=== PATIENT | female | born 1965 | race Caucasian/White ===

== ENCOUNTER 2019-07-27 08:03 | Emergency (ER) | payer OTHER ==
[~2019-07-27] VITALS: Ht 157.5 cm; Wt 99.8 kg
--- OUTSIDE RECORDS SUMMARY | ~2019-07-27 | XMS | Encounter Summary ---
Demographics + + + | Address | [address] | | | [place] [address] | + + + | Home Phone | | + + + | Preferred Language | Unknown | + + + | Marital Status | Unknown | + + + | Mandaen Affiliation | Unknown | + + + | Race | Unknown | + + + | Ethnic Group | Unknown | + + + Author + + + | Author | [facility] | | | and [place] | + + + | Organization | [facility] | | | and [place] | + + + | Address | Unknown | + + + | Phone | Unavailable | + + + Care Team Providers + +------+ + | Care Ergonomist Name | Role | Phone | + +------+ + PCP | Unavailable | + +------+ + Encounter Details +--------+ + + + + | Date | Type | Department | Care Team | Description | +--------+ + + + + | 07/17/ | Hospital | [facility] | [place] | | | 1999 | Encounter | MED CTR GENERIC OP | MD [address] [facility] | | | | | CONV DEPT [address] | [place], [place] | | | | | [place], | [address] | | | | | [place] [address] | | | | | | [phone] | | | +--------+ + + + + Social History + +-------+ +--------+------+ | Tobacco Use | Types | Packs/Day | Years | Date | | | | | Used | | + +-------+ +--------+------+ | Never Assessed | | | | | + +-------+ +--------+------+ + + + | Sex Assigned at | Date Recorded | | | | + + + | Not on file | | + + + + + + + | Job Start Date | Occupation | Industry | + + + + | Not on file | Not on file | Not on file | + + + + + + + + | Travel History | Travel Start | Travel End | + + + + + + | No recent travel history available. | + + documented as of this encounter Plan of Treatment Not on filedocumented as of this encounter Visit Diagnoses Not on filedocumented in this encounter"
--- OUTSIDE RECORDS SUMMARY | ~2019-07-27 | XMS | Encounter Summary ---
Demographics + + + | Address | [address] | | | [place] [address] | + + + | Home Phone | | + + + | Preferred Language | Unknown | + + + | Marital Status | Unknown | + + + | Latter-Day Affiliation | Unknown | + + + | Race | Unknown | + + + | Ethnic Group | Unknown | + + + Author + + + | Author | [facility] | | | and [place] | + + + | Organization | [facility] | | | and [place] | + + + | Address | Unknown | + + + | Phone | Unavailable | + + + Care Team Providers + +------+ + | Care Crawler Tractor Operator Name | Role | Phone | + +------+ + PCP | Unavailable | + +------+ + Encounter Details +--------+ + + + + | Date | Type | Department | Care Team | Description | +--------+ + + + + | 03/20/ | Hospital | [facility] | | | | 2008 - | Encounter | MED CTR CANCER | | | | | | CENTER [facility] [address] [place] | | | | 04/06/ | | [place] | | | | 2008 | | [address] | | | | | | [phone] | | | +--------+ + + + [...]
--- OUTSIDE RECORDS SUMMARY | ~2019-07-27 | XMS | Encounter Summary ---
Demographics + + + | Address | [address] | | | [place] [address] | + + + | Home Phone | | + + + | Preferred Language | Unknown | + + + | Marital Status | Unknown | + + + | Hindu Affiliation | Unknown | + + + | Race | Unknown | + + + | Ethnic Group | Unknown | + + + Author + + + | Author | [facility] | | | and [place] | + + + | Organization | [facility] | | | and [place] | + + + | Address | Unknown | + + + | Phone | Unavailable | + + + Care Team Providers + +------+ + | Care Refinery Operator Reforming Unit Name | Role | Phone | + +------+ + PCP | Unavailable | + +------+ + Encounter Details +--------+ + + + + | Date | Type | Department | Care Team | Description | +--------+ + + + + | 05/18/ | Hospital | [facility] | | | | 2001 - | Encounter | MED CTR CANCER | | | | | | CENTER [facility] [place] | | | | 08/16/ | | [place] | | | | 2001 | | [address] | | | | | | [phone] | | | +--------+ + + + [...]
--- OUTSIDE RECORDS SUMMARY | ~2019-07-27 | XMS | Encounter Summary ---
Demographics + + + | Address | [address] | | | [place] [address] | + + + | Home Phone | | + + + | Preferred Language | Unknown | + + + | Marital Status | Unknown | + + + | Nondenominational Affiliation | Unknown | + + + | Race | Unknown | + + + | Ethnic Group | Unknown | + + + Author + + + | Author | [facility] | | | and [place] | + + + | Organization | [facility] | | | and [place] | + + + | Address | Unknown | + + + | Phone | Unavailable | + + + Care Team Providers + +------+ + | Care Fisher Trawl Net Name | Role | Phone | + +------+ + PCP | Unavailable | + +------+ + Encounter Details +--------+ + + + + | Date | Type | Department | Care Team | Description | +--------+ + + + + | 06/04/ | Hospital | [facility] | | | | 2005 - | Encounter | MED CTR CANCER | | | | | | CENTER [address] | | | | 09/02/ | | [place] | | | | 2005 | | [address] | | | | | | [phone] | | | +--------+ + + + [...]
--- OUTSIDE RECORDS SUMMARY | ~2019-07-27 | XMS | Encounter Summary ---
Demographics + + + | Address | [address] | | | [place] [address] | + + + | Home Phone | | + + + | Preferred Language | Unknown | + + + | Marital Status | Unknown | + + + | Mandaen Affiliation | Unknown | + + + | Race | Unknown | + + + | Ethnic Group | Unknown | + + + Author + + + | Author | [facility] | | | and [place] | + + + | Organization | [facility] | | | and [place] | + + + | Address | Unknown | + + + | Phone | Unavailable | + + + Care Team Providers + +------+ + | Care Wet Wash Assembler Name | Role | Phone | + +------+ + PCP | Unavailable | + +------+ + Encounter Details +--------+ + + + + | Date | Type | Department | Care Team | Description | +--------+ + + + + | 03/20/ | Hospital | [facility] | | | | 2008 - | Encounter | MED CTR CANCER | | | | | | CENTER [facility] [place] | | | | 04/06/ | | [place] | | | | 2008 | | [address] | | | | | | [phone] | | | +--------+ + + + [...]
--- OUTSIDE RECORDS SUMMARY | ~2019-07-27 | XMS | Encounter Summary ---
Demographics + + + | Address | [address] | | | [place] [address] | + + + | Home Phone | | + + + | Preferred Language | Unknown | + + + | Marital Status | Unknown | + + + | Cheondoism Affiliation | Unknown | + + + | Race | Unknown | + + + | Ethnic Group | Unknown | + + + Author + + + | Author | [facility] | | | and [place] | + + + | Organization | [facility] | | | and [place] | + + + | Address | Unknown | + + + | Phone | Unavailable | + + + Care Team Providers + +------+ + | Care Redrying Machine Operator Name | Role | Phone | + +------+ + PCP | Unavailable | + +------+ + Encounter Details +--------+ + + + + | Date | Type | Department | Care Team | Description | +--------+ + + + + | 05/07/ | Hospital | [facility] | | | | 2006 | Encounter | MED CTR CANCER | | | | | | CENTER [address] | | | | | | [place] | | | | | | [address] | | | | | | [phone] | | | +--------+ + + + [...]
--- OUTSIDE RECORDS SUMMARY | ~2019-07-27 | XMS | Encounter Summary ---
Demographics + + + | Address | [address] | | | [place] [address] | + + + | Home Phone | | + + + | Preferred Language | Unknown | + + + | Marital Status | Unknown | + + + | Protestant Affiliation | Unknown | + + + | Race | Unknown | + + + | Ethnic Group | Unknown | + + + Author + + + | Author | [facility] | | | and [place] | + + + | Organization | [facility] | | | and [place] | + + + | Address | Unknown | + + + | Phone | Unavailable | + + + Care Team Providers + +------+ + | Care Tumblers Supervisor Name | Role | Phone | + +------+ + PCP | Unavailable | + +------+ + Encounter Details +--------+ + + + + | Date | Type | Department | Care Team | Description | +--------+ + + + + | 11/06/ | Hospital | [facility] | | | | 2005 - | Encounter | MED CTR GENERIC OP | | | | | | CONV DEPT [address] | | | | 12/05/ | | [place], | | | | 2005 | | [place] [address] | | | | | | [phone] | | | +--------+ + + + [...]
--- OUTSIDE RECORDS SUMMARY | ~2019-07-27 | XMS | Clinical Summary ---
Demographics + + + | Address | [address] | | | [place] [address] | + + + | Home Phone | | + + + | Preferred Language | Unknown | + + + | Marital Status | Unknown | + + + | Yazdanism Affiliation | Unknown | + + + | Race | Unknown | + + + | Ethnic Group | Unknown | + + + Author + + + | Author | [facility] | | | and [place] | + + + | Organization | [facility] | | | and [place] | + + + | Address | Unknown | + + + | Phone | Unavailable | + + + Care Team Providers + +------+ + | Care Buffer Inflated Pad Name | Role | Phone | + +------+ + PCP | Unavailable | + +------+ + Allergies Not on File Medications Not on file Active Problems Not on file Social History + +-------+ +--------+------+ | Tobacco [...] recent travel history available. | + + Last Filed Vital Signs Not on file Plan of Treatment + + + + + | Health Maintenance | Due Date | Last Done | Comments | + + + + + | Vaccine: | | | | | Dtap/Tdap/Td (1 - | 2 | | | | Tdap) | | | | + + + + + | Cervical Cancer | | | | | Screening (Pap) | 3 | | | + + + + + | Vaccine: Zoster (1 | | | | | of 2) | 3 | | | + + + + + | Breast Cancer | | | | | Screening | 8 | | | + + + + + | Vaccine: Influenza | | | | | (#1) | 9 | | | + + + + + Results Not on filefrom Last 3 Months"
--- OUTSIDE RECORDS SUMMARY | ~2019-07-27 | XMS | Encounter Summary ---
Demographics + + + | Address | [address] | | | [place] [address] | + + + | Home Phone | | + + + | Preferred Language | Unknown | + + + | Marital Status | Unknown | + + + | Restorationism Affiliation | Unknown | + + + | Race | Unknown | + + + | Ethnic Group | Unknown | + + + Author + + + | Author | [facility] | | | and [place] | + + + | Organization | [facility] | | | and [place] | + + + | Address | Unknown | + + + | Phone | Unavailable | + + + Care Team Providers + +------+ + | Care Stock Digger Name | Role | Phone | + +------+ + PCP | Unavailable | + +------+ + Encounter Details +--------+ + + + + | Date | Type | Department | Care Team | Description | +--------+ + + + + | 07/17/ | Hospital | [facility] | [place] | | | 1999 | Encounter | MED CTR GENERIC OP | MD [address] [facility] | | | | | CONV DEPT [address] | [place], [place] | | | | | [place], | [address] | | | | | [place] [address] | | | | | | [phone] | | | +--------+ + + + [...]
--- OUTSIDE RECORDS SUMMARY | ~2019-07-27 | XMS | Encounter Summary ---
Demographics + + + | Address | [address] | | | [place] [address] | + + + | Home Phone | | + + + | Preferred Language | Unknown | + + + | Marital Status | Unknown | + + + | Faith Affiliation | Unknown | + + + | Race | Unknown | + + + | Ethnic Group | Unknown | + + + Author + + + | Author | [facility] | | | and [place] | + + + | Organization | [facility] | | | and [place] | + + + | Address | Unknown | + + + | Phone | Unavailable | + + + Care Team Providers + +------+ + | Care Shuttle Fitting Supervisor Name | Role | Phone | + +------+ + PCP | Unavailable | + +------+ + Encounter Details +--------+ + + + + | Date | Type | Department | Care Team | Description | +--------+ + + + + | 06/02/ | Hospital | [facility] | | | | 2002 - | Encounter | MED CTR CANCER | | | | | | CENTER [facility] | | | | 09/02/ | | [place] | | | | 2002 | | [address] | | | | | | [phone] | | | +--------+ + + + [...]
--- OUTSIDE RECORDS SUMMARY | ~2019-07-27 | XMS | Encounter Summary ---
Demographics + + + | Address | [address] | | | [place] [address] | + + + | Home Phone | | + + + | Preferred Language | Unknown | + + + | Marital Status | Unknown | + + + | Scientologist Affiliation | Unknown | + + + | Race | Unknown | + + + | Ethnic Group | Unknown | + + + Author + + + | Author | [facility] | | | and [place] | + + + | Organization | [facility] | | | and [place] | + + + | Address | Unknown | + + + | Phone | Unavailable | + + + Care Team Providers + +------+ + | Care Manager Chemistry Name | Role | Phone | + +------+ + PCP | Unavailable | + +------+ + Encounter Details +--------+ + + + + | Date | Type | Department | Care Team | Description | +--------+ + + + + | 10/26/ | Hospital | [facility] | | | | 2003 - | Encounter | MED CTR CANCER | | | | | | CENTER [facility] | | | | 02/18/ | | [place] | | | | 2003 | | [address] | | | | | | [phone] | | | +--------+ + + + [...]
--- OUTSIDE RECORDS SUMMARY | ~2019-07-27 | XMS | Encounter Summary ---
Demographics + + + | Address | [address] | | | [place] [address] | + + + | Home Phone | | + + + | Preferred Language | Unknown | + + + | Marital Status | Unknown | + + + | Zoroastrianism Affiliation | Unknown | + + + | Race | Unknown | + + + | Ethnic Group | Unknown | + + + Author + + + | Author | [facility] | | | and [place] | + + + | Organization | [facility] | | | and [place] | + + + | Address | Unknown | + + + | Phone | Unavailable | + + + Care Team Providers + +------+ + | Care Horseradish Maker Name | Role | Phone | + +------+ + PCP | Unavailable | + +------+ + Encounter Details +--------+ + + + + | Date | Type | Department | Care Team | Description | +--------+ + + + + | 10/26/ | Hospital | [facility] | | | | 2003 - | Encounter | MED CTR CANCER | | | | | | CENTER [facility] | | | | 02/18/ | | [place] | | | | 2003 | | [address] | | | | | | [phone] | | | +--------+ + + + [...]
--- OUTSIDE RECORDS SUMMARY | ~2019-07-27 | XMS | Encounter Summary ---
Demographics + + + | Address | [address] | | | [place] [address] | + + + | Home Phone | | + + + | Preferred Language | Unknown | + + + | Marital Status | Unknown | + + + | Scientology Affiliation | Unknown | + + + | Race | Unknown | + + + | Ethnic Group | Unknown | + + + Author + + + | Author | [facility] | | | and [place] | + + + | Organization | [facility] | | | and [place] | + + + | Address | Unknown | + + + | Phone | Unavailable | + + + Care Team Providers + +------+ + | Care Weir Fisher Name | Role | Phone | + +------+ + PCP | Unavailable | + +------+ + Encounter Details +--------+ + + + + | Date | Type | Department | Care Team | Description | +--------+ + + + + | 04/08/ | Hospital | [facility] | | | | 2003 - | Encounter | MED CTR CANCER | | | | | | CENTER [address] | | | | 07/12/ | | [place] | | | | 2003 | | [address] | | | | | | [phone] | | | +--------+ + + + [...]
--- OUTSIDE RECORDS SUMMARY | ~2019-07-27 | XMS | Encounter Summary ---
Demographics + + + | Address | [address] | | | [place] [address] | + + + | Home Phone | | + + + | Preferred Language | Unknown | + + + | Marital Status | Unknown | + + + | Sikhism Affiliation | Unknown | + + + | Race | Unknown | + + + | Ethnic Group | Unknown | + + + Author + + + | Author | [facility] | | | and [place] | + + + | Organization | [facility] | | | and [place] | + + + | Address | Unknown | + + + | Phone | Unavailable | + + + Care Team Providers + +------+ + | Care Spring Encaser Name | Role | Phone | + +------+ + PCP | Unavailable | + +------+ + Encounter Details +--------+ + + + + | Date | Type | Department | Care Team | Description | +--------+ + + + + | 05/07/ | Hospital | [facility] | | | | 2006 | Encounter | MED CTR CANCER | | | | | | CENTER [address] | | | | | | [place] | | | | | | [address] | | | | | | [phone] | | | +--------+ + + + [...]
--- OUTSIDE RECORDS SUMMARY | ~2019-07-27 | XMS | Encounter Summary ---
Demographics + + + | Address | [address] | | | [place] [address] | + + + | Home Phone | | + + + | Preferred Language | Unknown | + + + | Marital Status | Unknown | + + + | Zoroastrianism Affiliation | Unknown | + + + | Race | Unknown | + + + | Ethnic Group | Unknown | + + + Author + + + | Author | [facility] | | | and [place] | + + + | Organization | [facility] | | | and [place] | + + + | Address | Unknown | + + + | Phone | Unavailable | + + + Care Team Providers + +------+ + | Care Horse Trekking Guide Name | Role | Phone | + +------+ + PCP | Unavailable | + +------+ + Encounter Details +--------+ + + + + | Date | Type | Department | Care Team | Description | +--------+ + + + + | 10/23/ | Hospital | [facility] | | | | 2006 - | Encounter | MED CTR CANCER | | | | | | CENTER [facility] | | | | 11/04/ | | [place] | | | | 2006 | | [address] | | | | | | [phone] | | | +--------+ + + + [...]
--- OUTSIDE RECORDS SUMMARY | ~2019-07-27 | XMS | Encounter Summary ---
Demographics + + + | Address | [address] | | | [place] [address] | + + + | Home Phone | | + + + | Preferred Language | Unknown | + + + | Marital Status | Unknown | + + + | Episcopalian Affiliation | Unknown | + + + | Race | Unknown | + + + | Ethnic Group | Unknown | + + + Author + + + | Author | [facility] | | | and [place] | + + + | Organization | [facility] | | | and [place] | + + + | Address | Unknown | + + + | Phone | Unavailable | + + + Care Team Providers + +------+ + | Care Clothing Pattern Preparer Name | Role | Phone | + +------+ + PCP | Unavailable | + +------+ + Encounter Details +--------+ + + + + | Date | Type | Department | Care Team | Description | +--------+ + + + + | 11/11/ | Hospital | [facility] | | | | 2007 - | Encounter | MED CTR CANCER | | | | | | CENTER [address] | | | | 12/05/ | | [place] | | | | 2007 | | [address] | | | | | | [phone] | | | +--------+ + + + [...]
--- OUTSIDE RECORDS SUMMARY | ~2019-07-27 | XMS | Encounter Summary ---
Demographics + + + | Address | [address] | | | [place] [address] | + + + | Home Phone | | + + + | Preferred Language | Unknown | + + + | Marital Status | Unknown | + + + | Nondenominational Affiliation | Unknown | + + + | Race | Unknown | + + + | Ethnic Group | Unknown | + + + Author + + + | Author | [facility] | | | and [place] | + + + | Organization | [facility] | | | and [place] | + + + | Address | Unknown | + + + | Phone | Unavailable | + + + Care Team Providers + +------+ + | Care Master Of Ceremonies Name | Role | Phone | + +------+ + PCP | Unavailable | + +------+ + Encounter Details +--------+ + + + + | Date | Type | Department | Care Team | Description | +--------+ + + + + | 10/31/ | Hospital | [facility] | | | | 2004 - | Encounter | MED CTR GENERIC OP | | | | | | CONV DEPT [address] | | | | 01/29/ | | [place], | | | | 2004 | | [place] [address] | | | | | | [phone] | | | +--------+ + + + [...]
--- OUTSIDE RECORDS SUMMARY | ~2019-07-27 | XMS | Encounter Summary ---
Demographics + + + | Address | [address] | | | [place] [address] | + + + | Home Phone | | + + + | Preferred Language | Unknown | + + + | Marital Status | Unknown | + + + | Anglican Affiliation | Unknown | + + + | Race | Unknown | + + + | Ethnic Group | Unknown | + + + Author + + + | Author | [facility] | | | and [place] | + + + | Organization | [facility] | | | and [place] | + + + | Address | Unknown | + + + | Phone | Unavailable | + + + Care Team Providers + +------+ + | Care Flatwork Finisher Name | Role | Phone | + +------+ + PCP | Unavailable | + +------+ + Encounter Details +--------+ + + + + | Date | Type | Department | Care Team | Description | +--------+ + + + + | 06/04/ | Hospital | [facility] | | | | 2005 - | Encounter | MED CTR CANCER | | | | | | CENTER [address] | | | | 09/02/ | | [place] | | | | 2005 | | [address] | | | | | | [phone] | | | +--------+ + + + [...]
--- OUTSIDE RECORDS SUMMARY | ~2019-07-27 | XMS | Encounter Summary ---
Demographics + + + | Address | [address] | | | [place] [address] | + + + | Home Phone | | + + + | Preferred Language | Unknown | + + + | Marital Status | Unknown | + + + | Mandaeism Affiliation | Unknown | + + + | Race | Unknown | + + + | Ethnic Group | Unknown | + + + Author + + + | Author | [facility] | | | and [place] | + + + | Organization | [facility] | | | and [place] | + + + | Address | Unknown | + + + | Phone | Unavailable | + + + Care Team Providers + +------+ + | Care Fraud Investigator Name | Role | Phone | + +------+ + PCP | Unavailable | + +------+ + Encounter Details +--------+ + + + + | Date | Type | Department | Care Team | Description | +--------+ + + + + | 11/11/ | Hospital | [facility] | | | | 2007 - | Encounter | MED CTR CANCER | | | | | | CENTER [address] | | | | 12/05/ | | [place] | | | | 2007 | | [address] | | | | | | [phone] | | | +--------+ + + + [...]
--- OUTSIDE RECORDS SUMMARY | ~2019-07-27 | XMS | Encounter Summary ---
Demographics + + + | Address | [address] | | | [place] [address] | + + + | Home Phone | | + + + | Preferred Language | Unknown | + + + | Marital Status | Unknown | + + + | Rastafarian Affiliation | Unknown | + + + | Race | Unknown | + + + | Ethnic Group | Unknown | + + + Author + + + | Author | [facility] | | | and [place] | + + + | Organization | [facility] | | | and [place] | + + + | Address | Unknown | + + + | Phone | Unavailable | + + + Care Team Providers + +------+ + | Care Media Center Director School Name | Role | Phone | + +------+ + PCP | Unavailable | + +------+ + Encounter Details +--------+ + + + + | Date | Type | Department | Care Team | Description | +--------+ + + + + | 11/06/ | Hospital | [facility] | | | | 2005 - | Encounter | MED CTR GENERIC OP | | | | | | CONV DEPT [address] | | | | 12/05/ | | [place], | | | | 2005 | | [place] [address] | | | | | | [phone] | | | +--------+ + + + [...]
--- OUTSIDE RECORDS SUMMARY | ~2019-07-27 | XMS | Encounter Summary ---
Demographics + + + | Address | [address] | | | [place] [address] | + + + | Home Phone | | + + + | Preferred Language | Unknown | + + + | Marital Status | Unknown | + + + | Presybeterian Affiliation | Unknown | + + + | Race | Unknown | + + + | Ethnic Group | Unknown | + + + Author + + + | Author | [facility] | | | and [place] | + + + | Organization | [facility] | | | and [place] | + + + | Address | Unknown | + + + | Phone | Unavailable | + + + Care Team Providers + +------+ + | Care Tire Recapper Name | Role | Phone | + +------+ + PCP | Unavailable | + +------+ + Encounter Details +--------+ + + + + | Date | Type | Department | Care Team | Description | +--------+ + + + + | 10/31/ | Hospital | [facility] | | | | 2004 - | Encounter | MED CTR GENERIC OP | | | | | | CONV DEPT [address] | | | | 01/29/ | | [place], | | | | 2004 | | [place] [address] | | | | | | [phone] | | | +--------+ + + + [...]
--- OUTSIDE RECORDS SUMMARY | ~2019-07-27 | XMS | Encounter Summary ---
Demographics + + + | Address | [address] | | | [place] [address] | + + + | Home Phone | | + + + | Preferred Language | Unknown | + + + | Marital Status | Unknown | + + + | Latter-Day Affiliation | Unknown | + + + | Race | Unknown | + + + | Ethnic Group | Unknown | + + + Author + + + | Author | [facility] | | | and [place] | + + + | Organization | [facility] | | | and [place] | + + + | Address | Unknown | + + + | Phone | Unavailable | + + + Care Team Providers + +------+ + | Care Ledger Poster Name | Role | Phone | + +------+ + PCP | Unavailable | + +------+ + Encounter Details +--------+ + + + + | Date | Type | Department | Care Team | Description | +--------+ + + + + | 08/29/ | Hospital | [facility] | | | | 2001 - | Encounter | MED CTR CANCER | | | | | | CENTER [address] | | | | 12/26/ | | [place] | | | | 2002 | | [address] | | | | | | [phone] | | | +--------+ + + + [...]
--- OUTSIDE RECORDS SUMMARY | ~2019-07-27 | XMS | Encounter Summary ---
Demographics + + + | Address | [address] | | | [place] [address] | + + + | Home Phone | | + + + | Preferred Language | Unknown | + + + | Marital Status | Unknown | + + + | Mu-Ism Affiliation | Unknown | + + + | Race | Unknown | + + + | Ethnic Group | Unknown | + + + Author + + + | Author | [facility] | | | and [place] | + + + | Organization | [facility] | | | and [place] | + + + | Address | Unknown | + + + | Phone | Unavailable | + + + Care Team Providers + +------+ + | Care Seismic Survey Assistant Name | Role | Phone | + +------+ + PCP | Unavailable | + +------+ + Encounter Details +--------+ + + + + | Date | Type | Department | Care Team | Description | +--------+ + + + + | 10/31/ | Hospital | [facility] | | | | 2004 - | Encounter | MED CTR GENERIC OP | | | | | | CONV DEPT [address] | | | | 01/29/ | | [place], | | | | 2004 | | [place] [address] | | | | | | [phone] | | | +--------+ + + + [...]
--- OUTSIDE RECORDS SUMMARY | ~2019-07-27 | XMS | Clinical Summary ---
Demographics + + + | Address | [address] | | | [place] [address] | + + + | Home Phone | | + + + | Preferred Language | Unknown | + + + | Marital Status | Unknown | + + + | Nondenominational Affiliation | Unknown | + + + | Race | Unknown | + + + | Ethnic Group | Unknown | + + + Author + + + | Author | [facility] | | | and [place] | + + + | Organization | [facility] | | | and [place] | + + + | Address | Unknown | + + + | Phone | Unavailable | + + + Care Team Providers + +------+ + | Care Law Writer Name | Role | Phone | + [...]
--- OUTSIDE RECORDS SUMMARY | ~2019-07-27 | XMS | Encounter Summary ---
Demographics + + + | Address | [address] | | | [place] [address] | + + + | Home Phone | | + + + | Preferred Language | Unknown | + + + | Marital Status | Unknown | + + + | Uatsdin Affiliation | Unknown | + + + | Race | Unknown | + + + | Ethnic Group | Unknown | + + + Author + + + | Author | [facility] | | | and [place] | + + + | Organization | [facility] | | | and [place] | + + + | Address | Unknown | + + + | Phone | Unavailable | + + + Care Team Providers + +------+ + | Care Warehouse Trainer Name | Role | Phone | + +------+ + PCP | Unavailable | + +------+ + Encounter Details +--------+ + + + + | Date | Type | Department | Care Team | Description | +--------+ + + + + | 04/08/ | Hospital | [facility] | | | | 2003 - | Encounter | MED CTR CANCER | | | | | | CENTER [address] | | | | 07/12/ | | [place] | | | | 2003 | | [address] | | | | | | [phone] | | | +--------+ + + + [...]
--- OUTSIDE RECORDS SUMMARY | ~2019-07-27 | XMS | Encounter Summary ---
Demographics + + + | Address | [address] | | | [place] [address] | + + + | Home Phone | | + + + | Preferred Language | Unknown | + + + | Marital Status | Unknown | + + + | Mu-Ism Affiliation | Unknown | + + + | Race | Unknown | + + + | Ethnic Group | Unknown | + + + Author + + + | Author | [facility] | | | and [place] | + + + | Organization | [facility] | | | and [place] | + + + | Address | Unknown | + + + | Phone | Unavailable | + + + Care Team Providers + +------+ + | Care Crate Opener Name | Role | Phone | + +------+ + PCP | Unavailable | + +------+ + Encounter Details +--------+ + + + + | Date | Type | Department | Care Team | Description | +--------+ + + + + | 09/12/ | Hospital | [facility] | | | | 2008 - | Encounter | MED CTR CANCER | | | | | | CENTER [address] | | | | 10/07/ | | [place] | | | | 2008 | | [address] | | | | | | [phone] | | | +--------+ + + + [...]
--- OUTSIDE RECORDS SUMMARY | ~2019-07-27 | XMS | Encounter Summary ---
Demographics + + + | Address | [address] | | | [place] [address] | + + + | Home Phone | | + + + | Preferred Language | Unknown | + + + | Marital Status | Unknown | + + + | Christianity Affiliation | Unknown | + + + | Race | Unknown | + + + | Ethnic Group | Unknown | + + + Author + + + | Author | [facility] | | | and [place] | + + + | Organization | [facility] | | | and [place] | + + + | Address | Unknown | + + + | Phone | Unavailable | + + + Care Team Providers + +------+ + | Care Kelp Gatherer Name | Role | Phone | + +------+ + PCP | Unavailable | + +------+ + Encounter Details +--------+ + + + + | Date | Type | Department | Care Team | Description | +--------+ + + + + | 05/18/ | Hospital | [facility] | | | | 2001 - | Encounter | MED CTR CANCER | | | | | | CENTER [facility] [address] [place] | | | | 08/16/ | | [place] | | | | 2001 | | [address] | | | | | | [phone] | | | +--------+ + + + [...]
--- OUTSIDE RECORDS SUMMARY | ~2019-07-27 | XMS | Encounter Summary ---
Demographics + + + | Address | [address] | | | [place] [address] | + + + | Home Phone | | + + + | Preferred Language | Unknown | + + + | Marital Status | Unknown | + + + | Roman Catholic Affiliation | Unknown | + + + | Race | Unknown | + + + | Ethnic Group | Unknown | + + + Author + + + | Author | [facility] | | | and [place] | + + + | Organization | [facility] | | | and [place] | + + + | Address | Unknown | + + + | Phone | Unavailable | + + + Care Team Providers + +------+ + | Care Weather Clerk Name | Role | Phone | + +------+ + PCP | Unavailable | + +------+ + Encounter Details +--------+ + + + + | Date | Type | Department | Care Team | Description | +--------+ + + + + | 08/29/ | Hospital | [facility] | | | | 2001 - | Encounter | MED CTR CANCER | | | | | | CENTER [address] | | | | 12/26/ | | [place] | | | | 2002 | | [address] | | | | | | [phone] | | | +--------+ + + + [...]
--- OUTSIDE RECORDS SUMMARY | ~2019-07-27 | XMS | Encounter Summary ---
Demographics + + + | Address | [address] | | | [place] [address] | + + + | Home Phone | | + + + | Preferred Language | Unknown | + + + | Marital Status | Unknown | + + + | Mu-Ism Affiliation | Unknown | + + + | Race | Unknown | + + + | Ethnic Group | Unknown | + + + Author + + + | Author | [facility] | | | and [place] | + + + | Organization | [facility] | | | and [place] | + + + | Address | Unknown | + + + | Phone | Unavailable | + + + Care Team Providers + +------+ + | Care Gardener Name | Role | Phone | + +------+ + PCP | Unavailable | + +------+ + Encounter Details +--------+ + + + + | Date | Type | Department | Care Team | Description | +--------+ + + + + | 12/27/ | Hospital | [facility] | | | | 2002 - | Encounter | MED CTR CANCER | | | | | | CENTER [facility] [address] | | | | 05/04/ | | [place] | | | | 2002 | | [address] | | | | | | [phone] | | | +--------+ + + + [...]
--- OUTSIDE RECORDS SUMMARY | ~2019-07-27 | XMS | Encounter Summary ---
Demographics + + + | Address | [address] | | | [place] [address] | + + + | Home Phone | | + + + | Preferred Language | Unknown | + + + | Marital Status | Unknown | + + + | Oriental Orthodox Affiliation | Unknown | + + + | Race | Unknown | + + + | Ethnic Group | Unknown | + + + Author + + + | Author | [facility] | | | and [place] | + + + | Organization | [facility] | | | and [place] | + + + | Address | Unknown | + + + | Phone | Unavailable | + + + Care Team Providers + +------+ + | Care Button Bradder Name | Role | Phone | + +------+ + PCP | Unavailable | + +------+ + Encounter Details +--------+ + + + + | Date | Type | Department | Care Team | Description | +--------+ + + + + | 12/27/ | Hospital | [facility] | | | | 2002 - | Encounter | MED CTR CANCER | | | | | | CENTER [facility] [address] | | | | 05/04/ | | [place] | | | | 2002 | | [address] | | | | | | [phone] | | | +--------+ + + + [...]
--- OUTSIDE RECORDS SUMMARY | ~2019-07-27 | XMS | Encounter Summary ---
Demographics + + + | Address | [address] | | | [place] [address] | + + + | Home Phone | | + + + | Preferred Language | Unknown | + + + | Marital Status | Unknown | + + + | Yazidism Affiliation | Unknown | + + + | Race | Unknown | + + + | Ethnic Group | Unknown | + + + Author + + + | Author | [facility] | | | and [place] | + + + | Organization | [facility] | | | and [place] | + + + | Address | Unknown | + + + | Phone | Unavailable | + + + Care Team Providers + +------+ + | Care Internet Technology Manager Name | Role | Phone | + +------+ + PCP | Unavailable | + +------+ + Encounter Details +--------+ + + + + | Date | Type | Department | Care Team | Description | +--------+ + + + + | 05/01/ | Hospital | [facility] | | | | 2004 - | Encounter | MED CTR GENERIC OP | | | | | | CONV DEPT [address] | | | | 07/30/ | | [place], | | | | 2004 | | [place] [address] | | | | | [phone] | | | +--------+ + + + [...]
--- OUTSIDE RECORDS SUMMARY | ~2019-07-27 | XMS | Encounter Summary ---
Demographics + + + | Address | [address] | | | [place] [address] | + + + | Home Phone | | + + + | Preferred Language | Unknown | + + + | Marital Status | Unknown | + + + | Sikh Affiliation | Unknown | + + + | Race | Unknown | + + + | Ethnic Group | Unknown | + + + Author + + + | Author | [facility] | | | and [place] | + + + | Organization | [facility] | | | and [place] | + + + | Address | Unknown | + + + | Phone | Unavailable | + + + Care Team Providers + +------+ + | Care Mechanical Engineering Draftsperson Name | Role | Phone | + +------+ + PCP | Unavailable | + +------+ + Encounter Details +--------+ + + + + | Date | Type | Department | Care Team | Description | +--------+ + + + + | 06/02/ | Hospital | [facility] | | | | 2002 - | Encounter | MED CTR CANCER | | | | | | CENTER [facility] | | | | 09/02/ | | [place] | | | | 2002 | | [address] | | | | | | [phone] | | | +--------+ + + + [...]
--- OUTSIDE RECORDS SUMMARY | ~2019-07-27 | XMS | Encounter Summary ---
Demographics + + + | Address | [address] | | | [place] [address] | + + + | Home Phone | | + + + | Preferred Language | Unknown | + + + | Marital Status | Unknown | + + + | Congregation Affiliation | Unknown | + + + | Race | Unknown | + + + | Ethnic Group | Unknown | + + + Author + + + | Author | [facility] | | | and [place] | + + + | Organization | [facility] | | | and [place] | + + + | Address | Unknown | + + + | Phone | Unavailable | + + + Care Team Providers + +------+ + | Care Primer Powder Blender Wet Name | Role | Phone | + +------+ + PCP | Unavailable | + +------+ + Encounter Details +--------+ + + + + | Date | Type | Department | Care Team | Description | +--------+ + + + + | 10/23/ | Hospital | [facility] | | | | 2006 - | Encounter | MED CTR CANCER | | | | | | CENTER [facility] | | | | 11/04/ | | [place] | | | | 2006 | | [address] | | | | | | [phone] | | | +--------+ + + + [...]
--- OUTSIDE RECORDS SUMMARY | ~2019-07-27 | XMS | Encounter Summary ---
Demographics + + + | Address | [address] | | | [place] [address] | + + + | Home Phone [...] + + + | Author | [facility] | | | and [place] | + + + | Organization | [facility] | | | and [place] | + + + | Address | Unknown | + + + | Phone | Unavailable | + + + Care Team Providers + +------+ + | Care Basting Machine Operator Name | Role | Phone | + +------+ + PCP | Unavailable | + +------+ + Encounter Details +--------+ + + + + | Date | Type | Department | Care Team | Description | +--------+ + + + + | 05/01/ | Hospital | [facility] | | | | 2004 - | Encounter | MED CTR GENERIC OP | | | | | | CONV DEPT [address] | | | | 07/30/ | | [place], | | | | 2004 | | [place] [address] | | | | | | [phone] | | | +--------+ + + + [...]
--- OUTSIDE RECORDS SUMMARY | ~2019-07-27 | XMS | Encounter Summary ---
Demographics + + + | Address | [address] | | | [place] [address] | + + + | Home Phone | | + + + | Preferred Language | Unknown | + + + | Marital Status | Unknown | + + + | Mosque Affiliation | Unknown | + + + | Race | Unknown | + + + | Ethnic Group | Unknown | + + + Author + + + | Author | [facility] | | | and [place] | + + + | Organization | [facility] | | | and [place] | + + + | Address | Unknown | + + + | Phone | Unavailable | + + + Care Team Providers + +------+ + | Care Garden Tractor Mechanic Name | Role | Phone | + +------+ + PCP | Unavailable | + +------+ + Encounter Details +--------+ + + + + | Date | Type | Department | Care Team | Description | +--------+ + + + + | 09/12/ | Hospital | [facility] | | | | 2008 - | Encounter | MED CTR CANCER | | | | | | CENTER [address] | | | | 10/07/ | | [place] | | | | 2008 | | [address] | | | | | | [phone] | | | +--------+ + + + [...]
--- OUTSIDE RECORDS SUMMARY | ~2019-07-27 | XMS | Encounter Summary ---
Demographics + + + | Address | [address] | | | [place] [address] | + + + | Home Phone | | + + + | Preferred Language | Unknown | + + + | Marital Status | Unknown | + + + | Voodoo Affiliation | Unknown | + + + | Race | Unknown | + + + | Ethnic Group | Unknown | + + + Author + + + | Author | [facility] | | | and [place] | + + + | Organization | [facility] | | | and [place] | + + + | Address | Unknown | + + + | Phone | Unavailable | + + + Care Team Providers + +------+ + | Care J2Ee Java Developer Name | Role | Phone | + +------+ + PCP | Unavailable | + +------+ + Encounter Details +--------+ + + + + | Date | Type | Department | Care Team | Description | +--------+ + + + + | 10/31/ | Hospital | [facility] | | | | 2004 - | Encounter | MED CTR GENERIC OP | | | | | | CONV DEPT [address] | | | | 01/29/ | | [place], | | | | 2004 | | [place] [address] | | | | | [phone] | | | +--------+ + + + [...]
[~2019-07-27 08:03] MED LIST: ATENOLOL25 MG PO; LEVOTHYROXINE125 MCG PO; LISINOPRIL10 MG PO
[2019-07-27] MEDS ORDERED: NORCO 5-325 TA1 EACH PO (13:25)
== END 2019-07-27 13:58 | disposition home or self-care (01) ==
LOC: ED 08:03
DX: N28.89 Other specified disorders of kidney and ureter (principal); R31.9 Hematuria, unspecified; Z79.899 Other long term (current) drug therapy
CPT/HCPCS: 74178; 80053; 81001; 85025; 99284-25; J1885; Q9967

== ENCOUNTER 2019-11-04 19:37 | Emergency (ER) | payer OTHER ==
[~2019-11-04] VITALS: Ht 157.5 cm; Wt 83.0 kg
[~2019-11-04 19:37] MED LIST changes: +NORCO 5-325 TA1 EACH PO
--- OUTSIDE RECORDS SUMMARY | 2019-11-04 19:40 | XMS ---
PreManage Notification: HANK HER Security Finish Mill Operator Events No recent Security Events currently on file CRITERIA MET - KALLIEP CARE PROVIDERS Lissette Milner Current PAC PHONE: Unknown oromero Case or Yard Jacker Current PHONE: Unknown [facility] Other Current [facility] PHONE: Unknown Navdeep has no Care Guidelines for this patient. E.D. VISIT COUNT (12 MO.) 1 [facility] 2 GUSTAVO HillmanJayson TOTAL 3 NOTE: Visits indicate total known visits. ED/UCC VISIT TRACKING (12 MO.) 11/04/2019 19:37 [facility] [place] TYPE: Emergency COMPLAINT: - POTASSIUM PROBLEM 08/24/2019 18:16 [facility] TYPE: Emergency DIAGNOSES: 54703. abnormal labs . Malignant neoplasm of left kidney, except renal pelvis . Wedge compression fracture of second lumbar vertebra, init . Hyperkalemia . Hypercalcemia 07/27/2019 08:[address] [facility] [address] [facility] [place] TYPE: Emergency COMPLAINT: - BACK PAIN, NON INJ DIAGNOSES: - Other half-way (current) drug therapy - Other specified disorders of kidney and ureter - Low back pain - Hematuria, unspecified INPATIENT VISIT TRACKING (12 MO.) 08/24/2019 18:16 [facility] TYPE: Inpatient DIAGNOSES: 91200. Hyperkalemia 35838. Wedge compression fracture of second lumbar vertebra, init 10857. Hypercalcemia 32463. Malignant neoplasm of left kidney, except renal pelvis [email or web address]
[2019-11-04] MEDS ORDERED: OXYCODONE HCL5 MG (19:57)
[2019-11-04] MEDS ORDERED: LOVASTATIN20 MG (19:58)
[2019-11-04] MEDS ORDERED: FUROSEMIDE20 MG (19:58)
--- NOTE | 2019-11-05 16:37 | EKG ---
[facility] [address] [facility] [place] [address] Signed Sinus tachycardia with premature ventricular complexes or fusion complexes Left axis deviation Inferior-posterior infarct , age undetermined Anterolateral infarct , age undetermined Abnormal ECG No previous ECGs available Confirmed by KATHARINA GUNN MD ([id number]) on 11/05/2019 4:36:56 PM Electronically Signed By: KATHARINA GUNN MD 11/05/19 1637 PATIENT NAME: HANK HER ANTWAN Electrocardiogram DATE OF : 61 PHYSICIAN: KATHARINA GUNN MD REPORT #: [id number] REPORT IS CONFIDENTIAL AND NOT TO BE RELEASED WITHOUT AUTHORIZATION
--- NOTE | 2019-11-05 16:37 | EKG ---
[facility] [address] [place] [address] Signed Sinus tachycardia Left axis deviation Inferior infarct (cited on or before 04-NOV-2019) Possible Anterolateral infarct (cited on or before 04-NOV-2019) Abnormal ECG When compared with ECG of 04-NOV-2019 19:47, (Unconfirmed) fusion complexes are no longer present premature ventricular complexes are no longer present Questionable change in initial forces of Anterolateral leads Confirmed by KATHARINA GUNN MD ([id number]) on 11/05/2019 4:37:08 PM Electronically Signed By: KATHARINA GUNN MD 11/05/19 1637 PATIENT NAME: HANK HER ANTWAN Electrocardiogram DATE OF : 61 PHYSICIAN: KATHARINA GUNN MD REPORT #: [id number] REPORT IS CONFIDENTIAL AND NOT TO BE RELEASED WITHOUT AUTHORIZATION
== END 2019-11-04 23:27 | disposition home or self-care (01) ==
LOC: ED 19:37
DX: E87.5 Hyperkalemia (principal); E03.9 Hypothyroidism, unspecified; Z79.891 Long term (current) use of opiate analgesic; Z79.899 Other long term (current) drug therapy
CPT/HCPCS: 80053; 85025; 93005; 93010; 96360; 99285-25; J7030

== ENCOUNTER 2020-02-22 22:47 | Emergency (ER) | payer OTHER ==
[~2020-02-22] VITALS: Ht 157.5 cm; Wt 90.7 kg
[~2020-02-22 22:47] MED LIST changes: +FUROSEMIDE20 MG; +LOVASTATIN20 MG; +OXYCODONE HCL5 MG
--- OUTSIDE RECORDS SUMMARY | 2020-02-22 22:50 | XMS ---
PreManage Notification: HANK HER Security Head Rose Grower Events No recent Security Events currently on file CRITERIA MET - PDMP CARE PROVIDERS CAMRYN MA Physician Coiled Tubing Supervisor 11/07/2019-Current PHONE: [phone] Navdeep has no Care Guidelines for this patient. E.DJayson VISIT COUNT (12 MO.) 2 [facility] and [place] [address] GUSTAVO Dunne TOTAL 5 NOTE: Visits indicate total known visits. ED/UCC VISIT TRACKING (12 MO.) 02/22/2020 22:48 [facility] [place] TYPE: Emergency COMPLAINT: - STROKE SYPMTOMS 11/21/2019 12:12 [facility] TYPE: Emergency DIAGNOSES: [address]. [facility] 33 [address]. Hypotension, unspecified 01403. Acute kidney failure, unspecified 11/04/2019 19:37 [facility] [place] TYPE: Emergency COMPLAINT: - POTASSIUM PROBLEM DIAGNOSES: - longterm (current) use of opiate analgesic - Hypothyroidism, unspecified - Hyperkalemia - Other alf (current) drug therapy 08/24/2019 18:16 [facility] TYPE: Emergency DIAGNOSES: 52512. abnormal labs 70947. Malignant neoplasm of left kidney, except renal pelvis 88120. Wedge compression fracture of second lumbar vertebra, initial 93230. Hyperkalemia 60750. Hypercalcemia 07/27/2019 08:03 [facility] [place] TYPE: Emergency COMPLAINT: - BACK PAIN, NON INJ DIAGNOSES: - Other buttermaker (current) drug therapy - Other specified disorders of kidney and ureter - Low back pain - Hematuria, unspecified INPATIENT VISIT TRACKING (12 MO.) 11/21/2019 12:12 [facility] TYPE: General Medicine DIAGNOSES: 80119. Wedge compression fracture of second lumbar vertebra, initial 09765. Hyperuricemia without signs of inflammatory arthritis and top 43941. Malignant neoplasm of left kidney, except renal pelvis 50449. Anemia, unspecified 53813. Hypothyroidism, unspecified 74952. Hypercalcemia 25871. Hyperkalemia 37092. Acute kidney failure, unspecified 98173. Hypotension, unspecified 44057. Thyrotoxicosis, unspecified without thyrotoxic crisis or stor . Wedge compression fracture of first lumbar vertebra, initial . Malignant neoplasm of unspecified kidney, except renal pelvis 08/24/2019 18:16 [facility] TYPE: Inpatient DIAGNOSES: . Hyperkalemia . Wedge compression fracture of second lumbar vertebra, initial . Hypercalcemia . Malignant neoplasm of left kidney, except renal pelvis [email or web address]
[2020-02-22] MEDS ORDERED: OMEPRAZOLE20 MG PO (23:33)
[2020-02-22] MEDS ORDERED: IRON18 MG PO (23:34)
[2020-02-22] MEDS ORDERED: VITAMIN D21250 MCG PO (23:34)
[2020-02-22] MEDS ORDERED: ENOXAPARIN80 MG/0.8 SUB-Q (23:34)
[2020-02-23] MEDS ORDERED: DECADRON4 MG PO (00:13)
--- NOTE | 2020-02-23 18:07 | EKG ---
[facility] [address] [facility] [place] [address] Signed Sinus tachycardia Left axis deviation Low voltage QRS Inferior infarct (cited on or before 04-NOV-2019) Cannot rule out Anterior infarct (cited on or before 04-NOV-2019) Abnormal ECG When compared with ECG of 04-NOV-2019 21:27, Questionable change in initial forces of Anterolateral leads T wave inversion more evident in Inferior leads T wave inversion now evident in Anterior leads Confirmed by RANJANA SHAH DO ([id number]) on 02/23/2020 6:07:37 PM Electronically Signed By: RANJANA SHAH DO 02/23/20 1807 PATIENT NAME: HANK HER ANTWAN Electrocardiogram DATE OF : 61 PHYSICIAN: RANJANA SHAH DO REPORT #: [id number] REPORT IS CONFIDENTIAL AND NOT TO BE RELEASED WITHOUT AUTHORIZATION
== END 2020-02-23 00:29 | disposition home or self-care (01) ==
LOC: ED 22:47
DX: R29.810 Facial weakness (principal); C64.9 Malignant neoplasm of unspecified kidney, except renal pelvis; C79.31 Secondary malignant neoplasm of brain; E03.9 Hypothyroidism, unspecified; Z79.899 Other long term (current) drug therapy
CPT/HCPCS: 70450; 70496; 70498; 80053; 85025; 85610; 85730; 93005; 93010; 99285-25; J1100; Q9967

== ENCOUNTER 2020-05-06 11:57 | Observation (INO) | payer OTHER ==
[~2020-05-06] VITALS: Ht 157.5 cm; Wt 71.2 kg
--- OUTSIDE RECORDS SUMMARY | ~2020-05-06 | XMS | Encounter Summary ---
Demographics + + + | Address | [address] | | | [place] [address] | + + + | Home Phone | | + + + | Preferred Language | Unknown | + + + | Marital Status | Single | + + + | Alevism Affiliation | CHR | + + + | Race | White | + + + | Ethnic Group | Not or | + + + Author + + + | Author | [facility] | + + + | Organization | [facility] | + + + | Address | Unknown | + + + | Phone | Unavailable | + + + Support + + +---------+ + | Name | Relationship | Address | Phone | + + +---------+ + | William Talavera | ECON | Unknown | | + + +---------+ + Care Team Providers + +------+ + | Care Top Coater Name | Role | Phone | + +------+ + | Lsisette Martinez PA-C | PCP | | + +------+ + Encounter Details +--------+ + + + + | Date | Type | Department | Care Team | Description | +--------+ + + + + | 12/13/ | Pharmacy | Outpatient Retail | | | | 2020 | Visit | [facility] | | | | | | [address] | | | | | | [address] [place], [place] | | | | | | [address] | | | | | | [phone] | | | +--------+ + + + [...] in contact | No / Unsure | 12/12/2019 8:48 AM | | with someone who was [...] as of this encounter Plan of Treatment +--------+---------+ + + + | Date | Type | Specialty | Care Team | Description | +--------+---------+ + + + | 06/26/ | Office | Hematology & | Lissette Jones, | | | 2019 | Visit | Oncology | [address] | | | | | | [address] | | | | | | [place] | | | | | | [address] | | | | | | [phone] | | | | | | | | +--------+---------+ + + + documented as of this encounter Visit Diagnoses Not on filedocumented in this encounter"
--- OUTSIDE RECORDS SUMMARY | ~2020-05-06 | XMS | Encounter Summary ---
Demographics + + + | Address | [address] | | | [place] [address] | + + + | Home Phone | | + + + | Preferred Language | Unknown | + + + | Marital Status | Single | + + + | Sikhism Affiliation | CHR | + + + | Race | White | + + + | Ethnic Group | Not or | + + + Author + + + | Author | [facility] | + + + | Organization | [facility] | + + + | Address | Unknown | + + + | Phone | Unavailable | + + + Support + + +---------+ + | Name | Relationship | Address | Phone | + + +---------+ + | William Talavera | ECON | Unknown | | + + +---------+ + Care Team Providers + +------+ + | Care Fixture Repairer Fabricator Name | Role | Phone | + +------+ + | Lissette Martinez PA-C | PCP | | + +------+ + Reason for Visit + + + | Reason | Comments | + + + | Infusion | | + + + Chemotherapy (Routine) +--------+---------+ + + + + | Status | Reason | Specialty | Diagnoses / | Referred By | Referred To | | | | | Procedures | Contact | Contact | +--------+---------+ + + + + | Closed | Other | Hematology & | Diagnoses | Vuky, | Hem | | | | Oncology | Renal cell | Lissette, | Treatment | | | | | carcinoma of | [place] [address] [address] | [facility] [address] | | | | | left kidney | [place] | [address] | | | | | (HCC) | Ct | [facility] | | | | 09/19/19-05/08 | [place], | [facility] and | | | | | 12/2019 | [place] | Healing, | | | | | cycles 1-4 q | [phone] | [address] | | | | | 21 days | Phone: | [place], [place] | | | | | Nivolumab - | [phone] | [address] | | | | | Ipilimumab | Fax: | Phone: | | | | | - cycles | [phone] | [phone] | | | | | 5-14 q14 | | Fax: | | | | | days | | [phone] | | | | | Procedures | | | | | | | CO INJ | | | | | | | NIVOLUMAB 1 | | | | | | | MG CO INJ | | | | | | | IPILIMUMAB, | | | | | | | 1 MG CO | | | | | | | CHM,IV | | | | | | | INFSN,1 HR | | | | | | | CO CHM,IV | | | | | | | INFSN,ADDL | | | | | | | HR CO CHM | | | | | | | IV INFS EA | | | | | | | ADDL SQ | | | | | | | nivolumab | | | | | | | (OPDIVO) 260 | | | | | | | mg in | | | | | | | sodium | | | | | | | chloride | | | | | | | (NS) 0.9 % | | | | | | | IV | | | | | | | ipilimumab | | | | | | | (YERVOY) 85 | | | | | | | mg in sodium | | | | | | | chloride | | | | | | | (NS) 0.9 % | | | | | | | IV | | | +--------+---------+ + + + + Encounter Details +--------+ + + + + | Date | Type | Department | Care Team | Description | +--------+ + + + + | 10/10/ | Hospital | [facility] | Onc, Gen [address] | | | 2020 | Encounter | [facility] | [facility] | | [facility] [address] | [place] [address] | | | | | [facility] | | | | | [facility], | | | | | | [address] | | | | | | [place], [place] | | | | | | [address] | | | | | | [phone] | | | +--------+ + + + [...] + + documented as of this encounter Last Filed Vital Signs + + + + + | Vital Sign | Reading | Time Taken | Comments | + + + + + | Blood Pressure | 96/46 | 10/10/2019 2:10 PM | | | | | PST | | + + + + + | Pulse | 114 | 10/10/2019 2:10 PM | | | | | PST | | + + + + + | Temperature | 36.6 C (97.8 F) | 10/10/2019 12:29 PM | | | | | PST | | + + + + + | Respiratory Rate | 18 | 10/10/2019 2:10 PM | | | | | PST | | + + + + + | Oxygen Saturation | 100% | 10/10/2019 2:10 PM | | | | | PST | | + + + + + | Inhaled Oxygen | - | - | | | Concentration | | | | + + + + + | Weight | 86.6 kg (191 lb) | 10/10/2019 11:16 AM | | | | | PST | | + + + + + | Height | 160 cm (5' 3") | 10/10/2019 11:16 AM | | | | | PST | | + + + + + | Body Mass Index | 33.83 | 10/10/2019 11:16 AM | | | | | PST | | + + + + + documented in this encounter Functional Status + + + + | Functional Status | Response | Date of Assessment | + + + + | Because of a physical, mental, or emotional | No | 08/28/2019 | | condition, do you have serious difficulty | | | | doing errands alone such as visiting the | | | | doctor? | | | + + + + + + + + | Cognitive Status | Response | Date of Assessment | + + + + | Because of a physical, mental, or emotional | No | 08/28/2019 | | condition, do you have serious [...] + + documented as of this encounter Progress Notes Mary Trinidad RN - 10/10/2019 10:20 AM PSTChemotherapy Nurse Note Name: Tila Altman Date: 10/10/2019 Physician: Karen Allergies: Tila has No Known Allergies. Diagnosis: Clear cell carcinoma of kidney Significant Other: brother in law, elizabeth. Sister, William Nursing Assessment: Fever: no; Diarrhea:No Constipation: No SOB / Cough: no; Rash: no Edema: no; Mucositis: no; Urinary: no; Neuropathy: no; S/S Bleeding: no; Severity (1=Not at all, 2=A little, 3=Quite a bit, 4=Very much) Nausea and/or Vomitin nausea without emesis Fatigue: 2 tires easily Pain: 0 Narrative: Patient here for D1C2 Ipi/Nivo. 1232 Patient complains of tightness in her chest. Nivolumab nfusion stopped, flowers salesperson provid er, paged, fluids started, and infusion reactions meds given per protocol. 1242 vital signs stable. Provider, Nan Guan, recommended restarting nivolumab at lois f the rate while finishing bolus of NS. Patient tolerated remainder of Nivolumab infusion. PIV L AC. Labss drawn in starter appointment via PIV, sent to lab, results reviewed, and arthur gerber were met for treatment today. Positive blood return on IV line prior and after infu janice. Medication infused with 1000ml NS sidearm bag. Pt tolerated without incident. PIV d /c'd and intact. Pt Alert & Oriented x3, No acute distress and Mood & affect appropriate a nd discharged with family/security patrol driver and ambulatory. Refer to MAR and Onc Lines and Transfusions doc flowsheet for treatment details. 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) - Primary | + + documented in this encounter Administered Medications + +--------+ +-------+------+------+ | Medication Order | MAR | Action | Dose | Rate | Site | | | Action | Date | | | | + +--------+ +-------+------+------+ | diphenhydrAMINE (BENADRYL) | Given | 10/10/19 | 25 mg | | | | injection 25-50 mg 25-50 mg, | | 20 12:37 | | | | | intravenous, NEEDED, 1 dose, | | PM PST | | | | | Starting 10/10/19 at 1113, | | | | | | | Until Thu10/10/19 at 1237, | | | | | | | hypersensitivity or infusion | | | | | | | reaction | | | | | | + +--------+ +-------+------+------+ +---+---+ | | | +---+---+ + +-------+ +-------+---+---+ | famotidine (PEPCID) injection | Given | 10/10/19 | 20 mg | | | | 20 mg 20 mg, intravenous, | | 20 12:33 | | | | | NEEDED, 1 dose, Starting Mon | | PM PST | | | | | 10/10/19 at 1113, Until 10/10/19 | | | | | | | at 1233, hypersensitivity or | | | | | | | infusion reaction | | | | | | + +-------+ +-------+---+---+ +---+---+ | | | +---+---+ + +---------+ +-------+-------+---+ | ipilimumab (YERVOY) 85 mg in | New Bag | 10/10/19 | 85 mg | 134 | | | sodium chloride (NS) 0.9 % IV 85 | | 20 1:41 | | mL/hr | | | mg (rounded from 86.6 mg = 1 | | PM PST | | | | | mg/kg | | | | | | | 86.6 kg Treatment plan recorded | | | | | | | weight), intravenous, Administer | | | | | | | over 30 Minutes, ONCE, 1 dose, | | | | | | | 10/10/19 at 1145, Administer | | | | | | | after nivolumab. Use a low | | | | | | | protein-binding in-line filter. | | | | | | | Flush with NS or D5W at the end | | | | | | | of the infusion., | | | | | | + +---------+ +-------+-------+---+ +---+---+ | | | +---+---+ + +---------+ +--------+-------+---+ | nivolumab (OPDIVO) 260 mg in | New Bag | 10/10/19 | 260 mg | 252 | | | sodium chloride (NS) 0.9 % IV | | 20 12:09 | | mL/hr | | | 260 mg (rounded from 259.8 mg = 3 | | PM PST | | | | | mg/kg | | | | | | | 86.6 kg Treatment plan recorded | | | | | | | weight), intravenous, Administer | | | | | | | over 30 Minutes, ONCE, 1 dose, | | | | | | | 10/10/19 at 1115, Administer | | | | | | | through a low protein binding | | | | | | | 0.22 micron in-line filter., | | | | | | + +---------+ +--------+-------+---+ +---+---+ | | | +---+---+ + +---------+ + +---+---+ | sodium chloride (NS) 0.9 % | New Bag | 10/10/19 | 1,000 mL | | | | bolus 1,000 mL 1,000 mL, | | 20 12:32 | | | | | intravenous, ONCE, 1 dose, Mon | | PM PST | | | | | 10/10/19 at 1400 | | | | | | + +---------+ + +---+---+ +---+---+ | | | +---+---+ documented in this encounter
--- OUTSIDE RECORDS SUMMARY | ~2020-05-06 | XMS | Encounter Summary ---
Demographics + + + | Address | [address] | | | [place] [address] | + + + | Home Phone | | + + + | Preferred Language | Unknown | + + + | Marital Status | Single | + + + | Yazdanism Affiliation | CHR | + + + | Race | White | + + + | Ethnic Group | Not or | + + + Author + + + | Organization | Unknown | + + + | Address | Unknown | + + + | Phone | Unavailable | + + + Support + + +---------+ + | Name | Relationship | Address | Phone | + + +---------+ + | William Talavera | ECON | Unknown | | + + +---------+ + Care Team Providers + +------+ + | Care Valve Lapper Name | Role | Phone | + +------+ + | Lissette Martinez PA-C PCP | | + +------+ + Encounter Details +--------+--------+ + + + | Date | Type | Department | Care Team | Description | +--------+--------+ + + + | 12/11/ | Travel | | | | | 2020 | | | | | +--------+--------+ + + + [...] | 2019 | Visit | Oncology | [address] | | | | | | [address] | | | | | | [place] | | | | | | [address] | | | | | | [phone] | | | | | | | | +--------+---------+ + + + documented as of this encounter Visit Diagnoses Not on filedocumented in this encounter"
--- OUTSIDE RECORDS SUMMARY | ~2020-05-06 | XMS | Encounter Summary ---
Demographics + + + | Address | [address] | | | [place] [address] | + + + | Home Phone [...] Author + + + | Author | [facility] | + + + | Organization | [facility] | + + + | Address | Unknown | + + + | Phone | Unavailable | + + + Support + + +---------+ + | Name | Relationship | Address | Phone | + + +---------+ + | William Talavera | ECON | Unknown | | + + +---------+ + Care Team Providers + +------+ + | Care Supervisor Curing Room Name | Role | Phone | + +------+ + | Lissette Martinez PA-C | PCP | | + +------+ + Reason for Visit + + + | Reason | Comments | + + + | Lab Draw | | + + + Encounter Details +--------+ + + + + | Date | Type | Department | Care Team | Description | +--------+ + + + + | 12/11/ | Clinical | Laboratory at [facility] | | Lab Draw | | 2020 | Support | [address] | | | | | Staff | [facility] | | | | | | and Healing, | | | | | | Building [address] | | | | | | [place], [place] | | | | | | [address] | | | | | | [phone] | | | +--------+ + + + [...] | 2019 | Visit | Oncology | [address] | | | | | | [address] | | | | | | [facility] [place] | | | | | | [address] | | | | | | [phone] | | | | | | | | +--------+---------+ + + + documented as of this encounter Procedures + +--------+ + + + | Procedure Name | Priori | Date/Time | Associated Diagnosis | Comments | | | ty | | | | + +--------+ + + + | FREE T4 - OLP | Routin | 12/12/2019 | Renal cell | Results for this | | | e | 9:08 AM | carcinoma of left | procedure are in the | | | | PDT | kidney (HCC) | results section. | + +--------+ + + + | TSH - OLP | Routin | 12/12/2019 | Renal cell | Results for this | | | e | 9:08 AM | carcinoma of left | procedure are in the | | | | PDT | kidney (HCC) | results section. | + +--------+ + + + | CORTISOL, SERUM - | Routin | 12/12/2019 | Renal cell | Results for this | | [facility] | e | 9:08 AM | carcinoma of left | procedure are in the | | | | PDT | kidney (HCC) | results section. | + +--------+ + + + | CBC AND AUTO DIFF - | Routin | 12/12/2019 | Renal cell | Results for this | | [facility] | e | 9:08 AM | carcinoma of left | procedure are in the | | | | PDT | kidney (HCC) | results section. | + +--------+ + + + | COMPLETE METABOLIC | Routin | 12/12/2019 | Renal cell | Results for this | | PANEL - OLP | e | 9:08 AM | carcinoma of left | procedure are in the | | | | PDT | kidney (HCC) | results section. | + +--------+ + + + | CBC WITH AUTO DIFF - | Routin | 12/12/2019 | Renal cell | Results for this | | [facility] | e | 9:08 AM | carcinoma of left | procedure are in the | | | | PDT | kidney (HCC) | results section. | + +--------+ + + + | [facility] - COMPLETE | Routin | 12/12/2019 | Renal cell | Results for this | | METABOLIC SET | e | 9:08 AM | carcinoma of left | procedure are in the | | | | PDT | kidney (HCC) | results section. | + +--------+ + + + | FREE T4 | Routin | 12/12/2019 | Renal cell | Results for this | | | e | 9:08 AM | carcinoma of left | procedure are in the | | | | PDT | kidney ([facility]) | results section. | + +--------+ + + + | TSH | Routin | 12/12/2019 | Renal cell | Results for this | | | e | 9:08 AM | carcinoma of left | procedure are in the | | | | PDT | kidney (HCC) | results section. | + +--------+ + + + | CORTISOL, SERUM | Routin | 12/12/2019 | Renal cell | Results for this | | | e | 9:08 AM | carcinoma of left | procedure are in the | | | | PDT | kidney (HCC) | results section. | + +--------+ + + + documented in this encounter Results CORTISOL, SERUM (12/12/2019 9:08 AM PDT) + +-------+ + + + | Component | Value | Ref Range | Performed | Pathologist | | | | | At | Signature | + +-------+ + + + | CORTISOL, | 21.4 | ug/dL | [facility] | | | TOTAL SERUM | | | LABORATORY | | | | | | SERVICES, | | | | | | CORE | | + +-------+ + + + + + | Specimen | + + | Blood - Blood | | (substance) | + + + + + | Narrative | Performed At | + + + | Reference Ranges: A.M. collect(7-9am) = 5.3-22.5 ug/dL P.M. | [facility] | | collect(3-5 pm) = 3.4-16.8 ug/dL | LABORATORY | | | [address] | + + + + + + + + | Performing | Address | City/State/Zipcode | Phone Number | | Organization | | | | + + + + + | [facility] | [address] | [place] [address] | | | [address] [place] | [address] | | | + + + + + FREE T4 (12/12/2019 9:08 AM PDT) + +-------+ + + + | Component | Value | Ref Range | Performed | Pathologist | | | | | At | Signature | + +-------+ + + + | FREE T4 | 1.0 | 0.6 - 1.2 ng/dL | [facility] | | | | | | LABORATORY | | | | | | SERVICES, | | | | | | CORE | | + +-------+ + + + + + | Specimen | + + | Blood - Blood | | (substance) | + + + + + + + | Performing | Address | City/State/Zipcode | Phone Number | | Organization | | | | + + + + + | [facility] | [address] | [place] [address] | | | SERVICES, CORE | [address] | | | + + + + + TSH (12/12/2019 9:08 AM PDT) + + + + + + | Component | Value | Ref Range | Performed | Pathologist | | | | | At | Signature | + + + + + + | TSH | 74.30 (H) | 0.50 - 5.07 | [facility] | | | | | mIU/L | LABORATORY | | | | | | SERVICES, | | | | | | CORE | | + + + + + + + + | Specimen | + + | Blood - Blood | | (substance) | + + + + + | Narrative | Performed At | + + + | TSH reference ranges are influenced by a variety of environmental | [facility] | | influences, age, gender and ethnicity. The supplied reference limits | LABORATORY | | are based on published values utilizing a similar TSH assay, and | SERVICES, CORE | | should be interpreted with caution. | | + + + + + + + + | Performing | Address | City/State/Zipcode | Phone Number | | Organization | | | | + + + + + | [facility] | [address] | [place] [address] | | | SERVICES, CORE | [address] | | | + + + + + [facility] - COMPLETE METABOLIC SET (12/12/2019 9:08 AM PDT) + +---------+ + + + | Component | Value | Ref Range | Performed | Pathologist | | | | | At | Signature | + +---------+ + + + | GLUCOSE, | 82 | 70 - 99 mg/dL | [facility] | | | PLASMA | | | LABORATORY | | | (LAB) | | | SERVICES, | | | | | | [facility] + | | | | | | HEALING | | + +---------+ + + + | BUN, PLASMA | 17 | 6 - 20 mg/dL | [facility] | | | (LAB) | | | LABORATORY | | | | | | SERVICES, | | | | | | [facility] + | | | | | | HEALING | | + +---------+ + + + | CREATININE | 1.09 | 0.60 - 1.10 | [facility] | | | PLASMA | | mg/dL | LABORATORY | | | (LAB) | | | SERVICES, | | | | | | [facility] | [facility] + | | | | | | HEALING | | + +---------+ + + + | EGFR | >60 | >60 mL/min | [facility] | | | - | | | LABORATORY | | | [place] | | | SERVICES, | | | | | | [facility] | [facility] + | | | | | | HEALING | | + +---------+ + + + | EGFR NON | 52 (L) | >60 mL/min | [facility] | | | -LISA | | | LABORATORY | | | [place] | | | SERVICES, | | | | | | [facility] | [facility] + | | | | | | HEALING | | + +---------+ + + + | SODIUM, | 142 | 136 - 145 | [facility] | | | PLASMA | | mmol/L | LABORATORY | | | (LAB) | | | SERVICES, | | | | | | [facility] | [facility] + | | | | | | HEALING | | + +---------+ + + + | POTASSIUM, | 3.6 | 3.4 - 5.0 | [facility] | | | PLASMA | | mmol/L | LABORATORY | | | (LAB) | | | SERVICES, | | | | | | [facility] | [facility] + | | | | | | HEALING | | + +---------+ + + + | CHLORIDE, | 110 (H) | 97 - 108 mmol/L | [facility] | | | PLASMA | | | LABORATORY | | | (LAB) | | | SERVICES, | | | | | | [facility] | [facility] + | | | | | | HEALING | | + +---------+ + + + | TOTAL CO2, | 22 | 21 - 32 mmol/L | [facility] | | | PLASMA | | | LABORATORY | | | (LAB) | | | SERVICES, | | | | | | [facility] | [facility] + | | | | | | HEALING | | + +---------+ + + + | CALCIUM, | 8.1 (L) | 8.6 - 10.2 | [facility] | | | PLASMA | | mg/dL | LABORATORY | | | (LAB) | | | SERVICES, | | | | | | [facility] | [facility] | [facility] + | | | | | | HEALING | | + +---------+ + + + | CALCIUM(ALB | 9.6 | 8.6 - 10.2 | [facility] | | | CORRECTED) | | mg/dL | LABORATORY | | | | | | SERVICES, | | | | | | [facility] + | | | | | | HEALING | | + +---------+ + + + | BILIRUBIN | 1.0 | 0.3 - 1.2 mg/dL | [facility] | | | TOTAL | | | LABORATORY | | | | | | SERVICES, | | | | | | [facility] | [facility] + | | | | | | HEALING | | + +---------+ + + + | TOTAL | 5.7 (L) | 6.4 - 8.2 g/dL | [facility] | | | PROTEIN, | | | LABORATORY | | | PLASMA | | | SERVICES, | | | (LAB) | | | [facility] | [facility] | | [facility] + | | | | | | HEALING | | + +---------+ + + + | ALBUMIN, | 2.1 (L) | 3.5 - 4.7 g/dL | [facility] | | | PLASMA | | | LABORATORY | | | (LAB) | | | SERVICES, | | | | | | [facility] | | [facility] + | | | | | | HEALING | | + +---------+ + + + | ALK PHOS | 89 | 42 - 98 U/L | [facility] | | | | | | LABORATORY | | | | | | SERVICES, | | | | | | [facility] | [facility] + | | | | | | HEALING | | + +---------+ + + + | AST(SGOT) | 36 | <=41 U/L | [facility] | | | | | | LABORATORY | | | | | | SERVICES, | | | | | | [facility] | | [facility] + | | | | | | HEALING | | + +---------+ + + + | ALT (SGPT) | 13 | <=60 U/L | [facility] | | | | | | LABORATORY | | | | | | SERVICES, | | | | | | [facility] | | [facility] + | | | | | | HEALING | | + +---------+ + + + | ANION GAP | 10 | 4 - 11 mmol/L | [facility] | | | | | | LABORATORY | | | | | | SERVICES, | | | | | | [facility] | [facility] + | | | | | | HEALING | | + +---------+ + + + | ANION | 14 (H) | 4 - 11 mmol/L | [facility] | | | GAP(ALB | | | LABORATORY | | | CORRECTED) | | | SERVICES, | | | | | | [facility] | | [facility] + | | | | | | HEALING | | + +---------+ + + + | POTASSIUM | No Hemo | | [facility] | | | CMNT | | | LABORATORY | | | | | | SERVICES, | | | | | | [facility] | | [facility] + | | | | | | HEALING | | + +---------+ + + + | BILI T CMNT | No Hemo | | [facility] | | | | | | LABORATORY | | | | | | SERVICES, | | | | | | [facility] | | [facility] + | | | | | | HEALING | | + +---------+ + + + | AST CMNT | No Hemo | | [facility] | | | | | | LABORATORY | | | | | | SERVICES, | | | | | | [facility] | | | [facility] + | | | | | | HEALING | | + +---------+ + + + | BUN/CREATIN | 16 | 8 - 25 | [facility] | | | INE RATIO | | | LABORATORY | | | | | | SERVICES, | | | | | | [facility] | | [facility] + | | | | | | HEALING | | + +---------+ + + + | GLOBULIN | 3.6 (H) | 2.3 - 3.5 gm/dL | [facility] | | | LVL | | | LABORATORY | | | | | | SERVICES, | | | | | | [facility] | | [facility] + | | | | | | HEALING | | + +---------+ + + + | ALBUMIN/NICOLETTE | 0.6 (L) | 0.7 - 2.8 | [facility] | | | BULIN RATIO | | | LABORATORY | | | | | | SERVICES, | | | | | | [facility] | | | | | [facility] + | | | | | | HEALING | | + +---------+ + + + + + | Specimen | + + | Blood - Blood | | (substance) | + + + + + | Narrative | Performed At | + + + | GFR is estimated using the MDRD equation recommended by the National | [facility] | | Kidney Disease Education Program. Estimated GFR Interpretive | LABORATORY | | Information: <60 mL/min/1.73 sq m Chronic Kidney | SERVICES, | | Disease <15 mL/min/1.73 sq m Kidney Failure | [facility] | | Estimated GFR greater than 60 mL/min/1.73 sq m is of limited clinical | HEALTH + | | value. The MDRD equation is not valid in the following situations: | HEALING | | - Patients under 18 years of age - Severe malnutrition or obesity | | | - Vegetarian diet - Rapidly changing kidney function - Amputees, | | | paraplegics, or other muscle-wasting diseases | | + + + + + + + + | Performing | Address | City/State/Zipcode | Phone Number | | Organization | | | | + + + + + | [facility] | [address] | [place] [address] | | | SERVICES, [facility] | | | | | [facility] + HEALING | | | | + + + + + CBC AND AUTO DIFF - [facility] (12/12/2019 9:08 AM PDT) + + + + + + | Component | Value | Ref Range | Performed | Pathologist | | | | | At | Signature | + + + + + + | WHITE CELL | 2.70 (L) | 3.50 - 10.80 | [facility] | | | COUNT | | K/cu mm | LABORATORY | | | | | | SERVICES, | | | | | | [facility] | [facility] + | | | | | | HEALING | | + + + + + + | RED CELL | 2.83 (L) | 4.00 - 5.20 | [facility] | | | COUNT | | M/cu mm | LABORATORY | | | | | | SERVICES, | | | | | | [facility] | | | [facility] + | | | | | | HEALING | | + + + + + + | HEMOGLOBIN | 8.2 (L) | 12.0 - 16.0 | [facility] | | | | | g/dL | LABORATORY | | | | | | SERVICES, | | | | | | [facility] | [facility] + | | | | | | HEALING | | + + + + + + | HEMATOCRIT | 27.7 (L) | 36.0 - 46.0 % | [facility] | | | | | | LABORATORY | | | | | | SERVICES, | | | | | | [facility] | [facility] + | | | | | | HEALING | | + + + + + + | MCV | 97.9 | 80.0 - 100.0 fL | [facility] | | | | | | LABORATORY | | | | | | SERVICES, | | | | | | [facility] | [facility] + | | | | | | HEALING | | + + + + + + | MCHC | 29.6 (L) | 32.0 - 36.0 | [facility] | | | | | g/dL | LABORATORY | | | | | | SERVICES, | | | | | | [facility] | [facility] + | | | | | | HEALING | | + + + + + + | RDW SD | 71.4 (H) | 35.1 - 46.3 fL | [facility] | | | | | | LABORATORY | | | | | | SERVICES, | | | | | | [facility] | [facility] + | | | | | | HEALING | | + + + + + + | PLATELET | 224 | 150 - 400 K/cu | [facility] | | | COUNT | | mm | LABORATORY | | | | | | SERVICES, | | | | | | [facility] | [facility] + | | | | | | HEALING | | + + + + + + | MPV | 8.7 (L) | 9.7 - 12.3 fL | [facility] | | | | | | LABORATORY | | | | | | SERVICES, | | | | | | [facility] | | [facility] + | | | | | | HEALING | | + + + + + + | NRBC% | 0.0 | 0.0 - 0.3 % | [facility] | | | | | | LABORATORY | | | | | | SERVICES, | | | | | | [facility] | [facility] + | | | | | | HEALING | | + + + + + + | NRBC# | 0.00 | 0.00 - 0.02 | [facility] | | | | | K/cu mm | LABORATORY | | | | | | SERVICES, | | | | | | [facility] | [facility] + | | | | | | HEALING | | + + + + + + | NEUTROPHIL | 67.8 | 50.0 - 70.0 % | [facility] | | | % | | | LABORATORY | | | | | | SERVICES, | | | | | | [facility] | [facility] + | | | | | | HEALING | | + + + + + + | LYMPHOCYTE | 12.6 (L) | 18.0 - 42.0 % | [facility] | | | % | | | LABORATORY | | | | | | SERVICES, | | | | | | [facility] | | [facility] + | | | | | | HEALING | | + + + + + + | MONOCYTE % | 10.0 (H) | 3.5 - 9.0 % | [facility] | | | | | | LABORATORY | | | | | | SERVICES, | | | | | | [facility] | [facility] + | | | | | | HEALING | | + + + + + + | EOS % | 8.1 (H) | 1.0 - 3.0 % | [facility] | | | | | | LABORATORY | | | | | | SERVICES, | | | | | | [facility] | [facility] + | | | | | | HEALING | | + + + + + + | BASO % | 1.1 | 0.0 - 2.0 % | [facility] | | | | | | LABORATORY | | | | | | SERVICES, | | | | | | [facility] | [facility] + | | | | | | HEALING | | + + + + + + | IG% | 0.4 | 0.0 - 1.0 % | [facility] | | | | | | LABORATORY | | | | | | SERVICES, | | | | | | [facility] | | [facility] + | | | | | | HEALING | | + + + + + + | NEUTROPHIL | 1.83 | 1.80 - 7.70 | [facility] | | | # | | K/cu mm | LABORATORY | | | | | | SERVICES, | | | | | | [facility] | [facility] + | | | | | | HEALING | | + + + + + + | NEUTROPHIL | 1.83Comment: Preliminary | 1.80 - 7.70 | [facility] | | | # Prelim | automated neutrophil | K/cu mm | LABORATORY | | | | result. Refer to | | SERVICES, | | | | Neutrophil # for final | | [facility] | | | | neutrophil result, which | | HEALTH + | | | | may differ from this | | HEALING | | | | preliminary value. | | | | + + + + + + | LYMPHOCYTE | 0.34 (L) | 1.00 - 4.80 | [facility] | | | # | | K/cu mm | LABORATORY | | | | | | SERVICES, | | | | | | [facility] | | [facility] + | | | | | | HEALING | | + + + + + + | MONOCYTE # | 0.27 | 0.10 - 0.90 | [facility] | | | | | K/cu mm | LABORATORY | | | | | | SERVICES, | | | | | | [facility] | | [facility] + | | | | | | HEALING | | + + + + + + | EOS # | 0.22 | 0.00 - 0.50 | [facility] | | | | | K/cu mm | LABORATORY | | | | | | SERVICES, | | | | | | [facility] | | [facility] + | | | | | | HEALING | | + + + + + + | BASO # | 0.03 | 0.00 - 0.10 | [facility] | | | | | K/cu mm | LABORATORY | | | | | | SERVICES, | | | | | | [facility] | | | | | [facility] + | | | | | | HEALING | | + + + + + + | IG# | 0.01 | 0.00 - 0.10 | [facility] | | | | | K/cu mm | LABORATORY | | | | | | SERVICES, | | | | | | [facility] | | | | [facility] + | | | | | | HEALING | | + + + + + + + + | Specimen | + + | Blood - Blood | | (substance) | + + + + + | Narrative | Performed At | + + + | Increased immature granulocytes (IG) define a left shift. Immature | [facility] | | granulocytes (IG) are an automated count of metamyelocytes, myelocytes | LABORATORY | | and promyelocytes. Bands are not included in the IG count. Bands are | SERVICES, | | included in the neutrophil count. 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
--- OUTSIDE RECORDS SUMMARY | ~2020-05-06 | XMS | Encounter Summary ---
Demographics + + + | Address | [address] | | | [place] [address] | + + + | Home Phone | | + + + | Preferred Language | Unknown | + + + | Marital Status | Single | + + + | Amish Affiliation | CHR | + + + | Race | White | + + + | Ethnic Group | Not or | + + + Author + + + | Author | [facility] | + + + | Organization | [facility] | + + + | Address | Unknown | + + + | Phone | Unavailable | + + + Support + + +---------+ + | Name | Relationship | Address | Phone | + + +---------+ + | William Talavera | ECON | Unknown | | + + +---------+ + Care Team Providers + +------+ + | Care Waiter Waitress Name | Role | Phone | + +------+ + | Lissette Martinez PA-C | PCP | | + +------+ + Encounter Details +--------+ + + + + | Date | Type | Department | Care Team | Description | +--------+ + + + + | 11/21/ | MyChart | [facility] ADMITTING | | Insurance | | 2020 | Encounter | [address] | | Requirements for | | | | [address] | | Authorization | | | | [place], [place] | | | | | | [address] | | | +--------+ + + + [...] in contact | No / Unsure | 11/21/2019 8:48 AM | | with someone who [...] | Office | Hematology & | Lissette Joens, | | | 2019 | Visit | Oncology | [address] | | | | | | [address] | | | | | | [place] | | | | | | [address] | | | | | | [phone] | | | | | | | | +--------+---------+ + + + documented as of this encounter Visit Diagnoses Not on filedocumented in this encounter"
--- OUTSIDE RECORDS SUMMARY | ~2020-05-06 | XMS | Encounter Summary ---
Demographics + + + | Address | [address] | | | [place] [address] | + + + | Home Phone | | + + + | Preferred Language | Unknown | + + + | Marital Status | Single | + + + | Tenriism Affiliation | CHR | + + + | Race | White | + + + | Ethnic Group | Not or | + + + Author + + + | Author | [facility] | + + + | Organization | [facility] | + + + | Address | Unknown | + + + | Phone | Unavailable | + + + Support + + +---------+ + | Name | Relationship | Address | Phone | + + +---------+ + | William Talavera | ECON | Unknown | | + + +---------+ + Care Team Providers + +------+ + | Care Systems Analyst Developer Name | Role | Phone | + +------+ + | Lissette Martinez PA-C | PCP | | + +------+ + Encounter Details +--------+--------+ + + + | Date | Type | Department | Care Team | Description | +--------+--------+ + + + | 02/21/ | Intake | Transfer Center | | | | 2020 | | [address] | | | | | | [place], | | | | | | [place] [address] | | | +--------+--------+ + + + [...] month, have you been in contact | Unable to assess | 02/24/2020 8:32 AM | | with someone who was [...] | 2019 | Visit | Oncology | [address] | | | | | [address] | | | | | | [place] | | | | | | [address] | | | | | | [phone] | | | | | | | | +--------+---------+ + + + documented as of this encounter Visit Diagnoses Not on filedocumented in this encounter"
--- OUTSIDE RECORDS SUMMARY | ~2020-05-06 | XMS | Encounter Summary ---
Demographics + + + | Address | [address] | | | [place] [address] | + + + | Home Phone | | + + + | Preferred Language | Unknown | + + + | Marital Status | | + + + | Sikh Affiliation | 1013 | + + + | Race | or Other | + + + | Ethnic Group | Not or | + + + Author + + + | Author | [facility] | | | and [place] | + + + | Organization | [facility] | | | and [...] Team Providers + +------+ + | Care Tar Distillation Supervisor Name | Role | Phone | + +------+ + PCP | Unavailable | + +------+ + Encounter Details +--------+ + + + + | Date | Type | Department | Care Team | Description | +--------+ + + + + | 06/04/ | Hospital | [facility] | | | | 2005 - | Encounter | [facility] | | | | | | CENTER [address] | | | | 09/02/ | | [place] | | | | 2005 | | [address] | | | | | | [phone] | | | +--------+ + + + [...]
--- OUTSIDE RECORDS SUMMARY | ~2020-05-06 | XMS | Encounter Summary ---
Demographics + + + | Address | [address] | | | [place] [address] | + + + | Home Phone | | + + + | Preferred Language | Unknown | + + + | Marital Status | Single | + + + | Scientologist Affiliation | CHR | + + + | Race | White | + + + | Ethnic Group | Not or | + + + Author + + + | Author | [facility] | + + + | Organization | [facility] | + + + | Address | Unknown | + + + | Phone | Unavailable | + + + Support + + +---------+ + | Name | Relationship | Address | Phone | + + +---------+ + | William Talavera | ECON | Unknown | | + + +---------+ + Care Team Providers + +------+ + | Care Chief Safety Officer Name | Role | Phone | + [...] Closed | | Radiation | Diagnoses | [place], | Chirag, | | | | Oncology | 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, | [address] | [address] | | | | | unspecified | [address] | [facility] | | | | | laterality | [address] | [address] [place], | | | | | ([facility]) | [place] | [place] | | | | | Procedures | [address] | [address] | | | | | SIMULATION | Phone: | Phone: | | | | | IMAGING | [phone] | [phone] | | | | | SBRT | Fax: | Fax: | | | | | | [phone] | [phone] | +--------+--------+ + + + + Reason for Visit PROC - Dept/Practice Procedure (Routine) +--------+--------+ + + + + | Status | Reason | Specialty | Diagnoses / | Referred By | Referred To | | | | | Procedures | Contact | Contact | +--------+--------+ + + + + | Closed | | Radiation | Diagnoses | Santoli, | [place], | | | | Oncology | 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, | [address] | [address] [facility] | | | | | unspecified | [address] | [facility] | | | | | laterality | [address] | [address] [place], | | | | | ([facility]) | [place] | [place] | | | | | Procedures | [address] | [address] | | | | | SIMULATION | Phone: | Phone: | | | | | IMAGING | [phone] | [phone] | | | | | SBRT | Fax: | Fax: | | | | | | [phone] | [phone] | +--------+--------+ + + + + Encounter Details +--------+ + + + + | Date | Type | Department | Care Team | Description | +--------+ + + + + | 02/26/ | Hospital | Radiation Oncology | | | | 2020 | Encounter | at [facility] [address] | | | | | | [address] [place] | | | | | | [address] | | | | | | [place], [place] | | | | | | [address] | | | | | | [phone] | | | +--------+ + + + [...] + + + | Blood Pressure | - | - | | + + + + + | Pulse | - | - | | + + + + + | Temperature | 36.7 C (98.1 F) | 02/27/2020 8:51 AM | | | | | PDT | | + + + + + | Respiratory Rate | - | - | | + + + + + | Oxygen Saturation | - | - | | + + + + + | Inhaled Oxygen | - | - | | | Concentration | | | | + + + + + | Weight | - | - | | + + + + + | Height | - | - | | + + + + + | Body Mass Index | - | - | | + [...] | 2019 | Visit | Oncology | [address] | | | | | [address] | | | | | | [place] | | | | | | [address] | | | | | | [phone] | | | | | | | | +--------+---------+ + + + documented as of this encounter Procedures + +--------+ + + + | Procedure Name | Priori | Date/Time | Associated Diagnosis | Comments | | | ty | | | | + +--------+ + + + | SIMULATION IMAGING | Routin | 02/27/2020 | 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 | | | | | laterality (HCC) | | + +--------+ + + + documented in this encounter Results SIMULATION IMAGING (02/27/2020 8:40 AM PDT) + + | Specimen | [...]
--- OUTSIDE RECORDS SUMMARY | ~2020-05-06 | XMS | Encounter Summary ---
Demographics + + + | Address | [address] | | | [place] [address] | + + + | Home Phone | | + + + | Preferred Language | Unknown | + + + | Marital Status | Single | + + + | Christianity Affiliation | CHR | + + + | Race | White | + + + | Ethnic Group | Not or | + + + Author + + + | Author | [facility] | + + + | Organization | [facility] | + + + | Address | Unknown | + + + | Phone | Unavailable | + + + Support + + +---------+ + | Name | Relationship | Address | Phone | + + +---------+ + | William Talavera | ECON | Unknown | | + + +---------+ + Care Team Providers + +------+ + | Care Smelting Engineer Name | Role | Phone | + +------+ + | Lissette Martinez PA-C | PCP | | + +------+ + Encounter Details +--------+ + + + + | Date | Type | Department | Care Team | Description | +--------+ + + + + | 03/26/ | MyChart | Radiation Oncology | Antwon Beard, | Tessa Altman -Positive | | 2019 | Encounter | at [facility] [address] | [address] | Medical Diagnosis | | | | [address] [place] | [facility] | | | | | [place], 4th floor | [place], [place] | | | | | [place], [place] | [address] | | | | | [address] | [phone] | | | | | [phone] | | | +--------+ + + + [...] Telephone Encounter - Hemanth Cardenas RN - 03/27/2020 4:16 PM PDTPer Promise ZAMUDIO: I called the patient and told her where she can view her after visit summary/ consultation notes in her mychart, which would show her DX. She pulled it up while she was on the phone w demi rangel and said it would be sufficient information for her submission to [facility]. I told her if they should need anything else to please call us and we would be happy to pro vide more documentation for her. documented in this encounter Plan of Treatment +--------+---------+ + + + | Date | Type | Specialty | Care Team | Description | +--------+---------+ + + + | 06/26/ | Office | Hematology & | Lissette Jonse, | | 2019 | Visit | Oncology | [address] | | [address] | | | | | | [place] | | | | | | [address] | | | | | | [phone] | | | | | | | | +--------+---------+ + + + documented as of this encounter Visit Diagnoses Not on filedocumented in this encounter"
--- OUTSIDE RECORDS SUMMARY | ~2020-05-06 | XMS | Encounter Summary ---
Demographics + + + | Address | [address] | | | [place] [address] | + + + | Home Phone [...] Author + + + | Author | [facility] | + + + | Organization | [facility] | + + + | Address | Unknown | + + + | Phone | Unavailable | + + + Support + + +---------+ + | Name | Relationship | Address | Phone | + + +---------+ + | William Talavera | ECON | Unknown | | + + +---------+ + Care Team Providers + +------+ + | Care Middle School Sports Coach Name | Role | Phone | + +------+ + | Lissette Martinez PA-C | PCP | | + +------+ + Encounter Details +--------+ + + + + | Date | Type | Department | Care Team | Description | +--------+ + + + + | 11/01/ | Filter Tender Jelly | [facility] | Lissette Jones, | Kidney cancer, | | 2020 | | Clinics at S | [place] [address] | primary, with | | | | [facility] [address] | metastasis from | | | | [facility] | [facility] [place] | kidney to other | | | | Health and Healing, | [address] | site, left (HCC) | | | | Building [address] | [phone] | (Primary Dx) | | | | [place], [place] | | | | | | [address] | | | | | | [phone] | | | +--------+ + + + [...] & | Lissette Jones, | | | 2020 | Visit | Oncology | [address] | | | | | | [address] | | | | | | [place], [place] | | | | | | [address] | | | | | | [phone] | | | | | | | | +--------+---------+ + + + documented as of this encounter Results [facility] - BASIC METABOLIC SET (11/01/2019 10:13 AM PST) + + + + + + | Component | Value | Ref Range | Performed | Pathologist | | | | | At | Signature | + + + + + + | GLUCOSE, | 96 | 70 - 99 mg/dL | [facility] | | | PLASMA | | | LABORATORY | | | (LAB) | | | SERVICES, | | | | | | [facility] | | | | | HE[facility] + | | | | | | HEALING | | + + + + + + | BUN, PLASMA | 47 (H) | 6 - 20 mg/dL | [facility] | | | (LAB) | | | LABORATORY | | | | | | SERVICES, | | | | | | [facility] | | | | | | HE[facility] + | | | | | | HEALING | | + + + + + + | CREATININE | 1.47 (H) | 0.60 - 1.10 | [facility] | | | PLASMA | | mg/dL | LABORATORY | | | (LAB) | | | SERVICES, | | | | | | [facility] | [facility] + | | | | | | [facility]AL[facility] | | + + + + + + | EGFR | 44 (L) | >60 mL/min | [facility] | | | - | | | LABORATORY | | | [facility] | | | SERVICES, | | | | | | [facility] | | | | [facility] + | | | | | | [facility]ALING | | + + + + + + | EGFR NON | 37 (L) | >60 mL/min | [facility] | | | -LISA | | | LABORATORY | | | [facility] | | | SERVICES, | | | | | | [facility] | | | | | [facility] + | | | | | | HEALING | | + + + + + + | SODIUM, | 130 (L) | 136 - 145 | [facility] | | | PLASMA | | mmol/L | LABORATORY | | | (LAB) | | | SERVICES, | | | | | | [facility] | | | | | [facility] + | | | | | | HEALING | | + + + + + + | POTASSIUM, | 6.1 (HH) | 3.4 - 5.0 | [facility] | | | PLASMA | | mmol/L | LABORATORY | | | (LAB) | | | SERVICES, | | | | | | [facility] | | | | | | [facility] + | | | | | | HEALING | | + + + + + + | CHLORIDE, | 105 | 97 - 108 mmol/L | [facility] [...] + + + + | CALCIUM, | 7.7 (L) | 8.6 - 10.2 | [facility] [...] + + + + | BUN/CREATIN | 32 (H) | 8 - 25 | [facility] [...] MDRD equation recommended by the National | [facility] | | Kidney Disease Education Program. 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
--- OUTSIDE RECORDS SUMMARY | ~2020-05-06 | XMS | Encounter Summary ---
Demographics + + + | Address | [address] | | | [place] [address] | + + + | Home Phone | | + + + | Preferred Language | Unknown | + + + | Marital Status | Single | + + + | Yarsanism Affiliation | CHR | + + + | Race | White | + + + | Ethnic Group | Not or | + + + Author + + + | Author | [facility] | + + + | Organization | [facility] | + + + | Address | Unknown | + + + | Phone | Unavailable | + + + Support + + +---------+ + | Name | Relationship | Address | Phone | + + +---------+ + | William Talavera | ECON | Unknown | | + + +---------+ + Care Team Providers + +------+ + | Care Licensed Sales Assistant Name | Role | Phone | + [...] | | Clinics at S | [place] [address] | | | | | [facility] [address] | | | | | [facility] | [place], [place] | | | | | Health and Healing, | [address] | | | | | Building [address] | [phone] | | | | | [place], [place] | | | | | | [address] | | | | | | [phone] | | | +--------+ + + + [...] 1:42 PM PSTAsked to meet with patient a nd family in clinic to review ipi/nivo information. Reviewed medication information, when to call office and addressed scheduling questions. See pt education tab. New Treatment Planning Patient to start the following treatment (No abbreviations): ipilimumab and nivolumab Treatment is given every 21 for 4 cycles Additional appointments needed: N/A Additional Scheduling Instructions Offer Chemo Class Provider visit frequency: 21 day(s) Ok to see SALES OPERATIONS/PA: Yes The following treatments/appointments may be scheduled at a [facility] Site: n/a Treatment Room Assessment LINE ACCESS INFO: Rola ARRIETA. Vein assessment done on by 09/12. Specialized equipment needed: n/a Isolation needed: no Mobility issues: Independent with ADLs Toileting issues: Independent Psych/Social issues: none SNF/Living Facility: N/A Automatic Mounter needed for future appointments: No Patient is participating in a Clinical Trial: No documented in this encoun ter Plan of Treatment +--------+---------+ + + + | Date | Type | Specialty | Care Team | Description | +--------+---------+ + + + | 06/26/ | Office | Hematology & | Lissette Jones, | | 2019 | Visit | Oncology | [address] | | | [address] | | | | | | [place] | | | | | | [address] | | | | | | [phone] | | | | | | | | +--------+---------+ + + + documented as of this encounter Visit Diagnoses Not on filedocumented in this encounter"
--- OUTSIDE RECORDS SUMMARY | ~2020-05-06 | XMS | Encounter Summary ---
Demographics + + + | Address | [address] | | | [place] [address] | + + + | Home Phone | | + + + | Preferred Language | Unknown | + + + | Marital Status | Single | + + + | Mosque Affiliation | CHR | + + + | Race | White | + + + | Ethnic Group | Not or | + + + Author + + + | Author | [facility] | + + + | Organization | [facility] | + + + | Address | Unknown | + + + | Phone | Unavailable | + + + Support + + +---------+ + | Name | Relationship | Address | Phone | + + +---------+ + | William Talavera | ECON | Unknown | | + + +---------+ + Care Team Providers + +------+ + | Care Cloth Mercerizing Supervisor Name | Role | Phone | + +------+ + | Lissette Martinez PA-C | PCP | | + +------+ + Reason for Visit + +--------+ + | Reason | Onset | Comments | | | Date | | + +--------+ + | Medication | 03/14/ | dexamethasone taper | | Adjustment | 2020 | | + +--------+ + Encounter Details +--------+ + + + + | Date | Type | Department | Care Team | Description | +--------+ + + + + | 03/14/ | Telephone | Radiation Oncology | Antwon Beard, | Medication | | 2020 | | at [facility] [address] | [address] | Adjustment | | | | [address] [place] | [facility] [address] | (dexamethasone | | | | Pavilion, 4th floor | [place], [place] | taper) | | | | [place], [place] | [address] | | | | | [address] | [phone] | | | | | [phone] | | | +--------+ + + + [...] Telephone Encounter - Hemanth Cardenas RN - 03/15/2020 4:11 PM PDTSpoke with Tila via DraftDay. Gave her the verbal instructions for dexamethasone taper. Tila requested that I send her these instructions via [employer] which I did. Also eRx'd 2mg dexamethasone tabs to [facility] pharmacy. No further questions. TTelephone Encounter - Hemanth Cardenas RN - 03/14/2020 11:09 AM PDTCalled patient, antonino cottrell r, left voicemail to return call. Need to give patient the following taper instructions for her dexamethasone: Decrease down to 2mg BID x 5days Then decrease to 2mg daily x [address] Jones needs patient off dexamethasone to start immunotherapy per Dr. Beard. documented in this en counter Plan of Treatment +--------+---------+ + + + | Date | Type | Specialty | Care Team | Description | +--------+---------+ + + + | 06/26/ | Office | Hematology & | Lissette Jones, | | | 2019 | Visit | Oncology | [address] | | | | | [address] | | | | | | [place] | | | | | | [address] | | | | | | [phone] | | | | | | | | +--------+---------+ + + + documented as of this encounter Visit Diagnoses Not on filedocumented in this encounter"
--- OUTSIDE RECORDS SUMMARY | ~2020-05-06 | XMS | Encounter Summary ---
Demographics + + + | Address | [address] | | | [place] [address] | + + + | Home Phone [...] + + + | Author | [facility] | + + + | Organization | [facility] | + + + | Address | Unknown | + + + | Phone | Unavailable | + + + Support + + +---------+ + | Name | Relationship | Address | Phone | + + +---------+ + | William Talavera | ECON | Unknown | | + + +---------+ + Care Team Providers + +------+ + | Care Youth Director Name | Role | Phone | + +------+ + | Lissette Martinez PA-C | PCP | | + +------+ + Encounter Details +--------+--------+ + + + | Date | Type | Department | Care Team | Description | +--------+--------+ + + + | 08/24/ | Intake | Transfer Center | | | | 2019 | | [address] | | | | | | [place], | | | | | | [place] [address] | | | +--------+--------+ + + + [...] | 2019 | Visit | Oncology | [address] [address] | | | | [address] | | | | | | [place] | | | | | | [address] | | | | | | [phone] | | | | | | | | +--------+---------+ + + + documented as of this encounter Visit Diagnoses Not on filedocumented in this encounter"
--- OUTSIDE RECORDS SUMMARY | ~2020-05-06 | XMS | Encounter Summary ---
Demographics + + + | Address | [address] | | | [place] [address] | + + + | Home Phone | | + + + | Preferred Language | Unknown | + + + | Marital Status | | + + + | Synagogue Affiliation | 1013 | + + + | Race | or Other | + + + | Ethnic Group | Not or | + + + Author + + + | Author | [facility] | | | and [place] | + + + | Organization | [facility] | | | and [place]ana [...] Team Providers + +------+ + | Care Coding Analyst Name | Role | Phone | + +------+ + | Lissette Martinez | PCP | | | RADHA | | | + +------+ + Encounter Details +--------+ + + + + | Date | Type | Department | Care Team | Description | +--------+ + + + + | 12/07/ | Imaging | [facility] | Provider, | | | 2020 | Exam | [facility] | [facility] [address] | | | | | IMAGING [address] | | | | | [address] [place] | [place] [address] | | | | | [place] [address] | | | | | | [phone] | | | +--------+ + + + [...] + +--------+ + + + | CT ANGIOGRAM | Routin | 11/23/2019 | | Results for this | | PULMONARY | e | 12:00 AM | | procedure are in the | | | | PDT | | results section. | + +--------+ + + + documented in this encounter Results CT Angiogram Pulmonary w Contrast (11/23/2019 12:00 AM PDT) + + | Specimen | + + | | + + + + + | Narrative | Performed At | + + + | External films for comparison only | [facility] | | | | | No results will be in the chart. | | + + + + +---------+ + + | Performing | Address | City/State/Zipcode | Phone Number | | Organization | | | | + +---------+ + + | [facility] | | | | + +---------+ + + documented in this encounter Visit Diagnoses Not on filedocumented in this encounter"
--- OUTSIDE RECORDS SUMMARY | ~2020-05-06 | XMS | Encounter Summary ---
Demographics + + + | Address | [address] | | | [place] [address] | + + + | Home Phone [...] Team Providers + +------+ + | Care Issue Clerk Name | Role | Phone | [...] | | 2018 | | Services at [facility] | | Preparation | | | | [address] | | | | | | [place] | | | | | | [facility], [address] [place] [address] | | | | | | [place], [place] | | | | | | [address] | | | | | | [phone] | | | +--------+ + + + [...] advised to communicate to provider to call [phone] with questions. Pt was given pre-procedure instructions: [...] accompany them on public tra nsportation. Call [phone] with any questions. documented in this enc ounter Plan of Treatment +--------+---------+ + + + | Date | Type | Specialty | Care Team | Description | +--------+---------+ + + + | 06/26/ | Office | Hematology & | Lissette Jones, | | | 2019 | Visit | Oncology | [address] | | | | | [address] | | | | | | [place] | | | | | | [address] | | | | | | [phone] | | | | | | | | +--------+---------+ + + + documented as of this encounter Visit Diagnoses Not on filedocumented in this encounter"
--- OUTSIDE RECORDS SUMMARY | ~2020-05-06 | XMS | Encounter Summary ---
Demographics + + + | Address | [address] | | | [place] [address] | + + + | Home Phone | | + + + | Preferred Language | Unknown | + + + | Marital Status | | + + + | Islam Affiliation | 1013 | + + + | Race | or Other | + + + | Ethnic Group | Not or | + + + Author + + + | Author | [facility] | | | and [place] | + + + | Organization | [facility] | | | and [...] Team Providers + +------+ + | Care Dry Molder Name | Role | Phone | + +------+ + | Lissette Martinez | PCP | | | RADHA | | | + +------+ + Encounter Details +--------+ + + + + | Date | Type | Department | Care Team | Description | +--------+ + + + + | 11/16/ | Imaging | [facility] | Provider, | | | 2020 | Exam | MED CTR EXTERNAL | [facility] [address] | | | | | IMAGING [address] | | | | | [address] | [place] [address] | | | | | [place] [address] | | | | | | [phone] | | | +--------+ + + + [...] + +--------+ + + + | CT CHEST ABDOMEN | Routin | 08/23/2019 | | Results for this | | PELVIS WO CONTRAST | e | 12:10 AM | | procedure are in the | | | | PST | | results section. | + +--------+ + + + documented in this encounter Results CT Chest Abdomen Pelvis wo Contrast (08/23/2019 12:10 AM PST) + + | Specimen | + [...]
--- OUTSIDE RECORDS SUMMARY | ~2020-05-06 | XMS | Encounter Summary ---
Demographics + + + | Address | [address] | | | [place] [address] | + + + | Home Phone [...] Team Providers + +------+ + | Care Machine Tracer Name | Role | Phone | + +------+ + | Lissette Martinez PA-C | PCP | | + +------+ + Reason for Visit + +--------+ + | Reason | Onset | Comments | | | Date | | + +--------+ + | Patient education | 02/26/ | | | | 2020 | | + +--------+ + | Medication Refill | 02/26/ | refilled dexamethasone | | | 2019 | | + +--------+ + | Letter Encounter | 02/26/ | work leave letter | | | 2020 | | + +--------+ + Encounter Details +--------+ + + + + | Date | Type | Department | Care Team | Description | +--------+ + + + + | 02/26/ | Telephone | Radiation Oncology | Antwon Beard, | Patient education; | | 2020 | | at [facility] [address] | [address] [facility] | Medication Refill | | | | [address] | [facility] | (refilled | | | | Pavilion, 4th floor | [place], [place] | dexamethasone); | | | | [place], [place] | [address] | Letter Encounter | | | | [address] | [phone] | (work leave letter) | | | | [phone] | | | +--------+ + + + [...] this encounter Miscellaneous Notes Telephone Encounter - Fausto Pace RN - 03/02/2020 11:[address] [facility] and spoke with Sammy the pharmacist. Confirmed that he just filled the prescript ion for Dexamethasone 4mg. Called William and let her know, she said the pharmacy had just call ed her to let her know. She was grateful for phone call and denied and further needs at this time. elephone Enco mark - Promise Rodrigues - 03/02/2020 10:16 AM PDTPatient sister, William, called in about Tila' s request for prescription refill. William states that Tila will be out of her dexAMETHasone 4 mg oral tablet tomorrow and is h oping to get a refill sent to her preferred pharmacy, [facility][id number] - [place], [place] - [address] [phone] . William would like a call back today to discuss this further. Please review and advise. elephone Ness - Hemanth Cardenas RN - 02/27/2020 1:50 PM PDTNursing Note: Spoke with Tila Altman today to give site specific radiation treatment education. Julianne alvares is alert and oriented with some slow/slurred speech noted which is her current baseline. The patient lives in [place], [place] and plans on staying at her Aunt's house in [facility] during her RT course and plans to have her sister drive her to daily radiation treatments. The patient is here to begin radiation treatment to the brain and has verified this is the correct location of the treatment. Patient oriented to clinic, treatment routine, projected length of treatment (3 fractions), and the schedule for weekly physician visits. A site specific radiation therapy information al handout will be given by radiation therapists on first day of radiation. Possible side ef fects were reviewed. Patient verbalized understanding of information discussed. Sent mychart message with [facility] daytime and afterhours phone numbers. Reviewed whe n to call for side effects. Patient said she will NOT require anxiolytics for her RT. Refilled current prescription for dexamethasone [facility] BID to [facility]. Patient will discuss tapering instructions with Dr. Beard at [facility], routed to Dr. Beard for reminder to d jodi taper at [facility]. Patient requesting work leave letter. Will type up and have Dr. Jaboin theodore. Waiting on fax# for patient's work. 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 Will fax signed letter once receive work fax# from patient. 20 minutes was spent in telephone discussion and teaching with the patient during this enco unter. Refer to Patient Education Report for additional documentation. documented in this en counter Plan of Treatment +--------+---------+ + + + | Date | Type | Specialty | Care Team | Description | +--------+---------+ + + + | 06/26/ | Office | Hematology & | Lissette Jones, | | 2019 | Visit | Oncology | [address] | | | | | [address] | | | | | | [place], [place] | | | | | | [address] | | | | | | [phone] | | | | | | | | +--------+---------+ + + + documented as of this encounter Visit Diagnoses Not on filedocumented in this encounter"
--- OUTSIDE RECORDS SUMMARY | ~2020-05-06 | XMS | Encounter Summary ---
Demographics + + + | Address | [address] | | | [place] [address] | + + + | Home Phone [...] Author + + + | Author | [facility] | + + + | Organization | [facility] | + + + | Address | Unknown | + + + | Phone | Unavailable | + + + Support + + +---------+ + | Name | Relationship | Address | Phone | + + +---------+ + | William Talavera | ECON | Unknown | | + + +---------+ + Care Team Providers + +------+ + | Care Group Home Worker Name | Role | Phone | + +------+ + | Lissette Martinez PA-C | PCP | | + +------+ + Reason for Visit + +--------+ + | Reason | Onset | Comments | | | Date | | + +--------+ + | Oral Chemo | 03/16/ | Cabozantinib | | | 2020 | | + +--------+ + Encounter Details +--------+ + + + + | Date | Type | Department | Care Team | Description | +--------+ + + + + | 07/10/ | Telephone | Pharmacy @ [facility] | Remy Bess, | Oral Chemo | | 2020 | | [address] | [address] [facility] | (Cabdianaantinib) | | | | Colin Frank Mailcode: | [address] | | | | | [facility] | [place], [place] | | | | | and [place], | [address] | | | | | [address] | | | | | | [place], [place] | | | | | | [address] | | | +--------+ + + + [...] this encounter Miscellaneous Notes Telephone Encounter - Anai Jimenez - 04/17/2020 1:40 PM PDTTeam Coordinator Documentatio n: Subject: Note TC: Called [facility] and obtained labs completed on 04/12/2020, forwarded to Mike PEREZ and Nivia posey for review -->Note to RNC: HOMA elephone Encounter - Anai Toribio - 04/02/2020 3:50 PM PDTTeam Coordinator Documentation: Subject: Note TC: Faxed lab orders to [facility] in [place] -->Note to RNC: FYI ddendum Note - Zunilda Padilla RN - 04/02/2020 3:26 PM PDT Addended by: ZUNILDA PADILLA RN on: 04/02/2020 03:26 PM Modules accepted: Orders elephone Encount er - Zunilda Padilla RN - 04/02/2020 3:24 PM PDT -->[facility] TC: Please fax cbc and cmp lab orders to [facility] in [facility]. elephone Encounter - Zunilda Padilla RN - 04/02/2020 3:04 PM PDTCalled Tila-she has follow up set up for 04/23. Asked her to have labs drawn prior to her follow up appt. Patient requesting to hav e labs drawn locally in [facility] at [facility] lab. Lab orders in place.Electronically sign ed by Zuinlda Padilla RN at 04/02/2020 3:24 PM PDTAddendum Note - Zunilda Padilla RN - 04/02/2020 3:03 PM PDT Addended by: ZUNILDA PADILLA RN on: 04/02/2020 03:03 PM Modules accepted: Orders ddendum Note - B Pina fish, PharmD - 03/30/2020 8:46 AM PDT Addended by: PINA LANDRY on : 03/30/2020 08:46 AM Modules accepted: Orders elephone Encounter - Pina Landry PharmD - 03/29/2020 2:49 PM PDTPharmacy Documentation Oral Chemotherapy - Education:: 25 Minutes Spent The patient was called for education regarding cabozantinib chemotherapy. The following in formation was discussed with the patient: Prescription: The prescription will be filled at [facility]. The patient will have the prescr iption delivered to their home on 03/30/2020. The copay is $0.00. Dose and Administration: Cabozantinib 40 mg once daily on an empty stomach (patient instructed not to eat for at kar[address] 2 hours before and at least 1 hour after taking the drug) Storage: Store medication at room temperature. Adverse Effects: Patient was provided an education handout on the medications prescribed. The most frequent side effects were reviewed, including fatigue, diarrhea, nausea/vomiting, mucositis, decreas ed appetite, taste changes, increased blood pressure, hand-foot skin reaction, changes in re nal function, kidney function, and electrolytes. Drug Interactions: Medication list reviewed and updated. No significant drug interactions identified using [employer] resource. Monitoring/Supportive Care: The following labs and/or tests are recommended for monitoring: CBC, CMP Appropriate supportive care medications also prescribed, including: Loperamide, Udderly Smo oth Urea Cream Follow-Up Information: Patient to see Dr. Jones on TBD. The patient expressed understanding and all questions were answered. She understands to clark l the clinic for any questions. Pina Landry PharmD, OP Clinical Oncology Pharmacist elePina Elizabeth PharmD - 03/28/2020 9:32 AM PDTPharmacy Documentation O ral Chemotherapy - Care Planning:: 25 Minutes Spent Called [facility] and confirmed that they received the prescription. They have processed it through the insurance and plan to ship to the patient to arrive on Thursday, 03/30. elephone E Pina Dela Cruz PharmD - 03/26/2020 2:34 PM PDTPharmacy Documentation O ral Chemotherapy - Prescription Transferred:: 10 Minutes Spent Prescription for cabozantinib transferred to [facility]. The patient needs to b e notified of the change in pharmacies and provided contact information for the pharmacy. Faxed insurance, demographic, and diagnosis code information to pharmacy. PharmD will follow up on transfer within 72 hours to ensure prescription was received and v erify copay. elephone E Melissa Cespedes - 03/26/2020 2:24 PM PDTPrior authorization has been approved for Cabometyx through 03/21/21. The medication must be filled at [facility] specialty pharmacy [phone]. PharmD please reroute the Rx elephone Encounter - Kushal Vegas PharmD - 03/16/2020 4:25 PM PDTPharmacy Documentation Oral Chemotherapy - New Star t Chemotherapy:: 10 Minutes Spent After review of provider's note: New treatment initiation for cabozanitib indicated for metastatic RCC. Dose appropriate bas ed on indication and organ function (starting at lower dose). The expected start date of the ordered medication is as soon as affordable and is OK to dis pense. Provider has discussed medication with the patient. Will recommend the following supportive care medications be prescribed: urea cream, loperam sadie PharmD to complete another drug interaction review after medication reconciliation complete d. Interaction with dexamethasone per [facility] but looking like rad onc is titrating patient off of dex. Pharmacist will need to educate patient. elephone Encounter - Luh Esparza RN - 03/16/2020 4:07 PM PDTOrange onc patient routing to [facility]. Electr onically signed by Luh Le RN at 03/16/2020 4:07 PM PDTTelephone Encounter - Sarah Carlton - 03/16/2020 4:03 PM PDTPrior Authorization was submitted fr CABOMETYX 40MG T LEONEL through [employer] [facility] via [employer] gonsales: ANCLYRLH documented in this encounter Plan of Treatment +--------+---------+ + + + | Date | Type | Specialty | Care Team | Description | +--------+---------+ + + + | 06/26/ | Office | Hematology & | Lissette Jones, | | 2019 | Visit | Oncology | [address] | | | [address] | | | | | | [place] | | | | | | [address] | | | | | | [phone] | | | | | | | | +--------+---------+ + + + + +------+--------+ + + | Name | Type | Priori | Associated Diagnoses | Order Schedule | | | | ty | | | + +------+--------+ + + | CBC, WITH | Lab | Routin | Renal cell | Expected: 04/16/2020 | | DIFFERENTIAL | | e | carcinoma of left | (Approximate), | | | | | kidney (HCC) | Expires: 05/03/2021 | + +------+--------+ + + | COMPLETE METABOLIC | Lab | Routin | Renal cell | Expected: 04/02/2020 | | SET | | e | carcinoma of left | (Approximate), | | (NA,K,CL,CO2,BUN,CRE | | | kidney (HCC) | Expires: 05/03/2021 | | AT,GLUC,CA,AST,ALT,B | | | | | | MARTIN TOTAL,ALK | | | | | | PHOS,ALB,PROT TOTAL) | | | | | + +------+--------+ + + | CBC, WITH | Lab | Routin | Renal cell | Expected: 04/16/2020 | | DIFFERENTIAL | | e | carcinoma of left | (Approximate), | | | | | kidney (HCC) | Expires: 05/03/2021 | + +------+--------+ + + documented as of this encounter Visit Diagnoses + + | Diagnosis | + + | 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
--- OUTSIDE RECORDS SUMMARY | ~2020-05-06 | XMS | Encounter Summary ---
Demographics + + + | Address | [address] | | | [place] [address] | + + + | Home Phone [...] + + + | Author | [facility] | + + + | Organization | [facility] | + + + | Address | Unknown | + + + | Phone | Unavailable | + + + Support + + +---------+ + | Name | Relationship | Address | Phone | + + +---------+ + | William Talavera | ECON | Unknown | | + + +---------+ + Care Team Providers + +------+ + | Care Service Person Name | Role | Phone | + +------+ + | Lissette Martinez PA-C | PCP | | + +------+ + Reason for Visit + + + | Reason | Comments | + + + | New Patient Visit | | + + + Encounter Details +--------+ + + + + | Date | Type | Department | Care Team | Description | +--------+ + + + + | 03/06/ | Clinical | Radiation Oncology | Siva Carrillo [address] | New Patient Visit | | 2020 | Support | at [facility] [address] | [address] | | | | Staff | [address] | [address] [place], [place] | | | | | [facility] floor | [address] | | | | | [place], [place] | | | | | | [address] | | | | | | [phone] | | | +--------+ + + + [...] documented as of this encounter Progress Notes Sharmila De Leon RN - 03/06/2020 10:30 AM PDTRT unable to begin treatment today due to kayden nges in tumor size evident upon visualization of patient imaging just before treatment. Gave patient and daughter meal cards and asked to return at 11:30. They are consulting with Dr. Beard about treatment options. 1 2:28 PM PDTdocumented in this encounter Plan of Treatment +--------+---------+ + + + | Date | Type | Specialty | Care Team | Description | +--------+---------+ + + + | 06/26/ | Office | Hematology & | Lissette Jones, | | 2019 | Visit | Oncology | [address] | | | | | | [place] | | | | | | [address] | | | | | | [phone] | | | | | | | | +--------+---------+ + + + documented as of this encounter Visit Diagnoses + + | Diagnosis | + + | Encounter for radiotherapy - Primary Radiotherapy | + + documented in this encounter"
--- OUTSIDE RECORDS SUMMARY | ~2020-05-06 | XMS | Encounter Summary ---
Demographics + + + | Address | [address] | | | [place] [address] | + + + | Home Phone | | + + + | Preferred Language | Unknown | + + + | Marital Status | | + + + | Orthodoxy Affiliation | 1013 | + + + | Race | or Other | + + + | Ethnic Group | Not or | + + + Author + + + | Author | [facility] | | | and Shahram | + + + | Organization | [facility] | | | and [place]ana [...] Team Providers + +------+ + | Care Installer Metal Flooring Name | Role | Phone | + +------+ + PCP | Unavailable | + +------+ + Encounter Details +--------+ + + + + | Date | Type | Department | Care Team | Description | +--------+ + + + + | 10/26/ | Hospital | [facility] | | | | 2003 - | Encounter | [facility] | | | | | | CENTER [address] | | | | 02/18/ | | [place] | | | | 2003 | | [address] | | | | | | [phone] | | | +--------+ + + + [...]
--- OUTSIDE RECORDS SUMMARY | ~2020-05-06 | XMS | Clinical Summary ---
Demographics + + + | Address | [address] | | | [place] [address] | + + + | Home Phone [...] Author + + + | Author | [facility] | + + + | Organization | [facility] | + + + | Address | Unknown | + + + | Phone | Unavailable | + + + Support + + +---------+ + | Name | Relationship | Address | Phone | + + +---------+ + | William Talavera | ECON | Unknown | | + + +---------+ + Care Team Providers + +------+ + | Care Supervisor Landscape Name | Role | Phone | + +------+ + | Lissette Martinez PA-C | PCP | | + +------+ + Source Comments [facility] is fully live on both [facility] Ambulatory and [facility] InPatient.[facility] Allergies No Known Allergies Medications + + + +---------+------+------+-------+ | Medication | Sig | Dispensed | Refills | Star | End | Statu | | | | | | t | Date | s | | | | | | Date | | | + + + +---------+------+------+-------+ | lovastatin 20 mg | Take 20 mg by mouth | | 0 | | | Activ | | oral tablet | once daily in the | | | | | e | | | evening. Administer | | | | | | | | with evening meal. | | | | | | + + + +---------+------+------+-------+ | omeprazole 20 mg | Take 1 capsule by | 30 | 0 | 12/2 | | Activ | | oral capsule,delayed | mouth two times | capsule | | 4/20 | | e | | release(DR/EC) | daily. Administer 30 | | | 19 | | | | | to 60 minutes | | | | | | | | before meals | | | | | | + + + +---------+------+------+-------+ | levothyroxine 100 | Take 1 tablet by | 30 | 0 | 03/2 | | Activ | | mcg oral tablet | mouth before | tablet | | 4/20 | | e | | | breakfast. | | | 20 | | | + + + +---------+------+------+-------+ | cholecalciferol | Take 1 capsule by | 21 | 0 | 04/0 | | Activ | | 50,000 unit oral | mouth every seven | capsule | | 8/20 | | e | | capsuleIndications: | days. Indications: | | | 20 | | | | vitamin D deficiency | vitamin D deficiency | | | | | | | (high dose therapy) | (high dose therapy) | | | | | | + + + +---------+------+------+-------+ | furosemide (LASIX) | Take 1 tablet by | 30 | 0 | 05/0 | | Activ | | 20 mg oral tablet | mouth once daily. | tablet | | 4/20 | | e | | | | | | 20 | | | + + + +---------+------+------+-------+ | Iron, Carbonyl 45 | Take by mouth. | | 0 | | | Activ | | mg elemental oral | | | | | | e | | tablet | | | | | | | + + + +---------+------+------+-------+ | apixaban 5 mg oral | Take 1 tablet by | 60 | 3 | 07/1 | | Activ | | tablet | mouth two times | tablet | | 0/20 | | e | | | daily. | | | 20 | | | + + + +---------+------+------+-------+ | cabozantinib 40 mg | Take 1 tablet by | 30 | 3 | 07/2 | | Activ | | oral | mouth once daily. | tablet | | 0/20 | | e | | tabletIndications: | Indications: renal | | | 20 | | | | renal cell carcinoma | cell carcinoma | | | | | | + + + +---------+------+------+-------+ | oxyCODONE | Take 1 tablet by | 120 | 0 | 08/1 | | Activ | | (immediate release) | mouth every four | tablet | | 7/20 | | e | | 5 mg oral tablet | hours as needed for | | | 20 | | | | | severe pain. | | | | | | + + + +---------+------+------+-------+ Active Problems + + + | Problem | Noted Date | + + + | Adverse drug reaction | 11/24/2019 | + + + + + | Overview: Checkpoint inhibitors | + + + + + | Hyperthyroidism | 11/22/2019 | + + + | Hypotension, unspecified hypotension type | 11/21/2019 | + + + | Closed compression fracture of body of L1 vertebra | 11/21/2019 | + + + | Hypothyroidism, unspecified type | 11/21/2019 | + + + | Renal cell carcinoma, unspecified laterality | 11/21/2019 | + + + | Hypotension | 08/31/2019 | + + + | Proteinuria | 08/30/2019 | + + + | Hematuria | 08/30/2019 | + + + | JONO (acute kidney injury) | 08/30/2019 | + + + | Elevated blood uric acid level | 08/30/2019 | + + + | Normocytic anemia | 08/30/2019 | + + + | Leukopenia | 08/30/2019 | + + + | Closed compression fracture of L2 lumbar vertebra, initial | 08/25/2019 | | encounter | | + + + | Renal cell carcinoma of left kidney | 08/25/2019 | + + + | Hyperkalemia | 08/24/2019 | + + + | Hypothyroidism | 08/24/2019 | + + + | Compression fracture of L2 vertebra | 08/24/2019 | + + + | Renal cell adenocarcinoma | 08/23/2019 | + + + | Hypercalcemia of malignancy | 08/23/2019 | + + + Encounters +--------+ + + + + | Date | Type | Specialty | Care Team | Description | +--------+ + + + + | 05/06/ | Telephone | Hematology & | Flavia Bailon MD | | | 2020 | | Oncology | | | +--------+ + + + + | 05/06/ | Intake | | | | | 2019 | | | | | +--------+ + + + + | 05/01/ | Telephone | Radiation Oncology | Antwon Beard, | Nikky, NOS | | 2019 | | | MD | | +--------+ + + + + | 05/01/ | MyChart | Radiation Oncology | Antwon Beard, | DEEDEE: Tessa Altman | 2019 | Encounter | | MD | | +--------+ + + + + | 04/25/ | Telephone | Hematology & | Lissette Jones, | Care Coordination | | 2019 | | Oncology | MD | | +--------+ + + + + | 04/23/ | Video/TeleH | Hematology & | Lissette Jones, | No Show | | 2019 | ealth-Sched | Oncology | MD | | | | uled | | | | +--------+ + + + + | 04/20/ | Telephone-S | Radiation Oncology | Antwon Beard, | Follow-up visit | | 2019 | cheduled | | MD | | +--------+ + + + + | 04/17/ | MyChart | Hematology & | Lissette Jnoes, | Rx refill | | 2019 | Encounter | Oncology | MD | | +--------+ + + + + | 04/02/ | Telephone | Radiation Oncology | Antwon Beard, | Care Coordination | | 2019 | | | MD | | +--------+ + + + + | 03/31/ | Telephone | Hematology & | Lissette Jones | Appointment (virtual | 2019 | | Oncology | MD | 6 week follow up) | +--------+ + + + + | 03/29/ | MyChart | Hematology & | Senthil Landry | Cabozantinib Handout | 2019 | Encounter | Oncology | Juanita Maurice | | +--------+ + + + + | 03/26/ | MyChart | Radiation Oncology | Antwon Beard | A. Huth -Positive | 2019 | Encounter | | MD | Medical Diagnosis | +--------+ + + + + | 03/26/ | Pharmacy | Pharmacy Services | | | 2019 | Visit | | | | +--------+ + + + + | 03/26/ | Pharmacy | | | | | 2020 | Visit | | | | +--------+ + + + + | 03/25/ | MyChart | Hematology & | Lissette Jones, | RE: Rx Apixaban 5mg | | 2019 | Encounter | Oncology | MD | Tab | +--------+ + + + + | 03/21/ | Pharmacy | Pharmacy Services | | | | 2020 | Visit | | | | +--------+ + + + + | 03/20/ | Pharmacy | Pharmacy Services | | | | 2020 | Visit | | | | +--------+ + + + + | 03/19/ | Pharmacy | Pharmacy Services | | | | 2020 | Visit | | | | +--------+ + + + + | 03/16/ | Refill | Hematology & | Lissette Jones, | Refill Request | | 2019 | | Oncology | MD | | +--------+ + + + + | 03/16/ | Telephone | Pharmacy Services | Remy Bess, | Oral Chemo | | 2020 | | | Sarah | (Cabozantinib) | +--------+ + + + + | 03/16/ | Pharmacy | Pharmacy Services | | | | 2020 | Visit | | | | +--------+ + + + + | 03/14/ | Telephone | Radiation Oncology | Antwon Beard, | Medication | | 2019 | | | MD | Adjustment | | | | | | (dexamethasone | | | | | | taper) | +--------+ + + + + | 03/12/ | Hospital | Radiology | Lissette Jones, | | 2019 | Encounter | | MD | | +--------+ + + + + | 03/12/ | Office | Hematology & | Lissette Jones, | Renal cell carcinoma | | 2019 | Visit | Oncology | MD | of left kidney | | | | | | (HCC) (Primary Dx) | +--------+ + + + + | 03/12/ | Clinical | Phlebotomy | | Lab Draw | | 2019 | Support | | | | | | Staff | | | | +--------+ + + + + | 03/12/ | Hospital | Hematology & | Onc, Gen | | | 2020 | Encounter | Oncology | | | +--------+ + + + + | 03/12/ | Travel | | | | | 2019 | | | | | +--------+ + + + + | 03/08/ | Telephone | Community Oncology | Lissette Jones, | [id number] Screening | | 2020 | | | MD | | +--------+ + + + + | 03/07/ | Office | Radiation Oncology | Antwon Beard, | Brain metastases | | 2019 | Visit | | MD | (HCC) (Primary Dx); | | | | | | Encounter for | | | | | | radiotherapy | +--------+ + + + + | 03/07/ | Hospital | Radiation Oncology | | | | 2019 | Encounter | | | | +--------+ + + + + | 03/07/ | Documentati | Radiation Oncology | Antwon Beard, | RT Treatment Summary | | 2019 | on | | MD | | +--------+ + + + + | 03/06/ | Hospital | Radiation Oncology | | | | 2019 | Encounter | | | | +--------+ + + + + | 03/06/ | Clinical | Radiation Oncology | Siva Carrillo | New Patient Visit | | 2019 | Support | | | | | | Staff | | | | +--------+ + + + + | 03/06/ | Hospital | Radiation Oncology | | | | 2019 | Encounter | | | | +--------+ + + + + | 03/06/ | Transcribe | Radiation Oncology | Antwon Beard, | | | 2019 | Orders | | MD | | +--------+ + + + + | 03/06/ | Travel | | | | | 2019 | | | | | +--------+ + + + + | 02/28/ | Documentati | Radiation Oncology | Antwon Beard, | Disability Paperwork | | 2019 | on | | MD | (work leave letter) | +--------+ + + + + | 02/27/ | Refill | Hematology & | Lissette Jones, | Refill Request | | 2019 | | Oncology | | | +--------+ + + + + | 02/26/ | Telephone-S | Neurological Surgery | Stephanie Bustos MD | | | 2019 | meenakshi | | | | +--------+ + + + + | 02/26/ | Hospital | Radiation Oncology | | | | 2019 | Encounter | | | | +--------+ + + + + | 02/26/ | Hospital | Radiology | Kwabena Sanchez, | | | 2019 | Encounter | | | | +--------+ + + + + | 02/26/ | Telephone | Radiation Oncology | Antwon Beard, | Patient education; | | 2019 | | | MD | Medication Refill | | | | | | (refilled | | | | | | dexamethasone); | | | | | | Letter Encounter | | | | | | (work leave letter) | +--------+ + + + + | 02/26/ | Travel | | | | | 2019 | | | | | +--------+ + + + + | 02/23/ | Video/TeleH | Radiation Oncology | Antwon Beard, | | | 2019 | ealth-Sched | | MD | | | | uled | | | | +--------+ + + + + | 02/23/ | Transcribe | Radiation Oncology | Antwon Beard, | | 2019 | Orders | | MD | | +--------+ + + + + | 02/23/ | Travel | | | | | 2020 | | | | | +--------+ + + + + | 02/23/ | MyChart | Radiology | | MRI Screening Form | | 2019 | Encounter | | | | +--------+ + + + + | 02/22/ | Procedure | Radiology | | | | 2020 | Pass | | | | +--------+ + + + + | 02/22/ | Abstract | Neurological Surgery | Clinic, | | | 2020 | | | Neurosurgery | | +--------+ + + + + | 02/22/ | Telephone | Hematology & | Vuky, Lissette, | Emergency room | | 2019 | | Oncology | MD | admission, followed | | | | | | by release (scan | | | | | | showed tumor) | +--------+ + + + + | 02/22/ | Pressure Tester | Community Oncology | Kwabena Sanchez, | Renal cell | | 2019 | | | MD | carcinoma, | | | | | | unspecified | | | | | | laterality (HCC) | | | | | | (Primary Dx) | +--------+ + + + + | 02/21/ | Intake | | | | | 2019 | | | | | +--------+ + + + + | 02/12/ | Office | Hematology & | Lissette Jones, | Renal cell carcinoma | | 2019 | Visit | Oncology | MD | of left kidney | | | | | | (HCC) (Primary Dx) | +--------+ + + + + | 02/12/ | Clinical | Phlebotomy | | Lab Draw (PIV) | | 2019 | Support | | | | | | Staff | | | | +--------+ + + + + | 02/12/ | Hospital | Hematology & | Onc, Gen | | | 2019 | Encounter | Oncology | | | +--------+ + + + + | 02/12/ | Telephone | Hematology | Lissette Jones, | Radiology Order | | 2019 | | Malignancy | MD | | +--------+ + + + + | 02/12/ | Travel | | | | | 2020 | | | | | +--------+ + + + + | 02/09/ | Telephone | Community Oncology | Lissette Jones, | [id number] Screening | | 2020 | | | MD | | +--------+ + + + + | 01/08/ | Procedure | Radiology | | | | 2019 | Pass | | | | +--------+ + + + + from Last 3 Months Family History + + +------+ + | Medical History | Relation | Name | Comments | + + +------+ + | Diabetes | Father | | | + + +------+ + | Diabetes | Mother | | | + + +------+ + | Diabetes | Sister | | | + + +------+ + | Hypertension | Sister | | | + + +------+ + + +------+ + + | Relation | Name | Status | Comments | + +------+ + + | Father | | | | + +------+ + + | Mother | | Alive | | + +------+ + + | Sister | | | | + +------+ + + Social History + +-------+ +--------+------+ [...] on file | | + + + Last Filed Vital Signs + + + [...] + | Respiratory Rate | 16 | 03/07/2020 4:47 PM | | | | | PDT [...] Height | 157.5 cm (5' 2") | 02/13/2020 9:50 AM | | | | | PDT | | + + + + + | Body Mass Index | 33.95 | 02/13/2020 9:50 AM | | | | | PDT | | + + + + + Plan of Treatment +--------+---------+ + + + | Date | Type | Specialty | Care Team | Description | +--------+---------+ + + + | 06/26/ | Office | Hematology & | Lissette Jones, | | | 2020 | Visit | Oncology | [place] [address] | | | | | | [address] | | | | | | [place] | | | | | | [address] | | | | | | [phone] | | | | | | | | +--------+---------+ + + + + + + + + | Health Maintenance | Due Date | Last | Comments | | | | Done | | + + + + + | Influenza (Flu) | | 06/16/20 | | | vaccination (#1) | 0 | 19, | | | | | 06/12/20 | | | | | 18, | | | | | 07/21/20 | | | | | 17, | | | | | Addition | | | | | al | | | | | history | | | | | exists | | + + + + + | Pneumococcal | | 11/06/19 | | | vaccination (3 of 3 | 0 | 17, | | | - PPSV23) | | 08/15/20 | | | | | 15 | | + + + + + Procedures + +--------+ + + + | Procedure Name | Priori | Date/Time | Associated Diagnosis | Comments | | | ty | | | | + +--------+ + + + | OUTSIDE RADIOLOGY - | | 04/19/2020 | | Results for this | | MRI | | | | procedure are in the [...] FREE T4 - OLP | Routin | 03/12/2020 | Renal cell | Results for this | | | e | 9:13 AM | carcinoma of left | procedure are in the | | | | PDT | kidney (HCC) | results section. | + +--------+ + + + | TSH - OLP | Routin | 03/12/2020 | Renal cell | Results for this | | | e | 9:13 AM | carcinoma of left | procedure are in the | | | | PDT | kidney (HCC) | results section. | + +--------+ + + + | COMPLETE METABOLIC | Routin | 03/12/2020 | Renal cell | Results for this | | PANEL - OLP | e | 9:13 AM | carcinoma of left | procedure are in the | | | | PDT | kidney (HCC) | results section. | + +--------+ + + + | CBC WITH AUTO DIFF - | Routin | 03/12/2020 | Renal cell | Results for this | | OLP | e | 9:13 AM | carcinoma of left | procedure are in the | | | | PDT | kidney ([facility]) | results section. | + +--------+ + + + | FREE T4 | Routin | 03/12/2020 | Renal cell | Results for this | | | e | 9:13 AM | carcinoma of left | procedure are in the | | | | PDT | kidney ([facility]) | results section. | + +--------+ + + + | TSH | Routin | 03/12/2020 | Renal cell | Results for this | | | e | 9:13 AM | carcinoma of left | procedure are in the | | | | PDT | kidney ([facility]) | results section. | + +--------+ + + + | [facility] - COMPLETE | Routin | 03/12/2020 | Renal cell | Results for this | | METABOLIC SET | e | 9:13 AM | carcinoma of left | procedure are in the | | | | PDT | kidney ([facility]) | results section. | + +--------+ + + + | CBC AND AUTO DIFF - | Routin | 03/12/2020 | Renal cell | Results for this | | [facility] | e | 9:13 AM | carcinoma of left | procedure [...] + + | ADMINISTER | Routin | 02/13/2020 | | | | CHEMOTHERAPY PER | e | 10:22 AM | | | | TREATMENT PARAMETERS | | PDT | | | + +--------+ + + + | COMPLETE METABOLIC | Routin | 02/13/2020 | Renal cell | Results for this | | PANEL - OLP | e | 9:24 AM | carcinoma of left | procedure are in the | | | | PDT | kidney (HCC) | results section. | + +--------+ + + + | CBC WITH AUTO DIFF - | Routin | 02/13/2020 | Renal cell | Results for this | | OLP | e | 9:24 AM | carcinoma of left | procedure are in the | | | | PDT | kidney (HCC) | results section. | + +--------+ + + + | [facility] - COMPLETE | Routin | 02/13/2020 | Renal cell | Results for this | | METABOLIC SET | e | 9:24 AM | carcinoma of left | procedure are in the | | | | PDT | kidney (HCC) | results section. | + +--------+ + + + | CBC AND AUTO DIFF - | Routin | 02/13/2020 | Renal cell | Results for this | | [facility] | e | 9:24 AM | carcinoma of left | procedure are in the | | | | PDT | kidney (HCC) | results section. | + +--------+ + + + from Last 3 Months Results OUTSIDE RADIOLOGY - MRI (04/19/2020) + + + | Narrative | Performed At | + + + | | | + + + CBC, WITH DIFFERENTIAL (04/12/2020) + +-------+ + [...] | | + +---------+ + + CT CHEST, ABDOMEN AND PELVIS W IV [...] report as now presented. Final signature: Shashank Leal | | Gregor Calderon MD 03/12/2020 1:11 [...] Preliminary: Shashank Calderon MD Dictation initiated: Shashank Calderon MD | | 03/12/2020 12:51 PM | [...] | | + +---------+ + + CBC AND AUTO DIFF - [facility] (03/12/2020 9:13 AM PDT)Only the most recent of 2 results within t he time period is included. + + + + + + | Component | Value | Ref Range | Performed | Pathologist | | | | | At | Signature | + + + + + + | WHITE CELL | 4.26 | 3.50 - 10.80 | [facility] | | | COUNT | | K/cu mm | LABORATORY | | | | | | SERVICES, | | | | | | [facility] | [facility] | | + + + + + + | RED CELL | 3.55 (L) | 4.00 - 5.20 | [facility] | | | COUNT | | M/cu mm | LABORATORY | | | | | | SERVICES, | | | | | | [facility] | | | | | | [facility] | | + + + + + + | HEMOGLOBIN | 10.4 (L) | 12.0 - 16.0 | [facility] | | | | | g/dL | LABORATORY | | | | | | SERVICES, | | | | | | [facility] | | | | | | [facility] | | + + + + + + | HEMATOCRIT | 33.9 (L) | 36.0 - 46.0 % | [facility] | | | | | | LABORATORY | | | | | | SERVICES, | | | | | | [facility] | | | | | | [facility] | | + + + + + + | MCV | 95.5 | 80.0 - 100.0 fL | [facility] | | | | | | LABORATORY | | | | | | SERVICES, | | | | | | [facility] + | | | | | | [facility] | | + + + + + + | MCHC | 30.7 (L) | 32.0 - 36.0 | [facility] | | | | | g/dL | LABORATORY | | | | | | SERVICES, | | | | | | [facility] + | | | | | | [facility] | | + + + + + + | RDW SD | 55.6 (H) | 35.1 - 46.3 fL | [facility] | | | | | | LABORATORY | | | | | | SERVICES, | | | | | | [facility] + | | | | | | [facility] | | + + + + + + | PLATELET | 89 (L) | 150 - 400 K/cu | [...] + + + + | NEUTROPHIL | 93.7 (H) | 50.0 - 70.0 % | [facility] | | | % | | | LABORATORY | | | | | | SERVICES, | | | | | | [facility] + | | | | | | [facility] | | + + + + + + | LYMPHOCYTE | 2.1 (L) | 18.0 - 42.0 % | [facility] | | | % | | | LABORATORY | | | | | | SERVICES, | | | | | | [facility] + | | | | | | [facility] | | + + + + + + | MONOCYTE % | 4.0 | 3.5 - 9.0 % | [facility] [...] + + + | BASO % | 0.0 | 0.0 - 2.0 % | [facility] [...] + + + + | NEUTROPHIL | 3.99 | 1.80 - 7.70 | [facility] | | | # | | K/cu mm | LABORATORY | | | | | | SERVICES, | | | | | | [facility] + | | | | | | [facility] | | + + + + + + | NEUTROPHIL | 3.99Comment: Preliminary | 1.80 - 7.70 | [facility] [...] + + + + | LYMPHOCYTE | 0.09 (L) | 1.00 - 4.80 | [facility] | | | # | | K/cu mm | LABORATORY | | | | | | SERVICES, | | | | | | [facility] + | | | | | | [facility] | | + + + + + + | MONOCYTE # | 0.17 | 0.10 - 0.90 | [facility] | [...] + + + | BASO # | 0.00 | 0.00 - 0.10 | [facility] | [...] + | [facility] | [address] | [place] [address] | | | SERVICES, [facility] | | | | [facility] + [facility] | | | | + + + + + [facility] - COMPLETE METABOLIC SET (03/12/2020 9:13 AM PDT)Only the most recent of 2 results wit hin the time period is included. + +---------+ + + + | Component | Value | Ref Range | Performed | Pathologist | | | | | At | Signature | + +---------+ + + + | GLUCOSE, | 115 (H) | 70 - 99 mg/dL | [facility] | | | PLASMA | | | LABORATORY | | | (LAB) | | | SERVICES, | | | | | | [facility] + | | | | | | [facility] | | + +---------+ + + + | BUN, PLASMA | 45 (H) | 6 - 20 mg/dL | [facility] | | | (LAB) | | | LABORATORY | | | | | | SERVICES, | | | | | | [facility] + | | | | | | [facility] | | + +---------+ + + + | CREATININE | 1.00 | 0.60 - 1.10 | [facility] | [...] | | | LABORATORY | | | [place] | | | SERVICES, | | | | | | [facility] + | | | | | | [facility] | | + +---------+ + + + | EGFR NON | 57 (L) | >60 mL/min | [facility] | | | -LISA | | | LABORATORY | | | [facility] | | | SERVICES, | | | | | | [facility] + | | | | | | [facility] | | + +---------+ + + + | SODIUM, | 140 | 136 - 145 | [facility] | | | PLASMA | | mmol/L | LABORATORY | | | (LAB) | | | SERVICES, | | | | | | [facility] + | | | | | | [facility] | | + +---------+ + + + | POTASSIUM, | 3.9 | 3.4 - 5.0 | [facility] | | | PLASMA | | mmol/L | LABORATORY | | | (LAB) | | | SERVICES, | | | | | | [facility] + | | | | | | [facility] | | + +---------+ + + + | CHLORIDE, | 105 [...] + + + | TOTAL CO2, | 23 | 21 - 32 mmol/L | [facility] | | | PLASMA | | | LABORATORY | | | (LAB) | | | SERVICES, | | | | | | [facility] + | | | | | | [facility] | | + +---------+ + + + | CALCIUM, | 8.9 | 8.6 - 10.2 | [facility] | | | PLASMA | | mg/dL | LABORATORY | | | (LAB) | | | SERVICES, | | | | | | [facility] | [facility] + | | | | | | [facility] | | + +---------+ + + + | CALCIUM(ALB | 9.0 | 8.6 - 10.2 | [facility] | | | CORRECTED) | | mg/dL | LABORATORY | | | | | | SERVICES, | | | | | | [facility] + | | | | | | [facility] | | + +---------+ + + + | BILIRUBIN | 1.6 (H) | 0.3 - 1.2 mg/dL | [facility] | | | TOTAL | | | LABORATORY | | | | | | SERVICES, | | | | | | [facility] + | | | | | | [facility] | | + +---------+ + + + | TOTAL | 7.3 | 6.4 - 8.2 g/dL | [facility] | | | PROTEIN, | | | LABORATORY | | | PLASMA | | | SERVICES, | | | (LAB) | | | [facility] | [facility] + | | | | | | [facility] | | + +---------+ + + + | ALBUMIN, | 3.9 | 3.5 - 4.7 g/dL | [facility] | | | PLASMA | | | LABORATORY | | | (LAB) | | | SERVICES, | | | | | | [facility] + | | | | | | [facility] | | + +---------+ + + + | ALK PHOS | 188 (H) | 42 - 98 U/L | [facility] | | | | | | LABORATORY | | | | | | SERVICES, | | | | | | [facility] + | | | | | | [facility] | | + +---------+ + + + | AST(SGOT) | 101 (H) | <=41 U/L | [facility] | | | | | | LABORATORY | | | | | | SERVICES, | | | | | | [facility] + | | | | | | [facility] | | + +---------+ + + + | ALT (SGPT) | 98 (H) | <=60 U/L | [facility] | | [...] +---------+ + + + | ANION | 12 [...] +---------+ + + + | BUN/CREATIN | 45 (H) | 8 - 25 | [facility] | | | INE RATIO | | | LABORATORY | | | | | | SERVICES, | | | | | | [facility] + | | | | | | [facility] | | + +---------+ + + + | GLOBULIN | 3.4 | 2.3 - 3.5 gm/dL | [facility] | | | LVL | | | LABORATORY | | | | | | SERVICES, | | | | | | [facility] + | | | | | | [facility] | | + +---------+ + + + | ALBUMIN/NICOLETTE | 1.1 | 0.7 - 2.8 | [facility] | [...] MDRD equation recommended by the National | [facility] | | Kidney Disease Education Program. Estimated [...] | + + + + + | [facility] | [address] | [place] [address] | | | SERVICES, [facility] | | | | [facility] + HEALING | | | | + + + + + FREE T4 (03/12/2020 9:13 AM PDT) + +---------+ + + + | Component | Value | Ref Range | Performed | Pathologist | | | | | At | Signature | + +---------+ + + + | FREE T4 | 1.4 (H) | 0.6 - 1.2 ng/dL | [...] [facility] | [address] | [place] [address] | | | SERVICES, CORE | [address] | | | + + + + + TSH (03/12/2020 9:13 AM PDT) + +-------+ + + + | Component | Value | Ref Range | Performed | Pathologist | | | | | At | Signature | + +-------+ + + + | TSH | 0.96 | 0.50 - 5.07 | [facility] | [...] | + + + + + | [facility] | [address] | [place] [address] | | | [address] | [address] | | | + + + + + SIMULATION IMAGING (03/06/2020 12:07 PM PDT)Only the most recent of 2 results within the [facility] period is included. + + | Specimen | + + [...] | | | + +---------+ + + MRI BRAIN WWO CONTRAST (02/27/2020 7:40 AM [...] Beyer MD 02/27/2020 9:25 AM Preliminary: Tonja Ferrell MD | | Dictation initiated: Tonja Ferrell [...] | | | + +---------+ + + from Last 3 Months Insurance +-------+--------+ +--------+ + +--------+ | Payer | Benefi | Subscriber | Effect | Phone | Address | Type | | | t Plan | ID | annalee | | | | | | / | | Dates | | | | | | Group | | | | | | +-------+--------+ +--------+ + +--------+ | GEHA | GEHA | [id number] | [birth year] | [phone] | [address] | Indemn | | | | | 18-Pre | [address] | [id number] | ity | | | | | sent | | [place], [place] | | | | | | | | [phone] | | +-------+--------+ +--------+ + +--------+ + +--------+ +--------+ + + | Guarantor Name | Accoun | Relation to | Date | Phone | Billing Address | | | t Type | Patient | of | | | | | | | | | | + +--------+ +--------+ + + | Tila Altman | Person | Self | [birth year] | [address] | | | al/Fam | | 1965 | [phone] | [place] [address] | | | corby | | | 4 (Home) | | + +--------+ +--------+ + + Advance Directives + + + + + | Code Status | Date | Date | Comments | | | Activated | Inactivated | | + + + + + | Full Code | 11/21/2019 | 11/29/2019 | | | | 5:12 PM | 5:20 PM | | + + + + + + + + +---+ | | | | | + + + +---+ | Full Code | 08/25/2019 | 09/01/2019 | | | | 3:22 AM | 9:03 PM | | + + + +---+
--- OUTSIDE RECORDS SUMMARY | ~2020-05-06 | XMS | Encounter Summary ---
Demographics + + + | Address | [address] | | | [place] [address] | + + + | Home Phone [...] Team Providers + +------+ + | Care Brim Ironer Hand Name | Role | Phone | + [...] | 2019 | Visit | Oncology | [address] | | | | | | [address] | | | | | | [place] | | | | | | [address] | | | | | | [phone] | | | | | | | | +--------+---------+ + + + documented as of this encounter Visit Diagnoses Not on filedocumented in this encounter"
--- OUTSIDE RECORDS SUMMARY | ~2020-05-06 | XMS | Encounter Summary ---
Demographics + + + | Address | [address] | | | [place] [address] | + + + | Home Phone | | + + + | Preferred Language | Unknown | + + + | Marital Status | Single | + + + | Jewish Affiliation | CHR | + + + [...] Team Providers + +------+ + | Care Sales Engineer Account Manager Name | Role | Phone | [...] Radiology | Diagnoses | Vuky, | Rad M[facility] | | | | | Kidney | Lissette, | [address] | | | | | cancer, | [place] [address] [address] | [facility] | | | | | primary, | [place] | [address] | | | | | with | Ct | Research | | | | | metastasis | [place] | | | | | from kidney | [place] | [place], [place] | | | | | to other | [address] | [address] | | | | | site, left | Phone: | Phone: | | | | | (HCC) | [phone] | [phone] | | | | | Procedures | Fax: | Fax: | | | | | MRI BRAIN | [phone] | [phone] | | | | | TUMOR | | | | | | | EVALUATION | | | | | | | WWO CONTRAST | | | | | | | [place] MRI | | | | | | | BRAIN COMBO | | | +--------+--------+ + + + + Diagnostic Testing (Routine) +--------+--------+ + + + + | Status | Reason | Specialty | Diagnoses / | Referred By | Referred To | | | | | Procedures | Contact | Contact | +--------+--------+ + + + + | Closed | | Radiology | Diagnoses | Vuky, | Rad Nuc Med | | | | | Kidney | Lissette, | [address] | | | | | cancer, | [place] [address] [address] | [facility] | | | | | primary, | [place] | [address] | | | | | with | Ct | Frederick Navas, | | | | | metastasis | [place], | [place] | | | | | from kidney | [place] | [place], [place] | | | | | to other | [address] | [address] | | | | | site, left | Phone: | Phone: | | | | | (HCC) | [phone] | [phone] | | | | | Procedures | Fax: | Fax: | | | | | NM BONE &/OR | [phone] | [phone] | | | | | JOINT | | | | | | | IMAGING | | | | | | | WHOLE BODY | | | | | | | [place] BONE | | | | | | | IMAGING, | | | | | | | WHOLE BODY | | | +--------+--------+ + + + + Reason for Visit Intake Referral (Urgent) + +---------+ + + + + | Status | Reason | Specialty | Diagnoses / | Referred By | Referred To | | | | | Procedures | Contact | Contact | + +---------+ + + + + | Authorized | Other | Hematology & | Diagnoses | Brown, | Vuky, | | | | Oncology | Malignant | Lissette | Lissette, | | | | | neoplasm of | E, PA-C | [address] | | | | | unspecified | [place] | [address] | | | | | kidney, | Family | [place], | | | | | except renal | Medicine | [place] [address] | | | | | pelvis | [address] | Phone: | | | | | Procedures | Pepe Frank | [phone] | | | | | [place] NEW | Tim, | Fax: | | | | | PATIENT | [place] [address] | [phone] | | | | | LEVEL [place] | Phone: | | | | | | EST PATIENT | [phone] | | | | | | LEVEL V | Fax: | | | | | | | [phone] | | + +---------+ + + + + Encounter Details +--------+---------+ + + + | Date | Type | Department | Care Team | Description | +--------+---------+ + + + | 08/22/ | Office | [facility] | Lissette Jones, | Kidney cancer, | | 2019 | Visit | Clinics at S | [place] [address] [address] | primary, with | | | | [facility] [address] | [address] | metastasis from | | | | [address] [place] for | [place], [place] | kidney to other | | | | [facility], | [address] | site, left (HCC) | | | | [address] | [phone] | (Primary Dx) | | | | [place], [place] | | | | | | [address] | | | | | | [phone] | | | +--------+---------+ + + + [...] + + + | Blood Pressure | 82/54 | 08/22/2019 10:57 AM | | | | | PST | | + + + + + | Pulse | 78 | 08/22/2019 10:57 AM | | | | | PST | | + + + + + | Temperature | 36.5 C (97.7 F) | 08/22/2019 10:57 AM | | | | | PST | | + + + + + | Respiratory Rate | 16 | 08/22/2019 10:57 AM | | | | | PST | | + + + + + | Oxygen Saturation | 100% | 08/22/2019 10:57 AM | | | | | PST [...] + + + documented in this encounter Progress Notes Lissette Jones MD - 08/22/2019 10:35 AM PSTFormatting of this note might be different fr om the original. INITIAL CONSULT NOTE Patient: Tila Altman Date: August 22, 2019 : 1965 AGE: 54 y.o. 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 woman who presents today to [facility] treatment options for metastatic kidney cancer. She complained of L sided back pain- went to chiropractor 06/28/19- manipulated, felt better but pain didn't go away. She came back a nd chiropractor said that back wasn't out of alignment. She was seen in urgent care- they ga ve her muscle relaxant- flexeril which didn't help. She presented to ER Jul 27, [address] a/p was performed with large renal mass, retroperitoneal LN and also liver lesions. SHe has a remote history of Hodgkins lymphoma s/p chemotherapy with CHOPP in 2001 (with RT of chest villanueva) She does have hypothyroidism and is on replacement therapy as a result. S/p liver bi opsy with clear cell carcinoma of kidney. She's had one episode of gross hematuria 07/2019 b ut none since. She's lost 30 pounds x 18 months not intentional- she was exercising but weig ht came off dramatically. Her biggest issue is pain control- currently on gydrocodone for pa in since 07/27/19- 1 every 4-5 hours but not effective. She did experience mild constipation initially but has resolved. Her back pain is towards the left side and is causing difficult y walking- she uses a walker at home Past Medical History: Past Medical History Diagnosis Date Hodgkin's disease (HCC) 2001 CHOPP and radiation therapy Hypothyroidism Past Surgical History: Past Surgical History Procedure Laterality Date C section Knee surgery Left 1980 Allergies No Known Allergies Current Outpatient Medications Medication Sig atenolol 50 mg oral tablet Take 25 mg by mouth once daily. HYDROcodone-acetaminophen 5-325 mg oral tablet Take 1 tablet by mouth every five hour a s needed for moderate pain. levothyroxine 125 mcg oral tablet Take 125 mcg by mouth before breakfast. lisinopril 5 mg oral tablet Take 5 mg by mouth once daily. lovastatin 20 mg oral tablet Take 20 mg by mouth once daily in the evening. Administer with evening meal. oxyCODONE (immediate release) 5 mg oral tablet Take 1-2 tablets by mouth every four edgar rs as needed for breakthrough pain. No current facility-administered medications for this visit. 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: [employer] Social Needs Financial resource strain: Not on [...] file Gets together: Not on file Attends faith service: Not on file Active member of club or organization: Not on file Attends meetings of clubs or organizations: Not on file Relationship status: Not on file Other Topics Concern Not on file Social History Narrative Lives in [place] Daughter in college Family History: Family History Problem Relation Diabetes Father Review of Systems: Eyes - Negative Ears/Nose/Mouth/Throat - Negative Cardiovascular - Negative Respiratory - Negative Gastrointestinal - Negative Neurologic/Psychiatric - Negative Allergic/Immunologic - Negative Hematologic/Lymphatic - Negative Endocrine - Negative All other ROS negative. Visit Vitals Item Reading BP 82/54 Pulse 78 Temp (Src) 36.5 C (97.7 F) (Oral) RR 16 Wt 0 kg () SpO2 100% Pain score: 9 ECOG Status: 1 - No physically strenuous activity, but ambulatory and able to carry out lig ht or sedentary work e.g. office work, light house work). Physical Examination: Constitutional in no apparent distress. HEENT Normocephalic, atraumatic. PERRL/EOMI Neck normal. Hematologic/Lymphatic No palpable cervical, supraclavicular, axillary, or inguinal lymphade nopathy. Respiratory chest clear, no wheezing, rales, normal symmetric air entry, chest is clear wit hout rales or wheezing Cardiovascular S1, S2 normal, no murmur, click, rub or gallop, regular rate and rhythm, no pedal edema, no JVD. Abdomen Abdomen is soft with tenderness to palpation LUQ Extremities No edema or clubbing. Integumentary Warm and dry. No rash or unusual ecchymoses. Neurologic normal without focal findings, mental status, speech normal, alert and oriented x iii, BRITANY, reflexes normal and symmetric. Psychiatric Coherent speech. Appropriate mood/affect. Laboratory: No visits with results within 1 Day(s) from this visit. Latest known visit with results is: Admission on 08/16/2019, Discharged on 08/16/2019 Component Date Value Clinical History 08/16/2019 Value:This result contains rich text formatting which cannot be displayed here. Final Pathologic Diagnos* 08/16/2019 Value:This result contains rich text formatting which cannot be displayed here. Gross Description 08/16/2019 Value:This result contains rich text formatting which cannot be displayed here. Ancillary Information 08/16/2019 Value:This result contains rich text formatting which cannot be displayed here. Impression: Tila Altman is a 54 y.o. woman with stage IV clear cell carcinoma of kidney metastatic to LN and liver. She is high risk due to liver metastatic disease and I would re commend ipilipumab/nivolulmab as initial therapy. She is also eligible for PEDIGREE trial wh ich is a trial for newly metastatic patients- all patients receive 4 cycles of ipi/nivo, if CR then continue nivo; if [place] or [place] then randomize to nivo +/- cabo and if POD then cabozanti nib. I have discussed case with Dr. Clemens our urological oncologist who would not operate at t his time due to liver metastasis and no evidence of bleeding. She is interested in clinical trial and research consent given to her and family to conside r. I did discuss side effects of ipi/nivo and also cabozantinib Tila and her sisters were given the opportunity to ask questions about this diagnosis and plan and indicated that all of her questions were answered. Plan: CT c/a/p Bone scan MRI brain Cbc, cmp, TSH/T4 RTC to discuss clinical trial if she's interested D/c hydrocodone/acetominophen, start oxycodone 5-10mg q 4hours prn Lissette Jones MD documented in this e ncounter Plan of Treatment +--------+---------+ + + + | Date | Type | Specialty | Care Team | Description | +--------+---------+ + + + | 06/26/ | Office | Hematology & | Lissette Jones, | | | 2020 | Visit | Oncology | [address] | | | | | | [address] | | | | | | [place] | | | | | | [address] | | | | | | [phone] | | | | | | | | +--------+---------+ + + + + +---------+--------+ + + | Name | Type | Priori | Associated Diagnoses | Order Schedule | | | | ty | | | + +---------+--------+ + + | MRI BRAIN TUMOR | Imaging | Routin | Kidney cancer, | Expected: | | EVALUATION WWO | | e | primary, with | 08/22/2019, Expires: | | CONTRAST | | | metastasis from | 09/22/2020 | | | | | kidney to other | | | | | | site, left (HCC) | | + +---------+--------+ + + documented as of this encounter Results NM BONE &/OR JOINT IMAGING WHOLE BODY [...]
--- OUTSIDE RECORDS SUMMARY | ~2020-05-06 | XMS | Encounter Summary ---
Demographics + + + | Address | [address] | | | [place] [address] | + + + | Home Phone [...] Author + + + | Author | [facility] | + + + | Organization | [facility] | + + + | Address | Unknown | + + + | Phone | Unavailable | + + + Support + + +---------+ + | Name | Relationship | Address | Phone | + + +---------+ + | William Talavera | ECON | Unknown | | + + +---------+ + Care Team Providers + +------+ + | Care Field Cashier Name | Role | Phone | + +------+ + | Lissette Martinez PA-C | PCP | | + +------+ + Encounter Details +--------+ + + + + | Date | Type | Department | Care Team | Description | +--------+ + + + + | 12/21/ | Documentati | [facility] | Yeni, | | | 2019 | on | at [facility] | DO [address]ette [address] | | | | | [address] | [address] [facility] | | | | | Loop Physician's | [place], [place] | | | | | [place], [address] [place] [address] | [address] | | | | | [place], [place] | [phone] | | | | | [address] | | | | | | [phone] | | | +--------+ + + + [...] this encounter Miscellaneous Notes Telephone Encounter - Jose Luis Mcnamara MA - 12/22/2019 11:27 AM PDTSnipped lab results for easy review and scanned to DNage tab. Electronically signed by Jose Luis Mcnamara MA at 12/21 11:30 AM PDTTelephone Encounter - Jose Luis Mcnamara MA - 12/22/2019 11:24 AM PDTElectr onically signed by Jose Luis Mcnamara MA at 12/22/2019 11:30 AM PDTdocumented in this encounte r Plan of Treatment +--------+---------+ + + + | Date | Type | Specialty | Care Team | Description | +--------+---------+ + + + | 06/26/ | Office | Hematology & | Lissette Jones, | | 2019 | Visit | Oncology | [address] [address] | | | [address] | | | | | | [facility] [place] | | | | | | [address] | | | | | | [phone] | | | | | | | | +--------+---------+ + + + documented as of this encounter Visit Diagnoses Not on filedocumented in this encounter"
--- OUTSIDE RECORDS SUMMARY | ~2020-05-06 | XMS | Encounter Summary ---
Demographics + + + | Address | [address] | | | [place] [address] | + + + | Home Phone [...] Team Providers + +------+ + | Care Linen Keeper Name | Role | Phone | + +------+ + | Lissette Martinez PA-C | PCP | | + +------+ + Encounter Details +--------+ + + + + | Date | Type | Department | Care Team | Description | +--------+ + + + + | 11/22/ | Procedure | Diagnostic Imaging | | | | 2019 | Pass | Services at [facility] | | | | | | [address] | | | | | | [place] | | | | | | [address] | | | | | | [place], [place] | | | | | | [address] | | | | | | [phone] | | | +--------+ + + + [...] | 2020 | Visit | Oncology | [address] | | | | | | [address] | | | | | | [place] | | | | | | [address] | | | | | | [phone] | | | | | | | | +--------+---------+ + + + documented as of this encounter Visit Diagnoses Not on filedocumented in this encounter"
--- OUTSIDE RECORDS SUMMARY | ~2020-05-06 | XMS | Encounter Summary ---
Demographics + + + | Address | [address] | | | [place] [address] | + + + | Home Phone [...] Team Providers + +------+ + | Care Road Consultant Name | Role | Phone | + +------+ + | Lissette Martinez PA-C | PCP | | + +------+ + Encounter Details +--------+ + + + + | Date | Type | Department | Care Team | Description | +--------+ + + + + | 03/21/ | Pharmacy | Pharmacy @ [facility] | | | | 2019 | Visit | [address] | | | | | | [address] Mailcode: | | | | | | [facility] | | | | | | and Healing, | | | | | | [address] | | | | | | [place], [place] | | | | | | [address] | | | +--------+ + + + [...] | 2019 | Visit | Oncology | [address] | | | | | | [address] | | | | | | [place] | | | | | | [address] | | | | | | [phone] | | | | | | | | +--------+---------+ + + + documented as of this encounter Visit Diagnoses Not on filedocumented in this encounter"
--- OUTSIDE RECORDS SUMMARY | ~2020-05-06 | XMS | Encounter Summary ---
Demographics + + + | Address | [address] | | | [place] [address] | + + + | Home Phone | | + + + | Preferred Language | Unknown | + + + | Marital Status | Single | + + + | Holiness Affiliation | CHR | + + + [...] Team Providers + +------+ + | Care Residential Team Leader Name | Role | Phone | + [...] [phone] | | | | | [address] [place] | | | | | | [address] | | | | | | [place], [place] | | | | | | [address] | | | | | | [phone] | | | +--------+ + + + [...] | 2019 | Visit | Oncology | [address] | | | | | | [address] | | | | | | [place] | | | | | | [address] | | | | | | [phone] | | | | | | | | +--------+---------+ + + + documented as of this encounter Visit Diagnoses Not on filedocumented in this encounter"
--- OUTSIDE RECORDS SUMMARY | ~2020-05-06 | XMS | Encounter Summary ---
Demographics + + + | Address | [address] | | | [place] [address] | + + + | Home Phone | | + + + | Preferred Language | Unknown | + + + | Marital Status | Single | + + + | Jehovah'S Witness Affiliation | CHR | + + + [...] Team Providers + +------+ + | Care Cereal Popper Name | Role | Phone | + [...] | | | | CONSULT TO | [place], [place] | Pavilion | | | | | ENDOCRINOLOG | [address] | Physician's | | | | | [place] | Phone: | Pavilion | | | | | PATIENT | [phone] | [place], [place] | | | | | L[place] | Fax: | [phone] | | | | | EST PATIENT | [phone] | Phone: | | | | | LEVEL V | | [phone] | | | | | | | Fax: | | | | | | | [phone] | + +--------+ + + + + [...] + + | 11/20/ | Hospital | [facility] [address] | Eul[place] Antonio, | | | 2019 - | Encounter | [address] | SHREYAS ROACH [address] | | | | | [place], [place] | [address] | | | 11/28/ | | [address] | [place], [place] | | | 2019 | | [phone] | [address] | | | | | | [phone] | | | | | | | | | | | | Lisa Steele, | | | | | | REDD-Casey [address] | | | | | | [address] | | | | | | [place], [place] | | | | | | [address] | | | | | | [phone] | | | | | | | | | | | | Jose Luis Segura | | | | | | MD Jasen [address] | | | | | | [address] | | | | | | [place], [place] | | | | | | [address] | | | | | | [phone] | | | | | | | | | | | | Tg Uriostegui MD | | | | | | [address] | | | | | | [facility], | | | | | | [place] [address] | | | | | | [phone] | | | | | | | | | | | | Lisa Sullivan MD | | | | | | [address] [facility] | | | | | | [facility], | | | | | | [place] [address] | | | | | | [phone] | | | | | | | | | | | | Nikki Márquez MD | | | | | | [address] [facility] | | | | | | [facility], | | | | | | [place] [address] | | | | | | [phone] | | | | | | | | | | | | Medina Thapa MD [address] | | | | | | [facility] | | | | | | [facility], [place] | | | | | | [address] | | | | | | [phone] | | | | | | | [...] Martinez DO - 11/29/2019 11:20 AM PDT [facility] Discharge Summary Discharging Provider: Lissette Jaime DO [...] was transferred to the MICU 11/22 after COMMUNITY DEVELOPMENT AIDE for a syncopal event 2/2 tacchyarhythmia and [...] heart strain # BL LE edema - [place] to be 2/2 to L renal vein [...] 8:20 AM LAB ONC RN Laboratory at [facility] [phone] PHLEBOTOMY 12/12/2019 8:55 AM Lissette Ortiz Hematology/Medical Oncology at [facility] g Arrive at: 10th Floor Hematology/Medical Oncology [phone] HemOnc 12/12/2019 10:20 AM Gen Onc Hematology/Medical Oncology at [facility] [phone] HemOnc 01/02/2020 9:00 AM LAB ONC RN Laboratory at [facility] [phone] PHLEBOTOMY 01/02/2020 9:45 AM Lissette Ortiz Hematology/Medical Oncology at [facility] ng Arrive at: 10th Floor Hematology/Medical Oncology [phone] HemOnc 01/02/2020 10:10 AM Gen Onc Hematology/Medical Oncology at [facility] [phone] HemOnc 01/06/2020 11:00 AM [facility] at [facility] [phone] [facility] Schedule the following appointment(s) when you get home Lissette Milner PA-C . Specialty: Physician Bi Consultant Contact information [address] [place] [phone] Discharge Physical Exam: Last 24 hour min/max [...] Lissette Jaime, DO Internal Medicine, PGY2 Pager [phone] Associated attestation - Nikki Márquez MD - 11/29/2019 4:18 PM PDTA resident assisted [facility] documenting this service. I saw the patient and reviewed and verified all information doc umented by the resident, and made modifications to such information, when appropriate. Nikki Márquez MD Shoulder Puncher Clinical and Teaching Hospitalist Services [facility] Pager [phone] I spent 37 minutes htzx-tj-aqaz with the patient of which 58% was spent counseling the mare ent or in coordination of care surrounding discharge planning. documented in this encounter Discharge Instructions Discharge Instr - AVS First Page Lissette Jaime DO - 11/29/2019 7:02 AM PDTWho to Clark l: HOW TO REACH YOUR MEDICAL TEAM WITH QUESTIONS, CONCERNS, OR NEW SYMPTOMS: Thank you for e ntrusting your care to [facility] Internal Medicine. If you have any problems or concerns before y ou are able to follow up with your Primary Care Provider, please call and ask the casting machine service operator to page the attending physician who was caring for you at discharge. If that p hysician is not available, ask the casting machine service operator to page the physician on-call for [...] hear from them please call them at [phone] to set up an appointment. You primitivo [...] labs to georgi Jaime DO ([facility] at [facility]) and Peggy Yoon MD (Endocrinology at [facility]) to e nsure these get appropriate follow-up. [...] sent through Care Everywhere.enoxaparin (Eng vincenzo)Enoxaparin (Lovenox) (Syriac)documented in this encounter Medications at Time of [...] Márquez MD - 11/29/2019 11:20 AM PDT [facility] Progress Note PATIENT: HANK ALTMAN : 1965 ADMIT DATE: 11/21/2019 12:12 PM DISCH DATE: 11/29/2019 11:20 AM RESPONDING PROVIDER #: [phone] Dear Provider, The dietitian notes patient meets [...] relation to disease process. Thank you, Odette [email or web address] Query created by: Odette Sotelo on 01/09/2020 [...] Date 11/28/19 0700 - 11/29/19 0659 Shift 8418-2048 [phone] 24 Hour Total INTAKE P.O. 100 100 [...] lymphoma s/p definitive CHOP + XRT c/b chronic manager josh hypothyroidism along with a more recently [...] - 11/28/2019 2:46 PM PDTA resident assisted [facility] documenting this service. I saw the patient [...] for discharge tomorrow am. Nikki Márquez MD Shoulder Puncher Clinical and Teaching Hospitalist Services [facility] Pager [phone] I spent 26 minutes in the care [...] Awaiting transfer to floor. LISA SULLIVAN MD [facility] [address] [facility] [address] [place] [address] pJuan ramires MD - 11/26/2019 10:20 AM PDT [facility] MEDICAL ICU - PROGRESS NOTE Hospital Day: [...] Primary Surrogate Decision Maker Amada Manzanares sister [phone] Secondary Surrogate Decision Maker William jay This [...] of renal cell carcinoma with hyperkalemia --> [facility] ed Hyperkalemia --> Medically manage [...] Code status/Family: Full code TG URIOSTEGUI MD [facility] [address] [place] [address] I spent 25 min in [...] kg (178 lb 6.4 oz) Mechanical Ventilation Emblem body weight: 50.1 kg (110 lb 7.2 oz) Adjusted ideal body weight: 64.1 kg (141 lb 3.6 oz) , -- SpO2: 98 % (11/25/191999) Last PaO2/FiO2 ratio: Plateau: Driving Pressure: PAO2/FIO2 RATIO Date/Time Value Ref Range Status 08/26/2019 10:20 AM 419 >300 mmHg Final Lab Results Component Value Date PH 7.33 (L) 08/26/2019 PCO2 34 08/26/2019 PO2 88 08/26/2019 HCO3 18 (L) 08/26/2019 E7APOHDC 97.2 08/26/2019 FIO2 0.21 08/26/2019 [id number] 419 08/26/2019 Lab Results Component Value Date VBGEXCESS -5.9 (L) 08/26/2019 VBGPH 7.29 (L) 08/26/2019 VBGPCO2 42 08/26/2019 VBGPO2 35 08/26/2019 VBGHCO3 20 (L) 08/26/2019 Up to Last 5 ABGs in 72 hours: No results for input(s): PH, PCO2, PO2, HCO3, BFSQO8ETQ, I4IJLQSG, Q9BGCGQAG, FIO2 in the l ast 72 hours. Lab Results Component Value Date PH 7.33 (L) 08/26/2019 PCO2 34 08/26/2019 PO2 88 08/26/2019 HCO3 18 (L) 08/26/2019 I1RSATFV 97.2 08/26/2019 FIO2 0.21 08/26/2019 [id number] 419 08/26/2019 Recent Labs 11/21/19 1909 11/22/19 [...] Lab Results Lab Test Name Value Date [id number] 5.6 08/26/2019 Lab Results Lab Test Name Value Date URICACID 3.5 09/01/2019 Lab Results Lab Test Name Value Date FREET4 2.2 11/25/2019 TSH 3.44 11/23/2019 TPOAB 0.3 11/21/2019 [id number] 86 11/21/2019 Lab Results Component Value Date [...] 45 min with pt. LISA SULLIVAN MD [facility] [address] [facility] [address] [place] [address] Megha Wiggins MD - 11/24 6:46 AM PDT [facility] MEDICAL ICU - PROGRESS NOTE Hospital Day: [...] Gross for the last 4 days Intake 47490.87 ml Output 4490 ml Net since Admission [...] trial diuresis as above. No indications for internal recruiter. - Q12 BMP - ensure at least [...] Primary Surrogate Decision Maker Amada Manzanares sister [phone] Secondary Surrogate Decision Maker William jay This [...] status/Family: Currently full code TG URIOSTEGUI MD [facility] [address] [place] [address] I spent 25 min in [...] kg (178 lb 6.4 oz) Mechanical Ventilation Emblem body weight: 50.1 kg (110 lb 7.2 oz) Adjusted ideal body weight: 64.1 kg (141 lb 3.6 oz) , -- SpO2: 99 % (11/24/191999) Last PaO2/FiO2 ratio: Plateau: Driving Pressure: PAO2/FIO2 RATIO Date/Time Value Ref Range Status 08/26/2019 10:20 AM 419 >300 mmHg Final Lab Results Component Value Date PH 7.33 (L) 08/26/2019 PCO2 34 08/26/2019 PO2 88 08/26/2019 HCO3 18 (L) 08/26/2019 S0PETOEL 97.2 08/26/2019 FIO2 0.21 08/26/2019 [id number] 419 08/26/2019 Lab Results Component Value Date VBGEXCESS -5.9 (L) 08/26/2019 VBGPH 7.29 (L) 08/26/2019 VBGPCO2 42 08/26/2019 VBGPO2 35 08/26/2019 VBGHCO3 20 (L) 08/26/2019 Up to Last 5 ABGs in 72 hours: No results for input(s): PH, PCO2, PO2, HCO3, GIFAZ7XYI, A1RGLEMS, D4KKSBUJL, FIO2 in the l ast 72 hours. Lab Results Component Value Date PH 7.33 (L) 08/26/2019 PCO2 34 08/26/2019 PO2 88 08/26/2019 HCO3 18 (L) 08/26/2019 S7MWQIXN 97.2 08/26/2019 FIO2 0.21 08/26/2019 [id number] 419 08/26/2019 Recent Labs 11/21/19 1909 11/22/19 [...] Lab Results Lab Test Name Value Date [id number] 5.6 08/26/2019 Lab Results Lab Test Name Value Date URICACID 3.5 09/01/2019 Lab Results Lab Test Name Value Date FREET4 2.4 11/24/2019 TSH 3.44 11/23/2019 TPOAB 0.3 11/21/2019 [id number] 86 11/21/2019 Lab Results Component Value Date [...] goals. Kassidy Chinchilla MD Hematology Oncology Fellow [phone] Associated attestation - Jacky Brand MD - 11/25/2019 8:29 AM PDTI reviewed history and physical examination of the patient and discussed her management with the fellow. I rev iewed the fellow's note and agree with the documented findings and plan of care. Jacky Brand MD [facility] [address] [place] [address] Cris Dinh MD - 11/24/2019 10:23 AM [...] is exclusive of procedures. Cris Dinh MD [facility] [address] [place] [address] oemi Cowan - 8:29 AM PDTTransthoracic echocardiogram completed. Final report to follow.John ically signed by Noemi Cowan at 11/24/2019 8:29 AM Megha Wiggins MD - 11/24/2019 8:09 AM PDT [facility] MEDICAL ICU - PROGRESS NOTE Hospital Day: [...] Primary Surrogate Decision Maker Amada Manzanares sister [phone] Secondary Surrogate Decision Maker William jay This [...] (FLORINDA) Assoc. Prof. Pulm Crit Care | [facility] [address] | Mailcode: UHN-67 | [facility] [address] | Time spent in critical care 20 [...] and fluid resuscitation. Echocar diography performed by ammonia operator showed reduced RV function and normal LV [...] radiology has been paged. TG URIOSTEGUI MD [facility] [address] [place] [address] I spent 95 min in critical care. Including time spent at [facility], in discussion with int erventional radiology [...] kg (178 lb 6.4 oz) Mechanical Ventilation Emblem body weight: 50.1 kg (110 lb 7.2 oz) Adjusted ideal body weight: 64.1 kg (141 lb 3.6 oz) , -- SpO2: 100 % (11/23/192099) Last PaO2/FiO2 ratio: Plateau: Driving Pressure: PAO2/FIO2 RATIO Date/Time Value Ref Range Status 08/26/2019 10:20 AM 419 >300 mmHg Final Lab Results Component Value Date PH 7.33 (L) 08/26/2019 PCO2 34 08/26/2019 PO2 88 08/26/2019 HCO3 18 (L) 08/26/2019 V4WWRUIL 97.2 08/26/2019 FIO2 0.21 08/26/2019 [id number] 419 08/26/2019 Lab Results Component Value Date VBGEXCESS -5.9 (L) 08/26/2019 VBGPH 7.29 (L) 08/26/2019 VBGPCO2 42 08/26/2019 VBGPO2 35 08/26/2019 VBGHCO3 20 (L) 08/26/2019 Up to Last 5 ABGs in 72 hours: No results for input(s): PH, PCO2, PO2, HCO3, XKEQH8APA, E6HYOEDW, K7RPGZIGP, FIO2 in the l ast 72 hours. Lab Results Component Value Date PH 7.33 (L) 08/26/2019 PCO2 34 08/26/2019 PO2 88 08/26/2019 HCO3 18 (L) 08/26/2019 T1BYBBOV 97.2 08/26/2019 FIO2 0.21 08/26/2019 [id number] 419 08/26/2019 Recent Labs 11/21/19 1909 11/22/19 [...] (H) 08/25/2019 Lab Results Component Value Date [id number] 5.6 08/26/2019 Lab Results Component Value Date URICACID 3.5 09/01/2019 Lab Results Component Value Date FREET4 2.7 11/23/2019 TSH 3.44 11/23/2019 TPOAB 0.3 11/21/2019 [id number] 86 11/21/2019 Lab Results Component Value Date [...] who agrees with the findings. Darlene Espitia Correspondence Representative Associated attestation - Sina Barrientos MD - [...] the patient regarding treatment options and recommendations. [facility] Database Repository: IRB [id number] No Known Allergies Current Facility-Administered Medications Medication [...] PO2 88 08/26/2019 HCO3 18 (L) 08/26/2019 I3AYMMUM 97.2 08/26/2019 FIO2 0.21 08/26/2019 [id number] 419 08/26/2019 Imaging: EKG findings: LBBB present: [...] our service with any questions. REDD ANGEL-Casey [facility] [address] [phone] eigh Ann Hussein DO - 11/23/2019 2:33 [...] Date 11/23/19 0700 - 11/24/19 0659 Shift [phone] 0313-9407 24 Hour Total INTAKE I.V. 10 10 [...] prophylaxis: Heparin BID -- Lines/catheters: PIVX1 -- PT/OT/LEAN ENGINEER: N/A Disposition: Pending clinical course; if able to maintain blood pressures through evening a nd tomorrow afternoon, with improving thyroid serologies, can discharge to home as early as tomorrow afternoon. CODE: Full code SDM(s): Amada Manzanares (Sister) -- [phone] Leigh Ann Hussein, DO PGY-2 | Internal Medicine [id number] Associated attestation - Jose Luis Segura MD [...] with our plans. Jose Luis Segura MD Shoulder Puncher Division of Hospital Medicine Teaching Attending I [...] Primary Surrogate Decision Maker Amada Manzanares sister [phone] Secondary Surrogate Decision Maker William jay Disposition: Home when medically stable Pt seen and discussed with Dr. Segura and team. Odette Palacios MD Internal Medicine, PGY-1 Pager [phone] Noemi Horn - 11/22/2019 10:07 AM PDTTransthoracic echocardiogram completed. Final report to follow.Elect ronically signed by Noemi Cowan at 11/22/2019 10:07 AM PDTNomei Cowan - 11/22/2019 8 :54 AM PDTTTE [...] in AM. Cristopher Cooper MD Resident physician [facility] Dept [place] [phone] Internal Medicine History and Physical Attending Physician: [...] metastatic renal cell carcinoma (clear cell type). 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 Dixon Amaya MD PGY2 [id number] signed by Nikki Márquez MD at 11/27/2019 [...] well, discharge mid week. Nikki Márquez MD Shoulder Puncher Clinical and Teaching Hospitalist Services [facility] Pager [phone] I spent 38 minutes in the care of this patient. Greater than 50% of the time was spent cou nseling and coordination of care, including treatment of PE, discharge planning. Juan Grossman MD - 11/23/2019 10:53 PM PDTFormatting of this note might be different f rom the original. 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 CQYQ=684, Class V. -IR consulted, appreciate recs: -feel [...] Primary Surrogate Decision Maker Amada Manzanares sister [phone] Secondary Surrogate Decision Maker William Talavera sister [...] was sent to the emergency department. 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 Ortiz. Was to receive cycle 3/4 ipi/nivo 11/20, [...] Amada Condon MD Internal Medicine PGY-1 Pager [phone] Associated attestation - Jose Luis Segura MD [...] with our plans. Jose Luis Segura MD Shoulder Puncher Division of Hospital Medicine Teaching Attending I [...] IV LR 1L (1L was administered in COMMUNITY DEVELOPMENT AIDE) - Repeat BMP with improvement in serum [...] Primary Surrogate Decision Maker Amada Manzanares sister [phone] Secondary Surrogate Decision Maker William jay This patient will be staffed with attending physician, Dr. Flores within 24 hours. Plea se refer to excellent general internal medicine physician H&P for full problem based plan. Pavan Ramos MD Internal Medicine, PGY-2 Pager: [phone] awrLisa jha PA-C - 11/21/2019 2:37 PM [...] infusion clinic where she remained h ypotensive. COMMUNITY DEVELOPMENT AIDE was called and she was brought to [...] swollen today. 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 History [...] see CXR report for confirma tion Vein timber sizer technique: Ultrasound Guidance Techique: The standard Seldinger [...] critical care time . TG URIOSTEGUI MD [facility] [address] [place] [address] Juan Grossman MD - 11/23/2019 7:48 PM [...] critical care time . TG URIOSTEGUI MD [facility] [address] [facility] [address] [place] [address] documented in this encounter Consult Notes Abbie [...] If it i s done outside of [facility] please have results routed to her inbox. Anticipate levothyroxine shawn l need to be restarted at a decreased dose. Abbie Mack MD Endocrinology Fellow Pager [phone] Patient discussed with attending supervisor enrobing Dr. Regan Funk. alla, Nash Osorio [facility] - 11/27/2019 8:09 PM PDTForm atting of [...] and make recommendations. Please page clinical pharmacist (#[phone]) or call central inpatient pharmacy ([phone]) with questions Thank you for the consult, Nash Dodge, PharmD Pager#: [phone] Subjective/Objective: Allergies: Patient has no known allergies. [...] Added to top of note ranci Soler [facility] - 11/26/2019 12:24 PM PDTFormatting of this note might be differe nt from the original. Pharmacy Services: Enoxaparin Anticoagulation Note Assessment/Plan: - Hank Altmna is a 54 year old female anticoagulated [...] and make recommendations. Please page clinical pharmacist (#[phone]) or call central inpatient pharmacy ([phone]) with questions Allergies: Patient has no known [...] BP 90-100 still on norepi but off EXHAUST TENDER 11/25: T4 1.8 off norepi BP 90/40 received IVF boluses which improved BP, transferring to nm oor - if continues to be hemodynamically [...] peripherally . Peggy Yoon Endocrine Fellow Pager [phone] I have staffed the patient with consult [...] BP 90-100 still on norepi but off EXHAUST TENDER - can dc cholestyramine since having issues [...] to follow. Peggy Yoon Endocrine Fellow Pager [phone] I have staffed the patient with consult [...] - labs 1 week post discharge at [facility] (labs ordered by Peggy Yoon) - outpatient endocrine consult already placed Thank you for this consult. The endocrine consult team will continue to follow. 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, lungs, invasion of left pulm onary artery, L2 metastatic spread Patient Active Problem List Diagnosis Date Noted Hyperthyroidism 11/22/2019 Hypotension, unspecified hypotension type 11/21/2019 Closed compression fracture of body of L1 vertebra ([facility]) 11/21/2019 Hypothyroidism, unspecified type 11/21/2019 Renal cell carcinoma, unspecified laterality ([facility]) 11/21/2019 Hypotension 08/31/2019 Proteinuria 08/30/2019 Hematuria 08/30/2019 JONO (acute kidney injury) ([facility]) 08/30/2019 Elevated blood uric acid level 08/30/2019 Normocytic anemia 08/30/2019 Leukopenia 08/30/2019 Closed compression fracture of L2 lumbar vertebra, initial encounter ([facility]) 08/25/2019 Renal cell carcinoma of left kidney ([facility]) 08/25/2019 Hyperkalemia 08/24/2019 Hypothyroidism 08/24/2019 Compression fracture of L2 vertebra ([facility]) 08/24/2019 Renal cell adenocarcinoma ([facility]) 08/23/2019 Hypercalcemia of malignancy 08/23/2019 Surgical History: [...] 0659 11/23/19 07 - 11/24/19 0659 Shift 8999-8455 24 Hour Total 4003-3732 8219-1347 2489-6944 24 Hour Total INTAKE P.O. 620 580 580 I.V. 10 10 1000 1010 IV Piggyback 1000 Shift Total 1630 10 1580 1590 OUTPUT Urine(mL/kg/hr) 300(0.4) 1625(0.8) 850(1.3) 325 1175 Shift Total(mL/kg) 300(3.5) 1625(19.1) 850(10) 325(3.8) 1175(13.8) Weight (kg) 85 85 85 85 85 85 Date 11/23/19 07 - 11/24/19 0659 Shift 1988-7352 7865-7509 5977-0313 24 Hour Total INTAKE P.O. 580 580 [...] edited the note accordingly. Shaggy Michaels MD Shoulder Puncher of Vascular and Interventional Radiology [facility] Department of Interventional Radiology [facility] Radha Beach MD - 11/23/2019 8:57 AM [...] Radha Beach MD PGY3 Internal Medicine pager [phone] I have staffed the patient with consult [...] hyperthyroidism and stabilization Peggy Yoon MD (pager [phone]) - RN please page primary team first Endocrinology Fellow Reason for Consult: hyperthyroidism Consult Attending: Isabel Requesting Attending: Jose Luis Segura MD Brief HPI: Patient Hodgkins Lymphoma [id number]. Patient had radiation to chest under chin to under tran ast bone. Radiation caused low thyroid. Patient has been on thyroid medication since 2002. 3 weeks ago dosage increased to 175 mcg from 150/135 mcg. No labs to check thyroid since [facility] that change. Patient has lost 30 [...] non contrast imaging. Only imaging is at [facility]. No extra doses of thyroid medication that [...] Hall MD Endocrinology, Diabetes and Clinical Nutrition [address] [place] [id number] Tres Sharp MD - 11/22/2019 8:51 [...] kidney #Metastatic disease to bone, liver, lung, [place] [address] #Hematuria #Chronic L renal vein thrombosis [...] and plan of care. Jacky Brand MD [facility] 4A [address] [place] [address] Karrie ROACH, Peggy - 11/21/2019 6:08 PM [...] blood pressure. Renal cell carcinoma on chemotherapy COMMUNITY DEVELOPMENT AIDE due to hypotension Asymptoamtic hypotension Tachycardic Pedal [...] 24-72 hours Peggy Yoon Endocrine Fellow Pager [phone] signed by Farrukh Hall MD at 11/22/2019 [...] for input(s): FIO2, PH, PCO2, PO2, HCO3, [id number], C5UYUOOY, A5JLLWQKY in the l ast 720 hours. CSF [...] with staff Dennis Roa MD Neurosurgery PGY3 [id number] Risk and Morbidity Patient Risk Modifiers - Including but not limited to. Age: 54 y.o. female DNR: Full Code Transfer status/urgency : From Outside Hospital : From [facility] ER: Patient Acuity: 2 (11/21/19 122) Destination: [...] Eye Response: 4-->(E4) spontaneous (11/21/19 1220) Score ([place] Coma Scale): 15 (11/21/19 1220) Comatose State: If GCS<9 Then patient by definition is in a comatose state Score ([place] Coma Scale) Min: 15 Max: 15 Loss [...] 08/30/2019 Hematuria 08/30/2019 JONO (acute kidney injury) ([facility]) 08/30/2019 Elevated blood uric acid level 08/30/2019 Normocytic anemia 08/30/2019 Leukopenia 08/30/2019 Closed compression fracture of L2 lumbar vertebra, initial encounter ([facility]) 08/25/2019 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) 08/25/2019 Hyperkalemia 08/24/2019 Hypothyroidism 08/24/2019 Compression fracture of L2 vertebra ([facility]) 08/24/2019 Renal cell adenocarcinoma (HCC) 08/23/2019 Hypercalcemia [...] of care as documented. Horacio Coleman MD Shoulder Puncher Department of Neurological Surgery [facility] Tres Dennis MD - 11/21/2019 5:20 PM [...] c/ns, localizing infectious symptoms per ED provider. COMMUNITY DEVELOPMENT AIDE was called, and transferred to the emergency [...] voice recognition software. Occasional wr jacob-word or "rjxcr-b-qycb" substitutions may have occurred due to the [...] and plan of care. Jacky Brand MD [facility] 4A [address] [place] [address] Aroldo Whyte - 11/21/2019 4:52 PM PDTFormatting of this note might be different from the sterling marley. Pharmacy Services: Retail Sales Merchandiser Development Admission Medication Reconciliation I have reviewed the [...] Product Dose Route Frequency N/A Additional Information: Xroxpjbonnjsokz27,000 units cap, taking 1 cap once a week, last dose taken yesterday 11/19. Other medications last dose taken was this morning 11/20. Lovastatin 20mg tablet, last dose taken lasts night 11/19. No other OTCs, vitamins, eye/ear drops were reported. Confirmed with patient, MORIS. Allergies: No Known Allergies Pharmacy Preferences: [facility] #[id number] [place] [id number] Hours: 9am-7pm Mon-fri / 9am-6pm Sat / 10am-5pm Sun E-Prescribing: Yes E-Prescribing Control Substances: Yes [facility] Building [address] [facility] Room [address] [place] [address] Hours: 8am-6pm Mon-thu E-Prescribing: Yes E-Prescribing Control Substances: Yes [facility] [address] [facility] [address] [place] [address] Hours: 8am-9pm Mon-fri; 9-5:30pm Sat-sun E-Prescribing: Yes [...] PDTAgree with plan as outlined by pharmacy technology instructor/general internal medicine physician/technician assistant. Samy Joseph, Pharm.D., [facility] Clinical Pharmacist, [place] [phone] documented in this encounter ED Notes Ginny [...] arrived on 5B.El ectronically signed by Lore Case RN at 11/21/2019 2:57 PM PDTLore Case, R N - 11/21/2019 2:51 PM PDTBed: 5B3 Expected date: Expected time: Means of arrival: Comments: AC16 Report given. ED CUSTOMER SERVICE REPRESENTATIVE TELLER to bring pt.Electronically signed by Holly Brandon RN at 0 11/21/2019 2:51 PM Holly Siddiqui RN - 11/21/2019 2:46 PM PDTRN Admission/Transfe r Note Reason for admission: JONO, Elevated Potassium, volume resuscitation. Pertinent physical findings (Focused assessment, Pain/discomfort, Neuro, Cards/tele and Res p assessment): Patient non-symptomatic with BP 92/59 currently. NSR, sinus tach on ekg monitor tech with HR currently 105. Pertinent PMHx (See [...] infusion clinic where she remaine d hypotensive. COMMUNITY DEVELOPMENT AIDE was called and she was brought to [...] -> no current need for shift - radiation monitor ED Course Following Sign Out: Care signed out to the oncoming RADHA/POWER BRAKE OPERATOR/MD at the end of my shift. Mary [...] by Dr. Antonio and DENG COPE MD: [facility] Hank Altman is a 54 y.o. female [...] the pt IV fluids and called an COMMUNITY DEVELOPMENT AIDE with transported ot the ED. PCP: Lissette [...] fracture of L2 lumbar vertebra, initial encounter ([facility]) 08/25/2019 Renal cell carcinoma of left kidney [...] compression fracture of lumbar vertebra, initial encounter ([facility]) Hypertension Past Surgical History Procedure Date C [...] (H) 0.60 - 1.10 mg/dL EGFR - NIGERIEN 20 (L) >60 mL/min EGFR NON -NIGERIEN 17 (L) >60 mL/min SODIUM, PLASMA (LAB) [...] (H) 0.60 - 1.10 mg/dL EGFR - NIGERIEN 19 (L) >60 mL/min EGFR NON -NIGERIEN 15 (L) >60 mL/min SODIUM, PLASMA (LAB) [...] (H) 0.60 - 1.10 mg/dL EGFR - NIGERIEN 20 (L) >60 mL/min EGFR NON -NIGERIEN 17 (L) >60 mL/min SODIUM, PLASMA (LAB) [...] (H) 0.60 - 1.10 mg/dL EGFR - NIGERIEN 20 (L) >60 mL/min EGFR NON -NIGERIEN 17 (L) >60 mL/min SODIUM, PLASMA (LAB) [...] y.o. female presenting from infusion clinic after COMMUNITY DEVELOPMENT AIDE was called lelo mireles to asymptomatic hypotension. [...] compression fracture of body of L1 vertebra ([facility]) E87.5 Hyperkalemia E03.9 Hypothyroidism, unspecified type C64.9 Renal cell carcinoma, unspecified laterality ([facility]) E05.90 Hyperthyroidism E83.52 Hypercalcemia of malignancy S32.020A Closed compression fracture of L2 lumbar vertebra, initial encounter ([facility]) C64.2 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) E79.0 Elevated blood uric acid level D64.9 Normocytic anemia PLAN, DISPOSITION AND FOLLOW-UP: Admitted to ED obs, stable Current Discharge Medication List Luh Pearce RN - 11/21/2019 12:21 PM PDTBIBA from [facility] for hypotension. Pt was there for a [...] - 11/21/2019 11:49 AM PDTPT coming from [facility] for hypotension, BP 60/30---->70/30 cbg 108mg/dL documente [...] WC to sister's car to home in [place], [place]. andoff - Ellie Holguin RN - 11/28/2019 5:42 PM PDTNursing Handoff Patient Daily Goal: discharge tomorrow (11/28/19 0842) Patient Specific Preferences: Raise and lower HOB slowly 2/2 motion sickness. (1999) [facility] IP NURSE HANDOFF: [facility] course events: [...] jennaa l. Occupational Therapy Evaluation and Treatment [id number] HANK CHANCEH Date of : 1965 Start of care: 11/21/2019 Date of onset: 11/21/2019 Referring/Attending Practitioner: Nikki Márquez MD Primary/Referral Diagnosis/ICD-9: I95.9 Hypotension, unspecified hypotension type N17.9 JONO (acute kidney injury) ([facility]) S32.010A Closed compression fracture of body of L1 vertebra ([facility]) E87.5 Hyperkalemia E03.9 Hypothyroidism, unspecified type C64.9 Renal cell carcinoma, unspecified laterality ([facility]) E05.90 Hyperthyroidism E83.52 Hypercalcemia of malignancy S32.020A Closed compression fracture of L2 lumbar vertebra, initial encounter ([facility]) C64.2 Renal cell carcinoma of left kidney ([facility]) E79.0 Elevated blood uric acid level D64.9 Normocytic anemia Insurance: Payor: [employer] / Plan: [employer] / Product Type: Indemnity / Service period: [...] feet access Toileting: modified independent Bathing: NT [facility] daily activity assessment [facility] DAILY ACTIVITY - How much help from another person does the patient currently need f or: Lower body dressing 2 - Alot Bathing 3 - Little Toileting 4 - None Upper body dressing 4 - None Personal grooming 4 - None Eating meals 4 - None [facility] Daily Activity Total Score 21 1 - [...] assistance. Discharge recommendations below. ? Interpretation of [facility] Short Form Daily Activity: Score (in points) [...] lower HOB slowly 2/2 motion sickness. (1999) [facility] IP NURSE HANDOFF: [facility] course events: [...] Evaluation 11/27/2019 3:21 PM Hospital Day: 6 [id number] HANK ALTMAN Date of : 1965 Start of care: 11/21/2019 Referring/Attending Practitioner: Nikki Márquez MD Primary/Referral Diagnosis/ICD-9: I95.9 Hypotension, unspecified hypotension type N17.9 JONO (acute kidney injury) ([facility]) S32.010A Closed compression fracture of body of L1 vertebra ([facility]) E87.5 Hyperkalemia E03.9 Hypothyroidism, unspecified type C64.9 Renal cell carcinoma, unspecified laterality ([facility]) E05.90 Hyperthyroidism E83.52 Hypercalcemia of malignancy S32.020A Closed compression fracture of L2 lumbar vertebra, initial encounter ([facility]) C64.2 Renal cell carcinoma of left kidney ([facility]) E79.0 Elevated blood uric acid level D64.9 Normocytic anemia Insurance: Payor: [facility] / Plan: [facility] / Product Type: Indemnity / Service period [...] Patient / Family Goal: return home Language: martiniquais Individuals present for session other than therapist [...] rehabilitation: assessment and treatme nt (5th ed.). Pope: [facility]. p.254 Mobility & Transfers: Supine to [...] 75-100% of activity Depend ent Outcome Measure(s): [facility] BASIC MOBILITY Difficulty turning over in bed [...] w/railing 2 - Alot - Maximum/Moderate Assistance [facility] Basic Mobility Total Score 17 Interpretation of [facility] Short Form - Basic Mobility: CMS Modifier [...] wheeled walker Neville Simmons PT, DPT Pager [phone] Should this patient discharge from the hospital prior to the next physical therapy treatmen t, this note shall serve as the discharge summary. andoff - Anita Dowling RN - 11/27/2019 1:39 AM PDTNursing Handoff Patient Daily Goal: Improve mobility (11/26/19 8969) Patient Specific Preferences: Raise and lower HOB slowly 2/2 motion sickness. (1999) [facility] IP NURSE HANDOFF: [facility] course events: [...] Handoff Patient Daily Goal: Improve mobility (11/26/19 6102) Patient Specific Preferences: Raise and lower HOB slowly 2/2 motion sickness. (1999) [facility] IP NURSE HANDOFF: [facility] course events: [...] lower HOB slowly 2/2 motion sickness. (1999) [facility] IP NURSE HANDOFF: [facility] hospital course events: As per Dr. Uriostegui's note 11/23 evening roun ds: Hank is a 54 y.o. female with prior history of Hodgkin's lymphoma in 2002 who has stage I V advanced renal cell carcinoma with multiple metastases including lung, liver as well as jana mbar spine. Patient had a recent kyphoplasty and was admitted with hypotension and OJNO in t he setting of thyrotoxicosis. Patient [...] admitted to MICU on 11/[address] COMMUNITY DEVELOPMENT AIDE with syncopal event and tacchyarhythmia and worse [...] lower HOB slowly 2/2 motion sickness. (1999) [facility] IP NURSE HANDOFF: [facility] events: [...] following, Leah Paiz, MS, RD, LD Pager #[phone] Admitting Dx: Hank Altman is a 54 [...] hx: 95.7 kg (08/16/19) Estimated Nutrition Needs: 1106-6148 kcals (25-30 kcal/kg Adj BW), 69-87 gm [...] Monitorin g;NIBP Monitoring;SpO2 Monitoring (11/23/191821) Situation: Situation: COMMUNITY DEVELOPMENT AIDE called for code blue activation. Patient awake and communicative by the time COMMUNITY DEVELOPMENT AIDE arrives. Primary team at bedside and believes the patient may have vaso-vagaled. After wards, her HR was elevated, her BP was trending down, she required more oxygen and looked di aphoretic, complaining of chest pain. Labs were drawn, EKG and chest x-ray was taken, 1L LR started. Patient transferred to with COMMUNITY DEVELOPMENT AIDE, MICU fellow and CPRN. Cards to consult. [...] team) (11/23/191821) Caller: Infusion Clinic (11/21/19 1210) COMMUNITY DEVELOPMENT AIDE RN: NatalyElectronmary kay signed by Nataly Kaminski RN at 11/23/2019 6:49 PM PDTTran sfer Note - Leigh Ann Hussein DO - 11/23/2019 6:34 PM PDTBRIEF COMMUNITY DEVELOPMENT AIDE/TRANSFER NOTE Moose estrada called around 18:00 for [...] Full code SDM(s): Amada Glenna (Sister) -- [phone] Leigh Ann Hussein DO PGY-2 | Internal Medicine [id number] signed by Leigh Ann Hussein DO at 11/23/2019 6:50 PM PDTPlan of Care - Nadiya Monreal MSW - 11/23/2019 6:34 PM PDTSW responded to code. SW provided emotional support to patient's sister. ILAN Lloyd, [facility] Evening/Weekend Social Work Pager: [phone] ignificant Event - Josh Ratliff, MISAEL - [...] pain to be managed at 10/17 (11/21/192124) [facility] IP NURSE HANDOFF: [facility] course events: [...] pain to be managed at 2/10 (11/21/192124) [facility] IP NURSE HANDOFF: [facility] hospital course events: [...] pain to be managed at 2/10 (11/21/192124) [facility] IP NURSE HANDOFF: [facility] course events: [...] pain to be managed at 2/10 (11/21/192124) [facility] IP NURSE HANDOFF: [facility] hospital course events: [...] labs at noon. Barriers to discharge: TBD. [facility] Devon Bañuelos - 11/21/2019 12:01 PM PDT12:00 PM 11/21/2019 M333, 7 min eta. 54 yof, coming from [facility], was there for infusion. Had low bp [...] CT Initial BP 74/57 with HR 106 COMMUNITY DEVELOPMENT AIDE called Just IV in Vitals same Dizzy but otherwise asymptomatic Baseline Cr ~1.5 Today Cr 3.8 Coming by ambulance after COMMUNITY DEVELOPMENT AIDE [facility] Miranda Mcconnell - 11/21/2019 11:48 AM PDTConnected ref with ED Charge RNElectronically s igned by Miranda Workman at 11/21/2019 11:48 AM PDTdocumented in this encounter Plan of Treatment +--------+---------+ + + + | Date | Type | Specialty | Care Team | Description | +--------+---------+ + + + | 06/26/ | Office | Hematology & | Lissette Ortiz, | | | 2019 | Visit | Oncology | [address] | | | | [address] | | | | | | [facility] [place] | | | | | | [address] | | | | | | [phone] | | | | | | | [...] CL, TCO2, | | e | injury) ([facility]) | | | BUN, CR, GLU, CA) | | | Hyperthyroidism | | + +------+--------+ + + | FREE T4 | Lab | Routin | JONO (acute kidney | Ordered: 11/29/2019 | | | | e | injury) ([facility]) | | | | | | Hyperthyroidism [...] 99 | 70 - 99 mg/dL | [facility] | | | GLUCOSE, | | | [facility] | | | POC | | | [...] [facility] | [address] | [place], [place] | | | JOCELYNE POINT OF CARE | [address] | [address] | | | TESTS | | | [...] (L) | 70 - 99 mg/dL | [facility] [...] [facility] | [address] | [place], [place] | | | JOCELYNE POINT OF CARE | [address] | [address] | | | TESTS | | | [...] [facility] | [address] | [place] [address] | | | SERVICES, CORE | PARK [...] [facility] | [address] | [place] [address] | | | SERVICES, CORE | PARK [...] [facility] | [address] | [place] [address] | | | SERVICES, CORE | PARK [...] utilizing a similar TSH assay, and | DWIGHT MARTINEZ | | should be interpreted with caution. | | + + + + + + + + | Performing | Address | City/State/Zipcode | Phone Number | | Organization | | | | + + + + + | [facility] | [address] | [place] [address] | | | DWIGHT MARTINEZ | MELBA [...] + + | [facility] | [address] | [place] [address] | | | SERVICES, CORE | PARK [...] | | | LABORATORY | | | NIGERIEN | | | SERVICES, | | | [...] MDRD equation recommended by the National | [facility] | | Kidney Disease Education Program. Estimated [...] | + + + + + | [facility] | [address] | [place] [address] | | | SERVICES, CORE | PARK [...] | + + + + + | [facility] | [address] | [place] [address] | | | SERVICES, CORE | MELBA [...] - | | | | | | [place] | | + +-------+ + + + [...] + | [facility] | [address] | [place] [address] | | | [place] | | | | + + + [...] | + + + + + | [facility] | [address] | [place] [address] | | | SERVICES, CORE | MELBA [...] 84 | 70 - 99 mg/dL | [facility] - | | | GLUCOSE, | | [...] + + + | [facility] | [address] | [place], [place] | | | JOCELYNE POINT OF CARE | [address] | [address] | | | TESTS | | | [...] [facility] | [address] | [place], [place] | | | JOCELYNE POINT OF CARE | [address] | [address] | | | TESTS | | | [...] + | [facility] | [address] | [place], [place] | | | JOCELYNE POINT OF CARE | [address] | [address] | | | TESTS | | | [...] [facility] | [address] | [place], [place] | | | K[facility]EN [facility] OF [facility] | [address] | [address] | | | TESTS | | | [...] | | | LABORATORY | | | NIGERIEN | | | SERVICES, | | | [...] | + + + + + | [facility] | [address] | [place] [address] | | | SERVICES, DWIGHT | MELBA [...] + + | [facility] | [address] | [place] [address] | | | SERVICES, DWIGHT | [address] | | | + [...] LABORATORY | | | | | | MICHELLE, | | | | | | CORE [...] | + + + + + | [facility] | [address] | [place] [address] | | | SERVICES, CORE | MELBA [...] 95 | 70 - 99 mg/dL | [facility] - | | | GLUCOSE, | | [...] [facility] | [address] | [place], [place] | | | JOCELYNE POINT OF CARE | [address] | [address] | | | TESTS | | | [...] [facility] | [address] | [place], [place] | | | KAREN CASNA[facility] OF CARE | [address] | [address] | | | TESTS | | | [...] | + + + + + | [facility] | [address] | [place], [place] | | | JOCELYNE POINT OF CARE | [address] | [address] | | | TESTS | | | [...] | | | LABORATORY | | | NIGERIEN | | | SERVICES, | | | [...] MDRD equation recommended by the National | [facility] | | Kidney Disease Education Program. Estimated [...] | + + + + + | [facility] | [address] | [place] [address] | | | SERVICES, CORE | PARK [...] LABORATORY | | | | | | MICHELLE, | | | | | | CORE | | + +---------+ + + + + + | Specimen | + + | Blood - Blood | | (substance) | + + + + + + + | Performing | Address | City/State/Zipcode | Phone Number | | Organization | | | | + + + + + | [facility] | [address] | [place] [address] | | | SERVICES, CORE | MELBA [...] [facility] | [address] | [place], [place] | | | JOCELYNE POINT OF CARE | [address] | [address] | | | TESTS | | | [...] [facility] | [address] | [place] [address] | | | SERVICES, CORE | PARK [...] | + + + + + | [facility] | [address] | [place] [address] | | | DWIGHT MARTINEZ | MELBA [...] 87 | 70 - 99 mg/dL | [facility] - | | | GLUCOSE, | | [...] [facility] | [address] | [place], [place] | | | K[facility]EN [facility] | [address] | [address] | | | TESTS | | | [...] [facility] | [address] | [place] [address] | | | SERVICES, CORE | PARK [...] | | | LABORATORY | | | NIGERIEN | | | SERVICES, | | | [...] MDRD equation recommended by the National | [facility] | | Kidney Disease Education Program. Estimated [...] | + + + + + | [facility] | [address] | [place] [address] | | | SERVICES, CORE | PARK [...] | + + + + + | [facility] | [address] | [place] [address] | | | SERVICES, CORE | MELBA [...] [facility] | [address] | [place] [address] | | | SERVICES, CORE | PARK [...] | | | LABORATORY | | | NIGERIEN | | | SERVICES, | | | [...] MDRD equation recommended by the National | [facility] | | Kidney Disease Education Program. Estimated [...] [facility] | [address] | [place] [address] | | | SERVICES, DWIGHT | MELBA [...] LABORATORY | | | | | | MICHELLE, | | | | | | CORE [...] | + + + + + | [facility] | [address] | [place] [address] | | | SERVICES, CORE | MELBA [...] | | | LABORATORY | | | NIGERIEN | | | SERVICES, | | | [...] MDRD equation recommended by the National | [facility] | | Kidney Disease Education Program. Estimated [...] | + + + + + | [facility] | [address] | [place] [address] | | | SERVICES, CORE | MELBA [...] | + + + + + | [facility] | [address] | [place] [address] | | | DWIGHT MARTINEZ | MELBA REBOLLEDO | | | + [...] | + + + + + | [facility] | [address] | [place] [address] | | | SERVICES, CORE | MELBA [...] [facility] | [address] | [place] [address] | | | SERVICES, CORE | PARK [...] [facility] | [address] | [place] [address] | | | SERVICES, CORE | PARK [...] | | | LABORATORY | | | NIGERIEN | | | SERVICES, | | | [...] MDRD equation recommended by the National | [facility] | | Kidney Disease Education Program. Estimated [...] [facility] | [address] | [place] [address] | | | SERVICES, CORE | PARK [...] | + + + + + | [facility] | [address] [facility] | [place] [address] | | | SERVICES, CORE | PARK [...] | + + + + + | [facility] | [address] [facility] | [place] [address] | | | SERVICES, CORE | MELBA [...] | | | LABORATORY | | | NIGERIEN | | | SERVICES, | | | [...] | + + + + + | [facility] | [address] | [place] [address] | | | SERVICES, CORE | MELBA [...] [facility] | [address] | [place] [address] | | | SERVICES, CORE | MELBA [...] | | | LABORATORY | | | NIGERIEN | | | SERVICES, | | | [...] MDRD equation recommended by the National | [facility] | | Kidney Disease Education Program. Estimated [...] | + + + + + | [facility] | [address] | [place] [address] | | | DWIGHT MARTINEZ | MELBA [...] (H) | 70 - 99 mg/dL | [facility] - | | | GLUCOSE, | | [...] [facility] | [address] | [place], [place] | | | KAREN CASANOVA OF CARE | [address] | [address] | | | TESTS | | | [...] | + + + + + | [facility] | [address] | [place] [address] | | | SERVICES, CORE | MELBA [...] Note | + + | Service Account, [facility] In Interface - 11/24/2019 4:02 PM [...] [facility] | | | | | VAS US | | | | + +---------+ [...] Range: (75 - 120) sec Heparin | DWIGHT MARTINEZ | | levels of 0.35 - 0.7 U/mL | | + + + + + + + + | Performing | Address | City/State/Zipcode | Phone Number | | Organization | | | | + + + + + | [facility] | [address] [facility] | [place] [address] | | | DWIGHT MARTINEZ | MELBA [...] | + + + + + | [facility] | [address] [facility] | [place] [address] | | | DWIGHT MARTINEZ | MELBA [...] | + + + + + | [facility] | [address] | [place] [address] | | | SERVICES, CORE | MELBA [...] | | | LABORATORY | | | NIGERIEN | | | SERVICES, | | | [...] MDRD equation recommended by the National | [facility] | | Kidney Disease Education Program. Estimated [...] | + + + + + | [facility] | [address] | [place] [address] | | | SERVICES, CORE | PARK [...] [facility] | [address] | [place] [address] | | | SERVICES, CORE | PARK [...] | + + + + + | [facility] | [address] | [place] [address] | | | SERVICES, CORE | PARK [...] report for | | | confirmation Vein timber sizer technique: Ultrasound Guidance | | | Techique: [...] + + + + + + | NORI-CHRISTINE | 438 | ms | [facility] [...] DEPT OF | [address] | [place], [place] | | | CARDIOLOGY | [address] | [address] | | + + + + + [...] | + + + + + | [facility] | [address] | [place] [address] | | | SERVICES, CORE | MELBA [...] | | | LABORATORY | | | NIGERIEN | | | SERVICES, | | | [...] | + + + + + | [facility] | [address] [facility] | [place] [address] | | | SERVICES, DWIGHT | MELBA [...] [facility] | [address] | [place], [place] | | | AKREN [facility]ANOVA OF [facility] | [facility] | [address] | | | TESTS | | | [...] | + + + + + | [facility] | [address] [facility] | [place] [address] | | | [facility] | [address] | | | + + + + + CT ABDOMEN W IV CONTRAST (11/23/2019 9:51 PM PDT) + + | Specimen | + + | | + + + + + | Narrative | Performed At | + + + | EXAM: CT of the abdomen WITH contrast HISTORY: Evaluate renal | [facility] | | veins for tumor thrombus. COMPARISON: [...] Note | + + | Service Account, [employer] Res In Interface - 11/24/2019 8:02 AM [...] CT abdomen. Critical results were discussed with Dr. | | Alejandra Sage and the ICU [...] At | + + + | EXAM: WV CHEST 1 VIEW HISTORY: L IJ line [...] Account, Radiant Res In Interface - 11/24/2019 9:02 AM PDT EXAM: WV CHEST 1 | | VIEW HISTORY: L [...] formed At | + +---- + | [facility] | [facility] | | [facility] Adult [facility]chocardiography [facility] [address] | CAR DIOLOGY | | [place] [address] Ph: | | | Pt Name: HANK ALTMAN | | | Study Date/Time 11/23/2019 / 6:54:37 PMMRN: [id number] | | | Most recent prior: 11/22/2019Acc #: [id number] | | | No. previous echos: 2DOB: 1965 54 years | | | Heart Rate: 75 bpmHeight: 62.0 in | | | Blood Pressure: 100/73 mm/HgWeight: 187.0 lb | | | Gender: FBSA: 1.86 m | | | Order ID: [id number] Study | | | Location: 7ASonographer: Darlene [...] Report electronically signed by: | | | [id number] Annette Martinez MD, PhD (11/24/2019, 8:55:30 AM) [...] | | | |Report electronically signed by: [id number] Annette Martinez MD, PhD (11/24/2019, | | |8:55:30 AM) | | | | | | | | | | | | Final | | + +---- + + + | Procedure Note | + + | Interface, Cardiology Results - 11/24/2019 8:55 AM [facility] | | [facility] | | [place], [place] [address] Pt Name: HANK ALTMAN | | Study Date/Time 11/23/2019 / 6:54:37 PMMRN: [id number] Most | | recent prior: 11/22/2019Acc #: [id number] No. previous echos: 2DOB: | | 1965 54 years Heart Rate: 75 bpmHeight: 62.0 in Blood | | Pressure: 100/73 mm/HgWeight: 187.0 lb Gender: FBSA: | | 1.86 m | | Order ID: [id number] Study Location: 7ASonographer: Darlene | | SunnyriSonographer [...] effusion is seen. Report electronically signed by: [id number] Annette Martinez MD, PhD | | (11/24/2019, [...] | | | |Report electronically signed by: [id number] Annette Martinez MD, PhD (11/24/2019, | |8:55:30 AM) | | | | | | | | Final | + + + + + + + | Performing | Address | City/State/Zipcode | Phone Number | | Organization | | | | + + + + + | [facility] | [address] [facility] | [place], [place] | | | CARDIOLOGY | [address] | [address] | | + + + + + X-RAY PORTABLE CHEST 1 VIEW (11/23/2019 6:29 PM PDT) + + | Specimen | + + | | + + + + + | Narrative | Performed At | + + + | EXAM: WV CHEST 1 VIEW HISTORY: Shortness of breath [...] Interface - 11/24/2019 10:00 AM PDT EXAM: WV CHEST 1 | | VIEW HISTORY: Shortness [...] | + + + + + | [facility] | [address] | [place] [address] | | | SERVICES, CORE | MELBA [...] | + + + + + | [facility] | [address] [facility] | [place] [address] | | | DWIGHT MARTINEZ | MELBA [...] 25.2 (L) | 26.0 - 36.0 | [facility] | [...] + + | [facility] | [address] | [place] [address] | | | DWIGHT MARTINEZ | MELBA [...] mech. valves (2.5 - 3.5) INR | MICHELLE, CORE | + + + + + + + + | Performing | Address | City/State/Zipcode | Phone Number | | Organization | | | | + + + + + | [facility] | [address] [facility] | [place] [address] | | | SERVICES, DWIGHT | MELBA [...] + + | [facility] | [address] | [place] [address] | | | SERVICES, CORE | MELBA [...] | | | LABORATORY | | | NIGERIEN | | | SERVICES, | | | [...] | + + + + + | [facility] | [address] | [place] [address] | | | DWIGHT MARTINEZ | MELBA [...] [facility] | [address] | [place] [address] | | | SERVICES, CORE | MELBA [...] + + + + + + | QTC-BANESHATT | 457 | ms | [facility] DEPT [...] + | [facility] | [address] | [place], [place] | | | CARDIOLOGY | [address] | [address] | | + + + + + [...] | | | LABORATORY | | | NIGERIEN | | | SERVICES, | | | [...] | + + + + + | [facility] | [address] | [place] [address] | | | SERVICES, CORE | MELBA [...] | | | | | | Supine: [place] (1-7 | | | | | | [...] D: | | | | | | [email or web address] | | | | | | med by [facility] | | | | | | Laboratories,[address] | | | | | | [address], [place] [address] | | | | | | [phone]. | | | | | | Denis [...] [facility] | [address] | [place], [place] | | | UNIV PTH - INTFC | | [address] | | + + + + + [...] | | | this test in the [facility] | | | | | | Laboratory Test | | | | | | Directory | | | | | | ([facility]).Performed | | | | | | by [facility],[address] | | | | | | [address], [place] | | | | | | [address] | | | | | | [phone].[email or web address] [facility]. | | | | | | [facility], Denis Pitts MD, | | | | [...] + + | [facility] | [address] | [place], [place] | | | UNIV PTH - INTFC | | [address] | | + + + + + [...] [facility] | [address] | [place] [address] | | | SERVICES, CORE | PARK [...] | | | LABORATORY | | | NIGERIEN | | | SERVICES, | | | [...] MDRD equation recommended by the National | [facility] | | Kidney Disease Education Program. Estimated [...] [facility] | [address] | [place] [address] | | | SERVICES, CORE | PARK [...] | + + + + + | [facility] | [address] | [place] [address] | | | SERVICES, CORE | PARK [...] (H) | 0.6 - 1.2 ng/dL | [facility] | | | | | | LABORATORY | | | | | | MICHELLE, | | | | | | CORE | | + +---------+ + + + + + | Specimen | + + | Blood - Blood | | (substance) | + + + + + + + | Performing | Address | City/State/Zipcode | Phone Number | | Organization | | | | + + + + + | [facility] | [address] | [place] [address] | | | SERVICES, CORE | MELBA [...] | | | LABORATORY | | | NIGERIEN | | | SERVICES, | | | [...] | 25 | 8 - 25 | [facility] | | | INE RATIO | | [...] MDRD equation recommended by the National | [facility] | | Kidney Disease Education Program. Estimated [...] | + + + + + | [facility] | [address] | [place] [address] | | | SERVICES, CORE | MELBA [...] + + + + + | [facility] | [address] | [place] [address] | | | SERVICES, DWIGHT | [address] | | | + [...] | + + + + + | [facility] | [address] | [place] [address] | | | SERVICES, CORE | MELBA [...] [facility] | [address] | [place], [place] | | | KAREN CASANOVA OF CARE | [address] | [address] | | | TESTS | | | [...] + + | [facility] | [address] | [place], [place] | | | KAREN CASANOVA OF CARE | [address] | [address] | | | TESTS | | | | + + + + + 12 LEAD ECG (11/22/2019 3:54 PM PDT) + + + + + + | Component | Value | Ref Range | Performed | Pathologist | | | | | At | Signature | + + + + + + | VENTRICULAR | 104 | bpm | [facility] | | [...] + + + + | QTC-BAMAURA | 431 | ms | [facility] DE[facility] [...] + | [facility] | [address] | [place], [place] | | | CARDIOLOGY | [address] | [address] | | + + + + + [...] | | | LABORATORY | | | NIGERIEN | | | SERVICES, | | | [...] MDRD equation recommended by the National | [facility] | | Kidney Disease Education Program. Estimated [...] + + | [facility] | [address] | [place] [address] | | | SERVICES, CORE | PARK [...] (H) | 70 - 99 mg/dL | [facility] | | | PLASMA | | | [...] | | | LABORATORY | | | NIGERIEN | | | SERVICES, | | | [...] | + + + + + | [facility] | [address] | [place] [address] | | | SERVICES, CORE | MELBA [...] Performed At | + ----+ + | [facility] | [facility] | | [facility] Adult Ech[facility] [address] | CARDIOLOGY | | [place], [place] [address] Ph: | | | Pt Name: HANK ALTMAN | | | Study Date/Time 11/22/2019 / 9:28:58 AMMRN: [id number] | | | Most recent prior: 08/26/2019Acc #: [id number] | | | No. previous echos: 1DOB: 1965 54 years | | | Heart Rate: 109 bpmHeight: 63.0 in | | | Blood Pressure: 96/56 mm/HgWeight: 178.0 lb | | | Gender: FBSA: 1.84 m | | | Order ID: [id number] Study | | | Location: 4ASonographer: Noemi Cowan [facility]erring Provider: LISA Harmon | | | LAWRENCEModalities [...] | | | been obtained from the [facility] Transthoracic Echocardiographic Report | | | + [...] Report | | | electronically signed by: [id number] Silva Herrera MD (11/22/2019, | | | [...] | | | |Report electronically signed by: [id number] Silva Herrera MD (11/22/2019, 11:04:06 AM) | | | | | | | | | | | | Final | | + ----+ + + + | Procedure Note | + + | Interface, Cardiology Results - 11/22/2019 11:04 AM PDT [facility] | | [facility] [address] [place] [address] | | [place], [place] [address] Pt Name: HANK MONCADA | | [facility] Study Date/Time 11/22/2019 / 9:28:58 AMMRN: [id number] Most | | recent prior: 08/26/2019Acc #: [id number] No. previous echos: 1DOB: | | 1965 54 years Heart Rate: 109 bpmHeight: 63.0 in Blood | | Pressure: 96/56 mm/HgWeight: 178.0 lb Gender: FBSA: | | 1.84 m | | Order ID: [id number] Study Location: 4ASonographer: Noemi | | [facility]Referring Provider: LISA STEELEModalities Performed: 2D, Color flow, | | Spectral [...] and indexed values Report electronically signed by: [id number] [facility] | | Javier ROACH (11/22/2019, 11:04:06 AM) [...] | | | |Report electronically signed by: [id number] Silva Herrera MD (11/22/2019, 11:04:06 AM) | | | | | | | | Final | + + + + + + + | Performing | Address | City/State/Zipcode | Phone Number | | Organization | | | | + + + + + | [facility] | [address] | [place], [place] | | | CARDIOLOGY | [address] | [address] | | + + + + + [...] [facility] | [address] | [place], [place] | | | KAREN CASANOVA OF KATHERINE | [facility] | [address] | | | TESTS | | | | + + + + + CAPILLARY BLOOD GLUCOSE (NO CHG), POC (11/22/2019 7:19 AM PDT) + +-------+ + + + | Component | Value | Ref Range | Performed | Pathologist | | | | | At | Signature | + +-------+ + + + | BLOOD | 91 | 70 - 99 mg/dL | [facility] [...] | [facility] | [address] | [place], [place] | | | JOCELYNE POINT OF CARE | [facility] | [address] | | | TESTS | | | [...] [facility] | [address] | [place] [address] | | | SERVICES, CORE | PARK [...] [facility] | [address] | [place] [address] | | | SERVICES, CORE | PARK [...] | + + + + + | [facility] | [address] | [place] [address] | | | SERVICES, CORE | PARK [...] | + + + + + | [facility] | [address] | [place] [address] | | | SERVICES, CORE | PARK [...] | + + + + + | [facility] | [address] | [place] [address] | | | SERVICES, CORE | MELBA [...] | | | LABORATORY | | | NIGERIEN | | | SERVICES, | | | [...] | + + + + + | [facility] | [address] | [place] [address] | | | SERVICES, DWIGHT | MELBA [...] by | | | | | | [facility],[address] | | | | | | [address], [place] | | | | | | [address] | | | | | | [phone].Aerie Pharmaceuticalslab. | | | | | | Denis [...] + + | [facility] | [address] | [place], [place] | | | UNIV PTH - INTFC | | [address] | | + + + + + [...] | [facility] | | | PEROXIDASE | [facility],[address] | | REG UNIV | | | AB | [address], [place], [place] | | PTH - INTFC | | | | [address] | | | | | | [phone].[email or web address]. | | | | | | Denis [...] [facility] | [address] | [place], [place] | | | UNIV PTH - INTFC | | [address] | | + + + + + NT-PRO BNP (11/21/2019 7:09 PM PDT) + + + + + + | Component | Value | Ref Range | Performed | Pathologist | | | | | At | Signature | + + + + + + | NT-PRO BNP | 3,981 (H) | <125 pg/mL | [facility] | | | | | | LABORATORY [...] | + + + + + | [facility] | [address] | [place] [address] | | | SERVICES, CORE | PARK [...] | | | LABORATORY | | | NIGERIEN | | | SERVICES, | | | [...] | + + + + + | [facility] | [address] | [place] [address] | | | SERVICES, DWIGHT | [address]ELBA [...] [facility] | [address] | [place] [address] | | | SERVICES, CORE | [address] [...] - | | | | | | [place] | | + +--------+ + + + [...] + | [facility] - | [address] | [place] [address] | | | [place] | | | | + + + [...] + + + + + + | QTC-BANESHATT | 425 | ms | [facility] [...] DEPT OF | [address] | [place], [place] | | | CARDIOLOGY | [address] | [address] | | + + + + + [...] | + + + + + | [facility] | [address] | [place] [address] | | | SERVICES, CORE | [address] | | | + + + + + ADRIANA SANTIAGO (11/21/2019 2:07 PM PDT) + + + [...] | [facility] | | | GRAVITY | [place] performed by | | LABORATORY | | [...] | + + + + + | [facility] | [address] | [place] [address] | | | SERVICES, CORE | MELBA [...] [facility] | [address] | [place] [address] | | | SERVICES, CORE | [address] | | | + + + + + 12 LEAD ECG (11/21/2019 1:06 PM PDT) + + + + + + | Component | Value | Ref Range | Performed | Pathologist | | | | | At | Signature | + + + + + + | VENTRICULAR | 102 | bpm | [facility] | | [...] + + + + | QTC-CHRISTINE | 447 | ms | [facility] [...] + + + + + | [facility] | [address] [facility] | [place], [place] | | | CARDIOLOGY | [address] | [address] | | + + + + + X-RAY PORTABLE CHEST 1 VIEW (11/21/2019 12:46 PM PDT) + + | Specimen | + + | | + + + + + | Narrative | Performed At | + + + | EXAM: WV CHEST 1 VIEW HISTORY: low BP. History [...] Interface - 11/21/2019 1:13 PM PDT EXAM: WV CHEST 1 | | VIEW HISTORY: low [...] |Preliminary: Omayra Azar MD | |Dictation initiated: Oamyra Azar MD 11/21/2019 1:03 PM | + [...] COLLECTIVE?NOTIFICATION?11/21/2019 12:10?HANK ALTMAN?MRN: | COLLECTIVE | | [id number] Criteria Met PDMP Security and Safety No | MEDICAL | | recent Security Events currently on file ED Care Guidelines There | TECHNOLOGIES | | are currently no ED Care Guidelines for this patient. Please check | | | your facility's medical records system. Prescription Drug | | | Report (12 Mo.) Rx Details Fill Date Drug Description Qty. | | | Prescriber CS MED 2019-11-10 OXYCODONE HCL 5 MG TABLET [...] 5-325 MG | | | 112 CLEVE MILNER MS 2 20 2019-07-27 HYDROCODONE-ACETAMIN 5-325 MG | | | 30 GUERO SKAGGS MD 2 50 Rx Summary Metric Count CS II-V Rx | | | 8 CS-II Rx 8 Quantity Dispensed 766 Unique Prescribers 5 | | | Unique Pharmacies 3 Benzos 0 Opioids 8 Long Acting Opioids 0 | | | E.D. Visit Count (12 mo.) Facility Visits [facility] | | | [facility] 2 [facility] 2 Total 4 Note: | | | Visits indicate total known visits. Recent Emergency Department | | | Visit Summary Date Facility City State Type Diagnoses or Chief | | | Complaint Nov 21, 2019 [facility] [place] | | [place] Emergency 10,800. AMR 33 Nov 04, 2019 [facility] | | | [place] Emergency group home (current) use of opiate | | | analgesic Hypothyroidism, unspecified Hyperkalemia | | | Other skilled nursing (current) drug therapy Aug 24, 2019 [facility] | | | and [facility] [place] Emergency 10,800. abnormal | | | labs 18,400. Malignant neoplasm of left kidney, except renal | | | pelvis 18,400. Wedge compression fracture of second lumbar | | | vertebra, init 18,400. Hyperkalemia 18,400. Hypercalcemia | | | Jul 27, [address] [facility] [place] Emergency Other | | | exterminator (current) drug therapy Other specified disorders of | | | kidney and ureter Low back pain Hematuria, unspecified | | | Recent Inpatient Visit Summary Date Facility City State Type | | | Diagnoses or Chief Complaint Aug 24, 2019 [facility] | | | [place] Inpatient 18,400. Hyperkalemia | | | 18,400. Wedge compression fracture of second lumbar vertebra, init | | | 18,400. Hypercalcemia 18,400. Malignant neoplasm of left | | | kidney, except renal pelvis Care Team Provider Specialty | | | Phone Fax Service Dates LISSETTE MA PA Physician Bi Consultant | | | Nov 07, 2019 - Current | | | [employer] Portal This patient has registered at the [facility] | | | [facility] Emergency Department For more information | | | visit: | | | [email or web address] | | | [email or web address] PLEASE NOTE: 1. Any care recommendations [...] or completeness of information provided. ? 2020 [employer] | | | [employer]. - www.GO Outdoors.[employer] | | + + + + + | Procedure Note | + + | Service Account, Rtf Results Inbound - 11/21/2019 12:12 PM PDT Formatting of this | | note might be different from the original.COLLECTIVE?NOTIFICATION?11/21/2019 12:10?[place], | | HANK Nettles? Met PDMPSecurity and SafetyNo recent Security Events | | currently on fileED Care GuidelinesThere are currently no ED Care Guidelines for this | | patient. Please check your facility's medical records system.Prescription Drug Report | | (12 Mo.)Rx DetailsFill Date Drug Description Qty. Prescriber CS MED 2019-11-10 OXYCODONE | | HCL 5 MG TABLET 90 LISSETTE ORTIZ MD 2 96.429 2019-10-25 OXYCODONE HCL 5 MG TABLET 90 | | LISSETTE ORTIZ MD 2 96.429 2019-10-10 OXYCODONE HCL 10 MG TABLET 60 LISSETTE ORTIZ, | | 2 60 2019-09-09 OXYCODONE HCL [...] Visit Count (12 | | mo.)Facility Visits [facility] 2 [facility] 2 | | Total 4 Note: Visits indicate total known visits. Recent Emergency Department Visit | | SummaryDate Facility City State Type Diagnoses or Chief Complaint Nov 21, 2019 [place] | | [facility] [place] Emergency 10,800. AMR 33 Nov 04, 2019 [facility] | | 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 Emergency 10,800. | | abnormal labs 18,400. Malignant neoplasm of left kidney, except renal pelvis | | 18,400. Wedge compression fracture of second lumbar vertebra, init 18,400. | | Hyperkalemia 18,400. Hypercalcemia Jul 27, 2019 [facility] [place] | | Emergency Other skilled nursing (current) drug therapy Other specified disorders of | | kidney and ureter Low back pain Hematuria, unspecified Recent Inpatient Visit | | SummaryDate Facility [facility] Type Diagnoses or Chief Complaint Aug 24, 2019 [place] | | [facility] [place] Inpatient 18,400. Hyperkalemia 18,400. | | Wedge compression fracture of second lumbar vertebra, init 18,400. Hypercalcemia | | 18,400. Malignant neoplasm of left kidney, except renal pelvis Care TeamProvider | | Specialty Phone Fax Service Dates LISSETTE MA PA Physician Bi Consultant ([phone]) | | [phone] Nov 07, 2019 - Current Oculus VRThis patient has | | registered at the [facility] Emergency Department For more | | information visit: | | [email or web address] PLEASE | | NOTE: 1. Any care [...] completeness of information | | provided.? 2020 Prevent[employer].fr. - [email or web address] | |[facility] 2 | |Total 4 | |Note: Visits indicate total known visits. | | | |Recent Emergency Department Visit Summary | |Date Facility City State Type Diagnoses or Chief Complaint | |Nov 21, 2019 [facility] [place] Emergency | | 10,800. AMR 33 | | | |Nov 04, 2019 [facility] [place] Emergency | | vermin exterminator (current) use of opiate analgesic | | Hypothyroidism, unspecified | | Hyperkalemia | | Other skilled nursing (current) drug therapy | | | |Aug 24, 2019 [facility] [place] Emergency | | 10,800. abnormal labs | | 18,400. Malignant neoplasm of left kidney, except renal pelvis | | 18,400. Wedge compression fracture of second lumbar vertebra, init | | 18,400. Hyperkalemia | | 18,400. Hypercalcemia | | | |Jul 27, 2019 [facility] [place] Emergency | | Other exterminator (current) drug therapy | | Other specified disorders of kidney and ureter | | Low back pain | | Hematuria, unspecified | | | | | | | |Recent Inpatient Visit Summary | |Date Facility City State Type Diagnoses or Chief Complaint | |Aug 24, 2019 [facility] [place] Inpatient | | 18,400. Hyperkalemia | | 18,400. Wedge compression fracture of second lumbar vertebra, init | | 18,400. Hypercalcemia | | 18,400. Malignant neoplasm of left kidney, except renal pelvis | | | | | | | |Care Team | |Provider Specialty Phone Fax Service Dates | |LISSETTE MA PA Physician Bi Consultant Nov 07, 2019 - Curr ent | | | |Collective Portal | |This patient has registered at the [facility] Emergency Departmen t | |For more information visit: [email or web address] | |PLEASE NOTE: | | 1. Any [...] information provided. | | | |? 2020 Prevent[employer].fr. - [email or web address] | + + + + + + + | Performing | Address | City/State/Zipcode | Phone Number | | Organization | | | | + + + + + | [facility] | [address] | [place], [place] | [phone] | | TECHNOLOGIES | [address] | [address] | | + + + + + [...] | + + + + + | [facility] | [address] | [place] [address] | | | SERVICES, CORE | [address] [...] | | | | | modification) on [facility] 11/24/19 at | | | | | [...] | | | | ONCE, 1 dose, Merissa 11/22/19 at 0630 | | AM PDT | | | | + +---------+ +-----+---+---+ +---+---+ | | | +---+---+ + +-------+ +-----+---+---+ | cholestyramine (with sugar) | Given | 11/24/19 | 4 g | | | | (QUESTRAN) packet 4 g 4 g, oral, | | 20 6:40 | | | | | DAILY, First dose on Yazmin 11/24/19 | | PM PDT | | | [...] | | | | | dose on 11/21/19 at 2200, | | | | | [...] mL, intravenous, ONCE, 1 | | 20 4:33 | | | | | dose, 11/22/19 at 1700 | | PM PDT | | | | + +-------+ +-------+---+---+ +---+---+ | | | +---+---+ + +-------+ +-------+---+---+ | dextrose 50 % in water IV 50 mL | Given | 11/23/19 | 50 mL | | | | 50 mL, intravenous, ONCE, 1 | | 20 8:36 | | | | | dose, 11/23/19 at 2030 | | PM PDT [...] | | | | | modification) on 11/28/19 at | | | | | | [...] 3:12 | | | | | dose, Ania 11/25/19 at 1230 | | PM PDT | [...] | | mg 40 mg, intravenous, ONCE, | | 20 8:36 | | | | | dose, 11/25/19 at 1830 | | PM PDT [...] | | | | | | Starting 11/23/19 at 1845, | | | | | | | Until Thu20 at 2234 | | | | | [...] | | 12 HOURS, First dose on Thu | | AM [...] | | 2 doses, First dose on Mon | | AM PDT | | [...] (PF) (SOLU-CORTEF) injection 100 | | 20 11:21 | | | | | mg 100 mg, intravenous, EVERY 8 | | AM PDT | | | | | HOURS, First dose on Thu11/21/19 | | | | | | | [...] | | | (after last modification) on Tue | | | | | | [...] | | | | ONCE, 1 dose, Thu11/22/19 at 1800 | | PM PDT | [...] | | mL 500 mL, intravenous, ONCE, | | 20 7:35 | | | | | dose, 11/23/19 at 1945 | | PM PDT | | | | + +---------+ +--------+---+---+ +---+---+ | | | +---+---+ + +---------+ +--------+-------+---+ | lactated ringers (LR) bolus 500 | New Bag | 11/25/19 | 500 mL | 999 | | | mL 500 mL, intravenous, ONCE, | | 20 9:31 | | mL/hr | | | dose, Thu11/25/19 at 2200 | | PM PDT | | | | + +---------+ +--------+-------+---+ +---+---+ | | | +---+---+ + +---------+ +--------+---+---+ | lactated ringers (LR) bolus 500 | New Bag | 11/25/19 | 500 mL | | | | mL 500 mL, intravenous, ONCE, 1 | | 20 10:30 | | | | | dose, Thu11/25/19 at 2245 | | PM PDT | | | | + +---------+ +--------+---+---+ +---+---+ | | | +---+---+ + + + +---------+---+ + | lidocaine (LIDODERM) 5 % patch | Applied | 11/28/19 | 1 patch | | Midline | | 1 patch 1 patch, transdermal, | Patch | 20 10:52 | | | Back | | EVERY 24 HOURS, First dose on Thu | | PM PDT | | | [...] | | | | Starting 11/21/19 at 2003, | | PM PDT | | | [...] | | | | Until Thu11/23/19 at 2251, | | | | | [...] | | | | | NEEDED, Starting Thu11/24/19 at | | | | | | | 1032, Until Thu11/29/19 at 1720, | | | | | [...] +---+---+ + +-------+ +------+---+---+ | sodium zirconium ([facility]) 10 g | Given | 11/24/19 | [...] PDT | | | | | dose, 11/22/19 at 1045 | | | | [...] infusion 1 | | | dose, Starting 11/23/19 at | | | 7, Until Thu11/23/19 at 2052 | | + +---+ | | | + +---+ documented in this encounter
--- OUTSIDE RECORDS SUMMARY | ~2020-05-06 | XMS | Encounter Summary ---
Demographics + + + | Address | [address] | | | [place] [address] | + + + | Home Phone | | + + + | Preferred Language | Unknown | + + + | Marital Status | Single | + + + | Faith Affiliation | CHR | + + + [...] Team Providers + +------+ + | Care Oil Lease Broker Name | Role | Phone | + +------+ + | Lissette Martinez PA-C | PCP | | + +------+ + Encounter Details +--------+ + + + + | Date | Type | Department | Care Team | Description | +--------+ + + + + | 11/22/ | Procedure | Diagnostic Imaging | | | | 2019 | Pass | Services at [facility] | | | | | | [address] | | | | | | [place]ign[place] | | | | | | [address] | | | | | | [place], [place] | | | | | | [address] | | | | | | [phone] | | | +--------+ + + + [...] | 2020 | Visit | Oncology | [address] | | | | | | [address] | | | | | | [place] | | | | | | [address] | | | | | | [phone] | | | | | | | | +--------+---------+ + + + documented as of this encounter Visit Diagnoses Not on filedocumented in this encounter"
--- OUTSIDE RECORDS SUMMARY | ~2020-05-06 | XMS | Encounter Summary ---
Demographics + + + | Address | [address] | | | [place] [address] | + + + | Home Phone | | + + + | Preferred Language | Unknown | + + + | Marital Status | Single | + + + | Sikh Affiliation | CHR | + + + [...] Team Providers + +------+ + | Care Intake Nurse Name | Role | Phone | [...] | | | | | [place], | | | | | | [place] [address] | | | +--------+--------+ + + + [...] | 2019 | Visit | Oncology | [address] | | | | | | [address] | | | | | | [place] | | | | | | [address] | | | | | | [phone] | | | | | | | | +--------+---------+ + + + documented as of this encounter Visit Diagnoses Not on filedocumented in this encounter"
--- OUTSIDE RECORDS SUMMARY | ~2020-05-06 | XMS | Encounter Summary ---
Demographics + + + | Address | [address] | | | [place] [address] | + + + | Home Phone | | + + + | Preferred Language | Unknown | + + + | Marital Status | Single | + + + | Mandaeism Affiliation | CHR | + + + [...] Team Providers + +------+ + | Care Territory Outside Sales Manager Name | Role | Phone | + +------+ + | Lissette Martinez PA-C PCP | | + +------+ + Encounter Details +--------+--------+ + + + | Date | Type | Department | Care Team | Description | +--------+--------+ + + + | 08/22/ | Travel | | | | | 2019 | | | | | +--------+--------+ + [...] | 2020 | Visit | Oncology | [address] | | | | | [address] | | | | | | [place] | | | | | | [address] | | | | | | [phone] | | | | | | | | +--------+---------+ + + + documented as of this encounter Visit Diagnoses Not on filedocumented in this encounter"
--- OUTSIDE RECORDS SUMMARY | ~2020-05-06 | XMS | Encounter Summary ---
Demographics + + + | Address | [address] | | | [place] [address] | + + + | Home Phone [...] Team Providers + +------+ + | Care Body Painter Name | Role | Phone | + [...] | 2019 | Visit | Oncology | [address] | | | | | | [address] | | | | | | [place] | | | | | | [address] | | | | | | [phone] | | | | | | | | +--------+---------+ + + + documented as of this encounter Visit Diagnoses Not on filedocumented in this encounter"
--- OUTSIDE RECORDS SUMMARY | ~2020-05-06 | XMS | Encounter Summary ---
Demographics + + + | Address | [address] | | | [place] [address] | + + + | Home Phone | | + + + | Preferred Language | Unknown | + + + | Marital Status | Single | + + + | Anglican Affiliation | CHR | + + + [...] Providers + +------+ + | Care Sales Marketing Manager Name | Role | Phone | + +------+ + | Lissette Martienz PA-C | PCP | | + +------+ [...] | neoplasm of | RADHA Curran | [address] | | | | | unspecified | [place] | [address] | | | | | kidney, | Family | [place], | | | | | except renal | Medicine | [place] [address] | | | | | pelvis | [address] | Phone: | | | | | Procedures | [address] | [phone] | | | | | MD NEW | [place], | Fax: | | | | | PATIENT | [place] [address] | [phone] | | | | | LEVEL V MD | Phone: | | | | | | EST PATIENT | [phone] | | | | | | LEVEL V | Fax: | | | | | | | [phone] | | + +---------+ + + + + Encounter Details +--------+---------+ + + + | Date | Type | Department | Care Team | Description | +--------+---------+ + + + | 03/12/ | Office | [facility] | Lissette Jones, | Renal cell carcinoma | | 2020 | Visit | Clinics at S | [place] [address] | of left kidney | | | | [facility] [address] | (HCC) (Primary Dx) | | | | [facility] | [place], [place] | | | | | Health and Healing, | [address] | | | | | [address] | [phone] | | | | | [place], [place] | | | | | | [address] | | | | | | [phone] | | | +--------+---------+ + + + [...] encounter Progress Notes Lissette Jones MD - 03/12/2020 9:45 AM PDTFormatting of [...] speech. Appropriate mood/affect. Laboratory: LAB RESULTS: Clinical Composite Bond Worker on 03/12/2020 Component Date Value WHITE CELL [...] | 2019 | Visit | Oncology | [address] | | | | | [address] | | | | | | [place], [place] | | | | | | [address] | | | | | | [phone] | | | | | | | | +--------+---------+ + + + documented as of this encounter Visit Diagnoses + + | Diagnosis | + + | 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
--- OUTSIDE RECORDS SUMMARY | ~2020-05-06 | XMS | Encounter Summary ---
Demographics + + + | Address | [address] | | | [place] [address] | + + + | Home Phone | | + + + | Preferred Language | Unknown | + + + | Marital Status | | + + + | Adventist Affiliation | 1013 | + + + | Race | or Other | + + + | Ethnic Group | Not or | + + + Author + + + | Author | [facility] | | | and Shahram | + + + | Organization | [facility] | | | and Marcana [...] Team Providers + +------+ + | Care Rubber Tubing Backer Name | Role | Phone | + +------+ + | Lissette Martinez | PCP | | | RADHA | | | + +------+ + Encounter Details +--------+ + + + + | Date | Type | Department | Care Team | Description | +--------+ + + + + | 12/26/ | Documentati | [facility] | Miranda Wallis | | | 2020 | on | MED CNT ONCOLOGY | A, OT | | | | | THERAPY [address] | | | | | | [place], | | | | | | [place] [address] | | | | | | [phone] | | | +--------+ + + + [...] documented as of this encounter Progress Notes Miranda Wallis OT - 12/27/2019 11:33 AM [facility] [address] [place] [address] Oncology Rehab Screening Date: 12/27/2019 Patient Information Patient Name: Tila Altman Date of : 1965 Age: 54 y.o. Patient was seen for oncology rehab screening due to new patient consult. Patient currently being treated for metastatic kidney cancer and treatment regimen includes radiation. Intro duced self to patient and advised her of role and availability of oncology rehab navigator. Patient completed Physical Impairment and Functional Assessment Screen and indicates impair ments/deficits in the areas of LE edema, LE weakness, and decreased mobility. Patient ciera bernardo presents with pitting edema in BLEs. Patient reports at times the swelling will extend past her knees into her thighs, though it is improving some since being started on Lasix. Discussed with patient that optimal POC for LE edema would be compression wrapping, however patient at risk for system overload and is currently struggling with obtaining balanced lab values. Therefore, therapist instructed patient in less aggressive approach of diaphragmati c breathing, and lymph node stim and fluid movement with targeted MLM. Once patient complet es radiation and achieves more balanced systems, she could then be candidate for compression wrapping. Patient currently in w/c at time of visit. She reports she usually uses walker at home. Also reports difficulty with getting in/out of bed due to LE weakness. Discussed w ith patient referral to OP PT to work on strength, functional mobility and safety. Also the n could receive tx for LE edema when appropriate. Patient lives in [place]; could receive tx at [facility]. Patient is agreeable to this plan. Onc rehab navigator will request referral f rom radiation oncologist. Patient with no further questions at this time. She will complet e radiation this week. Patient would benefit from complete evaluation for OP physical therapy due to LE weakness, decreased functional mobility independence and safety, LE edema. Doctor will be contacted to obtain order. Electronically signed by: Miranda Wallis OT, 12/27/2019 11:35 AM Patient Name: Tila Altman/: 1965/ documented in this encounter Plan of Treatment Not on filedocumented as of this encounter Visit Diagnoses Not on filedocumented in this encounter"
--- OUTSIDE RECORDS SUMMARY | ~2020-05-06 | XMS | Encounter Summary ---
Demographics + + + | Address | [address] | | | [place] [address] | + + + | Home Phone [...] Team Providers + +------+ + | Care Retail Account Executive Name | Role | Phone [...] | | Clinics at S | [place] [address] | | | | | [facility] [address] | | | | | [facility] | [place], [place] | | | | | Health and Healing, | [address] | | | | | [place] [address] | [phone] | | | | | [place], [place] | | | | | | [address] | | | | | | [phone] | | | +--------+--------+ + + + [...] and Time Department Ordering/Authorizing 12/14/2019 12:54 PM [facility] at [facility] Lissette Jones MD Outpatient Medication Detail Disp Refills oxyCODONE (immediate release) 5 mg oral tablet 60 tablet 0 Sig: Take 1 tablet by mouth every four hours as needed for breakthrough pain. Sent to pharmacy as: oxyCODONE 5 mg tablet (ROXICODONE) Class: eRx Earliest Fill Date: 12/14/2019 Route: oral Order: [id number] E-Prescribing Status: Receipt confirmed by pharmacy (12/14/2019 [...] | 2019 | Visit | Oncology | [address] | | | | | | [address] | | | | | | [place] | | | | | | [address] | | | | | | [phone] | | | | | | | | +--------+---------+ + + + documented as of this encounter Visit Diagnoses Not on filedocumented in this encounter"
--- OUTSIDE RECORDS SUMMARY | ~2020-05-06 | XMS | Encounter Summary ---
Demographics + + + | Address | [address] | | | [place] [address] | + + + | Home Phone | | + + + | Preferred Language | Unknown | + + + | Marital Status | Single | + + + | Islam Affiliation | CHR | + + + [...] Providers + +------+ + | Care Oil Well Pumper Name | Role | Phone | + +------+ + | Lissette Martinez PA-C | PCP | | + +------+ + Encounter Details +--------+ + + + + | Date | Type | Department | Care Team | Description | +--------+ + + + + | 01/08/ | Procedure | Radiology/Imaging | | | | 2019 | Pass | Lab at [facility] [address] | | | | | | [facility] for | | | | | | Health and Healing, | | | | | | [address] | | | | | | [place], [place] | | | | | | [address] | | | | | | [phone] | | | +--------+ + + + [...] | 2020 | Visit | Oncology | [address] | | | | | | [address] | | | | | | [place] | | | | | | [address] | | | | | | [phone] | | | | | | | | +--------+---------+ + + + documented as of this encounter Visit Diagnoses Not on filedocumented in this encounter"
--- OUTSIDE RECORDS SUMMARY | ~2020-05-06 | XMS | Encounter Summary ---
Demographics + + + | Address | [address] | | | [place] [address] | + + + | Home Phone [...] Providers + +------+ + | Care Supervisor Carbon Paper Coating Name | Role | Phone | + [...] | 2020 | | Nate Correia | [address] | | | | | [address] | | | | | [place], [place] | [place], [place] | | | | | [address] | [address] | | | | | [phone] | [phone] | | | | | | | [...] in this enco unter Plan of Treatment +--------+---------+ + + + | Date | Type | Specialty | Care Team | Description | +--------+---------+ + + + | 06/26/ | Office | Hematology & | Lissette Jones, | | | 2020 | Visit | Oncology | [address] | | | | | [address] | | | | | | [place] | | | | | | [address] | | | | | | [phone] | | | | | | | | +--------+---------+ + + + documented as of this encounter Visit Diagnoses Not on filedocumented in this encounter"
--- OUTSIDE RECORDS SUMMARY | ~2020-05-06 | XMS | Encounter Summary ---
Demographics + + + | Address | [address] | | | [place] [address] | + + + | Home Phone [...] Team Providers + +------+ + | Care Bowling Ball Molder Name | Role | Phone | + +------+ + | Lissette Martinez PA-C | PCP | | + +------+ + Reason for Visit + +--------+ + | Reason | Onset | Comments | | | Date | | + +--------+ + | Lab Results | 12/12/ | | | | 2020 | | + +--------+ + Encounter Details +--------+ + + + + | Date | Type | Department | Care Team | Description | +--------+ + + + + | 12/12/ | Documentati | [facility] | Farrukh Hall MD | Lab Results | | 2020 | on | [facility] | [address] | | | | | [facility] | [place], | | | | | [address] | [place] [address] | | | | | [address] | [phone] | | | | | [facility] | | | | | | Physician's | | | | | | [facility] [place], | | | | | | [place] [address] | | | | | | [phone] | | | +--------+ + + + [...] | 2019 | Visit | Oncology | [address] | | | | | | [address] | | | | | | [place] | | | | | | [address] | | | | | | [phone] | | | | | | | | +--------+---------+ + + + documented as of this encounter Visit Diagnoses Not on filedocumented in this encounter"
--- OUTSIDE RECORDS SUMMARY | ~2020-05-06 | XMS | Encounter Summary ---
Demographics + + + | Address | [address] | | | [place] [address] | + + + | Home Phone | | + + + | Preferred Language | Unknown | + + + | Marital Status | Single | + + + | Yarsani Affiliation | CHR | + + + | Race | White | + + + | Ethnic Group | Not or | + + + Author + + + | Author | [facility] | + + + | Organization | [facility] | + + + | Address | Unknown | + + + | Phone | Unavailable | + + + Support + + +---------+ + | Name | Relationship | Address | Phone | + + +---------+ + | William Talavera | ECON | Unknown | | + + +---------+ + Care Team Providers + +------+ + | Care Internal Affairs Commander Name | Role | Phone | + +------+ + | Lissette Martinez PA-C | PCP | | + +------+ + Reason for Visit + +--------+ + | Reason | Onset | Comments | | | Date | | + +--------+ + | Refill Request | 01/30/ | | | | 2020 | | + +--------+ + | Refill Request | 02/02/ | | | | 2020 | | + +--------+ + Encounter Details +--------+--------+ + + + | Date | Type | Department | Care Team | Description | +--------+--------+ + + + | 01/30/ | Refill | [facility] | Lissette Jones, | Refill Request; | | 2019 | | Clinics at S | [place] [address] [address] | Refill Request | | | | [facility] [address] | | | | | [facility] for | [place], [place] | | | | | Health and Healing, | [address] | | | | | [address] | [phone] | | | | | [place], [place] | | | | | | [address] | | | | | | [phone] | | | +--------+--------+ + + + [...] this encounter Miscellaneous Notes Addendum Note - Ashlee Dow RN - 02/03/2020 2:15 PM PDT Addended by: ASHLEE DOW RN on: 02:15 PM Modules accepted: Orders elephone Encounter - Ashlee Murdock RN - 02/03/2020 2:07 PM PDTEncounter routed to Dr. Jones to resign eRx. [place] [facility] will follow up as needed. elephone Encounter - Sara Delgadillo - 02/03/2020 9:35 AM PDTPatient calling in, states that she will be running o ut of Oxycodone 5 Mg by tomorrow morning, but she just spoke with her pharmacy, [facility], and they do not have script yet. PAS sees "Print Prescription" for medication on 01/31, so reassured patient that medication in final stages and will get urgent message to team that patient needs to pickle water pump operator prescripti on today; patient very appreciative. Routing to [facility] elephone Encounter - Ariana Garcia MA - 02/01/2020 4:17 PM PDT Last appointment with Marilyn ROACH was on 01/09/20. Next appointment with Hipolito Jones MD is scheduled on 02/13/20. Last LIP progress note reviewed. Is there documentation to indicate that medication being r equested has been changed or discontinued? No Allergy list reviewed--Is the medication being requested on the patient's current allergy l ist? No Previous Prescription Details copied below: Date and Time Department Ordering/Authorizing 01/19/2020 9:52 AM [facility] Lissette Jones MD Outpatient Medication Detail Disp Refills oxyCODONE (immediate release) 5 mg oral tablet 60 tablet 0 Sig: Take 1 tablet by mouth every four hours as needed for breakthrough pain. Sent to pharmacy as: oxyCODONE 5 mg tablet (ROXICODONE) Class: eRx Earliest Fill Date: 01/19/2020 Route: oral Order: [id number] E-Prescribing Status: Receipt confirmed by pharmacy (01/19/2020 9:52 AM PDT) Per [facility] policy, routing encounter to [facility] for review and approval. elephone Encounter - Carlo Navas - 01/31/2020 2:58 PM PDTPatient left voice message at 10:23 am, asks to s peak to someone about CT orders and prescription renewal. PAS calls back to follow up. See 01/[address] scan questions. Medication Refill Request Ambulatory Oncology What is the name of the provider for this prescription refill request?: Medication prescrib ed by any other LIP Have you already contacted your pharmacy to refill?: Yes, but this pharm acy will not send a request for this category of medication [facility] Name of medication: Oxycodone Dose: 5 mg Frequency - How often are you taking it?: 4 tablets per day How much of the prescription do you have left - When will you run out?: 3 days' worth left Pharmacy the patient wants the prescription refilled at: [id number] - [place] - [address] [phone] Is it ok to leave a confidential voicemail?: Patient approves confidential and detailed mes sages left on answering machine and voicemail. Patient reminded of Clinic Refill Policy: 48-72 business hours to process refill requests. documented in this encoun ter Plan of Treatment +--------+---------+ + + + | Date | Type | Specialty | Care Team | Description | +--------+---------+ + + + | 06/26/ | Office | Hematology & | Lissette Jones, | | | 2019 | Visit | Oncology | [address] | | | | | [address] | | | | | | [place] | | | | | | [address] | | | | | | [phone] | | | | | | | | +--------+---------+ + + + documented as of this encounter Visit Diagnoses Not on filedocumented in this encounter
--- OUTSIDE RECORDS SUMMARY | ~2020-05-06 | XMS | Encounter Summary ---
Demographics + + + | Address | [address] | | | [place] [address] | + + + | Home Phone [...] Team Providers + +------+ + | Care Cma Or Lpn Name | Role | Phone | + +------+ + | Lissette Martinez PA-C | PCP | | + +------+ + Encounter Details +--------+------+ + + + | Date | Type | Department | Care Team | Description | +--------+------+ + + + | 09/12/ | Lab | Laboratory at [facility] | | Renal cell carcinoma | | 2020 | | [address] | | of left kidney | | | | [facility] | | ([facility]) | | | | and Healing, | | | | | | [address] | | | | | | [place], [place] | | | | | | [address] | | | | | | [phone] | | | +--------+------+ + + + [...] | 2020 | Visit | Oncology | [address] | | | | | [address] | | | | | | [place] | | | | | | [address] | | | | | | [phone] | | | | | | | [...] | | | | PST | kidney ([facility]) | results section. | + +--------+ + + + | CBC, WITH | Routin | 09/12/2019 | Renal cell | Results for this | | DIFFERENTIAL | e | 11:34 AM | carcinoma of left | procedure are in the | | | | PST | kidney ([facility]) | results section. | + +--------+ + + + | COMPLETE METABOLIC | Routin | 09/12/2019 | Renal cell | Results for this | | SET | e | 11:34 AM | carcinoma of left | procedure are in the | | (NA,K,CL,CO2,BUN,CRE | | PST | kidney ([facility]) | results section. | | AT,GLUC,CA,AST,ALT,B | | | | | | MARTIN TOTAL,ALK | | | | | | PHOS,ALB,PROT TOTAL) | | | | | + +--------+ + + + documented in this encounter Results ADRIANA SANTIAGO ONLY (09/12/2019 11:41 AM PST) + + [...] clinically indicated. | SERVICES, | | | [facility] | | | HEALTH + | | | HEALING | + + + + + + + + | Performing | Address | City/State/Zipcode | Phone Number | | Organization | | | | + + + + + | [facility] | [address] | [place] [address] | | | SERVICES, [facility] | | | | | HEALTH [...] | + + + + + | [employer] [facility] | [address] | [place] [address] | | | SERVICES, [facility] | | | | | HEALTH [...] | included in the neutrophil count. | [facility] | | | HEALTH + | | | HEALING | + + + + + + + + | Performing | Address | City/State/Zipcode | Phone Number | | Organization | | | | + + + + + | [facility] | [address] | [place] [address] | | | [facility] | | | | | [...] MDRD equation recommended by the National | [employer] | | Kidney Disease Education Program. Estimated [...] + | [facility] | [address] | [place] [address] | | | SERVICES, [facility] | | | | | HEALTH + HEALING | | | | + + + + + documented in this encounter Visit Diagnoses + + | Diagnosis | + + | 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) | + + documented in this encounter"
--- OUTSIDE RECORDS SUMMARY | ~2020-05-06 | XMS | Encounter Summary ---
Demographics + + + | Address | [address] | | | [place] [address] | + + + | Home Phone [...] Team Providers + +------+ + | Care Certified Hand Therapist Name | Role | Phone | + +------+ + PCP | Unavailable | + +------+ + Encounter Details +--------+ + + + + | Date | Type | Department | Care Team | Description | +--------+ + + + + | 05/05/ | Results | | Other, Faculty | | | 2001 | Only | | [phone] | | +--------+ + + + + [...] | 2019 | Visit | Oncology | [address] | | | | | | [address] | | | | | | [place] | | | | | | [address] | | | | | | [phone] | | | | | | | [...] | | | | | lymph node ([id number]):- | | | | | | 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
--- OUTSIDE RECORDS SUMMARY | ~2020-05-06 | XMS | Encounter Summary ---
Demographics + + + | Address | [address] | | | [place] [address] | + + + | Home Phone [...] Providers + +------+ + | Care Business Development Representative Name | Role | Phone | [...] at [address] | [place] [address] [facility] | | | | | [address] [place] | [facility] | | | | | [place], [facility] floor | [place], [place] | | | | | [place], [place] | [address] | | | | | | [phone] | | | | | [phone] | | | +--------+ + + + [...] last brain MRI was on 04/19/2020 at [facility] radiology and then had a phone [...] PM PDTAttempted to reach patient regarding incoming [employer] message sent to Dr. Beard today. Would like to discuss "seizure activity" further. Called patient, No answer, mailbox was full, not able to accept messages. Will reply back to [employer] message for patient to call [facility] and also route [employer] message to Dr. Solano signed by Hemanth Cardenas RN at 05/01/2020 2:58 PM PDT documented in this encounter Plan of Treatment +--------+---------+ + + + | Date | Type | Specialty | Care Team | Description | +--------+---------+ + + + | 06/26/ | Office | Hematology & | Lissette Jones, | | 2019 | Visit | Oncology | [address] | [address] | | | | | | [place] | | | | | | [address] | | | | | | [phone] | | | | | | | | +--------+---------+ + + + documented as of this encounter Visit Diagnoses Not on filedocumented in this encounter
--- OUTSIDE RECORDS SUMMARY | ~2020-05-06 | XMS | Encounter Summary ---
Demographics + + + | Address | [address] | | | [place] [address] | + + + | Home Phone | | + + + | Preferred Language | Unknown | + + + | Marital Status | | + + + | Restorationist Affiliation | 1013 | + + + | Race | or Other | + + + | Ethnic Group | Not or | + + + Author + + + | Author | [facility] | | | and Shahram | + + + | Organization | [facility] | | [...] Team Providers + +------+ + | Care Product Tester Name | Role | Phone | + [...] + | 11/20/ | Telephone | [facility] | Erlinda Baptiste RN | Other | | 2019 | | [facility] | | | | | | ONCOLOGY CLINIC [address] | | | | | | [address] | | | | | | [place] [address] | | | | | | [phone] | | | +--------+ + + + [...]
--- OUTSIDE RECORDS SUMMARY | ~2020-05-06 | XMS | Encounter Summary ---
Demographics + + + | Address | [address] | | | [place] [address] | + + + | Home Phone [...] Team Providers + +------+ + | Care Histology Technologist Name | Role | Phone | + +------+ + | Lissette Martinez PA-C | PCP | | + +------+ + Reason for Visit + + + | Reason | Comments | + + + | Immunotherapy | | + + + Chemotherapy (Routine) + +---------+ + + + + | Status | Reason | Specialty | Diagnoses / | Referred By | Referred To | | | | | Procedures | Contact | Contact | + +---------+ + + + + | Authorized | Other | Hematology & | Diagnoses | Karen, | Hem | | | | Oncology | Renal cell | Lissette, | Treatment | | | | | carcinoma of | [place] [address] | [address] | | | | | left kidney | [place] [address] | | | | | (HCC) | Ct | [facility] for | | | | | Procedures | [facility] and | | | | | [place] INJ | [place] | Healing, | | | | | N[address] | [address] | [address] | | | | | [place] | Phone: | [place], [place] | | | | | CHM,IV | [phone] | [address] | | | | | INFSN,1 HR | Fax: | Phone: | | | | | [place] CHM,IV | [phone] | [phone] | | | | | INFSN,ADDL | | Fax: | | | | | HR | | [phone] | | | | | nivolumab | [...] + + | 02/12/ | Hospital | [facility] | Onc, Gen [address] | | | 2020 | Encounter | Clinics at S | [address] [place], | | | | | [address] | [place] [address] | | | | | [facility] | | | | | | Health and Healing, | | | | | | [address] | | | | | | [place], [place] | | | | | | [address] | | | | | | [phone] | | | +--------+ + + + [...] + + + | Blood Pressure | 110/54 | 02/13/2020 10:00 AM | | | | | PDT | | + + + + + | Pulse | 95 | 02/13/2020 10:00 AM | | | | | PDT | | + + + + + | Temperature | 36.7 C (98.1 F) | 02/13/2020 10:00 AM | | | | | PDT | | + + + + + | Respiratory Rate | 14 | 02/13/2020 10:00 AM | | | | | PDT | | + + + + + | Oxygen Saturation | 100% | 02/13/2020 10:00 AM | | | | | PDT [...] documented as of this encounter Progress Notes Gabriela Melendez RN - 02/13/2020 10:30 AM PDTChemotherapy Nurse Note Allergies: Tila has No Known Allergies. Pre-Chemotherapy Pain Score: Patient reports a pain level of 3 today. Reason for Visit: Patient of Dr. Jones with a h/o Renal cell adenocarcinoma (HCC). Patient in infusion today f or Nivo Nursing Assessment: . Patient denies any further complaints or concerns at this time. Vascular Access: PIV placed by CULTURIST - IVT 22 gauge - positive blood return Per Orders: For Treatment Done in Clinic Today: see MAR Labs results reviewed and met protocol parameters. Order from Dr Jones in chart to proceed w [facility] treatment today. Pre-medications of Pepcid , Benadryl given as ordered. Chemotherapy order reviewed, drug calculated and setup [...] before and after completion of in fusion. Discharge: Line care provided, see Flowsheet for details. Patient d/c d ambulatory with Walker. Gabriela Melendez RN documented in this enc ounter Plan of Treatment +--------+---------+ + + + | Date | Type | Specialty | Care Team | Description | +--------+---------+ + + + | 06/26/ | Office | Hematology & | Lissette Jones, | | | 2019 | Visit | Oncology | [address] [address] | | | | [address] | | | | | [facility] | | | | | | [address] | | | | | | [phone] | | | | | | | [...] +-------+------+------+ | diphenhydrAMINE (BENADRYL) | Given | 02/13/20 | 25 mg | | | | injection 25 mg 25 mg, | | 20 11:15 | | | | | intravenous, ONCE, 1 dose, Mon | | AM PDT | | | | | 02/13/20 at 1030 | | | | | | + +--------+ +-------+------+------+ +---+---+ | | | +---+---+ + +---------+ +-------+-------+---+ | famotidine in NS (PEPCID) IV 20 | New Bag | 02/13/20 | 20 mg | 200 | | | mg 20 mg, intravenous, ONCE, 1 | | 20 11:19 | | mL/hr | | | dose, 02/13/20 at 1030 | | AM PDT | | | | + +---------+ +-------+-------+---+ +---+---+ | | | +---+---+ + +---------+ +--------+-------+---+ | nivolumab (OPDIVO) 480 mg in | New Bag | 02/13/20 | 480 mg | 128 | | | sodium chloride (NS) 0.9 % IV | | 20 12:10 | | mL/hr | | | 480 mg, intravenous, Administer | | PM PDT | | | | | over 60 Minutes, ONCE, 1 dose, | | | | | | | Thu02/13/20 at 1030, Administer | | | | | | | through a low protein binding | | | | | | | 0.22 micron in-line filter., | | | | | | + +---------+ +--------+-------+---+ +---+---+ | | | +---+---+ documented in this encounter"
--- OUTSIDE RECORDS SUMMARY | ~2020-05-06 | XMS | Encounter Summary ---
Demographics + + + | Address | [address] | | | [place] [address] | + + + | Home Phone | | + + + | Preferred Language | Unknown | + + + | Marital Status | Single | + + + | Advent Affiliation | CHR | + + + [...] Team Providers + +------+ + | Care Observer Gravity Prospecting Name | Role | Phone | + +------+ + | Lissette Martinez PA-C | PCP | | + +------+ + Encounter Details +--------+------+ + + + | Date | Type | Department | Care Team | Description | +--------+------+ + + + | 08/23/ | Lab | Laboratory at [facility] | | Kidney cancer, | | 2019 | | [address] | | primary, with | | | | [place] [facility] | | metastasis from | | | | and Healing, | | kidney to other | | | | [address] | | site, left (HCC) | | | | [facility] [place] | | | | | | [address] | | | | | | [phone] | | | +--------+------+ + + + [...] | 2019 | Visit | Oncology | [address] | | | | | [address] | | | | | | [place] | | | | | | [address] | | | | | | [phone] | | | | | | | | +--------+---------+ + + + documented as of this encounter Procedures + +--------+ + + + | Procedure Name | Priori | Date/Time | Associated Diagnosis | Comments | | | ty | | | | + +--------+ + + + | CBC AND AUTO DIFF | Routin | 08/23/2019 | Kidney cancer, | Results for this | | | e | 12:02 PM | primary, with | procedure are in the | | | | PST | metastasis from | results section. | | | | | kidney to other | | | | | | site, left (HCC) | | + +--------+ + + + | CBC, WITH | Routin | 08/23/2019 | Kidney cancer, | Results for this | | DIFFERENTIAL | e | 12:02 PM | primary, with | procedure are in the | | | | PST | metastasis from | results section. | | | | | kidney to other | | | | | | site, left (HCC) | | + +--------+ + + + | COMPLETE METABOLIC | Routin | 08/23/2019 | Kidney cancer, | Results for this | | SET | e | 12:02 PM | primary, with | procedure are in the | | (NA,K,CL,CO2,BUN,CRE | | PST | metastasis from | results section. | | AT,GLUC,CA,AST,ALT,B | | | kidney to other | | | MARTIN TOTAL,ALK | | | site, left ([facility]) | | | PHOS,ALB,PROT TOTAL) | | | | | + +--------+ + + + | UA, DIPSTICK ONLY | Routin | 08/23/2019 | Kidney cancer, | Results for this | | | e | 12:02 PM | primary, with | procedure are in the | | | | PST | metastasis from | results section. | | | | | kidney to other | | | | | | site, left ([facility]) | | + +--------+ + + + | FREE T4 | Routin | 08/23/2019 | Kidney cancer, | Results for this | | | e | 12:02 PM | primary, with | procedure are in the | | | | PST | metastasis from | results section. | | | | | kidney to other | | | | | | site, left (HCC) | | + +--------+ + + + | TSH | Routin | 08/23/2019 | Kidney cancer, | Results for this | | | e | 12:02 PM | primary, with | procedure are in the | | | | PST | metastasis from | results section. | | | | | kidney to other | | | | | | site, left (HCC) | | + +--------+ + + + documented in this encounter Results CBC AND AUTO DIFF (08/23/2019 12:02 PM PST) + + + + + + | Component | Value | Ref Range | Performed | Pathologist | | | | | At | Signature | + + + + + + | WHITE CELL | 4.01 | 3.50 - 10.80 | [facility] | | | COUNT | | K/cu mm | LABORATORY | | | | | | SERVICES, | | | | | | [facility] | | | | | | [facility] | | + + + + + + | RED CELL | 4.22 | 4.00 - 5.20 | [facility] | | | COUNT | | M/cu mm | LABORATORY | | | | | | SERVICES, | | | | | | [facility] + | | | | | | [facility] | | + + + + + + | HEMOGLOBIN | 11.9 (L) | 12.0 - 16.0 | [facility] | | | | | g/dL | LABORATORY | | | | | | SERVICES, | | | | | | [facility] + | | | | | | [facility]ALING | | + + + + + + | HEMATOCRIT | 37.9 | 36.0 - 46.0 % | [facility] [...] + + + + | MCHC | 31.4 (L) | 32.0 - 36.0 | [facility] | | | | | g/dL | LABORATORY | | | | | | SERVICES, | | | | | | [facility] + | | | | | | [facility]ALING | | + + + + + + | RDW SD | 51.2 (H) | 35.1 - 46.3 fL | [facility] | | | | | | LABORATORY | | | | | | SERVICES, | | | | | | [facility] + | | | | | | [facility]ALING | | + + + + + + | PLATELET | 157 | 150 - 400 K/cu | [facility] [...] + + + + | NEUTROPHIL | 77.6 (H) | 50.0 - 70.0 % | [facility] | | | % | | | LABORATORY | | | | | | SERVICES, | | | | | | [facility] + | | | | | | [facility]ALING | | + + + + + + | LYMPHOCYTE | 10.5 (L) | 18.0 - 42.0 % | [facility] | | | % | | | LABORATORY | | | | | | SERVICES, | | | | | | [facility] + | | | | | | [facility]ALING | | + + + + + + | MONOCYTE % | 8.0 | 3.5 - 9.0 % | [facility] | | | | | | LABORATORY | | | | | | SERVICES, | | | | | | [facility] | [facility] + | | | | | | [facility]ALING | | + + + + + + | EOS % | 2.7 | 1.0 - 3.0 % | [facility] | | | | | | LABORATORY | | | | | | SERVICES, | | | | | | [facility] | [facility] + | | | | | | HEALING | | + + + + + + | BASO % | 0.7 | 0.0 - 2.0 % | [facility] [...] + + + + | NEUTROPHIL | 3.11 | 1.80 - 7.70 | [facility] | | | # | | K/cu mm | LABORATORY | | | | | | SERVICES, | | | | | | [facility] | [facility] + | | | | | | [facility]ALING | | + + + + + + | NEUTROPHIL | 3.11Comment: Preliminary | 1.80 - 7.70 | [facility] [...] + + + + | LYMPHOCYTE | 0.42 (L) | 1.00 - 4.80 | [facility] | | | # | | K/cu mm | LABORATORY | | | | | | SERVICES, | | | | | | [facility] + | | | | | | [facility]ALING | | + + + + + + | MONOCYTE # | 0.32 | 0.10 - 0.90 | [facility] | | | | | K/cu mm | LABORATORY | | | | | | SERVICES, | | | | | | [facility] | [facility] + | | | | | | HEALING | | + + + + + + | EOS # | 0.11 | 0.00 - 0.50 | [facility] | [...] LABORATORY | [address] | [place] [address] | | | SERVICES, [facility] | | | | | [facility] + [facility] | | | | + + + + + UA, DIPSTICK ONLY (08/23/2019 12:02 PM PST) + + [...] LABORATORY | [address] | [place] [address] | | | [facility] | | | | | HEALTH [...] LABORATORY | | | | | | [facility], | | | | | | CORE | | + +-------+ + + + + + | Specimen | + + | Blood - Blood | | (substance) | + + + + + + + | Performing | Address | City/State/Zipcode | Phone Number | | Organization | | | | + + + + + | [facility] | [address] | [place] [address] | | | SERVICES, CORE | MELBA [...] | + + + + + | [facility] | [address] [facility] [address] [facility] | [place] [address] | | | SERVICES, CORE | MELBA [...] | | | LABORATORY | | | MAURITANIAN | | | SERVICES, | | | [...] | + + + + + | [facility] | [address] | [place] [address] | | | SERVICES, [facility] | | | | | [facility] + HEALING | | | | + + + + + documented in this encounter Visit Diagnoses + + | Diagnosis | + + | Kidney cancer, primary, 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
--- OUTSIDE RECORDS SUMMARY | ~2020-05-06 | XMS | Encounter Summary ---
Demographics + + + | Address | [address] | | | [place] [address] | + + + | Home Phone [...] Team Providers + +------+ + | Care Underwriting Specialist Name | Role | Phone | + +------+ + | Lissette Maritnez PA-C PCP | | + +------+ + [...] | 2019 | Visit | Oncology | [address] | | | | | | [address] | | | | | | [place] | | | | | | [address] | | | | | | [phone] | | | | | | | | +--------+---------+ + + + documented as of this encounter Visit Diagnoses Not on filedocumented in this encounter"
--- OUTSIDE RECORDS SUMMARY | ~2020-05-06 | XMS | Encounter Summary ---
Demographics + + + | Address | [address] | | | [place] [address] | + + + | Home Phone [...] Team Providers + +------+ + | Care Echocardiography Technologist Name | Role | Phone | + +------+ + | Lissette Martinez PA-C | PCP | | + +------+ + Reason for Visit + +--------+ + | Reason | Onset | Comments | | | Date | | + +--------+ + | Medication | 10/11/ | | | Adjustment | 2020 | | + +--------+ + Encounter Details +--------+ + + + + | Date | Type | Department | Care Team | Description | +--------+ + + + + | 10/11/ | Telephone | [facility] | Vuky, Lissette, | Medication | | 2020 | | Clinics at S | [place] [address] | Adjustment | | | | [address] | | | | | [facility] | [place], [place] | | | | | Health and Healing, | [address] | | | | | [address] | [phone] | | | | | [place], [place] | | | | | | [address] | | | | | | [phone] | | | +--------+ + + + [...] this encounter Miscellaneous Notes Addendum Note - Giovanna Tomas RN - 10/11/2019 2:17 PM PST Addended by: GIOVANNA TOMAS RN on: 02:17 PM Modules accepted: Orders elephone Encounter - Giovanna Oglesby RN - 10/11/2019 2:14 PM PSTRx sent to local pharmacy. Pt notified via [place]. elephone Encounter - Giovanna Tomas RN - 10/11/2019 1:10 PM PSTTSH 18.4 on 10/10/19. Called pt who confirms she is marshal mcintyre levothyroxine 137 mcg daily. Advised pt Dr. Jones would likely want to increase her dose an d we can notify her when new script sent via [place]. Pt would like script to be sent to [facility] [place]. Routed to Dr. Jones for review. documented in this encounter Plan of Treatment +--------+---------+ + + + | Date | Type | Specialty | Care Team | Description | +--------+---------+ + + + | 06/26/ | Office | Hematology & | Lissette Jones, | | 2019 | Visit | Oncology | [address] | | | | | [address] | | | | | | [place] | | | | | | [address] | | | | | | [phone] | | | | | | | | +--------+---------+ + + + documented as of this encounter Visit Diagnoses Not on filedocumented in this encounter"
--- OUTSIDE RECORDS SUMMARY | ~2020-05-06 | XMS | Encounter Summary ---
Demographics + + + | Address | [address] | | | [place] [address] | + + + | Home Phone [...] Team Providers + +------+ + | Care Straw Hat Machine Operator Name | Role | Phone | + +------+ + | Lissette Martinez PA-C | PCP | | + +------+ + Encounter Details +--------+ + + + + | Date | Type | Department | Care Team | Description | +--------+ + + + + | 03/26/ | Pharmacy | [facility] | | | | 2020 | Visit | [facility] | | | | | | [address] | | | | | | Mailcode: [place] | | | | | | and | | | | | | Healing, [address] | | | | | | [place], [place] | | | | | | [address] | | | | | | [phone] | | | +--------+ + + + [...] | 2020 | Visit | Oncology | [address] | | | | | | [address] | | | | | | [place] | | | | | | [address] | | | | | | [phone] | | | | | | | | +--------+---------+ + + + documented as of this encounter Visit Diagnoses Not on filedocumented in this encounter"
--- OUTSIDE RECORDS SUMMARY | ~2020-05-06 | XMS | Encounter Summary ---
Demographics + + + | Address | [address] | | | [place] [address] | + + + | Home Phone [...] Team Providers + +------+ + | Care Core Java Engineer Name | Role | Phone | + +------+ + | Lissette Martinez PA-C PCP | | + +------+ + Encounter Details +--------+--------+ + + + | Date | Type | Department | Care Team | Description | +--------+--------+ + + + | 08/24/ | Travel | | | | | [...] | 2020 | Visit | Oncology | [address] | | | | | [address] | | | | | | [place] | | | | | | [address] | | | | | | [phone] | | | | | | | | +--------+---------+ + + + documented as of this encounter Visit Diagnoses Not on filedocumented in this encounter"
--- OUTSIDE RECORDS SUMMARY | ~2020-05-06 | XMS | Encounter Summary ---
Demographics + + + | Address | [address] | | | [place] [address] | + + + | Home Phone | | + + + | Preferred Language | Unknown | + + + | Marital Status | | + + + | Church Affiliation | 1013 | + + + | Race | or Other | + + + | Ethnic Group | Not or | + + + Author + + + | Author | [facility] | | | and Shahram | + + + | Organization | [facility] | | | and [...] Team Providers + +------+ + | Care Tie Maker Name | Role | Phone | + +------+ + | Lissette Martinez | PCP | | | RADHA | | | + +------+ + Encounter Details +--------+ + + + + | Date | Type | Department | Care Team | Description | +--------+ + + + + | 12/12/ | Documentati | [facility] | Florin Roach, | | | 2020 | on | [facility] | [facility] | | | | | ONCOLOGY CLINIC [address] | | | | | | [address] | | | | | | [place] [address] | | | | | | [phone] | | | +--------+ + + + [...] documented as of this encounter Progress Notes Florin Roach MSW - 12/13/2019 1:56 PM Vanna Altman completed the PHQ-9 and WILSON-[address] simulation for radiation treatment. Her scores on the above named scales are mil d for depression and mild or anxiety severity. documented in this encounter Plan of Treatment Not on filedocumented as of this encounter Visit Diagnoses Not on filedocumented in this encounter"
--- OUTSIDE RECORDS SUMMARY | ~2020-05-06 | XMS | Encounter Summary ---
Demographics + + + | Address | [address] | | | [place] [address] | + + + | Home Phone | | + + + | Preferred Language | Unknown | + + + | Marital Status | Single | + + + | Gnosticist Affiliation | CHR | + + + [...] Providers + +------+ + | Care Director Hr Communications Name | Role | Phone | + [...] + + | 11/20/ | Hospital | [facility] | Onc, Gen [address] | | | 2020 | Encounter | Clinics at S | [facility], | | | | | [facility] [address] | [place] [address] | | | | | [facility] for | | | | | | Health and Healing, | | | | | | [address] | | | | | | [place], [place] | | | | | | [address] | | | | | | [phone] | | | +--------+ + + + [...] + + + | Blood Pressure | 72/50 | 11/21/2019 11:45 AM | | | | | PDT | | + + + + + | Pulse | 100 | 11/21/2019 11:23 AM | | | | | PDT | | + + + + + | Temperature | 36.5 C (97.7 F) | 11/21/2019 11:04 AM | | | | | PDT | | + + + + + | Respiratory Rate | - | - | | + + + + + | Oxygen Saturation | 100% | 11/21/2019 11:04 AM | | | | | PDT [...] as of this encounter Progress Notes Bebe Islas, MISAEL - 11/21/2019 9:48 AM PDTPt arrived hypotensive. Previous vitals at 0915 a t the clinic was 64/30 HR38. Patinet was sent to infusion floor with no communication about pervious BP.On arrival on infusion floor VS 77/47 HR 103.Pt stated she had some weakness but denies dizziness, and SOB. PIV that was placed in CT had been removed prior to arriving in the floor. DUMPER BULK SYSTEM called to place IV and assess pt. DUMPER BULK SYSTEM stated to activate AMS. AMERICAN INDIAN STUDIES PROFESSOR Straughter a t chair side. AMS arrived, and it was decided pt would be taken to the [facility] ED. MD Karen alvares paged at 1115 and did not call back until 1205 and MD stated she was aware of pt BP and c ondition prior to sending her to the infusion floor. traSudha espositoYINA - 11/21/2019 9:48 AM PDTPatient very h ypotensive, but essentially asymptomatic, received from CT, Chest/abdomen/pelvis with blood pressure of 64/30, HR documented at 38. In infusion she is 77/47, HR 103, temp 36.5, saturat ion of 100%, she does not have an IV access, and the rapid response team has been called and is at the chairside. Left A.C. IV achieved, normal saline bolus going now, EMS at bedside. In reviewing her CMP from today: Her creatinine is 3.7, BUN is 87, K+ 5.7, calcium 11.1, EG FR is 15. 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 Results of today's CT C/A/P pending. Patient has weakness, but denies dizziness, faintness, visual changes, headache, chest pain , SOB, palpitations, memory changes or changes in her edema. She is still urinating, has had one loose stool today, and denies changes in her oral intake/fluids/food. Report is given to KRISTIE Boggs, in emergency department. documented in this encounter Plan of Treatment +--------+---------+ + + + | Date | Type | Specialty | Care Team | Description | +--------+---------+ + + + | 06/26/ | Office | Hematology & | Lissette Jones, | | | 2019 | Visit | Oncology | [address] | | | | [address] | | | | | | [place] | | | | | | [address] | | | | | | [phone] | | | | | | | | +--------+---------+ + + + documented as of this encounter Procedures + +--------+ + + + | Procedure Name | Priori | Date/Time | Associated Diagnosis | Comments | | | ty | | | | + +--------+ + + + | BASIC METABOLIC SET | Routin | 11/21/2019 | Renal cell | Results for this | | (NA, K, CL, TCO2, | e | 11:17 AM | carcinoma of left | procedure are in the | | BUN, CR, GLU, CA) | | PDT | kidney (HCC) | results section. | + +--------+ + + + documented in this encounter Results BASIC METABOLIC SET (NA, K, CL, TCO2, BUN, CR, GLU, CA) (11/21/2019 11:17 AM PDT) + + + + + [...] + + + | BUN, PLASMA | 85 (H) | 6 - 20 mg/dL | [...] | | | LABORATORY | | | CAMBODIAN | | | SERVICES, | | | [...] + + + + | CALCIUM, | 8.9 [...] using the MDRD equation recommended by the [place] | [facility] | | Kidney Disease Education [...] | + + + + + | [facility] | [address] | [place] [address] | | | SERVICES, [place] [facility] | | | | | HEALTH + HEALING | | | | + + + + + documented in this encounter Visit Diagnoses + + | Diagnosis | + + | 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
--- OUTSIDE RECORDS SUMMARY | ~2020-05-06 | XMS | Encounter Summary ---
Demographics + + + | Address | [address] | | | [place] [address] | + + + | Home Phone [...] Providers + +------+ + | Care Supervisor Type Disk Quality Control Name | Role | Phone | + +------+ + | Lissette Martinez PA-C | PCP | | + +------+ + Encounter Details +--------+ + + + + | Date | Type | Department | Care Team | Description | +--------+ + + + + | 03/19/ | Pharmacy | Pharmacy @ [facility] | | | | 2020 | Visit | [address] | | | | | | Colin Frank Mailcode: | | | | | | [facility] | | | | | | and Healing, | | | | | | Building [address] | | | | | | [place], [place] | | | | | | [address] | | | +--------+ + + + [...] | 2019 | Visit | Oncology | [address] | | | | | | [address] | | | | | | [place] | | | | | | [address] | | | | | | [phone] | | | | | | | | +--------+---------+ + + + documented as of this encounter Visit Diagnoses Not on filedocumented in this encounter"
--- OUTSIDE RECORDS SUMMARY | ~2020-05-06 | XMS | Encounter Summary ---
Demographics + + + | Address | [address] | | | [place] [address] | + + + | Home Phone [...] Team Providers + +------+ + | Care Hotel Sales Manager Name | Role | Phone [...] [address] | | | | | [address] | [facility] | | | | | [place], [facility] floor | [place], [place] | | | | | [facility] [place] | [address] | | | | | [address] | [phone] | | | | | [phone] | | | +--------+ + + + [...] | 2019 | Visit | Oncology | [address] | | | | | | [address] | | | | | | [place] | | | | | | [address] | | | | | | [phone] | | | | | | | | +--------+---------+ + + + documented as of this encounter Visit Diagnoses Not on filedocumented in this encounter"
--- OUTSIDE RECORDS SUMMARY | ~2020-05-06 | XMS | Encounter Summary ---
Demographics + + + | Address | [address] | | | [place] [address] | + + + | Home Phone | | + + + | Preferred Language | Unknown | + + + | Marital Status | Single | + + + | Presybeterian Affiliation | CHR | + + + [...] Team Providers + +------+ + | Care Cotton Jammer Name | Role | Phone | + [...] | 2019 | Visit | Oncology | [address] | | | | | | [address] | | | | | | [place] | | | | | | [address] | | | | | | [phone] | | | | | | | | +--------+---------+ + + + documented as of this encounter Visit Diagnoses Not on filedocumented in this encounter"
--- OUTSIDE RECORDS SUMMARY | ~2020-05-06 | XMS | Encounter Summary ---
Demographics + + + | Address | [address] | | | [place] [address] | + + + | Home Phone | | + + + | Preferred Language | Unknown | + + + | Marital Status | | + + + | Mandaeism Affiliation | 1013 | + + + | Race | or Other | + + + | Ethnic Group | Not or | + + + Author + + + | Author | [facility] | | | and Shahram | + + + | Organization | [facility] | | | and Marcana [...] Team Providers + +------+ + | Care Geothermal Plant Manager Name | Role | Phone | [...] | | | [address] | [place] [address] | | | | | [place] [address] | | | | | | [phone] | | | +--------+ + + + [...] | CT CHEST ABDOMEN | Routin | 11/21/2019 | | Results for this | | PELVIS WO CONTRAST | e | 12:00 AM | | procedure are in the | | | | PDT | | results section. | + +--------+ + + + documented in this encounter Results CT Chest Abdomen Pelvis wo Contrast (11/21/2019 12:00 AM PDT) + + | Specimen [...]
--- OUTSIDE RECORDS SUMMARY | ~2020-05-06 | XMS | Encounter Summary ---
Demographics + + + | Address | [address] | | | [place] [address] | + + + | Home Phone [...] Team Providers + +------+ + | Care Climate Change Analyst Name | Role | Phone | [...] | | Kidney | Lissette, | [address] | | | | | cancer, | [place] [address] | | | | | primary, | [facility] | Center for | | | | | with | Ct | Health and | | | | | metastasis | [place], | Healing, | | | | | from kidney | [place] | Building 1, | | | | | to other | [address] | 3rd Floor | | | | | site, left | Phone: | [place], [place] | | | | | ([facility]) | [phone] | [address] | | | | | Procedures | Fax: | Phone: | | | | | CT CHEST, | [phone] | [phone] | | | | | ABDOMEN AND | | Fax: | | | | | PELVIS WO IV | | [phone] | | | | | CONTRAST | | | | | | | CT CHEST, | | | | | | | ABDOMEN AND | | | | | | | PELVIS W IV | | | | | | | CONTRAST FL | | | | | | | CAT SCAN OF | | | | | | | CHEST | | | | | | | CONTRAST FL | | | | | | | CT | | | | | | | ABDOMEN&PELV | | | | | | | IS | | | | | | | W/CONTRAST | | | | | | | FL CT | | | | | | | SCAN,THORAX, | | | | | | | W/O CONTRAST | | | | | | | FL CT ABD | | | | | | | & PELVIS W/O | | | | | | | CONTRAST | | | +--------+--------+ + + + + Encounter Details +--------+ + + + + | Date | Type | Department | Care Team | Description | +--------+ + + + + | 11/20/ | Ancillary | [facility] | Lissette Jones, | | | 2020 | Orders | Clinics at S | [place] [address] [address] | | | | | [address] | | | | | [facility] for | [place], [place] | | | | | Health and Healing, | [address] | | | | | [place] [address] | [phone] | | | | | [place], [place] | | | | | | [address] | | | | | | [phone] | | | +--------+ + + + [...] | 2019 | Visit | Oncology | [address] | | | | | | [address] | | | | | | [place] | | | | | | [address] | | | | | | [phone] | | | | | | | | +--------+---------+ + + + documented as of this encounter Results CT CHEST, [...]
--- OUTSIDE RECORDS SUMMARY | ~2020-05-06 | XMS | Encounter Summary ---
Demographics + + + | Address | [address] | | | [place] [address] | + + + | Home Phone [...] Providers + +------+ + | Care Stock Saw Operator Name | Role | Phone | [...] | | | carcinoma of | [place] [address] [address] | | | | | | left kidney | [facility] | | | | | | (HCC) | Ct | | | | | | Procedures | [place], | | | | | | CT CHEST, | [place] | | | | | | ABDOMEN AND | [address] | | | | | | PELVIS W IV | Phone: | | | | | | CONTRAST CT | [phone] | | | | | | CAT SCAN OF | Fax: | | | | | | CHEST | [phone] | | | | | | CONTRAST CT | | | | | | [...] | | Clinics at S | [place] [address] | | | | | [place] | | | | | [facility] for | [place], [place] | | | | | Health and Healing, | [address] | | | | | [facility] 2 | [phone] | | | | | [place], [place] | | | | | | [address] | | | | | | [phone] | | | +--------+ + + + [...] Notes Telephone Encounter - Anai Jimenez - 05/01/2020 2:01 PM PDTTeam Coordinator Documentatio n: Subject: Note TC: [facility] responded "The website is still not showing the finalized auth number. I called [employer] and was able to confirm full approval with complete authorization number. I have updated the shell, Pt is all set to proceed. Thank you." Post-poning encounter to fax CT order mid-May for patients f/u in June -->Note to RNC: HOMA elephone Encounter - Anai Toribio - 04/26/2020 3:31 PM PDTTeam Coordinator Documentation: Subject: Note TC: Sent message to [facility] to obtain authorization, will update when [facility] responds -->Note to RNC: HOMA elephone Encounter - W[place] on, Tess Moran MA - 04/25/2020 2:47 PM PDTFormatting of this note might be different from t he original. From [place] 04/23: MD [facility] Isaiah Ohara; P Hem Rewey Schedule Please schedule CT in 06/2020 [facility] [place], [place] Phone/virtual visit with me after that Lab ordered and faxed to [facility] in [place], [place] . CT ordered, ISAIAH barclay auth and fax (due 06/2020). [employer] message sent to pt. documented in this encounter Plan of Treatment +--------+---------+ + + + | Date | Type | Specialty | Care Team | Description | +--------+---------+ + + + | 06/26/ | Office | Hematology & | Lissette Jones, | | | 2020 | Visit | Oncology | [address] | | | | | [address] | | | | | | [place] | | | | | | [address] | | | | | | [phone] | | | | | | | [...]
--- OUTSIDE RECORDS SUMMARY | ~2020-05-06 | XMS | Encounter Summary ---
Demographics + + + | Address | [address] | | | [place] [address] | + + + | Home Phone [...] Team Providers + +------+ + | Care Photography Assistant Name | Role | Phone | [...] | | | | | [place], | | | | | | [place] [address] | | | +--------+--------+ + + + [...] | 2019 | Visit | Oncology | [address] | | | | | | [address] | | | | | | [place] | | | | | | [address] | | | | | | [phone] | | | | | | | | +--------+---------+ + + + documented as of this encounter Visit Diagnoses Not on filedocumented in this encounter"
--- OUTSIDE RECORDS SUMMARY | ~2020-05-06 | XMS | Encounter Summary ---
Demographics + + + | Address | [address] | | | [place] [address] | + + + | Home Phone [...] Providers + +------+ + | Care Sales Representative Printing Name | Role | Phone | + +------+ + | Lissette Martinez PA-C | PCP | | + +------+ + Reason for Visit + +--------+ + | Reason | Onset | Comments | | | Date | | + +--------+ + | Prescription | 11/01/ | | | | 2020 | | + +--------+ + Encounter Details +--------+ + + + + | Date | Type | Department | Care Team | Description | +--------+ + + + + | 11/01/ | Telephone | [facility] | Lissette Jones, | Prescription | | 2020 | | Clinics at S | [place] [address] | | | | | [place] | | | | | [facility] for | [place], [place] | | | | | Health and Healing, | [address] | | | | | [address] | [phone] | | | | | [place], [place] | | | | | | [address] | | | | | | [phone] | | | +--------+ + + + [...] Telephone Encounter - Giovanna Tomas RN - 11/01/2019 2:33 PM PSTCall to [facility] in [place]. Confirmed rx is for levothyroxine 175 mcg tab daily. elephone Encounter - Belem Ovalles RN - 11/01/2019 10: 07 AM PSTRouted to [facility] - renal cell CA patient. elephone Encounter - Santos Irene - 11/01/2019 9:40 AM PSTGen eral Message: What is your request today?: Herbert ([facility]) called with a question on the prescri ptions Dr. Jones sent yesterday. Sent over 2 Rx's for Thyroid medication (levothyroxine 175 m cg oral tablet) . One Rx states 1 tab 1x/day before breakfast, another states 3/4 of a pill before breakfast. Is it ok to leave a confidential voicemail?: Herbertapproves confidential and detailed messag es left on answering machine and voicemail. documented in this encounte r Plan of Treatment +--------+---------+ + + + | Date | Type | Specialty | Care Team | Description | +--------+---------+ + + + | 06/26/ | Office | Hematology & | Lissette Jones, | | 2019 | Visit | Oncology | [address] [address] | | | | [address] | | | | | | [place] | | | | | | [address] | | | | | | [phone] | | | | | | | | +--------+---------+ + + + documented as of this encounter Visit Diagnoses Not on filedocumented in this encounter"
--- OUTSIDE RECORDS SUMMARY | ~2020-05-06 | XMS | Encounter Summary ---
Demographics + + + | Address | [address] | | | [place] [address] | + + + | Home Phone [...] Team Providers + +------+ + | Care Transmission Worker Name | Role | Phone | + +------+ + | Lissette Martinez PA-C | PCP | | + +------+ + Encounter Details +--------+ + + + + | Date | Type | Department | Care Team | Description | +--------+ + + + + | 11/22/ | Chemist Internship | [facility] | Peggy Yoon, | Hypothyroidism, | | 2020 | | Diabetes [facility] | [address] | unspecified type | | | | [facility] | [address] | (Primary Dx); | | | | [address] | [place], [place] | Adrenal | | | | [address] | [address] | insufficiency ([facility]) | | | | [facility] | [phone] | | | | | Physician's | | | | | | Pavilion [place], | | | | | | [place] [address] | | | | | | [phone] | | | +--------+ + + + [...] this encounter Miscellaneous Notes Telephone Encounter - Peggy Yoon MD - 11/23/2019 2:06 PM PDT Thyroid lab orders for 1 week from now. Plan to restart levothyroxine at 100 mcg once T4 drops low. Labs also with AM cortisol and ACTH and patient should get labs before taking AM hydrocorti sone. Orders Placed This Encounter TSH FREE T4 CORTISOL, SERUM ACTH, PLASMA BASIC METABOLIC SET (NA, K, CL, TCO2, BUN, CR, GLU, CA) documented in this en counter Plan of Treatment +--------+---------+ + + + | Date | Type | Specialty | Care Team | Description | +--------+---------+ + + + | 06/26/ | Office | Hematology & | Lissette Jones, | | 2019 | Visit | Oncology | [address] | | | | [address] | | | | | | [place] | | | | | | [address] | | | | | | [phone] | | | | | | | | +--------+---------+ + + + + +------+--------+ + + | Name | Type | Priori | Associated Diagnoses | Order Schedule | | | | ty | | | + +------+--------+ + + | TSH | Lab | Routin | Hypothyroidism, | Expected: 11/30/2019 | | | | e | unspecified type | (Approximate), | | | | | | Expires: 12/23/2020 | + +------+--------+ + + | FREE T4 | Lab | Routin | Hypothyroidism, | Expected: 11/30/2019 | | | | e | unspecified type | (Approximate), | | | | | | Expires: 12/23/2020 | + +------+--------+ + + | CORTISOL, SERUM | Lab | Routin | Adrenal | Expected: 11/30/2019 | | | | e | insufficiency (HCC) | (Approximate), | | | | | | Expires: 12/23/2020 | + +------+--------+ + + | ACTH, PLASMA | Lab | Routin | Adrenal | Expected: 11/30/2019 | | | | e | insufficiency (HCC) | (Approximate), | | | | | | Expires: 12/23/2020 | + +------+--------+ + + | BASIC METABOLIC SET | Lab | Routin | Adrenal | Expected: 11/30/2019 | | (NA, K, CL, TCO2, | | e | insufficiency (HCC) | (Approximate), | | BUN, CR, GLU, CA) | | | | Expires: 12/23/2020 | + +------+--------+ + + documented as of this encounter Visit Diagnoses + + | Diagnosis | + + | Hypothyroidism, unspecified type - Primary | + + | Adrenal insufficiency (HCC) Glucocorticoid deficiency | + + documented in this encounter"
--- OUTSIDE RECORDS SUMMARY | ~2020-05-06 | XMS | Encounter Summary ---
Demographics + + + | Address | [address] | | | [place] [address] | + + + | Home Phone [...] Providers + +------+ + | Care Electrical Repairer Name | Role | Phone | + [...] | | | | | cancer, | [address] | [address] | | | | | primary, | [facility] | [facility] | | | | | with | Ct | Hospital, | | | | | metastasis | [facility], | 10th Floor | | | | | from kidney | [place] | [place], [place] | | | | | to other | [address] | [address] | | | | | site, left | Phone: | Phone: | | | | | (HCC) | [phone] | [phone] | | | | | Procedures | Fax: | Fax: | | | | | CT CHEST, | [phone] | [phone] | | | | | ABDOMEN AND | | | | | | | PELVIS WO IV | | | | | | | CONTRAST | | | | | | | CT CHEST, | | | | | | | ABDOMEN AND | | | | | | | PELVIS W IV | | | | | | | CONTRAST DC | | | | | | | CAT SCAN OF | | | | | | | CHEST | | | | | | | CONTRAST DC | | | | | | | CT | | | | | | | ABDOMEN&PELV | | | | | | | IS | | | | | | | W/CONTRAST | | | | | | | DC CT | | | | | | | SCAN,THORAX, | | | | | | | W/O CONTRAST | | | | | | | DC CT ABD | | | | | | | & PELVIS W/O | | | | | | | CONTRAST | | | +--------+--------+ + + + + Encounter Details +--------+ + + + + | Date | Type | Department | Care Team | Description | +--------+ + + + + | 08/23/ | Ancillary | [facility] | Lissette Jones, | | | 2019 | Orders | Clinics at S | [place] [address] | | | | | [address] | | | | | [facility] for | [place], [place] | | | | | Health and Healing, | [address] | | | | | [facility] 2 | [phone] | | | | | [place], [place] | | | | | | [address] | | | | | | [phone] | | | +--------+ + + + [...] | 2019 | Visit | Oncology | [address] | | | | | | [address] | | | | | | [place], [place] | | | | | | [address] | | | | | | [phone] | | | | | | | [...]
--- OUTSIDE RECORDS SUMMARY | ~2020-05-06 | XMS | Encounter Summary ---
Demographics + + + | Address | [address] | | | [place] [address] | + + + | Home Phone [...] Team Providers + +------+ + | Care Telephone Exchange Operator Name | Role | Phone | [...] cell | Kwabena Nettles MD | [address] | | | | | carcinoma, | [address] | | | | | unspecified | [address] | Center for | | | | | laterality | [address] | Health and | | | | | (HCC) | [place], [place] | Healing, | | | | | staging | [address] | [address], | | | | | kidney | Phone: | 3rd Floor | | | | | cancer | [phone] | [facility] [place] | | | | | Procedures | Fax: | [address] | | | | | MRI BRAIN | [phone] | Phone: | | | | | WWO CONTRAST | | [phone] | | | | | [place] MRI | | Fax: | | | | | BRAIN COMBO | | [phone] | +--------+--------+ + + + + Reason [...] cell | Kwabena Nettles MD | [address] | | | | | carcinoma, | [address] | | | | | unspecified | [address] | Center for | | | | | laterality | [address] | Health and | | | | | (HCC) | [place], [place] | Healing, | | | | | staging | [address] | [address], | | | | | kidney | Phone: | 3rd Floor | | | | | cancer | [phone] | [place], [place] | | | | | Procedures | Fax: | [address] | | | | | MRI BRAIN | [phone] | Phone: | | | | | WWO CONTRAST | | [phone] | | | | | [place] MRI | | Fax: | | | | | BRAIN COMBO | | [phone] | +--------+--------+ + + + + Encounter Details +--------+ + + + + | Date | Type | Department | Care Team | Description | +--------+ + + + + | 02/26/ | Hospital | Diagnostic Imaging | Kwabena Sanchez, | | | 2019 | Encounter | Services at [facility] | [address] | | | | | [address] | [facility] [address] | | | | | [address] | [place], [place] | | | | | [facility] | [address] | | | | | [place], [place] | [phone] | | | | | [address] | | | | | | [phone] | | | +--------+ + + + [...] | 2019 | Visit | Oncology | [address] | | | | | | [address] | | | | | | [facility] [place] | | | | | | [address] | | | | | | [phone] | | | | | | | [...]
--- OUTSIDE RECORDS SUMMARY | ~2020-05-06 | XMS | Encounter Summary ---
Demographics + + + | Address | [address] | | | [place] [address] | + + + | Home Phone [...] + + | Author | [facility] | + + + | Organization | [facility] | + + + | Address | Unknown | + + + | Phone | Unavailable | + + + Support + + +---------+ + | Name | Relationship | Address | Phone | + + +---------+ + | William Talavera | ECON | Unknown | | + + +---------+ + Care Team Providers + +------+ + | Care Kit Planner Name | Role | Phone | + [...] | | | | | carcinoma, | [address] | [address] | | | | | unspecified | Angelito Rosa | [facility] | | | | | laterality | [address] | [address] [place], | | | | | ([facility]) | [place] | [place] | | | | | Procedures | [address] | [address] | | | | | SIMULATION | Phone: | Phone: | | | | | IMAGING | [phone] | [phone] | | | | | SBRT | Fax: | Fax: | | | | | | [phone] | [phone] | +--------+--------+ + + + + Encounter Details +--------+ + + + + | Date | Type | Department | Care Team | Description | +--------+ + + + + | 02/23/ | Transcribe | Radiation Oncology | Antwon Beard, | | | 2020 | Orders | at [address] | [address] [facility] | | | | | Lisa [place] | [facility] | | | | | Ish[place], [address] [place] [address] | [place], [place] | | | | | [place], [place] | [address] | | | | | [address] | [phone] | | | | | [phone] | | | +--------+ + + + [...] | 2019 | Visit | Oncology | [address] | | | | | [address] | | | | | | [facility] [place] | | | | | | [address] | | | | | | [phone] | | | | | | | | +--------+---------+ + + + documented as of this encounter Results SIMULATION IMAGING [...]
--- OUTSIDE RECORDS SUMMARY | ~2020-05-06 | XMS | Encounter Summary ---
Demographics + + + | Address | [address] | | | [place] [address] | + + + | Home Phone [...] Team Providers + +------+ + | Care Government Relations Analyst Name | Role | Phone | + +------+ + | Lissette Martinez PA-C | PCP | | + +------+ + Encounter Details +--------+ + + + + | Date | Type | Department | Care Team | Description | +--------+ + + + + | 12/26/ | Pharmacy | Pharmacy @ | | | | 2019 | Visit | [facility] | | | | | | [place] [address] | | | | | | Main [facility] [address] | | | | | | [place] [address] | | | +--------+ + + + [...] | 2019 | Visit | Oncology | [address] | | | | | | [address] | | | | | | [place] | | | | | | [address] | | | | | | [phone] | | | | | | | | +--------+---------+ + + + documented as of this encounter Visit Diagnoses Not on filedocumented in this encounter"
--- OUTSIDE RECORDS SUMMARY | ~2020-05-06 | XMS | Encounter Summary ---
Demographics + + + | Address | [address] | | | [place] [address] | + + + | Home Phone [...] Team Providers + +------+ + | Care Ordnance Truck Installation Supervisor Name | Role | Phone | [...] | | | | | metastases | [address] | [address] | | | | | ([facility]) | Angelito Rosa | [address]yer | | | | | Procedures | [address] | [address] [place], | | | | | SIMULATION | [place] | [place] | | | | | IMAGING | [address] | [address] | | | | | | Phone: | Phone: | | | | | | [phone] | [phone] | | | | | | Fax: | Fax: | | | | | | [phone] | [phone] | +--------+--------+ + + + + Encounter Details +--------+ + + + + | Date | Type | Department | Care Team | Description | +--------+ + + + + | 03/06/ | Transcribe | Radiation Oncology | Antwon Beard, | | | 2020 | Orders | at [address] | [address] [facility] | | | | | [address] [place] | [facility] | | | | | [place], [facility] floor | [place], [place] | | | | | [place], [place] | [address] | | | | | [address] | [phone] | | | | | [phone] | | | +--------+ + + + [...] | 2019 | Visit | Oncology | [address] | | | | | | [address] | | | | | | [place] | | | | | | [address] | | | | | | [phone] | | | | | | | | +--------+---------+ + + + documented as of this encounter Results SIMULATION IMAGING (03/06/2020 12:07 [...]
--- OUTSIDE RECORDS SUMMARY | ~2020-05-06 | XMS | Encounter Summary ---
Demographics + + + | Address | [address] | | | [place] [address] | + + + | Home Phone [...] Team Providers + +------+ + | Care Pole Tester Name | Role | Phone | + +------+ + | Lissette Martinez PA-C | PCP | | + +------+ + Encounter Details +--------+ + + + + | Date | Type | Department | Care Team | Description | +--------+ + + + + | 10/07/ | Pediatrics Teacher | [facility] | Lissette Jones, | | | 2019 | | Clinics at S | [place] [address] | | | | | [address] | | | | | [facility] | [place], [place] | | | | | Health and Healing, | [address] | | | | | [address] | [phone] | | | | | [place], [place] | | | | | | [address] | | | | | | [phone] | | | +--------+ + + + [...] | 2019 | Visit | Oncology | [address] | | | | | [address] | | | | | | [facility] [place] | | | | | | [address] | | | | | | [phone] | | | | | | | | +--------+---------+ + + + documented as of this encounter Visit Diagnoses Not on filedocumented in this encounter"
--- OUTSIDE RECORDS SUMMARY | ~2020-05-06 | XMS | Encounter Summary ---
Demographics + + + | Address | [address] | | | [place] [address] | + + + | Home Phone [...] Team Providers + +------+ + | Care Therapeutic Activities Services Worker Name | Role | Phone | [...] | | | Kidney | Lissette, | [facility] [address] | | | | | cancer, | [place] [address] [address] | Pavilion | | | | | primary, | [address] | [address] | | | | | with | Ct | Frederick Navas, | | | | | metastasis | [place], | Basement | | | | | from kidney | [place] | [place], [place] | | | | | to other | [address] | [address] | | | | | site, left | Phone: | Phone: | | | | | (HCC) | [phone] | [phone] | | | | | Procedures | Fax: | Fax: | | | | | NM BONE &/OR | [phone] | [phone] | | | | | JOINT | | | | | | | IMAGING | | | | | | | WHOLE BODY | | | | | | | PA BONE | | | | | | [...] | | Kidney | Lissette, | [address] | | | | | cancer, | [place] [address] | Pavilion | | | | | primary, | [address] | [address] | | | | | with | Ct | [place], | | | | | metastasis | [place], | Basement | | | | | from kidney | [place] | [place], [place] | | | | | to other | [address] | [address] | | | | | site, left | Phone: | Phone: | | | | | (HCC) | [phone] | [phone] | | | | | Procedures | Fax: | Fax: | | | | | NM BONE &/OR | [phone] | [phone] | | | | | JOINT | | | | | | | IMAGING | | | | | | | WHOLE BODY | | | | | | | PA BONE | | | | | | [...] | 2019 | Encounter | at [facility] [address] | [place] [address] | | | | | [address] | [address] | | | | | [place] Navas, | [place] | | | | | Basement [place], | [address] | | | | | [place] [address] | [phone] | | | | | [phone] | | | +--------+ + + + [...] | 2019 | Visit | Oncology | [address] | | | | | | [address] | | | | | | [facility] [place] | | | | | | [address] | | | | | | [phone] | | | | | | | [...] | | | | | site, left ([facility]) | | + +--------+ + + + [...]
--- OUTSIDE RECORDS SUMMARY | ~2020-05-06 | XMS | Encounter Summary ---
Demographics + + + | Address | [address] | | | [place] [address] | + + + | Home Phone [...] Team Providers + +------+ + | Care Christmas Tree Farm Manager Name | Role | Phone | [...] | neoplasm of | RADHA Curran | [address] | | | | | unspecified | [place] | [address] | | | | | kidney, | Family | [place], | | | | | except renal | Medicine | [place] [address] | | | | | pelvis | [address] | Phone: | | | | | Procedures | [address] | [phone] | | | | | [place] NEW | [place], | Fax: | | | | | PATIENT | [place] [address] | [phone] | | | | | LEVEL [place] | Phone: | | | | | | EST PATIENT | [phone] | | | | | | LEVEL V | Fax: | | | | | | | [phone] | | + +---------+ + + + + Encounter Details +--------+---------+ + + + | Date | Type | Department | Care Team | Description | +--------+---------+ + + + | 08/23/ | Office | [facility] | Lissette Jones, | Renal cell carcinoma | | 2019 | Visit | Clinics at S | [place] [address] | of left kidney | | | | [place] [address] | (HCC) (Primary Dx) | | | | [facility] for | [place], [place] | | | | | Health and Healing, | [address] | | | | | Building [address] | [phone] | | | | | [place], [place] | | | | | | [address] | | | | | | [phone] | | | +--------+---------+ + + + [...] | 2019 | Visit | Oncology | [address] | | | | | | [address] | | | | | | [place] | | | | | | [address] | | | | | | [phone] | | | | | | | | +--------+---------+ + + + documented as of this encounter Visit Diagnoses + + | Diagnosis | + + | 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
--- OUTSIDE RECORDS SUMMARY | ~2020-05-06 | XMS | Encounter Summary ---
Demographics + + + | Address | [address] | | | [place] [address] | + + + | Home Phone [...] Author | [facility] | | | and Shahram | + + + | Organization | [facility] | [...] Team Providers + +------+ + | Care Mat Machine Tender Name | Role | Phone | + +------+ + PCP | Unavailable | + +------+ + Encounter Details +--------+ + + + + | Date | Type | Department | Care Team | Description | +--------+ + + + + | 06/02/ | Hospital | [facility] | | | | 2002 - | Encounter | MED CTR CANCER | | | | | | CENTER [address] | | | | 09/02/ | | [place] | | | | 2002 | | [address] | | | | | | [phone] | | | +--------+ + + + [...]
--- OUTSIDE RECORDS SUMMARY | ~2020-05-06 | XMS | Encounter Summary ---
Demographics + + + | Address | [address] | | | [place] [address] | + + + | Home Phone [...] Team Providers + +------+ + | Care Boiler House Operator Name | Role | Phone | [...] Pharmacy | | | | | | [address] | | | | | | [place], [place] | | | | | | [address] | | | | | | [phone] | | | +--------+ + + + [...] | 2019 | Visit | Oncology | [address] | | | | | | [address] | | | | | | [place] | | | | | | [address] | | | | | | [phone] | | | | | | | | +--------+---------+ + + + documented as of this encounter Visit Diagnoses Not on filedocumented in this encounter"
--- OUTSIDE RECORDS SUMMARY | ~2020-05-06 | XMS | Encounter Summary ---
Demographics + + + | Address | [address] | | | [place] [address] | + + + | Home Phone | | + + + | Preferred Language | Unknown | + + + | Marital Status | Single | + + + | Church Affiliation | CHR | + + + [...] + +------+ + | Care Director Of Physical Security Name | Role | Phone | + [...] | | | | [place]ce[place] | [place] [address] | [address] | | | | | a of | [address] | | | | | malignancy | Ct | Center for | | | | | Renal cell | [facility], | [facility] and | | | | | adenocarcino | [place] | Healing, | | | | | ma (HCC) | [address] | [address] | | | | | Procedures | Phone: | [place], [place] | | | | | [place] | [phone] | [address] | | | | | PAMIDRONATE | Fax: | Phone: | | | | | DISODIUM, | [phone] | [phone] | | | | | PER 30 MG | | Fax: | | | | | [place] | | [phone] | | | | | THR/PRPH/DX | [...] + + | 10/31/ | Hospital | [facility] | Onc, Gen [address] | | | 2020 | Encounter | Clinics at S | [address] [place], | | | | | [facility] [address] | [place] [address] | | | | | [facility] | | | | | | Health and Healing, | | | | | | Building 2 | | | | | | [place], [place] | | | | | | [address] | | | | | | [phone] | | | +--------+ + + + [...] Jones. Plan for troponin and repe at [facility]. As per Md do not need to have pt wait for results. Will stay with family in [facility] and 9:30 am clinic appointment tomorrow. Will also increase her synthroid (md to se nd to pharm). Reviewed plan with Ms. Barragan and her family who verbalized understanding. PIV d/c'd and intact. 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 Refer to MAR and [...] 2019 | Visit | Oncology | [place] [address] | | | | | | [address] | | | | | | [place] | | | | | | [address] | | | | | | [phone] | | | | | | | [...] [facility] | [address] | [place] [address] | | | SERVICES, CORE | MELBA [...] | | | LABORATORY | | | KAZAKH | | | SERVICES, | | | [...] | + + + + + | [facility] | [address] | [place] [address] | | | DWIGHT MARTINEZ | MELBA [...] (NS) 0.9 % IV | | 20 4:05 | | mL/hr [...]
--- OUTSIDE RECORDS SUMMARY | ~2020-05-06 | XMS | Encounter Summary ---
Demographics + + + | Address | [address] | | | [place] [address] | + + + | Home Phone [...] Team Providers + +------+ + | Care Crematorium Operator Name | Role | Phone | + +------+ + | Lissette Martinez PA-C | PCP | | + +------+ + Reason for Visit + +--------+ + | Reason | Onset | Comments | | | Date | | + +--------+ + | Scheduling | 08/30/ | | | | 2019 | | + +--------+ + Encounter Details +--------+ + + + + | Date | Type | Department | Care Team | Description | +--------+ + + + + | 08/30/ | Telephone | [facility] | Lissette Jones, | Scheduling | | 2019 | | Clinics at S | [place] [address] [address] | | | | | [address] | [address] | | | | | [facility] | [place], [place] | | | | | Health and Healing, | [address] | | | | | Building [address] | [phone] | | | | | [place], [place] | | | | | | [address] | | | | | | [phone] | | | +--------+ + + + [...] this encounter Miscellaneous Notes Telephone Encounter - Carlo Navas - 08/30/2019 1:48 PM PSTAaron in [facility] calls, schedules the patient to see Dr. Jones for a followup after hospital visit on 09/13/2019 at 9:1 5 am. Routing to RNC and MD docum ented in this encounter Plan of Treatment +--------+---------+ + + + | Date | Type | Specialty | Care Team | Description | +--------+---------+ + + + | 06/26/ | Office | Hematology & | Lissette Jones, | | | 2019 | Visit | Oncology | [address] | | | | | | [address] | | | | | | [place] | | | | | | [address] | | | | | | [phone] | | | | | | | | +--------+---------+ + + + documented as of this encounter Visit Diagnoses Not on filedocumented in this encounter"
--- OUTSIDE RECORDS SUMMARY | ~2020-05-06 | XMS | Encounter Summary ---
Demographics + + + | Address | [address] | | | [place] [address] | + + + | Home Phone [...] Team Providers + +------+ + | Care Sale Professional Digital Marketing Name | Role | Phone | + [...] | neoplasm of | RADHA Curran | [address] | | | | | unspecified | [place] | [address] | | | | | kidney, | Family | [place], | | | | | except renal | Medicine | [place] [address] | | | | | pelvis | [address] | Phone: | | | | | Procedures | [address] | [phone] | | | | | [place] NEW | [place], | Fax: | | | | | PATIENT | [place] [address] | [phone] | | | | | LEVEL V [place] | Phone: | | | | | | EST PATIENT | [phone] | | | | | | LEVEL V | Fax: | | | | | | | [phone] | | + +---------+ + + + + Encounter Details +--------+---------+ + + + | Date | Type | Department | Care Team | Description | +--------+---------+ + + + | 10/10/ | Office | [facility] | Lissette Jones, | 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 Appropriate mood/affect. Laboratory: LAB RESULTS: Clinical Speech And Language Specialist on 10/10/2019 Component Date Value WHITE CELL [...] CREATININE PLASMA (LAB) 10/10/2019 1.37* EGFR - SLOVENIAN 10/10/2019 48* EGFR NON -SLOVENIAN 10/10/2019 40* SODIUM, PLASMA (LAB) 10/10/2019 132* [...] | 2019 | Visit | Oncology | [address] | | | | | | [address] | | | | | | [place] | | | | | | [address] | | | | | | [phone] | | | | | | | [...]
--- OUTSIDE RECORDS SUMMARY | ~2020-05-06 | XMS | Encounter Summary ---
Demographics + + + | Address | [address] | | | [place] [address] | + + + | Home Phone | | + + + | Preferred Language | Unknown | + + + | Marital Status | | + + + | Worship Affiliation | 1013 | + + + | Race | or Other | + + + | Ethnic Group | Not or | + + + Author + + + | Author | [facility] | | | and Shahram | + + + | Organization | [facility] | [...] Team Providers + +------+ + | Care Elephant Tamer Name | Role | Phone | + +------+ + PCP | Unavailable | + +------+ + Encounter Details +--------+ + + + + | Date | Type | Department | Care Team | Description | +--------+ + + + + | 10/31/ | Hospital | [facility] | | | | 2004 - | Encounter | MED CTR GENERIC OP | | | | | | CONV DEPT [address] | | | | 01/29/ | | [place] [place], | | | | 2004 | | [place] [address] | | | | | | [phone] | | | +--------+ + + + [...]
--- OUTSIDE RECORDS SUMMARY | ~2020-05-06 | XMS | Encounter Summary ---
Demographics + + + | Address | [address] | | | [place] [address] | + + + | Home Phone | | + + + | Preferred Language | Unknown | + + + | Marital Status | Single | + + + | Yazidism Affiliation | CHR | + + + [...] Team Providers + +------+ + | Care Peoplesoft Hcm Consultant Name | Role | Phone | [...] | | [address] | [facility] | | | | | [facility] | Rd [place], [place] | | | | | Health and Healing, | [address] | | | | | [address] | | | | | | [facility] [place] | | | | | | [address] | | | | | | [phone] | | | +--------+ + + + [...] | 2019 | Visit | Oncology | [address] | | | | | | [address] | | | | | | [place] | | | | | | [address] | | | | | | [phone] | | | | | | | | +--------+---------+ + + + documented as of this encounter Visit Diagnoses Not on filedocumented in this encounter"
--- OUTSIDE RECORDS SUMMARY | ~2020-05-06 | XMS | Encounter Summary ---
Demographics + + + | Address | [address] | | | [place] [address] | + + + | Home Phone [...] Team Providers + +------+ + | Care Air Hole Driller Name | Role | Phone | + +------+ + | Lissette Martinez PA-C | PCP | | + +------+ + Encounter Details +--------+ + + + + | Date | Type | Department | Care Team | Description | +--------+ + + + + | 08/22/ | Pharmacy | Pharmacy @ [facility] | | | | 2019 | Visit | [address] | | | | | | [address] Mailcode: | | | | | | [facility] | | | | | | and Healing, | | | | | | [address] | | | | | | [place], [place] | | | | | | [address] | | | +--------+ + + + [...] | 2019 | Visit | Oncology | [address] | | | | | | [address] | | | | | | [place] | | | | | | [address] | | | | | | [phone] | | | | | | | | +--------+---------+ + + + documented as of this encounter Visit Diagnoses Not on filedocumented in this encounter"
--- OUTSIDE RECORDS SUMMARY | ~2020-05-06 | XMS | Encounter Summary ---
Demographics + + + | Address | [address] | | | [place] [address] | + + + | Home Phone [...] Team Providers + +------+ + | Care Die Cast Supervisor Name | Role | Phone | [...] Pharmacy | | | | | | [address] | | | | | | Loop [place], [place] | | | | | | [address] | | | | | | [phone] | | | +--------+ + + + [...] | Office | Hematology & | Lissette Jnoes, | | | 2019 | Visit | Oncology | [address] | | | | | | [address] | | | | | | [place] | | | | | | [address] | | | | | | [phone] | | | | | | | | +--------+---------+ + + + documented as of this encounter Visit Diagnoses Not on filedocumented in this encounter"
--- OUTSIDE RECORDS SUMMARY | ~2020-05-06 | XMS | Encounter Summary ---
Demographics + + + | Address | [address] | | | [place] [address] | + + + | Home Phone [...] Team Providers + +------+ + | Care Kinesiology Professor Name | Role | Phone | + +------+ + | Lissette Martinez PA-C PCP | | + +------+ + Encounter Details +--------+--------+ + + + | Date | Type | Department | Care Team | Description | +--------+--------+ + + + | 02/23/ | Travel [...] | 2019 | Visit | Oncology | [address] | | | | | [address] | | | | | | [place] | | | | | | [address] | | | | | | [phone] | | | | | | | | +--------+---------+ + + + documented as of this encounter Visit Diagnoses Not on filedocumented in this encounter"
--- OUTSIDE RECORDS SUMMARY | ~2020-05-06 | XMS | Encounter Summary ---
Demographics + + + | Address | [address] | | | [place] [address] | + + + | Home Phone [...] Team Providers + +------+ + | Care Willow Analyst Name | Role | Phone | [...] Pharmacy | | | | | | [address] | | | | | | Loop [place], [place] | | | | | | [address] | | | | | | [phone] | | | +--------+ + + + [...] | 2019 | Visit | Oncology | [address] | | | | | | [address] | | | | | | [place] | | | | | | [address] | | | | | | [phone] | | | | | | | | +--------+---------+ + + + documented as of this encounter Visit Diagnoses Not on filedocumented in this encounter"
--- OUTSIDE RECORDS SUMMARY | ~2020-05-06 | XMS | Encounter Summary ---
Demographics + + + | Address | [address] | | | [place] [address] | + + + | Home Phone | | + + + | Preferred Language | Unknown | + + + | Marital Status | | + + + | Zoroastrian Affiliation | 1013 | + + + | Race | or Other | + + + | Ethnic Group | Not or | + + + Author + + + | Author | [facility] | | | and Shahram | + + + | Organization | [facility] | | | and Marcana [...] Team Providers + +------+ + | Care Tacking Machine Operator Name | Role | Phone | + +------+ + PCP | Unavailable | + +------+ + Encounter Details +--------+ + + + + | Date | Type | Department | Care Team | Description | +--------+ + + + + | 05/07/ | Hospital | [facility] | | | | 2006 | Encounter | MED CTR CANCER | | | | | | CENTER [address] | | | | | | [place] | | | | | | [address] | | | | | | [phone] | | | +--------+ + + + [...]
--- OUTSIDE RECORDS SUMMARY | ~2020-05-06 | XMS | Encounter Summary ---
[...] Team Providers + +------+ + | Care Correction Officer Head Name | Role | Phone | + [...] | 2019 | Visit | Oncology | [address] | | | | | | [address] | | | | | | [place] | | | | | | [address] | | | | | | [phone] | | | | | | | | +--------+---------+ + + + documented as of this encounter Visit Diagnoses Not on filedocumented in this encounter"
--- OUTSIDE RECORDS SUMMARY | ~2020-05-06 | XMS | Encounter Summary ---
Demographics + + + | Address | [address] | | | [place] [address] | + + + | Home Phone [...] | Author | [facility] | | | and Shahram | + + + | Organization | [facility] | | | and Marcana | [...] Team Providers + +------+ + | Care Securities Research Analyst Name | Role | Phone | [...] | | | [address] | [place] [address] | | | | | [place] [address] | | | | | | [phone] | | | +--------+ + + + [...] + + + | CT ABDOMEN W | Routin | 11/23/2019 | | Results for this | | CONTRAST | e | 12:05 AM | | procedure are in the | | | | PDT | | results section. | + +--------+ + + + documented in this encounter Results CT Abdomen w Contrast (11/23/2019 12:05 AM PDT) + + | Specimen | [...]
--- OUTSIDE RECORDS SUMMARY | ~2020-05-06 | XMS | Encounter Summary ---
Demographics + + + | Address | [address] | | | [place] [address] | + + + | Home Phone [...] Team Providers + +------+ + | Care Hauling Contractor Name | Role | Phone | + [...] | | Clinics at S | [place] [address] [address] | | | | | [address] | | | | | [facility] for | [place], [place] | | | | | Health and Healing, | [address] | | | | | [address] | [phone] | | | | | [place], [place] | | | | | | [address] | | | | | | [phone] | | | +--------+--------+ + + + [...] and Time Department Ordering/Authorizing 02/13/2020 10:[address] [facility] Lissette Jones MD Outpatient Medication Detail Disp Refills oxyCODONE (immediate release) 5 mg oral tablet 120 tablet 0 Sig: Take 1 tablet by mouth every four hours as needed. Sent to pharmacy as: oxyCODONE 5 mg tablet (ROXICODONE) Class: eRx Earliest Fill Date: 02/13/2020 Route: oral Order: [id number] E-Prescribing Status: Receipt confirmed by pharmacy (02/13/2020 10:43 AM PDT) Start Date Earliest Fill Date Feb 13, 2020 Feb 13, 2020 Date and Time Department Ordering/Authorizing 11/28/2019 4:50 PM [facility] Lissette Jaime, DO Outpatient Medication Detail Disp Refills enoxaparin 80 mg/0.8 mL subcutaneous syringe (Discontinued) 48 mL 0 Sig: Inject 0.8 mL under the skin (SUBC) every twelve hours. Indications: anticoagulation t reatment Sent to pharmacy as: enoxaparin 80 mg/0.8 mL subcutaneous syringe (LOVENOX) Class: eRx Route: subcutaneous Reason for Discontinue: Reorder Order: [id number] Start Date End Date Nov 28, 2019 Dec 26, 2019 Controlled Substance Requested: Routing to RN Coordinator for review prior to sending to [facility] Rebol[facility] signed by Doreen Chinchilla MA at 03/19/2020 3:58 PM PDTTelephone Encounter - Carlo Navas - 03/19/2020 3:40 PM PDTPatient calls, states that [facility] have sent a request from Oxycodone on [...] the patient wants the prescription refilled at: [facility][id number] - [place], [place] - [address] [phone] Is it ok to leave a confidential [...] category of medication and redirected patient to [facility] directly. Name of medication: Oxycodone Dose: 5 mg Frequency - How often are you taking it?: 1 every 4 hours as needed How much of the prescription do you have left - When will you run out?: 2 days' worth left Pharmacy the patient wants the prescription refilled at: [facility] #[id number] - [place], [place] - [address] [phone] Is it ok to leave a confidential voicemail?: Patient approves confidential and detailed mes sages left on answering machine and voicemail. Patient reminded of Clinic Refill Policy: 48-72 business hours to process refill requests. elephone Encounter - Anai Toribio - 03/16/2020 4:36 PM PDTRx Refill: Routing encounter to SAMSON law for processing.. Pharmacy Name: [facility] Phone #: [phone] -->SAMSON : Please review prescription refill request. Thank you. documented in this encount er Plan of Treatment +--------+---------+ + + + | Date | Type | Specialty | Care Team | Description | +--------+---------+ + + + | 06/26/ | Office | Hematology & | Lissette Jones, | | | 2019 | Visit | Oncology | [address] | | | | | | [address] | | | | | | [place] | | | | | | [address] | | | | | | [phone] | | | | | | | | +--------+---------+ + + + documented as of this encounter Visit Diagnoses Not on filedocumented in this encounter"
--- OUTSIDE RECORDS SUMMARY | ~2020-05-06 | XMS | Encounter Summary ---
Demographics + + + | Address | [address] | | | [place] [address] | + + + | Home Phone | | + + + | Preferred Language | Unknown | + + + | Marital Status | Single | + + + | Rastafarian Affiliation | CHR | + + + [...] Team Providers + +------+ + | Care Cash On Delivery Clerk Name | Role | Phone | [...] + + + + | 10/31/ | Clinical | Laboratory at [facility] | | Lab Draw | | 2020 | Support | [address] | | | | | Staff | [facility] | | | | | | and Healing, | | | | | | [address] | | | | | | [place], [place] | | | | | | [address] | | | | | | [phone] | | | +--------+ + + + [...] encounter Progress Notes Hui Saxena RN - 10/31/2019 9:00 AM PSTPIV LAC started per protocol for labs and fallon tment. CBC, CMP, TSH, free T4 and cortisol drawn via PIV and sent to lab. Pt tolerated witho ut incident. Pt discharged to provider visit. documented in this en counter Plan of Treatment +--------+---------+ + + + | Date | Type | Specialty | Care Team | Description | +--------+---------+ + + + | 10/20/ | Office | Hematology & | Lissette Jones, | | | 2019 | Visit | Oncology | [address] | | | | | [address] | | | | | | [place] | | | | | | [address] | | | | | | [phone] | | | | | | | | +--------+---------+ + + + documented as of this encounter Procedures + +--------+ + + + | Procedure Name | Priori | Date/Time | Associated Diagnosis | Comments | | | ty | | | | + +--------+ + + + | FREE T4 - OLP | Routin | 10/31/2019 | Renal cell | Results for this | | | e | 9:10 AM | carcinoma of left | procedure are in the | | | | PST | kidney (HCC) | results section. | + +--------+ + + + | TSH - OLP | Routin | 10/31/2019 | Renal cell | Results for this | | | e | 9:10 AM | carcinoma of left | procedure are in the | | | | PST | kidney (HCC) | results section. | + +--------+ + + + | CORTISOL, SERUM - | Routin | 10/31/2019 | Renal cell | Results for this | | OLP | e | 9:10 AM | carcinoma of left | procedure are in the | | | | PST | kidney (HCC) | results section. | + +--------+ + + + | CBC AND AUTO DIFF - | Routin | 10/31/2019 | Renal cell | Results for this | | [facility] | e | 9:10 AM | carcinoma of left | procedure are in the | | | | PST | kidney (HCC) | results section. | + +--------+ + + + | COMPLETE METABOLIC | Routin | 10/31/2019 | Renal cell | Results for this | | PANEL - OLP | e | 9:10 AM | carcinoma of left | procedure are in the | | | | PST | kidney (HCC) | results section. | + +--------+ + + + | CBC WITH AUTO DIFF - | Routin | 10/31/2019 | Renal cell | Results for this | | OLP | e | 9:10 AM | carcinoma of left | procedure are in the | | | | PST | kidney ([facility]) | results section. | + +--------+ + + + | [facility] - COMPLETE | Routin | 10/31/2019 | Renal cell | Results for this | | METABOLIC SET | e | 9:10 AM | carcinoma of left | procedure are in the | | | | PST | kidney (HCC) | results section. | + +--------+ + + + | FREE T4 | Routin | 10/31/2019 | Renal cell | Results for this | | | e | 9:10 AM | carcinoma of left | procedure are in the | | | | PST | kidney (HCC) | results section. | + +--------+ + + + | TSH | Routin | 10/31/2019 | Renal cell | Results for this | | | e | 9:10 AM | carcinoma of left | procedure are in the | | | | PST | kidney (HCC) | results section. | + +--------+ + + + | CORTISOL, SERUM | Routin | 10/31/2019 | Renal cell | Results for this | | | e | 9:10 AM | carcinoma of left | procedure are in the | | | | PST | kidney ([facility]) | results section. | + +--------+ + + + documented in this encounter Results CORTISOL, SERUM (10/31/2019 9:10 AM PST) + +-------+ + + + | Component | Value | Ref Range | Performed | Pathologist | | | | | At | Signature | + +-------+ + + + | CORTISOL, | 24.1 | ug/dL | [facility] | | | [...] | + + + + + | [facility] | [address] | [place] [address] | | | SERVICES, CORE | [address] | | | + + + + + FREE T4 (10/31/2019 9:10 AM PST) + +-------+ + + + | Component | Value | Ref Range | Performed | Pathologist | | | | | At | Signature | + +-------+ + + + | FREE T4 | 1.2 | 0.6 - 1.2 ng/dL | [facility] | | | | | | LABORATORY [...] + + | [facility] | [address] | [place] [address] | | | SERVICES, CORE | [address] | | | + + + + + TSH (10/31/2019 9:10 AM PST) + + + + + + | Component | Value | Ref Range | Performed | Pathologist | | | | | At | Signature | + + + + + + | TSH | 13.70 (H) | 0.50 - 5.07 | [facility] [...] + + | [facility] | [address] | [place] [address] | | | [address] | [address] | | | + + + + + [facility] - COMPLETE METABOLIC SET (10/31/2019 9:10 AM PST) + + + + + + | Component | Value | Ref Range | Performed | Pathologist | | | | | At | Signature | + + + + + + | GLUCOSE, | 81 | 70 - 99 mg/dL | [facility] | | | PLASMA | | | LABORATORY | | | (LAB) | | | SERVICES, | | | | | | [facility] FOR | | | | | | HEALTH + | | | | | | HEALING | | + + + + + + | BUN, PLASMA | 54 (H) | 6 - 20 mg/dL | [...] | | | LABORATORY | | | ITALIAN | | | SERVICES, | | | [...] + + + + | SODIUM, | 129 (L) | 136 - 145 | [facility] [...] + + + + | CHLORIDE, | 101 | 97 - 108 mmol/L | [facility] | | | PLASMA | | | LABORATORY | | | (LAB) | | | SERVICES, | | | | | | [facility] | | | | | | HEALTH + | | | | | | HEALING | | + + + + + + | TOTAL CO2, | 19 (L) | 21 - 32 mmol/L | [...] + + + + | CALCIUM(ALB | 9.6 [...] + + + + | ALBUMIN, | 2.1 [...] + + + | ALK PHOS | 109 (H) | 42 - 98 U/L | [facility] | | | | | | LABORATORY | | | | | | SERVICES, | | | | | | [facility] | | | | | | HEALTH + | | | | | | HEALING | | + + + + + + | AST(SGOT) | 51 (H) | <=41 U/L | [facility] | | | | | | LABORATORY | | | | | | SERVICES, | | | | | | [facility] | | | | | | HE[facility] + | | | | | | HEALING | | + + + + + + | ALT (SGPT) | 24 | <=60 U/L | [facility] | | [...] + + + + | BUN/CREATIN | 34 (H) | 8 - 25 | [facility] [...] + | ALBUMIN/NICOLETTE | 0.5 (L) | 0.9 - 2.0 | [facility] [...] MDRD equation recommended by the National | [facility] | | Kidney Disease Education Program. Estimated [...] | [facility] | [address] | [place] [address] | | | SERVICES, [place] [facility] | | | | | HEALTH + HEALING | | | | + + + + + CBC AND AUTO DIFF - [facility] (10/31/2019 9:10 AM PST) + + + + + [...] + + + | RED CELL | 4.37 | 4.00 - 5.20 | [facility] | | | COUNT | | M/cu mm | LABORATORY | | | | | | SERVICES, | | | | | | [facility] | | | | | | HE[facility] + | | | | | | HEALING | | + + + + + + | HEMOGLOBIN | 12.2 | 12.0 - 16.0 | [facility] | | | | | g/dL | LABORATORY | | | | | | SERVICES, | | | | | | [facility] | | | | | | HEALTH + | | | | | | HEALING | | + + + + + + | HEMATOCRIT | 38.6 | 36.0 - 46.0 % | [facility] [...] + + + | RDW SD | 56.3 (H) | 35.1 - 46.3 fL | [facility] | | | | | | LABORATORY | | | | | | SERVICES, | | | | | | [facility] | | | | | | HE[facility] + | | | | | | HEALING | | + + + + + + | PLATELET | 249 | 150 - 400 K/cu | [facility] [...] + + + + | NEUTROPHIL | 69.7 | 50.0 - 70.0 % | [facility] [...] + + + | MONOCYTE % | 9.5 (H) | 3.5 - 9.0 % | [facility] | | | | | | LABORATORY | | | | | | SERVICES, | | | | | | [facility] | | | | | | HEALTH + | | | | | | HEALING | | + + + + + + | EOS % | 5.3 (H) | 1.0 - 3.0 % | [facility] | | | | | | LABORATORY | | | | | | SERVICES, | | | | | | [facility] | | | | | | HEALTH + | | | | | | HEALING | | + + + + + + | BASO % | 2.1 (H) | 0.0 - 2.0 % | [facility] | | | | | | LABORATORY | | | | | | SERVICES, | | | | | | [facility] | | | | | | HEALTH + | | | | | | HEALING | | + + + + + + | IG% | 0.8 | 0.0 - 1.0 % | [facility] | | | | | | LABORATORY | | | | | | SERVICES, | | | | | | [facility] | | | | | | HEALTH + | | | | | | HEALING | | + + + + + + | NEUTROPHIL | 3.39 | 1.80 - 7.70 | [facility] | | | # | | K/cu mm | LABORATORY | | | | | | SERVICES, | | | | | | [facility] FOR | | | | | | HEALTH + | | | | | | HEALING | | + + + + + + | NEUTROPHIL | 3.39Comment: Preliminary | 1.80 - 7.70 | [facility] [...] + + + + | LYMPHOCYTE | 0.61 (L) | 1.00 - 4.80 | [facility] [...] + + + | BASO # | 0.10 | 0.00 - 0.10 | [facility] | | | | | K/cu mm | LABORATORY | | | | | | SERVICES, | | | | | | [facility] FOR | | | | | | HEALTH + | | | | | | HEALING | | + + + + + + | IG# | 0.04 | 0.00 - 0.10 | [...] + + + | [facility] | [address] | [place] [address] | | | [facility] | | | | | HEALTH + HEALING | | | | + + + + + documented in this encounter Visit Diagnoses + + | Diagnosis | + + | 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
--- OUTSIDE RECORDS SUMMARY | ~2020-05-06 | XMS | Encounter Summary ---
Demographics + + + | Address | [address] | | | [place] [address] | + + + | Home Phone [...] Author + + + | Author | [facility] | + + + | Organization | [facility] | + + + | Address | Unknown | + + + | Phone | Unavailable | + + + Support + + +---------+ + | Name | Relationship | Address | Phone | + + +---------+ + | William Talavera | ECON | Unknown | | + + +---------+ + Care Team Providers + +------+ + | Care Balance Wheel Facer Name | Role | Phone | + [...] | at [facility] [address] | [address] [facility] | | | | | [address] | [facility] | | | | | [address]ju, 4th floor | [place], [place] | | | | | [place], [place] | [address] | | | | | [address] | [phone] | | | | | [phone] | | | +--------+ + + + [...] her MRI is on 04/19 @10:30am at [facility]. We scheduled her for a phone FUP on 04/20 @10am with Dr. Beard. Closing encounter. elephon e Encounter - Promise Rodrigues - 04/02/2020 3:38 PM PDTAliciandrew will be due for a new MRI and ph one FUP with Dr. Beard around 04/21/20. I called her today and let her know I have faxed the MRI order to [facility] and re quested she calls me once the MRI is scheduled so we can set her up for a phone FUP with Dr. Beard. I provided the contact information for [facility] and Tila confirmed she will clark [...] | 2019 | Visit | Oncology | [address] | | | | | | [address] | | | | | | [place] | | | | | | [address] | | | | | | [phone] | | | | | | | | +--------+---------+ + + + documented as of this encounter Visit Diagnoses Not on filedocumented in this encounter"
--- OUTSIDE RECORDS SUMMARY | ~2020-05-06 | XMS | Encounter Summary ---
Demographics + + + | Address | [address] | | | [place] [address] | + + + | Home Phone [...] Providers + +------+ + | Care Asphalt Raker Name | Role | Phone | + [...] | | Clinics at S | [place] [address] [address] | | | | | [address] | | | | | [facility] for | [place], [place] | | | | | Health and [facility], | [address] | | | | | [place] [address] | [phone] | | | | | [place], [place] | | | | | | [address] | | | | | | [phone] | | | +--------+ + + + [...] and that she needs to call the [facility] to schedule her CT scan. Will call [...] have ot make the drive up to [place] unless insurance does not give authorization. Can we get auth for local scans and notify surgical scheduler once approval has come through?Electro nically signed by Lito Keyes at 02/14/2020 1:29 PM PDTTelephone Encounter - Khushboo Jimenez - 02/14/2020 12:19 PM PDTTeam Coordinator Documentation: Subject: Note TC: [facility] messaged back "location updated" for patients CT scan order. Routing to Dr. Jones/ Philip PRATT/ Mike surgical scheduler to have patient scheduled for CT scan -->Note to RNC: HOMA elephone Ness Balderrama Theodora tierneyAnai darling - 02/13/2020 10:57 AM PDTTeam Coordinator Documentation: Subject: Note TC: Sent [email or web address] message to retrieve auth for [facility], will update when [email or web address] messages back -->Note to RNC: Homa documented in this encount er Plan of Treatment +--------+---------+ + + + | Date | Type | Specialty | Care Team | Description | +--------+---------+ + + + | 06/26/ | Office | Hematology & | Lissette Jones, | | 2019 | Visit | Oncology | [address] | | | | | [address] | | | | | | [place] | | | | | | [address] | | | | | | [phone] | | | | | | | | +--------+---------+ + + + documented as of this encounter Visit Diagnoses Not on filedocumented in this encounter
--- OUTSIDE RECORDS SUMMARY | ~2020-05-06 | XMS | Encounter Summary ---
Demographics + + + | Address | [address] | | | [place] [address] | + + + | Home Phone [...] Team Providers + +------+ + | Care Open Winder Name | Role | Phone | + [...] | 03/12/ | Clinical | Laboratory at [facility] | | Lab Draw | | 2020 | Support | [address] | | | | | Staff | [facility] | | | | | | and Healing, | | | | | | [address] | | | | | | [place], [place] | | | | | | [address] | | | | | | [phone] | | | +--------+ + + + [...] | 2019 | Visit | Oncology | [address] | | | | [address] | | | | | | [place] | | | | | | [address] | | | | | | [phone] | | | | | | | [...] [facility] | [address] | [place] [address] | | | SERVICES, CORE | [address] [...] [facility] | [address] | [place] [address] | | | [address] | [address] [...] | | | LABORATORY | | | [place] | | | SERVICES, | | | [...] MDRD equation recommended by the National | [facility] | | Kidney Disease [...] | + + + + + | [facility] [employer] | [address] | [place] [address] | | | SERVICES, [place] [facility] | | | | | HEALTH [...] | included in the neutrophil count. | [facility] | | | HEALTH + | | | HEALING | + + + + + + + + | Performing | Address | City/State/Zipcode | Phone Number | | Organization | | | | + + + + + | [facility] | [address] | [place] [address] | | | [facility] | | | | | HEALTH + HEALING | | | | + + + + + documented in this encounter Visit Diagnoses + + | Diagnosis | + + | 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
--- OUTSIDE RECORDS SUMMARY | ~2020-05-06 | XMS | Encounter Summary ---
Demographics + + + | Address | [address] | | | [place] [address] | + + + | Home Phone | | + + + | Preferred Language | Unknown | + + + | Marital Status | Single | + + + | Methodist Affiliation | CHR | + + + [...] Team Providers + +------+ + | Care Php Website Developer Name | Role | Phone | [...] | | | | Renal cell | [place], | [facility] [address] | | | | | carcinoma of | [place] [address] | | | | | left kidney | [place] | Center for | | | | | ([facility]) | Ct | Health and | | | | | Procedures | [place], | Healing, | | | | | CT CHEST, | [place] | [address], | | | | | ABDOMEN AND | [address] | 3rd Floor | | | | | PELVIS W IV | Phone: | [place], [place] | | | | | [place] | [phone] | [address] | | | | | CAT SCAN OF | Fax: | Phone: | | | | | CHEST | [phone] | [phone] | | | | | [place] | | Fax: | | | | | CT | | [phone] | | | | | ABDOMEN&PELV | | | | | | | IS | | | | | | | W/CONTRAST | | | +--------+--------+ + + + + Reason for Visit + +--------+ + | Reason | Onset | Comments | | | Date | | + +--------+ + | Scheduling | 01/17/ | | | | 2020 | | + +--------+ + Encounter Details +--------+ + + + + | Date | Type | Department | Care Team | Description | +--------+ + + + + | 01/17/ | Telephone | [facility] | Lissette Jones, | Scheduling | | 2020 | | Clinics at S | [place] [address] | | | | | [address] | | | | | [facility] for | [place], [place] | | | | | Health and Healing, | [address] | | | | | [address] | [phone] | | | | | [place], [place] | | | | | | [address] | | | | | | [phone] | | | +--------+ + + + [...] Notes Telephone Encounter - Anai Jimenez - 02/14/2020 12:16 PM PDTTeam Coordinator Documentatio n: Subject: Note TC: Patient did not complete CT scan ordered last week. Dr. Jones stated that patient is shawn ling to get it done at [facility]. Obtained authorization for scan to be done here. -->Note to RNC: NANI elephone Encounter - Guanako Strickland - 02/10/2020 4:41 PM PDTTeam Coordinator Documentation: Subject: Note TC: Images and reports requested. Will update this encounter once received. -->Note to RNC: CHEYENNEI elephone Encounter - Anai Leos - 01/31/2020 3:37 PM PDTTeam Coordinator Documentation: Subject: Note TC: Obtained authorization, faxed CT order to [facility] -->Note to RNC: NANI elephone Encounter - Carlo Navas - 01/31/2020 3:08 PM PDTPatient calls, asks about CT orders. States [facility] not received the orders yet. Confirms they should go to fax number [phone]. LIZZ relays that we are still working on getting the prior auth, and [facility] should be receiving it soon. NANI elephone Anai Martel - 01/19/2020 11:40 AM PDTTeam Coordinator Documentation: Subject: Note TC: Working on getting auth for scans, will fax out order when auth is obtained -->Note to RNC: Nani elephone Encounter - Lito Dumont - 01/18/2020 6:07 PM PDTTelephone call to patient, agreed to scheduled labs/MD /OTU on 02/12. FYI. ZAMUDIO will work on future cycles. 6:0 8 PM PDTTelephone Encounter - Ariana Montes RN - 01/18/2020 5:28 PM PDTOrders Placed f or CT scan locally --> [facility] TC: Please fax CT orders to [facility] in [facility] --> [facility] Plug Assembler: Please schedule follow up for the week of 02/12. elephone Encounter - Luisa Montes RN - 01/18/2020 5:09 PM PDTFormatting of this note might be different from the origi nal. Returned phone call to Tila-informed her Dr. Jones's instructions that she would like to h ave her CT done with IV contrast as it is better for tumor assessment. I will reorder the C T scan, so that it can be done locally, and follow up with her the week of 02/12. She has no further questions at this time and is in agreement with this treatment plan. MD Ariana Roberts RN Cc: [facility] Sched ule Caller: Unspecified (Today, 10:49 AM) Ok to schedule phone visit or virtual for following week If her cr is ok I would like with contrast It s not helpful to have ct wo contrast for tumor assessment elephone Encounter - Ariana Montes RN - 01/18/2020 11:48 AM PDTReturned phone call to Tila- she is wond ering if she can schedule follow up with Dr. Jones on 02/05? And also would like to get her CT done locally, and was also wanting to make sure it was done without contrast as she thought the CT scans were being done without contrast to preserve her one good kidney. Informed Tila she will get a call from scheduling once we find out from Dr. Jones if she s eeing patients that day, Monday 02/05, patient is agreeable to come a different day that week. Informed her we will clarify CT orders and fax to [facility] in [facility] as requested. Informed her she should receive a call from [facility] to lai mireles. She is in agreement with this plan and has no further questions at this time. Routed to Dr. Jones for advisement. 20 12:04 PM PDTTelephone Encounter - Carlo Navas - 01/18/2020 10:46 AM PDTPatient calls, asks to schedule next Lab/MD/Infusion appointment. She is due on 02/05, and Dr. Jones is not a vailable that day. Please advise program scheduler. Patient is also due for a CT. Asks if the CT can be done locally, at [facility] in [facility]. Routing to Schedule Routing to RNC documented i n this encounter Plan of Treatment +--------+---------+ + + + | Date | Type | Specialty | Care Team | Description | +--------+---------+ + + + | 06/26/ | Office | Hematology & | Lissette Jones, | | | 2019 | Visit | Oncology | [address] | | | | | | [address] | | | | | | [facility] [place] | | | | | | [address] | | | | | | [phone] | | | | | | | | +--------+---------+ + + + documented as of this encounter Visit Diagnoses + + | Diagnosis | + + | 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
--- OUTSIDE RECORDS SUMMARY | ~2020-05-06 | XMS | Encounter Summary ---
Demographics + + + | Address | [address] | | | [place] [address] | + + + | Home Phone [...] | Author | [facility] | | | and Shahram | + + + | Organization | [facility] | [...] Team Providers + +------+ + | Care Screening Unit Registered Nurse Name | Role | Phone | + +------+ + PCP | Unavailable | + +------+ + Encounter Details +--------+ + + + + | Date | Type | Department | Care Team | Description | +--------+ + + + + | 10/31/ | Hospital | [facility] | | | | 2004 - | Encounter | MED CTR GENERIC OP | | | | | | CONV DEPT [address] | | | | 01/29/ | | [place], | | | | 2004 | | [place] [address] | | | | | | [phone] | | | +--------+ + + + [...]
--- OUTSIDE RECORDS SUMMARY | ~2020-05-06 | XMS | Encounter Summary ---
Demographics + + + | Address | [address] | | | [place] [address] | + + + | Home Phone [...] Team Providers + +------+ + | Care Stained Glass Painter Name | Role | Phone | [...] Description | +--------+---------+ + + + | 08/24/ | Office | [facility] | Jay JayvillaL[place], | Renal cell carcinoma | | 2019 | Visit | Clinics at S | [place] [address] | of left kidney | | | | [facility] [address] | (HCC) (Primary Dx) | | | | [facility] | [place], [place] | | | | | Health and [facility], | [address] | | | | | [place] [address] | [phone] | | | | | [place], [place] | | | | | | [address] | | | | | | [phone] | | | +--------+---------+ + + + [...] encounter Progress Notes Lissette Jones MD - 08/24/2019 3:15 PM PSTFormatting of this note might be different fr om the original. FOLLOW-UP NOTE Patient: Tila Storyh Date: 08/24/2019 : 1965 AGE: 54 y.o. Attending Physician: Lissette Jones MD Diagnosis Oncology History Diagnosis Stage IV clear cell carcinoma of [...] L2 compression fracture with 50% height loss Hodgkins disease 2002 s/p CHOPP and also chest RT Current Treatment Work up Interval History Tila Altman presents today for pamidronate and IVF. Pain is has decreased since startin g oxycodone. The pain is causing her to use a wheel chair (but only due to pain), she's othe rwise active. She denies dizziness but has ongoing nausea. Impression/Plan Tila Altman is a 54 y.o. woman with Tila Altman is a 54 y.o. 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 She has a remote h/o Hodgkins s/p CHOPP and RT with resultant hypothyroidism Hypercalcemia- pamidronate today Hyperkalemia with renal insufficiency- IVF, repeat K/Cr post IVF Hypothyroidism- increase synthroid dose to 137mcg po qday Pain - continue oxycodone She will be admitted for further hydration (BP <90/60), monitor K and calcium, IR consult f or vertebroplasty/kyphoplasty of L2 vertebral fracture and RT consult. I discussed this with family. Medications: Current Outpatient Medications Medication Sig atenolol 50 mg oral tablet Take 25 mg by mouth once daily. HYDROcodone-acetaminophen 5-325 mg oral tablet Take 1 tablet by mouth every five hour a s needed for moderate pain. levothyroxine 137 mcg oral tablet Take 1 tablet by mouth before breakfast. lisinopril 5 mg oral tablet Take 5 mg by mouth once daily. lovastatin 20 mg oral tablet Take 20 mg by mouth once daily in the evening. Administer with evening meal. oxyCODONE (immediate release) 5 mg oral tablet Take 1-2 tablets by mouth every four edgar rs as needed for breakthrough pain. No current facility-administered medications for this visit. Facility-Administered Medications Ordered in Other Visits Medication Dose Route Frequency Provider Last Rate Last Dose pamidronate (AREDIA) 90 mg in sodium chloride (NS) 0.9 % IV 90 mg intravenous ONCE Anthony Jones MD 265 mL/hr at 08/24/19 1516 90 mg at 08/24/19 1516 sodium chloride (NS) 0.9 % bolus 1,000 mL 1,000 mL intravenous ONCE Khushboo Roberts 1,000 mL at 08/24/19 1539 Review of Systems: A 13 point review [...] Coherent speech. Appropriate mood/affect. Laboratory: LAB RESULTS: No visits with results within 1 Day(s) from this visit. Latest known visit with results is: Lab on 08/23/2019 Component Date Value GLUCOSE, PLASMA (LAB) 08/23/2019 99 BUN, PLASMA (LAB) 08/23/2019 51* CREATININE PLASMA (LAB) 08/23/2019 2.12* EGFR - [place] 08/23/2019 29* EGFR NON -[place] 08/23/2019 24* SODIUM, PLASMA (LAB) 08/23/2019 137 POTASSIUM, PLASMA (LAB) 08/23/2019 6.0* CHLORIDE, PLASMA (LAB) 08/23/2019 105 TOTAL CO2, PLASMA (LAB) 08/23/2019 24 CALCIUM, PLASMA (LAB) 08/23/2019 12.9* CALCIUM(ALB CORRECTED) 08/23/2019 13.6* BILIRUBIN TOTAL 08/23/2019 0.7 TOTAL PROTEIN, PLASMA (L* 08/23/2019 6.9 ALBUMIN, PLASMA (LAB) 08/23/2019 3.1* ALK PHOS 08/23/2019 89 AST(SGOT) 08/23/2019 42* ALT (SGPT) 08/23/2019 21 ANION GAP 08/23/2019 8 ANION GAP(ALB CORRECTED) 08/23/2019 10 TSH 08/23/2019 21.90* FREE T4 08/23/2019 1.1 COLOR(UR) 08/23/2019 Catrina* APPEARANCE 08/23/2019 Sl.Cloudy* GLUCOSE(UR) 08/23/2019 100.0 PROTEIN(LAB) 08/23/2019 =>300.0 * BILIRUBIN 08/23/2019 Small* UROBILINOGEN 08/23/2019 0.2 PH(UR) 08/23/2019 7.0 BLOOD 08/23/2019 Large* KETONES 08/23/2019 Negative NITRITES 08/23/2019 Negative LEUKOCYTE ESTERASE 08/23/2019 Negative SPECIFIC GRAVITY 08/23/2019 1.020 WHITE CELL COUNT 08/23/2019 4.01 RED CELL COUNT 08/23/2019 4.22 HEMOGLOBIN 08/23/2019 11.9* HEMATOCRIT 08/23/2019 37.9 MCV 08/23/2019 89.8 MCHC 08/23/2019 31.4* RDW SD 08/23/2019 51.2* PLATELET COUNT 08/23/2019 157 MPV 08/23/2019 8.7* NRBC% 08/23/2019 0.0 NRBC# 08/23/2019 0.00 NEUTROPHIL % 08/23/2019 77.6* LYMPHOCYTE % 08/23/2019 10.5* MONOCYTE % 08/23/2019 8.0 EOS % 08/23/2019 2.7 BASO % 08/23/2019 0.7 IG% 08/23/2019 0.5 NEUTROPHIL # 08/23/2019 3.11 NEUTROPHIL # Prelim 08/23/2019 3.11 LYMPHOCYTE # 08/23/2019 0.42* MONOCYTE # 08/23/2019 0.32 EOS # 08/23/2019 0.11 BASO # 08/23/2019 0.03 IG# 08/23/2019 0.02 Lissette Jones MD documented in this e ncounter Plan of Treatment +--------+---------+ + + + | Date | Type | Specialty | Care Team | Description | +--------+---------+ + + + | 06/26/ | Office | Hematology & | Lissette Jones, | | | 2019 | Visit | Oncology | [address] | | | | | | [address] | | | | | | [place] | | | | | | [address] | | | | | | [phone] | | | | | | | | +--------+---------+ + + + documented as of this encounter Visit Diagnoses + + | Diagnosis | + + | 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
--- OUTSIDE RECORDS SUMMARY | ~2020-05-06 | XMS | Encounter Summary ---
Demographics + + + | Address | [address] | | | [place] [address] | + + + | Home Phone [...] Team Providers + +------+ + | Care Triage Register Nurse Name | Role | Phone | [...] | 2019 | | Nate Correia | [address] | | | | | [address] | | | | | [place], [place] | [place], [place] | | | | | [address] | [address] | | | | | [phone] | [phone] | | | | | | | [...] care. She asked for call back at [phone] but we do not h ave [facility] for Amada. Research notes that William [...] | 2019 | Visit | Oncology | [address] [address] | | | | | [address] | | | | | | [facility] [place] | | | | | | [address] | | | | | | [phone] | | | | | | | | +--------+---------+ + + + documented as of this encounter Visit Diagnoses Not on filedocumented in this encounter"
--- OUTSIDE RECORDS SUMMARY | ~2020-05-06 | XMS | Encounter Summary ---
Demographics + + + | Address | [address] | | | [place] [address] | + + + | Home Phone | | + + + | Preferred Language | Unknown | + + + | Marital Status | | + + + | Confucianism Affiliation | 1013 | + + + | Race | or Other | + + + | Ethnic Group | Not or | + + + Author + + + | Author | [facility] | | | and Shahram | + + + | Organization | [facility] | | | and [...] Team Providers + +------+ + | Care Speech And Language Specialist Name | Role | Phone | [...] | | | | | [place] [address] | | | | | | [phone] | | | +--------+ + + + [...] Dickson RN - 12/14/2019 11:37 AM PDT [facility] Interdisciplinary Team Navigational Checklist ? Top Priority Discipline EPIC Order Entered Consult Scheduled Consult Complete Comments: *Medical Oncology x *Radiation Oncology Dr. Janiya Velazco 12/13/19 x *Patient Navigation x *Nurse Navigator *Social Service Survivorship Nurse Breast Health Genetics Surgical Input *Nursing assessment *Pharmacy assessment Nutrition Rehab: PT OT Speech & Language Palliative Care Clinical Trials Involvement Data Processing Manager Visit Financial Assistance Interdisciplinary Consults Completed Date: documented in this en counter Plan of Treatment Not on filedocumented as of this encounter Visit Diagnoses Not on filedocumented in this encounter"
--- OUTSIDE RECORDS SUMMARY | ~2020-05-06 | XMS | Encounter Summary ---
Demographics + + + | Address | [address] | | | [place] [address] | + + + | Home Phone [...] Team Providers + +------+ + | Care Hobbies And Crafts Sales Representative Name | Role | Phone | [...] | neoplasm of | RADHA Curran | [address] | | | | | unspecified | [place] | [address] | | | | | kidney, | Family | [place], | | | | | except renal | Medicine | [place] [address] | | | | | pelvis | [address] | Phone: | | | | | Procedures | [address] | [phone] | | | | | [place] NEW | [place], | Fax: | | | | | PATIENT | [place] [address] | [phone] | | | | | [place] | Phone: | | | | | | EST PATIENT | [phone] | | | | | | LEVEL V | Fax: | | | | | | | [phone] | | + +---------+ + + + + Encounter Details +--------+ + + + + | Date | Type | Department | Care Team | Description | +--------+ + + + + | 04/23/ | Video/TeleH | [facility] | Lissette Jones, | No Show | | 2020 | ealth-Sched | Clinics at S | [place] [address] | | | | uled | [facility] [address] | | | | | [facility] for | [place], [place] | | | | | Health and Healing, | [address] | | | | | [address] | [phone] | | | | | [place], [place] | | | | | | [address] | | | | | | [phone] | | | +--------+ + + + [...] encounter Progress Notes Lissette Jones MD - 04/23/2020 10:10 AM PDTFormatting of this note might be different fr om the original. The visit took place via telephone with the provider located at the distant site of [facility]. T he patient stated they were located at the originating site of home and were in the state of [place] at the time of the telephone visit. The names of all additional persons participating in the telephone visit and their roles are: patient. Time spent on the call: 19 min. The patients encounter was accomplished via a telephone call today due to COVID-19 precauti onary measures to limit the patient's unnecessary exposure. FOLLOW-UP NOTE Patient: Tila Altman Date: 04/23/2020 : 1965 AGE: 54 y.o. Attending Physician: [...] L frontal brain metastases completed 03/07/2020 Cabozantinib- 03/23/2020 Interval History Tila returns today for follow up visit. She started cabozntinib and reports ongoing fatig ue, anorexia, weight loss. Back pain is about the same. She had an MRI of brain with stable 2.7 cm lesion (see below), repeat MRI planned in 06/2020 with likely further therapy per pat ient. Impression/Plan Tila Altman is a 54 y.o. [...] lesio ns, repeat MRI in 2 months Continue cabozantinib- CT scan in 06/2020 RTC 6 weeks to check in for toxicity with cbc and cmp in interpath lab in [place] Medications: Current Outpatient Medications Medication Sig apixaban [...] Keep extra tabs on hand and call [facility] clinic with any symptoms as discussed. Indications: [...] 9.1 RDW 04/12/2020 17.9 Lissette Jones MD documented in this e ncounter Plan of Treatment +--------+---------+ + + + | Date | Type | Specialty | Care Team | Description | +--------+---------+ + + + | 06/26/ | Office | Hematology & | Lissette Jones, | | 2019 | Visit | Oncology | [address] | | | [address] | | | | | | [place] | | | | | | [address] | | | | | | [phone] | | | | | | | | +--------+---------+ + + + documented as of this encounter Visit Diagnoses + + | Diagnosis | + + | 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
--- OUTSIDE RECORDS SUMMARY | ~2020-05-06 | XMS | Encounter Summary ---
Demographics + + + | Address | [address] | | | [place] [address] | + + + | Home Phone [...] Team Providers + +------+ + | Care Rate Setter Name | Role | Phone | [...] | | | | [place] | [place] [address] | [address] | | | | | a of | [address] | | | | | malignancy | Ct | Center for | | | | | Renal cell | [facility], | [facility] and | | | | | adenocarcino | [place] | Healing, | | | | | ma (HCC) | [address] | [address] | | | | | Procedures | Phone: | [place], [place] | | | | | [place] | [phone] | [address] | | | | | PAMIDRONATE | Fax: | Phone: | | | | | DISODIUM, | [phone] | [phone] | | | | | PER 30 MG | | Fax: | | | | | [place] | | [phone] | | | | | THR/PRPH/DX | [...] + | 12/11/ | Hospital | [facility] | Onc, Gen [address] | | | 2020 | Encounter | Clinics at S | [facility] [place], | | | | | [facility] [address] | [place] [address] | | | | | [facility] | | | | | | Health and Healing, | | | | | | [address] | | | | | | [place], [place] | | | | | | [address] | | | | | | [phone] | | | +--------+ + + + [...] tablet by | 30 | 0 | // | | | mcg oral tablet | [...] in this encou nter Plan of Treatment +--------+---------+ + + + | Date | Type | Specialty | Care Team | Description | +--------+---------+ + + + | 06/26/ | Office | Hematology & | Lissette Jones, | | | 2019 | Visit | Oncology | [address] | | | | | | [address] | | | | | | [place] | | | | | | [address] | | | | | | [phone] | | | | | | | [...] | | | | | 1 dose, [facility] 12/12/19 at 1030 | | AM PDT [...] | | | | | | | [facility] 12/12/19 at 1030, Administer | | | | | | | through a low protein binding | | | | | | | 0.22 micron in-line filter., | | | | | | + +---------+ +--------+-------+---+ +---+---+ | | | +---+---+ documented in this encounter"
--- OUTSIDE RECORDS SUMMARY | ~2020-05-06 | XMS | Encounter Summary ---
Demographics + + + | Address | [address] | | | [place] [address] | + + + | Home Phone [...] Team Providers + +------+ + | Care Credit Risk Specialist Name | Role | Phone | [...] | Clinics at S | [address] | | | | | [place] [address] | [place], | | | | | [facility] | [place] [address] | | | | | Health and Healing, | [phone] | | | | | [address] | | | | | | [place], [place] | | | | | | [address] | | | | | | [phone] | | | +--------+ + + + [...] | 2019 | Visit | Oncology | [address] | | | | | | [address] | | | | | | [place] | | | | | | [address] | | | | | | [phone] | | | | | | | | +--------+---------+ + + + documented as of this encounter Visit Diagnoses Not on filedocumented in this encounter"
--- OUTSIDE RECORDS SUMMARY | ~2020-05-06 | XMS | Encounter Summary ---
Demographics + + + | Address | [address] | | | [place] [address] | + + + | Home Phone | | + + + | Preferred Language | Unknown | + + + | Marital Status | | + + + | Anabaptist Affiliation | 1013 | + + + | Race | or Other | + + + | Ethnic Group | Not or | + + + Author + + + | Author | [facility] | | | and Shahram | + + + | Organization | [facility] | | | and Marcana [...] Team Providers + +------+ + | Care Fire Range Technician Name | Role | Phone | + +------+ + PCP | Unavailable | + +------+ + Encounter Details +--------+ + + + + | Date | Type | Department | Care Team | Description | +--------+ + + + + | 04/08/ | Hospital | [facility] | | | | 2003 - | Encounter | MED CTR CANCER | | | | | | CENTER [address] | | | | 07/12/ | | [place] | | | | 2003 | | [address] | | | | | | [phone] | | | +--------+ + + + [...]
--- OUTSIDE RECORDS SUMMARY | ~2020-05-06 | XMS | Encounter Summary ---
Demographics + + + | Address | [address] | | | [place] [address] | + + + | Home Phone [...] Author + + + | Author | [facility] | | | and Shahram | + + + | Organization | [facility] | | | and Marcana [...] Team Providers + +------+ + | Care Congregational Care Pastor Name | Role | Phone | + +------+ + PCP | Unavailable | + +------+ + Encounter Details +--------+ + + + + | Date | Type | Department | Care Team | Description | +--------+ + + + + | 11/11/ | Hospital | [facility] | | | | 2007 - | Encounter | MED CTR CANCER | | | | | | CENTER [address] | | | | 12/05/ | | [place] | | | | 2007 | | [address] | | | | | | [phone] | | | +--------+ + + + [...]
--- OUTSIDE RECORDS SUMMARY | ~2020-05-06 | XMS | Encounter Summary ---
Demographics + + + | Address | [address] | | | [place] [address] | + + + | Home Phone [...] Team Providers + +------+ + | Care Metallurgy Teacher Name | Role | Phone | + +------+ + | Lissette Martinez PA-C | PCP | | + +------+ + Encounter Details +--------+ + + + + | Date | Type | Department | Care Team | Description | +--------+ + + + + | 04/17/ | MyChart | [facility] | Lissette Jones, | Rx refill | | 2019 | Encounter | Clinics at S | [place] [address] | | | | | [place] [address] | | | | | [facility] for | [place], [place] | | | | | Health and Healing, | [address] | | | | | [address] | [phone] | | | | | [facility] [place] | | | | | | [address] | | | | | | [phone] | | | +--------+ + + + [...] in vm). Requests call back to . [phone] Routing to RNC / MD (Urgent due [...] and Time Department Ordering/Authorizing 03/19/2020 5:25 PM [facility] Lissette Jones MD Outpatient Medication Detail Disp Refills oxyCODONE (immediate release) 5 mg oral tablet 120 tablet 0 Sig: Take 1 tablet by mouth every four hours as needed. Sent to pharmacy as: oxyCODONE 5 mg tablet (ROXICODONE) Class: eRx Earliest Fill Date: 03/19/2020 Route: oral Order: [id number] E-Prescribing Status: Receipt confirmed by pharmacy (03/19/2020 5:25 PM PDT) Start Date Earliest Fill Date Mar 19, 2020 Mar 19, 2020 Per [facility] policy, routing encounter to [facility] for review and approval elephone Encounter - Ariana Montes RN - 0 04/17/2020 3:49 PM PDTRouted to [facility] documented in this encounter Plan of Treatment +--------+---------+ + + + | Date | Type | Specialty | Care Team | Description | +--------+---------+ + + + | 06/26/ | Office | Hematology & | Lissette Jones, | | 2019 | Visit | Oncology | [address] [address] | | | | | [address] | | | | | | [place] | | | | | | [address] | | | | | | [phone] | | | | | | | | +--------+---------+ + + + documented as of this encounter Visit Diagnoses Not on filedocumented in this encounter"
--- OUTSIDE RECORDS SUMMARY | ~2020-05-06 | XMS | Encounter Summary ---
Demographics + + + | Address | [address] | | | [place] [address] | + + + | Home Phone [...] Providers + +------+ + | Care Open End Spinning Operator Name | Role | Phone | + +------+ + | Lissette Martinez PA-C | PCP | | + +------+ + Encounter Details +--------+ + + + + | Date | Type | Department | Care Team | Description | +--------+ + + + + | 02/22/ | Abstract | Neurosurgery at | [facility], | | | 2019 | | [facility] [address] | Neurosurgery | | | | | [facility] | | | | | | Health and Healing, | | | | | | [facility] | | | | | | [place], [place] | | | | | | [address] | | | | | | [phone] | | | +--------+ + + + [...] | 2019 | Visit | Oncology | [address] | | | | | | [address] | | | | | | [place] | | | | | | [address] | | | | | | [phone] | | | | | | | | +--------+---------+ + + + documented as of this encounter Visit Diagnoses Not on filedocumented in this encounter"
--- OUTSIDE RECORDS SUMMARY | ~2020-05-06 | XMS | Encounter Summary ---
Demographics + + + | Address | [address] | | | [place] [address] | + + + | Home Phone [...] Team Providers + +------+ + | Care Bull Chain Operator Name | Role | Phone | [...] | 2019 | | Nate Correia | [address] | | | | | [address] | | | | | [place], [place] | [place], [place] | | | | | [address] | [address] | | | | | [phone] | | | | | | | [...] | 2020 | Visit | Oncology | [address] | | | | | | [address] | | | | | | [place] | | | | | | [address] | | | | | | [phone] | | | | | | | | +--------+---------+ + + + documented as of this encounter Visit Diagnoses Not on filedocumented in this encounter"
--- OUTSIDE RECORDS SUMMARY | ~2020-05-06 | XMS | Encounter Summary ---
Demographics + + + | Address | [address] | | | [place] [address] | + + + | Home Phone [...] + + + | Author | [facility] | | | and Shahram | + + + | Organization | [facility] | | | and [...] Team Providers + +------+ + | Care Geodetic Technician Name | Role | Phone | [...] | | | [address] | [place] [address] | | | | | [place] [address] | | | | | | [phone] | | | +--------+ + + + [...] | + +--------+ + + + | XR CHEST AP PORTABLE | Routin | 08/26/2019 | | Results for this | | | e | 12:00 AM | | procedure are in the | | | | PST | | results section. | + +--------+ + + + documented in this encounter Results XR Chest AP Portable (08/26/2019 12:00 AM PST) + + | Specimen [...]
--- OUTSIDE RECORDS SUMMARY | ~2020-05-06 | XMS | Encounter Summary ---
Demographics + + + | Address | [address] | | | [place] [address] | + + + | Home Phone [...] Team Providers + +------+ + | Care Sewer Maintenance Supervisor Name | Role | Phone | [...] | | | carcinoma [place] | [place] [address] | | | | | left kidney | [place] | Center for | | | | | ([facility]) | Ct | Health and | | | | | Procedures | [place], | Healing, | | | | | CT CHEST, | [place] | Building [address], | | | | | ABDOMEN AND | [address] | 3rd Floor | | | | | PELVIS W IV | Phone: | [place], [place] | | | | | [place] | [phone] | [address] | | | | | CAT SCAN OF | Fax: | Phone: | | | | | CHEST | [phone] | [phone] | | | | | [place] | | Fax: | | | | | CT | | [phone] | | | | | ABDOMEN&PELV | [...] | Radiology | Diagnoses | Vuky, | [place] | | | | | Renal cell | [place], | [facility] & | | | | | carcinoma of | [place] [address] | [employer] | | | | | left kidney | [place] | [address] | | | | | (HCC) | Ct | [facility] | | | | | Procedures | [place], | [facility] | | | | | CT CHEST, | [place] | [place], [place] | | | | | ABDOMEN AND | [address] | [address] | | | | | PELVIS W IV | Phone: | Phone: | | | | | CONTRAST | [phone] | [phone] | | | | | | Fax: | | | | | | | [phone] | | + +--------+ + + + [...] | | | carcinoma of | [place] [address] | [address] | | | | | left kidney | [place] | Center for | | | | | ([facility]) | Ct | Health and | | | | | Procedures | [place], | Healing, | | | | | CT CHEST, | [place] | Building 1, | | | | | ABDOMEN AND | [address] | 3rd Floor | | | | | PELVIS W IV | Phone: | [place], [place] | | | | | [place] | [phone] | [address] | | | | | CAT SCAN OF | Fax: | Phone: | | | | | CHEST | [phone] | [phone] | | | | | [place] | | Fax: | | | | | CT | | [phone] | | | | | ABDOMEN&PELV | [...] | 2020 | Encounter | Lab at [facility] [address] | [address] | | | | | [facility] | [address] | | | | | Health and [facility], | [place], [place] | | | | | [place] [address], [facility] | [address] | | | | | Floor [place], [place] | [phone] | | | | | [address] | | | | | | [phone] | | | +--------+ + + + [...] | 2019 | Visit | Oncology | [address] | | | | | [address] | | | | | | [place] | | | | | | [address] | | | | | | [phone] | | | | | | | [...]
--- OUTSIDE RECORDS SUMMARY | ~2020-05-06 | XMS | Encounter Summary ---
Demographics + + + | Address | [address] | | | [place] [address] | + + + | Home Phone [...] Team Providers + +------+ + | Care Hydraulic Operator Name | Role | Phone | [...] Encounter | Clinics at S | [place] [address] [address] | Tab | | | | [facility] [address] | | | | | [facility] for | [place], [place] | | | | | Health and Healing, | [address] | | | | | [facility] 2 | [phone] | | | | | [place], [place] | | | | | | [address] | | | | | | [phone] | | | +--------+ + + + [...] her that prescription has been transferred to [facility]. Explained that once the medication [...] for it to be sent to [facility] in [place] Routing to [facility] and Rx docum ented in this encounter Plan of Treatment +--------+---------+ + + + | Date | Type | Specialty | Care Team | Description | +--------+---------+ + + + | 06/26/ | Office | Hematology & | Lissette Jones, | | | 2020 | Visit | Oncology | [address] | | | | | | [address] | | | | | | [place] | | | | | | [address] | | | | | | [phone] | | | | | | | | +--------+---------+ + + + documented as of this encounter Visit Diagnoses Not on filedocumented in this encounter"
--- OUTSIDE RECORDS SUMMARY | ~2020-05-06 | XMS | Encounter Summary ---
Demographics + + + | Address | [address] | | | [place] [address] | + + + | Home Phone [...] Team Providers + +------+ + | Care Therapist Respiratory Name | Role | Phone | + +------+ + | Lissette Martinez PA-C | PCP | | + +------+ + Encounter Details +--------+ + + + + | Date | Type | Department | Care Team | Description | +--------+ + + + + | 02/23/ | MyChart | Diagnostic Imaging | | MRI Screening Form | | 2020 | Encounter | Services [address] | | | | | | [address] | | | | | | [place], [place] | | | | | | [address] | | | +--------+ + + + [...] | 2019 | Visit | Oncology | [address] | | | | | | [address] | | | | | | [place] | | | | | | [address] | | | | | | [phone] | | | | | | | | +--------+---------+ + + + documented as of this encounter Visit Diagnoses Not on filedocumented in this encounter"
--- OUTSIDE RECORDS SUMMARY | ~2020-05-06 | XMS | Encounter Summary ---
Demographics + + + | Address | [address] | | | [place] [address] | + + + | Home Phone [...] Team Providers + +------+ + | Care Treasury Specialist Name | Role | Phone | + +------+ + | Lissette Martinez PA-C | PCP | | + +------+ + Reason for Visit + +--------+ + | Reason | Onset | Comments | | | Date | | + +--------+ + | Care Coordination | 12/12/ | | | | 2020 | | + +--------+ + | Refill Request | 12/19/ | | | | 2020 | | + +--------+ + Encounter Details +--------+--------+ + + + | Date | Type | Department | Care Team | Description | +--------+--------+ + + + | 12/12/ | Refill | [facility] | Holly Jonesline, | Care Coordination; | | 2019 | | Clinics at S | [place] [address] [address] | Refill Request | | | | [place] [address] | [address] | | | | | [facility] | [place], [place] | | | | | Health and Healing, | [address] | | | | | [facility] 2 | [phone] | | | | | [place], [place] | | | | | | [address] | | | | | | [phone] | | | +--------+--------+ + + + [...] Telephone Encounter - Giovanna Tomas RN - 12/20/2019 1:00 PM PDTPharmacy and Karen's last off ice visit note confirm pt will receive Nivolumab every 28 days. Pt is currently scheduled fo r next treatment on 01/01, which is a week too early. Will change appt to reflect [facility] plan changes. ddendum Note - Ellie Johns MA - 12/14/2019 12:16 PM PDT Addended by: ELLIE JOHNS MA on: 12/14/2019 12:16 PM Modules accepted: Orders elephone Encounter - Ellie Johns MA - 12/14/2019 12:11 PM PDTCalled [facility] confirmed they did not r eceived the Rx for oxyCODONE (immediate release) 5 mg oral tablet. cholecalciferol 50,000 unit oral capsule was received by the [facility]. I will Pend both Rx to be sent to [facility] pharmacy. elephone Encounter - Jessica Paiz - 12/14/2019 9:25 AM PDTP atient calling in w/ questions re her recent Rx and where they were sent. Patient req if sen t to [employer] to transfer to [facility][id number] - [place], [place] - [address] [phone] Patient very agreeable to call back PAS confirmed call back ph# [phone] Routing to [facility] elephone Enc Giovanna Huertas RN - 12/13/2019 3:[address] Jones -- pt switching to Nivolumab single agent every 4 weeks. [facility] to f/u with scheduling once Nivolumab has been authorized by managed care. documented in this encounter Plan of Treatment +--------+---------+ + + + | Date | Type | Specialty | Care Team | Description | +--------+---------+ + + + | 06/26/ | Office | Hematology & | Lissette Jones, | | 2019 | Visit | Oncology | [address] | | | | | | [address] | | | | | | [place] | | | | | | [address] | | | | | | [phone] | | | | | | | | +--------+---------+ + + + documented as of this encounter Visit Diagnoses Not on filedocumented in this encounter"
--- OUTSIDE RECORDS SUMMARY | ~2020-05-06 | XMS | Encounter Summary ---
Demographics + + + | Address | [address] | | | [place] [address] | + + + | Home Phone [...] Team Providers + +------+ + | Care Metal Painter Name | Role | Phone | [...] | 2019 | Visit | Oncology | [address] | | | | | | [address] | | | | | | [place] | | | | | | [address] | | | | | | [phone] | | | | | | | | +--------+---------+ + + + documented as of this encounter Visit Diagnoses Not on filedocumented in this encounter"
--- OUTSIDE RECORDS SUMMARY | ~2020-05-06 | XMS | Encounter Summary ---
Demographics + + + | Address | [address] | | | [place] [address] | + + + | Home Phone [...] Providers + +------+ + | Care Paper Slitter Name | Role | Phone | + +------+ + | Lissette Martinez PA-C | PCP | | + +------+ + Encounter Details +--------+ + + + + | Date | Type | Department | Care Team | Description | +--------+ + + + + | 03/16/ | Pharmacy | Pharmacy @ [facility] | | | | 2020 | Visit | [address] | | | | | | [address] Frank Mailcode: | | | | | | [facility] | | | | | | and Healing, | | | | | | [address] | | | | | | [place], [place] | | | | | | [address] | | | +--------+ + + + [...] | 2019 | Visit | Oncology | [address] | | | | | | [address] | | | | | | [place] | | | | | | [address] | | | | | | [phone] | | | | | | | | +--------+---------+ + + + documented as of this encounter Visit Diagnoses Not on filedocumented in this encounter"
--- OUTSIDE RECORDS SUMMARY | ~2020-05-06 | XMS | Encounter Summary ---
Demographics + + + | Address | [address] | | | [place] [address] | + + + | Home Phone [...] Team Providers + +------+ + | Care Aircraft Dispatcher Name | Role | Phone | + +------+ + | Lissette Martinez PA-C | PCP | | + +------+ + Encounter Details +--------+ + + + + | Date | Type | Department | Care Team | Description | +--------+ + + + + | 10/29/ | Purchasing Contracting Clerk | [facility] | Lissette Jones, | | | 2019 | | Clinics at S | [place] [address] | | | | | [place] [address] | | | | | [facility] for | [place], [place] | | | | | Health and Healing, | [address] | | | | | [address] | [phone] | | | | | [place], [place] | | | | | | [address] | | | | | | [phone] | | | +--------+ + + + [...] | 2019 | Visit | Oncology | [address] | | | | | [address] | | | | | | [facility] [place] | | | | | | [address] | | | | | | [phone] | | | | | | | | +--------+---------+ + + + documented as of this encounter Visit Diagnoses Not on filedocumented in this encounter"
--- OUTSIDE RECORDS SUMMARY | ~2020-05-06 | XMS | Encounter Summary ---
Demographics + + + | Address | [address] | | | [place] [address] | + + + | Home Phone [...] Team Providers + +------+ + | Care Electronics Warfare Technician Name | Role | Phone | [...] + + | 08/24/ | Hospital | [facility] | Onc, Gen [address] | | | 2019 | Encounter | Clinics at S | [facility], | | | | | [facility] [address] | [place] [address] | | | | | [facility] for | | | | | | Health and Healing, | | | | | | Building [address] | | | | | | [place], [place] | | | | | | [address] | | | | | | [phone] | | | +--------+ + + + [...] and left in place. Pt Alert & Dundas ed x3, No acute distress and Mood [...] PSTdocumented in this encounter Plan of Treatment +--------+---------+ + + + | Date | Type | Specialty | Care Team | Description | +--------+---------+ + + + | 06/26/ | Office | Hematology & | Lissette Jones, | | | 2019 | Visit | Oncology | [address] [address] | | | | [address] | | | | | | [facility] [place] | | | | | | [address] | | | | | | [phone] | | | | | | | [...] chloride (NS) 0.9 % IV | | 19 3:16 | | mL/hr [...]
--- OUTSIDE RECORDS SUMMARY | ~2020-05-06 | XMS | Encounter Summary ---
Demographics + + + | Address | [address] | | | [place] [address] | + + + | Home Phone [...] Providers + +------+ + | Care Dairy Husbandry Worker Name | Role | Phone | [...] | | Clinics at S | [place] [address] [address] | | | | | [place] [address] | [address] | | | | | [facility] | [place], [place] | | | | | Health and Healing, | [address] | | | | | [address] | [phone] | | | | | [place], [place] | | | | | | [address] | | | | | | [phone] | | | +--------+ + + + [...] - Ammy White - 09/16/2019 11:21 AM PSTc alled Tila to confirm her appointment on Thursday09/19/19 and she stated when she checked o ut she asked about rx mentioned at her appointment but no one has contacted her. Tila stat ed Dr Jones mentioned she was going to prescribe a one time medication to reduce her potassiu m level prior to this Thursday appointment and it would be called into [facility] She asked at check out to be contacted regarding this but has not been contacted regarding this and no rx as of yet Please confirm this information and contact Tila [phone] with whether or not this is true documented in this encounter Plan of Treatment +--------+---------+ + + + | Date | Type | Specialty | Care Team | Description | +--------+---------+ + + + | 06/26/ | Office | Hematology & | iLssette Jones, | | 2019 | Visit | Oncology | [address] | | | | | [address] | | | | | | [facility] [place] | | | | | | [address] | | | | | | [phone] | | | | | | | | +--------+---------+ + + + documented as of this encounter Visit Diagnoses Not on filedocumented in this encounter"
--- OUTSIDE RECORDS SUMMARY | ~2020-05-06 | XMS | Encounter Summary ---
Demographics + + + | Address | [address] | | | [place] [address] | + + + | Home Phone [...] Author + + + | Author | [facility] | | | and Shahram | + + + | Organization | [facility] | | | and Marcana [...] Team Providers + +------+ + | Care Plastic And Reconstructive Surgeon Name | Role | Phone | + [...] | | | [address] | [place] [address] | | | | | [place] [address] | | | | | | [phone] | | | +--------+ + + + [...]
--- OUTSIDE RECORDS SUMMARY | ~2020-05-06 | XMS | Encounter Summary ---
Demographics + + + | Address | [address] | | | [place] [address] | + + + | Home Phone [...] Providers + +------+ + | Care Engineer Station Mainline Name | Role | Phone | + [...] 2019 | on | Nate Correia | [address] | | | | | [address] | | | | | [place], [place] | [facility] [place] | | | | | [address] | [address] | | | | | [phone] | [phone] | | | | | | | [...] | 2020 | Visit | Oncology | [address] | | | | | | [address] | | | | | | [place] | | | | | | [address] | | | | | | [phone] | | | | | | | [...]
--- OUTSIDE RECORDS SUMMARY | ~2020-05-06 | XMS | Encounter Summary ---
Demographics + + + | Address | [address] | | | [place] [address] | + + + | Home Phone [...] + + + | Author | [facility] | | | and Shahram | + + + | Organization | [facility] | | | and [...] Team Providers + +------+ + | Care Yarn Handler Name | Role | Phone | + [...] | | | [address] | [place] [address] | | | | | [place] [address] | | | | | | [phone] | | | +--------+ + + + [...]
--- OUTSIDE RECORDS SUMMARY | ~2020-05-06 | XMS | Clinical Summary ---
Demographics + + + | Address | [address] | | | [place] [address] | + + + | Home Phone [...] + + + | Author | [facility] | | | and Shahram | + + + | Organization | [facility] [...] Team Providers + +------+ + | Care Website Designer Name | Role | Phone | [...] +--------+ +---------+------+ | GEHA | GEHA | [id number] | | [phone] | | PPO | [...] | | al/Fam | | 1965 | [phone] | [place] [address] | | | corby | | | 4 (Home) | | + +--------+ +--------+ + + | Tila Altman | Person | Self | [birth year] | [address] | | | al/Fam | | 1965 | [phone] | [place] [address] | | | corby | | | 4 (Home) | | + +--------+ +--------+ + + Advance Directives + + + + + | Type | Date Recorded | Patient | Explanation | | | | Advertising Dispatch Clerk | | + + + + + | Power of | | | | | Job Developer | | | | + + + + + | Advance | 12/13/2019 1:01 | | | | Directive | PM | | | + + + + +
--- OUTSIDE RECORDS SUMMARY | ~2020-05-06 | XMS | Encounter Summary ---
Demographics + + + | Address | [address] | | | [place] [address] | + + + | Home Phone [...] Team Providers + +------+ + | Care Storage Architect Name | Role | Phone | [...] + + | 12/28/ | Telephone | [facility] Primary Care | Yeni, | faxed communication | | 2020 | | at [facility] | [address] | ([facility]) | | | | [address] | [address] [facility] | | | | | Loop Physician's | [address] [facility] [place] | | | | | [place], 3rd floor | [address] | | | | | [place], [place] | [phone] | | | | | [address] | | | | | | [phone] | | | +--------+ + + + [...] AM PDTUploaded Prescriber Respons e form into [employer] tab as a PDF to be filled then faxed. documented in this encounter Plan of Treatment +--------+---------+ + + + | Date | Type | Specialty | Care Team | Description | +--------+---------+ + + + | 06/26/ | Office | Hematology & | Vuky, Lissette, | | | 2020 | Visit | Oncology | [address] | | | | | | [address] | | | | | | [place] | | | | | | [address] | | | | | | [phone] | | | | | | | | +--------+---------+ + + + documented as of this encounter Visit Diagnoses Not on filedocumented in this encounter"
--- OUTSIDE RECORDS SUMMARY | ~2020-05-06 | XMS | Encounter Summary ---
Demographics + + + | Address | [address] | | | [place] [address] | + + + | Home Phone [...] Team Providers + +------+ + | Care Advertising Campaign Manager Name | Role | Phone | [...] | 2019 | Visit | Oncology | [address] | | | | | | [address] | | | | | | [place] | | | | | | [address] | | | | | | [phone] | | | | | | | | +--------+---------+ + + + documented as of this encounter Visit Diagnoses Not on filedocumented in this encounter"
--- OUTSIDE RECORDS SUMMARY | ~2020-05-06 | XMS | Encounter Summary ---
Demographics + + + | Address | [address] | | | [place] [address] | + + + | Home Phone [...] Author + + + | Author | [facility] | + + + | Organization | [facility] | + + + | Address | Unknown | + + + | Phone | Unavailable | + + + Support + + +---------+ + | Name | Relationship | Address | Phone | + + +---------+ + | William Talavera | ECON | Unknown | | + + +---------+ + Care Team Providers + +------+ + | Care Milk Powder Grinder Name | Role | Phone | + [...] | neoplasm of | RADHA Curran | [address] | | | | | unspecified | [place] | [address] | | | | | kidney, | Family | [place], | | | | | except renal | Medicine | [place] [address] | | | | | pelvis | [address] | Phone: | | | | | Procedures | [address] | [phone] | | | | | [place] NEW | [place], | Fax: | | | | | PATIENT | [place] [address] | [phone] | | | | | LEVEL V [place] | Phone: | | | | | | EST PATIENT | [phone] | | | | | | LEVEL V | Fax: | | | | | | | [phone] | | + +---------+ + + + + Encounter Details +--------+---------+ + + + | Date | Type | Department | Care Team | Description | +--------+---------+ + + + | 09/12/ | Office | [facility] | Lissette Jones, | Renal cell carcinoma | | 2020 | Visit | Clinics at S | [place] [address] [address] | of left kidney | | | | [place] [address] | (HCC) (Primary Dx) | | | | [facility] for | [place], [place] | | | | | Health and Healing, | [address] | | | | | [address] | [phone] | | | | | [place], [place] | | | | | | [address] | | | | | | [phone] | | | +--------+---------+ + + + [...] CREATININE PLASMA (LAB) 09/12/2019 1.31* EGFR - PUERTO RICAN 09/12/2019 51* EGFR NON -PUERTO RICAN 09/12/2019 42* SODIUM, PLASMA (LAB) 09/12/2019 138 [...] | 2019 | Visit | Oncology | [address] [address] | | | | [address] | | | | | | [place] | | | | | | [address] | | | | | | [phone] | | | | | | | | +--------+---------+ + + + documented as of this encounter Results ADRIANA SANTIAGO ONLY (09/12/2019 [...] clinically indicated. | SERVICES, | | | [facility] | | | HEALTH + | | | HEALING | + + + + + + + + | Performing | Address | City/State/Zipcode | Phone Number | | Organization | | | | + + + + + | [facility] | [address] | [place] [address] | | | SERVICES, [facility] | | | | [...] | + + + + + | [facility] | [address] | [place] [address] | | | [facility] | | | | | HEALTH [...] | | | LABORATORY | | | PUERTO RICAN | | | SERVICES, | | [...] MDRD equation recommended by the National | [facility] | | Kidney Disease Education Program. Estimated [...] | + + + + + | Boundary | [address] | [place] [address] | | | [facility] | | | | | HEALTH + HEALING | | | | + + + + + documented in this encounter Visit Diagnoses + + | Diagnosis | + + | 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) - Primary | + + documented in this encounter
--- OUTSIDE RECORDS SUMMARY | ~2020-05-06 | XMS | Encounter Summary ---
Demographics + + + | Address | [address] | | | [place] [address] | + + + | Home Phone [...] + | Author | [facility] | | | and Shahram | + + + | Organization | [facility] | [...] Providers + +------+ + | Care Machine Applicator Cementer Name | Role | Phone | + +------+ + PCP | Unavailable | + +------+ + Encounter Details +--------+ + + + + | Date | Type | Department | Care Team | Description | +--------+ + + + + | 11/06/ | Hospital | [facility] | | | | 2005 - | Encounter | MED CTR GENERIC OP | | | | | | CONV DEPT [address] | | | | 12/05/ | | [place], | | | | 2005 | | [place] [address] | | | | | | [phone] | | | +--------+ + + + [...]
--- OUTSIDE RECORDS SUMMARY | ~2020-05-06 | XMS | Encounter Summary ---
Demographics + + + | Address | [address] | | | [place] [address] | + + + | Home Phone [...] | Author | [facility] | | | and Shahram | + + + | Organization | [facility] | | [...] Team Providers + +------+ + | Care Orchestrator Name | Role | Phone | + [...] | | | [address] | [place] [address] | | | | | [place] [address] | | | | | | [phone] | | | +--------+ + + + [...]
--- OUTSIDE RECORDS SUMMARY | ~2020-05-06 | XMS | Encounter Summary ---
Demographics + + + | Address | [address] | | | [place] [address] | + + + | Home Phone [...] Providers + +------+ + | Care Practice Architect Name | Role | Phone | [...] | 2019 | Encounter | Lab at [facility] [address] | [place] [address] [address] | | | | | [facility] for | [address] | | | | | Health and [facility], | [place], [place] | | | | | [address] | [address] | | | | | Floor [place], [place] | [phone] | | | | | [address] | | | | | | [phone] | | | +--------+ + + + [...] | 2020 | Visit | Oncology | [address] | | | | | | [address] | | | | | | [place] | | | | | | [address] | | | | | | [phone] | | | | | | | [...] the report as now presented. Final signature: Mel Butt | 11/21/2019 1:12 PM Preliminary: Melissa Jasso MD Dictation initiated: Melissa Jasso MD 11/21/2019 11:17 AM | |1. 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
--- OUTSIDE RECORDS SUMMARY | ~2020-05-06 | XMS | Encounter Summary ---
Demographics + + + | Address | [address] | | | [place] [address] | + + + | Home Phone [...] | + + +---------+ + | William Tlaavera | ECON | Unknown | | + + +---------+ + Care Team Providers + +------+ + | Care Radio Talk Show Host Name | Role | Phone | + [...] | | Clinics at S | [place] [address] [address] | | | | | [place] [address] | | | | | [facility] for | [place], [place] | | | | | Health and [facility], | [address] | | | | | [facility] 2 | [phone] | | | | | [place], [place] | | | | | | [address] | | | | | | [phone] | | | +--------+ + + + [...] PST Addended by: GIOVANNA TOMAS RN on: 1 10/24/2018 05:20 PM Modules accepted: Orders elephone Encounter - Giovanna Oglesby RN - 08/23/2019 5:09 PM PSTDr. Jones noted elevated serum calcium. She would lik e pt to have another liter of NS and pamidronate tomorrow. Hydration orders placed in infusi on plan and Dr. Jones will enter pamidronate and request urgent authorization this evening. Routed to schedulers to add pt on to infusion tomorrow. elephone Encounter - Giovanna Tomas RN - 08/23/2019 12:59 PM P Shanna Jones, call from lab with critical CMP results. requests pt be added on for 1 L hydration and CMP recheck post hydration. Pt scheduled [...] | 2019 | Visit | Oncology | [address] [address] | | | | | [address] | | | | | | [place] | | | | | | [address] | | | | | | [phone] | | | | | | | | +--------+---------+ + + + documented as of this encounter Visit Diagnoses Not on filedocumented in this encounter"
--- OUTSIDE RECORDS SUMMARY | ~2020-05-06 | XMS | Encounter Summary ---
Demographics + + + | Address | [address] | | | [place] [address] | + + + | Home Phone [...] + | Author | [facility] | | | and Shahram | + + + | Organization | [facility] | | | and [...] Team Providers + +------+ + | Care Wireworker Name | Role | Phone | + +------+ + PCP | Unavailable | + +------+ + Encounter Details +--------+ + + + + | Date | Type | Department | Care Team | Description | +--------+ + + + + | 10/23/ | Hospital | [facility] | | | | 2006 - | Encounter | [facility] CAN[facility] | | | | | | CENTER [address] | | | | 11/04/ | | [place] | | | | 2006 | | [address] | | | | | | [phone] | | | +--------+ + + + [...]
--- OUTSIDE RECORDS SUMMARY | ~2020-05-06 | XMS | Encounter Summary ---
Demographics + + + | Address | [address] | | | [place] [address] | + + + | Home Phone [...] Providers + +------+ + | Care Machine Adjuster Leader Case Trim Name | Role | Phone | + [...] [address] | | | | | [address] [place] | [facility] | | | | | [place], 4th floor | [place], [place] | | | | | [place], [place] | [address] | | | | | [address] | [phone] | | | | | [phone] | | | +--------+ + + + [...] | 2019 | Visit | Oncology | [address] | | | | | | [address] | | | | | | [place] | | | | | | [address] | | | | | | [phone] | | | | | | | | +--------+---------+ + + + documented as of this encounter Visit Diagnoses Not on filedocumented in this encounter"
--- OUTSIDE RECORDS SUMMARY | ~2020-05-06 | XMS | Encounter Summary ---
Demographics + + + | Address | [address] | | | [place] [address] | + + + | Home Phone | | + + + | Preferred Language | Unknown | + + + | Marital Status | | + + + | Tenriism Affiliation | 1013 | + + + | Race | or Other | + + + | Ethnic Group | Not or | + + + Author + + + | Author | [facility] | | | and Shahram | + + + | Organization | [facility] | | | and [...] Team Providers + +------+ + | Care Family Resource Coordinator Name | Role | Phone | [...] + + + + | 12/21/ | Hospital | [facility] | Aileen Denson | Secondary cancer of | | 2020 | Encounter | MED CTR RADIATION | [place] [address] | bone (HCC) (Primary | | | | ONCOLOGY CLINIC [address] | [facility] [place] | Dx) | | | | [address] | [address] | | | | | [place] [address] | | | | | | [phone] | | | +--------+ + + + [...] + + + | Blood Pressure | 112/61 | 12/22/2019 11:24 AM | | | | | PDT | | + + + + + | Pulse | 98 | 12/22/2019 11:24 AM | | | | | PDT | | + + + + + | Temperature | 36.2 C (97.2 F) | 12/22/2019 11:24 AM | | | | | PDT | | + + + + + | Respiratory Rate | 16 | 12/22/2019 11:24 AM | | | | | PDT | | + + + + + | Oxygen Saturation | 100% | 12/22/2019 11:24 AM | | | | | PDT | | + + + + + | Inhaled Oxygen | - | - | | | Concentration | | | | + + + + + | Weight | 93.2 kg (205 lb 7.5 | 12/22/2019 11:24 AM | | | | oz) | PDT | | + + + + + | Height | - | - | | + + + + + | Body Mass Index | 37.58 | 12/07/2019 12:51 PM | | | [...] encounter Progress Notes Aileen Denson MD - 12/22/2019 10:45 AM PDT Radiation Oncology Weekly On Treatment Note Diagnosis: ICD-10-CM ICD-9-CM 1. 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 scopolamine (TRANSDERM-SCOP) 1 mg/3 days patch No current facility-administered medications on file prior to encounter. Wt Readings from Last 3 Encounters: 12/22/19 93.2 kg (205 lb 7.5 oz) 12/07/19 93.1 kg (205 lb 4 oz) Vitals: 12/22/19 1124 BP: 112/61 Pulse: 98 Resp: 16 Temp: 36.2 C (97.2 F) SpO2: 100% Weight: 93.2 kg (205 lb 7.5 oz) Physical Exam Constitutional: She appears well-developed and well-nourished. Neurological: She is alert. Skin: No rash noted. No erythema. Psychiatric: She has a normal mood and affect. Nurse Assessment and Toxicity Grading: Toxicity Flowsheet 12/22/2019 Diarrhea 0 - Grade 0 Nausea 0 - Grade 0 Vomiting 0 - Grade 0 Fatigue 2 - Grade 2 Anorexia 1 - Grade 1 Karnofsky Performance Score 70% Physician Assessment: 12/22/2019: Tila started radiation this week. Already notes some pain improvement. Moder ate fatigue, mild nausea and low appetite. She declined antiemetic, we discussed eating sma ll meals frequently to settle her stomach. Disposition: Continue radiation treatment as planned. Aileen Denson MD Radiation Oncologist REEWellTalya hernandez R N - 12/22/2019 10:45 AM PDTMet with patient today for nurse education. Verbal and written ed ucation given to patient regarding general radiation therapy side effects as well as site sp ecific side effects. Reviewed process of OT day for their doctor, all questions at this ti me were answered. documented in this en counter Plan of Treatment Not on filedocumented as of this encounter Visit Diagnoses + + | Diagnosis | + + | Secondary cancer of bone (HCC) - Primary Secondary malignant neoplasm of bone and | | bone marrow | + + documented in this encounter"
--- OUTSIDE RECORDS SUMMARY | ~2020-05-06 | XMS | Encounter Summary ---
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 | [place] | [address] | | | | | (HCC) | Ct | [place] [place]ILL[place] | | | | | Procedures | [facility], | ROAD | | | | | CT CHEST, | [place] | [place], [place] | | | | | ABDOMEN AND | [address] | [address] | | | | | PELVIS W IV | Phone: | Phone: | | | | | CONTRAST | [phone] | [phone] | | | | | | Fax: | | | | | | | [phone] | | + +--------+ + + + [...] neoplasm of | E, PA-C | [place] [address] [address] | | | | | unspecified | [place] | [address] | | | | | kidney, | Family | [place], | | | | | except renal | Medicine | [place] [address] | | | | | pelvis | [address] | Phone: | | | | | Procedures | Pepe Frank | [phone] | | | | | ID NEW | Tim, | Fax: | | | | | PATIENT | [place] [address] | [phone] | | | | | LEVEL V ID | Phone: | | | | | | EST PATIENT | [phone] | | | | | | LEVEL V | Fax: | | | | | | | [phone] | | + +---------+ + + + + Encounter Details +--------+ + + + + | Date | Type | Department | Care Team | Description | +--------+ + + + + | 01/08/ | Telephone-S | [facility] | Lissette Jones, | | | 2019 | gregorduled | Clinics at S | [place] [address] [address] | | | | | [place] [address] | | | | | [facility] for | [place], [place] | | | | | Health and Healing, | [address] | | | | | [facility] 2 | [phone] | | | | | [place], [place] | | | | | | [address] | | | | | | [phone] | | | +--------+ + + + [...] | 2019 | Visit | Oncology | [address] | | | | | | [address] | | | | | | [place] | | | | | | [address] | | | | | | [phone] | | | | | | | [...] necessary, edited the report. I agree with [facility] report as now presented. | | | [...]
--- OUTSIDE RECORDS SUMMARY | ~2020-05-06 | XMS | Encounter Summary ---
Demographics + + + | Address | [address] | | | [place] [address] | + + + | Home Phone [...] Team Providers + +------+ + | Care Lobsterman Name | Role | Phone | + +------+ + | Lissette Martinez PA-C | PCP | | + +------+ + Encounter Details +--------+ + + + + | Date | Type | Department | Care Team | Description | +--------+ + + + + | 08/09/ | Mattress Filler | [facility] | Ash Cavazos MD | Renal mass (Primary | | 2019 | | Clinics at S | [address] | Dx) | | | | [place] [address] | [place], | | | | | [facility] | [place] [address] | | | | | Health and Healing, | [phone] | | | | | Building [address] | | | | | | [place], [place] | | | | | | [address] | | | | | | [phone] | | | +--------+ + + + [...] | 2019 | Visit | Oncology | [address] | | | | | | [address] | | | | | | [place] | | | | | | [address] | | | | | | [phone] | | | | | | | | +--------+---------+ + + + documented as of this encounter Visit Diagnoses + + | Diagnosis | + + | Renal mass - Primary Unspecified disorder of kidney and ureter | + + documented in this encounter"
--- OUTSIDE RECORDS SUMMARY | ~2020-05-06 | XMS | Encounter Summary ---
Demographics + + + | Address | [address] | | | [place] [address] | + + + | Home Phone [...] + +------+ + | Care Director Of Land Acquisition Name | Role | Phone | + +------+ + | Lissette Martinez PA-C | PCP | | + +------+ + Encounter Details +--------+ + + + + | Date | Type | Department | Care Team | Description | +--------+ + + + + | 08/30/ | Procedure | Diagnostic Imaging | | | | 2018 | Pass | Services at [facility] | | | | | | [address] | | | | | | [place] | | | | | | [facility] | | | | | | [place], [place] | | | | | | [address] | | | | | | [phone] | | | +--------+ + + + [...] | 2020 | Visit | Oncology | [address] | | | | | [address] | | | | | | [place] | | | | | | [address] | | | | | | [phone] | | | | | | | | +--------+---------+ + + + documented as of this encounter Visit Diagnoses Not [facility]"
--- OUTSIDE RECORDS SUMMARY | ~2020-05-06 | XMS | Encounter Summary ---
Demographics + + + | Address | [address] | | | [place] [address] | + + + | Home Phone [...] Team Providers + +------+ + | Care Coffee Weigher Name | Role | Phone | + [...] (work leave letter) | | | | [address] [place] | [facility] | | | | | [place], 4th floor | [place], [place] | | | | | [place], [place] | [address] | | | | | [address] | [phone] | | | | | [phone] | | | +--------+ + + + [...] - 02/29/2020 1:25 PM PDTRevised work leave victoriae r from 02/29/2020 has been signed and faxed to at [facility] dwain Berry. . Received confirmation that fax went through. Will leave copy at RN desk and java front end web developer in an envelope for patient to cook pickled meat on first day of radiation treatment, 03/06/2020. [...] | 2019 | Visit | Oncology | [address] | | | | | [address] | | | | | | [place] | | | | | | [address] | | | | | | [phone] | | | | | | | | +--------+---------+ + + + documented as of this encounter Visit Diagnoses Not on filedocumented in this encounter"
--- OUTSIDE RECORDS SUMMARY | ~2020-05-06 | XMS | Encounter Summary ---
Demographics + + + | Address | [address] | | | [place] [address] | + + + | Home Phone [...] Author + + + | Author | [facility] | + + + | Organization | [facility] | + + + | Address | Unknown | + + + | Phone | Unavailable | + + + Support + + +---------+ + | Name | Relationship | Address | Phone | + + +---------+ + | William Talavera | ECON | Unknown | | + + +---------+ + Care Team Providers + +------+ + | Care Supervisory Training Specialist Name | Role | Phone | [...] + + + | Closed | | | Diagnoses | Mel Prescott | | | | | Closed | REDD Marques | KIRAN BOWENS | | | | | compression | [address] | [address] | | | | | fracture of | Roshan Frederick | [place] | | | | | L2 lumbar | [address]igna Rebolledo | Antonio Coreas | | | | | vertebra, | [place], [place] | [place], [place] | | | | | initial | [address] | [address] Phone: | | | | | encounter | Phone: | [phone] | | | | | ([facility]) Renal | [phone] | | | | | | cell | Fax: | | | | | | carcinoma of | [phone] | | | | | | left kidney | | | | | | | (HCC) | | | | | | | Procedures | | | | | | | CONSULT TO | | | | | | | RADIATION | | | | | | | ONCOLOGY | | | +--------+--------+ + + + + Reason for Visit + + + | Reason | Comments | + + + | Hyperkalemia | | + + + AUTH/CERT +--------+--------+ [...] + + | 08/24/ | Hospital | [address] | Aleksey Sanchez, | | | 2019 - | Encounter | [facility] | [address] | | | | | [address] [place] [address] | [facility] | | | 09/01/ | | [place], [place] | [place], [place] | | | 2018 | | [address] | [address] | | | | | [phone] | [phone] | | | | | | | | | | | | Charlie Graham, | | | | | | [address] | | | | | | [facility] | | | | | | [place], [place] | | | | | | [address] | | | | | | [phone] | | | | | | | | | | | | Yunier Velez MD | | | | | | [address] | | | | | | Digna Rebolledo [place], | | | | | | [place] [address] | | | | | | [phone] | | | | | | | | | | | | Madhav Ghotra MD | | | | | | [address] | | | | | | Digna Rebolledo [place], | | | | | | [place] [address] | | | | | | [phone] | | | | | | | | | | | | Celeste Cerda MD | | | | | | [address] [facility] | | | | | | [facility] | | | | | | [place], [place] | | | | | | [address] | | | | | | [phone] | | | | | | | | | | | | Najma Bryant MD | | | | | | [address] [facility] | | | | | | [facility], | | | | | | [place] [address] | | | | | | [phone] | | | | | | | [...] + + + | Blood Pressure | 119/59 | 09/01/2019 12:42 PM | | | | | PST | | + + + + + | Pulse | 95 | 09/01/2019 12:42 PM | | | | | PST | | + + + + + | Temperature | 36.4 C (97.5 F) | 09/01/2019 12:42 PM | | | | | PST | | + + + + + | Respiratory Rate | 18 | 09/01/2019 12:42 PM | | | | | PST | | + + + + + | Oxygen Saturation | 100% | 09/01/2019 12:42 PM | | | | | PST | | + + + + + | Inhaled Oxygen | - | - | | | Concentration | | | | + + + + + | Weight | 98.7 kg (217 lb 8 | 08/28/2019 12:14 AM | | | | oz) | PST | | + + + + + | Height | 157.5 cm (5' 2") | 08/28/2019 12:14 AM | | | | | PST | | + + + + + | Body Mass Index | 39.78 | 08/28/2019 12:14 AM | | | [...] + documented as of this encounter Discharge Summaries Kylie Sexton PA - 08/31/2019 2:42 PM PST CLINICAL HOSPITALIST DISCHARGE SUMMARY Discharging Provider: Kylie Sexton PA-C Attending Physician: Blake Bryant MD PCP: Lissette Milner PA-C Admission Date: 08/24/2019 Discharge Date: 09/01/2019 Discharge Destination: Home Hospital Stay: 7 day(s) Principal Final Diagnosis: 1) *Hypercalcemia of malignancy [place] Diagnoses: 2) Hypotension 3) Renal cell adenocarcinoma (HCC) 4) Hyperkalemia 5) Hypothyroidism 6) Compression fracture of L2 vertebra (HCC) 7) Closed compression fracture of L2 lumbar vertebra, initial encounter (HCC) 8) 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) 9) Proteinuria 10) Hematuria 11) JONO (acute kidney injury) (HCC) 12) Elevated blood uric acid level 13) Normocytic anemia 14) Leukopenia Procedures: 08/29 L2 Kyphoplasty Consultants (service/attending name): Oncology / Leah Brito MD / Richard Puga MD Endocrinology / Farrukh Hall MD / Tg Lacy MD Neurointerventional Radiology / America Clemens MD Reason for Admission: Hank Altman is a 54 y/o F h/o Hodgkin's lymphoma s/p CHOP and XRT, hypothyroidism, rece ntly diagnosed metastatic RCC, initially admitted for hypotension, hypercalcemia and hyperka lemia, transferred to MICU on 08/26 for hypotension requiring pressor support and stress dos e steroids. Eventually stabilized on midodrine and transferred back to the floor where she w as treated for electrolyte derangements, suspected TLS and received a L2 kyphoplasty for steph n 2/2 malignant compression fracture. Hospital Course by Problem (with follow-up plan/instructions): Hypotension Present on admission, transferred to MICU on 08/26 for continued hypotension refractory to IVF. TTE in MICU with normal LV, mildly enlarged RV cavity, RVSP 75.9mmHg, mild AR, mild-mod TR. BP improved with pressor support and stress dose steroids in MICU,bothweaned off th ough continues midodrine. Etiology of hypotension remains unknown. Leading thought was 2/2 h ome ACEi and BB with poor clearance in s/o JONO though would have expected to see improvement over time. She remained dependent on midodrine upon discharge. Considered PE in s/o elevate d RSVP though RA hypertrophy suggests a more chronic picture. BLE venous dopplers normal. Ad mission EKG with S1Q3T3 pattern. Possible she has chronic submassive PE but this can't fully explain her persistent hypotension. No associated hypoxia, tachycardia, or chest pain. Unab le to obtain CTA due to JONO. Queried if she had spinal mets causing cervical cord compressio n and autonomic dysfunction (had minimal sympathetic response with orthostatics), though no neuro deficits or complaints of neck pain. Combination of hyperK and hypotension prompted w/ up for adrenal insufficiency, though cosyntropin test with robust response. Adrenals unremar kable on CT, pituitary hormones were wnl, and no obvious pituitary pathology on MRI brain. B P slowly improved with midodrine and stabilized in the 100-110s / 50-70s with average MAP 70 -80s. She was instructed to buy a BP cuff and check her readings daily. F/up with PCP in 1 [place] to [place] BP trends. - continue to hold home Lisinopril and Atenolol - continue Midodrine 10mg Q8H - BP cuff on discharge for daily recordings - f/up with PCP on 09/09/19 Hypercalcemia of Malignancy - resolved Hypovitaminosis D Hypocalcemia Patient with calcium to 13.6 (after correction of albumin) on 08/24 laboratory studies high ly concerning for hypercalcemia of malignancy, with known pathologic lumbar fracture. Patien t without significant symptom burden other than fatigue. Had received 3L IVF and pamidrona te prior to admission to hospital medicine service.PTH appropriately low, PTHrP pending. V it D low at 5.6. Calcium improved with continuous fluids but started to trend below normal r edgardo which is likely from pamidronate use in s/o vit D deficiency. Was started on high dose Vit D replacement and calcium carbonate 400mg BID. Will need close monitoring in the outpat ient setting, recommend routine BMP q72h. -PTHrP pending - calcium 40mg elemental BID - trend BMP, iCa q72h with PCP (12/27, 09/05, 09/08) - if Ca range 8.5 - 9.5 continue current dose, if < 8.5 increase calcium carbonate, if >10 discontinue calcium carbonate - continue vit D3 50,000iu daily - f/up Vit D levels in 1 month, adjust D3 dose pending results Acute Renal Injury ? Baseline CKD Hyperkalemia Multifactorial acute renal injury in setting of documented hypotension, decreased oral inta ke from malignancy, ongoing use of MEHNAZ inhibitor, progressive metastatic renal cell cancer a nd hypercalcemia.Received multiple liters of IVF w/o significant improvement. Elevated ur ic acid and LDH raise question of TLS which could cause uric acid nephropathy vs nephrocalci nosis. Also possible that she has some underlying CKD (Cr 1.51 on 07/27 which may be closer to her baseline). Cr eventually returned to baseline of 1.4 - 1.5 after treatment for TLS. T his can continue to be followed as an outpatient. - trend BMP q72h as outpatient per above Hyperuricemia Elevated LDH Hypophosphatemia Uric acid 11.2, LDH 387, and low phos suggestive of tumor lysis syndrome, though Ca was hig h on admission. Has h/o Hodgkins 2001 but no known recurrence. CT noted large calcified medi astinal and right hilar lymph nodes favored to be sequelae of treated lymphoma. Radiology co nfirmed no evidence of recurrence and flow cytometry negative. Large tumor burden could mildred retically lead to spontaneous TLS, though not typically associated with RCC. Received rasbur icase 3mg on 08/30 with improvement. Uric acid normalized. Phos replaced. 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 Per last outpatient Onc visit, planning to start ipilipumab/nivolulmab an d enroll in PEDIGREE trial. MRI brain completed here to finish pre-trial work up. Oncology f ollowed throughout her admission and she can continue to f/up as an outpatient for considera tion of immunotherapy. Her mobility limited by pain 2/2 her L2 compression fracture. Underwe nt kyphoplasty with Neurointerventional radiology on 08/29 with improvement in pain and mobi lity. Would also benefit from XRT moving forward for further symptom control. -continue 4WW - continue oxycodone5-10mg po q4h prn - referral placed to Rad Oncology in [place], [place] - f/up with Oncology on 09/13/19 Pancytopenia Hb 11.9 / HCT 37.9 on admission, trended down in s/o aggressive fluid replacement. Now stab ilized in 9 range. No cnocern for active bleeding. Iron studies consistent with ACD. RPI sug gestive of hypoproliferation. Has also had leukopenia and thrombocytopenia. No recent chemot herapy agents to explain pancytopenia. Expect 2/2 advanced RCC. -CTM Non-anion gap, hyperchloremic metabolic acidosis Suspect dilutional acidosis in s/o large volume fluid resuscitation with NS. HCO3 improved after discontinuation of fluids. Hypothyroidism Patient with hx of Hodgkin's Lymphoma s/p mantle irradiation c/b iatrogenic hypothyroidism for which she takes home levothyroxine. With normal 03/2019 TSH. Repeat TSH 11.1 and FT4 at 1 .1. Pt was instructed to increase home dose from 125 -> 137mcg at last Onc appt. -[id number] daily Pulmonary HTN TTE110/27 w/ RVSP of 75, mildly thickened and dilated RV. No prior ECHO available for leila clark. RVSP raised concern for PE, though given RA hypertrophy this is more likely chronic. Remained stable on RA. Discharge Physical Exam: BP 117/72 (BP Location: Right upper arm, Patient Position: Sitting) | Pulse 100 | Temp 36 .7 C (98.1 F) (Oral) | Resp 18 | Ht 1.575 m (5' 2") | Wt 98.7 kg (217 lb 8 oz) | SpO 2 97% | BMI 39.78 kg/m | BSA 2.08 m General: adult woman. Awake, NAD HEENT: AT/NC. Pupils equal. Sclera anicteric. MMM. Orophaynx without lesions. Neck: No LAD. JVP at clavicle at 30 degrees. Cardiovascular: RRR, nl S1/S2, no m/r/g Respiratory: Breathing regular, unlabored. CTAB Abdomen: +BS, soft, non-tender, non-distended Ext: wwp, 2+ pulses present bilaterally. No peripheral edema. Skin: No rashes or lesions. Neuro: Grossly intact. No evidence of focal abnormality Psych: Affect appropriate Pertinent Findings: Labs: FSH - 53 LH - 34 Prolactin - 18 Cortisol stim test - baseline 6.1, 30.4 (30m), 38.4 (60m) ACTH - 2 Vit D - 5.6 (L) Cultures: 08/24 Urine micro - 439 RBCs, otherwise normal Hemopath: 08/29 Peripheral blood, flow cytometric analysis: - No evidence of lymphoma or acute leukemia. Imaging: CTH 08/27/[address] c/a/p 08/23/19 1. Redemonstrated left renal cell carcinoma with extensive venous collateralization, reflec ting previously seen left renal vein invasion not evaluated on today's noncontrast study. 2. Redemonstrated large confluent hepatic metastases. 3. Several right middle and lower lobe pulmonary nodules, concerning for metastases. 4. Progressive now 50% height loss of pathological L2 compression fracture. 5. Sequelae of remote mediastinal radiation/treated lymphoma seen in the lungs and mediasti nal nodes, as described TTE 08/26/19 1. The left ventricular size is normal. 2. The LV function is normal. 3. RV cavity size is mildly enlarged. RV wall thickness is mildly increased. RV global systolic function is normal. The estimated right ventricular systolic pressure is severely elevated (RVSP = 75.9 mmHg). 4. Mild aortic regurgitation. 5. Mild-moderate tricuspid regurgitation. 6. The tricuspid valve is thickened. No mobile echodensities are seen. 7. There are no prior exams available for comparison. BLE venous duplex 08/28/19 Conclusions: A normal venous examination of the bilateral lower extremities. No venous thro mbosis was detected. MRI Brain w/wo 08/30/19 No acute intracranial process or enhancing intracranial abnormality. Outstanding or Pending Labs/Studies: PTHrP - pending Discharge Medications: Medication List START taking these medications acetaminophen 500 mg Tab Commonly known as: TYLENOL Take 2 tablets by mouth three times daily as needed for mild pain. calcium carbonate chewable 200 mg elemental (500 mg total salt) Chew Commonly known as: TUMS Chew and swallow 2 tablets two times daily with meals. cholecalciferol 50,000 unit Cap Commonly known as: VITAMIN D3 Take 1 capsule by mouth once daily. Indications: vitamin D deficiency (high dose therapy) midodrine 10 mg Tab Commonly known as: PROAMITINE Take 1 tablet by mouth every eight hours. Avoid dosing after the evening meal or within 4 h ours of bedtime. omeprazole 20 mg Cpdr Commonly known as: PRILOSEC Take 1 capsule by mouth two times daily. Administer 30 to 60 minutes before meals polyethylene glycol 17 gram Pwpk Commonly known as: MIRALAX Mix 1 packet and take orally once daily as needed. senna-docusate 8.6-50 mg Tab Commonly known as: SENOKOT S Take 2 tablets by mouth two times daily. CHANGE how you take these medications levothyroxine 137 mcg Tab Take 1 tablet by mouth before breakfast. What changed: how much to take oxyCODONE (immediate release) 10 mg Tab Commonly known as: ROXICODONE Take 0.5-1 tablets by mouth every six hours as needed for severe pain. What changed: medication strength when to take this reasons to take this CONTINUE taking these medications lovastatin 20 mg Tab Commonly known as: MEVACOR Take 20 mg by mouth once daily in the evening. Administer with evening meal. STOP taking these medications atenolol 50 mg Tab Commonly known as: TENORMIN lisinopril 5 mg Tab Commonly known as: PRINIVIL Rationale for Medication Changes: - Discontinued lisinopril due to hypotension, hyperkalemia - Discontinued atenolol due to hypotension - Started tylenol for pain - Started calcium for hypocalcemia - Started VitD for deficiency and hypocalcemia - Started midodrine for hypotension - Started omeprazole for GERD - Started oxycodone for pain - Started miralax, senna for bowel regimen while on opioids - Adjusted levothyroxine dose due to TSH/T4 per above Condition on discharge: Good Code Status: Full POLST completed: no Follow-up Appointments: Schedule the following appointment(s) when you get home Lissette Milner PA-C. Go on 09/09/2019. Specialty: Physician Senior Director Of Strategy Why: For hospital follow-up and repeat lab work. Your appt is scheduled at 3pm Contact information [facility] [address] [place] [address] Lissette Ortiz MD. Go on 09/13/2019. Why: You have an appointment at 9:15 AM. Contact information [facility] - Hematology/Medical Oncology [facility], [address] [place], [place] [address] Future Appointments Provider Department Dept Phone Center 09/06/2019 6:00 PM RAD OP MRI3 Diagnostic Imaging Services at [facility] [phone] RADIOLOGY 09/13/2019 9:15 AM Lissette Ortiz H[facility]ology[facility] Arrive at: 10th Floor Hematology/Medical Oncology [phone] HemOn Referrals: CONSULT TO RADIATION ONCOLOGY Referral to [place] Radiation Oncology department 54yo F with h/o Hodgkin's 2002, recent dx of metastatic RCCReferral for radiation therapy to L2 compression fracture secondary to metastatic RCC Notes for PCP - Please trend Ca and kidney function on q72h BMP - Please trend CBC to monitor for worsening pancytopenia - Follow-up on BP trend (pt instructed to log daily). May need dose adjustment of midodrine Please CC to: Primary Care Provider Lissette Milner PA-C [facility] [address] [facility] [place] [address] Call: Lissette Milner PA-C If you have any of the following: Difficulty breathing or unusual shortness of breath Excessive bleeding, drainage at the operative site Fevers, chills, increased pain that is not relieved by pain medications Persistent nausea or vomiting Discharging Provider: yKlie Sexton PA-C I spent more than 39 minutes floor / unit time of which greater than 50% was spent counseli ng the patient regarding discharge instructions, medications and follow up plans. Kylie Sexton PA-C Instructor of Medicine Clinical Hospitalist Service [facility] [place] Pager [phone] [facility] [address] [place] [address] documented in this enc ounter Discharge Instructions Discharge Instr - AVS First Page Shelli Prescott PA - 08/31/2019 4:01 PM PSTWho to Call : HOW TO REACH YOUR MEDICAL TEAM WITH QUESTIONS, CONCERNS, OR NEW SYMPTOMS: Thank you for en trusting your care to [facility] Internal Medicine. If you have any problems or concerns before yo u are able to follow up with your Primary Care Provider, please call and ask the foundation drill operator helper to page the attending physician who was caring for you at discharge. If that ph ysician is not available, ask the foundation drill operator helper to page the physician on-call for the Clinical spitalist Service. Discharge Instr - Activity Shelli Prescott PA - 08/31/2019 4:00 PM PSTActivity Instruct ions: No activity restrictions. Recommend continuing to use your walker for support and aime nce. Discharge Instr - Diet Kylie Sexton PA - 08/31/2019 4:00 PM PSTRegular diet Electronica lly signed by REDD Timmons at 09/01/2019 9:30 AM PST Discharge Instr - Diagnoses Shelli Prescott PA - 08/31/2019 3:48 PM PST1) *Hypercalcem ia (high calcium) of malignancy 2) Hypotension 3) Renal cell adenocarcinoma 4) Hyperkalemia (high potassium) 5) Hypothyroidism 6) Compression fracture of L2 vertebra 9) Proteinuria (protein in urine) 10) Hematuria (blood in urine) 11) JONO (acute kidney injury) 13) Anemia 14) Leukopenia (low white blood cell count) Discharge Instr - Procedures Shelli Prescott PA - 08/31/2019 3:48 PM PSTL2 KyphoplastyE lectronically signed by REDD Valencia at 08/31/2019 3:48 PM PST Discharge Instr - Hospital Course Kylie Sexton PA - 08/31/2019 3:54 PM PSTYou were admi tted to the hospital from your Oncologist's office for high levels of calcium and potassium in your blood. The high calcium was likely caused by the bony involvement of your cancer and your high potassium was caused by an acute kidney injury which we think developed due to yo ur low blood pressure (which reduced blood flow to the kidney). You required a brief stay in the ICU for BP support. You were started on a medication to help support your blood pressur e called midodrine which is taken 3x /day. You should keep a log of your blood pressures [place] can call your PCP if you have consistent readings <80/50 or >150/90. Your dose may need t o be adjusted. You should stop taking your lisinopril and atenolol as these can make your bl ood pressure lower. Your calcium improved with IV fluids and a medication called a bisphosphonate, which helps to decrease bony turnover of calcium, though your calcium levels started to decrease below t he normal range. You were started on daily Vit D replacement and calcium. You should have yo ur labs checked every 72 hours at [facility] (have labs drawn 09/02, 09/05, and 09/08). You r PCP will follow your labs and let you know if your electrolytes are abnormal. If you devel op numbness or tingling around your mouth, fingers, toes, or muscle spasms or cramping, plea se seek medical care as this can be a sign that your calcium is becoming dangerously low. You had a kyphoplasty of your L2 vertebrae which had suffered a compression fracture. The k yphoplasty should give the vertebrae more support and reduce pain. A referral was also sent to the [place] [facility] department for consideration of radiation therapy to yo ur spine. This can further reduce your pain and help mobility. Discharge Instr - Electronic Signature Kylie Sexton PA - 08/31/2019 4:01 PM PSTAfter Vi sit Summary Signature Electronically signed by: REDD Valencia, 08/31/2019 at 4:01 PM; Jo Ann Bryant MD 1 11/02/2018 at 12:13 PM documented in this encounter Medications at Time [...] documented as of this encounter Progress Notes Shelli Prescott PA - 08/30/2019 12:48 PM PSTFormatting of this note might be different f rom the original. CLINICAL HOSPITALIST SERVICE PROGRESS NOTE Author: REDD Valencia Attending Physician: Najma rByant MD Patient Name: [facility] Day: 6 Interval Events: - NAEO, VS: BP min 93/70, max 151/50, HR 80-90s - Uric acid 10.4, LDH 393 - given 3mg rubusicase, started LR @100cc/hr for hyperuricemia - Uric acid 5.5, LDH 408 - Cr 1.81 -> 1.42, BUN 32 -> 26 - K 4.9 -> 4.5, Ca 8.7 -> 8.5, iCa 1.22 -> 1.19, Phos 2.2 -> 2.2 - s/p L2 kyphoplasty Subjective: Pain greatly improved after kyphoplasty. Immediately noticed it was easier to transition on /off the bed. Has been ambulating around room, still a little unsteady on her feet. Encourag ed to hear that her kidney function is improving. Denies F/C, CP, SOB, abdominal pain, N/V/D /C. Vitals: Last Vitals: BP 111/59 | Pulse 93 | Temp 36.6 C (97.9 F) | Resp 20 | Ht 1.575 m (5' 2") | Wt 98.7 kg (217 lb 8 oz) | SpO2 98% | BMI 39.78 kg/m | BSA 2.08 m 24 Hour Vital Min/Max: Systolic (24hrs), Av , Min:93 , Max:151 Diastolic (24hrs), Av, Min:44, Max:70 Pulse Min: 82 Max: 95 Temp Min: 36.4 C (97.5 F) Max: 36.6 C (97.9 F) Resp Min: 14 Max: 26 SpO2 Min: 96 % Max: 100 % Intake/Output Summary (Last 24 hours) at 08/30/2019 0950 Last data filed at 08/30/2019 0800 Gross per 24 hour Intake 993.33 ml Output 2550 ml Net -1556.67 ml Physical Exam: General: Non-toxic woman, sitting comfortably in chair. Awake, NAD HEENT: AT/NC. Pupils equal. Sclera anicteric. MMM. Cardiovascular: RRR, nl S1/S2, grade I/VII systolic murmur in LLSB Respiratory: Breathing regular, unlabored on RA. CTAB Abdomen: obese, +BS, soft, non-tender, mild distention, no R/G Ext: wwp, no peripheral edema. Skin: No rashes or lesions. Neuro: A&O x4. Grossly non-focal, moving all extremities Psych: Affect appropriate Laboratory: CBC with diff last 72 hours (or 3 results) Recent Labs 08/29/19 0348 08/29/19 1226 08/30/19 0349 WBC 3.78 3.47* 3.05* HB 9.8* 9.9* 9.5* HCT 31.4* 31.7* 30.5* PLT 158 168 151 NEUTROPERC 63.2 67.9 68.3 LYMPHPERC 20.1 15.9* 15.7* MONOPERC 9.0 8.9 9.5* BASOPERC 0.8 0.9 1.0 EOSPERC 6.6* 6.1* 5.2* Chemistries last 72 Hours (or 3 results): Recent Labs 08/29/19 0348 08/29/19 1625 08/30/19 0349 NA 140 140 143 K 4.9 4.4 4.5 CL 114* 114* 116* BICARB 21 21 22 BUN 32* 30* 26* CR 1.81* 1.57* 1.42* CA 8.7 8.5* 8.5* PO4 -- 2.2* 2.2* Lab Results Component Value Date URICACID 5.5 08/30/2019 Lab Results Component Value Date LDTOTAL 408 08/30/2019 Lab Results Component Value Date PO4 2.2 08/30/2019 FSH - 53 LH - 34 Prolactin - 18 Cortisol stim test - baseline 6.1, 30.4 (30m), 38.4 (60m) ACTH - 2 Vit D - 5.6 (L) PTHrP - pending Microbiology: 08/24 Urine micro - 439 RBCs, otherwise normal Imaging: CTH 08/27/[address] c/a/p 08/23/19 1. Redemonstrated left renal cell carcinoma with extensive venous collateralization, reflec ting previously seen left renal vein invasion not evaluated on today's noncontrast study. 2. Redemonstrated large confluent hepatic metastases. 3. Several right middle and lower lobe pulmonary nodules, concerning for metastases. 4. Progressive now 50% height loss of pathological L2 compression fracture. 5. Sequelae of remote mediastinal radiation/treated lymphoma seen in the lungs and mediasti nal nodes, as described TTE 08/26/19 1. The left ventricular size is normal. 2. The LV function is normal. 3. RV cavity size is mildly enlarged. RV wall thickness is mildly increased. RV global systolic function is normal. The estimated right ventricular systolic pressure is severely elevated (RVSP = 75.9 mmHg). 4. Mild aortic regurgitation. 5. Mild-moderate tricuspid regurgitation. 6. The tricuspid valve is thickened. No mobile echodensities are seen. 7. There are no prior exams available for comparison. BLE venous duplex 08/28/19 Conclusions: A normal venous examination of the bilateral lower extremities. No venous thro mbosis was detected. Assessment and Plan: Hank Altman is a 54 y/o F h/o Hodgkin's lymphoma s/p CHOP and XRT, hypothyroidism, rece ntly diagnosed metastatic RCC, initially admitted for hypotension, hypercalcemia and hyperka lemia, transferred to MICU on 08/26 for hypotension requiring pressor support, now stabilize d and transferring back to [facility] service. Problem List: Hypotension Present on admission, transferred to MICU on 08/26 for continued hypotension refractory to IVF. TTE in MICU with normal LV, mildly enlarged RV cavity, RVSP 75.9mmHg, mild AR, mild-mod TR. CVP ~13 per MICU sign-out. BP improved with pressor support and stress dose steroids in MICU, both weaned off though continues midodrine. Etiology unknown. Leading thought was 2/2 home ACEi and BB with poor clearance in s/o JONO though would expect to see improvement by n ow. Considered PE in s/o elevated RSVP though RA hypertrophy suggests a more chronic picture . BLE venous dopplers normal. 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 Admission EKG with S1Q 3T3 pattern. Unable to obtain CTA due to JONO. Query if she has spinal mets causing cervical cord compression and autonomic dysfunction, though no neuro deficits. Minimal sympathetic re sponse on orthostatics. Combination of hyperK and hypotension prompted w/up for adrenal insu ffiencey, though cosyntropin test with robust response. Adrenals unremarkable on CT. If adre nal sufficiency is contributing then it is likely central from pituitary insult. Will obtain MRI Brain w/wo contrast. - continue to hold home Lisinopril and Atenolol - continue Midodrine 10mg Q8H - MRI Brain w/wo today Hypercalcemia of Malignancy - resolved Hypovitaminosis D Patient with calcium to 13.6 (after correction of albumin) on 08/24 laboratory studies high ly concerning for hypercalcemia of malignancy, with known pathologic lumbar fracture. Mare ent without significant symptom burden other than fatigue. Had received 3L IVF and pamidro kira prior to admission to hospital medicine service.PTH appropriately low, PTHrP pending. Calcium improved with continuous fluids. Oncology following. -daily CMP + iCa - follow-up PTHrp - continue vit D3 50,000iu q7d Acute Renal Injury ? Baseline CKD Hyperkalemia Multifactorial acute renal injury in setting of documented hypotension, decreased oral inta ke from malignancy, ongoing use of MEHNAZ inhibitor, progressive metastatic renal cell cancer a nd hypercalcemia. Received multiple liters of IVF w/o significant improvement. Elevated uri c acid and LDH raise question of TLS which could cause uric acid nephropathy vs nephrocalcin osis. Also possible that she has some underlying CKD (Cr 1.51 on 07/27 which may be closer t o her baseline). Has demonstrated further improvement of her kidney fx with treatment of hyp eruricemia. - daily CMP - K restricted diet - continue to hold ACEi as above - avoid nephrotoxins - treat hyperuricemia as dictated below Hyperuricemia Elevated LDH Hypophosphatemia Uric acid 11.2, LDH 387, and low phos suggestive of tumor lysis syndrome, though Ca was hig h on admission. Has h/o Hodgkins 2001 but no known recurrence. CT noted large calcified medi astinal and right hilar lymph nodes favored to be sequelae of treated lymphoma. Radiology co nfirmed no evidence of recurrence. Large tumor burden could theoretically lead to spontaneou s TLS, though not typically associated with RCC. Oncology following. Received rasburicase 3m g on 08/30 with improvement. 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 Per last outpatient Onc visit, planning to start ipilipumab/nivolulmab an d enroll in PEDIGREE trial, though needs to complete MRI Brain and bone scan prior. Onc cons ulted here. Mobility limited by pain, currently using walker. Underwent kyphoplasty with Aaron rointerventional radiology on 08/29 with improvement in pain and mobility. Would also benefi t from XRT moving forward. - appreciate Oncology, Interventional Neuroradiology assistance - place referral to Rad Onc in [place] on discharge - continue oxycodone5-10mg po q4h prn -IV HM 0.2mg q3h prn - aggressive bowelregimen -anti-nausea regimen - PT eval Non-anion gap, hyperchloremic metabolic acidosis Suspect dilutional acidosis in s/o large volume fluid resuscitation with NS. HCO3 improving . - trend HCO3, Cl Normocytic anemia Hb 11.9 / HCT 37.9 on admission, trending down. Likely dilutional, no evidence of active bl eed. Likely also component of ACD. -CTM Hypothyroidism Patient with hx of Hodgkin's Lymphoma s/p mantle irradiation c/b iatrogenic hypothyroidism for which she takes home levothyroxine. With normal 03/2019 TSH. Repeat TSH 11.1 and FT4 at 1 .1. Pt was instructed to increase home dose from 125 -> 137mcg at last Onc appt. -[id number] daily Pulmonary HTN TTE 08/26 w/ RVSP of 75, mildly thickened and dilated RV. No prior ECHO available for perez rison. RVSP raised concern for PE, though given RA hypertrophy this is more likely chronic. -stable on RA; CTM. FEN: Regular diet, low K and low Ca Prophy: SC heparin Code status: Full DISPO: Potentially may be ready for DC tomorrow if labs and BP stable. I spent 40 minutes [id number] with the patient of which greater than 50% was spent counse ling the patient about hypotension, pain management, kyphoplasty,TLS, JONO in reviewing dayday dao chart notes/data, as well as coordination of care with Interventional Neuroradiology, O ncology, nursing, and case management. Shelli Prescott PA-C Instructor of Medicine Clinical Hospitalist Service [facility] Pager [phone] Associated attestation - Najma Bryant MD - 08/30/2019 2:44 PM PSTI personally evaluated t he patient, performed the gonsales elements of the physical examination, and personally formulate d the assessment and plan with REDD Pittman. I have reviewed the written documentatio n and I agree with the findings, assessment, advice, orders and plan as they are documented. Patients Hospital Problem List: Active Hospital Problems 1) *Hypercalcemia of malignancy 2) Renal cell adenocarcinoma (HCC) 3) Hyperkalemia 4) Hypothyroidism 5) Compression fracture of L2 vertebra (HCC) 6) Closed compression fracture of L2 lumbar vertebra, initial encounter (HCC) 7) 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) 8) Proteinuria 9) Hematuria 10) JONO (acute kidney injury) (HCC) 11) Elevated blood uric acid level 54 yo W with history of Hodgkin's s/p CHOP and XRT c/b iatrogenic hypothyroidism, recent di agnosis of metastatic renal cell carcinoma (mets to L renal vein, liver, lungs, and L2 spine ) c/b L2 compression fracture and significant pain, who was admitted on 08/24 for hypercalce dom, hyperkalemia and asymptomatic hypotension, later requiring ICU transfer for shock of un clear etiology. Pain significantly improved after kyphoplasty. Elevated uric acid level and LDH, concerning for possible tumor lysis syndrome and started on rasburicase with good respo nse. Reviewed CT c/a/p with radiology today, no evidence of new LAD; calficied mediastinal L N consistent with XRT tx. Cause of persistent hypotension remains elusive, but her BP seems to slowly be improving. Renal function improving after treating for TLS. Only case reports d escribing RCC associated TLS, but this could explain her elevated LDH, uric acid, and JONO. R CC associated with several paraneoplastic syndromes, but based on my review nothing that wou ld explain her hypotension (typically would see hypertension from paraneoplastic Horacio's). Jo Ann Bryant MD Clinical Hospitalist [facility] Pager [phone] Yrn Clemens MD - 08/30/2019 12:34 PM PSTInterventional Neuroradiology Hank reports that the kyphoplasty has significantly decreased her low back pain. She is able to lay in bed and walk to and from the bathroom without significant back pain. She min s report some muscle pain, but reports that it is much better in comparison to the pain that she was having prior to the procedure. Yrn Clemens MD Compliance Specialist - Skull base and Cerebrovascular Neurosurgery Department of Neurological Railroad BrakemanCompliance Specialist - Interventional Neuroradiology Felipe Key Department of Interventional Radiology [facility] 1 2:36 PM Shelli Arriaga PA - 08/29/2019 4:59 PM PSTFormatting of this note might be d ifferent from the original. CLINICAL HOSPITALIST SERVICE PROGRESS NOTE Author: REDD Valencia Attending Physician: Najma Bryant MD Patient Name: [facility] Day: 5 Interval Events: - NAEO, VS: BP min 86/43, max 111/62, HR 70-80s - MRI postponed due to reduced GFR - Consult to Neuro IR -> plan for kyphoplasty/vertebroplasty today - Cr 1.76 -> 1.81, BUN 38 -> 32 - K 4.6 -> 4.9, Ca 8.9 -> 8.7, iCa 1.25 -> 1.21 - BLE venous duplex negative - orthostatics: Supine 90/53, HR 83 Sitting 107/48, HR 81 Standing 111/62, HR 87 Subjective: Pain rated at a 6/10 with oxycodone, up to 8/10 when her pain med wear off. She is looking forward to getting her procedure, hopeful it will improve her pain and mobility. Happy with her current oxycodone dose. Denies focal numbness or weakness of upper or lower extremities. Has had good UOP, no B/B incontinence or retention. Wondering if she still qualifies for th e clinical trial. Has not had CP, SOB, palpitations, hypoxia, lightheadedness or confusion. Vitals: Last Vitals: BP 102/54 (BP Location: Left upper arm, Patient Position: Lying on back) | Pu lse 77 | Temp 36.3 C (97.3 F) | Resp 18 | Ht 1.575 m (5' 2") | Wt 98.7 kg (217 lb 8 oz) | SpO2 98% | BMI 39.78 kg/m | BSA 2.08 m 24 Hour Vital Min/Max: Systolic (24hrs), Av , Min:86 , Max:111 Diastolic (24hrs), Av, Min:43, Max:62 Pulse Min: 76 Max: 87 Temp Min: 36.3 C (97.3 F) Max: 36.4 C (97.5 F) Resp Min: 18 Max: 18 SpO2 Min: 95 % Max: 100 % Intake/Output Summary (Last 24 hours) at 08/29/2019 0737 Last data filed at 08/29/2019 0330 Gross per 24 hour Intake 660 ml Output 1500 ml Net -840 ml Physical Exam: General: Non-toxic woman, sitting comfortably in chair. Awake, NAD HEENT: AT/NC. Pupils equal. Sclera anicteric. MMM. Cardiovascular: RRR, nl S1/S2, grade I/VII systolic murmur in LLSB Respiratory: Breathing regular, unlabored on RA. CTAB Abdomen: obese, +BS, soft, non-tender, mild distention, no R/G Ext: wwp, 2+ pulses present bilaterally. Non-pitting peripheral edema. Skin: No rashes or lesions. Neuro: A&O x4. CN II-XII intact. BLE strength limited by pain, 3+/5 equal bilaterally. 5/5 BUE strength. Sensation intact to light touch throughout. Psych: Affect appropriate Laboratory: CBC with diff last 72 hours (or 3 results) Recent Labs 08/27/19 0437 08/28/19 0448 08/29/19 0348 WBC 2.99* 3.83 3.78 HB 9.6* 9.5* 9.8* HCT 32.8* 30.5* 31.4* PLT 134* 142* 158 NEUTROPERC 69.5 70.3* 63.2 LYMPHPERC 19.1 17.2* 20.1 MONOPERC 9.7* 9.4* 9.0 BASOPERC 0.3 0.5 0.8 EOSPERC 0.7* 2.1 6.6* Chemistries last 72 Hours (or 3 results): Recent Labs 08/26/19 1032 08/27/19 0436 08/27/19 2244 08/28/19 1146 08/29/19 0348 NA 138 < > 139 < > 137 141 140 K 5.2* < > 5.2* < > 5.0 4.6 4.9 CL 115* < > 114* < > 112* 114* 114* BICARB 17* < > 19* < > 19* 22 21 BUN 29* < > 31* < > 38* 38* 32* CR 1.79* < > 2.01* < > 1.95* 1.76* 1.81* CA 9.7 < > 9.2 < > 8.8 8.9 8.7 PO4 2.1* -- 3.2 -- -- -- -- < > = values in this interval not displayed. Lab Results Component Value Date URICACID 10.5 08/28/2019 Lab Results Component Value Date LDTOTAL 326 08/28/2019 Lab Results Component Value Date PO4 3.2 08/27/2019 FSH - 53 LH - 34 Prolactin - 18 Cortisol stim test - baseline 6.1, 30.4 (30m), 38.4 (60m) Vit D - 5.6 (L) PTHrP - pending Microbiology: 08/24 Urine micro - 439 RBCs, otherwise normal Imaging: CTH 08/27/[address] c/a/p 08/23/19 1. Redemonstrated left renal cell carcinoma with extensive venous collateralization, reflec ting previously seen left renal vein invasion not evaluated on today's noncontrast study. 2. Redemonstrated large confluent hepatic metastases. 3. Several right middle and lower lobe pulmonary nodules, concerning for metastases. 4. Progressive now 50% height loss of pathological L2 compression fracture. 5. Sequelae of remote mediastinal radiation/treated lymphoma seen in the lungs and mediasti nal nodes, as described TTE 08/26/19 1. The left ventricular size is normal. 2. The LV function is normal. 3. RV cavity size is mildly enlarged. RV wall thickness is mildly increased. RV global systolic function is normal. The estimated right ventricular systolic pressure is severely elevated (RVSP = 75.9 mmHg). 4. Mild aortic regurgitation. 5. Mild-moderate tricuspid regurgitation. 6. The tricuspid valve is thickened. No mobile echodensities are seen. 7. There are no prior exams available for comparison. BLE venous duplex 08/28/19 Conclusions: A normal venous examination of the bilateral lower extremities. No venous thro mbosis was detected. Assessment and Plan: Hank Altman is a 54 y/o F h/o Hodgkin's lymphoma s/p CHOP and XRT, hypothyroidism, rece ntly diagnosed metastatic RCC, initially admitted for hypotension, hypercalcemia and hyperka lemia, transferred to MICU on 08/26 for hypotension requiring pressor support, now stabilize d and transferring back to [facility] service. Problem List: Hypotension Present on admission, transferred to MICU on 08/26 for continued hypotension refractory to IVF. TTE in MICU with normal LV, mildly enlarged RV cavity, RVSP 75.9mmHg, mild AR, mild-mod TR. CVP ~13 per MICU sign-out. BP improved with pressor support and stress dose steroids in MICU, both weaned off though continues midodrine for BP support.Etiology unknown. Leading t hought was 2/2 ACEi and BB at home with poor clearance in s/o JONO though would expect to see improvement by now. Considered PE in s/o elevated RSVP though RA hypertrophy suggests a mor e chronic picture. BLE venous dopplers normal. 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 Admis janice EKG with S1Q3T3 pattern. Unable to obtain CTA due to JONO. Query if she has spinal mets causing cervical cord compression and autonomic dysfunction, though no neuro deficits. Minim al sympathetic response on orthostatics. Combination of hyperK and hypotension prompted w/up for adrenal insuffiencey, though cosyntropin test with robust response. Adrenals unremarkab le on CT. If adrenal sufficiency is contributing then it is likely central from pituitary in sult. Will obtain MRI Brain w/wo contrast if GFR permits. - continue to hold home Lisinopril and Atenolol - continue Midodrine 10mg Q8H - MRI Brain w/wo + pituitary cuts if GFR >30 Hypercalcemia of Malignancy - resolved Hypovitaminosis D Patient with calcium to 13.6 (after correction of albumin) on 08/24 laboratory studies high ly concerning for hypercalcemia of malignancy, with known pathologic lumbar fracture. Mare ent without significant symptom burden other than fatigue. Had received 3L IVF and pamidro kira prior to admission to hospital medicine service.PTH appropriately low, PTHrP pending. Calcium improved with continuous fluids, now stable off IVF. Oncology following. -daily CMP + iCa - follow-up PTHrp - continue vit D3 50,000iu q7d Acute Renal Injury ? Baseline CKD Hyperkalemia Multifactorial acute renal injury in setting of documented hypotension, decreased oral inta ke from malignancy, ongoing use of MEHNAZ inhibitor, progressive metastatic renal cell cancer a nd hypercalcemia. Received multiple liters of IVF w/o significant improvement. Elevated uri c acid and LDH raise question of TLS which could cause uric acid nephropathy vs nephrocalcin osis. Cr ranging from 1.7 - 1.9. Possible that she has some underlying CKD. Had Cr 1.51 on 09/26 which may be closer to her baseline. - daily CMP - K restricted diet - continue to hold ACEi as above - avoid nephrotoxins - treat hyperuricemia as dictated below Hyperuricemia Elevated LDH Uric acid 11.2, LDH 387 on admission. Suggestive of tumor lysis syndrome, though phos clarisa l and Ca was high on admission. Has h/o Hodgkins but no known recurrence. CT noted large clark cified mediastinal and right hilar lymph nodes favored to be sequelae of treated lymphoma. O ncology following. Possible that hyperuricemia is contributing to JONO. 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 Per last outpatient Onc visit, planning to start ipilipumab/nivolulmab an d enroll in PEDIGREE trial, though needs to complete MRI Brain and bone scan prior. Onc cons ulted here. Mobility limited by pain, currently using walker. Underwent kyphoplasty with Aaron rointerventional radiology on 08/29. Would also benefit from XRT moving forward. - appreciate Oncology, Interventional Neuroradiology assistance - place referral to Rad Onc in [place] on discharge - continue oxycodone5-10mg po q4h prn -IV HM 0.2mg q3h prn - aggressive bowelregimen -anti-nausea regimen - PT consult for safety eval prior to dischargeas mobility greatly limited by pain Non-anion gap, hyperchloremic metabolic acidosis Suspect dilutional acidosis in s/o large volume fluid resuscitation with NS. HCO3 improving . - trend HCO3, Cl Normocytic anemia Hb 11.9 / HCT 37.9 on admission, trending down. Likely dilutional, no evidence of active bl eed. Likely also component of ACD. -CTM Hypothyroidism Patient with hx of Hodgkin's Lymphoma s/p mantle irradiation c/b iatrogenic hypothyroidism for which she takes home levothyroxine. With normal 03/2019 TSH. Repeat TSH 11.1 and FT4 at 1 .1. Pt was instructed to increase home dose from 125 -> 137mcg at last Onc appt. -[id number] daily Pulmonary HTN TTE 08/26 w/ RVSP of 75, mildly thickened and dilated RV. No prior ECHO available for perez og. RVSP raised concern for PE, though given RA hypertrophy this is more likely chronic. -stable on RA; CTM. FEN: Regular diet, low K and low Ca Prophy: SC heparin Code status: Full DISPO: Pending clinical course. I spent 45 minutes [id number] with the patient of which greater than 50% was spent counse ling the patient about hypotension, DVT/PE, pain management, kyphoplasty, in [facility]/data, as well as coordination of care with Interventional Neuroradiology, O ncology, nursing, and case management. SOLEDAD ValenciaC Instructor of Medicine Clinical Hospitalist Service [facility] Pager [phone] Associated attestation - Najma Bryant MD - 08/30/2019 11:02 AM PSTI personally evaluated t he patient, performed the gonsales elements of the physical examination, and personally formulate d the assessment and plan with REDD Valencia. I have reviewed the written documentati on and I agree with the findings, assessment, advice, orders and plan as they are documented . Patients Hospital Problem List: Active Hospital Problems 1) *Hypercalcemia of malignancy 2) Renal cell adenocarcinoma (HCC) 3) Hyperkalemia 4) Hypothyroidism 5) Compression fracture of L2 vertebra (HCC) 6) Closed compression fracture of L2 lumbar vertebra, initial encounter (HCC) 7) 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) Jo Ann Bryant MD Clinical Hospitalist [facility] Pager [phone] Neda Gaines MD - 08/29/2019 12:24 PM PSTFormatting of this note might be different from t he original. INPATIENT ONCOLOGY FOLLOW-UP CONSULT NOTE Length of stay: 5 Reason for Consult: clear cell renal carcinoma Requesting Provider: Dr. Graham Outpatient Core Extruder/Oncologist: Dr. Ortiz Interval events: --asymptomatic from hypotension --still reports lower back pain, without other neurologic symptoms --planning for kyphoplasty. Also discussed with Rad Onc, pt will benefit from radiation for pathologic frx Current Inpatient Medications acetaminophen (TYLENOL) tablet 1,000 mg, 1,000 mg, oral, TID bisacodyl (DULCOLAX) suppository 10 mg, 10 mg, rectal, DAILY PRN cholecalciferol (VITAMIN D3) capsule 50,000 Units, 50,000 Units, oral, Q7D HYDROmorphone (DILAUDID) injection 0.2 mg, 0.2 mg, intravenous, Q3H PRN lactated ringers (LR) infusion, 100 mL/hr, intravenous, CONTINUOUS levothyroxine tablet 137 mcg, 137 mcg, oral, BEFORE BREAKFAST melatonin tablet 3 mg, 3 mg, oral, HS PRN midodrine (PROAMITINE) tablet 10 mg, 10 mg, oral, Q8H nystatin (MYCOSTATIN) ointment, , topical, BID nystatin (MYCOSTATIN) powder, , topical, BID omeprazole (PRILOSEC) capsule 20 mg, 20 mg, oral, BID ondansetron ODT (ZOFRAN ODT) tablet 4 mg, 4 mg, oral, Q8H PRN oxyCODONE (immediate release) (ROXICODONE) tablet 10 mg, 10 mg, oral, ONCE NEEDED oxyCODONE (immediate release) (ROXICODONE) tablet 5-10 mg, 5-10 mg, oral, Q4H PRN polyethylene glycol (MIRALAX) packet 17 g, 17 g, oral, TID PRN polyethylene glycol (MIRALAX) packet 17 g, 17 g, oral, DAILY senna-docusate (SENOKOT S) 8.6-50 mg 2 tablet, 2 tablet, oral, BID No Known Allergies Physical Exam: Last Vitals: BP 109/68 (BP Location: Left upper arm, Patient Position: Lying on back) | Pu lse 77 | Temp 36.2 C (97.2 F) (Oral) | Resp 16 | Ht 1.575 m (5' 2") | Wt 98.7 kg (21 7 lb 8 oz) | SpO2 98% | BMI 39.78 kg/m | BSA 2.08 m 24 hour Vitals min/max : Systolic (24hrs), Av , Min:86 , Max:111 Diastolic (24hrs), Av, Min:43, Max:68 Pulse Min: 76 Max: 87 Temp Min: 36.2 C (97.2 F) Max: 36.4 C (97.5 F) Resp Min: 16 Max: 18 SpO2 Min: 95 % Max: 100 % General: Alert, oriented HEENT: PERRL with no scleral icterus or conjunctival injection. Cardiac: Regular rate and rhythm Pulm: Clear to ausculation bilaterally GI: Soft, nondistended abdomen with normoactive bowel sounds and no tenderness to palpation . No rebound, guarding or rigidity Extremities: Warm and well perfused, no pitting edema in the lower extremities bilaterally. Neuro: Cranial nerves grossly intact bilaterally. Psych: Pleasant and appropriate affect Data: Recent Labs 08/27/19 0437 08/28/19 0448 08/29/19 0348 WBC 2.99* 3.83 3.78 HB 9.6* 9.5* 9.8* HCT 32.8* 30.5* 31.4* PLT 134* 142* 158 NEUTROPERC 69.5 70.3* 63.2 LYMPHPERC 19.1 17.2* 20.1 MONOPERC 9.7* 9.4* 9.0 BASOPERC 0.3 0.5 0.8 EOSPERC 0.7* 2.1 6.6* Recent Labs 08/24/19 2023 08/25/19 0536 08/26/19 1032 08/27/19 0436 08/27/19 2244 08/28/19 1146 08/29/19 0348 NA 138 < > 142 < > 138 < > 139 < > 137 141 140 K 5.5* < > 5.2* < > 5.2* < > 5.2* < > 5.0 4.6 4.9 CL 111* < > 116* < > 115* < > 114* < > 112* 114* 114* BICARB 23 -- 22 < > 17* < > 19* < > 19* 22 21 BUN 43* < > 36* < > 29* < > 31* < > 38* 38* 32* CR 2.06* < > 1.78* < > 1.79* < > 2.01* < > 1.95* 1.76* 1.81* GLU 105* < > 88 < > 92 < > 102* < > 97 85 73 CA 11.9* -- 10.8* < > 9.7 < > 9.2 < > 8.8 8.9 8.7 MG -- -- 1.7 -- -- -- -- -- -- -- -- PO4 3.3 -- -- -- 2.1* -- 3.2 -- -- -- -- < > = values in this interval not displayed. Recent Labs 08/25/19 1512 08/25/19 2049 08/26/19 0420 AST 51* 41 40 ALT 19 16 17 TBILI 0.8 0.7 0.7 AP 87 82 83 ALB 2.4* 2.5* 2.4* TP 6.0* 5.7* 5.7* No results found for: FERRITIN No components found for: INR Lab Results Lab Test Name Results Date/Time APTT 23.3 08/25/19 FIBRINOGEN 488 08/25/[address] C/A/P on 08/23 IMPRESSION: 1. Redemonstrated left renal cell carcinoma with extensive venous collateralization, reflec ting previously seen left renal vein invasion not evaluated on today's noncontrast study. 2. Redemonstrated large confluent hepatic metastases. 3. Several right middle and lower lobe pulmonary nodules, concerning for metastases. 4. Progressive now 50% height loss of pathological L2 compression fracture. 5. Sequelae of remote mediastinal radiation/treated lymphoma seen in the lungs and mediasti nal nodes, as described. I have personally reviewed the images and, if necessary, edited the report. I agree with e report as now presented. Final signature: Tom Mercer MD 08/24/2019 12:00 PM Preliminary: Sara Stratton MD 08/24/2019 10:40 AM Dictation initiated: Sara Stratton MD 08/24/2019 7:[address] on 08/27 IMPRESSION: No acute intracranial abnormality. I have personally reviewed the images and, if necessary, edited the report. I agree with th e report as now presented. Final signature: Franky Howard MD 08/27/2019 9:57 AM Preliminary: Darby Larson DO Dictation initiated: Darby Larson DO 08/27/2019 7:06 AM Assessment: Hank Altman is a 54 y.o. femalewith pmh sig for Hodgkin's Lymphoma s/p CHOP + radiati on c/b iatrogenic hypothyroidism (on levothyroxine), who was recently diagnosed with left si ded clear cell renal carcinoma on 08/16 with metastasis to left renal vein (path done on ), liver, lungs, L2 lumbar spine with pathologic fracture who is admitted with hyperkalemi a, hypercalcemia, and renal insufficiency. Electrolyte derangements have resolved. However, she was transferred to ICU for hypotension w/o clear etiology, for which she is currently on midodrine 10mg TID (PE has not been ruled out yet). Recommendations: - Elevated UA could be due to JONO + malignancy. Low threshold to start rasburicase (when UA >10) --can check TLS panel BID for now, if they are stable, can check daily --please consult Rad Onc for L2 pathologic frx --Pt will see Dr Ortiz as outpt for possible clinical trial (Nivo+Ipi+ carbo) or standard tx (Nivo+ipi) We will continue to follow. The patient was staffed with my attending physician, Dr. Puga , who agrees with my assessme nt and recommendations as above or otherwise as noted in their addendum. Neda (Hitesh Gaines MD-PhD Hem/Onc Fellow, PGY4 Pager: [phone] signed by Richard Puga MD at 08/29/2019 6:40 PM PST Associated attestation - Richard Puga MD - 08/29/2019 6:40 PM PSTI interviewed and e xamined the patient with the resident and agree with the contents of the separate note. Plea se see resident's note for details. I personally formulated the plan for this patient. Hank Altman is a 54 y.o. female with metastatic renal cell carcinoma Main complaint is lower back pain. Denies neurologic symptoms States that she is asymptomatic from hypotension. Denies lightheadedness. Review of systems: MSK: low back pain GI: no nausea Psych: spirits good Exam: General: no apparent distress Respiratory: normal effort Psych: alert and oriented A/P Hank Altman is a 54 y.o. female with metastatic renal cell carcinoma Recommend Radiation Oncology consult to address back pain from pathologic compression fract ure . Local control of disease will be necessary in addition to kyphoplasty Patient has been seen by Dr. Ortiz and is being planned for +/- cabozantinib Najma Bryant MD - 08/28/2019 3:46 PM PSTI personally evaluated the patient, performed the gonsales elements of the physical examination, and personally formulated the assessment and plan with REDD Valencia. I have reviewed the written documentation and I agree with the f indings, assessment, advice, orders and plan as they are documented. Patients Hospital Problem List: Active Hospital Problems 1) *Hypercalcemia of malignancy 2) Renal cell adenocarcinoma (HCC) 3) Hyperkalemia 4) Hypothyroidism 5) Compression fracture of L2 vertebra (HCC) 6) Closed compression fracture of L2 lumbar vertebra, initial encounter (HCC) 7) 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) 54 yo W with history of Hodgkin's s/p CHOP and XRT c/b iatrogenic hypothyroidism, recent di agnosis of metastatic renal cell carcinoma (mets to L renal vein, liver, lungs, and L2 spine ) c/b L2 compression fracture and significant pain, who was admitted on 08/24 for hypercalce dom, hyperkalemia and asymptomatic hypotension, later requiring ICU transfer for shock of un clear etiology. Electrolyte derangements correcting nicely. Cause of her hypotension/shock i s still unclear. Current though is that this was due to MEHNAZ-I toxicity, however, she remains (asymptomatically) hypotensive with SBP 80-90s after transfer from ICU. Elevated RVSP on TT E, elevated D dimer (difficult to interpret in known malignancy), ?S1 with Q3T3 findings on EKG suggest PE as possible cause. LE dopplers are negative; would expect her to have some de gree of tachycardia with obstructive shock and it is interesting to point out her heart rate has not been above 105 this admission. In fact, heart fate has not wavered much despite aug mentation of her BP with pressors/fluids which makes me wonder about neurogenic causes. Othe r things to consider would be IVC infiltration from her mets causing obstructive picture- al though this was not demonstrated on her CT. Thus far, no indication of adrenal insufficiency or pituitary issues, although still have not been able to obtain MRI with contrast. As her renal function improves, will need to weight risk/benefits of CT-angio to confirm that she t andrea does not have PE. In meantime, moving forward with vertebroplasty to help with pain con trol tomorrow. Jo Ann Bryant MD Clinical Hospitalist [facility] Pager [phone] Shelli Arriaga PA - 08/28/2019 3:21 PM PST CLINICAL HOSPITALIST SERVICE PROGRESS NOTE Author: REDD Valencia Attending Physician: Najma Bryant MD Patient Name: [facility] Day: 4 Interval Events: - transferred from MICU to floor - weaned off pressors yesterday - continues midodrine 10mg TID - BP 80s/40s to 100s/70s, HR 70s - Endocrine consulted for ? Adrenal insufficiency - initial AM cortisol 10, started on 2mg dexamethasone daily - f/up cortisol stim test normal - pending pituitary MRI, prolactin, FSH, LH, IGF-1 - elevated RSVP 75.9 on ECHO, ? PE, on heparin ppx - K 5.0 -> 4.6, Ca 8.8 -> 8.9, iCa 1.25 - Cr 1.95 -> 1.76, BUN 38 -> 38 Subjective: Only complaint is lower back pain which is limiting mobility. Pain rated at 5-6/10, does no t radiate. No associated numbness, weakness, or saddle anesthesia. Interested in kyphoplasty /vertebroplasty for pain control. Hopeful to get it done while she is here. [facility] [address] is [address] and difficult due to pain. Feels her extremities are mildly edematous. No CP, palpitations, SOB. Good UOP. No h/o kidney disease that she know of. Had labs in March 2019 with her PCP which were reportedly normal. Vitals: Last Vitals: BP 104/53 | Pulse 72 | Temp 36.4 C (97.5 F) | Resp 16 | Ht 1.575 m (5' 2") | Wt 98.7 kg (217 lb 8 oz) | SpO2 99% | BMI 39.78 kg/m | BSA 2.08 m 24 Hour Vital Min/Max: Systolic (24hrs), Av , Min:85 , Max:107 Diastolic (24hrs), Av, Min:46, Max:77 Pulse Min: 72 Max: 90 Temp Min: 36.3 C (97.4 F) Max: 37 C (98.6 F) Resp Min: 16 Max: 26 SpO2 Min: 98 % Max: 100 % Intake/Output Summary (Last 24 hours) at 08/28/2019 0722 Last data filed at 08/28/2019 0025 Gross per 24 hour Intake 1410 ml Output 550 ml Net 860 ml Physical Exam: General: Non-toxic woman, sitting comfortably. Awake, NAD HEENT: AT/NC. Pupils equal. Sclera anicteric. MMM. Cardiovascular: RRR, nl S1/S2, grade I/VII systolic murmur in LLSB Respiratory: Breathing regular, unlabored on RA. CTAB Abdomen: obese, +BS, soft, non-tender, mild distention, no R/G Ext: wwp, 2+ pulses present bilaterally. Non-pitting peripheral edema. Skin: No rashes or lesions. Neuro: Grossly intact. No evidence of focal abnormality. BLE strength limited by pain. Sens ation intact. Psych: Affect appropriate Laboratory: CBC with diff last 72 hours (or 3 results) Recent Labs 08/26/19 0421 08/27/19 0437 08/28/19 0448 WBC 2.82* 2.99* 3.83 HB 9.6* 9.6* 9.5* HCT 32.2* 32.8* 30.5* PLT 129* 134* 142* NEUTROPERC 79.8* 69.5 70.3* LYMPHPERC 11.0* 19.1 17.2* MONOPERC 4.6 9.7* 9.4* BASOPERC 0.7 0.3 0.5 EOSPERC 3.5* 0.7* 2.1 Chemistries last 72 Hours (or 3 results): Recent Labs 08/25/19 1512 08/25/19 2049 08/26/19 0420 08/26/19 1032 08/27/19 0436 08/27/19 1026 08/27/19 2244 NA 137 < > 139 < > 139 138 < > 139 138 137 K 6.5* < > 5.6* < > 5.4* 5.2* < > 5.2* 5.1* 5.0 CL 116* < > 115* < > 115* 115* < > 114* 113* 112* BICARB 16* -- 19* < > 17* 17* < > 19* 19* 19* BUN 34* < > 32* < > 32* 29* < > 31* 35* 38* CR 1.93* < > 1.83* < > 1.85* 1.79* < > 2.01* 1.88* 1.95* CA 10.2 -- 10.1 < > 10.1 9.7 < > 9.2 8.9 8.8 PO4 -- -- -- -- -- 2.1* -- 3.2 -- -- AST 51* -- 41 -- 40 -- -- -- -- -- ALT 19 -- 16 -- 17 -- -- -- -- -- AP 87 -- 82 -- 83 -- -- -- -- -- TBILI 0.8 -- 0.7 -- 0.7 -- -- -- -- -- TP 6.0* -- 5.7* -- 5.7* -- -- -- -- -- ALB 2.4* -- 2.5* -- 2.4* -- -- -- -- -- < > = values in this interval not displayed. FSH - 53 LH - 34 Prolactin - 18 Cortisol stim test - baseline 6.1, 30.4 (30m), 38.4 (60m) Vit D - 5.6 (L) PTHrP - pending Microbiology: 08/24 Urine micro - 439 RBCs, otherwise normal Imaging: CT 08/27/[address] c/a/p 08/23/19 1. Redemonstrated left renal cell carcinoma with extensive venous collateralization, reflec ting previously seen left renal vein invasion not evaluated on today's noncontrast study. 2. Redemonstrated large confluent hepatic metastases. 3. Several right middle and lower lobe pulmonary nodules, concerning for metastases. 4. Progressive now 50% height loss of pathological L2 compression fracture. 5. Sequelae of remote mediastinal radiation/treated lymphoma seen in the lungs and mediasti nal nodes, as described TTE 08/26/19 1. The left ventricular size is normal. 2. The LV function is normal. 3. RV cavity size is mildly enlarged. RV wall thickness is mildly increased. RV global systolic function is normal. The estimated right ventricular systolic pressure is severely elevated (RVSP = 75.9 mmHg). 4. Mild aortic regurgitation. 5. Mild-moderate tricuspid regurgitation. 6. The tricuspid valve is thickened. No mobile echodensities are seen. 7. There are no prior exams available for comparison. BLE venous duplex 08/28/19 Conclusions: A normal venous examination of the bilateral lower extremities. No venous thro mbosis was detected. Assessment and Plan: Hank Altman is a 54 y/o F h/o Hodgkin's lymphoma s/p CHOP and XRT, hypothyroidism, rece ntly diagnosed metastatic RCC, initially admitted for hypotension, hypercalcemia and hyperka lemia, transferred to MICU on 08/26 for hypotension requiring pressor support, now stabilize d and transferring back to [facility] service. Problem List: Hypotension Present on admission, transferred to MICU on 08/26 for continued hypotension refractory to IVF. TTE in MICU with normal LV, mildly enlarged RV cavity, RVSP 75.9mmHg, mild AR, mild-mod TR. CVP ~13 per MICU sign-out. BP improved with pressor support and stress dose steroids in MICU, both weaned off though continues midodrine for BP support.Etiology unknown. Leading maya arguelles was 2/2 ACEi and BB at home with poor clearance in s/o JONO though would expect to see improvement by now. Considered PE in s/o elevated RSVP though RA hypertrophy suggests a mor e chronic picture. BLE venous dopplers normal. 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 Admis janice EKG with S1Q3T3 pattern. Unable to obtain CTA due to JONO. Interestingly she has a clarisa l HR despite soft pressures which could be caused by a BB but this should have cleared by no w even with JONO. Query if she has spinal mets causing cervical cord compression, though no n euro deficits. Will check orthostatics to evaluation sympathetic response. Combination of hy perK and hypotension prompted w/up for adrenal insuffiencey, though cosyntropin test with ro bust response. Adrenals unremarkable on CT. If adrenal sufficiency is contributing then it i s likely central from pituitary insult. Will obtain MRI Brain w/wo contrast with pituitary c uts if GFR permits. - continue to hold home Lisinopril and Atenolol - continue Midodrine 10mg Q8H - MRI Brain w/wo + pituitary cuts if able - check orthostatics Hypercalcemia of Malignancy - resolved Hypovitaminosis D Patient with calcium to 13.6 (after correction of albumin) on 08/24 laboratory studies high ly concerning for hypercalcemia of malignancy, with known pathologic lumbar fracture. Mare ent without significant symptom burden other than fatigue. Had received 3L IVF and pamidro kira prior to admission to hospital medicine service.PTH appropriately low, PTHrP pending. Calcium improved with continuous fluids, now stable off IVF. Oncology following. -daily CMP + iCa - follow-up PTHrp - continue vit D3 50,000iu q7d Acute Renal Injury ? Baseline CKD Hyperkalemia Multifactorial acute renal injury in setting of documented hypotension, decreased oral inta ke from malignancy, ongoing use of MEHNAZ inhibitor, progressive metastatic renal cell cancer a nd hypercalcemia. S/p IVF. Possible that she has some underlying CKD. Had Cr 1.51 on 07/27 w hich may be closer to her baseline. Had BMP in March which would be helpful to determine nursing education consultant nicity, awaiting records. - daily CMP - K restricted diet - requested labs from 03/2019 to determine baseline Cr (P:[phone] if no records by Massiel angelo) - continue to hold ACEi as above - avoid nephrotoxins Metastatic Clear Cell Carcinoma of Left Kidney c/b metastases to lumbar spine, liver, lungs , left renal vein Recently dx in 07/2019. L2 Lumbar Compression Fracture c/b severe low back pain Recent dx in 07/2019 of progressive metastatic clear cell carcinoma of left kidney and path ologic L2 compression fracture w/o evidence of radiographic cord compression or red flag sym ptoms on history. Per last outpatient Onc visit, planning to start ipilipumab/nivolulmab an d enroll in PEDIGREE trial, though needs to complete MRI Brain and bone scan prior. Onc cons ulted here. Mobility limited by pain, currently using walker. Have consulted neuroradiology for consideration of kyphoplasty/vertebroplasty, tentatively planned for tomorrow. - appreciate Oncology, Interventional Neuroradiology assistance - plan for L2 kyphoplasty/vertebroplasty tomorrow - NPO at midnight, hold ppx SC heparin - continue oxycodone5-10mg po q4h prn -IV HM 0.2mg q3h prn - aggressive bowelregimen -anti-nausea regimen - PT consult for safety eval prior to dischargeas mobility greatly limited by pain Non-anion gap, hyperchloremic metabolic acidosis Suspect dilutional acidosis in s/o large volume fluid resuscitation with NS. HCO3 improving . - trend HCO3, Cl Normocytic anemia Hb 11.9 / HCT 37.9 on admission, trending down. Likely dilutional, no evidence of active bl eed. Likely also component of ACD. -CTM Hyperuricemia Elevated LDH Suggestive of tumor lysis syndrome and recent CT noted large calcified mediastinal and righ t hilar lymph nodes favored to be sequelae of treated lymphoma. Currently asymptomatic. Will discuss with Onc tomorrow. - trend uric acid, LDH - consider allopurinol Hypothyroidism Patient with hx of Hodgkin's Lymphoma s/p mantle irradiation c/b iatrogenic hypothyroidism for which she takes home levothyroxine. With normal 03/2019 TSH. Repeat TSH 11.1 and FT4 at 1 .1. Pt was instructed to increase home dose from 125 -> 137mcg at last Onc appt. -[id number] daily. Pulmonary HTN TTE 08/26 w/ RVSP of 75, mildly thickened and dilated RV. No prior ECHO available for perez rison. RVSP raised concern for PE, though given RA hypertrophy this is more likely chronic. -stable on RA; CTM. FEN: Regular diet, low K and low Ca Prophy: Hold for upcoming procedure Code status: Full DISPO: Pending clinical course. I spent 45 minutes [id number] with the patient of which greater than 50% was spent counse ling the patient about hypotension, DVT/PE, adrenal insufficiency, in reviewing pertinent art notes/data, as well as coordination of care with Interventional Neuroradiology, nursing, and case management. Shelli Prescott PA-C Instructor of Medicine Clinical Hospitalist Service [facility] Pager [phone] hen, Celeste King MD - 1 10/28/2018 10:55 PM PST CLINICAL HOSPITALIST SERVICE PROGRESS NOTE PATIENT'S NAME/MRN: Hank Moncada [facility]/[id number] HOSPITAL DAY: #3 MICU Transfer Note INTERVAL EVENTS: Patient is 54 y/o female with history of Hodgkin's lymphoma s/p CHOP and XRT c/b post-radia tion hypothyroidism, recently diagnosed stage IV RCC c/b liver, lung, and osseous metastatic disease, initially admitted to [facility] service on 08/24 for hypotension, JONO, hypercalcemia, an d hyperkalemia (see H&P 08/24 for detailed HPI). Patient initially received IVF for hydr ation, but due to persistent hypotension was transferred to MICU on 08/26. In the MICU, patient was started on Levophed for pressor support, as well as stress dose st eroids Hydrocortisone 100mg and Dexamethasone given initial concern for adrenal insufficienc y given relatively low AM cortisol (10), hypotension, and hyperkalemia. Patient BP improved thereafter, patient was additionally started on Midodrine and was weaned off pressor. TTE sh owed normal LV, mildly enlarged RV cavity, RVSP 75.9mmHg, mild AR, mild-mod TR. Cosyntropin stim test was performed, 6.1->30.4->38.4. Endocrinology service was consulted, thought AI less likely given robust response, however considering potential acute pituitary dysfunctio n. Last vital signs T 36.4 HR 93 BP 107/57 and 99% RA. SUBJECTIVE: Still having back pain limiting mobility, otherwise denied CP, dyspnea, abd steph n. Encouraged that electrolyte abnormalities are improving, but most pressing concern for he r is still L2 fracture. Inpatient Medication list has been reviewed by me today. Current Facility-Administered Medications: acetaminophen (TYLENOL) tablet 1,000 mg, 1,000 m g, oral, TID, Yunier Velez MD, 1,000 mg at 08/27/192106 bisacodyl (DULCOLAX) suppository 10 mg, 10 mg, rectal, DAILY PRN, Yunier Velez MD, 10 mg at 08/26/19 0540 cholecalciferol (VITAMIN D3) capsule 50,000 Units, 50,000 Units, oral, Q7D, Sabine Gauthier DO, 50,000 Units at 08/27/19 0851 heparin injection 5,000 Units, 5,000 Units, subcutaneous, Q8H, Fadumo Caicedo MD, 5,000 Units at 08/27/19 2108 HYDROmorphone (DILAUDID) injection 0.2 mg, 0.2 mg, intravenous, Q3H PRN, Yunier Velez MD levothyroxine tablet 137 mcg, 137 mcg, oral, BEFORE BREAKFAST, REDD Valencia, 137 mc g at 08/27/19 0642 midodrine (PROAMITINE) tablet 10 mg, 10 mg, oral, Q8H, Madhav Ghotra MD, 10 mg at 08/27/192106 nystatin (MYCOSTATIN) ointment, , topical, BID, Edd Vasquez MD nystatin (MYCOSTATIN) powder, , topical, BID, Sabine Gauthier DO omeprazole (PRILOSEC) capsule 20 mg, 20 mg, oral, BID, Yunier Velez MD, 20 mg at 2107 ondansetron ODT (ZOFRAN ODT) tablet 4 mg, 4 mg, oral, Q8H PRN, Yunier Velez MD, 4 mg at 08/25/19 184 oxyCODONE (immediate release) (ROXICODONE) tablet 5-10 mg, 5-10 mg, oral, Q4H PRN, Yunier Velez MD, 10 mg at 08/27/192055 polyethylene glycol (MIRALAX) packet 17 g, 17 g, oral, TID PRN, Yunier Velez MD polyethylene glycol (MIRALAX) packet 17 g, 17 g, oral, DAILY, Charlie Graham MD, 17 g a t 08/27/19 0846 senna-docusate (SENOKOT S) 8.6-50 mg 2 tablet, 2 tablet, oral, BID, Sabine Gauthier, , 2 t ablet at 08/27/192107 OBJECTIVE: Last Vitals: BP 107/57 (BP Location: Right upper arm, Patient Position: Sitting) | Pulse 8 3 | Temp 36.4 C (97.5 F) (Oral) | Resp 16 | Ht 1.575 m (5' 2") | Wt 102.3 kg (225 lb 8.5 oz) | SpO2 99% | BMI 41.25 kg/m | BSA 2.12 m 24 Hour Vital Min/Max: Systolic (24hrs), Av , Min:82 , Max:117 Diastolic (24hrs), Av, Min:47, Max:65 Pulse Min: 77 Max: 90 Temp Min: 36.4 C (97.5 F) Max: 37 C (98.6 F) Resp Min: 16 Max: 31 SpO2 Min: 94 % Max: 99 % Intake/Output Summary (Last 24 hours) at 08/27/20192254 Last data filed at 08/27/2019 2100 Gross per 24 hour Intake 1618.4 ml Output 900 ml Net 718.4 ml PHYSICAL EXAMINATION: Gen: NAD HEENT: NC/AT CV: RRR Pulm: CTAB Abd: Soft, NT/ND Ext: WWP, no JENNIE Neuro: AxOx3, YESSENIA Skin: No rash LABS/IMAGING/EKG: I have reviewed new data available in the electronic medical record. Not able findings Include: Chemistries: Last 72 Hours (or 3 results) - Refreshable Recent Labs 08/25/19 0536 08/26/19 1032 08/27/19 0005 08/27/19 0436 08/27/19 1026 NA 142 < > 138 < > 140 139 138 K 5.2* < > 5.2* < > 5.5* 5.2* 5.1* CL 116* < > 115* < > 114* 114* 113* BICARB 22 < > 17* < > 18* 19* 19* BUN 36* < > 29* < > 34* 31* 35* EGFRAFRICAN 36* < > 35* < > 30* 31* 33* CR 1.78* < > 1.79* < > 2.06* 2.01* 1.88* GLU 88 < > 92 < > 106* 102* 116* CA 10.8* < > 9.7 < > 9.3 9.2 8.9 MG 1.7 -- -- -- -- -- -- PO4 -- -- 2.1* -- -- 3.2 -- < > = values in this interval not displayed. Liver Tests: Last 72 hours (or 3 results) Recent Labs 08/25/19 1512 08/25/19204808/26/19 0420 AST 51* 41 40 ALT 19 16 17 TBILI 0.8 0.7 0.7 AP 87 82 83 ALB 2.4* 2.5* 2.4* TP 6.0* 5.7* 5.7* CBC with diff last 72 hours (or 3 results) - Refreshable Recent Labs 08/25/19204908/26/19 0421 08/27/19 0437 WBC 2.69* 2.82* 2.99* HB 11.0* 9.6* 9.6* HCT 36.7 32.2* 32.8* PLT 108* 129* 134* NEUTROPERC 87.0* 79.8* 69.5 LYMPHPERC 6.3* 11.0* 19.1 MONOPERC 3.0* 4.6 9.7* BASOPERC 0.7 0.7 0.3 EOSPERC 2.6 3.5* 0.7* Lab Results Component Value Date INRPT 1.11 08/25/2019 ASSESSMENT/PLAN: 54 y/o F h/o Hodgkin's lymphoma s/p CHOP and XRT, hypothyroidism, recently diagnosed metast at RCC, initially admitted for hypotension, hypercalcemia and hyperkalemia, transferred to MICU on 08/26 for hypotension, stabilized now transferring back to [facility] service. Hypotension Present on admission, transferred to MICU on 08/26 for continued hypotension refractory to IVF. TTE in MICU with normal LV, mildly enlarged RV cavity, RVSP 75.9mmHg, mild AR, mild-mod TR. CVP ~13 per MICU sign-out. Cosyntropin stim test with robust cortisol response. Current ly suspect hypotension 2/2 multiple antihypertensives at home with poor clearance in s/o JONO ; unlikely cardiogenic/obstructive/hypovolemic. BP improved with pressor support and stress dose steroids in MICU, both weaned off. -continue to hold home Lisinopril and Atenolol. -continue Midodrine 10mg Q8H. -Endocrinology consulted in MICU, currently following pituitary labs, recommended adding pi tuitary protocol MRI when renal function improves (already ordered in MICU). Hypercalcemia of Malignancy Patient with calcium to 13.6 (after correction of albumin) on 08/24 laboratory studies high ly concerning for hypercalcemia of malignancy, with known pathologic lumbar fracture. Mare ent without significant symptom burden other than fatigue. Had received 3L IVF and pamidro kira prior to admission to hospital medicine service. PTH appropriately low. On Calcium tren ding down with continuous fluids. Oncology following. - appreciate Oncology consult - Ca downtrended to 10.1 (iCa 1.52) on 08/26 - telemetry - daily CMP + iCa - follow-up PTHrp and VD level. Acute Renal Injury Hyperkalemia Multifactorial acute renal injury in setting of documented hypotension, decreased oral inta ke from malignancy, ongoing use of MEHNAZ inhibitor, progressive metastatic renal cell cancer a nd hypercalcemia. S/p IVF. -K downtrended to 5.1 and Cr improved to 1.88. -continue to hold ACEi as above. Non-anion gap, hyperchloremic metabolic acidosis Suspect dilutional acidosis in s/o large volume fluid resuscitation with NS. -HCO3 improving to 19; no longer on IVF; recheck with AM labs. Normocytic anemia Hb 11.9 / HCT 37.9 on admission, trending down. Likely dilutional, no evidence of active bl eed. -CTM Metastatic Clear Cell Carcinoma of Left Kidney c/b metastases to lumbar spine, liver, lungs , left renal vein L2 Lumbar Compression Fracture c/b severe low back pain Patient with progressive metastatic clear cell carcinoma of left kidney and pathologic L2 c ompression fracture w/o evidence of radiographic cord compression or red flag symptoms on hi story. Ambulates with use of walker. Pain well controlled for 4-5 hours after administra tion of oxycodone 10mg oral which will be continued on admission. Referral sent for pallia tive XRT as outpatient, though she has been very painful here. - Oncology following; touch base in AM regarding plan for immunotherapy or other treatments (patient lives [place] away, would like to have infusions done closer to home, such as [facility]). - consider Rad Onc or MSK-IR consultation for L2 fx - continue oxycodone 5-10mg po q4h prn - IV HM 0.2mg q3h prn - aggressive bowel regimen - anti-nausea regimen - PT consult for safety eval prior to discharge as mobility greatly limited by pain Hypothyroidism Patient with hx of Hodgkin's Lymphoma s/p mantle irradiation c/b iatrogenic hypothyroidism for which she takes home levothyroxine. With normal 03/2019 TSH. Repeat TSH 11.1 and FT4 at 1 .1. Pt was instructed to increase home dose from 125 -> 137mcg at last Onc appt. -continue levothyroxine 137mcg daily. #Pulmonary HTN TTE 08/26 w/ RVSP of 75, mildly thickened and dilated RV. No prior ECHO available for perez og. -stable on RA; CTM. CODE status: Full Thromboembolic prophylaxis: [facility] Dispo plans: pending medical stability I spent 65 minutes in the care of this patient while on the medical unit today of which gre ater than 50% was spent counseling and coordinating care for the patient. Aliyah Cerda Division of Hospital Medicine Pager [phone] Madhav Downey MD - 08/27/2019 4:52 PM PST MICU Attending Note I have personally reviewed the history and physical with the MICU housestaff , confirmed the salient elements of the history and independently confirmed findings. I agree with the housestaff's assessment and have participated in the creation of the plan of care. No signficant overnight events. Started on midodrine overnight. Dx: 1)Assymptomaitc hypotension which has poorly fluid responsive. 2)Elevated RSVP by ECHO-hard to imagine this is acute and may be subject to estimation erro r 3)Cortisol which is difficult to interpret in this range in ICU patients-Mild hypoproteinem ia, modest eos%, etc but suspect free levels are quite adequate. That being said patient has had a signficant drop in NE requirements which bears some temporal relationship to empiric treatment 4)Metastatic Renal Cell Carinoma 5)Obesity Plan:Appears stable for floor. Continuing steroids in near term until Endocrine has weighed in. Continuing midodrine. Uncertain benefit to investigating suspected PHTPN. It appears th at this has been developing over sometime if numbers are as reported. And with her relativel y assymaptomatic status and more pressing issues would delay investigation unitl later date unless it appears to be interfering with other aspects of care I spent 35 minutes in the care and management of this patient who is ill Madhav Ghotra MD Division Pulmonary-Critical Care Medicine Mailcode [facility]-67 Pager [phone]/ [facility] DEPARTMENT: [facility], [facility]- [phone] Place of Service: - Date of Service: 08/27/2019 CSN: [id number] Modifiers: Resident Involved: yes abine Gauthier, DO - 1 10/28/2018 6:32 AM PST [facility] MEDICAL ICU - PROGRESS NOTE Hospital Day: 3 | ICU Day: 2 ID/CC: Hank Altman is a 54 y.o. woman w/ metastatic RCC admitted to the MICU for fluid refr actory hypotension. Patient's hospital course has been complicated by ongoing hyperkalemia, metabolic acidosis, hypotension with MAPs<65. Consultants: Oncology 24 Hour Events: - K trending down - Cr improving -Gave 100mg hydrocortisone x 1 with improvement in pressor requirement - UOP improved throughout the day -Started on 2mg dexamethasone for suspected adrenal insufficiency; plan to do stim test - CTH performed this AM to r/o pituitary lesion - Weaned off NE ~6 AM after starting Midodrine Q8H - ECHO yesterday EF 65-70%, RVSP 76, mild aortic regurg and mild-moderate tricuspid regurg. Subjective: Hank continues to be asymptomatic other than her usual low back pain. She denies dizzines s, lightheadedness, nausea, or abdominal pain. She has not had another bowel movement since yesterday morning, and has noticed a rash under her pannus for at least two weeks. It does n ot itch, but nicholson when it is wiped. Vital Signs: Cuff BP 96/52 (08/27/19 0500) | BP Min: 82/47 Max: 122/56 Cuff MAP 63 mmHg (08/27/19 0500) | BP Mean Min: 58 mmHg Max: 75 mmHg Art Line BP 84/59 (08/26/19 1800) | ART Line BP Min: 79/57 Max: 143/77 Art Line MAP 69 mmHg (08/26/19 1800) | ART Line BP Mean Min: 56 mmHg Max: 98 mmHg HR 87 (08/27/19499) | Pulse Min: 84 Max: 101 | Cardiac Rhythm: Normal Sinus Rhythm (399) Temp 36.4 C (97.6 F) (08/27/19399) | Temp Min: 36.4 C (97.6 F) Max: 37.2 C (9 9 F) RR 23 (08/27/19499) | Resp Min: 16 Max: 33 SpO2 96 % (08/27/19499) | SpO2 Min: 92 % Max: 98 % O2 Device None (room air) (08/27/19399) | Cam/RASS Most Recent Value Overall CAM-ICU Negative RASS Scale 0 CPOT Intake/Output Summary (Last 24 hours) at 08/26/19 0700 Last data filed at 08/26/19 0600 Gross per 24 hour Intake 566.33 ml Output 405 ml Net 161.33 ml Intake/Output Summary (since admission) at 08/24/191815 Last data filed at 08/26/19 0600 Gross for the last 2 days Intake 2566.33 ml Output 805 ml Net since Admission 1761.33 ml BMI: 41.3 Weights 102.3 kg (225 lb 8.5 oz) (08/25/192199) 94.6 kg (208 lb 8.9 oz) (08/24/191821) Admit Wt: 94.6 kg (208 lb 8.9 oz) Physical Exam: General: Pleasant woman, laying in bed in NAD HEENT: PERRLA, MMM, neck supple Card: RRR, no MRG Pulm: CTAB, no increased WOB Abd: BS+, NTND Ext: WWP, no LE edema Skin: Beefy red rash on suprapubic area without satellite lesions orblistering, does not ex tend beyond skin folds Neuro: CNII-XII grossly intact, moves all four extremities equally and spontaneously Psych: AOx3, calm and cooperative Laboratories: Recent Labs 08/25/19204808/25/19205508/26/19 1020 PH -- -- 7.33* PCO2 -- -- 34 PO2 -- -- 88 HCO3 -- -- 18* [id number] -- -- 419 VBGPH 7.28* 7.24* 7.29* VBGPCO2 45 47 42 VBGHCO3 20* 20* 20* Recent Labs 08/25/19 0532 08/25/19204908/26/19 0421 08/27/19 0437 WBC 3.94 -- 2.69* 2.82* 2.99* HB 10.3* < > 11.0* 9.6* 9.6* HCT 33.1* < > 36.7 32.2* 32.8* MCV 91.2 -- 92.2 91.5 90.4 PLT 113* -- 108* 129* 134* NEUTROPHILCO 3.48 -- 2.34 2.25 -- LYMPHSABS 0.21* -- 0.17* 0.31* -- MONOCYTECO 0.13 -- 0.08* 0.13 -- EOSCO 0.08 -- 0.07 0.10 -- BASOPHILCO 0.02 -- 0.02 0.02 -- IMGRANABS 0.02 -- 0.01 0.01 -- < > = values in this interval not displayed. Recent Labs 08/24/195 08/25/19 1835 INRPT 1.07 1.11 APTT -- 23.3* FIBRINOGEN -- 488* Recent Labs 08/24/19202208/25/19 0536 08/26/19 1032 08/26/19 1723 08/27/19 0005 08/27/19 0436 NA 138 < > 142 < > 138 138 140 139 K 5.5* < > 5.2* < > 5.2* 5.8* 5.5* 5.2* CL 111* < > 116* < > 115* 115* 114* 114* BICARB 23 -- 22 < > 17* 17* 18* 19* BUN 43* < > 36* < > 29* 32* 34* 31* CR 2.06* < > 1.78* < > 1.79* 1.82* 2.06* 2.01* CA 11.9* -- 10.8* < > 9.7 9.6 9.3 9.2 MG -- -- 1.7 -- -- -- -- -- PO4 3.3 -- -- -- 2.1* -- -- -- ANIONGAP 4 -- 4 < > 6 6 8 6 < > = values in this interval not displayed. Recent Labs 08/26/19 1016 08/26/19 1032 08/26/19 1723 08/27/19 0005 08/27/19 0436 GLU 81 92 117* 106* 102* Recent Labs 08/25/19 1512 08/25/19 2049 08/26/19 0420 AST 51* 41 40 ALT 19 16 17 TBILI 0.8 0.7 0.7 AP 87 82 83 ALB 2.4* 2.5* 2.4* TP 6.0* 5.7* 5.7* Recent Labs 08/25/19 1835 08/25/19 2049 08/25/19 2054 08/25/19 2056 08/26/19 0420 LACTICACID 0.9 1.2 -- 0.9 -- TROPONIN -- -- <0.02 -- <0.02 Lab Orders - In Process (From admission to next 24h) Start Ordered 08/26/19 0500 PTH RELATED PEPTIDE, PLASMA TOMORROW AM 08/25/19 1650 08/26/19 0500 VITAMIN D, 25-HYDROXY, SERUM TOMORROW AM 08/25/19 1650 08/26/19 0500 CORTISOL, SERUM TOMORROW AM 08/25/19 1843 08/24/19 1819 RAINBOW HOLD, CORE PANEL (RAINBOW AND BLOOD BANK HOLD (Inpatient)) ONCE 08/24/19 1820 Microbiology: None Imaging: CT H 08/27/[address] c/a/p 08/23/19 IMPRESSION: 1. Redemonstrated left renal cell carcinoma with extensive venous collateralization, reflec ting previously seen left renal vein invasion not evaluated on today's noncontrast study. 2. Redemonstrated large confluent hepatic metastases. 3. Several right middle and lower lobe pulmonary nodules, concerning for metastases. 4. Progressive now 50% height loss of pathological L2 compression fracture. 5. Sequelae of remote mediastinal radiation/treated lymphoma seen in the lungs and mediasti nal nodes, as described. EKG/Echocardiogram: ECHO 08/26 1. The left ventricular size is normal. 2. The LV function is normal. 3. RV cavity size is mildly enlarged. RV wall thickness is mildly increased. RV global systolic function is normal. The estimated right ventricular systolic pressure is severely elevated (RVSP = 75.9 mmHg). 4. Mild aortic regurgitation. 5. Mild-moderate tricuspid regurgitation. 6. The tricuspid valve is thickened. No mobile echodensities are seen. 7. There are no prior exams available for comparison. Sinus rhythm, R 93, QTc 420 Current Facility-Administered Medications Medication Dose Route Frequency Last Rate norepinephrine (LEVOPHED) 8mg/250 mL (0.032 mg/mL) IV infusion (RTU) 0.02-0.2 mcg/kg/m in (Dosing Weight) intravenous CONTINUOUS 0.01 mcg/kg/min (08/27/19 0400) Current Facility-Administered Medications Medication Dose Route Frequency Last Rate acetaminophen (TYLENOL) tablet 1,000 mg 1,000 mg oral TID dexamethasone (DECADRON) injection 2 mg 2 mg intravenous DAILY heparin injection 5,000 Units 5,000 Units subcutaneous Q8H levothyroxine tablet 137 mcg 137 mcg oral BEFORE BREAKFAST midodrine (PROAMITINE) tablet 10 mg 10 mg oral Q8H omeprazole (PRILOSEC) capsule 20 mg 20 mg oral BID polyethylene glycol (MIRALAX) packet 17 g 17 g oral DAILY senna-docusate (SENOKOT S) 8.6-50 mg 2 tablet 2 tablet oral BID Current Facility-Administered Medications Medication Dose Route Frequency Last Rate bisacodyl (DULCOLAX) suppository 10 mg 10 mg rectal DAILY PRN HYDROmorphone (DILAUDID) injection 0.2 mg 0.2 mg intravenous Q3H PRN ondansetron ODT (ZOFRAN ODT) tablet 4 mg 4 mg oral Q8H PRN oxyCODONE (immediate release) (ROXICODONE) tablet 5-10 mg 5-10 mg oral Q4H PRN polyethylene glycol (MIRALAX) packet 17 g 17 g oral TID PRN Hank Agapito is a 54 y.o. woman w/ h/o Hodgkin's lymphoma s/p CHOP/radiation and recent diag nosis of RCC w/ metastasis who is admitted to the MICU for hypotension despite IVF resuscita tion. Cardiovascular #Hypotension Patient is warm and well perfused w/ intact distal pulses, initially with poor UOP, now imp roved. She has not been responsive to IVF and now has iatrogenic metabolic acidosis from NS. CVP now ~13, not likely volume down. Highest on differential is poor ACEi clearance in the setting of JONO (likely secondary to poor po intake recently) vs possible adrenal insufficien cy vs RTA. PE seems less likely d/t lack of significant tachycardia and other symptoms, thou gh did have epigastric/substernal chest pain during hypotension. Due to possible RV dilation on bedside ECHO and high risk for PE w/ active malignancy, TTE ordered and showed elevated R sided pressures, however given RA hypertrophy is more likely chronic. Troponin negative. L actate negative, will CTM for now. Has not needed pressors since 6AM 08/27 and has remained asymptomatic. Endocrinology consult placed, see below. -Midodrine 10mg Q8H -Await endo recs #Pulmonary HTN ECHO done 08/26 w/ RVSP of 75, mildly thickened and dilated RV, likely subacute to chronic. No prior ECHO available for comparison. Possibly due to prior radiation for Hodgkin's lymph adamaris, however as patient is fairly asymptomatic (on room air, no difficulty ambulating) will defer further workup and prioritize oncologic management. / Renal #JONO Unknown baseline creatinine. Cr has improved from 2.12->1.85 since admission, but w/ the am ount of IVF she has received, would expect to have more improvement if pre-renal. UOP has im proved significantly. -Trend BMP #Hypercalcimia of malignancy Received bisphosphonate (pamidronate) in heme/onc clinic prior to admission, thus should co ntinue to see improvement in Ca. PTH 12/19 low at 7, Vit D low at 5.6. Will need to follow up for monthly pamidronate. -Trend iCal -Consider calcitonin if worsening Ca >14 -F/u PTHrp -Vit D 50,000U monthly #Hyperkalemia #Mixed hyperchloremic non-anion gap metabolic acidosis C/f hypoaldosteronism/Type 4 RTA 2/2 ACEi vs adrenal insufficiency. K >6 on admission w/o EKG changes. Down to 5.6 after IVF. Urine studies were significant for a positive gap and pH>6. Although may be d/t circulatin g ACEi and has been improving with improving UOP. She has not had recent heparin or steroid exposure, and adrenal glands are intact on recent CT. She showed significant improvement in pressor requirements after 100mg hydrocortisone; switched to dexamethasone for possible stim test. - Endocrinology consulted, appreciate expertise - 2mg dexamethasone daily -Shift for K >5.5 -Trend BMP -Aggressive bowel regimen Neurological #Severe low back pain in s/o pathologic fracture Heme/onc clinic note suggested admission for IR consult for vertebroplasty/kyphoplasty of L 2 vertebral fracture and RT consult. -Oxycodone 10mg q4h PRN, dilaudid 0.2mg q2h PRN -Consider IR, RT when HD stable Hematology / Oncology #Metastatic renal clear cell carcinoma From follow-up OV with hem/onc 08/22, discussed enrollment in PEDIGREE trial which would in volve tx with ipilipumab/nivolumab, but per patient, deferred d/t abnormal lab work. Oncolo gy following, appreciate recs. #Normocytic anemia Likely ACD in s/o malignancy. No s/s bleeding. -Trend CBC GI / Nutrition #Transaminitis Mild LFT elevation on admission w/ LD 387, normal T bili, now improved. Initially some conc merlin for underlying portal vein thrombosis vs hepatic capsule stretch given epigastric reprod ucible pain on exam; now normalized. #Constipation Last BM was Thursday. S/p senna and one dose of miralax. May be difficult to achieve BM in s/ o hypercalcemia and opioids. -Aggressive bowel regimen Endocrine #Hypothyroidism Iatrogenic after radiation for Hodgkin's lymphoma. Last TSH 11.9 during this admission on 10/26 (previously wnl 03/2019), thus levothyroxine was up-titated from 125 to 137mcg. -Continue levothyroxine 137mcg Respiratory No acute concerns. Consider pulmonary edema in s/o IVF if she becomes hypoxic. Infectious Disease #Candidal infection Under pannus, no s/s of cellulitis -Miconazole prn Present on admission Acute non-oliguric kidney injury Acute hyperkalemia Feeding: PO diet (renal diet) Analgesia: Acetaminophen, Oxycodone and Hydromorphone Sedation: None (RASS Goal 0 (alert and calm)) Thromboprophylaxis: LMWH SC Head of Bed: Ad radha Ulcer Prophylaxis: PPI Glycemic control: BS controlled < 180, insulin not indicated Mobility Goal: Ambulate Lines/Tubes/Drains/Airways: PIVs Code Status Code Status Full Code Surrogate Decision Maker Documentation: Surrogate Decision Maker Primary Surrogate Decision Maker William Talavera sister [phone] Secondary Surrogate Decision Maker Amada Manzanares sister This patient was staffed with Dr. Ghotra, attending physician. Sabine Gauthier DO 08/26/2019, 6:51 AM Template created by [employer] 2017 Madhav Downey MD - 1 10/27/2018 6:20 PM PST MICU Attending Note I have personally reviewed the history and physical with the MICU housestaff , confirmed the salient elements of the history and independently confirmed findings. I agree with the housestaff's assessment and have participated in the creation of the plan of care. On 0.1 of NE this am. Looks and feels well. Labs notable for random cortisol of 10.5 wit h albumin in the mid 2s. Modes eos% and hypercalcemia thought all due to tumor. Adrenals no rmal on recent CT. No recent exogenous steroids that I can find. K+ slowly coming down on AC EI as OP and Creatinine elevated. Also, started on heparin yesterday ECHO: the estimated right ventricular systolic pressure is severely elevated at 75.9 mmHg. Right Ventricle: Right ventricular cavity size is mildly enlarged. RV wall thickness is mildly increased. The RV global systolic function is normal. Prominent RV moderator band . TAPSE measures 1.9cm. Dx: 1)Assymptomaitc hypotension which has poorly fluid responsive. 2)Elevated RSVP by ECHO-hard to imagine this is acute and may be subject to estimation erro r 3)Cortisol which is difficult to interpret in this range in ICU patients-Mild hypoproteinem ia, modest eos%, etc but suspect free levels are quite adequate. That being said patient has had a signficant drop in NE requirements which bears some temporal relationship to empiric treatment 4)Metastatic Renal Cell Carinoma 5)Obseity Plan:Decadron in anticipation of later testing. Wean NE as tolerated. Estimates of RVSP con fusing in this circumstance. Acute increases to this level are generally not well tolerated, not asymptomatic, and don't improve without therapy directed at lowering PAP, etc. Would fa vor a more physiologic fluid for ongoing IV expansion due to the HCMA. I spent 35minutes in the care and management of this patient who is critically ill Madhav Ghotra MD Division Pulmonary-Critical Care Medicine Mailcode [facility]-67 Pager [phone]/ [facility] DEPARTMENT: [facility], [facility]- [phone] Place of Service: [facility] Date of Service: 08/26/2019 CSN: [id number] Modifiers: Resident Involved: yes erri Sosa - 08/08 9:05 AM PSTTransthoracic echocardiogram completed. Final report to follow. abine Gauthier DO - 6:51 AM PST [facility] MEDICAL ICU - PROGRESS NOTE Hospital Day: 2 | ICU Day: 1 ID/CC: Hank Altman is a 54 y.o. woman w/ metastatic RCC admitted to the MICU for fluid refr actory hypotension. Patient's hospital course has been complicated by ongoing hyperkalemia, metabolic acidosis, hypotension with MAPs<65, unclear urine output, despite aggressive IVF r esuscitation with clinical signs of volume overload at time of assessment. Consultants: Oncology 24 Hour Events: - Admitted for pressor support after prolonged episode of chest pain iso MAP <60 - A-line and central line placed - Noted to have poor UOP despite aggressive fluid resuscitation and pressor support Subjective: Hank continues to be asymptomatic other than her usual low back pain. She denies dizzines s, lightheadedness, nausea, or abdominal pain. She had a small bowel movement and urinated i n the commode this morning. Vital Signs: Cuff BP 92/47 (08/26/19 0015) | BP Min: 79/49 Max: 118/52 Cuff MAP 60 mmHg (08/26/19 0015) | BP Mean Min: 54 mmHg Max: 78 mmHg Art Line BP 92/47 (08/26/1945) | ART Line BP Min: 69/44 Max: 124/53 Art Line MAP 63 mmHg (08/26/19644) | ART Line BP Mean Min: 50 mmHg Max: 75 mmHg HR 94 (08/26/19644) | Pulse Min: 89 Max: 103 | Temp 37 C (98.6 F) (08/26/19 0000) | Temp Min: 36.9 C (98.4 F) Max: 37.1 C (98. 8 F) RR 24 (08/26/19644) | Resp Min: 15 Max: 31 SpO2 94 % (08/26/19644) | SpO2 Min: 92 % Max: 100 % O2 Device None (room air) (08/25/19 1800) | Cam/RASS Most Recent Value Overall CAM-ICU Negative RASS Scale 0 CPOT Intake/Output Summary (Last 24 hours) at 08/26/19 0700 Last data filed at 08/26/19 0600 Gross per 24 hour Intake 566.33 ml Output 405 ml Net 161.33 ml Intake/Output Summary (since admission) at 08/24/19 181 Last data filed at 08/26/19 0600 Gross for the last 2 days Intake 2566.33 ml Output 805 ml Net since Admission 1761.33 ml BMI: 41.3 Weights 102.3 kg (225 lb 8.5 oz) (08/25/192199) 94.6 kg (208 lb 8.9 oz) (08/24/191821) Admit Wt: 94.6 kg (208 lb 8.9 oz) Physical Exam: General: Pleasant woman, laying in bed in NAD HEENT: PERRLA, MMM, neck supple Card: RRR, no MRG Pulm: CTAB, no increased WOB Abd: BS+, NTND Ext: WWP, no LE edema Skin: No visible rashes or lesions Neuro: CNII-XII grossly intact, moves all four extremities equally and spontaneously Psych: AOx3, calm and cooperative Laboratories: Recent Labs 08/25/19183408/25/19204819/19 2056 VBGPH 7.30* 7.28* 7.24* VBGPCO2 40 45 47 VBGHCO3 19* 20* 20* Recent Labs 08/25/19 0532 08/25/19170708/25/19204908/26/19 0421 WBC 3.94 -- 2.69* 2.82* HB 10.3* 8.8* 11.0* 9.6* HCT 33.1* 26* 36.7 32.2* MCV 91.2 -- 92.2 91.5 PLT 113* -- 108* 129* NEUTROPHILCO 3.48 -- 2.34 2.25 LYMPHSABS 0.21* -- 0.17* 0.31* MONOCYTECO 0.13 -- 0.08* 0.13 EOSCO 0.08 -- 0.07 0.10 BASOPHILCO 0.02 -- 0.02 0.02 IMGRANABS 0.02 -- 0.01 0.01 Recent Labs 08/24/19223408/25/19 1835 INRPT 1.07 1.11 APTT -- 23.3* FIBRINOGEN -- 488* Recent Labs 08/24/19202208/25/19 0536 08/25/19204808/26/19 0023 08/26/19 0420 NA 138 < > 142 < > 139 140 139 K 5.5* < > 5.2* < > 5.6* 5.7* 5.4* CL 111* < > 116* < > 115* 117* 115* BICARB 23 -- 22 < > 19* 19* 17* BUN 43* < > 36* < > 32* 33* 32* CR 2.06* < > 1.78* < > 1.83* 1.85* 1.85* CA 11.9* -- 10.8* < > 10.1 9.9 10.1 MG -- -- 1.7 -- -- -- -- PO4 3.3 -- -- -- -- -- -- ANIONGAP 4 -- 4 < > 5 4 7 < > = values in this interval not displayed. Recent Labs 08/25/19 1512 08/25/19170708/25/19204808/26/19 0023 08/26/19 0419 08/26/19 0420 08/26/19 0516 GLU 78 89 84 89 82 90 84 Recent Labs 08/25/19 0536 08/25/19 1512 08/25/192048 AST 36 51* 41 ALT 16 16 TBILI 0.6 0.8 0.7 AP 81 87 82 ALB 2.4* 2.4* 2.5* TP 5.7* 6.0* 5.7* Recent Labs 08/25/19 1835 08/25/19204808/25/19205308/25/19205508/26/19 0420 LACTICACID 0.9 1.2 -- 0.9 -- TROPONIN -- -- <0.02 -- <0.02 Lab Orders - In Process (From admission to next 24h) Start Ordered 08/26/19 0500 PTH RELATED PEPTIDE, PLASMA TOMORROW AM 08/25/19 1650 08/26/19 0500 VITAMIN D, 25-HYDROXY, SERUM TOMORROW AM 08/25/19 1650 08/26/19 0500 CORTISOL, SERUM TOMORROW AM 08/25/19 1843 08/24/19 1819 RAINBOW HOLD, CORE PANEL (RAINBOW AND BLOOD BANK HOLD (Inpatient)) ONCE 08/24/19 1820 Microbiology: None Imaging: CT c/a/p 08/23 IMPRESSION: 1. Redemonstrated left renal cell carcinoma with extensive venous collateralization, reflec ting previously seen left renal vein invasion not evaluated on today's noncontrast study. 2. Redemonstrated large confluent hepatic metastases. 3. Several right middle and lower lobe pulmonary nodules, concerning for metastases. 4. Progressive now 50% height loss of pathological L2 compression fracture. 5. Sequelae of remote mediastinal radiation/treated lymphoma seen in the lungs and mediasti nal nodes, as described. EKG/Echocardiogram: Sinus rhythm, R 93, QTc 420 Current Facility-Administered Medications Medication Dose Route Frequency Last Rate norepinephrine (LEVOPHED) 8mg/250 mL (0.032 mg/mL) IV infusion (RTU) 0.02-0.2 mcg/kg/m in (Dosing Weight) intravenous CONTINUOUS 0.1 mcg/kg/min (08/26/19 3155) Current Facility-Administered Medications Medication Dose Route Frequency Last Rate acetaminophen (TYLENOL) tablet 1,000 mg 1,000 mg oral TID enoxaparin (LOVENOX) injection 40 mg 40 mg subcutaneous QPM levothyroxine tablet 137 mcg 137 mcg oral BEFORE BREAKFAST lidocaine PF (XYLOCAINE MPF) 20 mg/mL (2 %) injection omeprazole (PRILOSEC) capsule 20 mg 20 mg oral BID polyethylene glycol (MIRALAX) packet 17 g 17 g oral DAILY senna-docusate (SENOKOT S) 8.6-50 mg 1 tablet 1 tablet oral BID Current Facility-Administered Medications Medication Dose Route Frequency Last Rate bisacodyl (DULCOLAX) suppository 10 mg 10 mg rectal DAILY PRN HYDROmorphone (DILAUDID) injection 0.2 mg 0.2 mg intravenous Q3H PRN ondansetron ODT (ZOFRAN ODT) tablet 4 mg 4 mg oral Q8H PRN oxyCODONE (immediate release) (ROXICODONE) tablet 5-10 mg 5-10 mg oral Q4H PRN polyethylene glycol (MIRALAX) packet 17 g 17 g oral TID PRN Hank Altman is a 54 y.o. woman w/ h/o Hodgkin's lymphoma s/p CHOP/radiation and recent diag nosis of RCC w/ metastasis who is admitted to the MICU for hypotension despite IVF resuscita tion. Cardiovascular #Hypotension #C/f PE Asymptomatic. Patient is warm and well perfused w/ intact distal pulses, however UOP has be en poor (though creatinine overall improved from admission). She has not been responsive to IVF and now has iatrogenic metabolic acidosis from NS. Highest on differential is poor ACEi clearance in the setting of JONO (likely secondary to poor po intake recently) vs possible ad renal insufficiency vs RTA. PE seems less likely d/t lack of significant tachycardia and oth er symptoms, though did have epigastric/substernal chest pain during hypotension, possible R V dilation on bedside ECHO and is high risk for PE w/ active malignancy, TTE ordered. D-dime r of 1.60 is not unsurprising in s/o malignancy, but would have been very helpful in avoidin g contrast studies if negative. Troponin negative. Lactate negative, will CTM for now. -A-line, CVC placed -NE for MAP >60 -TTE -F/u cortisol -100mg IV hydrocortisone empirically - CVP to r/o hypovolemia / Renal #JONO Unknown baseline creatinine. Cr has improved from 2.12->1.85 since admission, but w/ the am ount of IVF she has received, would expect to have more improvement if pre-renal. -Trend BMP #Hypercalcimia of malignancy Received bisphosphonate (pamidronate) in heme/onc clinic prior to admission, thus should co ntinue to see improvement in Ca. PTH 08/25 low at 7. Will need to follow up for monthly pamidronate. -Trend iCal -Consider calcitonin if worsening Ca >14 -F/u PTHrp #Hyperkalemia >6 on admission w/o EKG changes. Down to 5.6 after IVF. May be d/t RTA (as patient is hyperchloremic w/ mild NAGMA): Urine studies were significant for a positive gap and pH>6. Although may be d/t circulating ACEi. May improve with BM as w ell. -Shift for K >5.5 -Trend BMP -Aggressive bowel regimen #Mixed hyperchloremic non-anion gap metabolic acidosis Iatrogenic in s/o NS. -Hold further NS Neurological #Severe low back pain in s/o pathologic fracture Heme/onc clinic note suggested admission for IR consult for vertebroplasty/kyphoplasty of L 2 vertebral fracture and RT consult. -Oxycodone 10mg q4h PRN, dilaudid 0.2mg q2h PRN -Consider IR, RT when HD stable Hematology / Oncology #Metastatic renal clear cell carcinoma From follow-up OV with hem/onc 08/22, discussed enrollment in PEDIGREE trial which would in volve tx with ipilipumab/nivolumab, but per patient, deferred d/t abnormal lab work. Oncolo gy following, appreciate recs. #Normocytic anemia Likely ACD in s/o malignancy. No s/s bleeding. -Trend CBC GI / Nutrition #Transaminitis Mild LFT elevation on admission w/ LD 387, normal T bili, now improved. Initially some conc merlin for underlying portal vein thrombosis vs hepatic capsule stretch given epigastric reprod ucible pain on exam; now normalized. #Constipation Last BM was Thursday. S/p senna and one dose of miralax. May be difficult to achieve BM in s/ o hypercalcemia and opioids. -Aggressive bowel regimen Endocrine #Hypothyroidism Iatrogenic after radiation for Hodgkin's lymphoma. Last TSH 11.9 during this admission on 10/26 (previously wnl 03/2019), thus levothyroxine was up-titated from 125 to 137mcg. -Continue levothyroxine 137mcg Respiratory No acute concerns. Consider pulmonary edema in s/o IVF if she becomes hypoxic. Infectious Disease No acute concerns. Present on admission Acute non-oliguric kidney injury Acute hyperkalemia Feeding: PO diet (renal diet) Analgesia: Acetaminophen, Oxycodone and Hydromorphone Sedation: None (RASS Goal 0 (alert and calm)) Thromboprophylaxis: LMWH SC Head of Bed: Ad radha Ulcer Prophylaxis: PPI Glycemic control: BS controlled < 180, insulin not indicated Mobility Goal: Ambulate Lines/Tubes/Drains/Airways: PIVs Code Status Code Status Full Code Surrogate Decision Maker Documentation: Surrogate Decision Maker Primary Surrogate Decision Maker William Talavera sister [phone] Secondary Surrogate Decision Maker Amada Manzanares sister This patient was staffed with Dr. Ghotra, attending physician. Sabine Gauthier DO 08/26/2019, 6:51 AM Template created by [employer] 2017 harlie Portillo MD - 08/25/2019 11:27 PM PSTAttending Attestation: I have seen and examined the patient personally, and have reviewed and revised (when necess sukhwinder) the note by the housefellow. Hank Chang is a 54 y.o. woman with a history of RCC, hodgkins L s/p CHOP + Rads w ith recent RCC diagnosis 07/27/19 who presented with asymptomatic hypotension at infusion ce nter. Overnight events: - Failed to respond to fluids - remains fairly asympatomic Diagnoses: - Favor HyperCa -> JONO -> Mehnaz-I toxicity -> hyper K -> hypotension - POCUS reveals ?elevated R heart size - > D-dimer + echo - Plan: Neuro/Psych: - Pain, treated with PRN Oxy + hydomoprhone Cardiovascular: - Hypotension: ?mehnaz-I toxicity, ?PE - Place a-line, consider pressors if persistently abnormal. - formal echo pending Respiratory: - No issues GI/Nutrition: - Constipated; will treat with aggressive OBR Renal/Metabolic/Endocrine: - JONO (unclear chronicity) - May be caused by hyperCa, treat underlying cause, trending Cr , has already been hydrated, - hyperK - monitoring, may improve with BM - hyper Ca - s/p pamidronate - NAGMA Infectious Diseases: - No active issues Heme/Onc/Rheum: - D-dimer - PTHrP pending Daily Goals: - renal diet I spent 20 minutes providing critical care services to this complex patient, which includes reviewing medical records, imaging, and laboratory results, speaking with primary and/or ot her product safety consultant teams. Charlie Portillo MD Compliance Specialistdisaster recovery manager [facility] Division of Pulmonary & Critical Care Medicine Pager: [phone] troup, Yunier Peña MD - 08/25/2019 8:13 PM PST Addendum: Have spoken with MICU who will accept patient in setting of progressive hypotension. Below includes transfer summary to MICU with problem list of active medical issues. Yunier Velez MD Compliance Specialist, Department of Hospital Medicine Perioperative Medicine Clinic, Clinical Hospitalist & Medical Teaching Services [facility] [place] Pager [phone] 08/25/2019 9:00 PM [facility] Early Breastfeeding Care Specialist Progress Note: Events prior to note: -was called to bedside by RN for chest pain lasting greater than 40 minutes in setting of p ersistent hypotension and MAPS < 60. -Patient's blood pressure had been incorrectly monitored with size 11 cuff during day with recent transition to size 12 an hour prior to my assessment -low urine output (not strictly tabulated in ED, with UOP x2) despite continuous NS @ 200ml /h -patient had not been receiving oxycodone due to concerns of nursing staff with hypotension Subjective: Patient continues with severe low back pain, increasing moderate substernal / epigastric di scomfort associated with diaphoresis and mild increased work of breathing. Last Vitals: BP (!) 97/40 | Pulse 95 | Temp 36.9 C (98.4 F) (Oral) | Resp (!) 21 | Ht 1.575 m (5' 2.01") | Wt 94.6 kg (208 lb 8.9 oz) | SpO2 100% | BMI 38.14 kg/m | BSA 2.03 m 24 Hour Vital Min/Max: Systolic (24hrs), Av , Min:79 , Max:118 Diastolic (24hrs), Av, Min:40, Max:67 Pulse Min: 90 Max: 100 Temp Min: 36.3 C (97.3 F) Max: 36.9 C (98.4 F) Resp Min: 15 Max: 35 SpO2 Min: 93 % Max: 100 % Intake/Output Summary (Last 24 hours) at 08/25/20192014 Last data filed at 08/25/2019 1758 Gross per 24 hour Intake 2500 ml Output 775 ml Net 1725 ml Speaking in sentences, cooperative with examination, diaphoretic JVP to jaw line at time of evaluation Nl s1 and s2 without r/c/g, 1+ radial pulse, cool extremities CTAB no w/r/r Epigastric tenderness to palpation, decreased bowel sounds, TTP in lumbar spine Bilateral lower extremity nonpitting edema Full strength / sensation, no expressive or receptive lanuage deficits Chemistries: Last 72 Hours (or 3 results) - Refreshable VB.30 / 40 / 57 / 19 / lactate 0.9 Recent Labs 08/24/19202208/25/19 0536 08/25/19 1512 08/25/19 1702 08/25/19 1708 NA 138 < > 142 137 -- 137 K 5.5* < > 5.2* 6.5* 5.7* 5.6* CL 111* < > 116* 116* -- 113.0* BICARB 23 -- 22 16* -- -- BUN 43* < > 36* 34* -- 30* EGFRAFRICAN 30* -- 36* 32* -- -- CR 2.06* < > 1.78* 1.93* -- 2.0* GLU 105* < > 88 78 -- 89 CA 11.9* -- 10.8* 10.2 -- -- MG -- -- 1.7 -- -- -- PO4 3.3 -- -- -- -- -- < > = values in this interval not displayed. Liver Tests: Last 72 hours (or 3 results) Recent Labs 08/24/19202208/25/19 0536 08/25/19 1512 AST 44* 36 51* ALT 23 16 19 TBILI 0.6 0.6 0.8 AP 108* 81 87 ALB 2.9* 2.4* 2.4* TP 6.8 5.7* 6.0* CBC with diff last 72 hours (or 3 results) - Refreshable Recent Labs 08/23/19 1202 08/24/19 1938 08/24/19 2212 08/25/19 0532 08/25/19 1708 WBC 4.01 3.23* -- 3.94 -- HB 11.9* 11.6* 10.2* 10.3* 8.8* HCT 37.9 37.5 30* 33.1* 26* PLT 157 141* -- 113* -- NEUTROPERC 77.6* 71.5* -- 88.4* -- LYMPHPERC 10.5* 15.8* -- 5.3* -- MONOPERC 8.0 8.7 -- 3.3* -- BASOPERC 0.7 0.9 -- 0.5 -- EOSPERC 2.7 2.8 -- 2.0 -- 08/24 TSH 11.9, Free T4: 1.1 08/24 PTH < 7 08/24 INR 1.07, aptt 23.3, fibrinogen 488 08/24 LDH 387, uric acid 11.2 08/24 Urine microscopic 439 rbcs Cardiology Studies: 08/25/19:53 EKG: normal sinus rhythm rate 96, normal intervals, left axis deviation, with t wave inversions AVF, V1, no overt ischemia or changes from admission EKG Imaging Studies: 08/23/2019 CT of chest abdomen and pelvis wo iv contrast: 1. Redemonstrated left renal cell carcinoma with extensive venous collateralization, reflec ting previously seen left renal vein invasion not evaluated on today's noncontrast study. 2. Redemonstrated large confluent hepatic metastases. 3. Several right middle and lower lobe pulmonary nodules, concerning for metastases. 4. Progressive now 50% height loss of pathological L2 compression fracture. 5. Sequelae of remote mediastinal radiation/treated lymphoma seen in the lungs and mediasti nal nodes, as described Assessment: Hank Altman is a 54 y.o. female with pmh sig for Hodgkin's Lymphoma s/p CHO P + radiation c/b iatrogenic hypothyroidism on levothyroxine, left sided clear cell renal ca rcinoma with metastasis to left renal vein, liver, lungs, L2 lumbar spine who presented to o utpatient appointment with hypotension, acute renal injury, hyperkalemia, hypercalcemia of m alignancy prior to admission to hospital medicine. Patient's hospital course has been compl icated by ongoing hyperkalemia, metabolic acidosis, hypotension with MAPs<65, unclear urine output, despite aggressive IVF resuscitation with clinical signs of volume overload at time of assessment. Refractory Hypotension Clinical Volume Overload Patient with persistent hypotension after presentation to hospital and use of IV fluids. A t time of admission patient was euvolemic, now trending towards hypervolemia after use of IV F for treatment of hypercalcemia (has resolved) and improving JONO. Will discontinue IVF and have consulted MICU for bedside echocardiogram to assess for unknown systolic deficit (mare ent has no prior echocardiogram, EKG w/ t waves suggestive of prior infarct). Patient has i ncreased risk factors for PE (malignancy, obesity, immobility) and renal function prevents u se of contrasted CT of chest at current. -check tropoinin I now and then in 8 hours -discontinue NS @ 200ml/h -consulted MICU for bedside echocardiogram, evaluation for need of vasoactive agents -lower concern for underlying sepsis in patient without leukocytosis on UA, lactate of 0.9 -have encouraged need for strict intake and output with nursing staff Epigastric Pain Of unclear etiology, is reproducible on examination. Concern for underlying cardiovascular etiology (see above) vs pain from hepatic capsule stretch in setting of metastatic burden v s portal vein thrombosis. -check US with doppler of right upper quadrant -continue use of oxycodone 5-10mg po q4h prn (1st line), hydromorphone 0.2mg iv q3h prn (2n d line) as ordered with holding orders for hypotension, sedation -check KUB to assess for obstipation Acute Renal Injury Metabolic Acidosis Hyperkalemia Patient with continued acute renal injury, metabolic acidosis and hyperkalemia in setting o f progressive hypotension raising concern for pre-renal azotemia from cardiogenic process in setting of ongoing IVF resuscitation and hypervolemia. Patient's adequate volume status al so would raise concern for underlying intra-renal process if no evidence of systolic dysfunc tion. Patient with decreased UOP. -assess CMP above -check urine creatinine, sodium to calculate FENa Hypothyroidism Elevated TSH to 11 in setting of acute illness concerning for sick euthyroid vs iatrogenic hypothyroidism -day team increased levothyroxine to 137 mcg daily, will need repeat TFTs in 6 weeks Transamminitis Elevated LDH, Uric Acid Patient with known hepatic metastases, concern for underlying portal vein thrombosis. Lowe r concern for ongoing hemolysis in setting of hyperkalemia, as fibrinogen elevated. Patient 's elevated uric acid and LDH levels raise concern for tumor destruction which is odd in abs ence of anti-neoplastic therapy. -see above regarding US of RUQ -uric acid, LDH daily Anemia High concern for dilutional effect in setting of aggressive IVF. -hold IVF -check cbc -transfuse for h/h < 7 Yunier Velez MD Compliance Specialist, Department of Hospital Medicine Perioperative Medicine Clinic, Clinical Hospitalist & Medical Teaching Services [facility] Pager [phone] 08/25/2019 8:54 PM [facility] DEPARTMENT: Hosp ([facility]) - [phone] Place of Service: IP - [id number] [facility] [id number] Modifiers:GC Resident Involved: No Service: PRIMARY HOSPITALIST Suggested CPT: 87761 Prolonged Service Laqr-us-Hhgj 1st Hour (30-74 min beyond initial/sub) I spent 60 minutes in the care of this patient. Greater than 50% of the time was spent cou nseling and coordination of care, including discussing patient's case with critical care pro vider, management of hypotension Shelli Arriaga PA - 08/25/2019 7:22 PM PST CLINICAL HOSPITALIST SERVICE PROGRESS NOTE Author: REDD Valencia Attending Physician: Charlie Graham MD Patient Name: [facility] Day: 1 Interval Events: - presented to ED from opt Oncology appt for HoTN, hyperCa and hyperK in s/o clear cell curt al carcinoma - labs at [facility]: K 6, Cr 2.12, Ca corrected 13.6 - was given 1L IVF and pamidronate - VS: 90s/50s, HR 90s, afebrile - received add'l 2L IVF in ED, now running 200cc/hr NS - EKG w/o acute changes - K 6.0 -> 5.5 -> 5.2 - Cr 2.12 -> 2.06 -> 1.78 - corrected Ca 13.6 -> 12.8 -> 12.1 - uric acid 11.2 Subjective: Fatigue and nausea improved since admission but still present. Has pain in her lower back w hich waxes and wanes. Does not radiate. No associated B/B incontinence, saddle anesthesias, numbness or weakness. Denies CP, palpitations, SOB, vomiting, lightheadedness, syncope. L-si de of abdomen is tender but at baseline. Last BM on Thursday. Typically goes once every 3-5 da ys. Takes fiber and colace at home. Vitals: Last Vitals: BP (!) 95/49 | Pulse 95 | Temp 36.9 C (98.4 F) (Oral) | Resp (!) 25 | Ht 1.575 m (5' 2.01") | Wt 94.6 kg (208 lb 8.9 oz) | SpO2 94% | BMI 38.14 kg/m | BSA 2 .03 m 24 Hour Vital Min/Max: Systolic (24hrs), Av , Min:81 , Max:118 Diastolic (24hrs), Av, Min:45, Max:67 Pulse Min: 88 Max: 100 Temp Min: 36.3 C (97.3 F) Max: 36.9 C (98.4 F) Resp Min: 15 Max: 35 SpO2 Min: 81 % Max: 100 % Intake/Output Summary (Last 24 hours) at 08/25/2019 1758 Last data filed at 08/25/2019 1207 Gross per 24 hour Intake 2500 ml Output 400 ml Net 2100 ml Physical Exam: General: Non-toxic, adult woman, sitting comfortably. Awake, NAD HEENT: AT/NC. Pupils equal. EOMI. Sclera anicteric. MMM. Neck: JVP not elevated Cardiovascular: Regular tachycardia, nl S1/S2, no m/r/g Respiratory: Breathing regular, unlabored on RA. CTAB Abdomen: +BS, mild distention but soft. TTP in LUQ and LLQ. No rebound or guarding. Ext: wwp, 2+ pulses present bilaterally. No peripheral edema. Skin: No rashes or lesions. Neuro: Grossly intact. No evidence of focal abnormality. Psych: Affect appropriate Laboratory: CBC with diff last 72 hours (or 3 results) Recent Labs 08/23/19 1202 08/24/19 1938 08/24/19 2212 08/25/19 0532 08/25/19 1708 WBC 4.01 3.23* -- 3.94 -- HB 11.9* 11.6* 10.2* 10.3* 8.8* HCT 37.9 37.5 30* 33.1* 26* PLT 157 141* -- 113* -- NEUTROPERC 77.6* 71.5* -- 88.4* -- LYMPHPERC 10.5* 15.8* -- 5.3* -- MONOPERC 8.0 8.7 -- 3.3* -- BASOPERC 0.7 0.9 -- 0.5 -- EOSPERC 2.7 2.8 -- 2.0 -- Chemistries last 72 Hours (or 3 results): Recent Labs 08/24/19 2023 08/25/19 0536 08/25/19 1512 08/25/19 1702 08/25/19 1708 NA 138 < > 142 137 -- 137 K 5.5* < > 5.2* 6.5* 5.7* 5.6* CL 111* < > 116* 116* -- 113.0* BICARB 23 -- 22 16* -- -- BUN 43* < > 36* 34* -- 30* CR 2.06* < > 1.78* 1.93* -- 2.0* CA 11.9* -- 10.8* 10.2 -- -- MG -- -- 1.7 -- -- -- PO4 3.3 -- -- -- -- -- AST 44* -- 36 51* -- -- ALT 23 -- 16 19 -- -- AP 108* -- 81 87 -- -- TBILI 0.6 -- 0.6 0.8 -- -- TP 6.8 -- 5.7* 6.0* -- -- ALB 2.9* -- 2.4* 2.4* -- -- < > = values in this interval not displayed. Lab Results Component Value Date TSH 11.90 (H) 08/25/2019 Lab Results Component Value Date FREET4 1.1 08/25/2019 Lab Results Component Value Date URICACID 11.2 08/24/2019 Microbiology: 08/24 Urine screen - negative Imagin08/23/2019 CT of chest abdomen and pelvis with IV contrast: 1. Redemonstrated left renal cell carcinoma with extensive venous collateralization, reflec ting previously seen left renal vein invasion not evaluated on today's noncontrast study. 2. Redemonstrated large confluent hepatic metastases. 3. Several right middle and lower lobe pulmonary nodules, concerning for metastases. 4. Progressive now 50% height loss of pathological L2 compression fracture. 5. Sequelae of remote mediastinal radiation/treated lymphoma seen in the lungs and mediasti nal nodes, as described. Assessment and Plan: Hank Altman is a 54 y.o. female with pmh sig for Hodgkin's Lymphoma s/p CHOP + radiatio n c/b iatrogenic hypothyroidism (on levothyroxine), who was recently diagnosed with left taniya ed clear cell renal carcinoma with metastasis to left renal vein, liver, lungs, L2 lumbar sp ine with pathologic fracture who presented to outpatient infusion appointment with new hypot ension, acute renal injury in setting of new diagnosis of hypercalcemia of malignancy prompt ing presentation to ED for admission to hospital medicine service for use of IVF and frequen t laboratory monitoring. Problem List: Hypercalcemia of Malignancy Patient with calcium to 13.6 (after correction of albumin) on 08/24 laboratory studies high ly concerning for hypercalcemia of malignancy, with known pathologic lumbar fracture. Patie nt without significant symptom burden other than fatigue. Had received 3L IVF and pamidrona te prior to admission to hospital medicine service. PTH appropriately low. On Calcium trendi ng down with continuous fluids. Oncology following. - appreciate Oncology consult - reduce NS to 150ml/h to avoid volume overload - monitor for iatrogenic metabolic acidosis and transition to LR prn if K level permits - close monitoring of volume and resp status with aggressive fluids - telemetry - repeat CMP this evening - daily CMP + iCa - check PTHrP + vit D Acute Renal Injury Hyperkalemia Multifactorial acute renal injury in setting of documented hypotension, decreased oral inta ke from malignancy, ongoing use of MEHNAZ inhibitor, progressive metastatic renal cell cancer a nd hypercalcemia. Patient with hyperkalemia to 6. Treated with aggressive fluid resuscitati on with initial improvement, but noted to have increasing K and Cr in the afternoon. Repeat EKG w/o peaked T waves and normal IL interval, continues on telemetry w/o events. Un sure what her true baseline Cr is, was documented at 1.07 in 03/2019. JONO could be worsening by persistent hypotension and low MAPs (see below), which has been minimally responsive to f luids. - continue telemetry - repeat BMP at midnight, shift K with insulin + glucose if rising - EKG PRN for chest discomfort - strict I/O's - hold home MEHNAZ inhibitor / beta jhon as below - renally dose medications and avoid nephrotoxic agents Non-anion gap, hyperchloremic metabolic acidosis Suspect dilutional acidosis in s/o large volume fluid resuscitation with NS. Would transiti on to LR but K currently rising. VBG with pH 7.30, CO2 40, HCO3 19. Lactate normal. - check repeat labs this evening, consider adjusting fluids Hypotension Hx of Hypertension Patient with history of hypertension requiring use of mehanz inhibitor, atenolol, with hypoten janice on admission in setting of decreased PO intake and progressive renal cell carcinoma. Redd landeros's home antihypertensives held on admission while resuscitating with IVF as above. Per recent OPT chart notes, has prior BP readings in 80s/50s (though on anti-HTNs at the time). She remains asymptomatic. No fever or leukocytosis to suggest sepsis. High risk for thromboe mbolic process in s/o malignancy. No hypoxia, tachypnea (chart RR inaccurate), SOB to sugges t PE. Query if she has developed obstructive thrombus in the IVC. Unable to get contrast kat dies in s/o JONO. Currently well perfused on exam, lactate normal. No recent steroid use to p rompt adrenal insufficiency. Adrenal glands were unremarkable on 08/23 CT. Will check AM cor tisol. Decreasing H/H could represent occult bleed, though no s/sx of this and possible that it just dilutional. Will recheck evening CBC. - hold lisinopril, atenolol - continue IVF per above - check AM cortisol - repeat CBC, CMP in evening - check coags - if BP continues to decline -> consult ICU, consider TTE Normocytic anemia Hb 11.9 / HCT 37.9 on admission, trending down. Likely dilutional, no evidence of active bl eed. - repeat CBC this evening Metastatic Clear Cell Carcinoma of Left Kidney c/b metastases to lumbar spine, liver, lungs , left renal vein L2 Lumbar Compression Fracture c/b severe low back pain Patient with progressive metastatic clear cell carcinoma of left kidney and pathologic L2 c ompression fracture w/o evidence of radiographic cord compression or red flag symptoms on hi story. Ambulates with use of walker. Pain well controlled for 4-5 hours after administrati on of oxycodone 10mg oral which will be continued on admission. Referral sent for palliativ e XRT as outpatient, though she has been very painful here. Will involve Rad Onc tomorrow - Oncology following - continue oxycodone 5-10mg po q4h prn - IV HM 0.2mg q4h prn - aggressive bowel regimen - anti-nausea regimen - Rad Onc consult tomorrow - PT consult for safety eval prior to discharge as mobility greatly limited by pain Hypothyroidism Patient with hx of Hodgkin's Lymphoma s/p mantle irradiation c/b iatrogenic hypothyroidism for which she takes home levothyroxine. With normal 03/2019 TSH. Repeat TSH 11.1 and FT4 at 1 .1. Pt was instructed to increase home dose from 125 -> 137mcg at last Onc appt. -continue levothyroxine 137mcg daily (per last Onc note) FEN: Regular diet, K restricted Prophy: Lovenox Code status: Full DISPO: Pending clinical course. I spent 45 minutes [id number] with the patient of which greater than 50% was spent counse ling the patient about RCC, pathological fracture, pain mgmt, JONO, hyper K/Ca, in reviewing pertinent chart notes/data, as well as coordination of care with Oncology, nursing, and case management. REDD Valencia-C Instructor of Medicine Clinical Hospitalist Service [facility] [place] Pager [phone] Associated attestation - Charlie Graham MD - 08/25/2019 10:32 PM PSTA PA assisted with documenting this service. I saw the patient and reviewed and verified all information docum ented by the PA, and made modifications to such information, when appropriate. Patients Hospital Problem List: Active Hospital Problems 1) Renal cell adenocarcinoma (HCC) 2) Hypercalcemia of malignancy 3) Hyperkalemia 4) Hypothyroidism 5) Compression fracture of L2 vertebra (HCC) Notable additions or exceptions Include: 54 year old woman with PMH notable for Hodgkins, hypothyroidism here with hypercalcemia (?o f malignancy), JONO, hyperkalemia in setting of recent dx of mets left kidney clear cell ca. Overall, with IV bisphosphonate and IVF fluids has shown some improvement in calcium. Howeve r, patient's BP remains tenuous throughout the day (although patient largely asymptomatic). Etiology of hypotension and lack of response to copious IV fluids unclear. No fever, leukocy tosis or clear sxs to suggest sepsis/developing septic shock. No known cardiac hx, no EKG ch anges or sxs to suggest cardiogenic shock. No signs of overt bleeding (Blood counts have ana rosa pped most consistent with dilution from fluid) so do not suspect we are dealing with hemorrh age. With known malignancy thrombosis certainly possibly however no evidence of hypoxia, SOB to suggest PE--although does have S1, Q3, T3. Could she have sufficient venous thrombosis w ithout embolization to cause sufficient obstruction to limit venous return? (consider renal/ hepatic dopplers?) On imaging adrenals are reported as unremarkable, but with known large le ft renal mass could she have sufficient disruption of adrenal function and demonstrate hyper kalemia, hypotension as a result? With persistent soft pressures will request ICU eval. Tessa Graham MD Clinical Hospitalist Service [facility] [place] Pager [phone] I spent 38 minutes taking care of this patient while on the medical unit coordinating care and counseling regarding the above medical problems. documented in this encounter H&P Notes Tiesha Lopez, - 08/25/2019 9:11 PM PSTFormatting of this note might be different from t he original. [facility] MEDICAL ICU - HISTORY & PHYSICAL Author: Pavan Ramos MD Attending: Charlie Graham MD ID/CC: Hank Altman is a 54 y.o. woman w/ h/o Hodgkin's lymphoma s/p CHOP/radiation and rece nt diagnosis of RCC w/ metastasis who is admitted to the MICU for hypotension despite IVF re suscitation. HPI: Hank Altman is a 54 y/o woman w/ with stage IV renal clear cell carcioma (w/ mets to [place], liver, lung, lymph nodes), h/o Hodgkin's lymphoma 2002 s/p CHOP and RT complicated by po st-radiation hypothyroidism who is transferring to the MICU from Medicine for persistent hyp otension despite volume resuscitation. Hank was initially referred to the ED from hem/onc clinic appointment 08/24/2019 for pers istent asymptomatic hypotension despite 1L IVF at the heme/onc infusion center. At her first appt with heme/onc on 08/22, she was found to have renal insufficiency, hypercalcemia, and hyperkalemia (thus she was sent to the infusion center for pamidronate). Tentative oncologic plan is to start ipilipumab/nivolulmab and enrolling in PEDIGREE trial, however patient sta mj that this had been postponed d/t electrolyte abnormalities. No surgical intervention michael nned d/t liver metastasis. Her RCC was diagnosed 07/27/[address] for back pain demonstrated L renal vein invasion an d hepatic metastasis. She had one episode of hematuria in 07/2019, but none since. Back pain has become so debilitating that she is using a walker at home. Tonight, Hank continues to be asymptomatic of her hypotension. She reports ongoing low ba ck pain (currently adequately controlled), poor appetite recently, and constipation (no BM s vikram 08/21). She reports one episode of chest discomfort (similar to her reflux symptoms) in the ED that resolved with omeprazole. This episode was not associated with nausea or diapho resis. Denies chest pain, dyspnea, LE edema. Pre-MICU Course: - In the ED, received 3L IVF - Admitted to Medicine 08/24/2019 with hypotension, hypercalcemia (~13 on admission) and hy perkalemia (> 6 on admission) - Started on NS at 200ml/hr, ACEi/atenolol held ROS: A full 10 system ROS was performed and is negative unless stated otherwise in the HPI. Past Medical History: Diagnosis Date Hodgkin's disease [...] Hypothyroidism Compression fracture of L2 vertebra (HCC) No Known Allergies Prior to Admission Medications Prescriptions atenolol 50 mg oral tablet Sig: Take 25 mg by mouth once daily. levothyroxine 137 mcg oral tablet Sig: Take 125 mcg by mouth before breakfast. lisinopril 5 mg oral tablet Sig: Take 5 mg by mouth once daily. lovastatin 20 mg oral tablet Sig: Take 20 mg by mouth once daily in the evening. Administer with evening meal. oxyCODONE (immediate release) 5 mg oral tablet Sig: Take 1-2 tablets by mouth every four hours as needed for breakthrough pain. 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, likes water aerobics Vital Signs: Cuff BP (!) 87/53 (08/25/192099) | BP Min: 79/49 Max: 118/52 Cuff MAP (!) 64 mmHg (08/25/192099) | BP Mean Min: 54 mmHg Max: 78 mmHg Art Line BP | No data recorded Art Line MAP | No data recorded HR 100 (08/25/192058) | Pulse Min: 90 Max: 100 | Temp 36.9 C (98.4 F) (08/25/19 1230) | Temp Min: 36.3 C (97.3 F) Max: 36.9 C (9 8.4 F) RR (!) 21 (08/25/192058) | Resp Min: 15 Max: 35 SpO2 97 % (08/25/192058) | SpO2 Min: 93 % Max: 100 % O2 Device None (room air) (08/25/19 1800) | Cam/RASS Most Recent Value RASS Scale 0 CPOT Intake/Output Summary (Last 24 hours) at 08/25/19 0700 Last data filed at 08/25/19 0554 Gross per 24 hour Intake 2000 ml Output 400 ml Net 1600 ml Intake/Output Summary (since admission) at 08/24/19 1816 Last data filed at 08/25/19 2017 Gross for the last 1 days Intake 2510 ml Output 775 ml Net since Admission 1735 ml BMI: Weights 94.6 kg (208 lb 8.9 oz) (08/24/19 1822) 94.6 kg (208 lb 8.9 oz) (08/24/19 1341) Admit Wt: 94.6 kg (208 lb 8.9 oz) Physical Exam: GEN: Well appearing woman in NAD. Appears younger than stated age. Pleasant and cooperative CV: RRR. No m/r/g RESP: Bibasilar fine crackles. Breathing comfortably on RA. GI: Soft, nontender, nondistended Ext: No pretibial pitting edema. Symmetric calves. Skin: No rashes/lesions. Warm and well perfused Neuro: A&Ox4. Sensation intact. Laboratories: Recent Labs 08/25/19 18308/25/19204808/25/192055 VBGPH 7.30* 7.28* 7.24* VBGPCO2 40 45 47 VBGHCO3 19* 20* 20* Recent Labs 08/24/19 1938 08/25/19 0532 08/25/19 1708 08/25/192049 WBC 3.23* -- 3.94 -- 2.69* HB 11.6* < > 10.3* 8.8* 11.0* HCT 37.5 < > 33.1* 26* 36.7 MCV 90.6 -- 91.2 -- 92.2 PLT 141* -- 113* -- 108* NEUTROPHILCO 2.31 -- 3.48 -- 2.34 LYMPHSABS 0.51* -- 0.21* -- 0.17* MONOCYTECO 0.28 -- 0.13 -- 0.08* EOSCO 0.09 -- 0.08 -- 0.07 BASOPHILCO 0.03 -- 0.02 -- 0.02 IMGRANABS 0.01 -- 0.02 -- 0.01 < > = values in this interval not displayed. Recent Labs 08/24/19 2235 08/25/19 183 INRPT 1.07 1.11 APTT -- 23.3* FIBRINOGEN -- 488* Recent Labs 08/24/193 08/25/19 0536 08/25/19 1512 08/25/19 1702 08/25/19 1708 NA 138 < > 142 137 -- 137 K 5.5* < > 5.2* 6.5* 5.7* 5.6* CL 111* < > 116* 116* -- 113.0* BICARB 23 -- 22 16* -- -- BUN 43* < > 36* 34* -- 30* CR 2.06* < > 1.78* 1.93* -- 2.0* CA 11.9* -- 10.8* 10.2 -- -- MG -- -- 1.7 -- -- -- PO4 3.3 -- -- -- -- -- ANIONGAP 4 -- 4 5 -- -- < > = values in this interval not displayed. Recent Labs 08/24/19221108/25/19 0536 08/25/19 1512 08/25/19 1708 GLU 94 88 78 89 Recent Labs 08/24/19202208/25/19 0536 08/25/19 1512 AST 44* 36 51* ALT 23 16 19 TBILI 0.6 0.6 0.8 AP 108* 81 87 ALB 2.9* 2.4* 2.4* TP 6.8 5.7* 6.0* Recent Labs 08/25/19 1835 08/25/19 2049 08/25/19 2054 08/25/19 205 LACTICACID 0.9 1.2 -- 0.9 TROPONIN -- -- <0.02 -- Lab Orders - In Process (From admission to next 24h) Start Ordered 08/24/191818 RAINBOW HOLD, CORE PANEL (RAINBOW AND BLOOD BANK HOLD (Inpatient)) ONCE 08/24/19 1820 Microbiology: None Imaging: CT Chest, abdomen, pelvis 08/23 IMPRESSION: 1. Redemonstrated left renal cell carcinoma with extensive venous collateralization, reflec ting previously seen left renal vein invasion not evaluated on today's noncontrast study. 2. Redemonstrated large confluent hepatic metastases. 3. Several right middle and lower lobe pulmonary nodules, concerning for metastases. 4. Progressive now 50% height loss of pathological L2 compression fracture. 5. Sequelae of remote mediastinal radiation/treated lymphoma seen in the lungs and mediasti nal nodes, as described. NM Bone Scan 08/23 IMPRESSION: Lytic metastatic cold bone scan lesion within the left/anterior aspect of the L2 vertebral body, with adjacent hot lesion on the right side of L2 vertebral body, that may represent a non-lytic part of the adjacent metastasis or pathologic fracture of L2. US Liver Biopsy 08/16 FINDINGS: The liver demonstrates diffusely heterogeneous echogenicity with multiple hypoechoic lesion s within the right hepatic lobe. The main portal vein measures up to 8 mm in diameter. The g allbladder contains layering sludge. Procedure image demonstrates the needle tip within a hypoechoic lesion within the right hep atic. Post procedure imaging shows no hematoma. EKG/Echocardiogram: EKG 08/25: NSR, HR 93 Current Facility-Administered Medications Medication Dose Route Frequency Last Rate Current Facility-Administered Medications Medication Dose Route Frequency Last Rate acetaminophen (TYLENOL) tablet 1,000 mg 1,000 mg oral TID enoxaparin (LOVENOX) injection 40 mg 40 mg subcutaneous QPM [START ON 08/26/2019] levothyroxine tablet 137 mcg 137 mcg oral BEFORE BREAKFAST omeprazole (PRILOSEC) capsule 20 mg 20 mg oral BID polyethylene glycol (MIRALAX) packet 17 g 17 g oral DAILY senna-docusate (SENOKOT S) 8.6-50 mg 1 tablet 1 tablet oral BID Current Facility-Administered Medications Medication Dose Route Frequency Last Rate bisacodyl (DULCOLAX) suppository 10 mg 10 mg rectal DAILY PRN HYDROmorphone (DILAUDID) injection 0.2 mg 0.2 mg intravenous Q3H PRN ondansetron ODT (ZOFRAN ODT) tablet 4 mg 4 mg oral Q8H PRN oxyCODONE (immediate release) (ROXICODONE) tablet 5-10 mg 5-10 mg oral Q4H PRN polyethylene glycol (MIRALAX) packet 17 g 17 g oral TID PRN Assessment & Plan: Hank Altman is a 54 y.o. woman w/ h/o Hodgkin's lymphoma s/p CHOP/radiation and recent diag nosis of RCC w/ metastasis who is admitted to the MICU for hypotension despite IVF resuscita tion. Neurological #Severe low back pain in s/o pathologic fracture Heme/onc clinic note suggested admission for IR consult for vertebroplasty/kyphoplasty of L 2 vertebral fracture and RT consult. -Oxycodone 10mg q4h PRN, dilaudid 0.2mg q2h PRN -Consider IR, RT when HD stable Cardiovascular #Hypotension #C/f PE Asymptomatic. Patient is warm and well perfused w/ intact distal pulses, however UOP has be en poor (though creatinine overall improved from admission). She has not been responsive to IVF and now has iatrogenic metabolic acidosis from NS. Highest on differential is poor ACEi clearance in the setting of JONO (likely secondary to poor po intake recently). PE seems less likely d/t lack of significant tachycardia and other symptoms, though she is high risk for PE w/ active malignancy and did seem to have possible RV dilation on bedside ECHO; she proba rod at least has subsegmental emboli, but this seems less likely to be contributing to hypot ension. D-dimer of 1.60 is not unsurprising in s/o malignancy, but would have been very help ful in avoiding contrast studies if negative. Troponin negative. Lactate negative. Will avoid further IVF for now. Currently MAP 54-64. -A-line -Start NE for MAP >60 -Consider CVC if requiring NE >0.04 -TTE -Consider CT PE (avoiding for now d/t JONO) vs empiric anticoagulation -F/u cortisol Respiratory No acute concerns. Consider pulmonary edema in s/o IVF if she becomes hypoxic. GI / Nutrition #Constipation Last BM was Thursday. S/p senna and one dose of miralax. May be difficult to achieve BM in s/ o hypercalcemia and opioids. -Aggressive bowel regimen / Renal #JONO Unknown baseline creatinine. Cr has improved from 2.12->1.85 since admission, but w/ the am ount of IVF she has received, would expect to have more improvement if pre-renal. -Trend BMP #Hypercalcimia of malignancy Received bisphosphonate (pamidronate) in heme/onc clinic prior to admission, thus should co ntinue to see improvement in Ca. PTH 12/19 low at 7. Will need to follow up for monthly pamidronate. -Trend iCal -Consider calcitonin if worsening Ca >14 -F/u PTHrp #Hyperkalemia >6 on admission w/o EKG changes. Down to 5.6 after IVF. May be d/t RTA (as patient is hyperchloremic w/ mild NAGMA): Urine studies were significant for a positive gap and pH>6. Although may be d/t circulating ACEi. Shifted tonight d/t K of 5.7 May improve with BM as well. -Shift for K >5.5 -Trend BMP #Mixed hyperchloremic non-anion gap metabolic acidosis Iatrogenic in s/o NS. -Hold further NS Infectious Disease No acute concerns. Hematology / Oncology #Metastatic renal clear cell carcinoma From follow-up OV with hem/onc 08/22, discussed enrollment in PEDIGREE trial which would in volve tx with ipilipumab/nivolumab, but per patient, deferred for d/t abnormal lab work. #Normocytic anemia Likely ACD in s/o malignancy. No s/s bleeding. -Trend CBC Endocrine #Hypothyroidism Iatrogenic after radiation for Hodgkin's lymphoma. Last TSH 11.9 during this admission on 10/26 (previously wnl 03/2019), thus levothyroxine was up-titated from 125 to 137mcg. -Continue levothyroxine 137mcg Present on admission Acute non-oliguric kidney injury Acute hyperkalemia Feeding: PO diet (renal diet) Analgesia: Acetaminophen, Oxycodone and Hydromorphone Sedation: None (RASS Goal 0 (alert and calm)) Thromboprophylaxis: LMWH SC Head of Bed: Ad radha Ulcer Prophylaxis: PPI Glycemic control: BS controlled < 180, insulin not indicated Mobility Goal: Ambulate Lines/Tubes/Drains/Airways: PIVs Code Status Code Status Full Code Surrogate Decision Maker Documentation: Surrogate Decision Maker Primary Surrogate Decision Maker William Talavera sister [phone] Secondary Surrogate Decision Maker Amada Manzanares sister This patient was staffed with Dr. Portillo, attending physician. Tiesha Lopez DO And Pavan Ramos MD 08/25/2019, 9:12 PM troup, Yunier Peña MD - 08/24/2019 11:05 PM PST Internal Medicine History and Physical Attending Physician: Yunier Velez MD Chief Complaint: hypotension HPI: Hank Altman is a 54 y.o. female with pmh sig for Hodgkin's Lymphoma s/p CHOP + rad iation c/b iatrogenic hypothyroidism (on levothyroxine), who was recently diagnosed with lef t sided clear cell renal carcinoma with metastasis to left renal vein, liver, lungs, L2 lumb ar spine with pathologic fracture who had been referred to [facility] oncology group group on 08/07 8 where she had initial appointment with laboratory studies showing evidence of hyperkalemi a (K of 6), renal insufficiency (Cr 2.12), hypercalcemia (albumin corrected calcium to 13.6) raising concern for hypercalcemia of malignancy. [facility] of 1L IVF and use of pamidronate for management of h ypercalcemia which patient received after being found to be asymptomatically hypotensive to 81/42. Patient was referred to ED for further evaluation in light of new hypotension. In ED patient shares that she has had worsening months of severe lower back pain for which she had recent CT scan showing pathologic lumbar compression fracture, which somewhat improv es with use of oxycodone 10mg and no history of lower extremity radiculopathy, red flag symp toms (LE numbness, weakness, bowel or bladder incontinence, saddle anesthesia). She had rece nt 08/23/2019 CT of lumbar spine showing L2 compression fracture without radiographic eviden ce of cord compression. Patient's ambulation has been complicated by severe pain requiring u se of walker for prolonged ambulation at home. She denies difficulty with independent trans fers. In ED patient was treated with 2L IVF, received EKG without evidence of peaked T waves or P R prolongation and was started on telemetry prior to assessment by hospital medicine provide r. She remains asymptomatic other than chronic low back pain which has worsened in absence of home oxycodone and was refractory to use of IV morphine. She had mild nausea which was n ot significantly improved after use of ondansetron. She notes 40 lb weight loss in last clark endar year without evidence of fatigue, night sweats, has not had skin or hair changes, or d ose changes in home levothyroxine, she denies history of heart failure, chest pain, palpitat ions, or emesis. Past Oncologic History: Oncologist Dr. Lissette Ortiz MD ([facility] Oncology) 07/27/2019 - Diagnosed with left sided renal cell carcinoma after CT of abdomen and pelvis shows evidence of left renal vein invasion, hepatic metastasis 08/16/2019 - liver biopsy of metastasis shows evidence of clear cell carcinoma 08/23/2019 - CT scan with large left sided renal mass, large hepatic metastases, RML/RLL pu lmonary nodules and L2 compression fracture with 50% loss of lumbar vertebral height Past Medical History: I have updated the Problem List with the patient's relevant diagnoses. Past Medical History Renal cell adenocarcinoma (HCC) Hypercalcemia of malignancy Hyperkalemia Hypothyroidism Compression fracture of L2 vertebra (HCC) Hodgkin Disease s/p 2001 CHOP + radiation -no evidence of recurrence Past Surgical History: Past Surgical History Procedure Laterality Date C section 2000 Knee surgery Left 1980 Mediport insertion placed in left chest site in 2001 w/ removal in 2002 Review of Systems: All other systems negative. Review of Systems Constitutional: Negative for chills and fever. HENT: Negative for sore throat. Eyes: Negative for blurred vision. Respiratory: Negative for cough, sputum production, shortness of breath and wheezing. Cardiovascular: Negative for chest pain, palpitations, orthopnea and leg swelling. Gastrointestinal: Positive for constipation and nausea. Negative for abdominal pain, blood in stool, diarrhea, melena and vomiting. Genitourinary: Negative for flank pain, frequency and urgency. Musculoskeletal: Positive for back pain. Negative for falls, joint pain and neck pain. Skin: Negative for rash. Neurological: Negative for dizziness, tingling, tremors, sensory change, speech change, foc al weakness, loss of consciousness, weakness and headaches. Endo/Heme/Allergies: Does not bruise/bleed easily. Psychiatric/Behavioral: Negative for depression and substance abuse. The patient is not ner vous/anxious. ROS otherwise normal. Home Medications: I have obtained and documented the prior to admission medication list and it is accurate. Prior to Admission Medications Prescriptions atenolol 50 mg oral tablet Sig: Take 25 mg by mouth once daily. levothyroxine 125 mcg oral tablet Sig: Take 125 mcg by mouth before breakfast. lisinopril 5 mg oral tablet Sig: Take 5 mg by mouth once daily. lovastatin 20 mg oral tablet Sig: Take 20 mg by mouth once daily in the evening. Administer with evening meal. oxyCODONE (immediate release) 5 mg oral tablet Sig: Take 1-2 tablets by mouth every four hours as needed for breakthrough pain. Facility-Administered Medications: None Allergies I have reviewed and updated the allergy list. Allergies No Known Allergies Social History I have updated the Social Hx as appropriate. 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 Family History Problem Relation Diabetes Mother Diabetes Father Hypertension Sister Diabetes Sister Physical Exam: Last Vitals: BP (!) 90/51 | Pulse 94 | Temp 36.3 C (97.3 F) (Oral) | Resp (!) 21 | Wt 94.6 kg (208 lb 8.9 oz) | SpO2 98% | BMI 38.15 kg/m | BSA 2.03 m 24 Hour Vital Min/Max: Systolic (24hrs), Av , Min:86 , Max:100 Diastolic (24hrs), Av, Min:48, Max:65 Pulse Min: 88 Max: 96 Temp Min: 36.3 C (97.3 F) Max: 36.3 C (97.3 F) Resp Min: 16 Max: 30 SpO2 Min: 81 % Max: 100 % Intake/Output Summary (Last 24 hours) at 08/25/2019 0023 Last data filed at 08/24/2019 2353 Gross per 24 hour Intake 2000 ml Output Net 2000 ml General Appearance: NAD resting comfortably in bed, cooperative with examination, speaking in full sentences HEENT: Op without exudate or erythema, NCAT, periocular conjunctival pallor, pupils 3-->2 b ilaterally Neck: JVP 4 cm above sternal notch, neck supple full ROM Respiratory: CTAB no w/r/r Cardiovascular: nl s1 and s2 with mid systolic murmur Gastrointestinal: mild TTP in LUQ, S NT ND NABS no HSM or masses Musculoskeletal: non-pitting edema of lower extremities, no rashes or lesions Spine: TTP of thoracic spine / lumbar spine, no sacral anesthesia Neurologic: full strength / sensation (did not observe patient ambulate due to severity of disease), no expressive or receptive language deficits, alert and oriented x3 Psychiatric: linear and goal directed thought process, non-anxious affect Laboratory Interpretation: Chemistries: Last 72 Hours (or 3 results) - Refreshable Recent Labs 08/23/19 1202 08/24/19202208/24/192211 NA 137 138 137 K 6.0* 5.5* 5.5* CL 105 111* 110.0* BICARB 24 23 -- BUN 51* 43* 41* EGFRAFRICAN 29* 30* -- CR 2.12* 2.06* 2.2* GLU 99 105* 94 CA 12.9* 11.9* -- baseline cr 1.07 03/16/2019 cmp (in media tab) - Na 141, k 4.8, cl 109, co2 23, bun 20, cr 1.07, ca 10.8, glu cose 93 tot prot 6.1, albumin 3.7, ast 16, alt 13, alk phos 55 Liver Tests: Last 72 hours (or 3 results) Recent Labs 08/23/19 1202 08/24/192022 AST 42* 44* ALT 21 23 TBILI 0.7 0.6 AP 89 108* ALB 3.1* 2.9* TP 6.9 6.8 CBC with diff last 72 hours (or 3 results) - Refreshable Recent Labs 08/23/19 1202 08/24/19193708/24/192211 WBC 4.01 3.23* -- HB 11.9* 11.6* 10.2* HCT 37.9 37.5 30* PLT 157 141* -- NEUTROPERC 77.6* 71.5* -- LYMPHPERC 10.5* 15.8* -- MONOPERC 8.0 8.7 -- BASOPERC 0.7 0.9 -- EOSPERC 2.7 2.8 -- 03/16/2019 (in media tab) wbc 3.9, hgb 13.6, protein 231, mcv 86.6 03/16/2019 TSH (in media tab): 2.34 Imaging Interpretation: 08/23/2019 CT of chest abdomen and pelvis with IV contrast: 1. Redemonstrated left renal cell carcinoma with extensive venous collateralization, reflec ting previously seen left renal vein invasion not evaluated on today's noncontrast study. 2. Redemonstrated large confluent hepatic metastases. 3. Several right middle and lower lobe pulmonary nodules, concerning for metastases. 4. Progressive now 50% height loss of pathological L2 compression fracture. 5. Sequelae of remote mediastinal radiation/treated lymphoma seen in the lungs and mediasti nal nodes, as described. Assessment: Hank Altman is a 54 y.o. female with pmh sig for Hodgkin's Lymphoma s/p CHO P + radiation c/b iatrogenic hypothyroidism (on levothyroxine), who was recently diagnosed w ith left sided clear cell renal carcinoma with metastasis to left renal vein, liver, lungs, L2 lumbar spine with pathologic fracture who presented to outpatient infusion appointment wi th new hypotension, acute renal injury in setting of new diagnosis of hypercalcemia of malig tasha prompting presentation to ED for admission to hospital medicine service for use of IVF and frequent laboratory monitoring. Hypercalcemia of Malignancy Patient with calcium to 13.6 (after correction of albumin) on 08/24 laboratory studies high ly concerning for hypercalcemia of malignancy, with known pathologic lumbar fracture. Patie nt without significant symptom burden other than fatigue. Had received 3L IVF and pamidrona te prior to admission to hospital medicine service. -start 200ml/h of NS (evaluate for transition to LR in am after patient receives 4L of NS IV to avoid iatrogeni c metabolic acidosis) -monitor for progression to respiratory insufficiency in patient with known hypoalbuminemi a -daily cmp with ionized calcium this am -check PTH in am in setting of progressive renal dysfunction -no indication for calcitonin in patient without hypercalcemia > 14 -consult oncology on discharge as patient likely to require weekly to monthly pamidronate ( will not redose pamidronate in under one week) -appreciate oncology management of underlying malignancy Acute Renal Injury Hyperkalemia Multifactorial acute renal injury in setting of documented hypotension, decreased oral inta ke from malignancy, ongoing use of MEHNAZ inhibitor, progressive metastatic renal cell cancer a nd hypercalcemia. Patient with hyperkalemia on admission, and improving creatinine / calciu m after use of aggressive IVF (had received 3L IVF prior to my arrival). EKG without eviden ce of peaked T waves or IL prolongation, continues on telemetry. 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 Ambulates with use of walker. Pain well controlled for 4-5 hours after administrati on of oxycodone 10mg oral which will be continued on admission. -continue oxycodone 10mg po q4h prn -start hydromorphone 0.2mcg iv q2h prn as second line for pain unrelieved after use of oral oxycodone -start aggressive as needed bowel / anti-nausea regimen -patient will follow up with her oncologist at normal interval after discharge -PT consult for safety eval prior to discharge Hypothyoridism Patient with hx of Hodgkin's Lymphoma s/p mantle irradiation c/b iatrogenic hypothyroidism for which she takes home levothyroxine. With normal 03/2019 TSH and without recent dose calderon es. -continue home levothyroxine 125mcg daily -check TSH in am Hypotension Hx of Hypertension Patient with history of hypertension requiring use of mehnaz inhibitor, atenolol, with hypoten janice on admission in setting of decreased PO intake, progressive renal cell carcinoma concer jimbo for contribution from use of MEHNAZ inhibitor in setting of JONO. Patient's home antihyper tensives held on admission while resuscitating with IVF as above. -hold lisinopril -hold atenolol -monitor for need to restart home medications prior to discharge. -renally dose medications and avoid nephrotoxic agents F: po intake E: daily N: regular diet, potassium restricted 2g PPX: enoxaparin 40mg sq qd Code status: full, confirmed on admission by Yunier Velez MD Isolation: none Medication Reconciliation: completed by Yunier Velez MD on admission Disposition: likely 1-3 days in hospital pending improvement with use of IVF, supportive ca re, passing physical therapy Yunier Velez MD Clinical Hospitalist Services [facility] Pager [phone] [facility] DEPARTMENT: Hosp ([facility]) Modifiers:GC Resident Involved: No Service: PRIMARY HOSPITALIST Suggested CPT: 86659 Initial Visit Comp/High Complexity 70 min I spent 90 minutes in the care of this patient. Greater than 50% of the time was spent cou nseling and coordination of care, including management of hyperkalemia, hypercalcemia, low b ack pain with patient at bedside. documented in this en counter Procedure Notes Yrn Clemens MD - 08/29/2019 2:35 PM PSTAssociated Order(s): PROCEDURE NOTE INTERVENTIONAL NEURORADIOLOGY Brief Procedure Note Attending Physician: Yrn Clemens MD Assistants: Procedure Performed: L2 Kyphoplasty Complications: None apparent Findings: 1. Right L2 pedicular access. Kyphoplasty performed. Closure: NA Plan: - Neuro checks - Further care per Hospitalist service Yrn Clemens MD Compliance Specialist - Skull base and Cerebrovascular Neurosurgery Department of Neurological Railroad BrakemanCompliance Specialist - Interventional Neuroradiology Felipe Key Department of Interventional Radiology [facility] 4 :27 PM Pavan Robles MD - 08/26/2019 4:08 AM PSTAssociated Order(s): CENTRAL LINE CENTRAL LINE Performed by: Pavan Ramos MD Authorized by: Charlie Portillo MD Written consent obtained?: Yes Consent given [...] cover) used Indications: Indications: Administration of medicationn and Assessment of intravascular volume Diagnosis indicating procedure: Refractory hypotension Responsible Provider: Operators: Fellow and Resident Attending physically present: No Fellow name: Kleber Fleming Resident name: Pavan Ramos Anesthesia: Anesthesia: Opioid Local anesthetic: Lidocaine 1% w/o epinephrine Anesthetic total (ml): 3 Sedation/Analgesia: Patient sedated?: No Procedure details: Monitoring: EKG, SaO2, NIBP and Arterial line Insertion side: Right Insertion site: Internal Jugular vein Insertion site statement: With catheter tip targeted in SVC, see CXR report for confirma tion Vein garbage stoker technique: Ultrasound Guidance Techique: The modified Seldinger technique (a bpduaelo-[id number]-[id number]-hlbp-through -the-catheter) was used for vessel cannulation Confirmed by: Fluid manometry was used to confirm venous cannulation and The wire was vi sualized with ultrasound in the correct target vessel Ultrasound options: No images saved Catheter type: Triple lumen Catheter size: 7 Fr Catheter length: 15 cm Insertion depth: 15 cm Ports: All ports aspirated for blood Ports flushed with: Saline Number of attempts: 2 Fixation and Dressing: Line secured: Suture and Dressing Applied The guide wire was removed without difficulties and intact Dressing: Dressing applied prior of removal of full barrier drape Complications: Complications: None Pavan Ramos MD Associated attestCharlie Bello MD - 08/26/2019 6:36 PM PSTAttending Attes tation: I was available, but not immediately present for this procedure. Charlie Portillo MD Compliance Specialistdisaster recovery manager [facility] [place] Division of Pulmonary & Critical Care Medicine Pager: [phone] Pavan Ramos MD - 08/26/2019 2:18 AM PSTAssociated Order(s): ARTERIAL LINE ARTERIAL LINE Performed by: Pavan Ramos MD Authorized by: Charlie Portillo MD Written consent obtained?: Yes Consent given by: Patient Patient identity confirmed per policy: Yes Procedural pause: Immediately prior to the procedure a pause per universal protocol was clark led . Indications: Beat to beat blood pressure monitoring Diagnosis indicating procedure: Refractory hypotension Location performed: 7A Operators: Fellow and Resident Attending physically present: No Fellow name: Kleber Fleming Resident name: Pavan Ramos Skin Preparation: Chloraprep Protective barrier: Cap, Mask, Hand scrub, Gloves and Partially draped Sterile Ultrasound Used: Sterile Ultrasound Used Local anesthetic: Lidocaine 1% Insertion side: Right Insertion site: Radial Catheter size: 20g Number of attempts: 4 or more Line secured: StatLock Complications: None Pavan Ramos MD Associated attCharlie Escobar MD - 08/26/2019 6:35 PM PSTAttending Attes tation: I was available, but not immediately present for this procedure. Charlie Portillo MD Compliance Specialistdisaster recovery manager [facility] Division of Pulmonary & Critical Care Medicine Pager: [phone] documented in this encounter Consult Notes Benito Ovalles MD - 08/30/2019 2:24 PM PSTEndocrinology Brief Follow Up Note: Endocrinology testing has been completed. Cosyntropin stimulation test was normal, no evidence of adrenal insufficiency. ACTH collect ed in afternoon, therefore likely appropriate IGF-1 low-end of normal. FSH, LH elevated - appropriately given likely post-menopausal Prolactin normal No need for endocrinology follow up Benito Ovalles MD Endocrinology Fellow Pager: [phone] 08/30/2019 2:26 PM Luh Hobson MD - 7:58 AM PST [facility] [place] INTERVENT[facility]AL NEURORADIOLOGY at [facility] INTERVENTIONAL [place] HISTORY AND PHYSICAL NAME: Hank Altman : 1965 Hank Altman is a 54 y.o. female with medical problems including metastatic renal cell c arcinoma. SUBJECTIVE: Back pain since July when she presented to ED where CT revealed mass. Review of systems Neurologic: No unusual headaches, inability to speak, poor balance, numb ness, tingling, tremors, memory loss, disturbances in coordination or sensation of room spin jimbo. NPO STATUS maintained: Yes ( NPO x> 6 hours from solids and/or > 3 hours from clear liquid s). PAIN: yes: location lower back, intensity 7/10 Patient is able to lie flat YES, able to lie flat on abdomen YES, willing to try PRE-PROCEDURE EVALUATION: History of adverse experiences with sedation/analgesia/anesthesia: NO Prior difficult intubation or ventilation: UNKNOWN Stridor: no Snoring: NO Documented sleep apnea: NO Morbid Obesity BMI>39: Body mass index is 39.78 kg/m. Mallampati Score: 1 PREVIOUS ALLERGIC REACTION TO IV CONTRAST? NO TAKING metformin, insulin, oral DM medications? NO TAKING anticoagulation / antiplatelet? NO possible? NO ALLERGIES No Known Allergies PAST MEDICAL HISTORY Past Medical History: Diagnosis Date Hodgkin's disease (HCC) 2001 CHOPP and radiation therapy Hypercalcemia of malignancy Hypertension Hypothyroidism Hypothyroidism Pathologic compression fracture of lumbar vertebra, initial encounter (HCC) Renal cell carcinoma (HCC) clear cell carcinoma of left kidney, 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, lungs, invasion of left pulm onary artery, L2 metastatic spread PAST SOCIAL HISTORY Past Surgical History Procedure Laterality Date C section 2000 Knee surgery Left 1981 Mediport insertion placed in left chest site in 2001 w/ removal in 2002 CURRENT MEDICATIONS Current Medication List Name Sig ATENOLOL 50 MG TABLET Take 25 mg by mouth once daily. LEVOTHYROXINE 137 MCG TABLET Take 125 mcg by mouth before breakfast. LISINOPRIL 5 MG TABLET Take 5 mg by mouth once daily. LOVASTATIN 20 MG TABLET Take 20 mg by mouth once daily in the evening. Administer with even ing meal. OXYCODONE 5 MG TABLET Take 1-2 tablets by mouth every four hours as needed for breakthrough pain. LABS: Lab Results Component Value Date WBC 3.78 08/29/2019 HCT 31.4 (L) 08/29/2019 PLT 158 08/29/2019 Lab Results Component Value Date NA 140 08/29/2019 K 4.9 08/29/2019 CL 114 (H) 08/29/2019 BICARB 21 08/29/2019 BUN 32 (H) 08/29/2019 CR 1.81 (H) 08/29/2019 GLU 73 08/29/2019 Lab Results Component Value Date INRPT 1.11 08/25/2019 OBJECTIVE: BP 102/54 (BP Location: Left upper arm, Patient Position: Lying on back) | Pulse 77 | Tem p 36.3 C (97.3 F) | Resp 18 | Ht 1.575 m (5' 2") | Wt 98.7 kg (217 lb 8 oz) | SpO2 9 8% | BMI 39.78 kg/m | BSA 2.08 m GENERAL: healthy, alert NEURO: MS: alert, interactive, no aphasia, no neglect CN: PERRL, gaze primary, VF intact, face symmetric, no dysarthria MOTOR: antigravity in all 4 extremities SENSORY: intact and symmetric in all 4 extremities COORDINATION: no ataxia SPINE: mild to mod tenderness to palpation of L2-L3 midline ENT: *FOCUSED AIRWAY EXAMINATION: normal airway Heart: regular Lungs: breathing comfortably on room air Extremities: RIGHT and LEFT DP and PT pulses palpable. Skin is pink and warm. IMPRESSION : Hank Altman is a 54 y.o. female with hypothyroidism and renal cell carcin adamaris and L2 pathologic fracture presenting for kyphoplasty. ACTIVE MEDICAL PROBLEMS: Patient Active Problem List Diagnosis Date Noted Closed compression fracture of L2 lumbar vertebra, initial encounter (HCC) 08/25/2019 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) 08/25/2019 Hyperkalemia 08/24/2019 Hypothyroidism 08/24/2019 Compression fracture of L2 vertebra (HCC) 08/24/2019 Renal cell adenocarcinoma (HCC) 08/23/2019 Hypercalcemia of malignancy 08/23/2019 Procedural Plan: Proceed with planned procedure ASA SCORE is: ASA III ( Severe Systemic disease with functional limitations that is not in capacitating). Proceed with planned level of sedation: Moderate Sedation The risk of angiography was explained to the patient or patient's surrogate in detail, incl uding risks, benefits, alternatives, and indications. All questions were answered in detail. The patient or the patient's surrogate directs us to proceed. PARQ Reviewed, consent obtain ed. Luh Guevara MD Neurosurgery PGY1 [facility] Interventional Neuroradiology Tg Dennis MD - 2:24 PM PST Endocrinology Progress Note Assessment: Hank Altman is a 54 y.o. female with metastatic RCC who is referred for hypotension, im proved after corticosteroid administration. She had no specific symptoms of adrenal insufficiency, but had significant dehydration. Bot h conditions will require fluid repletion to optimize pressors, so we were very reasonably c alled to weigh in on potential adrenal insufficiency. Her cosyntropin stim test was very normal, with a rise from 6.7 to 30.4 then 38.4. She shou ld not need any supplemental corticosteroids. Baseline cortisol level on low side as expecte d given she received dexamethasone on morning of the test. Pituitary hormones were tested, as RCC can occasionally metastasize to the pituitary and th ere was increased suspicion in her case. These are not all back yet, but the ones that have returned are normal. If a brain MRI is needed by oncology it would still be reasonable to do additional pituitar y slices. Otherwise, a dedicated pituitary MRI is not needed at this time. Endocrinology will watch for the remainder of her labs to return and will follow peripheral ly. Please do not hesitate to call if we can be of other assistance. Abbie Mack MD Endocrinology Fellow Pager [phone] This patient's assessment and plan was discussed with attending medicine tech Dr. Tg mcgowan who agrees with above assessment and recommendations. Interval events: - cosyntropin stim test done yesterday afternoon, and steroids stopped - transferred out of the ICU last night Inpatient Medications acetaminophen (TYLENOL) tablet 1,000 mg, 1,000 mg, oral, TID bisacodyl (DULCOLAX) suppository 10 mg, 10 mg, rectal, DAILY PRN cholecalciferol (VITAMIN D3) capsule 50,000 Units, 50,000 Units, oral, Q7D heparin injection 5,000 Units, 5,000 Units, subcutaneous, Q8H HYDROmorphone (DILAUDID) injection 0.2 mg, 0.2 mg, intravenous, Q3H PRN levothyroxine tablet 137 mcg, 137 mcg, oral, BEFORE BREAKFAST melatonin tablet 3 mg, 3 mg, oral, HS PRN midodrine (PROAMITINE) tablet 10 mg, 10 mg, oral, Q8H nystatin (MYCOSTATIN) ointment, , topical, BID nystatin (MYCOSTATIN) powder, , topical, BID omeprazole (PRILOSEC) capsule 20 mg, 20 mg, oral, BID ondansetron ODT (ZOFRAN ODT) tablet 4 mg, 4 mg, oral, Q8H PRN oxyCODONE (immediate release) (ROXICODONE) tablet 5-10 mg, 5-10 mg, oral, Q4H PRN polyethylene glycol (MIRALAX) packet 17 g, 17 g, oral, TID PRN polyethylene glycol (MIRALAX) packet 17 g, 17 g, oral, DAILY senna-docusate (SENOKOT S) 8.6-50 mg 2 tablet, 2 tablet, oral, BID Objective: Last Vitals: BP 93/47 (BP Location: Right upper arm, Patient Position: Lying on back) | Pu lse 78 | Temp 36.4 C (97.5 F) (Oral) | Resp 18 | Ht 1.575 m (5' 2") | Wt 98.7 kg (21 7 lb 8 oz) | SpO2 98% | BMI 39.78 kg/m | BSA 2.08 m O2 Delivery Device: None (room a ir) (08/28/19 1159) Last Vitals: BP 93/47 (BP Location: Right upper arm, Patient Position: Lying on back) | Pu lse 78 | Temp 36.4 C (97.5 F) (Oral) | Resp 18 | Ht 1.575 m (5' 2") | Wt 98.7 kg (21 7 lb 8 oz) | SpO2 98% | BMI 39.78 kg/m | BSA 2.08 m 24 Hour Vital Min/Max: Systolic (24hrs), Av , Min:85 , Max:107 Diastolic (24hrs), Av, Min:46, Max:77 Pulse Min: 72 Max: 83 Temp Min: 36.3 C (97.4 F) Max: 36.6 C (97.9 F) Resp Min: 16 Max: 18 SpO2 Min: 98 % Max: 100 % Intake/Output Summary (Last 24 hours) at 08/28/2019 1435 Last data filed at 08/28/2019 0700 Gross per 24 hour Intake 1020 ml Output 800 ml Net 220 ml Physical Exam: General: Sitting up in bed, conversant, pleasant HEENT: EOMI, MMM, no exophthalmos, no chemosis, sclera anicteric Resp: Breathing comfortably on room air Skin: slightly tanned complexion, baseline per patient. Neurologic: no facial droop, no gross neuro deficits Psychiatric: affect, mood and behavior normal Labs: CBC with diff last 72 hours (or 3 results) Recent Labs 08/26/19 0421 08/27/19 0437 08/28/19 0448 WBC 2.82* 2.99* 3.83 HB 9.6* 9.6* 9.5* HCT 32.2* 32.8* 30.5* PLT 129* 134* 142* NEUTROPERC 79.8* 69.5 70.3* LYMPHPERC 11.0* 19.1 17.2* MONOPERC 4.6 9.7* 9.4* BASOPERC 0.7 0.3 0.5 EOSPERC 3.5* 0.7* 2.1 Chemistries: Last 72 Hours (or 3 results): Recent Labs 08/26/19 1032 08/27/19 0436 08/27/19 1026 08/27/19 2244 08/28/19 1146 NA 138 < > 139 138 137 141 K 5.2* < > 5.2* 5.1* 5.0 4.6 CL 115* < > 114* 113* 112* 114* BICARB 17* < > 19* 19* 19* 22 BUN 29* < > 31* 35* 38* 38* CR 1.79* < > 2.01* 1.88* 1.95* 1.76* GLU 92 < > 102* 116* 97 85 CA 9.7 < > 9.2 8.9 8.8 8.9 PO4 2.1* -- 3.2 -- -- -- < > = values in this interval not displayed. Liver Tests: Last 72 hours (or 3 results) Recent Labs 08/25/19 1512 08/25/19 2049 08/26/19 0420 AST 51* 41 40 ALT 19 16 17 TBILI 0.8 0.7 0.7 AP 87 82 83 ALB 2.4* 2.5* 2.4* TP 6.0* 5.7* 5.7* Abbie Urena MD - 08/27/2019 2:31 PM PSTAssociated Order(s): IP CONSULT TO ENDOCRINOLOGY, DIABETES & METABOL ISM Endocrinology Initial Consult Note Reason for Consult: Hypotension Consult Attending: Tg Lacy MD Requesting Attending: Madhav Ghotra MD Assessment: Hank Altman is a 54 y.o. female with metastatic RCC who is referred for hypotension, wh ich appears to have improved with corticosteroid administration. She has no symptoms prior to admission that are very specific for adrenal insufficiency, bu t it could certainly be masqueraded in her severe fatigue and malaise. She has a number of r isk factors. RCC can be metastatic to the pituitary, causing central adrenal insufficiency. She could additionally have primary adrenal insufficiency, which her potassium level may poi nt to. She has not started her oncology treatment course yet, so this is not the cause, thou gh the immune modulating medications can affect pituitary function and cause other hormone a bnormalities. We recommend holding tomorrow's dexamethasone and getting an am cortisol stim test with ACT H level. The remainder of the pituitary hormones can be checked as well, and a pituitary pro tocol MRI can be helpful in ruling out metastases or other structural defects. Recommendations: - pituitary MRI - discontinue dexamethasone - tomorrow am do a 250 mcg cosyntropin stim test If no response, start hydrocortisone - IGF-1, LH, FSH, prolactin levels Thank you for this consult. The endocrine consult team will continue to follow. Abbie Mack MD Endocrinology Fellow Pager [phone] This patient's assessment and plan was discussed with attending medicine tech Dr. Tg mcgowan who agrees with above assessment and recommendations. Brief HPI: Hank Altman is a 54 y.o. female with a remote history of hodgkins lymphoma s /p CHOP and radiation with hypothyroidism and obesity. She was recently diagnosed with metas tatic renal cell carcinoma. She was being treated by oncology for hypercalcemia and cancer t reatment options were being discussed, but had not yet started. She was in the oncology clin ic receiving pamidronate when she was noted to be hyperkalemic and hypotensive and was refer red to the emergency room. There she was given 3L fluids without substantial improvements in her BP, so she was transferred to the ICU. Once in the ICU her cortisol was tested, then she was given 100 mg IV hydrocortisone, then transitioned to daily dexamethasone, as her blood pressure appeared to show a positive respo nse to the dexamethasone. She did not notice severe symptoms from the hypotension, though she states now she feels mu ch better than she did previously. She had been feeling very run down for some time. She had severe back pain, occasional nausea, and fatigue. She did not have dizziness, notable ortho stasis, or lightheadedness. No changes in skin pigmentation, new bruises, or new stretch mar ks. No fat redistribution. Did lose about 30 lb in the last 1.5 years, which she was happy a bout since she was exercising and watching her diet. ROS: See HPI Past Medical History Renal cell adenocarcinoma (HCC) * (Principal) Hypercalcemia of malignancy Hyperkalemia Hypothyroidism Compression fracture of L2 vertebra (HCC) Closed compression fracture of L2 lumbar vertebra, initial encounter (HCC) 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) Outpatient Medications Prior to Admission Medications Prescriptions atenolol 50 mg oral tablet Sig: Take 25 mg by mouth once daily. levothyroxine 137 mcg oral tablet Sig: Take 125 mcg by mouth before breakfast. lisinopril 5 mg oral tablet Sig: Take 5 mg by mouth once daily. lovastatin 20 mg oral tablet Sig: Take 20 mg by mouth once daily in the evening. Administer with evening meal. oxyCODONE (immediate release) 5 mg oral tablet Sig: Take 1-2 tablets by mouth every four hours as needed for breakthrough pain. Facility-Administered Medications: None Inpatient Medications acetaminophen (TYLENOL) tablet 1,000 mg, 1,000 mg, oral, TID bisacodyl (DULCOLAX) suppository 10 mg, 10 mg, rectal, DAILY PRN cholecalciferol (VITAMIN D3) capsule 50,000 Units, 50,000 Units, oral, Q7D heparin injection 5,000 Units, 5,000 Units, subcutaneous, Q8H HYDROmorphone (DILAUDID) injection 0.2 mg, 0.2 mg, intravenous, Q3H PRN levothyroxine tablet 137 mcg, 137 mcg, oral, BEFORE BREAKFAST midodrine (PROAMITINE) tablet 10 mg, 10 mg, oral, Q8H nystatin (MYCOSTATIN) ointment, , topical, BID nystatin (MYCOSTATIN) powder, , topical, BID omeprazole (PRILOSEC) capsule 20 mg, 20 mg, oral, BID ondansetron ODT (ZOFRAN ODT) tablet 4 mg, 4 mg, oral, Q8H PRN oxyCODONE (immediate release) (ROXICODONE) tablet 5-10 mg, 5-10 mg, oral, Q4H PRN polyethylene glycol (MIRALAX) packet 17 g, 17 g, oral, TID PRN polyethylene glycol (MIRALAX) packet 17 g, 17 g, oral, DAILY senna-docusate (SENOKOT S) 8.6-50 mg 2 tablet, 2 tablet, oral, BID No Known Allergies Family History Problem Relation Diabetes Mother Diabetes Father Hypertension Sister Diabetes Sister 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: [employer] Social Needs Financial resource strain: Not on [...] file Gets together: Not on file Attends rastafari service: Not on file Active member of club or organization: Not on file Attends meetings of clubs or organizations: Not on file Relationship status: Not on file Other Topics Concern Not on file Social History Narrative Lives in [place], 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 [employer], daughter in college, likes water aerobics Physical Exam Last Vitals: BP 97/61 | Pulse 77 | Temp 36.5 C (97.7 F) (Oral) | Resp 20 | Ht 1.575 m (5' 2") | Wt 102.3 kg (225 lb 8.5 oz) | SpO2 97% | BMI 41.25 kg/m | BSA 2.12 m 24 Hour Vital Min/Max: Systolic (24hrs), Av , Min:82 , Max:117 Diastolic (24hrs), Av, Min:43, Max:65 Pulse Min: 77 Max: 101 Temp Min: 36.4 C (97.6 F) Max: 37 C (98.6 F) Resp Min: 17 Max: 31 SpO2 Min: 93 % Max: 98 % Intake/Output Summary (Last 24 hours) at 08/27/2019 1431 Last data filed at 08/27/2019 1045 Gross per 24 hour Intake 1277.26 ml Output 2100 ml Net -822.74 ml Physical Exam: General: NAD, pleasant, conversant HEENT: EOMI, MMM, no exophthalmos, no chemosis, sclera anicteric Neck: No supraclavicular or cervical fat pads Cardiovascular: RRR, no murmur Respiratory: scattered crackles, no wheeze Abdominal: soft, NT/ND, no striae Extremities: no distal edema Skin: slightly tanned complexion, baseline per patient. no jaundice, no rashes on exposed s kin Neurologic: no facial droop, no gross neuro deficits Psychiatric: affect, mood and behavior normal Labs No results found for: A1C No results for input(s): CHOL, LDL, HDL, TRI in the last 8640 hours. Recent Labs 08/25/19 1512 08/25/199 08/26/19 0420 AST 51* 41 40 ALT 19 16 17 TBILI 0.8 0.7 0.7 AP 87 82 83 ALB 2.4* 2.5* 2.4* TP 6.0* 5.7* 5.7* Recent Labs 08/25/19 1512 08/25/19 2049 08/26/19 0420 08/27/19 0005 08/27/19 0436 08/27/19 1026 GLU 78 < > 84 < > 90 < > 106* 102* 116* BUN 34* < > 32* < > 32* < > 34* 31* 35* CR 1.93* < > 1.83* < > 1.85* < > 2.06* 2.01* 1.88* ALB 2.4* -- 2.5* -- 2.4* -- -- -- -- CA 10.2 -- 10.1 < > 10.1 < > 9.3 9.2 8.9 NA 137 < > 139 < > 139 < > 140 139 138 K 6.5* < > 5.6* < > 5.4* < > 5.5* 5.2* 5.1* CL 116* < > 115* < > 115* < > 114* 114* 113* BICARB 16* -- 19* < > 17* < > 18* 19* 19* < > = values in this interval not displayed. Lab Results Component Value Date TSH 11.90 08/25/2019 TSH 21.90 08/23/2019 Recent Labs 08/25/190 08/26/19 0421 08/27/19 043 WBC 2.69* 2.82* 2.99* HB 11.0* 9.6* 9.6* HCT 36.7 32.2* 32.8* PLT 108* 129* 134* NEUTROPERC 87.0* 79.8* 69.5 LYMPHPERC 6.3* 11.0* 19.1 MONOPERC 3.0* 4.6 9.7* BASOPERC 0.7 0.7 0.3 EOSPERC 2.6 3.5* 0.7* Recent Labs 08/24/19202208/25/19 0536 08/26/19 1032 08/27/19 0005 08/27/19 0436 08/27/19 1026 NA 138 < > 142 < > 138 < > 140 139 138 K 5.5* < > 5.2* < > 5.2* < > 5.5* 5.2* 5.1* CL 111* < > 116* < > 115* < > 114* 114* 113* BICARB 23 -- 22 < > 17* < > 18* 19* 19* BUN 43* < > 36* < > 29* < > 34* 31* 35* CR 2.06* < > 1.78* < > 1.79* < > 2.06* 2.01* 1.88* CA 11.9* -- 10.8* < > 9.7 < > 9.3 9.2 8.9 MG -- -- 1.7 -- -- -- -- -- -- PO4 3.3 -- -- -- 2.1* -- -- 3.2 -- < > = values in this interval not displayed. Liver Tests: Last 72 hours (or 3 results) Recent Labs 08/25/19 1512 08/25/199 08/26/19 0420 AST 51* 41 40 ALT 19 16 17 TBILI 0.8 0.7 0.7 AP 87 82 83 ALB 2.4* 2.5* 2.4* TP 6.0* 5.7* 5.7* Lab Results Component Value Date TSH 11.90 (H) 08/25/2019 Lab Results Component Value Date FREET4 1.1 08/25/2019 Associated attestation - Tg Lacy MD - 08/27/2019 8:51 PM PSTI personally interview ed the patient, performed the gonsales elements of the physical examination, have developed an up dated assessment and plan together with Dr. Parks, Geriatrics Fellow. I agree with the plans as documented except as documented below. In brief this is a 54 y.o. F with metastatic RCC presenting with hyperkalemia, hypotension, weight loss, fatigue. Random cortisol of 10 is low for someone in stressed ICU setting. She has improvements in BP/pressor requirements with steroid administration. Adrenals normal on CT and head CT normal as well. Stim test today with quite robust response. Baseline value cortisol low expected with dexam ethasone administered earlier today. Will follow up the rest of the labs as they come back, but given robust response on stim, adrenal insufficiency seems less likely. The only potenti al mechanism consistent with these labs would be an acute pituitary insult with in recent d ays/week where adrenal glands did not have time to atrophy. Consider adding pituitary cuts to MRI brain tumor protocol ordered by oncology to rule out above issue, would not do pituitary MRI alone. If remainder of pituitary labs unremarkable, then adrenal insufficiency very unlikely and c an discontinue steroids. Tg Lacy MD Compliance Specialist Division of Endocrinology Pager [phone] Carla Mercer, PharmD - 08/25/2019 5:50 PM PST Pharmacy Services: Admission Medication Reconciliation Prior to Admission Medications: Prior to Admission Medications Prescriptions atenolol 50 mg oral tablet Sig: Take 25 mg by mouth once daily. levothyroxine 137 mcg oral tablet Sig: Take 125 mcg by mouth before breakfast. lisinopril 5 mg oral tablet Sig: Take 5 mg by mouth once daily. lovastatin 20 mg oral tablet Sig: Take 20 mg by mouth once daily in the evening. Administer with evening meal. oxyCODONE (immediate release) 5 mg oral tablet Sig: Take 1-2 tablets by mouth every four hours as needed for breakthrough pain. Facility-Administered Medications: None The above list reflects the patient's prior to admission medication use and is complete and accurate to the best of my knowledge. Source of Medication Information: chart review, dispense history Reliability: Moderate All questions concerning medications, including OTC and herbal products, were addressed. For questions regarding this information please contact pharmacy, pager [phone] Thank you, Carla Mercer PharmD, BCPS Anisa Hernandez MD - 08/25/2019 9:43 AM PST INPATIENT ONCOLOGY INITIAL CONSULT NOTE Consultation Date: 08/25/2019 Reason for Consult: clear cell renal carcinoma Requesting Provider: Dr. Graham Outpatient Core Extruder/Oncologist: Dr. Ortiz HPI: Hank Altman is a 54 y.o. 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 Her symptoms started with left sided back pain in ~ June. Eventually she had such pain s he went to ED and CT a/p was done with showed large renal mass, retroperitoneal LN and also liver lesions. Subsequent biopsy of liver lesion showed clear cell carcinoma of kidney. She was subsequently referred to medical oncology at [facility], Dr. Ortiz, and had her first appt on 10/23. Labs obtained at that appointment demonstrated Cr 2.12, K of 6, Ca 13.6, and thus is a dmitted for management of these derangements. At the oncology visit, they discussed PEDIGREE trial for newly metastatic patients with plan to return for another appt to decide. Plan at that time was also to proceed with CT, bone scan, and brain MRI. She has received aggressive IV fluid hydration and pamidronate for hypercalcemia with impro vement in this as well as in serum Cr. She rates her pain at a 6/10 and finds some relief wi th oxycodone though finds it wears off. She has not had a bowel movement in 4-5 days and has decreased appetite. Past Oncologic History: Oncologist Dr. Lissette Ortiz MD ([facility] Oncology) 07/27/2019 - Diagnosed with left sided renal cell carcinoma after CT of abdomen and pelvis shows evidence of left renal vein invasion, hepatic metastasis 08/16/2019 - liver biopsy of metastasis shows evidence of clear cell carcinoma 08/23/2019 - CT scan with large left sided renal mass, large hepatic metastases, RML/RLL pu lmonary nodules and L2 compression fracture with 50% loss of lumbar vertebral height Past Medical History: Diagnosis Date Hodgkin's disease (HCC) 2001 CHOPP and radiation therapy Hypercalcemia of malignancy Hypertension Hypothyroidism Hypothyroidism Pathologic compression fracture of lumbar vertebra, initial encounter (HCC) Renal cell carcinoma (HCC) clear cell carcinoma of left kidney, 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, lungs, invasion of left pulm onary artery, L2 metastatic spread Review of Systems: As noted above or in the HPI, but otherwise a 12 system review was negative. Home Medications Prior to Admission Medications Prescriptions atenolol 50 mg oral tablet Sig: Take 25 mg by mouth once daily. levothyroxine 125 mcg oral tablet Sig: Take 125 mcg by mouth before breakfast. lisinopril 5 mg oral tablet Sig: Take 5 mg by mouth once daily. lovastatin 20 mg oral tablet Sig: Take 20 mg by mouth once daily in the evening. Administer with evening meal. oxyCODONE (immediate release) 5 mg oral tablet Sig: Take 1-2 tablets by mouth every four hours as needed for breakthrough pain. Facility-Administered Medications: None Current Inpatient Medications acetaminophen (TYLENOL) tablet 1,000 mg, 1,000 mg, oral, TID bisacodyl (DULCOLAX) suppository 10 mg, 10 mg, rectal, DAILY PRN enoxaparin (LOVENOX) injection 40 mg, 40 mg, subcutaneous, QPM HYDROmorphone (DILAUDID) injection 0.2 mg, 0.2 mg, intravenous, Q3H PRN [START ON 08/26/2019] levothyroxine tablet 137 mcg, 137 mcg, oral, BEFORE BREAKFAST omeprazole (PRILOSEC) capsule 20 mg, 20 mg, oral, DAILY PRN ondansetron ODT (ZOFRAN ODT) tablet 4 mg, 4 mg, oral, Q8H PRN oxyCODONE (immediate release) (ROXICODONE) tablet 5-10 mg, 5-10 mg, oral, Q4H PRN polyethylene glycol (MIRALAX) packet 17 g, 17 g, oral, TID PRN senna-docusate (SENOKOT S) 8.6-50 mg 1 tablet, 1 tablet, oral, BID sodium chloride (NS) 0.9 % infusion, 200 mL/hr, intravenous, CONTINUOUS atenolol 50 mg oral tablet, Take 25 mg by mouth once daily. levothyroxine 125 mcg oral tablet, Take 125 mcg by mouth before breakfast. lisinopril 5 mg oral tablet, Take 5 mg by mouth once daily. lovastatin 20 mg oral tablet, Take 20 mg by mouth once daily in the evening. Administer wit h evening meal. oxyCODONE (immediate release) 5 mg oral tablet, Take 1-2 tablets by mouth every four hours as needed for breakthrough pain. 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: [employer] Social Needs Financial resource strain: Not on [...] file Gets together: Not on file Attends rastafari service: Not on file Active member of club or organization: Not on file Attends meetings of clubs or organizations: Not on file Relationship status: Not on file Other Topics Concern Not on file Social History Narrative Lives in [place], 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 [employer], daughter in college, likes water aerobics Family History Problem Relation Diabetes Mother Diabetes Father Hypertension Sister Diabetes Sister Physical Exam: Last Vitals: BP (!) 118/52 | Pulse 100 | Temp 36.3 C (97.3 F) (Oral) | Resp 16 | Ht 1.575 m (5' 2.01") | Wt 94.6 kg (208 lb 8.9 oz) | SpO2 99% | BMI 38.14 kg/m | BSA 2.0 3 m 24 hour Vitals min/max : Systolic (24hrs), Av , Min:83 , Max:118 Diastolic (24hrs), Av, Min:46, Max:65 Pulse Min: 88 Max: 100 Temp Min: 36.3 C (97.3 F) Max: 36.3 C (97.3 F) Resp Min: 16 Max: 35 SpO2 Min: 81 % Max: 100 % General: Alert, oriented, and does not appear to be in any acute distress. HEENT: PERRL with no scleral icterus or conjunctival injection. Cardiac: Regular rate and rhythm, no murmurs, rubs, or gallops. Pulm: Clear to ausculation bilaterally, no wheezes, rales, or rhonchi. GI: Soft, nondistended abdomen with normoactive bowel sounds and no tenderness to palpation . No rebound, guarding or rigidity Extremities: Warm and well perfused, no pitting edema in the lower extremities bilaterally. MSK: tenderness to palpation over left flank Neuro: Cranial nerves grossly intact bilaterally. Psych: Pleasant and appropriate affect Data: Recent Labs 08/23/19 1202 08/24/19 1938 08/24/19 2212 08/25/19 0532 WBC 4.01 3.23* -- 3.94 HB 11.9* 11.6* 10.2* 10.3* HCT 37.9 37.5 30* 33.1* PLT 157 141* -- 113* NEUTROPERC 77.6* 71.5* -- 88.4* LYMPHPERC 10.5* 15.8* -- 5.3* MONOPERC 8.0 8.7 -- 3.3* BASOPERC 0.7 0.9 -- 0.5 EOSPERC 2.7 2.8 -- 2.0 Recent Labs 08/23/19 1202 08/24/19202208/24/19 2212 08/25/19 0536 NA 137 138 137 142 K 6.0* 5.5* 5.5* 5.2* CL 105 111* 110.0* 116* BICARB 24 23 -- 22 BUN 51* 43* 41* 36* CR 2.12* 2.06* 2.2* 1.78* GLU 99 105* 94 88 CA 12.9* 11.9* -- 10.8* MG -- -- -- 1.7 PO4 -- 3.3 -- -- Recent Labs 08/23/19 1202 08/24/19202208/25/19 0536 AST 42* 44* 36 ALT 21 23 16 TBILI 0.7 0.6 0.6 AP 89 108* 81 ALB 3.1* 2.9* 2.4* TP 6.9 6.8 5.7* Imaging CT c/a/p 08/23/2019 FINDINGS: Lack of intravenous contrast limits evaluation of the solid organs and vasculatur e. CHEST: The heart and great vessels are unremarkable. Large calcified mediastinal and right hilar lymph nodes favored to be sequelae of treated lymphoma. Predominantly perihilar and me dial lung bronchiectasis and reticulations are consistent with fibrotic radiation changes. 5 mm subpleural right middle lobe nodule (series 4 image 74). Two right lower lobe nodules me asure 6 mm (series 4 image 90) and 3 mm (series 4 image 95). No focal consolidation or pleur al effusion. LIVER: Multiple large confluent hepatic hypoattenuating metastatic lesions are again seen, better evaluated on multiphasic CT 07/27/2019. BILIARY: Layering sludge within the gallbladder. No intra or extra hepatic biliary dilatati on. PANCREAS: Unremarkable. SPLEEN: Unremarkable. ADRENALS: Unremarkable. KIDNEYS/URETERS: The right kidney is unremarkable. As before, the left kidney is markedly enlarged and heterogeneous with peripheral fat stran ding, consistent with renal cell carcinoma. Perirenal soft tissue mass at the superior-poste rior aspect of the left kidney measures approximately 3.5 x 1.8 cm, not significantly change d (series 1 image 103). Extensive collateral vessels are seen about this lesion secondary to previously seen renal vein invasion, which is not evaluated on today's noncontrast images. PELVIC ORGANS/BLADDER: Unremarkable. GI TRACT: Unremarkable. Normal appendix. PERITONEUM: Small hematoma in the right anterior peritoneum is likely sequelae of liver bio psy (series 1 image 145). No free air or fluid. LYMPH NODES: Metastatic para-aortic node measures 3.6 x 2.4 cm, unchanged (series 1 image 1 33). VESSELS: Extensive left gonadal and splenic venous collaterals. Enlargement of the left curt al vein reflects known metastatic invasion. BONES AND SOFT TISSUES: Redemonstrated lytic lesion in the L2 vertebral body with associate d pathological compression fracture with 50% height loss, previously 40% height loss (series 2 image 109). Healed right seventh rib fracture. The soft tissues are unremarkable. IMPRESSION: 1. Redemonstrated left renal cell carcinoma with extensive venous collateralization, reflec ting previously seen left renal vein invasion not evaluated on today's noncontrast study. 2. Redemonstrated large confluent hepatic metastases. 3. Several right middle and lower lobe pulmonary nodules, concerning for metastases. 4. Progressive now 50% height loss of pathological L2 compression fracture. 5. Sequelae of remote mediastinal radiation/treated lymphoma seen in the lungs and mediasti nal nodes, as described. 08/23/2019 NM whole body bone scan Lytic metastatic cold bone scan lesion within the left/anterior aspect of the L2 vertebral body, with adjacent hot lesion on the right side of L2 vertebral body, that may represent a non-lytic part of the adjacent metastasis or pathologic fracture of L2. Pathology 08/16/2019 liver biopsy Final Pathologic Diagnosis Liver mass, needle biopsy: Metastatic renal cell carcinoma, clear cell type [see comment] Comment: The malignant cell population is positive for PAX8 and CA-9 while negative for CK 7, HepPar-1, Arginase, Glypican 3, p63 and MARY-3 consistent with renal cell carcinoma. A r eticulin stain was performed and reviewed. Assessment: Hank Altman is a 54 y.o. female with pmh sig for Hodgkin's Lymphoma s/p CHOP + radiatio n c/b iatrogenic hypothyroidism (on levothyroxine), who was recently diagnosed with left taniya ed clear cell renal carcinoma on 08/16 with metastasis to left renal vein (path done on 08/07 0), liver, lungs, L2 lumbar spine with pathologic fracture who is admitted with hyperkalemia , hypercalcemia, and renal insufficiency. Electrolyte derangements improving. Recommendations: - consider palliative medicine consult, inpatient or outpatient, for new diagnosis of metas tatic renal cell carcinoma, pain management, and for other potential symptom management if/w hen starting clinical trial - please obtain PTHrp and 25 hydroxy vitamin D levels Thank you for this consult. We will continue to follow. I have reviewed the patient's case, findings, assessment and plan with my attending physici an, Dr. Brito, who agrees with the assessment and plan. Anisa Quinones MD Internal Medicine, PGY3 Associated attestation - Leah Brito MD - 08/30/2019 5:29 PM PSTMedical Oncology Atten ding Note Pursuant to Federal Medicare billing regulations, I certify that I have reviewed and agree with the previously summarized HPI, PMH, FH, SH, and ROS as documented in the detailed note of Dr. Quinones. I also performed a history and physical examination of the patient myself and and agree wit h the documented findings and plan of care. Plan: Hank Altman is a 54 y.o. yo female with clear cell renal carcinoma admitted for h ypercalcemia. Multiple labs pending. Rest per Stacie note. documented in this encounter ED Notes Barbara Beckham RN - 08/25/2019 8:56 PM PSTPatient at this time with PIV started by IV therapy. Labs sent at this time. MICU completed at bedside. Awaiting further orders.Electro nically signed by Barbara Beckham RN at 08/25/2019 8:57 PM Barbara Davenport RN - 1 10/26/2018 8:39 PM PSTPatient medicated per Barbara Davenport RN - 08/25/2019 8:39 PM PSTMICU at bedsideEl ectronically signed by Barbara Beckham RN at 08/25/2019 8:39 PM Barbara Davenport, Philip N - 08/25/2019 8:19 PM PSTAdmitting MD at bedside at this time to assess patient and consul t MICU. Patient remains hypotensive. Fluid stopped per MD. Attempted to collect lab work, un able to at this time due to difficult IV access. Aletha Quinn RN - 08/25/2019 7:50 PM PSTThidavid RN spoke wit h Inpt MD Rosie regarding CP and continued hypotension. Verbal order for troponin and VBG a long with the EKG. MICU to be consulted to evaluate the pt. Aletha Quinn RN - 08/25/2019 7:46 PM PSTPt states she is having CP x 45 min. Midsternal, nonradiating. Some SOB and nausea but states she has been having these symptoms related to pain. Pt requesting pain meds, continues to be hypoten sive. In pt team paged. EKG being completed. Masha Russell RN - 08/25/2019 4:12 PM PSTI have relinquished care of this patient. SBAR report to Samy DOUGLAS. Electronically signed by Masha Siddiqui RN at 4:13 PM Masha Russell RN - 08/25/2019 12:21 PM PSTBolus complete. BP slowly improving. Pt remains asymptomatic. Lunch ordered from kitchen. Denies needs. Call light in reach. Masha Russell RN - 08/25/2019 11:31 AM PSTBolus hung and infusing. Masha Russell RN - 08/25/2019 11:21 AM PST1st call paged (REDD Beatty): FYI ED RM6 Ms. Agapito - Hypotensive after oxycodone admin approx. 2 hours a go, slowly trending downwards. Pt asymptomatic. Thanks - Elyena Masha Russell RN - 08/25/2019 9:38 AM PSTPt up to BS with two assist, slow but steady on feet. Returned to bed. Pt c/o 8/10 back pain. Gi leeanne medications (see MAR). Inpatient MD at bedside. Call light in reach. Electronically sign ed by Masha Siddiqui RN at 08/25/2019 9:39 AM Masha Russell RN - 08/25/2019 7:36 AM PSTBreakfast ordered from kitchen. Electronically signed by Masha Siddiqui RN at 9 7:36 AM Masha Russell RN - 08/25/2019 7:31 AM PSTI have assumed care of this patie nt. SBAR report received from Aletha Hernandez RN. Pt awake, resting quietly. Given menu. Denies further needs. Call light in reach. Electronically signed by Masha Siddiqui RN at 9 7:32 AM Aletha Quinn RN - 08/25/2019 6:47 AM PSTRN Admission/Transfer Note Reason for admission: Renal Cell adenocarcinoma with mets to multiple areas; hyperkalemia, hypercalcemia, hypotension, pathological L2 compression fx Pertinent physical findings (Focused assessment, Pain/discomfort, Neuro, Cards/tele and Resp assessment): Recent renal cell carcinoma with mets and pathological L2 compression fx; went in for labs and found to be hyperkalemic and hypercalcemic, hypotensive in clinic Neuro: A&O x 4, neuro intact, denies numbness or weakness, difficulty ambulating due to chelle k pain Resp: Breathing even and unlabored, O2 sat 100% on RA, denies SOB Cards: Hypotensive, NSR, denies CP, SOB, or dizziness; hyperkalemic, hypercalcemic GI: distended abdomen without pain, some nausea related to being hungry, denies dirrahe Skin: WNL Patient-specific pain target: 4 Pertinent PMHx (See also Code Status, MAR, Results, Allergies, Medication reconciliation & Medical History): please see EMR Restrictions: None Psych/social assessment & interventions: No pertinent issues noted. No interventions needed . Safety risks (Identify patient triggers/safety concerns & effective interventions): fall ri sk Isolation status: None Legal status: Voluntary Medical/psychosocial stability: Moderately Unstable Transport/transitions concerns as related to stability: None Belongings check: Not Completed; Unsecured MD report called? yes Aletha Quinn RN - 08/25/2019 5:39 AM PSTPt up to bedside commode using two person assistance. PO pain meds g iven. Warm blankets provided, call rodriguez within reach. Aletha Quinn RN - 08/25/2019 3:36 AM PSTPt laying in be d in NAD, breathing even and unlabored. Pt states she has heartburn after eating applesauce. States it feels like normal heartburn, denies SOB or dizziness. Inpt team paged. Electronic ally signed by Aletha Humphreys RN at 08/25/2019 3:37 AM Deng Phelan MD - 9 2:20 AM PST IPAS(S) Handoff Note I received sign-out and accepted care of this patient from the departing resident and atten ding at 2:20 AM. Please see the primary providers note for complete elements of the histo ry, physical exam, and ED course. Illness Severity: Watcher Patient Summary: Most recent vital signs: BP (!) 91/47 | Pulse 97 | Temp 36.3 C (Oral) | Resp (!) 30 | Wt 94.6 kg (208 lb 8.9 oz) | SpO2 95% | BMI 38.15 kg/m | BSA 2.03 m Hank Altman is a 54 y.o. female with a PMHx of recently dx renal cell CA, remote hx of non hodgkins presented to the ED lab abn. Lab and imaging results: Lab Results Results for orders placed or performed during the hospital encounter of 08/24/19 BLOOD BANK HOLD TUBE - DON T PROCESS Result Value Ref Range SPECIMEN COLLECTED, HELD Sample received with adeq label/volume to process COMPLETE METABOLIC SET (NA,K,CL,CO2,BUN,CREAT,GLUC,CA,AST,ALT,BILI TOTAL,ALK PHOS,ALB,PROT TOTAL) Result Value Ref Range GLUCOSE, PLASMA (LAB) 105 (H) 70 - 99 mg/dL BUN, PLASMA (LAB) 43 (H) 6 - 20 mg/dL CREATININE PLASMA (LAB) 2.06 (H) 0.60 - 1.10 mg/dL EGFR - ANGOLAN 30 (L) >60 mL/min EGFR NON -ANGOLAN 25 (L) >60 mL/min SODIUM, PLASMA (LAB) 138 136 - 145 mmol/L POTASSIUM, PLASMA (LAB) 5.5 (H) 3.4 - 5.0 mmol/L CHLORIDE, PLASMA (LAB) 111 (H) 97 - 108 mmol/L TOTAL CO2, PLASMA (LAB) 23 21 - 32 mmol/L CALCIUM, PLASMA (LAB) 11.9 (H) 8.6 - 10.2 mg/dL CALCIUM(ALB CORRECTED) 12.8 (H) 8.6 - 10.2 mg/dL BILIRUBIN TOTAL 0.6 0.3 - 1.2 mg/dL TOTAL PROTEIN, PLASMA (LAB) 6.8 6.4 - 8.2 g/dL ALBUMIN, PLASMA (LAB) 2.9 (L) 3.5 - 4.7 g/dL ALK PHOS 108 (H) 42 - 98 U/L AST(SGOT) 44 (H) <=41 U/L ALT (SGPT) 23 <=60 U/L ANION GAP 4 4 - 11 mmol/L ANION GAP(ALB CORRECTED) 6 4 - 11 mmol/L POTASSIUM CMNT No Hemo BILI T CMNT No Hemo AST CMNT No Hemo BUN/CREATININE RATIO 21 8 - 25 GLOBULIN LVL 3.9 (H) 2.3 - 3.5 gm/dL ALBUMIN/GLOBULIN RATIO 0.7 (L) 0.9 - 2.0 URINE, MICROSCOPIC EXAM Result Value Ref Range RED CELLS 439 (H) 0 - 3 /hpf WHITE CELLS <1 0 - 5 /hpf BACTERIA None None [...] /hpf AMORPHOUS CRYSTALS None None, Few /hpf URINE SCREEN FOR CULTURE Result Value Ref Range URINE SCREEN FOR CULTURE Negative Negative INR Result Value Ref Range INR 1.07 0.90 - 1.20 INR URIC ACID, PLASMA Result Value Ref Range URIC ACID, PLASMA (LAB) 11.2 (H) 2.5 - 6.2 mg/dL LDH TOTAL, PLASMA Result Value Ref Range LD TOTAL, PLASMA 387 (H) <=250 U/L LD CMNT No Hemo PHOSPHORUS, PLASMA Result Value Ref Range PHOSPHORUS, PLASMA (LAB) 3.3 2.4 - 4.7 mg/dL 12 LEAD ECG Result Value Ref Range VENTRICULAR RATE 90 bpm ATRIAL RATE 90 ms P-R INTERVAL 211 ms P AXIS 38 deg QRS DURATION 104 ms QT 356 ms QTC-BAZETT 436 ms R AXIS -89 deg T AXIS 9 deg ECG IMPRESSION Sinus rhythm ECG IMPRESSION Prolonged IL interval ECG IMPRESSION Left axis deviation- ABNORMAL ECG - ECG IMPRESSION Electronically signed by: PRELIMINARY - Unconfirmed CHEM 8 W/H&H,POC Result Value Ref Range SODIUM, POC 137 134 - 143 mmol/L POTASSIUM, POC 5.5 (H) 3.4 - 5.0 mmol/L CHLORIDE, POC 110.0 (H) 97 - 108 mmol/L IONIZED CALCIUM, POC 1.74 (H) 1.14 - 1.32 mmol/L TCO2, POC 24 22 - 28 mmol/L GLUCOSE, POC 94 70 - 99 mg/dL BUN, POC 41 (H) 6 - 20 mg/dL CREATININE, POC 2.2 (H) 0.6 - 1.1 mg/dL HEMOGLOBIN, POC 10.2 (L) 12.0 - 16.0 g/dL HEMATOCRIT, POC 30 (L) 36.0 - 46.0 %PCV CBC AND AUTO DIFF Result Value Ref Range WHITE CELL COUNT 3.23 (L) 3.50 - 10.80 K/cu mm RED CELL COUNT 4.14 4.00 - 5.20 M/cu mm HEMOGLOBIN 11.6 (L) 12.0 - 16.0 g/dL HEMATOCRIT 37.5 36.0 - 46.0 % MCV 90.6 80.0 - 100.0 fL MCHC 30.9 (L) 32.0 - 36.0 g/dL RDW SD 50.3 (H) 35.1 - 46.3 fL PLATELET COUNT 141 (L) 150 - 400 K/cu mm MPV 9.0 (L) 9.7 - 12.3 fL NRBC% 0.6 (H) 0.0 - 0.3 % NRBC# 0.02 0.00 - 0.02 K/cu mm NEUTROPHIL % 71.5 (H) 50.0 - 70.0 % LYMPHOCYTE % 15.8 (L) 18.0 - 42.0 % MONOCYTE % 8.7 3.5 - 9.0 % EOS % 2.8 1.0 - 3.0 % BASO % 0.9 0.0 - 2.0 % IG% 0.3 0.0 - 1.0 % NEUTROPHIL # 2.31 1.80 - 7.70 K/cu mm LYMPHOCYTE # 0.51 (L) 1.00 - 4.80 K/cu mm MONOCYTE # 0.28 0.10 - 0.90 K/cu mm EOS # 0.09 0.00 - 0.50 K/cu mm BASO # 0.03 0.00 - 0.10 K/cu mm IG# 0.01 0.00 - 0.10 K/cu mm Medications morphine injection 2-4 mg (2 mg intravenous Given 08/24/192134) sodium chloride (NS) 0.9 % infusion (200 mL/hr intravenous New Bag 08/25/19 0010) sodium chloride (NS) 0.9 % bolus 1,000 mL (0 mL intravenous Stopped 08/24/192352) ondansetron (ZOFRAN) injection 4 mg (4 mg intravenous Given 08/24/192135) sodium chloride (NS) 0.9 % bolus 1,000 mL (0 mL intravenous Stopped 08/24/192352) oxyCODONE (immediate release) (ROXICODONE) tablet 10 mg (10 mg oral Given 08/24/198) oxyCODONE (immediate release) (ROXICODONE) tablet 5 mg (5 mg oral Given 08/25/19 0206) Imaging Results (last 24 hours) No results found. Action plan (To Do): -admitted to medicine -continue to monitor BPs -Continue fluids ED Course Following Sign Out: No issues while under our care in the ED DENG COPE MD Aletha Romero RN - 08/25/2019 2:08 AM PSTI have assumed care of this patient from MISAEL Puri . The patient is laying in bed in NAD, breathing even and unlabored. Pt continues to be hypo tensive after fluid resuscitation. Pt mentating well, skin is pwd. Pt denies CP, SOB, or diz ziness. In pt team states to notify them if MAP's are below 60 and pt becomes symptomatic. P t assisted to the bedside commode with 2 staff assist d/t back pain. Pt given PO oxy and jel lo for slight nausea related to being hungry. Pt updated on the plan: AM labs, re- eval of K +. Pt denies any further needs. Call rodriguez given. Najma Vela RN - 08/24/2019 10:55 PM PAULINE Logan at bedside c onsulting with pt Tho Hairston MD - 08/24/2019 10:43 PM PSTFormatting of this note might be different from the [facility]. ED Shared Provider Note, co-authored by Aleksey Sanchez MD and Chelita Logan MD: HPI Mrs. Altman is a 54 yo female with a history of IV renal cell carcinoma, hypercalcemia of malignancy, remote history of Hodgkin disease s/p CHOPP and radiation with resultant hypoth yroidism who presents from clinic for hypotension, hypercalcemia and hyperkalemia, recent CT showing L2 compression fracture. States back pain has been slowly progressing since 06/25. Low back pain, all across the ba ck, severe, but occasionally only on one side. No radiation down the legs. Oxycodone is impr oving the pain. Worse with movements. No clear traumatic event. No numbness, tingling, weakn ess, no bowel or bladder incontinence, saddle anesthesia, fevers. No IVDU. No history of chelle k surgeries. No anticoagulants. Reports one month of reduced PO intake. Thinks she may have lost weight. Denies weakness, fatigue, fevers, chills, chest pain, shortness of breath, syncope, confusi on, urinary symptoms, diarrhea, sick contacts. She did receive pamidronate today at clinic. PCP: Lissette Milner PA-C Patient Active Problem List Diagnosis Date Noted Hyperkalemia 08/24/2019 Hypothyroidism 08/24/2019 Compression fracture of [...] fracture of lumbar vertebra, initial encounter (HCC) Hypertension Past Surgical History Procedure Date C section 2000 Knee surgery 1980 Mediport insertion placed in left chest site in 2001 w/ removal in 2002 Medications Prior to Admission Medications Prescriptions Last Dose Informant Patient Reported? Taking? atenolol 50 mg oral tablet 08/24/2019 at Unknown time Yes Yes Sig: Take 25 mg by mouth once daily. levothyroxine 125 mcg oral tablet 08/24/2019 at Unknown time Yes Yes Sig: Take 125 mcg by mouth before breakfast. lisinopril 5 mg oral tablet 08/24/2019 at Unknown time Yes Yes Sig: Take 5 mg by mouth once daily. lovastatin 20 mg oral tablet 08/23/2019 at Unknown time Yes Yes Sig: Take 20 mg by mouth once daily in the evening. Administer with evening meal. oxyCODONE (immediate release) 5 mg oral tablet 08/24/2019 at Unknown time No Yes Sig: Take 1-2 tablets by mouth every four hours as needed for breakthrough pain. Facility-Administered Medications: None Allergies No Known Allergies reports that she has never smoked. She has never used smokeless tobacco. She reports previ ous alcohol use. She reports that she does not use drugs. 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: [employer] Social Needs Financial resource strain: Not on [...] file Gets together: Not on file Attends rastafari service: Not on file Active member of club or organization: Not on file Attends meetings of clubs or organizations: Not on file Relationship status: Not on file Other Topics Concern Not on file Social History Narrative Lives in [place], 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 HENT: Negative. Respiratory: Negative for chest tightness and shortness of breath. Cardiovascular: Negative for chest pain. Gastrointestinal: Negative. Endocrine: Negative. Genitourinary: Negative. Musculoskeletal: Positive for back pain. Neurological: Negative for syncope and weakness. Hematological: Negative. Psychiatric/Behavioral: Negative. Complete ROS performed and negative except as noted in HPI. ED Triage Vitals BP Temp Heart Rate Pulse - Plethysmograph Resp SpO2 08/24/19 1822 08/24/19 1822 08/24/19 1822 08/24/19 1825 08/24/19 1822 08/24/19 1825 (!) 92/58 36.3 C 88 91 pulses/min 16 97 % Physical Exam GEN: obese female, appears mildly uncomfortable. HEENT: NCAT NECK: FROM SKIN: WWP, dry CV:RRR, no mgr RESP: CTAB, no w/r/r ABD: soft, nd, nt MSK: back with midline ttp in lumbar region. NEURO: alert and oriented to person, place, and time, no focal deficits noted. ED COURSE AND MEDICAL DECISION MAKING: Hank Altman is a 54 y.o. female presenting with lab abnormalities. A review of some of the patient s prior medical records was performed using chart review and Care Everywhere. Given the patient's history and exam, initial differential diagnosis includes but is not li mited to tumor lysis syndrome, pathologic fracture, trauma, malignancy progression, dehydrat ion. ED Course as of Aug 25 124ThuAug 24, 2019 182 Evaluated the patient, ABCs intact and she is mentating appropriately. [LB] 1959 Vital signs are notable for hypotension, no tachycardia, no tachypnea, no hypoxemia, a febrile. [LB] 1999 CBC with leukopenia, normocytic anemia stable compared to prior, mild thrombocytopenia . [LB] 2054 UA with significant WBCs. [LB] 2233 Chem 8 with hyperkalemia, hyperchloremia, hypercalcemia, elevated Cr. [LB] 2250 CMP with elevated Cr (stable compared to prior earlier today), hyperkalemia, hypercalc emia. [LB] 2326 Admitted to clinical hospitalist. [LB] 2332 INR WNL [LB] Yazmin Aug 25, 2019 0113 EKG: NSR, rate of 90, IL prolonged, LAD, QRS nml, no QT prolongation, no NOAH or STD to suggest acute ischemia. No evidence of peaked T wave. [AM] 0115 LDH elevated [AM] 0115 Uric Acid elevated [AM] 0115 UA pending, Udip pending [AM] 0115 Labs concerning for possible tumor lysis syndrome, but no immediate indication for aysha buricase. [AM] ED Course User Index [AM] Aleksey Sanchez MD [LB] Chelita Logan MD Discussed with hematology, who recommended admission for IV hydration and pain control. Manolo l follow along with admission to medicine. Given this, patient required admission for further care. We spoke to the [facility], who accepted patient to their service. ED Medication Administration from 08/24/2019 1815 to 08/25/2019 0124 Date/Time Order Dose Route Action 08/24/20192134 morphine injection 2-4 mg 2 mg intravenous Given 08/24/20192135 ondansetron (ZOFRAN) injection 4 mg 4 mg intravenous Given 08/24/2019 2308 oxyCODONE (immediate release) (ROXICODONE) tablet 10 mg 10 mg oral Given 08/24/2019 183 sodium chloride (NS) 0.9 % bolus 1,000 mL 1,000 mL intravenous New Bag 08/24/2019 2212 sodium chloride (NS) 0.9 % bolus 1,000 mL 1,000 mL intravenous New Bag 08/25/2019 0010 sodium chloride (NS) 0.9 % infusion 200 mL/hr intravenous New Bag Admit Requested: Aug 24, 2019 11:32 PM IMPRESSION: E83.52 Hypercalcemia of malignancy E87.5 Hyperkalemia S32.020A Closed compression fracture of L2 lumbar vertebra, initial encounter (HCC) C64.2 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) PLAN, DISPOSITION AND FOLLOW-UP: New Prescriptions No medications on file Lore Dang RN - 08/24/2019 10:39 PM PSTPer lab CMP is being ran now. Stanley Kitchen RN - 08/24/2019 6:58 PM PSTPatient being fallon juice for renal cell adenocarcinoma [facility] 2 infusion room brought in for fluids and biphos Brought in for hypercalcemia Hypotensive 81/42 K+ 6 Corrected calcium 13.6 Cr 2.12 BUN 51 Compression fx L2 found on CT, possible cord compression CT results: IMPRESSION: 1. Redemonstrated left renal cell carcinoma with extensive venous collateralization, reflec ting previously seen left renal vein invasion not evaluated on today's noncontrast study. 2. Redemonstrated large confluent hepatic metastases. 3. Several right middle and lower lobe pulmonary nodules, concerning for metastases. 4. Progressive now 50% height loss of pathological L2 compression fracture. 5. Sequelae of remote mediastinal radiation/treated lymphoma seen in the lungs and mediasti nal nodes, as described. Hx Hodgkin's disease rtega Perrin RN - 08/24/2019 3:33 PM PSTAshlee DOUGLAS - Oncology - [id number] Patient being treated for renal cell adenocarcinoma [facility] 2 infusion room brought in for fluids and biphos Brought in for hypercalcemia Hypotensive 81/42 K+ 6 Corrected calcium 13.6 Cr 2.12 BUN 51 Compression fx L2 found on CT, possible cord compression CT results: IMPRESSION: 1. Redemonstrated left renal cell carcinoma with extensive venous collateralization, reflec ting previously seen left renal vein invasion not evaluated on today's noncontrast study. 2. Redemonstrated large confluent hepatic metastases. 3. Several right middle and lower lobe pulmonary nodules, concerning for metastases. 4. Progressive now 50% height loss of pathological L2 compression fracture. 5. Sequelae of remote mediastinal radiation/treated lymphoma seen in the lungs and mediasti nal nodes, as described. Hx Hodgkin's disease documented in this encounter Miscellaneous Notes Plan of Care - Janae Iyer RN - 09/01/2019 2:38 PM PSTDischarged patient. Pt endorses feeling safe and ready to leave the hospital. Reviewed AVS, medications, follow up appts and s/sx requiring immediate follow up. Pt did not have questions at this time. Belongings revi ewed and items sent to safe retrieved. Removed PIV. VS taken. Pt left unit at 1500. lan of Care - Suraj Washburn, PT - 09/01/2019 9:59 AM PSTFormatting of this note might be different from the o riginal. Physical Therapy Evaluation and Discharge 09/01/2019 10:00 AM Hospital Day: [id number] HANK ALTMAN Date of : 1965 Start of care: 08/24/2019 Referring/Attending Practitioner: Najma Bryant MD Primary/Referral Diagnosis/ICD-9: E83.52 Hypercalcemia of malignancy E87.5 Hyperkalemia S32.020A Closed compression fracture of L2 lumbar vertebra, initial encounter (HCC) C64.2 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) Insurance: Payor: [employer] / Plan: [employer] / Product Type: Indemnity / Service period from: 09/01/2019 to 11/30/2019 Patient Class: Inpatient Time in: 0938 Time out: 0959 Patient was seen for a total of 21 minutes of direct one on one skilled physical therapy wh ich included initial evaluation. Patient seen on 5C Present throughout session in addition to patient and therapist: no one Brief Hospital Course: "Hank Altman is a 54 y/o F h/o Hodgkin's lymphoma s/p CHOP and XRT, hypothyroidism, recently diagnosed metastatic RCC, initially admitted for hypotension, hypercalcemia and hyperkalemia, transferred to MICU on 08/26 for hypotension requiring press or support, now stabilized..." (per redd prescott note 08/31/19) Relevant Precautions: Lumbar spinal precautions Indication for PT Evaluation: Instruction for safety with mobility following surgery or inj ury Past Medical History: Diagnosis Date Hodgkin's disease (HCC) 2001 Hypercalcemia of malignancy Hypertension Hypothyroidism Hypothyroidism Pathologic compression fracture of lumbar vertebra, initial encounter (HCC) Renal cell carcinoma (HCC) Past Surgical History: Procedure Laterality Date C SECTION KNEE SURGERY Left 1980 mediport insertion Living Environment: reports will be staying with sister in single level home with 1 step to enter, no rail. Has flat bed, walk in shower, can get bench if needed. Equipment at home: has front wheeled walker and single point cane at home. 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 Patient / Family Goal: to go home Communication: appropriate Barriers: none Pain: "pretty good," otherwise does not state Vital signs: stable per observation Cognitive Screen Level of alertness: alert and awake Orientation: x4 Quality of responses: good, appropriate Command following: good, able to follow 2-step commands Judgment / safety awareness: Good, appears safe Physical Assessment ROM: within functional limits Strength: within functional limits, otherwise not formally tested, patient ambulating ad-l ib Edema: bilateral LE's Skin Integrity: appears intact Posture: increased shoulder height with gait, otherwise good Neurological Function Sensation: intact Muscle Tone: normal Proprioception: NT Gross Motor: intact Fine Motor: intac Balance: Sitting static: independent Sitting dynamic: independent Standing static: Mod (I) with front wheeled walker Standing dynamic: supervision with front wheeled walker Mobility & Transfers: Supine to sit: NT, patient in chair upon arrival of PT. Sit to supine: NT, patient left sitting in chair. Sit to stand: Mod (I) with front wheeled walker Stand to sit: Mod (I) with front wheeled walker Scoot: independent Stand pivot transfer: NT Gait: supervision x 150 feet with front wheeled walker, slow but steady, no major gait gage ations, good front wheeled walker management, no loss of balance. Stairs: NT Therapeutic Exercises: seated LE exercise handout provided including ankle pumps, seated ma rches (reclined < 90 degrees), long arc quadriceps. Outcome Measure: [facility] BASIC MOBILITY Difficulty turning over in bed 4 - None - Modified Independent/Independent Difficulty sitting/standing from chair w/ arms 4 - None - Modified Independent/ Independent Difficulty moving from supine to sitting on edge of bed 4 - None - Modified Independent/Ind ependent Help needed moving from /to chair/wheelchair 4 - None - Modified Independent/Independent Help needed walking in hospital room 4 - None - Modified independent/Independent Help needed climbing 3-5 steps w/railing 3 - A Little - Minimal/Contact Guard Assist/Superv ision [facility] Basic Mobility Total Score 23 Interpretation of [facility] Short Form - Basic Mobility: CMS Modifier [...] underestimate Treatment and education provided this date: reason for PT consult, importance of mobilizing several times per day, use of front wheeled walker at home for increased ambulation distanc es, discussed sitting therex (handout provide). Ended session: Pt left sitting in chair at end of treatment with needs met, call light hand y, nursing informed. ASSESSMENT: Hank Altman is a 54 year old admitted on 08/24/2019 with prior level of functionally in dependent. Patient presents here with h/o Hodgkin's lymphoma s/p CHOP and XRT, hypothyroidis m, recently diagnosed metastatic RCC, initially admitted for hypotension, hypercalcemia and hyperkalemia. Additionally with closed compression fracture of L2 lumbar vertebra with L2 Ky phoplasty performed on 08/29/19. Hank demonstrates good functional mobility, strength, and has good tolerance and activity and endurance. Recommend DC home with assist from sister elliott d home health PT for safe return to her functional baseline. Personal factors/Comorbidities: Behavior: None Learning Factors: None. Social Issues: None Medical Conditions Impacting Care: Multiple co-morbidities, Oncological and Orthopedic Moderate - 1-2 personal factors. Body Systems Elements: Body structures & functions: Pain Activity limitations: Impaired gait, Difficulty with stairs and Difficulty with activities of daily living Participation restrictions: Work related impairments, Driving, Community activities and spi nal precautions. Moderate - 3 or more elements Clinical Presentation: Moderate - Evolving: Pain response Clinical decision making: Moderate Complexity: Clinical coordination of care Complexity: moderate Hank's knowledge of disease process: Excellent The patient requires services that can be safely and effectively performed only by a quali fied therapist to address the aforementioned and highlighted problems and goals. ACTIVITY PLAN: *Nursing to re-assess per shift as needed.* - Lights on and curtains open during day hours. - Up to chair for meals or 3x/day with front wheeled walker and 1person assist. - Routine ambulation in hallway 3x/day with front wheeled walker and 1 person assist. ~THANK YOU~ DISCHARGE RECOMMENDATIONS: Home with assist PRN;Continued PT at next level of care (HHPT ) Equipment recommendations: none PLAN: DC inpatient PT at this time. Suraj Washburn PT, DPT Should this patient discharge from the hospital prior to the next physical therapy treatmen t, this note shall serve as the discharge summary. [place] - Luke Chowdary RN - 09/01/2019 5:02 AM PSTNursing Handoff Patient Daily Goal: "Sleep tonight." (08/29/19 1040) Patient Specific Preferences: pain mangement (08/28/19 1159) [facility] IP NURSE HANDOFF: [facility] hospital course events: 54 y.o. woman w/ metastatic renal cell c arcinoma admitted to the MICU for fluid refractory hypotension. Patient's hospital course poe s been complicated by ongoing hyperkalemia, metabolic acidosis, hypotension with MAPs<65, un clear urine output, despite aggressive IVF resuscitation with clinical signs of volume overl oad. 08/27 off norepinephrine, on midodrine with MAP 60-70. Endocrinology consulted and MRI Pitu itary scheduled. COMFORT/ANXIETY/BEHAVIOR Patient/Family Target: Hank will report pain <6/10 this shift Progress to Target: Improving As evidenced by: -Vertebroplasty completed 2 days ago. Reports overall less pain than prior to procedure. Has declined oxycodone this shift, continues with scheduled APAP NURSING ASSESSMENT & RECOMMENDATIONS FORWARD Nursing Assessment of Patient Stability Risk: Moderately stable Recommendations Forward: -SBA w/FWW -calling appropriately -Strict I&O -Watch BPs closely-admitted with refractory hypotension; BPs have been steadily improving; pt has denied all s/sx of hypotension -Continue to monitor back pain -Encourage hydration and participation in ADLs Barriers to discharge: Plan to d/c 09/01 pending labs and care coordination with outpatient labs andoff - Odette Montoya RN - 08/31/2019 7:41 PM PSTNursing Handoff Patient Daily Goal: "Sleep tonight." (08/29/19 8717) Patient Specific Preferences: pain mangement (08/28/19 7940) [facility] IP NURSE HANDOFF: [facility] hospital course events: 54 y.o. woman w/ metastatic renal cell c arcinoma admitted to the MICU for fluid refractory hypotension. Patient's hospital course poe s been complicated by ongoing hyperkalemia, metabolic acidosis, hypotension with MAPs<65, un clear urine output, despite aggressive IVF resuscitation with clinical signs of volume overl oad. 08/27 off norepinephrine, on midodrine with MAP 60-70. Endocrinology consulted and MRI Pitu itary scheduled. COMFORT/ANXIETY/BEHAVIOR Patient/Family Target: Hank will report pain <6/10 this shift Progress to Target: Improving As evidenced by: -Vertebroplasty completed 2 days ago. Reports overall less pain than prior to procedure. Has declined oxycodone this shift, continues with scheduled APAP -Hank was able to tolerate shower. -Ambulated in rosales without increase in pain. NURSING ASSESSMENT & RECOMMENDATIONS FORWARD Nursing Assessment of Patient Stability Risk: Moderately stable Recommendations Forward: -SBA w/FWW -calling appropriately -Strict I&O -Watch BPs closely-admitted with refractory hypotension; BPs have been steadily improving; pt has denied all s/sx of hypotension -Continue to monitor back pain -Encourage hydration and participation in ADLs Barriers to discharge: Plan to d/c tomorrow pending labs and care coordination with outpati ent labs andoff - Ricardo Chowdary RN - 08/31/2019 6:43 AM PSTNursing Handoff Patient Daily Goal: "Sleep tonight." (08/29/192111) Patient Specific Preferences: pain mangement (08/28/19 5642) [facility] IP NURSE HANDOFF: [facility] hospital course events: 54 y.o. woman w/ metastatic renal cell c arcinoma admitted to the MICU for fluid refractory hypotension. Patient's hospital course poe s been complicated by ongoing hyperkalemia, metabolic acidosis, hypotension with MAPs<65, un clear urine output, despite aggressive IVF resuscitation with clinical signs of volume overl oad. 08/27 off norepinephrine, on midodrine with MAP 60-70. Endocrinology consulted and MRI Pitu itary scheduled. SAFETY Patient/Family Target: Hank will be hemodynamically stable Progress to Target: No Change As evidenced by: Hank had bps that were stable all shift, the lowest was 106/50 in the AM, denied dizzi ness or lightheadedness COMFORT/ANXIETY/BEHAVIOR Patient/Family Target: Hank will report pain <6/10 this shift Progress to Target: Improving As evidenced by: Denied pain that required prn medications all shift NURSING ASSESSMENT & RECOMMENDATIONS FORWARD Nursing Assessment of Patient Stability Risk: Moderately unstable Recommendations Forward: -SBA w/FWW to bathroom -Strict I&O/Daily weights -Watch BPs closely -Continue to monitor back pain -Continue aggressive bowel medications -Consult palliative care -Encourage hydration and participation in ADLs -Daughter and son staying with family in [place]; may need to consult CM/SW for help with arrangements Barriers to discharge: -DC today depending on labs and BP andoff - Odette Montoya RN - 08/30/2019 5:35 PM PSTNursing Handoff Patient Daily Goal: "Sleep tonight." (08/29/192111) Patient Specific Preferences: pain mangement (08/28/19 4642) [facility] IP NURSE HANDOFF: [facility] hospital course events: 54 y.o. woman w/ metastatic renal cell c arcinoma admitted to the MICU for fluid refractory hypotension. Patient's hospital course poe s been complicated by ongoing hyperkalemia, metabolic acidosis, hypotension with MAPs<65, un clear urine output, despite aggressive IVF resuscitation with clinical signs of volume overl oad. 08/27 off norepinephrine, on midodrine with MAP 60-70. Endocrinology consulted and MRI Pitu itary scheduled. COMFORT/ANXIETY/BEHAVIOR Patient/Family Target: Hank will report pain <6/10 this shift Progress to Target: Improving As evidenced by: -Vertebroplasty completed yesterday. Reports overall less pain than prior to procedure. Has received 10 mg oxycodone 2x this shift. -Hank was able to tolerate hour-long MRI. -Ambulated in rosales without increase in pain. NURSING ASSESSMENT & RECOMMENDATIONS FORWARD Nursing Assessment of Patient Stability Risk: Moderately stable Recommendations Forward: -SBA w/FWW -calling appropriately -Strict I&O/Daily weights -Watch BPs closely-admitted with refractory hypotension; BPs have been steadily improving; pt has denied all s/sx of hypotension -Continue to monitor back pain -Encourage hydration and participation in ADLs Barriers to discharge: Plan to d/c tomorrow pending labs lan of Care - Cee Abarca, KESHA - 08/30/2019 9:44 AM PSTFormatting of this note might be different from the origi nal. Problem: Nutrition Interventions Intervention: Food and nutrient distribution type or amount Consult received. Patient seen by MICU RD on 08/26. Followed up with her today. She reports generally her appetite is ok, but she was feeling a little nauseas during our visit. She re ports decreased appetite for the past few months. She thinks she has lost some weight, but n ot able to easily quantify. I spoke w/ her about eating regular meals, moving to more small, frequent meals if appetite is poor. She said often times eating a large meal is difficult. Encouraged her to pair prot ein foods with carb food. Reviewed some examples. Her renal function has improved, but I did discuss not eating excess protein which is not recommend for JONO. I do not expect her to co ntinue to need a potassium restriction, but will continue to monitor that. Mentioned her her that meal replacement drinks like Boost/Ensure would be ok if she really does not feel like taking a meal. Nutrition diagnosis: Predicted inadequate intake related to decreased appetite as evidenced by patient reports decreased appetite *Patient does not meet criteria for malnutrition at this time Nutrition Recommendations: - Continue current diet, if renal function continues to improve, remove K+ restriction - Encourage po intake as tolerated - Can offer Boost Plus supplements if PO is poor, Nepro if renal function declines though - Monitor lytes, replete prn - Bowel regimen prn Goal of nutrition care: To promote adequate po intake Following, Cee Abarca, MS, RD, LD, CNSC Pager #: [phone] Nutrition Assessment: Admitting Dx: Hank Altman is a 54 y.o. 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, liver, lungs , L2 lumbar spine with pathologic fracture who presented to outpatient infusion appointment with new hypotension, acute renal injury in setting of new diagnosis of hypercalcemia of mal ignancy prompting presentation to ED for admission to hospital medicine service for use of I VF and frequent laboratory monitoring Food allergies/intolerances: none noted Diet order: regular, 2 gm K+ restriction; PO: 100% of 1 meal documented yesterday Pertinent Labs: Phos 2.2, K+ 4.5, Cr 1.42, BUN 26 Pertinent Meds: 41132 units cholecalciferol weekly, levothyroxine Last BM: 08/29 Skin: back incision Admit Ht: 62" | Admit Wt: 94.6 kg | Admit BMI: 38.1 kg/m2 | IBW: 50 kg | Admit %IBW: 189% | Admit AdjBW: 61.2 kg Wt Readings from Last 10 Encounters: 08/28/19 98.7 kg (217 lb 8 oz) 08/24/19 94.6 kg (208 lb 8.9 oz) 08/16/19 95.7 kg (211 lb) Estimated needs: 5606-0447 kcal/day (MSJx1.1-1.3); 75-100 g protein/day (1.5-2 g/kg IBW) Nutrition Focused Physical Exam: completed 08/30/19 Subcutaneous Fat Orbital/Buccal Region: Mild Triceps Area: WDL Midaxillary Line: WDL Muscle (Upper Body) Temporalis: Mild Clavicle Region (pectoralis major, deltoid, trapezius): WDL Clavicle and Acromion Region (deltoid): WDL Scapular Region (trapezius, latissimus dorsi): WDL Dorsal Hand (interosseous): WDL Muscle (Lower Body) - appears wnl, but has edema Patellar Region (quadriceps): WDL Anterior Thigh Region (quadriceps): WDL Posterior Calf Region (gastrocnemius): WDL Summary of findings: no significant fat depletion; no significant muscle depletion andoff - Monica Montoya RN - 08/29/2019 6:34 PM PSTNursing Handoff Patient Daily Goal: Pain management (08/28/192028) Patient Specific Preferences: pain mangement (08/28/19 0742) [facility] IP NURSE HANDOFF: [facility] hospital course events: 54 y.o. woman w/ metastatic renal cell c arcinoma admitted to the MICU for fluid refractory hypotension. Patient's hospital course poe s been complicated by ongoing hyperkalemia, metabolic acidosis, hypotension with MAPs<65, un clear urine output, despite aggressive IVF resuscitation with clinical signs of volume overl oad. 08/27 off norepinephrine, on midodrine with MAP 60-70. Endocrinology consulted and MRI Pitu itary scheduled. SAFETY Patient/Family Target: Hank will be hemodynamically stable Progress to Target: No Change As evidenced by: -Hank had pressures 100s/70s upon arrival to unit, which she stated is her baseline. Th ey have remained 100s/50-70s; MAP >/= 65. Pt denies any dizziness; able to ambulate without incident. Fluids running at 100 ml/hr. -H/H remains stable. COMFORT/ANXIETY/BEHAVIOR Patient/Family Target: Hank will report pain <6/10 this shift Progress to Target: Improving As evidenced by: -Vertebroplasty completed today. Prior to procedure pain range 2-7.5 out of 10; continue d on 10 mg oxycodone Q 4hrs. However since procedure pt has denied any pain. -Verify with pt if she wants to be awakened for analgesics like she did last night. NURSING ASSESSMENT & RECOMMENDATIONS FORWARD Nursing Assessment of Patient Stability Risk: Moderately stable Recommendations Forward: -SBA w/FWW to bathroom-calling appropriately -Strict I&O/Daily weights -Watch BPs closely -Continue to monitor back pain -Continue aggressive bowel medications- BM today. -Consult palliative care? -Encourage hydration and participation in ADLs -Daughter and son staying with family in [place]; may need to consult CM/SW for help with arrangements Barriers to discharge: Brain Tumor MRI pending EGFR >30 - currently at 27 CT to r/o PE pending kidney labs? nidy - Vicenta Vallejo RN - 08/29/2019 2:38 PM PSTInterventional Radiology Procedure Nursing Handoff Note Procedure: L2 Kyphoplasty Interventional Neuro Radiology Attending: Dr. Yrn Clemens performed procedure. Interventional Neuro Radiology MD (Resident)/pager: Dr. Luh Guevara did the workup. Procedure Meds: Pre-Procedure meds given in PCU /Floor: N/A Fentanyl IV 100mcg Midazolam IV 1.5mg Cefazolin 2g IVPB Access site(s): L2. Events: Pt tolerated well. Patient location prior to IR: 5C Patient disposition post IR and /or recovery: 5C indy - Valeria Dennis RN - 08/28/2019 5:09 PM PSTNursing Handoff Patient Daily Goal: Find out when back surgery might be (08/28/19 0020) Patient Specific Preferences: pain mangement (08/28/19 0742) [facility] IP NURSE HANDOFF: [facility] hospital course events: 54 y.o. woman w/ metastatic renal cell c arcinoma admitted to the MICU for fluid refractory hypotension. Patient's hospital course poe s been complicated by ongoing hyperkalemia, metabolic acidosis, hypotension with MAPs<65, un clear urine output, despite aggressive IVF resuscitation with clinical signs of volume overl oad. 08/27 off norepinephrine, on midodrine with MAP 60-70. Endocrinology consulted and MRI Pitu itary scheduled. SAFETY Patient/Family Target: Hank will be hemodynamically stable Progress to Target: No Change As evidenced by: Hank had pressures 100s/70s upon arrival to unit, which she stated is her baseline. Thr ough out majority of the day her BP 90/50s with minimal effect of mid. MD notified. Ortho's were completed and BP increased with movement. COMFORT/ANXIETY/BEHAVIOR Patient/Family Target: Hank will report pain <6/10 this shift Progress to Target: Improving As evidenced by: Hank reported 5-7/10 pain in her low back this shift. She is able to express her need 1 0mg oxy. She is encouraged to stay ahead of her pain to maintain comfort, given the medicati on takes about 45 minutes to provide relief. Recommendations Forward: SBA w/FWW to bathroom -Strict I&O/Daily weights -Watch BPs closely -Continue to monitor back pain -Continue aggressive bowel medications -Consult palliative care -Encourage hydration and participation in ADLs -Daughter and son staying with family in [place]; may need to consult CM/SW for help with arrangements Barriers to discharge: Brain Tumor MRI pending EGFR >30 - currently at 27 NPO at midnight for IR vertebroplasty CT to r/o PE pending kidney labs andoff - Louisa Feliz RN - 08/28/2019 4:34 AM PSTNursing Handoff Patient Daily Goal: Find out when back surgery might be (08/28/19 0020) Patient Specific Preferences: Pain management. Move slowly with ambulation (08/26/191999) [facility] IP NURSE HANDOFF: [facility] hospital course events: 54 y.o. woman w/ metastatic renal cell c arcinoma admitted to the MICU for fluid refractory hypotension. Patient's hospital course poe s been complicated by ongoing hyperkalemia, metabolic acidosis, hypotension with MAPs<65, un clear urine output, despite aggressive IVF resuscitation with clinical signs of volume overl oad. 08/27 off norepinephrine, on midodrine with MAP 60-70. Endocrinology consulted and MRI Pitu itary scheduled. SAFETY Patient/Family Target: Hank will be hemodynamically stable Progress to Target: No Change As evidenced by: Hank had pressures 100s/70s upon arrival to unit, which she stated is her baseline. Robb und 0500, BPs were retaken on each arm and they had dropped to 80s/40s-50s. MD notified. Jaguar eduled midodrine was given. BP was 99/55 at 1 hour recheck. Pt continues to be asymptomatic even with BP in 80s. COMFORT/ANXIETY/BEHAVIOR Patient/Family Target: Hank will report pain <6/10 this shift Progress to Target: No Change As evidenced by: Hank reported 5-7/10 pain in her low back this shift. She is able to express her need f or 5 or 10mg oxy. She is encouraged to stay ahead of her pain to maintain comfort, given the medication takes about 45 minutes to provide relief. NURSING ASSESSMENT & RECOMMENDATIONS FORWARD Nursing Assessment of Patient Stability Risk: Moderately unstable Recommendations Forward: -SBA w/FWW to bathroom -Strict I&O/Daily weights -Watch BPs closely -Continue to monitor back pain -Continue aggressive bowel medications -Consult palliative care -Encourage hydration and participation in ADLs -Daughter and son staying with family in [place]; may need to consult CM/SW for help with arrangements Barriers to discharge: -Oncology and endocrine work up -Kidney values -Pituitary MRI andoff - Yvette Pizarro ma RN - 08/27/2019 11:30 PM PSTNursing Handoff Patient Daily Goal: Sleep! pain management (08/27/191999) Patient Specific Preferences: Pain management. Move slowly with ambulation (08/26/191999) [facility] IP NURSE HANDOFF: [facility] hospital course events: 54 y.o. woman w/ metastatic renal cell c arcinoma admitted to the MICU for fluid refractory hypotension. Patient's hospital course poe s been complicated by ongoing hyperkalemia, metabolic acidosis, hypotension with MAPs<65, un clear urine output, despite aggressive IVF resuscitation with clinical signs of volume overl oad. 08/27 off norepinephrine, on midodrine with MAP 60-70. Endocrinology consulted and MRI Pitu itary scheduled. SAFETY Patient/Family Target: Hank will not have a fall injury. Progress to Target: Improving As evidenced by: Hank calls appropriately. She stands with minimal assist without dizziness. She does have increased pain d/t L2 fx. Pt able to use the commode without assistance. COMFORT/ANXIETY/BEHAVIOR Patient/Family Target: Hank will have pain controlled with a rating 6 or less which she states is tolerable fo r her. Progress to Target: No Change As evidenced by: Hank is able to express her need for 5 or 10mg oxy. She is encouraged to stay ahead of her pain to maintain comfort, given the medication takes about 45 minutes to provide relief. RESTORATIVE MEASURES/SELF-MANAGEMENT Patient/Family Target: aHnk will be hemodynamically stable. Progress to Target: Improving As evidenced by: Stable on midodrine. Pt has been mentating well even with BP in mid to low 90s. Has decli sharifa dizziness. NURSING ASSESSMENT & RECOMMENDATIONS FORWARD Nursing Assessment of Patient Stability Risk: Moderately stable Recommendations Forward: Continue to monitor back pain Continue aggressive bowel medications Consult palliative care Encourage hydration and participation in ADLs Barriers to discharge: Oncology and endocrine work up Pituitary MRI andoff - Leyla Mendiola RN - 08/27/2019 12:51 PM PSTNursing Handoff Patient Daily Goal: Sit up and eat, keep pain under control. (08/27/19 0800) Patient Specific Preferences: Pain management. Move slowly with ambulation (08/26/191999) [facility] IP NURSE HANDOFF: [facility] hospital course events: 54 y.o. woman w/ metastatic renal cell c arcinoma admitted to the MICU for fluid refractory hypotension. Patient's hospital course poe s been complicated by ongoing hyperkalemia, metabolic acidosis, hypotension with MAPs<65, un clear urine output, despite aggressive IVF resuscitation with clinical signs of volume overl oad. 08/27 off norepinephrine, on midodrine with MAP 60-70. Endocrinology consulted and MRI Pitu itary scheduled. SAFETY Patient/Family Target: Hank will not have a fall injury. Progress to Target: Improving As evidenced by: Slowly able to stand with minimal assist while hanging on to chair or walker do to back p ain, pivots to chairs and tolerates well once she is up. Using call light appropriately and does not attempt to rise without assistance. COMFORT/ANXIETY/BEHAVIOR Patient/Family Target: Hnak will have pain controlled with a rating 6 or less which she states is tolerable fo r her. Progress to Target: Improving As evidenced by: Able to adequately control pain with ambulation, heating pad, acetaminophen and oxycodone use. Pain level to 8 once today, but plans to adjust medication schedule to prevent this e xacerbation of pain. RESTORATIVE MEASURES/SELF-MANAGEMENT Patient/Family Target: Hank will be hemodynamically stable. Progress to Target: Improving As evidenced by: Stable on midodrine. NURSING ASSESSMENT & RECOMMENDATIONS FORWARD Nursing Assessment of Patient Stability Risk: Moderately stable Recommendations Forward: Continue to monitor back pain Continue aggressive bowel medications Barriers to discharge: Oncology and endocrine work up. ransfer Note - Pavan Ramos MD - 08/27/2019 11:37 AM PSTTransfer Summary Hank Altman is a 54 y/o woman w/ with stage IV renal clear cell carcioma (w/ mets to [place], liver, lung, lymph nodes), h/o Hodgkin's lymphoma 2002 s/p CHOP and RT complicated by po st-radiation hypothyroidism who was transferred to the MICU from Medicine 08/25 for persiste nt hypotension despite volume resuscitation. Her RCC was diagnosed 07/27/[address] for back pain demonstrated L renal vein invasion an d hepatic metastasis, L2 pathologic fracture. Hank was initially referred to the ED from h em/onc clinic appointment 08/24/2019 for persistent asymptomatic hypotension despite 1L IVF. At her first appt with heme/onc on 08/22, she was found to have renal insufficiency, hyperc alcemia, and hyperkalemia, and was sent to the infusion center for pamidronate. Tentative on cologic plan is to start ipilipumab/nivolulmab and enrolling in PEDIGREE trial, however mare ent states that this had been postponed d/t electrolyte abnormalities. No surgical intervent ion planned d/t liver metastasis. She was admitted to the ED where she received 3L NS. Admitted to Medicine 08/24/2019 with h ypotension, hypercalcemia (~13 on admission) and hyperkalemia (> 6 on admission), started on NS at 200ml/hr, ACEi/atenolol held. K >6 on admission w/o EKG changes. Down to 5.6 after IV F.Urine studies were significant for a positive gap and pH>6. Overnight, she complained of chest pain lasting greater than 40 minutes in setting of persistent hypotension and MAPS < 60, so was transferred to the MICU. She initially required 0.1mg of NE but was weaned to 0.0 2 after 100mg of methylpred. Most likely etiology ACEi toxicity vs possible adrenal insuffic iency. Due to possible RV dilation on bedside ECHO and high risk for PE w/ active malignancy , TTE ordered and showed elevated R sided pressures, however given RA hypertrophy is more li quirino chronic. Thought to have possible AI given low AM cortisol prior to methylpred and hype rkalemia; endocrine consulted. Started on 2mg dexamethasone daily. Follow up: - Endocrinology recs: - Pituitary MRI ordered, however EGFR <30, hold off until function improves - Labs pending (prolactin, FSH, LH, IGF-1) - Stim test - Trend BMP - Oncology recs re PEDIGREE trial - IR consult for vertebroplasty/kyphoplasty of L2 vertebral fracture when appopriate andoff - Bebe Fulton RN - 08/27/2019 4:59 AM PSTNursing Handoff Patient Daily Goal: Out of bed to chair for dinner and catch up on sleep tonight (1999) Patient Specific Preferences: Pain management. Move slowly with ambulation (08/26/191999) [facility] IP NURSE HANDOFF: [facility] hospital course events: 54 y.o. woman w/ metastatic RCC admitted to the MICU for fluid refractory hypotension. Patient's hospital course has been complicate d by ongoing hyperkalemia, metabolic acidosis, hypotension with MAPs<65, unclear urine outpu t, despite aggressive IVF resuscitation with clinical signs of volume overload SAFETY Patient/Family Target: Hank will be able to safely mobilize to the BSC Progress to Target: Improving As evidenced by: Hank got up to the beside commode x3 this shift. She is a one person assist with walker . She only tolerates standing and pivoting. Though she denies light headedness or dizziness she does require stability support. COMFORT/ANXIETY/BEHAVIOR Patient/Family Target: Hank will have pain controlled with a rating <6 which she states is tolerable for her. Progress to Target: Improving As evidenced by: Hank states she feels her pain has been controlled with the PRN Oxy this shift. No dila udid necessary today. She does not wish to have pain <6 at this point and is stating that cu rrent Oxycodone plan is sufficient. Continued education of pain and Hank agrees to adapt p ain medication treatment plan if she feels she needs it. RESTORATIVE MEASURES/SELF-MANAGEMENT Patient/Family Target: Hank will be hemodynamically stable. Progress to Target: Improving As evidenced by: Hank is still requiring vasopressor support but has been weaned off NE overnight. Star juice Midodrine at 0400 and was able to fully wean of NE for a MAP goal of 60. NURSING ASSESSMENT & RECOMMENDATIONS FORWARD Nursing Assessment of Patient Stability Risk: Moderately stable Recommendations Forward: Continue to monitor back pain Continue aggressive bowel medications Barriers to discharge: andoff - Marybeth Robles RN - 08/26/2019 5:48 PM PSTNursing Handoff [place] IP NURSE HANDOFF: [facility] hospital course events: 54 y.o. woman w/ metastatic RCC admitted to the MICU for fluid refractory hypotension. Patient's hospital course has been complicate d by ongoing hyperkalemia, metabolic acidosis, hypotension with MAPs<65, unclear urine outpu t, despite aggressive IVF resuscitation with clinical signs of volume overload SAFETY Patient/Family Target: Hank will be able to safely mobilize to the BSC Progress to Target: Improving As evidenced by: Hank got up to the beside commode x2 this shift. She is a heavy one or two person shekhar t. Though she denies light headedness or dizziness she does require stability support. COMFORT/ANXIETY/BEHAVIOR Patient/Family Target: Hank will have pain controlled with a rating <6 which she states is tolerable for her. Progress to Target: Improving As evidenced by: Hank states she feels her pain has been controlled with the PRN Oxy this shift. No dila udid necessary today. RESTORATIVE MEASURES/SELF-MANAGEMENT Patient/Family Target: Hank will be hemodynamically stable. Progress to Target: Improving As evidenced by: Hank is still requiring vasopressor support but has been weaned down from .1 NE to .02 this shift. Despite the low dose she was not able to stay above MAP goal of 60 with NE off. Recommendations Forward: Continue to monitor back pain Continue aggressive bowel medications Barriers to discharge: Vasopressor lan of Care - D Odette coughlin, RD - 08/26/2019 3:06 PM PST Problem: Nutrition Interventions Intervention: Food and nutrient distribution type or amount Note: RD met with pt this afternoon. She was resting in bed but woke easily to her name. She repo rted good appetite, no nausea, she asked about K+ restriction. RD listed some common foods h igh in K+. Pt disappointed to hear that she may not be able to order mashed potatoes. Noted that K+ and Cr trending down. Phos rechecked and now low. Pt said that she ate breakfast th is AM and had a BM, after period of constipation, so feeling better. Will cont to follow and offer renal diet education if needed by discharge. -Consider liberalizing renal diet to regular or 2gm Na (unless there is a role for limiting phos in hypercalcemia treatment?) -Encourage PO intake -Bowel regimen to ensure daily BM -If not contra-indicated with hypercalcemia, rec vitamin D supplement (with very low level usual rec is for 50,000 units cholecalciferol q 7 days x 8 weeks but can be more conservativ e and give 2000 units per day if preferred) Bwtk-maq-pjsmzwiwj-related knowledge deficit r/t lack of prior exposure to nutrition-relate d information evidenced by change in condition with possible need for renal diet education. Odette Dhaliwal, KESHA Pgr #[phone] Hank Altman is a 54 y.o. female admitted with hypotension, JONO, constipation H/o: Hodgkins lymphoma s/p CHOP/radiation, recent dx of RCC with mets to liver, lungs, and pathologic spinal fx Diet: 3gm K+ -> renal on 08/26 with 50% of breakfast today BM today described as steatorrhea, hard, mucoid K+ 5.2, BUN 29, Cr 1.79, phos 2.1, corrected Ca 11.3, vit D 5.6 Dulc supp, levothyroxine, miralax, senna 62", Wt (08/16) 95.7kg, (08/25) 102.3kg - Pt reported UBW ~220# (100kg), IBW 50kg, AdjBW 62 .5kg, BMI 40 Est needs ICU, BMI >30, using IBW: 3950-5243 kcal (22-25/kg), 100 g pro (2g/kg) lan [facility] Lissette Salcido - 08/26/2019 10:45 AM PSTPTNote: Consult from ED, admitted to MICU with ongoing m edical stabilization and work-up. Not appropriate for physical therapy, signing off. Nursing able to mobilize as appropriate per safe patient mobility check, please re-consult when med ically stable. Christine Salcido, [id number] signed by Lissette Salcido at 08/26/2019 10:47 AM P STPlan of Hank Leach, PT - 08/25/2019 11:22 AM PSTContact Note for Physical Th erapy Urgent orders received, chart reviewed. Checked in with nurse who reports pt is hypotensive , trending downwards. PT will hold for now and check back tomorrow. Hank Vizcarra, PT DPT Pager [phone] D Teaching Notes - Aleksey Sanchez MD - 08/25/2019 1:10 AM Annika Sanchez MD, Faculty Note: I saw and evaluated the patient and discussed the diagnosis, management, and interpretation of results with the resident. I performed and confirmed the gonsales portions of the service. I have reviewed and agree with the documentation in the provider note. Aleksey Sanchez MD [facility] Miranda Carver - 08/24/2019 6:01 PM [id number] - c1 54 yof back pain & prev lower lumbar FX; hi gh calcium values; hr 87 sat 100 bp 111/53 & IV est; eta 6 [facility] [place] - Adriane Dillon - 08/24/2019 3:32 PM PSTConne cted ref to MISEAL Vivas (ed RN) C/o hypotension documented in this encounter Plan of Treatment +--------+---------+ + + + | Date | Type | Specialty | Care Team | Description | +--------+---------+ + + + | 06/26/ | Office | Hematology & | Lissette Ortiz, | | | 2019 | Visit | Oncology | [id number] | | | | | | [address] | | | | | | [facility] [place] | | | | | | [id number] | | | | | | [phone] | | | | | | | | +--------+---------+ + + + + + +--------+ + + | Name | Type | Priori | Associated Diagnoses | Order Schedule | | | | ty | | | + + +--------+ + + | RBC MORPHOLOGY | Lab - | Routin | | 08/27/2019 until | | | [facility] | e | | discontinued, 1 | | | Performable | | | completed | | | s | | | | + + +--------+ + + documented as of this encounter Procedures + +--------+ + + + | Procedure Name | Priori | Date/Time | Associated Diagnosis | Comments | | | ty | | | | + +--------+ + + + | CBC AND AUTO DIFF | Urgent | 09/01/2019 | | Results for this | | | | 5:28 AM | | procedure are in the | | | | PST | | results section. | + +--------+ + + + | CBC, WITH | Urgent | 09/01/2019 | | Results for this | | DIFFERENTIAL | | 5:28 AM | | procedure are in the | | | | PST | | results section. | + +--------+ + + + | BASIC METABOLIC SET | Routin | 09/01/2019 | | Results for this | | (NA, K, CL, TCO2, | e | 5:28 AM | | procedure are in the | | BUN, CR, GLU, CA) | | PST | | results section. | + +--------+ + + + | PHOSPHORUS, PLASMA | Routin | 09/01/2019 | | Results for this | | | e | 5:28 AM | | procedure are in the | | | | PST | | results section. | + +--------+ + + + | CALCIUM, IONIZED, | Urgent | 09/01/2019 | | Results for this | | WHOLE BLOOD | | 5:28 AM | | procedure are in the | | | | PST | | results section. | + +--------+ + + + | URIC ACID, PLASMA | Routin | 09/01/2019 | | Results for this | | | e | 5:28 AM | | procedure are in the | | | | PST | | results section. | + +--------+ + + + | LDH TOTAL, PLASMA | Routin | 09/01/2019 | | Results for this | | | e | 5:28 AM | | procedure are in the | | | | PST | | results section. | + +--------+ + + + | BASIC METABOLIC SET | Routin | 08/31/2019 | | Results for this | | (NA, K, CL, TCO2, | e | 2:42 PM | | procedure are in the | | BUN, CR, GLU, CA) | | PST | | results section. | + +--------+ + + + | PLATELET COUNT, | Routin | 08/31/2019 | | Results for this | | WHOLE BLOOD | e | 9:11 AM | | procedure are in the | | | | PST | | results section. | + +--------+ + + + | CBC AND AUTO DIFF | Urgent | 08/31/2019 | | Results for this | | | | 6:27 AM | | procedure are in the | | | | PST | | results section. | + +--------+ + + + | IMMATURE PLATELET | Routin | 08/31/2019 | | Results for this | | FRACTION | e | 6:27 AM | | procedure are in the | | | | PST | | results section. | + +--------+ + + + | CBC, WITH | Urgent | 08/31/2019 | | Results for this | | DIFFERENTIAL | | 6:27 AM | | procedure are in the | | | | PST | | results section. | + +--------+ + + + | BASIC METABOLIC SET | Routin | 08/31/2019 | | Results for this | | (NA, K, CL, TCO2, | e | 6:27 AM | | procedure are in the | | BUN, CR, GLU, CA) | | PST | | results section. | + +--------+ + + + | RETICULOCYTE COUNT, | Routin | 08/31/2019 | | Results for this | | BLOOD | e | 6:27 AM | | procedure are in the | | | | PST | | results section. | + +--------+ + + + | PHOSPHORUS, PLASMA | Routin | 08/31/2019 | | Results for this | | | e | 6:27 AM | | procedure are in the | | | | PST | | results section. | + +--------+ + + + | CALCIUM, IONIZED, | Urgent | 08/31/2019 | | Results for this | | WHOLE BLOOD | | 6:27 AM | | procedure are in the | | | | PST | | results section. | + +--------+ + + + | URIC ACID, PLASMA | Routin | 08/31/2019 | | Results for this | | | e | 6:27 AM | | procedure are in the | | | | PST | | results section. | + +--------+ + + + | LDH TOTAL, PLASMA | Routin | 08/31/2019 | | Results for this | | | e | 6:27 AM | | procedure are in the | | | | PST | | results section. | + +--------+ + + + | MRI BRAIN TUMOR | Routin | 08/30/2019 | | Results for this | | EVALUATION WWO | e | 12:28 PM | | procedure are in the | | CONTRAST | | PST | | results section. | + +--------+ + + + | CAPILLARY BLOOD | Routin | 08/30/2019 | Hypercalcemia of | Results for this | | GLUCOSE (NO CHG), | e | 5:54 AM | malignancy | procedure are in the | | POC | | PST | | results section. | + +--------+ + + + | CAPILLARY BLOOD | Routin | 08/30/2019 | Hypercalcemia of | Results for this | | GLUCOSE (NO CHG), | e | 5:34 AM | malignancy | procedure are in the | | POC | | PST | | results section. | + +--------+ + + + | CBC AND AUTO DIFF | Urgent | 08/30/2019 | | Results for this | | | | 3:49 AM | | procedure are in the | | | | PST | | results section. | + +--------+ + + + | CBC, WITH | Urgent | 08/30/2019 | | Results for this | | DIFFERENTIAL | | 3:49 AM | | procedure are in the | | | | PST | | results section. | + +--------+ + + + | BASIC METABOLIC SET | Routin | 08/30/2019 | | Results for this | | (NA, K, CL, TCO2, | e | 3:49 AM | | procedure are in the | | BUN, CR, GLU, CA) | | PST | | results section. | + +--------+ + + + | PHOSPHORUS, PLASMA | Routin | 08/30/2019 | | Results for this | | | e | 3:49 AM | | procedure are in the | | | | PST | | results section. | + +--------+ + + + | FERRITIN | Routin | 08/30/2019 | | Results for this | | | e | 3:49 AM | | procedure are in the | | | | PST | | results section. | + +--------+ + + + | CALCIUM, IONIZED, | Urgent | 08/30/2019 | | Results for this | | WHOLE BLOOD | | 3:49 AM | | procedure are in the | | | | PST | | results section. | + +--------+ + + + | URIC ACID, PLASMA | Routin | 08/30/2019 | | Results for this | | | e | 3:49 AM | | procedure are in the | | | | PST | | results section. | + +--------+ + + + | LDH TOTAL, PLASMA | Routin | 08/30/2019 | | Results for this | | | e | 3:49 AM | | procedure are in the | | | | PST | | results section. | + +--------+ + + + | IRON AND TIBC, SERUM | Routin | 08/30/2019 | | Results for this | | | e | 3:49 AM | | procedure are in the | | | | PST | | results section. | + +--------+ + + + | BASIC METABOLIC SET | Routin | 08/29/2019 | | Results for this | | (NA, K, CL, TCO2, | e | 4:25 PM | | procedure are in the | | BUN, CR, GLU, CA) | | PST | | results section. | + +--------+ + + + | PHOSPHORUS, PLASMA | Routin | 08/29/2019 | | Results for this | | | e | 4:25 PM | | procedure are in the | | | | PST | | results section. | + +--------+ + + + | URIC ACID, PLASMA | Routin | 08/29/2019 | | Results for this | | | e | 4:25 PM | | procedure are in the | | | | PST | | results section. | + +--------+ + + + | LDH TOTAL, PLASMA | Routin | 08/29/2019 | | Results for this | | | e | 4:25 PM | | procedure are in the | | | | PST | | results section. | + +--------+ + + + | IR NEURO KYPHOPLASTY | Routin | 08/29/2019 | | Results for this | | /VERTEBROPLASTY | e | 3:00 PM | | procedure are in the | | | | PST | | results section. | + +--------+ + + + | PROCEDURE NOTE | Routin | 08/29/2019 | | Results for this | | | e | 2:35 PM | | procedure are in the | | | | PST | | results section. | + +--------+ + + + | CBC AND AUTO DIFF | Routin | 08/29/2019 | | Results for this | | | e | 12:26 PM | | procedure are in the | | | | PST | | results section. | + +--------+ + + + | LEUKEMIA/LYMPHOMA | Urgent | 08/29/2019 | | Results for this | | MARKER - BLOOD | | 12:26 PM | | procedure are in the | | | | PST | | results section. | + +--------+ + + + | CBC, WITH | Routin | 08/29/2019 | | Results for this | | DIFFERENTIAL | e | 12:26 PM | | procedure are in the | | | | PST | | results section. | + +--------+ + + + | CONFIRMATORY ABO/RH | Routin | 08/29/2019 | | Results for this | | | e | 9:37 AM | | procedure are in the | | | | PST | | results section. | + +--------+ + + + | INR | Routin | 08/29/2019 | | Results for this | | | e | 9:37 AM | | procedure are in the | | | | PST | | results section. | + +--------+ + + + | ANTIBODY SCREEN | Routin | 08/29/2019 | | Results for this | | | e | 9:37 AM | | procedure are in the | | | | PST | | results section. | + +--------+ + + + | TYPE AND SCREEN | Routin | 08/29/2019 | | Results for this | | | e | 9:37 AM | | procedure are in the | | | | PST | | results section. | + +--------+ + + + | ABO & RH TYPE | Routin | 08/29/2019 | | Results for this | | | e | 9:37 AM | | procedure are in the | | | | PST | | results section. | + +--------+ + + + | CBC AND AUTO DIFF | Urgent | 08/29/2019 | | Results for this | | | | 3:48 AM | | procedure are in the | | | | PST | | results section. | + +--------+ + + + | CBC, WITH | Urgent | 08/29/2019 | | Results for this | | DIFFERENTIAL | | 3:48 AM | | procedure are in the | | | | PST | | results section. | + +--------+ + + + | BASIC METABOLIC SET | Urgent | 08/29/2019 | | Results for this | | (NA, K, CL, TCO2, | | 3:48 AM | | procedure are in the | | BUN, CR, GLU, CA) | | PST | | results section. | + +--------+ + + + | CALCIUM, IONIZED, | Urgent | 08/29/2019 | | Results for this | | WHOLE BLOOD | | 3:48 AM | | procedure are in the | | | | PST | | results section. | + +--------+ + + + | VASC LAB VENOUS | Routin | 08/28/2019 | | Results for this | | DUPLEX LOWER | e | 3:32 PM | | procedure are in the | | EXTREMITY BILAT COMP | | PST | | results section. | + +--------+ + + + | BASIC METABOLIC SET | Routin | 08/28/2019 | | Results for this | | (NA, K, CL, TCO2, | e | 11:46 AM | | procedure are in the | | BUN, CR, GLU, CA) | | PST | | results section. | + +--------+ + + + | URIC ACID, PLASMA | Routin | 08/28/2019 | | Results for this | | | e | 11:46 AM | | procedure are in the | | | | PST | | results section. | + +--------+ + + + | LDH TOTAL, PLASMA | Routin | 08/28/2019 | | Results for this | | | e | 11:46 AM | | procedure are in the | | | | PST | | results section. | + +--------+ + + + | CBC AND AUTO DIFF | Urgent | 08/28/2019 | | Results for this | | | | 4:48 AM | | procedure are in the | | | | PST | | results section. | + +--------+ + + + | CBC, WITH | Urgent | 08/28/2019 | | Results for this | | DIFFERENTIAL | | 4:48 AM | | procedure are in the | | | | PST | | results section. | + +--------+ + + + | CALCIUM, IONIZED, | Urgent | 08/28/2019 | | Results for this | | WHOLE BLOOD | | 4:48 AM | | procedure are in the | | | | PST | | results section. | + +--------+ + + + | BASIC METABOLIC SET | Urgent | 08/27/2019 | | Results for this | | (NA, K, CL, TCO2, | | 10:44 PM | | procedure are in the | | BUN, CR, GLU, CA) | | PST | | results section. | + +--------+ + + + | BENTON ACTH STM 60 | Urgent | 08/27/2019 | | Results for this | | | | 4:11 PM | | procedure are in the | | | | PST | | results section. | + +--------+ + + + | BENTON ACTH STM 30 | Urgent | 08/27/2019 | | Results for this | | | | 4:11 PM | | procedure are in the | | | | PST | | results section. | + +--------+ + + + | BENTON ACTH STM 0 | Urgent | 08/27/2019 | | Results for this | | | | 2:07 PM | | procedure are in the | | | | PST | | results section. | + +--------+ + + + | ACTH STIMULATION | Urgent | 08/27/2019 | | Results for this | | TEST (0,30,60), | | 2:07 PM | | procedure are in the | | SERUM | | PST | | results section. | + +--------+ + + + | LUTEINIZING HORMONE, | Urgent | 08/27/2019 | | Results for this | | SERUM | | 2:06 PM | | procedure are in the | | | | PST | | results section. | + +--------+ + + + | FSH, SERUM | Urgent | 08/27/2019 | | Results for this | | | | 2:06 PM | | procedure are in the | | | | PST | | results section. | + +--------+ + + + | ACTH, PLASMA | Urgent | 08/27/2019 | | Results for this | | | | 2:04 PM | | procedure are in the | | | | PST | | results section. | + +--------+ + + + | INSULIN GROWTH | Urgent | 08/27/2019 | | Results for this | | FACTOR-1, SERUM | | 2:04 PM | | procedure are in the | | | | PST | | results section. | + +--------+ + + + | PROLACTIN | Urgent | 08/27/2019 | | Results for this | | | | 2:04 PM | | procedure are in the | | | | PST | | results section. | + +--------+ + + + | BASIC METABOLIC SET | Urgent | 08/27/2019 | | Results for this | | (NA, K, CL, TCO2, | | 10:26 AM | | procedure are in the | | BUN, CR, GLU, CA) | | PST | | results section. | + +--------+ + + + | CT HEAD WO CONTRAST | Urgent | 08/27/2019 | | Results for this | | | | 6:17 AM | | procedure are in the | | | | PST | | results section. | + +--------+ + + + | RBC MORPHOLOGY | Routin | 08/27/2019 | | | | | e | 4:37 AM | | | | | | PST | | | + +--------+ + + + | CBC AND AUTO DIFF | Urgent | 08/27/2019 | | Results for this | | | | 4:37 AM | | procedure are in the | | | | PST | | results section. | + +--------+ + + + | CBC, WITH | Urgent | 08/27/2019 | | Results for this | | DIFFERENTIAL | | 4:37 AM | | procedure are in the | | | | PST | | results section. | + +--------+ + + + | BASIC METABOLIC SET | Urgent | 08/27/2019 | | Results for this | | (NA, K, CL, TCO2, | | 4:36 AM | | procedure are in the | | BUN, CR, GLU, CA) | | PST | | results section. | + +--------+ + + + | PHOSPHORUS, PLASMA | Urgent | 08/27/2019 | | Results for this | | | | 4:36 AM | | procedure are in the | | | | PST | | results section. | + +--------+ + + + | CALCIUM, IONIZED, | Urgent | 08/27/2019 | | Results for this | | WHOLE BLOOD | | 4:36 AM | | procedure are in the | | | | PST | | results section. | + +--------+ + + + | BASIC METABOLIC SET | Urgent | 08/27/2019 | | Results for this | | (NA, K, CL, TCO2, | | 12:05 AM | | procedure are in the | | BUN, CR, GLU, CA) | | PST | | results section. | + +--------+ + + + | BASIC METABOLIC SET | Urgent | 08/26/2019 | | Results for this | | (NA, K, CL, TCO2, | | 5:23 PM | | procedure are in the | | BUN, CR, GLU, CA) | | PST | | results section. | + +--------+ + + + | BASIC METABOLIC SET | Urgent | 08/26/2019 | | Results for this | | (NA, K, CL, TCO2, | | 10:32 AM | | procedure are in the | | BUN, CR, GLU, CA) | | PST | | results section. | + +--------+ + + + | PHOSPHORUS, PLASMA | Urgent | 08/26/2019 | | Results for this | | | | 10:32 AM | | procedure are in the | | | | PST | | results section. | + +--------+ + + + | BLOOD GASES, | Routin | 08/26/2019 | | Results for this | | ARTERIAL - LAB | e | 10:20 AM | | procedure are in the | | | | PST | | results section. | + +--------+ + + + | BLOOD GASES, VENOUS | Urgent | 08/26/2019 | | Results for this | | - LAB | | 10:20 AM | | procedure are in the | | | | PST | | results section. | + +--------+ + + + | CAPILLARY BLOOD | Routin | 08/26/2019 | Hypercalcemia of | Results for this | | GLUCOSE (NO CHG), | e | 10:16 AM | malignancy | procedure are in the | | POC | | PST | | results section. | + +--------+ + + + | TRANSTHORACIC | Routin | 08/26/2019 | | Results for this | | ECHOCARDIOGRAM, | e | 7:53 AM | | procedure are in the | | ADULT | | PST | | results section. | + +--------+ + + + | X-RAY PORTABLE CHEST | Routin | 08/26/2019 | | Results for this | | 1 VIEW | e | 5:25 AM | | procedure are in the | | | | PST | | results section. | + +--------+ + + + | PTH RELATED PEPTIDE, | Urgent | 08/26/2019 | | Results for this | | PLASMA | | 5:18 AM | | procedure are in the | | | | PST | | results section. | + +--------+ + + + | CAPILLARY BLOOD | Routin | 08/26/2019 | Hypercalcemia of | Results for this | | GLUCOSE (NO CHG), | e | 5:16 AM | malignancy | procedure are in the | | POC | | PST | | results section. | + +--------+ + + + | CBC AND AUTO DIFF | Urgent | 08/26/2019 | | Results for this | | | | 4:21 AM | | procedure are in the | | | | PST | | results section. | + +--------+ + + + | CBC, WITH | Urgent | 08/26/2019 | | Results for this | | DIFFERENTIAL | | 4:21 AM | | procedure are in the | | | | PST | | results section. | + +--------+ + + + | CALCIUM, IONIZED, | Urgent | 08/26/2019 | | Results for this | | WHOLE BLOOD | | 4:21 AM | | procedure are in the | | | | PST | | results section. | + +--------+ + + + | VITAMIN D, | Urgent | 08/26/2019 | | Results for this | | 25-HYDROXY, SERUM | | 4:20 AM | | procedure are in the | | | | PST | | results section. | + +--------+ + + + | LIVER SET | Urgent | 08/26/2019 | | Results for this | | (AST,ALT,BILI | | 4:20 AM | | procedure are in the | | TOTAL,BILI | | PST | | results section. | | DIRECT,ALK | | | | | | PHOS,ALB,PROT TOTAL) | | | | | + +--------+ + + + | TROPONIN I, PLASMA | Urgent | 08/26/2019 | | Results for this | | | | 4:20 AM | | procedure are in the | | | | PST | | results section. | + +--------+ + + + | BASIC METABOLIC SET | Urgent | 08/26/2019 | | Results for this | | (NA, K, CL, TCO2, | | 4:20 AM | | procedure are in the | | BUN, CR, GLU, CA) | | PST | | results section. | + +--------+ + + + | CORTISOL, SERUM | Urgent | 08/26/2019 | | Results for this | | | | 4:20 AM | | procedure are in the | | | | PST | | results section. | + +--------+ + + + | CAPILLARY BLOOD | Routin | 08/26/2019 | Hypercalcemia of | Results for this | | GLUCOSE (NO CHG), | e | 4:19 AM | malignancy | procedure are in the | | POC | | PST | | results section. | + +--------+ + + + | CVL | Routin | 08/26/2019 | | Results for this | | | e | 4:08 AM | | procedure are in the | | | | PST | | results section. | + +--------+ + + + | ART LINE | Routin | 08/26/2019 | | Results for this | | | e | 2:18 AM | | procedure are in the | | | | PST | | results section. | + +--------+ + + + | BASIC METABOLIC SET | Urgent | 08/26/2019 | | Results for this | | (NA, K, CL, TCO2, | | 12:23 AM | | procedure are in the | | BUN, CR, GLU, CA) | | PST | | results section. | + +--------+ + + + | UA, DIPSTICK ONLY | Urgent | 08/26/2019 | | Results for this | | | | 12:23 AM | | procedure are in the | | | | PST | | results section. | + +--------+ + + + | D-DIMER, (PE OR DIC) | Urgent | 08/26/2019 | | Results for this | | | | 12:23 AM | | procedure are in the | | | | PST | | results section. | + +--------+ + + + | POTASSIUM TOTAL, | Urgent | 08/26/2019 | | Results for this | | URINE | | 12:22 AM | | procedure are in the | | | | PST | | results section. | + +--------+ + + + | SODIUM TOTAL, URINE | Routin | 08/26/2019 | | Results for this | | | e | 12:22 AM | | procedure are in the | | | | PST | | results section. | + +--------+ + + + | CHLORIDE, URINE | Urgent | 08/26/2019 | | Results for this | | | | 12:22 AM | | procedure are in the | | | | PST | | results section. | + +--------+ + + + | BG-LAC,POC ISTAT | Urgent | 08/25/2019 | Hypercalcemia of | Results for this | | | | 8:56 PM | malignancy | procedure are in the | | | | PST | | results section. | + +--------+ + + + | TROPONIN, POC | Urgent | 08/25/2019 | Hypercalcemia of | Results for this | | | | 8:54 PM | malignancy | procedure are in the | | | | PST | | results section. | + +--------+ + + + | CBC AND AUTO DIFF | Urgent | 08/25/2019 | | Results for this | | | | 8:50 PM | | procedure are in the | | | | PST | | results section. | + +--------+ + + + | CBC, WITH | Urgent | 08/25/2019 | | Results for this | | DIFFERENTIAL | | 8:50 PM | | procedure are in the | | | | PST | | results section. | + +--------+ + + + | COMPLETE METABOLIC | Routin | 08/25/2019 | | Results for this | | SET | e | 8:49 PM | | procedure are in the | | (NA,K,CL,CO2,BUN,CRE | | PST | | results section. | | AT,GLUC,CA,AST,ALT,B | | | | | | MARTIN TOTAL,ALK | | | | | | PHOS,ALB,PROT TOTAL) | | | | | + +--------+ + + + | LACTATE | Urgent | 08/25/2019 | | Results for this | | | | 8:49 PM | | procedure are in the | | | | PST | | results section. | + +--------+ + + + | HAPTOGLOBIN | Urgent | 08/25/2019 | | Results for this | | | | 8:49 PM | | procedure are in the | | | | PST | | results section. | + +--------+ + + + | BLOOD GASES, VENOUS | Urgent | 08/25/2019 | | Results for this | | - LAB | | 8:49 PM | | procedure are in the | | | | PST | | results section. | + +--------+ + + + | 12 LEAD ECG | Routin | 08/25/2019 | | Results for this | | | e | 7:53 PM | | procedure are in the | | | | PST | | results section. | + +--------+ + + + | COAGULOPATHY PANEL | Routin | 08/25/2019 | | Results for this | | (INR,APTT,FIBRINOGEN | e | 6:35 PM | | procedure are in the | | ) | | PST | | results section. | + +--------+ + + + | LACTATE | Urgent | 08/25/2019 | | Results for this | | | | 6:35 PM | | procedure are in the | | | | PST | | results section. | + +--------+ + + + | BLOOD GASES, VENOUS | Urgent | 08/25/2019 | | Results for this | | - LAB | | 6:35 PM | | procedure are in the | | | | PST | | results section. | + +--------+ + + + | 12 LEAD ECG | Routin | 08/25/2019 | | Results for this | | | e | 5:13 PM | | procedure are in the | | | | PST | | results section. | + +--------+ + + + | CHEM 8 W/H&H,POC | Urgent | 08/25/2019 | Hypercalcemia of | Results for this | | | | 5:08 PM | malignancy | procedure are in the | | | | PST | | results section. | + +--------+ + + + | POTASSIUM, PLASMA | Urgent | 08/25/2019 | | Results for this | | | | 5:02 PM | | procedure are in the | | | | PST | | results section. | + +--------+ + + + | COMPLETE METABOLIC | Urgent | 08/25/2019 | | Results for this | | SET | | 3:12 PM | | procedure are in the | | (NA,K,CL,CO2,BUN,CRE | | PST | | results section. | | AT,GLUC,CA,AST,ALT,B | | | | | | MARTIN TOTAL,ALK | | | | | | PHOS,ALB,PROT TOTAL) | | | | | + +--------+ + + + | TSH W/REFLEX TO FREE | Urgent | 08/25/2019 | | Results for this | | T4(IF ABNORMAL) | | 5:36 AM | | procedure are in the | | | | PST | | results section. | + +--------+ + + + | COMPLETE METABOLIC | Urgent | 08/25/2019 | | Results for this | | SET | | 5:36 AM | | procedure are in the | | (NA,K,CL,CO2,BUN,CRE | | PST | | results section. | | AT,GLUC,CA,AST,ALT,B | | | | | | MARTIN TOTAL,ALK | | | | | | PHOS,ALB,PROT TOTAL) | | | | | + +--------+ + + + | FREE T4 | Urgent | 08/25/2019 | | Results for this | | | | 5:36 AM | | procedure are in the | | | | PST | | results section. | + +--------+ + + + | MAGNESIUM, PLASMA | Urgent | 08/25/2019 | | Results for this | | | | 5:36 AM | | procedure are in the | | | | PST | | results section. | + +--------+ + + + | CBC AND AUTO DIFF | Urgent | 08/25/2019 | | Results for this | | | | 5:32 AM | | procedure are in the | | | | PST | | results section. | + +--------+ + + + | CBC, WITH | Urgent | 08/25/2019 | | Results for this | | DIFFERENTIAL | | 5:32 AM | | procedure are in the | | | | PST | | results section. | + +--------+ + + + | PTH, SERUM | Urgent | 08/25/2019 | | Results for this | | | | 5:32 AM | | procedure are in the | | | | PST | | results section. | + +--------+ + + + | BLOOD BANK HOLD TUBE | Urgent | 08/24/2019 | | Results for this | | - DON | | 10:36 PM | | procedure are in the | | | | PST | | results section. | | T PROCESS | | | | | + +--------+ + + + | INR | Urgent | 08/24/2019 | | Results for this | | | | 10:35 PM | | procedure are in the | | | | PST | | results section. | + +--------+ + + + | CHEM 8 W/H&H,POC | Urgent | 08/24/2019 | | Results for this | | | | 10:12 PM | | procedure are in the | | | | PST | | results section. | + +--------+ + + + | RAINBOW HOLD TUBE - | Urgent | 08/24/2019 | | | | GREEN TOP | | 8:23 PM | | | | | | PST | | | + +--------+ + + + | RAINBOW HOLD, CORE | Urgent | 08/24/2019 | | Results for this | | PANEL | | 8:23 PM | | procedure are in the | | | | PST | | results section. | + +--------+ + + + | COMPLETE METABOLIC | Urgent | 08/24/2019 | | Results for this | | SET | | 8:23 PM | | procedure are in the | | (NA,K,CL,CO2,BUN,CRE | | PST | | results section. | | AT,GLUC,CA,AST,ALT,B | | | | | | MARTIN TOTAL,ALK | | | | | | PHOS,ALB,PROT TOTAL) | | | | | + +--------+ + + + | PHOSPHORUS, PLASMA | Urgent | 08/24/2019 | | Results for this | | | | 8:23 PM | | procedure are in the | | | | PST | | results section. | + +--------+ + + + | URIC ACID, PLASMA | Urgent | 08/24/2019 | | Results for this | | | | 8:23 PM | | procedure are in the | | | | PST | | results section. | + +--------+ + + + | LDH TOTAL, PLASMA | Urgent | 08/24/2019 | | Results for this | | | | 8:23 PM | | procedure are in the | | | | PST | | results section. | + +--------+ + + + | URINE, MICROSCOPIC | Urgent | 08/24/2019 | | Results for this | | EXAM | | 8:05 PM | | procedure are in the | | | | PST | | results section. | + +--------+ + + + | URINE SCREEN FOR | Urgent | 08/24/2019 | | Results for this | | CULTURE | | 8:05 PM | | procedure are in the | | | | PST | | results section. | + +--------+ + + + | CBC AND AUTO DIFF | Urgent | 08/24/2019 | | Results for this | | | | 7:38 PM | | procedure are in the | | | | PST | | results section. | + +--------+ + + + | CBC, WITH | Urgent | 08/24/2019 | | Results for this | | DIFFERENTIAL | | 7:38 PM | | procedure are in the | | | | PST | | results section. | + +--------+ + + + | 12 LEAD ECG | Routin | 08/24/2019 | | Results for this | | | e | 6:26 PM | | procedure are in the | | | | PST | | results section. | + +--------+ + + + | ED INFORMATION | Routin | 08/24/2019 | | Results for this | | EXCHANGE | e | 6:17 PM | | procedure are in the | | | | PST | | results section. | + +--------+ + + + documented in this encounter Results CBC AND AUTO DIFF (09/01/2019 5:28 AM PST) + + + + + + | Component | Value | Ref Range | Performed | Pathologist | | | | | At | Signature | + + + + + + | WHITE CELL | 3.54 | 3.50 - 10.80 | [facility] | | | COUNT | | K/cu mm | LABORATORY | | | | | | SERVICES, | | | | | | CORE | | + + + + + + | RED CELL | 3.40 (L) | 4.00 - 5.20 | [facility] [...] + + + + | HEMATOCRIT | 30.3 (L) | 36.0 - 46.0 % | [facility] | | | | | | LABORATORY | | | | | | SERVICES, | | | | | | CORE | | + + + + + + | MCV | 89.1 | 80.0 - 100.0 fL | [facility] [...] + + + | RDW SD | 52.8 (H) | 35.1 - 46.3 fL | [facility] | | | | | | LABORATORY | | | | | | SERVICES, | | | | | | CORE | | + + + + + + | PLATELET | 172 | 150 - 400 K/cu | [facility] [...] + + + + | NEUTROPHIL | 71.9 (H) | 50.0 - 70.0 % | [facility] | | | % | | | LABORATORY | | | | | | SERVICES, | | | | | | CORE | | + + + + + + | LYMPHOCYTE | 13.8 (L) | 18.0 - 42.0 % | [facility] | | | % | | | LABORATORY | | | | | | SERVICES, | | | | | | CORE | | + + + + + + | MONOCYTE % | 9.0 | 3.5 - 9.0 % | [facility] | | | | | | LABORATORY | | | | | | SERVICES, | | | | | | CORE | | + + + + + + | EOS % | 3.4 (H) | 1.0 - 3.0 % | [...] + + + + | NEUTROPHIL | 2.54 | 1.80 - 7.70 | [facility] | | | # | | K/cu mm | LABORATORY | | | | | | SERVICES, | | | | | | CORE | | + + + + + + | LYMPHOCYTE | 0.49 (L) | 1.00 - 4.80 | [facility] [...] + + + | EOS # | 0.12 | 0.00 - 0.50 | [facility] | [...] | + + + + + | [facility] | [address] | [place] [address] | | | SERVICES, CORE | [address] | | | + + + + + URIC ACID, PLASMA (09/01/2019 5:28 AM PST) + +-------+ + + + | Component | Value | Ref Range | Performed | Pathologist | | | | | At | Signature | + +-------+ + + + | URIC ACID, | 3.5 | 2.5 - 6.2 mg/dL | [facility] | | | PLASMA [...] [facility] | [address] | [place] [address] | | | SERVICES, CORE | [address] | | | + + + + + PHOSPHORUS, PLASMA (09/01/2019 5:28 AM PST) + +-------+ + + + | Component | Value | Ref Range | Performed | Pathologist | | | | | At | Signature | + +-------+ + + + | PHOSPHORUS, | 2.5 | 2.4 - 4.7 mg/dL | [facility] | | | PLASMA [...] | + + + + + | [facility] | [address] | [place] [address] | | | SERVICES, CORE | [address] | | | + + + + + LDH TOTAL, PLASMA (09/01/2019 5:28 AM PST) + +---------+ + + + | Component | Value | Ref Range | Performed | Pathologist | | | | | At | Signature | + +---------+ + + + | LD TOTAL, | 319 (H) | <=250 U/L | [facility] | | | PLASMA | | | LABORATORY | | | | | | SERVICES, | | | | | | CORE | | + +---------+ + + + | LD CMNT | No Hemo | | [facility] [...] [facility] | [address] | [place] [address] | | | SERVICES, CORE | [address] | | | + + + + + BASIC METABOLIC SET (NA, K, CL, TCO2, BUN, CR, GLU, CA) (09/01/2019 5:28 AM PST) + + + + + + | Component | Value | Ref Range | Performed | Pathologist | | | | | At | Signature | + + + + + + | GLUCOSE, | 83 | 70 - 99 mg/dL | [facility] | | | PLASMA | | | LABORATORY | | | (LAB) | | | SERVICES, | | | | | | CORE | | + + + + + + | BUN, PLASMA | 20 | 6 - 20 mg/dL | [facility] | | | (LAB) | | | LABORATORY | | | | | | SERVICES, | | | | | | CORE | | + + + + + + | CREATININE | 1.42 (H) | 0.60 - 1.10 | [facility] | | | PLASMA | | mg/dL | LABORATORY | | | (LAB) | | | SERVICES, | | | | | | CORE | | + + + + + + | EGFR | 46 (L) | >60 mL/min | [facility] | | | - | | | LABORATORY | | | [facility] | | | SERVICES, | | | | | | CORE | | + + + + + + | EGFR NON | 38 (L) | >60 mL/min | [facility] | [...] + + + + | POTASSIUM, | 4.3 | 3.4 - 5.0 | [facility] | [...] + + + + | BUN/CREATIN | 14 | 8 - 25 | [facility] | [...] MDRD equation recommended by the National | [facility] | | Kidney Disease Education [...] [facility] | [address] | [place] [address] | | | SERVICES, CORE | [address] | | | + + + + + CALCIUM, IONIZED, WHOLE BLOOD (09/01/2019 5:28 AM PST) + + + + + + | Component | Value | Ref Range | Performed | Pathologist | | | | | At | Signature | + + + + + + | YASMANI ICA, | 1.13 (L) | 1.14 - 1.32 | [facility] | | | WHOLE BLD | | mmol/L | LABORATORY | | | | | | SERVICES, | | | | | | CORE | | + + + + + + | PH, WHOLE | 7.36 | | [facility] | | | BLOOD | | | LABORATORY | | | | | | SERVICES, | | | | | | CORE | | + + + + + + | ICA, | 1.10 (L) | 1.14 - 1.28 | [facility] | | | CORRECTED | | mmol/L | LABORATORY | | | TO PH 7.4 | | | SERVICES, | | | [...] [facility] | [address] | [place] [address] | | | SERVICES, CORE | [address] | | | + + + + + BASIC METABOLIC SET (NA, K, CL, TCO2, BUN, CR, GLU, CA) (08/31/2019 2:42 PM PST) + + + + + + | Component | Value | Ref Range | Performed | Pathologist | | | | | At | Signature | + + + + + + | GLUCOSE, | 119 (H) | 70 - 99 mg/dL | [facility] | | | PLASMA | | | LABORATORY | | | (LAB) | | | SERVICES, | | | | | | CORE | | + + + + + + | BUN, PLASMA | 21 (H) | 6 - 20 mg/dL | [...] | | | LABORATORY | | | ANGOLAN | | | SERVICES, | | | [...] + + + + | POTASSIUM, | 4.6 | 3.4 - 5.0 | [facility] | [...] + + + + | CALCIUM, | 9.0 | 8.6 - 10.2 | [...] + + + + | BUN/CREATIN | 13 | 8 - 25 | [facility] | [...] MDRD equation recommended by the National | [facility] | | Kidney Disease Education [...] [facility] | [address] | [place] [address] | | | SERVICES, CORE | [address] | | | + + + + + PLATELET COUNT, WHOLE BLOOD (08/31/2019 9:11 AM PST) + +-------+ + + + | Component | Value | Ref Range | Performed | Pathologist | | | | | At | Signature | + +-------+ + + + | PLATELET | 179 | 150 - 400 K/cu | [facility] [...] [facility] | [address] | [place] [address] | | | SERVICES, CORE | [address] | | | + + + + + RETICULOCYTE COUNT, BLOOD (08/31/2019 6:27 AM PST) + +---------+ + + + | Component | Value | Ref Range | Performed | Pathologist | | | | | At | Signature | + +---------+ + + + | RETICULOCYT | 2.1 (H) | 0.5 - 1.5 % | [facility] | | | E COUNT | | | LABORATORY | | | | | | SERVICES, | | | | | | CORE | | + +---------+ + + + | RETIC | 73.0 | 10.0 - 90.0 | [facility] | | | ABSOLUTE # | | K/cu mm | LABORATORY [...] [facility] | [address] | [place] [address] | | | SERVICES, CORE | [address] | | | + + + + + IMMATURE PLATELET FRACTION (08/31/2019 6:27 AM PST) + +-------+ + + + | Component | Value | Ref Range | Performed | Pathologist | | | | | At | Signature | + +-------+ + + + | IMMATURE | 1.3 | 1.0 - 7.5 % | [facility] | | | PLATELET | | | LABORATORY | | | FRACTION | | | SERVICES, | | | (IPF) | | | CORE | | + +-------+ + + + + + | Specimen | + + | Blood - Blood | | (substance) | + + + + + | Narrative | Performed At | + + + | The Immature Platelet Fraction (IPF) is an index of thrombopoiesis | [facility] | | and can help to determine the mechanism of thrombocytopenia. An | LABORATORY | | increased IPF in the presence of thrombocytopenia is indicative of a | SERVICES, CORE | | platelet destruction or consumption condition. Values at or below this | | | range in combination with thrombocytopenia are indicative of | | | decreased marrow production. | | + + + + + + + + | Performing | Address | City/State/Zipcode | Phone Number | | Organization | | | | + + + + + | [facility] | [address] | [place] [address] | | | SERVICES, CORE | [address] | | | + + + + + CBC AND AUTO DIFF (08/31/2019 6:27 AM PST) + + + + + + | Component | Value | Ref Range | Performed | Pathologist | | | | | At | Signature | + + + + + + | WHITE CELL | 2.66 (L) | 3.50 - 10.80 | [facility] | | | COUNT | | K/cu mm | LABORATORY | | | | | | SERVICES, | | | | | | CORE | | + + + + + + | RED CELL | 3.46 (L) | 4.00 - 5.20 | [facility] | | | COUNT | | M/cu mm | LABORATORY | | | | | | SERVICES, | | | | | | CORE | | + + + + + + | HEMOGLOBIN | 9.6 (L) | 12.0 - 16.0 | [facility] [...] + + + + | MCV | 90.2 | 80.0 - 100.0 fL | [facility] | | | | | | LABORATORY | | | | | | SERVICES, | | | | | | CORE | | + + + + + + | MCHC | 30.8 (L) | 32.0 - 36.0 | [facility] [...] + + + + | PLATELET | 138 (L) | 150 - 400 K/cu | [facility] | | | COUNT | | mm | LABORATORY | | | | | | SERVICES, | | | | | | CORE | | + + + + + + | MPV | 8.9 (L) | 9.7 - 12.3 fL | [...] + + + + | NEUTROPHIL | 62.4 | 50.0 - 70.0 % | [facility] | | | % | | | LABORATORY | | | | | | SERVICES, | | | | | | CORE | | + + + + + + | LYMPHOCYTE | 19.2 | 18.0 - 42.0 % | [facility] | | | % | | | LABORATORY | | | | | | SERVICES, | | | | | | CORE | | + + + + + + | MONOCYTE % | 11.3 (H) | 3.5 - 9.0 % | [facility] | | | | | | LABORATORY | | | | | | SERVICES, | | | | | | CORE | | + + + + + + | EOS % | 4.9 (H) | 1.0 - 3.0 % | [...] + + + + | IG% | 1.1 (H) | 0.0 - 1.0 % | [facility] | | | | | | LABORATORY | | | | | | SERVICES, | | | | | | CORE | | + + + + + + | NEUTROPHIL | 1.66 (L) | 1.80 - 7.70 | [facility] | | | # | | K/cu mm | LABORATORY | | | | | | SERVICES, | | | | | | CORE | | + + + + + + | LYMPHOCYTE | 0.51 (L) | 1.00 - 4.80 | [facility] | | | # | | K/cu mm | LABORATORY | | | | | | SERVICES, | | | | | | CORE | | + + + + + + | MONOCYTE # | 0.30 | 0.10 - 0.90 | [facility] | [...] [facility] | [address] | [place] [address] | | | SERVICES, CORE | [address] | | | + + + + + URIC ACID, PLASMA (08/31/2019 6:27 AM PST) + +-------+ + + + | Component | Value | Ref Range | Performed | Pathologist | | | | | At | Signature | + +-------+ + + + | URIC ACID, | 3.0 | 2.5 - 6.2 mg/dL | [facility] | | | PLASMA | | | LABORATORY | | | (LAB) | | | MICHELLE, | | | | | | CORE | | + +-------+ + + + + + | Specimen | + + | Blood - Blood | | (substance) | + + + + + + + | Performing | Address | City/State/Zipcode | Phone Number | | Organization | | | | + + + + + | [employer] [id number] | [address] | [place] [address] | | | SERVICES, CORE | [address] | | | + + + + + PHOSPHORUS, PLASMA (08/31/2019 6:27 AM PST) + +-------+ + + + | Component | Value | Ref Range | Performed | Pathologist | | | | | At | Signature | + +-------+ + + + | PHOSPHORUS, | 2.8 | 2.4 - 4.7 mg/dL | [facility] | | | PLASMA [...] [facility] | [address] | [place] [address] | | | SERVICES, CORE | [address] | | | + + + + + LDH TOTAL, PLASMA (08/31/2019 6:27 AM PST) + +---------+ + + + | Component | Value | Ref Range | Performed | Pathologist | | | | | At | Signature | + +---------+ + + + | LD TOTAL, | 314 (H) | <=250 U/L | [facility] | | | PLASMA | | | LABORATORY | | | | | | SERVICES, | | | | | | CORE | | + +---------+ + + + | LD CMNT | No Hemo | | [facility] [...] | + + + + + | [facility] | [address] | [place] [address] | | | SERVICES, CORE | [address] | | | + + + + + BASIC METABOLIC SET (NA, K, CL, TCO2, BUN, CR, GLU, CA) (08/31/2019 6:27 AM PST) + + + + + + | Component | Value | Ref Range | Performed | Pathologist | | | | | At | Signature | + + + + + + | GLUCOSE, | 78 | 70 - 99 mg/dL | [facility] | | | PLASMA | | | LABORATORY | | | (LAB) | | | SERVICES, | | | | | | CORE | | + + + + + + | BUN, PLASMA | 22 (H) | 6 - 20 mg/dL | [facility] | | | (LAB) | | | LABORATORY | | | | | | SERVICES, | | | | | | CORE | | + + + + + + | CREATININE | 1.49 (H) | 0.60 - 1.10 | [facility] | | | PLASMA | | mg/dL | LABORATORY | | | (LAB) | | | SERVICES, | | | | | | CORE | | + + + + + + | EGFR | 44 (L) | >60 mL/min | [facility] | | | - | | | LABORATORY | | | [facility]AN | | | SERVICES, | | | | | | CORE | | + + + + + + | EGFR NON | 36 (L) | >60 mL/min | [facility] | [...] + + + + | BUN/CREATIN | 15 | 8 - 25 | [facility] | [...] MDRD equation recommended by the National | [facility] | | Kidney Disease Education [...] | + + + + + | [facility] | [address] | [place] [address] | | | SERVICES, CORE | [address] | | | + + + + + CALCIUM, IONIZED, WHOLE BLOOD (08/31/2019 6:27 AM PST) + + + + + + | Component | Value | Ref Range | Performed | Pathologist | | | | | At | Signature | + + + + + + | YASMANI ICA, | 1.12 (L) | 1.14 - 1.32 | [facility] | | | WHOLE BLD | | mmol/L | LABORATORY | | | | | | SERVICES, | | | | | | CORE | | + + + + + + | PH, WHOLE | 7.34 | | [facility] | | | BLOOD | | | LABORATORY | | | | | | SERVICES, | | | | | | CORE | | + + + + + + | ICA, | 1.09 (L) | 1.14 - 1.28 | [facility] | | | CORRECTED | | mmol/L | LABORATORY | | | TO PH 7.4 | | | SERVICES, | | | | | | CORE | | + + + + + + + + | Specimen | + + | Blood - Blood | | (substance) | + + + + + + + | Performing | Address | City/State/Zipcode | Phone Number | | Organization | | | | + + + + + | [facility] | [address] | [place] [address] | | | SERVICES, CORE | [address] | | | + + + + + MRI BRAIN TUMOR EVALUATION WWO CONTRAST (08/30/2019 12:28 PM PST) + + | Specimen | + + | | + + + + + | Narrative | Performed At | + + + | EXAM: MR BRAIN TUMOR FOLLOW UP WWO HISTORY: 54yo F with h/o | JEANETTE | | Hodgkins, new dx of RCC, here for hyperK, hyperCa, and hypotension. | RADIOLOGY VOICE | | Please eval for mets and pituitary pathology as etiology of | RECOGNITION 2 | | hypotension. COMPARISON: None. TECHNIQUE: Multiplanar | | | multi-sequence MRI of the brain without and with gadolinium based | | | intravenous contrast: FINDINGS: BRAIN: No acute intracranial | | | abnormality. No evidence of hemorrhage, mass, or acute infarction. The | | | ventricles are normal in size and morphology. Pituitary gland appears | | | normal in size and enhancement allowing for low resolution brain | | | imaging technique. SOFT TISSUES AND MARROW: Unremarkable. FACE | | | AND ORBITS: Visualized portions are unremarkable. IMPRESSION: | | | No acute intracranial process or enhancing intracranial abnormality. | | | I have personally reviewed the images and, if necessary, edited the | | | report. I agree with the report as now presented. Final | | | signature: Isatu Ramos MD 08/30/2019 1:06 PM Preliminary: | | | Isatu Ramos MD Dictation initiated: Isatu Curran | | | MD Richard 08/30/2019 1:03 PM | | + + + + + | Procedure Note | + + | Service Account, Radiant Res In Interface - 08/30/2019 1:07 PM PST EXAM: MR BRAIN | | TUMOR FOLLOW UP WWO HISTORY: 54yo F with h/o Hodgkins, new dx of RCC, here for hyperK, | | hyperCa, and hypotension. Please eval for mets and pituitary pathology as etiology of | | hypotension. COMPARISON: None. TECHNIQUE: Multiplanar multi-sequence MRI of the brain | | without and with gadolinium based intravenous contrast: FINDINGS: BRAIN: No acute | | intracranial abnormality. No evidence of hemorrhage, mass, or acute infarction. The | | ventricles are normal in size and morphology. Pituitary gland appears normal in size and | | enhancement allowing for low resolution brain imaging technique. SOFT TISSUES AND | | MARROW: Unremarkable.FACE AND ORBITS: Visualized portions are unremarkable. IMPRESSION: | | No acute intracranial process or enhancing intracranial abnormality. I have personally | | reviewed the images and, if necessary, edited the report. I agree with the report as now | | presented. Final signature: Isatu Ramos MD 08/30/2019 1:06 PM Preliminary: | | Isatu Ramos MD Dictation initiated: Isatu Ramos MD 08/30/2019 1:03 | | PM | |FACE AND ORBITS: Visualized portions are unremarkable. | | | |IMPRESSION: | | | |No acute intracranial process or enhancing intracranial abnormality. | | | |I have personally reviewed the images and, if necessary, edited the report. I agree with th bina report as now presented. | | | |Final signature: Isatu Ramos MD 08/30/2019 1:06 PM | |Preliminary: Isatu Ramos MD | |Dictation initiated: Isatu Ramos MD 08/30/2019 1:03 PM | + + + +---------+ + + | Performing | Address | City/State/Zipcode | Phone Number | | Organization | | | | + +---------+ + + | [facility] | | | | | VOICE RECOGNITION 2 | | | | + +---------+ + + CAPILLARY BLOOD GLUCOSE (NO CHG), POC (08/30/2019 5:54 AM PST) + +-------+ + + + | Component | Value | Ref Range | Performed | Pathologist | | | | | At | Signature | + +-------+ + + + | BLOOD | 74 | 70 - 99 mg/dL [...] [facility] | [address] | [place], [place] | | | [facility] | [address] | [address] | | | TESTS | | | | + + + + + CAPILLARY BLOOD GLUCOSE (NO CHG), POC (08/30/2019 5:34 AM PST) + +--------+ + + + | Component | Value | Ref Range | Performed | Pathologist | | | | | At | Signature | + +--------+ + + + | BLOOD | 68 (L) | 70 - 99 mg/dL | [...] + | [facility] | [address] | [place], [place] | | | [facility]OCELY[facility] | [address] | [address] | | | TESTS | | | | + + + + + IRON AND TIBC (08/30/2019 3:49 AM PST) + +-------+ + + + | Component | Value | Ref Range | Performed | Pathologist | | | | | At | Signature | + +-------+ + + + | IRON | 66 | 30 - 160 ug/dL | [facility] | | | | | | LABORATORY | | | | | | SERVICES, | | | | | | CORE | | + +-------+ + + + | IRON BIND | 242 | 240 - 450 ug/dL | [facility] | | | CAP | | | LABORATORY | | | | | | SERVICES, | | | | | | CORE | | + +-------+ + + + | % | 27 | 20 - 50 % | [facility] | | | SATURATION | | | LABORATORY | | | TRANSFERRIN | | | SERVICES, | | | , | | | CORE | | + +-------+ + + + + + | Specimen | + + | Blood - Blood | | (substance) | + + + + + + + | Performing | Address | City/State/Zipcode | Phone Number | | Organization | | | | + + + + + | [facility] | [address] | [place] [address] | | | SERVICES, CORE | [address] | | | + + + + + FERRITIN (08/30/2019 3:49 AM PST) + + + + + + | Component | Value | Ref Range | Performed | Pathologist | | | | | At | Signature | + + + + + + | FERRITIN | 567 (H)Comment: Male and | 50 - 200 ng/mL | [facility] | | | | Female >18 years: | | LABORATORY | | | | <20 ng/mL: | | SERVICES, | | | | Consistant with iron | | CORE | | | | deficiency 21-50 | | | | | | ng/mL: Possible | | | | | | iron deficiency 51-99 | | | | | | ng/mL: Iron | | | | | | deficiency unlikely | | | | | | unless inflammation | | | | | | present or | | | | | | patient | | | | | | >65 years of age | | | | | | 100-200 ng/mL: | | | | | | Normal, not consistent | | | | | | with iron deficiency | | | | | | >200 ng/mL: If | | | | | | transferrin saturation | | | | | | >45%, consider | | | | | | hemochromatosis | | | | + + + + + + + + | Specimen | + + | Blood - Blood | | (substance) | + + + + + + + | Performing | Address | City/State/Zipcode | Phone Number | | Organization | | | | + + + + + | [facility] | [address] | [place] [address] | | | SERVICES, CORE | [address] | | | + + + + + CBC AND AUTO DIFF (08/30/2019 3:49 AM PST) + + + + + + | Component | Value | Ref Range | Performed | Pathologist | | | | | At | Signature | + + + + + + | WHITE CELL | 3.05 (L) | 3.50 - 10.80 | [facility] [...] + + + + | HEMATOCRIT | 30.5 (L) | 36.0 - 46.0 % | [facility] | | | | | | LABORATORY | | | | | | SERVICES, | | | | | | CORE | | + + + + + + | MCV | 89.2 | 80.0 - 100.0 fL | [facility] | | | | | | LABORATORY | | | | | | SERVICES, | | | | | | CORE | | + + + + + + | MCHC | 31.1 (L) | 32.0 - 36.0 | [facility] | | | | | g/dL | LABORATORY | | | | | | SERVICES, | | | | | | CORE | | + + + + + + | RDW SD | 52.7 (H) | 35.1 - 46.3 fL | [facility] | | | | | | LABORATORY | | | | | | SERVICES, | | | | | | CORE | | + + + + + + | PLATELET | 151 | 150 - 400 K/cu | [facility] [...] + + + + | NEUTROPHIL | 68.3 | 50.0 - 70.0 % | [facility] | | | % | | | LABORATORY | | | | | | SERVICES, | | | | | | CORE | | + + + + + + | LYMPHOCYTE | 15.7 (L) | 18.0 - 42.0 % | [...] + + + | EOS % | 5.2 (H) | 1.0 - 3.0 % | [...] + + + + | IG% | 0.3 | 0.0 - 1.0 % | [facility] | | | | | | LABORATORY | | | | | | SERVICES, | | | | | | CORE | | + + + + + + | NEUTROPHIL | 2.08 | 1.80 - 7.70 | [facility] | | | # | | K/cu mm | LABORATORY | | | | | | SERVICES, | | | | | | CORE | | + + + + + + | LYMPHOCYTE | 0.48 (L) | 1.00 - 4.80 | [facility] | | | # | | K/cu mm | LABORATORY | | | | | | SERVICES, | | | | | | CORE | | + + + + + + | MONOCYTE # | 0.29 | 0.10 - 0.90 | [facility] | | | | | K/cu mm | LABORATORY | | | | | | SERVICES, | | | | | | CORE | | + + + + + + | EOS # | 0.16 | 0.00 - 0.50 | [facility] | [...] | + + + + + | [facility] | [address] | [place] [address] | | | SERVICES, CORE | [address] | | | + + + + + BASIC METABOLIC SET (NA, K, CL, TCO2, BUN, CR, GLU, CA) (08/30/2019 3:49 AM PST) + + + + + + | Component | Value | Ref Range | Performed | Pathologist | | | | | At | Signature | + + + + + + | GLUCOSE, | 70 | 70 - 99 mg/dL | [facility] | | | PLASMA | | | LABORATORY | | | (LAB) | | | SERVICES, | | | | | | CORE | | + + + + + + | BUN, PLASMA | 26 (H) | 6 - 20 mg/dL | [facility] | | | (LAB) | | | LABORATORY | | | | | | SERVICES, | | | | | | CORE | | + + + + + + | CREATININE | 1.42 (H) | 0.60 - 1.10 | [facility] | | | PLASMA | | mg/dL | LABORATORY | | | (LAB) | | | SERVICES, | | | | | | CORE | | + + + + + + | EGFR | 46 (L) | >60 mL/min | [facility] | | | - | | | LABORATORY | | | [facility]OLAN | | | SERVICES, | | | | | | CORE | | + + + + + + | EGFR NON | 38 (L) | >60 mL/min | [facility] | | | -LISA | | | LABORATORY | | | RICAN | | | SERVICES, | | | | | | CORE | | + + + + + + | SODIUM, | 143 | 136 - 145 | [facility] | [...] + + + + | CHLORIDE, | 116 (H) | 97 - 108 mmol/L | [...] + + + | ANION GAP | 5 | 4 - 11 mmol/L | [facility] [...] [facility] | [address] | [place] [address] | | | SERVICES, CORE | [address] | | | + + + + + URIC ACID, PLASMA (08/30/2019 3:49 AM PST) + +-------+ + + + | Component | Value | Ref Range | Performed | Pathologist | | | | | At | Signature | + +-------+ + + + | URIC ACID, | 5.5 | 2.5 - 6.2 mg/dL | [facility] | | | PLASMA [...] [facility] | [address] | [place] [address] | | | SERVICES, CORE | [address] | | | + + + + + PHOSPHORUS, PLASMA (08/30/2019 3:49 AM PST) + +---------+ + + + | Component | Value | Ref Range | Performed | Pathologist | | | | | At | Signature | + +---------+ + + + | PHOSPHORUS, | 2.2 (L) | 2.4 - 4.7 mg/dL | [facility] | | | PLASMA [...] + + + + + | [facility] | [address] | [place] [address] | | | SERVICES, DW[place] | [address] | | | + + + + + LDH TOTAL, PLASMA (08/30/2019 3:49 AM PST) + +---------+ + + + | Component | Value | Ref Range | Performed | Pathologist | | | | | At | Signature | + +---------+ + + + | LD TOTAL, | 408 (H) | <=250 U/L | [facility] | | | PLASMA | | | LABORATORY | | | | | | SERVICES, | | | | | | CORE | | + +---------+ + + + | LD CMNT | Sl Hemo | | [facility] [...] + + | Sample hemolyzed. Results for LD may be inaccurate. Refer to | [facility] | | comment under test. | LABORATORY | | | [facility] | + + + + + + + + | Performing | Address | City/State/Zipcode | Phone Number | | Organization | | | | + + + + + | [facility] | [address] | [place] [address] | | | [place] | [address] | | | + + + + + CALCIUM, IONIZED, WHOLE BLOOD (08/30/2019 3:49 AM PST) + +-------+ + + + | Component | Value | Ref Range | Performed | Pathologist | | | | | At | Signature | + +-------+ + + + | YASMANI ICA, | 1.19 | 1.14 - 1.32 | [facility] | | | WHOLE BLD | | mmol/L | LABORATORY | | | | | | SERVICES, | | | | | | CORE | | + +-------+ + + + | PH, WHOLE | 7.36 | | [facility] | | | BLOOD | | | LABORATORY | | | | | | SERVICES, | | | | | | CORE | | + +-------+ + + + | ICA, | 1.16 | 1.14 - 1.28 | [facility] | | | CORRECTED | | mmol/L | LABORATORY | | | TO PH 7.4 | | | SERVICES, | | | | | | CORE | | + +-------+ + + + + + | Specimen | + + | Blood - Blood | | (substance) | + + + + + + + | Performing | Address | City/State/Zipcode | Phone Number | | Organization | | | | + + + + + | [facility] | [address] | [place] [address] | | | SERVICES, CORE | [address] | | | + + + + + BASIC METABOLIC SET (NA, K, CL, TCO2, BUN, CR, GLU, CA) (08/29/2019 4:25 PM PST) + + + + + + | Component | Value | Ref Range | Performed | Pathologist | | | | | At | Signature | + + + + + + | GLUCOSE, | 65 (L) | 70 - 99 mg/dL | [facility] | | | PLASMA | | | LABORATORY | | | (LAB) | | | SERVICES, | | | | | | CORE | | + + + + + + | BUN, PLASMA | 30 (H) | 6 - 20 mg/dL | [facility] | | | (LAB) | | | LABORATORY | | | | | | SERVICES, | | | | | | CORE | | + + + + + + | CREATININE | 1.57 (H) | 0.60 - 1.10 | [facility] | | | PLASMA | | mg/dL | LABORATORY | | | (LAB) | | | SERVICES, | | | | | | CORE | | + + + + + + | EGFR | 41 (L) | >60 mL/min | [facility] | | | - | | | LABORATORY | | | ANGOLAN | | | SERVICES, | | | | | | CORE | | + + + + + + | EGFR NON | 34 (L) | >60 mL/min | [facility] | | | -LISA | | | LABORATORY | | | RICAN | | | SERVICES, | | | | | | CORE | | + + + + + + | SODIUM, | 140 | 136 - 145 | [facility] | | | PLASMA | | mmol/L | LABORATORY | | | (LAB) | | | SERVICES, | | | | | | CORE | | + + + + + + | POTASSIUM, | 4.4 | 3.4 - 5.0 | [facility] | [...] + + + | ANION GAP | 5 | 4 - 11 mmol/L | [facility] [...] + + + + | BUN/CREATIN | 19 | 8 - 25 | [facility] | [...] MDRD equation recommended by the National | [facility] | | Kidney Disease Education [...] | + + + + + | [facility] | [address] | [place] [address] | | | SERVICES, CORE | [address] | | | + + + + + URIC ACID, PLASMA (08/29/2019 4:25 PM PST) + +---------+ + + + | Component | Value | Ref Range | Performed | Pathologist | | | | | At | Signature | + +---------+ + + + | URIC ACID, | 9.7 (H) | 2.5 - 6.2 mg/dL | [facility] | | | PLASMA [...] [facility] | [address] | [place] [address] | | | SERVICES, CORE | [address] | | | + + + + + PHOSPHORUS, PLASMA (08/29/2019 4:25 PM PST) + +---------+ + + + | Component | Value | Ref Range | Performed | Pathologist | | | | | At | Signature | + +---------+ + + + | PHOSPHORUS, | 2.2 (L) | 2.4 - 4.7 mg/dL | [facility] | | | PLASMA [...] [facility] | [address] | [place] [address] | | | SERVICES, CORE | [address] | | | + + + + + LDH TOTAL, PLASMA (08/29/2019 4:25 PM PST) + +---------+ + + + | Component | Value | Ref Range | Performed | Pathologist | | | | | At | Signature | + +---------+ + + + | LD TOTAL, | 393 (H) | <=250 U/L | [facility] | | | PLASMA | | | LABORATORY | | | | | | SERVICES, | | | | | | CORE | | + +---------+ + + + | LD CMNT | No Hemo | | [facility] [...] [facility] | [address] | [place] [address] | | | SERVICES, DWIGHT | [address] | | | + + + + + IR NEURO KYPHOPLASTY /VERTEBROPLASTY (08/29/2019 3:00 PM PST) + + | Specimen | + + | | + + + + + | Narrative | Performed At | + + + | KYPHOPLASTY REPORT DATE OF PROCEDURE: August 29, 2019 | [facility] | | PROCEDURE PERFORMED: L2 kyphoplasty DIAGNOSIS: Metastatic renal | RADIOLOGY VOICE | | cell carcinoma CLINICAL HISTORY: This is a 54-year-old female with | RECOGNITION 2 | | newly diagnosed metastatic renal cell carcinoma. She has an L2 | | | metastasis and back pain associated with it. She has been referred for | | | kyphoplasty. OPERATIVE REPORT PRIMARY SURGEON: Yrn Clemens | | | Lily BULK SEALER OPERATOR SURGEONS: ANESTHESIA: Moderate sedation was | | | directly supervised by the attending physician and administered by | | | Lena Vallejo RN. Intra-service time: 20 minutes. Versed 1.5 mg | | | Fentanyl 100 mcg FLUOROSCOPY TIME: 252 seconds fluoroscopy time | | | COMPLICATIONS: None Apparent CONSENT: The procedure was | | | explained fully to the patient or the patient's surrogate, including | | | the risks of stroke, vascular injury at access site in leg, renal | | | failure from contrast, serious allergic reactions from medications or | | | contrast, incomplete study, benefits, and alternatives fully to the | | | patient. All questions were answered in detail and the patient | | | directed me to proceed. PROCEDURE IN DETAIL: The patient was | | | taken to the interventional neuroradiology suite and placed prone on | | | the table. The patient was given 2 g of Ancef intravenously. The | | | skin over the back was prepared and draped in the usual very sterile | | | fashion. AP and lateral fluoroscopy was used to introduce | | | Bupivacaine and lidocaine through the spinal needle into the pedicle. | | | A 10 gauge 12 cm [place] needle was then introduced to the right | | | pedicle using an AP projection and lateral fluoroscopy. The needle | | | was gently tapped with a mallet into the central portion of the body. | | | A curved curet was then used to create a channel across midline of | | | the vertebral body. The Jose G kyphoplasty balloon was then inserted | | | and inflated. The [place] bone cement delivery system was used. | | | The Jose G radiopacifier and bone cement was mixed. The mixture | | | was then stirred and shaken per the manufacturers instruction. The | | | mixture was then injected through the needle using AP and lateral | | | fluoroscopy. After completion of the cement injection, the stylet | | | was replaced and the needle was removed. Dr. Clemens was present and | | | performed the procedure as listed above and reviewed all the images. | | | FINDINGS: A compression deformity of the L2 vertebral body is | | | noted. Images demonstrate placement of the kyphoplasty needle in L2 | | | vertebral body by a right transpedicular approach. Images | | | demonstrate good filling of the L2 vertebral body with bone cement | | | without cement migration IMPRESSION: Uncomplicated L2 | | | kyphoplasty I have personally reviewed the images and, if | | | necessary, edited the report. I agree with the report as now | | | presented. Final signature: Yrn Clemens MD 08/29/2019 4:37 PM | | | Preliminary: Yrn Clemens MD Dictation initiated: Yrn Leal | Mel Clemens MD 08/29/2019 4:28 PM | | + + + + + | Procedure Note | + + | Service Account, Radiant Res In Interface - 08/29/2019 4:38 PM PST KYPHOPLASTY | | REPORT DATE OF PROCEDURE: August 29, 2019 PROCEDURE PERFORMED: L2 kyphoplasty | | DIAGNOSIS: Metastatic renal cell carcinoma CLINICAL HISTORY: This is a 54-year-old | | female with newly diagnosed metastatic renal cell carcinoma. She has an L2 metastasis | | and back pain associated with it. She has been referred for kyphoplasty. OPERATIVE | | REPORT PRIMARY SURGEON: Yrn Clemens M.D. BULK SEALER OPERATOR SURGEONS: ANESTHESIA:Moderate | | sedation was directly supervised by the attending physician and administered by Lena | | MISAEL Vallejo.Intra-service time: 20 minutes.Versed 1.5 mgFentanyl 100 mcg FLUOROSCOPY | | TIME: 252 seconds fluoroscopy time COMPLICATIONS: None Apparent CONSENT: The procedure | | was explained fully to the patient or the patient's surrogate, including the risks of | | stroke, vascular injury at access site in leg, renal failure from contrast, serious | | allergic reactions from medications or contrast, incomplete study, benefits, and | | alternatives fully to the patient. All questions were answered in detail and the | | patient directed me to proceed. PROCEDURE IN DETAIL:The patient was taken to the | | interventional neuroradiology suite and placed prone on the table. The patient was | | given 2 g of Ancef intravenously. The skin over the back was prepared and draped in the | | usual very sterile fashion. AP and lateral fluoroscopy was used to introduce | | Bupivacaine and lidocaine through the spinal needle into the pedicle. A 10 gauge 12 cm | | [place] needle was then introduced to the right pedicle using an AP projection and | | lateral fluoroscopy. The needle was gently tapped with a mallet into the central | | portion of the body. A curved curet was then used to create a channel across midline of | | the vertebral body. The [place] kyphoplasty balloon was then inserted and inflated. | | The Jose G bone cement delivery system was used. The Jose G radiopacifier and bone | | cement was mixed. The mixture was then stirred and shaken per the manufacturers | | instruction. The mixture was then injected through the needle using AP and lateral | | fluoroscopy. After completion of the cement injection, the stylet was replaced and the | | needle was removed. Dr. Clemens was present and performed the procedure as listed above and | | reviewed all the images. FINDINGS:A compression deformity of the L2 vertebral body is | | noted. Images demonstrate placement of the kyphoplasty needle in L2 vertebral body by a | | right transpedicular approach. Images demonstrate good filling of the L2 vertebral | | body with bone cement without cement migration IMPRESSION: Uncomplicated L2 kyphoplasty | | I have personally reviewed the images and, if necessary, edited the report. I agree with | | the report as now presented. Final signature: Yrn Clemens MD 08/29/2019 4:37 PM | | Preliminary: Yrn Clemens MD Dictation initiated: Yrn Clemens MD 08/29/2019 4:28 | | PM | |vertebral body. The [place] kyphoplasty balloon was then inserted and inflated. The St[place]ke r bone cement delivery system was used. The [place] radiopacifier and bone cement was mixed . The mixture was then stirred and | |shaken per the manufacturers instruction. The mixture was then injected through the needle using AP and lateral fluoroscopy. After completion of the | |cement injection, the stylet was replaced and the needle was removed. Dr. Clemens was present and performed the procedure as listed above and reviewed all the images. | | | | | |FINDINGS: | |A compression deformity of the L2 vertebral body is noted. Images demonstrate placement of the kyphoplasty needle in L2 vertebral body by a right transpedicular approach. Images dem onstrate good filling of the L2 | |vertebral body with bone cement without cement migration | | | |IMPRESSION: | |Uncomplicated L2 kyphoplasty | | | |I have personally reviewed the images and, if necessary, edited the report. I agree with th e report as now presented. | | | |Final signature: Yrn Clemens MD 08/29/2019 4:37 PM | |Preliminary: Yrn Clemens MD | |Dictation initiated: Yrn Clemens MD 08/29/2019 4:28 PM | + + + +---------+ + + | Performing | Address | City/State/Zipcode | Phone Number | | Organization | | | | + +---------+ + + | [facility] | | | | | VOICE RECOGNITION 2 | | | | + +---------+ + + PROCEDURE NOTE (08/29/2019 2:35 PM PST) + + + | Narrative | Performed At | + + + | Yrn Clemens MD 08/29/2019 4:27 PM INTERVENTIONAL | | | NEURORADIOLOGY Brief Procedure Note Attending Physician: | | | Yrn Clemens MD Assistants: Procedure Performed: L2 | | | Kyphoplasty Complications: None apparent Findings: 1. | | | Right L2 pedicular access. Kyphoplasty performed. Closure: | | | NA Plan: - Neuro checks - Further care per Hospitalist | | | service Yrn Clemens MD Compliance Specialist - | | | Skull base and Cerebrovascular Neurosurgery Department of | | | Neurological Railroad BrakemanCompliance Specialist - Interventional | | | Neuroradiology Felipe Key Department of Interventional | | | Radiology [facility] | | + + + CBC AND AUTO DIFF (08/29/2019 12:26 PM PST) + + + + + [...] + + + | RED CELL | 3.50 (L) | 4.00 - 5.20 | [facility] | | | COUNT | | M/cu mm | LABORATORY | | | | | | SERVICES, | | | | | | CORE | | + + + + + + | HEMOGLOBIN | 9.9 (L) | 12.0 - 16.0 | [facility] | | | | | g/dL | LABORATORY | | | | | | SERVICES, | | | | | | CORE | | + + + + + + | HEMATOCRIT | 31.7 (L) | 36.0 - 46.0 % | [facility] | | | | | | LABORATORY | | | | | | SERVICES, | | | | | | CORE | | + + + + + + | MCV | 90.6 | 80.0 - 100.0 fL | [facility] [...] + + + | RDW SD | 53.2 (H) | 35.1 - 46.3 fL | [facility] | | | | | | LABORATORY | | | | | | SERVICES, | | | | | | CORE | | + + + + + + | PLATELET | 168 | 150 - 400 K/cu | [facility] | | | COUNT | | mm | LABORATORY | | | | | | SERVICES, | | | | | | CORE | | + + + + + + | MPV | 8.9 (L) | 9.7 - 12.3 fL | [facility] | | | | | | LABORATORY | | | | | | SERVICES, | | | | | | CORE | | + + + + + + | NRBC% | 0.6 (H) | 0.0 - 0.3 % | [facility] | | | | | | LABORATORY | | | | | | SERVICES, | | | | | | CORE | | + + + + + + | NRBC# | 0.02 | 0.00 - 0.02 | [facility] | | | | | K/cu mm | LABORATORY | | | | | | SERVICES, | | | | | | CORE | | + + + + + + | NEUTROPHIL | 67.9 | 50.0 - 70.0 % | [facility] | | | % | | | LABORATORY | | | | | | SERVICES, | | | | | | CORE | | + + + + + + | LYMPHOCYTE | 15.9 (L) | 18.0 - 42.0 % | [facility] | | | % | | | LABORATORY | | | | | | SERVICES, | | | | | | CORE | | + + + + + + | MONOCYTE % | 8.9 | 3.5 - 9.0 % | [facility] | | | | | | LABORATORY | | | | | | SERVICES, | | | | | | CORE | | + + + + + + | EOS % | 6.1 (H) | 1.0 - 3.0 % | [facility] | | | | | | LABORATORY | | | | | | SERVICES, | | | | | | CORE | | + + + + + + | BASO % | 0.9 | 0.0 - 2.0 % | [facility] | | | | | | LABORATORY | | | | | | SERVICES, | | | | | | CORE | | + + + + + + | IG% | 0.3 | 0.0 - 1.0 % | [facility] | | | | | | LABORATORY | | | | | | SERVICES, | | | | | | CORE | | + + + + + + | NEUTROPHIL | 2.36 | 1.80 - 7.70 | [facility] | | | # | | K/cu mm | LABORATORY | | | | | | SERVICES, | | | | | | CORE | | + + + + + + | LYMPHOCYTE | 0.55 (L) | 1.00 - 4.80 | [facility] [...] + + + | EOS # | 0.21 | 0.00 - 0.50 | [facility] | [...] | + + + + + | [facility] | [address] | [place] [address] | | | SERVICES, CORE | [address] | | | + + + + + LEUKEMIA/LYMPHOMA MARKER - BLOOD (08/29/2019 12:26 PM PST) + + + + + + | Component | Value | Ref Range | Performed | Pathologist | | | | | At | Signature | + + + + + + | Final | Peripheral blood, flow | | [facility] | Electronically | | Pathologic | cytometric analysis: - | | DEPARTMENT | signed by Madison | | Diagnosis | No evidence of lymphoma | | OF | MD Gato,PhD on | | | or acute leukemia.Case | | PATHOLOGY | 08/31/2019 at | | | seen by:Madison Hoskins M.D., | | | 11:20 AM | | | Ph.D. - | | | | | | HematopathologistPatholo | | | | | | , [facility] | | | | | 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0 % 15.7Low | | | | | | MONOCYTE % 3.5 - 9.0 % | | | | | | 9.5High EOS % 1.0 - | | | | | | 3.0 % 5.2High BASO % | | | | | | 0.0 - 2.0 % 1.0 | | | | | | NEUTROPHIL # 1.80 - 7.70 | | | | | | K/cu mm 2.08 | | | | | | LYMPHOCYTE # 1.00 - 4.80 | | | | | | K/cu mm 0.48Low | | | | | | MONOCYTE # 0.10 - 0.90 | | | | | | K/cu mm 0.29 EOS # 0.00 | | | | | | - 0.50 K/cu mm 0.16 | | | | | | BASO # 0.00 - 0.10 K/cu | | | | | | mm 0.03 PERIPHERAL | | | | | | BLOOD MORPHOLOGY:WBC: | | | | | | Neutrophils show normal | | | | | | nuclear segmentation and | | | | | | cytoplasmic | | | | | | granularity. Lymphocytes | | | | | | are heterogeneous and | | | | | | mature. Monocytes have | | | | | | variable morphology. No | | | | | | circulating blast. RBC: | | | | | | Unremarkable. Platelets: | | | | | | Adequate. Normal | | | | | | granularity. No giant | | | | | | forms. No platelet | | | | | | clumps. FLOW CYTOMETRIC | | | | | | ANALYSIS: % of | | | | | | total WBC (CD45+)Myeloid | | | | | | Blasts <1 Monocytes 7.6 | | | | | | Lymphocytes 16.4 | | | | | | % of | | | | | | LymphocytesB-cells 20.6 | | | | | | T-Cells 54.8 NK-cells | | | | | | 11.2 | | | | | | RatioKappa/Lambda 1.62 | | | | | | CD4/CD8 4.6 Summary: No | | | | | | increased in blasts. | | | | | | B-cells are polyclonal | | | | | | with kappa/lambda ratio | | | | | | of 1.6:1. T-cells with | | | | | | no antigen expression | | | | | | aberrancy with CD4/CD8 | | | | | | ratio of 4.6:.Antibodies | | | | | | Tested CD2 CD3 CD4 CD5 | | | | | | CD7 CD8 CD10 CD19 CD20 | | | | | | CD23 CD25 CD34 CD45 CD56 | | | | | | CD103 Anita Aguilarda | | | | | | | | | | + + + + + + | Gross | A Sánchez-stained | | [facility] | | | Description | peripheral blood smear | | DEPARTMENT | | | | and/or a cytospin was | | OF | | | | reviewed. | | PATHOLOGY | | + + + + + [...] | | | | | determined by [facility] | | | | | | laboratories. [...] + + + | [facility] | [address] | [place] [address] | | | PATHOLOGY | [address] | | | + + + + + CONFIRMATORY ABO/RH (08/29/2019 9:37 AM PST) + + + + + + | Component | Value | Ref Range | Performed | Pathologist | | | | | At | Signature | + + + + + + | ABO Group | O | | [facility] | | | | | | LABORATORY | | | | | | SERVICES, | | | | | | TRANSFUSION | | | | | | MEDICINE | | + + + + + + | Rh Type | Positive | | [facility] | | | | | | LABORATORY | | | | | | SERVICES, | | | | | | TRANSFUSION | | | | | | MEDICINE | | + + + + + + + + | Specimen | + + | Blood - Blood | | (substance) | + + + + + + + | Performing | Address | City/State/Zipcode | Phone Number | | Organization | | | | + + + + + | [facility] | [address] | [place] [address] | | | SERVICES, | [address] | | | | TRANSFUSION MEDICINE | | | | + + + + + ANTIBODY SCREEN (08/29/2019 9:37 AM PST) + + + + + + | Component | Value | Ref Range | Performed | Pathologist | | | | | At | Signature | + + + + + + | Antibody | Negative | | [facility] | | | Screen | | | LABORATORY | | | | | | SERVICES, | | | | | | TRANSFUSION | | | | | | MEDICINE | | + + + + + + + + | Specimen | + + | Blood - Blood | | (substance) | + + + + + + + | Performing | Address | City/State/Zipcode | Phone Number | | Organization | | | | + + + + + | [facility] | [address] | [place] [address] | | | SERVICES, | [address] | | | | TRANSFUSION MEDICINE | | | | + + + + + ABO & RH TYPE (08/29/2019 9:37 AM PST) + + + + + + | Component | Value | Ref Range | Performed | Pathologist | | | | | At | Signature | + + + + + + | ABO Group | O | | [facility] | | | | | | LABORATORY | | | | | | SERVICES, | | | | | | TRANSFUSION | | | | | | MEDICINE | | + + + + + + | Rh Type | Positive | | [facility] | | | | | | LABORATORY | | | | | | SERVICES, | | | | | | TRANSFUSION | | | | | | MEDICINE | | + + + + + + + + | Specimen | + + | Blood - Blood | | (substance) | + + + + + + + | Performing | Address | City/State/Zipcode | Phone Number | | Organization | | | | + + + + + | [facility] | [address] | [place] [address] | | | SERVICES, | [address] | | | | TRANSFUSION MEDICINE | | | | + + + + + INR (08/29/2019 9:37 AM PST) + +-------+ + + + | Component | Value | Ref Range | Performed | Pathologist | | | | | At | Signature | + +-------+ + + + | INR | 1.06 | 0.90 - 1.20 INR | [facility] [...] mech. valves (2.5 - 3.5) INR | [address] | + + + + + + + + | Performing | Address | City/State/Zipcode | Phone Number | | Organization | | | | + + + + + | [facility] | [address] | [place] [address] | | | SERVICES, CORE | [address] | | | + + + + + CBC AND AUTO DIFF (08/29/2019 3:48 AM PST) + + + + + + | Component | Value | Ref Range | Performed | Pathologist | | | | | At | Signature | + + + + + + | WHITE CELL | 3.78 | 3.50 - 10.80 | [facility] | | | COUNT | | K/cu mm | LABORATORY | | | | | | SERVICES, | | | | | | CORE | | + + + + + + | RED CELL | 3.50 (L) | 4.00 - 5.20 | [facility] | | | COUNT | | M/cu mm | LABORATORY | | | | | | SERVICES, | | | | | | CORE | | + + + + + + | HEMOGLOBIN | 9.8 (L) | 12.0 - 16.0 | [facility] | | | | | g/dL | LABORATORY | | | | | | SERVICES, | | | | | | CORE | | + + + + + + | HEMATOCRIT | 31.4 (L) | 36.0 - 46.0 % | [facility] | | | | | | LABORATORY | | | | | | SERVICES, | | | | | | CORE | | + + + + + + | MCV | 89.7 | 80.0 - 100.0 fL | [facility] [...] + + + | RDW SD | 52.5 (H) | 35.1 - 46.3 fL | [facility] | | | | | | LABORATORY | | | | | | SERVICES, | | | | | | CORE | | + + + + + + | PLATELET | 158 | 150 - 400 K/cu | [facility] [...] + + + + | NEUTROPHIL | 63.2 | 50.0 - 70.0 % | [facility] | | | % | | | LABORATORY | | | | | | SERVICES, | | | | | | CORE | | + + + + + + | LYMPHOCYTE | 20.1 | 18.0 - 42.0 % | [facility] | | | % | | | LABORATORY | | | | | | SERVICES, | | | | | | CORE | | + + + + + + | MONOCYTE % | 9.0 | 3.5 - 9.0 % | [facility] | | | | | | LABORATORY | | | | | | SERVICES, | | | | | | CORE | | + + + + + + | EOS % | 6.6 (H) | 1.0 - 3.0 % | [facility] | | | | | | LABORATORY | | | | | | SERVICES, | | | | | | CORE | | + + + + + + | BASO % | 0.8 | 0.0 - 2.0 % | [facility] | | | | | | LABORATORY | | | | | | SERVICES, | | | | | | CORE | | + + + + + + | IG% | 0.3 | 0.0 - 1.0 % | [facility] | | | | | | LABORATORY | | | | | | SERVICES, | | | | | | CORE | | + + + + + + | NEUTROPHIL | 2.39 | 1.80 - 7.70 | [facility] | [...] + + + | MONOCYTE # | 0.34 | 0.10 - 0.90 | [facility] | | | | | K/cu mm | LABORATORY | | | | | | SERVICES, | | | | | | CORE | | + + + + + + | EOS # | 0.25 | 0.00 - 0.50 | [facility] | [...] [facility] | [address] | [place] [address] | | | SERVICES, CORE | [address] | | | + + + + + BASIC METABOLIC SET (NA, K, CL, TCO2, BUN, CR, GLU, CA) (08/29/2019 3:48 AM PST) + + + + + + | Component | Value | Ref Range | Performed | Pathologist | | | | | At | Signature | + + + + + + | GLUCOSE, | 73 | 70 - 99 mg/dL | [facility] | | | PLASMA | | | LABORATORY | | | (LAB) | | | SERVICES, | | | | | | CORE | | + + + + + + | BUN, PLASMA | 32 (H) | 6 - 20 mg/dL | [facility] | | | (LAB) | | | LABORATORY | | | | | | SERVICES, | | | | | | CORE | | + + + + + + | CREATININE | 1.81 (H) | 0.60 - 1.10 | [facility] | | | PLASMA | | mg/dL | LABORATORY | | | (LAB) | | | SERVICES, | | | | | | CORE | | + + + + + + | EGFR | 35 (L) | >60 mL/min | [facility] | | | - | | | LABORATORY | | | ANGOLAN | | | SERVICES, | | | | | | CORE | | + + + + + + | EGFR NON | 29 (L) | >60 mL/min | [facility] | | | -LISA | | | LABORATORY | | | RICAN | | | SERVICES, | | | | | | CORE | | + + + + + + | SODIUM, | 140 | 136 - 145 | [facility] | | | PLASMA | | mmol/L | LABORATORY | | | (LAB) | | | SERVICES, | | | | | | CORE | | + + + + + + | POTASSIUM, | 4.9 | 3.4 - 5.0 | [facility] | [...] + + + | ANION GAP | 5 | 4 - 11 mmol/L | [facility] [...] MDRD equation recommended by the National | [facility] | | Kidney Disease Education [...] [facility] | [address] | [place] [address] | | | SERVICES, CORE | [address] | | | + + + + + CALCIUM, IONIZED, WHOLE BLOOD (08/29/2019 3:48 AM PST) + +-------+ + + + | Component | Value | Ref Range | Performed | Pathologist | | | | | At | Signature | + +-------+ + + + | YASMANI ICA, | 1.22 | 1.14 - 1.32 | [facility] | | | WHOLE BLD | | mmol/L | LABORATORY | | | | | | MICHELLE, | | | | | | CORE | | + +-------+ + + + | PH, WHOLE | 7.32 | | [facility] | | | BLOOD | | | LABORATORY | | | | | | SERVICES, | | | | | | CORE | | + +-------+ + + + | ICA, | 1.17 | 1.14 - 1.28 | [facility] | | | CORRECTED | | mmol/L | LABORATORY | | | TO PH 7.4 | | | SERVICES, | | | | | | CORE | | + +-------+ + + + + + | Specimen | + + | Blood - Blood | | (substance) | + + + + + + + | Performing | Address | City/State/Zipcode | Phone Number | | Organization | | | | + + + + + | [facility] | [address] | [place] [address] | | | SERVICES, DW[place] | [address] | | | + + + + + VASC LAB VENOUS DUPLEX LOWER EXTREMITY BILAT COMP (08/28/2019 3:32 PM PST) + + | Specimen | + + | | + + + + + | Narrative | Performed At | + + + | Bilateral: The duplex scanner was used to examine the deep and | [facility] | | superficial veins of the right and left lower extremities. The veins | RADIOLOGY VASC | | are patent bilaterally with normal flow and responses to augmentation | US | | and compression maneuvers and no thrombus is [...] Note | + + | Service Account, 2CRisk Res In Interface - 08/28/2019 3:30 PM PST Bilateral: The | | duplex scanner was [...] | | | + +---------+ + + URIC ACID, PLASMA (08/28/2019 11:46 AM PST) + + + + + + | Component | Value | Ref Range | Performed | Pathologist | | | | | At | Signature | + + + + + + | URIC ACID, | 10.5 (H) | 2.5 - 6.2 mg/dL | [facility] | | | PLASMA [...] [facility] | [address] | [place] [address] | | | MICHELLE, DWIGHT | [address] | | | + + + + + LDH TOTAL, PLASMA (08/28/2019 11:46 AM PST) + +---------+ + + + | Component | Value | Ref Range | Performed | Pathologist | | | | | At | Signature | + +---------+ + + + | LD TOTAL, | 326 (H) | <=250 U/L | [facility] | | | PLASMA | | | LABORATORY | | | | | | SERVICES, | | | | | | CORE | | + +---------+ + + + | LD CMNT | No Hemo | | [facility] [...] [facility] | [address] | [place] [address] | | | SERVICES, CORE | [address] | | | + + + + + BASIC METABOLIC SET (NA, K, CL, TCO2, BUN, CR, GLU, CA) (08/28/2019 11:46 AM PST) + + + + + + | Component | Value | Ref Range | Performed | Pathologist | | | | | At | Signature | + + + + + + | GLUCOSE, | 85 | 70 - 99 mg/dL | [facility] | | | PLASMA | | | LABORATORY | | | (LAB) | | | SERVICES, | | | | | | CORE | | + + + + + + | BUN, PLASMA | 38 (H) | 6 - 20 mg/dL | [facility] | | | (LAB) | | | LABORATORY | | | | | | SERVICES, | | | | | | CORE | | + + + + + + | CREATININE | 1.76 (H) | 0.60 - 1.10 | [facility] | | | PLASMA | | mg/dL | LABORATORY | | | (LAB) | | | SERVICES, | | | | | | CORE | | + + + + + + | EGFR | 36 (L) | >60 mL/min | [facility] | | | - | | | LABORATORY | | | [facility] | | | SERVICES, | | | | | | CORE | | + + + + + + | EGFR NON | 30 (L) | >60 mL/min | [facility] | [...] + + + + | POTASSIUM, | 4.6 | 3.4 - 5.0 | [facility] | [...] + + + | ANION GAP | 5 | 4 - 11 mmol/L | [facility] [...] + + + + | BUN/CREATIN | 22 | 8 - 25 | [facility] | [...] MDRD equation recommended by the National | [facility] | | Kidney Disease Education [...] + | [facility] | [address] | [place] [address] | | | SERVICES, CORE | [address] | | | + + + + + CBC AND AUTO DIFF (08/28/2019 4:48 AM PST) + + + + + + | Component | Value | Ref Range | Performed | Pathologist | | | | | At | Signature | + + + + + + | WHITE CELL | 3.83 | 3.50 - 10.80 | [facility] | | | COUNT | | K/cu mm | LABORATORY | | | | | | SERVICES, | | | | | | CORE | | + + + + + + | RED CELL | 3.40 (L) | 4.00 - 5.20 | [facility] [...] + + + + | HEMATOCRIT | 30.5 (L) | 36.0 - 46.0 % | [facility] | | | | | | LABORATORY | | | | | | SERVICES, | | | | | | CORE | | + + + + + + | MCV | 89.7 | 80.0 - 100.0 fL | [facility] | | | | | | LABORATORY | | | | | | SERVICES, | | | | | | CORE | | + + + + + + | MCHC | 31.1 (L) | 32.0 - 36.0 | [facility] | | | | | g/dL | LABORATORY | | | | | | SERVICES, | | | | | | CORE | | + + + + + + | RDW SD | 51.0 (H) | 35.1 - 46.3 fL | [facility] | | | | | | LABORATORY | | | | | | SERVICES, | | | | | | CORE | | + + + + + + | PLATELET | 142 (L) | 150 - 400 K/cu | [facility] | | | COUNT | | mm | LABORATORY | | | | | | SERVICES, | | | | | | CORE | | + + + + + + | MPV | 9.2 (L) | 9.7 - 12.3 fL | [...] + + + + | NEUTROPHIL | 70.3 (H) | 50.0 - 70.0 % | [facility] | | | % | | | LABORATORY | | | | | | SERVICES, | | | | | | CORE | | + + + + + + | LYMPHOCYTE | 17.2 (L) | 18.0 - 42.0 % | [facility] | | | % | | | LABORATORY | | | | | | SERVICES, | | | | | | CORE | | + + + + + + | MONOCYTE % | 9.4 (H) | 3.5 - 9.0 % | [facility] | | | | | | LABORATORY | | | | | | SERVICES, | | | | | | CORE | | + + + + + + | EOS % | 2.1 | 1.0 - 3.0 % | [facility] | | | | | | LABORATORY | | | | | | SERVICES, | | | | | | CORE | | + + + + + + | BASO % | 0.5 | 0.0 - 2.0 % | [facility] [...] + + + + | NEUTROPHIL | 2.69 | 1.80 - 7.70 | [facility] | | | # | | K/cu mm | LABORATORY | | | | | | SERVICES, | | | | | | CORE | | + + + + + + | LYMPHOCYTE | 0.66 (L) | 1.00 - 4.80 | [facility] | | | # | | K/cu mm | LABORATORY | | | | | | SERVICES, | | | | | | CORE | | + + + + + + | MONOCYTE # | 0.36 | 0.10 - 0.90 | [facility] | | | | | K/cu mm | LABORATORY | | | | | | SERVICES, | | | | | | CORE | | + + + + + + | EOS # | 0.08 | 0.00 - 0.50 | [facility] | | | | | K/cu mm | LABORATORY | | | | | | SERVICES, | | | | | | CORE | | + + + + + + | BASO # | 0.02 | 0.00 - 0.10 | [...] | + + + + + | [facility] | [address] | [place] [address] | | | SERVICES, CORE | [address] | | | + + + + + CALCIUM, IONIZED, WHOLE BLOOD (08/28/2019 4:48 AM PST) + +-------+ + + + | Component | Value | Ref Range | Performed | Pathologist | | | | | At | Signature | + +-------+ + + + | YASMANI ICA, | 1.25 | 1.14 - 1.32 | [facility] | | | WHOLE BLD | | mmol/L | LABORATORY | | | | | | SERVICES, | | | | | | CORE | | + +-------+ + + + | PH, WHOLE | 7.35 | | [facility] | | | BLOOD | | | LABORATORY | | | | | | SERVICES, | | | | | | CORE | | + +-------+ + + + | ICA, | 1.21 | 1.14 - 1.28 | [facility] | | | CORRECTED | | mmol/L | LABORATORY | | | TO PH 7.4 | | | SERVICES, | | | | | | CORE | | + +-------+ + + + + + | Specimen | + + | Blood - Blood | | (substance) | + + + + + + + | Performing | Address | City/State/Zipcode | Phone Number | | Organization | | | | + + + + + | [facility] | [address] | [place] [address] | | | SERVICES, CORE | [address] | | | + + + + + BASIC METABOLIC SET (NA, K, CL, TCO2, BUN, CR, GLU, CA) (08/27/2019 10:44 PM PST) + + + + + + | Component | Value | Ref Range | Performed | Pathologist | | | | | At | Signature | + + + + + + | GLUCOSE, | 97 | 70 - 99 mg/dL | [facility] | | | PLASMA | | | LABORATORY | | | (LAB) | | | SERVICES, | | | | | | CORE | | + + + + + + | BUN, PLASMA | 38 (H) | 6 - 20 mg/dL | [facility] | | | (LAB) | | | LABORATORY | | | | | | SERVICES, | | | | | | CORE | | + + + + + + | CREATININE | 1.95 (H) | 0.60 - 1.10 | [facility] | | | PLASMA | | mg/dL | LABORATORY | | | (LAB) | | | SERVICES, | | | | | | CORE | | + + + + + + | EGFR | 32 (L) | >60 mL/min | [facility] | | | - | | | LABORATORY | | | [facility] | | | SERVICES, | | | | | | CORE | | + + + + + + | EGFR NON | 27 (L) | >60 mL/min | [...] + + + + | CALCIUM, | 8.8 | 8.6 - 10.2 | [facility] | [...] + + + + | BUN/CREATIN | 19 | 8 - 25 | [facility] | [...] | + + + + + | [facility] | [address] | [place] [address] | | | SERVICES, CORE | [address] | | | + + + + + BENTON ACTH STM 60 (08/27/2019 4:11 PM PST) + +-------+ + + + | Component | Value | Ref Range | Performed | Pathologist | | | | | At | Signature | + +-------+ + + + | CORTISOL, | 38.4 | ug/dL | [facility] | | | [...] | [facility] | | than 20 ug/dL. | LABORATORY | | | SERVICES, CORE | + + + + + + + + | Performing | Address | City/State/Zipcode | Phone Number | | Organization | | | | + + + + + | [facility] | [address] | [place] [address] | | | SERVICES, CORE | [address] | | | + + + + + BENTON ACTH STM 30 (08/27/2019 4:11 PM PST) + +-------+ + + + | Component | Value | Ref Range | Performed | Pathologist | | | | | At | Signature | + +-------+ + + + | CORTISOL, | 30.4 | ug/dL | [facility] | | | [...] | [facility] | | than 20 ug/dL. | LABORATORY | | | SERVICES, CORE | + + + + + + + + | Performing | Address | City/State/Zipcode | Phone Number | | Organization | | | | + + + + + | [facility] | [address] | [place] [address] | | | SERVICES, CORE | [address] | | | + + + + + BENTON ACTH STM 0 (08/27/2019 2:07 PM PST) + +-------+ + + + | Component | Value | Ref Range | Performed | Pathologist | | | | | At | Signature | + +-------+ + + + | CORTISOL, | 6.1 | ug/dL | [facility] | | | [...] | + + + + + | [facility] | [address] | [place] [address] | | | SERVICES, DW[place] | [address] | | | + + + + + LUTEINIZING HORMONE, SERUM (08/27/2019 2:06 PM PST) + + + + + + | Component | Value | Ref Range | Performed | Pathologist | | | | | At | Signature | + + + + + + | LUTEINIZING | 34Comment: LH FEMALE | mIU/mL | [facility] - | | | | REFERENCE RANGE: | | [facility] - | | | HORMONE,SER | Follicular: less than 11 | | [place] | | | UM | mIU/mL Midcycle: | | | | | | 19-103 mIU/mL Luteal: | | | | | | less than 13 miU/mL Post | | | | | | Menopausal: 11 - 59 | | | | | | mIU/mL | | | | | | Post Menopausal: 11 - 59 mIU/mL | | | | + + + + + + + + | Specimen | + + | Blood - Blood | | (substance) | + + + + + | Narrative | Performed At | + + + | | [facility] - | | | [facility] - | | | [place] | + + + + + + + + | Performing | Address | City/State/Zipcode | Phone Number | | Organization | | | | + + + + + | [facility] - | [address] | [place] [address] | | | [place] | | | | + + + + + FSH, SERUM (08/27/2019 2:06 PM PST) + + + + + + | Component | Value | Ref Range | Performed | Pathologist | | | | | At | Signature | + + + + + + | FSH,SERUM | 53Comment: FSH FEMALE | mIU/mL | [facility] - | | | | REFERENCE RANGES | | [facility] - | | | | Follicular: 4-9 mIU/mL | | [place] | | | | Midcycle: 5-23 mIU/mL | | | | | | Luteal: 2-5 mIU/mL | | | | | | Post Menopausal: | | | | | | 17-114 mIU/mL | | | | | | Luteal: 2-5 mIU/mL | | | | | | Post Menopausal: 17-114 mIU/mL | | | | + + + + + + + + | Specimen | + + | Blood - Blood | | (substance) | + + + + + | Narrative | Performed At | + + + | | [facility] - | | | [facility] - | | | [place] | + + + + + + + + | Performing | Address | City/State/Zipcode | Phone Number | | Organization | | | | + + + + + | [facility] | [address] | [place] [address] | | | [place] | | | | + + + + + PROLACTIN (08/27/2019 2:04 PM PST) + +-------+ + + + | Component | Value | Ref Range | Performed | Pathologist | | | | | At | Signature | + +-------+ + + + | PROLACTIN | 18.0 | 2.8 - 26.0 | [facility] | | | | | ng/ml | LABORATORY | | | | | | SERVICES, | | | | | | CORE | | + +-------+ + + + + + | Specimen | + + | Blood - Blood | | (substance) | + + + + + | Narrative | Performed At | + + + | Test performed in [facility] lab. New reference range in effect | [facility] | | 2-6-18. | LABORATORY | | | [address] | + + + + + + + + | Performing | Address | City/State/Zipcode | Phone Number | | Organization | | | | + + + + + | [facility] | [address] | [place] [address] | | | SERVICES, [place] | [address] | | | + + + + + INSULIN GROWTH FACTOR-1, SERUM (08/27/2019 2:04 PM PST) + + + + + + | Component | Value | Ref Range | Performed | Pathologist | | | | | At | Signature | + + + + + + | IGF-1 | 61 | 48 - 235 ng/mL | [facility] | | | | | | REG UNIV | | | | | | PTH - [facility] | | + + + + + + | IGF-1 | -1.6Comment: | | [facility] | | | Z-SCORE | INTERPRETIVE | | REG UNIV | | | | INFORMATION: IGF 1 | | PTH - [facility] | | | | Z-SCORE CALCULATION A Z | | | | | | score is the number of | | | | | | standard deviations a | | | | | | given result is above | | | | | | (positive score) or | | | | | | below (negative score) | | | | | | the age- and | | | | | | sex-adjusted population | | | | | | mean. Results that are | | | | | | within the IGF-1 | | | | | | reference interval will | | | | | | have a Z score between | | | | | | -2.0 and +2.0.Performed | | | | | | by [employer],[address] | | | | | [address], [facility],[place] | | | | | | [id number] | | | | | | [phone].[email or web address]. | | | | | | Denis [...] | + + + + + | [facility] | [address] | [place], [place] | | | UNIV PTH - [facility] | | [id number] | | + + + + + ACTH, PLASMA (08/27/2019 2:04 PM PST) + +-------+ + + + | Component | Value | Ref Range | Performed | Pathologist | | | | | At | Signature | + +-------+ + + + | ACTH,PLASMA | 2 | <=45 pg/mL | [facility] | | | | | | [facility] - | | | | | | [place] | | + +-------+ + + + + + | Specimen | + + | Blood - Blood | | (substance) | + + + + + | Narrative | Performed At | + + + | | [facility] - | | | [facility] - | | | [place] | + + + + + + + + | Performing | Address | City/State/Zipcode | Phone Number | | Organization | | | | + + + + + | [facility] | [address] | [place] [address] | | | [place] | | | | + + + + + BASIC METABOLIC SET (NA, K, CL, TCO2, BUN, CR, GLU, CA) (08/27/2019 10:26 AM PST) + + + + + + | Component | Value | Ref Range | Performed | Pathologist | | | | | At | Signature | + + + + + + | GLUCOSE, | 116 (H) | 70 - 99 mg/dL | [facility] | | | PLASMA | | | LABORATORY | | | (LAB) | | | SERVICES, | | | | | | CORE | | + + + + + + | BUN, PLASMA | 35 (H) | 6 - 20 mg/dL | [facility] | | | (LAB) | | | LABORATORY | | | | | | SERVICES, | | | | | | CORE | | + + + + + + | CREATININE | 1.88 (H) | 0.60 - 1.10 | [facility] | | | PLASMA | | mg/dL | LABORATORY | | | (LAB) | | | SERVICES, | | | | | | CORE | | + + + + + + | EGFR | 33 (L) | >60 mL/min | [facility] | | | - | | | LABORATORY | | | [facility] | | | SERVICES, | | | | | | CORE | | + + + + + + | EGFR NON | 28 (L) | >60 mL/min | [facility] | [...] + + + + | POTASSIUM, | 5.1 (H) | 3.4 - 5.0 | [facility] [...] + + + + | BUN/CREATIN | 19 | 8 - 25 | [facility] | [...] | + + + + + | [facility] | [address] | [place] [address] | | | SERVICES, CORE | [address] | | | + + + + + CT HEAD WO CONTRAST (08/27/2019 6:17 AM PST) + + | Specimen | + + | | + + + + + | Narrative | Performed At | + + + | EXAM: CT HEAD WITHOUT CONTRAST HISTORY: renal cell carcinoma, | [facility] | | concern for mets, COMPARISON: None. TECHNIQUE: CT of the | RADIOLOGY VOICE | | head without intravenous contrast. FINDINGS: BRAIN: No acute | RECOGNITION 2 | | intracranial abnormality. No evidence of hemorrhage, mass, or acute | | | territorial infarction. The ventricles are normal in size and | | | morphology. SOFT TISSUES: Unremarkable. SKULL AND SKULL BASE: No | | | fractures or destructive lesions. Mastoids and middle ears are | | | unremarkable. FACE/ORBITS: Visualized portions are unremarkable. | | | PARANASAL SINUSES: Visualized portions are unremarkable. | | | IMPRESSION: No acute intracranial abnormality. I have | | | personally reviewed the images and, if necessary, edited the report. I | | | agree with the report as now presented. Final signature: Franky | | | MD Lee 08/27/2019 9:57 AM Preliminary: Darby Larson DO | | | Dictation initiated: Darby Larson DO 08/27/2019 7:06 AM | | + + + + + | Procedure Note | + + | Service Account, Radiant Res In Interface - 08/27/2019 9:58 AM PST EXAM: CT HEAD | | WITHOUT CONTRAST HISTORY: renal cell carcinoma, concern for mets, COMPARISON: None. | | TECHNIQUE: CT of the head without intravenous contrast. FINDINGS: BRAIN: No acute | | intracranial abnormality. No evidence of hemorrhage, mass, or acute territorial | | infarction. The ventricles are normal in size and morphology. SOFT TISSUES: | | Unremarkable.SKULL AND SKULL BASE: No fractures or destructive lesions. Mastoids and | | middle ears are unremarkable.FACE/ORBITS: Visualized portions are unremarkable.PARANASAL | | SINUSES: Visualized portions are unremarkable. IMPRESSION: No acute intracranial | | abnormality. I have personally reviewed the images and, if necessary, edited the report. | | I agree with the report as now presented. Final signature: Franky Howard MD | | 08/27/2019 9:57 AM Preliminary: Darby Larson DO Dictation initiated: Darby Larson DO 08/27/2019 7:06 AM | |SOFT TISSUES: Unremarkable. | |SKULL AND SKULL BASE: No fractures or destructive lesions. Mastoids and middle ears are unr emarkable. | |FACE/ORBITS: Visualized portions are unremarkable. | |PARANASAL SINUSES: Visualized portions are unremarkable. | | | |IMPRESSION: | | | |No acute intracranial abnormality. | | | |I have personally reviewed the images and, if necessary, edited the report. I agree with th e report as now presented. | | | |Final signature: Franky Howard MD 08/27/2019 9:57 AM | |Preliminary: Darby Larson DO | |Dictation initiated: Darby Larson DO 08/27/2019 7:06 AM | + + + +---------+ + + | Performing | Address | City/State/Zipcode | Phone Number | | Organization | | | | + +---------+ + + | [facility] | | | | | VOICE RECOGNITION 2 | | | | + +---------+ + + RBC MORPHOLOGY (08/27/2019 4:37 AM PST) + + | Specimen | + + | Blood - Blood | | (substance) | + + + + + + + | Performing | Address | City/State/Zipcode | Phone Number | | Organization | | | | + + + + + | [facility] | [address] | [place] [address] | | | SERVICES, CORE | [address] | | | + + + + + CBC AND AUTO DIFF (08/27/2019 4:37 AM PST) + + + + + + | Component | Value | Ref Range | Performed | Pathologist | | | | | At | Signature | + + + + + + | WHITE CELL | 2.99 (L) | 3.50 - 10.80 | [facility] | | | COUNT | | K/cu mm | LABORATORY | | | | | | SERVICES, | | | | | | CORE | | + + + + + + | RED CELL | 3.63 (L) | 4.00 - 5.20 | [facility] | | | COUNT | | M/cu mm | LABORATORY | | | | | | SERVICES, | | | | | | CORE | | + + + + + + | HEMOGLOBIN | 9.6 (L) | 12.0 - 16.0 | [facility] | | | | | g/dL | LABORATORY | | | | | | SERVICES, | | | | | | CORE | | + + + + + + | HEMATOCRIT | 32.8 (L) | 36.0 - 46.0 % | [facility] | | | | | | LABORATORY | | | | | | SERVICES, | | | | | | CORE | | + + + + + + | MCV | 90.4 | 80.0 - 100.0 fL | [facility] | | | | | | LABORATORY | | | | | | SERVICES, | | | | | | CORE | | + + + + + + | MCHC | 29.3 (L) | 32.0 - 36.0 | [facility] | | | | | g/dL | LABORATORY | | | | | | SERVICES, | | | | | | CORE | | + + + + + + | RDW SD | 50.8 (H) | 35.1 - 46.3 fL | [facility] | | | | | | LABORATORY | | | | | | SERVICES, | | | | | | CORE | | + + + + + + | PLATELET | 134 (L)Comment: Few | 150 - 400 K/cu | [facility] | | | COUNT | platelet clumps present. | mm | LABORATORY | | | | | | SERVICES, | | | | | | CORE | | + + + + + + | MPV | 8.9 (L) | 9.7 - 12.3 fL | [...] + + + + | LYMPHOCYTE | 19.1 | 18.0 - 42.0 % | [facility] | | | % | | | LABORATORY | | | | | | SERVICES, | | | | | | CORE | | + + + + + + | MONOCYTE % | 9.7 (H) | 3.5 - 9.0 % | [facility] | | | | | | LABORATORY | | | | | | SERVICES, | | | | | | CORE | | + + + + + + | EOS % | 0.7 (L) | 1.0 - 3.0 % | [...] + + + + | IG% | 0.7 | 0.0 - 1.0 % | [facility] | | | | | | LABORATORY | | | | | | SERVICES, | | | | | | CORE | | + + + + + + | NEUTROPHIL | 2.08 | 1.80 - 7.70 | [facility] | | | # | | K/cu mm | LABORATORY | | | | | | SERVICES, | | | | | | CORE | | + + + + + + | LYMPHOCYTE | 0.57 (L) | 1.00 - 4.80 | [facility] | | | # | | K/cu mm | LABORATORY | | | | | | SERVICES, | | | | | | CORE | | + + + + + + | MONOCYTE # | 0.29 | 0.10 - 0.90 | [facility] | [...] | + + + + + | [facility] | [address] | [place] [address] | | | SERVICES, CORE | [address] | | | + + + + + PHOSPHORUS, PLASMA (08/27/2019 4:36 AM PST) + +-------+ + + + | Component | Value | Ref Range | Performed | Pathologist | | | | | At | Signature | + +-------+ + + + | PHOSPHORUS, | 3.2 | 2.4 - 4.7 mg/dL | [facility] | | | PLASMA [...] | + + + + + | [facility] | [address] | [place] [address] | | | SERVICES, CORE | [address] | | | + + + + + BASIC METABOLIC SET (NA, K, CL, TCO2, BUN, CR, GLU, CA) (08/27/2019 4:36 AM PST) + + + + + + | Component | Value | Ref Range | Performed | Pathologist | | | | | At | Signature | + + + + + + | GLUCOSE, | 102 (H) | 70 - 99 mg/dL | [facility] | | | PLASMA | | | LABORATORY | | | (LAB) | | | SERVICES, | | | | | | CORE | | + + + + + + | BUN, PLASMA | 31 (H) | 6 - 20 mg/dL | [facility] | | | (LAB) | | | LABORATORY | | | | | | SERVICES, | | | | | | CORE | | + + + + + + | CREATININE | 2.01 (H) | 0.60 - 1.10 | [facility] | | | PLASMA | | mg/dL | LABORATORY | | | (LAB) | | | SERVICES, | | | | | | CORE | | + + + + + + | EGFR | 31 (L) | >60 mL/min | [facility] | | | - | | | LABORATORY | | | [facility] | | | SERVICES, | | | | | | CORE | | + + + + + + | EGFR NON | 26 (L) | >60 mL/min | [facility] | | | -LISA | | | LABORATORY | | | RICAN | | | SERVICES, | | | | | | CORE | | + + + + + + | SODIUM, | 139 | 136 - 145 | [facility] | [...] + + + + | CALCIUM, | 9.2 | 8.6 - 10.2 | [facility] | [...] + + + + | BUN/CREATIN | 15 | 8 - 25 | [facility] | [...] | + + + + + | [id number] | [address] | [place] [address] | | | [address] | [address] | | | + + + + + CALCIUM, IONIZED, WHOLE BLOOD (08/27/2019 4:36 AM PST) + + + + + + | Component | Value | Ref Range | Performed | Pathologist | | | | | At | Signature | + + + + + + | YASMANI ICA, | 1.35 (H) | 1.14 - 1.32 | [facility] | | | WHOLE BLD | | mmol/L | LABORATORY | | | | | | SERVICES, | | | | | | CORE | | + + + + + + | PH, WHOLE | 7.31 | | [facility] | | | BLOOD | | | LABORATORY | | | | | | SERVICES, | | | | | | CORE | | + + + + + + | ICA, | 1.28 | 1.14 - 1.28 | [facility] | | | CORRECTED | | mmol/L | LABORATORY | | | TO PH 7.4 | | | SERVICES, | | | | | | CORE | | + + + + + + + + | Specimen | + + | Blood - Blood | | (substance) | + + + + + + + | Performing | Address | City/State/Zipcode | Phone Number | | Organization | | | | + + + + + | [facility] | [address] | [place] [address] | | | SERVICES, CORE | [address] | | | + + + + + BASIC METABOLIC SET (NA, K, CL, TCO2, BUN, CR, GLU, CA) (08/27/2019 12:05 AM PST) + + + + + + | Component | Value | Ref Range | Performed | Pathologist | | | | | At | Signature | + + + + + + | GLUCOSE, | 106 (H) | 70 - 99 mg/dL | [facility] | | | PLASMA | | | LABORATORY | | | (LAB) | | | SERVICES, | | | | | | CORE | | + + + + + + | BUN, PLASMA | 34 (H) | 6 - 20 mg/dL | [facility] | | | (LAB) | | | LABORATORY | | | | | | SERVICES, | | | | | | CORE | | + + + + + + | CREATININE | 2.06 (H) | 0.60 - 1.10 | [facility] | | | PLASMA | | mg/dL | LABORATORY | | | (LAB) | | | SERVICES, | | | | | | CORE | | + + + + + + | EGFR | 30 (L) | >60 mL/min | [facility] | | | - | | | LABORATORY | | | [facility] | | | SERVICES, | | | [...] + + + + | SODIUM, | 140 [...] + + + + | CALCIUM, | 9.3 | 8.6 - 10.2 | [facility] | [...] | + + + + + | [facility] | [address] | [place] [address] | | | SERVICES, [place] | [address] | | | + + + + + BASIC METABOLIC SET (NA, K, CL, TCO2, BUN, CR, GLU, CA) (08/26/2019 5:23 PM PST) + + + + + + | Component | Value | Ref Range | Performed | Pathologist | | | | | At | Signature | + + + + + + | GLUCOSE, | 117 (H) | 70 - 99 mg/dL | [facility] | | | PLASMA | | | LABORATORY | | | (LAB) | | | SERVICES, | | | | | | CORE | | + + + + + + | BUN, PLASMA | 32 (H) | 6 - 20 mg/dL | [facility] | | | (LAB) | | | LABORATORY | | | | | | SERVICES, | | | | | | CORE | | + + + + + + | CREATININE | 1.82 (H) | 0.60 - 1.10 | [facility] | | | PLASMA | | mg/dL | LABORATORY | | | (LAB) | | | SERVICES, | | | | | | CORE | | + + + + + + | EGFR | 35 (L) | >60 mL/min | [facility] | | | - | | | LABORATORY | | | [facility] | | | SERVICES, | | | | | | CORE | | + + + + + + | EGFR NON | 29 (L) | >60 mL/min | [...] + + + + | CALCIUM, | 9.6 | 8.6 - 10.2 | [...] | + + + + + | [facility] | [address] | [place] [address] | | | [place] | [address] | | | + + + + + PHOSPHORUS, PLASMA (08/26/2019 10:32 AM PST) + +---------+ + + + | Component | Value | Ref Range | Performed | Pathologist | | | | | At | Signature | + +---------+ + + + | PHOSPHORUS, | 2.1 (L) | 2.4 - 4.7 mg/dL | [facility] | | | PLASMA [...] [facility] | [address] | [place] [address] | | | SERVICES, CORE | [address] | | | + + + + + BASIC METABOLIC SET (NA, K, CL, TCO2, BUN, CR, GLU, CA) (08/26/2019 10:32 AM PST) + + + + + [...] + + + | BUN, PLASMA | 29 (H) | 6 - 20 mg/dL | [facility] | | | (LAB) | | | LABORATORY | | | | | | SERVICES, | | | | | | CORE | | + + + + + + | CREATININE | 1.79 (H) | 0.60 - 1.10 | [facility] | | | PLASMA | | mg/dL | LABORATORY | | | (LAB) | | | SERVICES, | | | | | | CORE | | + + + + + + | EGFR | 35 (L) | >60 mL/min | [facility] | | | - | | | LABORATORY | | | [facility] | | | SERVICES, | | | | | | CORE | | + + + + + + | EGFR NON | 29 (L) | >60 mL/min | [...] + + + + | CALCIUM, | 9.7 | 8.6 - 10.2 | [...] + + + + | BUN/CREATIN | 16 [...] | + + + + + | [facility] | [address] | [place] [address] | | | SERVICES, CORE | [address] | | | + + + + + BLOOD GASES, VENOUS - LAB (08/26/2019 10:20 AM PST) + + + + + + | Component | Value | Ref Range | Performed | Pathologist | | | | | At | Signature | + + + + + + | PH VENOUS | 7.29 (L) | 7.35 - 7.45 | [facility] | | | | | | LABORATORY | | | | | | MICHELLE, | | | | | | CORE | | + + + + + + | PCO2 VENOUS | 42 | 35 - 50 mmHg | [facility] | | | | | | LABORATORY | | | | | | SERVICES, | | | | | | CORE | | + + + + + + | PO2 VENOUS | 35 | 30 - 55 mmHg | [facility] | | | | | | LABORATORY | | | | | | SERVICES, | | | | | | CORE | | + + + + + + | HCO3 VENOUS | 20 (L) | 22 - 28 mmol/L | [facility] | | | | | | LABORATORY | | | | | | SERVICES, | | | | | | CORE | | + + + + + + | BASE EXCESS | -5.9 (L) | -3.0 - 3.0 | [facility] | | | VENOUS | | mmol/L | LABORATORY | | | | | | SERVICES, | | | | | | CORE | | + + + + + + | O2 SAT, | 65.1 | No range has | [facility] | | | VENOUS | | been | LABORATORY | | | | | established % | SERVICES, | | | | | | CORE | | + + + + + + | TOTAL CO2 | 21 (L) | 23 - 29 mmol/L | [facility] | | | VENOUS | | | LABORATORY | | | [...] [facility] | [address] | [place] [address] | | | SERVICES, CORE | [address] | | | + + + + + BLOOD GASES, ARTERIAL - LAB (08/26/2019 10:20 AM PST) + + + + + + | Component | Value | Ref Range | Performed | Pathologist | | | | | At | Signature | + + + + + + | FIO2 | 0.21 | | [facility] | | | ARTERIAL | | | LABORATORY | | | | | | SERVICES, | | | | | | CORE | | + + + + + + | PH ARTERIAL | 7.33 (L) | 7.37 - 7.44 | [facility] | | | | | | LABORATORY | | | | | | SERVICES, | | | | | | CORE | | + + + + + + | PCO2 | 34 | 32 - 43 mmHg | [facility] | | | ARTERIAL | | | LABORATORY | | | | | | SERVICES, | | | | | | CORE | | + + + + + + | PO2 | 88 | 72 - 104 mmHg | [facility] | | | ARTERIAL | | | LABORATORY | | | | | | SERVICES, | | | | | | CORE | | + + + + + + | HCO3 | 18 (L) | 21 - 28 mmol/L | [facility] | | | ARTERIAL | | | LABORATORY | | | | | | SERVICES, | | | | | | CORE | | + + + + + + | TOTAL CO2 | 19 (L) | 22 - 28 mmol/L | [facility] | | | ARTERIAL | | | LABORATORY | | | | | | SERVICES, | | | | | | CORE | | + + + + + + | BASE EXCESS | -7.0 (L) | -2.0 - 2.0 | [facility] | | | ARTERIAL | | mmol/L | LABORATORY | | | | | | SERVICES, | | | | | | CORE | | + + + + + + | O2 SAT, | 97.2 | 92.0 - 98.0 % | [facility] | | | ARTERIAL | | | LABORATORY | | | | | | SERVICES, | | | | | | CORE | | + + + + + + | PAO2/FIO2 | 419 | >300 mmHg | [facility] | | | RATIO | | | LABORATORY | | | | | | SERVICES, | | | | | | CORE | | + + + + + + | PAT TEMP | 37.2 | Degree C | [facility] | | | ARTERIAL | | | LABORATORY | | | [...] | + + + + + | [facility] | [address] | [place] [address] | | | SERVICES, CORE | [address] | | | + + + + + CAPILLARY BLOOD GLUCOSE (NO CHG), POC (08/26/2019 10:16 AM PST) + +-------+ + + + | Component | Value | Ref Range | Performed | Pathologist | | | | | At | Signature | + +-------+ + + + | BLOOD | 81 | 70 - 99 mg/dL | [facility] - | | | GLUCOSE, [...] + + + | JEANETTE FRENCH | [address] | [place], [place] | | | [facility] | [address] | [address] | | | TESTS | | | | + + + + + TRANSTHORACIC ECHOCARDIOGRAM, ADULT (08/26/2019 7:53 AM PST) + + + + + [...] + + + + | LA | 3.8 | | [facility] | | | DIMENSION | | | OF | | | | | | CARDIOLOGY | | + + + + + + | LVIDD | 5.0 | | [facility] | | | | | | OF | | | | | | CARDIOLOGY | | + + + + + + | MV A VMAX | 0.9 | | [facility] | | | | | | OF | | | | | | CARDIOLOGY | | + + + + + + | MV E? | 0.1 | | [facility] | | | | | | OF | | | | | | CARDIOLOGY | | + + + + + + | MV E VMAX | 0.8 | | [facility] | | | | | | OF | | | | | | CARDIOLOGY | | + + + + + + | MV E/E' | 5.9 | | [facility] | | | (MITRAL | | | OF | | | VALVE) | | | CARDIOLOGY | | + + + + + + | MITRAL | 7.7 | | [facility] | | | ANNULUS | | | OF | | | MEDIAL E/E" | | | CARDIOLOGY | | | (TISSUE | | | | | | DOPPLER) | | | | | + + + + + + | RVSP | 76 | | [facility] | | | | | | OF | | | | | | CARDIOLOGY | | + + + + + + | RV TAPSE | 1.9 | | [facility] | | | | | | OF | | | | | | CARDIOLOGY | | + + + + + + | RV TDI S? | 14.0 | | [facility] | | | | | | OF | | | | | | CARDIOLOGY | | + + + + + + | TR VMAX | 4.1 | | [facility] | | | [...] | + ----+ + | [facility] | [facility]PT OF | | [facility] Adult Echocardiography Laboratory [address] | CARDIOLOGY | | [place] [address] Ph: | | | Pt Name: HANK ALTMAN | | | Study Date/Time 08/26/2019 / 7:53:21 AMMRN: [id number] | | | Most recent prior: -Acc #: [id number] | | | No. previous echos: 0DOB: 1965 54 years Heart | | | Rate: 99 bpmHeight: 62.0 in Blood | | | Pressure: 105/67 mm/HgWeight: 225.5 lb | | | Gender: FBSA: 2.01 m | | | Order ID: [id number] Study | | | Location: Sonographer: Dwaine Keys RDCS, AE | | | Provider: YUNIER Leonard Performed: 2D, Color flow, Spectral | | | Doppler.Study Quality: Good.Exam Indication: Hypotension/Volume | | | statusHistory: 54 y.o. woman w/ h/o Hodgkin's lymphoma s/p | | | CHOP/radiation and recent diagnosis of RCC w/ metastasis who is | | | admitted to the MICU for hypotension despite IVF resuscitation. | | | Patient history has been obtained from the EHR Transthoracic | | | Echocardiographic Report | | | + | | | ---------+ Final Impressions: | | | | | | | | | | | | | | | 1. The left ventricular size is normal. | | | 2. The LV function is | | | normal. | | | 3. RV cavity size is mildly enlarged. RV wall thickness | | | is mildly increased. RV global systolic function is normal. The | | | estimated right ventricular systolic pressure is severely | | | elevated (RVSP = 75.9 mmHg). 4. Mild | | | aortic regurgitation. | | | 5. Mild-moderate tricuspid regurgitation. | | | 6. The | | | tricuspid valve is thickened. No mobile echodensities are seen. | | | 7. There are no prior exams available for comparison. | | | | | | | | | | | | + | | | + Description of Findings: Cardiac Rhythm: Normal sinus | | | rhythm.Left Ventricle: The left ventricular size is normal. Visually | | | estimated left ventricular ejection fraction is 65 - 70%. There is no | | | left ventricular hypertrophy. The interventricular septum is flattened | | | in systole and diastole consistent with right ventricular pressure | | | and volume overload. The ejection fraction is 67.1 % as measured by | | | Acosta's biplane method. The LV function is normal.Left Ventricular | | | Wall Motion: Left ventricular systolic thickening is normal in all | | | segments.Atria: Left atrial size is normal. Normal right atrium.Right | | | Ventricle: Right ventricular cavity size is mildly enlarged. RV wall | | | thickness is mildly increased. The RV global systolic function is | | | normal. Prominent RV moderator band. TAPSE measures 1.9cm. The RV TDI | | | s' velocity is 14cm/sec.Aortic Valve: The aortic valve is trileaflet | | | and mildly sclerotic. Mild aortic valve regurgitation.Mitral Valve: No | | | evidence of mitral valve stenosis. Trace mitral valve regurgitation. | | | The mitral valve is mildly thickened/calcified.Tricuspid Valve: The | | | tricuspid valve is thickened. No mobile echodensities are seen. | | | Mild-moderate tricuspid regurgitation. The tricuspid regurgitant | | | velocity is 4.12 m/s, and with an assumed right atrial pressure of 8 | | | mmHg, the estimated right ventricular systolic pressure is severely | | | elevated at 75.9 mmHg.Pulmonic Valve: The pulmonic valve is | | | structurally normal. Trace pulmonary valve regurgitation.Aorta: | | | Visualized portions of the ascending aorta and aortic root appear | | | normal.Venous: The inferior vena cava was normal sized, with | | | respiratory size variation less than 50%.Pericardium: No pericardial | | | effusion is seen. Additional Findings: There are no prior exams.2D | | | Measurements Doppler Measurements | | | 2D NL Values Aortic MitralLVID(d) 4.96 | | | (3.5-5.7cm) Max Rakesh 2.15 Peak E 0.77 cm | | | m/s | | | m/sLVID(s) 3.11 Mean grad 10.0 Peak A | | | 0.91 cm | | | mmHg m/sIVS(d) 0.89 (0.6-1.1cm) LVOT Rakesh | | | 1.24 E/A Ratio 0.84 cm | | | m/sLVPW(d) 0.93 (0.6-1.1cm) LVOT VTI 0.219 | | | TDI (E/e') 5.9 cm | | | mLA A/Ps 2D 3.80 (2.7-3.9cm) LVOT Diam 2.30 MV mn gd | | | cm cmLA vol A/L 30.6 | | | (16-34) LVOT SV 45.2 MR EROindex ml/m | | | indexed ml/m | | | LA vol MOD 58.6 (40-73ml) AI P1/2 330 MR VolumeBP | | | ml time msecLA vol MOD 29.1 | | | (16-34) Tricuspid Pulmonicindex ml/m | | | TR Vmax 4.12 PV Vmax 1.2LVEDV | | | 39.35 m/s | | | m/sindex ml/m | | | RA Press 8 RVOT VTIBiplane EF 67.1 % | | | mmHg | | | RVSP 76 PV mn gd | | | mmHg | | | Aorta: Index: | | | Ao Sinus 3.50 (2.1-3.5cm) 17.4 | | | cm | | | mm/m | | | Asc Ao 3.60 | | | 17.9 (prox) | | | cm mm/m | | | Evaluation of chamber size and geometry is accomplished through the | | | incorporation of linear, volumetric, and indexed values Report | | | electronically signed by: [id number] Eliana An MD (08/26/2019, | | | 11:24:45 AM) Final | | | cm mm/m | | | Asc Ao 3.60 17.9 | | | (prox) cm mm/m | | |Evaluation of chamber size and geometry is accomplished through the incorporation of | | |linear, volumetric, and indexed values | | | | | |Report electronically signed by: [id number] Eliana An MD (08/26/2019, 11:24:45 AM) | | | | | | | | | | | | Final | | + ----+ + + + | Procedure Note | + + | Interface, Cardiology Results - 08/26/2019 11:24 AM [facility] | | [facility] Echocardiography Laboratory [facility] | | [place], [place] [address] Pt Name: HANK MONCADA | | [facility] Study Date/Time 08/26/2019 / 7:53:21 AMMRN: [id number] Most | | recent prior: -Acc #: [id number] No. previous echos: 0DOB: 1965 | | 54 years Heart Rate: 99 bpmHeight: 62.0 in Blood Pressure: | | 105/67 mm/HgWeight: 225.5 lb Gender: FBSA: 2.01 m | | Order ID: [id number] Study Location: Sonographer: Terri | | [facility] [place] Provider: YUNIER Leonard Performed: 2D, Color | | flow, Spectral Doppler.Study Quality: Good.Exam Indication: Hypotension/Volume | | statusHistory: 54 y.o. woman w/ h/o Hodgkin's lymphoma s/p CHOP/radiation and recent | | diagnosis of RCC w/ metastasis who is admitted to the MICU for hypotension despite IVF | | resuscitation. Patient history has been obtained from the EHR Transthoracic | | Echocardiographic | | Report+ + | | Final Impressions: | | | | 1. The left ventricular | | size is normal. 2. The LV function is normal. | | 3. RV cavity size is mildly enlarged. RV | | wall thickness is mildly increased. RV global systolic function is normal. The | | estimated right ventricular systolic pressure is severely elevated (RVSP = 75.9 | | mmHg). 4. Mild aortic regurgitation. | | 5. Mild-moderate tricuspid regurgitation. | | 6. The tricuspid valve is thickened. No mobile echodensities are seen. | | 7. There are no prior exams available for comparison. | | | | + + | | Description of Findings: Cardiac Rhythm: Normal sinus rhythm.Left Ventricle: The left | | ventricular size is normal. Visually estimated left ventricular ejection fraction is 65 | | - 70%. There is no left ventricular hypertrophy. The interventricular septum is | | flattened in systole and diastole consistent with right ventricular pressure and volume | | overload. The ejection fraction is 67.1 % as measured by Acosta's biplane method. The | | LV function is normal.Left Ventricular Wall Motion: Left ventricular systolic thickening | | is normal in all segments.Atria: Left atrial size is normal. Normal right atrium.Right | | Ventricle: Right ventricular cavity size is mildly enlarged. RV wall thickness is mildly | | increased. The RV global systolic function is normal. Prominent RV moderator band. | | TAPSE measures 1.9cm. The RV TDI s' velocity is 14cm/sec.Aortic Valve: The aortic valve | | is trileaflet and mildly sclerotic. Mild aortic valve regurgitation.Mitral Valve: No | | evidence of mitral valve stenosis. Trace mitral valve regurgitation. The mitral valve is | | mildly thickened/calcified.Tricuspid Valve: The tricuspid valve is thickened. No mobile | | echodensities are seen. Mild-moderate tricuspid regurgitation. The tricuspid | | regurgitant velocity is 4.12 m/s, and with an assumed right atrial pressure of 8 mmHg, | | the estimated right ventricular systolic pressure is severely elevated at 75.9 | | mmHg.Pulmonic Valve: The pulmonic valve is structurally normal. Trace pulmonary valve | | regurgitation.Aorta: Visualized portions of the ascending aorta and aortic root appear | | normal.Venous: The inferior vena cava was normal sized, with respiratory size variation | | less than 50%.Pericardium: No pericardial effusion is seen. Additional Findings: There | | are no prior exams.2D Measurements Doppler Measurements 2D | | NL Values Aortic MitralLVID(d) 4.96 (3.5-5.7cm) Max Rakesh 2.15 Peak E | | 0.77 cm m/s m/sLVID(s) 3.11 | | Mean grad 10.0 Peak A 0.91 cm mmHg | | m/sIVS(d) 0.89 (0.6-1.1cm) LVOT Rakesh 1.24 E/A Ratio 0.84 | | cm m/sLVPW(d) 0.93 (0.6-1.1cm) LVOT VTI 0.219 TDI | | (E/e') 5.9 cm mLA A/Ps 2D 3.80 (2.7-3.9cm) LVOT | | Diam 2.30 MV mn gd cm cmLA vol A/L 30.6 (16-34) | | LVOT SV 45.2 MR EROindex ml/m | | indexed ml/m | | LA vol MOD 58.6 (40-73ml) AI P1/2 330 MR VolumeBP ml | | time msecLA vol MOD 29.1 (16-34) Tricuspid Pulmonicindex ml/m | | TR Vmax 4.12 PV Vmax 1.2LVEDV 39.35 | | m/s m/sindex ml/m | | RA Press 8 RVOT VTIBiplane EF 67.1 % mmHg | | RVSP 76 PV mn gd | | mmHg Aorta: Index: | | Ao Sinus 3.50 (2.1-3.5cm) 17.4 cm | | mm/m | | Asc Ao 3.60 17.9 | | (prox) cm mm/m | | Evaluation of chamber size and geometry is accomplished through the incorporation of | | linear, volumetric, and indexed values Report electronically signed by: [id number] | | Eliana An MD (08/26/2019, 11:24:45 AM) Final | |Pericardium: No pericardial effusion is seen. | | | |Additional Findings: There are no prior exams. | |2D Measurements Doppler Measurements | | | | 2D NL Values Aortic Mitral | |LVID(d) 4.96 (3.5-5.7cm) Max Rakesh 2.15 Peak E 0.77 | | cm m/s m/s | |LVID(s) 3.11 Mean grad 10.0 Peak A 0.91 | | cm mmHg m/s | |IVS(d) 0.89 (0.6-1.1cm) LVOT Rakesh 1.24 E/A Ratio 0.84 | | cm m/s | |LVPW(d) 0.93 (0.6-1.1cm) LVOT VTI 0.219 TDI (E/e') 5.9 | | cm m | |LA A/Ps 2D 3.80 (2.7-3.9cm) LVOT Diam 2.30 MV mn gd | | cm cm | |LA vol A/L 30.6 (16-34) LVOT SV 45.2 MR ERO | |index ml/m indexed ml/m | |LA vol MOD 58.6 (40-73ml) AI P1/2 330 MR Volume | |BP ml time msec | |LA vol MOD 29.1 (16-34) Tricuspid Pulmonic | |index ml/m TR Vmax 4.12 PV Vmax 1.2 | |LVEDV 39.35 m/s m/s | |index ml/m RA Press 8 RVOT VTI | |Biplane EF 67.1 % mmHg | | RVSP 76 PV mn gd | | mmHg | | | | Aorta: Index: | | Ao Sinus 3.50 (2.1-3.5cm) 17.4 | | cm mm/m | | Asc Ao 3.60 17.9 | | (prox) cm mm/m | |Evaluation of chamber size and geometry is accomplished through the incorporation of | |linear, volumetric, and indexed values | | | |Report electronically signed by: [id number] Eliana An MD (08/26/2019, 11:24:45 AM) | | | | | | | | Final | + + + + + + + | Performing | Address | City/State/Zipcode | Phone Number | | Organization | | | | + + + + + | [facility] | [address] | [place], [place] | | | CARDIOLOGY | [address] | [address] | | + + + + + X-RAY PORTABLE CHEST 1 VIEW (08/26/2019 5:25 AM PST) + + | Specimen | + + | | + + + + + | Narrative | Performed At | + + + | EXAM: [place] CHEST 1 VIEW HISTORY: confirm central line placement | [facility] | | COMPARISON: Correlation with CT from 08/23/2019 FINDINGS: | RADIOLOGY VOICE | | Right internal jugular central venous catheter in the region of the | RECOGNITION 2 | | superior cavoatrial junction. No pneumothorax demonstrated. Lung | | | volumes are small with mild bibasilar atelectasis. No pleural effusion | | | or pulmonary edema. No new focal area of consolidation. Extensive | | | calcified lymph nodes seen in the mediastinum likely related to remote | | | to treatment for Hodgkin's lymphoma. The cardiomediastinal silhouette | | | is stable in appearance. No new acute osseous abnormality. | | | IMPRESSION: Right internal jugular central venous catheter with | | | tip in the region of the superior cavoatrial junction. No | | | pneumothorax. Small lung volumes with bibasilar atelectasis. I | | | have personally reviewed the images and, if necessary, edited the | | | report. I agree with the report as now presented. Final | | | signature: Charlene Dinh MD 08/26/2019 8:10 AM Preliminary: Charlene Leal | | MD Fabrizio Dictation initiated: Charlene Dinh MD 08/26/2019 | | | 8:08 AM | | + + + + + | Procedure Note | + + | Service [place], Radiant Res In Interface - 08/26/2019 8:11 AM PST EXAM: IL CHEST 1 | | VIEW HISTORY: confirm central line placement COMPARISON: Correlation with CT from | | 08/23/2019 FINDINGS: Right internal jugular central venous catheter in the region of the | | superior cavoatrial junction. No pneumothorax demonstrated. Lung volumes are small with | | mild bibasilar atelectasis. No pleural effusion or pulmonary edema. No new focal area | | of consolidation. Extensive calcified lymph nodes seen in the mediastinum likely related | | to remote to treatment for Hodgkin's lymphoma. The cardiomediastinal silhouette is | | stable in appearance. No new acute osseous abnormality. IMPRESSION: Right internal | | jugular central venous catheter with tip in the region of the superior cavoatrial | | junction. No pneumothorax. Small lung volumes with bibasilar atelectasis. I have | | personally reviewed the images and, if necessary, edited the report. I agree with the | | report as now presented. Final signature: Charlene Dinh MD 08/26/2019 8:10 AM | | Preliminary: Charlene Dinh MD Dictation initiated: Charlene Dinh MD 08/26/2019 8:08 | | AM | | | |IMPRESSION: | | | |Right internal jugular central venous catheter with tip in the region of the superior cavoa trial junction. No pneumothorax. | | | |Small lung volumes with bibasilar atelectasis. | | | |I have personally reviewed the images and, if necessary, edited the report. I agree with th e report as now presented. | | | |Final signature: Charlene Dinh MD 08/26/2019 8:10 AM | |Preliminary: Charlene Dinh MD | |Dictation initiated: Charlene Dinh MD 08/26/2019 8:08 AM | + + + +---------+ + + | Performing | Address | City/State/Zipcode | Phone Number | | Organization | | | | + +---------+ + + | [facility] | | | | | VOICE RECOGNITION 2 | | | | + +---------+ + + PTH RELATED PEPTIDE, PLASMA (08/26/2019 5:18 AM PST) + + + + + + | Component | Value | Ref Range | Performed | Pathologist | | | | | At | Signature | + + + + + + | PTH-REL | 40.7 (H)Comment: | 0.0 - 3.4 | [facility] | | | PEPTIDE | INTERPRETIVE | pmol/L | REG UNIV | | | (PTHRP) | INFORMATION: Parathyroid | | PTH - INTFC | | | | Hormone-Related Peptide | | | | | | Test developed and | | | | | | characteristics | | | | | | determined by [facility] | | | | | | Laboratories. See | | | | | | Compliance Statement B: | | | | | | [employer]/CSPerformed | | | | | | by [employer],[address] | | | | | | [address] [facility],[place] | | | | | | [address] | | | | | | [phone].[employer]. | | | | | | com, Denis Pitts MD, | | | | [...] [facility] | [address] | [place], [place] | | | UNIV PTH - INTFC | | [address] | | + + + + + CAPILLARY BLOOD GLUCOSE (NO CHG), POC (08/26/2019 5:16 AM PST) + +-------+ + + + [...] [facility] | [address] | [place], [place] | | | [facility] | [address] | [address] | | | TESTS | | | | + + + + + CBC AND AUTO DIFF (08/26/2019 4:21 AM PST) + + + + + + | Component | Value | Ref Range | Performed | Pathologist | | | | | At | Signature | + + + + + + | WHITE CELL | 2.82 (L) | 3.50 - 10.80 | [facility] | | | COUNT | | K/cu mm | LABORATORY | | | | | | SERVICES, | | | | | | CORE | | + + + + + + | RED CELL | 3.52 (L) | 4.00 - 5.20 | [facility] | | | COUNT | | M/cu mm | LABORATORY | | | | | | SERVICES, | | | | | | CORE | | + + + + + + | HEMOGLOBIN | 9.6 (L) | 12.0 - 16.0 | [facility] | | | | | g/dL | LABORATORY | | | | | | SERVICES, | | | | | | CORE | | + + + + + + | HEMATOCRIT | 32.2 (L) | 36.0 - 46.0 % | [facility] | | | | | | LABORATORY | | | | | | SERVICES, | | | | | | CORE | | + + + + + + | MCV | 91.5 | 80.0 - 100.0 fL | [facility] | | | | | | LABORATORY | | | | | | SERVICES, | | | | | | CORE | | + + + + + + | MCHC | 29.8 (L) | 32.0 - 36.0 | [facility] | | | | | g/dL | LABORATORY | | | | | | SERVICES, | | | | | | CORE | | + + + + + + | RDW SD | 52.4 (H) | 35.1 - 46.3 fL | [facility] | | | | | | LABORATORY | | | | | | SERVICES, | | | | | | CORE | | + + + + + + | PLATELET | 129 (L) | 150 - 400 K/cu | [facility] | | | COUNT | | mm | LABORATORY | | | | | | SERVICES, | | | | | | CORE | | + + + + + + | MPV | 9.0 (L) | 9.7 - 12.3 fL | [...] + + + + | NEUTROPHIL | 79.8 (H) | 50.0 - 70.0 % | [facility] | | | % | | | LABORATORY | | | | | | SERVICES, | | | | | | CORE | | + + + + + + | LYMPHOCYTE | 11.0 (L) | 18.0 - 42.0 % | [facility] | | | % | | | LABORATORY | | | | | | SERVICES, | | | | | | CORE | | + + + + + + | MONOCYTE % | 4.6 | 3.5 - 9.0 % | [facility] | | | | | | LABORATORY | | | | | | SERVICES, | | | | | | CORE | | + + + + + + | EOS % | 3.5 (H) | 1.0 - 3.0 % | [...] + + + + | NEUTROPHIL | 2.25 | 1.80 - 7.70 | [facility] | | | # | | K/cu mm | LABORATORY | | | | | | SERVICES, | | | | | | CORE | | + + + + + + | LYMPHOCYTE | 0.31 (L) | 1.00 - 4.80 | [facility] | | | # | | K/cu mm | LABORATORY | | | | | | SERVICES, | | | | | | CORE | | + + + + + + | MONOCYTE # | 0.13 | 0.10 - 0.90 | [facility] | | | | | K/cu mm | LABORATORY | | | | | | SERVICES, | | | | | | CORE | | + + + + + + | EOS # | 0.10 | 0.00 - 0.50 | [facility] | | | | | K/cu mm | LABORATORY | | | | | | SERVICES, | | | | | | CORE | | + + + + + + | BASO # | 0.02 | 0.00 - 0.10 | [...] | + + + + + | [facility] | [address] | [place] [address] | | | SERVICES, CORE | [address] | | | + + + + + CALCIUM, IONIZED, WHOLE BLOOD (08/26/2019 4:21 AM PST) + + + + + + | Component | Value | Ref Range | Performed | Pathologist | | | | | At | Signature | + + + + + + | YASMANI ICA, | 1.53 (H) | 1.14 - 1.32 | [facility] | | | WHOLE BLD | | mmol/L | LABORATORY | | | | | | SERVICES, | | | | | | CORE | | + + + + + + | PH, WHOLE | 7.27 | | [facility] | | | BLOOD | | | LABORATORY | | | | | | SERVICES, | | | | | | CORE | | + + + + + + | ICA, | 1.42 (H) | 1.14 - 1.28 | [facility] | | | CORRECTED | | mmol/L | LABORATORY | | | TO PH 7.4 | | | SERVICES, | | | | | | CORE | | + + + + + + + + | Specimen | + + | Blood - Blood | | (substance) | + + + + + + + | Performing | Address | City/State/Zipcode | Phone Number | | Organization | | | | + + + + + | [facility] | [address] | [place] [address] | | | SERVICES, CORE | [address] | | | + + + + + LIVER SET (AST,ALT,BILI TOTAL,BILI DIRECT,ALK PHOS,ALB,PROT TOTAL) (08/26/2019 4:20 AM PST ) + +---------+ + + + | Component | Value | Ref Range | Performed | Pathologist | | | | | At | Signature | + +---------+ + + + | ALBUMIN, | 2.4 (L) | 3.5 - 4.7 g/dL | [facility] | | | PLASMA | | | LABORATORY | | | (LAB) | | | SERVICES, | | | | | | CORE | | + +---------+ + + + | BILIRUBIN | 0.7 [...] + + + | ALK PHOS | 83 | 42 - 98 U/L | [facility] | | | | | | LABORATORY | | | | | | SERVICES, | | | | | | CORE | | + +---------+ + + + | AST(SGOT) | 40 | <=41 U/L | [facility] | | | | | | LABORATORY | | | | | | SERVICES, | | | | | | CORE | | + +---------+ + + + | ALT (SGPT) | 17 | <=60 U/L | [facility] | | [...] +---------+ + + + | ALBUMIN/NICOLETTE | 0.7 [...] [facility] | [address] | [place] [address] | | | SERVICES, CORE | [address] | | | + + + + + BASIC METABOLIC SET (NA, K, CL, TCO2, BUN, CR, GLU, CA) (08/26/2019 4:20 AM PST) + + + + + + | Component | Value | Ref Range | Performed | Pathologist | | | | | At | Signature | + + + + + + | GLUCOSE, | 90 | 70 - 99 mg/dL | [facility] | | | PLASMA | | | LABORATORY | | | (LAB) | | | SERVICES, | | | | | | CORE | | + + + + + + | BUN, PLASMA | 32 (H) | 6 - 20 mg/dL | [facility] | | | (LAB) | | | LABORATORY | | | | | | SERVICES, | | | | | | CORE | | + + + + + + | CREATININE | 1.85 (H) | 0.60 - 1.10 | [facility] | | | PLASMA | | mg/dL | LABORATORY | | | (LAB) | | | SERVICES, | | | | | | CORE | | + + + + + + | EGFR | 34 (L) | >60 mL/min | [facility] | | | - | | | LABORATORY | | | ANGOLAN | | | SERVICES, | | | | | | CORE | | + + + + + + | EGFR NON | 28 (L) | >60 mL/min | [facility] | | | -LISA | | | LABORATORY | | | RICAN | | | SERVICES, | | | | | | CORE | | + + + + + + | SODIUM, | 139 | 136 - 145 | [facility] | [...] + + + + | CALCIUM, | 10.1 | 8.6 - 10.2 | [...] + + | [facility] | [address] [facility] | [place] [address] | | | SERVICES, CORE | [address] | | | + + + + + TROPONIN I, PLASMA (08/26/2019 4:20 AM PST) + +-------+ + + + [...] [facility] | [address] | [place] [address] | | | SERVICES, CORE | [address] | | | + + + + + CORTISOL, SERUM (08/26/2019 4:20 AM PST) + +-------+ + + + | Component | Value | Ref Range | Performed | Pathologist | | | | | At | Signature | + +-------+ + + + | CORTISOL, | 10.5 | ug/dL | [facility] | | | [...] | + + + + + | [facility] | [address] | [place] [address] | | | SERVICESDWIGHT | [address] | | | + + + + + VITAMIN D, 25-HYDROXY, SERUM (08/26/2019 4:20 AM PST) + +---------+ + + + | Component | Value | Ref Range | Performed | Pathologist | | | | | At | Signature | + +---------+ + + + | VITAMIN D | 5.6 (L) | 30 - 80 ng/mL | [facility] | | | 25 HYDROXY | | | LABORATORY | | | | | | SERVICES, | | | | | | CORE | | + +---------+ + + + + + | Specimen | + + | Blood - Blood | | (substance) | + + + + + | Narrative | Performed At | + + + | Reference Interval: 0-18years: Deficiency: <20 ng/mL | [facility] | | [facility] level: >or=20 ng/mL | LABORATORY | | >18years: Deficiency: <20 | SERVICES, CORE | | ng/mL Insufficiency: 20-29 ng/mL | | | Optimum Level: 30-80 ng/mL High: | | | 81-150 ng/ml Toxic: >150 ng/mL | | + + + + + + + + | Performing | Address | City/State/Zipcode | Phone Number | | Organization | | | | + + + + + | [facility] | [address] | [place] [address] | | | SERVICES, CORE | [address] | | | + + + + + CAPILLARY BLOOD GLUCOSE (NO CHG), POC (08/26/2019 4:19 AM PST) + +-------+ + + + | Component | Value | Ref Range | Performed | Pathologist | | | | | At | Signature | + +-------+ + + + | BLOOD | 82 | 70 - 99 mg/dL [...] [facility] | [address] | [place], [place] | | | JOC[facility]NE [facility] OF [facility] | [address] | [address] | | | TESTS | | | | + + + + + CENTRAL LINE (08/26/2019 4:08 AM PST) + + + | Narrative | Performed At | + + + | Pavan Ramos MD 08/26/2019 4:10 AM CENTRAL LINE Performed | | | by: Pavan Ramos MD Authorized by: Charlie Portillo MD | | | Written consent obtained?: [...] | | Indications: Indications: Administration of medicationn and | | | Assessment of intravascular volume Diagnosis indicating | | | procedure: Refractory hypotension Responsible Provider: | | | Operators: Fellow and Resident Attending physically present: | | | No Fellow name: Kleber Fleming Resident name: Pavan Ramos | | | Anesthesia: Anesthesia: Opioid Local anesthetic: | | | Lidocaine 1% w/o epinephrine Anesthetic total (ml): 3 | | | Sedation/Analgesia: Patient sedated?: No Procedure details: | | | Monitoring: EKG, SaO2, NIBP and Arterial line Insertion side: | | | Right Insertion site: Internal Jugular vein Insertion | | | site statement: With catheter tip targeted in SVC, see CXR report | | | for confirmation Vein garbage stoker technique: Ultrasound Guidance | | | Techique: The modified Seldinger technique (a | | | [id number]-[id number]-ydul-ndwt-[id number]-ggo-[id number]) was used for | | | vessel cannulation Confirmed by: Fluid manometry was used to | | | confirm venous cannulation and The wire was visualized with | | | ultrasound in the correct target vessel Ultrasound options: No | | | images saved Catheter type: Triple lumen Catheter size: 7 | | | Fr Catheter length: 15 cm Insertion depth: 15 cm | | | Ports: All ports aspirated for blood Ports flushed with: | | | Saline Number of attempts: 2 Fixation and Dressing: Line | | | secured: Suture and Dressing Applied The guide wire was removed | | | without difficulties and intact Dressing: Dressing applied | | | prior of removal of full barrier drape Complications: | | | Complications: None | | + + + ARTERIAL LINE (08/26/2019 2:18 AM PST) + + + | Narrative | Performed At | + + + | Pavan Ramos MD 08/26/2019 2:20 AM ARTERIAL LINE Performed | | | by: Pavan Ramos MD Authorized by: Charlie Portillo MD | | | Written consent obtained?: Yes Consent given by: Patient | | | Patient identity confirmed per policy: Yes Procedural pause: | | | Immediately prior to the procedure a pause per universal protocol | | | was called . Indications: Beat to beat blood pressure monitoring | | | Diagnosis indicating procedure: Refractory hypotension Location | | | performed: 7A Operators: Fellow and Resident Attending | | | physically present: No Fellow name: Kleber Fleming Resident | | | name: Pavan Ramos Skin Preparation: Chloraprep Protective | | | barrier: Cap, Mask, Hand scrub, Gloves and Partially draped Sterile | | | Ultrasound Used: Sterile Ultrasound Used Local anesthetic: | | | Lidocaine 1% Insertion side: Right Insertion site: Radial | | | Catheter size: 20g Number of attempts: 4 or more Line secured: | | | StatLock Complications: None | | + + + BASIC METABOLIC SET (NA, K, CL, TCO2, BUN, CR, GLU, CA) (08/26/2019 12:23 AM PST) + + + + + + | Component | Value | Ref Range | Performed | Pathologist | | | | | At | Signature | + + + + + + | GLUCOSE, | 89 | 70 - 99 mg/dL | [facility] | | | PLASMA | | | LABORATORY | | | (LAB) | | | SERVICES, | | | | | | CORE | | + + + + + + | BUN, PLASMA | 33 (H) | 6 - 20 mg/dL | [facility] | | | (LAB) | | | LABORATORY | | | | | | SERVICES, | | | | | | CORE | | + + + + + + | CREATININE | 1.85 (H) | 0.60 - 1.10 | [facility] | | | PLASMA | | mg/dL | LABORATORY | | | (LAB) | | | SERVICES, | | | | | | CORE | | + + + + + + | EGFR | 34 (L) | >60 mL/min | [facility] | | | - | | | LABORATORY | | | ANGOLAN | | | SERVICES, | | | | | | CORE | | + + + + + + | EGFR NON | 28 (L) | >60 mL/min | [facility] | | | -LISA | | | LABORATORY | | | RICAN | | | SERVICES, | | | | | | CORE | | + + + + + + | SODIUM, | 140 [...] + + + + | CHLORIDE, | 117 (H) | 97 - 108 mmol/L | [...] + + + + | CALCIUM, | 9.9 | 8.6 - 10.2 | [facility] | | | PLASMA | | mg/dL | LABORATORY | | | (LAB) | | | SERVICES, | | | | | | CORE | | + + + + + + | ANION GAP | 4 | 4 - 11 mmol/L | [facility] [...] | + + + + + | [id number] | [address] | [place] [address] | | | SERVICES, DWIGHT | [address] | | | + + + + + D-DIMER, (PE OR DIC) (08/26/2019 12:23 AM PST) + + + + + + | Component | Value | Ref Range | Performed | Pathologist | | | | | At | Signature | + + + + + + | D-DIMER (PE | 1.60 (H) | <0.50 ug/mLFEU | [facility] | | | OR DIC) | | | LABORATORY | | | | | | SERVICES, | | | | | | CORE | | + + + + + + + + | Specimen | + + | Blood - Blood | | (substance) | + + + + + | Narrative | Performed At | + + + | D-Dimer Interpretation: <0.5 PE very unlikely 0.50-4.0 | [facility] | | Seen in ill patients but not diagnostic of thrombosis. >4.0 | LABORATORY | | Compatible with DIC but not diagnostic. If clinically | SERVICES, CORE | | indicated request titration of d-dimer. Values >8.0 | | | are strongly suggestive of DIC. | | + + + + + + + + | Performing | Address | City/State/Zipcode | Phone Number | | Organization | | | | + + + + + | [facility] | [address] | [place] [address] | | | SERVICES, DWIGHT | [address] | | | + + + + + UA, DIPSTICK ONLY (08/26/2019 12:23 AM PST) + + + + + [...] + + + + | GLUCOSE(UR) | Negative | Negative, 50.0 | [facility] | | [...] + + + + | PH(UR) | 6.0 | 5.0 - 8.0 | [facility] | [...] + + + + | SPECIFIC | 1.015Comment: Specific | 1.005 - 1.030 | [facility] | | | GRAVITY | Acme performed by | | LABORATORY | | [...] [facility] | [address] | [place] [id number] | | | SERVICES, CORE | [address] | | | + + + + + CHLORIDE, URINE (08/26/2019 12:22 AM PST) + +--------+ + + + | Component | Value | Ref Range | Performed | Pathologist | | | | | At | Signature | + +--------+ + + + | CHLORIDE | 111 | mmol/L | [facility] | | | CONC URINE | | | LABORATORY | | [...] [facility] | [address] | [place] [address] | | | SERVICES, CORE | [address] | | | + + + + + POTASSIUM TOTAL, URINE (08/26/2019 12:22 AM PST) + +--------+ + + + | Component | Value | Ref Range | Performed | Pathologist | | | | | At | Signature | + +--------+ + + + | POTASSIUM | 37 | mmol/L | [facility] | | | CONC UR [...] [facility] | [address] | [place] [address] | | | SERVICES, CORE | [address] | | | + + + + + SODIUM TOTAL, URINE (08/26/2019 12:22 AM PST) + +--------+ + + + | Component | Value | Ref Range | Performed | Pathologist | | | | | At | Signature | + +--------+ + + + | SODIUM CONC | 86 | mmol/L | [facility] | | | [...] | + + + + + | [facility] | [address] | [place] [address] | | | SERVICES, CORE | [address] | | | + + + + + BG-LAC,POC ISTAT (08/25/2019 8:56 PM PST) + + + + + + | Component | Value | Ref Range | Performed | Pathologist | | | | | At | Signature | + + + + + + | TOTAL CO2 | 22 (L) | 23 - 29 mmol/L | [facility] - | | | LEEANNE, POC | | | [facility] | | | | | | K[facility]EN [facility] | | | | | | OF CARE | | | | | | TESTS | | + + + + + + | PH VENOUS, | 7.24 (L) | 7.35 - 7.45 | [facility] - | | | POC | | | [facility] | | | | | | [facility] | | | | | | OF CARE | | | | | | TESTS | | + + + + + + | PCO2 | 47 | 35 - 50 mmHg | [facility] - | | | VENOUS, POC | | | [facility] | | | | | | [facility] | | | | | | OF CARE | | | | | | TESTS | | + + + + + + | HCO3 | 20 (L) | 22 - 28 mmol/L | [facility] - | | | VENOUS, POC | | | [facility] | | | | | | [facility] | | | | | | OF CARE | | | | | | TESTS | | + + + + + + | PO2 VENOUS, | <41 (L) | 30 - 55 mmHg | [facility] - | | | POC | | | [facility] | | | | | | [facility] | | | | | | OF CARE | | | | | | TESTS | | + + + + + + | O2 SAT | 16 | 95 - 98 % | [facility] - | | | VENOUS, POC | | | [facility] | | | | | | [facility] | | | | | | OF CARE | | | | | | TESTS | | + + + + + + | LACTATE | 0.9 | 0.5 - 2.2 | [facility] - | | | VENOUS, POC | | mmol/L | [facility] | | | | | | [facility]EN [facility] | | | | | | OF CARE | | | | | | TESTS | | + + + + + + | PAT TEMP | 37.0 | | [facility] - | | | VENOUS,POC | | | [facility] | | | | | | [facility] | | | | | | OF CARE | | | | | | TESTS | | + + + + + + | BASE EXCESS | -7.0 | -2 - 3 mmol/L | [facility] - | | | LEEANNE, POC | | | [facility] | | | | | | [facility] | | | | | | OF CARE | | | | | | TESTS | | + + + + + + + + | Specimen | + + | | + + + + + + + | Performing | Address | City/State/Zipcode | Phone Number | | Organization | | | | + + + + + | [facility] | [address] | [place], [place] | | | [facility] CARE | [address] | [address] | | | TESTS | | | | + + + + + TROPONIN, POC (08/25/2019 8:54 PM PST) + +-------+ + + + | Component | Value | Ref Range | Performed | Pathologist | | | | | At | Signature | + +-------+ + + + | TROPONIN, | <0.02 | 0.0 - 0.49 | [facility] - | | | POC | | ng/mL | [facility] | | | | | | K[facility]EN [facility] | | [...] [facility] | [address] | [place], [place] | | | [facility] | [address] | [address] | | | TESTS | | | | + + + + + CBC AND AUTO DIFF (08/25/2019 8:50 PM PST) + + + + + + | Component | Value | Ref Range | Performed | Pathologist | | | | | At | Signature | + + + + + + | WHITE CELL | 2.69 (L) | 3.50 - 10.80 | [facility] | | | COUNT | | K/cu mm | LABORATORY | | | | | | SERVICES, | | | | | | CORE | | + + + + + + | RED CELL | 3.98 (L) | 4.00 - 5.20 | [facility] | | | COUNT | | M/cu mm | LABORATORY | | | | | | SERVICES, | | | | | | CORE | | + + + + + + | HEMOGLOBIN | 11.0 (L) | 12.0 - 16.0 | [facility] | | | | | g/dL | LABORATORY | | | | | | SERVICES, | | | | | | CORE | | + + + + + + | HEMATOCRIT | 36.7 | 36.0 - 46.0 % | [facility] | | | | | | LABORATORY | | | | | | SERVICES, | | | | | | CORE | | + + + + + + | MCV | 92.2 | 80.0 - 100.0 fL | [facility] | | | | | | LABORATORY | | | | | | SERVICES, | | | | | | CORE | | + + + + + + | MCHC | 30.0 (L) | 32.0 - 36.0 | [facility] | | | | | g/dL | LABORATORY | | | | | | SERVICES, | | | | | | CORE | | + + + + + + | RDW SD | 52.1 (H) | 35.1 - 46.3 fL | [facility] | | | | | | LABORATORY | | | | | | SERVICES, | | | | | | CORE | | + + + + + + | PLATELET | 108 (L) | 150 - 400 K/cu | [facility] | | | COUNT | | mm | LABORATORY | | | | | | SERVICES, | | | | | | CORE | | + + + + + + | MPV | 9.3 (L) | 9.7 - 12.3 fL | [...] + + + + | NEUTROPHIL | 87.0 (H) | 50.0 - 70.0 % | [facility] | | | % | | | LABORATORY | | | | | | SERVICES, | | | | | | CORE | | + + + + + + | LYMPHOCYTE | 6.3 (L) | 18.0 - 42.0 % | [facility] | | | % | | | LABORATORY | | | | | | SERVICES, | | | | | | CORE | | + + + + + + | MONOCYTE % | 3.0 (L) | 3.5 - 9.0 % | [facility] | | | | | | LABORATORY | | | | | | SERVICES, | | | | | | CORE | | + + + + + + | EOS % | 2.6 | 1.0 - 3.0 % | [facility] [...] + + + + | NEUTROPHIL | 2.34 | 1.80 - 7.70 | [facility] | | | # | | K/cu mm | LABORATORY | | | | | | SERVICES, | | | | | | CORE | | + + + + + + | LYMPHOCYTE | 0.17 (L) | 1.00 - 4.80 | [facility] | | | # | | K/cu mm | LABORATORY | | | | | | SERVICES, | | | | | | CORE | | + + + + + + | MONOCYTE # | 0.08 (L) | 0.10 - 0.90 | [facility] | | | | | K/cu mm | LABORATORY | | | | | | SERVICES, | | | | | | CORE | | + + + + + + | EOS # | 0.07 | 0.00 - 0.50 | [facility] | | | | | K/cu mm | LABORATORY | | | | | | SERVICES, | | | | | | CORE | | + + + + + + | BASO # | 0.02 | 0.00 - 0.10 | [...] [facility] | [address] | [place] [address] | | | SERVICES, CORE | [address] | | | + + + + + COMPLETE METABOLIC SET (NA,K,CL,CO2,BUN,CREAT,GLUC,CA,AST,ALT,BILI TOTAL,ALK PHOS,ALB,PROT TOTAL) (08/25/2019 8:49 PM PST) + + + + + + | Component | Value | Ref Range | Performed | Pathologist | | | | | At | Signature | + + + + + + | GLUCOSE, | 84 | 70 - 99 mg/dL | [facility] | | | PLASMA | | | LABORATORY | | | (LAB) | | | SERVICES, | | | | | | CORE | | + + + + + + | BUN, PLASMA | 32 (H) | 6 - 20 mg/dL | [facility] | | | (LAB) | | | LABORATORY | | | | | | SERVICES, | | | | | | CORE | | + + + + + + | CREATININE | 1.83 (H) | 0.60 - 1.10 | [facility] | | | PLASMA | | mg/dL | LABORATORY | | | (LAB) | | | SERVICES, | | | | | | CORE | | + + + + + + | EGFR | 35 (L) | >60 mL/min | [facility] | | | - | | | LABORATORY | | | [facility]OLAN | | | SERVICES, | | | | | | CORE | | + + + + + + | EGFR NON | 29 (L) | >60 mL/min | [facility] | | | -LISA | | | LABORATORY | | | RICAN | | | SERVICES, | | | | | | CORE | | + + + + + + | SODIUM, | 139 | 136 - 145 | [facility] | [...] + + + + | CALCIUM, | 10.1 | 8.6 - 10.2 | [facility] | | | PLASMA | | mg/dL | LABORATORY | | | (LAB) | | | SERVICES, | | | | | | CORE | | + + + + + + | CALCIUM(ALB | 11.3 (H) | 8.6 - 10.2 | [facility] [...] + + + | ALK PHOS | 82 | 42 - 98 U/L | [facility] | | | | | | LABORATORY | | | | | | SERVICES, | | | | | | CORE | | + + + + + + | AST(SGOT) | 41 | <=41 U/L | [facility] | | | | | | LABORATORY | | | | | | SERVICES, | | | | | | CORE | | + + + + + + | ALT (SGPT) | 16 | <=60 U/L | [facility] | | | | | | LABORATORY | | | | | | SERVICES, | | | | | | CORE | | + + + + + + | ANION GAP | 5 | 4 - 11 mmol/L | [facility] | | | | | | LABORATORY | | | | | | SERVICES, | | | | | | CORE | | + + + + + + | ANION | 8 | 4 - 11 mmol/L [...] + + + + | GLOBULIN | 3.2 | 2.3 - 3.5 gm/dL | [facility] | | | LVL | | | LABORATORY | | | | | | SERVICES, | | | | | | CORE | | + + + + + + | ALBUMIN/NICOLETTE | 0.8 (L) | 0.9 - 2.0 | [facility] [...] MDRD equation recommended by the National | [facility] | | Kidney Disease Education [...] [facility] | [address] | [place] [address] | | | SERVICES, CORE | [address] | | | + + + + + LACTATE (08/25/2019 8:49 PM PST) + +-------+ + + + | Component | Value | Ref Range | Performed | Pathologist | | | | | At | Signature | + +-------+ + + + | LACTATE | 1.2 | mmol/L | [facility] | | | | | | LABORATORY | | | | | | SERVICES, | | | | | | CORE | | + +-------+ + + + + + | Specimen | + + | Blood - Blood | | (substance) | + + + + + | Narrative | Performed At | + + + | Reference Range: Venous blood: 0.5 - 2.2 mmol/L Critical >= | [facility] | | 4.0 mmol/L Arterial blood: 0.5 - 1.6 mmol/L Critical >= 4.0 | LABORATORY | | mmol/L | SERVICES, CORE | + + + + + + + + | Performing | Address | City/State/Zipcode | Phone Number | | Organization | | | | + + + + + | [facility] | [address] | [place] [address] | | | SERVICES, CORE | [address] | | | + + + + + BLOOD GASES, VENOUS - LAB (08/25/2019 8:49 PM PST) + + + + + + | Component | Value | Ref Range | Performed | Pathologist | | | | | At | Signature | + + + + + + | PH VENOUS | 7.28 (L) | 7.35 - 7.45 | [facility] | | | | | | LABORATORY | | | | | | SERVICES, | | | | | | CORE | | + + + + + + | PCO2 VENOUS | 45 | 35 - 50 mmHg | [facility] | | | | | | LABORATORY | | | | | | SERVICES, | | | | | | CORE | | + + + + + + | PO2 VENOUS | 29 (L) | 30 - 55 mmHg | [facility] | | | | | | LABORATORY | | | | | | SERVICES, | | | | | | CORE | | + + + + + + | HCO3 VENOUS | 20 (L) | 22 - 28 mmol/L | [facility] | | | | | | LABORATORY | | | | | | SERVICES, | | | | | | CORE | | + + + + + + | BASE EXCESS | -5.8 (L) | -3.0 - 3.0 | [facility] | | | VENOUS | | mmol/L | LABORATORY | | | | | | SERVICES, | | | | | | CORE | | + + + + + + | O2 SAT, | 50.6 | No range has | [facility] | | | VENOUS | | been | LABORATORY | | | | | established % | SERVICES, | | | | | | CORE | | + + + + + + | TOTAL CO2 | 22 (L) | 23 - 29 mmol/L | [facility] | | | VENOUS | | | LABORATORY | | | [...] [facility] | [address] | [place] [address] | | | SERVICES, CORE | [address] | | | + + + + + HAPTOGLOBIN (08/25/2019 8:49 PM PST) + +---------+ + + + | Component | Value | Ref Range | Performed | Pathologist | | | | | At | Signature | + +---------+ + + + | HAPTOGLOBIN | 203 (H) | 30 - 200 mg/dL | [facility] | | | | [...] [facility] | [address] | [place] [address] | | | SERVICES, CORE | [address] | | | + + + + + 12 LEAD ECG (08/25/2019 7:53 PM PST) + + + + + + | Component | Value | Ref Range | Performed | Pathologist | | | | | At | Signature | + + + + + + | VENTRICULAR | 96 | bpm | [facility] | | | RATE | | | OF | | | | | | CARDIOLOGY | | + + + + + + | ATRIAL RATE | 96 | ms | [facility] | | | | | | OF | | | | | | CARDIOLOGY | | + + + + + + | P-R | 170 | ms | [facility] | | | INTERVAL | | | OF | | | | | | CARDIOLOGY | | + + + + + + | P AXIS | 47 | deg | [facility] | | | | | | OF | | | | | | CARDIOLOGY | | + + + + + + | QRS | 104 | ms | [facility] | | | DURATION | | | OF | | | | | | CARDIOLOGY | | + + + + + + | QT | 339 | ms | [facility] | | | | | | OF | | | | | | CARDIOLOGY | | + + + + + + | QTC-BAZETT | 429 | ms | [facility] | | | | | | OF | | | | | | CARDIOLOGY | | + + + + + + | R AXIS | Invalid | deg | [facility] | | | | | | OF | | | | | | CARDIOLOGY | | + + + + + + | T AXIS | 4 | deg | [facility] | | | | | | OF | | | | | | CARDIOLOGY | | + + + + + + | ECG | Sinus rhythm | | [facility] | | | IMPRESSION | | | OF | | | | | | CARDIOLOGY | | + + + + + + | ECG | Abnormal R-wave | | [facility] | | | IMPRESSION | progression, early | | OF | | | | transition | | CARDIOLOGY | | + + + + + + | 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, old- | | [facility] | | | IMPRESSION | ABNORMAL ECG - | | OF | | | | | | CARDIOLOGY | | + + + + + + | ECG | Electronically signed | | [facility] | | | IMPRESSION | by: PINA HUMPHREYS | | OF | | | | 08-26-2019 21:14:46 | | CARDIOLOGY | | + + [...] DEPT OF | [address] | [place], [place] | | | CARDIOLOGY | [address] | [address] | | + + + + + COAGULOPATHY PANEL (INR,APTT,FIBRINOGEN) (08/25/2019 6:35 PM PST) + + + + + + | Component | Value | Ref Range | Performed | Pathologist | | | | | At | Signature | + + + + + + | INR | 1.11 | 0.90 - 1.20 INR | [facility] | | | | | | LABORATORY | | | | | | SERVICES, | | | | | | CORE | | + + + + + + | APTT | 23.3 (L) | 26.0 - 36.0 | [facility] | | | | | seconds | LABORATORY | | | | | | SERVICES, | | | | | | CORE | | + + + + + + | FIBRINOGEN | 488 (H) | 150 - 450 mg/dL | [facility] | | | LEVEL | | | LABORATORY | | | [...] Therapeutic ranges for full anticoagulation: INR for | [facility] | | Venous Thromboembolism (2.0 - 3.0) INR INR for | LABORATORY | | most patients with mech. valves (2.5 - 3.5) INR APTT values for | SERVICES, CORE | | monitoring heparin therapy may be affected by specimens processed >1 | | | hour after collection. APTT Therapeutic Range: | | | (75 - 120) sec Heparin levels of 0.35 - 0.7 U/mL | | | | | + + + + + + + + | Performing | Address | City/State/Zipcode | Phone Number | | Organization | | | | + + + + + | [facility] | [address] | [place] [address] | | | SERVICES, CORE | [address] | | | + + + + + LACTATE (08/25/2019 6:35 PM PST) + +-------+ + + + | Component | Value | Ref Range | Performed | Pathologist | | | | | At | Signature | + +-------+ + + + | LACTATE | 0.9 | mmol/L | [facility] | | | | | | LABORATORY | | | | | | SERVICES, | | | | | | CORE | | + +-------+ + + + + + | Specimen | + + | Blood - Blood | | (substance) | + + + + + | Narrative | Performed At | + + + | Reference Range: Venous blood: 0.5 - 2.2 mmol/L Critical >= | [facility] | | 4.0 mmol/L Arterial blood: 0.5 - 1.6 mmol/L Critical >= 4.0 | LABORATORY | | mmol/L | SERVICES, CORE | + + + + + + + + | Performing | Address | City/State/Zipcode | Phone Number | | Organization | | | | + + + + + | [facility] | [address] | [place] [address] | | | SERVICES, CORE | [address] | | | + + + + + BLOOD GASES, VENOUS - LAB (08/25/2019 6:35 PM PST) + + + + + + | Component | Value | Ref Range | Performed | Pathologist | | | | | At | Signature | + + + + + + | PH VENOUS | 7.30 (L) | 7.35 - 7.45 | [facility] | | | | | | LABORATORY | | | | | | SERVICES, | | | | | | CORE | | + + + + + + | PCO2 VENOUS | 40 | 35 - 50 mmHg | [facility] | | | | | | LABORATORY | | | | | | SERVICES, | | | | | | CORE | | + + + + + + | PO2 VENOUS | 57 (H) | 30 - 55 mmHg | [facility] | | | | | | LABORATORY | | | | | | SERVICES, | | | | | | CORE | | + + + + + + | HCO3 VENOUS | 19 (L) | 22 - 28 mmol/L | [facility] | | | | | | LABORATORY | | | | | | SERVICES, | | | | | | CORE | | + + + + + + | BASE EXCESS | -6.3 (L) | -3.0 - 3.0 | [facility] | | | VENOUS | | mmol/L | LABORATORY | | | | | | SERVICES, | | | | | | CORE | | + + + + + + | O2 SAT, | 88.2 | No range has | [facility] | | | VENOUS | | been | LABORATORY | | | | | established % | SERVICES, | | | | | | CORE | | + + + + + + | TOTAL CO2 | 20 (L) | 23 - 29 mmol/L | [facility] | | | VENOUS | | | LABORATORY | | | | | | SERVICES, | | | | | | CORE | | + + + + + + + + | Specimen | + + | Blood - Blood | | (substance) | + + + + + | Narrative | Performed At | + + + | Air Bubble in Specimen; Results May Be Erroneous. | [facility] | | | LABORATORY | | | SERVICES, CORE | + + + + + + + + | Performing | Address | City/State/Zipcode | Phone Number | | Organization | | | | + + + + + | [facility] | [address] | [place] [address] | | | SERVICES, CORE | [address] | | | + + + + + 12 LEAD ECG (08/25/2019 5:13 PM PST) + + + + + + | Component | Value | Ref Range | Performed | Pathologist | | | | | At | Signature | + + + + + + | VENTRICULAR | 93 | bpm | [facility] | | | RATE | | | OF | | | | | | CARDIOLOGY | | + + + + + + | ATRIAL RATE | 94 | ms | [facility] | | | | | | OF | | | | | | CARDIOLOGY | | + + + + + + | P-R | 176 | ms | [facility] | | | INTERVAL | | | OF | | | | | | CARDIOLOGY | | + + + + + + | P AXIS | 48 | deg | [facility] | | | | | | OF | | | | | | CARDIOLOGY | | + + + + + + | QRS | 104 | ms | [facility] | | | DURATION | | | OF | | | | | | CARDIOLOGY | | + + + + + + | QT | 336 | ms | [facility] | | | | | | OF | | | | | | CARDIOLOGY | | + + + + + + | QTC-BAZETT | 420 | ms | [facility] | | | | | | OF | | | | | | CARDIOLOGY | | + + + + + + | R AXIS | 17 | deg | [facility] | | | | | | OF | | | | | | CARDIOLOGY | | + + + + + + | T AXIS | 1 | deg | [facility] | | | | | | OF | | | | | | CARDIOLOGY | | + + + + + + | ECG | Sinus rhythm | | [facility] | | | [...] DEPT | | | IMPRESSION | by: PINA HUMPHREYS | | OF | | | | 08-25-2019 21:23:35 | | CARDIOLOGY | | + + [...] [facility] | [address] | [place], [place] | | | CARDIOLOGY | [address] | [address] | | + + + + + CHEM 8 W/H&HPOC (08/25/2019 5:08 PM PST) + + + + + + | Component | Value | Ref Range | Performed | Pathologist | | | | | At | Signature | + + + + + + | SODIUM, POC | 137 | 134 - 143 | [facility] - | | | | | mmol/L | [facility] | | | | | | [facility] | | | | | | OF CARE | | | | | | TESTS | | + + + + + + | POTASSIUM, | 5.6 (H) | 3.4 - 5.0 | [facility] - | | | POC | | mmol/L | [facility] | | | | | | [facility] | | | | | | OF CARE | | | | | | TESTS | | + + + + + + | CHLORIDE, | 113.0 (H) | 97 - 108 mmol/L | [facility] - | | | POC | | | [facility] | | | | | | [facility] | | | | | | OF CARE | | | | | | TESTS | | + + + + + + | IONIZED | 1.57 (H) | 1.14 - 1.32 | [facility] - | | | CALCIUM, | | mmol/L | [facility] | | | POC | | | [facility] | | | | | | OF CARE | | | | | | TESTS | | + + + + + + | TCO2, POC | 19 (L) | 22 - 28 mmol/L | [facility] - | | | | | | [facility] | | | | | | [facility] | | | | | | OF CARE | | | | | | TESTS | | + + + + + + | GLUCOSE, | 89 | 70 - 99 mg/dL | [facility] - | | | POC | | | [facility] | | | | | | [facility] | | | | | | OF CARE | | | | | | TESTS | | + + + + + + | BUN, POC | 30 (H) | 6 - 20 mg/dL | [facility] - | | | | | | [facility] | | | | | | [facility] | | | | | | OF CARE | | | | | | TESTS | | + + + + + + | CREATININE, | 2.0 (H) | 0.6 - 1.1 mg/dL | [facility] - | | | POC | | | [facility] | | | | | | [facility], POINT | | | | | | OF CARE | | | | | | TESTS | | + + + + + + | HEMOGLOBIN, | 8.8 (L) | 12.0 - 16.0 | [facility] - | | | POC | | g/dL | [facility] | | | | | | [facility] | | | | | | OF CARE | | | | | | TESTS | | + + + + + + | HEMATOCRIT, | 26 (L) | 36.0 - 46.0 | [facility] - | | | POC | | %PCV | [facility] | | | | | | [facility] | | | | | | OF CARE | | | | | | TESTS | | + + + + + + + + | Specimen | + + | | + + + + + + + | Performing | Address | City/State/Zipcode | Phone Number | | Organization | | | | + + + + + | [facility] | [address] | [place], [place] | | | [facility] | [address] | [address] | | | TESTS | | | | + + + + + POTASSIUM, PLASMA (08/25/2019 5:02 PM PST) + +---------+ + + + | [...] [facility] | [address] | [place] [address] | | | SERVICES, CORE | [address] | | | + + + + + COMPLETE METABOLIC SET (NA,K,CL,CO2,BUN,CREAT,GLUC,CA,AST,ALT,BILI TOTAL,ALK PHOS,ALB,PROT TOTAL) (08/25/2019 3:12 PM PST) + + + + + + | Component | Value | Ref Range | Performed | Pathologist | | | | | At | Signature | + + + + + + | GLUCOSE, | 78 | 70 - 99 mg/dL | [facility] | | | PLASMA | | | LABORATORY | | | (LAB) | | | SERVICES, | | | | | | CORE | | + + + + + + | BUN, PLASMA | 34 (H) | 6 - 20 mg/dL | [facility] | | | (LAB) | | | LABORATORY | | | | | | SERVICES, | | | | | | CORE | | + + + + + + | CREATININE | 1.93 (H) | 0.60 - 1.10 | [facility] | | | PLASMA | | mg/dL | LABORATORY | | | (LAB) | | | SERVICES, | | | | | | CORE | | + + + + + + | EGFR | 32 (L) | >60 mL/min | [facility] | | | - | | | LABORATORY | | | [facility] | | | SERVICES, | | | | | | CORE | | + + + + + + | EGFR NON | 27 (L) | >60 mL/min | [...] + + + + | POTASSIUM, | 6.5 (HH) | 3.4 - 5.0 | [facility] | | | PLASMA | | mmol/L | LABORATORY | | | (LAB) | | | SERVICES, | | | | | | CORE | | + + + + + + | CHLORIDE, | 116 (H) | 97 - 108 mmol/L | [...] + + + + | CALCIUM, | 10.2 | 8.6 - 10.2 | [facility] | | | PLASMA | | mg/dL | LABORATORY | | | (LAB) | | | SERVICES, | | | | | | CORE | | + + + + + + | CALCIUM(ALB | 11.5 (H) | 8.6 - 10.2 | [facility] | | | CORRECTED) | | mg/dL | LABORATORY | | | | | | SERVICES, | | | | | | CORE | | + + + + + + | BILIRUBIN | 0.8 | 0.3 - 1.2 mg/dL | [facility] [...] + + + + | ALBUMIN, | 2.4 (L) | 3.5 - 4.7 g/dL | [facility] | | | PLASMA | | | LABORATORY | | | (LAB) | | | SERVICES, | | | | | | CORE | | + + + + + + | ALK PHOS | 87 | 42 - 98 U/L | [facility] [...] + + + | ANION GAP | 5 | 4 - 11 mmol/L | [facility] | | | | | | LABORATORY | | | | | | SERVICES, | | | | | | CORE | | + + + + + + | ANION | 9 | 4 - 11 mmol/L [...] MDRD equation recommended by the National | [facility] | | Kidney Disease Education [...] [facility] | [address] | [place] [address] | | | SERVICES, CORE | [address] | | | + + + + + FREE T4 (08/25/2019 5:36 AM PST) + +-------+ + + + [...] | + + + + + | [facility] | [address] | [place] [address] | | | SERVICES, CORE | [address] | | | + + + + + TSH W/REFLEX TO FREE T4(IF ABNORMAL) (08/25/2019 5:36 AM PST) + + + + + + | Component | Value | Ref Range | Performed | Pathologist | | | | | At | Signature | + + + + + + | TSH | 11.90 (H) | 0.50 - 5.07 | [facility] [...] | + + + + + | [facility] | [address] | [place] [address] | | | SERVICES, CORE | [address] | | | + + + + + MAGNESIUM, PLASMA (08/25/2019 5:36 AM PST) + +-------+ + + + | Component | Value | Ref Range | Performed | Pathologist | | | | | At | Signature | + +-------+ + + + | MAGNESIUM,P | 1.7 | 1.6 - 2.6 mg/dL | [facility] | | | LASMA | | | LABORATORY | | | [...] | + + + + + | [facility] | [address] | [place] [address] | | | SERVICES, CORE | [address] | | | + + + + + COMPLETE METABOLIC SET (NA,K,CL,CO2,BUN,CREAT,GLUC,CA,AST,ALT,BILI TOTAL,ALK PHOS,ALB,PROT TOTAL) (08/25/2019 5:36 AM PST) + + + + + [...] + + + + | CREATININE | 1.78 (H) | 0.60 - 1.10 | [facility] | | | PLASMA | | mg/dL | LABORATORY | | | (LAB) | | | SERVICES, | | | | | | CORE | | + + + + + + | EGFR | 36 (L) | >60 mL/min | [facility] | | | - | | | LABORATORY | | | [facility] | | | SERVICES, | | | | | | CORE | | + + + + + + | EGFR NON | 29 (L) | >60 mL/min | [...] + + + + | CHLORIDE, | 116 (H) | 97 - 108 mmol/L | [...] + + + + | CALCIUM, | 10.8 (H) | 8.6 - 10.2 | [facility] | | | PLASMA | | mg/dL | LABORATORY | | | (LAB) | | | SERVICES, | | | | | | CORE | | + + + + + + | CALCIUM(ALB | 12.1 (H) | 8.6 - 10.2 | [facility] [...] + + + + | ALBUMIN, | 2.4 (L) | 3.5 - 4.7 g/dL | [facility] | | | PLASMA | | | LABORATORY | | | (LAB) | | | SERVICES, | | | | | | CORE | | + + + + + + | ALK PHOS | 81 | 42 - 98 U/L | [facility] | | | | | | LABORATORY | | | | | | SERVICES, | | | | | | CORE | | + + + + + + | AST(SGOT) | 36 | <=41 U/L | [facility] | | | | | | LABORATORY | | | | | | SERVICES, | | | | | | CORE | | + + + + + + | ALT (SGPT) | 16 | <=60 U/L | [facility] | | | | | | LABORATORY | | | | | | SERVICES, | | | | | | CORE | | + + + + + + | ANION GAP | 4 | 4 - 11 mmol/L | [facility] | | | | | | LABORATORY | | | | | | SERVICES, | | | | | | CORE | | + + + + + + | ANION | 8 | 4 - 11 mmol/L [...] + + + + | BUN/CREATIN | 20 | 8 - 25 | [facility] | | | INE RATIO | | | LABORATORY | | | | | | SERVICES, | | | | | | CORE | | + + + + + + | GLOBULIN | 3.3 [...] | + + + + + | [facility] | [address] | [place] [address] | | | SERVICES, CORE | [address] | | | + + + + + CBC AND AUTO DIFF (08/25/2019 5:32 AM PST) + + + + + + | Component | Value | Ref Range | Performed | Pathologist | | | | | At | Signature | + + + + + + | WHITE CELL | 3.94 | 3.50 - 10.80 | [facility] | | | COUNT | | K/cu mm | LABORATORY | | | | | | SERVICES, | | | | | | CORE | | + + + + + + | RED CELL | 3.63 (L) | 4.00 - 5.20 | [facility] | | | COUNT | | M/cu mm | LABORATORY | | | | | | SERVICES, | | | | | | CORE | | + + + + + + | HEMOGLOBIN | 10.3 (L) | 12.0 - 16.0 | [facility] | | | | | g/dL | LABORATORY | | | | | | SERVICES, | | | | | | CORE | | + + + + + + | HEMATOCRIT | 33.1 (L) | 36.0 - 46.0 % | [facility] | | | | | | LABORATORY | | | | | | SERVICES, | | | | | | CORE | | + + + + + + | MCV | 91.2 | 80.0 - 100.0 fL | [facility] | | | | | | LABORATORY | | | | | | SERVICES, | | | | | | CORE | | + + + + + + | MCHC | 31.1 (L) | 32.0 - 36.0 | [facility] | | | | | g/dL | LABORATORY | | | | | | SERVICES, | | | | | | CORE | | + + + + + + | RDW SD | 50.7 (H) | 35.1 - 46.3 fL | [facility] | | | | | | LABORATORY | | | | | | SERVICES, | | | | | | CORE | | + + + + + + | PLATELET | 113 (L) | 150 - 400 K/cu | [facility] | | | COUNT | | mm | LABORATORY | | | | | | SERVICES, | | | | | | CORE | | + + + + + + | MPV | 8.9 (L) | 9.7 - 12.3 fL | [...] + + + + | NEUTROPHIL | 88.4 (H) | 50.0 - 70.0 % | [facility] | | | % | | | LABORATORY | | | | | | SERVICES, | | | | | | CORE | | + + + + + + | LYMPHOCYTE | 5.3 (L) | 18.0 - 42.0 % | [facility] | | | % | | | LABORATORY | | | | | | SERVICES, | | | | | | CORE | | + + + + + + | MONOCYTE % | 3.3 (L) | 3.5 - 9.0 % | [facility] | | | | | | LABORATORY | | | | | | SERVICES, | | | | | | CORE | | + + + + + + | EOS % | 2.0 | 1.0 - 3.0 % | [facility] | | | | | | LABORATORY | | | | | | SERVICES, | | | | | | CORE | | + + + + + + | BASO % | 0.5 | 0.0 - 2.0 % | [facility] [...] + + + + | NEUTROPHIL | 3.48 | 1.80 - 7.70 | [facility] | | | # | | K/cu mm | LABORATORY | | | | | | SERVICES, | | | | | | CORE | | + + + + + + | LYMPHOCYTE | 0.21 (L) | 1.00 - 4.80 | [facility] | | | # | | K/cu mm | LABORATORY | | | | | | SERVICES, | | | | | | CORE | | + + + + + + | MONOCYTE # | 0.13 | 0.10 - 0.90 | [facility] | | | | | K/cu mm | LABORATORY | | | | | | SERVICES, | | | | | | CORE | | + + + + + + | EOS # | 0.08 | 0.00 - 0.50 | [facility] | | | | | K/cu mm | LABORATORY | | | | | | SERVICES, | | | | | | CORE | | + + + + + + | BASO # | 0.02 | 0.00 - 0.10 | [...] in the IG count. Bands are | SERVICES CORE | | included in the neutrophil count. | | + + + + + + + + | Performing | Address | City/State/Zipcode | Phone Number | | Organization | | | | + + + + + | [facility] | [address] | [place] [address] | | | SERVICES, CORE | [address] | | | + + + + + PTH, SERUM (08/25/2019 5:32 AM PST) + +--------+ + + + | Component | Value | Ref Range | Performed | Pathologist | | | | | At | Signature | + +--------+ + + + | PTH, SERUM | <7 (L) | 18 - 88 pg/mL | [facility] | | | | [...] [facility] | [address] | [place] [address] | | | SERVICES, CORE | [address] | | | + + + + + BLOOD BANK HOLD TUBE - DON T PROCESS (08/24/2019 10:36 PM PST) + + + + + + | Component | Value | Ref Range | Performed | Pathologist | | | | | At | Signature | + + + + + + | SPECIMEN | Sample received with | | [facility] | | | COLLECTED, | adeq label/volume to | | LABORATORY | | | HELD | process | | SERVICES, | | | | | | TRANSFUSION | | | | | | MEDICINE | | + + + + + + + + | Specimen | + + | Blood - Blood | | (substance) | + + + + + + + | Performing | Address | City/State/Zipcode | Phone Number | | Organization | | | | + + + + + | [facility] | [address] | [place] [address] | | | SERVICES, | [address] | | | | TRANSFUSION MEDICINE | | | | + + + + + INR (08/24/2019 10:35 PM PST) + +-------+ + + + | Component | Value | Ref Range | Performed | Pathologist | | | | | At | Signature | + +-------+ + + + | INR | 1.07 | 0.90 - 1.20 INR | [facility] [...] mech. valves (2.5 - 3.5) INR | DWIGHT MARTINEZ | + + + + + + + + | Performing | Address | City/State/Zipcode | Phone Number | | Organization | | | | + + + + + | [facility] | [address] | [place] [address] | | | MICHELLE, DWIGHT | [address] | | | + + + + + CHEM 8 W/H&HPOC (08/24/2019 10:12 PM PST) + + + + + + | Component | Value | Ref Range | Performed | Pathologist | | | | | At | Signature | + + + + + + | SODIUM, POC | 137 | 134 - 143 | [facility] | | | | | mmol/L | [place] | | | | | | [facility] | | | | | | OF CARE | | | | | | TESTS | | + + + + + + | POTASSIUM, | 5.5 (H) | 3.4 - 5.0 | [facility] | | | POC | | mmol/L | [facility] | | | | | | [facility] | | | | | | OF CARE | | | | | | TESTS | | + + + + + + | CHLORIDE, | 110.0 (H) | 97 - 108 mmol/L | [facility] | | | POC | | | [facility] | | | | | | [facility] | | | | | | OF CARE | | | | | | TESTS | | + + + + + + | IONIZED | 1.74 (H) | 1.14 - 1.32 | [facility] | | | CALCIUM, | | mmol/L | [facility] | | | POC | | | [facility], POINT | | | | | | OF CARE | | | | | | TESTS | | + + + + + + | TCO2, POC | 24 | 22 - 28 mmol/L | [facility] | | | | | | [facility] | | | | | | [facility] | | | | | | OF CARE | | | | | | TESTS | | + + + + + + | GLUCOSE, | 94 | 70 - 99 mg/dL | [facility] | | | POC | | | [facility] | | | | | | [facility], POINT | | | | | | OF CARE | | | | | | TESTS | | + + + + + + | BUN, POC | 41 (H) | 6 - 20 mg/dL | [facility] | | | | | | [facility] | | | | | | [facility] | | | | | | OF CARE | | | | | | TESTS | | + + + + + + | CREATININE, | 2.2 (H) | 0.6 - 1.1 mg/dL | [facility] | | | POC | | | [place] | | | | | | K[facility]EN [facility] | | | | | | OF CARE | | | | | | TESTS | | + + + + + + | HEMOGLOBIN, | 10.2 (L) | 12.0 - 16.0 | [facility] | | | POC | | g/dL | [facility] | | | | | | [facility] | | | | | | OF CARE | | | | | | TESTS | | + + + + + + | HEMATOCRIT, | 30 (L) | 36.0 - 46.0 | [facility] | | | POC | | %PCV | [place] | | | | | | K[facility]EN [facility] | | | | | | OF CARE | | | | | | TESTS | | + + + + + + + + | Specimen | + + | | + + + + + + + | Performing | Address | City/State/Zipcode | Phone Number | | Organization | | | | + + + + + | [facility] | [address] | [place], [place] | | | [facility] | [address] | [address] | | | TESTS | | | | + + + + + PHOSPHORUS, PLASMA (08/24/2019 8:23 PM PST) + +-------+ + + + | Component | Value | Ref Range | Performed | Pathologist | | | | | At | Signature | + +-------+ + + + | PHOSPHORUS, | 3.3 | 2.4 - 4.7 mg/dL | [facility] | | | PLASMA [...] + + | [facility] | [address] | [place] [address] | | | SERVICES, CORE | [address] | | | + + + + + LDH TOTAL, PLASMA (08/24/2019 8:23 PM PST) + +---------+ + + + | Component | Value | Ref Range | Performed | Pathologist | | | | | At | Signature | + +---------+ + + + | LD TOTAL, | 387 (H) | <=250 U/L | [facility] | | | PLASMA | | | LABORATORY | | | | | | SERVICES, | | | | | | CORE | | + +---------+ + + + | LD CMNT | No Hemo | | [facility] [...] [facility] | [address] | [place] [address] | | | SERVICES, CORE | [address] | | | + + + + + URIC ACID, PLASMA (08/24/2019 8:23 PM PST) + + + + + + | Component | Value | Ref Range | Performed | Pathologist | | | | | At | Signature | + + + + + + | URIC ACID, | 11.2 (H) | 2.5 - 6.2 mg/dL | [facility] | | | PLASMA [...] | + + + + + | [facility] | [address] [facility] | [place] [address] | | | SERVICES, CORE | [address] | | | + + + + + COMPLETE METABOLIC SET (NA,K,CL,CO2,BUN,CREAT,GLUC,CA,AST,ALT,BILI TOTAL,ALK PHOS,ALB,PROT TOTAL) (08/24/2019 8:23 PM PST) + + + + + [...] + + + | BUN, PLASMA | 43 (H) | 6 - 20 mg/dL | [facility] | | | (LAB) | | | LABORATORY | | | | | | SERVICES, | | | | | | CORE | | + + + + + + | CREATININE | 2.06 (H) | 0.60 - 1.10 | [facility] | | | PLASMA | | mg/dL | LABORATORY | | | (LAB) | | | SERVICES, | | | | | | CORE | | + + + + + + | EGFR | 30 (L) | >60 mL/min | [facility] | | | - | | | LABORATORY | | | [facility] | | | SERVICES, | | | [...] + + + + | CALCIUM, | 11.9 (H) | 8.6 - 10.2 | [facility] | | | PLASMA | | mg/dL | LABORATORY | | | (LAB) | | | SERVICES, | | | | | | CORE | | + + + + + + | CALCIUM(ALB | 12.8 (H) | 8.6 - 10.2 | [facility] [...] + + + + | TOTAL | 6.8 | 6.4 - 8.2 g/dL | [facility] | | | PROTEIN, | | | LABORATORY | | | PLASMA | | | SERVICES, | | | (LAB) | | | CORE | | + + + + + + | ALBUMIN, | 2.9 (L) | 3.5 - 4.7 g/dL | [facility] | | | PLASMA | | | LABORATORY | | | (LAB) | | | SERVICES, | | | | | | CORE | | + + + + + + | ALK PHOS | 108 (H) | 42 - 98 U/L | [...] + + + | ANION GAP | 4 | 4 - 11 mmol/L | [facility] | | | | | | LABORATORY | | | | | | SERVICES, | | | | | | CORE | | + + + + + + | ANION | 6 | 4 - 11 mmol/L [...] + + + + | BUN/CREATIN | 21 | 8 - 25 | [facility] | [...] | + + + + + | [facility] | [address] | [place] [address] | | | SERVICES, CORE | [address] | | | + + + + + RAINBOW HOLD TUBE - GREEN TOP (08/24/2019 8:23 PM PST) + + | Specimen | + + | Blood - Blood | | (substance) | + + + + + + + | Performing | Address | City/State/Zipcode | Phone Number | | Organization | | | | + + + + + | [facility] | [address] | [place] [address] | | | SERVICES, CORE | [address] | | | + + + + + URINE SCREEN FOR CULTURE (08/24/2019 8:05 PM PST) + + + + + + | Component | Value | Ref Range | Performed | Pathologist | | | | | At | Signature | + + + + + + | URINE | Negative | Negative | [facility] | | | SCREEN FOR | | | LABORATORY | | | CULTURE | | | SERVICES, | | | | | | CORE | | + + + + + + + + | Specimen | + + | Urine - Urine | | (substance) | + + + + + | Narrative | Performed At | + + + | Culture Screen Negative. Culture not indicated. | [facility] | | | LABORATORY | | | SERVICES, CORE | + + + + + + + + | Performing | Address | City/State/Zipcode | Phone Number | | Organization | | | | + + + + + | [facility] | [address] | [place] [address] | | | SERVICES, CORE | [address] | | | + + + + + URINE, MICROSCOPIC EXAM (08/24/2019 8:05 PM PST) + +---------+ + + + | Component | Value | Ref Range | Performed | Pathologist | | | | | At | Signature | + +---------+ + + + | RED CELLS | 439 (H) | 0 - 3 /hpf | [facility] | | | | | | LABORATORY | | | | | | SERVICES, | | | | | | CORE | | + +---------+ + + + | WHITE CELLS | <1 | 0 - 5 /hpf | [facility] | | | | | | LABORATORY | | | | | | SERVICES, | | | | | | CORE | | + +---------+ + + + | BACTERIA | None [...] +---------+ + + + | SQUAMOUS | None [...] [facility] | [address] | [place] [address] | | | SERVICES, CORE | [address] | | | + + + + + CBC AND AUTO DIFF (08/24/2019 7:38 PM PST) + + + + + + | Component | Value | Ref Range | Performed | Pathologist | | | | | At | Signature | + + + + + + | WHITE CELL | 3.23 (L) | 3.50 - 10.80 | [facility] | | | COUNT | | K/cu mm | LABORATORY | | | | | | SERVICES, | | | | | | CORE | | + + + + + + | RED CELL | 4.14 | 4.00 - 5.20 | [facility] | | | COUNT | | M/cu mm | LABORATORY | | | | | | SERVICES, | | | | | | CORE | | + + + + + + | HEMOGLOBIN | 11.6 (L) | 12.0 - 16.0 | [facility] | | | | | g/dL | LABORATORY | | | | | | SERVICES, | | | | | | CORE | | + + + + + + | HEMATOCRIT | 37.5 | 36.0 - 46.0 % | [facility] | | | | | | LABORATORY | | | | | | SERVICES, | | | | | | CORE | | + + + + + + | MCV | 90.6 | 80.0 - 100.0 fL | [facility] [...] + + + | RDW SD | 50.3 (H) | 35.1 - 46.3 fL | [facility] | | | | | | LABORATORY | | | | | | SERVICES, | | | | | | CORE | | + + + + + + | PLATELET | 141 (L) | 150 - 400 K/cu | [facility] | | | COUNT | | mm | LABORATORY | | | | | | SERVICES, | | | | | | CORE | | + + + + + + | MPV | 9.0 (L) | 9.7 - 12.3 fL | [facility] | | | | | | LABORATORY | | | | | | SERVICES, | | | | | | CORE | | + + + + + + | NRBC% | 0.6 (H) | 0.0 - 0.3 % | [facility] | | | | | | LABORATORY | | | | | | SERVICES, | | | | | | CORE | | + + + + + + | NRBC# | 0.02 | 0.00 - 0.02 | [facility] | | | | | K/cu mm | LABORATORY | | | | | | SERVICES, | | | | | | CORE | | + + + + + + | NEUTROPHIL | 71.5 (H) | 50.0 - 70.0 % | [facility] | | | % | | | LABORATORY | | | | | | SERVICES, | | | | | | CORE | | + + + + + + | LYMPHOCYTE | 15.8 (L) | 18.0 - 42.0 % | [facility] | | | % | | | LABORATORY | | | | | | SERVICES, | | | | | | CORE | | + + + + + + | MONOCYTE % | 8.7 | 3.5 - 9.0 % | [facility] | | | | | | LABORATORY | | | | | | SERVICES, | | | | | | CORE | | + + + + + + | EOS % | 2.8 | 1.0 - 3.0 % | [facility] | | | | | | LABORATORY | | | | | | SERVICES, | | | | | | CORE | | + + + + + + | BASO % | 0.9 | 0.0 - 2.0 % | [facility] | | | | | | LABORATORY | | | | | | SERVICES, | | | | | | CORE | | + + + + + + | IG% | 0.3 | 0.0 - 1.0 % | [facility] | | | | | | LABORATORY | | | | | | SERVICES, | | | | | | CORE | | + + + + + + | NEUTROPHIL | 2.31 | 1.80 - 7.70 | [facility] | | | # | | K/cu mm | LABORATORY | | | | | | SERVICES, | | | | | | CORE | | + + + + + + | LYMPHOCYTE | 0.51 (L) | 1.00 - 4.80 | [facility] | | | # | | K/cu mm | LABORATORY | | | | | | SERVICES, | | | | | | CORE | | + + + + + + | MONOCYTE # | 0.28 | 0.10 - 0.90 | [facility] | | | | | K/cu mm | LABORATORY | | | | | | SERVICES, | | | | | | CORE | | + + + + + + | EOS # | 0.09 | 0.00 - 0.50 | [facility] | [...] | + + + + + | [facility] | [address] | [place] [address] | | | SERVICES, CORE | [address] | | | + + + + + 12 LEAD ECG (08/24/2019 6:26 PM PST) + + + + + + | Component | Value | Ref Range | Performed | Pathologist | | | | | At | Signature | + + + + + + | VENTRICULAR | 90 | bpm | [facility] | | | RATE | | | OF | | | | | | CARDIOLOGY | | + + + + + + | ATRIAL RATE | 90 | ms | [facility] | | | | | | OF | | | | | | CARDIOLOGY | | + + + + + + | P-R | 211 | ms | [facility] | | | INTERVAL | | | OF | | | | | | CARDIOLOGY | | + + + + + + | P AXIS | 38 | deg | [facility] | | | | | | OF | | | | | | CARDIOLOGY | | + + + + + + | QRS | 104 | ms | [facility] | | | DURATION | | | OF | | | | | | CARDIOLOGY | | + + + + + + | QT | 356 | ms | [facility] | | | | | | OF | | | | | | CARDIOLOGY | | + + + + + + | NORI-CHRISTINE | 436 | ms | [facility] | | | | | | OF | | | | | | CARDIOLOGY | | + + + + + + | R AXIS | -89 | deg | [facility] | | | | | | OF | | | | | | CARDIOLOGY | | + + + + + + | T AXIS | 9 | deg | [facility] | | | | | | OF | | | | | | CARDIOLOGY | | + + + + + + | ECG | Sinus rhythm | | [facility] | | | IMPRESSION | | | OF | | | | | | CARDIOLOGY | | + + + + + + | ECG | Prolonged IL interval | | [facility] | | | IMPRESSION | | | OF | | | | | | CARDIOLOGY | | + + + + + + | ECG | Left axis deviation- | | [facility] | | | IMPRESSION | ABNORMAL ECG - | | OF | | | | | | CARDIOLOGY | | + + + + + + | ECG | Electronically signed | | [facility] | | | IMPRESSION | by: PINA HUMPHREYS | | OF | | | | 08-25-2019 21:23:39 | | CARDIOLOGY | | + + [...] DEPT OF | [address] | [place], [place] | | | CARDIOLOGY | [address] | [address] | | + + + + + ED INFORMATION EXCHANGE (08/24/2019 6:17 PM PST) + + | Specimen | + + | | + + + + + | Narrative | Performed At | + + + | COLLECTIVE?NOTIFICATION?08/24/2019 18:16?HANK ALTMAN?MRN: | COLLECTIVE | | [id number] Criteria Met [facility] Security and Safety No | MEDICAL | | recent Security Events currently on file ED Care Guidelines There | TECHNOLOGIES | | are currently no ED Care Guidelines for this patient. Please check | | | your facility's medical records system. Prescription Drug | | | Report (12 Mo.) Rx Details Fill Date Drug Description Qty. | | | Prescriber MED 2019-08-22 OXYCODONE HCL 5 MG TABLET 84 LISSETTE | | | MD ANGEL 2 90 2019-08-09 HYDROCODONE-ACETAMIN 5-325 MG 112 CLEVE | | | MS ALF 2 20 2019-07-27 HYDROCODONE-ACETAMIN 5-325 MG 30 GUERO | | | MD SHARIFA 2 50 Rx Summary Metric Count CS II-V Rx 3 CS-II | | | Rx 3 Quantity Dispensed 226 Unique Prescribers 3 Unique | | | Pharmacies 2 Benzos 0 Opioids 3 Long Acting Opioids 0 | | | E.D. Visit Count (12 mo.) Facility Visits [facility] | | | [facility] 1 [facility] 1 Total 2 Note: | | | Visits indicate total known visits. Recent Emergency Department | | | Visit Summary Date Facility City State Type Diagnoses or Chief | | | Complaint Aug 24, 2019 [facility] [place] | | | [place] Emergency 10,800. abnormal labs Jul 27, 2019 [facility] | | | [facility] [place] Emergency Other halfway (current) drug | | | therapy Other specified disorders of kidney and ureter Low | | | back pain Hematuria, unspecified Recent Inpatient | | | Visit Summary No recorded inpatient visits. Care Team There is | | | not a care team on record at this time. Nefsis This | | | patient has registered at the [facility] | | | Emergency Department For more information visit: | | | [email or web address] | | | [email or web address] PLEASE NOTE: 1. Any care recommendations and [...] | or completeness of information provided. ? 2019 [employer] | | | [email or web address] - [email or web address] | | + + + + + | Procedure Note | + + | Service Account, Rtf Results Inbound - 08/24/2019 6:18 PM PST Formatting of this | | note might be different from the original.COLLECTIVE?NOTIFICATION?08/24/2019 18:16?AGAPITO, | | HANK Nettles? Met PDMPSecurity and SafetyNo recent Security Events | | currently on fileED Care GuidelinesThere are currently no ED Care Guidelines for this | | patient. Please check your facility's medical records system.Prescription Drug Report | | (12 Mo.)Rx DetailsFill Date Drug Description Qty. Prescriber CS MED 2019-08-22 OXYCODONE | | HCL 5 MG TABLET 84 LISSETTE ORTIZ MD 2 90 2019-08-09 HYDROCODONE-ACETAMIN 5-325 MG | | 112 CLEVE [place], [place] 2 20 2019-07-27 HYDROCODONE-ACETAMIN 5-325 MG 30 GUERO SKAGGS | | 2 50 Rx SummaryMetric Count CS II-V Rx 3 CS-II Rx 3 Quantity Dispensed 226 Unique | | Prescribers 3 Unique Pharmacies 2 Benzos 0 Opioids 3 Long Acting Opioids 0 E.D. Visit | | Count (12 mo.)Facility Visits [facility] 1 [facility] | | Hospital 1 Total 2 Note: Visits indicate total known visits. Recent Emergency | | Department Visit SummaryDate Facility City State Type Diagnoses or Chief Complaint Aug | | 2018 [facility] [place] Emergency 10,800. abnormal | | labs Jul 27, 2019 [facility] [place] Emergency Other meterman (current) | | drug therapy Other specified disorders of kidney and ureter Low back pain | | Hematuria, unspecified Recent Inpatient Visit SummaryNo recorded inpatient visits. Care | | TeamOlimpiabina is not a care team on record at this time. Secpanel EdmestonThis patient has | | registered at the [facility] Emergency Department For more | | information visit: | | [email or web address] PLEASE | | NOTE: 1. Any care [...] or completeness of information | | provided.? 2019 [employer] [facility] | |Benzos 0 | |Opioids 3 | |Long Acting Opioids 0 | | | | | | | |E.D. Visit Count (12 mo.) | |Facility Visits | |[facility] 1 | |[facility] 1 | |Total 2 | |Note: Visits indicate total known visits. | | | |Recent Emergency Department Visit Summary | |Date Facility City State Type Diagnoses or Chief Complaint | |Aug 24, 2019 [facility] [place] Emergency | | 10,800. abnormal labs | | | |Jul 27, 2019 [facility] [place] Emergency | | Other halfway (current) drug therapy | | Other specified disorders of kidney and ureter | | Low back pain | | Hematuria, unspecified | | | | | | | |Recent Inpatient Visit Summary | |No recorded inpatient visits. | | | |Care Team | |There is not a care team on record at this time. | |[facility] Portal | |This patient has registered at the [facility] | |For more information visit: [email or web address] | |PLEASE NOTE: | | 1. Any [...] of information provided. | | | |? 2019 [employer] | + + + + + + + | Performing | Address | City/State/Zipcode | Phone Number | | Organization | | | | + + + + + | [facility] | [address] | [place], [place] | [phone] | | [facility] | [address] | [address] | | + + + + + documented in this encounter Visit Diagnoses + + | Diagnosis | + + | Hypercalcemia of malignancy - Primary Hypercalcemia | + + | Hyperkalemia Hyperpotassemia | + + | Closed compression fracture of L2 lumbar vertebra, initial encounter (HCC) | + + | 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) | + + | Hypothyroidism Unspecified hypothyroidism | + + | Compression fracture of L2 vertebra (HCC) | + + | Renal cell adenocarcinoma (HCC) Malignant neoplasm of kidney, except pelvis | + + | Proteinuria | + + | Hematuria | + + | JONO (acute kidney injury) (HCC) Acute kidney failure, unspecified | + + | Elevated blood uric acid level Other abnormal blood chemistry | + + | Normocytic anemia Anemia, unspecified | + + | Leukopenia Leukocytopenia, unspecified | + + | Hypotension | + + documented in this encounter Administered Medications + +--------+ + +------+------+ | Medication Order | MAR | Action | Dose | Rate | Site | | | Action | Date | | | | + +--------+ + +------+------+ | acetaminophen (TYLENOL) tablet | Given | 09/01/20 | 1,000 mg | | | | 1,000 mg 1,000 mg, oral, THREE | | 19 8:21 | | | | | TIMES DAILY, First dose on Thu | | AM PST | | | | | 08/25/19 at 0900, Until | | | | | | | Discontinued | | | | | | + +--------+ + +------+------+ +-------+ + +---+---+ | Given | 08/31/20 | 1,000 mg | | | | | 19 9:55 | | | | | | PM PST | | | | +-------+ + +---+---+ | Given | 08/31/20 | 1,000 mg | | | | | 19 4:17 | | | | | | PM PST | | | | +-------+ + +---+---+ +---+---+ | | | +---+---+ + +-------+ +-------+---+---+ | bisacodyl (DULCOLAX) | Given | 08/26/20 | 10 mg | | | | suppository 10 mg 10 mg, rectal, | | 19 5:40 | | | | | DAILY NEEDED, Starting [facility] | | AM PST | | | | | 08/25/19 at 0322, Until [facility] | | | | | | | 09/01/19 at 2103, 2nd line for no | | | | | | | BM in past 2 days or if no | | | | | | | response to MIRALAX or if patient | | | | | | | unable to tolerate oral | | | | | | + +-------+ +-------+---+---+ +---+---+ | | | +---+---+ + +-------+ + +---+---+ | calcium carbonate chewable | Given | 09/01/20 | 400 mg | | | | (TUMS) tablet 400 mg elemental | | 19 10:45 | elementa | | | | 400 mg elemental (1,000 mg total | | AM PST | l | | | | salt), oral, TWICE DAILY WITH | | | | | | | MEALS, First dose on [facility] 09/01/19 | | | | | | | at 1045, Until Discontinued | | | | | | + +-------+ + +---+---+ +---+---+ | | | +---+---+ + +---------+ +-----+---+---+ | calcium gluconate 2 g in | New Bag | 08/31/20 | 2 g | | | | dextrose (D5) 5 % IV 2 g, | | 19 10:11 | | | | | intravenous, ONCE, 1 dose, Wed | | AM PST | | | | | 08/31/19 at 0815 | | | | | | + +---------+ +-----+---+---+ +---+---+ | | | +---+---+ + +---------+ +-----+---+---+ | ceFAZolin IV 2 gram in dextrose | New Bag | 08/29/20 | 2 g | | | | (RTU) 2 g, intravenous, | | 19 2:49 | | | | | PREPROCEDURE ONCE, 1 dose, | | PM PST | | | | | Starting 08/29/19 at 1340, | | | | | | | Until 08/29/19 at 1512 | | | | | | + +---------+ +-----+---+---+ +---+---+ | | | +---+---+ + +-------+ +---------+---+---+ | cholecalciferol (VITAMIN D3) | Given | 08/27/20 | 50,000 | | | | capsule 50,000 Units 50,000 | | 19 8:51 | Units | | | | Units, oral, EVERY 7 DAYS, 4 | | AM PST | | | | | doses, First dose on 08/27/19 | | | | | | | at 0845, Last dose on Sat | | | | | | | 09/17/19 at 0845 | | | | | | + +-------+ +---------+---+---+ +---+---+ | | | +---+---+ + +-------+ +---------+---+---+ | cholecalciferol (VITAMIN D3) | Given | 09/01/20 | 50,000 | | | | capsule 50,000 Units 50,000 | | 19 8:21 | Units | | | | Units, oral, DAILY, First dose | | AM PST | | | | | (after last modification) on Thu | | | | | | | 08/31/19 at 1345, Until | | | | | | | Discontinued | | | | | | + +-------+ +---------+---+---+ +-------+ +---------+---+---+ | Given | 08/31/20 | 50,000 | | | | | 19 3:32 | Units | | | | | PM PST | | | | +-------+ +---------+---+---+ +---+---+ | | | +---+---+ + +-------+ +---------+---+---+ | cosyntropin (CORTROSYN) | Given | 08/27/20 | 0.25 mg | | | | injection 0.25 mg 0.25 mg, | | 19 2:15 | | | | | intravenous, ONCE, 1 dose, Sat | | PM PST | | | | | 08/27/19 at 1400 | | | | | | + +-------+ +---------+---+---+ +---+---+ | | | +---+---+ + +-------+ +------+---+---+ | dexamethasone (DECADRON) | Given | 08/27/20 | 2 mg | | | | injection 2 mg 2 mg, | | 19 8:51 | | | | | intravenous, DAILY, First dose | | AM PST | | | | | (after last modification) on Thu | | | | | | | 08/26/19 at 1745, Until | | | | | | | Discontinued | | | | | | + +-------+ +------+---+---+ +-------+ +------+---+---+ | Given | 08/26/20 | 2 mg | | | | | 19 5:18 | | | | | | PM PST | | | | +-------+ +------+---+---+ +---+---+ | | | +---+---+ + +-------+ +-------+---+---+ | dextrose 50 % in water IV 50 mL | Given | 08/26/20 | 50 mL | | | | 50 mL, intravenous, ONCE, 1 | | 19 4:28 | | | | | dose, Thu08/26/19 at 0245 | | AM PST | | | | + +-------+ +-------+---+---+ +---+---+ | | | +---+---+ + +-------+ +-------+---+---------+ | enoxaparin (LOVENOX) injection | Given | 08/25/20 | 40 mg | | Abdomen | | 40 mg 40 mg, subcutaneous, EVERY | | 19 9:25 | | | | | EVENING, First dose (after last | | PM PST | | | | | modification) on [facility] 08/25/19 at | | | | | | | 2100, Until Discontinued | | | | | | + +-------+ +-------+---+---------+ +---+---+ | | | +---+---+ + +-------+ +--------+---+---+ | fentaNYL (SUBLIMAZE) injection | Given | 08/29/20 | 25 mcg | | | | 25-100 mcg 25-100 mcg, | | 19 2:50 | | | | | intravenous, INTRAPROCEDURE PRN, | | PM PST | | | | | 20 doses, Starting 08/29/19 | | | | | | | at 1340, Until 08/29/19 at | | | | | | | 1514, periprocedural pain | | | | | | | management | | | | | | + +-------+ +--------+---+---+ +-------+ +--------+---+---+ | Given | 08/29/20 | 25 mcg | | | | | 19 2:33 | | | | | | PM PST | | | | +-------+ +--------+---+---+ | Given | 08/29/20 | 25 mcg | | | | | 19 2:29 | | | | | | PM PST | | | | +-------+ +--------+---+---+ +---+---+ | | | +---+---+ + +---------+ +-------+---+---+ | gadoterate meglumine (DOTAREM) | IV Push | 08/30/20 | 20 mL | | | | 0.5 mmol/mL (376.9 mg/mL) | | 19 12:30 | | | | | injection 20 mL 20 mL (rounded | | PM PST | | | | | from 20.46 mL = 0.2 mL/kg | | | | | | | 102.3 kg Dosing weight), | | | | | | | intravenous, ONCE, 1 dose, Tue | | | | | | | 08/30/19 at 1230 | | | | | | + +---------+ +-------+---+---+ +---+---+ | | | +---+---+ + +-------+ +--------+---+---------+ | heparin injection 5,000 Units | Given | 08/28/20 | 5,000 | | Abdomen | | 5,000 Units, subcutaneous, EVERY | | 19 3:02 | Units | | | | 8 HOURS, First dose on Fri | | PM PST | | | | | 08/26/19 at 1400, Until | | | | | | | Discontinued | | | | | | + +-------+ +--------+---+---------+ +-------+ +--------+---+---------+ | Given | 08/28/20 | 5,000 | | Abdomen | | | 19 5:33 | Units | | | | | AM PST | | | | +-------+ +--------+---+---------+ | Given | 08/27/20 | 5,000 | | Abdomen | | | 19 9:08 | Units | | | | | PM PST | | | | +-------+ +--------+---+---------+ +---+---+ | | | +---+---+ + +-------+ +--------+---+---------+ | heparin injection 5,000 Units | Given | 09/01/20 | 5,000 | | Abdomen | | 5,000 Units, subcutaneous, EVERY | | 19 6:23 | Units | | | | 8 HOURS, First dose on Mon | | AM PST | | | | | 08/29/19 at 2200, Until | | | | | | | Discontinued | | | | | | + +-------+ +--------+---+---------+ +-------+ +--------+---+ + | Given | 08/31/20 | 5,000 | | Abdomen | | | 19 9:56 | Units | | | | | PM PST | | | | +-------+ +--------+---+ + | Given | 08/31/20 | 5,000 | | Left Arm | | | 19 3:32 | Units | | | | | PM PST | | | | +-------+ +--------+---+ + +---+---+ | | | +---+---+ + +-------+ +--------+---+---+ | hydrocortisone sodium succinate | Given | 08/26/20 | 100 mg | | | | (PF) (SOLU-CORTEF) injection 100 | | 19 10:25 | | | | | mg 100 mg, intravenous, ONCE, 1 | | AM PST | | | | | dose, 08/26/19 at 0945 | | | | | | + +-------+ +--------+---+---+ +---+---+ | | | +---+---+ + +-------+ +------+---+---+ | HYDROmorphone (DILAUDID) | Given | 08/26/20 | 1 mg | | | | injection 1 mg 1 mg, | | 19 3:00 | | | | | intravenous, ONCE, 1 dose, Fri | | AM PST | | | | | 08/26/19 at 0445 | | | | | | + +-------+ +------+---+---+ +---+---+ | | | +---+---+ + +-------+ + +---+---+ | insulin regular (HUMULIN R) | Given | 08/26/20 | 10 Units | | | | injection 10 Units 10 Units, | | 19 4:28 | | | | | intravenous, ONCE, 1 dose, Fri | | AM PST | | | | | 08/26/19 at 0245 | | | | | | + +-------+ + +---+---+ +---+---+ | | | +---+---+ + + + +-------+-------+---+ | lactated ringers (LR) infusion | Rate/Dos | 08/30/20 | 100 | 100 | | | 100 mL/hr, intravenous, | e Verify | 19 5:15 | mL/hr | mL/hr | | | CONTINUOUS, Starting 08/29/19 | | AM PST | | | | | at 1245, Until 08/30/19 at | | | | | | | 1653 | | | | | | + + + +-------+-------+---+ + + +-------+-------+---+ | New Bag | 08/30/20 | 100 | 100 | | | | 19 1:02 | mL/hr | mL/hr | | | | AM PST | | | | + + +-------+-------+---+ | Rate/Dose Verify | 08/29/20 | 100 | 100 | | | | 19 9:10 | mL/hr | mL/hr | | | | PM PST | | | | + + +-------+-------+---+ +---+---+ | | | +---+---+ + +-------+ +---------+---+---+ | levothyroxine tablet 137 mcg | Given | 09/01/20 | 137 mcg | | | | 137 mcg, oral, BEFORE BREAKFAST, | | 19 6:23 | | | | | First dose (after last | | AM PST | | | | | modification) on Thu08/26/19 at | | | | | | | 0630, Until Discontinued | | | | | | + +-------+ +---------+---+---+ +-------+ +---------+---+---+ | Given | 08/31/20 | 137 mcg | | | | | 19 6:37 | | | | | | AM PST | | | | +-------+ +---------+---+---+ | Given | 08/30/20 | 137 mcg | | | | | 19 5:29 | | | | | | AM PST | | | | +-------+ +---------+---+---+ +---+---+ | | | +---+---+ + +-------+ +-------+---+---+ | lidocaine (XYLOCAINE) 10 mg/mL | Given | 08/26/20 | 10 mL | | | | (1 %) injection 10 mL 10 mL, | | 19 1:30 | | | | | infiltration, ONCE, 1 dose, Fri | | AM PST | | | | | 08/26/19 at 0130 | | | | | | + +-------+ +-------+---+---+ +---+---+ | | | +---+---+ + +-------+ +------+---+---+ | melatonin tablet 3 mg 3 mg, | Given | 08/31/20 | 3 mg | | | | oral, AT BEDTIME NEEDED, | | 19 9:55 | | | | | Starting 08/28/19 at 0044, | | PM PST | | | | | Until [facility] 09/01/19 at 2103, | | | | | | | insomnia | | | | | | + +-------+ +------+---+---+ +-------+ +------+---+---+ | Given | 08/30/20 | 3 mg | | | | | 19 10:04 | | | | | | PM PST | | | | +-------+ +------+---+---+ | Given | 08/28/20 | 3 mg | | | | | 19 1:15 | | | | | | AM PST | | | | +-------+ +------+---+---+ +---+---+ | | | +---+---+ + +-------+ +--------+---+---+ | midazolam (PF) (VERSED) | Given | 08/29/20 | 0.5 mg | | | | injection 1-5 mg 1-5 mg, | | 19 2:33 | | | | | intravenous, INTRAPROCEDURE PRN, | | PM PST | | | | | 20 doses, Starting 08/29/19 | | | | | | | at 1340, Until 08/29/19 at | | | | | | | 1514, periprocedural sedation | | | | | | + +-------+ +--------+---+---+ +-------+ +--------+---+---+ | Given | 08/29/20 | 0.5 mg | | | | | 19 2:29 | | | | | | PM PST | | | | +-------+ +--------+---+---+ | Given | 08/29/20 | 0.5 mg | | | | | 19 2:22 | | | | | | PM PST | | | | +-------+ +--------+---+---+ +---+---+ | | | +---+---+ + +-------+ +-------+---+---+ | midodrine (PROAMITINE) tablet | Given | 09/01/20 | 10 mg | | | | 10 mg 10 mg, oral, EVERY 8 | | 19 6:24 | | | | | HOURS, First dose (after last | | AM PST | | | | | modification) on 08/27/19 at | | | | | | | 0215, Until Discontinued | | | | | | + +-------+ +-------+---+---+ +-------+ +-------+---+---+ | Given | 08/31/20 | 10 mg | | | | | 19 9:55 | | | | | | PM PST | | | | +-------+ +-------+---+---+ | Given | 08/31/20 | 10 mg | | | | | 19 3:32 | | | | | | PM PST | | | | +-------+ +-------+---+---+ +---+---+ | | | +---+---+ + +-------+ +------+---+---+ | morphine injection 2-4 mg 2-4 | Given | 08/24/20 | 2 mg | | | | mg, intravenous, EVERY 10 MINUTES | | 19 9:35 | | | | | NEEDED, 5 doses, Starting Wed | | PM PST | | | | | 08/24/19 at 2117, Until [facility] | | | | | | | 08/25/19 at 0322, moderate pain | | | | | | + +-------+ +------+---+---+ +---+---+ | | | +---+---+ + +---------+ + +-------+---+ | norepinephrine (LEVOPHED) | New Bag | 08/26/20 | 0.02 | 3.84 | | | 8mg/250 mL (0.032 mg/mL) IV | | 19 1:57 | mcg/kg/m | mL/hr | | | infusion (RTU) 0.02-0.2 | | AM PST | in | | | | mcg/kg/min | | | | | | | 102.3 kg Dosing weight | | | | | | | (3.8363-38.3625 mL/hr, rounded to | | | | | | | 3.84-38.36 mL/hr), intravenous, | | | | | | | CONTINUOUS, Starting Thu08/26/19 | | | | | | | at 0230, Until Thu08/26/19 at | | | | | | | 0202 | | | | | | + +---------+ + +-------+---+ +---+---+ | | | +---+---+ + + + + +-------+---+ | norepinephrine (LEVOPHED) | Rate/Dos | 08/27/20 | 0.01 | 1.92 | | | 8mg/250 mL (0.032 mg/mL) IV | e Verify | 19 4:00 | mcg/kg/m | mL/hr | | | infusion (RTU) 0.02-0.2 | | AM PST | in | | | | mcg/kg/min | | | | | | | 102.3 kg Dosing weight | | | | | | | (3.8363-38.3625 mL/hr, rounded to | | | | | | | 3.84-38.36 mL/hr), intravenous, | | | | | | | CONTINUOUS, Starting 08/26/19 | | | | | | | at 0230, Until 08/27/19 at | | | | | | | 1130 | | | | | | + + + + +-------+---+ + + + +-------+---+ | Rate/Dose Verify | 08/27/20 | 0.01 | 1.92 | | | | 19 1:00 | mcg/kg/m | mL/hr | | | | AM PST | in | | | + + + +-------+---+ | Restarted | 08/27/20 | 0.01 | 1.92 | | | | 19 12:30 | mcg/kg/m | mL/hr | | | | AM PST | in | | | + + + +-------+---+ + +---+ | | | + +---+ | norepinephrine (LEVOPHED) IV | | | infusion 1 dose, Starting Fri | | | 08/26/19 at 0142, Until Fri | | | 08/26/19 at 0157 | | + +---+ | | | + +---+ + +-------+ +---+---+---+ | nystatin (MYCOSTATIN) ointment | Given | 08/30/20 | | | | | topical, TWICE DAILY, First dose | | 19 10:05 | | | | | on 08/27/19 at 1315, Until | | PM PST | | | | | Discontinued | | | | | | + +-------+ +---+---+---+ +-------+ +---+---+---+ | Given | 08/30/20 | | | | | | 19 9:32 | | | | | | AM PST | | | | +-------+ +---+---+---+ | Given | 08/29/20 | | | | | | 19 9:13 | | | | | | PM PST | | | | +-------+ +---+---+---+ +---+---+ | | | +---+---+ + +-------+ +---+---+---+ | nystatin (MYCOSTATIN) powder | Given | 08/30/20 | | | | | topical, TWICE DAILY, First dose | | 19 10:05 | | | | | on 08/27/19 at 0900, Until | | PM PST | | | | | Discontinued | | | | | | + +-------+ +---+---+---+ +-------+ +---+---+---+ | Given | 08/30/20 | | | | | | 19 9:32 | | | | | | AM PST | | | | +-------+ +---+---+---+ | Given | 08/29/20 | | | | | | 19 9:13 | | | | | | PM PST | | | | +-------+ +---+---+---+ +---+---+ | | | +---+---+ + +-------+ +-------+---+---+ | omeprazole (PRILOSEC) capsule | Given | 08/25/20 | 20 mg | | | | 20 mg 20 mg, oral, DAILY | | 19 3:53 | | | | | NEEDED, Starting [facility] 08/25/19 at | | AM PST | | | | | 0341, Until [facility] 08/25/19 at 2022, | | | | | | | gerd | | | | | | + +-------+ +-------+---+---+ +---+---+ | | | +---+---+ + +-------+ +-------+---+---+ | omeprazole (PRILOSEC) capsule | Given | 09/01/20 | 20 mg | | | | 20 mg 20 mg, oral, TWICE DAILY, | | 19 8:21 | | | | | First dose (after last | | AM PST | | | | | modification) on [facility] 08/25/19 at | | | | | | | 2100, Until Discontinued | | | | | | + +-------+ +-------+---+---+ +-------+ +-------+---+---+ | Given | 08/31/20 | 20 mg | | | | | 19 9:55 | | | | | | PM PST | | | | +-------+ +-------+---+---+ | Given | 08/31/20 | 20 mg | | | | | 19 10:11 | | | | | | AM PST | | | | +-------+ +-------+---+---+ +---+---+ | | | +---+---+ + +-------+ +------+---+---+ | ondansetron (ZOFRAN) injection | Given | 08/24/20 | 4 mg | | | | 4 mg 4 mg, intravenous, ONCE, 1 | | 19 9:36 | | | | | dose, 08/24/19 at 2200 | | PM PST | | | | + +-------+ +------+---+---+ +---+---+ | | | +---+---+ + +-------+ +------+---+---+ | ondansetron ODT (ZOFRAN ODT) | Given | 08/31/20 | 4 mg | | | | tablet 4 mg 4 mg, oral, EVERY 8 | | 19 10:11 | | | | | HOURS NEEDED, Starting [facility] | | AM PST | | | | | 08/25/19 at 0322, Until [facility] | | | | | | | 09/01/19 at 2103, | | | | | | | nausea/vomiting, first line | | | | | | + +-------+ +------+---+---+ +-------+ +------+---+---+ | Given | 08/30/20 | 4 mg | | | | | 19 4:41 | | | | | | PM PST | | | | +-------+ +------+---+---+ | Given | 08/25/20 | 4 mg | | | | | 19 6:40 | | | | | | PM PST | | | | +-------+ +------+---+---+ +---+---+ | | | +---+---+ + +-------+ +-------+---+---+ | oxyCODONE (immediate release) | Given | 08/24/20 | 10 mg | | | | (ROXICODONE) tablet 10 mg 10 mg, | | 19 11:08 | | | | | oral, ONCE, 1 dose, 08/24/19 | | PM PST | | | | | at 2315 | | | | | | + +-------+ +-------+---+---+ +---+---+ | | | +---+---+ + +-------+ +-------+---+---+ | oxyCODONE (immediate release) | Given | 08/29/20 | 10 mg | | | | (ROXICODONE) tablet 10 mg 10 mg, | | 19 1:43 | | | | | oral, ONCE NEEDED, 1 dose, | | PM PST | | | | | Starting 08/29/19 at 1102, | | | | | | | Until Thu08/29/19 at 1343, Give | | | | | | | 30-40m prior to IR procedure for | | | | | | | pain control | | | | | | + +-------+ +-------+---+---+ +---+---+ | | | +---+---+ + +-------+ +------+---+---+ | oxyCODONE (immediate release) | Given | 08/25/20 | 5 mg | | | | (ROXICODONE) tablet 5 mg 5 mg, | | 19 2:06 | | | | | oral, ONCE, 1 dose, [facility] 08/25/19 | | AM PST | | | | | at 0245 | | | | | | + +-------+ +------+---+---+ +---+---+ | | | +---+---+ + +-------+ +-------+---+---+ | oxyCODONE (immediate release) | Given | 08/30/20 | 10 mg | | | | (ROXICODONE) tablet 5-10 mg 5-10 | | 19 6:52 | | | | | mg, oral, EVERY 4 HOURS | | PM PST | | | | | NEEDED, Starting [facility] 08/25/19 at | | | | | | | 0322, Until [facility] 09/01/19 at 2103, | | | | | | | moderate pain | | | | | | + +-------+ +-------+---+---+ +-------+ +-------+---+---+ | Given | 08/30/20 | 10 mg | | | | | 19 2:25 | | | | | | PM PST | | | | +-------+ +-------+---+---+ | Given | 08/30/20 | 10 mg | | | | | 19 9:27 | | | | | | AM PST | | | | +-------+ +-------+---+---+ +---+---+ | | | +---+---+ + +-------+ +------+---+---+ | polyethylene glycol (MIRALAX) | Given | 08/28/20 | 17 g | | | | packet 17 g 17 g, oral, DAILY, | | 19 8:15 | | | | | First dose on [facility] 08/25/19 at | | AM PST | | | | | 1245, Until Discontinued | | | | | | + +-------+ +------+---+---+ +-------+ +------+---+---+ | Given | 08/27/20 | 17 g | | | | | 19 8:46 | | | | | | AM PST | | | | +-------+ +------+---+---+ | Given | 08/26/20 | 17 g | | | | | 19 10:21 | | | | | | AM PST | | | | +-------+ +------+---+---+ +---+---+ | | | +---+---+ + +---------+ +------+---+---+ | rasburicase (ELITEK) IV 3 mg 3 | New Bag | 08/29/20 | 3 mg | | | | mg, intravenous, ONCE, 1 dose, | | 19 3:51 | | | | | 08/29/19 at 1315 | | PM PST | | | | + +---------+ +------+---+---+ +---+---+ | | | +---+---+ + +-------+ + +---+---+ | senna-docusate (SENOKOT S) | Given | 08/25/20 | 1 tablet | | | | 8.6-50 mg 1 tablet 1 tablet, | | 19 9:26 | | | | | oral, TWICE DAILY, First dose on | | PM PST | | | | | [facility] 08/25/19 at 0900, Until | | | | | | | Discontinued | | | | | | + +-------+ + +---+---+ +-------+ + +---+---+ | Given | 08/25/20 | 1 tablet | | | | | 19 9:32 | | | | | | AM PST | | | | +-------+ + +---+---+ +---+---+ | | | +---+---+ + +-------+ +---------+---+---+ | senna-docusate (SENOKOT S) | Given | 08/30/20 | 2 | | | | 8.6-50 mg 2 tablet 2 tablet, | | 19 9:30 | tablets | | | | oral, TWICE DAILY, First dose | | AM PST | | | | | (after last modification) on Fri | | | | | | | 08/26/19 at 0900, Until | | | | | | | Discontinued | | | | | | + +-------+ +---------+---+---+ +-------+ +---------+---+---+ | Given | 08/29/20 | 2 | | | | | 19 8:44 | tablets | | | | | AM PST | | | | +-------+ +---------+---+---+ | Given | 08/28/20 | 2 | | | | | 19 9:12 | tablets | | | | | PM PST | | | | +-------+ +---------+---+---+ +---+---+ | | | +---+---+ + +---------+ + +---+---+ | sodium chloride (NS) 0.9 % | New Bag | 08/24/20 | 1,000 mL | | | | bolus 1,000 mL 1,000 mL, | | 19 6:32 | | | | | intravenous, ONCE, 1 dose, Wed | | PM PST | | | | | 08/24/19 at 1900 | | | | | | + +---------+ + +---+---+ +---+---+ | | | +---+---+ + +---------+ + +---+---+ | sodium chloride (NS) 0.9 % | New Bag | 08/24/20 | 1,000 mL | | | | bolus 1,000 mL 1,000 mL, | | 19 10:12 | | | | | intravenous, ONCE, 1 dose, Wed | | PM PST | | | | | 08/24/19 at 2245 | | | | | | + +---------+ + +---+---+ +---+---+ | | | +---+---+ + +---------+ +--------+---+---+ | sodium chloride (NS) 0.9 % | New Bag | 08/25/20 | 500 mL | | | | bolus 500 mL 500 mL, | | 19 11:29 | | | | | intravenous, ONCE, 1 dose, Yazmin | | AM PST | | | | | 08/25/19 at 1200 | | | | | | + +---------+ +--------+---+---+ +---+---+ | | | +---+---+ + + + +-------+-------+---+ | sodium chloride (NS) 0.9 % | Rate/Dos | 08/25/20 | 150 | 150 | | | infusion 150 mL/hr, intravenous, | e Change | 19 7:00 | mL/hr | mL/hr | | | CONTINUOUS, Starting Yazmin | | PM PST | | | | | 08/25/19 at 0015, Until Yazmin | | | | | | | 08/25/19 at 2022 | | | | | | + + + +-------+-------+---+ +---------+ +-------+-------+---+ | New Bag | 08/25/20 | 200 | 200 | | | | 19 12:59 | mL/hr | mL/hr | | | | PM PST | | | | +---------+ +-------+-------+---+ | New Bag | 08/25/20 | 200 | 200 | | | | 19 7:30 | mL/hr | mL/hr | | | | AM PST | | | | +---------+ +-------+-------+---+ +---+---+ | | | +---+---+ + +---------+ +---------+---+---+ | sodium phosphate IV 15 mmol 15 | New Bag | 08/26/20 | 15 mmol | | | | mmol, intravenous, ONCE, 1 dose, | | 19 5:08 | | | | | 08/26/19 at 1600 | | PM PST | | | | + +---------+ +---------+---+---+ +---+---+ | | | +---+---+ + +---------+ +---------+-------+---+ | sodium phosphate IV 15 mmol 15 | New Bag | 08/30/20 | 15 mmol | 7.5 | | | mmol, intravenous, ONCE, 1 dose, | | 19 9:40 | | mL/hr | | | 08/30/19 at 0845 | | AM PST | | | | + +---------+ +---------+-------+---+ +---+---+ | | | +---+---+ documented in this encounter
--- OUTSIDE RECORDS SUMMARY | ~2020-05-06 | XMS | Encounter Summary ---
Demographics + + + | Address | [address] | | | [place] [address] | + + + | Home Phone | | + + + | Preferred Language | Unknown | + + + | Marital Status | | + + + | Mormon Affiliation | 1013 | + + + | Race | or Other | + + + | Ethnic Group | Not or | + + + Author + + + | Author | [facility] | | | and [place] | + + + | Organization | [facility] | | | and [...] Team Providers + +------+ + | Care Neighborhood Planner Name | Role | Phone | + +------+ + PCP | Unavailable | + +------+ + Encounter Details +--------+ + + + + | Date | Type | Department | Care Team | Description | +--------+ + + + + | 05/18/ | Hospital | [facility] | | | | 2001 - | Encounter | [facility] | | | | | | [facility]ENTER [address] | | | | 08/16/ | | [place] | | | | 2001 | | [id number] | | | | | | [phone] | | | +--------+ + + + [...]
--- OUTSIDE RECORDS SUMMARY | ~2020-05-06 | XMS | Encounter Summary ---
Demographics + + + | Address | [address] | | | [place] [address] | + + + | Home Phone [...] Team Providers + +------+ + | Care Dresser Tender Name | Role | Phone | + +------+ + | Lissette Martinez PA-C | PCP | | + +------+ + Encounter Details +--------+ + + + + | Date | Type | Department | Care Team | Description | +--------+ + + + + | 02/22/ | Procedure | Diagnostic Imaging | | | | 2019 | Pass | Services at [facility] | | | | | | [address] | | | | | | Digna Calvin | | | | | | [facility] | | | | | | [place], [place] | | | | | | [address] | | | | | | [phone] | | | +--------+ + + + [...] | 2019 | Visit | Oncology | [address] | | | | | | [address] | | | | | | [place] | | | | | | [address] | | | | | | [phone] | | | | | | | | +--------+---------+ + + + documented as of this encounter Visit Diagnoses Not on filedocumented in this encounter"
--- OUTSIDE RECORDS SUMMARY | ~2020-05-06 | XMS | Encounter Summary ---
Demographics + + + | Address | [address] | | | [place] [address] | + + + | Home Phone [...] Providers + +------+ + | Care Core Baker Name | Role | Phone | [...] + + | 11/20/ | Office | [facility] Ismael Cancer | KarenLissette, | Renal cell | | 2020 | Visit | Clinics at S | [place] [address] | carcinoma, | | | | [place] [address] | unspecified | | | | [facility] for | [place], [place] | laterality (HCC) | | | | Health and Healing, | [address] | (Primary Dx) | | | | [place] [address] | [phone] | | | | | [place], [place] | | | | | | [address] | | | | | | [phone] | | | +--------+---------+ + + + [...] speech. Appropriate mood/affect. Laboratory: LAB RESULTS: Clinical Drive Man on 11/21/2019 Component Date Value WHITE CELL [...] | 2019 | Visit | Oncology | [address] | | | | | [address] | | | | | | [place] | | | | | | [address] | | | | | | [phone] | | | | | | | | +--------+---------+ + + + documented as of this encounter Visit Diagnoses + + | Diagnosis | + + | Renal cell carcinoma, unspecified laterality (HCC) - Primary | + + documented in this encounter
--- OUTSIDE RECORDS SUMMARY | ~2020-05-06 | XMS | Encounter Summary ---
Demographics + + + | Address | [address] | | | [place] [address] | + + + | Home Phone [...] + + + | Author | [facility] | | | and Shahram | + + + | Organization | [facility] | | | and [...] Team Providers + +------+ + | Care Continuous Improvement Director Name | Role | Phone | + +------+ + PCP | Unavailable | + +------+ + Encounter Details +--------+ + + + + | Date | Type | Department | Care Team | Description | +--------+ + + + + | 09/12/ | Hospital | [facility] | | | | 2008 - | Encounter | [facility] CANCER | | | | | | CENTER [address] | | | | 10/07/ | | [place] | | | | 2008 | | [address] | | | | | | [phone] | | | +--------+ + + + [...]
--- OUTSIDE RECORDS SUMMARY | ~2020-05-06 | XMS | Encounter Summary ---
Demographics + + + | Address | [address] | | | [place] [address] | + + + | Home Phone [...] Team Providers + +------+ + | Care Accounts Receivable Supervisor Name | Role | Phone | [...] | | Clinics at S | [place] [address] | | | | | [place] [address] | | | | | [facility] for | [place], [place] | | | | | Health and Healing, | [address] | | | | | [address] | [phone] | | | | | [place], [place] | | | | | | [address] | | | | | | [phone] | | | +--------+--------+ + + + [...] Jones MD is scheduled on 02/13/20. Last [facility] progress note reviewed. Is there documentation to indicate that medication being r equested has been changed or discontinued? No Allergy list reviewed--Is the medication being requested on the patient's current allergy l ist? No Previous Prescription Details copied below: Date and Time Department Ordering/Authorizing 01/02/2020 9:34 AM [facility] Lissette Jones MD Outpatient Medication Detail Disp Refills OXYCODONE (IMMEDIATE RELEASE) 5 mg oral tablet 60 tablet 0 Sig: Take 1 tablet by mouth every four hours as needed for breakthrough pain. Sent to pharmacy as: oxyCODONE 5 mg tablet (ROXICODONE) Class: eRx Earliest Fill Date: 01/02/2020 Route: oral Order: [id number] E-Prescribing Status: Receipt confirmed by pharmacy (01/02/2020 9:34 AM PDT) Per [facility] policy, routing encounter to [facility] for review and approval. elephone Encounter - Carlo Navas - 01/18/2020 10:42 AM PDTPatient is out [...] the patient wants the prescription refilled at: [facility] in [place] Is it ok to leave a confidential [...] | 2019 | Visit | Oncology | [address] | | | | | | [address] | | | | | | [place] | | | | | | [address] | | | | | | [phone] | | | | | | | | +--------+---------+ + + + documented as of this encounter Visit Diagnoses Not on filedocumented in this encounter"
--- OUTSIDE RECORDS SUMMARY | ~2020-05-06 | XMS | Encounter Summary ---
Demographics + + + | Address | [address] | | | [place] [address] | + + + | Home Phone [...] Providers + +------+ + | Care Wire Fence Builder Name | Role | Phone | [...] | | | | | cancer, | [address] | [address] | | | | | primary, | [address] | [address]igna REID | | | | | with | Ct | Hospital, | | | | | metastasis | [facility], | 10th Floor | | | | | from kidney | [place] | [place], [place] | | | | | to other | [address] | [address] | | | | | site, left | Phone: | Phone: | | | | | (HCC) | [phone] | [phone] | | | | | Procedures | Fax: | Fax: | | | | | CT CHEST, | [phone] | [phone] | | | | | ABDOMEN AND [...] | 2019 | Encounter | Services at [facility] | [address] | Condition Change) | | | | [address] | [address] | | | | | Digna Sanches [facility] | [place], [place] | | | | | [facility], [address] [place] [address] | [address] | | | | | [place], [place] | [phone] | | | | | [address] | | | | | | [phone] | | | +--------+ + + + [...] | 2019 | Visit | Oncology | [address] | | | | [address] | | | | | | [facility] [place] | | | | | | [address] | | | | | | [phone] | | | | | | | | +--------+---------+ + + + documented as of this encounter Visit Diagnoses + + | Diagnosis | + + | Kidney cancer, primary, 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
--- OUTSIDE RECORDS SUMMARY | ~2020-05-06 | XMS | Encounter Summary ---
Demographics + + + | Address | [address] | | | [place] [address] | + + + | Home Phone [...] Team Providers + +------+ + | Care Melt Room Operator Name | Role | Phone | [...] | | | | cancer, | [place] [address] [address] | [address] | | | | | primary, | [address] | [address] | | | | | with | Ct | [place], [place] | | | | | metastasis | [place], | [address] | | | | | from kidney | [place] | Phone: | | | | | to other | [address] | [phone] | | | | | site, left | Phone: | Fax: | | | | | (HCC) | [phone] | [phone] | | | | | Procedures | Fax: | | | | | | CONSULT TO | [phone] | | | | | | ADULT [...] | | [address] | [place], [place] | | | | | [facility] | [address] | | | | | and Healing, | [phone] | | | | | [address] | | | | | | [place], [place] | | | | | | [address] | | | | | | [phone] | | | +--------+ + + + [...] mouth rinse FOOD INTAKE: less than usual [place] milk is ok. Lactose free milk (fairlife [...] cancer nu trition guidelines. ESTIMATED NUTRITION NEEDS: 0992-2331 (25-30 kcal/kg); 60-90 gm protein (1-1.5 gm/kg); 1788 mL fluid (30 mL/kg) NUTRITION INTERVENTION and RECOMMENDATIONS EDUCATION PROVIDED: Nutrition suggestions 1) Reviewed patient specific nutrition goals Provided some nutrition intake suggestions; continue frequent eating. - included protein intake goal and hydration - provided information regarding taste changes. Sent via [employer]. PLAN: PATIENT GOALS: 1. Weight stability 2. Adequate kcal, protein, and hydration RD contact information provided. Will continue to follow. Margo Reid RD MANAGER MED SURG LD Outpatient Adult Oncology Dietitian P documented in this enc ounter Plan of Treatment +--------+---------+ + + + | Date | Type | Specialty | Care Team | Description | +--------+---------+ + + + | 06/26/ | Office | Hematology & | Lissette Jones, | | 2019 | Visit | Oncology | [address] | | | | | | [address] | | | | | | [place] | | | | | | [address] | | | | | | [phone] | | | | | | | | +--------+---------+ + + + documented as of this encounter Visit Diagnoses + + | Diagnosis | + + | Renal cell carcinoma, unspecified laterality (HCC) - Primary | + + documented in this encounter
--- OUTSIDE RECORDS SUMMARY | ~2020-05-06 | XMS | Encounter Summary ---
Demographics + + + | Address | [address] | | | [place] [address] | + + + | Home Phone [...] Team Providers + +------+ + | Care Hospitality Ambassador Name | Role | Phone | + [...] Other | Hematology & | Diagnoses | Jaun | Karen, | | | | Oncology | Malignant | Lissette | Lissette, | | | | | neoplasm of | RADHA Curran | [address] | | | | | unspecified | [place] | [address] | | | | | kidney, | Family | [place], | | | | | except renal | Medicine | [place] [address] | | | | | pelvis | [address] | Phone: | | | | | Procedures | [address] | [phone] | | | | | NE NEW | [place], | Fax: | | | | | PATIENT | [place] [address] | [phone] | | | | | LEVEL V [place] | Phone: | | | | | | EST PATIENT | [phone] | | | | | | LEVEL V | Fax: | | | | | | | [phone] | | + +---------+ + + + + Encounter Details +--------+ + + + + | Date | Type | Department | Care Team | Description | +--------+ + + + + | 08/23/ | Hospital | [facility] | Onc, Gen [address] | | | 2019 | Encounter | Clinics at S | [place], | | | | | [address] | [place] [address] | | | | | [facility] [place] for | | | | | | Health and Healing, | | | | | | [address] | | | | | | [place], [place] | | | | | | [address] | | | | | | [phone] | | | +--------+ + + + [...] | 2019 | Visit | Oncology | [address] | | | | | | [address] | | | | | | [place] | | | | | | [address] | | | | | | [phone] | | | | | | | | +--------+---------+ + + + documented as of this encounter Visit Diagnoses Not on filedocumented in this encounter"
--- OUTSIDE RECORDS SUMMARY | ~2020-05-06 | XMS | Encounter Summary ---
Demographics + + + | Address | [address] | | | [place] [address] | + + + | Home Phone [...] Team Providers + +------+ + | Care Boston Cutter Name | Role | Phone | + +------+ + | Lissette Martinez PA-C | PCP | | + +------+ + Encounter Details +--------+ + + + + | Date | Type | Department | Care Team | Description | +--------+ + + + + | 08/24/ | Telephone | [facility] | Lissette Jones, | | | 2018 | | [facility] at [facility] | [address] | | | | | [address] | | | | | [place], [place] | [place], [place] | | | | | [address] | [address] | | | | | [phone] | [phone] | | | | | | | [...] Telephone Encounter - Ashlee Holley RN - 09/01/2019 12:[address] Gaines, Pt to be disch arged soon. Encounter routed to apparel stock checker to move Pt 09/[address] Jones to 09/05.Electro nically signed by Ashlee Holley RN at 09/01/2019 12:08 PM PSTTelephone Encounter - Ashlee Holley RN - 08/25/2019 7:52 AM PSTPt to be admitted through ED. elephone Encounter - Ashlee Holley RN - 08/24/2019 3:[address] Jones, Pt with hypotension, hyperkalemia, hypercalcemia, and compression fracture per CT scan. Pt currently in infusion and to be medically transported to ED. Pt here to get pamidronate but infusion delayed for ED. Pamidronate NOT GIVEN. Pt seen by Dr. Jones in infusion. Dr. Jones to advise Pt of need for ED. non profit financial controller, maya Puri call for medical transport after Dr. Jones sees Pt. Called report to ED. [facility] to foll ow up after discharge. ele phone Encounter - Ellie Johns MA - 08/24/2019 12:50 PM PSTCalled pt and advised them Dr. Jones sent an Rx for levothroxine to [facility] pharmacy and to vegetable picker after infusion today. Pt st ated understanding. ele phone Encounter - Ashlee Holley RN - 08/24/2019 11:42 AM PSTEncounter sent to apparel stock checker for s yohanant appts. New Treatment Planning Patient to start the following treatment (No abbreviations): pamidronate Treatment is given every 4 weeks for TBD cycles Additional appointments needed: N/A Additional Scheduling Instructions Offer Chemo Class Provider visit frequency: 4 week(s) Ok to see COVER INSPECTOR/PA: Yes The following treatments/appointments may be scheduled at a [facility] Site: per Pt preference elephone Encounter - Ashlee Joyce RN - 08/24/2019 11:[address] Jones. Per her, ok to override for d ental clearance and for high potassium. Entered RN communication orders for today's infusion . Dr. Jones to follow up on post treatment lab results. Per Dr. Jones, new prescription sent to pharmacy for increased Synthroid. Nelson to advise P t of need to vegetable picker new script during infusion.Electronically signed by Ashlee Holley RN at 1 10/25/2018 11:41 AM PSTTelephone Encounter - Ashlee Holley RN - 08/24/2019 10:01 AM PSTReceive d below email from Dr. Jones and, after clarifying Pt identifiers, called infusion for appt. From: Lissette Jones Sent: Saturday, August 24, 2019 10:17 AM To: Mike Marcano <[email or web address]> Subject: RE: RE: Tila Altman_08/24/19 Yes correct. We were going to give her fluids and then recheck BMP Also she should also get pamidronate From: Mike Marcano Sent: Saturday, August 24, 2019 9:59 AM To: Mike Marcano <[email or web address]>; Lissette Jones <[email or web address]> Subject: RE: RE: Tila Altman_08/24/19 Hi, I think I ve found her 63. Correct? Looks like her K+ is high too at 6. Sure she shouldn t go to ED? Otherwise, I ll see wh at I can do. Do you have orders in? ThanksAshlee From: Mike Onc Sent: Saturday, August 24, 2019 9:57 AM To: Lissette Jones <[email or web address]>; Mike Onc <[email or web address]> Subject: RE: RE: Tila Altman_08/24/19 Hi JV, Can you give me a MRN or ? Thanks, Ashlee From: Lissette Jones Sent: Saturday, August 24, 2019 9:44 AM To: Mike Onc <[email or web address]> Subject: RE: Tila Altman_08/24/19 Hi- checking to see if we can give pamidronate today for this patient, she has symptomatic hypercalcemia Plan in place [place] plan for pamidronate in place. Per investigator fraud, Pt already scheduled for 1 pm today fo r fluids per conversation with research coordinator, Jose Luis Larsen. Confirmed with Dr. Mitesh christensen that Pt is to receive 1L NS and pamidronate followed by CMP. Called [facility] [place] and obtained urgent auth. Called Pt and advised her that I would send educationa l information via [employer]. Requested Pt review information and call with questions. Pt denies any dental pain or known need for dental work but states that she has not had a d ental evaluation done in 2 years. Explained potential for related jaw necrosis. Message sent to Dr. Jones for ok to override need for dental evaluation and instruction rela juice to potassium level 6.0 on 08/23. Nelson Onc will follow up pending provider response.Esme ctronically signed by Ashlee Holley RN at 08/24/2019 11:07 AM PSTdocumented in this encounter Plan of Treatment +--------+---------+ + + + | Date | Type | Specialty | Care Team | Description | +--------+---------+ + + + | 06/26/ | Office | Hematology & | Lissette Jones, | | | 2019 | Visit | Oncology | [address] | | | | | | [address] | | | | | | [place] | | | | | | [address] | | | | | | [phone] | | | | | | | | +--------+---------+ + + + documented as of this encounter Visit Diagnoses Not on filedocumented in this encounter"
--- OUTSIDE RECORDS SUMMARY | ~2020-05-06 | XMS | Encounter Summary ---
Demographics + + + | Address | [address] | | | [place] [address] | + + + | Home Phone [...] Team Providers + +------+ + | Care Environmental Services Worker Name | Role | Phone [...] Pharmacy | | | | | | [address] | | | | | | [place], [place] | | | | | | [address] | | | | | | [phone] | | | +--------+ + + + [...] | 2019 | Visit | Oncology | [address] | | | | | | [address] | | | | | | [place] | | | | | | [address] | | | | | | [phone] | | | | | | | | +--------+---------+ + + + documented as of this encounter Visit Diagnoses Not on filedocumented in this encounter"
--- OUTSIDE RECORDS SUMMARY | ~2020-05-06 | XMS | Encounter Summary ---
Demographics + + + | Address | [address] | | | [place] [address] | + + + | Home Phone [...] Team Providers + +------+ + | Care Cable Tool Operator Name | Role | Phone | [...] | | | | cancer, | [place] [address] [address] | | | | | | primary, | [address] | | | | | | with | Ct | | | | | | metastasis | [place], | | | | | | from kidney | [place] | | | | | | to other | [address] | | | | | | site, left | Phone: | | | | | | (HCC) | [phone] | | | | | | Procedures | Fax: | | | | | | [place] BONE &/[place] | [phone] | | | | | | JOINT [...] | | | Kidney | [place], | [facility] [address] | | | | | cancer, | [place] [address] [address] | [address] | | | | | primary, | [address] | [address] | | | | | with | Ct | [place]as, | | | | | metastasis | [place], | Basement | | | | | from kidney | [place] | [place], [place] | | | | | to other | [address] | [address] | | | | | site, left | Phone: | Phone: | | | | | (HCC) | [phone] | [phone] | | | | | Procedures | Fax: | Fax: | | | | | [place] BONE &/[place] | [phone] | [phone] | | | | | JOINT | | | | | | | IMAGING | | | | | | | WHOLE BODY | | | | | | | LA BONE | | | | | | [...] | | 2019 | Encounter | at [facility] [address] | [address] | | | | | [address] | [address] | | | | | [place], | [facility] [place] | | | | | [place], | [address] | | | | | [place] [address] | [phone] | | | | | [phone] | | | +--------+ + + + [...] | 2019 | Visit | Oncology | [address] | | | | | | [address] | | | | | | [place] | | | | | | [address] | | | | | | [phone] | | | | | | | [...]
--- OUTSIDE RECORDS SUMMARY | ~2020-05-06 | XMS | Encounter Summary ---
Demographics + + + | Address | [address] | | | [place] [address] | + + + | Home Phone [...] Team Providers + +------+ + | Care Broach Grinder Name | Role | Phone | [...] | neoplasm of | RADHA Curran | [address] | | | | | unspecified | [place] | [address] | | | | | kidney, | Family | [place], | | | | | except renal | Medicine | [place] [address] | | | | | pelvis | [address] | Phone: | | | | | Procedures | [address] | [phone] | | | | | [place] NEW | [place], | Fax: | | | | | PATIENT | [place] [address] | [phone] | | | | | LEVEL V [place] | Phone: | | | | | | EST PATIENT | [phone] | | | | | | LEVEL V | Fax: | | | | | | | [phone] | | + +---------+ + + + + Encounter Details +--------+---------+ + + + | Date | Type | Department | Care Team | Description | +--------+---------+ + + + | 02/12/ | Office | [facility] | Lissette Jones, | Renal cell carcinoma | | 2020 | Visit | Clinics at S | [place] [address] [address] | of left kidney | | | | [place] [address] | (HCC) (Primary Dx) | | | | [facility] for | [place], [place] | | | | | Health and Healing, | [address] | | | | | [address] | [phone] | | | | | [place], [place] | | | | | | [address] | | | | | | [phone] | | | +--------+---------+ + + + [...] She reports continued improvement in strength alt rodney this has remarkably declined since her diagnosis- [...] speech. Appropriate mood/affect. Laboratory: LAB RESULTS: Clinical Fuels Engineer on 02/13/2020 Component Date Value WHITE CELL [...] | 2019 | Visit | Oncology | [address] | | | | | | [address] | | | | | | [place] | | | | | | [address] | | | | | | [phone] | | | | | | | [...]
--- OUTSIDE RECORDS SUMMARY | ~2020-05-06 | XMS | Encounter Summary ---
Demographics + + + | Address | [address] | | | [place] [address] | + + + | Home Phone [...] Team Providers + +------+ + | Care Carry Out Clerk And Shelf Stocker Name | Role | Phone | + [...] | | | | | cancer, | [address] | [address] [facility] | | | | | primary, | [address] | [facility] | | | | | with | Ct | Rd | | | | | metastasis | [place], | [place], [place] | | | | | from kidney | [place] | [address] | | | | | to other | [address] | Phone: | | | | | site, left | Phone: | [phone] | | | | | ([facility]) | [phone] | Fax: | | | | | Procedures | Fax: | [phone] | | | | | CONSULT TO | [phone] | | | | | | NEUROSURGERY | | | | | | | ID NEW | | | | | | | PATIENT | | | | | | | LEVEL V ID | | | | | | | [...] | [facility] [address] | [address] [facility] | | | | | [facility] for | [facility] | | | | | Health and Healing, | [place], [place] | | | | | Building | [address] | | | | | floor [place], [place] | [phone] | | | | | [address] | | | | | | [phone] | | | +--------+ + + + [...] new seizure. A stroke evalu ation at [facility] ED discovered a hemorrhagic mass in the [...] tumor control woul d likely be equivalent curator of photography and prints with or without surgical resection given the [...] provider located at the distant site of [facility]. T he patient stated they were located at the originating site of home and were in the state [facility] at the time of the telephone visit. The names of all persons participating in the cesar jurado visit and their roles are: myself and the patient Ms. Tila Altman. The patients encounter was accomplished via a telephone call today due to COVID-19 precauti onary measures to limit the patient's unnecessary exposure. Stephanie Bustos MD Skin Care Technician Department of Neurological Surgery Surgical Co-director, Neuro-Oncology Clinical Research [facility] documented in this encounter Plan of Treatment +--------+---------+ + + + | Date | Type | Specialty | Care Team | Description | +--------+---------+ + + + | 06/26/ | Office | Hematology & | Lissette Jones, | | 2019 | Visit | Oncology | [address] | | | | | [address] | | | | | | [place] | | | | | | [address] | | | | | | [phone] | | | | | | | | +--------+---------+ + + + documented as of this encounter Visit Diagnoses + + | Diagnosis | + + | Brain tumor (HCC) - Primary Neoplasm of unspecified nature of brain | + + documented in this encounter"
--- OUTSIDE RECORDS SUMMARY | ~2020-05-06 | XMS | Encounter Summary ---
Demographics + + + | Address | [address] | | | [place] [address] | + + + | Home Phone [...] Team Providers + +------+ + | Care Ballet Dancer Name | Role | Phone | + [...] | | | | | Kidney | Lisestte, | KESHA Aragon | | | | | [place], | [place] [address] [address] | [address] | | | | | primary, | [address] | | | | | with | Ct | [place], [place] | | | | | metastasis | [place], | [address] | | | | | from kidney | [place] | Phone: | | | | | to other | [address] | [phone] | | | | | site, left | Phone: | Fax: | | | | | ([facility]) | [phone] | [phone] | | | | | Procedures | Fax: | | | | | | CONSULT TO | [phone] | | | | | | ADULT [...] neoplasm of | E, [place] | [place] [address] | | | | | unspecified | [place] | [address] | | | | | kidney, | Family | [place], | | | | | except renal | Medicine | [place] [address] | | | | | pelvis | [address] | Phone: | | | | | Procedures | Pepe Frank | [phone] | | | | | [place] NEW | Tim, | Fax: | | | | | PATIENT | [place] [address] | [phone] | | | | | LEVEL V [place] | Phone: | | | | | | EST PATIENT | [phone] | | | | | | LEVEL V | Fax: | | | | | | | [phone] | | + +---------+ + + + + Encounter Details +--------+---------+ + + + | Date | Type | Department | Care Team | Description | +--------+---------+ + + + | 10/31/ | Office | [facility] | Lissette Ortiz, | Kidney cancer, | | 2020 | Visit | Clinics at S | [place] [address] [address] | primary, with | | | | [facility] [address] | metastasis from | | | | [facility] for | [place], [place] | kidney to other | | | | Health and Healing, | [address] | site, left (HCC) | | | | Building [address] | [phone] | (Primary Dx) | | | | [place], [place] | | | | | | [address] | | | | | | [phone] | | | +--------+---------+ + + + [...] speech. Appropriate mood/affect. Laboratory: LAB RESULTS: Clinical Soot Blower on 10/31/2019 Component Date Value WHITE CELL [...] CREATININE PLASMA (LAB) 10/31/2019 1.60* EGFR - CYMRO 10/31/2019 40* EGFR NON -CYMRO 10/31/2019 33* SODIUM, PLASMA (LAB) 10/31/2019 129* [...] Hematology & | Lissette Ortiz, | | 2019 | Visit | Oncology | [address] | | | | | | [address] | | | | | | [facility] [place] | | | | | | [address] | | | | | | [phone] | | | | | | | [...]
--- OUTSIDE RECORDS SUMMARY | ~2020-05-06 | XMS | Encounter Summary ---
Demographics + + + | Address | [address] | | | [place] [address] | + + + | Home Phone [...] Providers + +------+ + | Care Certified Medical Records Coder Name | Role | Phone | [...] | | | | MRI BRAIN | [place], [place] | | | | | | TUMOR | [address] | | | | | | EVALUATION | Phone: | | | | | | WWO CONTRAST | [phone] | | | | | | | Fax: | | | | | | | [phone] | | + +--------+ + + + [...] (HCC) (Primary Dx); | | | | [address] | [facility] [address] | Encounter for | | | | Pavilion, 4th floor | [facility], [place] | radiotherapy | | | | [place], [place] | [address] | | | | | [address] | [phone] | | | | | [phone] | | | +--------+---------+ + + + [...] Antwon Beard MD at 8:31 AM on 03/07/20. I prepared the chart for today s visit. I have reviewed and verified the above scribed note of my visit with this patient as report ed by Rosibel William. Antwon Beard MD RADIATION ONCOLOGY AT [address], [address] [place] [id number] documented in this en counter Plan of Treatment +--------+---------+ + + + | Date | Type | Specialty | Care Team | Description | +--------+---------+ + + + | 06/26/ | Office | Hematology & | Lissette Jones, | | 2019 | Visit | Oncology | [address] [address] | | | | | [address] | | | | | | [place] | | | | | | [address] | | | | | | [phone] | | | | | | | [...]
--- OUTSIDE RECORDS SUMMARY | ~2020-05-06 | XMS | Encounter Summary ---
Demographics + + + | Address | [address] | | | [place] [address] | + + + | Home Phone [...] + + + | Author | [facility] | | | and Shahram | + + + | Organization | [facility] | | [...] Team Providers + +------+ + | Care Mortician Helper Name | Role | Phone | [...] | | | [address] | [place] [address] | | | | | [place] [address] | | | | | | [phone] | | | +--------+ + + + [...]
--- OUTSIDE RECORDS SUMMARY | ~2020-05-06 | XMS | Encounter Summary ---
Demographics + + + | Address | [address] | | | [place] [address] | + + + | Home Phone [...] Team Providers + +------+ + | Care Quality Assurance Supervisor Chassis Name | Role | Phone | + [...] Pharmacy | | | | | | [address] | | | | | | Loop [place], [place] | | | | | | [address] | | | | | | [phone] | | | +--------+ + + + [...] | 2019 | Visit | Oncology | [address] | | | | | | [address] | | | | | | [place] | | | | | | [address] | | | | | | [phone] | | | | | | | | +--------+---------+ + + + documented as of this encounter Visit Diagnoses Not on filedocumented in this encounter"
--- OUTSIDE RECORDS SUMMARY | ~2020-05-06 | XMS | Encounter Summary ---
Demographics + + + | Address | [address] | | | [place] [address] | + + + | Home Phone [...] Team Providers + +------+ + | Care Formula Room Worker Name | Role | Phone | + +------+ + | Lissette Martinez PA-C | PCP | | + +------+ + Encounter Details +--------+ + + + + | Date | Type | Department | Care Team | Description | +--------+ + + + + | 03/26/ | Pharmacy | Pharmacy @ [facility] | | | | 2019 | Visit | [address] | | | | | | [address] Mailcode: | | | | | | [facility] | | | | | | and Healing, | | | | | | Building [address] | | | | | | [place], [place] | | | | | | [address] | | | +--------+ + + + [...] | 2019 | Visit | Oncology | [address] | | | | | | [address] | | | | | | [place] | | | | | | [address] | | | | | | [phone] | | | | | | | | +--------+---------+ + + + documented as of this encounter Visit Diagnoses Not on filedocumented in this encounter"
--- OUTSIDE RECORDS SUMMARY | ~2020-05-06 | XMS | Encounter Summary ---
Demographics + + + | Address | [address] | | | [place] [address] | + + + | Home Phone [...] Team Providers + +------+ + | Care Sausage Canner Name | Role | Phone | + [...] | | [address] | [facility] [place] | | | | | [place] for [facility] | [address] | | | | | and Healing, | [phone] | | | | | [address] | | | | | | [place], [place] | | | | | | [address] | | | | | | [phone] | | | +--------+ + + + [...] | 2019 | Visit | Oncology | [address] | | | | | | [address] | | | | | | [place] | | | | | | [address] | | | | | | [phone] | | | | | | | | +--------+---------+ + + + documented as of this encounter Visit Diagnoses Not on filedocumented in this encounter"
--- OUTSIDE RECORDS SUMMARY | ~2020-05-06 | XMS | Encounter Summary ---
Demographics + + + | Address | [address] | | | [place] [address] | + + + | Home Phone [...] Providers + +------+ + | Care Passenger Vessel Chef Name | Role | Phone | + [...] Pharmacy | | | | | | [address] | | | | | | Loop [place], [place] | | | | | | [address] | | | | | | [phone] | | | +--------+ + + + [...] | 2019 | Visit | Oncology | [address] | | | | | | [address] | | | | | | [place] | | | | | | [address] | | | | | | [phone] | | | | | | | | +--------+---------+ + + + documented as of this encounter Visit Diagnoses Not on filedocumented in this encounter"
--- OUTSIDE RECORDS SUMMARY | ~2020-05-06 | XMS | Encounter Summary ---
Demographics + + + | Address | [address] | | | [place] [address] | + + + | Home Phone [...] Team Providers + +------+ + | Care Chip Machine Operator Name | Role | Phone | + +------+ + | Lissette Martinez PA-C | PCP | | + +------+ + Encounter Details +--------+ + + + + | Date | Type | Department | Care Team | Description | +--------+ + + + + | 01/08/ | Clinical | Laboratory at [facility] | | | | 2020 | Support | [address] | | | | | Staff | [facility] | | | | | | and Healing, | | | | | | [address] | | | | | | [place], [place] | | | | | | [address] | | | | | | [phone] | | | +--------+ + + + [...] this encounter Progress Odalys Mandujano RN - 01/09/2020 8:40 AM PDT22 gauge PIV placed in patient s right antecubit al space, using an IV start kit. PIV with excellent blood return. Labs drawn and sent. PIV flushed with 10 mL NS without any problems. Sterile transparent dressing applied. Patient t olerated procedure well. documented in this encoun ter Plan of Treatment +--------+---------+ + + + | Date | Type | Specialty | Care Team | Description | +--------+---------+ + + + | 06/26/ | Office | Hematology & | Lissette Jones, | | 2019 | Visit | Oncology | [address] [address] | | | | [address] | | | | | | [place] | | | | | | [address] | | | | | | [phone] | | | | | | | | +--------+---------+ + + + documented as of this encounter Procedures + +--------+ + + + | Procedure Name | Priori | Date/Time | Associated Diagnosis | Comments | | | ty | | | | + +--------+ + + + | CBC AND AUTO DIFF - | Routin | 01/09/2020 | Renal cell | Results for this | | [facility] | e | 8:49 AM | carcinoma of left | procedure are in the | | | | PDT | kidney (HCC) | results section. | + +--------+ + + + | COMPLETE METABOLIC | Routin | 01/09/2020 | Renal cell | Results for this | | PANEL - OLP | e | 8:49 AM | carcinoma of left | procedure are in the | | | | PDT | kidney (HCC) | results section. | + +--------+ + + + | CBC WITH AUTO DIFF - | Routin | 01/09/2020 | Renal cell | Results for this | | OLP | e | 8:49 AM | carcinoma of left | procedure are in the | | | | PDT | kidney (HCC) | results section. | + +--------+ + + + | [facility] - COMPLETE | Routin | 01/09/2020 | Renal cell | Results for this | | METABOLIC SET | e | 8:49 AM | carcinoma of left | procedure are in the | | | | PDT | kidney (HCC) | results section. | + +--------+ + + + documented in this encounter Results [facility] - COMPLETE METABOLIC SET (01/09/2020 8:49 AM PDT) + +---------+ + + + | Component | Value | Ref Range | Performed | Pathologist | | | | | At | Signature | + +---------+ + + + | GLUCOSE, | 94 [...] + + + | BUN, PLASMA | 14 | 6 - 20 mg/dL | [facility] | | | (LAB) | | | LABORATORY | | | | | | SERVICES, | | | | | | [facility] + | | | | | | [facility]ALING | | + +---------+ + + + | CREATININE | 0.85 | 0.60 - 1.10 | [facility] | [...] | | | LABORATORY | | | [place] | | | SERVICES, | | | | | | [facility] | | [facility] | [facility] + | | | | | | HEALING | | + +---------+ + + + | EGFR NON | >60 | >60 mL/min | [facility] [...] +---------+ + + + | POTASSIUM, | 3.8 | 3.4 - 5.0 | [facility] | | | PLASMA | | mmol/L | LABORATORY | | | (LAB) | | | SERVICES, | | | | | | [facility] | [facility] | | [facility] + | | | | | | HEALING | | + +---------+ + + + | CHLORIDE, | 107 | 97 - 108 mmol/L | [facility] [...] +---------+ + + + | CALCIUM, | 8.2 (L) | 8.6 - 10.2 | [facility] | | | PLASMA | | mg/dL | LABORATORY | | | (LAB) | | | SERVICES, | | | | | | [facility] | | | | | [facility] + | | | | | | HEALING | | + +---------+ + + + | CALCIUM(ALB | 9.5 | 8.6 - 10.2 | [facility] | | | CORRECTED) | | mg/dL | LABORATORY | | | | | | SERVICES, | | | | | | [facility] | | [facility] + | | | | | | HEALING | | + +---------+ + + + | BILIRUBIN | 0.8 | 0.3 - 1.2 mg/dL | [facility] | | | TOTAL | | | LABORATORY | | | | | | SERVICES, | | | | | | [facility] | | | [facility] + | | | | | | HEALING | | + +---------+ + + + | TOTAL | 6.1 (L) | 6.4 - 8.2 g/dL | [...] +---------+ + + + | AST(SGOT) | 38 | <=41 U/L | [facility] | | [...] +---------+ + + + | ANION | 15 (H) | 4 - 11 mmol/L | [...] +---------+ + + + | GLOBULIN | 3.7 (H) | 2.3 - 3.5 gm/dL | [...] | | | | | [facility] | | | | | | [...] | + + + + + | [facility] [employer] | [address] | [place] [address] | | | SERVICES, [place] [facility] | | | | | HEALTH + HEALING | | | | + + + + + CBC AND AUTO DIFF - [facility] (01/09/2020 8:49 AM PDT) + + + + + + | Component | Value | Ref Range | Performed | Pathologist | | | | | At | Signature | + + + + + + | WHITE CELL | 2.22 (L) | 3.50 - 10.80 | [facility] | | | COUNT | | K/cu mm | LABORATORY | | | | | | SERVICES, | | | | | | [facility] | [facility] | | [facility] + | | | | | | HEALING | | + + + + + + | RED CELL | 2.58 (L) | 4.00 - 5.20 | [facility] | | | COUNT | | M/cu mm | LABORATORY | | | | | | SERVICES, | | | | | | [facility] | | [facility] + | | | | | | HEALING | | + + + + + + | HEMOGLOBIN | 7.9 (L) | 12.0 - 16.0 | [facility] | | | | | g/dL | LABORATORY | | | | | | SERVICES, | | | | | | [facility] | | | | | [facility] + | | | | | | HEALING | | + + + + + + | HEMATOCRIT | 26.5 (L) | 36.0 - 46.0 % | [facility] | | | | | | LABORATORY | | | | | | SERVICES, | | | | | | [facility] | | | [facility] + | | | | | | HEALING | | + + + + + + | MCV | 102.7 (H) | 80.0 - 100.0 fL | [facility] [...] + + + | RDW SD | 68.9 (H) | 35.1 - 46.3 fL | [facility] | | | | | | LABORATORY | | | | | | SERVICES, | | | | | | [facility] | [facility] | [facility] + | | | | | | HEALING | | + + + + + + | PLATELET | 127 (L) | 150 - 400 K/cu | [...] + + + + | NEUTROPHIL | 69.3 | 50.0 - 70.0 % | [facility] | | | % | | | LABORATORY | | | | | | SERVICES, | | | | | | [facility] | | | | | [facility] + | | | | | | HEALING | | + + + + + + | LYMPHOCYTE | 7.7 (L) | 18.0 - 42.0 % | [facility] | | | % | | | LABORATORY | | | | | | SERVICES, | | | | | | [facility] | [facility] | | | [facility] + | | | | | | HEALING | | + + + + + + | MONOCYTE % | 12.6 (H) | 3.5 - 9.0 % | [facility] | | | | | | LABORATORY | | | | | | SERVICES, | | | | | | [facility] | | | | | [facility] + | | | | | | HEALING | | + + + + + + | EOS % | 9.0 (H) | 1.0 - 3.0 % | [...] + + + + | NEUTROPHIL | 1.54 (L) | 1.80 - 7.70 | [facility] | | | # | | K/cu mm | LABORATORY | | | | | | SERVICES, | | | | | | [facility] | | | | | [facility] + | | | | | | HEALING | | + + + + + + | NEUTROPHIL | 1.54 (L)Comment: | 1.80 - 7.70 | [facility] [...] + + + | EOS # | 0.20 | 0.00 - 0.50 | [facility] | [...] | + + + + + | [facility] | [address] | [place] [address] | | | 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
--- OUTSIDE RECORDS SUMMARY | ~2020-05-06 | XMS | Encounter Summary ---
Demographics + + + | Address | [address] | | | [place] [address] | + + + | Home Phone | | + + + | Preferred Language | Unknown | + + + | Marital Status | | + + + | Muslim Affiliation | 1013 | + + + | Race | or Other | + + + | Ethnic Group | Not or | + + + Author + + + | Author | [facility] | | | and Shahram | + + + | Organization | [facility] | | | and [...] Team Providers + +------+ + | Care Market Asset Protection Manager Name | Role | Phone | + +------+ + PCP | Unavailable | + +------+ + Encounter Details +--------+ + + + + | Date | Type | Department | Care Team | Description | +--------+ + + + + | 05/01/ | Hospital | [facility] | | | | 2004 - | Encounter | MED CTR GENERIC OP | | | | | | CONV DEPT [address] | | | | 07/30/ | | [place], | | | | 2004 | | [place] [address] | | | | | | [phone] | | | +--------+ + + + [...]
--- OUTSIDE RECORDS SUMMARY | ~2020-05-06 | XMS | Encounter Summary ---
Demographics + + + | Address | [address] | | | [place] [address] | + + + | Home Phone [...] | Author | [facility] | | | and Shahram | + + + | Organization | [facility] | [...] Providers + +------+ + | Care Security Software Engineer Name | Role | Phone | + +------+ + | Lissette Martinez | PCP | | | RADHA | | | + +------+ + Encounter Details +--------+ + + + + | Date | Type | Department | Care Team | Description | +--------+ + + + + | 12/11/ | Hospital | [facility] | Aileen Denson | | | 2020 | Encounter | MED CTR RADIATION | MD Khushboo [address] | | | | | ONCOLOGY [address] | [facility], [place] | | | | | [facility], | [address] | | | | | [place] [address] | | | | | | [phone] | | | +--------+ + + + [...]
--- OUTSIDE RECORDS SUMMARY | ~2020-05-06 | XMS | Encounter Summary ---
Demographics + + + | Address | [address] | | | [place] [address] | + + + | Home Phone [...] Team Providers + +------+ + | Care Precision Machinist Name | Role | Phone | + [...] Request | | 2019 | | at [facility] | DO [address] | | | | | [address] | [address] | | | | | [address] Phys[address] | [address] [place], [place] | | | | | [place], [address] [place] [address] | [address] | | | | | [place], [place] | [phone] | | | | | [address] | | | | | | [phone] | | | +--------+--------+ + + + [...] | 2019 | Visit | Oncology | [address] | | | | | | [address] | | | | | | [place] | | | | | | [address] | | | | | | [phone] | | | | | | | | +--------+---------+ + + + documented as of this encounter Visit Diagnoses Not on filedocumented in this encounter"
--- OUTSIDE RECORDS SUMMARY | ~2020-05-06 | XMS | Encounter Summary ---
Demographics + + + | Address | [address] | | | [place] [address] | + + + | Home Phone | | + + + | Preferred Language | Unknown | + + + | Marital Status | | + + + | Samaritan Affiliation | 1013 | + + + | Race | or Other | + + + | Ethnic Group | Not or | + + + Author + + + | Author | [facility] | | | and Shahram | + + + | Organization | [facility] | [...] Team Providers + +------+ + | Care Special Education Resource Room Teacher Name | Role | Phone | [...] | | | ONCOLOGY CLINIC [address] | [place], [place] | | | | | [address] [facility] | [address] | | | | | [place] [address] | | | | | | [phone] | | | +--------+ + + + [...]
--- OUTSIDE RECORDS SUMMARY | ~2020-05-06 | XMS | Encounter Summary ---
Demographics + + + | Address | [address] | | | [place] [address] | + + + | Home Phone [...] Providers + +------+ + | Care Dry Wall Nailer Name | Role | Phone | + [...] | | Clinics at S | [place] [address] [address] | | | | | [facility] [address] | | | | | [facility] for | [place], [place] | | | | | Health and Healing, | [address] | | | | | [address] | [phone] | | | | | [place], [place] | | | | | | [address] | | | | | | [phone] | | | +--------+--------+ + + + [...] and Time Department Ordering/Authorizing 12/26/2019 2:16 PM [facility] Primary Care at [facility] Laurel Morales MD Outpatient Medication Detail Disp Refills enoxaparin 80 mg/0.8 mL subcutaneous syringe 48 mL 0 Sig: Inject 0.8 mL under the skin (SUBC) every twelve hours. Indications: anticoagulation t reatment Sent to pharmacy as: enoxaparin 80 mg/0.8 mL subcutaneous syringe (LOVENOX) Class: eRx Route: subcutaneous Order: [id number] Per [facility] policy, routing encounter to [facility] for review and approval. elephone Encounter - Anai Jimenez - 01/23/2020 10:44 AM PDTRx Refill: Routing encounter to [facility] law for proce ssing.. Pharmacy Name: [facility] Phone #: [phone] -->[facility] : Please review prescription refill request. Thank you. documented in this encount er Plan of Treatment +--------+---------+ + + + | Date | Type | Specialty | Care Team | Description | +--------+---------+ + + + | 06/26/ | Office | Hematology & | Lissette Jones, | | 2019 | Visit | Oncology | [address] [address] | | | | [address] | | | | | | [facility] [place] | | | | | | [address] | | | | | | [phone] | | | | | | | | +--------+---------+ + + + documented as of this encounter Visit Diagnoses Not on filedocumented in this encounter"
--- OUTSIDE RECORDS SUMMARY | ~2020-05-06 | XMS | Encounter Summary ---
Demographics + + + | Address | [address] | | | [place] [address] | + + + | Home Phone [...] Team Providers + +------+ + | Care Apparel Trimmings Sales Representative Name | Role | Phone [...] | | Clinics at S | [place] [address] [address] | 6 week follow up) | | | | [facility] [address] | | | | | [facility] for | [place], [place] | | | | | Health and Healing, | [address] | | | | | [address] | [phone] | | | | | [place], [place] | | | | | | [address] | | | | | | [phone] | | | +--------+ + + + [...] in thi s encounter Plan of Treatment +--------+---------+ + + + | Date | Type | Specialty | Care Team | Description | +--------+---------+ + + + | 06/26/ | Office | Hematology & | Lissette Jones, | | | 2019 | Visit | Oncology | [address] | | | | | | [address] | | | | | | [facility] [place] | | | | | | [address] | | | | | | [phone] | | | | | | | [...]
--- OUTSIDE RECORDS SUMMARY | ~2020-05-06 | XMS | Encounter Summary ---
Demographics + + + | Address | [address] | | | [place] [address] | + + + | Home Phone [...] Team Providers + +------+ + | Care Weighmaster Name | Role | Phone | + [...] | | | | | cancer, | [address] | [address] [facility] | | | | | primary, | [address] | [facility] | | | | | with | Ct | Rd | | | | | metastasis | [place], | [place], [place] | | | | | from kidney | [place] | [address] | | | | | to other | [address] | Phone: | | | | | site, left | Phone: | [phone] | | | | | (HCC) | [phone] | Fax: | | | | | Procedures | Fax: | [phone] | | | | | CONSULT TO | [phone] | | | | | | NEUROSURGERY | | | | | | | MO NEW | | | | | | | PATIENT | | | | | | | LEVEL V [place] | | | | | | | [...] | | | | | cancer, | [address] | [address] [facility] | | | | | primary, | [address] | Frederick Reilly | | | | | with | Ct | Rd | | | | | metastasis | [facility], | [facility], [place] | | | | | from kidney | [place] | [address] | | | | | to other | [address] | Phone: | | | | | site, left | Phone: | [phone] | | | | | ([facility]) | [phone] | Fax: | | | | | Procedures | Fax: | [phone] | | | | | CONSULT TO | [phone] | | | | | | NEUROSURGERY [...] | Radiology | Diagnoses | V[place]y, | [place] | | | | | Kidney | iLssette, | Health & | | | | | cancer, | [address] | [employer] | | | | | primary, | [address]rendan | [address] [facility] | | | | | with | Ct | FREDERICK REILLY | | | | | metastasis | [facility], | ROAD | | | | | from kidney | [place] | [place], [place] | | | | | to other | [address] | [address] | | | | | site, left | Phone: | Phone: | | | | | (HCC) | [phone] | [phone] | | | | | Procedures | Fax: | | | | | | MRI BRAIN | [phone] | | | | | | TUMOR [...] | | Clinics at S | [place] [address] | admission, followed | | | | [address] | by release (scan | | | | [facility] for | [place], [place] | showed tumor) | | | | [employer], | [address] | | | | | [address] | [phone] | | | | | [place], [place] | | | | | | [address] | | | | | | [phone] | | | +--------+ + + + [...] placed for Neurosurgery consult. From: Lissette Jones <[email or web address]> Sent: February 4:27 PM To: Mateo Jean <[email or web address]>; Mike Perez <[email or web address]>; Ashlee Holley <[email or web address]> Cc: Stephanie Bustos <[email or web address]>; Paris Palomo <[email or web address]> Subject: RE: new urgent referral Thanks Mateo! RNC Can you get referral to Dr. Bustos with MRI brain? JV From: Mateo Jean <[email or web address]> Sent: February 4:14 PM To: Lissette Jones <[email or web address]> Cc: Stephanie Bustos <[email or web address]>; Paris Palomo <[email or web address]> Subject: RE: new urgent referral Thanks for the referral. I am unfortunately out of town for the next couple of weeks. My partner Dr. Bustos told me can see the patient next week and would be happy to take care of he shelley Galindo elephone Encounter - Lito Diaz - 02/23/2020 3:51 PM PDTPAS received approval from dept pulp mill supervisor the next a vail won't be until March. Call to patient, agreeable to MRI on Monday 02/26 @ 6 a m.LIZZ went over check-in process to wait outside of building for call from Radiology. LIZZ al so went over visitor rules, one healthy visitor allowed during scan appt.. Patient wanted to know from Dr. Jnoes if she would need to stay in [...] would like follow up by neuro at [facility], and will reach out to them via email. Encounter routed to pig sticker for urgent MRI scheduling. elephone Encounter - Tanya Márquez - 02/23/2020 11:22 AM PDTP t calling to report ER visit at [facility] for possible stroke last night. 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 Pt states that treating ER doctor did reach out and talked to [facility] presentation team member provider. Pt agreeable to call back to discuss this. documented in this encounter Plan of Treatment +--------+---------+ + + + | Date | Type | Specialty | Care Team | Description | +--------+---------+ + + + | 06/26/ | Office | Hematology & | Lissette Jones, | | 2019 | Visit | Oncology | [address] | | | | | [address] | | | | | | [facility] [place] | | | | | | [address] | | | | | | [phone] | | | | | | | [...]
--- OUTSIDE RECORDS SUMMARY | ~2020-05-06 | XMS | Encounter Summary ---
Demographics + + + | Address | [address] | | | [place] [address] | + + + | Home Phone [...] Team Providers + +------+ + | Care Preparation Operator Name | Role | Phone | [...] STARR Mack | | | | | [facility] | Digna Sanches [place], | | | | | [address] | [place] [address] | | | | | [address] | [phone] | | | | | [facility] | | | | | | Physician's | | | | | | [facility] [place], | | | | | | [place] [address] | | | | | | [phone] | | | +--------+ + + + [...] 11/29/2019 3:56 PM PDT----- Message from Dima Otoniel mcdaniels sent at 11/29/2019 3:55 PM PDT ----- Regarding: RE: Schedule Follow Up Have pt scheduled for 12/15 at 9:[address] Hall. LVM informing pt of appt and ask that s he call back to confirm ----- Message ----- From: Maggy Newell Sent: 11/28/2019 1:07 PM PDT To: Peggy Yoon MD, Farrukh Hall MD, # Subject: RE: Schedule Follow Up Or Clinic PAS, Please see Dr. Yoon' and [...] | 2019 | Visit | Oncology | [address] | | | | | | [address] | | | | | | [place] | | | | | | [address] | | | | | | [phone] | | | | | | | | +--------+---------+ + + + documented as of this encounter Visit Diagnoses Not on filedocumented in this encounter"
--- OUTSIDE RECORDS SUMMARY | ~2020-05-06 | XMS | Encounter Summary ---
Demographics + + + | Address | [address] | | | [place] [address] | + + + | Home Phone [...] Team Providers + +------+ + | Care Contact Lens Curve Grinder Name | Role | Phone | [...] STARR Islas | | | | | [facility] for | [facility] | | | | | Health and Healing, | [place], [place] | | | | | [facility] [address] | [address] | | | | | [place], [place] | [phone] | | | | | [address] | | | | | | [phone] | | | +--------+ + + + [...] provider located at the distant site of [facility]. T he patient stated they were located at the originating site of home and were in the state of [place] at the time of the telephone visit. [...] ED from oncology clinic for hypotension. Today, Tlia reports she is doing okay overall. She [...] the clinic. [facility] [address] Mailcode: [place] [address] documented in this encounter Plan of Treatment +--------+---------+ + + + | Date | Type | Specialty | Care Team | Description | +--------+---------+ + + + | 06/26/ | Office | Hematology & | Lissette Jones, | | 2019 | Visit | Oncology | [address] [address] | | | | | [address] | | | | | | [place] | | | | | | [address] | | | | | | [phone] | | | | | | | | +--------+---------+ + + + documented as of this encounter Visit Diagnoses + + | Diagnosis | + + | Closed fracture of first lumbar vertebra, unspecified fracture morphology, initial | | encounter (HCC) - Primary | + + documented in this encounter"
--- OUTSIDE RECORDS SUMMARY | ~2020-05-06 | XMS | Encounter Summary ---
Demographics + + + | Address | [address] | | | [place] [address] | + + + | Home Phone [...] Team Providers + +------+ + | Care Application Specialist Name | Role | Phone | [...] | Renal mass | MD Ash | [facility] [address] | | | | | Procedures | [address] | [address] | | | | | US BIOPSY | [facility] | Digna Sanches [place] | | | | | LIVER WITH | Rd | [facility], | | | | | GUIDANCE | [facility] [place] | 10th Floor | | | | | ABDOMEN | [address] | [facility] [place] | | | | | BIOPSY | Phone: | [phone] | | | | | REQUEST [place] | [phone] | Phone: | | | | | BIOPSY OF | Fax: | [phone] | | | | | LIVER, | [phone] | Fax: | | | | | NEEDLE, | | [phone] | | | | | PERCUTANEOUS | | | | | | | [place] RAFAEL | | | | | | | GUIDE FOR | | | | | | | NEEDLE | | | | | | | PLACEMENT | | | +--------+--------+ + + + + Encounter Details +--------+ + + + + | Date | Type | Department | Care Team | Description | +--------+ + + + + | 08/08/ | Invasive Cardiologist | [facility] | Ash Cavazos MD | Renal mass (Primary | | 2019 | | Clinics at S | [address] | Dx) | | | | [address] | Digna Sanches [place], | | | | | [facility] for | [place] [address] | | | | | Health and Healing, | [phone] | | | | | Building [address] | | | | | | [place], [place] | | | | | | [address] | | | | | | [phone] | | | +--------+ + + + [...] pending pathology results Ash Cavazos MD. PhD Rubber Goods Inspector Hematology and Medical Oncology documented in this encou nter Plan of Treatment +--------+---------+ + + + | Date | Type | Specialty | Care Team | Description | +--------+---------+ + + + | 06/26/ | Office | Hematology & | Lissette Jones, | | | 2019 | Visit | Oncology | [address] | | | | | [address] | | | | | | [place] | | | | | | [address] | | | | | | [phone] | | | | | | | | +--------+---------+ + + + documented as of this encounter Results US BIOPSY [...] the procedure without complication and returned to [facility] | | | for post-procedure [...]
--- OUTSIDE RECORDS SUMMARY | ~2020-05-06 | XMS | Encounter Summary ---
Demographics + + + | Address | [address] | | | [place] [address] | + + + | Home Phone [...] Team Providers + +------+ + | Care Mix Chemist Name | Role | Phone | + +------+ + | Lissette Martinez PA-C | PCP | | + +------+ + Encounter Details +--------+ + + + + | Date | Type | Department | Care Team | Description | +--------+ + + + + | 08/24/ | Pharmacy | Pharmacy @ [facility] | | | | 2019 | Visit | [address] | | | | | [address] Mailcode: | | | | | | [facility] | | | | | | and Healing, | | | | | | [address] | | | | | | [place], [place] | | | | | | [address] | | | +--------+ + + + [...] | 2019 | Visit | Oncology | [address] | | | | | | [address] | | | | | | [place] | | | | | | [address] | | | | | | [phone] | | | | | | | | +--------+---------+ + + + documented as of this encounter Visit Diagnoses Not on filedocumented in this encounter"
--- OUTSIDE RECORDS SUMMARY | ~2020-05-06 | XMS | Encounter Summary ---
Demographics + + + | Address | [address] | | | [place] [address] | + + + | Home Phone [...] Team Providers + +------+ + | Care Wiper Blender Name | Role | Phone | + [...] | | | | cancer, | [place] [address] | | | | | | primary, | [address] | | | | | | with | Ct | | | | | | metastasis | [place], | | | | | | from kidney | [place] | | | | | | to other | [address] | | | | | | site, left | Phone: | | | | | | (HCC) | [phone] | | | | | | Procedures | Fax: | | | | | | NM BONE &/[place] | [phone] | | | | | | JOINT [...] + + | 08/23/ | Ancillary | [facility] | Lissette Jones, | | | 2019 | Orders | Clinics at S | [place] [address] [address] | | | | | [address] | [address] | | | | | [facility] for | [place], [place] | | | | | Health and Healing, | [address] | | | | | [address] | [phone] | | | | | [place], [place] | | | | | | [address] | | | | | | [phone] | | | +--------+ + + + [...] | 2019 | Visit | Oncology | [address] | | | | | [address] | | | | | | [place] | | | | | | [address] | | | | | | [phone] | | | | | | | [...] now presented. | | | |Final signature: aCpo Hebert MD 08/23/2019 5:25 PM | |Preliminary: [...]
--- OUTSIDE RECORDS SUMMARY | ~2020-05-06 | XMS | Encounter Summary ---
Demographics + + + | Address | [address] | | | [place] [address] | + + + | Home Phone [...] Team Providers + +------+ + | Care Healthcare Account Manager Name | Role | Phone [...] Hematology & | Diagnoses | Juan | Karne, | | | | Oncology | Malignant | Lissette | Lissette, | | | | | neoplasm of | RADHA Curran | [address] | | | | | unspecified | [place] | [address] | | | | | kidney, | Family | [place], | | | | | except renal | Medicine | [place] [address] | | | | | pelvis | [address] | Phone: | | | | | Procedures | [address] | [phone] | | | | | [place] NEW | [place], | Fax: | | | | | PATIENT | [place] [address] | [phone] | | | | | LEVEL V [place] | Phone: | | | | | | EST PATIENT | [phone] | | | | | | LEVEL V | Fax: | | | | | | | [phone] | | + +---------+ + + + + Encounter Details +--------+---------+ + + + | Date | Type | Department | Care Team | Description | +--------+---------+ + + + | 11/01/ | Office | [facility] | Lissette Jones, | Kidney cancer, | | 2020 | Visit | Clinics at S | [place] [address] | primary, with | | | | [address] | [address] | metastasis from | | | | [facility] for | [facility] [place] | kidney to other | | | | Health and Healing, | [address] | site, left (HCC) | | | | [address] | [phone] | (Primary Dx) | | | | [place], [place] | | | | | | [address] | | | | | | [phone] | | | +--------+---------+ + + + [...] CREATININE PLASMA (LAB) 10/31/2019 1.60* EGFR - IVORIAN 10/31/2019 40* EGFR NON -IVORIAN 10/31/2019 33* SODIUM, PLASMA (LAB) 10/31/2019 133* [...] | 2019 | Visit | Oncology | [address] | | | | [address] | | | | | | [facility] [place] | | | | | | [address] | | | | | | [phone] | | | | | | | [...]
--- OUTSIDE RECORDS SUMMARY | ~2020-05-06 | XMS | Encounter Summary ---
Demographics + + + | Address | [address] | | | [place] [address] | + + + | Home Phone [...] Team Providers + +------+ + | Care Micro Paleontologist Name | Role | Phone | + [...] | | Clinics at S | [place] [address] [address] | | | | | [address] | [address] | | | | | [facility] for | [place], [place] | | | | | Health and Healing, | [address] | | | | | [address] | [phone] | | | | | [place], [place] | | | | | | [address] | | | | | | [phone] | | | +--------+ + + + [...] | 2019 | Visit | Oncology | [address] | | | | | | [address] | | | | | | [place] | | | | | | [address] | | | | | | [phone] | | | | | | | | +--------+---------+ + + + documented as of this encounter Visit Diagnoses Not on filedocumented in this encounter"
--- OUTSIDE RECORDS SUMMARY | ~2020-05-06 | XMS | Encounter Summary ---
Demographics + + + | Address | [address] | | | [place] [address] | + + + | Home Phone [...] Author + + + | Author | [facility] | | | and Shahram | + + + | Organization | [facility] | | | and [...] Team Providers + +------+ + | Care Workers Compensation Administrator Name | Role | Phone | [...] | | renal pelvis | Ave | [place] [address] | | | | | (HCC) | [place], | Phone: | | | | | [address] | [place] | [phone] | | | | | Procedures | [address] | Fax: | | | | | AL OFFICE | Phone: | [phone] | | | | | OUTPATIENT | [phone] | | | | | | VISIT 25 | Fax: | | | | | | MINUTES | [phone] | | +--------+--------+ + + + + Encounter Details +--------+ + + + + | Date | Type | Department | Care Team | Description | +--------+ + + + + | 12/06/ | [facility] | [facility] | Aileen Denson | | | 2020 | Encounter | MED CTR RADIATION | MD Khushboo [address] | | | | | ONCOLOGY CLINIC [address] | [place], [place] | | | | | [facility] | [address] | | | | | [place] [address] | | | | | | [phone] | | | +--------+ + + + [...] 50,000 Units by | | 0 | 12/25/20 | | | (D3-50) 1.25 mg | [...] | scopolamine | | | 0 | 03/31/20 | | | (TRANSDERM-SCOP) 1 | | | | 20 | | | mg/3 days patch | | | | | | + + + +---------+ + + documented as of this encounter Plan of Treatment Not on filedocumented as of this encounter Visit Diagnoses Not on filedocumented in this encounter
--- OUTSIDE RECORDS SUMMARY | ~2020-05-06 | XMS | Encounter Summary ---
Demographics + + + | Address | [address] | | | [place] [address] | + + + | Home Phone [...] Team Providers + +------+ + | Care Hearing Aid Dispenser Name | Role | Phone | + [...] | 2019 | Visit | Oncology | [address] | | | | | | [address] | | | | | | [place] | | | | | | [address] | | | | | | [phone] | | | | | | | | +--------+---------+ + + + documented as of this encounter Visit Diagnoses Not on filedocumented in this encounter"
--- OUTSIDE RECORDS SUMMARY | ~2020-05-06 | XMS | Encounter Summary ---
Demographics + + + | Address | [address] | | | [place] [address] | + + + | Home Phone [...] Author + + + | Author | [facility] | | | and Shahram | + + + | Organization | [facility] | | | and Marcana [...] Providers + +------+ + | Care Ophthalmic Dispenser Name | Role | Phone | [...] | Secondary | Aileen M, | [address] | | | | | cancer of | [place] [address] | [place], | | | | | bone (HCC) | [address] | [place] [address] | | | | | Metastatic | [place], | Phone: | | | | | renal cell | [place] [address] | [phone] | | | | | carcinoma, | Phone: | Fax: | | | | | unspecified | [phone] | [phone] | | | | | laterality | Fax: | | | | | | (HCC) | [phone] | | | | | | Procedures [...] | Secondary | Aileen Cuello, | [address] | | | | | cancer of | [place] [address] | [place], | | | | | bone (HCC) | [address] | [place] [address] | | | | | Metastatic | [place], | Phone: | | | | | renal cell | [place] [address] | [phone] | | | | | carcinoma, | Phone: | Fax: | | | | | unspecified | [phone] | [phone] | | | | | laterality | Fax: | | | | | | (HCC) | [phone] | | | | | | Procedures [...] + + | 12/12/ | Hospital | [facility] | Aileen Denson | 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
--- OUTSIDE RECORDS SUMMARY | ~2020-05-06 | XMS | Encounter Summary ---
Demographics + + + | Address | [address] | | | [place] [address] | + + + | Home Phone [...] Team Providers + +------+ + | Care Cephalometric Analyst Name | Role | Phone | [...] | | Clinics at S | [place] [address] [address] | | | | | [address] | [address] | | | | | [facility] | [place], [place] | | | | | Health and Healing, | [address] | | | | | [facility] 2 | [phone] | | | | | [place], [place] | | | | | | [address] | | | | | | [phone] | | | +--------+ + + + [...] 11:22 AM PSTCall to Heather to inquire a bout authorization process. Heather states no authorization required from [facility], pt is okay t o schedule. They will reach out to Tila today to get consult set up. elephone Encounter - Opal, Guanako - 020 10:45 AM PSTTeam Coordinator Documentation: Subject: Note TC: Called and spoke with Heather. She reported that she received the referral, but they ar e needing auth phillip. Informed Heather that this office would not be responsible for getting auth. Heather stated that their office does not do auth for incoming referrals and requested this office to complete it. Called [facility] and spoke with Omkar to clarify this process. Per Tiago bryan, [facility] would not be responsible for requesting auth in this case. She noted that [facility] is responsible to obtaining auth for inbound [...] voicemail. Routed to TC elephone Encounter - Maggy Guanako hayden - 11/04/2019 1:35 PM PSTTeam Coordinator Documentation: [...] send the Radiation Referral to [facility] in [place]. Pt called [facility] today and they still have not received the referral. Please fax referr al and insurance authoriation to: [phone]. [facility] phone number: [phone]. Please call pt to let her know [...] | 2019 | Visit | Oncology | [address] | | | | [address] | | | | | | [facility] [place] | | | | | | [address] | | | | | | [phone] | | | | | | | | +--------+---------+ + + + documented as of this encounter Visit Diagnoses Not on filedocumented in this encounter"
--- OUTSIDE RECORDS SUMMARY | ~2020-05-06 | XMS | Encounter Summary ---
Demographics + + + | Address | [address] | | | [place] [address] | + + + | Home Phone [...] Team Providers + +------+ + | Care Shift Supervisor Name | Role | Phone | [...] | | | | | [address] [facility] | | | | | | Rd [place], [place] | | | | | | [address] | | | | | | [phone] | | | | | | | [...] | 2019 | Visit | Oncology | [address] | | | | | | [address] | | | | | | [place] | | | | | | [address] | | | | | | [phone] | | | | | | | | +--------+---------+ + + + documented as of this encounter Visit Diagnoses Not on filedocumented in this encounter"
--- OUTSIDE RECORDS SUMMARY | ~2020-05-06 | XMS | Encounter Summary ---
Demographics + + + | Address | [address] | | | [place] [address] | + + + | Home Phone [...] Team Providers + +------+ + | Care Size Stamper Name | Role | Phone | + [...] | neoplasm of | RADHA Curran | [address] | | | | | unspecified | [place] | [address] | | | | | kidney, | Family | [place], | | | | | except renal | Medicine | [place] [address] | | | | | pelvis | [address] | Phone: | | | | | Procedures | [address] | [phone] | | | | | [place] NEW | [place], | Fax: | | | | | PATIENT | [place] [address] | [phone] | | | | | LEVEL V [place] | Phone: | | | | | | EST PATIENT | [phone] | | | | | | LEVEL V | Fax: | | | | | | | [phone] | | + +---------+ + + + + Encounter Details +--------+ + + + + | Date | Type | Department | Care Team | Description | +--------+ + + + + | 12/11/ | Telephone-S | [facility] | Lissette Ortiz, | | | 2019 | cheduled | Clinics at S | [place] [address] | | | | | [address] | [address] | | | | | [facility] for | [place], [place] | | | | | Health and Healing, | [address] | | | | | [address] | [phone] | | | | | [place], [place] | | | | | | [address] | | | | | | [phone] | | | +--------+ + + + [...] | 2019 | Visit | Oncology | [address] | | | | | | [address] | | | | | | [place], [place] | | | | | | [address] | | | | | | [phone] | | | | | | | [...]
--- OUTSIDE RECORDS SUMMARY | ~2020-05-06 | XMS | Encounter Summary ---
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 Follow-up with medical oncology at [facility] as directed. Follow-up in my office will [...]
--- OUTSIDE RECORDS SUMMARY | ~2020-05-06 | XMS | Encounter Summary ---
Demographics + + + | Address | [address] | | | [place] [address] | + + + | Home Phone [...] Providers + +------+ + | Care Cook Pressure Name | Role | Phone | + [...] | | Clinics at S | [place] [address] | voicemail requesting | | | | [facility] [address] | call back about a | | | | [facility] for | [place], [place] | prescription ) | | | | Health and Healing, | [address] | | | | | [place] [address] | [phone] | | | | | [place], [place] | | | | | | [address] | | | | | | [phone] | | | +--------+--------+ + + + [...] PM PSTCalled to advise pt we sent over new script for 5 mg oxyCODONE. Left voicemail and asked she call with further questions . elephone Encounter - Giovanna Saldivar RN - 10/17/2019 12:44 PM [facility]Call [facility] [place]. Pharmacists st ates Dr. Jones can send over new script for oxyCODONE 5 mg and should be covered by insurance . Routed to Dr Jones for review. P M PSTTelephone Encounter - Ellie Johns MA - 10/14/2019 [...] for call back to team. Routing to [facility] documented in this encounter Plan of Treatment +--------+---------+ + + + | Date | Type | Specialty | Care Team | Description | +--------+---------+ + + + | 06/26/ | Office | Hematology & | Lissette Jones, | | 2019 | Visit | Oncology | [address] | | | | [address] | | | | | | [place] | | | | | | [address] | | | | | | [phone] | | | | | | | | +--------+---------+ + + + documented as of this encounter Visit Diagnoses Not on filedocumented in this encounter"
--- OUTSIDE RECORDS SUMMARY | ~2020-05-06 | XMS | Encounter Summary ---
Demographics + + + | Address | [address] | | | [place] [address] | + + + | Home Phone [...] Team Providers + +------+ + | Care Pneumatic Deicer Inspector Name | Role | Phone | [...] Pharmacy | | | | | | [address] | | | | | | Loop [place], [place] | | | | | | [address] | | | | | | [phone] | | | +--------+ + + + [...] | 2019 | Visit | Oncology | [address] | | | | | | [address] | | | | | | [place] | | | | | | [address] | | | | | | [phone] | | | | | | | | +--------+---------+ + + + documented as of this encounter Visit Diagnoses Not on filedocumented in this encounter"
--- OUTSIDE RECORDS SUMMARY | ~2020-05-06 | XMS | Encounter Summary ---
Demographics + + + | Address | [address] | | | [place] [address] | + + + | Home Phone [...] Team Providers + +------+ + | Care Retread Supervisor Name | Role | Phone | + +------+ + | Lissette Martinez PA-C | PCP | | + +------+ + Encounter Details +--------+ + + + + | Date | Type | Department | Care Team | Description | +--------+ + + + + | 08/24/ | Professor/Nurse Anesthetist | Hematology | Lissette Jones, | | | 2019 | | Oncology Study [address] | [address] | | | | | [address] | [address] | | | | | Mailcode: CH7M | [place], [place] | | | | | [facility] | [address] | | | | | and [place], | [phone] | | | | | [facility] | | | | | | Floor [place], [place] | | | | | | [address] | | | | | | [phone] | | | +--------+ + + + [...] | 2019 | Visit | Oncology | [address] | | | | | | [address] | | | | | | [facility] | | | | | | [address] | | | | | | [phone] | | | | | | | | +--------+---------+ + + + documented as of this encounter Visit Diagnoses Not on filedocumented in this encounter"
--- OUTSIDE RECORDS SUMMARY | ~2020-05-06 | XMS | Encounter Summary ---
Demographics + + + | Address | [address] | | | [place] [address] | + + + | Home Phone [...] Team Providers + +------+ + | Care Chaplain Resident Name | Role | Phone | [...] [address] | | | | | | [address] | | | | | | [address] | | | | | | [place], [place] | | | | | | [address] | | | | | | [phone] | | | +--------+ + + + [...] | 2019 | Visit | Oncology | [address] | | | | | | [address] | | | | | | [place] | | | | | | [address] | | | | | | [phone] | | | | | | | | +--------+---------+ + + + documented as of this encounter Visit Diagnoses Not on filedocumented in this encounter"
--- OUTSIDE RECORDS SUMMARY | ~2020-05-06 | XMS | Encounter Summary ---
Demographics + + + | Address | [address] | | | [place] [address] | + + + | Home Phone [...] Team Providers + +------+ + | Care Flight Communications Specialist Name | Role | Phone | [...] 2020 | sent or is patient to miner pick? | +--------+--------+ + Encounter Details +--------+ + + + + | Date | Type | Department | Care Team | Description | +--------+ + + + + | 10/03/ | Telephone | [facility] | Lissette Jones, | Other (10/10 Appt time | | 2019 | | Clinics at S | [address] | moved to 10:10, has | | | | [facility] [address] | Aflec paperwork | | | | [facility] for | [place], [place] | been sent or is | | | | Health and Healing, | [address] | patient to miner pick?) | | | | [place] [address] | [phone] | | | | | [place], [place] | | | | | | [address] | | | | | | [phone] | | | +--------+ + + + [...] Received completed disability and faxed it to [employer]. A copy has been uploaded into thi [...] She would like her ppw faxed to [phone] and a copy to be mailed to [...] patient's 9:45 appointment to 10:10 on 10/10, aware of time change. PAS called patient [...] | 2019 | Visit | Oncology | [address] | | | | [address] | | | | | | [place] | | | | | | [address] | | | | | | [phone] | | | | | | | | +--------+---------+ + + + documented as of this encounter Visit Diagnoses Not on filedocumented in this encounter"
--- OUTSIDE RECORDS SUMMARY | ~2020-05-06 | XMS | Encounter Summary ---
Demographics + + + | Address | [address] | | | [place] [address] | + + + | Home Phone [...] Team Providers + +------+ + | Care Information Clerk Brokerage Name | Role | Phone | + [...] | | | carcinoma [place] | [place] [address] [address] | [address] [address] | | | | | left kidney | [address] | [address] | | | | | (HCC) | Ct | Center for | | | | | Procedures | [facility] | [facility] and | | | | | [place] INJ | [place] | Healing, | | | | | NIVOLUMAB 1 | [address] | Building 2 | | | | | [place] | Phone: | [place], [place] | | | | | CHM,IV | [phone] | [address] | | | | | INFSN,1 HR | Fax: | Phone: | | | | | [place] CHM,IV | [phone] | [phone] | | | | | INFSN,ADDL | | Fax: | | | | | HR | | [phone] | | | | | nivolumab | [...] + + | 03/12/ | Hospital | [facility] | Onc, Gen [address] | | | 2020 | Encounter | Clinics at S | [address] [place], | | | | | [facility] [address] | [place] [address] | | | | | [facility] for | | | | | | Health and Healing, | | | | | | Building [address] | | | | | | [place], [place] | | | | | | [address] | | | | | | [phone] | | | +--------+ + + + [...] | 2019 | Visit | Oncology | [address] | | | | | | [address] | | | | | | [place] | | | | | | [address] | | | | | | [phone] | | | | | | | | +--------+---------+ + + + documented as of this encounter Visit Diagnoses Not on filedocumented in this encounter"
--- OUTSIDE RECORDS SUMMARY | ~2020-05-06 | XMS | Encounter Summary ---
Demographics + + + | Address | [address] | | | [place] [address] | + + + | Home Phone [...] Team Providers + +------+ + | Care Dough Raiser Name | Role | Phone | + [...] | | | carcinoma of | [place] [address] | [address] | | | | | left kidney | [address] [address] | | | | | (HCC) | Ct | Center for | | | | | 09/19/19-05/08 | [place], | Health and | | | | | 12/2019 | [place] | Healing, | | | | | cycles 1-4 q | [address] | [address] | | | | | 21 days | Phone: | [place], [place] | | | | | Nivolumab - | [phone] | [address] | | | | | Ipilimumab | Fax: | Phone: | | | | | - cycles | [phone] | [phone] | | | | | 5-14 q14 | | Fax: | | | | | days | | [phone] | | | | | Procedures | | | | | | | [place] INJ | | | | | | | NIVOLUMAB 1 | | | | | | | MG [place] INJ | | | | | | | IPILIMUMAB, | | | | | | | 1 MG [place] | | | | | | | CHM,IV | | | | | | | INFSN,1 HR | | | | | | | [place] CHM,IV | | | | | | | INFSN,ADDL | | | | | | | HR [place] CHM | | | | | | [...] + | 09/19/ | Hospital | [facility] | Onc, Gen [address] | | | 2020 | Encounter | Clinics at S | [facility], | | | | | [facility] [address] | [place] [address] | | | | | [facility] for | | | | | | Health and Healing, | | | | | | Building 2 | | | | | | [place], [place] | | | | | | [address] | | | | | | [phone] | | | +--------+ + + + [...] Ipy/Nivo. Patient oriented to unit and treatment fabián perez. New chemotherapy medication patient information and packet given and educated for 15 mins. Positive blood return on IV line prior and after infusion. Medication infused with 250ml N S sidearm bag. Pt tolerated without incident. PIV d/c'd and intact. Pt Alert & Oriented x3, No acute distress, Mood & affect appropriate and Recent & remote memory intact and disch arged with family/driver starting gate. Refer to MAR and Onc Lines and Transfusions doc flowsheet for treatment documented in this encounter Plan of Treatment +--------+---------+ + + + | Date | Type | Specialty | Care Team | Description | +--------+---------+ + + + | 06/26/ | Office | Hematology & | Lissette Jones, | | 2019 | Visit | Oncology | [address] | | | | | | [address] | | | | | | [facility] [place] | | | | | | [address] | | | | | | [phone] | | | | | | | [...] | | | PST | kidney ([facility]) | results section. | + +--------+ + + + | COMPLETE METABOLIC | Routin | 09/19/2019 | Renal cell | Results for this | | PANEL - OLP | e | 9:08 AM | carcinoma of left | procedure are in the | | | | PST | kidney ([facility]) | results section. | + +--------+ + + + | CBC WITH AUTO DIFF - | Routin | 09/19/2019 | Renal cell | Results for this | | OLP | e | 9:08 AM | carcinoma of left | procedure are in the | | | | PST | kidney ([facility]) | results section. | + +--------+ + [...] | | | PST | kidney ([facility]) | results section. | + +--------+ + + + | TSH | Routin | 09/19/2019 | Renal cell | Results for this | | | e | 9:08 AM | carcinoma of left | procedure are in the | | | | PST | kidney ([facility]) | results section. | + +--------+ + + + | CORTISOL, SERUM | Routin | 09/19/2019 | Renal cell | Results for this | | | e | 9:08 AM | carcinoma of left | procedure are in the | | | | PST | kidney ([facility]) | results section. | + +--------+ + [...] A.M. collect(7-9am) = 5.3-22.5 ug/dL P.M. | [facility] | | collect(3-5 pm) = 3.4-16.8 ug/dL | LABORATORY | | | DWIGHT [place]ARTINE[facility] | + + + + + + + + | Performing | Address | City/State/Zipcode | Phone Number | | Organization | | | | + + + + + | JEANETTE [place] | [address] | [place] [address] | | | DWIGHT MARTINEZ | [address] [...] [facility] | [address] | [place] [address] | | | SERVICES, CORE | PARK [...] [facility] | [address] | [place] [address] | | | SERVICES, CORE | [address] | | | + + + + + [facility] - COMPLETE METABOLIC SET (09/19/2019 9:08 AM [...] | | | LABORATORY | | | [place] | | | SERVICES, | | | [...] + + + + + | [facility] [employer] | [address] | [place] [address] | | | SERVICES, [facility] | | | | | HEALTH [...] [facility] | [address] | [place] [address] | | | [facility] | | | | | [...] (NS) 0.9 % IV 90 | | 20 11:32 | | mL/hr | | | [...]
--- OUTSIDE RECORDS SUMMARY | ~2020-05-06 | XMS | Encounter Summary ---
Demographics + + + | Address | [address] | | | [place] [address] | + + + | Home Phone [...] Team Providers + +------+ + | Care Jamb Cutter Name | Role | Phone | [...] | | | | | cancer, | [address] | [address] | | | | | primary, | [facility] | [address] | | | | | with | Ct | Hospital, | | | | | metastasis | [facility], | 10th Floor | | | | | from kidney | [place] | [place], [place] | | | | | to other | [address] | [address] | | | | | site, left | Phone: | Phone: | | | | | (HCC) | [phone] | [phone] | | | | | Procedures | Fax: | Fax: | | | | | CT CHEST, | [phone] | [phone] | | | | | ABDOMEN AND | | | | | | | PELVIS WO IV | | | | | | | CONTRAST | | | | | | | CT CHEST, | | | | | | | ABDOMEN AND | | | | | | | PELVIS W IV | | | | | | | CONTRAST AZ | | | | | | | CAT SCAN OF | | | | | | | CHEST | | | | | | | CONTRAST AZ | | | | | | | CT | | | | | | | ABDOMEN&PELV | | | | | | | IS | | | | | | | W/CONTRAST | | | | | | | [place] CT | | | | | | | SCAN,THORAX, | | | | | | | W/O CONTRAST | | | | | | | [place] CT ABD | | | | | [...] | 2019 | Encounter | Services at [facility] | [address] | | | | | [address] | [address] | | | | | Digna Sanches [facility] | [place], [place] | | | | | [address] | [address] | | | | | [place], [place] | [phone] | | | | | [address] | | | | | | [phone] | | | +--------+ + + + [...] | 2019 | Visit | Oncology | [address] | | | | | | [address] | | | | | | [facility] [place] | | | | | | [address] | | | | | | [phone] | | | | | | | [...]
--- OUTSIDE RECORDS SUMMARY | ~2020-05-06 | XMS | Encounter Summary ---
Demographics + + + | Address | [address] | | | [place] [address] | + + + | Home Phone [...] Team Providers + +------+ + | Care Vegetable Harvest Machine Operator Name | Role | Phone [...] | | | neoplasm [place] | [place] [address] [address] | [address] | | | | | left kidney, | [facility] | Center for | | | | | except | Ct | Health and | | | | | renal pelvis | [place], | Healing, | | | | | Procedures | [place] | Building [address] | | | | | Study IRB: | [id number] | [place], [place] | | | | | | Phone: | [address] | | | | | Study Title: | [phone] | Phone: | | | | | | Fax: | [phone] | | | | | PD-INHIBITOR | [phone] | Fax: | | | | | (NIVOLUMAB) | | [phone] | | | | | AND | [...] | 11/01/ | Lab | Laboratory at [facility] | | Kidney cancer, | | 2019 | | [address] | | primary, with | | | | Center for [facility] | | metastasis from | | | | and Healing, | | kidney to other | | | | [address] | | site, left ([facility]) | | | | [place], [place] | | | | | | [address] | | | | | | [phone] | | | +--------+------+ + + + [...] | 2020 | Visit | Oncology | [address] | | | | | | [address] | | | | | | [place], [place] | | | | | | [address] | | | | | | [phone] | | | | | | | [...] + + documented in this encounter Results [facility] - BASIC METABOLIC SET (11/01/2019 10:13 [...] | | | LABORATORY | | | [facility] | | | SERVICES, | | | [...] MDRD equation recommended by the National | [facility] | | Kidney Disease Education Program. [...] | + + + + + | [facility] | [address] | [place] [address] | | | 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
--- OUTSIDE RECORDS SUMMARY | ~2020-05-06 | XMS | Encounter Summary ---
Demographics + + + | Address | [address] | | | [place] [address] | + + + | Home Phone [...] Author + + + | Author | [facility] | | | and Shahram | + + + | Organization | [facility] | | | and [...] Team Providers + +------+ + | Care Switchboard Clerk Name | Role | Phone | [...] | Secondary | Aileen M, | [address] | | | | | cancer of | [place] [address] | [place], | | | | | bone (HCC) | [address] | [place] [address] | | | | | Metastatic | [place], | Phone: | | | | | renal cell | [place] [address] | [phone] | | | | | carcinoma, | Phone: | Fax: | | | | | unspecified | [phone] | [phone] | | | | | laterality | Fax: | | | | | | (HCC) | [phone] | | | | | | Procedures [...] [facility] | MD Khushboo [address] | cell carcinoma, | | | | [facility] [address] | [place], [place] | unspecified | | | | W [facility] | [address] | laterality (HCC) | | | | [place] [address] | | (Primary Dx); | | | | [phone] | | Secondary cancer of | | [...]
--- OUTSIDE RECORDS SUMMARY | ~2020-05-06 | XMS | Encounter Summary ---
Demographics + + + | Address | [address] | | | [place] [address] | + + + | Home Phone [...] Providers + +------+ + | Care Manager Inventory Management Name | Role | Phone | + +------+ + | Lissette aMrtinez PA-C | PCP | | + +------+ + Reason for Visit + + + | Reason | Comments | + + + | Lab Draw | PIV | + + + Encounter Details +--------+ + + + + | Date | Type | Department | Care Team | Description | +--------+ + + + + | 02/12/ | Clinical | Laboratory at [facility] | | Lab Draw (PIV) | | 2020 | Support | [address] | | | | | Staff | [facility] | | | | | | and Healing, | | | | | | [address] | | | | | | [place], [place] | | | | | | [address] | | | | | | [phone] | | | +--------+ + + + [...] documented as of this encounter Progress Notes Odalys Franco RN - 02/13/2020 9:00 AM PDT22 gauge PIV placed in patient s right antecubit al space by VAT, using an IV start kit. PIV with excellent blood return. Labs drawn and sen t. PIV flushed with 10 mL NS without any problems. Sterile transparent dressing applied. Jaxson landeros tolerated procedure well. documented in this encoun ter Plan of Treatment +--------+---------+ + + + | Date | Type | Specialty | Care Team | Description | +--------+---------+ + + + | 06/26/ | Office | Hematology & | Lissette Jones, | | 2019 | Visit | Oncology | [address] [address] | | | | | [address] | | | | | | [place] | | | | | | [address] | | | | | | [phone] | | | | | | | [...] + + documented in this encounter Results [facility] - COMPLETE METABOLIC SET (02/13/2020 9:24 [...] | | | LABORATORY | | | TUNISIAN | | | SERVICES, | | | [...] equation recommended by the National | [facility] | | Kidney Disease Education Program. Estimated [...] | + + + + + | [facility] | [address] | [place] [address] | | | [facility] | | | | | HEALTH [...] 2.12 (L) | 3.50 - 10.80 | [facility] | | | COUNT | | K/cu mm | LABORATORY | | | | | | 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
--- OUTSIDE RECORDS SUMMARY | ~2020-05-06 | XMS | Encounter Summary ---
Demographics + + + | Address | [address] | | | [place] [address] | + + + | Home Phone [...] Providers + +------+ + | Care Aircraft Machinist Name | Role | Phone | [...] + + | 12/13/ | Telephone | [facility] Primary Care | Yeni, | Post-discharge | | 2020 | | at [facility] | DO [address] | follow-up | | | | [address] | [address] [facility] | | | | | Loop Physician's | [place], [place] | | | | | [place], 3rd floor | [address] | | | | | [place], [place] | [phone] | | | | | [address] | | | | | | [phone] | | | +--------+ + + + [...] perryuld be obtained with possible follow-up at [facility] pending results. Lissette also asked about [...] thyroid labs get followed up. Routing to [facility] to see if they are able to fax my 11/29/2019 discharge summary to Holly Martinez's office in [place], [place]. For reference, Lissette Martinez's number is [phone]. Lissette Jaime DO Internal Medicine, PGY2 Pager [phone] documented in this encounter Plan of Treatment +--------+---------+ + + + | Date | Type | Specialty | Care Team | Description | +--------+---------+ + + + | 06/26/ | Office | Hematology & | Lissette Jones, | | 2019 | Visit | Oncology | [address] [address] | | | | | [address] | | | | | | [place] | | | | | | [address] | | | | | | [phone] | | | | | | | | +--------+---------+ + + + documented as of this encounter Visit Diagnoses Not on filedocumented in this encounter"
--- OUTSIDE RECORDS SUMMARY | ~2020-05-06 | XMS | Encounter Summary ---
Demographics + + + | Address | [address] | | | [place] [address] | + + + | Home Phone [...] Team Providers + +------+ + | Care Repair Electric Motor Assembler Name | Role | Phone | [...] | 2019 | Visit | Oncology | [address] | | | | | | [address] | | | | | | [place] | | | | | | [address] | | | | | | [phone] | | | | | | | | +--------+---------+ + + + documented as of this encounter Visit Diagnoses Not on filedocumented in this encounter"
--- OUTSIDE RECORDS SUMMARY | ~2020-05-06 | XMS | Encounter Summary ---
Demographics + + + | Address | [address] | | | [place] [address] | + + + | Home Phone [...] Team Providers + +------+ + | Care Burr Bench Hand Name | Role | Phone | [...] | | | | MRI BRAIN | [place], [place] | | | | | | TUMOR | [address] | | | | | | EVALUATION | Phone: | | | | | | WWO CONTRAST | [phone] | | | | | | | Fax: | | | | | | | [phone] | | + +--------+ + + + [...] | | | | | carcinoma, | [address] | [address] [facility] | | | | | unspecified | Angelito Rosa | [facility] | | | | | laterality | [address] | [address] [place], | | | | | (HCC) | [place], [place] | [place] | | | | | Procedures | [address] | [address] | | | | | [place] PHONE E/M | Phone: | Phone: | | | | | BY LIP | [phone] | [phone] | | | | | 11-20 MIN | Fax: | Fax: | | | | | [place] 6wk | [phone] | [phone] | | | | | TelehealthOV | [...] [address] | | | | | [address] | [facility] | | | | | Juju, [facility] floor | [place], [place] | | | | | [place], [place] | [address] | | | | | [address] | [phone] | | | | | [phone] | | | +--------+ + + + [...] 03/30/2020: Received cabozantinib MRI BRAIN WWO 04/19/2020 ([facility]) COMPARISON: 02/17/2020, 08/30/2019 IMPRESSION: 1. Again, [...] Keep extra tabs on hand and call 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 They understand they may be resp onsible for the balance after insurance processes the claim. The visit took place via telephone with the provider located at the distant site of [facility]. T he patient stated they were located [...] Antwon Beard MD RADIATION ONCOLOGY AT [address], [address] [place] [phone] documented in this en counter Plan of Treatment +--------+---------+ + + + | Date | Type | Specialty | Care Team | Description | +--------+---------+ + + + | 06/26/ | Office | Hematology & | Lissette Jones, | | | 2019 | Visit | Oncology | [place] [address] | | | | | | [address] | | | | | | [place], [place] | | | | | | [address] | | | | | | [phone] | | | | | | | [...]
--- OUTSIDE RECORDS SUMMARY | ~2020-05-06 | XMS | Encounter Summary ---
Demographics + + + | Address | [address] | | | [place] [address] | + + + | Home Phone [...] Team Providers + +------+ + | Care Cad Programmer Name | Role | Phone | + [...] | | Clinics at S | [place] [address] | | | | | [place] [address] | | | | | [facility] for | [place], [place] | | | | | Health and Healing, | [address] | | | | | Building [address] | [phone] | | | | | [place], [place] | | | | | | [address] | | | | | | [phone] | | | +--------+--------+ + + + [...] garza MD is scheduled on 03/12/20. Last [facility] progress note reviewed. Is there documentation to indicate that medication being r equested has been changed or discontinued? No Allergy list reviewed--Is the medication being requested on the patient's current allergy l ist? No Previous Prescription Details copied below: Date and Time Department Ordering Authorizing 02/28/2020 4:16 PM [facility] Ariana Garcia MA Unknown Outpatient Medication Detail Disp Refills scopolamine 1 mg over 3 days transdermal patch 3 day Class: Historical Med Order: [id number] Per [facility] policy, routing encounter to [facility] for review and approval. elephone Encounter - Anai Jimenez - 02/28/2020 11:48 AM PDTRx Refill: Routing encounter to [place] thanh for proce ssing.. Pharmacy Name: [facility] Phone #: [phone] -->MA : Please review prescription refill request. Thank you. documented in this encount er Plan of Treatment +--------+---------+ + + + | Date | Type | Specialty | Care Team | Description | +--------+---------+ + + + | 06/26/ | Office | Hematology & | Lissette Garza, | | | 2019 | Visit | Oncology | [address] | | | | | | [address] | | | | | | [place] | | | | | | [address] | | | | | | [phone] | | | | | | | | +--------+---------+ + + + documented as of this encounter Visit Diagnoses Not on filedocumented in this encounter"
--- OUTSIDE RECORDS SUMMARY | ~2020-05-06 | XMS | Encounter Summary ---
Demographics + + + | Address | [address] | | | [place] [address] | + + + | Home Phone [...] Providers + +------+ + | Care Finish Production Manager Name | Role | Phone | [...] | 11/20/ | Clinical | Laboratory at [facility] | | | | 2019 | Support | [address] | | | | | Staff | [facility] | | | | | | and Healing, | | | | | | Building [address] | | | | | | [place], [place] | | | | | | [address] | | | | | | [phone] | | | +--------+ + + + [...] 06/26/ | Office | Hematology & | Lisestte Jones, | | | 2019 | Visit | Oncology | [place] [address] | | | | | | [address] | | | | | | [place] | | | | | | [address] | | | | | | [phone] | | | | | | | [...] | | | PDT | kidney ([facility]) | results section. | + +--------+ + + + | [facility] - COMPLETE | Routin | 11/21/2019 | Renal cell | Results for this | | METABOLIC SET | e | 8:50 AM | carcinoma of left | procedure are in the | | | | PDT | kidney ([facility]) | results section. | + +--------+ + + + | FREE T4 | Routin | 11/21/2019 | Renal cell | Results for this | | | e | 8:50 AM | carcinoma of left | procedure are in the | | | | PDT | kidney ([facility]) | results section. | [...] [facility] | [address] | [place] [address] | | | SERVICES, CORE | [address] [...] | + + + + + | [facility] | [address] | [place] [address] | | | SERVICES, CORE | [address] [...] | + + + + + | [facility] | [address] | [place] [address] | | | [address] | [address] | | | + + + + + [facility] - COMPLETE METABOLIC SET (11/21/2019 8:50 AM [...] | | | LABORATORY | | | [place] | | | SERVICES, | | | [...] | + + + + + | [facility] | [address] | [place] [address] | | | SERVICES, BLAIR FOR | | | | | HEALTH [...] | included in the neutrophil count. | [facility] | | | HEALTH + | | | HEALING | + + + + + + + + | Performing | Address | City/State/Zipcode | Phone Number | | Organization | | | | + + + + + | [facility] | [address] | [place] [address] | | | [facility] | | | | | HEALTH + HEALING | | | | + + + + + documented in this encounter Visit Diagnoses + + | Diagnosis | + + | 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
--- OUTSIDE RECORDS SUMMARY | ~2020-05-06 | XMS | Encounter Summary ---
Demographics + + + | Address | [address] | | | [place] [address] | + + + | Home Phone [...] Providers + +------+ + | Care Biological Chemist Name | Role | Phone | + +------+ + | Lissette Martinez PA-C | PCP | | + +------+ + Encounter Details +--------+ + + + + | Date | Type | Department | Care Team | Description | +--------+ + + + + | 11/07/ | MyChart | [facility] | Lissette Jones, | RE: Rx refill | | 2020 | Encounter | Clinics at S | [place] [address] | | | | | [place] [address] | | | | | [facility] for | [place], [place] | | | | | Health and Healing, | [address] | | | | | [address] | [phone] | | | | | [place], [place] | | | | | | [address] | | | | | | [phone] | | | +--------+ + + + [...] Ordering/Authorizing 10/17/2019 2:04 PM Hematology/Medical Oncology at [facility] Lissette mcgraw MD Outpatient Medication [...] Earliest Fill Date: 10/17/2019 Route: oral Order: [id number] E-Prescribing Status: Receipt confirmed by pharmacy (10/17/2019 2:05 PM PST) Controlled Substance Requested: Routing to RN Coordinator for review prior to sending to SOLEDAD Vásquez elephone Encounter - Irene Graham - 11/09/2019 11:25 AM PSTMedication Refill Request Ambulatory Oncology What is the name of the provider for this prescription refill request?: Vuky Medication prescribed by [facility]iative [facility] LIP Name of medication: oxyCODONE (immediate release) *pt states per the [employer] message, she called her pharmacy. Her pharmacy said since she poe s no refills she needs to call us directly. Dose: 5 mg oral tablet Frequency - How often are you taking it?: 4 tablets/day How much of the prescription do you have left - When will you run out?: 6-8 tablets left Pharmacy the patient wants the prescription refilled at: [id number] [place] [facility] [address] [facility] [phone] Is it ok to leave a confidential voicemail?: Patient approves confidential and detailed mes sages left on answering machine and voicemail. Patient reminded of Clinic Refill Policy: 48-72 business hours to process refill requests. Routed to [facility] documented in this encounte r Plan of Treatment +--------+---------+ + + + | Date | Type | Specialty | Care Team | Description | +--------+---------+ + + + | 06/26/ | Office | Hematology & | Lissette Jones, | | | 2019 | Visit | Oncology | [address] | | | | | | [address] | | | | | | [place] | | | | | | [address] | | | | | | [phone] | | | | | | | | +--------+---------+ + + + documented as of this encounter Visit Diagnoses Not on filedocumented in this encounter"
--- OUTSIDE RECORDS SUMMARY | ~2020-05-06 | XMS | Encounter Summary ---
Demographics + + + | Address | [address] | | | [place] [address] | + + + | Home Phone [...] Providers + +------+ + | Care Assistant Golf Coach Name | Role | Phone | [...] Pharmacy | | | | | | [address] | | | | | | [place], [place] | | | | | | [address] | | | | | | [phone] | | | +--------+ + + + [...] | 2019 | Visit | Oncology | [address] | | | | | | [address] | | | | | | [place] | | | | | | [address] | | | | | | [phone] | | | | | | | | +--------+---------+ + + + documented as of this encounter Visit Diagnoses Not on filedocumented in this encounter"
--- OUTSIDE RECORDS SUMMARY | ~2020-05-06 | XMS | Encounter Summary ---
Demographics + + + | Address | [address] | | | [place] [address] | + + + | Home Phone [...] Author + + + | Author | [facility] | | | and Shahram | + + + | Organization | [facility] | | | and [...] Team Providers + +------+ + | Care Briar Shop Supervisor Name | Role | Phone | + +------+ + PCP | Unavailable | + +------+ + Encounter Details +--------+ + + + + | Date | Type | Department | Care Team | Description | +--------+ + + + + | 12/27/ | Hospital | [facility] | | | | 2002 - | Encounter | MED CTR CANCER | | | | | | CENTER [address] | | | | 05/04/ | | [place] | | | | 2002 | | [address] | | | | | | [phone] | | | +--------+ + + + [...]
--- OUTSIDE RECORDS SUMMARY | ~2020-05-06 | XMS | Encounter Summary ---
Demographics + + + | Address | [address] | | | [place] [address] | + + + | Home Phone [...] Team Providers + +------+ + | Care And Rescue Fire Fighter Crash Fire Name | Role | Phone | + [...] 2019 | Visit | Oncology | [address] | | | | | | [address] | | | | | | [place] | | | | | | [address] | | | | | | [phone] | | | | | | | | +--------+---------+ + + + documented as of this encounter Visit Diagnoses Not on filedocumented in this encounter"
--- OUTSIDE RECORDS SUMMARY | ~2020-05-06 | XMS | Encounter Summary ---
Demographics + + + | Address | [address] | | | [place] [address] | + + + | Home Phone [...] Team Providers + +------+ + | Care Carver And Checkerer Specials Name | Role | Phone | + [...] | | | | US BIOPSY | [facility] | [address] RE[address] | | | | | LIVER WITH | Rd | [facility], | | | | | GUIDANCE | [place], [place] | 10th Floor | | | | | ABDOMEN | [address] | [place], [place] | | | | | BIOPSY | Phone: | [address] | | | | | REQUEST MS | [phone] | Phone: | | | | | BIOPSY OF | Fax: | [phone] | | | | | LIVER, | [phone] | Fax: | | | | | NEEDLE, | | [phone] | | | | | PERCUTANEOUS | | | | | | | MS SONO | | | | | | [...] + + | 08/16/ | Hospital | [facility] [address] | Monica Wylie MD | | | 2019 | Encounter | [address] | [address] | | | | | [address] [facility] | Digna Sanches [place], | | | | | [place], [place] | [place] [address] | | | | | [address] | [phone] | | | | | [phone] | | | +--------+ + + + [...] Discharge Instructions Instructions Sheri Tomas RN - 08/15/2019Gilman Care Instructions: Liver Biopsy Diet and Medications: Resume your normal diet and take your usual medications unless the [facility] care provider who ordered your biopsy instructed otherwise. Do not start taking blood thinners or antiplatelet medications without clear instructions f rom the health care provider who ordered your biopsy. If you need medication for pain after your procedure, take prescription or [id number] pain medications as instructed by the health [...] Call and ask to speak with a [facility][1] radiology nurse. After 4:30 pm: Call the [facility] power shear operator at and ask to have the [facility] resident economic history teacher paged. If you feel you require immediate [...] | 2019 | Visit | Oncology | [address] | | | | | | [address] | | | | | | [facility] [place] | | | | | | [address] | | | | | | [phone] | | | | | | | [...] | [facility] | | Hodgkin's lymphoma in 2001 now with large left renal tumor and [...] plan as documented in | | | [facility]. COMPARISON: Outside CT 07/27/2019 TECHNIQUE: After | [...] the procedure without complication and [facility] | | | for post-procedure monitoring. Moderate [...] BIOPSY. HISTORY: History of Hodgkin's lymphoma in 2001 now with large | | left renal [...] Sedation/Analgesia plan | | as documented in [facility]. COMPARISON: Outside CT 07/27/2019 TECHNIQUE: After a [...] renal cell carcinoma, | | OF | [facility] | | | clear cell type [see [...] PathologistPathology, | | | | | | [facility] | | | | | [...] | | | | | | gy, [facility] & | | | | | | [facility] | | | | | | electronic [...] | | | | | [id number] Anita Pimentel | | | | | | | | | | + + + + + + | Gross | Received is one specimen | | [facility] | | | Description | in 2 containers labeled | | DEPARTMENT | | | | with the patient's name | | OF | | | | (initials AAH) and | | PATHOLOGY | | | | medical record number | | | | | | [id number].A. Liver, : | | | | | [...] flow | | | | | | cytometry.ARK | | | | + + + [...] + + + | [facility] | [address] | [place] [address] | | | PATHOLOGY | [address] [...] | | | Thu08/16/19 at 1557, Until Thu | | | 08/17/19 at 0011, mild [...] 3:21 | | | | | Starting 08/16/19 at 1521, | | PM PST | | | | | Until 08/16/19 at 1521 | | | | [...] | | | NEEDED, 1 dose, Starting Tue | | | 08/16/19 at 1557, Until Wed | | | 08/17/19 at 0011, | | | nausea/vomiting, first line | | + +---+ | | | + +---+ documented in this encounter
--- OUTSIDE RECORDS SUMMARY | ~2020-05-06 | XMS | Encounter Summary ---
Demographics + + + | Address | [address] | | | [place] [address] | + + + | Home Phone [...] Team Providers + +------+ + | Care Piano Builder Name | Role | Phone | [...] + + + | Authorized | | Radiation | Diagnoses | Santoli, | Chirag, | | | | Oncology | 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, | [address] | [address] | | | | | unspecified | [address] | [facility] | | | | | laterality | [address] | [address] [place], | | | | | ([facility]) | [place], [place] | [place] | | | | | Procedures | [address] | [address] | | | | | CONSULT TO | Phone: | Phone: | | | | | RADIATION | [phone] | [phone] | | | | | ONCOLOGY | Fax: | Fax: | | | | | Consult and | [phone] | [phone] | | | | | OVs | | | + +--------+ + + [...] | | | | | carcinoma, | [address] | [address] | | | | | unspecified | [address] | Avenue | | | | | laterality | [address] | [place], [place] | | | | | ([facility]) | [place] | [address] | | | | | Procedures | [address] | Phone: | | | | | CONSULT TO | Phone: | [phone] | | | | | NEUROSURGERY | [phone] | Fax: | | | | | | Fax: | [phone] | | | | | | [phone] | | + +--------+ + + + [...] cell | Kwabena Nettles MD | [address] [address] | | | | | carcinoma, | [address] | | | | | unspecified | [address] | [place] for | | | | | laterality | [address] | [facility] and | | | | | (HCC) | [place] | Healing, | | | | | staging | [address] | Building [address], | | | | | kidney | Phone: | 3rd Floor | | | | | cancer | [phone] | [place], [place] | | | | | Procedures | Fax: | [address] | | | | | MRI BRAIN | [phone] | Phone: | | | | | WWO CONTRAST | | [phone] | | | | | IA MRI | | Fax: | | | | | BRAIN COMBO | | [phone] | +--------+--------+ + + + + Encounter Details +--------+ + + + + | Date | Type | Department | Care Team | Description | +--------+ + + + + | 02/22/ | Travel Counselor | [facility] | Kwabena Sanchez, | Renal cell | | 2020 | | [facility] | [address] | carcinoma, | | | | [address], | [address] | unspecified | | | | [place], [place] | [place], [place] | laterality (HCC) | | | | [address] | [address] | (Primary Dx) | | | | [phone] | [phone] | | | | | | | [...] Sanchez MD - 02/23/2020 7:48 AM PDT [email or web address] [place] [facility] Oncology [address] [place] [address], [address] [place] [address] tel [phone] fax [phone] TELEPHONE NOTE Patient: Tila Altman Date: 02/23/2020 : 1965 AGE: 54 y.o. Attending Physician: Kwabena Sanchez MD Chief Complaint: Brain metastasis Interval History: Called overnight by [facility] ED with patient on imaging having new brain metastasis. Impression: Brain metastasis Plan: Decadron started and patient discharged home from ED. MRI brain ordered. Will consult lamont rosurgery and radiation therapy. Kwabena Sanchez MD Department of Oncology/Hematology [facility] CANCER [place] at [place] [address] [facility] [address] [place] [address] documented in this e ncounter Plan of Treatment +--------+---------+ + + + | Date | Type | Specialty | Care Team | Description | +--------+---------+ + + + | 06/26/ | Office | Hematology & | Lissette Jones, | | 2019 | Visit | Oncology | [address] | | | | | | [address] | | | | | | [place], [place] | | | | | | [address] | | | | | | [phone] | | | | | | | | +--------+---------+ + + + documented as of this encounter Results MRI BRAIN [...] new since prior MRI from | | 2018. DSC perfusion analysis is precluded due to [...]
--- OUTSIDE RECORDS SUMMARY | ~2020-05-06 | XMS | Encounter Summary ---
Demographics + + + | Address | [address] | | | [place] [address] | + + + | Home Phone [...] | Author | [facility] | | | and Shahram | + + + | Organization | [facility] | | | and Marcana [...] Team Providers + +------+ + | Care Phys Asst Name | Role | Phone | + +------+ + | Lissette Martinez | PCP | | | RADHA | | | + +------+ + Reason for Referral Evaluate & Treat (Routine) + + + + + + + | Status | Reason | Specialty | Diagnoses / | Referred By | Referred To | | | | | Procedures | Contact | Contact | + + + + + + + | Authorized | Specialty | Physical | Diagnoses | [...] | | | | carcinoma, | [place] [address] | [place], [place] | | | | | unspecified | Phone: | [address] | | | | | laterality | [phone] | Phone: | | | | | (HCC) | Fax: | [phone] | | | | | Secondary | [phone] | Fax: | | | | | cancer of | | [phone] | | | | | bone (HCC) | | | | | | | Procedures | | | | | | | PT SAH | | | + + + + + + + Encounter Details +--------+ + + + + | Date | Type | Department | Care Team | Description | +--------+ + + + + | 12/26/ | Orders Only | [facility] | Aileen Denson | Impaired mobility | | 2020 | | MED CTR RADIATION | MD Khushboo [address] | (Primary Dx); | | | | ONCOLOGY CLINIC [address] | [place], [place] | Metastatic renal | | | | [address] [facility] | [address] | cell carcinoma, | | | | [place] [address] | | unspecified | | | | [phone] | | laterality (HCC); | | | [...] | + + +--------+ + + | [facility] | Outpatient | Routin | Impaired mobility [...]
--- OUTSIDE RECORDS SUMMARY | ~2020-05-06 | XMS | Encounter Summary ---
Demographics + + + | Address | [address] | | | [place] [address] | + + + | Home Phone [...] | Author | [facility] | | | and Shahram | + + + | Organization | [facility] | [...] Providers + +------+ + | Care Registered Nurse Maternal Child Name | Role | Phone | + +------+ + | Lissette Martinez | PCP | | | RADHA | | | + +------+ + Encounter Details +--------+ + + + + | Date | Type | Department | Care Team | Description | +--------+ + + + + | 12/06/ | Hospital | [facility] | Aileen Denson | | | 2020 | Encounter | MED CTR RADIATION | MD [address]ush[address] | | | | | ONCOLOGY [address] | [facility], [place] | | | | | [facility], | [address] | | | | | [place] [address] | | | | | | [phone] | | | +--------+ + + + [...]
--- OUTSIDE RECORDS SUMMARY | ~2020-05-06 | XMS | Encounter Summary ---
Demographics + + + | Address | [address] | | | [place] [address] | + + + | Home Phone | | + + + | Preferred Language | Unknown | + + + | Marital Status | | + + + | Latter-Day Affiliation | 1013 | + + + | Race | or Other | + + + | Ethnic Group | Not or | + + + Author + + + | Author | [facility] | | | and Shahram | + + + | Organization | [facility] | [...] Team Providers + +------+ + | Care Nuclear Spectroscopist Name | Role | Phone | + [...] MED CTR GENERIC OP | MD Jodie [address] | | | | | CONV DEPT [address] | [place], [place] | | | | | [place], | [address] | | | | | [place] [address] | [phone] | | | | | [phone] | | | +--------+ + + + [...]
--- OUTSIDE RECORDS SUMMARY | ~2020-05-06 | XMS | Encounter Summary ---
Demographics + + + | Address | [address] | | | [place] [address] | + + + | Home Phone [...] + +------+ + | Care Registered Nurse Behavioral Health Name | Role | Phone | + [...] | | | | | metastases | [address] | [address] | | | | | ([facility]) | [address] | [address] | | | | | Procedures | [address] | [address] [place], | | | | | SIMULATION | [place] | [place] | | | | | IMAGING | [address] | [address] | | | | | | Phone: | Phone: | | | | | | [phone] | [phone] | | | | | | Fax: | Fax: | | | | | | [phone] | [phone] | +--------+--------+ + + + + Reason [...] | | | | | metastases | [address] | [address] [facility] | | | | | ([facility]) | [address] | [address] | | | | | Procedures | [address] | [address] [place], | | | | | SIMULATION | [place] | [place] | | | | | IMAGING | [address] | [address] | | | | | | Phone: | Phone: | | | | | | [phone] | [phone] | | | | | | Fax: | Fax: | | | | | | [phone] | [phone] | +--------+--------+ + + + + Encounter Details +--------+ + + + + | Date | Type | Department | Care Team | Description | +--------+ + + + + | 03/06/ | Hospital | Radiation Oncology | | | | 2020 | Encounter | at [facility] [address] | | | | | | [address] | | | | | | [address] | | | | | | [place], [place] | | | | | | [address] | | | | | | [phone] | | | +--------+ + + + [...] | 2019 | Visit | Oncology | [address] | | | | | | [address] | | | | | | [place] | | | | | | [address] | | | | | | [phone] | | | | | | | [...]
--- OUTSIDE RECORDS SUMMARY | ~2020-05-06 | XMS | Encounter Summary ---
Demographics + + + | Address | [address] | | | [place] [address] | + + + | Home Phone [...] | Author | [facility] | | | and Shahram | + + + | Organization | [facility] | | | and Marcana [...] Providers + +------+ + | Care Retail Office Associate Name | Role | Phone | + +------+ + PCP | Unavailable | + +------+ + Encounter Details +--------+ + + + + | Date | Type | Department | Care Team | Description | +--------+ + + + + | 08/29/ | Hospital | [facility] | | | | 2001 - | Encounter | MED CTR CANCER | | | | | | CENTER [address] | | | | 12/26/ | | [place] | | | | 2002 | | [address] | | | | | | [phone] | | | +--------+ + + + [...]
--- OUTSIDE RECORDS SUMMARY | ~2020-05-06 | XMS | Encounter Summary ---
Demographics + + + | Address | [address] | | | [place] [address] | + + + | Home Phone [...] Providers + +------+ + | Care Dough Scaler And Mixer Name | Role | Phone | [...] | 2019 | Visit | Oncology | [address] | | | | | | [address] | | | | | | [place] | | | | | | [address] | | | | | | [phone] | | | | | | | | +--------+---------+ + + + documented as of this encounter Visit Diagnoses Not on filedocumented in this encounter"
--- OUTSIDE RECORDS SUMMARY | ~2020-05-06 | XMS | Encounter Summary ---
Demographics + + + | Address | [address] | | | [place] [address] | + + + | Home Phone [...] Team Providers + +------+ + | Care Anesthesia Associate Name | Role | Phone | [...] | | | | | carcinoma, | [address] | [address] | | | | | unspecified | Angelito Rosa | [facility] | | | | | laterality | [address] | Rd [place], | | | | | ([facility]) | [place], [place] | [place] | | | | | Procedures | [address] | [address] | | | | | CONSULT TO | Phone: | Phone: | | | | | RADIATION | [phone] | [phone] | | | | | ONCOLOGY | Fax: | Fax: | | | | | Consult and | [phone] | [phone] | | | | | OVs | | | + +--------+ + + + + Encounter Details +--------+ + + + + | Date | Type | Department | Care Team | Description | +--------+ + + + + | 02/23/ | Video/TeleH | Radiation Oncology | Antwon Beard, | | | 2020 | ealth-Sched | at [facility] [address] | [address] [facility] | | | | danielle | [address] | [facility] | | | | | Ishan, 4th floor | [place], [place] | | | | | [place], [place] | [address] | | | | | [address] | [phone] | | | | | [phone] | | | +--------+ + + + [...] 150 mcg po qD) She presented to [facility] ED on 02/22/2020 with findings of left facial weakness and se izure. She was found on contrasted CT to have the following new LEFT frontal brain metastasi s. Today Speech is still slurred. Steroids: Dex 4mg po BID Sister: James (on video visit today) MRI: scheduled for 02/26 Prior RT on back: Grayson's (Dianna: treatments) -- Improved back symptoms, still feels soreness - but no pain Referred for evaluation for possible radiotherapy to her LEFT frontal metastasis. -- Evaluation planned later today in concert with Dr. Bustos. Pertinent Positives in ROS: right facial and leg weakness, slurred speech, back pain Prior radiation: chest RT (2001), Palliative RT (Grayson to L2 vertebral body) Pacemaker: N/A The patient is being seen today in consultation for consideration of radiotherapy options. Past Medical History: Patient Active Problem List Diagnosis Date Noted Adverse drug reaction 11/24/2019 Overview Note: Checkpoint inhibitors Hyperthyroidism 11/22/2019 Hypotension, unspecified hypotension type 11/21/2019 Closed compression fracture of body of L1 vertebra (HCC) 11/21/2019 Hypothyroidism, unspecified type 11/21/2019 Renal cell carcinoma, unspecified laterality ([facility]) 11/21/2019 Hypotension 08/31/2019 Proteinuria 08/30/2019 Hematuria 08/30/2019 JONO (acute kidney injury) (HCC) 08/30/2019 Elevated blood uric acid level 08/30/2019 Normocytic anemia 08/30/2019 Leukopenia 08/30/2019 Closed compression fracture of L2 lumbar vertebra, initial encounter ([facility]) 08/25/2019 Renal cell carcinoma of left kidney [...] on file Occupational History 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 She poe s family nearby ([place]) and will remain on steroids while we [...] pelayo located at the distant site of [facility]. The patient stated they were located at the [facility] site of outlook and were in the [facility] at the time of the virtual visit. T he names of all additional persons participating in the virtual visit and their roles are: N /A. I have spent a total of 35 minutes on this patient's care today. This time includes the vi rtual visit [id number] time with the patient as well as time spent reviewing patient recor ds, coordinating/communicating with care teams and documenting the patient visit. Antwon Beard MD, PhD Integrity Manager Radiation Medicine CC: A copy of this [...] | 2019 | Visit | Oncology | [address] | | | | | | [address] | | | | | | [facility] [place] | | | | | | [address] | | | | | | [phone] | | | | | | | | +--------+---------+ + + + documented as of this encounter Visit Diagnoses + + | Diagnosis | + + | Brain metastases (HCC) - Primary Secondary malignant neoplasm of brain and spinal | | cord | + + documented in this encounter"
--- OUTSIDE RECORDS SUMMARY | ~2020-05-06 | XMS | Encounter Summary ---
Demographics + + + | Address | [address] | | | [place] [address] | + + + | Home Phone [...] Team Providers + +------+ + | Care Res Counselor Name | Role | Phone | + [...] | | | | cancer, | [place] [address] [address] | | | | | | primary, | [place] | | | | | | with | Ct | | | | | | metastasis | [place] | | | | | | from kidney | [place] | | | | | | to other | [address] | | | | | | site, left | Phone: | | | | | | ([facility]) | [phone] | | | | | | Procedures | Fax: | | | | | | CONSULT TO | [phone] | | | | | | RADIATION [...] | | Clinics at S | [place] [address] [address] | | | | | [address] | | | | | [facility] for | [place], [place] | | | | | Health and Healing, | [address] | | | | | [address] | [phone] | | | | | [place], [place] | | | | | | [address] | | | | | | [phone] | | | +--------+ + + + [...] this encounter Miscellaneous Notes Telephone Encounter - Jeremy Tomas RN - 11/07/2019 4:31 PM PSTReviewed lab results with Dr Jayson Jones -- she will check K+ again when pt is here on 11/20. Call to pt to advise of plan, she was agreeable. elephone Encounter - Guanako Joseph - 11/07/2019 4:20 PM PSTTeam Coordinator Documentation: Subject: Note TC: Lab results received and forwarded to the RNC via outlook. -->Note to RNC: HOMA elephone Encounter - Guanako James - 11/07/2019 10:28 AM PSTTeam Coordinator Documentation: Subject: Note TC: Lab orders faxed off off to [facility] in [facility] [place]. Will fu later this evening on results. -->Note to RNC: HOMA ddendum Note - Paul Tomas RN - 11/07/2019 9:55 AM PST Addended by: JEREMY TOMAS RN on: 11/07/2019 09:55 AM Modules accepted: Orders elephone Encounter - Jeremy Oglesby RN - 11/07/2019 9:33 AM PSTCalled pt who reports she went to ED over weekend wh ere they administered IVF and 2 doses kayexolate. She vomited after last kayexolate dose and reports nausea for 1.5 days following ED visit. Confirms she is taking lasix as prescribed. Fatigue is ongoing and not improved after ED visit. Denies cardiac symptoms including SOB, chest pain or irregular heartbeat. Discussed with Dr. Jones who would like pt to have labs drawn today or tomorrow and IVF loca lly, if indicated. Spoke to pt -- she will have labs drawn this afternoon. CMP orders routed to TC. Electronic ally signed by Jeremy Tomas RN at 11/07/2019 9:54 AM PSTTelephone Encounter - Ashlee Dow R N - 11/04/2019 6:58 PM PSTDr. Jones returned page. Per her, re-order kayexolate 60 mL x 4 da ys if Pt not symptomatic, and then recheck [...] has no further questions at this time. [place] [facility] to follow up after discharge. 20 [...] Crawley MA - 11/04/2019 4:30 PM PSTCalled [facility] to [facility] an [facility] [...] Johns MA - 11/04/2019 1:08 PM PSTCalled [facility] [place] (P. [phone]; F. [phone]). Pt has not come in today yet to get labs drawn. Called and spoke with pt to get clarification on when they would be going in to get labs. P t stated she will be going in at 3:00pm today 11/04 to get her labs drawn. Also put in a new order for Radiation Oncology at [facility] Fx: [phone]. Routing to Obey Peña for faxing. elephone [...] she would like lab orders sent to [facility] in [place], [place] (P. [phone]; F. [phone]). -->Note to RNC: HOMA ddendum Note - [...] -->Note to RNC: HOMA elephone Encounter - Jeremy Saldivar RN - 11/01/2019 12:02 PM PSTReceived critical lab value from central lab. K= 6.[address] Jones verbally notified. Pt will have labs redrawn on 11/04. RNC to f/u wi th results. documented in this encounter Plan of Treatment +--------+---------+ + + + | Date | Type | Specialty | Care Team | Description | +--------+---------+ + + + | 06/26/ | Office | Hematology & | Lissette Jones, | | 2019 | Visit | Oncology | [address] [address] | | | [address] | | | | | | [place] | | | | | | [address] | | | | | | [phone] | | | | | | | [...]
--- OUTSIDE RECORDS SUMMARY | ~2020-05-06 | XMS | Encounter Summary ---
Demographics + + + | Address | [address] | | | [place] [address] | + + + | Home Phone [...] Team Providers + +------+ + | Care Hydrologic Modeler Name | Role | Phone | + [...] + + | 09/20/ | Telephone | [facility] | Lissette Jones, | Lab Results (K and | | 2019 | | Clinics at S | [place] [address] | TSH) | | | | [address] | | | | | [facility] for | [place], [place] | | | | | Health and Healing, | [address] | | | | | [facility] 2 | [phone] | | | | | [place], [place] | | | | | | [address] | | | | | | [phone] | | | +--------+ + + + [...] released the results for her review in [employer], but we will also fax the labs to Ms. Martinez for follow up. We discussed that immune therapy can affect thyroid function, but this result is not d/t tr eatment. We will continue to monitor the levels. Routing to TC. documented in this enc ounter Plan of Treatment +--------+---------+ + + + | Date | Type | Specialty | Care Team | Description | +--------+---------+ + + + | 06/26/ | Office | Hematology & | Lissette Jones, | | 2019 | Visit | Oncology | [address] [address] | | | | [address] | | | | | | [place] | | | | | | [address] | | | | | | [phone] | | | | | | | | +--------+---------+ + + + documented as of this encounter Visit Diagnoses Not on filedocumented in this encounter"
--- OUTSIDE RECORDS SUMMARY | ~2020-05-06 | XMS | Encounter Summary ---
Demographics + + + | Address | [address] | | | [place] [address] | + + + | Home Phone [...] Providers + +------+ + | Care Director Rehabilitation Program Name | Role | Phone | + [...] | | | carcinoma [place] | [place] [address] [address] | [address] | | | | | left kidney | [address] [address] | | | | | (HCC) | Ct | Center for | | | | | Procedures | [place], | [facility] and | | | | | [place] | [place] | Healing, | | | | | NIVOLUMAB 1 | [address] | [address] | | | | | [place] | Phone: | [place], [place] | | | | | CHM,IV | [phone] | [address] | | | | | INFSN,1 HR | Fax: | Phone: | | | | | [place] CHM,IV | [phone] | [phone] | | | | | INFSN,ADDL | | Fax: | | | | | [place] | | [phone] | | | | | nivolumab | [...] Encounter | Clinics at S | [address] [place], | | | | | [facility] [address] | [place] [address] | | | | | [facility] for | | | | | | Health and Healing, | | | | | | [address] | | | | | | [place], [place] | | | | | | [address] | | | | | | [phone] | | | +--------+ + + + [...] might be different from t silva original. Assessment Patient has hx of met. [...] | 2019 | Visit | Oncology | [address] | | | | | | [address] | | | | | | [place] | | | | | | [address] | | | | | | [phone] | | | | | | | [...]
--- OUTSIDE RECORDS SUMMARY | ~2020-05-06 | XMS | Encounter Summary ---
Demographics + + + | Address | [address] | | | [place] [address] | + + + | Home Phone [...] Team Providers + +------+ + | Care Real Estate Valuer Name | Role | Phone | + [...] | 10/10/ | Clinical | Laboratory at [facility] | | Lab Draw | | 2020 | Support | [address] | | | | | Staff | [facility] | | | | | | and Healing, | | | | | | [address] | | | | | | [place], [place] | | | | | | [address] | | | | | | [phone] | | | +--------+ + + + [...] | 2019 | Visit | Oncology | [address] | | | | | | [address] | | | | | | [place] | | | | | | [address] | | | | | | [phone] | | | | | | | [...] | | | PST | kidney ([facility]) | results section. | + +--------+ [...] | | | PST | kidney ([facility]) | results section. | + +--------+ + + + | COMPLETE METABOLIC | Routin | 10/10/2019 | Renal cell | Results for this | | PANEL - OLP | e | 9:08 AM | carcinoma of left | procedure are in the | | | | PST | kidney ([facility]) | results section. | + +--------+ + + + | CBC WITH AUTO DIFF - | Routin | 10/10/2019 | Renal cell | Results for this | | OLP | e | 9:08 AM | carcinoma of left | procedure are in the | | | | PST | kidney ([facility]) | results section. | + +--------+ + + + | [facility] - COMPLETE | Routin | 10/10/2019 | Renal cell | Results for this | | METABOLIC SET | e | 9:08 AM | carcinoma of left | procedure are in the | | | | PST | kidney ([facility]) | results section. | + +--------+ + + + | FREE T4 | Routin | 10/10/2019 | Renal cell | Results for this | | | e | 9:08 AM | carcinoma of left | procedure are in the | | | | PST | kidney ([facility]) | results section. | + +--------+ + + + | TSH | Routin | 10/10/2019 | Renal cell | Results for this | | | e | 9:08 AM | carcinoma of left | procedure are in the | | | | PST | kidney ([facility]) | results section. | + +--------+ [...] | + + + + + | [facility] | [address] | [place] [address] | | | SERVICES, CORE | [address] [...] + + + + | [facility] | [address] | [place] [address] | | | SERVICES, CORE | PARK [...] + + + + | [facility] | [address] | [place] [address] | | | SERVICES, DWIGHT | [address] | | | + + + + + [facility] - COMPLETE METABOLIC SET (10/10/2019 9:08 AM [...] | | | LABORATORY | | | [place] | | | SERVICES, | | | [...] + + + + | 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
--- OUTSIDE RECORDS SUMMARY | ~2020-05-06 | XMS | Encounter Summary ---
Demographics + + + | Address | [address] | | | [place] [address] | + + + | Home Phone [...] Team Providers + +------+ + | Care Estate Agent Name | Role | Phone | + +------+ + | Lissette Martinez PA-C | PCP | | + +------+ + Encounter Details +--------+ + + + + | Date | Type | Department | Care Team | Description | +--------+ + + + + | 11/01/ | Pharmacy | Pharmacy @ [facility] | | | | 2019 | Visit | [address] | | | | | | [address] Mailcode: | | | | | | [facility] | | | | | | and Healing, | | | | | | [address] | | | | | | [place], [place] | | | | | | [address] | | | +--------+ + + + [...] | 2020 | Visit | Oncology | [address] | | | | [address] | | | | | | [place] | | | | | | [address] | | | | | | [phone] | | | | | | | | +--------+---------+ + + + documented as of this encounter Visit Diagnoses Not on filedocumented in this encounter"
--- OUTSIDE RECORDS SUMMARY | ~2020-05-06 | XMS | Encounter Summary ---
Demographics + + + | Address | [address] | | | [place] [address] | + + + | Home Phone [...] | Author | [facility] | | | and Shahram | + + + | Organization | [facility] | | [...] Team Providers + +------+ + | Care Otolaryngologist Name | Role | Phone | + +------+ + PCP | Unavailable | + +------+ + Encounter Details +--------+ + + + + | Date | Type | Department | Care Team | Description | +--------+ + + + + | 03/20/ | Hospital | [facility] | | | | 2008 - | Encounter | [facility] | | | | | | CENTER [address] | | | | 04/06/ | | [place] | | | | 2008 | | [address] | | | | | | [phone] | | | +--------+ + + + [...]
--- OUTSIDE RECORDS SUMMARY | ~2020-05-06 | XMS | Encounter Summary ---
Demographics + + + | Address | [address] | | | [place] [address] | + + + | Home Phone [...] Providers + +------+ + | Care Peoplesoft Crm Developer Name | Role | Phone | + +------+ + | Lissette Martinez PA-C | PCP | | + +------+ + Encounter Details +--------+ + + + + | Date | Type | Department | Care Team | Description | +--------+ + + + + | 08/22/ | Cook Chill Technician | [facility] | Lissette Jones, | Kidney cancer, | | 2019 | | Clinics at S | [place] [address] [address] | primary, with | | | | [address] | metastasis from | | | | [facility] for | [facility] [place] | kidney to other | | | | Health and Healing, | [address] | site, left (HCC) | | | | [address] | [phone] | (Primary Dx) | | | | [place], [place] | | | | | | [address] | | | | | | [phone] | | | +--------+ + + + [...] 3:46 PM PSTCbc wth documented in this encselect specialty hospitaler Plan of Treatment +--------+---------+ + + + | Date | Type | Specialty | Care Team | Description | +--------+---------+ + + + | 06/26/ | Office | Hematology & | Lissette Jones, | | | 2019 | Visit | Oncology | [address] | | | | | | [address] | | | | | | [place] | | | | | | [address] | | | | | | [phone] | | | | | | | [...] + + | [facility] | [address] | [place] [address] | | | SERVICES, [place] FOR | | | | | HEALTH [...] [facility] | [address] | [place] [address] | | | SERVICES, CORE | [address] [...] + + | [facility] | [address] | [place] [address] | | | [address] | [address] [...] MDRD equation recommended by the National | [facility] | | Kidney Disease Education Program. Estimated [...] | + + + + + | [facility] | [address] | [place] [address] | | | 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
--- OUTSIDE RECORDS SUMMARY | ~2020-05-06 | XMS | Encounter Summary ---
Demographics + + + | Address | [address] | | | [place] [address] | + + + | Home Phone [...] Team Providers + +------+ + | Care Radar Technician Name | Role | Phone | + +------+ + | Lissette Martinez PA-C | PCP | | + +------+ + Encounter Details +--------+ + + + + | Date | Type | Department | Care Team | Description | +--------+ + + + + | 11/15/ | Assembler Dielectric Heater | [facility] | Lissette Jones, | | | 2019 | | Clinics at S | [place] [address] | | | | | [address] | | | | | [facility] for | [place], [place] | | | | | Health and Healing, | [address] | | | | | [address] | [phone] | | | | | [place], [place] | | | | | | [address] | | | | | | [phone] | | | +--------+ + + + [...] | 2019 | Visit | Oncology | [address] | | | | [address] | | | | | | [facility] [place] | | | | | | [address] | | | | | | [phone] | | | | | | | | +--------+---------+ + + + documented as of this encounter Visit Diagnoses Not on filedocumented in this encounter"
--- OUTSIDE RECORDS SUMMARY | ~2020-05-06 | XMS | Encounter Summary ---
Demographics + + + | Address | [address] | | | [place] [address] | + + + | Home Phone [...] Team Providers + +------+ + | Care Organic Lab Worker Name | Role | Phone | [...] | | Clinics at S | [place] [address] [address] | | | | | [address] | [address] | | | | | [facility] for | [place], [place] | | | | | Health and Healing, | [address] | | | | | [address] | [phone] | | | | | [place], [place] | | | | | | [address] | | | | | | [phone] | | | +--------+--------+ + + + [...] PM PDTRouting to Dr Jones to sign. elephone Encounter - Carlo Navas - 11/15/2019 2:00 PM PDTPatient calls regarding her upcoming infusion on Monday 11/20. States that last time, the MD prescribed her a small circular clear patch that sticks behin d the ear to help with nausea (patient has a 3-hour drive from [place], gets motion sickne ss normally and it's exacerbated by the chemo). Asks for another one for this appointment, please - would like to pick it up at the [facility] in [place] before they leave for [place] on Saturday 11/18. Routing to RNC and MD docum ented in this encounter Plan of Treatment +--------+---------+ + + + | Date | Type | Specialty | Care Team | Description | +--------+---------+ + + + | 06/26/ | Office | Hematology & | Lissette Jones, | | 2019 | Visit | Oncology | [address] | | | | [address] | | | | | | [place] | | | | | | [address] | | | | | | [phone] | | | | | | | | +--------+---------+ + + + documented as of this encounter Visit Diagnoses Not on filedocumented in this encounter"
--- OUTSIDE RECORDS SUMMARY | ~2020-05-06 | XMS | Encounter Summary ---
Demographics + + + | Address | [address] | | | [place] [address] | + + + | Home Phone | | + + + | Preferred Language | Unknown | + + + | Marital Status | | + + + | Jewish Affiliation | 1013 | + + + | Race | or Other | + + + | Ethnic Group | Not or | + + + Author + + + | Author | [facility] | | | and Shahram | + + + | Organization | [facility] | | | and Marcana [...] Team Providers + +------+ + | Care Industrial Sociologist Name | Role | Phone | + [...] | | | [address] | [place] [address] | | | | | [place] [address] | | | | | | [phone] | | | +--------+ + + + [...]
--- OUTSIDE RECORDS SUMMARY | ~2020-05-06 | XMS | Encounter Summary ---
Demographics + + + | Address | [address] | | | [place] [address] | + + + | Home Phone [...] Author + + + | Author | [facility] | | | and Shahram | + + + | Organization | [facility] | | | and Marcana [...] Team Providers + +------+ + | Care Chipper Feeder Name | Role | Phone | + [...] | | | [address] | [place] [address] | | | | | [place] [address] | | | | | | [phone] | | | +--------+ + + + [...]
--- OUTSIDE RECORDS SUMMARY | ~2020-05-06 | XMS | Encounter Summary ---
Demographics + + + | Address | [address] | | | [place] [address] | + + + | Home Phone [...] | Author | [facility] | | | and Shahram | + + + | Organization | [facility] | [...] Team Providers + +------+ + | Care Software Writer Name | Role | Phone | [...] | | | [address] | [place] [address] | | | | | [place] [address] | | | | | | [phone] | | | +--------+ + + + [...]
--- OUTSIDE RECORDS SUMMARY | ~2020-05-06 | XMS | Encounter Summary ---
Demographics + + + | Address | [address] | | | [place] [address] | + + + | Home Phone [...] Providers + +------+ + | Care Security Systems Specialist Name | Role | Phone | + +------+ + | Lissette Martinez PA-C | PCP | | + +------+ + Encounter Details +--------+ + + + + | Date | Type | Department | Care Team | Description | +--------+ + + + + | 03/20/ | Pharmacy | Pharmacy @ [facility] | | | | 2020 | Visit | [address] | | | | | | [address] Mailcode: | | | | | | [facility] | | | | | | and Healing, | | | | | | [address] | | | | | | [place], [place] | | | | | | [address] | | | +--------+ + + + [...] | 2019 | Visit | Oncology | [address] | | | | | | [address] | | | | | | [place] | | | | | | [address] | | | | | | [phone] | | | | | | | | +--------+---------+ + + + documented as of this encounter Visit Diagnoses Not on filedocumented in this encounter"
[~2020-05-06 11:57] MED LIST changes: +DECADRON4 MG PO; +ENOXAPARIN80 MG/0.8 SUB-Q; -FUROSEMIDE20 MG; +FUROSEMIDE20 MG PO; +IRON18 MG PO; -LOVASTATIN20 MG; +LOVASTATIN20 MG PO; +OMEPRAZOLE20 MG PO; -OXYCODONE HCL5 MG; +OXYCODONE HCL5 MG PO; +VITAMIN D21250 MCG PO
--- OUTSIDE RECORDS SUMMARY | 2020-05-06 12:00 | XMS ---
PreManage Notification: HANK HER Security Motor Scooter Repairer Events No recent Security Events currently on file CRITERIA MET - PDMP CARE PROVIDERS [place] Physician Vice President Mission Integration 11/07/2019-Current PHONE: [phone] Navdeep has no Care Guidelines for this patient. E.DJayson VISIT COUNT (12 MO.) 2 [facility] [place] [address] GUSTAVO Dunne TOTAL 6 NOTE: Visits indicate total known visits. ED/UCC VISIT TRACKING (12 MO.) 05/06/2020 11:58 [facility] [place] TYPE: Emergency COMPLAINT: - WEAKNESS 02/22/2020 22:48 [facility] [place] TYPE: Emergency COMPLAINT: - STROKE SYPMTOMS DIAGNOSES: - Hypothyroidism, unspecified - Malignant neoplasm of unspecified kidney, except renal pelvis - Other local intermodal truck driver (current) drug therapy - Secondary malignant neoplasm of brain - Facial weakness 11/21/2019 12:12 [facility] TYPE: Emergency DIAGNOSES: 08729. [facility] 33 [phone]. Hypotension, unspecified . 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 abnormal labs 04327. Malignant neoplasm of left kidney, except renal pelvis 15304. Wedge compression fracture of second lumbar vertebra, initial 02645. Hyperkalemia 21302. Hypercalcemia 07/27/2019 08:03 [facility] [place] TYPE: Emergency COMPLAINT: - BACK PAIN, NON INJ DIAGNOSES: - Other local intermodal truck driver (current) drug therapy - Other specified disorders of kidney and ureter - Low back pain - Hematuria, unspecified INPATIENT VISIT TRACKING (12 MO.) 11/21/2019 12:12 [facility] TYPE: General Medicine DIAGNOSES: 47051. Wedge compression fracture of second lumbar vertebra, initial 31372. Hyperuricemia without signs of inflammatory arthritis and top 23657. Malignant neoplasm of left kidney, except renal pelvis 80910. Anemia, unspecified 81238. Hypothyroidism, unspecified 02857. Hypercalcemia 04077. Hyperkalemia 80708. Acute kidney failure, unspecified 83936. Hypotension, unspecified 89479. Thyrotoxicosis, unspecified without thyrotoxic crisis or stor 94484. Wedge compression fracture of first lumbar vertebra, initial 89552. Malignant neoplasm of unspecified kidney, except renal pelvis 08/24/2019 18:16 [facility] TYPE: Inpatient DIAGNOSES: 20311. Hyperkalemia 02584. Wedge compression fracture of second lumbar vertebra, initial 34039. Hypercalcemia 20235. Malignant neoplasm of left kidney, except renal pelvis [email or web address]
[2020-05-06] MEDS ORDERED: ELIQUIS5 MG PO (12:09)
[2020-05-06] MEDS ORDERED: LEVOTHYROXINE100 MCG PO (12:09)
[2020-05-06] MEDS ORDERED: CABOMETYX40 MG PO (12:10)
--- NOTE | 2020-05-06 20:56 | NUR ---
ADMIT TO CCU PER STRETCHER. STOOD AND THEN USED BSC BEFORE GETTING TO BED. HR TO 140 WITH ACTIVITY. NO DZZYNESS. STATES OVERALL FEELING BETTER. NO NAUSEA. GIVEN 5MG OXYCODONE FOR CHRONIC BACK PAIN WHICH SHE USUALLY TAKES AT HS. DR SHAH IN DEPT AND GIVEN UPDATE. HR NOW 119 AT REST.
--- NOTE | 2020-05-06 22:00 | NUR ---
RESTING, HR CONT TO SLOWLY DECREASE.
--- NOTE | 2020-05-07 00:10 | NUR ---
STATES SLEEPING OFF AND ON. STATES BACK PAIN IS OK. DENIES NEED TO VOID.
--- NOTE | 2020-05-07 02:06 | NUR ---
HR 115-120. NO CHANGE.
--- NOTE | 2020-05-07 04:20 | NUR ---
AWAKENED FOR VS. DENIES NEED TO VOID. WILL BLADDER SCAN IF PT DOES NOT VOID BY [phone].
--- NOTE | 2020-05-07 05:58 | NUR ---
AWAKE AFTER LAB DRAW. UP TO BSD, VOIDED 200ML ORANGE URINE. HR UP TO 127 WITH GETTING BACK TO BED. BACK TO 112 WITH IN 5 MIN OF REST.
--- NOTE | 2020-05-07 09:00 | NUR ---
PHYSICAL THERAPY HERE TO WORK WITH PATIENT. PATIET TOOK ONLY FEW BITES OF BREAKFAST.
--- NOTE | 2020-05-07 09:20 | NUR ---
SITTING AT BEDSIDE, WORKING WITH PHYS THERAPY. PATIENT DENIES NEED TO VOID. DENIES PAIN.
--- NOTE | 2020-05-07 09:30 | NUR ---
ZOFRAN GIVEN FOR NAUSEA.
--- NOTE | 2020-05-07 10:10 | NUR ---
DENIES NAUSEA AT THIS TIME. MAG RIDER INFUSING.
--- NOTE | 2020-05-07 11:00 | NUR ---
SLEEPING, NO DISTRESS NOTED. IVF CONTINUE TO INFUSE.
--- NOTE | 2020-05-07 12:15 | NUR ---
SLEEPING, NO DISTRESS NOTED. ASSESSMENT HELD AT THIS TIME.
--- NOTE | 2020-05-07 13:26 | NUR ---
PATIENT SLEEPING SOUNDLY. SENIOR CASE MANAGER ASKS SHE NOT BE AWAKENED. WILL CHECK IN LATER.
--- NOTE | 2020-05-07 14:16 | NUR ---
CONTINUE TO SLEEP RR 25-29.
--- NOTE | 2020-05-07 14:21 | NUR ---
MISAEL SOLER REQUESTED I NOT DISTURB PT AT THIS TIME. WILL RETURN AT LATER TIME
--- NOTE | 2020-05-07 15:00 | NUR ---
patient is awake. DR. SHAH HERE TO SEE PATIENT. ORDERS RECIEED TO TRANSFER TO MEDICAL FLOOR. PATIENT UP TO COMMODE TO VOID 150 ML OF CONCENTRATED URINE. DENIES DIZZINESS WITH MOVEMENT. BACK TO BED W/O INCIDENT. SALAD AND APPLESAUSE ORDERED.
--- NOTE | 2020-05-07 16:30 | NUR ---
REPORT TO MED-SURG.
--- NOTE | 2020-05-07 16:50 | NUR ---
TO MED-SURG VIA BED.
--- NOTE | 2020-05-07 17:01 | NUR ---
Medications reconciled using pharmacy records and patient med list and interview.
--- NOTE | 2020-05-07 17:10 | NUR ---
PATIENT ARRIVED TO UNIT VIA BED. CCU RN STATED DR SHAH AWARE OF CONCENTRATED, LOW URINE OUTPUT. PT HAS HAD MINIMAL ENERGY. VITALS TAKEN; HYPOTENSIVE, TACHYCARDIC, STABLE ON RA. PT DENIES SÁNCHEZ OR PAIN, DOES HAVE CONTINUED NAUSEA. PT DOZING OFF IN BED, WATCHING TV. SON, EMANUEL, AT BEDSIDE. ICE WATER GIVEN. CALL LIGHT AND PHONE IN REACH. PT UNSTABLE ON FEET. DENIES FURTHER NEEDS AT THIS TIME.
--- NOTE | 2020-05-07 18:50 | NUR ---
PT EATING SF JELLO, HAS SOUP & CLEAR ENSURE ON TRAY. SON AT BEDSIDE. DECLINES ASSISTANCE AT THIS TIME.
--- NOTE | 2020-05-07 19:23 | NUR ---
REPORT RECEIVED FROM MISAEL JONES, AND MISAEL CUNNINGHAM. pt RESTING IN BED, TRAY TABLE CLEARED. NO REQUETS AT THIS TIME. CALL LIGHT IN REACH.
--- NOTE | 2020-05-07 21:35 | NUR ---
pt RESTING IN BED AWAKE, 2PA TO RESTROOM, GAIT UNSTEADY. WALKER PROVIDED TO pt, STATES SHE USES A FOUR WHEEL WALKER AT HOME. ASSESSMENT COMPLETE. PRN PAIN MEDICATION ADMINISTERED FOR 5/10 PAIN IN BACK. ICE WATER PROVIDED. IV SITES FLUSHED WNL, NEW BAG IVF INFUSING ORDERED. CALL LIGHT IN REACH. LIGHTS OFF IN ROOM.
--- NOTE | 2020-05-07 23:50 | NUR ---
CHECKED ON pt, RESTING ON RIGHT SIDE, BREATHING UNLABORED. LIGHTS OFF IN ROOM.
--- NOTE | 2020-05-08 02:00 | NUR ---
CHECKED ON pt. RESTING ON RIGHT SIDE. BREATHING UNLABORED. LIGHTS OFF IN ROOM.
--- NOTE | 2020-05-08 06:22 | NUR ---
pt AWAKE RESTING IN BED. SBA WITH FWW TO RESTROOM FOR VOID AND LOOSE BM. RATES PAIN 4/10 IN BACK. PRN PAIN MEDICATION ADMINISTERED. NEW BAG IVF INFUSING WNL ORDERED. ICE WATER PROVIDED. BREAKFAST MENU AND PHONE HANDED TO pt. NO ADDITIONAL REQUESTS. CALL LIGHT IN REACH.
--- NOTE | 2020-05-08 07:40 | NUR ---
PT APPEARS TO BE SLEEPING SOUNDLY AT TIME OF REPORT, LEFT UNDISTURBED.
--- NOTE | 2020-05-08 09:40 | NUR ---
PT UP TO THE CHAIR FOR MORNING MEAL, TOLERATES SMALL PORTION. DENIES NAUSEA OR OTHER CHOICES. FIELD START SL DC'D, WELL TOLERATED. IV INFUSING ORDERED. CALL LIGHT IN HAND.
[2020-05-08] MEDS ORDERED: ZOFRAN4 MG PO (09:57)
[2020-05-08] MEDS ORDERED: DICYCLOMINE HCL10 MG PO (09:58)
[2020-05-08] MEDS ORDERED: LOPERAMIDE2 M1 PO (09:59)
--- NOTE | 2020-05-08 10:31 | NUR ---
PATIENT IN BED, RN IN ROOM. LOW OUTPUT, RN NOTIFIED. CALL LIGHT IN REACH. NO FURTHER NEEDS AT THIS TIME.
--- NOTE | 2020-05-08 10:39 | PATH ---
[facility] [address] [place], [place] [address] Signed ORDERING PHYSICIAN: Cris Gillis MD PATIENT NAME: HANK HER GENDER: F : 1965 SPECIMEN(S): No Source Given MOLECULAR PATHOLOGY RESULTS: SARS-CoV-2 Not Detected ADDITIONAL NOTES.: The Franklin Fusion SARS-CoV-2 Assay is a multiplex real-time PCR (RT-PCR) in vitro diagnostic test intended for the qualitative detection of RNA from SARS-CoV-2 from individuals who meet COVID-19 clinical and/or epidemiological criteria. In general, SARS-CoV-2 RNA can be detected during the acute phase of infection. Positive results indicate the presence of SARS-CoV-2 RNA. Clinical correlation with patient history and other diagnostic information is necessary to determine patient infection status. Positive results do not rule out bacterial infection or co-infection with other viruses. Negative results do not preclude SARS-CoV-2 infection and should not be used as the sole basis for patient management decisions. Negative results must be combined with other clinical observations, patient history, and epidemiological information. The Franklin Fusion SARS-CoV-2 Assay is not yet approved or cleared by the [place] FDA. When there are no FDA-approved or cleared tests available, and other criteria are met, FDA can make tests available under an emergency access mechanism called an Emergency Use Authorization (EUA). The EUA for this test is supported by the Client Representative of Health and Human Service's (HHS's) declaration that circumstances exist to justify the emergency use of in vitro diagnostics for the detection and/or diagnosis of the virus that causes COVID-19. This EUA will remain in effect for the duration of the COVID-19 declaration justifying emergency of IVDs, unless it is terminated or revoked by FDA, after which the test may no longer be used. The Franklin Fusion SARS-CoV-2 Assay is for use only under EUA in US laboratories certified under the Clinical Laboratory Improvement Amendments of 1988 (CLIA) to perform high complexity tests. [facility] is certified under CLIA to perform high complexity PATIENT NAME: HANK HER ANTWAN PATHOLOGY DATE OF : 61 REPORT #: [id number] PHYSICIAN: JAMARCUS TARANGO PCP: CAMRYN MA PA-C REPORT IS CONFIDENTIAL AND NOT TO BE RELEASED WITHOUT AUTHORIZATION [address] [address] Signed clinical laboratory testing. PERFORMING LABORATORY.: Molecular testing was performed by [facility] [address] [place] [address] [address] (Service Administrator: Heriberto Calvo D.O.; CLIA#: [id number]) Diagnostician: System Interface Pathologist Electronically Signed 05/08/2020 Copies: ~ PATIENT NAME: SAI HERCIA ANTWAN PATHOLOGY DATE OF : 61 REPORT #: [id number] PHYSICIAN: JAMARCUS TARANGO PCP: CAMRYN MA PA-C REPORT IS CONFIDENTIAL AND NOT TO BE RELEASED WITHOUT AUTHORIZATION
--- NOTE | 2020-05-08 12:09 | NUR ---
DR SHAH IN TO SEE PT SHE C/O LOOSE STOOL X2 WELL CRAMPING IN HER LOWER ABDOMEN. ORDERS GIVEN MEDS ADMINISTERED. PT DC'D. SHE STATES SHE JUST WANTS TO NAP A LITTLE WHILE AND LET MEDICATIONS TAKE EFFECT, WILL DC AFTER THAT.
--- NOTE | 2020-05-08 14:08 | NUR ---
PT AWAKENS FROM [facility], STATES SHE FEELS "A LOT BETTER" REQUESTS VEG PLATE AND STATES SHE WILL GET READY TO GO AFTER THAT.
== END 2020-05-08 14:50 | disposition home or self-care (01) ==
LOC: ED 11:57 → CCU 11:59 → MS 05-07 17:05
PROVIDERS: ADMIT Student in an Organized Health Care Education/Training Program; ATTEND Student in an Organized Health Care Education/Training Program
DX: N17.9 Acute kidney failure, unspecified (principal); E86.0 Dehydration; C64.9 Malignant neoplasm of unspecified kidney, except renal pelvis; R00.0 Tachycardia, unspecified; E03.9 Hypothyroidism, unspecified; K21.9 Gastro-esophageal reflux disease without esophagitis; Z86.711 Personal history of pulmonary embolism; Z79.899 Other long term (current) drug therapy; Z79.01 Long term (current) use of anticoagulants
CPT/HCPCS: 36415; 51701; 71045; 74177; 80048; 80053; 81001; 83605; 83735; 84443; 85025; 96365; 96376; 97163; 99285-25; C9803; G0378; J2405; J3010; J3475; J7030; J7121; Q9967

== ENCOUNTER 2020-06-05 11:06 | Emergency (ER) | payer OTHER ==
[~2020-06-05] VITALS: Ht 157.5 cm; Wt 71.2 kg
[~2020-06-05 11:06] MED LIST changes: +CABOMETYX40 MG PO; +DICYCLOMINE HCL10 MG PO; +ELIQUIS5 MG PO; +LEVOTHYROXINE100 MCG PO; +LOPERAMIDE2 M1 PO; +ZOFRAN4 MG PO
--- OUTSIDE RECORDS SUMMARY | 2020-06-05 11:08 | XMS ---
PreManage Notification: HANK HER Security Bdc Manager Events No recent Security Events currently on file CRITERIA MET - [facility] - [facility] - 2 Visits in 30 Days CARE PROVIDERS CAMRYN MA Physician Street Light Lamp Cleaner 11/07/2019-Current PHONE: [phone] Navdeep has no Care Guidelines for this patient. E.Dung. VISIT COUNT (12 MO.) 2 [facility] and [address] TOTAL 7 NOTE: Visits indicate total known visits. ED/UCC VISIT TRACKING (12 MO.) 06/05/2020 11:06 [facility] [place] TYPE: Emergency COMPLAINT: - SEIZURE 05/06/2020 11:58 [facility] [place] TYPE: Emergency COMPLAINT: - WEAKNESS 02/22/2020 22:48 [facility] [place] TYPE: Emergency COMPLAINT: - STROKE SYPMTOMS DIAGNOSES: - Hypothyroidism, unspecified - Malignant neoplasm of unspecified kidney, except renal pelvis - Other longterm (current) drug therapy - Secondary malignant neoplasm of brain - Facial weakness 11/21/2019 12:12 [facility] TYPE: Emergency DIAGNOSES: 90529. AMR 33 46787. Hypotension, unspecified 10567. Acute kidney failure, unspecified 11/04/2019 19:37 [facility] [place] TYPE: Emergency COMPLAINT: - POTASSIUM PROBLEM DIAGNOSES: - senior living (current) use of opiate analgesic - Hypothyroidism, unspecified - Hyperkalemia - Other longterm (current) drug therapy 08/24/2019 18:16 [facility] TYPE: Emergency DIAGNOSES: 14692. abnormal labs 39558. Malignant neoplasm of left kidney, except renal pelvis 48309. Wedge compression fracture of second lumbar vertebra, initial 20137. Hyperkalemia 39156. Hypercalcemia 07/27/2019 08:03 [facility] [place] TYPE: Emergency COMPLAINT: - BACK PAIN, NON INJ DIAGNOSES: - Other long term care social worker (current) drug therapy - Other specified disorders of kidney and ureter - Low back pain - Hematuria, unspecified INPATIENT VISIT TRACKING (12 MO.) 05/06/2020 11:59 [facility] [place] TYPE: Observation COMPLAINT: - DEHYDRATION DIAGNOSES: - senior living (current) use of anticoagulants - Gastro-esophageal reflux disease without esophagitis - Personal history of pulmonary embolism - Tachycardia, unspecified - Hypothyroidism, unspecified - Other longterm (current) drug therapy - Malignant neoplasm of unspecified kidney, except renal pelvis - Acute kidney failure, unspecified - Contact with and (suspected) exposure to other viral communic - Dehydration 11/21/2019 12:12 [facility] TYPE: General Medicine DIAGNOSES: 26712. Wedge compression fracture of second lumbar vertebra, initial 24491. Hyperuricemia without signs of inflammatory arthritis and top 94110. Malignant neoplasm of left kidney, except renal pelvis 36851. Anemia, unspecified 74034. Hypothyroidism, unspecified 02253. Hypercalcemia 22806. Hyperkalemia 76522. Acute kidney failure, unspecified 00548. Hypotension, unspecified 88745. Thyrotoxicosis, unspecified without thyrotoxic crisis or stor 86267. Wedge compression fracture of first lumbar vertebra, initial . Malignant neoplasm of unspecified kidney, except renal pelvis 08/24/2019 18:16 [facility] TYPE: Inpatient DIAGNOSES: 43369. Hyperkalemia . Wedge compression fracture of second lumbar vertebra, initial . Hypercalcemia . Malignant neoplasm of left kidney, except renal pelvis [email or web address]
[2020-06-05] MEDS ORDERED: CABOMETYX20 MG PO (11:19)
[2020-06-05] MEDS ORDERED: FUROSEMIDE20 MG PO (11:19)
[2020-06-05] MEDS ORDERED: DECADRON4 MG PO (15:26)
[2020-06-05] MEDS ORDERED: KEPPRA500 MG PO (15:26)
== END 2020-06-05 16:03 | disposition home or self-care (01) ==
LOC: ED 11:06
DX: R56.9 Unspecified convulsions (principal); C64.9 Malignant neoplasm of unspecified kidney, except renal pelvis; C79.31 Secondary malignant neoplasm of brain; E03.9 Hypothyroidism, unspecified; E78.00 Pure hypercholesterolemia, unspecified; Z79.899 Other long term (current) drug therapy; Z79.891 Long term (current) use of opiate analgesic
CPT/HCPCS: 70450; 80053; 85025; 96374; 99285-25; J1953; J8540

== ENCOUNTER 2020-06-29 16:02 | Inpatient (IN) | payer OTHER ==
[~2020-06-29] VITALS: Ht 157.5 cm; Wt 77.1 kg
--- OUTSIDE RECORDS SUMMARY | ~2020-06-29 | XMS | Encounter Summary ---
Demographics + + + | Address | [address] | | | [place] [address] | + + + | Home Phone | | + + + | Preferred Language | Unknown | + + + | Marital Status | Single | + + + | Mormonism Affiliation | CHR | + + + | Race | White | + + + | Ethnic Group | Not or | + + + Author + + + | Author | [facility] | + + + | Organization | [facility] | + + + | Address | Unknown | + + + | Phone | Unavailable | + + + Support + + +---------+ + | Name | Relationship | Address | Phone | + + +---------+ + | William Talavera | ECON | Unknown | | + + +---------+ + Care Team Providers + +------+ + | Care Police Officer Booking Name | Role | Phone | + +------+ + | Lissette Martinez PA-C | PCP | | + +------+ + Reason for Referral Diagnostic Testing (Urgent) +--------+--------+ + + + + | Status | Reason | Specialty | Diagnoses / | Referred By | Referred To | | | | | Procedures | Contact | Contact | +--------+--------+ + + + + | Closed | | Radiology | Diagnoses | Santoli, | Rad Mri | | | | | Renal cell | Kwabena Nettles MD | [address] | | | | | carcinoma, | [address] | | | | | unspecified | [address] | [facility] | [facility] | [address] | Health and | | | | | (HCC) | [place], [place] | Healing, | | | | | staging | [address] | [address], | | | | | kidney | Phone: | 3rd Floor | | | | | cancer | [phone] | [facility] [place] | | | | | Procedures | Fax: | [phone] | | | | | MRI BRAIN | [phone] | Phone: | | | | | WWO CONTRAST | | [phone] | | | | | [place] MRI | | Fax: | | | | | BRAIN COMBO | | [phone] | +--------+--------+ + + + + Reason for Visit Diagnostic Testing (Urgent) +--------+--------+ + + + + | Status | Reason | Specialty | Diagnoses / | Referred By | Referred To | | | | | Procedures | Contact | Contact | +--------+--------+ + + + + | Closed | | Radiology | Diagnoses | Santoli, | Rad Mri | | | | | Renal cell | Kwabena Nettles MD | [address] | | | | | carcinoma, | [address] | | | | | unspecified | [address] | [facility] | | | | | laterality | [address] | Health and | | | | | (HCC) | [place], [place] | Healing, | | | | | staging | [address] | [address], | | | | | kidney | Phone: | 3rd Floor | | | | | cancer | [phone] | [place], [place] | | | | | Procedures | Fax: | [phone] | | | | | MRI BRAIN | [phone] | Phone: | | | | | WWO CONTRAST | | [phone] | | | | | [place] MRI | | Fax: | | | | | BRAIN COMBO | | [phone] | +--------+--------+ + + + + Encounter Details +--------+ + + + + | Date | Type | Department | Care Team | Description | +--------+ + + + + | 02/26/ | Hospital | Diagnostic Imaging | Kwabena Sanchez, | | | 2019 | Encounter | Services at [facility] | [address] | | | | | [address] | [facility] [address] | | | | | [address] | [place], [place] | | | | | [facility] | [address] | | | | | [place], [place] | [phone] | | | | | [address] | | | | | | [phone] | | | +--------+ + + + + Social History + +-------+ +--------+------+ | Tobacco Use | Types | Packs/Day | Years | Date | | | | | Used | | + +-------+ +--------+------+ | Never Smoker | | | | | + +-------+ +--------+------+ + +---+---+---+ | Smokeless Tobacco: | | | | | Never Used | | | | + +---+---+---+ + + +---------+ + | Alcohol Use | Drinks/Week | oz/Week | Comments | + + +---------+ + | Not Currently | | | | + + +---------+ + + + + | Sex Assigned at | Date Recorded | | | | + + + | Not on file | | + + + + + + + | COVID-19 Exposure | Response | Date Recorded | + + + + | In the last month, have you been in contact | No / Unsure | 02/27/2020 6:35 AM | | with someone who was confirmed or | | PDT | | suspected to have Coronavirus / COVID-19? | | | + + + + documented as of this encounter Functional Status + + + + | Functional Status | Response | Date of Assessment | + + + + | Because of a physical, mental, or emotional | No | 11/22/2019 | | condition, do you have serious difficulty | | | | doing errands alone such as visiting the | | | | doctor? | | | + + + + + + + + | Cognitive Status | Response | Date of Assessment | + + + + | Because of a physical, mental, or emotional | No | 11/22/2019 | | condition, do you have serious difficulty | | | | concentrating, remembering, or making | | | | decisions? (5 years old or older) | | | + + + + documented as of this encounter Medications at Time of Discharge + + + +---------+ + + | Medication | Sig | Dispensed | Refills | Start | End Date | | | | | | Date | | + + + +---------+ + + | cholecalciferol | Take 1 capsule by | 21 | 0 | 12/14/19 | | | 50,000 unit oral | mouth every seven | capsule | | 20 | | | capsuleIndications: | days. Indications: | | | | | | vitamin D deficiency | vitamin D deficiency | | | | | | (high dose therapy) | (high dose therapy) | | | | | + + + +---------+ + + | furosemide (LASIX) | Take 1 tablet by | 30 | 0 | 01/09/20 | | | 20 mg oral tablet | mouth once daily. | tablet | | 20 | | + + + +---------+ + + | Iron, Carbonyl 45 | Take by mouth. | | 0 | | | | mg elemental oral | | | | | | | tablet | | | | | | + + + +---------+ + + | levothyroxine 100 | Take 1 tablet by | 30 | 0 | 11/29/19 | | | mcg oral tablet | mouth before | tablet | | 20 | | | | breakfast. | | | | | + + + +---------+ + + | lovastatin 20 mg | Take 20 mg by mouth | | 0 | | | | oral tablet | once daily in the | | | | | | | evening. Administer | | | | | | | with evening meal. | | | | | + + + +---------+ + + | omeprazole 20 mg | Take 1 capsule by | 30 | 0 | 08/30/20 | | | oral capsule,delayed | mouth two times | capsule | | 19 | | | release(DR/EC) | daily. Administer 30 | | | | | | | to 60 minutes | | | | | | | before meals | | | | | + + + +---------+ + + documented as of this encounter Plan of Treatment Not on filedocumented as of this encounter Procedures + +--------+ + + + | Procedure Name | Priori | Date/Time | Associated Diagnosis | Comments | | | ty | | | | + +--------+ + + + | MRI BRAIN WWO | Urgent | 02/27/2020 | Renal cell | Results for this | | CONTRAST | | 7:40 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 | | | | | laterality (HCC) | | + +--------+ + + + documented in this encounter Results MRI BRAIN WWO CONTRAST (02/27/2020 7:40 AM PDT) + + | Specimen | + + | | + + + + + | Narrative | Performed At | + + + | EXAM: MRI BRAIN W/WO CONTRAST HISTORY: staging kidney cancer. | [facility] | | Left renal lesion extends invading the renal vein with retroperitoneal | RADIOLOGY VOICE | | lymphadenopathy and liver lesions, stage IV clear cell carcinoma | RECOGNITION 2 | | COMPARISON: 08/30/2019 MRI, CT 11/23/2019. TECHNIQUE: Multiplanar | | | multi-sequence MRI of the brain without and with gadolinium based | | | intravenous contrast: FINDINGS: BRAIN: Within the inferior | | | portion of the left precentral gyrus, there is a multiloculated cystic | | | lesion that is heterogeneously T1 hyperintense and T2 hypointense | | | with no definite associated contrast enhancement. This lesion is | | | associated with prominent susceptibility artifact with blooming. | | | Patient is new since prior MRI from 2019. DSC perfusion analysis is | | | precluded due to extensive underlying susceptibility. T2/FLAIR | | | hyperintensity seen surrounding the lesion in the left posterior | | | frontal lobe. No evidence of acute infarction. The ventricles are | | | normal in size and morphology, similar to prior imaging. SOFT | | | TISSUES AND MARROW: Unremarkable. FACE AND ORBITS: Visualized | | | portions are unremarkable. IMPRESSION: No definite contrast | | | enhancement is noted in association with the left precentral gyrus | | | hemorrhagic lesion. However, the presence of extensive intrinsic T1 | | | hyperintense subacute blood products within the lesion mildly | | | decreases sensitivity for enhancement. No enhancing brain lesions, | | | otherwise. Metastatic disease is not entirely excluded. Cavernous | | | malformation could be considered, alternatively, however this is | | | unlikely given the absence of underlying lesion in this location on | | | the 08/30/2019 exam I have personally reviewed the images and, if | | | necessary, edited the report. I agree with the report as now | | | presented. Final signature: Zeeshan Beyer MD 02/27/2020 | | | 9:25 AM Preliminary: Tonja Ferrell MD Dictation | | | initiated: Tonja Ferrell MD 02/27/2020 8:39 AM | | + + + + + | Procedure Note | + + | Service Account, Radiant Res In Interface - 02/27/2020 9:26 AM PDT EXAM: MRI BRAIN | | W/WO CONTRAST HISTORY: staging kidney cancer. Left renal lesion extends invading the | | renal vein with retroperitoneal lymphadenopathy and liver lesions, stage IV clear cell | | carcinoma COMPARISON: 08/30/2019 MRI, CT 11/23/2019. TECHNIQUE: Multiplanar | | multi-sequence MRI of the brain without and with gadolinium based intravenous contrast: | | FINDINGS: BRAIN: Within the inferior portion of the left precentral gyrus, there is a | | multiloculated cystic lesion that is heterogeneously T1 hyperintense and T2 hypointense | | with no definite associated contrast enhancement. This lesion is associated with | | prominent susceptibility artifact with blooming. Patient is new since prior MRI from | | 2019. DSC perfusion analysis is precluded due to extensive underlying susceptibility. | | T2/FLAIR hyperintensity seen surrounding the lesion in the left posterior frontal lobe. | | No evidence of acute infarction. The ventricles are normal in size and morphology, | | similar to prior imaging. SOFT TISSUES AND MARROW: Unremarkable.FACE AND ORBITS: | | Visualized portions are unremarkable. IMPRESSION: No definite contrast enhancement is | | noted in association with the left precentral gyrus hemorrhagic lesion. However, the | | presence of extensive intrinsic T1 hyperintense subacute blood products within the | | lesion mildly decreases sensitivity for enhancement. No enhancing brain lesions, | | otherwise. Metastatic disease is not entirely excluded. Cavernous malformation could be | | considered, alternatively, however this is unlikely given the absence of underlying | | lesion in this location on the 08/30/2019 exam I have personally reviewed the images | | and, if necessary, edited the report. I agree with the report as now presented. Final | | signature: Zeeshan Beyer MD 02/27/2020 9:25 AM Preliminary: Tonja eFrrell MD | | Dictation initiated: Tonja Ferrell MD 02/27/2020 8:39 AM | |I have personally reviewed the images and, if necessary, edited the report. I agree with e report as now presented. | | | |Final signature: Zeeshan Beyer MD 02/27/2020 9:25 AM | |Preliminary: Tonja Ferrell MD | |Dictation initiated: Tonja Ferrell MD 02/27/2020 8:39 AM | + + + +---------+ + + | Performing | Address | City/State/Zipcode | Phone Number | | Organization | | | | + +---------+ + + | [facility] | | | | | VOICE RECOGNITION 2 | | | | + +---------+ + + documented in this encounter Visit Diagnoses + + | Diagnosis | + + | Renal cell carcinoma, unspecified laterality (HCC) | + + documented in this encounter Administered Medications + +---------+ +-------+------+------+ | Medication Order | MAR | Action | Dose | Rate | Site | | | Action | Date | | | | + +---------+ +-------+------+------+ | gadoterate meglumine (DOTAREM) | IV Push | 02/27/20 | 18 mL | | | | 0.5 mmol/mL (376.9 mg/mL) | | 20 7:17 | | | | | injection 18 mL 18 mL, | | AM PDT | | | | | intravenous, ONCE, 1 dose, Mon | | | | | | | 02/27/20 at 0800 | | | | | | + +---------+ +-------+------+------+ +---+---+ | | | +---+---+ documented in this encounter"
--- OUTSIDE RECORDS SUMMARY | ~2020-06-29 | XMS | Encounter Summary ---
Demographics + + + | Address | [address] | | | [place] [address] | + + + | Home Phone | | + + + | Preferred Language | Unknown | + + + | Marital Status | Single | + + + | Anabaptist Affiliation | CHR | + + + | Race | White | + + + | Ethnic Group | Not or | + + + Author + + + | Author | [facility] | + + + | Organization | [facility] | + + + | Address | Unknown | + + + | Phone | Unavailable | + + + Support + + +---------+ + | Name | Relationship | Address | Phone | + + +---------+ + | William Talavera | ECON | Unknown | | + + +---------+ + Care Team Providers + +------+ + | Care Branding Specialist Name | Role | Phone | + +------+ + | Lissette Martinez PA-C | PCP | | + +------+ + Reason for Referral Diagnostic Testing (Routine) +--------+--------+ + + + + | Status | Reason | Specialty | Diagnoses / | Referred By | Referred To | | | | | Procedures | Contact | Contact | +--------+--------+ + + + + | Closed | | Radiology | Diagnoses | Vuky, | Rad Nuc Med | | | | | Kidney | Lissette, | [facility] [address] | | | | | cancer, | [place] [address] [address] | [address] | | | | | primary, | [address] | [address] | | | | | with | [address] | [place] [address], | | | | | metastasis | [place], | Basement | | | | | from kidney | [place] | [place], [place] | | | | | to other | [address] | [address] | | | | | site, left | Phone: | Phone: | | | | | (HCC) | [phone] | [phone] | | | | | Procedures | Fax: | Fax: | | | | | NM BONE &/OR | [phone] | [phone] | | | | | JOINT | | | | | | | IMAGING | | | | | | | WHOLE BODY | | | | | | | [place] BONE | | | | | | | IMAGING, | | | | | | | WHOLE BODY | | | +--------+--------+ + + + + Reason for Visit Diagnostic Testing (Routine) +--------+--------+ + + + + | Status | Reason | Specialty | Diagnoses / | Referred By | Referred To | | | | | Procedures | Contact | Contact | +--------+--------+ + + + + | Closed | | Radiology | Diagnoses | Vuky, | Rad Nuc Med | | | | | Kidney | Lissette, | [facility] [address] | | | | | cancer, | [place] [address] [address] | [address] | | | | | primary, | [address] | [address] | | | | | with | Ct | [place], | | | | | metastasis | [place], | Basement | | | | | from kidney | [place] | [place], [place] | | | | | to other | [address] | [address] | | | | | site, left | Phone: | Phone: | | | | | (HCC) | [phone] | [phone] | | | | | Procedures | Fax: | Fax: | | | | | NM BONE &/OR | [phone] | [phone] | | | | | JOINT | | | | | | | IMAGING | | | | | | | WHOLE BODY | | | | | | | [place] BONE | | | | | | | IMAGING, | | | | | | | WHOLE BODY | | | +--------+--------+ + + + + Encounter Details +--------+ + + + + | Date | Type | Department | Care Team | Description | +--------+ + + + + | 08/23/ | Hospital | Nuclear Medicine | Lissette Jones, | | | 2019 | Encounter | at [facility] [address] | [place] [address] [address] | | | | | [address] | [address] | | | | | [place], | [place] | | | | | Basement [place], | [address] | | | | | [place] [address] | [phone] | | | | | [phone] | | | +--------+ + + + [...] on file | | + + + documented as of this encounter Medications at Time of Discharge + + + +---------+--------+ + | Medication | Sig | Dispensed | Refills | Start | End Date | | | | | | Date | | + + + +---------+--------+ + | lovastatin 20 mg | Take 20 mg by mouth | | 0 | | | | oral tablet | once daily in the | | | | | | | evening. Administer | | | | | | | with evening meal. | | | | | + + + +---------+--------+ + documented as of this encounter Plan of Treatment Not on filedocumented as of this encounter Procedures + +--------+ + + + | Procedure Name | Priori | Date/Time | Associated Diagnosis | Comments | | | ty | | | | + +--------+ + + + | NM BONE &/OR JOINT | Routin | 08/23/2019 | Kidney cancer, | Results for this | | IMAGING TOMOGRAPHIC | e | 5:09 PM | primary, with | procedure are in the | | (SPECT) | | PST | metastasis from | results section. | | | | | kidney to other | | | | | | site, left (HCC) | | + +--------+ + + + | NM BONE &/OR JOINT | Routin | 08/23/2019 | Kidney cancer, | Results for this | | IMAGING WHOLE BODY | e | 5:09 PM | primary, with | procedure are in the | | | | PST | metastasis from | results section. | | | | | kidney to other | | | | | | site, left (HCC) | | + +--------+ + + + documented in this encounter Results NM BONE &/OR JOINT IMAGING TOMOGRAPHIC (SPECT) (08/23/2019 5:09 PM PST) + + | Specimen | + + | | + + + + + | Narrative | Performed At | + + + | WHOLE-BODY BONE SCAN: 08/23/2019 5:09 PM HISTORY: 54 years of | [facility] | | age, Female, with history of metastatic left renal cancer, referred | RADIOLOGY VOICE | | for evaluation of osseous metastasis. COMPARISON: Outside CT | RECOGNITION 2 | | abdomen pelvis 07/27/2019. TECHNIQUE: Radiopharmaceutical: | | | Tc-99m MDP 23.169 mCi intravenously. The intravenous | | | administration of the radiopharmaceutical was uneventful. | | | Approximately two and a half hours later, the patient returned for | | | planar images of the whole body in anterior and posterior projections. | | | Additional spot views of the spine, arms and skull were obtained. | | | Additional SPECT/CT of the L-spine was performed. FINDINGS: | | | Foci of uptake suggestive of degenerative changes involving the right | | | sternoclavicular joint, bilateral shoulders, bilateral knees. | | | There is a cold lytic lesion within the left and anterior aspect of L2 | | | vertebral body. The right side of the L2 vertebral body shows | | | increased uptake, without CT correlate. No further suspicious | | | osseous uptake is present. There is absence of left renal uptake, | | | secondary to known left renal cancer. Soft tissue distribution of the | | | radiopharmaceutical is otherwise normal. The right kidney and urinary | | | bladder are visualized per normal clearance of the | | | radiopharmaceutical. Large left renal infiltrative mass is again | | | noted a low-dose CT. IMPRESSION: Lytic metastatic cold bone | | | scan lesion within the left/anterior aspect of the L2 vertebral body, | | | with adjacent hot lesion on the right side of L2 vertebral body, that | | | may represent a non-lytic part of the adjacent metastasis or | | | pathologic fracture of L2. I have personally reviewed the images | | | and, if necessary, edited the report. I agree with the report as now | | | presented. Final signature: Capo Hebert MD 08/23/2019 | | | 5:25 PM Preliminary: Jose Cruz Ambrocio MD 08/23/2019 5:20 PM | | | Dictation initiated: Jose Cruz Ambrocio MD 08/23/2019 4:49 PM | | + + + + + | Procedure Note | + + | Service Account, Radiant Res In Interface - 08/25/2019 1:45 PM PST WHOLE-BODY BONE | | SCAN: 08/23/2019 5:09 PM HISTORY: 54 years of age, Female, with history of metastatic | | left renal cancer, referred for evaluation of osseous metastasis. COMPARISON: Outside CT | | abdomen pelvis 07/27/2019. TECHNIQUE: Radiopharmaceutical: Tc-99m MDP 23.169 mCi | | intravenously. The intravenous administration of the radiopharmaceutical was | | uneventful. Approximately two and a half hours later, the patient returned for planar | | images of the whole body in anterior and posterior projections. Additional spot views of | | the spine, arms and skull were obtained. Additional SPECT/CT of the L-spine was | | performed. FINDINGS: Foci of uptake suggestive of degenerative changes involving the | | right sternoclavicular joint, bilateral shoulders, bilateral knees. There is a cold | | lytic lesion within the left and anterior aspect of L2 vertebral body. The right side of | | the L2 vertebral body shows increased uptake, without CT correlate. No further | | suspicious osseous uptake is present. There is absence of left renal uptake, secondary | | to known left renal cancer. Soft tissue distribution of the radiopharmaceutical is | | otherwise normal. The right kidney and urinary bladder are visualized per normal | | clearance of the radiopharmaceutical. Large left renal infiltrative mass is again noted | | a low-dose CT. IMPRESSION: Lytic metastatic cold bone scan lesion within the | | left/anterior aspect of the L2 vertebral body, with adjacent hot lesion on the right | | side of L2 vertebral body, that may represent a non-lytic part of the adjacent | | metastasis or pathologic fracture of L2. I have personally reviewed the images and, if | | necessary, edited the report. I agree with the report as now presented. Final | | signature: Capo Hebert MD 08/23/2019 5:25 PM Preliminary: Jose Cruz Ambrocio MD | | 08/23/2019 5:20 PM Dictation initiated: Jose Cruz Ambrocio MD 08/23/2019 4:49 PM | |IMPRESSION: | | | |Lytic metastatic cold bone scan lesion within the left/anterior aspect of the L2 vertebral body, with adjacent hot lesion on the right side of L2 vertebral body, that may represent a non-lytic part of the adjacent | |metastasis or pathologic fracture of L2. | | | |I have personally reviewed the images and, if necessary, edited the report. I agree with th e report as now presented. | | | |Final signature: Capo Hebert MD 08/23/2019 5:25 PM | |Preliminary: Jose Cruz Ambrocio MD 08/23/2019 5:20 PM | |Dictation initiated: Jose Cruz Ambrocio MD 08/23/2019 4:49 PM | + + + +---------+ + + | Performing | Address | City/State/Zipcode | Phone Number | | Organization | | | | + +---------+ + + | [facility] | | | | | VOICE RECOGNITION 2 | | | | + +---------+ + + NM BONE &/OR JOINT IMAGING WHOLE BODY (08/23/2019 5:09 PM PST) + + | Specimen | + + | | + + + + + | Narrative | Performed At | + + + | WHOLE-BODY BONE SCAN: 08/23/2019 5:09 PM HISTORY: 54 years of | [facility] | | age, Female, with history of metastatic left renal cancer, referred | RADIOLOGY VOICE | | for evaluation of osseous metastasis. COMPARISON: Outside CT | RECOGNITION 2 | | abdomen pelvis 07/27/2019. TECHNIQUE: Radiopharmaceutical: | | | Tc-99m MDP 23.169 mCi intravenously. The intravenous | | | administration of the radiopharmaceutical was uneventful. | | | Approximately two and a half hours later, the patient returned for | | | planar images of the whole body in anterior and posterior projections. | | | Additional spot views of the spine, arms and skull were obtained. | | | Additional SPECT/CT of the L-spine was performed. FINDINGS: | | | Foci of uptake suggestive of degenerative changes involving the right | | | sternoclavicular joint, bilateral shoulders, bilateral knees. | | | There is a cold lytic lesion within the left and anterior aspect of L2 | | | vertebral body. The right side of the L2 vertebral body shows | | | increased uptake, without CT correlate. No further suspicious | | | osseous uptake is present. There is absence of left renal uptake, | | | secondary to known left renal cancer. Soft tissue distribution of the | | | radiopharmaceutical is otherwise normal. The right kidney and urinary | | | bladder are visualized per normal clearance of the | | | radiopharmaceutical. Large left renal infiltrative mass is again | | | noted a low-dose CT. IMPRESSION: Lytic metastatic cold bone | | | scan lesion within the left/anterior aspect of the L2 vertebral body, | | | with adjacent hot lesion on the right side of L2 vertebral body, that | | | may represent a non-lytic part of the adjacent metastasis or | | | pathologic fracture of L2. I have personally reviewed the images | | | and, if necessary, edited the report. I agree with the report as now | | | presented. Final signature: Capo Hebert MD 08/23/2019 | | | 5:25 PM Preliminary: Jose Cruz Ambrocio MD 08/23/2019 5:20 PM | | | Dictation initiated: Jose Cruz Ambrocio MD 08/23/2019 4:49 PM | | + + + + + | Procedure Note | + + | Service Account, Radiant Res In Interface - 08/25/2019 1:45 PM PST WHOLE-BODY BONE | | SCAN: 08/23/2019 5:09 PM HISTORY: 54 years of age, Female, with history of metastatic | | left renal cancer, referred for evaluation of osseous metastasis. COMPARISON: Outside CT | | abdomen pelvis 07/27/2019. TECHNIQUE: Radiopharmaceutical: Tc-99m MDP 23.169 mCi | | intravenously. The intravenous administration of the radiopharmaceutical was | | uneventful. Approximately two and a half hours later, the patient returned for planar | | images of the whole body in anterior and posterior projections. Additional spot views of | | the spine, arms and skull were obtained. Additional SPECT/CT of the L-spine was | | performed. FINDINGS: Foci of uptake suggestive of degenerative changes involving the | | right sternoclavicular joint, bilateral shoulders, bilateral knees. There is a cold | | lytic lesion within the left and anterior aspect of L2 vertebral body. The right side of | | the L2 vertebral body shows increased uptake, without CT correlate. No further | | suspicious osseous uptake is present. There is absence of left renal uptake, secondary | | to known left renal cancer. Soft tissue distribution of the radiopharmaceutical is | | otherwise normal. The right kidney and urinary bladder are visualized per normal | | clearance of the radiopharmaceutical. Large left renal infiltrative mass is again noted | | a low-dose CT. IMPRESSION: Lytic metastatic cold bone scan lesion within the | | left/anterior aspect of the L2 vertebral body, with adjacent hot lesion on the right | | side of L2 vertebral body, that may represent a non-lytic part of the adjacent | | metastasis or pathologic fracture of L2. I have personally reviewed the images and, if | | necessary, edited the report. I agree with the report as now presented. Final | | signature: Capo Hebert MD 08/23/2019 5:25 PM Preliminary: Jose Cruz Ambrocio MD | | 08/23/2019 5:20 PM Dictation initiated: Jose Cruz Ambrocio MD 08/23/2019 4:49 PM | |IMPRESSION: | | | |Lytic metastatic cold bone scan lesion within the left/anterior aspect of the L2 vertebral body, with adjacent hot lesion on the right side of L2 vertebral body, that may represent a non-lytic part of the adjacent | |metastasis or pathologic fracture of L2. | | | |I have personally reviewed the images and, if necessary, edited the report. I agree with th e report as now presented. | | | |Final signature: Capo Hebert MD 08/23/2019 5:25 PM | |Preliminary: Jose Cruz Ambrocio MD 08/23/2019 5:20 PM | |Dictation initiated: Jose Cruz Ambrocio MD 08/23/2019 4:49 PM | + + + +---------+ + + | Performing | Address | City/State/Zipcode | Phone Number | | Organization | | | | + +---------+ + + | [facility] | | | | | VOICE RECOGNITION 2 | | | | + +---------+ + + documented in this encounter Visit Diagnoses + + | Diagnosis | + + | Kidney cancer, primary, 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
--- OUTSIDE RECORDS SUMMARY | ~2020-06-29 | XMS | Encounter Summary ---
Demographics + + + | Address | [address] | | | [place] [address] | + + + | Home Phone | | + + + | Preferred Language | Unknown | + + + | Marital Status | | + + + | Buddhist Affiliation | 1013 | + + + | Race | or Other | + + + | Ethnic Group | Not or | + + + Author + + + | Author | [facility] | | | and [place] | + + + | Organization | [facility] | | | and [place] | + + + | Address | Unknown | + + + | Phone | Unavailable | + + + Support + + +---------+ + | Name | Relationship | Address | Phone | + + +---------+ + | William Talavera | ECON | Unknown | | + + +---------+ + | Dillon Altman | ECON | Unknown | | + + +---------+ + Care Team Providers + +------+ + | Care Catcher Filter Tip Name | Role | Phone | + +------+ + PCP | Unavailable | + +------+ + Encounter Details +--------+ + + + + | Date | Type | Department | Care Team | Description | +--------+ + + + + | 07/17/ | [facility] | [facility] | Dick [place] | | | 1999 | Encounter | MED CTR GENERIC OP | MD Jodie | | | | | CONV DEPT [address] | | | | | | [address], | | | | | | [place] [address] | | | | | | [phone] | | | +--------+ + + + [...]
--- OUTSIDE RECORDS SUMMARY | ~2020-06-29 | XMS | Encounter Summary ---
Demographics + + + | Address | [address] | | | [place] [address] | + + + | Home Phone | | + + + | Preferred Language | Unknown | + + + | Marital Status | | + + + | Latter Day Affiliation | 1013 | + + + | Race | or Other | + + + | Ethnic Group | Not or | + + + Author + + + | Author | [facility] | | | and [place] | + + + | Organization | [facility] | | | and [place] | [...] Team Providers + +------+ + | Care Water Pump Operator Name | Role | Phone | + +------+ + PCP | Unavailable | + +------+ + Encounter Details +--------+ + + + + | Date | Type | Department | Care Team | Description | +--------+ + + + + | 10/26/ | Hospital | [facility] | | | | 2003 - | Encounter | MED CTR CANCER | | | | | | CENTER [address] | | | | 02/18/ | | [place] | | | | 2003 | | [address] | | | | | | [phone] | | | +--------+ + + + [...]
--- OUTSIDE RECORDS SUMMARY | ~2020-06-29 | XMS | Encounter Summary ---
Demographics + + + | Address | [address] | | | [place] [address] | + + + | Home Phone | | + + + | Preferred Language | Unknown | + + + | Marital Status | Single | + + + | Jew Affiliation | CHR | + + + [...] Team Providers + +------+ + | Care Mall Plant Caretaker Name | Role | Phone | + +------+ + | Lissette Martinez PA-C | PCP | | + +------+ + Encounter Details +--------+--------+ + + + | Date | Type | Department | Care Team | Description | +--------+--------+ + + + | 07/27/ | Intake | Transfer Center | | | | 2019 | | [address] | | | | | | [place], | | | | | | [place] [address] | | | +--------+--------+ + + + Social History + +-------+ [...]
--- OUTSIDE RECORDS SUMMARY | ~2020-06-29 | XMS | Encounter Summary ---
Demographics + + + | Address | [address] | | | [place] [address] | + + + | Home Phone | | + + + | Preferred Language | Unknown | + + + | Marital Status | Single | + + + | Zoroastrianism Affiliation | CHR | + + + [...] Team Providers + +------+ + | Care Fruit Culler Name | Role | Phone | + +------+ + | Lissette Martinez PA-C | PCP | | + +------+ + Reason for Visit Intake Referral (Urgent) + +---------+ + + + + | Status | Reason | Specialty | Diagnoses / | Referred By | Referred To | | | | | Procedures | Contact | Contact | + +---------+ + + + + | Authorized | Other | Hematology & | Diagnoses | Juan | Karen, | | | | Oncology | Malignant | Lissette | Lissette, | | | | | neoplasm of | RADHA Curran | [address] | | | | | unspecified | [place] | [address] | | | | | kidney, | Family | [place], | | | | | except renal | Medicine | [place] [address] | | | | | pelvis | [address] | Phone: | | | | | Procedures | [address] | [phone] | | | | | [place] NEW | [place], | Fax: | | | | | PATIENT | [place] [address] | [phone] | | | | | [address] [address] [place] | Phone: | | | | | | EST PATIENT | [phone] | | | | | | LEVEL V | Fax: | | | | | | | [phone] | | + +---------+ + + + + Encounter Details +--------+---------+ + + + | Date | Type | Department | Care Team | Description | +--------+---------+ + + + | 08/23/ | Office | [facility] | Lissette Jones, | Renal cell carcinoma | | 2019 | Visit | Clinics at S | [place] [address] [address] | of left kidney | | | | [place] [address] | (HCC) (Primary Dx) | | | | [facility] | [place], [place] | | | | | [facility] and He[facility], | [address] | | | | | [address] | [phone] | | | | | [place], [place] | | | | | | [address] | | | | | | [phone] | | | +--------+---------+ + + + Social History + +-------+ [...] documented as of this encounter Progress Notes Lissette Jones MD - 08/23/2019 4:05 PM PSTErroneous encounter documented in this encounter Plan of Treatment Not on filedocumented as of this encounter Visit Diagnoses + + | Diagnosis | + + | 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
--- OUTSIDE RECORDS SUMMARY | ~2020-06-29 | XMS | Encounter Summary ---
Demographics + + + | Address | [address] | | | [place] [address] | + + + | Home Phone | | + + + | Preferred Language | Unknown | + + + | Marital Status | Single | + + + | Taoist Affiliation | CHR | + + + | Race | White | + + + | Ethnic Group | Not or | + + + Author + + + | Author | [facility] | + + + | Organization | [facility] | + + + | Address | Unknown | + + + | Phone | Unavailable | + + + Support + + +---------+ + | Name | Relationship | Address | Phone | + + +---------+ + | William Talavera | ECON | Unknown | | + + +---------+ + Care Team Providers + +------+ + | Care Proof Coins Inspector Name | Role | Phone | + [...] | neoplasm of | RADHA Curran | [address] | | | | | unspecified | [place] | [address] | | | | | kidney, | Family | [place], | | | | | except renal | Medicine | [place] [address] | | | | | pelvis | [address] | Phone: | | | | | Procedures | [address] | [phone] | | | | | CO NEW | [place], | Fax: | | | | | PATIENT | [place] [address] | [phone] | | | | | LEVEL V CO | Phone: | | | | | | EST PATIENT | [phone] | | | | | | LEVEL V | Fax: | | | | | | | [phone] | | + +---------+ + + + + Encounter Details +--------+ + + + + | Date | Type | Department | Care Team | Description | +--------+ + + + + | 05/15/ | Video/TeleH | [facility] | Lissette Jones, | | | 2020 | ealth-Sched | Clinics at S | [place] [address] | | | | uled | [facility] [address] | | | | | [facility] | [place], [place] | | | | | Health and Healing, | [address] | | | | | [address] | [phone] | | | | | [place], [place] | | | | | | [address] | | | | | | [phone] | | | +--------+ + + + [...] encounter Progress Notes Lissette Jones MD - 05/15/2020 12:20 PM PDTFormatting of this note might be different fr om the original. The visit took place via secure, synchronous audio and video technology with the provider v irtmary jo located at the distant site of [facility]. The patient stated they were located at the [facility] site of [place] and were in the state of [place] at the time of the virtual visit. The n da of all additional persons participating in the virtual visit and their roles are: shiv nt. I have spent a total of 20 minutes on this patient's care today. This time includes the vi rtual visit [id number] time with the patient as well as time spent reviewing patient recor ds, coordinating/communicating with care teams and documenting the patient visit. FOLLOW-UP NOTE Patient: Tila Altman Date: 05/15/2020 : 1965 AGE: 54 y.o. 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, lung, bone and liver Oncology History CT scan 07/27/2019 (ab/p) with large L sided renal lesion invading into renal v ein, large retroperitoneal LN and also liver lesions 08/16/2019 liver biopsy- clear cell carcinoma of kidney 08/23/2019 CT scan - large L sided renal mass, large hepatic metastases, RML/RLL pulmonary nodules, L2 compression fracture with 50% height loss 08/24- 09/01/2019 hospitalization for hypercalcemia and pain, s/p L2 vertebroplasty, pamid ronate for hypercalcemia; workup for hypotension (refractory to IVF) with normal EF, unclear reason for hypotension, d/c on midodrine MRI brain negative for metastatic disease Hodgkins disease 2002 s/p CHOPP and also chest RT Current Treatment S/p L2 kyphoplasty 08/29/2019, treatment for hypercalcemia Ipi/Nivo 09/19/2019- 02/13/2020 with POD S/p SRS to L frontal brain metastases completed 03/07/2020 Cabozantinib- 03/30/2020 Interval History Tila returns today for follow up visit. She was admitted for dehydration, couldn't eat or drink "anything". Last Thursday she was lightheaded and dizzy - admitted for 2 days, re-hydra juice and felt better. She stopped taking cabozantinib a week ago. She's feeling better now bu t still tired- she's now 157 pounds (in the hospital) and she thinks she's gained more weigh t now. Her stomach cramps and nausea have resolved. Back pain is about the same. Impression/Plan Tila Altman is a 54 y.o. 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 She has a remote h/o Hodgkins s/p CHOPP and RT with resultant hypothyroidism S/p 3 cycles of ipi/nivo with hospitalization for hypothyrodism - currently managed by endo crinology Hypothyroidism- on synthroid 150mcg po qday, await TSH Pain - continue oxycodone prn CT 03/12/2020- L kidney lesion slightly smaller 10.5 x 6.7 cm; new disease pulmonary opacitie s with groundglass appearance might be pneumonitis, but progression in liver Started cabozantinib at lower dose 40mg given current performance status- complains of anor exia (lack of appetite), fatigue and weight loss MRI brain 04/19/2020- 2.7x 2.2x 2.7 cm hemorrhagic metastases on L, mild edema, no new lesio ns, repeat MRI in 2 months Will continue to hold cabo for now, obtain scans from [facility] and I will recheck in with her next week; if the scans are sable/responding will decrease dose of cabo to 20mg, if Ct demonstrates progression, will switch therapies or consider palliative care Medications: Current Outpatient Medications Medication Sig apixaban 5 mg oral tablet Take 1 tablet by mouth two times daily. cabozantinib 40 mg oral tablet Take 1 tablet by mouth once daily. Indications: renal ce ll carcinoma cholecalciferol 50,000 unit oral capsule Take 1 capsule by mouth every seven days. Simi cations: vitamin D deficiency (high dose therapy) furosemide (LASIX) 20 mg oral tablet Take 1 tablet by mouth once daily. Iron, Carbonyl 45 mg elemental oral tablet Take by mouth. levothyroxine 100 mcg oral tablet Take 1 tablet by mouth before breakfast. lovastatin 20 mg oral tablet Take 20 mg by mouth once daily in the evening. Administer with evening meal. omeprazole 20 mg oral capsule,delayed release(DR/EC) Take 1 capsule by mouth two times daily. Administer 30 to 60 minutes before meals oxyCODONE (immediate release) 5 mg oral tablet Take 1 tablet by mouth every four hours as needed for severe pain. No current facility-administered medications for this visit. Review of Systems: A 13 point review of systems was performed and is negative except as above in the HPI. Laboratory: LAB RESULTS: No visits with results within 1 Day(s) from this visit. Latest known visit with results is: Telephone on 03/31/2020 Component Date Value GLUCOSE, PLASMA (LAB) 04/12/2020 119 BUN, PLASMA (LAB) 04/12/2020 22 CREATININE PLASMA (LAB) 04/12/2020 1.03 TOTAL PROTEIN, PLASMA (L* 04/12/2020 5.7 ALBUMIN, PLASMA (LAB) 04/12/2020 3.5 CALCIUM, PLASMA (LAB) 04/12/2020 8.6 BILIRUBIN TOTAL 04/12/2020 2.4 ALK PHOS 04/12/2020 185 AST(SGOT) 04/12/2020 130 SODIUM, PLASMA (LAB) 04/12/2020 142 POTASSIUM, PLASMA (LAB) 04/12/2020 4.7 CHLORIDE, PLASMA (LAB) 04/12/2020 107 TOTAL CO2, PLASMA (LAB) 04/12/2020 20 ALT (SGPT) 04/12/2020 47 A/G RATIO 04/12/2020 1.6 WHITE CELL COUNT 04/12/2020 2.2 RED CELL COUNT 04/12/2020 33.93 HEMOGLOBIN 04/12/2020 11.5 HEMATOCRIT 04/12/2020 35.1 MCV 04/12/2020 89.3 MCH 04/12/2020 29 MCHC 04/12/2020 33 PLATELET COUNT 04/12/2020 188 NEUTROPHIL % 04/12/2020 76.5 LYMPHOCYTE % 04/12/2020 9.1 RDW 04/12/2020 17.9 Lissette Jones MD d ocumented in this encounter Plan of Treatment Not on filedocumented as of this encounter Visit Diagnoses + + | Diagnosis | + + | Kidney cancer, primary, with metastasis from kidney to other site, left (HCC) - | | Primary | + + documented in this encounter
--- OUTSIDE RECORDS SUMMARY | ~2020-06-29 | XMS | Encounter Summary ---
Demographics + + + | Address | [address] | | | [place] [address] | + + + | Home Phone [...] Author + + + | Author | [facility] | + + + | Organization | [facility] | + + + | Address | Unknown | + + + | Phone | Unavailable | + + + Support + + +---------+ + | Name | Relationship | Address | Phone | + + +---------+ + | William Talavera | ECON | Unknown | | + + +---------+ + Care Team Providers + +------+ + | Care Behavioral Geneticist Name | Role | Phone | + +------+ + | Lissette Martinez PA-C | PCP | | + +------+ + Encounter Details +--------+ + + + + | Date | Type | Department | Care Team | Description | +--------+ + + + + | 09/01/ | Pharmacy | Outpatient Retail | | | | 2019 | Visit | [facility] | | | | | | [address] | | | | | | [address] [place], [place] | | | | | | [address] | | | | | | [phone] | | | +--------+ + + + [...]
--- OUTSIDE RECORDS SUMMARY | ~2020-06-29 | XMS | Encounter Summary ---
Demographics + + + | Address | [address] | | | [place] [address] | + + + | Home Phone | | + + + | Preferred Language | Unknown | + + + | Marital Status | Single | + + + | Muslim Affiliation | CHR | + + + | Race | White | + + + | Ethnic Group | Not or | + + + Author + + + | Author | [facility] | + + + | Organization | [facility] | + + + | Address | Unknown | + + + | Phone | Unavailable | + + + Support + + +---------+ + | Name | Relationship | Address | Phone | + + +---------+ + | William Talavera | ECON | Unknown | | + + +---------+ + Care Team Providers + +------+ + | Care Commissary Clerk Name | Role | Phone | + +------+ + | Lissette Martinez PA-C | PCP | | + +------+ + Reason for Visit + +--------+ + | Reason | Onset | Comments | | | Date | | + +--------+ + | Covid19 Screening | 03/08/ | | | | 2020 | | + +--------+ + Encounter Details +--------+ + + + + | Date | Type | Department | Care Team | Description | +--------+ + + + + | 03/08/ | Telephone | [facility] | Lissette Jones, | Covid19 Screening | | 2020 | | [place] | [address] | | | | | [address] [address] | | | | | [place], [place] | [place], [place] | | | | | [address] | [address] | | | | | [phone] | [phone] | | | | | | | | +--------+ + + + [...] in contact | No / Unsure | 03/06/2020 9:04 AM | | with someone who was [...] + + documented as of this encounter Miscellaneous Notes Telephone Encounter - Cris Echeverria MA - 03/08/2020 12:35 PM PDTKCI COVID-19 24 hr Screen Symptoms: Cough: No Fever: No Sore Throat: No Shortness of Breath: No Exposure Assessment: Tested for COVID-19: No Contact with COVID-19 Positive or Suspected Individual: No documented in this enco unter Plan of Treatment Not on filedocumented as of this encounter Visit Diagnoses Not on filedocumented in this encounter"
--- OUTSIDE RECORDS SUMMARY | ~2020-06-29 | XMS | Encounter Summary ---
Demographics + + + | Address | [address] | | | [place] [address] | + + + | Home Phone | | + + + | Preferred Language | Unknown | + + + | Marital Status | | + + + | Shinto Affiliation | 1013 | + + + | Race | or Other | + + + | Ethnic Group | Not or | + + + Author + + + | Author | [facility] | | | and [place] | + + + | Organization | [facility] | | | and [place] [...] Team Providers + +------+ + | Care Communications And Signals Supervisor Name | Role | Phone | + +------+ + | Lissette Martinez | PCP | | | RADHA | | | + +------+ + Encounter Details +--------+ + + + + | Date | Type | Department | Care Team | Description | +--------+ + + + + | 12/11/ | Hospital | [facility] | Aileen Denson | | | 2020 | Encounter | MED CTR RADIATION | [place] [address] | | | | | ONCOLOGY [address] | [facility] [place] | | | | | Located Within [facility], | [address] | | | | | [place] [address] | | | | | | [phone] | | | +--------+ + + + [...] Comments | + + +---------+ + | Never | | | | + + +---------+ + + + + + | Alcohol Habits | Answer | Date Recorded | + + + + | How often do you have a drink containing | Never | 12/07/2019 | | alcohol? | | | + + + + | How many drinks containing alcohol do you | Not asked | | | have on a typical day when you are | | | | drinking? | | | + + + + | How often do you have six or more drinks on | Not asked | | | one occasion? | | | + + + + + + + | Sex Assigned [...] +---------+ + + | cholecalciferol | Take 50,000 Units by | | 0 | 08/31/20 | | | (D3-50) 1.25 mg | mouth Once a week. | | | 19 | | | (50,000 units) | | | | | | | capsule | | | | | | + + + +---------+ + + | docusate-senna | Take 1 tablet by | | 0 | 11/29/19 | | | (SENOKOT-S) 50-8.6 | mouth. | | | 20 | | | mg per tablet | | | | | | + + + +---------+ + + | enoxaparin | Inject 80 mg under | | 0 | 11/28/19 | | | (LOVENOX) 80 mg/0.8 | the skin every 12 | | | 20 | | | mL injection | hours. | | | | | + + + +---------+ + + | levothyroxine | Take 100 mcg by | | 0 | 11/29/19 | | | (SYNTHROID) 100 mcg | mouth. | | | 20 | | | tablet | | | | | | + + + +---------+ + + | lovastatin | Take 20 mg by mouth. | | 0 | | | | (MEVACOR) 20 mg | | | | | | | tablet | | | | | | + + + +---------+ + + | omeprazole | Take 20 mg by mouth. | | 0 | 08/30/20 | | | (PRILOSEC) 20 mg | | | | 19 | | | capsule | | | | | | + + + +---------+ + + | oxyCODONE | Take 5 mg by mouth | | 0 | 11/10/19 | | | (ROXICODONE) 5 mg | every 6 hours as | | | 20 | | | tablet | needed. | | | | | + + + +---------+ + + | polyethylene | Take 17 g by mouth. | | 0 | 11/29/19 | | | glycol (MIRALAX) | | | | 20 | | | powder | | | | | | + + + +---------+ + + | scopolamine | | | 0 | 12/06/19 | | | (TRANSDERM-SCOP) 1 | | | | 20 | | | mg/3 days patch | | | | | | + + + +---------+ + + documented as of this encounter Plan of Treatment Not on filedocumented as of this encounter Visit Diagnoses Not on filedocumented in this encounter"
--- OUTSIDE RECORDS SUMMARY | ~2020-06-29 | XMS | Encounter Summary ---
Demographics + + + | Address | [address] | | | [place] [address] | + + + | Home Phone | | + + + | Preferred Language | Unknown | + + + | Marital Status | Single | + + + | Roman Catholic Affiliation | CHR | + + + | Race | White | + + + | Ethnic Group | Not or | + + + Author + + + | Author | [facility] | + + + | Organization | [facility] | + + + | Address | Unknown | + + + | Phone | Unavailable | + + + Support + + +---------+ + | Name | Relationship | Address | Phone | + + +---------+ + | William Talavera | ECON | Unknown | | + + +---------+ + Care Team Providers + +------+ + | Care Online Content Coordinator Name | Role | Phone | + +------+ + | Lissette Martinez PA-C | PCP | | + +------+ + Reason for Referral PROC - Dept/Practice Procedure (Routine) +--------+--------+ + + + + | Status | Reason | Specialty | Diagnoses / | Referred By | Referred To | | | | | Procedures | Contact | Contact | +--------+--------+ + + + + | Closed | | Radiation | Diagnoses | Laura, | Chirag, | | | | Oncology | Brain | Kwabena Nettles MD | Antwon Aggarwal MD | | | | | metastases | [address] | [address] | | | | | ([facility]) | Angelito Rosa | [address] | | | | | Procedures | [address] | [address] [place], | | | | | SIMULATION | [place] | [place] | | | | | IMAGING | [address] | [address] | | | | | | Phone: | Phone: | | | | | | [phone] | [phone] | | | | | | Fax: | Fax: | | | | | | [phone] | [phone] | +--------+--------+ + + + + Reason for Visit PROC - Dept/Practice Procedure (Routine) +--------+--------+ + + + + | Status | Reason | Specialty | Diagnoses / | Referred By | Referred To | | | | | Procedures | Contact | Contact | +--------+--------+ + + + + | Closed | | Radiation | Diagnoses | Laura, | Chirag, | | | | Oncology | Brain | Kwabena Nettles MD | Antwon Aggarwal MD | | | | | metastases | [address] | [address] [facility] | | | | | ([facility]) | Angelito Rosa | [address] | | | | | Procedures | [address] | [address] [place], | | | | | SIMULATION | [place] | [place] | | | | | IMAGING | [address] | [address] | | | | | | Phone: | Phone: | | | | | | [phone] | [phone] | | | | | | Fax: | Fax: | | | | | | [phone] | [phone] | +--------+--------+ + + + + Encounter Details +--------+ + + + + | Date | Type | Department | Care Team | Description | +--------+ + + + + | 03/06/ | Hospital | Radiation Oncology | | | | 2020 | Encounter | at [facility] [address] | | | | | | [address] | | | | | | [address] | | | | | | [place], [place] | | | | | | [address] | | | | | | [phone] | | | +--------+ + + + [...] | + +--------+ + + + | SIMULATION IMAGING | Routin | 03/06/2020 | Brain metastases | Results for this | | | e | 12:07 PM | (HCC) | procedure are in the | | | | PDT | | results section. | + +--------+ + + + documented in this encounter Results SIMULATION IMAGING (03/06/2020 12:07 PM PDT) + + | Specimen | + + | | + + + + + | Narrative | Performed At | + + + | Refer to the encounter notes for imaging results. | [facility] | | | RADIOLOGY | + + + + +---------+ + + | Performing | Address | City/State/Zipcode | Phone Number | | Organization | | | | + +---------+ + + | [facility] | | | | + +---------+ + + documented in this encounter Visit Diagnoses + + | Diagnosis | + + | Brain metastases (HCC) Secondary malignant neoplasm of brain and spinal cord | + + documented in this encounter"
--- OUTSIDE RECORDS SUMMARY | ~2020-06-29 | XMS | Encounter Summary ---
Demographics + + + | Address | [address] | | | [place] [address] | + + + | Home Phone | | + + + | Preferred Language | Unknown | + + + | Marital Status | Single | + + + | Oriental Orthodox Affiliation | CHR | + + + | Race | White | + + + | Ethnic Group | Not or | + + + Author + + + | Author | [facility] | + + + | Organization | [facility] | + + + | Address | Unknown | + + + | Phone | Unavailable | + + + Support + + +---------+ + | Name | Relationship | Address | Phone | + + +---------+ + | William Talavera | ECON | Unknown | | + + +---------+ + Care Team Providers + +------+ + | Care Bods Developer Name | Role | Phone | + +------+ + | Lissette Martinez PA-C | PCP | | + +------+ + Reason for Visit + +--------+ + | Reason | Onset | Comments | | | Date | | + +--------+ + | Appointment | 03/31/ | virtual 6 week follow up | | | 2020 | | + +--------+ + Encounter Details +--------+ + + + + | Date | Type | Department | Care Team | Description | +--------+ + + + + | 03/31/ | Telephone | [facility] | Lissette Jones, | Appointment (virtual | | 2019 | | Clinics at S | [place] [address] | 6 week follow up) | | | | [facility] [address] | | | | | [facility] | [place], [place] | | | | | Health and Healing, | [address] | | | | | [address] | [phone] | | | | | [place], [place] | | | | | | [address] | | | | | | [phone] | | | +--------+ + + + [...] in contact | No / Unsure | 03/12/2020 9:07 AM | | with someone who was [...] documented as of this encounter Miscellaneous Notes Addendum Note - Tess Delaney MA - 04/17/2020 3:45 PM PDT Addended by: LIA DELANEY on: 04/17/2020 03:45 PM Modules accepted: Orders documented in thi s encounter Plan of Treatment Not on filedocumented as of this encounter Procedures + +--------+ + + + | Procedure Name | Priori | Date/Time | Associated Diagnosis | Comments | | | ty | | | | + +--------+ + + + | CBC, WITH | Routin | 04/12/2020 | | Results for this | | DIFFERENTIAL | e | | | procedure are in the | | | | | | results section. | + +--------+ + + + | COMPLETE METABOLIC | Routin | 04/12/2020 | | Results for this | | SET | e | | | procedure are in the | | (NA,K,CL,CO2,BUN,CRE | | | | results section. | | AT,GLUC,CA,AST,ALT,B | | | | | | MARTIN TOTAL,ALK | | | | | | PHOS,ALB,PROT TOTAL) | | | | | + +--------+ + + + documented in this encounter Results CBC, WITH DIFFERENTIAL (04/12/2020) + +-------+ + + + | Component | Value | Ref Range | Performed | Pathologist | | | | | At | Signature | + +-------+ + + + | WHITE CELL | 2.2 | 4.5 - 11.0 K/cu | NON [facility] | | | COUNT | | mm | LAB | | + +-------+ + + + | RED CELL | 33.93 | 3.8 - 5.1 M/cu | NON [facility] | | | COUNT | | mm | LAB | | + +-------+ + + + | HEMOGLOBIN | 11.5 | 12.0 - 16.0 | NON [facility] | | | | | g/dL | LAB | | + +-------+ + + + | HEMATOCRIT | 35.1 | 35 - 45 % | NON [facility] | | | | | | LAB | | + +-------+ + + + | MCV | 89.3 | 81 - 99 fL | NON [facility] | | | | | | LAB | | + +-------+ + + + | MCH | 29 | 27 - 33 pg | NON [facility] | | | | | | LAB | | + +-------+ + + + | MCHC | 33 | 30 - 36 g/dL | NON [facility] | | | | | | LAB | | + +-------+ + + + | PLATELET | 188 | 140 - 440 K/cu | NON [facility] | | | COUNT | | mm | LAB | | + +-------+ + + + | NEUTROPHIL | 76.5 | 39 - 80 % | NON [facility] | | | % | | | LAB | | + +-------+ + + + | LYMPHOCYTE | 9.1 | 24 - 44 % | NON [facility] | | | % | | | LAB | | + +-------+ + + + | RDW | 17.9 | 10.5 - 15.0 % | NON [facility] | | | | | | LAB | | + +-------+ + + + + + | Specimen | + + | Blood - Blood | | (substance) | + + + +---------+ + + | Performing | Address | City/State/Zipcode | Phone Number | | Organization | | | | + +---------+ + + | NON [facility] | | | | + +---------+ + + COMPLETE METABOLIC SET (NA,K,CL,CO2,BUN,CREAT,GLUC,CA,AST,ALT,BILI TOTAL,ALK PHOS,ALB,PROT TOTAL) (04/12/2020) + +-------+ + + + | Component | Value | Ref Range | Performed | Pathologist | | | | | At | Signature | + +-------+ + + + | GLUCOSE, | 119 | 70 - 100 mg/dL | NON [facility] | | | PLASMA | | | LAB | | | (LAB) | | | | | + +-------+ + + + | BUN, PLASMA | 22 | 6 - 23 mg/dL | NON [facility] | | | (LAB) | | | LAB | | + +-------+ + + + | CREATININE | 1.03 | 0.70 - 1.33 | NON [facility] | | | PLASMA | | mg/dL | LAB | | | (LAB) | | | | | + +-------+ + + + | TOTAL | 5.7 | 6.0 - 8.3 g/dL | NON [facility] | | | PROTEIN, | | | LAB | | | PLASMA | | | | | | (LAB) | | | | | + +-------+ + + + | ALBUMIN, | 3.5 | 3.5 - 5.0 g/dL | NON [facility] | | | PLASMA | | | LAB | | | (LAB) | | | | | + +-------+ + + + | CALCIUM, | 8.6 | 8.5 - 10.3 | NON [facility] | | | PLASMA | | mg/dL | LAB | | | (LAB) | | | | | + +-------+ + + + | BILIRUBIN | 2.4 | 0.0 - 1.2 | NON [facility] | | | TOTAL | | Transcutaneous | LAB | | | | | Bilirubinometer | | | + +-------+ + + + | ALK PHOS | 185 | 31 - 130 U/L | NON [facility] | | | | | | LAB | | + +-------+ + + + | AST(SGOT) | 130 | 13 - 39 U/L | NON [facility] | | | | | | LAB | | + +-------+ + + + | SODIUM, | 142 | 132 - 143 | NON [facility] | | | PLASMA | | mmol/L | LAB | | | (LAB) | | | | | + +-------+ + + + | POTASSIUM, | 4.7 | 3.6 - 5.1 | NON [facility] | | | PLASMA | | mmol/L | LAB | | | (LAB) | | | | | + +-------+ + + + | CHLORIDE, | 107 | 95 - 112 mmol/L | NON [facility] | | | PLASMA | | | LAB | | | (LAB) | | | | | + +-------+ + + + | TOTAL CO2, | 20 | 19 - 31 mmol/L | [facility] | | | PLASMA | | | LAB | | | (LAB) | | | | | + +-------+ + + + | ALT (SGPT) | 47 | 7 - 52 U/L | NON [facility] | | | | | | LAB | | + +-------+ + + + | A/G RATIO | 1.6 | 1.1 - 2.4 | NON [facility] | | | | | | LAB | | + +-------+ + + + + + | Specimen | + + | Blood - Blood | | (substance) | + + + +---------+ + + | Performing | Address | City/State/Zipcode | Phone Number | | Organization | | | | + +---------+ + + | [facility] | | | | + +---------+ + + documented in this encounter Visit Diagnoses Not on filedocumented in this encounter"
--- OUTSIDE RECORDS SUMMARY | ~2020-06-29 | XMS | Encounter Summary ---
Demographics + + + | Address | [address] | | | [place] [address] | + + + | Home Phone | | + + + | Preferred Language | Unknown | + + + | Marital Status | Single | + + + | Jain Affiliation | CHR | + + + | Race | White | + + + | Ethnic Group | Not or | + + + Author + + + | Author | [facility] | + + + | Organization | [facility] | + + + | Address | Unknown | + + + | Phone | Unavailable | + + + Support + + +---------+ + | Name | Relationship | Address | Phone | + + +---------+ + | William Talavera | ECON | Unknown | | + + +---------+ + Care Team Providers + +------+ + | Care Billing Collections Specialist Name | Role | Phone | + +------+ + | Lissette Martinez PA-C | PCP | | + +------+ + Encounter Details +--------+ + + + + | Date | Type | Department | Care Team | Description | +--------+ + + + + | 03/20/ | Pharmacy | Pharmacy @ [facility] | | | | 2020 | Visit | [address] | | | | | | [address] Mailcode: | | | | | | [facility] | | | | | | and Healing, | | | | | | [address] | | | | | | [place], [place] | | | | | | [address] | | | +--------+ + + + [...]
--- OUTSIDE RECORDS SUMMARY | ~2020-06-29 | XMS | Encounter Summary ---
Demographics + + + | Address | [address] | | | [place] [address] | + + + | Home Phone | | + + + | Preferred Language | Unknown | + + + | Marital Status | Single | + + + | Rastafari Affiliation | CHR | + + + | Race | White | + + + | Ethnic Group | Not or | + + + Author + + + | Author | [facility] | + + + | Organization | [facility] | + + + | Address | Unknown | + + + | Phone | Unavailable | + + + Support + + +---------+ + | Name | Relationship | Address | Phone | + + +---------+ + | William Talavera | ECON | Unknown | | + + +---------+ + Care Team Providers + +------+ + | Care Investment Executive Name | Role | Phone | + +------+ + | Lissette Martinez PA-C | PCP | | + +------+ + Reason for Visit + + + | Reason | Comments | + + + | Refill Request | | + + + Encounter Details +--------+--------+ + + + | Date | Type | Department | Care Team | Description | +--------+--------+ + + + | 12/29/ | Refill | [facility] | Lissette Jones, | Refill Request | | 2020 | | Clinics at S | [place] [address] | | | | | [address] | | | | | [facility] | [place], [place] | | | | | Health and Healing, | [address] | | | | | [place] [address] | [phone] | | | | | [place], [place] | | | | | | [address] | | | | | | [phone] | | | +--------+--------+ + + + [...] this encounter Miscellaneous Notes Telephone Encounter - Ariana Garcia MA - 01/02/2020 9:10 AM PDTFormatting of this not e might be different from the original. Last appointment with Hipolito Jones MD was on 12/12/19. Next appointment with Hipolito Jones MD is scheduled on 01/09/20. Last LIP progress note reviewed. Is there documentation to indicate that medication being r equested has been changed or discontinued? No Allergy list reviewed--Is the medication being requested on the patient's current allergy l ist? No Previous Prescription Details copied below: Date and Time Department Ordering/Authorizing 12/14/2019 12:54 PM [facility] Lissette Jones MD Outpatient Medication Detail Disp Refills oxyCODONE (immediate release) 5 mg oral tablet 60 tablet 0 Sig: Take 1 tablet by mouth every four hours as needed for breakthrough pain. Sent to pharmacy as: oxyCODONE 5 mg tablet (ROXICODONE) Class: eRx Earliest Fill Date: 12/14/2019 Route: oral Order: [id number] E-Prescribing Status: Receipt confirmed by pharmacy (12/14/2019 12:54 PM PDT) Controlled Substance Requested: Routing to RN Coordinator for review prior to sending to SOLEDAD Vásquez documented in this encounter Plan of Treatment Not on filedocumented as of this encounter Visit Diagnoses Not on filedocumented in this encounter"
--- OUTSIDE RECORDS SUMMARY | ~2020-06-29 | XMS | Encounter Summary ---
Demographics + + + | Address | [address] | | | [place] [address] | + + + | Home Phone | | + + + | Preferred Language | Unknown | + + + | Marital Status | Single | + + + | Gnosticism Affiliation | CHR | + + + | Race | White | + + + | Ethnic Group | Not or | + + + Author + + + | Author | [facility] | + + + | Organization | [facility] | + + + | Address | Unknown | + + + | Phone | Unavailable | + + + Support + + +---------+ + | Name | Relationship | Address | Phone | + + +---------+ + | William Talavera | ECON | Unknown | | + + +---------+ + Care Team Providers + +------+ + | Care Rn Acls Name | Role | Phone | + +------+ + | Lissette Martinez PA-C | PCP | | + +------+ + Reason for Visit + +--------+ + | Reason | Onset | Comments | | | Date | | + +--------+ + | Pre-imaging | 08/10/ | | | Preparation | 2019 | | + +--------+ + Encounter Details +--------+ + + + + | Date | Type | Department | Care Team | Description | +--------+ + + + + | 08/10/ | Telephone | Diagnostic Imaging | Radiology | Pre-imaging | | 2018 | | Services at [facility] | | Preparation | | | | [address] | | | | | | [place] | | | | | | [facility], [address] [place] [address] | | | | | | [place], [place] | | | | | | [address] | | | | | | [phone] | | | +--------+ + + + [...] this encounter Miscellaneous Notes Telephone Encounter - Jerson William RN - 08/10/2019 9:35 AM PSTCalled patient prior to georgi peace to address the following: Clotting Disorder? Patient states no (Example: Von Willebrand disease, Hemophilia). Specific disorder: On blood thinning medications? Patient states no (Example: Coumadin, Lovenox, Plavix, Pradaxa, Xarelto, Eliquis, Arixtra, Ticlid) Specific medication(s): Blood Thinning Medications: Pt was instructed to call the provider who prescribes anti-coagulant medication to ask if m edication should be stopped prior to the biopsy. Pt advised to communicate to provider to call [phone] with questions. Pt was given pre-procedure instructions: No solid food for 6 hours prior to check in. May have sips of clear liquids, such as apple juice, water or broth up to 2 hours before ch travon-in. Take regularly scheduled medications with sips of water. Must have a responsible person with them to drive them home or accompany them on public tra nsportation. Call [phone] with any questions. documented in this enc ounter Plan of Treatment Not on filedocumented as of this encounter Visit Diagnoses Not on filedocumented in this encounter"
--- OUTSIDE RECORDS SUMMARY | ~2020-06-29 | XMS | Encounter Summary ---
Demographics + + + | Address | [address] | | | [place] [address] | + + + | Home Phone | | + + + | Preferred Language | Unknown | + + + | Marital Status | Single | + + + | Adventism Affiliation | CHR | + + + [...] Team Providers + +------+ + | Care Trapeze Artist Name | Role | Phone | + +------+ + | Lissette Martinez PA-C | PCP | | + +------+ + Reason for Visit + + + | Reason | Comments | + + + | Infusion | | + + + AUTH/CERT +--------+--------+ + + + + | Status | Reason | Specialty | Diagnoses / | Referred By | Referred To | | | | | Procedures | Contact | Contact | +--------+--------+ + + + + | | | | | | | +--------+--------+ + + + + Encounter Details +--------+ + + + + | Date | Type | Department | Care Team | Description | +--------+ + + + + | 08/24/ | Hospital | [facility] | [address] | | | 2019 | Encounter | Clinics at S | [place], [place] | | | | | [facility] [address] | [address] | | | | | [facility] | | | | | | Health and Healing, | | | | | | [address] | | | | | | [place], [place] | | | | | | [address] | | | | | | [phone] | | | +--------+ + + + [...] + + + | Blood Pressure | 96/53 | 08/24/2019 5:40 PM | | | | | PST | | + + + + + | Pulse | 91 | 08/24/2019 5:40 PM | | | | | PST | | + + + + + | Temperature | 36.3 C (97.4 F) | 08/24/2019 1:41 PM | | | | | PST | | + + + + + | Respiratory Rate | 18 | 08/24/2019 5:40 PM | | | | | PST | | + + + + + | Oxygen Saturation | 100% | 08/24/2019 5:40 PM | | | | | PST | | + + + + + | Inhaled Oxygen | - | - | | | Concentration | | | | + + + + + | Weight | 94.6 kg (208 lb 8.9 | 08/24/2019 1:41 PM | | | | oz) | PST | | + + + + + | Height | - | - | | + + + + + | Body Mass Index | 38.15 | 08/16/2019 1:10 PM | | | | | PST | | + + + + + documented in this encounter Medications at Time of Discharge [...] capsule by | 30 | 0 | //20 | | | oral capsule,delayed | mouth two times | capsule | | 19 | | | release(DR/EC) | daily. Administer 30 | | | | | | | to 60 minutes | | | | | | | before meals | | | | | + + + +---------+ + + documented as of this encounter Progress Notes Leonora Ribera RN - 08/24/2019 1:00 PM PSTChemotherapy Nurse Note Name: Tila Altman Date: 08/24/2019 Physician: Karen Allergies: Tila has No Known Allergies. Diagnosis: Renal cell Significant Other: Sister Nursing Assessment: Fever: no; Diarrhea:No Constipation: No SOB / Cough: no; Rash: no Edema: no; Mucositis: no; Urinary: no; Neuropathy: no; S/S Bleeding: no; Severity (1=Not at all, 2=A little, 3=Quite a bit, 4=Very much) Nausea and/or Vomitin Fatigue: 2 Pain: 6 Location: back Duration: newonset Narrative: Patient presents to clinic with hyperkalemia and hypercalcemia. 1 liter NS bolus and pamidronate administered and tolerated well. Positive blood return on IV line prior and after infusion. Pt tolerated without incident. BP responded to IV hydration and vitals rec orded in flow sheet. Md. Jones at chair side to discuss hospital admission for electrolyte im balance and new onset compression fracture/pain control. Pt in agreement with plan. EMT pierson sported pt and report given to ER. Right AC PIV flushed and left in place. Pt Alert & Cutler ed x3, No acute distress and Mood & affect appropriate. Refer to MAR and Onc Lines and Transfusions doc flowsheet for treatment details.Electronica lly signed by Leonora Ribera RN at 08/24/2019 6:47 PM Anisa Palafox RN - 08/24/2019 1:00 PM PSTPatient denies any jaw pain or recent dental work. One failed IV attempt by this RN. On second attempt a 22 gauge PIV placed in patient s ri t antecubital space, using an IV start kit. PIV with excellent blood return. Labs drawn a nd sent. PIV flushed with 10 mL NS without any problems. Sterile transparent dressing applie dJayson Patient tolerated procedure well. 1 liter NS given per Infusion Plan orders.Electronically signed by Anisa Melton RN at 2018 6:51 PM PSTdocumented in this encounter Plan of Treatment + +------+--------+ + + | Name | Type | Priori | Associated Diagnoses | Order Schedule | | | | ty | | | + +------+--------+ + + | COMPLETE METABOLIC | Lab | Urgent | Renal cell | Expected: 08/24/2019 | | SET | | | carcinoma, | (Approximate), | | (NA,K,CL,CO2,BUN,CRE | | | unspecified | Expires: 09/24/2020 | | AT,GLUC,CA,AST,ALT,B | | | laterality (HCC) | | | MARTIN TOTAL,ALK | | | | | | PHOS,ALB,PROT TOTAL) | | | | | + +------+--------+ + + documented as of this encounter Visit Diagnoses + + | Diagnosis | + + | 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) - Primary | + + | Hypercalcemia of malignancy Hypercalcemia | + + | Renal cell carcinoma, unspecified laterality (HCC) | + + documented in this encounter Administered Medications + +---------+ +-------+-------+------+ | Medication Order | MAR | Action | Dose | Rate | Site | | | Action | Date | | | | + +---------+ +-------+-------+------+ | pamidronate (AREDIA) 90 mg in | New Bag | 08/24/20 | 90 mg | 265 | | | sodium chloride (NS) 0.9 % IV 90 | | 19 3:16 | | mL/hr | | | mg, intravenous, Administer over | | PM PST | | | | | 2 Hours, ONCE, 1 dose, Wed | | | | | | | 08/24/19 at 1445 | | | | | | + +---------+ +-------+-------+------+ +---+---+ | | | +---+---+ + +---------+ + +---+---+ | sodium chloride (NS) 0.9 % | New Bag | 08/24/20 | 1,000 mL | | | | bolus 1,000 mL 1,000 mL, | | 19 3:39 | | | | | intravenous, ONCE, 1 dose, Wed | | PM PST | | | | | 08/24/19 at 1430 | | | | | | + +---------+ + +---+---+ +---+---+ | | | +---+---+ documented in this encounter"
--- OUTSIDE RECORDS SUMMARY | ~2020-06-29 | XMS | Encounter Summary ---
Demographics + + + | Address | [address] | | | [place] [address] | + + + | Home Phone [...] Team Providers + +------+ + | Care Field Hockey Coach Name | Role | Phone | + +------+ + | Lissette Martinez PA-C PCP | | + +------+ + Encounter Details +--------+--------+ + + + | Date | Type | Department | Care Team | Description | +--------+--------+ + + + | 03/06/ | Travel | | | | | [...]
--- OUTSIDE RECORDS SUMMARY | ~2020-06-29 | XMS | Encounter Summary ---
Demographics + + + | Address | [address] | | | [place] [address] | + + + | Home Phone | | + + + | Preferred Language | Unknown | + + + | Marital Status | Single | + + + | Adventist Affiliation | CHR | + + + | Race | White | + + + | Ethnic Group | Not or | + + + Author + + + | Author | [facility] | + + + | Organization | [facility] | + + + | Address | Unknown | + + + | Phone | Unavailable | + + + Support + + +---------+ + | Name | Relationship | Address | Phone | + + +---------+ + | William Talavera | ECON | Unknown | | + + +---------+ + Care Team Providers + +------+ + | Care Banking Representative Name | Role | Phone | + +------+ + | Lissette Martinez PA-C | PCP | | + +------+ + Encounter Details +--------+ + + + + | Date | Type | Department | Care Team | Description | +--------+ + + + + | 08/30/ | Procedure | Diagnostic Imaging | | | | 2018 | Pass | Services at [facility] | | | | | | [address] | | | | | | [place] | | | | | | [facility] | | | | | | [place], [place] | | | | | | [address] | | | | | | [phone] | | | +--------+ + + + [...]
--- OUTSIDE RECORDS SUMMARY | ~2020-06-29 | XMS | Encounter Summary ---
Demographics + + + | Address | [address] | | | [place] [address] | + + + | Home Phone [...] Team Providers + +------+ + | Care Community Facilitator Name | Role | Phone | + +------+ + | Lissette Martinez PA-C | PCP | | + +------+ + Encounter Details +--------+ + + + + | Date | Type | Department | Care Team | Description | +--------+ + + + + | 03/16/ | Pharmacy | Pharmacy @ [facility] | | | | 2020 | Visit | [address] | | | | | | [address] Mailcode: | | | | | | [facility] | | | | | | and Healing, | | | | | | [address] | | | | | | [place], [place] | | | | | | [address] | | | +--------+ + + + [...]
--- OUTSIDE RECORDS SUMMARY | ~2020-06-29 | XMS | Encounter Summary ---
Demographics + + + | Address | [address] | | | [place] [address] | + + + | Home Phone | | + + + | Preferred Language | Unknown | + + + | Marital Status | Single | + + + | Restorationism Affiliation | CHR | + + + | Race | White | + + + | Ethnic Group | Not or | + + + Author + + + | Author | [facility] | + + + | Organization | [facility] | + + + | Address | Unknown | + + + | Phone | Unavailable | + + + Support + + +---------+ + | Name | Relationship | Address | Phone | + + +---------+ + | William Talavera | ECON | Unknown | | + + +---------+ + Care Team Providers + +------+ + | Care Cutter Out Name | Role | Phone | + +------+ + | Lissette Martinez PA-C | PCP | | + +------+ + Reason for Visit + +--------+ + | Reason | Onset | Comments | | | Date | | + +--------+ + | Education | 09/12/ | | | | 2020 | | + +--------+ + Encounter Details +--------+ + + + + | Date | Type | Department | Care Team | Description | +--------+ + + + + | 09/12/ | Telephone | [facility] | Lissette Jones, | Education | | 2019 | | Clinics at S | [place] [address] | | | | | [place] [address] | | | | | [facility] | [place], [place] | | | | | Health and Healing, | [address] | | | | | [address] | [phone] | | | | | [place], [place] | | | | | | [address] | | | | | | [phone] | | | +--------+ + + + [...] this encounter Miscellaneous Notes Telephone Encounter - Giovanna Tomas RN - 09/12/2019 1:42 PM PSTAsked to meet with patient an d family in clinic to review ipi/nivo information. Reviewed medication information, when to call office and addressed scheduling questions. See pt education tab. New Treatment Planning Patient to start the following treatment (No abbreviations): ipilimumab and nivolumab Treatment is given every 21 for 4 cycles Additional appointments needed: N/A Additional Scheduling Instructions Offer Chemo Class Provider visit frequency: 21 day(s) Ok to see BARGE ENGINEER/PA: Yes The following treatments/appointments may be scheduled at a [facility] Site: n/a Treatment Room Assessment LINE ACCESS INFO: PIVs OK. Vein assessment done on KM by 09/12. Specialized equipment needed: n/a Isolation needed: no Mobility issues: Independent with ADLs Toileting issues: Independent Psych/Social issues: none SNF/Living Facility: N/A Spray Ii Painter needed for future appointments: No Patient is participating in a Clinical Trial: No documented in this encount er Plan of Treatment Not on filedocumented as of this encounter Visit Diagnoses Not on filedocumented in this encounter"
--- OUTSIDE RECORDS SUMMARY | ~2020-06-29 | XMS | Encounter Summary ---
Demographics + + + | Address | [address] | | | [place] [address] | + + + | Home Phone | | + + + | Preferred Language | Unknown | + + + | Marital Status | | + + + | Hinduism Affiliation | 1013 | + + + | Race | or Other | + + + | Ethnic Group | Not or | + + + Author + + + | Author | [facility] | | | and Shahram | + + + | Organization | [facility] | | | and [place] | [...] Team Providers + +------+ + | Care Biological Aide Name | Role | Phone | + +------+ + PCP | Unavailable | + +------+ + Encounter Details +--------+ + + + + | Date | Type | Department | Care Team | Description | +--------+ + + + + | 03/20/ | Hospital | [facility] | | | | 2008 - | Encounter | [facility] | | | | | | CENTER [address] | | | | 04/06/ | | [place] | | | | 2008 | | [address] | | | | | | [phone] | | | +--------+ + + + [...]
--- OUTSIDE RECORDS SUMMARY | ~2020-06-29 | XMS | Encounter Summary ---
Demographics + + + | Address | [address] | | | [place] [address] | + + + | Home Phone | | + + + | Preferred Language | Unknown | + + + | Marital Status | Single | + + + | Uatsdin Affiliation | CHR | + + + | Race | White | + + + | Ethnic Group | Not or | + + + Author + + + | Author | [facility] | + + + | Organization | [facility] | + + + | Address | Unknown | + + + | Phone | Unavailable | + + + Support + + +---------+ + | Name | Relationship | Address | Phone | + + +---------+ + | William Talavera | ECON | Unknown | | + + +---------+ + Care Team Providers + +------+ + | Care Mold Worker Name | Role | Phone | + +------+ + | Lissette Martinez PA-C | PCP | | + +------+ + Reason for Visit + +--------+ + | Reason | Onset | Comments | | | Date | | + +--------+ + | Seizure, NOS | 05/01/ | | | | 2020 | | + +--------+ + Encounter Details +--------+ + + + + | Date | Type | Department | Care Team | Description | +--------+ + + + + | 05/01/ | Telephone | Radiation Oncology | Antwon Beard, | Seizure, NOS | | 2020 | | at [facility] [address] | [place] [address] [facility] | | | | | [address] [place] | [facility] | | | | | [place] | [place], [place] | | | | | [place] | [address] | | | | | | [phone] | | | | | [phone] | | | +--------+ + + + [...] this encounter Miscellaneous Notes Telephone Encounter - Hemanth Cardenas RN - 05/02/2020 3:01 PM PDTAfter huddle discussion with Dr. Beard, no orders for dexamethasone at this time. Have patient monitor symptoms and call [facility] clinic for any new or worsening symptoms. Reviewed ED precautions as well. Gave patient daytime and after hours phone numbers for [facility] clinic. No further action required at this time. Will route to LIZZ Virgen to keep on radar for 2-3 mth follow up appt with brain MRI sandra bass. elephone Yenny nter - Hemanth Cardenas RN - 05/02/2020 11:02 AM PDTSituation: Was able to speak with patient via telephone regarding recent seizure activity. Background: 54 y.o. female with PMHx significant for classic Hodgkin's Disease (2001; prior CHOP and co nsolidative chest RT). In August of 2019 she was diagnosed with Stage IV renal cell carcin adamaris, clear cell type, with findings of a 3.8 cm left renal mass (invaion of renal vein), a l ytic L2 vertebral lesion (with fracture and 50% height loss) and multiple hepatic metastases . She presented with a newly diagnosed single LEFT frontal brain metastasis which we treated with SRS to 15 Gy on 03/07/20. Assessment: Patient reports she had a seizure on 04/28/2020 that lasted for 15-20 seconds. She describes this seizure as "twitching" located to her right cheek and mouth, she was nicolasa ble to speak during the seizure, "felt kind of like a muscle spasm". No LOC, no pain, no numbness/tingling. No residual symptoms post seizure and felt fine aft erwards. She has NOT had any seizure activity since this. She says the last time she had this seizure activity was back in February and at that time was diagnosed with her brain lesion. Her last brain MRI was on 04/19/2020 at [facility] radiology and then had a phone follow up with Dr. Beard the next day 04/20/2020 to review imaging which showed stable intracranial fi ndings per Dr. Beard's note. Patient completed her dexamethasone taper back in mid March 2020 post her brain SRS to a lef t frontal lesion on 03/07/2020. She says she thinks she still has some dexamethasone tablets at home in case. Plan: Need for dexamethasone now or monitor? Will route to Dr. Beard for advice. 20 11:26 AM PDTTelephone Encounter - Hemanth Cardenas RN - 05/01/2020 2:56 PM PDTAttempted to reach patient regarding incoming [employer] message sent to Dr. Beard today. Would like to discuss "seizure activity" further. Called patient, No answer, mailbox was full, not able to accept messages. Will reply back to [employer] message for patient to call [facility] and also route [employer] message to Dr. Leelectronically signed by Hemanth Cardenas RN at 05/01/2020 2:58 PM PDT documented in this encounter Plan of Treatment Not on filedocumented as of this encounter Visit Diagnoses Not on filedocumented in this encounter
--- OUTSIDE RECORDS SUMMARY | ~2020-06-29 | XMS | Encounter Summary ---
Demographics + + + | Address | [address] | | | [place] [address] | + + + | Home Phone | | + + + | Preferred Language | Unknown | + + + | Marital Status | Single | + + + | Orthodox Affiliation | CHR | + + + | Race | White | + + + | Ethnic Group | Not or | + + + Author + + + | Author | [facility] | + + + | Organization | [facility] | + + + | Address | Unknown | + + + | Phone | Unavailable | + + + Support + + +---------+ + | Name | Relationship | Address | Phone | + + +---------+ + | William Talavera | ECON | Unknown | | + + +---------+ + Care Team Providers + +------+ + | Care Director Of Recreation Therapy Name | Role | Phone | + +------+ + | Lissette Martinez PA-C | PCP | | + +------+ + Encounter Details +--------+ + + + + | Date | Type | Department | Care Team | Description | +--------+ + + + + | 12/11/ | Pharmacy | Outpatient Retail | | | | 2020 | Visit | Clinic Pharmacy | | | | | | [address] | | | | | | [address] [place], [place] | | | | | | [address] | | | | | | [phone] | | | +--------+ + + + [...]
--- OUTSIDE RECORDS SUMMARY | ~2020-06-29 | XMS | Encounter Summary ---
Demographics + + + | Address | [address] | | | [place] [address] | + + + | Home Phone | | + + + | Preferred Language | Unknown | + + + | Marital Status | | + + + | Quaker Affiliation | [id number] | + + + | Race | or Other | + + + | Ethnic Group | Not or | + + + Author + + + | Author | [facility] | | | and Shahram | + + + | Organization | [facility] | | | and Marcana | [...] Team Providers + +------+ + | Care Position Classification Manager Name | Role | Phone | + +------+ + | Lissette Martinez | PCP | | | RADHA | | | + +------+ + Reason for Visit + +--------+ + | Reason | Onset | Comments | | | Date | | + +--------+ + | IDT Note | 12/13/ | | | | 2019 | | + +--------+ + Encounter Details +--------+ + + + + | Date | Type | Department | Care Team | Description | +--------+ + + + + | 12/13/ | Telephone | [facility] | Talya Dickson, | IDT Note | | 2019 | | [facility] | RN | | | | | [facility] [address] | | | | | | [address] | | | | | | [place] [address] | | | | | | [phone] | | | +--------+ + + + [...] this encounter Miscellaneous Notes Telephone Encounter - Talya Dickson RN - 12/14/2019 11:37 AM PDT [facility] Interdisciplinary Team Navigational Checklist ? Top Priority Discipline EPIC Order Entered Consult Scheduled Consult Complete Comments: *Medical Oncology x *Radiation Oncology Dr. Janiya Velazco 12/13/19 x *Patient Navigation x *Nurse Navigator *Social Service Survivorship Nurse Breast Health Genetics Surgical Input *Nursing assessment *Pharmacy assessment Nutrition Rehab: PT OT Speech & Language Palliative Care Clinical Trials Involvement Adobe Flex Developer Visit Financial Assistance Interdisciplinary Consults Completed Date: documented in this en counter Plan of Treatment Not on filedocumented as of this encounter Visit Diagnoses Not on filedocumented in this encounter"
--- OUTSIDE RECORDS SUMMARY | ~2020-06-29 | XMS | Encounter Summary ---
Demographics + + + | Address | [address] | | | [place] [address] | + + + | Home Phone | | + + + | Preferred Language | Unknown | + + + | Marital Status | Single | + + + | Quaker Affiliation | CHR | + + + | Race | White | + + + | Ethnic Group | Not or | + + + Author + + + | Author | [facility] | + + + | Organization | [facility] | + + + | Address | Unknown | + + + | Phone | Unavailable | + + + Support + + +---------+ + | Name | Relationship | Address | Phone | + + +---------+ + | William Talavera | ECON | Unknown | | + + +---------+ + Care Team Providers + +------+ + | Care Cnc Manufacturing Engineer Name | Role | Phone | + +------+ + | Lissette Martinez PA-C | PCP | | + +------+ + Reason for Visit + +--------+ + | Reason | Onset | Comments | | | Date | | + +--------+ + | Medication Questions | 03/25/ | | | | 2020 | | + +--------+ + Encounter Details +--------+ + + + + | Date | Type | Department | Care Team | Description | +--------+ + + + + | 03/25/ | MyChart | [facility] | Lissette Jones, | RE: Rx Apixaban 5mg | | 2020 | Encounter | Clinics at S | [place] [address] | [address] | | | | [facility] [address] | | | | | [facility] for | [place], [place] | | | | | Health and Healing, | [address] | | | | | [facility] | [phone] | | | | | [place], [place] | | | | | | [address] | | | | | | [phone] | | | +--------+ + + + [...] this encounter Miscellaneous Notes Telephone Encounter - Senthil Landry PharmD - 03/26/2020 2:39 PM PDTPharmacy Doc umentation Care Planning:: 5 Minutes Spent Returned patient's call and informed her that prescription has been transferred to [facility]. Explained that once the medication has been processed through her insurance, they will be the ones to reach out to her to coordinate delivery directly to her house. Erlinda ventura expressed understanding and had no further questions at this time. elephone Carlo Freire - 03/26/2020 2:29 PM PDTPatient calls, asks about when to start c abozantinib. Asks for a call back to follow up. Asks for it to be sent to [facility] in [place] Routing to [facility] and Rx docum ented in this encounter Plan of Treatment Not on filedocumented as of this encounter Visit Diagnoses Not on filedocumented in this encounter"
--- OUTSIDE RECORDS SUMMARY | ~2020-06-29 | XMS | Encounter Summary ---
Demographics + + + | Address | [address] | | | [place] [address] | + + + | Home Phone | | + + + | Preferred Language | Unknown | + + + | Marital Status | Single | + + + | Judaism Affiliation | CHR | + + + | Race | White | + + + | Ethnic Group | Not or | + + + Author + + + | Author | [facility] | + + + | Organization | [facility] | + + + | Address | Unknown | + + + | Phone | Unavailable | + + + Support + + +---------+ + | Name | Relationship | Address | Phone | + + +---------+ + | William Talavera | ECON | Unknown | | + + +---------+ + Care Team Providers + +------+ + | Care Inside Sales Account Executive Name | Role | Phone | + +------+ + | Lissette Martinez PA-C | PCP | | + +------+ + Reason for Visit + +--------+ + | Reason | Onset | Comments | | | Date | | + +--------+ + | Refill Request | 01/17/ | | | | 2020 | | + +--------+ + Encounter Details +--------+--------+ + + + | Date | Type | Department | Care Team | Description | +--------+--------+ + + + | 01/17/ | Refill | [facility] | Lissette Jones, | Refill Request | | 2020 | | Clinics at S | [place] [address] [address] | | | | | [facility] [address] | | | | | [facility] for | [place], [place] | | | | | Health and Healing, | [address] | | | | | [address] | [phone] | | | | | [place], [place] | | | | | | [address] | | | | | | [phone] | | | +--------+--------+ + + + [...] in contact | No / Unsure | 01/09/2020 8:33 AM | | with someone who was [...] Telephone Encounter - Ariana Garcia MA - 01/19/2020 7:48 AM PDTFormatting of this not e might be different from the original. Last appointment with Hipolito Jones MD was on 01/09/20. Next appointment with Hipolito Jones MD is scheduled on 02/13/20. Last [facility] progress note reviewed. Is there documentation to indicate that medication being r equested has been changed or discontinued? No Allergy list reviewed--Is the medication being requested on the patient's current allergy l ist? No Previous Prescription Details copied below: Date and Time Department Ordering/Authorizing 01/02/2020 9:34 AM [facility] Lissette Jones MD Outpatient Medication Detail Disp Refills OXYCODONE (IMMEDIATE RELEASE) 5 mg oral tablet 60 tablet 0 Sig: Take 1 tablet by mouth every four hours as needed for breakthrough pain. Sent to pharmacy as: oxyCODONE 5 mg tablet (ROXICODONE) Class: eRx Earliest Fill Date: 01/02/2020 Route: oral Order: [id number] E-Prescribing Status: Receipt confirmed by pharmacy (01/02/2020 9:34 AM PDT) Per [facility] policy, routing encounter to [facility] for review and approval. elephone Encounter - NavasCarlo - 01/18/2020 10:42 AM PDTPatient is out of Oxycodone, states her pharmacy has been unsuccessful getting in touch with us. Medication Refill Request Ambulatory Oncology What is the name of the provider for this prescription refill request?: Medication prescrib ed by any other [facility]IP Have you already contacted your pharmacy to refill?: Yes, but the [facility]'s pharmacy has not received a response back. Name of medication: Oxycodone Dose: 5 mg Frequency - How often are you taking it?: 1 tablet every 4 hours as needed How much of the prescription do you have left - When will you run out?: none left Pharmacy the patient wants the prescription refilled at: [facility] in [place] Is it ok to leave a confidential voicemail?: Patient approves confidential and detailed mes sages left on answering machine and voicemail. Patient reminded of Clinic Refill Policy: 48-72 business hours to process refill requests. documented in this encount er Plan of Treatment Not on filedocumented as of this encounter Visit Diagnoses Not on filedocumented in this encounter"
--- OUTSIDE RECORDS SUMMARY | ~2020-06-29 | XMS | Encounter Summary ---
Demographics + + + | Address | [address] | | | [place] [address] | + + + | Home Phone | | + + + | Preferred Language | Unknown | + + + | Marital Status | Single | + + + | Yazidi Affiliation | CHR | + + + | Race | White | + + + | Ethnic Group | Not or | + + + Author + + + | Author | [facility] | + + + | Organization | [facility] | + + + | Address | Unknown | + + + | Phone | Unavailable | + + + Support + + +---------+ + | Name | Relationship | Address | Phone | + + +---------+ + | William Talavera | ECON | Unknown | | + + +---------+ + Care Team Providers + +------+ + | Care Funeral Home Associate Name | Role | Phone | + +------+ + | Lissette Martinez PA-C | PCP | | + +------+ + Reason for Visit Diagnostic Testing (Routine) +--------+--------+ + + + + | Status | Reason | Specialty | Diagnoses / | Referred By | Referred To | | | | | Procedures | Contact | Contact | +--------+--------+ + + + + | Closed | | Radiology | Diagnoses | Vuky, | Rad Ct Scan | | | | | Kidney | Lissette, | s [address] | | | | | cancer, | [address] [address] | [address] | | | | | primary, | [address] | [facility] | | | | | with | Ct | Hospital, | | | | | metastasis | [facility], | 10th Floor | | | | | from kidney | [place] | [place], [place] | | | | | to other | [address] | [address] | | | | | site, left | Phone: | Phone: | | | | | (HCC) | [phone] | [phone] | | | | | Procedures | Fax: | Fax: | | | | | CT CHEST, | [phone] | [phone] | | | | | ABDOMEN AND | | | | | | | PELVIS WO IV | | | | | | | CONTRAST | | | | | | | CT CHEST, | | | | | | | ABDOMEN AND | | | | | | | PELVIS W IV | | | | | | | CONTRAST [place] | | | | | | | CAT SCAN OF | | | | | | | CHEST | | | | | | | CONTRAST [place] | | | | | | | CT | | | | | | | ABDOMEN&PELV | | | | | | | IS | | | | | | | W/CONTRAST | | | | | | | [place] CT | | | | | | | SCAN,THORAX, | | | | | | | W/O CONTRAST | | | | | | | AK CT ABD | | | | | | | & PELVIS W/O | | | | | | | CONTRAST | | | +--------+--------+ + + + + Encounter Details +--------+ + + + + | Date | Type | Department | Care Team | Description | +--------+ + + + + | 08/23/ | Hospital | Diagnostic Imaging | Lissette Jones, | | | 2019 | Encounter | Services at [facility] | [address] | | | | | [address] | [address] | | | | | [facility] | [place], [place] | | | | | [address] | [address] | | | | | [place], [place] | [phone] | | | | | [address] | | | | | | [phone] | | | +--------+ + + + [...] | + +--------+ + + + | CT CHEST, ABDOMEN | Routin | 08/23/2019 | Kidney cancer, | Results for this | | AND PELVIS WO IV | e | 5:47 PM | primary, with | procedure are in the | | CONTRAST | | PST | metastasis from | results section. | | | | | kidney to other | | | | | | site, left (HCC) | | + +--------+ + + + documented in this encounter Results CT CHEST, ABDOMEN AND PELVIS WO IV CONTRAST (08/23/2019 5:47 PM PST) + + | Specimen | + + | | + + + + + | Narrative | Performed At | + + + | EXAM: CT of the chest, abdomen and pelvis without intravenous | [facility] | | contrast. HISTORY: Left flank pain. 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 Remote history of Hodgkin's lymphoma status post | | | chemotherapy/XRT (including chest villanueva) in 2001. COMPARISON: | | | Outside CT abdomen and pelvis 07/27/2019. TECHNIQUE: CT of the | | | chest, abdomen and pelvis without intravenous contrast. Coronal and | | | sagittal reformats were generated and created. FINDINGS: Lack of | | | intravenous contrast limits evaluation of the solid organs and | | | vasculature. CHEST: The heart and great vessels are unremarkable. | | | Large calcified mediastinal and right hilar lymph nodes favored to be | | | sequelae of treated lymphoma. Predominantly perihilar and medial lung | | | bronchiectasis and reticulations are consistent with fibrotic | | | radiation changes. 5 mm subpleural right middle lobe nodule (series 4 | | | image 74). Two right lower lobe nodules measure 6 mm (series 4 image | | | 90) and 3 mm (series 4 image 95). No focal consolidation or pleural | | | effusion. LIVER: Multiple large confluent hepatic hypoattenuating | | | metastatic lesions are again seen, better evaluated on multiphasic CT | | | 07/27/2019. BILIARY: Layering sludge within the gallbladder. No intra | | | or extra hepatic biliary dilatation. PANCREAS: Unremarkable. | | | SPLEEN: Unremarkable. ADRENALS: Unremarkable. KIDNEYS/URETERS: The | | | right kidney is unremarkable. As before, the left kidney is | | | markedly enlarged and heterogeneous with peripheral fat stranding, | | | consistent with renal cell carcinoma. Perirenal soft tissue mass at | | | the superior-posterior aspect of the left kidney measures | | | approximately 3.5 x 1.8 cm, not significantly changed (series 1 image | | | 103). Extensive collateral vessels are seen about this lesion | | | secondary to previously seen renal vein invasion, which is not | | | evaluated on today's noncontrast images. PELVIC ORGANS/BLADDER: | | | Unremarkable. GI TRACT: Unremarkable. Normal appendix. | | | PERITONEUM: Small hematoma in the right anterior peritoneum is likely | | | sequelae of liver biopsy (series 1 image 145). No free air or fluid. | | | LYMPH NODES: Metastatic para-aortic node measures 3.6 x 2.4 cm, | | | unchanged (series 1 image 133). VESSELS: Extensive left gonadal and | | | splenic venous collaterals. Enlargement of the left renal vein | | | reflects known metastatic invasion. BONES AND SOFT TISSUES: | | | Redemonstrated lytic lesion in the L2 vertebral body with associated | | | pathological compression fracture with 50% height loss, previously 40% | | | height loss (series 2 image 109). Healed right seventh rib fracture. | | | The soft tissues are unremarkable. IMPRESSION: 1. | | | Redemonstrated left renal cell carcinoma with extensive venous | | | collateralization, reflecting previously seen left renal vein invasion | | | not evaluated on today's noncontrast study. 2. Redemonstrated | | | large confluent hepatic metastases. 3. Several right middle and | | | lower lobe pulmonary nodules, concerning for metastases. 4. | | | Progressive now 50% height loss of pathological L2 compression | | | fracture. 5. Sequelae of remote mediastinal radiation/treated | | | lymphoma seen in the lungs and mediastinal nodes, as described. I | | | have personally reviewed the images and, if necessary, edited the | | | report. I agree with the report as now presented. Final | | | signature: Tom Mercer MD 08/24/2019 12:00 PM Preliminary: | | | Sara Stratton MD 08/24/2019 10:40 AM Dictation initiated: | | | Sara Stratton MD 08/24/2019 7:59 AM | | + + + + + | Procedure Note | + + | Service Account, Radiant Res In Interface - 08/24/2019 12:01 PM PST EXAM: CT of the | | chest, abdomen and pelvis without intravenous contrast. HISTORY: Left flank pain. 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 Remote history of Hodgkin's lymphoma status post chemotherapy/XRT | | (including chest villanueva) in 2001. COMPARISON: Outside CT abdomen and pelvis 07/27/2019. | | TECHNIQUE: CT of the chest, abdomen and pelvis without intravenous contrast. Coronal | | and sagittal reformats were generated and created. FINDINGS: Lack of intravenous | | contrast limits evaluation of the solid organs and vasculature. CHEST: The heart and | | great vessels are unremarkable. Large calcified mediastinal and right hilar lymph nodes | | favored to be sequelae of treated lymphoma. Predominantly perihilar and medial lung | | bronchiectasis and reticulations are consistent with fibrotic radiation changes. 5 mm | | subpleural right middle lobe nodule (series 4 image 74). Two right lower lobe nodules | | measure 6 mm (series 4 image 90) and 3 mm (series 4 image 95). No focal consolidation or | | pleural effusion. LIVER: Multiple large confluent hepatic hypoattenuating metastatic | | lesions are again seen, better evaluated on multiphasic CT 07/27/2019.BILIARY: Layering | | sludge within the gallbladder. No intra or extra hepatic biliary dilatation.PANCREAS: | | Unremarkable. SPLEEN: Unremarkable.ADRENALS: Unremarkable.KIDNEYS/URETERS: The right | | kidney is unremarkable. As before, the left kidney is markedly enlarged and | | heterogeneous with peripheral fat stranding, consistent with renal cell carcinoma. | | Perirenal soft tissue mass at the superior-posterior aspect of the left kidney measures | | approximately 3.5 x 1.8 cm, not significantly changed (series 1 image 103). Extensive | | collateral vessels are seen about this lesion secondary to previously seen renal vein | | invasion, which is not evaluated on today's noncontrast images. PELVIC ORGANS/BLADDER: | | Unremarkable. GI TRACT: Unremarkable. Normal appendix.PERITONEUM: Small hematoma in the | | right anterior peritoneum is likely sequelae of liver biopsy (series 1 image 145). No | | free air or fluid. LYMPH NODES: Metastatic para-aortic node measures 3.6 x 2.4 cm, | | unchanged (series 1 image 133).VESSELS: Extensive left gonadal and splenic venous | | collaterals. Enlargement of the left renal vein reflects known metastatic invasion. | | BONES AND SOFT TISSUES: Redemonstrated lytic lesion in the L2 vertebral body with | | associated pathological compression fracture with 50% height loss, previously 40% height | | loss (series 2 image 109). Healed right seventh rib fracture. The soft tissues are | | unremarkable. IMPRESSION: 1. Redemonstrated left renal cell carcinoma with extensive | | venous collateralization, reflecting previously seen left renal vein invasion not | | evaluated on today's noncontrast study. 2. Redemonstrated large confluent hepatic | | metastases. 3. Several right middle and lower lobe pulmonary nodules, concerning for | | metastases. 4. Progressive now 50% height loss of pathological L2 compression fracture. | | 5. Sequelae of remote mediastinal radiation/treated lymphoma seen in the lungs and | | mediastinal nodes, as described. I have personally reviewed the images and, if | | necessary, edited the report. I agree with the report as now presented. Final | | signature: Tom Mercer MD 08/24/2019 12:00 PM Preliminary: Sara Stratton MD | | 08/24/2019 10:40 AM Dictation initiated: Sara Stratton MD 08/24/2019 7:59 AM | | | |3. Several right middle and lower lobe pulmonary nodules, concerning for metastases. | | | |4. Progressive now 50% height loss of pathological L2 compression fracture. | | | |5. Sequelae of remote mediastinal radiation/treated lymphoma seen in the lungs and mediasti nal nodes, as described. | | | |I have personally reviewed the images and, if necessary, edited the report. I agree with th e report as now presented. | | | |Final signature: Tom Mercer MD 08/24/2019 12:00 PM | |Preliminary: Sara Stratton MD 08/24/2019 10:40 AM | |Dictation initiated: Sara Stratton MD 08/24/2019 7:59 AM | + + + +---------+ + [...]
--- OUTSIDE RECORDS SUMMARY | ~2020-06-29 | XMS | Encounter Summary ---
Demographics + + + | Address | [address] | | | [place] [address] | + + + | Home Phone | | + + + | Preferred Language | Unknown | + + + | Marital Status | Single | + + + | Restorationist Affiliation | CHR | + + + [...] Team Providers + +------+ + | Care Official Court Reporter Name | Role | Phone | + [...] | neoplasm of | RADHA Curran | [address] | | | | | unspecified | [place] | [address] | | | | | kidney, | Family | [place], | | | | | except renal | Medicine | [place] [address] | | | | | pelvis | [address] | Phone: | | | | | Procedures | [address] | [phone] | | | | | PA NEW | [place], | Fax: | | | | | PATIENT | [place] [address] | [phone] | | | | | LEVEL V PA | Phone: | | | | | | EST PATIENT | [phone] | | | | | | LEVEL V | Fax: | | | | | | | [phone] | | + +---------+ + + + + Encounter Details +--------+---------+ + + + | Date | Type | Department | Care Team | Description | +--------+---------+ + + + | 03/12/ | Office | [facility] | Lissette Jones, | Renal cell carcinoma | | 2020 | Visit | [facility] at [facility] | [place] [address] | of left kidney | | | | [place] [address] | (HCC) (Primary Dx) | | | | [facility] | [place], [place] | | | | | [facility] He[facility], | [address] | | | | | [address] | [phone] | | | | | [place], [place] | | | | | | [address] | | | | | | [phone] | | | +--------+---------+ + + + [...] + + + | Blood Pressure | 139/66 | 03/12/2020 10:04 AM | | | | | PDT | | + + + + + | Pulse | 106 | 03/12/2020 10:04 AM | | | | | PDT | | + + + + + | Temperature | 36.6 C (97.9 F) | 03/12/2020 10:04 AM | | | | | PDT | | + + + + + | Respiratory Rate | - | - | | + + + + + | Oxygen Saturation | 100% | 03/12/2020 10:04 AM | | | | | PDT | | + + + + + | Inhaled Oxygen | - | - | | | Concentration | | | | + + + + + | Weight | 84.2 kg (185 lb 9.6 | 03/12/2020 10:04 AM | | | | oz) | PDT | | + + + + + | Height | - | - | | + + + + + | Body Mass Index | 33.95 | 02/13/2020 9:50 AM | | | | | PDT [...] as of this encounter Progress Notes Lissette oJnes MD - 03/12/2020 9:45 AM PDTFormatting of this note might be different fr om the original. FOLLOW-UP NOTE Patient: Tila Altman Date: 03/12/2020 : 1965 AGE: 54 y.o. Attending Physician: [...] L frontal brain metastases completed 03/07/2020 Cabozantinib- to start mid March 2020 Interval History Tila returns today for follow up visit. She is s/p SRS to isolated L frontal metastases. She presented with R facial droop with speech difficulties which for most part resolved (imp roved with steroids in ER). She's on dexamethasone 4mg po bid but not clear when taper will occur. Dr. Beard recommended repeat MRI brain in 6 weeks. Impression/Plan Tila Altman is a 54 y.o. [...] might be pneumonitis, but progression in liver I spoke to Dr. Beard and he plans to taper steroids over 10 days- Recommended cabozantinib at lower dose 40mg given current performance status, can consider increasing after 1 month and toxicity is tolerable; start cabo post steroid taper PE- plan d/c lovenox and switch to enoxaparin RTC 6 weeks (virtual or phone ok) Medications: Current Outpatient Medications Medication Sig cholecalciferol 50,000 unit oral capsule Take 1 capsule by mouth every seven days. Simi cations: vitamin D deficiency (high dose therapy) dexAMETHasone 4 mg oral tablet Take 1 tablet by mouth two times daily. Indications: flu id accumulation in the brain dexAMETHasone 4 mg oral tablet Take 4 mg by mouth two times daily. enoxaparin 80 mg/0.8 mL subcutaneous syringe Inject 0.8 mL under the skin (SUBC) every twelve hours. Indications: anticoagulation treatment furosemide (LASIX) 20 mg oral tablet Take [...] tablet by mouth every four hours as needed. No current facility-administered medications for this visit. Review of Systems: A 13 point review of systems was performed and is negative except as above in the HPI. Pain score: ECOG Status: 1 - No physically strenuous activity, but ambulatory and able to carry out lig ht or sedentary work e.g. office work, light house work). Physical Examination: Constitutional Tired appearing HEENT Normocephalic, atraumatic. PERRL/EOMI Neck supple Respiratory chest clear, no wheezing, rales, normal symmetric air entry, chest is clear wit hout rales or wheezing Cardiovascular S1, S2 normal, no murmur, click, rub or gallop, regular rate and rhythm, no pedal edema, no JVD. Abdomen Abdomen is soft without significant tenderness, masses, organomegaly or guarding. Bowel sounds normal. Integumentary Warm and dry. No rash or unusual ecchymoses. Psychiatric Coherent speech. Appropriate mood/affect. Laboratory: LAB RESULTS: Clinical Clothing Room Supervisor on 03/12/2020 Component Date Value WHITE CELL COUNT 03/12/2020 4.26 RED CELL COUNT 03/12/2020 3.55* HEMOGLOBIN 03/12/2020 10.4* HEMATOCRIT 03/12/2020 33.9* MCV 03/12/2020 95.5 MCHC 03/12/2020 30.7* RDW SD 03/12/2020 55.6* PLATELET COUNT 03/12/2020 89* MPV 03/12/2020 9.1* NRBC% 03/12/2020 0.0 NRBC# 03/12/2020 0.00 NEUTROPHIL % 03/12/2020 93.7* LYMPHOCYTE % 03/12/2020 2.1* MONOCYTE % 03/12/2020 4.0 EOS % 03/12/2020 0.0* BASO % 03/12/2020 0.0 IG% 03/12/2020 0.2 NEUTROPHIL # 03/12/2020 3.99 NEUTROPHIL # Prelim 03/12/2020 3.99 LYMPHOCYTE # 03/12/2020 0.09* MONOCYTE # 03/12/2020 0.17 EOS # 03/12/2020 0.00 BASO # 03/12/2020 0.00 IG# 03/12/2020 0.01 Lissette Jones MD documented in this e ncounter Plan of Treatment Not on filedocumented as of this encounter Visit Diagnoses + + | Diagnosis | + + | 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
--- OUTSIDE RECORDS SUMMARY | ~2020-06-29 | XMS | Encounter Summary ---
Demographics + + + | Address | [address] | | | [place] [address] | + + + | Home Phone | | + + + | Preferred Language | Unknown | + + + | Marital Status | Single | + + + | Anabaptism Affiliation | CHR | + + + [...] Team Providers + +------+ + | Care Business Resiliency Manager Name | Role | Phone | + +------+ + | Lissette Ma PA-C | PCP | | + +------+ + Reason for Referral Consultation (Routine) + +--------+ + + + + | Status | Reason | Specialty | Diagnoses / | Referred By | Referred To | | | | | Procedures | Contact | Contact | + +--------+ + + + + | Authorized | | Endocrinology | Diagnoses | Mel Beach | | | | Diabetes & | | MD Radha | [address] | | | | Metabolism | Hyperthyroid | [address] | Pavilion | | | | | ism | [address] | [address] | | | | | Procedures | Rd | Physician's | | | | | CONSULT TO | [place], [place] | Pavilion | | | | | ENDOCRINOLOG | [phone] | Physician's | | | | | Y AR NEW | Phone: | Pavilion | | | | | PATIENT | [phone] | [place], [place] | | | | | LEVEL V AR | Fax: | [phone] | | | | | EST PATIENT | [phone] | Phone: | | | | | LEVEL V | | [phone] | | | | | | | Fax: | | | | | | | [phone] | + +--------+ + + + + Reason for Visit + + + | Reason | Comments | + + + | Hypotension | | + + + AUTH/CERT +--------+--------+ [...] | +--------+ + + + + | 11/20/ | Hospital | [facility] [address] | Eul[place] Antonio, | | | 2019 - | Encounter | [address] | [place] [address] | | | | | [place], [place] | [address] | | | 11/28/ | | [address] | [place], [place] | | | 2019 | | [phone] | [address] | | | | | | [phone] | | | | | | | | | | | | Lisa Steele, | | | | | | REDD-Casey [address] | | | | | | [address] | | | | | | [place], [place] | | | | | | [address] | | | | | | [phone] | | | | | | | | | | | | Jose Luis Segura | | | | | | MD Jasen [address] | | | | | | [address] | | | | | | [place], [place] | | | | | | [address] | | | | | | [phone] | | | | | | | | | | | | Tg Uriostegui MD | | | | | | [address] | | | | | | [facility], | | | | | | [place] [address] | | | | | | [phone] | | | | | | | | | | | | Lisa Sullivan MD | | | | | | [address] [facility] [address] | | | | | | [facility], | | | | | | [place] [address] | | | | | | [phone] | | | | | | | | | | | | Nikki Márquez MD | | | | | | [address] [facility] [address] | | | | | | [facility], | | | | | | [place] [address] | | | | | | [phone] | | | | | | | | | | | | Medina Thapa MD [address] | | | | | | [facility] | | | | | | [facility], [place] | | | | | | [address] | | | | | | [phone] | | | | | | | [...] + + + | Blood Pressure | 110/64 | 11/29/2019 8:22 AM | | | | | PDT | | + + + + + | Pulse | 113 | 11/29/2019 8:22 AM | | | | | PDT | | + + + + + | Temperature | 36.8 C (98.2 F) | 11/29/2019 8:22 AM | | | | | PDT | | + + + + + | Respiratory Rate | 16 | 11/29/2019 8:22 AM | | | | | PDT | | + + + + + | Oxygen Saturation | 98% | 11/29/2019 8:22 AM | | | | | PDT | | + + + + + | Inhaled Oxygen | - | - | | | Concentration | | | | + + + + + | Weight | 88.6 kg (195 lb 4.8 | 11/28/2019 9:01 PM | | | | oz) | PDT | | + + + + + | Height | 157.5 cm (5' 2") | 11/21/2019 9:25 PM | | | | | PDT | | + + + + + | Body Mass Index | 35.72 | 11/21/2019 9:25 PM | | | | | PDT | [...] + + documented as of this encounter Discharge Lissette Martinez DO - 11/29/2019 11:20 AM PDT [facility] Discharge Summary Discharging Provider: Lissette Jaime DO Discharging Attending Physician: Nikki Márquez MD PCP: Lissette Milner PA-C Admission Date: 11/21/2019 Discharge Date: 11/29/2019 Hospital Stay: 8 day(s) PCP follow-ups: [ ] Follow-up with endo and onc to determine who will continue to order labs, levothyroxin e, and LMWH [ ] consider addition of lasix if LE edema persists Endocrine follow-ups: [ ] titrate levothyroxine [ ] F/U BMP, TSH, and T4 next week in [place] (discharging team ordered these labs) Onc follow-ups: [ ] Discussion when to restart immunotherapy [ ] management of LMWH Diagnosis: # Massive PE # Obstructive shock # JONO on CKD IIIb # 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 She was transferred to the MICU 11/22 after [employer] for a syncopal event 2/2 tacchyarhythmia and hypotension then found to have a massive PE (initially bedside U/S noted RV strain). CTA chest confirmed BL PEs with R heart strain. IR was consulted given massive PE, who felt that catheter-directed thrombolysis not the safest/best option, so she underwent systemic a lteplase (after CT head was neg for bleed/obvious mets). Following a systemic alteplase infu janice, was restarted on a heparin gtt and ultimately transitioned to LWMH 80 BID SQ. 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 She was initially started on stress dose steroids upon admission to the ICU, and then weane d to lower hydrocortisone doses for check-point inhibitor thyroxicosis. Because her T4 had n ormalized on the day of discharge and her cosyntropin stim test showed a good response, she was not discharged on steroids as it was felt her CPI induced thyrotoxicosis had improved an d she did not have adrenal insufficiency. Her hyperkalemia resolved and her creatinine improved. Her fT4 came down as well appropri ately. She briefly required diuresis s to offload RV strain, but this was not continued at t he time of discharge. She was weaned to hydrocort 40mg po bid per Endo recs with plan for we an per Endo recs. Aldosterone level 183, indicated no adrenal insufficiency component. She was transitioned to therapeutic lovenox (given renal function and hx of cancer) and off heparin gtt for her PE. 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 Jaime and Dr. Yoon will follow-up - Outpatient follow-up with endocrine - Not discharged on steroids as main benefit in CPI induced thyrotoxicosis is to stop the c onversion of T3 to T4 and T4 has normalized # Concern for adrenal insufficiency - Cosyntropin stim test AM of discharge demonstrated good response with cortisol > 23 # JONO on CKD IIIb - Creatinine 1.3 on day of discharge (baseline) # Renal cell carcinoma stage IV with known distant mets # Pathologic spine fractures # Malignant pain - F/U with Dr. Ortiz to discuss ongoing immunotherapy (may consider single agent nivolumab t herapy per onc) - Cont home pain regimen Pertinent Findings: Labs: Lab Results Component Value Date NA 142 11/29/2019 K 3.6 11/29/2019 CL 115 11/29/2019 BICARB 18 11/29/2019 BUN 36 11/29/2019 EGFRAFRICAN 48 11/29/2019 EGFRNONAFR 40 11/29/2019 CR 1.38 11/29/2019 GLU 99 11/29/2019 CA 7.6 11/29/2019 ANIONGAP 9 11/29/2019 ANIONALBCOR 14 11/23/2019 Lab Results Component Value Date TSH 33.20 (H) 11/29/2019 Lab Results Component Value Date FREET4 1.1 11/29/2019 Imagin11/24/2019 BL LE doppler Conclusions: A normal venous examination of the bilateral lower extremities. No venous thro mbosis was detected. 11/23/2019 CT abd w IV cont 1. Compared to 11/21/2019, no significant change in the large infiltrative left renal cell c arcinoma with extension into the left renal vein and associated tumor thrombus extending to the level of the IVC. No IVC tumor. 2. Bulky hepatic metastases appear stable (see comment above). Stable retroperitoneal lymph adenopathy. 3. Unchanged vertebral body L2 pathologic fracture post kyphoplasty and new L1 compression deformity. 11/23/2019 CTA PE Extensive acute bilateral pulmonary emboli involving both distal mainstem pulmonary arterie s, multiple bilateral lobar and segmental arteries with CT evidence of right heart strain. N o evidence of pulmonary infarct. Unchanged pulmonary nodules, as described above. Abdominal findings are detailed on report for same-day CT abdomen. Other Studies: none Outstanding or Pending Labs/Studies: none Consultants (service/attending name): oncology, neurosurgery, interventional radiology, end ocrinology Discharge Medications: Medication List START taking these medications enoxaparin 80 mg/0.8 mL Syrg Commonly known as: LOVENOX Inject 0.8 mL under the skin (SUBC) every twelve hours. Indications: anticoagulation treatm ent polyethylene glycol 17 gram/dose Powd Commonly known as: MIRALAX Mix 17 g in liquid and drink two times daily. Indications: constipation senna-docusate 8.6-50 mg Tab Commonly known as: SENOKOT S Take 1 tablet by mouth two times daily. Indications: constipation CHANGE how you take these medications levothyroxine 100 mcg Tab Take 1 tablet by mouth before breakfast. What changed: medication strength how much to take CONTINUE taking these medications cholecalciferol 50,000 unit Cap Commonly known as: VITAMIN D3 Take 1 capsule by mouth once daily. Indications: vitamin D deficiency (high dose therapy) lovastatin 20 mg Tab Commonly known as: MEVACOR Take 20 mg by mouth once daily in the evening. Administer with evening meal. omeprazole 20 mg Cpdr Commonly known as: PRILOSEC Take 1 capsule by mouth two times daily. Administer 30 to 60 minutes before meals oxyCODONE (immediate release) 5 mg Tab Commonly known as: ROXICODONE Take 1 tablet by mouth every four hours as needed for breakthrough pain (1 to 2 tablets PO every 4 hours as needed for breakthough pain). Rationale for Medication Changes: See above. Allergies: No Known Allergies Code Status: Full POLST completed: no Additional Instructions: Diet Instructions Diet Type: Regular diet- There are no restrictions to your diet. You may eat or drink wha tever you prefer, though healthy food choices are recommended. Fluid restriction: Fluid restriction 2,000 mL- You must restrict the amount of fluids you c onsume, including foods that may become liquid at room temperature (gelatin, ice cream, etc. ). -Once the swelling in your legs and arms resolves, you do not need to restrict her fluid consumption anymore. - Activity Instructions Activity Instructions: No activity restrictions. You may be tired following her hospitali zation, increase your activity as you are able to tolerate. Additional Instructions Daily weights: Weigh yourself daily and keep a record of your weight. Call your Primary C are Provider if your weight trends up or down by 5 lbs. Opioid Pain Management No changes have been made to chronic opioid prescriptions or plans. TSH Standing Status: Future Expected By: 12/05/19 Standing Exp. Date: 12/28/20 FREE T4, SERUM Standing Status: Future Expected By: 12/05/19 Standing Exp. Date: 12/28/20 CORTISOL, SERUM Standing Status: Future Expected By: 12/05/19 Standing Exp. Date: 12/28/20 Draw site? None Given Time from baseline hormone admin(Hrs:min) N/A BASIC METABOLIC SET Standing Status: Future Expected By: 12/05/19 Standing Exp. Date: 12/28/20 BASIC METABOLIC SET - External Order TSH - External Order FREE T4, SERUM - External Order Follow Up: Future Appointments Provider Department Dept Phone Center 12/12/2019 8:20 AM LAB ONC RN Laboratory at [facility] [phone] PHLEBOTOMY 12/12/2019 8:55 AM Lissette Ortiz Hematology/Medical Oncology at [facility] g Arrive at: 10th Floor Hematology/Medical Oncology [phone] HemOnc 12/12/2019 10:20 AM Gen Onc Hematology/Medical Oncology at [facility] [phone] HemOnc 01/02/2020 9:00 AM LAB ONC RN Laboratory at [facility] [phone] PHLEBOTOMY 01/02/2020 9:45 AM Lissette Ortiz Hematology/Medical Oncology at [facility] ng Arrive at: 10th Floor Hematology/Medical Oncology [phone] HemOnc 01/02/2020 10:10 AM Gen Onc Hematology/Medical Oncology at [facility] [phone] HemOnc 01/06/2020 11:00 AM Vikki Damico [facility] at [facility] [phone] [facility] Schedule the following appointment(s) when you get home Lissette Milner PA-C . Specialty: Physician Credit Support Specialist Contact information [address] [place] [id number] Discharge Physical Exam: Last 24 hour min/max Temp: 36.6 C (97.9 F) Temp Min: 36.6 C (97.9 F) Max: 36.7 C (98.1 F) Pulse: 115 Pulse Min: 103 Max: 115 Resp: 14 Resp Min: 14 Max: 18 BP: 104/57 BP Min: 101/58 Max: 104/57 SpO2: 98 % SpO2 Min: 98 % Max: 99 % Body mass index is 35.72 kg/m. General: Well-dressed well-nourished no apparent distress HEENT/Neck: Sclera nonicteric trachea midline Cardiovascular: Regular rhythm tachycardic rate Pulmonary: Bibasilar crackles clear in the upper villanueva Abdominal: Nontender nondistended bowel sounds present Skin: Scattered bruising on upper extremities Musculoskeletal: No deformities, +1 LE pitting edema Neuro: No focal neuro deficits Psych: Alert and oriented X4 Lissette Jaime, DO Internal Medicine, PGY2 Pager [phone] Associated attestation - Nikki Márquez MD - 11/29/2019 4:18 PM PDTA resident assisted [facility] documenting this service. I saw the patient and reviewed and verified all information doc umented by the resident, and made modifications to such information, when appropriate. Nikki Márquez MD [facility] Hospitalist Services [facility] Pager [phone] I spent 37 minutes cvyh-el-iecy with the patient of which 58% was spent counseling the mare ent or in coordination of care surrounding discharge planning. documented in this encounter Discharge Instructions Discharge Instr - AVS First Page Lissette Jaime DO - 11/29/2019 7:02 AM PDTWho to Clark l: HOW TO REACH YOUR MEDICAL TEAM WITH QUESTIONS, CONCERNS, OR NEW SYMPTOMS: Thank you for e ntrusting your care to [facility] Internal Medicine. If you have any problems or concerns before y ou are able to follow up with your Primary Care Provider, please call and ask the ammonium hydroxide operator to page the attending physician who was caring for you at discharge. If that p hysician is not available, ask the ammonium hydroxide operator to page the physician on-call for the Medical Te aching Service. Discharge Instr - Activity Lissette Jaime DO - 11/29/2019 7:01 AM PDTActivity Instruc tions: No activity restrictions. You may be tired following her hospitalization, increase y our activity as you are able to tolerate.Electronically signed by Lissette Jaime DO at 0 11/29/2019 7:01 AM PDT Discharge Instr - Diet Lissette Jaime DO - 11/29/2019 7:01 AM PDTDiet Type: Regular d iet- There are no restrictions to your diet. You may eat or drink whatever you prefer, thou gh healthy food choices are recommended. Fluid restriction: Fluid restriction 2,000 mL- You must restrict the amount of fluids you c onsume, including foods that may become liquid at room temperature (gelatin, ice cream, etc. ). -Once the swelling in your legs and arms resolves, you do not need to restrict her fluid consumption anymore. P DT Discharge Instr - Diagnoses Lissette Jaime DO - 11/29/2019 6:46 AM PDTPulmonary embol ism (a blood clot in your lungs) Thyrotoxicosis secondary to checkpoint inhibitor therapy (excess thyroid hormone from your immunotherapy) Acute kidney injury Concern for adrenal insufficiency (your body may not make enough cortisol and steroids) Esme ctronically signed by Lissette Jaime DO at 11/29/2019 6:48 AM PDT Discharge Instr - Procedures Lissette Jaime DO - 11/29/2019 6:48 AM PDT11/23/2019: ar terial line and central line while in the ICU 11/24/2019: systemic tPA to help break down the clot in your lungs Discharge Instr - Hospital Course Lissette Jaime DO - 11/29/2019 6:53 AM PDTYou were initially admitted for low blood pressure ultimately found to be secondary to a large blood clot in your lungs. You received a medication called TPA that helped break down this clot i n your lungs and you have improved since then. You also were found to have excess thyroid h ormone from the immunotherapy you have been receiving for your renal cell carcinoma. You we re on steroids during this admission for this and will not need to continue them at the time of discharge. You should also start taking levothryoxine 100 mcg daily (lower than your pre vious dose). Our endocrinology team is aware that you will need follow-up with them, but if you do not hear from them please call them at [phone] to set up an appointment. You primitivo tineo have follow-up with Dr. Ortiz on December 11 where you will discuss continuing your immunoth erapy. In addition, we are discharging you on enoxaparin 80 mg twice daily. Our nurses have taugh t you how to administer this medication to yourself. This is to treat your pulmonary emboli sm. You will likely need to take this medication for the foreseeable future and should disc uss its continuation or discontinuation with your oncology team as we feel your pulmonary em bolism was likely secondary to your ongoing malignancy. Please call your primary care doctor when you return home to discuss setting up a follow-up appointment. It will likely be most convenient for her to order your ongoing labs in [place]. For now, we have ordered labs that you will need to get done next week, including kid megan function and thyroid studies. Please asked the lab in [place] to send these labs to georgi Jaime DO ([facility] at [facility]) and Peggy Yoon MD (Endocrinology at [facility]) to e nsure these get appropriate follow-up. If the lab cannot access these orders, please call Dr Jayson Woods and let her know. If at any point in time you have worsening shortness of breath, worsening swelling, or ches t pain, please seek medical attention. Discharge Instr - Electronic Signature Lissette Jaime DO - 11/29/2019 7:02 AM PDTAfte r Visit Summary Signature Electronically signed by: Lissette Jaime DO, 11/29/2019 at 7:02 AMElectronically sig sharifa by Lissette Jaime DO at 11/29/2019 7:02 AM PDT Additional Instructions Lissette Jaime DO - 11/29/2019 7:02 AM PDTDaily weights: Weig h yourself daily and keep a record of your weight. Call your Primary Care Provider if your weight trends up or down by 5 lbs. Opioid Pain Management No changes have been made to chronic opioid prescriptions or plans. AttachmentsThe following attachments cannot be sent through Care Everywhere.enoxaparin (Eng vincenzo)Enoxaparin (Lovenox) (Hebrew)documented in this encounter Medications at Time of [...] documented as of this encounter Progress Notes Nikki Márquez MD - 11/29/2019 11:20 AM PDT [facility] Progress Note PATIENT: HANK ALTMAN : 1965 ADMIT DATE: 11/21/2019 12:12 PM DISCH DATE: 11/29/2019 11:20 AM RESPONDING PROVIDER #: [id number] Dear Provider, The dietitian notes patient meets criteria suggesting severe protein calorie malnutrition b ased on intake <75% of estimated energy requirements for more than/equal to 1 month and weig ht loss > 7.5% in 3 months (15.2% actual in 3 months. Recommends: continue renal diet, check phos lvel and consider regular diet if 2gm K if it i s WNL to provide more food choices d/t decreased appetite, encourage good po intake, offer n utritional supplements such as Ensure Clear and Nepro, monitor lytes, and bowel care regimen prn. Please clarify if there is an associated, clinically significant diagnosis, as applicable. Reference: Malnutrition diagnosis can reference the supporting evidence contained in the Registered Di etician assessment, which should be based on ASPEN criteria. ASPEN criteria assesses muscle mass depletion, energy intake, % of weight loss within a specific time frame, and relation to disease process. Thank you, [email or web address] Query created by: Odette Sotelo on 01/09/2020 6:47 AM PROVIDER IMPRESSION: The patient has severe protein-calorie malnutrition Electronically signed by: NIKKI MÁRQUEZ MD 01/11/2020 3:16 PM Paddy Camarena M D - 11/28/2019 11:48 AM PDT General Internal Medicine 5 Progress Note 24 Hour Events: NAEO -Subtherapeutic heparin level. Current Symptoms: Denies, ambulating well on RA without symptoms Physical Examination: Last 24 hour min/max Temp: 36.3 C (97.3 F) Temp Min: 36.3 C (97.3 F) Max: 36.6 C (97.9 F) Pulse: 102 Pulse Min: 102 Max: 115 Resp: 16 Resp Min: 16 Max: 16 BP: 105/63 BP Min: 101/61 Max: 115/60 SpO2: 100 % SpO2 Min: 99 % Max: 100 % Body mass index is 35.7 kg/m. Date 11/28/19 0700 - 11/29/19 0659 Shift 5929-1348 9605-2773 7131-8510 24 Hour Total INTAKE P.O. 100 100 I.V. 5 5 Shift Total 105 105 OUTPUT Shift Total(mL/kg) Weight (kg) 88.5 88.5 88.5 88.5 General Appearance: Comfortable, NAD HEENT: MM moist, sclerae anicteric. With patient reclined approximately 45 degrees, JVP is visible in the upper neck, a centimeter or two below the mandible. There is a dressing in pl mehnaz in the L neck, presumably from central line. Respiratory: Clear sounds bilaterally without wheezing or crackles. Cardiovascular: Mildly tachycardic. Regular rhythm. No murmurs are heard. Gastrointestinal: Abdomen is soft and nontender to palpation. Extremities: There is fairly symmetric pitting edema bilaterally. The extremities are warm and well perfused. Upper extremity pulses are intact. Skin: Warm and dry. There is areas of ecchymoses noted on upper extremities at venipuncture sites - notably on the dorsum of the L hand, on the L forearm, and on the R forearm. Neurologic: Awake, alert, oriented. No gross focal motor deficits. Psychiatric: Pleasant affect. Laboratory Interpretation: Stable K, improving Cr and FT4. Assessment and Plan: This is a 54 y/o F with PMH of remote Hodgkin's lymphoma s/p definitive CHOP + XRT c/b angle bender josh hypothyroidism along with a more recently diagnosed renal cell carcinoma (clear cell sania iant) of her L kidney with metastases to liver, bones, and lungs who initially presented to the hospital from her oncology clinic with asymptomatic hypotension and was found to have th yrotoxicosis attributed to adverse effect of immuen checkpoint inhibitor and whose hospital course was complicated by a massive PE requiring systemic thrombolysis. # acute massive pulmonary embolus # R sided heart strain Her extensive bilateral pulmonary emboli in the setting of hemodynamic instability (syncope , need for pressors) defines a massive PE. The risk for catheter directed therapy in the set ting of JONO (would be getting more contrast for the procedure) and hyperkalemia (catheters m echanically irritating heart could trigger arrhythmia?) was felt to be unacceptably high and the patient was instead treated with systemic thrombolysis with good effect and no complica tions. She was maintained on heparin gtt and has now been transitioned to therapeutic dosing LMWH given her underlying malignancy. While LMWH has been the tried and true therapy for ca ncer associated thrombosis, recent clinical trials comparing head to head trials of DOAC vs LMWH have demonstrated similar efficacy in prevention of recurrent VTE and similar safety ou tcomes in terms of major bleeding and clinical relevant non-major bleeding, as summarized we ll in a meta-analysis (Lauren Nettles et al Thrombosis Research 2019). Although there seemed to be a t rend towards increased major bleeding in the patients treated with DOACs, a subgroup analysi s showed that this increased risk seemed to be limited to those with gastrointestinal tract malignancies. Thus, a DOAC may be a reasonable therapeutic option for this patient although her renal function may theoretically complicate therapy. This patient has clear CT and echoc ardiographic evidence of R sided heart strain along with the biochemical markers as well - a cute right sided heart dysfunction in the setting of pulmonary embolus certainly portends ri sk for higher short term mortality and can be difficult to manage. Given that the significan t underlying pathology leading to increased pulmonary vascular resistance, pulmonary hyperte nsion, and excessive RV afterload has been addressed (presumably her clot burden is markedly reduced with tPA and two days of anticoagulation), I think that the main intervention movin g forward will be careful fluid management. Err too much on the side of hypovolemia and her RVEF will be inadequate but err too much on the side of hypervolemia and one may introduce d etrimental ventricular interdependence as the interventricular septum shifts into the left v entricle. Given her elevated CVPs in the MICU and persistence of renal dysfunction (which co rrelates strongly with CVP), gentle diuresis is likely in order - perhaps to target 500cc ne t negative. Will monitor closely on telemetry. - Continue therapeutic dosing LMWH (1mg/kg/BID). -DC tele - O2 support PRN to keep saturations >92% (want no degree of hypoxemic vasoconstriction). -holding diuresis but will give again if she looks like she will be net positive. # JONO # hyperkalemia - resolved # non-anion gap metabolic acidosis The patient presented with a significant JONO (Cr 3.2 on a baseline of 1.4-1.6) which was pr esumably related to her significant hypotension on presentation although her creatinine was slow to improve even as her blood pressures normalized to her baseline. Her creatinine bumpe d once again on 11/23, presumably once again hemodynamically mediated in the setting of her h ypotension associated with her pulmonary embolus. Now more hemodynamically stable, her creat inine is improving. Will support her hemodynamics and try to optimize her volume status in o rder to aid renal recovery. Her hyperkalemia may be in part a consequence of her renal injur y but she has had hyperkalemia in the past with a better creatinine so not sure that this re ally explains it. Similarly, the patient NAGMA (based on delta ratio, a pure NAGMA) seems ou t of proportion to the degree of renal dysfunction. There is no history of diarrhea. One won ders about some contribution from renal tubular acidosis of some sort. Hyperkalemia and NAGM A can sometimes be associated with adrenal insufficiency, but typically this would be primar y adrenal insufficiency (where there is issues with aldosterone production) and this conditi on has been excluded in this patient based on his measured aldosterone levels. - Monitor labs. - Continue to support hemodynamics as needed. - Continue to optimize volume status - probably reasonable to target something net negative 0 to 500cc. - Avoid nephrotoxins and renally dose medications as needed. # thyrotoxicosis The patient presented with a TSH of 6.7 and a free T4 elevated to 4.2. 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 The patient got a dose of propylthiouracil and a couple of days o f cholestyramine therapy but the mainstay of therapy for her has been holding her levothyrox ine supplement and using hydrocortisone (both to reduce inflammation and further thyroid jannie truction and to cover a possible concomitant secondary adrenal insufficiency). This therapy has been successful and her T4 has been downtrending. Currently working towards tapering off of hydrocortisone with endocrinology guidance. - Hydrocortisone dosing as follows: - 11/25: hydrocortisone 40mg PO BID - 11/26: hydrocortisone 30mg PO BID - 11/27: hydrocortisone 20mg PO BID - 11/28: hydrocortisone 20mg PO daily. - If decompensation, should increase hydrocortisone to 50mg q8h. - Will need AM cortisol (prior to hydrocortisone AM dose) on 11/29. - Trend free T4 (check on day of discharge). - Will need outpatient endocrinology follow-up. # renal cell carcinoma, stage IV, with metastases with liver, bones, lungs # pathological vertebral compression fractures # malignant pain Metastatic renal cell carcinoma currently treated with ipilimumab and nivolumab although cl early treatment is currently on hold due to presumed thyroiditis related to her chemotherapy as well as her recent massive PE. Recent events (including her thyroiditis) does not preclu de further therapy for her malignancy (even further treatment with immune therapies). She wi ll need outpatient oncology follow-up to discuss therapy moving forward once her current iss ues as above are stabilized. In terms of symptoms related to her malignancy, it seems that s he is most bothered by pain from her compression fractures, which are presumed to be patholo gic in their nature. Opiates are indicated for this form of malignant pain and will also try to maximize her adjuncts. - Oxycodone 5-10 mg q4h PRN. - Adjuncts: APAP 500mg q6-8h, topical lidocaine. - Avoid NSAIDs with renal dysfunction helpful as they may be for pain related to bony metas tases. - The use of a bisphosphonate would be questionable with her renal dysfunction. # FENAP Fluids: will aim for gentle net negative fluid balance Electrolytes: will monitor. Currently no issues. Nutrition: Regular Activity: PT working with pt DVT prophylaxis: Therapeutically anticoagulated. Associated attestation - Nikki Márquez MD - 11/28/2019 2:46 PM PDTA resident assisted [facility] documenting this service. I saw the patient and reviewed and verified all information doc umented by the resident, and made modifications to such information, when appropriate. Assessment and Plans: 54 y/o woman with metastatic RCC on checkpoint inhibitors who presents with hypotension fou nd to have massive PE. Currently on Lovenox, will discuss with endocrine and oncology today for discharge planning, plan for discharge tomorrow am. Nikki Márquez MD [facility] [place] Pager [phone] I spent 26 minutes in the care of this patient. Greater than 50% of the time was spent cou nseling and coordination of care, including treatment of PE and follow-ups. Lisa Sullivan MD - 11/26/2019 2:11 PM PDTI performed a history and physical examination o f the patient and discussed her management with the resident. I reviewed the resident s n ote and agree with the documented findings and plan of care. 54 year old woman with renal cell carcinoma admitted to MICU with acute massive PE. Recove red well after treatment with thrombolytic therapy. Awaiting transfer to floor. LISA SULLIVAN MD [facility] [address] [place] [address] pJuan ramires MD - 11/26/2019 10:20 AM PDT [facility] MEDICAL ICU - PROGRESS NOTE Hospital Day: 5 | ICU Day: 5 ID/CC: Hank Altman is a 54 y.o. woman admitted to the MICU for massive PE. Consultants: Endocrinology 24 Hour Events: -weaned off pressors this AM -doing well overnight -no abd pain or back pain; no new neuro symptoms -was up in the chair and doing well -received 500cc LR bolus x2 for low BP, responded well Subjective: -feeling well -no CP/SOB -no abd pain -no lightheadedness Vital Signs: Cuff BP (!) 82/48 (11/26/19 0050) | BP Min: 82/48 Max: 82/48 Cuff MAP 59 mmHg (11/26/19 0050) | BP Mean Min: 58 mmHg Max: 69 mmHg Art Line BP 105/37 () | ART Line BP Min: 85/48 Max: 134/56 Art Line MAP 55 mmHg (11/26/19899) | ART Line BP Mean Min: 54 mmHg Max: 197 mmHg HR 110 () | Pulse Min: 95 Max: 118 | Cardiac Rhythm: Sinus Tachycardia (11/06 09/26 0800) Temp 36 C (96.8 F) (11/26/19 0400) | Temp Min: 36 C (96.8 F) Max: 36.7 C (98.1 F) RR (!) 25 (11/26/19 09) | Resp Min: 16 Max: 27 SpO2 100 % (11/26/19899) | SpO2 Min: 97 % Max: 100 % O2 Device None (room air) (11/26/19 08) | Cam/RASS Most Recent Value Overall CAM-ICU Negative RASS Scale 0 CPOT 0 (11/26/19799) BMI: 34.3 Weights 85 kg (187 lb 6.3 oz) (11/21/192124) 80.7 kg (178 lb) (11/21/19 1220) Admit Wt: 80.9 kg (178 lb 6.4 oz) Physical Exam: GEN: awake and alert, NAD HEENT: EOMI CV: RRR, WWP PULM: CTAB, speaking in full sentences ABD: non-tender, non-distended, soft. No flank ecchymosis. SKIN: no rashes NEURO: AAOx3; CN II-XII intact; 5/5 strength in BUE and BLE with distal sensation intact Laboratories: Recent Labs 11/24/19 0402 11/25/19 0353 11/26/19 0502 WBC 9.31 8.55 5.71 HB 10.9* 9.5* 8.5* HCT 33.3* 30.0* 27.0* MCV 87.2 87.7 88.8 PLT 238 166 134* Recent Labs 11/23/19 1823 11/24/19 0402 11/24/19 0605 11/24/19 0958 INRPT 1.11 -- -- -- -- APTT 25.2* < > 148.8* 106.6* 38.7* < > = values in this interval not displayed. Recent Labs 11/25/19 0948 11/25/19 1649 11/26/19 0502 NA 137 137 138 K 4.8 4.5 4.2 CL 112* 112* 111* BICARB 16* 15* 15* BUN 63* 62* 56* CR 2.47* 2.28* 2.29* CA 7.9* 7.8* 7.8* ANIONGAP 9 10 12* Recent Labs 11/25/19 1649 11/26/19 0502 GLU 82 88 | 87 Recent Labs 11/23/19 1823 11/26/19 0502 AST 63* 45* ALT 29 36 TBILI 0.5 0.5 AP 100* 128* ALB 1.8* 1.7* TP 5.7* 5.0* Recent Labs 11/23/19 1823 11/23/19 2327 11/24/19 0402 11/25/19 0353 TROPONIN <0.02 1.27* -- 0.77 NTPROBNP 9,366* -- 12,502* -- Lab Orders - In Process (From admission to next 24h) Start Ordered 11/23/19 0800 ALDOSTERONE, SERUM TOMORROW AM 11/22/19 1152 11/23/19 0800 RENIN, PLASMA TOMORROW AM 11/22/19 1152 Microbiology: None Imaging: No interval imaging EKG/Echocardiogram: TTE 11/23/19 Final Impressions: 1. The LV function is normal. 2. RV cavity size is severely enlarged. RV global systolic function is severely reduced. 3. The aortic valve is trileaflet and mildly calcified. There is no significant aortic valve stenosis. 4. Compared to the most recent exam dated 11/22/2019, there are no signicant changes of the LV function. RV is larger and RV dysfunction is more prominent. Current Facility-Administered Medications Medication Dose Route Frequency Last Rate norepinephrine (LEVOPHED) 8mg/250 mL (0.032 mg/mL) IV infusion (ADC) 0.02-0.2 mcg/kg/m in intravenous CONTINUOUS Stopped (11/26/19 0612) Current Facility-Administered Medications Medication Dose Route Frequency Last Rate acetaminophen (TYLENOL) tablet 500 mg 500 mg oral Q8H atorvastatin (LIPITOR) tablet 20 mg 20 mg oral QPM enoxaparin (LOVENOX) injection 90 mg 1 mg/kg subcutaneous Q24H furosemide (LASIX) injection 40 mg 40 mg intravenous ONCE hydrocortisone (CORTEF) tablet 40 mg 40 mg oral BID lidocaine (LIDODERM) 5 % patch 1 patch 1 patch transdermal Q24H omeprazole (PRILOSEC) capsule 20 mg 20 mg oral BID polyethylene glycol (MIRALAX) packet 17 g 17 g oral BID senna-docusate (SENOKOT S) 8.6-50 mg 1 tablet 1 tablet oral BID Current Facility-Administered Medications Medication Dose Route Frequency Last Rate bisacodyL (DULCOLAX) suppository 10 mg 10 mg rectal DAILY PRN HYDROmorphone (DILAUDID) injection 0.2-0.5 mg 0.2-0.5 mg intravenous Q2H PRN melatonin tablet 3 mg 3 mg oral HS PRN menthol-zinc oxide (CALAZIME) topical paste 0.2%-16.5% topical QID PRN ondansetron (ZOFRAN) injection 4 mg 4 mg intravenous Q12H PRN oxyCODONE (immediate release) (ROXICODONE) tablet 5-10 mg 5-10 mg oral Q4H PRN Assessment &Plan: Raimundo nettles 54F with PMH of Hodgkins lymphoma s/p CHOPP and XRT c/b hypothyroidism, CKD3, and stage IV RCC on nivolumab/ipilumab with mets to liver/lung/bone with L2 pathologic fracture s/p kyphoplasty admitted to MICU on 11/22 for massive PE. TODAY 11/25: -off pressors -wean to hydrocort 40mg bid per Endo recs -remove a line and CVC -plan IMC status in afternoon -heparin gtt-->lovenox #Shock 2/2 Massive PE # Right heart strain #Acute hypoxemic respiratory failure s/p TPA 11/22. Off pressors this AM. Given has lower bps at baseline, will change SBP goal to >90. -off pressors - lasix 40mg IV for diuresis to offload RV this AM; goal net neg - switch heparin gtt to therapeutic lovenox given hx of malignancy #JONO on CKD3 # Hyperkalemia # NAGMA Baseline Cr 1.4-2. Likely 2/2 ATN from shock vs R heart failure contributing vs RCC and res ultant renal veintumorthrombosis or combination. Will trial diuresis as above. No indica tions for HD. - ctm - diuresis per above #Thyrotoxicosis Presented with TSH 6.77 and fT4 4.2, and presentation concerning for hyperthyroidism due to checkpoint inhibitor therapy. Was started on hydrocortisone 100mg q8h which was being weane d, and was on PTU and cholestyramine (now off) with fT4 down to 2.7. Restarted stress steroi ds on 11/22. Discussed with endocrinology, who provided tapering schedule for steroids (see n ote) -Endo following, appreciate recs: wean hydrocort to 40mg bid today - 11/25 hydrocortisone 40 mg BID PO - 11/26 hydrocortisone 30 mg BID PO - 11/27 hydrocortisone 20 mg BID PO - 11/28 hydrocortisone 20 mg qday PO - 11/29 AM cortisol before hydrocortisone dosing if still inpatient (otherwise will check outpatient) - trend T4 daily or EVERY OTHER DAY and day of d/c - hold levothyroxine on d/c - labs 1 week post discharge in am before taking hydrocrotissoen #Chronic Pain - APAP 1000mg Q6 - cont oxycodone 5-10 Q4 prn - dilaudid 0.02-0.05 IV prn # L1 compression fracture # Hx of L2 pathologic fracture s/p kyphoplasty 08/2019 Hx of L2 pathologic fracture s/p kyphoplasty in 08/2019. Presented to ED this time with CT a/p showing incidental L1 compression fracture, no clearly pathologic etiology. -Neurosurgery spine consulted, appreciate recs: -non-op -pain control -Neurosurgery signed off; f/u 6 weeks (they will arrange) # Stage IVLRCC Has L RCC with mets to lung/liver/bone and pathologic L2 fracture s/p kyphoplasty in 9. On nivolumab and ipilimumab. -hold nivo/ipi -Onc following # GERD (chronic) -omeprazole bid # HLD (chronic) -atorva Present on admission Acute systolic heart failure Cardiogenic shock Acute respiratory failure Acute non-oliguric kidney injury Acute hyperkalemia Massive pulmonary embolism Hyperthyroidism Renal vein thrombosis Renal cell carcinoma Non-anion gap metabolic acidosis L1 compression fracture Consultants:IR, Endo, Onc, Cards Feeding:Low K diet Analgesia:Acetaminophen and Oxycodone and hydromorphone Sedation:None(RASS Goal0 (alert and calm)) Thromboprophylaxis:Heparin IV transition to lovenox Head of Bed:Ad radha Ulcer Prophylaxis:PPI Glycemic control:BS controlled < 180, insulin not indicated MobilityGoal:ambulate Lines/Tubes/Drains/Airways:L IJCVC and Arterial Line, PIV x2 Code Status Code Status Full Code Surrogate Decision Maker Documentation: Surrogate Decision Maker Primary Surrogate Decision Maker Amada Manzanares sister [phone] Secondary Surrogate Decision Maker William jay This patient was staffed with Dr. Sullivan, attending physician. Matt Grossman MD Tg Hays MD - 11/24 9:20 PM PDT MICU ATTENDING PROGRESS NOTE Author: TG URIOSTEGUI MD Attending Physician: Tg Uriostegui MD Patients Hospital Problem List: Active Hospital Problems 1) *Hypotension, unspecified hypotension type 2) Renal cell adenocarcinoma (HCC) 3) Hyperkalemia 4) JONO (acute kidney injury) (HCC) 5) Hypotension 6) Closed compression fracture of body of L1 vertebra (HCC) 7) Hypothyroidism, unspecified type 8) Renal cell carcinoma, unspecified laterality (HCC) 9) Hyperthyroidism 10) Adverse drug reaction Assessment and Plan: I personally interviewed the patient, performed the gonsales elements of the physical examinatio n, and personally formulated the assessment and plan with the MICU resident and the team. Se mireles resident note for details. Hospital day # 4. Hank is a 54 y.o. female with prior history of Hodgkin's lymphoma in 2002 who has stage I V advanced renal cell carcinoma with multiple metastases including lung, liver as well as jana mbar spine. Patient had a recent kyphoplasty and was admitted with hypotension and JONO in t he setting of thyrotoxicosis. Patient was on the medicine floor and had a code called for a cute onset of lower extremity pain, swelling shortness of breath, tachycardia and hypotensio n and was brought to the ICU. She had a high PESI score and was started on vasopressor supp ort and stabilized to get a CT chest PE protocol. CT of the head was also ordered to evalua te for new metastases, MRI in August 2019 was negative for intracranial metastases. Neuro: Alert awake no focal deficits Resp: High risk for pulmonary embolism/tumor embolism. Oxygen requirements have improved CVS: Vasopressor requirements have improved and patient is hemodynamically stable. We will try some more IV fluids to see if can be maintained off of norepinephrine ID: No active issues GI / Hepatology/ Nutrition: Abdominal pain improved Renal / Electrolytes: Acute kidney injury in the setting of renal cell carcinoma with hyperkalemia --> [facility] ed Hyperkalemia --> Medically manage Hem-Onc: Tumor embolism or pulmonary embolism --> related to renal cell carcinoma. Patient started on anticoagulation with heparin after systemic TPA. Oncology note from 11-23 suggests good prognosis and recommend aggressive treatment. 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 Follow blood sugars. Code status/Family: Full code TG URIOSTEGUI MD [facility] [address] [place] [address] I spent 25 min in critical care. Current Meds: Current Facility-Administered Medications Medication Dose Route Frequency acetaminophen (TYLENOL) tablet 500 mg 500 mg oral Q8H atorvastatin (LIPITOR) tablet 20 mg 20 mg oral QPM bisacodyL (DULCOLAX) suppository 10 mg 10 mg rectal DAILY PRN heparin bolus from continuous infusion 3,400 Units 40 Units/kg intravenous NEEDED ( BOLUS) heparin bolus from continuous infusion 6,800 Units 80 Units/kg intravenous NEEDED ( BOLUS) heparin in D5W 25,000 Units/250 mL (100 Units/mL) IV infusion (RTU) 1-2,500 Units/hr i ntravenous CONTINUOUS hydrocortisone sodium succinate (PF) (SOLU-CORTEF) injection 50 mg 50 mg intravenous Q 12H (Scheduled) HYDROmorphone (DILAUDID) injection 0.2-0.5 mg 0.2-0.5 mg intravenous Q2H PRN lidocaine (LIDODERM) 5 % patch 1 patch 1 patch transdermal Q24H melatonin tablet 3 mg 3 mg oral HS PRN menthol-zinc oxide (CALAZIME) topical paste 0.2%-16.5% topical QID PRN norepinephrine (LEVOPHED) 8mg/250 mL (0.032 mg/mL) IV infusion (ADC) 0.02-0.2 mcg/kg/m in intravenous CONTINUOUS omeprazole (PRILOSEC) capsule 20 mg 20 mg oral BID ondansetron (ZOFRAN) injection 4 mg 4 mg intravenous Q12H PRN oxyCODONE (immediate release) (ROXICODONE) tablet 5-10 mg 5-10 mg oral Q4H PRN polyethylene glycol (MIRALAX) packet 17 g 17 g oral BID senna-docusate (SENOKOT S) 8.6-50 mg 1 tablet 1 tablet oral BID Physical Exam: Vital Signs: Cuff BP 104/63 (11/25/19 0315) | BP Min: 95/55 Max: 104/63 Cuff MAP 68 mmHg (11/25/191814) | BP Mean Min: 58 mmHg Max: 75 mmHg Art Line BP 100/46 (11/25/192004) | ART Line BP Min: 84/55 Max: 131/59 Art Line MAP 60 mmHg (11/25/192004) | ART Line BP Mean Min: 54 mmHg Max: 81 mmHg HR 115 (11/25/191999) | Pulse Min: 100 Max: 118 | Cardiac Rhythm: Sinus Tachycardia (1999) Temp 36.7 C (98.1 F) (11/25/191999) | Temp Min: 36.1 C (97 F) Max: 36.7 C (98. 1 F) RR 20 (11/25/191999) | Resp Min: 7 Max: 38 SpO2 98 % (11/25/191999) | SpO2 Min: 97 % Max: 100 % O2 Device None (room air) (11/25/191999) | Cam/RASS Most Recent Value Overall CAM-ICU Negative RASS Scale 0 CPOT 4 (11/25/191754) Intake/Output Summary (Last 24 hours) at 11/25/20192119 Last data filed at 11/25/20191999 Gross per 24 hour Intake 787.9 ml Output 725 ml Net 62.9 ml BMI: 34.3 Weights 85 kg (187 lb 6.3 oz) (11/21/192124) 80.7 kg (178 lb) (11/21/191219) Admit Wt: 80.9 kg (178 lb 6.4 oz) Mechanical Ventilation [place] body weight: 50.1 kg (110 lb 7.2 oz) Adjusted ideal body weight: 64.1 kg (141 lb 3.6 oz) , -- SpO2: 98 % (11/25/191999) Last PaO2/FiO2 ratio: Plateau: Driving Pressure: PAO2/FIO2 RATIO Date/Time Value Ref Range Status 08/26/2019 10:20 AM 419 >300 mmHg Final Lab Results Component Value Date PH 7.33 (L) 08/26/2019 PCO2 34 08/26/2019 PO2 88 08/26/2019 HCO3 18 (L) 08/26/2019 [id number] 97.2 08/26/2019 FIO2 0.21 08/26/2019 [id number] 419 08/26/2019 Lab Results Component Value Date VBGEXCESS -5.9 (L) 08/26/2019 VBGPH 7.29 (L) 08/26/2019 VBGPCO2 42 08/26/2019 VBGPO2 35 08/26/2019 VBGHCO3 20 (L) 08/26/2019 Up to Last 5 ABGs in 72 hours: No results for input(s): PH, PCO2, PO2, HCO3, HNACA6QFH, R4RCXPEH, Q9LOXFNSW, FIO2 in the l ast 72 hours. Lab Results Component Value Date PH 7.33 (L) 08/26/2019 PCO2 34 08/26/2019 PO2 88 08/26/2019 HCO3 18 (L) 08/26/2019 [id number] 97.2 08/26/2019 FIO2 0.21 08/26/2019 [id number] 419 08/26/2019 Recent Labs 11/21/19 1909 11/22/19 0414 11/23/19 1823 11/25/19 0044 11/25/19 0948 11/25/19 1649 NA 136 134* < > 135* < > 136 137 137 K 5.0 5.8* < > 5.9* < > 4.7 4.8 4.5 CL 110* 111* < > 113* < > 110* 112* 112* BICARB 16* 11* < > 13* < > 15* 16* 15* BUN 78* 77* < > 69* < > 63* 63* 62* CR 2.92* 3.13* < > 2.76* < > 2.63* 2.47* 2.28* GLU 72 88 < > 130* < > 126* 112* 82 CA 8.1* 8.4* < > 8.4* < > 7.9* 7.9* 7.8* AST 44* 46* -- 63* -- -- -- -- ALT 19 19 -- 29 -- -- -- -- AP 91 93 -- 100* -- -- -- -- TBILI 0.5 0.5 -- 0.5 -- -- -- -- TP 5.0* 5.2* -- 5.7* -- -- -- -- ALB 1.5* 1.6* -- 1.8* -- -- -- -- ANIONGAP 10 12* < > 9 < > 11 9 10 ANIONALBCOR 16* 18* -- 14* -- -- -- -- < > = values in this interval not displayed. CBC with diff last 72 hours (or 3 results) - Refreshable Recent Labs 11/23/19 0446 11/23/19 1825 11/24/19 0402 11/25/19 0353 WBC 4.86 8.41 9.31 8.55 HB 10.1* 11.5* 10.9* 9.5* HCT 31.2* 35.3* 33.3* 30.0* PLT 187 262 238 166 NEUTROPERC 82.7* -- -- -- LYMPHPERC 10.3* -- -- -- MONOPERC 6.4 -- -- -- BASOPERC 0.2 -- -- -- EOSPERC 0.0* -- -- -- Lab Results Component Value Date APTT 38.7 (H) 11/24/2019 FIBRINOGEN 488 (H) 08/25/2019 Lab Results Lab Test Name Value Date [id number] 5.6 08/26/2019 Lab Results Lab Test Name Value Date URICACID 3.5 09/01/2019 Lab Results Lab Test Name Value Date FREET4 2.2 11/25/2019 TSH 3.44 11/23/2019 TPOAB 0.3 11/21/2019 [id number] 86 11/21/2019 Lab Results Component Value Date IRON 66 08/30/2019 IRONBINDCAP 242 08/30/2019 SATTRANSFERR 27 08/30/2019 FERRITIN 567 (H) 08/30/2019 No results found for: CK Lab Results Lab Test Name Value Date TROPONIN 0.77 11/25/2019 TROPONIN 1.27 11/23/2019 TROPONIN <0.02 11/23/2019 TROPONIN 0.08 11/21/2019 TROPONIN 0.05 11/21/2019 Lab Results Lab Test Name Value Date NTPROBNP 12,502 11/24/2019 NTPROBNP 9,366 11/23/2019 NTPROBNP 3,981 11/21/2019 No results found for: LIPASE No results found for: AMYLASEPLAS No results found for: LEEOUGH Lab Results Lab Test Name Value Date LACTICACID 1.1 11/21/2019 LACTICACID 0.9 08/25/2019 LACTICACID 1.2 08/25/2019 LACTICACID 0.9 08/25/2019 Lab Results Component Value Date MG 1.7 08/25/2019 Lab Results Component Value Date PO4 2.5 09/01/2019 PO4 2.8 08/31/2019 PO4 2.2 (L) 08/30/2019 PO4 2.2 (L) 08/29/2019 PO4 3.2 08/27/2019 Lab Results Component Value Date CR 2.28 (H) 11/25/2019 CR 2.47 (H) 11/25/2019 CR 2.63 (H) 11/25/2019 CR 2.70 (H) 11/24/2019 CR 2.50 (H) 11/24/2019 Lab Results Lab Test Name Value Date URICACID 3.5 09/01/2019 URICACID 3.0 08/31/2019 URICACID 5.5 08/30/2019 URICACID 9.7 08/29/2019 URICACID 10.5 08/28/2019 URICACID 11.2 08/24/2019 No results found for: FK506 Lab Results Component Value Date INRPT 1.11 11/23/2019 Lab Results Lab Test Name Results Date/Time QTCB 438 11/23/19 QTCB 457 11/23/19 QTCB 431 11/22/19 QTCB 425 11/21/19 QTCB 447 11/21/19 QTCB 429 08/25/19 QTCB 420 08/25/19 QTCB 436 08/24/19 Results for orders placed or performed during the hospital encounter of 11/21/19 12 LEAD ECG Result Value Ref Range VENTRICULAR RATE 134 bpm ATRIAL RATE 134 ms P-R INTERVAL 164 ms P AXIS -6 deg QRS DURATION 105 ms QT 293 ms QTC-BAZETT 438 ms R AXIS 180 deg T AXIS 80 deg ECG IMPRESSION Sinus tachycardia ECG IMPRESSION Low voltage, precordial leads ECG IMPRESSION Abnormal lateral Q waves ECG IMPRESSION Indeterminate axis- ABNORMAL ECG - ECG IMPRESSION Electronically signed by: ALEJANDRA IQBAL 11-24-2019 17:01:20 Lab Results Component Value Date RVSP 62 11/22/2019 RVSP 76 08/26/2019 Lab Results Component Value Date URINECOLOR Yellow 11/21/2019 URAPPEARANCE Sl.Cloudy 11/21/2019 Lab Results Component Value Date URINEAMPPHOS None 11/21/2019 URINEBACTERI None 11/21/2019 URINECAOX None 11/21/2019 URINECAST 0 11/21/2019 URINEGRANCAS 0 11/21/2019 URINEHYALINE 0 11/21/2019 URINEMUCOUS None 11/21/2019 URINEEPITH None 11/21/2019 URINEREDCELL >1,000 11/21/2019 URINESQEPI None 11/21/2019 URINEPO4 None 11/21/2019 URINEWBC 2 11/21/2019 URINEYEAST None 11/21/2019 Last Drug Screen: No results found for: AMPHETAMINES, METHAMPHETAM, BARBITURATE, BENZO, CA NNABIS, COCAINE, ETOH, ETHANOL, OPIATE, ORGBASES, OXYCODONE, METHADONE MELD-Na score: 15 at 11/25/2019 4:49 PM MELD score: 15 at 11/25/2019 4:49 PM Calculated from: Serum Creatinine: 2.28 mg/dL at 11/25/2019 4:49 PM Serum Sodium: 137 mmol/L at 11/25/2019 4:49 PM Total Bilirubin: 0.5 mg/dL (Rounded to 1 mg/dL) at 11/23/2019 6:23 PM INR(ratio): 1.11 INR at 11/23/2019 6:23 PM Age: 54 years Lisa Lopez MD - 11/24 9:19 PM PDTI performed a history and physical examination of the patient and discusse d her management with the resident. I reviewed the resident s note and agree with the doc umented findings and plan of care. 54 year old woman with renal cell carcinoma admitted to MICU with acute massive PE. Recove red well after treatment with thrombolytic therapy. I spent 45 min with pt. LISA SULLIVAN MD [facility] [address] [place] [address] Megha Wiggins MD - 11/24 6:46 AM PDT [facility] MEDICAL ICU - PROGRESS NOTE Hospital Day: 4 | ICU Day: 4 ID/CC: Hank Altman is a 54 y.o. woman admitted to the MICU for shock and hypoxia secondary to massive PE. Consultants: Endocrinology 24 Hour Events: - LLQ crampy abdominal pain overnight with benign abd exam, improved this am - still on low dose NE Subjective: - abdominal pain improved, felt crampy - denies SOB, CP Vital Signs: Cuff BP 104/63 (11/25/19 0315) | BP Min: 89/69 Max: 104/63 Cuff MAP 75 mmHg (11/25/19 0315) | BP Mean Min: 66 mmHg Max: 82 mmHg Art Line BP 103/52 (11/25/19 0545) | ART Line BP Min: 81/51 Max: 125/55 Art Line MAP 68 mmHg (11/25/19 0545) | ART Line BP Mean Min: 60 mmHg Max: 79 mmHg HR 104 (11/25/19 0545) | Pulse Min: 103 Max: 115 | Cardiac Rhythm: Sinus Tachycardia ( 0400) Temp 36.7 C (98.1 F) (11/24/19 1600) | Temp Min: 36.7 C (98.1 F) Max: 36.8 C (9 8.2 F) RR 24 (11/25/19 0545) | Resp Min: 7 Max: 38 SpO2 98 % (11/25/19 0545) | SpO2 Min: 97 % Max: 100 % O2 Device Nasal cannula (11/25/19 0400) | Cam/RASS Most Recent Value Overall CAM-ICU Negative RASS Scale 0 CPOT 0 (11/24/19 1400) Intake/Output Summary (Last 24 hours) at 11/25/19 0700 Last data filed at 11/25/19 0400 Gross per 24 hour Intake 906.85 ml Output 480 ml Net 426.85 ml Intake/Output Summary (since admission) at 11/21/19 1212 Last data filed at 11/25/19 0400 Gross for the last 4 days Intake 68485.87 ml Output 4490 ml Net since Admission 5957.87 ml BMI: 34.3 Weights 85 kg (187 lb 6.3 oz) (11/21/19 2125) 80.7 kg (178 lb) (11/21/19 1220) Admit Wt: 80.9 kg (178 lb 6.4 oz) Physical Exam: GEN: sleepy but arousable HEENT: EOMI; PERRL CV: tachycardic but reg, WWP; ?S3 PULM: CTAB,speaking in full sentences ABD: non-tender, non-distended, soft. No flank ecchymosis. SKIN: no rashes NEURO: AAOx3; CN II-XII intact; 5/5 strength in BUE and BLE with distal sensation intact Laboratories: Recent Labs 11/23/19 0446 11/23/19 1825 11/24/19 0402 11/25/19 0353 WBC 4.86 8.41 9.31 8.55 HB 10.1* 11.5* 10.9* 9.5* HCT 31.2* 35.3* 33.3* 30.0* MCV 87.4 88.3 87.2 87.7 PLT 187 262 238 166 NEUTROPHILCO 4.02 -- -- -- LYMPHSABS 0.50* -- -- -- MONOCYTECO 0.31 -- -- -- EOSCO 0.00 -- -- -- BASOPHILCO 0.01 -- -- -- IMGRANABS 0.02 -- -- -- Recent Labs 11/23/19 1823 11/24/19 0402 11/24/19 0605 11/24/19 0958 INRPT 1.11 -- -- -- -- APTT 25.2* < > 148.8* 106.6* 38.7* < > = values in this interval not displayed. Recent Labs 11/24/19 1135 11/24/19 1652 11/25/19 0044 NA 137 138 136 K 5.5* 5.2* 4.7 CL 109* 111* 110* BICARB 14* 15* 15* BUN 63* 62* 63* CR 2.50* 2.70* 2.63* CA 8.0* 7.8* 7.9* ANIONGAP 14* 12* 11 Recent Labs 11/24/19 1000 11/24/19 1135 11/24/19 1652 11/25/19 0044 GLU 122* 121* 110* 126* Recent Labs 11/23/19 1823 AST 63* ALT 29 TBILI 0.5 AP 100* ALB 1.8* TP 5.7* Recent Labs 11/23/19 1823 11/23/19 2327 11/24/19 0402 11/25/19 0353 TROPONIN <0.02 1.27* -- 0.77 NTPROBNP 9,366* -- 12,502* -- Lab Orders - In Process (From admission to next 24h) Start Ordered 11/23/19 0800 ALDOSTERONE, SERUM TOMORROW AM 11/22/19 1152 11/23/19 0800 RENIN, PLASMA TOMORROW AM 11/22/19 1152 Microbiology: None Imaging: No interval imaging EKG/Echocardiogram: TTE 11/23/19 Final Impressions: 1. The LV function is normal. 2. RV cavity size is severely enlarged. RV global systolic function is severely reduced. 3. The aortic valve is trileaflet and mildly calcified. There is no significant aortic valve stenosis. 4. Compared to the most recent exam dated 11/22/2019, there are no signicant changes of the LV function. RV is larger and RV dysfunction is more prominent. Current Facility-Administered Medications Medication Dose Route Frequency Last Rate heparin in D5W 25,000 Units/250 mL (100 Units/mL) IV infusion (RTU) 1-2,500 Units/hr i ntravenous CONTINUOUS 1,050 Units/hr (11/25/19 0548) norepinephrine (LEVOPHED) 8mg/250 mL (0.032 mg/mL) IV infusion (ADC) 0.02-0.2 mcg/kg/m in intravenous CONTINUOUS 0.06 mcg/kg/min (11/25/19 0400) Current Facility-Administered Medications Medication Dose Route Frequency Last Rate acetaminophen (TYLENOL) tablet 500 mg 500 mg oral Q8H atorvastatin (LIPITOR) tablet 20 mg 20 mg oral QPM hydrocortisone sodium succinate (PF) (SOLU-CORTEF) injection 50 mg 50 mg intravenous Q 8H lidocaine (LIDODERM) 5 % patch 1 patch 1 patch transdermal Q24H omeprazole (PRILOSEC) capsule 20 mg 20 mg oral BID polyethylene glycol (MIRALAX) packet 17 g 17 g oral BID senna-docusate (SENOKOT S) 8.6-50 mg 1 tablet 1 tablet oral BID sodium zirconium (LOKELMA) 10 g oral powder 10 g oral TID Current Facility-Administered Medications Medication Dose Route Frequency Last Rate bisacodyL (DULCOLAX) suppository 10 mg 10 mg rectal DAILY PRN heparin bolus from continuous infusion 3,400 Units 40 Units/kg intravenous NEEDED ( BOLUS) heparin bolus from continuous infusion 6,800 Units 80 Units/kg intravenous NEEDED ( BOLUS) HYDROmorphone (DILAUDID) injection 0.2-0.5 mg 0.2-0.5 mg intravenous Q2H PRN melatonin tablet 3 mg 3 mg oral HS PRN menthol-zinc oxide (CALAZIME) topical paste 0.2%-16.5% topical QID PRN ondansetron (ZOFRAN) injection 4 mg 4 mg intravenous Q12H PRN oxyCODONE (immediate release) (ROXICODONE) tablet 5-10 mg 5-10 mg oral Q4H PRN Assessment &Plan: Raimundo nettles 54F with PMH of Hodgkins lymphoma s/p CHOPP and XRT c/b hypothyroidism, CKD3, and stage IV RCC on nivolumab/ipilumab with mets to liver/lung/bone with L2 pathologic fracture s/p kyphoplasty admitted to MICU for shock and RV failure on 18for massive PE. #Shock 2/2 Massive PE # Right heart strain #Acute hypoxemic respiratory failure s/p TPA 11/22. HR improving but still requiring vasopressor support. Given has lower bps at baseline, will change SBP goal to >90. CVP 11-14, will try to diurese today gently. - cont NE for SBP <90 - lasix 20 mg IV x 1 now - continue heparin #JONO on CKD3 # Hyperkalemia # NAGMA Baseline Cr 1.4-2. Likely 2/2 ATN from shock vs R heart failure contributing vs RCC and res ultant renal veintumorthrombosis or combination. Cr slightly improved but UO remains low . Gave K binder, with improvement but discontinued today for GI distress and normalized K. W ill trial diuresis as above. No indications for air tester. - Q12 BMP - ensure at least daily BM #Thyrotoxicosis Presented with TSH 6.77 and fT4 4.2, and presentation concerning for hyperthyroidism due to checkpoint inhibitor therapy. Was started on hydrocortisone 100mg q8h which was being weane d, and was on PTU and cholestyramine (now off) with fT4 down to 2.7. Restarted stress steroi ds on 11/22. Discussed with endocrinology, who provided tapering schedule for steroids (see n ote) - cont hydrocortisone 50 mg Q12 IV - 11/25 - if stable hemodynamically, changed to hydrocortisone 40 mg BID - trend T4 daily or EVERY OTHER DAY and day of d/c - hold levothyroxine on d/c - labs 1 week post discharge in am before taking hydrocrotissoen #Chronic Pain - APAP 1000mg Q6 - cont oxycodone 5-10 Q4 prn - dilaudid 0.02-0.05 IV prn # L1 compression fracture # Hx of L2 pathologic fracture s/p kyphoplasty 08/2019 Hx of L2 pathologic fracture s/p kyphoplasty in 08/2019. Presented to ED this time with CT a/p showing incidental L1 compression fracture, no clearly pathologic etiology. -Neurosurgery spine consulted, appreciate recs: -non-op -pain control -Neurosurgery signed off; f/u 6 weeks (they will arrange) # Stage IVLRCC Has L RCC with mets to lung/liver/bone and pathologic L2 fracture s/p kyphoplasty in 9. On nivolumab and ipilimumab. -hold nivo/ipi -Onc following # GERD (chronic) -omeprazole bid # HLD (chronic) -atorva Present on admission Acute systolic heart failure Cardiogenic shock Acute respiratory failure Acute non-oliguric kidney injury Acute hyperkalemia Massive pulmonary embolism Hyperthyroidism Renal vein thrombosis Renal cell carcinoma Non-anion gap metabolic acidosis L1 compression fracture Consultants:IR, Endo, Onc, Cards Feeding:Low K diet Analgesia:Acetaminophen and Oxycodone and hydromorphone Sedation:None(RASS Goal0 (alert and calm)) Thromboprophylaxis:Heparin IV Head of Bed:Ad radha Ulcer Prophylaxis:PPI Glycemic control:BS controlled < 180, insulin not indicated MobilityGoal:Bed rest Lines/Tubes/Drains/Airways:L IJCVC and Arterial Line, PIV x2 Code Status Code Status Full Code Surrogate Decision Maker Documentation: Surrogate Decision Maker Primary Surrogate Decision Maker Amada Manzanares sister [phone] Secondary Surrogate Decision Maker William jay This patient was staffed with Dr. Sullivan, attending physician. Megha Hahn MD 11/25/2019, 6:46 AM Template created by [employer] 2017 Tg Hays MD - 020 9:00 PM PDT MICU ATTENDING PROGRESS NOTE Author: TG URIOSTEGUI MD Attending Physician: Tg Uriostegui MD Patients Hospital Problem List: Active Hospital Problems 1) *Hypotension, unspecified hypotension type 2) Renal cell adenocarcinoma (HCC) 3) Hyperkalemia 4) JONO (acute kidney injury) (HCC) 5) Hypotension 6) Closed compression fracture of body of L1 vertebra (HCC) 7) Hypothyroidism, unspecified type 8) Renal cell carcinoma, unspecified laterality (HCC) 9) Hyperthyroidism Assessment and Plan: I personally interviewed the patient, performed the gonsales elements of the physical examinatio n, and personally formulated the assessment and plan with the MICU resident and the team. Se mirelse resident note for details. Hospital day # 3. Hank is a 54 y.o. female with prior history of Hodgkin's lymphoma in 2002 who has stage I V advanced renal cell carcinoma with multiple metastases including lung, liver as well as jana mbar spine. Patient had a recent kyphoplasty and was admitted with hypotension and JONO in t he setting of thyrotoxicosis. Patient was on the medicine floor and had a code called for a cute onset of lower extremity pain, swelling shortness of breath, tachycardia and hypotensio n and was brought to the ICU. She had a high PESI score and was started on vasopressor supp ort and stabilized to get a CT chest PE protocol. CT of the head was also ordered to evalua te for new metastases, MRI in August 2019 was negative for intracranial metastases. Neuro: Alert awake no focal deficits Resp: High risk for pulmonary embolism/tumor embolism. Patient has new requirement for oxygen . CVS: Hemodynamically unstable requiring vasopressor support. NE requirements decreasing. ID: No active issues GI / Hepatology/ Nutrition: PPI Renal / Electrolytes: Acute kidney injury in the setting of renal cell carcinoma with hyperkalemia --> Worseni ng Hyperkalemia --> Medically manage Hem-Onc: Patient's clinical picture suggestive of either tumor embolism or pulmonary embolism in the setting of deep venous thrombosis either in the lower extremity or IVC related to renal cell carcinoma. Patient started on anticoagulation with heparin after systemic TPA. Oncology note from 11-23 suggests good prognosis and recommend aggressive treatment. 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 Code status/Family: Currently full code TG URIOSTEGUI MD [facility] [address] [place] [address] I spent 25 min in critical care. Current Meds: Current Facility-Administered Medications Medication Dose Route Frequency acetaminophen (TYLENOL) tablet 500 mg 500 mg oral Q8H atorvastatin (LIPITOR) tablet 20 mg 20 mg oral QPM bisacodyL (DULCOLAX) suppository 10 mg 10 mg rectal DAILY PRN cholestyramine (with sugar) (QUESTRAN) packet 4 g 4 g oral DAILY heparin bolus from continuous infusion 3,400 Units 40 Units/kg intravenous NEEDED ( BOLUS) heparin bolus from continuous infusion 6,800 Units 80 Units/kg intravenous NEEDED ( BOLUS) heparin in D5W 25,000 Units/250 mL (100 Units/mL) IV infusion (RTU) 1-2,500 Units/hr i ntravenous CONTINUOUS hydrocortisone sodium succinate (PF) (SOLU-CORTEF) injection 50 mg 50 mg intravenous Q 8H HYDROmorphone (DILAUDID) injection 0.2-0.5 mg 0.2-0.5 mg intravenous Q2H PRN lidocaine (LIDODERM) 5 % patch 1 patch 1 patch transdermal Q24H melatonin tablet 3 mg 3 mg oral HS PRN menthol-zinc oxide (CALAZIME) topical paste 0.2%-16.5% topical QID PRN norepinephrine (LEVOPHED) 8mg/250 mL (0.032 mg/mL) IV infusion (ADC) 0.02-0.2 mcg/kg/m in intravenous CONTINUOUS omeprazole (PRILOSEC) capsule 20 mg 20 mg oral BID ondansetron (ZOFRAN) injection 4 mg 4 mg intravenous Q12H PRN oxyCODONE (immediate release) (ROXICODONE) tablet 5-10 mg 5-10 mg oral Q4H PRN polyethylene glycol (MIRALAX) packet 17 g 17 g oral BID senna-docusate (SENOKOT S) 8.6-50 mg 1 tablet 1 tablet oral BID sodium zirconium (LOKELMA) 10 g oral powder 10 g oral TID vasopressin 20 Units/100 mL (0.2 Unit/mL) in NS IV infusion (RTU) 0.03 Units/min intra venous CONTINUOUS Physical Exam: Vital Signs: Cuff BP 102/66 (11/24/19 0900) | BP Min: 87/67 Max: 106/86 Cuff MAP 78 mmHg (11/24/19899) | BP Mean Min: 69 mmHg Max: 93 mmHg Art Line BP 102/49 (11/24/191999) | ART Line BP Min: 75/59 Max: 112/52 Art Line MAP 64 mmHg (11/24/191999) | ART Line BP Mean Min: 63 mmHg Max: 88 mmHg HR 110 (11/24/191999) | Pulse Min: 105 Max: 135 | Cardiac Rhythm: Sinus Tachycardia (1599) Temp 36.7 C (98.1 F) (11/24/191599) | Temp Min: 36.7 C (98.1 F) Max: 36.8 C (9 8.2 F) RR (!) 27 (11/24/191999) | Resp Min: 12 Max: 36 SpO2 99 % (11/24/191999) | SpO2 Min: 97 % Max: 100 % O2 Device Nasal cannula (11/24/191599) | Cam/RASS Most Recent Value Overall CAM-ICU Negative RASS Scale 0 CPOT 0 (11/24/19 1400) Intake/Output Summary (Last 24 hours) at 11/24/2019 2100 Last data filed at 11/24/2019 1800 Gross per 24 hour Intake 2386.07 ml Output 540 ml Net 1846.07 ml BMI: 34.3 Weights 85 kg (187 lb 6.3 oz) (11/21/192124) 80.7 kg (178 lb) (11/21/19 1220) Admit Wt: 80.9 kg (178 lb 6.4 oz) Mechanical Ventilation [place] body weight: 50.1 kg (110 lb 7.2 oz) Adjusted ideal body weight: 64.1 kg (141 lb 3.6 oz) , -- SpO2: 99 % (11/24/191999) Last PaO2/FiO2 ratio: Plateau: Driving Pressure: PAO2/FIO2 RATIO Date/Time Value Ref Range Status 08/26/2019 10:20 AM 419 >300 mmHg Final Lab Results Component Value Date PH 7.33 (L) 08/26/2019 PCO2 34 08/26/2019 PO2 88 08/26/2019 HCO3 18 (L) 08/26/2019 [id number] 97.2 08/26/2019 FIO2 0.21 08/26/2019 [id number] 419 08/26/2019 Lab Results Component Value Date VBGEXCESS -5.9 (L) 08/26/2019 VBGPH 7.29 (L) 08/26/2019 VBGPCO2 42 08/26/2019 VBGPO2 35 08/26/2019 VBGHCO3 20 (L) 08/26/2019 Up to Last 5 ABGs in 72 hours: No results for input(s): PH, PCO2, PO2, HCO3, PHJMG4VRB, R2XAOMXZ, N6HZESCJQ, FIO2 in the l ast 72 hours. Lab Results Component Value Date PH 7.33 (L) 08/26/2019 PCO2 34 08/26/2019 PO2 88 08/26/2019 HCO3 18 (L) 08/26/2019 [id number] 97.2 08/26/2019 FIO2 0.21 08/26/2019 [id number] 419 08/26/2019 Recent Labs 11/21/19 1909 11/22/19 0414 11/23/19 1823 11/24/19 0402 11/24/19 1000 11/24/19 1135 11/24/19 1652 NA 136 134* < > 135* < > 134* -- 137 138 K 5.0 5.8* < > 5.9* < > 5.7* -- 5.5* 5.2* CL 110* 111* < > 113* < > 111* -- 109* 111* BICARB 16* 11* < > 13* < > 13* -- 14* 15* BUN 78* 77* < > 69* < > 61* -- 63* 62* CR 2.92* 3.13* < > 2.76* < > 2.45* -- 2.50* 2.70* GLU 72 88 < > 130* < > 157* 122* 121* 110* CA 8.1* 8.4* < > 8.4* < > 8.1* -- 8.0* 7.8* AST 44* 46* -- 63* -- -- -- -- -- ALT 19 19 -- 29 -- -- -- -- -- AP 91 93 -- 100* -- -- -- -- -- TBILI 0.5 0.5 -- 0.5 -- -- -- -- -- TP 5.0* 5.2* -- 5.7* -- -- -- -- -- ALB 1.5* 1.6* -- 1.8* -- -- -- -- -- ANIONGAP 10 12* < > 9 < > 10 -- 14* 12* ANIONALBCOR 16* 18* -- 14* -- -- -- -- -- < > = values in this interval not displayed. CBC with diff last 72 hours (or 3 results) - Refreshable Recent Labs 11/22/19 0414 11/23/19 0446 11/23/19 1825 11/24/19 0402 WBC 3.36* 4.86 8.41 9.31 HB 10.9* 10.1* 11.5* 10.9* HCT 35.2* 31.2* 35.3* 33.3* PLT 202 187 262 238 NEUTROPERC 78.2* 82.7* -- -- LYMPHPERC 16.1* 10.3* -- -- MONOPERC 4.2 6.4 -- -- BASOPERC 0.3 0.2 -- -- EOSPERC 0.6* 0.0* -- -- Lab Results Component Value Date APTT 38.7 (H) 11/24/2019 FIBRINOGEN 488 (H) 08/25/2019 Lab Results Lab Test Name Value Date [id number] 5.6 08/26/2019 Lab Results Lab Test Name Value Date URICACID 3.5 09/01/2019 Lab Results Lab Test Name Value Date FREET4 2.4 11/24/2019 TSH 3.44 11/23/2019 TPOAB 0.3 11/21/2019 [id number] 86 11/21/2019 Lab Results Component Value Date IRON 66 08/30/2019 IRONBINDCAP 242 08/30/2019 SATTRANSFERR 27 08/30/2019 FERRITIN 567 (H) 08/30/2019 No results found for: CK Lab Results Lab Test Name Value Date TROPONIN 1.27 11/23/2019 TROPONIN <0.02 11/23/2019 TROPONIN 0.08 11/21/2019 TROPONIN 0.05 11/21/2019 TROPONIN <0.02 10/31/2019 Lab Results Lab Test Name Value Date NTPROBNP 12,502 11/24/2019 NTPROBNP 9,366 11/23/2019 NTPROBNP 3,981 11/21/2019 No results found for: LIPASE No results found for: AMYLASEPLAS No results found for: VANCOTROUGH Lab Results Lab Test Name Value Date LACTICACID 1.1 11/21/2019 LACTICACID 0.9 08/25/2019 LACTICACID 1.2 08/25/2019 LACTICACID 0.9 08/25/2019 Lab Results Component Value Date MG 1.7 08/25/2019 Lab Results Component Value Date PO4 2.5 09/01/2019 PO4 2.8 08/31/2019 PO4 2.2 (L) 08/30/2019 PO4 2.2 (L) 08/29/2019 PO4 3.2 08/27/2019 Lab Results Component Value Date CR 2.70 (H) 11/24/2019 CR 2.50 (H) 11/24/2019 CR 2.45 (H) 11/24/2019 CR 2.43 (H) 11/23/2019 CR 2.76 (H) 11/23/2019 Lab Results Lab Test Name Value Date URICACID 3.5 09/01/2019 URICACID 3.0 08/31/2019 URICACID 5.5 08/30/2019 URICACID 9.7 08/29/2019 URICACID 10.5 08/28/2019 URICACID 11.2 08/24/2019 No results found for: FK506 Lab Results Component Value Date INRPT 1.11 11/23/2019 Lab Results Lab Test Name Results Date/Time QTCB 438 11/23/19 QTCB 457 11/23/19 QTCB 431 11/22/19 QTCB 425 11/21/19 QTCB 447 11/21/19 QTCB 429 08/25/19 QTCB 420 08/25/19 QTCB 436 08/24/19 Results for orders placed or performed during the hospital encounter of 11/21/19 12 LEAD ECG Result Value Ref Range VENTRICULAR RATE 134 bpm ATRIAL RATE 134 ms P-R INTERVAL 164 ms P AXIS -6 deg QRS DURATION 105 ms QT 293 ms QTC-BAZETT 438 ms R AXIS 180 deg T AXIS 80 deg ECG IMPRESSION Sinus tachycardia ECG IMPRESSION Low voltage, precordial leads ECG IMPRESSION Abnormal lateral Q waves ECG IMPRESSION Indeterminate axis- ABNORMAL ECG - ECG IMPRESSION Electronically signed by: ALEJANDRA IQBAL 11-24-2019 17:01:20 Lab Results Component Value Date RVSP 62 11/22/2019 RVSP 76 08/26/2019 Lab Results Component Value Date URINECOLOR Yellow 11/21/2019 URAPPEARANCE Sl.Cloudy 11/21/2019 Lab Results Component Value Date URINEAMPPHOS None 11/21/2019 URINEBACTERI None 11/21/2019 URINECAOX None 11/21/2019 URINECAST 0 11/21/2019 URINEGRANCAS 0 11/21/2019 URINEHYALINE 0 11/21/2019 URINEMUCOUS None 11/21/2019 URINEEPITH None 11/21/2019 URINEREDCELL >1,000 11/21/2019 URINESQEPI None 11/21/2019 URINEPO4 None 11/21/2019 URINEWBC 2 11/21/2019 URINEYEAST None 11/21/2019 Last Drug Screen: No results found for: AMPHETAMINES, METHAMPHETAM, BARBITURATE, BENZO, CA NNABIS, COCAINE, ETOH, ETHANOL, OPIATE, ORGBASES, OXYCODONE, METHADONE MELD-Na score: 17 at 11/24/2019 4:52 PM MELD score: 17 at 11/24/2019 4:52 PM Calculated from: Serum Creatinine: 2.70 mg/dL at 11/24/2019 4:52 PM Serum Sodium: 138 mmol/L (Rounded to 137 mmol/L) at 11/24/2019 4:52 PM Total Bilirubin: 0.5 mg/dL (Rounded to 1 mg/dL) at 11/23/2019 6:23 PM INR(ratio): 1.11 INR at 11/23/2019 6:23 PM Age: 54 years Kassidy Jacobo MD - 11/23 3:44 PM PDTBrief Oncology Non-Visit Note Contacted by MICU team regarding update on patient. She unfortunately developed a PE and poe d a code blue event yesterday and now is in the MICU on 2 pressors. She got lytics. She is 9 9% on RA. Team wondering what her prognosis is from metastatic RCC. She has received 3 cycle s of ipi/nivo and appears to have stable disease on CT scans this admission. According to Checkmate 214, median overall survival not reached in study yet but 30 month O S was 64%. Median time to response 2.8 months. Many patients with metastatic RCC live for ye ars. Her stable disease on immunotherapy is encouraging. Once endocrinopathy is less acute, she should be able to resume this treatment. She will need cycle 4 of nivo/ipi then likely n ivo maintenance. She has many additional treatment options. She is otherwise young and previ ously healthy. Thus from oncology standpoint it makes sense to pursue aggressive care if thi s is within patients goals. Kassidy Chinchilla MD Hematology Oncology Fellow [id number] Associated attestation - Jacky Brand MD - 11/25/2019 8:29 AM PDTI reviewed history and physical examination of the patient and discussed her management with the fellow. I rev iewed the fellow's note and agree with the documented findings and plan of care. Jacky Brand MD [facility] [address] [place] [address] Cris Dinh MD - 11/24/2019 10:23 AM PDTFormatting of this note might be different fro m the original. MICU Attending Note Admission Date: 11/21/2019 Length of stay: 3 days ID: Hank Altman is a 54 y.o. female with lymphoma and stage IV renal carcinoma admitted to MICU with massive PE. 24 Hour Events: Transferred to MICU, given IVF, central line and a-line placed, started on norepinephrin e and vasopressin PERT team activiated, PE confirmed on CTA, given systemic tPA and heparin d/c'd Neuro checks have been stable overnight Troponin increased to 1.27, NT-pro BNP 12,502 this morning I personally reviewed the laboratory and radiology data from the last 24 hours. Pertinent Imagin/18 CTA: IMPRESSION: Extensive acute bilateral pulmonary emboli involving both distal mainstem pulmonary arterie s, multiple bilateral lobar and segmental arteries with CT evidence of right heart strain. N o evidence of pulmonary infarct. Unchanged pulmonary nodules, as described above. 11/22 CT A/P: IMPRESSION: 1. Compared to 11/21/2019, no significant change in the large infiltrative left renal cell c arcinoma with extension into the left renal vein and associated tumor thrombus extending to the level of the IVC. No IVC tumor. 2. Bulky hepatic metastases appear stable (see comment above). Stable retroperitoneal lymph adenopathy. 3. Unchanged vertebral body L2 pathologic fracture post kyphoplasty and new L1 compression deformity. 11/22 TTE: 1. The LV function is normal. 2. RV cavity size is severely enlarged. RV global systolic function is severely reduced. 3. The aortic valve is trileaflet and mildly calcified. There is no significant aortic valve stenosis. 4. Compared to the most recent exam dated 11/22/2019, there are no significant changes of the LV function. RV is larger and RV dysfunction is more prominent. ACTIVE DIAGNOSES: # massive PE with evidence of right heart strain # obstructive shock in s/o massive PE # renal cell carcinoma metastatic to lung, liver, spine # JONO - received contrast overnight for CTA # hyperkalemia # hypothyroidism c/b thyrotoxicosis - possibly due to nivolumab and ipilimumab # chronic pain ASSESSMENT AND PLAN: - Epinephrine would be a better choice of pressors in the treatment of obstructive shock. W ould favor weaning off vasopressin and reducing afterload with plan to add epi in its place - transduce CVP, check ScVo2 and follow UOP closely. Will likely need diuresis later today - reach out to oncology given patient's critical illness and worsening renal failure in s/o metastatic cancer - need to clarify plan for hydrocortisone and cholestyramine (has been ordered by endocrine in s/o thyrotoxicosis) - restart heparin infusion when PTT falls below 70 (checking q4h) - add potassium binder and check frequent panels given hyperkalemia in s/o JONO. - advance diet as tolerated - remains ICU level of care, at high risk of clinical deterioration ATTESTATION: I evaluated the patient at the bedside with the MICU team. Please see their n ote for a detailed rounding summary. I reviewed the documented findings, relevant data, and recent imaging. I agree with the assessment and plan as described in the resident's note w ith the following exceptions/additions as noted above. I spent a total of 40 minutes of critical care time (managing issues that acutely impair on e or more vital organ systems such that there is a high probability of imminent or life thre atening deterioration in patient's condition). This time is exclusive of procedures. Cris Dinh MD [facility] [address] [place] [address] oemi Cowan - 8:29 AM PDTTransthoracic echocardiogram completed. Final report to follow.John ically signed by Noemi Cowan at 11/24/2019 8:29 AM Megha Wiggins MD - 11/24/2019 8:09 AM PDT [facility] MEDICAL ICU - PROGRESS NOTE Hospital Day: 3 | ICU Day: 3 ID/CC: Hank Altman is a 54 y.o. woman admitted to the MICU for shock and hypoxia secondary to massive PE. Consultants: Endocrinology 24 Hour Events: - given systemic TPA - continues on norepinephrine and vasopressin Subjective: - feels improved breathing and CP Vital Signs: Cuff BP 102/66 (11/24/19 0900) | BP Min: 64/54 Max: 108/58 Cuff MAP 78 mmHg (11/24/19 0900) | BP Mean Min: 58 mmHg Max: 93 mmHg Art Line BP 81/51 (11/24/19 1143) | ART Line BP Min: 63/43 Max: 108/73 Art Line MAP 63 mmHg (11/24/19 1143) | ART Line BP Mean Min: 50 mmHg Max: 88 mmHg HR 109 (11/24/19 1143) | Pulse Min: 93 Max: 142 | Cardiac Rhythm: Sinus Tachycardia (11/05 05/27 0742) Temp 36.8 C (98.2 F) (11/24/19 0800) | Temp Min: 36 C (96.8 F) Max: 36.8 C (98. 2 F) RR (!) 26 (11/24/19 1143) | Resp Min: 12 Max: 36 SpO2 99 % (11/24/19 1143) | SpO2 Min: 93 % Max: 100 % O2 Device Nasal cannula (11/24/19 1015) | Cam/RASS Most Recent Value Overall CAM-ICU Negative RASS Scale 0 CPOT Intake/Output Summary (Last 24 hours) at 11/24/19 0700 Last data filed at 11/24/19 0700 Gross per 24 hour Intake 5454.4 ml Output 1385 ml Net 4069.4 ml Intake/Output Summary (since admission) at 11/21/19 1212 Last data filed at 11/24/19 0700 Gross for the last 3 days Intake 9559.4 ml Output 4010 ml Net since Admission 5549.4 ml BMI: 34.3 Weights 85 kg (187 lb 6.3 oz) (11/21/19 2125) 80.7 kg (178 lb) (11/21/19 1220) Admit Wt: 80.9 kg (178 lb 6.4 oz) Physical Exam: GEN: sleepy but arousable HEENT: EOMI; PERRL CV: tachycardic but reg, WWP; ?S3 PULM: CTAB,speaking in full sentences ABD: non-tender, non-distended SKIN: no rashes NEURO: AAOx3; CN II-XII intact; 5/5 strength in BUE and BLE with distal sensation intact Laboratories: Recent Labs 11/22/19 0414 11/23/19 0446 11/23/19 1825 11/24/19 0402 WBC 3.36* 4.86 8.41 9.31 HB 10.9* 10.1* 11.5* 10.9* HCT 35.2* 31.2* 35.3* 33.3* MCV 89.8 87.4 88.3 87.2 PLT 202 187 262 238 NEUTROPHILCO 2.63 4.02 -- -- LYMPHSABS 0.54* 0.50* -- -- MONOCYTECO 0.14 0.31 -- -- EOSCO 0.02 0.00 -- -- BASOPHILCO 0.01 0.01 -- -- IMGRANABS 0.02 0.02 -- -- Recent Labs 11/23/19 1823 11/24/19 0402 11/24/19 0605 11/24/19 0958 INRPT 1.11 -- -- -- -- APTT 25.2* < > 148.8* 106.6* 38.7* < > = values in this interval not displayed. Recent Labs 11/23/19 1823 11/23/19 2327 11/24/19 0402 NA 135* 134* 134* K 5.9* 5.5* 5.7* CL 113* 112* 111* BICARB 13* 12* 13* BUN 69* 59* 61* CR 2.76* 2.43* 2.45* CA 8.4* 8.0* 8.1* ANIONGAP 9 10 10 Recent Labs 11/23/19 1601 11/23/19 1823 11/23/19 2325 11/23/19 2327 11/24/19 0402 11/24/19 1000 GLU 105* 130* 197* 208* 157* 122* Recent Labs 11/21/19 1909 11/22/19 0414 11/23/19 1823 AST 44* 46* 63* ALT 19 19 29 TBILI 0.5 0.5 0.5 AP 91 93 100* ALB 1.5* 1.6* 1.8* TP 5.0* 5.2* 5.7* Recent Labs 11/21/19 1323 11/21/19 1909 11/23/19 1823 11/23/19 2327 11/24/19 0402 LACTICACID 1.1 -- -- -- -- TROPONIN -- 0.08 <0.02 1.27* -- NTPROBNP -- 3,981* 9,366* -- 12,502* Lab Orders - In Process (From admission to next 24h) Start Ordered 11/23/19 0800 ALDOSTERONE, SERUM TOMORROW AM 11/22/19 1152 11/23/19 0800 RENIN, PLASMA TOMORROW AM 11/22/19 1152 Microbiology: None Imaging: Venous duplex LE (11/24/19) Conclusions: A normal venous examination of the bilateral lower extremities. No venous thro mbosis was detected. TTE 11/23/19 Cardiac Rhythm: Uncertain. Left Ventricle: Visually estimated left ventricular ejection fraction is 65 - 70%. The inte rventricular septum is flattened in systole and diastole consistent with right ventricular p ressure and volume overload. The LV diastolic filling pattern is normal. The LV function is normal. Left Ventricular Wall Motion: Left ventricular systolic thickening is normal in all segment s. Right Ventricle: Right ventricular cavity size is severely enlarged. The RV global systolic function is severely reduced. Unable to calculate RVSP due to absence of tricuspid regurgit ation. Aortic Valve: The aortic valve is trileaflet and mildly calcified. No indication of aortic valve regurgitation. Mitral Valve: Mild mitral annular calcification. Tricuspid Valve: The tricuspid valve is not well visualized. Pulmonic Valve: The pulmonic valve is not well visualized. Aorta: The ascending aorta is not well visualized. Venous: The inferior vena cava is abnormal. The inferior vena cava was dilated, with respir atory size variation less than 50%. Pericardium: No pericardial effusion is seen. EKG/Echocardiogram: 11/23/19 - ST with abnormal Q waves Current Facility-Administered Medications Medication Dose Route Frequency Last Rate heparin in D5W 25,000 Units/250 mL (100 Units/mL) IV infusion (RTU) 1-2,500 Units/hr i ntravenous CONTINUOUS 1,550 Units/hr (11/24/19 1226) norepinephrine (LEVOPHED) 8mg/250 mL (0.032 mg/mL) IV infusion (ADC) 0.02-0.2 mcg/kg/m in intravenous CONTINUOUS 0.06 mcg/kg/min (11/24/19 1145) vasopressin 20 Units/100 mL (0.2 Unit/mL) in NS IV infusion (RTU) 0.03 Units/min intra venous CONTINUOUS Stopped (11/24/19 1115) Current Facility-Administered Medications Medication Dose Route Frequency Last Rate acetaminophen (TYLENOL) tablet 500 mg 500 mg oral Q8H atorvastatin (LIPITOR) tablet 20 mg 20 mg oral QPM cholestyramine (with sugar) (QUESTRAN) packet 4 g 4 g oral DAILY hydrocortisone sodium succinate (PF) (SOLU-CORTEF) injection 100 mg 100 mg intravenous Q8H lidocaine (LIDODERM) 5 % patch 1 patch 1 patch transdermal Q24H omeprazole (PRILOSEC) capsule 20 mg 20 mg oral BID polyethylene glycol (MIRALAX) packet 17 g 17 g oral BID senna-docusate (SENOKOT S) 8.6-50 mg 1 tablet 1 tablet oral BID sodium zirconium (LOKELMA) 10 g oral powder 10 g oral TID Current Facility-Administered Medications Medication Dose Route Frequency Last Rate bisacodyL (DULCOLAX) suppository 10 mg 10 mg rectal DAILY PRN heparin bolus from continuous infusion 3,400 Units 40 Units/kg intravenous NEEDED ( BOLUS) heparin bolus from continuous infusion 6,800 Units 80 Units/kg intravenous NEEDED ( BOLUS) HYDROmorphone (DILAUDID) injection 0.2-0.5 mg 0.2-0.5 mg intravenous Q2H PRN melatonin tablet 3 mg 3 mg oral HS PRN menthol-zinc oxide (CALAZIME) topical paste 0.2%-16.5% topical QID PRN ondansetron (ZOFRAN) injection 4 mg 4 mg intravenous Q12H PRN oxyCODONE (immediate release) (ROXICODONE) tablet 5-10 mg 5-10 mg oral Q4H PRN Assessment & Plan: Hank Altman is a 54F with PMH of Hodgkins lymphoma s/p CHOPP and XRT c/b hypothyroidism, CK D3, and stage IV RCC on nivolumab/ipilumab with mets to liver/lung/bone with L2 pathologic f racture s/p kyphoplasty admitted to MICU for shock and RV failure on 11/22 for massive PE. # Shock 2/2 Massive PE # Right heart strain # Acute hypoxemic respiratory failure Now s/p TPA. HR improving but still requiring vasopressor support, and worsening JONO. 4L+, CVP 11 and SVO2 61. Wll continue to monitor CVP and coox. May benefit from greater inotropi c support (ie epinephrine). If NE requirement continues to increase, would consider transiti oning. - restarting heparin gtt VTE protocol now that PTT <70 - continue NE - trend CVP - wean O2 as able # JONO on CKD3 # Hyperkalemia # NAGMA Baseline Cr 1.4-2 it seems. Likely 2/2 ATN from shock vs R heart failure contributing vs RC C and resultant renal vein tumor thrombosis. UO has decreased, but Cr stable. May trial diur etic if UO continues to fall or unable to stabalize K. If renal function continues to worsen , would need to consider nephrology consult. - Q6 BMP - ensure at least daily BM - shifting PRN # Chronic Pain - APAP 1000mg Q6 - start oxycodone 5-10 Q4 prn - dilaudid 0.02-0.05 IV prn # L1 compression fracture # Hx of L2 pathologic fracture s/p kyphoplasty 08/2019 Hx of L2 pathologic fracture s/p kyphoplasty in 08/2019. Presented to ED this time with CT a/p showing incidental L1 compression fracture, no clearly pathologic etiology. -Neurosurgery spine consulted, appreciate recs: -non-op -pain control -Neurosurgery signed off; f/u 6 weeks (they will arrange) # Stage IV L RCC Has L RCC with mets to lung/liver/bone and pathologic L2 fracture s/p kyphoplasty in 9. On nivolumab and ipilimumab. -hold nivo/ipi -Onc following # Thyrotoxicosis Presented with TSH 6.77 and fT4 4.2, and presentation concerning for hyperthyroidism due to checkpoint inhibitor therapy. Was started on hydrocortisone 100mg q8h which was being weane d, and was on PTU and cholestyramine (now off) with fT4 down to 2.7. -restart hydrocortisone 100mg IV q8h given new/worse shock in setting of wean -Endo following, appreciate recs: -f/u fT4 in AM -f/u renin/sophia levels per above # GERD (chronic) -omeprazole bid # HLD (chronic) -atorva Present on admission Acute systolic heart failure Cardiogenic shock Acute respiratory failure Acute non-oliguric kidney injury Acute hyperkalemia Massive pulmonary embolism Hyperthyroidism Renal vein thrombosis Renal cell carcinoma Non-anion gap metabolic acidosis L1 compression fracture Consultants: IR, Endo, Onc, Cards Feeding: Low K diet Analgesia: Acetaminophen and Oxycodone and hydromorphone Sedation: None (RASS Goal 0 (alert and calm)) Thromboprophylaxis: Heparin IV Head of Bed: Ad radha Ulcer Prophylaxis: PPI Glycemic control: BS controlled < 180, insulin not indicated Mobility Goal: Bed rest Lines/Tubes/Drains/Airways: L IJ CVC and Arterial Line, PIV x2 Code Status Code Status Full Code Surrogate Decision Maker Documentation: Surrogate Decision Maker Primary Surrogate Decision Maker Amada Manzanares sister [phone] Secondary Surrogate Decision Maker William jay This patient was staffed with Dr. Dinh, attending physician. Megha Hahn MD 11/24/2019, 8:09 AM Template created by [employer] 2017 Tg Hays MD - 020 10:44 PM PDTCT imaging discussed with interventional radiology attending. After discuss ion the plan is to consider systemic thrombolysis in view of the hyperkalemia, tachycardia a nd increased risk of arrhythmia with a catheter in place. Risks benefits alternatives were discussed with the patient and her sister. They are thinking about the final decision but i s leaning towards systemic thrombolyzes. TG URIOSTEGUI MD ([facility]) [facility] Crit [facility] | [facility] [address] | Mailcode: [id number] | [facility] [id number] | Time spent in critical care 20 min 10: 47 PM PDTBoscanShahid smallwood MD - 11/23/2019 10:31 PM PDTCalled to evaluate the CTA PE an d CT abdomen. Findings show extensive clot/thrombus burden in the proximal bilateral pulmonary arteries. Further there are CT signs of RV strain, with dilated RV and straightening of the interventr icular septum. CT of the abdomen does demonstrate left renal vein tumor/thrombus. However the IVC is not i nvolved. In light of these finds and in the setting of JONO and hyperkalemia, systemic thrombolysis i s favored as the preferred next step in management if there is a desire for aggressive treat ment. Catheter directed therapy is favored less at this time given. This plan was discussed and formulated with Dr. Michaels and communicated to the MICU team and to Dr. Uriostegui. Tg Hays MD - 11/23/2019 9:39 PM PDTFormatting of this note might be different from the orig inal. MICU ATTENDING PROGRESS NOTE Author: TG URIOSTEGUI MD Attending Physician: Tg Uriostegui MD Patients Hospital Problem List: Active Hospital Problems 1) *Hypotension, unspecified hypotension type 2) Renal cell adenocarcinoma (HCC) 3) Hyperkalemia 4) JONO (acute kidney injury) (HCC) 5) Hypotension 6) Closed compression fracture of body of L1 vertebra (HCC) 7) Hypothyroidism, unspecified type 8) Renal cell carcinoma, unspecified laterality (HCC) 9) Hyperthyroidism Assessment and Plan: I personally interviewed the patient, performed the gonsales elements of the physical examinatio n, and personally formulated the assessment and plan with the MICU resident and the team. Se mireles resident note for details. Hospital day # 2. Hank is a 54 y.o. female with prior history of Hodgkin's lymphoma in 2003 who has stage I V advanced renal cell carcinoma with multiple metastases including lung, liver as well as jana mbar spine. Patient had a recent kyphoplasty and was admitted with hypotension and JONO in t he setting of thyrotoxicosis. Patient was on the medicine floor and had a code called for a cute onset of lower extremity pain, swelling shortness of breath, tachycardia and hypotensio n and was brought to the ICU. She had a high PESI score and was started on vasopressor supp ort and stabilized to get a CT chest PE protocol. CT of the head was also ordered to evalua te for new metastases, MRI in August 2019 was negative for intracranial metastases. Neuro: Alert awake no focal deficits Resp: High risk for pulmonary embolism/tumor embolism. Patient has new requirement for oxygen . CVS: Hemodynamically unstable requiring vasopressor support and fluid resuscitation. Echocar diography performed by veterinary virus serum inspector showed reduced RV function and normal LV function w ith dilated IVC. Possible new right bundle branch block. ID: No active issues GI / Hepatology/ Nutrition: We will keep n.p.o. in the setting of hemodynamic instability requiring vasopressors Renal / Electrolytes: Acute kidney injury in the setting of renal cell carcinoma with hyperkalemia Patient at risk for worsening of JONO from IV contrast however due to lack of good choice s for management is being considered for IV contrast. Hyperkalemia --> Medically manage Hem-Onc: Patient's clinical picture suggestive of either tumor embolism or pulmonary embolism in the setting of deep venous thrombosis either in the lower extremity or IVC related to renal cell carcinoma. Patient started on empiric anticoagulation with heparin, in discussion with intervention al radiology not a candidate for systemic thrombolysis due to tumor burden and risk of bleed ing. Patient being sent for CT PE protocol to assess for possibility of catheter directed t hrombolysis. Risk of worsening of JONO discussed with patient and her sister in detail. 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 Code status/Family: Currently full code --> I spoke with sister and explained to her that patient is critica lly ill, at high risk of mortality and has very advanced renal cell carcinoma. She is aware and is waiting for her son to arrive who is driving from approximately 5 hours away. Addendum: CT PE protocol shows bilateral pulmonary emboli. I discussed treatment options extensivel y with patient and her sister we discussed the differences between catheter directed thrombo lysis and continuing heparin as well as the risks of systemic thrombolysis. Patient underst ands risk and benefits. Interventional radiology has been paged. TG URIOSTEGUI MD [facility] [address] [place] [address] I spent 95 min in critical care. Including time spent at [facility], in discussion with int erventional radiology and patient's family as well as directly taking care of the patient. Current Meds: Current Facility-Administered Medications Medication Dose Route Frequency acetaminophen (TYLENOL) tablet 650 mg 650 mg oral Q4H PRN alteplase (ACTIVASE) atorvastatin (LIPITOR) tablet 20 mg 20 mg oral QPM bisacodyL (DULCOLAX) suppository 10 mg 10 mg rectal DAILY PRN calcium chloride 100 mg/mL (10 %) injection syringe EPINEPHrine injection heparin bolus from continuous infusion 3,400 Units 40 Units/kg intravenous NEEDED ( BOLUS) heparin bolus from continuous infusion 6,800 Units 80 Units/kg intravenous NEEDED ( BOLUS) heparin in D5W 25,000 Units/250 mL (100 Units/mL) IV infusion (RTU) 1-2,500 Units/hr i ntravenous CONTINUOUS [START ON 11/24/2019] hydrocortisone sodium succinate (PF) (SOLU-CORTEF) injection 100 m g 100 mg intravenous Q8H HYDROmorphone (DILAUDID) injection 0.2-0.5 mg 0.2-0.5 mg intravenous Q2H PRN lidocaine (LIDODERM) 5 % patch 1 patch 1 patch transdermal Q24H melatonin tablet 3 mg 3 mg oral HS PRN menthol-zinc oxide (CALAZIME) topical paste 0.2%-16.5% topical QID PRN norepinephrine (LEVOPHED) 8mg/250 mL (0.032 mg/mL) IV infusion (ADC) 0.02-0.2 mcg/kg/m in intravenous CONTINUOUS omeprazole (PRILOSEC) capsule 20 mg 20 mg oral BID ondansetron (ZOFRAN) injection 4 mg 4 mg intravenous Q12H PRN oxyCODONE (immediate release) (ROXICODONE) tablet 5 mg 5 mg oral Q4H PRN polyethylene glycol (MIRALAX) packet 34 g 34 g oral TID PRN senna-docusate (SENOKOT S) 8.6-50 mg 1 tablet 1 tablet oral BID vasopressin 20 Units/100 mL (0.2 Unit/mL) in NS IV infusion (RTU) 0.03 Units/min intra venous CONTINUOUS Physical Exam: Vital Signs: Cuff BP 93/76 (11/23/192099) | BP Min: 64/54 Max: 110/62 Cuff MAP 83 mmHg (11/23/192099) | BP Mean Min: 58 mmHg Max: 84 mmHg Art Line BP 88/64 (11/23/192099) | ART Line BP Min: 63/43 Max: 108/73 Art Line MAP 72 mmHg (11/23/192099) | ART Line BP Mean Min: 50 mmHg Max: 85 mmHg HR 129 (11/23/192099) | Pulse Min: 93 Max: 142 | Cardiac Rhythm: Tachycardia (11/23/19 1 804) Temp 36 C (96.8 F) (11/23/191821) | Temp Min: 36 C (96.8 F) Max: 36.7 C (98.1 F) RR (!) 31 (11/23/192099) | Resp Min: 16 Max: 31 SpO2 100 % (11/23/192099) | SpO2 Min: 93 % Max: 100 % O2 Device Nasal cannula (11/23/192099) | Cam/RASS Most Recent Value RASS Scale 0 CPOT Intake/Output Summary (Last 24 hours) at 11/23/20192138 Last data filed at 11/23/2019 182 Gross per 24 hour Intake 1590 ml Output 1475 ml Net 115 ml BMI: 34.3 Weights 85 kg (187 lb 6.3 oz) (11/21/192124) 80.7 kg (178 lb) (11/21/19 1220) Admit Wt: 80.9 kg (178 lb 6.4 oz) Mechanical Ventilation [place] body weight: 50.1 kg (110 lb 7.2 oz) Adjusted ideal body weight: 64.1 kg (141 lb 3.6 oz) , -- SpO2: 100 % (11/23/192099) Last PaO2/FiO2 ratio: Plateau: Driving Pressure: PAO2/FIO2 RATIO Date/Time Value Ref Range Status 08/26/2019 10:20 AM 419 >300 mmHg Final Lab Results Component Value Date PH 7.33 (L) 08/26/2019 PCO2 34 08/26/2019 PO2 88 08/26/2019 HCO3 18 (L) 08/26/2019 [id number] 97.2 08/26/2019 FIO2 0.21 08/26/2019 [id number] 419 08/26/2019 Lab Results Component Value Date VBGEXCESS -5.9 (L) 08/26/2019 VBGPH 7.29 (L) 08/26/2019 VBGPCO2 42 08/26/2019 VBGPO2 35 08/26/2019 VBGHCO3 20 (L) 08/26/2019 Up to Last 5 ABGs in 72 hours: No results for input(s): PH, PCO2, PO2, HCO3, [id number], Y1OBVPFV, M4SIIADJX, FIO2 in the l ast 72 hours. Lab Results Component Value Date PH 7.33 (L) 08/26/2019 PCO2 34 08/26/2019 PO2 88 08/26/2019 HCO3 18 (L) 08/26/2019 Z2OGPMAF 97.2 08/26/2019 FIO2 0.21 08/26/2019 [id number] 419 08/26/2019 Recent Labs 11/21/19 1909 11/22/19 0414 11/23/19 0446 11/23/19 1601 11/23/19 1823 NA 136 134* < > 136 137 135* K 5.0 5.8* < > 5.6* 5.4* 5.9* CL 110* 111* < > 114* 114* 113* BICARB 16* 11* < > 14* 16* 13* BUN 78* 77* < > 64* 65* 69* CR 2.92* 3.13* < > 2.59* 2.78* 2.76* GLU 72 88 < > 104* 105* 130* CA 8.1* 8.4* < > 8.5* 8.6 8.4* AST 44* 46* -- -- -- 63* ALT 19 19 -- -- -- 29 AP 91 93 -- -- -- 100* TBILI 0.5 0.5 -- -- -- 0.5 TP 5.0* 5.2* -- -- -- 5.7* ALB 1.5* 1.6* -- -- -- 1.8* ANIONGAP 10 12* < > 8 7 9 ANIONALBCOR 16* 18* -- -- -- 14* < > = values in this interval not displayed. CBC with diff last 72 hours (or 3 results) - Refreshable Recent Labs 11/21/19 0850 11/22/19 0414 11/23/19 0446 11/23/19 1825 WBC 5.64 3.36* 4.86 8.41 HB 12.6 10.9* 10.1* 11.5* HCT 39.4 35.2* 31.2* 35.3* PLT 221 202 187 262 NEUTROPERC 71.8* 78.2* 82.7* -- LYMPHPERC 13.5* 16.1* 10.3* -- MONOPERC 8.2 4.2 6.4 -- BASOPERC 1.4 0.3 0.2 -- EOSPERC 4.6* 0.6* 0.0* -- Lab Results Component Value Date APTT 25.2 (L) 11/23/2019 FIBRINOGEN 488 (H) 08/25/2019 Lab Results Component Value Date [id number] 5.6 08/26/2019 Lab Results Component Value Date URICACID 3.5 09/01/2019 Lab Results Component Value Date FREET4 2.7 11/23/2019 TSH 3.44 11/23/2019 TPOAB 0.3 11/21/2019 [id number] 86 11/21/2019 Lab Results Component Value Date IRON 66 08/30/2019 IRONBINDCAP 242 08/30/2019 SATTRANSFERR 27 08/30/2019 FERRITIN 567 (H) 08/30/2019 No results found for: CK Lab Results Component Value Date TROPONIN <0.02 11/23/2019 TROPONIN 0.08 11/21/2019 TROPONIN 0.05 11/21/2019 TROPONIN <0.02 10/31/2019 TROPONIN <0.02 08/26/2019 Lab Results Component Value Date NTPROBNP 9,366 11/23/2019 NTPROBNP 3,981 11/21/2019 No results found for: LIPASE No results found for: AMYLASEPLAS No results found for: VANCOTROUGH Lab Results Component Value Date LACTICACID 1.1 11/21/2019 LACTICACID 0.9 08/25/2019 LACTICACID 1.2 08/25/2019 LACTICACID 0.9 08/25/2019 Lab Results Component Value Date MG 1.7 08/25/2019 Lab Results Component Value Date PO4 2.5 09/01/2019 PO4 2.8 08/31/2019 PO4 2.2 (L) 08/30/2019 PO4 2.2 (L) 08/29/2019 PO4 3.2 08/27/2019 Lab Results Component Value Date CR 2.76 (H) 11/23/2019 CR 2.78 (H) 11/23/2019 CR 2.59 (H) 11/23/2019 CR 2.76 (H) 11/23/2019 CR 2.89 (H) 11/22/2019 Lab Results Component Value Date URICACID 3.5 09/01/2019 URICACID 3.0 08/31/2019 URICACID 5.5 08/30/2019 URICACID 9.7 08/29/2019 URICACID 10.5 08/28/2019 URICACID 11.2 08/24/2019 No results found for: [id number] Lab Results Component Value Date INRPT 1.11 11/23/2019 Lab Results Lab Test Name Results Date/Time QTCB 457 11/23/19 QTCB 431 11/22/19 QTCB 425 11/21/19 QTCB 447 11/21/19 QTCB 429 08/25/19 QTCB 420 08/25/19 QTCB 436 08/24/19 Results for orders placed or performed during the hospital encounter of 11/21/19 12 LEAD ECG Result Value Ref Range VENTRICULAR RATE 106 bpm ATRIAL RATE 114 ms P-R INTERVAL 107 ms P AXIS -89 deg QRS DURATION 154 ms QT 344 ms QTC-BAZETT 457 ms R AXIS 100 deg T AXIS 4 deg ECG IMPRESSION Atrial fibrillation ECG IMPRESSION Right bundle branch block ECG IMPRESSION Inferior infarct, old- ABNORMAL ECG - ECG IMPRESSION Electronically signed by: JULIO LONG 11-23-2019 18:46:14 Lab Results Component Value Date RVSP 62 11/22/2019 RVSP 76 08/26/2019 Lab Results Lab Test Name Value Date URINECOLOR Yellow 11/21/2019 URAPPEARANCE Sl.Cloudy 11/21/2019 Lab Results Lab Test Name Value Date URINEAMPPHOS None 11/21/2019 URINEBACTERI None 11/21/2019 URINECAOX None 11/21/2019 URINECAST 0 11/21/2019 URINEGRANCAS 0 11/21/2019 URINEHYALINE 0 11/21/2019 URINEMUCOUS None 11/21/2019 URINEEPITH None 11/21/2019 URINEREDCELL >1,000 11/21/2019 URINESQEPI None 11/21/2019 URINEPO4 None 11/21/2019 URINEWBC 2 11/21/2019 URINEYEAST None 11/21/2019 Last Drug Screen: No results found for: AMPHETAMINES, METHAMPHETAM, BARBITURATE, BENZO, CA NNABIS, COCAINE, ETOH, ETHANOL, OPIATE, ORGBASES, OXYCODONE, METHADONE MELD-Na score: 19 at 11/23/2019 6:23 PM MELD score: 17 at 11/23/2019 6:23 PM Calculated from: Serum Creatinine: 2.76 mg/dL at 11/23/2019 6:23 PM Serum Sodium: 135 mmol/L at 11/23/2019 6:23 PM Total Bilirubin: 0.5 mg/dL (Rounded to 1 mg/dL) at 11/23/2019 6:23 PM INR(ratio): 1.11 INR at 11/23/2019 6:23 PM Age: 54 years Darlene Ambrosio MD - 8:24 PM PDTCalled by the primary team regarding new onset chest pressure and SOB to perform STAT bedside echo. Bedside TTE showed normal LV function with reduced RV function and increased size. IVC dila juice and not compressible with sniffing. EKG showed RBBB. Trop negative. No evidence of atherosclerotic plaque rupture Impression: RV overload Discussed with Dr Barrientos who agrees with the findings. Darlene Espitia Furnace Mechanic Helper Associated attestation - Sina Barrientos MD - 11/24/2019 1:15 PM PDTI am familiar with thi s patient's medical history and the current active problems as discussed with Dr. Espitia. W e reviewed the assessment and plan and I agree with the plan as outlined. Sina Barrientos MD Cardiology Tg Uriostegui MD - 11/23/2019 6:42 PM PDTFormatting of this note might be different from th e original. Pulmonary Embolism Response Team (PERT) Consulting Attendings: (Interventional Radiology) Tg Uriostegui (ICU) Hemodynamic parameters: Hemodynamic instability (SBP < 90 mmHg for ?15 minutes): yes RV/LV ratio ? 0.[address]: yes RV dysfunction on echo: Yes RV dysfunction based on biomarkers (BNP/proBNP, troponin): yes Lab Results Component Value Date NTPROBNP 9,366 11/23/2019 NTPROBNP 3,981 11/21/20192013 ESC PE Classification Category (low-risk, intermediate-low risk, intermediate-high ris k, high-risk): High Risk Definitions: "High-risk": Hemodynamic instability "Intermediate-high risk": Both serum biomarker (Trop or pro-BNP) AND Imaging (echo or CT) e vidence of right heart strain "Intermediate-low risk": Either serum biomarker (Trop or pro-BNP) OR Imaging (echo or CT) e vidence of right heart strain (but not both) "Low-risk": Hemodynamic stability and no evidence of right heart strain Contraindication to thrombolytic therapy: no but marked tumor burden increasing risk for th rombolysis. Previous treatments: Heparin Pulmonary Embolism Severity Index (PESI) Score (use vitals at time of initial presentation for medical care) Age (1 point per year): 54 y.o. Sex (+10 for male): female History of Cancer (+30): yes History of Heart Failure (+10): no History of Chronic Lung Disease (+10): no Heart rate ? 110 bpm (+20): yes Systolic BP < 100 mHg (+30): yes Respiratory Rate ? 30 (+20): no Temperature < 36C (+20): no Altered mental status (disorientation, lethargy, stupor, or coma (+60): no O2 saturation < 90% (+20): yes PESI Score: 156 PESI Class: Score Class Risk 30 day Mortality 0-65 I 0-1.6% 66-85 II 1.7-3.5% 86-105 III 3.2-7.1% 106-125 IV 4.0-11.4% ?125 V 10-24.5% Assessement: 54 y.o. female with probable acute pulmonary embolism. Based on the patient's PESI score, the expected 30 day risk mortality is 10-24%. Treatment options include systemic anticoagulation. Based on the patient's pulmonary embolism classification and patient speci fic risk profile, the recommended treatment after multi-disciplinary discussion is to procee d with CT chest PE protocol to determine if patient would be a candidate for catheter direct ed thrombolysis. The risks and benefits of this treatment plan were discussed with the shiv alvares. Potential risks include worsening JONO as well as deterioration of status in the CT scan. After discussion of the risks and benefits, the patient expressed understanding and was in agreement with the proposed plan. Plan: I spent over 50% of this 35 minute visit counseling the patient regarding treatment options and recommendations. [facility] Database Repository: IRB [id number] No Known Allergies Current Facility-Administered Medications Medication Dose Route Frequency acetaminophen (TYLENOL) tablet 650 mg 650 mg oral Q6H acetaminophen (TYLENOL) tablet 650 mg 650 mg oral Q4H PRN alteplase (ACTIVASE) atorvastatin (LIPITOR) tablet 20 mg 20 mg oral QPM bisacodyL (DULCOLAX) suppository 10 mg 10 mg rectal DAILY PRN heparin bolus from continuous infusion 3,400 Units 40 Units/kg intravenous NEEDED ( BOLUS) heparin bolus from continuous infusion 6,800 Units 80 Units/kg intravenous NEEDED ( BOLUS) heparin in D5W 25,000 Units/250 mL (100 Units/mL) IV infusion (RTU) 1-2,500 Units/hr i ntravenous CONTINUOUS hydrocortisone sodium succinate (PF) (SOLU-CORTEF) injection 50 mg 50 mg intravenous Q 12H (Scheduled) lidocaine (LIDODERM) 5 % patch 1 patch 1 patch transdermal Q24H melatonin tablet 3 mg 3 mg oral HS PRN menthol-zinc oxide (CALAZIME) topical paste 0.2%-16.5% topical QID PRN norepinephrine (LEVOPHED) 8mg/250 mL (0.032 mg/mL) IV infusion (ADC) 0.02-0.2 mcg/kg/m in intravenous CONTINUOUS omeprazole (PRILOSEC) capsule 20 mg 20 mg oral BID ondansetron (ZOFRAN) injection 4 mg 4 mg intravenous Q12H PRN oxyCODONE (immediate release) (ROXICODONE) tablet 5 mg 5 mg oral Q4H PRN polyethylene glycol (MIRALAX) packet 34 g 34 g oral TID PRN senna-docusate (SENOKOT S) 8.6-50 mg 1 tablet 1 tablet oral BID Past Surgical History Procedure Laterality Date C section 1988, 2000 Knee surgery Left 1981 Mediport insertion placed in left chest site in 2001 w/ removal in 2002 Past Medical History: Diagnosis Date Hodgkin's disease (HCC) 2002 CHOPP and radiation therapy Hypercalcemia of malignancy Hypertension Hypothyroidism Hypothyroidism Pathologic compression fracture of lumbar vertebra, initial encounter (HCC) Renal cell carcinoma (HCC) clear cell carcinoma of left kidney, 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, lungs, invasion of left pulm onary artery, L2 metastatic spread BP (!) 84/65 | Pulse 120 | Temp 36 C (96.8 F) (Axillary) | Resp (!) 25 | Ht 1.575 m (5' 2") | Wt 85 kg (187 lb 6.3 oz) | SpO2 100% | BMI 34.27 kg/m | BSA 1.93 m Labs: Lab Results Component Value Date WBC 4.86 11/23/2019 HB 10.1 11/23/2019 HCT 31.2 11/23/2019 PLT 187 11/23/2019 MCV 87.4 11/23/2019 RDW 54.5 11/23/2019 Lab Results Component Value Date NA 137 11/23/2019 K 5.4 11/23/2019 CL 114 11/23/2019 BICARB 16 11/23/2019 BUN 65 11/23/2019 CR 2.78 11/23/2019 GLU 105 11/23/2019 CA 8.6 11/23/2019 AST 46 11/22/2019 ALT 19 11/22/2019 AP 93 11/22/2019 TBILI 0.5 11/22/2019 TP 5.2 11/22/2019 ALB 1.6 11/22/2019 ANIONGAP 7 11/23/2019 ANIONALBCOR 18 11/22/2019 Lab Results Component Value Date APTT 23.3 (L) 08/25/2019 FIBRINOGEN 488 (H) 08/25/2019 Lab Results Component Value Date TROPONIN 0.08 11/21/2019 Lab Results Component Value Date PH 7.33 (L) 08/26/2019 PCO2 34 08/26/2019 PO2 88 08/26/2019 HCO3 18 (L) 08/26/2019 M4VUCDSL 97.2 08/26/2019 FIO2 0.21 08/26/2019 EYS9HVR4 419 08/26/2019 Imaging: EKG findings: LBBB present: no RBBB Results for orders placed or performed during the hospital encounter of 11/21/19 12 LEAD ECG Result Value Ref Range VENTRICULAR RATE 106 bpm ATRIAL RATE 114 ms P-R INTERVAL 107 ms P AXIS -89 deg QRS DURATION 154 ms QT 344 ms QTC-BAZETT 457 ms R AXIS 100 deg T AXIS 4 deg ECG IMPRESSION Sinus or ectopic atrial tachycardia ECG IMPRESSION Atrial premature complex ECG IMPRESSION Right bundle branch block ECG IMPRESSION Inferior infarct, old ECG IMPRESSION Lateral wall also involved- ABNORMAL ECG - ECG IMPRESSION Electronically signed by: PRELIMINARY - Unconfirmed eighann Silva PA - 11/23/2019 2:34 PM PDTBrief Neurosurgery Note: Neurosurgery Service is signing off at this point in patient care. Primary team notified. No current neurosurgical indications. Recommend patient follow up in Neurosurgery clinic in 6 weeks. We will arrange appointment. Please contact our service with any questions. REDD ANGEL-Casey [facility] [address] [phone] eigh Ann Hussein DO - 11/23/2019 2:33 PM PDT General Internal Medicine 1 Progress Note 24 Hour Events: - Continued on IV steroids, but discontinued propanolol and PTU - Despite improving Cr, persistent hyperkalemia requiring shifting twice and LOKELMA once - Otherwise NAEO Current Symptoms: Patient denies new symptoms this morning, particularly lightheadedness, dizziness, shortnes s of breath, chest pain or palpitations. She hasn't been out of bed much since initial admis janice. Eating well, nausea improved. Physical Examination: Last 24 hour min/max Temp: 36.4 C (97.5 F) Temp Min: 36.4 C (97.5 F) Max: 36.7 C (98.1 F) Pulse: 114 Pulse Min: 103 Max: 118 Resp: 16 Resp Min: 16 Max: 18 BP: 110/62 BP Min: 83/53 Max: 110/62 SpO2: 98 % SpO2 Min: 95 % Max: 98 % Body mass index is 34.27 kg/m. Date 11/23/19 0700 - 11/24/19 0659 Shift 6564-9803 8826-7897 3984-3171 24 Hour Total INTAKE I.V. 10 10 Shift Total 10 10 OUTPUT Urine(mL/kg/hr) 850 850 Shift Total(mL/kg) 850(10) 850(10) Weight (kg) 85 85 85 85 General: Middle-aged female in no acute distress. Polite, cooperative and answering questio ns appropriately. HEENT: NCAT. Anicteric sclera, conjunctiva clear, EOMI. Absent proptosis. Mucous membranes moist. Neck: Supple, trachea midline. No thyromegaly or anterior neck masses appreciated. Lungs: CTAB without rhonchi, wheezing or rales. Heart: Tachycardic, but regular, without murmurs, gallops or rubs. Strong radial pulses nuha aterally. Abd: Soft, NTND abdomen. Bowel sounds normoactive. Extremities: Trace pitting edema to midshins bilaterally. Otherwise WWP. Neuro: Alert, oriented. No focal deficits appreciated. Trace tremor, RUE>LUE. Laboratory Interpretation: BMP notable for K 5.6, BUN 64, Cr 2.59 TSH 3.44, T4 2.7 WBC 4.86, Hg 10.1, PLT 187 Pending: aldosterone, renin, TSH immunoglobulin Imaging Interpretation: No new imaging results in past 24 hours. Assessment and Plan 54 yo F with h/o Hodgkin's lymphoma s/p CHOPP/RT in 2002 c/b hypothyroidism and stage IV RC C c/b L2 pathologic Fx s/p kyphoplasty who was admitted for hypotension (80/30-50 mmHg) and JONO. # Thyrotoxicosis, resolving Thyrotoxicosis with both elevated TSH and T4, both of which are now downtrending following treatment per Endocrinology. Most likely related to immunotherapy. - Endocrinology following, appreciate recommendations * Continue 50 mg IV hydrocortisone today; if stable BP throughout evening, transition to 2 0 mg PO hydrocortisone qDAY * Discontinue cholestyramine * Will have outpatient Endocrinology followup and labs drawn next week; outpatient labs sh ould be drawn prior to taking AM steroid dose - HOLD levothyroxine; will likely not resume until outpatient Endocrinology followup - Followup TSH Ig - Trend T4 # Hyperkalemia DDx includes JONO, hyperkalemia of malignancy in s/o tumor burden and hyperaldosteronism. On chart review, seems hyperkalemia persisted even with kidney function closer to baseline. - Trend BMP, at least BID, with plans to shift and LOKELMA dosing for K >6.0 or K >5.5 with EKG changes # Hypotension, improving Concern for hypoaldosteronism, especially with concurrent hyperkalemia (discussed further b elow) and metabolic acidosis. Considered also dehydration, infection, cardiomyopathy or adre nal insufficiency, though each less likely without fever or leukocytosis, normal TTE and nor mal cortisol with previous negative ACTH stimulation testing. If truly hypoaldosteronism, co uld see improvement given large dose of hydrocortisone having some mineralocorticoid effect. - Followup aldosterone, renin # JONO on CKD IIIb # Proteinuria Cr 3.2, up from baseline 1.3-1.5. FENa = 3.2%, suggestive of intrinsic etiology. DDx includ es ATN secondary to prolonged hypotension or nephritis in s/o immunotherapy. Wonder also abo ut contribution from obstruction or destruction related to RCC tumor burden. Now improving s /p 3L IVF and improved blood pressure. - Trend BMP # Stage IV RCC c/b metastasis to lung, bone and liver # L1 vertebral body compression Fx # L2 Fx s/p kyphoplasty (08/2019) Outpatient Oncologist: Dr. Ortiz. Had planned to receive cycle 4/4 ipilimumab and nivolumab on 11/20, but was referred to ED after finding of persistent, asymptomatic hypotension with M AP <60. Found to have new L1 vertebral body compression fracture on CT C/A/P; evaluated by N SGY in ED, who felt there was no acute indication for intervention in abscess of neurologic deficits. - NSGY following, appreciate recommendations * NSGY will arrange followup in 6 weeks, either in-person or phone visit - Pain management includes APAP, lidocaine patch(es) and oxycodone PRN -- Diet: Regular diet -- Analgesia: APAP, llidocaine patch, oxycodone PRN -- DVT prophylaxis: Heparin BID -- Lines/catheters: PIVX1 -- PT/OT/STONE PAVER: N/A Disposition: Pending clinical course; if able to maintain blood pressures through evening a nd tomorrow afternoon, with improving thyroid serologies, can discharge to home as early as tomorrow afternoon. CODE: Full code SDM(s): Amada Manzanares (Sister) -- [phone] Leigh Ann Hussein, DO PGY-2 | Internal Medicine [id number] Associated attestation - Jose Luis Segura MD - 11/24/2019 11:42 AM PDTGeneral Medicine Attending Progress Note Author: Jose Luis Segura MD Hospital Day # 3 PCP: Lissette Milner PA-C I personally interviewed the patient, performed the gonsales elements of the physical examinatio n, and personally formulated the assessment and plan with Dr Hussein. Please see progress note for additional details; notable exceptions as written below. ROS as per GM note, all ot hers negative. Problem List Patients Hospital Problem List: Active Hospital Problems 1) *Hypotension, unspecified hypotension type 2) Renal cell adenocarcinoma (HCC) 3) Hyperkalemia 4) JONO (acute kidney injury) (HCC) 5) Hypotension 6) Closed compression fracture of body of L1 vertebra (HCC) 7) Hypothyroidism, unspecified type 8) Renal cell carcinoma, unspecified laterality (HCC) 9) Hyperthyroidism Impression: 54 year old female with a history of Hodgkins lymphoma (2002) c/b hypothyroidism on levothy roxine, stage IV RCC with osseous mets on nivolumab and ipilimumab, admitted from clinic for evaluation of hypotension, hyperkalemia and worsening JONO. On exam in the AM, patient doing well. Ambulated without lightheadedness, dizziness, SOB o r CP. Hyp[otension resoved with BP low 100s. TSH and free T4 falling as expected with fallon tment. However, the patient developed sudden onset SOB, with tachycardia and hypotension (s ystolic 70s-80s). EKG revealed new RBBB. Large PE was suspected, and patient was transferr ed to the MICU for further care. Patient/Family Goals & Expectations: Above problems discussed with the patient who understands and is agreeable with our plans. Jose Luis Segura MD [facility] Medicine Teaching Attending I spent 40 minutes in the care of this patient, >50% engaged in bedside counseling or coord ination of care with neurosurgery and endocrinology. Aga Palacios MD - 11/22/2019 1:24 PM PDT Internal Medicine Progress Note Hank Moncada Agapito 1965 24 Hour Events: Admitted for hypotension S/p 2L LR K 5.8 --> calcium gluconate and insulin/glucose Treating for thyrotoxicosis - hydrocortisone, propranolol, PTU, cholestyramine Subjective Feeling well this morning. Has had some change in taste of food since immunotherapy initiat ion, making her appetite less than previous. However, over the past week she has eaten john paul r than she did historically. She endorses appropriate water intake with 3-4 bottles per day. As of yesterday, her urine as much more concentrated. Denies orthopnea, PND. Some LE swelli ng at baseline. She does not take her blood pressure at home, but is never dizzy/lightheaded , no orthostatic symptoms. She endorses some night leg cramps as of lately which she hasn't had previously. But denies abdominal pain, constipation/diarrhea. Physical Examination: Last 24 hour min/max Temp: 36.6 C (97.9 F) Temp Min: 36.3 C (97.3 F) Max: 36.7 C (98.1 F) Pulse: 107 Pulse Min: 102 Max: 119 Resp: 16 Resp Min: 16 Max: 18 BP: 93/51 BP Min: 76/61 Max: 146/99 SpO2: 97 % SpO2 Min: 97 % Max: 100 % Body mass index is 34.27 kg/m. Intake/Output 11/19 0701 - 11/20 0700 11/20 0701 - 11/21 0700 11/21 07 - 11/22 0700 P.O. 275 50 I.V. 150 10 IV Piggyback 2059 Total Intake 2485 60 Urine (mL/kg/hr) 1000 500 (0.9) Total Output(mL/kg) 1000 (11.8) 500 (5.9) Net +1485 -440 General Appearance: Appears stated age, in NAD. HEENT: EOMI. PERRLA. Sclera anicteric. Neck: Supple, no palpable masses. JVP to mid neck at 45 degrees. Respiratory: CTAB, no wheezes/crackles Cardiovascular: tachycardic, no m/r/g appreciated Abdomen: soft, nontender, not distended. Bowel sounds normoactive Extremities: 1+ LE edema. Grossly intact ROM. Distal pulses 2+ Skin: No visible rashes/skin lesions Laboratory Interpretation: Chemistries: Last 72 Hours (or 3 results) - Refreshable Recent Labs 11/21/19 1909 11/22/19 0414 11/22/19 0719 11/22/19 0736 11/22/19 1042 NA 136 134* -- -- 136 K 5.0 5.8* -- -- 5.6* CL 110* 111* -- -- 113* BICARB 16* 11* -- -- 13* BUN 78* 77* -- -- 76* EGFRAFRICAN 20* 19* -- -- 20* CR 2.92* 3.13* -- -- 2.92* GLU 72 88 91 81 108* CA 8.1* 8.4* -- -- 8.4* CBC with diff last 72 hours (or 3 results) - Refreshable Recent Labs 11/21/19 0850 11/22/19 0414 WBC 5.64 3.36* HB 12.6 10.9* HCT 39.4 35.2* PLT 221 202 NEUTROPERC 71.8* 78.2* LYMPHPERC 13.5* 16.1* MONOPERC 8.2 4.2 BASOPERC 1.4 0.3 EOSPERC 4.6* 0.6* Total cortisol - 37.4 TSH 6.77 --> 3.26 Free T4 4.2 --> 3.3 Total T3 - 86 Imaging Interpretation: Chest xray 11/20 FINDINGS: Cardiomediastinal silhouette is unchanged. There is extensive calcified mediastinal lymph n odes related to treatment for Hodgkin's lymphoma and prior radiation treatment. No new focal consolidation. Trace bibasilar atelectasis. There is no pneumothorax, pleural effusion, or pulmonary edema. Osseous structures are intact. IMPRESSION: Trace bibasilar basilar atelectasis. CT chest/abdomen/pelvis 11/20 IMPRESSION: 1. Since 08/23/19, stable large infiltrative left renal cell carcinoma. Extent of renal vei n thrombus cannot be determined without IV contrast but appear similar. Extensive surroundin g venous collaterals present. 2. Stable retroperitoneal foster metastases. Liver metastases are poorly visualized without contrast but are at least stable to minimally increased.. 3. New vertebral body L1 compression deformity. Cannot exclude underlying lesion, though no ne definitively visualized. Further compression of L2 pathologic fracture post vertebroplast y. 4. Stable pulmonary nodules. Stable bilateral lower lobe groundglass opacities which may be inflammatory as opposed to infectious given lack of change. Assessment and Plan: Ms. Altman is a 54yoF with Hx of Hodgkin's lymphoma s/p CHOPP/RT in 2002 c/b hypothyroidism o n synthroid and stage IV RCC c/b L2 pathologic fracture s/p kyphoplasty 08/2019 who was refe rred from infusion clinic to ED on 11/20 for asymptomatic hypotension and persistently hypot ensive since admission with new JONO. #Asymptomatic hypotension Historically has been hospitalized for asymptomatic hypotension with endocrine, cards christine p. At this time low suspicion for infection or concern for sepsis. Consideration for immunot herapy induced cardiomyopathy causing impaired forward flow, however echo today without evid ence of heart failure despite being slightly hypervolemic on exam. Given cortisol of 37, unl ikely to be adrenal insufficiency, previous stim test unremarkable. With hyperkalemia, metab olic acidosis, hypotension - can consider hypoaldosteronism. For now blood pressure has seem ed to stabilized at about 90s/50s. If truly hypoaldosteronism, could see improvement given l arge dose of hydrocortisone having some mineralocorticoid effect. - 8am aldosterone, renin - IVF prn, call for BP <90/50. 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 As outpatient, taking 17 5 mcg, increased from 150 mcg middle of Feburary in the setting of asymptomatic TSH elevatio n. Upon presentation last night, TSH and T4 elevated, slowly down-trending. Consistent with a destructive process per endocrinology. S/p 1 dose PTU, but no longer helpful in a destruct annalee case. - daily TSH, T4 - f/u TPO antibodies - HOLD levothyroxine - hydrocortisone decrease to 50mg q12hrs for 11/22 - cholestyramine 4g once daily #JONO on CKD IIIb #Hematuria #Proteinuria FeNa 3.2% suggesting intrinsic disease. Could be nephritis 2/2 immunotherapy. Could also be a component of prolonged asymptomatic hypotension leading to ATN. However, proteinuria and hematuria date back to 08/2019. Could also just be progression of her RCC. Given baseline cr eatinine 3/2 of 1.59, unlikely to be such rapid progression of her malignancy as the main co mponent. If related to immunotherapy, would expect resolution further from the insulin. - daily bmp #Hyperkalemia Differential including hyperK of malignancy d/t tumor burden, JONO or hypoaldosteronism. Has historically elevated potassium ~5-5.5 even with being at baseline creatinine making attrib ution to JONO less justified. Unclear whether RCC and current immunotherapy can result in hyp erkalemia, defer to oncology. Work up for hypoaldosteronism pending. S/p calcium gluconate, insulin, glucose this AM. - recheck BMP @1500, shift prn #Stage IV RCC w/ mets to lung, bone, liver #L1 vertebral body compression fracture #L2 fracture s/p kyphoplasty Followed by Dr. Ortiz. Was to receive cycle 4/4 ipi/nivo 11/20, infusion held in setting of hypotension. Evaluated in ED by neurosurgery for new compression fracture, currently no mac cation for surgery. Will continue with pain control. - Oxycodone 5mg q4hrs PRN - Acetaminophen 1000mg TID PRN - Lidocaine patch q24hrs Diet: regular Analgesia:oxy Sleep: melatonin GI: omeprazole DVT: heparin Lines:PIV Code status: Code Status: FULL SDM/DPOA: Surrogate Decision Maker Primary Surrogate Decision Maker Amada Manzanares sister [phone] Secondary Surrogate Decision Maker William jay Disposition: Home when medically stable Pt seen and discussed with Dr. Segura and team. Odette Palacios MD Internal Medicine, PGY-1 Pager [phone] Noemi Horn - 11/22/2019 10:07 AM PDTTransthoracic echocardiogram completed. Final report to follow.Elect ronically signed by Noemi Cowan at 11/22/2019 10:07 AM PDTNoemi Cowan - 11/22/2019 8 :54 AM PDTTTE attempted, pt too nauseous, will try in PM documented in this encounter H&P Notes Paddy Cooper MD - 11/26/2019 2:22 PM PDT Post rounds addendum 11/27/2019 1:32 PM Plan will be for gentle diuresis with IV furosemide, goal neg 500. Planning to continue therapeutic Lovenox per pt preference. Will increase to 1mg/kg BID or 1.5mg/kg daily once eGFR >30. OT/PT orders placed. Will call Onc in AM. Cristopher Cooper MD Resident physician [facility] Dept [place] [phone] Internal Medicine History and Physical Attending Physician: Nikki Márquez MD Chief Complaint: hypotension, syncope, massive pulmonary embolism HPI: This is a 54 y/o F with PMH of remote Hodgkin's lymphoma s/p definitive CHOP + XRT with rep orted chronic hypothyroidism as a result of this therapy along with a more recently diagnose d renal cell carcinoma (clear cell type) of her L kidney with metastasis to her liver, bones , and lungs who initially presented to the hospital from her oncology clinic with minimally symptomatic hypotension and was found to thyrotoxicosis attributed to adverse effect of immu ne checkpoint inhibitor therapy. During the course of her inpatient admission, she experienc ed a syncopal episode and was found to have evidence of bilateral pulmonary emboli with sign ificant right sided heart strain requiring and hemodynamic instability requiring transfer to the MICU with subsequent systemic thrombolysis. As a brief aside about her past medical/oncological history, she is noted to have a remote history of Hodgkin's lymphoma (reportedly about 15 years ago) for which she was successfully treated with chemotherapy (CHOP) and XRT. Although proving definitive for her Hodgkin's dis ease, this treatment evidently rendered her chronically hypothyroid and she has required lev othyroxine supplementation since that time. More recently, she presented in 07/2019 with fla nk pain and hematuria and subsequent imaging revealed a large L sided renal lesion invading into the renal vein with large retroperitoneal lymph nodes, and liver lesions. Subsequent li brandin biopsy on 08/16/19 demonstrated metastatic renal cell carcinoma (clear cell type). [facility] er staging imaging demonstrated RML and RLL pulmonary nodules as well as an L2 pathological fracture. She subsequently had a hospitalization 08/16/19-09/01/19 for hypercalcemia of nate gnancy as well as back pain. She underwent L2 kyphoplasty and was started on pamidronate, popeye th for her fracture and for her hypercalcemia. She was noted to be hypotensive during that a dmission. TTE at that point demonstrated mildly thickened and enlarged RV with normal RV sys tolic function and was otherwise normal.She was stated on midodrine during that admission an d this was continued on discharge but this was later discontinued shortly after admission. S vikram 09/2019, she has been undergoing treatment for her RCC with nivolumab and ipilimumab - s he is s/p 3 cycles (last dose 10/31/19). With that preamble, she presented to heme/onc clinic for routine follow-up on 11/21/19 (she was due for next dose of ipilimumab/nivolumab). She got a routinely scheduled CT scan at rani t point (this demonstrated stable L renal mass, stable retroperitoneal lymph node metastases , likely stable liver metastases, stable pulmonary nodules, and a new L1 compression deformi ty) but then was noted to be hypotensive to the 60s/30s although not clearly symptomatic fro m this. She was referred to the ED for evaluation and treatment. In the ED, she was noted to be hypotensive to the 80s/50s with tachycardia to the 100s-120s. She was breathing comforta rod with saturations 100% RA. Initial labs noted: CBC with WBC 5.6, hgb 12.6, Plt 221; BMP w ith Na 130, K 5.7, Cl 103, CO2 15, BUN 87, Cr 3.2 (baseline 1.4-1.6). TSH noted 6.7 and free T4 noted 4.2 (elevated). 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 To rani t end, she had her levothyroxine stopped and she was started on IV hydrocortisone to decreas e inflammation and with concern that there may associated secondary adrenal insufficiency. S he was also given propylthiouracil and cholestyramine. Her presentation was overall felt to be most consistent with thyrotoxicosis and possible secondary adrenal insufficiency. Over e next two days she was hemodynamically stable with BP in the 100s/60s and HR in the 100s. H er free T4 downtrended. Her creatinine downtrended to the mid 2s where it stabilized. She re mained with hyperkalemia and metabolic acidosis. She overall was doing well until the PM of 11/22 at which point there was a rapid response c alled for acute onset of shortness of breath along with tachycardia (new onset afib 110s-140 s), hypotension (systolic BP 70s-80s), and RBBB. MICU team evaluated and bedside TTE demonst rated evidence of new R sided heart strain. The patient was transferred to the MICU where sh e empirically was started on a heparin gtt and required norepinephrine and vasopressin to ma intain adequate BP. Once stabilized acutely, she was taken to the scanner where a CTA demons trated extensive bilateral PE from bilateral distal main pulmonary arteries into the majorit y of bilateral lobar and segmental arteries and CT evidence of right heart strain, with stra ightening/leftward bowing of interventricular septum and reflux of contrast into the IVC. At that point, IR consult was obtained but catheter directed thrombolysis was deferred in the setting of JONO and hyperkalemia. Instead, the patient was allowed to come off of the heparin gtt and then treated with systemic tPA in the early AM of 11/23. In the PM of 11/24/19, she w as placed back onto therapeutic heparin gtt. Over the course of 11/23 her pressors were titra juice and she was able to be weaned to the point of only intermittently requiring them on 11/24 and then was off pressors entirely by the early AM of 11/26/19. She was transitioned to t herapeutic LMWH on 11/26/19. Once she was off of pressors, her steroids were initiated on a t aper with endocrinology guidance. Given evidence of R heart strain, gentle diuresis was atte mpted once she was hemodynamically stabilized (received IV furosemide 20mg IV then 40mg IV o n 11/24 and then 40mg IV 11/25). With her hemodynamic stability s/p thrombolysis for massive P E, she was determined to be stable for transfer to the general medicine floor for ongoing ma nagement and disposition. On arrival to the floor, she was noted with T 36.5, HR 100s-110s, BP 108/48, resp 18, sat 1 00 RA. The patient states that she is overall feeling better. When she first experienced the pulmonary embolism, she recalls a sensation of great pressure on her chest along with signi ficant struggle to breathe and recalls experiencing a syncopal episode. She states that sinc e receiving the tPA and the anticoauglation, the pressure on her chest is gone and she feels like she can take a nice full breath. She states that she does feel a little tired - she wa s able to mobilize to the bedside commode and into a bedside cardiac chair but did require s ome assistance to do so. She states that some of this was due to being limited by back pain (from her compression fracture). She denies dizziness or presyncope. Since being on the anti coagulant, she notes some ecchymoses at IV sites and blood draw sites but otherwise denies b leeding. She denies n/v, hematemesis. She denies diarrhea, melena, hematochezia. She has maty e leg swelling. She states that prior to her PE her left leg seemed more swollen to her and was painful - this is no longer the case currently. At baseline she can independently mobilize with a walker and is independent in her ADLs. Laura mireles lives at home with family members (brother and sister) who provide assistance (some transp ortation, cooking, etc). Past Medical History: # Hodgkin's lymphoma - s/p definitive treatment with CHOP and XRT. # renal cell carcinoma (clear cell type), stage IV with metastases to retroperitoneal lymph nodes, liver, bones, and lungs. Was undergoing treatment with ipilimumab and nivolumab, las t dosed 10/31/19, currently on hold. # hypothyroidism - longstanding reportedly as a result of prior treatment for her Hodgkin's disease. Review of Systems: ROS otherwise normal, except as per HPI. Home Medications: I have obtained and documented the prior to admission medication list and it is accurate. Prior to Admission Medications Prescriptions cholecalciferol 50,000 unit oral capsule Sig: Take 1 capsule by mouth once daily. Indications: vitamin D deficiency (high dose thera py) Patient taking differently: Take 50,000 Units by mouth every seven days. Indications: gonzales min D deficiency (high dose therapy) levothyroxine 175 mcg oral tablet Sig: Take 1 tablet by mouth before breakfast. lovastatin 20 mg oral tablet Sig: Take 20 mg by mouth once daily in the evening. Administer with evening meal. omeprazole 20 mg oral capsule,delayed release(DR/EC) Sig: Take 1 capsule by mouth two times daily. Administer 30 to 60 minutes before meals oxyCODONE (immediate release) 5 mg oral tablet Sig: Take 1 tablet by mouth every four hours as needed for breakthrough pain (1 to 2 tablet s PO every 4 hours as needed for breakthough pain). Patient taking differently: Take 15 mg by mouth every six hours as needed for breakthrough pain (1 to 2 tablets PO every 4 hours as needed for breakthough pain). Facility-Administered Medications: None Allergies I have reviewed and updated the allergy list. Allergies No Known Allergies Social History I have updated the Social Hx as appropriate. 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 Family History Problem Relation Diabetes Mother Diabetes Father Hypertension Sister Diabetes Sister Physical Exam: Last 24 hour min/max Temp: 36 C (96.8 F) Temp Min: 36 C (96.8 F) Max: 36.7 C (98.1 F) Pulse: 109 Pulse Min: 95 Max: 119 Resp: 24 Resp Min: 17 Max: 27 BP: 82/48 BP Min: 82/48 Max: 82/48 SpO2: 100 % SpO2 Min: 97 % Max: 100 % Body mass index is 34.27 kg/m. General Appearance: Comfortable, NAD HEENT: MM moist, sclerae anicteric. With patient reclined approximately 45 degrees, JVP is visible in the upper neck, a centimeter or two below the mandible. There is a dressing in pl mehnaz in the L neck, presumably from central line. Respiratory: Clear sounds bilaterally without wheezing or crackles. Cardiovascular: Mildly tachycardic. Regular rhythm. No murmurs are heard. Gastrointestinal: Abdomen is soft and nontender to palpation. Extremities: There is fairly symmetric pitting edema bilaterally. The extremities are warm and well perfused. Upper extremity pulses are intact. Skin: Warm and dry. There is areas of ecchymoses noted on upper extremities at venipuncture sites - notably on the dorsum of the L hand, on the L forearm, and on the R forearm. Neurologic: Awake, alert, oriented. No gross focal motor deficits. Psychiatric: Pleasant affect. Assessment and Plan: This is a 54 y/o F with PMH of remote Hodgkin's lymphoma s/p definitive CHOP + XRT c/b angle bender josh hypothyroidism along with a more recently diagnosed renal cell carcinoma (clear cell sania iant) of her L kidney with metastases to liver, bones, and lungs who initially presented to the hospital from her oncology clinic with asymptomatic hypotension and was found to have th yrotoxicosis attributed to adverse effect of immuen checkpoint inhibitor and whose hospital course was complicated by a massive PE requiring systemic thrombolysis. # acute massive pulmonary embolus # R sided heart strain Her extensive bilateral pulmonary emboli in the setting of hemodynamic instability (syncope , need for pressors) defines a massive PE. The risk for catheter directed therapy in the set ting of JONO (would be getting more contrast for the procedure) and hyperkalemia (catheters m echanically irritating heart could trigger arrhythmia?) was felt to be unacceptably high and the patient was instead treated with systemic thrombolysis with good effect and no complica tions. She was maintained on heparin gtt and has now been transitioned to therapeutic dosing LMWH given her underlying malignancy. While LMWH has been the tried and true therapy for ca ncer associated thrombosis, recent clinical trials comparing head to head trials of DOAC vs LMWH have demonstrated similar efficacy in prevention of recurrent VTE and similar safety ou tcomes in terms of major bleeding and clinical relevant non-major bleeding, as summarized we ll in a meta-analysis (Li A et al Thrombosis Research 2019). Although there seemed to be a t rend towards increased major bleeding in the patients treated with DOACs, a subgroup analysi s showed that this increased risk seemed to be limited to those with gastrointestinal tract malignancies. Thus, a DOAC may be a reasonable therapeutic option for this patient although her renal function may theoretically complicate therapy. This patient has clear CT and echoc ardiographic evidence of R sided heart strain along with the biochemical markers as well - a cute right sided heart dysfunction in the setting of pulmonary embolus certainly portends ri sk for higher short term mortality and can be difficult to manage. Given that the significan t underlying pathology leading to increased pulmonary vascular resistance, pulmonary hyperte nsion, and excessive RV afterload has been addressed (presumably her clot burden is markedly reduced with tPA and two days of anticoagulation), I think that the main intervention movin g forward will be careful fluid management. Err too much on the side of hypovolemia and her RVEF will be inadequate but err too much on the side of hypervolemia and one may introduce d etrimental ventricular interdependence as the interventricular septum shifts into the left v entricle. Given her elevated CVPs in the MICU and persistence of renal dysfunction (which co rrelates strongly with CVP), gentle diuresis is likely in order - perhaps to target 500cc ne t negative. Will monitor closely on telemetry. - Continue therapeutic dosing LMWH (1mg/kg/day). Consideration could be given towards DOAC therapy. - Continue on telemetry - any tachyarrhythmias (such as atrial fibrillation/flutter) should be treated aggressively. - O2 support PRN to keep saturations >92% (want no degree of hypoxemic vasoconstriction). C onsideration for ambulation trial to ensure no desaturation with activity. - Gentle diuresis - according to I/Os as documented, on track to be net negative >500cc so will hold off on further doses at this time. # JONO # hyperkalemia - resolved # non-anion gap metabolic acidosis The patient presented with a significant JONO (Cr 3.2 on a baseline of 1.4-1.6) which was pr esumably related to her significant hypotension on presentation although her creatinine was slow to improve even as her blood pressures normalized to her baseline. Her creatinine bumpe d once again on 11/23, presumably once again hemodynamically mediated in the setting of her h ypotension associated with her pulmonary embolus. Now more hemodynamically stable, her creat inine is improving. Will support her hemodynamics and try to optimize her volume status in o rder to aid renal recovery. Her hyperkalemia may be in part a consequence of her renal injur y but she has had hyperkalemia in the past with a better creatinine so not sure that this re ally explains it. Similarly, the patient NAGMA (based on delta ratio, a pure NAGMA) seems ou t of proportion to the degree of renal dysfunction. There is no history of diarrhea. One won ders about some contribution from renal tubular acidosis of some sort. Hyperkalemia and NAGM A can sometimes be associated with adrenal insufficiency, but typically this would be primar y adrenal insufficiency (where there is issues with aldosterone production) and this conditi on has been excluded in this patient based on his measured aldosterone levels. - Monitor labs. - Continue to support hemodynamics as needed. - Continue to optimize volume status - probably reasonable to target something net negative 0 to 500cc. - Avoid nephrotoxins and renally dose medications as needed. # thyrotoxicosis The patient presented with a TSH of 6.7 and a free T4 elevated to 4.2. 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 The patient got a dose of propylthiouracil and a couple of days o f cholestyramine therapy but the mainstay of therapy for her has been holding her levothyrox ine supplement and using hydrocortisone (both to reduce inflammation and further thyroid jannie truction and to cover a possible concomitant secondary adrenal insufficiency). This therapy has been successful and her T4 has been downtrending. Currently working towards tapering off of hydrocortisone with endocrinology guidance. - Hydrocortisone dosing as follows: - 11/25: hydrocortisone 40mg PO BID - 11/26: hydrocortisone 30mg PO BID - 11/27: hydrocortisone 20mg PO BID - 11/28: hydrocortisone 20mg PO daily. - If decompensation, should increase hydrocortisone to 50mg q8h. - Will need AM cortisol (prior to hydrocortisone AM dose) on 11/29. - Trend free T4 (check on day of discharge). - Will need outpatient endocrinology follow-up. # renal cell carcinoma, stage IV, with metastases with liver, bones, lungs # pathological vertebral compression fractures # malignant pain Metastatic renal cell carcinoma currently treated with ipilimumab and nivolumab although cl early treatment is currently on hold due to presumed thyroiditis related to her chemotherapy as well as her recent massive PE. Recent events (including her thyroiditis) does not preclu de further therapy for her malignancy (even further treatment with immune therapies). She wi ll need outpatient oncology follow-up to discuss therapy moving forward once her current iss ues as above are stabilized. In terms of symptoms related to her malignancy, it seems that s he is most bothered by pain from her compression fractures, which are presumed to be patholo gic in their nature. Opiates are indicated for this form of malignant pain and will also try to maximize her adjuncts. - Oxycodone 5-10 mg q4h PRN. - Adjuncts: APAP 500mg q6-8h, topical lidocaine. - Avoid NSAIDs with renal dysfunction helpful as they may be for pain related to bony metas tases. - The use of a bisphosphonate would be questionable with her renal dysfunction. # FENAP Fluids: will aim for gentle net negative fluid balance Electrolytes: will monitor. Currently no issues. Nutrition: renal diet for now given recent hyperkalemia. May be able to liberalize as JONO r ecovers. Activity: Will work on OOB. Query if PT/OT appropriate. DVT prophylaxis: Therapeutically anticoagulated. This patient will be staffed with attending physician within 24 hours. Dixon Amaya MD PGY2 [id number] signed by Nikki Márquez MD at 11/27/2019 3:31 PM PDT Associated attestation - Nikki Márquez MD - 11/27/2019 3:31 PM PDTA resident assisted wi documenting this service. I saw the patient and reviewed and verified all information doc umented by the resident, and made modifications to such information, when appropriate. Assessment and Problems: 54 y/o woman with metastatic RCC on checkpoint inhibitors who presents with hypotension fou nd to have massive PE. Currently on Lovenox, will have PT/OT see pt and if continuing to do well, discharge mid week. Nikki Márquez MD [facility] Pager [phone] I spent 38 minutes in the care of this patient. Greater than 50% of the time was spent cou nseling and coordination of care, including treatment of PE, discharge planning. Juan Grossman MD - 11/23/2019 10:53 PM PDTFormatting of this note might be different f rom the original. [facility] MEDICAL ICU - HISTORY & PHYSICAL Author: Juan Grossman MD Attending: Tg Uriostegui MD ID/CC: Hank Altman is a 54 y.o. woman admitted to the MICU for massive PE. HPI: 54F with PMH of Hodgkins lymphoma as/p CHOPP and XRT c/b hypothyroidism, CKD3, and stage IV RCC on nivolumab/ipilimumab with mets to liver/lung/bone with L2 pathologic fracture s/p ky phoplasty who presented on 11/20 from Onc clinic with asymptomatic hypotension thought second sukhwinder to thryotoxicosis but admitted to MICU on 11/22 after [facility] with syncopal event and tacchya rhythmia and worse hypotension and found to have massive PE. Pt originally admitted 11/20 from Onc clinic when found to have asymptomatic hypotension. Sh aline was brought to ED. She was given IVF resus. 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 As well as new L1 fracture that Neurosurgery Spine was consulted and rec non-op mgmt and pain control. Labs remarkable for JONO and her baseline hyp erK in 5s. She had TSH 6.77 and fT4 4.2. Onc and Endo consulted, and thought to have thyroto xicosis due to her checkpoint inhibitor therapy. Therefore she was started on hydrocortisone 100mg q8h which has been being weaned, as well as PTU and cholestyramine (now off) as her f T4 has responded well. Random cortisol was 37 making hypoadrenalism less likely contributing factor. She remained well on the floor and was improving, working towards discharge, when on 11/22 s he stood up and had LLE pain and chest pain with SOB and had syncopal event. Code BLUE wagner d, and found to have pulse and be awake/alert, but with tachyarrhythmia and worse hypotensio n. EKG was obtained which showed new RBBB is near elevations (isolectric in V1-3) with tachy cardia and S1Q3T3. She was given 1L LR bolus for her SBP in 70s which responded. She was sta rted on heparin gtt with bolus for concern for PE. BMP remarkable for hyperK to 5.9 and Cr 2 .76. CXR showed no new opacities, and her unchanged calcifications and LAD in mediastinum/hi lum. Trop came back neg. BNP up to [id number] from 3000 on admission. She was transferred to MICU. Upon arrival to MICU she was hypotensive and started on levo. POCUS showed dilated RV with D-sign, good EF, no pericardial effusion. No obvious proximal DVT in BLE. She was having gregor st pain and SOB. She was started on vaso as well. She was given 5U reg insulin and D50 for h er hyperK (given her JONO on CKD). A-line and central line placed. She went for CTA chest whi ch showed bilat pulm embolus with R heart strain (RV:LV>1, septal flattening, and contrast r eflux into IVC). IR was consulted who rec against catheter-directed thrombolysis and instead systemic thrombolysis. She went for CT head at same time which was neg for masses or bleeds . She also had CT a/p which demonstrated her L renal vein thrombosis. She has hx of spinal s urgery back in 08/2019. No hx of stroke, brain surgery/lesions, recent hemorrhage, anticoag use. ROS: See HPI above Past Medical History: Diagnosis Date Hodgkin's disease (HCC) 2001 CHOPP and radiation therapy Hypercalcemia of malignancy Hypertension Hypothyroidism Hypothyroidism Pathologic compression fracture of lumbar vertebra, initial encounter (HCC) Renal cell carcinoma (HCC) clear cell carcinoma of left kidney, 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, lungs, invasion of left pulm onary artery, L2 metastatic spread Patient Active Problem List Diagnosis Renal cell adenocarcinoma (HCC) Hypercalcemia of malignancy Hyperkalemia Hypothyroidism Compression fracture of L2 vertebra (HCC) Closed compression fracture of L2 lumbar vertebra, initial encounter (HCC) 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) Proteinuria Hematuria JONO (acute kidney injury) (HCC) Elevated blood uric acid level Normocytic anemia Leukopenia Hypotension Hypotension, unspecified hypotension type Closed compression fracture of body of L1 vertebra (HCC) Hypothyroidism, unspecified type Renal cell carcinoma, unspecified laterality (HCC) Hyperthyroidism No Known Allergies Prior to Admission Medications Prescriptions cholecalciferol 50,000 unit oral capsule Sig: Take 1 capsule by mouth once daily. Indications: vitamin D deficiency (high dose thera py) Patient taking differently: Take 50,000 Units by mouth every seven days. Indications: gonzales min D deficiency (high dose therapy) levothyroxine 175 mcg oral tablet Sig: Take 1 tablet by mouth before breakfast. lovastatin 20 mg oral tablet Sig: Take 20 mg by mouth once daily in the evening. Administer with evening meal. omeprazole 20 mg oral capsule,delayed release(DR/EC) Sig: Take 1 capsule by mouth two times daily. Administer 30 to 60 minutes before meals oxyCODONE (immediate release) 5 mg oral tablet Sig: Take 1 tablet by mouth every four hours as needed for breakthrough pain (1 to 2 tablet s PO every 4 hours as needed for breakthough pain). Patient taking differently: Take 15 mg by mouth every six hours as needed for breakthrough pain (1 to 2 tablets PO every 4 hours as needed for breakthough pain). 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, likes water aerobics Vital Signs: Cuff BP (!) 87/67 (11/23/192199) | BP Min: 64/54 Max: 110/62 Cuff MAP 75 mmHg (11/23/192199) | BP Mean Min: 58 mmHg Max: 84 mmHg Art Line BP 92/62 (11/23/192199) | ART Line BP Min: 63/43 Max: 108/73 Art Line MAP 71 mmHg (11/23/192199) | ART Line BP Mean Min: 50 mmHg Max: 85 mmHg HR 129 (11/23/192199) | Pulse Min: 93 Max: 142 | Cardiac Rhythm: Tachycardia (11/23/19 1 804) Temp 36 C (96.8 F) (11/23/19 1822) | Temp Min: 36 C (96.8 F) Max: 36.7 C (98.1 F) RR (!) 29 (11/23/192199) | Resp Min: 16 Max: 36 SpO2 100 % (11/23/192199) | SpO2 Min: 93 % Max: 100 % O2 Device Nasal cannula (11/23/192199) | Cam/RASS Most Recent Value RASS Scale 0 CPOT Intake/Output Summary (Last 24 hours) at 11/23/19 0700 Last data filed at 11/23/19 0200 Gross per 24 hour Intake 1630 ml Output 1625 ml Net 5 ml Intake/Output Summary (since admission) at 11/21/19 1212 Last data filed at 11/23/19 2115 Gross for the last 2 days Intake 8695 ml Output 3800 ml Net since Admission 4895 ml BMI: 34.3 Weights 85 kg (187 lb 6.3 oz) (11/21/192124) 80.7 kg (178 lb) (11/21/19 1220) Admit Wt: 80.9 kg (178 lb 6.4 oz) Physical Exam: GEN: awake and alert but somewhat somnolent HEENT: EOMI; PERRL CV: tachycardic but reg, WWP; no m/r/g PULM: CTAB, tachypneic but speaking in full sentences ABD: non-tender, non-distended SKIN: no rashes NEURO: AAOx3; CN II-XII intact; 5/5 strength in BUE and BLE with distal sensation intact Laboratories: Recent Labs 11/21/19 0850 11/22/19 0414 11/23/19 0446 11/23/19 1825 WBC 5.64 3.36* 4.86 8.41 HB 12.6 10.9* 10.1* 11.5* HCT 39.4 35.2* 31.2* 35.3* MCV 88.9 89.8 87.4 88.3 PLT 221 202 187 262 NEUTROPHILCO 4.05 2.63 4.02 -- LYMPHSABS 0.76* 0.54* 0.50* -- MONOCYTECO 0.46 0.14 0.31 -- EOSCO 0.26 0.02 0.00 -- BASOPHILCO 0.08 0.01 0.01 -- IMGRANABS 0.03 0.02 0.02 -- Recent Labs 11/23/19 1823 INRPT 1.11 APTT 25.2* Recent Labs 11/23/19 0446 11/23/19 1601 11/23/19 1823 NA 136 137 135* K 5.6* 5.4* 5.9* CL 114* 114* 113* BICARB 14* 16* 13* BUN 64* 65* 69* CR 2.59* 2.78* 2.76* CA 8.5* 8.6 8.4* ANIONGAP 8 7 9 Recent Labs 11/23/19 0154 11/23/19 0446 11/23/19 1601 11/23/19 1823 GLU 112* 104* 105* 130* Recent Labs 11/21/19 1909 11/22/19 0414 11/23/19 1823 AST 44* 46* 63* ALT 19 19 29 TBILI 0.5 0.5 0.5 AP 91 93 100* ALB 1.5* 1.6* 1.8* TP 5.0* 5.2* 5.7* Recent Labs 11/21/19 0850 11/21/19 1323 11/21/19 1909 11/23/19 1823 LACTICACID -- 1.1 -- -- TROPONIN 0.05 -- 0.08 <0.02 NTPROBNP -- -- 3,981* 9,366* Lab Orders - In Process (From admission to next 24h) Start Ordered 11/23/19 0800 ALDOSTERONE, SERUM TOMORROW AM 11/22/19 1152 11/23/19 0800 RENIN, PLASMA TOMORROW AM 11/22/19 1152 Microbiology: None Imaging: -CTA chest: bilat pulm emboli with R heart strain (RV:LV>1, septal flattening, contrast ref lux) -CXR: no opacities; unchanged mediastinal/hilar calcifications -CT head: no intracranial bleed or obvious masses -CT a/p: L renal vein thrombosis with RCC extensive to L kidney EKG/Echocardiogram: -sinus tachycardia with RBBB and S1Q3T3 with isoelectric to near borderline elevated ST seg ments in V1-3 -repeat EKG: sinus tachycardia, no ST elevations/depressions -TTE bedside 11/22: dilated RV with reduced function, dilated IVC non-collapsing with respir ations; nml LV function --TTE 11/21: mod , RV mildly dilated with mildly reduced systolic function, RVSP 62 (from 75 prior) Current Facility-Administered Medications Medication Dose Route Frequency Last Rate norepinephrine (LEVOPHED) 8mg/250 mL (0.032 mg/mL) IV infusion (ADC) 0.02-0.2 mcg/kg/m in intravenous CONTINUOUS 0.12 mcg/kg/min (11/23/192051) vasopressin 20 Units/100 mL (0.2 Unit/mL) in NS IV infusion (RTU) 0.03 Units/min intra venous CONTINUOUS 0.03 Units/min (11/23/192052) Current Facility-Administered Medications Medication Dose Route Frequency Last Rate alteplase (ACTIVASE) IV bolus from continuous infusion 10 mg 10 mg intravenous ONCE alteplase (ACTIVASE) IV infusion 90 mg 90 mg intravenous ONCE alteplase (ACTIVASE) atorvastatin (LIPITOR) tablet 20 mg 20 mg oral QPM calcium chloride 100 mg/mL (10 %) injection syringe EPINEPHrine injection [START ON 11/24/2019] hydrocortisone sodium succinate (PF) (SOLU-CORTEF) injection 100 m g 100 mg intravenous Q8H lidocaine (LIDODERM) 5 % patch 1 patch 1 patch transdermal Q24H omeprazole (PRILOSEC) capsule 20 mg 20 mg oral BID senna-docusate (SENOKOT S) 8.6-50 mg 1 tablet 1 tablet oral BID sodium chloride (NS) 0.9 % bolus 50 mL 50 mL intravenous ONCE Current Facility-Administered Medications Medication Dose Route Frequency Last Rate acetaminophen (TYLENOL) tablet 650 mg 650 mg oral Q4H PRN bisacodyL (DULCOLAX) suppository 10 mg 10 mg rectal DAILY PRN HYDROmorphone (DILAUDID) injection 0.2-0.5 mg 0.2-0.5 mg intravenous Q2H PRN melatonin tablet 3 mg 3 mg oral HS PRN menthol-zinc oxide (CALAZIME) topical paste 0.2%-16.5% topical QID PRN ondansetron (ZOFRAN) injection 4 mg 4 mg intravenous Q12H PRN polyethylene glycol (MIRALAX) packet 34 g 34 g oral TID PRN Assessment & Plan: Hank Altman is a 54F with PMH of Hodgkins lymphoma as/p CHOPP and XRT c/b hypothyroidism, C KD3, and stage IV RCC on nivolumab/ipilumab with mets to liver/lung/bone with L2 pathologic fracture s/p kyphoplasty who presented on 11/20 from Onc clinic with asymptomatic hypotension thought secondary to thryotoxicosis but admitted to MICU on 11/22 for massive PE. Neurological # Pain -APAP prn -dilaudid prn # L1 compression fracture # Hx of L2 pathologic fracture s/p kyphoplasty 08/2019 Hx of L2 pathologic fracture s/p kyphoplasty in 08/2019. Presented to ED this time with CT a/p showing incidental L1 compression fracture, no clearly pathologic etiology. -Neurosurgery spine consulted, appreciate recs: -non-op -pain control -Neurosurgery signed off; f/u 6 weeks (they will arrange) Cardiovascular # Shock # Massive PE # R heart strain Pt presented to MICU as transfer after syncopal event with CP and SOB, in shock with worse hypotension. POCUS on arrival showed dilated RV with D-sign concerning for PE given her hx ( no evidence of [id number]; no pericardial effusion), started on empiric heparin bolus a nd gtt. CTA chest showed bilat pulm emboli with R heart strain (RV/LV>1, septal flattening, contrast reflux), with BNP 9000 from 3000 but neg trop, in setting of hypotension, consisten t with massive PE. Started on levo and and then vaso in the MICU. Concern for possible tumor embolus as well given RCC, but less likely given imaging nature per Rads/IR. Likely embolic source from L renal vein thrombosis from her extensive RCC. JABN=653, Class V. -IR consulted, appreciate recs: -feel catheter-directed thrombolysis more risky given her K (wires running through heart) and her JONO (req further intra-arterial contrast loads), therefore feel she is better ar date for systemic thrombolysis -s/p heparin bolus and gtt; will turn off and start systemic alteplase: -10mg bolus and then 90mg over 2 hours -plan restart heparin gtt after once PTT< 1.5-2 times upper limit of normal after altepla se -CT head neg for obvious mets or bleed (and MRI brain in 08/2019 neg for mets or lesions) -had kyphoplasty in 08/2019, remote, otherwise no contraindications to tPA -q1h neuro checks -if worsens or bleeding, consider RP bleed or into L RCC -Likely source renal vein thrombus, but DVU of legs ordered to ensure no large proximal DV T that may warrant IVC filter (though data mixed) -POCUS on MICU arrival without obvious proximal DVT -MAP>65; levo (for RV CPP support and some inotropic support) and vaso (for RV CPP support and less PVR effect) # R heart failure Due to increased PVR from bilat PE. Cardiology based US on MICU arrival shows slightly wors e dilated RV with reduced function. BNP up to 9000s from 3000s on admission. -see PE plan above -f/u final TTE read from 11/22 -if worsening hypoxemia, consider bubble study to assess for intra-cardiac shunt in settin g of increased R heart pressures from PE # Tachycardia # RBBB Had tachycardia with new RBBB on CODE BLUE, with S1Q3T3 concerning for PE on arrival due to R heart strain patter. Repeat EKG QRS narrowing. -trop neg; f/u repeat given isoelectric in V1-3 on RBBB pattern on arrival to rule out ACS -tachycardia is compensatory response, will not control, and ctm # HLD (chronic) -atorva Respiratory # Acute hypoxemic respiratory failure On NC O2 on MICU arrival. Likely multifactorial, component of alveolar edema, component of Type IV resp failure, and component of PE (unknown if history of intra-cardiac shunt). -ctm -wean NC O2 as able -see CV plan above GI / Nutrition # GERD (chronic) -omeprazole bid / Renal # JONO on CKD3 # Hyperkalemia Baseline Cr 1.4-2 it seems. Cr 2.76 on MICU arrival with hyperK to 5.9 (though seems to hav e K in 5-6 at most times since 08/2019). Etiology likely due to ATN from shock vs R heart fa ilure contributing vs RCC and resultant renal vein tumor thrombosis. S/p 5U reg insulin and D50 on MICU arrival to temporize. -ctm hyperK and shift as needed, though seems at baseline; no emergent indication for dial ysis -per Rads, L kidney all tumor and no architecture, chronically; no need for arterial duple x to assess inflow as not Salvageable; no hydro on the R to suggest obstructive uropathy # NAGMA Bicarb 13 with narrow AG and JEANIE=22 indicating NAGMA. Likely due to RTA vs hypoaldosteronis m given her hyperK and presentation. -f/u renin/sophia levels -see Endo plan below Infectious Disease No active issues Hematology / Oncology # Stage IV L RCC Has L RCC with mets to lung/liver/bone and pathologic L2 fracture s/p kyphoplasty in 9. On nivolumab and ipilimumab. -hold nivo/ipi -Onc following # Hx of Hodgkins lymphoma S/p CHOPP and XRT. Complicated by hypothyroidism. Endocrine # Thyrotoxicosis Presented with TSH 6.77 and fT4 4.2, and presentation concerning for hyperthyroidism due to checkpoint inhibitor therapy. Was started on hydrocortisone 100mg q8h which was being weane d, and was on PTU and cholestyramine (now off) with fT4 down to 2.7. -restart hydrocortisone 100mg IV q8h given new/worse shock in setting of wean -Endo following, appreciate recs: -f/u fT4 in AM -f/u renin/sophia levels per above Present on admission Acute systolic heart failure Cardiogenic shock Acute respiratory failure Acute non-oliguric kidney injury Acute hyperkalemia Massive pulmonary embolism Hyperthyroidism Renal vein thrombosis Renal cell carcinoma Non-anion gap metabolic acidosis L1 compression fracture Consultants: IR, Endo, Onc, Cards Feeding: NPO/Bowel Rest Analgesia: Acetaminophen and Hydromorphone Sedation: None (RASS Goal 0 (alert and calm)) Thromboprophylaxis: Heparin IV Head of Bed: Ad radha Ulcer Prophylaxis: PPI Glycemic control: BS controlled < 180, insulin not indicated Mobility Goal: Bed rest Lines/Tubes/Drains/Airways: L IJ CVC and Arterial Line, PIV x2 Code Status Code Status Full Code Surrogate Decision Maker Documentation: Surrogate Decision Maker Primary Surrogate Decision Maker Amada Manzanares sister [phone] Secondary Surrogate Decision Maker William Talavera sister This patient was staffed with Dr. Uriostegui, attending physician. Juan Grossman MD 11/23/2019, 10:53 PM Aleksey Walker MD - 7:34 PM PDT Internal Medicine History and Physical Attending Physician: Jose Luis Segura Chief Complaint: Low blood pressure HPI: Ms. Altman is a 54yoF with Hx of Hodgkin's lymphoma s/p CHOPP/RT in 2002 c/b hypothyroidism o n synthroid and stage IV RCC c/b L2 pathologic fracture s/p kyphoplasty 08/2019 who was refe rred from infusion clinic to ED on 11/20 for asymptomatic hypotension. Ms. Altman was in her usual state of health at her appointment for immunotherapy (Cycle 3 of 4 ipilimumab/nivolumab) when it was noted her blood pressure was low. Immunotherapy was held and she was sent to CT scanner. Upon return, her blood pressures continued to remain low (S BP 60s) and was sent to the emergency department. An [employer] was called in ED for persistent hyp otension. She was subsequently admitted to ED observation for further workup. Ms. Altman denies feeling lightheaded or dizzy during these episodes. She has never had an ep isode of syncope or pre-syncope. She endorses chronic fatigue and mild nausea. She denies fe vers, chills, night sweats, cough, SOB, chest pain, palpitations, orthopnea, PND, abdominal pain, diarrhea, hematochezia, n/v or polyuria. Patient reports she has had good PO intake an d has recently increased her food intake. Of note, patient was admitted to MICU for asymptomatic hypotension and JONO in 08/2019. Work up was normal including ACTH stimulation test, pituitary MRI and TTE. No definitive cause wa s identified. Leading hypothesis at that time was JONO in s/o ACEi and BB causing hypotension , but patient's hypotension did not improve despite resolution of that JONO. Patient was disc harged on PO midodrine and ACEi and atenolol held. Notably, Ms. Altman does not recall being o n midodrine and has not been taking it. ED Course: Vitals: T 36.4 | HR 119 | BP 87/54 | RR 18 | O2 Sat 100% RA Work up: - K: 5.5 --> 5.0 - Creatine 3.2 (baseline 1.4) Interventions: - Consults: - Neurosurgery - Med Oncology - Endocrine - Meds: - IV LR 1L - Hydrocortisone - PTU - Cholestyramine Past Medical History: Past Medical History: Diagnosis Date Hodgkin's disease (HCC) 2001 CHOPP and radiation therapy Hypercalcemia of malignancy Hypertension Hypothyroidism Hypothyroidism Pathologic compression fracture of lumbar vertebra, initial encounter (HCC) Renal cell carcinoma (HCC) clear cell carcinoma of left kidney, 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, lungs, invasion of left pulm onary artery, L2 metastatic spread Review of Systems: ROS otherwise normal. Home Medications: No current facility-administered medications on file prior to encounter. Current Outpatient Medications on File Prior to Encounter Medication Sig Dispense Refill cholecalciferol 50,000 unit oral capsule Take 1 capsule by mouth once daily. Indication s: vitamin D deficiency (high dose therapy) (Patient taking differently: Take 50,000 Units b y mouth every seven days. Indications: vitamin D deficiency (high dose therapy)) 30 capsule 0 levothyroxine 175 mcg oral tablet Take 1 tablet by mouth before breakfast. 30 tablet 0 lovastatin 20 mg oral tablet Take 20 mg by mouth once daily in the evening. Administer with evening meal. omeprazole 20 mg oral capsule,delayed release(DR/EC) Take 1 capsule by mouth two times daily. Administer 30 to 60 minutes before meals 30 capsule 0 oxyCODONE (immediate release) 5 mg oral tablet Take 1 tablet by mouth every four hours as needed for breakthrough pain (1 to 2 tablets PO every 4 hours as needed for breakthough p ain). (Patient taking differently: Take 15 mg by mouth every six hours as needed for breakth rough pain (1 to 2 tablets PO every 4 hours as needed for breakthough pain). 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 General Appearance: Middle age woman laying in bed, NAD, pleasant. HEENT: NCAT, anicteric sclera. Respiratory: Equal chest rise. Good breath sound bilaterally. Clear to ascultation. Cardiovascular: NR. RR. 2/6 systolic murmur at LLSB. Gastrointestinal: Soft, non distended, non tender. +BS Musculoskeletal: No gross deformities. Pulses palpable. Skin: WWP in all extremities. Neurologic: A&Ox3. No flattening NLF. Laboratory Interpretation: Lab Results Component Value Date WBC 5.64 11/21/2019 HB 12.6 11/21/2019 HCT 39.4 11/21/2019 PLT 221 11/21/2019 MCV 88.9 11/21/2019 RDW 55.8 11/21/2019 Lab Results Component Value Date NA 130 11/21/2019 K 5.5 11/21/2019 CL 102 11/21/2019 BICARB 16 11/21/2019 BUN 85 11/21/2019 EGFRAFRICAN 18 11/21/2019 EGFRNONAFR 15 11/21/2019 CR 3.20 11/21/2019 GLU 93 11/21/2019 CA 8.9 11/21/2019 ANIONGAP 12 11/21/2019 ANIONALBCOR 17 11/21/2019 Lab Results Component Value Date FREET4 4.2 11/21/2019 TSH 6.77 11/21/2019 Imaging Interpretation: 11/21/2019 X-ray Portable Chest IMPRESSION: Trace bibasilar basilar atelectasis. 11/21/2019 CT C/A/P w/o intravenous contrast IMPRESSION: 1. Since 08/23/19, stable large infiltrative left renal cell carcinoma. Extent of renal vei n thrombus cannot be determined without IV contrast but appear similar. Extensive surroundin g venous collaterals present. 2. Stable retroperitoneal foster metastases. Liver metastases are poorly visualized without contrast but are at least stable to minimally increased. 3. New vertebral body L1 compression deformity. Cannot exclude underlying lesion, though no ne definitively visualized. Further compression of L2 pathologic fracture post vertebroplast y. 4. Stable pulmonary nodules. Stable bilateral lower lobe groundglass opacities which may be inflammatory as opposed to infectious given lack of change. Assessment and Plan: Ms. Altman is a 54yoF with Hx of Hodgkin's lymphoma s/p CHOPP/RT in 2002 c/b hypothyroidism o n synthroid and stage IV RCC c/b L2 pathologic fracture s/p kyphoplasty 08/2019 who was refe rred from infusion clinic to ED on 11/20 for asymptomatic hypotension and persistently hypot ensive since admission with new JONO. # Hypotension DDx: Infection, AI, spinal compression, cardiac, hypovolemia, PE, other. Currently not max r what the cause of patient's hypotension. Has returned to baseline 80-90s with 1L IVF. No H x concerning for hypovolemia as good PO intake, no bleed/burn/diarrhea or significant diures is. Previously has shown good response to corticotropin stimulation testing and w/o metastas is to adrenal glands to suggest AI. No e/o neuro deficits to suggest spinal compression. Pat ient warm and well perfused, no e/o heart failure. No history or exam c/f PE. Was started on hydrocortisone in ED per endocrine recommendations for hyperthyroidism. Will f/u repeat echo ordered in ED and see if patient responds to steroids. May consider restart ing midodrine as patient tolerated well when inpatient after discharge from MICU. Lastly, co uld consider another fluid challenge. - F/u TTE - Trend Bps for response to hydrocodone - Consider restarting Midodrine # Tachycardia # Hyperthyroidism induced Thyrotoxicosis DDx: Check pint inhibitor induced hyperthyroidism, graves, thyroiditis, other. Endocrine co nsulted in ED, work up per below. Concern for ability to tolerate BB given hypotension. Will hold from initiation of BB. - f/u endocrine recommendations; appreciate guidance - Meds: - HOLD levothyroxine - Hydrocortisone 100mg IV q8hrs - PTU 200mg (will transition to methimazole) - Cholestyramine 4g QID - Labs: - TSH 11/22/2019 - T4 daily - LFT daily - CBC daily - f/u TPO - f/u TSI - f/u T3 total # Acute Renal Injury # CKD IIIb # Hyperkalemia Baseline creatinine 1.3-1.4. Creatinine trend: 3.20->2.92. DDx: Hypotension induced ATN, pr e-renal, infection, post renal. Most likely multifactorial JONO in setting of hypotension and renal cell cancer. s/p 1L IVF in ED. No e/o infection on UA. Will continue to trend her cre atinine and give additional fluids as appropriate. - Trend Creatinine - Consider urine lytes - Consider additional fluid bolus - Consider renal US to r/o obstruction if not improving # Stage IV Clear Cell Carcinoma of Kidney w/metastatic disease (lung, bone, liver and LN) # L1 vertebral body compression deformity # Pathologic L2 compression fracture s/p vertebroplasty Followed by Dr. Ortzi. Was to receive cycle 3/4 ipi/nivo 11/20, infusion held in setting of hypotension. NSGY consultation in ED for L1 fracture seen on CT. NSGY recs no acute interven tion as L1 fracture not pathologic. Recommended pain control. - Oxycodone 5mg q4hrs PRN - Acetaminophen 1000mg TID PRN - Lidocaine patch q24hrs - 4WW - f/u medical oncology recommendations #Pulmonary HTN TTE12/20 w/ RVSP of 75. Stable on RA. Will compare to new echo. - NTD # Home meds - Omeprazole 20mg BID - Atorvastatin 20mg daily (STARTED in ED, unclear why as not home med) # PRN - Senna BID - Miralax - Bisacodyl - Melatonin Diet: Regular DVT ppx: Heparin Dispo: Pending resolution JONO Code: Full code Decision Maker: Amada Condon MD Internal Medicine PGY-1 Pager [phone] Associated attestation - Jose Luis Segura MD - 11/22/2019 5:03 PM PDTGeneral Medicine Attending Admission Note Author: Jose Luis Segura MD Hospital Day # 1 PCP: Lissette Milner PA-C I personally interviewed the patient, performed the gonsales elements of the physical examinatio n, and personally formulated the assessment and plan with Dr Palacios and Dr Hussein. Please s ee admission note for additional details; notable exceptions as written below. ROS as per note, all others negative. Problem List Patients Hospital Problem List: Active Hospital Problems 1) *Hypotension, unspecified hypotension type 2) Hyperkalemia 3) JONO (acute kidney injury) (HCC) 4) Hypotension 5) Closed compression fracture of body of L1 vertebra (HCC) 6) Hypothyroidism, unspecified type 7) Renal cell carcinoma, unspecified laterality (HCC) Impression: 54 year old female with a history of Hodgkins lymphoma (2002) c/b hypothyroidism on levothy roxine, stage IV RCC with osseous mets on nivolumab and ipilimumab, admitted from clinic for evaluation of hypotension, hyperkalemia and worsening JONO. No obvious common cause of her profound hypotension -- no infectious localizing signs, e/o profound hypovolemia, nor cardiogenic shock. Suspect it is related to hyperthyroidism, adre nal fatigue/insufficiency, mineralocorticoid deficiency/hypoaldosteronism (hyperkalemia and metabolic acidosis). JONO likely prerenal injury in the setting of recurrent hypotension. L 1 presumed pathologic fracture identified on CT scan yesterday -- no role for intervention p er neurosurgery. Will follow endocrine recs for further workup and treatment of thyrotoxico sis and mineralocorticoid deficiency. Immunotherapy on hold, and will be discussed at outpa tient visit. Patient/Family Goals & Expectations: Above problems discussed with the patient who understands and is agreeable with our plans. Jose Luis Segura MD [facility] Teaching Attending I spent 73 minutes in the care of this patient, >50% engaged in bedside counseling or coord ination of care with endocrinology, oncology, neurosurgery. Pavan Ramos MD - 11/21/2019 7:32 PM PDTFormatting of this note might be different from alen mireles original. Internal Medicine - Brief Resident Admit Note ID/HPI: [id number] with hx of Hodgkin's Lymphoma treated in 2002 with CHOPP and RT and metastatic RCC (met s to LN, liver, bone, concern for mets in the lungs) presenting with severe asymptomatic hyp otension and finding of JONO. Patient presented to hem/onc infusion clinic 11/20 for scheduled infusion of immunotherapy (Cycle 3 of 4 ipilimumab/nivolumab) (last cycle 3 weeks ago) wher e she was found to be markedly hypotensive, 60s/40s. Tachycardic to 100s, but mentating well and denying orthostatic symptoms. Patient had a similar admission for asymptomatic hypotension in August 2019, with MICU ad mission for pressors. Workup during that admission included pituitary MRI, ACTH stim test wh ich were normal. Patient was ultimately discharged on PO midodrine and with ACEi and atenolo l held, although patient does not recall being discharged with midodrine and has not been ta emma it. Ms. Altman denies preceding diarrhea, nausea, vomiting, decreased appetite that may account f or extra-renal fluid loss. ED Course: - IV LR 1L (1L was administered in [facility]) - Repeat BMP with improvement in serum Cr, resolution of hyponatremia, hyperkalemia - Endocrinology consult -> started on hydrocortisone, PTU, cholestyramine for hyperthyroidi sm and possible relative adrenal insufficiency secondary to hyperthyroidism Objective Findings: Vitals: MAPs 40s-50s, HR 100-110, RR normal and saturating 100% on RA Exam: Systolic murmur left sternal border, moderate non-pitting edema of all extremities, c lear lungs Labs: Initial Cr 3.2 (baseline 1.5-1.6), Albumin 1.5, TSH 6.77, Free T4 4.2, random serum c ortisol 37.4 Imaging: CT A/P from 11/21/2019 overall stable findings w/r/t L RCC, hepatic mets, pulmonary nodules, new L1 compression deformity Problem List: #Hypotension #JONO #Hyperthyroidism #Metastatic RCC #Hypoalbuminemia #Peripheral edema #Pathologic vertebral fractures #Deconditioning #Hx of Hodgkin's Lymphoma s/p CHOPP + RT Assessment & Plan: 54F with hx of Hodgkin's lymphoma and metastatic RCC presenting with severe, asymptomatic h ypotension and JONO. Patient does have low blood pressures at baseline although SBP in the 60 s-70s is a new finding. History obtained today is not suggestive of a hypovolemic hypotensio n (no polyuria, diarrhea, vomiting), although this should be considered in the context of im proved BP after fluid bolus. Endocrine consultation obtained in the ED with a consideration of relative adrenal insuffic iency in the setting of hyperthyroidism - some improvement in MAPs noted following initial a dministration of hydrocortisone. In a brief literature search there are reports of drug-muriel cayetano thyroiditis progressive to hypothyroidism in patients who are receiving PD-1 inhibitors, unclear how pre-existing hypothyroidism 2/2 previous radiation therapy would impact the lik elihood of this clinical scenario. With regards to JONO on CKD, favor a multi-factorial pre-renal etiology. Patient has become progressively hypoalbuminemic since her August 2019 admission and is noted to have general ized non-pitting edema. -Follow-up endocrinology re: workup for immune checkpoint inhibitor-induced hyperthyroidism -If patient remains significantly hypotensive with hydrocortisone trial, would restart mido drine -Continue to trend BMP Code Status: Full Surrogate Decision Maker Documentation: Surrogate Decision Maker Primary Surrogate Decision Maker Amada Manzanares sister [phone] Secondary Surrogate Decision Maker William jay This patient will be staffed with attending physician, Dr. Flores within 24 hours. Plea se refer to excellent internet marketing specialist H&P for full problem based plan. Pavan Ramos MD Internal Medicine, PGY-2 Pager: [phone] awrLisa jha PA-C - 11/21/2019 2:37 PM PDTFormatting of this note might be different from the origina l. ED Observation Unit History and Physical Exam: PCP: Lissette Milner PA-C ED ATTENDING: Eulalia Antonio MD, MPH Reason for admission: Hypotension HPI: Hank Altman is a 54 y.o. female with a PMH of remote Hodgkin's lymphoma s/p CHOPP & XRT, hypothyroidism, and stage IV renal cell carcinoma with metastases to the liver and jana ng (getting EPO/NEVO chemotherapy) who presented to the ED for evaluation of hypotension. Ms Altman was getting a previously scheduled (non-contrast) CT when her blood pressure was noted to be 60s/40s without symptoms. She was brought to the infusion clinic where she remained h ypotensive. [facility] was called and she was brought to the Emergency Department. Hank Altman states that she was at her Oncology appointment for immunotherapy. She had labs and imaging done, but it was noted that her blood pressures were low. The oncology se onesimoice decided against immunotherapy treatment and gave her IV fluids. The fluids made her f eel better. She noted her feet were getting a little swollen today. Given continued hypote nsion, an [facility] was called and a peripheral US-guided IV was placed. She endorses chronic fat igue, without acute changes, but has been otherwise asymptomatic with her newly found hypote nsion. She was then sent to the ED for evaluation and treatment. She has had low blood pre ssures in the past, but has not had issues since she was hospitalized in August of 2019 fo r electrolyte derangements and a pathologic L2 compression fracture. She has chronic low ba ck pain that is achy and stiff in nature without acute changes. Her bacl pain is 5/10, with out radiation, made worse with movement and better with rest. She uses Roxicodone at home f or stable management of her pain. She endorses intermittent red-tinged mucous in her urine. She denies numbness, weakness, tingling, lightheadedness, dizziness, fevers, chills, chest pain, shortness of breath, abdominal pain, or dysuria. Acute Emergency Department Course: ED Triage Vitals BP Temp Heart Rate Pulse - Plethysmograph Resp SpO2 11/21/19 1219 11/21/19 1220 11/21/19 1219 11/21/19 1219 -- 11/21/19 1219 (!) 88/58 36.4 C (!) 121 102 pulses/min 100 % Vitals: hypotensive and tachycardia Physical Exam: unremarkable Labs: no leukocytosis or anemia (may reflect hemoconcentration), hyperkalemia (5.5) with el evated BUN (85) and Cr (3.2, baseline ~1.6), normal lactate, UA with hematuria and proteinur ia but no nitrites or LE Imaging: CT chest/abdomen/pelvis without significant changes from prior CXR with minimal atelectasis EKG: sinus without hyperkalemia changes Medications given: 1 L NS Consults: None Once stable, the patient was transferred to the Emergency Department Observation Unit with a diagnosis of acute on chronic kidney injury and hyperkalemia for continuation of care incl uding serial exams, serial labs, and close observation PAST MEDICAL HISTORY: Past Medical History: Diagnosis Date Hodgkin's disease (HCC) 2002 CHOPP and radiation therapy Hypercalcemia of malignancy Hypertension Hypothyroidism Hypothyroidism Pathologic compression fracture of lumbar vertebra, initial encounter (HCC) Renal cell carcinoma (HCC) clear cell carcinoma of left kidney, 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, lungs, invasion of left pulm onary artery, L2 metastatic spread PAST SURGICAL HISTORY: Past Surgical History Procedure Laterality Date C section 1988, 2000 Knee surgery Left 1980 Mediport insertion placed in left chest site in 2001 w/ removal in 2002 MEDICATIONS: Patient's Medications New Prescriptions No medications on file Previous Medications CHOLECALCIFEROL 50,000 UNIT ORAL CAPSULE Take 1 capsule by mouth once daily. Indication s: vitamin D deficiency (high dose therapy) FUROSEMIDE (LASIX) 20 MG ORAL TABLET Take 1 tablet by mouth once daily. LEVOTHYROXINE 175 MCG ORAL TABLET Take 1 tablet by mouth before breakfast. LOVASTATIN 20 MG ORAL TABLET Take 20 mg by mouth once daily in the evening. Administer with evening meal. OMEPRAZOLE 20 MG ORAL CAPSULE,DELAYED RELEASE(DR/EC) Take 1 capsule by mouth two times daily. Administer 30 to 60 minutes before meals OXYCODONE (IMMEDIATE RELEASE) 5 MG ORAL TABLET Take 1 tablet by mouth every four hours as needed for breakthrough pain (1 to 2 tablets PO every 4 hours as needed for breakthough p ain). 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: [employer] Social Needs Financial resource strain: Not on file Food insecurity: Worry: Not on file Inability: Not on file Transportation needs: Medical: Not on file Non-medical: Not on file Tobacco Use Smoking status: Never Smoker Smokeless tobacco: Never Used Substance and Sexual Activity Alcohol use: Not Currently Drug use: Never Sexual activity: Not on file Lifestyle Physical activity: Days per week: Not on file Minutes per session: Not on file Stress: Not on file Relationships Social connections: Talks on phone: Not on file Gets together: Not on file Attends mandaeism service: Not on file Active member of club or organization: Not on file Attends meetings of clubs or organizations: Not on file Relationship status: Not on file Other Topics Concern Not on file Social History Narrative Lives in [place], 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 PHYSICAL EXAM: Vitals: 11/21/19 1330 11/21/19 1408 11/21/19 1409 11/21/19 1410 BP: (!) 93/56 93/60 BP Location: Patient Position: Pulse: (!) 103 (!) 109 (!) 107 Temp: TempSrc: SpO2: 99% 98% Weight: General appearance: Adult female lying in bed appearing well nourished and hydrated in NAD. HEENT: Normocephalic, atraumatic. Sclera anicteric, without injection, PERRLA, EOMI. Mucous membranes moist, orharynx without exudate, uvula mid-line. Neck supple, no lymphadenopathy , no masses. CV: RRR, I/ SE murmur best heard at LLSB, no rubs or gallops. Resp: Chest symmetrical. No respiratory distress. No use of accessory muscles. Breath s ounds equal bilaterally, no wheezes, rales, rhonchi, or rubs. Talking in full sentences. GI: Abdomen non-distended, soft, non-tender, no rebound, no guarding, NABS x 4. No HSM. Extrem: No deformities or visible joint swelling. Peripheral Vascular: No cyanosis or clubbing. Trace to 1+ non-pitting BLE edema. 2+ Post erior Tibial pulses bilaterally. Neuro: A&O x 3, CN II-XII intact grossly, motor 5/5 in all ext's, sensation intact, fine mo tor intact. Psych: Appropriate affect and insight. Skin: Appropriate color, warm, dry. 12 Lead ECG: Rhythm: Sinus tachycardia Rate: 102 [place]: 230 QTc interval: 447 ST segment changes: No acute ischemic changes Comparison to a prior ECG: Similar to 08/2019 Imaging: X-ray Portable Chest 1 View Result Date: 11/21/2019 EXAM: AR CHEST 1 VIEW HISTORY: low BP. History of remote Hodgkin's lymphoma status post ch emotherapy XRT and metastatic renal cell carcinoma. COMPARISON: CT 11/21/2019, radiograph FINDINGS: Cardiomediastinal silhouette is unchanged. There is extensive calcified mediastinal lymph nodes related to treatment for Hodgkin's lymphoma and prior radiation rishi atment. No new focal consolidation. Trace bibasilar atelectasis. There is no pneumothorax, p leural effusion, or pulmonary edema. Osseous structures are intact. IMPRESSION: Trace biba silar basilar atelectasis. See separate report for same day CT of the chest, abdomen and pe lvis for additional details. I have personally reviewed the images and, if necessary, edite d the report. I agree with the report as now presented. Final signature: Charlene Dinh MD 11/21/2019 1:11 PM Preliminary: Omayra Azar MD Dictation initiated: Omayra Azar MD 11/21/2019 1:[address] Chest, Abdomen And Pelvis Wo Iv Contrast Result Date: 11/21/2019 EXAM: CT of the chest, abdomen and pelvis without intravenous contrast. HISTORY: metasta tic kidney cancer COMPARISON: CT 08/23/2019 TECHNIQUE: CT of the chest, abdomen and pelvi s without intravenous contrast. Coronal and sagittal reformats were generated and created. FINDINGS: Lack of intravenous contrast limits evaluation of the solid organs and vasculatur e. CHEST: The heart and great vessels are unremarkable. Multiple calcified mediastinal lymp h nodes are present from treated lymphoma. Scattered pulmonary nodules are unchanged. For e xample right anterior middle lobe nodule measures 4 mm, previously 5 mm (lung 85), right low er lobe nodule measures 4 mm, previously 6 mm (lung 93). Areas of scattered areas of bronchi ectasis and radiation related paramediastinal changes are unchanged. Bilateral lower lobe g roundglass opacities are unchanged since 08/23/2019. No pleural fluid. LIVER: Liver appears diffusely infiltrated by tumor but this is not well evaluated or measured on this noncontra st scan. Overall, the appearance is similar compared to the prior though there may be some p rogression of the right lobe of the liver posteriorly. BILIARY: Layering sludge in the gallb ladder. No biliary dilation. PANCREAS: Unremarkable. SPLEEN: Unremarkable. ADRENALS: Unrema rkable. KIDNEYS/URETERS: Large infiltrative left renal mass measures 11.8 x 9.7 cm (axial 12 8), previously 13.1 x 10.1 cm. Extent of left renal vein thrombus cannot be determined in th e setting of no contrast. Multiple collaterals surrounding the left kidney are redemonstrate d. The right kidney is unremarkable. PELVIC ORGANS/BLADDER: Unremarkable. GI TRACT: Unremar kable. PERITONEUM: Trace pelvic free fluid. LYMPH NODES: Stable retroperitoneal foster metas tases. For example periaortic node measures 3.6 x 2.2 cm (133), previously 3.6 x 2.4 cm. VES SELS: Tumor thrombus expands the left renal vein up to the cava at least, similar to prior, but overall difficult to assess without IV contrast. BONES AND SOFT TISSUES: Postsurgical c hanges of vertebral body L2 pathologic fracture post kyphoplasty. There is new compression d eformity of L1. IMPRESSION: 1. Since 08/23/19, stable large infiltrative left renal cell c arcinoma. Extent of renal vein thrombus cannot be determined without IV contrast but appear similar. Extensive surrounding venous collaterals present. 2. Stable retroperitoneal foster metastases. Liver metastases are poorly visualized without contrast but are at least stable to minimally increased.. 3. New vertebral body L1 compression deformity. Cannot exclude und erlying lesion, though none definitively visualized. Further compression of L2 pathologic fr acture post vertebroplasty. 4. Stable pulmonary nodules. Stable bilateral lower lobe ground glass opacities which may be inflammatory as opposed to infectious given lack of change. I have personally reviewed the images and, if necessary, edited the report. I agree with the r eport as now presented. Final signature: Tom Mercer MD 11/21/2019 1:12 PM Preliminary : Melissa Jasso MD Dictation initiated: Melissa Jasso MD 11/21/2019 11:17 AM Consults: None ASSESSMENT/PLAN: # Acute on chronic renal insufficiency # Hyperkalemia # Hypotension # Renal vein thrombus JONO in setting of hypotension refractory to IVFs and known RCC. Denies taking midodrine af ter discharge for same issue in 08/2019 where she was admitted to the MICU for hypotension o f unknown origin and electrolyte derangement and placed on stress dose steroids and vasopres sors. 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 No peaked T waves are noted on ECG and patient is otherwise asy mptomatic. Repeat labs after IVF will determine further needs regarding electrolyte derange ment and renal function. - vitals q3h - continuous cardiac telemetry - continuous pulse oximetry - ECG prn - orthostatic BP checks - Second 1 L bolus of LR now - avoid nephrotoxic agents - repeat CMP this evening & in AM - Med Onc consultation appreciated # Elevated Free T4 # Tachycardia # Mild non-pitting BLE edema Given elevated Free T4, tachycardia, and BLE edema, an impending thyroid storm is considere d. A TTE and Endocrinology consult for further evaluation is recommended. Given hypercoagu lable state, PE is considered though SpO2 at 100% on room air and talking in complete senten denise without symptoms of shortness of breath. Lactate of 1.1 is reassuring. - TTE now - repeat ECG/troponin ordered - NT-Pro BNP ordered - question need for VQ scan as renal function impairment excludes CTA at this time, though , PE lower on the differential - temporarily hold levothyroxine in AM - Endocrinology service consultation appreciated # L1 vertebral body compression deformity # Pathologic L2 compression fracture s/p vertebroplasty # Chronic low back pain No acute changes to chronic low back pain. No neurologic changes. Likely consistent with ne w pathologic fracture. - NSGY consultation appreciated # Chronic medical conditions - Continue home medications - Follow-up with PCP # Code status: full # VTE prophylaxis: none per Med Onc prelim recs # Activity: as tolerated # Diet: regular Disposition: Admit to ED Observation pending clinical response. Lisa Steele PA-C Emergency Department and (co-authored) Mary Garcia PA-C Emergency Department 7:35 PM, Lisa Steele PA-C, Faculty Note: This patient's hypotension was not responsive to IV fluids and the case was reviewed with maya ascencio Internal Medicine service who agreed that she was not the most suitable patient for the E D observation unit. The patient was then accepted by the Internal Medicine service. Given that the patient was in the ED observation unit for five hours, there is no need for a trans gerald/admission summary. documented in thi s encounter Procedure Notes Mian Márquez MD - 11/23/2019 11:29 PM PDTAssociated Order(s): CENTRAL LINE CENTRAL LINE Performed by: Mian Márquez MD Authorized by: Tg Uriostegui MD Written consent obtained?: Yes Consent given by: Patient Patient identity confirmed per policy: Yes Procedural pause: Immediately prior to the procedure a pause per universal protocol was clark led . Location performed: 7A Skin Preparation: Chloraprep Protective barrier: Cap, Mask, Hand scrub, Gown, Gloves and Full body drape Sterile Ultrasound Technique: Sterile Ultrasound techniques (sterile gel, and sterile prob e cover) used Indications: Indications: Administration of medicationn Diagnosis indicating procedure: Shock Responsible Provider: Operators: Fellow Anesthesia: Anesthesia: Local infiltration Local anesthetic: Lidocaine 1% w/o epinephrine Anesthetic total (ml): 5 Procedure details: Monitoring: EKG, SaO2, NIBP and Arterial line Insertion side: Left Insertion site: Internal Jugular vein Insertion site statement: With catheter tip targeted in SVC, see CXR report for confirma tion Vein rn clinical technique: Ultrasound Guidance Techique: The standard Seldinger technique was used for vessel cannulation Confirmed by: The wire was visualized with ultrasound in the correct target vessel Catheter type: Triple lumen Catheter size: 7 Fr Catheter length: 16 cm Insertion depth: 16 cm Ports: All ports aspirated for blood Ports flushed with: Saline Number of attempts: 1 Fixation and Dressing: Line secured: Suture and Dressing Applied The guide wire was removed without difficulties and intact Dressing: Dressing applied prior of removal of full barrier drape Complications: Complications: None Vital Signs: Vital signs stable: Yes Verification: Verification: Line verified by radiograph Mian Márquez MD Associated attestation - Tg Uriostegui MD - 11/28/2019 10:31 PM PDTFormatting of this note m ight be different from the original. PULMONARY ATTENDING ATTESTATION I was present for the critical portions of the procedure on 11-23-2019 as described in the n ote for this encounter. Time spent on procedure is outside any documented critical care time . TG URIOSTEGUI MD [facility] [address] [place] [address] Juan Grossman MD - 11/23/2019 7:48 PM PDTAssociated Order(s): ARTERIAL LINE ARTERIAL LINE Performed by: Juan Grossman MD Authorized by: Tg Uriostegui MD Written consent obtained?: Yes Emergent situation Consent given by: Patient Patient identity confirmed per policy: Yes Procedural pause: Immediately prior to the procedure a pause per universal protocol was clark led . Indications: Beat to beat blood pressure monitoring and Frequent lab draws Diagnosis indicating procedure: Shock, concern for PE Location performed: 7A Operators: Resident Attending physically present: Yes Resident name: Matt Grossman MD Skin Preparation: Chloraprep Protective barrier: Cap, Mask, Hand scrub, Gloves and Partially draped Sterile Ultrasound Used: Sterile Ultrasound Used Anesthesia: Local infiltration Local anesthetic: Lidocaine 1% Insertion side: Right Insertion site: Radial Catheter size: 20g Number of attempts: 2 Line secured: StatLock and tape Complications: None Juan Grossman MD Associated attestation - Tg Uriostegui MD - 11/23/2019 10:59 PM PDTFormatting of this note m ight be different from the original. PULMONARY ATTENDING ATTESTATION I was present for the critical portions of the procedure on 11-23-2019 as described in the n ote for this encounter. Time spent on procedure is outside any documented critical care time . TG URIOSTEGUI MD [facility] [address] [place] [id number] documented in this encounter Consult Notes Abbie Mack MD - 11/28/2019 2:57 PM PDTEndocrinology Consult Service Brief Non-Visit Note: Hospital Day:7 Assessment/Plan: Ms. Altman is a 54 year old woman with a history of lymphoma and current stage IV RCC c/b L2 pathologic fracture who presented to the ED for hypotension and tachycardia. Her TSH had been elevated in the past few months, with oncology uptitrating her levothyroxi ne in response, from 137 to 175 mcg daily over the past few months. She has had discordant T SH and free T4, with an elevated TSH of 13.4 in September, and a free T4 of 1.4. On admission her TSH was 6.77 with free T4 4.2. She is on cycle 3 of nivolumab/ipilimumab. 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 Cortisol on admission was 37.4. We are not aware of steroid use prior to this. She did rece annalee stress dose steroids later in that day, and these have been tapered off. There has been concern for central adrenal insufficiency given presenting symptoms of hypotension, nausea, and fatigue. Of note, she has presented with these symptoms on prior hospitalizations, and C ST was normal at that time with stimulated cortisol peak of 38. Aldosterone was 183 this hos pitalization, reducing concern for primary adrenal insufficiency, but central adrenal insuff iciency is possible from checkpoint inhibitors as well. Received notification from the primary team today that they anticipate discharge tomorrow. While it would be ideal to allow more time from a steroid taper, would recommend a cosyntrop in stim test in the morning to see whether or not she will require discharge on a physiologi c hydrocortisone dose. If cortisol response is at least 23 she should be able to discharge w ithout steroids, but less than this and she should continue 20 mg hydrocortisone daily until she can be reassessed Would hold levothyroxine on discharge. Recheck TSH and free T4 in [address] Peggy lozano is planning to follow up on this lab and can give recommendations for next steps. If it i s done outside of [facility] please have results routed to her inbox. Anticipate levothyroxine shawn l need to be restarted at a decreased dose. Abbie Mack MD Endocrinology Fellow Pager [phone] Patient discussed with attending roll capper Dr. Regan Funk. alla, Nash Osorio [facility] - 11/27/2019 8:09 PM PDTForm atting of this note might be different from the original. Pharmacy Services: Enoxaparin Anticoagulation Note Assessment/Plan: - Hank Altman is a 54 year old female anticoagulated with subcutaneous enoxaparin 80 mg every 12 hours for DVT/PE Monitoring: - Continue monitoring serum creatinine and urine output as ordered - Anti-Xa level monitoring indicated in this patient due to renal dysfunction. Anti-Xa leve l drawn 4 hours after 4th dose is subtherapeutic. Increase dose to 80 mg SQ every 12 hours. Redraw Anti-Xa level 4 hours after third dose on 11/29/19. - Continue monitoring for signs and symptoms of bleeding - Continue monitoring for signs of heparin induced thrombocytopenia (plt < 100k or decrease > 50% from baseline, new DVT after enoxaparin initiation), platelet count ordered daily wit h AM labs Holding therapy: - If planned surgery or procedure, hold enoxaparin dose at least 12-24 hours prior to proce dure, according to renal function Transition to other agents: - Plan to continue enoxaparin at current dose until transition to clinically appropriate al ternate agent (TBD) - Pharmacy Services will continue to follow and make recommendations. Please page clinical pharmacist [phone]) or call central inpatient pharmacy ([phone]) with questions Thank you for the consult, Nash Dodge, PharmD Pager#: [phone] Subjective/Objective: Allergies: Patient has no known allergies. Most recent weight: Weight: 88.5 kg (195 lb 3.2 oz) (03/22/20 1949) History of HIT/HAT/positive antibodies: no Bruising or bleeding report: None noted Overnight events: None Labs: Hemoglobin/hematocrit: 8.5/27/134 PLATELET COUNT (K/cu mm) Date Value 11/26/2019 134 (L) 11/25/2019 166 11/24/2019 238 CREATININE PLASMA (LAB) (mg/dL) Date Value 11/27/2019 2.02 (H) CREATININE, POC (mg/dL) Date Value 11/21/2019 3.7 (H) Current medications: acetaminophen (TYLENOL) tablet 500 mg, 500 mg, oral, Q8H atorvastatin (LIPITOR) tablet 20 mg, 20 mg, oral, QPM bisacodyL (DULCOLAX) suppository 10 mg, 10 mg, rectal, DAILY PRN [START ON 11/28/2019] enoxaparin (LOVENOX) injection 80 mg, 80 mg, subcutaneous, Q12H (Sched uled) [START ON 11/28/2019] hydrocortisone (CORTEF) tablet 20 mg, 20 mg, oral, BID [START ON 11/29/2019] hydrocortisone (CORTEF) tablet 20 mg, 20 mg, oral, DAILY hydrocortisone (CORTEF) tablet 30 mg, 30 mg, oral, BID HYDROmorphone (DILAUDID) injection 0.2-0.5 mg, 0.2-0.5 mg, intravenous, Q2H PRN lidocaine (LIDODERM) 5 % patch 1 patch, 1 patch, transdermal, Q24H melatonin tablet 3 mg, 3 mg, oral, HS PRN menthol-zinc oxide (CALAZIME) topical paste 0.2%-16.5%, , topical, QID PRN omeprazole (PRILOSEC) capsule 20 mg, 20 mg, oral, BID ondansetron (ZOFRAN) injection 4 mg, 4 mg, intravenous, Q12H PRN oxyCODONE (immediate release) (ROXICODONE) tablet 5-10 mg, 5-10 mg, oral, Q4H PRN polyethylene glycol (MIRALAX) packet 17 g, 17 g, oral, BID [START ON 11/29/2019] scopolamine (TRANSDERM-SCOP) 1 mg over 3 days 1 patch, 1 patch, transd ermal, ONCE senna-docusate (SENOKOT S) 8.6-50 mg 1 tablet, 1 tablet, oral, BID Current contraindicated/interacting medications (NSAIDs, IM injections, etc): None Other anticoagulants/anti-platelet agents: None Previous anticoagulation: yes - patient anticoagulated with enoxaparin previously Assessment/Plan: Added to top of note ranci Soler [facility] - 11/26/2019 12:24 PM PDTFormatting of this note might be differe nt from the original. Pharmacy Services: Enoxaparin Anticoagulation Note Assessment/Plan: - Hank Altamn is a 54 year old female anticoagulated with subcutaneous enoxaparin 90 mg every 24 hours for DVT/PE Monitoring: - Continue monitoring serum creatinine and urine output as ordered - Anti-Xa level monitoring indicated in this patient due to renal dysfunction. Draw Anti-Xa level 4 hours after 4 dose on 11/26. - Continue monitoring for signs and symptoms of bleeding - Continue monitoring for signs of heparin induced thrombocytopenia (plt < 100k or decrease > 50% from baseline, new DVT after enoxaparin initiation), platelet count ordered daily wit h AM labs Holding therapy: - If planned surgery or procedure, hold enoxaparin dose at least 12-24 hours prior to proce dure, according to renal function - Pharmacy Services will continue to follow and make recommendations. Please page clinical pharmacist [phone]) or call central inpatient pharmacy ([phone]) with questions Allergies: Patient has no known allergies. Most recent weight: Weight: 85 kg (187 lb 6.3 oz) (11/21/192124) History of HIT/HAT/positive antibodies: no Bruising or bleeding report: None noted Overnight events: None Labs: Hemoglobin/hematocrit: 8.5/27 PLATELET COUNT (K/cu mm) Date Value 11/26/2019 134 (L) 11/25/2019 166 11/24/2019 238 CREATININE PLASMA (LAB) (mg/dL) Date Value 11/26/2019 2.29 (H) CREATININE, POC (mg/dL) Date Value 11/21/2019 3.7 (H) Current medications: acetaminophen (TYLENOL) tablet 500 mg, 500 mg, oral, Q8H atorvastatin (LIPITOR) tablet 20 mg, 20 mg, oral, QPM bisacodyL (DULCOLAX) suppository 10 mg, 10 mg, rectal, DAILY PRN enoxaparin (LOVENOX) injection 90 mg, 1 mg/kg, subcutaneous, Q24H [START ON 11/28/2019] hydrocortisone (CORTEF) tablet 20 mg, 20 mg, oral, BID [START ON 11/29/2019] hydrocortisone (CORTEF) tablet 20 mg, 20 mg, oral, DAILY [START ON 11/27/2019] hydrocortisone (CORTEF) tablet 30 mg, 30 mg, oral, BID hydrocortisone (CORTEF) tablet 40 mg, 40 mg, oral, BID HYDROmorphone (DILAUDID) injection 0.2-0.5 mg, 0.2-0.5 mg, intravenous, Q2H PRN lidocaine (LIDODERM) 5 % patch 1 patch, 1 patch, transdermal, Q24H melatonin tablet 3 mg, 3 mg, oral, HS PRN menthol-zinc oxide (CALAZIME) topical paste 0.2%-16.5%, , topical, QID PRN norepinephrine (LEVOPHED) 8mg/250 mL (0.032 mg/mL) IV infusion (ADC), 0.02-0.2 mcg/kg/min, intravenous, CONTINUOUS omeprazole (PRILOSEC) capsule 20 mg, 20 mg, oral, BID ondansetron (ZOFRAN) injection 4 mg, 4 mg, intravenous, Q12H PRN oxyCODONE (immediate release) (ROXICODONE) tablet 5-10 mg, 5-10 mg, oral, Q4H PRN polyethylene glycol (MIRALAX) packet 17 g, 17 g, oral, BID senna-docusate (SENOKOT S) 8.6-50 mg 1 tablet, 1 tablet, oral, BID Current contraindicated/interacting medications (NSAIDs, IM injections, etc): None Other anticoagulants/anti-platelet agents: None Katalina Soler, PharmD, BCPS, BCCCP . Tere ROACH, Johnathan ti - 11/26/2019 11:55 AM PDTEndocrinology Consult Service Brief Non-Visit Note: Hospital Day:5 Assessment/Plan: 54 F PMHx lymphoma and current stage IV RCC c/b L2 pathologic fracture s/p kyphoplasty 08/2019 who was found to have incidental L2 fracture on surveillance CT referre d in to ED for hypotension. Now with hyperthyroidism and symptomatic. 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 Course c/b extensive PE, JONO and hyeprkalemi a. Endocrinopathies can occur in both CTLA-4 and PD1 immunotherapies, both centrally and at th e level of the target organ. 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 Overall, patient's T4 continues to trend down. PTU/Methimazole is unlikely to be helpful in the setting of destructive thyroiditis since hormone is already released. Mare ent hypotensive and tachycardic 11/23 to ICU and found to have extensive PE s/p TPA with impr ovement in symptoms and vitals. At this point with downtrending thyroid hormone do not think it is significant factor in her hemodynamic instability. Steroids are for inflammation for thyroiditis and also concern that checkpoint inhibitors can cause adrenal insufficiency so w ould want to check cortisol before stopping steroids (usually secondary and not primary adre nal insufficiency). Aldosterone was 183 indicating patient does not have primary adrenal ins ufficiency. 11/20: TSH 6.77 free T4 4.2 cortisol 31 HC 100 mg IV q8h BPs 70-90 PTU 200 x 1 cholestyr amine 11/21: LFT okay NA 134 K 5.8 WBC down to 3.36 TSH 3.26 T4 3.3 normal TTE. Cortisol 37.4 11/22: FT4 2.7 (from 3.3) TSH 3.44, TPO Ab 0.3. 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 11/25: T4 1.8 off norepi BP 90/40 received IVF boluses which improved BP, transferring to ma oor - if continues to be hemodynamically stable - 11/25 hydrocortisone 40 mg BID PO - 11/26 hydrocortisone 30 mg BID PO - 11/27 hydrocortisone 20 mg BID PO - 11/28 hydrocortisone 20 mg qday PO - 11/29 AM cortisol before hydrocortisone dosing if still inpatient (otherwise will check o utpatient) - if patient decompensates then would put back on hydyrocortisone 50 mg q8h IV - agree with aggressive management in this patient with hyperthyroidism that is expected to resolve within a few weeks and then can restart checkpoint inhibitor therapy - trend T4 every other day (should have free T4 on day of discharge checked) - follow up renin:sophia values - still pending - hold levothyroxine on discharge and endocrinology will resume once free T4 is low normal - labs 1 week post discharge in AM before taking hydrocortisone (orders in; will my chart p atient) - outpatient endocrine consult already placed Thank you for this consult. The endocrine consult team will continue to follow peripherally . Peggy Yoon Endocrine Fellow Pager [phone] I have staffed the patient with consult attending Dr. Hall who agrees with the assessment and recommendations as detailed above. Peggy Carranza MD - 2:51 PM PDTEndocrinology Consult Service Brief Non-Visit Note: Hospital Day:4 Assessment/Plan: 54 F PMHx lymphoma and current stage IV RCC c/b L2 pathologic fracture s/p kyphoplasty 08/2019 who was found to have incidental L2 fracture on surveillance CT referre d in to ED for hypotension. Now with hyperthyroidism and symptomatic. 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 Course c/b extensive PE, JONO and hyeprkalemi a. Endocrinopathies can occur in both CTLA-4 and PD1 immunotherapies, both centrally and at th e level of the target organ. 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 Overall, patient's T4 continues to trend down. PTU/Methimazole is unlikely to be helpful in the setting of destructive thyroiditis since hormone is already released. Mare ent hypotensive and tachycardic 11/23 to ICU and found to have extensive PE s/p TPA with impr ovement in symptoms and vitals. At this point with downtrending thyroid hormone do not think it is significant factor in her hemodynamic instability. Steroids are for inflammation for thyroiditis and also concern that checkpoint inhibitors can cause adrenal insufficiency so w ould want to check cortisol before stopping steroids (usually secondary and not primary adre nal insufficiency). 11/20: TSH 6.77 free T4 4.2 cortisol 31 HC 100 mg IV q8h BPs 70-90 PTU 200 x 1 cholestyr amine 11/21: LFT okay NA 134 K 5.8 WBC down to 3.36 TSH 3.26 T4 3.3 normal TTE. Cortisol 37.4 11/22: FT4 2.7 (from 3.3) TSH 3.44, TPO Ab 0.3. 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 - can dc cholestyramine since having issues with nausea - decrease hydrocortisone to 50 mg q12h today IV - if continues to be hemodynamically stable tomorrow - 11/25 hydrocortisone 40 mg BID PO - 11/26 hydrocortisone 30 mg BID PO - 11/27 hydrocortisone 20 mg BID PO - 11/28 hydrocortisone 20 mg qday PO - 11/29 AM cortisol before hydrocortisone dosing if still inpatient (otherwise will check o utpatient) - if patient decompensates then would put back on hydyrocortisone 50 mg q8h IV - agree with aggressive management in this patient with hyperthyroidism that is expected to resolve within a few weeks and then can restart checkpoint inhibitor therapy - trend T4 daily or every other day (should have free T4 on day of discharge checked) - follow up renin:sophia values - still pending - hold levothyroxine on discharge and endocrinology will resume once free T4 is low normal - labs 1 week post discharge in AM before taking hydrocortisone (orders in; will my chart p atient) - outpatient endocrine consult already placed Thank you for this consult. The endocrine consult team will continue to follow. Peggy Yoon Endocrine Fellow Pager [phone] I have staffed the patient with consult attending Dr. Hall who agrees with the assessment and recommendations as detailed above. Peggy Carranza MD - 11:19 AM PDTEndocrinology Consult Service Brief Non-Visit Note: Hospital Day:3 Assessment/Plan: 54 F PMHx lymphoma and current stage IV RCC c/b L2 pathologic fracture s/p kyphoplasty 08/2019 who was found to have incidental L2 fracture on surveillance CT referre d in to ED for hypotension. Now with hyperthyroidism and symptomatic. 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 Course c/b extensive PE, JONO and hyeprkalemi a. Endocrinopathies can occur in both CTLA-4 and PD1 immunotherapies, both centrally and at th e level of the target organ. 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 Overall, patient's T4 continues to trend down. PTU/Methimazole is unlikely to be helpful in the setting of destructive thyroiditis since hormone is already released. Pat ient hypotensive and tachycardic overnight to ICU and found to have extensive PE s/p TPA wit h improvement in symptoms and vitals. At this point with downtrending thyroid hormone do not think it is significant factor in her hemodynamic instability. - agree with aggressive management in this patient with hyperthyroidism that is expected to resolve within a few weeks and then can restart checkpoint inhibitor therapy - restart cholestyramine 4 g daily to help reduce thyroid level - hydyrocortisone 50 mg q8h till off pressors and BP stable and will taper after that - trend T4 daily - follow up renin:sophia values - hold levothyroxine on discharge and endocrinology will resume once free T4 is low normal - labs 1 week post discharge at [facility] (labs ordered by Peggy Yoon) - outpatient endocrine consult already placed Thank you for this consult. The endocrine consult team will continue to follow. Peggy Yoon Endocrine Fellow Pager [phone] I have staffed the patient with consult attending Dr. Hall who agrees with the assessment and recommendations as detailed above. Shahid Edwards M D - 11/23/2019 7:42 PM PDT Interventional Radiology Consult Note INTERVENTIONAL RADIOLOGY CONSULTATION Consult Date of Service: 11/23/2019 Requesting Provider: Tg Uriostegui MD Interventional Radiology Attending: Sagar Michaels MD Reason for Consult: Possible PE Patient Location: 7A ICU (Room 12/06) Assessment: 54 y.o. female with metastatic RCC now unstable with hypotension and acute hypoxic respirat ory failure in setting of LLE pain, redness and swelling and new RBBB, concerning for pulmon sukhwinder embolism. Recommendation: -Recommend CTA PE study, include abd/pelvis in venous phase. -Recommend goals of care discussion with patient and family. Should there be pulmonary embo li, the utility of catheter directed therapy is questionable taking into account the risk of the procedure, the effectiveness in light of potential chronically elevated right heart pre ssures at baseline (elevated on ECHO from 08/26/19), and concern for the extent of tumor thr ombus involvement of the left renal vein and possibly extension into the IVC. -Continue supportive measures, including heparin gtt. Systemic thrombolysis could be consid ered if CTA PE is positive for PE and patient remains unstable. However there is significant bleeding risk. Would recommend discussing with patient and family prior to administration. HPI: 56 y.o. female 54 yo F with h/o Hodgkin's lymphoma s/p CHOPP/RT in 2002 c/b hypothyroidism and stage IV RCC c/b L2 pathologic Fx s/p kyphoplasty who was admitted for hypotension (80/3 0-50 mmHg) and JONO, found to have elevated T4 and TSH concerning for thyrotoxicosis, likely related to immunotherapy (ipilimumab and nivolumab). Now code blue called around 18:00 for acute-onset LLE pain, swelling, shortness of breath. Vitals notable for new atrial fibrillation with RVR, rates between 110-140 bpm, and progress annalee hypotension (as low as SBP 70-80 mmHg). EKG with new RBBB. c/b acute hypoxic respirator y failure in s/o LLE pain, redness and swelling and new RBBB, concerning for pulmonary embol ism. Has been transferred to MICU, now started on pressors (NE). When evaluated art line SBPs in 60-70s, HR 120s, currently getting central line placement. Unable to examine patient. ROS: The review of systems performed was negative except as per HPI. Current Medications: Medications Continuous Medication Dose/Rate, Route, Frequency Last Action heparin in D5W 25,000 Units/250 mL (100 Units/mL) IV infusion (RTU) 1,550 Units/hr, 15.5 m L/hr, IV, CONTINUOUS New Ba/18 183 norepinephrine (LEVOPHED) 8mg/250 mL (0.032 mg/mL) IV infusion (ADC) 0.1 mcg/kg/min, 15.94 mL/hr, IV, CONTINUOUS Rate/Dose Change: 11/22 1929 Scheduled Medication Dose/Rate, Route, Frequency Last Action alteplase (ACTIVASE) No Dose/Rate Ordered atorvastatin (LIPITOR) tablet 20 mg 20 mg, oral, QPM Given: 11/21 2210 hydrocortisone sodium succinate (PF) (SOLU-CORTEF) injection 50 mg 50 mg, IV, Q12H ([place] led) Given: 11/23 903 lidocaine (LIDODERM) 5 % patch 1 patch 1 patch, TD, Q24H Applied Patch: 11/22 2 lidocaine PF (XYLOCAINE MPF) 20 mg/mL (2 %) injection No Dose/Rate Ordered omeprazole (PRILOSEC) capsule 20 mg 20 mg, oral, BID Given: 11/22 902 senna-docusate (SENOKOT S) 8.6-50 mg 1 tablet 1 tablet, oral, BID Ordered PRN Medication Dose/Rate, Route, Frequency Last Action acetaminophen (TYLENOL) tablet 650 mg 650 mg, oral, Q4H PRN Ordered bisacodyL (DULCOLAX) suppository 10 mg 10 mg, rect, DAILY PRN Ordered heparin bolus from continuous infusion 3,400 Units 40 Units/kg, IV, NEEDED (BOLUS) Orde red heparin bolus from continuous infusion 6,800 Units 80 Units/kg, IV, NEEDED (BOLUS) Orde red HYDROmorphone (DILAUDID) injection 0.2-0.5 mg 0.2-0.5 mg, IV, Q2H PRN Ordered melatonin tablet 3 mg 3 mg, oral, HS PRN Given: 11/20 2332 menthol-zinc oxide (CALAZIME) topical paste 0.2%-16.5% No Dose/Rate, top, QID PRN Ordered ondansetron (ZOFRAN) injection 4 mg 4 mg, IV, Q12H PRN Given: 11/21 901 oxyCODONE (immediate release) (ROXICODONE) tablet 5 mg 5 mg, oral, Q4H PRN Given: 11/22 14 51 polyethylene glycol (MIRALAX) packet 34 g 34 g, oral, TID PRN Ordered Allergies: No Known Allergies Past Medical History: Past Medical History: Diagnosis Date Hodgkin's disease (HCC) 2001 CHOPP and radiation therapy Hypercalcemia of malignancy Hypertension Hypothyroidism Hypothyroidism Pathologic compression fracture of lumbar vertebra, initial encounter ([facility]) Renal cell carcinoma (HCC) clear cell carcinoma of left kidney, 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, lungs, invasion of left pulm onary artery, L2 metastatic spread Patient Active Problem List Diagnosis Date Noted Hyperthyroidism 11/22/2019 Hypotension, unspecified hypotension type 11/21/2019 Closed compression fracture of body of L1 vertebra ([facility]) 11/21/2019 Hypothyroidism, unspecified type 11/21/2019 Renal cell carcinoma, unspecified laterality ([facility]) 11/21/2019 Hypotension 08/31/2019 Proteinuria 08/30/2019 Hematuria 08/30/2019 JONO (acute kidney injury) ([facility]) 08/30/2019 Elevated blood uric acid level 08/30/2019 Normocytic anemia 08/30/2019 Leukopenia 08/30/2019 Closed compression fracture of L2 lumbar vertebra, initial encounter ([facility]) 08/25/2019 Renal cell carcinoma of left kidney ([facility]) 08/25/2019 Hyperkalemia 08/24/2019 Hypothyroidism 08/24/2019 Compression fracture of L2 vertebra ([facility]) 08/24/2019 Renal cell adenocarcinoma ([facility]) 08/23/2019 Hypercalcemia of malignancy 08/23/2019 Surgical History: No date: C SECTION Comment: 2000: KNEE SURGERY; Left No date: mediport insertion Comment: placed in left chest site in 2001 w/ removal in 2002 Social History: Social History Tobacco Use Smoking status: Never Smoker Smokeless tobacco: Never Used Substance Use Topics Alcohol use: Not Currently Drug use: Never Family History: Family History Problem Relation Diabetes Mother Diabetes Father Hypertension Sister Diabetes Sister Last 24 hour min/max Temp: 36 C (96.8 F) Temp Min: 36 C (96.8 F) Max: 36.7 C (98.1 F) Pulse: 127 Pulse Min: 93 Max: 137 Resp: 24 Resp Min: 16 Max: 28 BP: 75/57 BP Min: 75/57 Max: 110/62 SpO2: 100 % SpO2 Min: 93 % Max: 100 % Body mass index is 34.27 kg/m. Physical Examination: Deferred as patient actively having procedure (line placement) at time of evaluation. Date 11/22/190 - 11/23/19 0659 11/23/19 07 - 11/24/19 0659 Shift 6037-0620 24 Hour Total 7576-0768 5028-9535 9248-3186 24 Hour Total INTAKE P.O. 620 580 580 I.V. 10 10 1000 1010 IV Piggyback 1000 Shift Total 1630 10 1580 1590 OUTPUT Urine(mL/kg/hr) 300(0.4) 1625(0.8) 850(1.3) 325 1175 Shift Total(mL/kg) 300(3.5) 1625(19.1) 850(10) 325(3.8) 1175(13.8) Weight (kg) 85 85 85 85 85 85 Date 11/23/19 07 - 11/24/19 0659 Shift 4657-5789 8036-8438 3782-1986 24 Hour Total INTAKE P.O. 580 580 I.V. 10 1000 1010 Shift Total 10 1580 1590 OUTPUT Urine(mL/kg/hr) 850(1.3) 325 1175 Shift Total(mL/kg) 850(10) 325(3.8) 1175(13.8) Weight (kg) 85 85 85 85 Labs: Lab Results Component Value Date WBC 8.41 11/23/2019 HB 11.5 11/23/2019 HCT 35.3 11/23/2019 PLT 262 11/23/2019 MCV 88.3 11/23/2019 RDW 55.5 11/23/2019 Lab Results Component Value Date NA 135 11/23/2019 K 5.9 11/23/2019 CL 113 11/23/2019 BICARB 13 11/23/2019 BUN 69 11/23/2019 CR 2.76 11/23/2019 GLU 130 11/23/2019 CA 8.4 11/23/2019 AST 63 11/23/2019 ALT 29 11/23/2019 AP 100 11/23/2019 TBILI 0.5 11/23/2019 TP 5.7 11/23/2019 ALB 1.8 11/23/2019 ANIONGAP 9 11/23/2019 ANIONALBCOR 14 11/23/2019 Lab Results Component Value Date APTT 25.2 (L) 11/23/2019 FIBRINOGEN 488 (H) 08/25/2019 Lab Results Component Value Date INRPT 1.11 11/23/2019 Imaging: Independent review of CT CAP 11/21/19 noncontrast: Large infiltrative left renal mass/RCC with likely extent into the left renal vein. Suggest ed further by extensive venous collaterals. Numerous retroperitoneal foster metastasis. Bone metastasis. SHAHID GATES MD Associated attestation - Shaggy Michaels MD - 11/24/2019 10:22 AM PDTAttending Attestatio n: I have seen and examined the patient. I concur with the findings in the history, physical exam, assessment and plan as outlined by the resident/fellow below, and have edited the note accordingly. Shaggy Michaels MD [facility] Department of Interventional Radiology [facility]ly [facility], [facility] Radha Beach MD - 11/23/2019 8:57 AM PDT Endocrinology Consult Service Brief Non-Visit Note: Hospital Day:2 Assessment: Ms. Altman is a 54 yo F with lymphoma & stage IV RCC, admitted for hypotension in the setting of imaging for pathologic fractures. 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 Endocrinopathies can occur in both CTLA-4 and PD1 immunotherapies, both centrally and at th e level of the target organ. 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 Despite normal cortisol values prior to steroids, continuing on hydrocortisone for possibility of concomitant AI. BPs have been stable on current hydrocortisone dosing ( 50mg IV q12hr). Plan will be to taper glucocorticoids to low dose PO hydrocortisone 20mg pr ior to discharge, and monitor clinically. Overall, patient's T4 continues to trend down. PTU/Methimazole is unlikely to be helpful in the setting of destructive thyroiditis. Okay to continue cholestyramine today, but can disc ontinue tomorrow and continue to trend. Once her FT4 is low, can restart 100mcg levothyroxin e daily-- we will likely do this as as outpatient. Recommendations: -discontinue cholestyramine after today's dose -cont hydrocortisone 50mg IV BID today -monitor tonight, if stable overnight, d/c IV steroids and start PO hydrocortisone 20mg [place] ly tomorrow AM -plan is to d/c on 20mg PO hydrocortisone daily, with repeat AM cortisol, TSH & free T4 in 1 week prior to taking AM hydrocortisone dose (lab orders are placed and outpatient endocrin ology consult placed by our service) -Endocrine team will contact Heme/Onc regarding adverse reaction -follow up renin:sophia values -recheck free T4 in the AM -hold levothyroxine on discharge, Endocrinology will resume once free T4 is low Thank you for this consult. The endocrine consult team will continue to follow. Radha Beach MD PGY3 Internal Medicine pager [phone] I have staffed the patient with consult attending Dr. Hall who agrees with the assessment and recommendations as detailed above. Interval events: --Na 136 (lowest 134 yesterday) --K+ 5.6 --NAGMA, Bicarb 14, Cl 114 --JONO improving (3.2-->2.6) --on hydrocortisone 50mg IV q12 --blood pressure is stable and doing well Inpatient Medications atorvastatin (LIPITOR) tablet 20 mg, 20 mg, oral, QPM bisacodyL (DULCOLAX) suppository 10 mg, 10 mg, rectal, DAILY PRN cholestyramine-aspartame (QUESTRAN LIGHT) packet 4 g, 4 g, oral, DAILY heparin injection 5,000 Units, 5,000 Units, subcutaneous, Q12H (Scheduled) hydrocortisone sodium succinate (PF) (SOLU-CORTEF) injection 50 mg, 50 mg, intravenous, Q12 H (Scheduled) lidocaine (LIDODERM) 5 % patch 1 patch, 1 patch, transdermal, Q24H melatonin tablet 3 mg, 3 mg, oral, HS PRN omeprazole (PRILOSEC) capsule 20 mg, 20 mg, oral, BID ondansetron (ZOFRAN) injection 4 mg, 4 mg, intravenous, Q12H PRN oxyCODONE (immediate release) (ROXICODONE) tablet 5 mg, 5 mg, oral, Q4H PRN polyethylene glycol (MIRALAX) packet 34 g, 34 g, oral, TID PRN senna-docusate (SENOKOT S) 8.6-50 mg 1 tablet, 1 tablet, oral, BID Objective: Last Vitals: BP 105/64 (BP Location: Left upper arm, Patient Position: Lying on back) | Pu lse 103 | Temp 36.4 C (97.5 F) (Oral) | Resp 18 | Ht 1.575 m (5' 2") | Wt 85 kg (187 lb 6.3 oz) | SpO2 98% | BMI 34.27 kg/m | BSA 1.93 m O2 Delivery Device: None (room air) (11/23/19 0353) Last Vitals: BP 105/64 (BP Location: Left upper arm, Patient Position: Lying on back) | Pu lse 103 | Temp 36.4 C (97.5 F) (Oral) | Resp 18 | Ht 1.575 m (5' 2") | Wt 85 kg (187 lb 6.3 oz) | SpO2 98% | BMI 34.27 kg/m | BSA 1.93 m 24 Hour Vital Min/Max: Systolic (24hrs), Av , Min:83 , Max:110 Diastolic (24hrs), Av, Min:51, Max:64 Pulse Min: 103 Max: 118 Temp Min: 36.4 C (97.5 F) Max: 36.7 C (98.1 F) Resp Min: 16 Max: 18 SpO2 Min: 95 % Max: 98 % Intake/Output Summary (Last 24 hours) at 11/23/2019 0859 Last data filed at 11/23/2019 0815 Gross per 24 hour Intake 1620 ml Output 2225 ml Net -605 ml Labs: CBC with diff last 72 hours (or 3 results) - Refreshable Recent Labs 11/21/19 0850 11/22/19 0414 11/23/19 0446 WBC 5.64 3.36* 4.86 HB 12.6 10.9* 10.1* HCT 39.4 35.2* 31.2* PLT 221 202 187 NEUTROPERC 71.8* 78.2* 82.7* LYMPHPERC 13.5* 16.1* 10.3* MONOPERC 8.2 4.2 6.4 BASOPERC 1.4 0.3 0.2 EOSPERC 4.6* 0.6* 0.0* Recent Labs 11/21/19 0850 11/21/19 1909 11/22/19 0414 11/22/19 1423 11/22/19 1745 11/22/19 2140 11/23/19 0154 11/23/19 0446 NA 130* < > 136 134* < > 135* -- -- -- -- 137 136 K 5.7* < > 5.0 5.8* < > 6.0* -- -- < > 5.7* 5.5* 5.6* CL 103 < > 110* 111* < > 111* -- -- -- -- 114* 114* BICARB 15* < > 16* 11* < > 15* -- -- -- -- 14* 14* BUN 87* < > 78* 77* < > 75* -- -- -- -- 69* 64* CR 3.20* < > 2.92* 3.13* < > 2.89* -- -- -- -- 2.76* 2.59* GLU 108* < > 72 88 < > 114* < > 78 -- -- 112* 104* CA 9.4 < > 8.1* 8.4* < > 8.7 -- -- -- -- 8.4* 8.5* AST 54* -- 44* 46* -- -- -- -- -- -- -- -- ALT 23 -- 19 19 -- -- -- -- -- -- -- -- AP 107* -- 91 93 -- -- -- -- -- -- -- -- TBILI 0.5 -- 0.5 0.5 -- -- -- -- -- -- -- -- TP 6.0* -- 5.0* 5.2* -- -- -- -- -- -- -- -- ALB 1.9* -- 1.5* 1.6* -- -- -- -- -- -- -- -- ANIONGAP 12* < > 10 12* < > 9 -- -- -- -- 9 8 ANIONALBCOR 17* -- 16* 18* -- -- -- -- -- -- -- -- < > = values in this interval not displayed. Imaging: No results found for: CXR Farrukh Gonzalez MD - 11/21 2:09 PM PDTAssociated Order(s): IP CONSULT TO ENDOCRINOLOGY, DIABETES & METABOLISMFor matting of this note might be different from the original. Endocrinology Initial Consult Note Assessment/Recommendations: Hank Altman is a 54 yo woman with hx lymphoma and current s tage IV RCC c/b L2 pathologic fracture s/p kyphoplasty 08/2019 who was found to have inciden evert L2 fracture on surveillance CT today, ultimately referred in to ED for hypotension. Bone scan revealed likely lesion responsible for L2 fracture. She underwent kyphoplasty with dem onstrable improvement in her back pain. Went to onc clinic for routine appt today. Asymptoma tic but referred to ED for very low blood pressure. Patient on cycle 3 of nivolumab/ipilimum ab. Found to be hyperthyroid. Cortisol 31 prior to steroids. 11/20 TSH 6.77 free T4 4.2 and T3 total 86 and today TSH 3.26 and T4 3.3. 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 This also explains why TSH was initially high and T4 also high (T4 probab ly released without chance yet for TSH to be suppressed). Patient with high T4 but not parti cularly symptomatic. Has tachycardia and hypotension which is somewhat improved. Since likel y destructive thyroiditis further use of PTU/MMI likely not useful since preformed thyroid h ormone already released. Cholestyramine might help with lowering thyroid hormone faster but patient having hard time tolerating this. Checkpoint inhibitors can also be associated with adrenal insufficiency as well so will be cautious in tapering steroids. Usually it is second sukhwinder adrenal insufficiency though primary can occur. Patient is on enough steroids for minera locorticoid effect to take place so do not think hyperkalemia is from hypoaldosteronism but will assess for this. - hold levothyroxine - restart when T4 drops low (likely restart at 100 mcg) - trend TSH daily - trend T4 daily - f/u TPO antibodies - f/u TSI (thyroid stimulating immunoglobulin) - unlikely to be positive since likely etiol ogy is checkpoint inhibitors - taper hydrocortisone to 100 mg q12 h x 1 day 11/21 50 mg q12h x 1 day 11/22 if hemodynamically stable will determine further taper - f/u AM sophia and renin - cholestyramine 4 g once a day (only inpatient do not use on dc) - outpatient endocrine consult - sending message to heme onc about this adverse reaction as immunotherapy should be held t ill resolution of hyperthyroidism and stabilization Peggy Yoon MD (pager [phone]) - RN please page primary team first Endocrinology Fellow Reason for Consult: hyperthyroidism Consult Attending: Isabel Requesting Attending: Jose Luis Segura MD Brief HPI: Patient Hodgkins Lymphoma [id number]. Patient had radiation to chest under chin to under tran ast bone. Radiation caused low thyroid. Patient has been on thyroid medication since 2002. 3 weeks ago dosage increased to 175 mcg from 150/135 mcg. No labs to check thyroid since [facility] that change. Patient has lost 30 pounds starting 08/2019. No hand shaking or tremors. Fat igue. Patient had some heart racing and palpations at home during immunotherapy treatment. P atient had another instance since then. Weakness in legs. No night sweats. NO swelling in th e front of neck. Feet swollen. No trouble swallowing. No change in voice. Had froggy voice s vikram radiation in 2002 but no change recently in voice. Mother with some thyroid issues but not sure what thyroid issues she had. She will try to find out. No one with thyroid cancer i n the family. No non contrast imaging. Only imaging is at [facility]. No extra doses of thyroid medication that she took. Patient is through menopause at age 52 approximately. No lightheaded dizziness with BP being low. ROS: A complete 13 system ROS done and notable for what was mentioned in HPI all other syst ems negative. PMHx Past Medical History: Diagnosis Date Hodgkin's disease (HCC) 2002 CHOPP and radiation therapy Hypercalcemia of malignancy Hypertension Hypothyroidism Hypothyroidism Pathologic compression fracture of lumbar vertebra, initial encounter (HCC) Renal cell carcinoma (HCC) clear cell carcinoma of left kidney, 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, lungs, invasion of left pulm onary artery, L2 metastatic spread PSHx: Past Surgical History Procedure Laterality Date C section 2000 Knee surgery Left 1980 Mediport insertion placed in left chest site in 2001 w/ removal in 2002 SOCHx: reports that she has never smoked. She has never used smokeless tobacco. She report s previous alcohol use. She reports that she does not use drugs. FMHx: Family History Problem Relation Diabetes Mother Diabetes Father Hypertension Sister Diabetes Sister Outpatient Medications Prior to Admission Medications Prescriptions cholecalciferol 50,000 unit oral capsule Sig: Take 1 capsule by mouth once daily. Indications: vitamin D deficiency (high dose thera py) Patient taking differently: Take 50,000 Units by mouth every seven days. Indications: gonzales min D deficiency (high dose therapy) levothyroxine 175 mcg oral tablet Sig: Take 1 tablet by mouth before breakfast. lovastatin 20 mg oral tablet Sig: Take 20 mg by mouth once daily in the evening. Administer with evening meal. omeprazole 20 mg oral capsule,delayed release(DR/EC) Sig: Take 1 capsule by mouth two times daily. Administer 30 to 60 minutes before meals oxyCODONE (immediate release) 5 mg oral tablet Sig: Take 1 tablet by mouth every four hours as needed for breakthrough pain (1 to 2 tablet s PO every 4 hours as needed for breakthough pain). Patient taking differently: Take 15 mg by mouth every six hours as needed for breakthrough pain (1 to 2 tablets PO every 4 hours as needed for breakthough pain). Facility-Administered Medications: None Inpatient Medications atorvastatin (LIPITOR) tablet 20 mg, 20 mg, oral, QPM bisacodyL (DULCOLAX) suppository 10 mg, 10 mg, rectal, DAILY PRN cholestyramine-aspartame (QUESTRAN LIGHT) packet 4 g, 4 g, oral, QID heparin injection 5,000 Units, 5,000 Units, subcutaneous, Q12H (Scheduled) hydrocortisone sodium succinate (PF) (SOLU-CORTEF) injection 100 mg, 100 mg, intravenous, Q 8H lidocaine (LIDODERM) 5 % patch 1 patch, 1 patch, transdermal, Q24H melatonin tablet 3 mg, 3 mg, oral, HS PRN omeprazole (PRILOSEC) capsule 20 mg, 20 mg, oral, BID ondansetron (ZOFRAN) injection 4 mg, 4 mg, intravenous, Q12H PRN oxyCODONE (immediate release) (ROXICODONE) tablet 5 mg, 5 mg, oral, Q4H PRN polyethylene glycol (MIRALAX) packet 34 g, 34 g, oral, TID PRN senna-docusate (SENOKOT S) 8.6-50 mg 1 tablet, 1 tablet, oral, BID No Known Allergies O: Last Vitals: BP 93/51 (BP Location: Left upper arm, Patient Position: Lying on back) | Pulse 107 | Temp 36.6 C (97.9 F) (Oral) | Resp 16 | Ht 1.575 m (5' 2") | Wt 85 kg ( 187 lb 6.3 oz) | SpO2 97% | BMI 34.27 kg/m | BSA 1.93 m 24 Hour Vital Min/Max: Systolic (24hrs), Av , Min:76 , Max:146 Diastolic (24hrs), Av, Min:38, Max:99 Pulse Min: 102 Max: 119 Temp Min: 36.3 C (97.3 F) Max: 36.7 C (98.1 F) Resp Min: 16 Max: 18 SpO2 Min: 97 % Max: 100 % Intake/Output Summary (Last 24 hours) at 11/22/2019 1409 Last data filed at 11/22/2019 1300 Gross per 24 hour Intake 2935 ml Output 1500 ml Net 1435 ml Physical Exam: General: NAD, pleasant, conversant Neck: supple, no thyromegaly, no thyroid nodules, no asymmetry Respiratory: CTAB, normal effort Psychiatric: affect, mood and behavior normal Neuro: no tremors Skin: nl temp Labs No results found for: A1C No results for input(s): CHOL, LDL, HDL, TRI in the last 8640 hours. Recent Labs 11/21/19 0850 11/21/19 1909 11/22/19 0414 AST 54* 44* 46* ALT 23 19 19 TBILI 0.5 0.5 0.5 AP 107* 91 93 ALB 1.9* 1.5* 1.6* TP 6.0* 5.0* 5.2* Recent Labs 11/21/19 0850 11/21/19 1909 11/22/19 0414 11/22/19 0719 11/22/19 0736 11/22/19 1042 GLU 108* < > 72 88 91 81 108* BUN 87* < > 78* 77* -- -- 76* CR 3.20* < > 2.92* 3.13* -- -- 2.92* ALB 1.9* -- 1.5* 1.6* -- -- -- CA 9.4 < > 8.1* 8.4* -- -- 8.4* NA 130* < > 136 134* -- -- 136 K 5.7* < > 5.0 5.8* -- -- 5.6* CL 103 < > 110* 111* -- -- 113* BICARB 15* < > 16* 11* -- -- 13* < > = values in this interval not displayed. Lab Results Component Value Date TSH 3.26 11/22/2019 TSH 6.77 11/21/2019 TSH 13.70 10/31/2019 Imaging: n/a I saw and evaluated the patient. I agree with the findings and plan of care as documented i n the residents/fellows note. Farrukh Hall MD Endocrinology, Diabetes and Clinical Nutrition [address] [place] [id number] Tres Sharp MD - 11/22/2019 8:51 AM PDTAssociated Order(s): IP CONSULT TO MEDICAL ONCOLOGYFormatting of is note might be different from the original. Inpatient Oncology - New consult Consult attending physician: Jacky Brand MD Reason for consult: Renal vein thrombosis - Management Recommendations Co-Management of pt with Stage IV clear cell renal carcinoma on ipi/nivo HPI: Pt is a pleasant 54 you undergoing nivolumab/ipilimumab therapy for Stage IV RCC. She was i n clinic to receive cycle 4 of her immunotherapy when she was noted to be profoundly hypoten sive. She had some weakness and very mild pre-syncopal symptoms, but denies POE, vision calderon es, focal neuro findings, CP/SOB, poor PO intake, new unilateral extremity swelling, cough, f/c/ns, tremors. She has had chronic ble leg swelling months in duration - no orthopnea or P ND. Taking her meds as Rx'd. Normal diet with ascorbic acid. She does not endorse diffuse sk in darkening. Does have occasional episodes of diffuse abd pain. Takes oxy at home for back pain. Has BM daily. Oncology History CT scan 07/27/2019 (ab/p) with large L sided renal lesion invading into renal vein, large retroperitoneal LN and also liver lesions 08/16/2019 liver biopsy- clear cell carcinoma of kidney 08/23/2019 CT scan - large L sided renal mass, large hepatic metastases, RML/RL L pulmonary nodules, L2 compression fracture with 50% height loss 08/24- 09/01/2019 hospitalization for hypercalcemia and pain, s/p L2 vertebropl asty, pamidronate for hypercalcemia; workup for hypotension (refractory to IVF) with neg cor t stim, TTE with normal LVEF but c/f Pulm HTN, unclear reason for hypotension, d/c on midod rine (But patient never started) 08/30 MRI brain negative for metastatic disease Received C3 while in house 10/31- C3D1. Some mild hypotension (SBPs 80-90s, HR 115), mildly responseive to IVF. TFTs & Random Cortisol WNL. 11/20- C4D1. Seen in clinic, hypotensive to 60/30s CT C/A/P completed. Transferred to IV i nfusion clinic - still hypotensive. IVF given and transferred to ED. ADMITTED for hypotensio n with relative adrenal insuff 10/09 possible thyroid storm Planned Tx: Nivo 280mg IV Ipilimumab 90mg c1D1 = 09/12 (21 day C2D1 = 10/07 C3D1 = 10/31 C4/D1 = 11/20 (held given hypotension) Remote Hx: Hodgkins disease 2001 s/p CHOP and also chest RT ROS: 12 point ROS negative except as noted in HPI PMH: Past Medical History: Diagnosis Date Hodgkin's disease (HCC) 2002 CHOPP and radiation therapy Hypercalcemia of malignancy Hypertension Hypothyroidism Hypothyroidism Pathologic compression fracture of lumbar vertebra, initial encounter (HCC) Renal cell carcinoma (HCC) clear cell carcinoma of left kidney, 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, lungs, invasion of left pulm onary artery, L2 metastatic spread SH: Social History Tobacco Use Smoking status: Never Smoker Smokeless tobacco: Never Used Substance Use Topics Alcohol use: Not Currently Drug use: Never FH: Family History Problem Relation Diabetes Mother Diabetes Father Hypertension Sister Diabetes Sister Outpatient Medications: No current facility-administered medications on file prior to encounter. Current Outpatient Medications on File Prior to Encounter Medication Sig Dispense Refill cholecalciferol 50,000 unit oral capsule Take 1 capsule by mouth once daily. Indication s: vitamin D deficiency (high dose therapy) (Patient taking differently: Take 50,000 Units b y mouth every seven days. Indications: vitamin D deficiency (high dose therapy)) 30 capsule 0 levothyroxine 175 mcg oral tablet Take 1 tablet by mouth before breakfast. 30 tablet 0 lovastatin 20 mg oral tablet Take 20 mg by mouth once daily in the evening. Administer with evening meal. omeprazole 20 mg oral capsule,delayed release(DR/EC) Take 1 capsule by mouth two times daily. Administer 30 to 60 minutes before meals 30 capsule 0 oxyCODONE (immediate release) 5 mg oral tablet Take 1 tablet by mouth every four hours as needed for breakthrough pain (1 to 2 tablets PO every 4 hours as needed for breakthough p ain). (Patient taking differently: Take 15 mg by mouth every six hours as needed for breakth rough pain (1 to 2 tablets PO every 4 hours as needed for breakthough pain). ) 90 tablet 0 Inpatient Medications: atorvastatin (LIPITOR) tablet 20 mg, 20 mg, oral, QPM bisacodyL (DULCOLAX) suppository 10 mg, 10 mg, rectal, DAILY PRN cholestyramine-aspartame (QUESTRAN LIGHT) packet 4 g, 4 g, oral, QID heparin injection 5,000 Units, 5,000 Units, subcutaneous, Q12H (Scheduled) hydrocortisone sodium succinate (PF) (SOLU-CORTEF) injection 100 mg, 100 mg, intravenous, Q 8H lidocaine (LIDODERM) 5 % patch 1 patch, 1 patch, transdermal, Q24H melatonin tablet 3 mg, 3 mg, oral, HS PRN omeprazole (PRILOSEC) capsule 20 mg, 20 mg, oral, BID ondansetron (ZOFRAN) injection 4 mg, 4 mg, intravenous, Q12H PRN oxyCODONE (immediate release) (ROXICODONE) tablet 5 mg, 5 mg, oral, Q4H PRN polyethylene glycol (MIRALAX) packet 34 g, 34 g, oral, TID PRN senna-docusate (SENOKOT S) 8.6-50 mg 1 tablet, 1 tablet, oral, BID Allergies: No Known Allergies PHYSICAL EXAM Last Vitals: BP 96/56 (BP Location: Left upper arm, Patient Position: Lying on back) | Pul se 103 | Temp 36.5 C (97.7 F) (Oral) | Resp 16 | Ht 1.575 m (5' 2") | Wt 85 kg (187 lb 6.3 oz) | SpO2 98% | BMI 34.27 kg/m | BSA 1.93 m 24 Hour Vital Min/Max: Systolic (24hrs), Av , Min:76 , Max:146 Diastolic (24hrs), Av, Min:37, Max:99 Pulse Av Min: 101 Max: 121 Temp Av.5 C (97.7 F) Min: 36.3 C (97.3 F) Max: 36.7 C (98.1 F) Resp Av.2 Min: 16 Max: 18 SpO2 Av.1 % Min: 89 % Max: 100 % Intake/Output Summary (Last 24 hours) at 11/22/2019 0853 Last data filed at 11/22/2019 0644 Gross per 24 hour Intake 2485 ml Output 1000 ml Net 1485 ml General Appearance: NAD, laying in bed HEENT: NCAT, MMM, no LAD, no mucosal darkening CV: RRR, no 2/6 systolic mumur rRUSB w/out radiation to axilla. JVD @ 10 cm w/ normal respi ratory variation. Pulm: CTAB, no w/r/r Abdomen: soft, NT/ND, BS+ Ext: wwp, 2+ pitting edema to knee Lymph: No cervical, axillary or inguinal adenopathy Skin: no rash, no petechiae, no purpura; darkening of palmar creases bilateral Neurologic: AAO x3, moving all extremities 2= Ambulatory and capable of all selfcare but unable to carry out any work activities. Up a nd about more than 50% of waking hours LABS: CBC with diff last 72 hours (or 3 results) Recent Labs 11/21/19 0850 11/22/19 0414 WBC 5.64 3.36* HB 12.6 10.9* HCT 39.4 35.2* PLT 221 202 NEUTROPERC 71.8* 78.2* LYMPHPERC 13.5* 16.1* MONOPERC 8.2 4.2 BASOPERC 1.4 0.3 EOSPERC 4.6* 0.6* Chemistries: Last 72 Hours (or 3 results): Recent Labs 11/21/19 1117 11/21/19 1909 11/22/19 0414 11/22/19 0719 11/22/19 0736 NA 130* 136 134* -- -- K 5.5* 5.0 5.8* -- -- CL 102 110* 111* -- -- BICARB 16* 16* 11* -- -- BUN 85* 78* 77* -- -- CR 3.20* 2.92* 3.13* -- -- GLU 93 72 88 91 81 CA 8.9 8.1* 8.4* -- -- Lab Results Component Value Date TBILI 0.5 11/22/2019 AP 93 11/22/2019 TP 5.2 (L) 11/22/2019 ALB 1.6 (L) 11/22/2019 AST 46 (H) 11/22/2019 ALT 19 11/22/2019 IMAGIN11/22/19: TTE 1. The left ventricular size is normal. 2. The LV function is normal. 3. Mild aortic stenosis (See comments below). 4. RV cavity size is mildly enlarged. RV global systolic function is mildly reduced. The estimated right ventricular systolic pressure is moderately to severely elevated (RVSP = 62.1 mmHg). 5. Compared to the most recent exam dated 08/26/2019, RVSP is lower. 11/21/19 CT chest/abd/pelvis 1. Since 08/23/19, stable large infiltrative left renal cell carcinoma. Extent of renal vei n thrombus cannot be determined without IV contrast but appear similar. Extensive surroundin g venous collaterals present. 2. Stable retroperitoneal foster metastases. Liver metastases are poorly visualized without contrast but are at least stable to minimally increased.. 3. New vertebral body L1 compression deformity. Cannot exclude underlying lesion, though no ne definitively visualized. Further compression of L2 pathologic fracture post vertebroplast y. 4. Stable pulmonary nodules. Stable bilateral lower lobe groundglass opacities which may be inflammatory as opposed to infectious given lack of change. 08/30/19 MRI brain wwo No acute intracranial process or enhancing intracranial abnormality. PATHOLOGY: 08/16/19: Liver mass, needle biopsy: Metastatic renal cell carcinoma, clear cell type [see comment] Comment: The malignant cell population is positive for PAX8 and CA-9 while negative for CK 7, HepPar-1, Arginase, Glypican 3, p63 and MARY-3 consistent with renal cell carcinoma. A r eticulin stain was performed and reviewed. 08/29/19: Peripheral blood, flow cytometric analysis: - No evidence of lymphoma or acute leukemia. 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 #Remoted hodgkin's lymphoma in remission, h/o chest radiation ASSESSMENT: Patient mj stage IV Clear cell renal carcinoma, remote h/o Hodgkins w/ chest radiation, w ith previous episodes of hypotension (unclear etiology) in setting of ongoing immunotherapy, presented to clinic for Cycle 4 of Nivo/Ipi who was found to have profound asymptomatic hyp otension with notable labs with Hyponatremia/hyperkalemia, JONO, mixed-acidosis, elevated T4 levels, admitted for further evaluation and managment The mixed metabolic derangements above are suspicious for a relative adrenal insufficiency, with a superimposed acute thyroiditis picture given elevated T4 and persistent elevated TSH . The multiple endocrine organ inflammatory issues at play are suspicious for immune-relate d adverse events (irAE) - would classify as Grade 2/3 . Highest suspicion for adrenalitis wi th possible thyroiditis (although would be curious given h/o chest radiation with suspected prior radiation induced hypothyroidism). Would hold off on further immunotherapy until more clarity is determined with assistance of primary MTS and endocrine consultants. RECOMMENDATIONS: --Appreciated medicine & endocrine evaluation for hypotension & metabolic derangements --No need for anticoagulation for cancer associated chronic L renal vein thrombosis at this time --Hold immunotherapy. Will arrange for outpatient followup to discuss reinitiating immunoth erapy once stable We will continue to follow along peripherally - trying to socially isolate when appropriate . Thank you for the opportunity to participate in this patient's care. This patient was seen and staffed with my attending, Dr. Jacky Brand, who agrees with as sessment and plan as stated. Tres "Jacinto" MD [facility] PGY-3 P Associated attestation - Jacky Brand MD - 11/23/2019 10:53 AM PDTI performed a histo ry and physical examination of the patient and discussed her management with the resident. I reviewed the resident s note and agree with the documented findings and plan of care. Jacky Brand MD [facility] [address] [place] [address] Karrie ROACH, Peggy - 11/21/2019 6:08 PM PDTFormatting of this note might be different fro m the original. BRIEF NOTE FULL TO FOLLOW IN AM Hank Altman is a 54 yo woman with hx lymphoma and current stage IV RCC c/b L2 pathologi c fracture s/p kyphoplasty 08/2019 who was found to have incidental L2 fracture on surveilla nce CT today, ultimately referred in to ED for hypotension. Bone scan revealed likely lesion responsible for L2 fracture. She underwent kyphoplasty with demonstrable improvement in her back pain. Went to onc clinic for routine appt today. Asymptomatic but referred to ED for v olga low blood pressure. Renal cell carcinoma on chemotherapy [employer] due to hypotension Asymptoamtic hypotension Tachycardic Pedal edema Patient got CT AP with OUT contrast today 08/2019 MRI brain negative CHemo was CHOPP and chest RT. Cycle 3 ipi/nivo yesterday from heme onc note. Ipinovlomuab and nivolumab are known to caus e hyperthyroidism. Didn't take extra doses of thyroid medication Likely check point inbitor induced hyperthyroidism and possibly acute destructive thyroidit is. This acute change would explain the discrepanct between TSH and free T4. Concerned about the patient. Cortisol 31 appropriate. TSH 6.77 free T4 4.2 - hold levothyroxine - TSH tomorrow AM - trend T4 daily - trend LFT daily - trend WBC daily - f/u TPO antibodies - f/u TSI (thyroid stimulating immunoglobulin) - f/u T3 total - call endocrine if patient decompensates - hydrocortisone as below - beta jhon if can tolerate as below if needing heart rate control - can use esmolol gtt instead - PTU as below - cholestyramine as below - can stop if does not tolerate - would obtain echo Medication Dosing Rationale hydrocortisone 100 mg IV q8h 1st and most important Due to relative adrenal insufficiency in with hyperthyroid state an d increased metabolism of cortisol. Additionally glucocorticoid inhibits peripheral conversi on T4 > T3. B jhon propanol vs esmolol Propranolol 60-80 mg q4h If no preference from cardiolo gy view point use propranolol 60-80 every 4 -6 hours since has some inhibition of peripheral conversion of thyroid hormone. PTU (propthyouracil) 200 mg PO once and will reasses tomorrow Will switch to methimazole i n future. Using PTU since faster onset and added benefit of blocking peripheral conversion T4 > T3 Side effects: agranulocytosis and liver failure cholestyramine 4 g four times a day Results in faster lowering of T4 by binding enterically circulating thyroid hormone. Thyroidectomy Consider ENT involvement if patient does not improve in 24-72 hours Peggy Yoon Endocrine Fellow Pager [phone] signed by Farrukh Hall MD at 11/22/2019 3:43 PM PDTBowden, Marilia hayden MD - 11/21/2019 5:25 PM PDTAssociated Order(s): IP CONSULT TO SPINE SURGERYFormatting o f this note might be different from the original. Neurosurgery History and Physical Date: 11/21/2019 Neurosurgery Attending: Horacio Coleman MD HPI/Interval Update: Hank Altman is a 54 yo woman with hx lymphoma and current stage IV RCC c/b L2 pathologi c fracture s/p kyphoplasty 08/2019 who was found to have incidental L1 fracture on surveilla nce CT today, ultimately referred in to ED for hypotension. Bone scan revealed likely lesion responsible for L2 fracture. She underwent kyphoplasty with demonstrable improvement in her back pain. Went to onc clinic for routine appt today. Asymptomatic but referred to ED for v olga low blood pressure. She denies any interceding trauma. She denies blood thinner use. 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 No prescriptions prior to admission. Scheduled Medication: atorvastatin, 20 mg, QPM heparin, 5,000 Units, Q12H (Scheduled) [START ON 11/22/2019] levothyroxine, 175 mcg, BEFORE BREAKFAST omeprazole, 20 mg, BID PRN Medication: oxyCODONE (immediate release), 5 mg, Q4H PRN IV Medication: lactated ringers Exam Physical Exam: Vitals: Last 24 hour min/max Temp: 36.4 C (97.5 F) Temp Min: 36.4 C (97.5 F) Max: 36.4 C (97.6 F) Pulse: 119 Pulse Min: 101 Max: 121 Resp: 18 Resp Min: 18 Max: 18 BP: 87/54 BP Min: 80/56 Max: 100/60 SpO2: 100 % SpO2 Min: 89 % Max: 100 % Body mass index is 31.53 kg/m. Awake, alert, conversant BUE/BLE 01/09 SILT Mild midline tenderness to palpation in lower lumbar area Data Radiology: Left: today; Right: 08/2019 Complete Blood Count/Coags Recent Labs 10/31/19 0910 11/21/19 0850 WBC 4.86 5.64 HB 12.2 12.6 HCT 38.6 39.4 PLT 249 221 Recent Labs 08/25/19 1835 08/29/19 0937 INRPT 1.11 1.06 APTT 23.3* -- Blood Gas No results for input(s): FIO2, PH, PCO2, PO2, HCO3, OPDZR2FGS, E4EFAUAJ, G1VHHFKUB in the l ast 720 hours. CSF Results No results for input(s): WBCCSF, RBCCSF, GLUCOSECSF, PROTEINCSF in the last 8640 hours. Urinalysis Recent Labs 11/21/19 1407 URINECOLOR Yellow URAPPEARANCE Sl.Cloudy URINEBACTERI None URINESQEPI None URINEWBC 2 URINEYEAST None Chemistry Recent Labs 08/25/19 0536 09/01/19 0528 11/21/19 0850 11/21/19 1016 11/21/19 1117 NA 142 < > 142 < > 130* -- 130* K 5.2* < > 4.3 < > 5.7* -- 5.5* CL 116* < > 113* < > 103 -- 102 BICARB 22 < > 22 < > 15* -- 16* BUN 36* < > 20 < > 87* -- 85* CR 1.78* < > 1.42* < > 3.20* 3.7* 3.20* GLU 88 < > 83 < > 108* -- 93 CA 10.8* < > 8.5* < > 9.4 -- 8.9 MG 1.7 -- -- -- -- -- -- PO4 -- < > 2.5 -- -- -- -- < > = values in this interval not displayed. LFT/Lipid Panel Recent Labs 11/21/19 0850 TBILI 0.5 AP 107* TP 6.0* ALB 1.9* AST 54* ALT 23 No results for input(s): CHOL, LDL, HDL, TRI in the last 8640 hours. Culture Results URINE SCREEN FOR CULTURE (no units) Date Value 08/24/2019 Negative Assessment and Plan Hank Altman is a 54 yo woman with hx lymphoma and current stage IV RCC c/b L2 pathologi c fracture s/p kyphoplasty 08/2019 who was found to have incidental L1 fracture on surveilla nce CT today, not clearly pathologic. Neurologically at baseline. No indication that bracing /procedural intervention would help her baseline pain. Stable fracture. - Pain control - Spines cleared - Will determine f/u with staff Dennis Roa MD Neurosurgery PGY3 [id number] Risk and Morbidity Patient Risk Modifiers - Including but not limited to. Age: 54 y.o. female DNR: Full Code Transfer status/urgency : From Outside Hospital : From [facility] ER: Patient Acuity: 2 (11/21/19 122) Destination: Acute (11/21/191219) Palliative/end of Life Care :Yes First GCS and if Mechanically Ventilated/Intubated: Best Motor Response: 6-->(M6) obeys commands (11/21/19 1220) Best Verbal Response: 5-->(V5) oriented (11/21/19 1220) Best Eye Response: 4-->(E4) spontaneous (11/21/19 1220) Score (Nyla Coma Scale): 15 (11/21/19 1220) Last GCS and if Mechanically Ventilated/Intubation: Best Motor Response: 6-->(M6) obeys commands (11/21/19 1220) Best Verbal Response: 5-->(V5) oriented (11/21/19 1220) Best Eye Response: 4-->(E4) spontaneous (11/21/19 1220) Score ([place] Coma Scale): 15 (11/21/19 1220) Comatose State: If GCS<9 Then patient by definition is in a comatose state Score ([place] Coma Scale) Min: 15 Max: 15 Loss of Consciousness: No Cerebral Thrombus and/or Stroke: Not applicable Current Received Ventriculostomy/Ventricular Catheter: Not applicable Last ICP if Ventricular Catheter Placed: Malnutrition: Moderate protein-calorie malnutrition Surgical Interventions : 1. Hypotension, unspecified hypotension type 2. JONO (acute kidney injury) (HCC) * Surgery not found * Procedures: No admission procedures for hospital encounter. Coagulopathy: No Weight loss prior to admission: No Patient Active Problem List Diagnosis Date Noted Hypotension 08/31/2019 Proteinuria 08/30/2019 Hematuria 08/30/2019 JONO (acute kidney injury) ([facility]) 08/30/2019 Elevated blood uric acid level 08/30/2019 Normocytic anemia 08/30/2019 Leukopenia 08/30/2019 Closed compression fracture of L2 lumbar vertebra, initial encounter ([facility]) 08/25/2019 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) 08/25/2019 Hyperkalemia 08/24/2019 Hypothyroidism 08/24/2019 Compression fracture of L2 vertebra ([facility]) 08/24/2019 Renal cell adenocarcinoma (HCC) 08/23/2019 Hypercalcemia of malignancy 08/23/2019 Hypotension/Shock:Hypotension CHF:No Metabolic Disorder:Hyponatremia; hyperkalemia, metabolic acidosis Malignancy: Metastatic cancer of kidney not involving the brain or spinal cord Edema/Herniation:No Associated attestation - Horacio Coleman MD - 11/21/2019 8:00 PM PDTI performed a history a nd physical examination of the patient and discussed the management with the resident. I rev iewed the resident's note and agree with the plan of care as documented. Horacio Coleman MD [facility] of Neurological Surgery [facility] [place] Tres Dennis MD - 11/21/2019 5:20 PM PDT Brief non-visit oncology note: ID: Patient is a [address] Ortiz w/ rmote h/o Hdogkins 2001 s/p CHOPP + chest rt; acti vely managed with Stage IV RCC w/ mets to LN, Lung, Bone, & Liver c/b L2 compression frx w/ hypercalcemia & hyperkalemia of malignancy A/P This is a 54-year-old woman with metastatic RCC on ipo/nevo with hypotension and tachycardi a with an apparent nonfocal review of systems, with a notable acute renal injury with signif icantly elevated T4; image findings of a stable left renal vein thrombus and new L2 compress ion fracture . We were called for consultation regarding potential treatment overnight for renal vein thro mbosis, and to co-manage while in house. Initial Recommendations --Given the appearance of the thrombus is likely chronic with venous collateralization, the re is no acute indication for anticoagulation overnight as the apparent risks outweigh the b enefits --Given tachycardia and hypotension with a significantly elevated T4, would consider consul ting endocrinology re: potential thyrotoxicosis --Appreciate ED colleagues additional evaluation for shock (hypovolemia, obstructive via PE ?, distributive from occult infection?) --Agree with judicious use of IV fluids for resuscitation Above initial assessment and recommendations were discussed with Heme/Onc fellow Dr. Kassidy Chinchilla. Patient will be seen in person tomorrow morning and staffed with attending oncologi st Dr. Jacky Melo tomorrow ~~~~~~~~~~~~~~~~~~~~~~~~~~~~~~~~~~~~~~~~ HPI: Per chart & ED PA (Lisa steele) Ms Altman was set to receive C4D1 today for ipo/nevo, but was noted to be hypotensive at her appt today. Vitals were recorded with 60s/30s with H R of 38?. Got to CT scanner and was noted to be 70/40s w/ HR 100s but asymptomatic w/out new localizing features. Reportedly has been taking her thyroid medicaion as rx'd. No recent f/ c/ns, localizing infectious symptoms per ED provider. [employer] was called, and transferred to the emergency department. Patient was given 2 L of IV f luids. Blood pressure responsive to 80/50s. Heart rate still 100 110. Labs significant for: Acute on chronic kidney injury (BUN 87, creatinine 3.2) Elevated free T4 of 4.2 with downtrending TSH 6.7 Normal troponin Urine with microscopic hematuria with > 1000 RBC, proteinuria, mild ketones CT chestabd/pelvis: Large infiltrative RCC with a renal vein thrombus appears similar (a lower certainty given lack of contrast), stable RP mets, new L1 vertebral compression deformity, stable pulmonary nodules and bilateral lower lobe GGO Recent Labs 10/10/19 0908 10/31/19 0910 11/01/19 1013 11/04/19 11/07/19 11/21/19 0850 11/21/19 1016 11/21/19 1117 NA 132* 129* < > 130* < > 135 132 130* -- 130* K 5.0 5.5* < > 6.1* < > 5.7 4.9 5.7* -- 5.5* CL 102 101 < > 105 < > 106 105 103 -- 102 BICARB 21 19* < > 17* < > 21 17 15* -- 16* BUN 36* 54* < > 47* < > 26.7 29.6 87* -- 85* CR 1.37* 1.60* < > 1.47* < > 1.46 1.59 3.20* 3.7* 3.20* GLU 93 81 < > 96 < > 101 92 108* -- 93 CA 8.3* 8.1* < > 7.7* < > 9.1 8.0 9.4 -- 8.9 AST 57* 51* -- -- -- 39 -- 54* -- -- ALT 22 24 -- -- -- 15 -- 23 -- -- AP 120* 109* -- -- -- 99 -- 107* -- -- TBILI 0.6 0.5 -- -- -- 0.6 -- 0.5 -- -- TP 5.8* 6.0* -- -- -- 5.0 -- 6.0* -- -- ALB 2.2* 2.1* -- -- -- 2.4 -- 1.9* -- -- ANIONGAP 9 9 < > 8 -- -- -- 12* -- 12* ANIONALBCOR 13* 13* -- -- -- -- -- 17* -- -- < > = values in this interval not displayed. TSH (mIU/L) Date Value 11/21/2019 6.77 (H) 10/31/2019 13.70 (H) 10/10/2019 18.40 (H) FREE T4 (ng/dL) Date Value 11/21/2019 4.2 (H) 10/31/2019 1.2 10/10/2019 1.2 CORTISOL, TOTAL SERUM (ug/dL) Date Value 11/21/2019 37.4 10/31/2019 24.1 10/10/[address] chest/abd/pelvis 11/20 IMPRESSION: 1. Since 08/23/19, stable large infiltrative left renal cell carcinoma. Extent of renal vei n thrombus cannot be determined without IV contrast but appear similar. Extensive surroundin g venous collaterals present. 2. Stable retroperitoneal foster metastases. Liver metastases are poorly visualized without contrast but are at least stable to minimally increased.. 3. New vertebral body L1 compression deformity. Cannot exclude underlying lesion, though no ne definitively visualized. Further compression of L2 pathologic fracture post vertebroplast y. 4. Stable pulmonary nodules. Stable bilateral lower lobe groundglass opacities which may be inflammatory as opposed to infectious given lack of change. Tres "Home Dennis MD Internal Medicine PGY-3 P Portions of the record may have been created with voice recognition software. Occasional wr jacob-word or "kvjpa-[id number]" substitutions may have occurred due to the inherent limtations of voice recognition software. Read the chart carefully and recognize, using context, where solis bstitutions have occured. Associated attestation - Jacky Brand MD - 11/23/2019 10:52 AM PDTI performed a histo ry and physical examination of the patient and discussed her management with the resident. I reviewed the resident s note and agree with the documented findings and plan of care. Jacky Brand MD [facility] [address]A [address] [place] [address] Aroldo Whyte - 11/21/2019 4:52 PM PDTFormatting of this note might be different from the sterling marley. Pharmacy Services: [facility]or Admission Medication Reconciliation I have reviewed the patient s home medication list and found it to be accurate with the f ollowing exceptions: Medications Discontinued Prior to Admission: Medication/dose/sig Source of Information Reason for Discontinuation Furosemide 20mg Patient Patient reported stopped taking the medication in early November. Medications Omitted from Prior to Admission list: Medication Dose Route Frequency Source of Information Reason for start N/A Changes to Dose/Sig/Route of Medications on Prior to Admission list: Medication Dose Route Frequency Source of Information Reason change was made Cholecalciferol 50.000 units PO 1 tablet , once a week Patient Patient reported taking 1 t ablet once a week, not daily Oxycodone 5mg PO 3 tablets every 5-6 hours Patient Patient reported taking 3 tablets q5-6 h OTC/Herbal Products: Product Dose Route Frequency N/A Additional Information: Hxkpleoegkjslwq80,000 units cap, taking 1 cap once a week, last dose taken yesterday 11/19. Other medications last dose taken was this morning 11/20. Lovastatin 20mg tablet, last dose taken lasts night 11/19. No other OTCs, vitamins, eye/ear drops were reported. Confirmed with patient, MORIS. Allergies: No Known Allergies Pharmacy Preferences: [facility][id number] [place] [id number] Hours: 9am-7pm Mon-fri / 9am-6pm Sat / 10am-5pm Sun E-Prescribing: Yes E-Prescribing Control Substances: Yes [facility] Building [address] [facility] Room [address] [place] [address] Hours: 8am-6pm Mon-thu E-Prescribing: Yes E-Prescribing Control Substances: Yes [facility] [address] [facility], [id number] [place] [address] Hours: 8am-9pm Mon-fri; 9-5:30pm Sat-sun E-Prescribing: Yes E-Prescribing Control Substances: Yes Source of Medication Information: Patient and Pharmacy Reliability: Reliable The above changes will be reviewed with the supervising pharmacist. The patient s prior t o admission medication list will be updated accordingly. A total of 15 minutes were spent on this activity. All questions concerning medications, in cluding OTC and herbal products, were addressed. For questions regarding this information contact AROLDO WHYTE Associated attestation - Samy Joseph PharmD - 11/21/2019 5:29 PM PDTAgree with plan as outlined by pharmacy salesperson/internet marketing specialist/development technician. Samy Joseph, Pharm.D., [facility] Clinical Pharmacist, [place] [phone] documented in this encounter ED Notes Ginny Bauer RN - 11/21/2019 8:47 PM PDTTransport requested for patient to travel by bed to . Ginny Nazario RN - 11/21/19 8:43 PM PDTRN Admission/Transfer Note Reason for admission: hypotension, tachycardia Pertinent physical findings (Focused assessment, Pain/discomfort, Neuro, Cards/tele and Resp assessment): Pain: currently denies Neuro: a&ox4, intact Cards: sinus tach on tele. Denies CP. Hypotensive Resp: Got SOB while ambulating with walker to bathroom. On RA GI: LBM 11/19 [place]: normally ambulates independently. Used a walker to get to bathroom due to bp, t achycardia Labs: K 5 BUN 78 Creat 2.92 BNP: 3981 Pertinent PMHx (See also Code Status, MAR, Results, Allergies, Medication reconciliation & Medical History): PMH: remote lymphoma, stage 4 RCC w/ mets to LN, lung, bone, liver c/b L2 compression frx w/ hypercalcemia & hyperkalemia of malignancy Restrictions: Regular diet with K and phos restrictions Psych/social assessment & interventions: No pertinent issues noted. No interventions needed . Safety risks (Identify patient triggers/safety concerns & effective interventions): fall ri sk Isolation status: None Legal status: Voluntary Medical/psychosocial stability: Moderately Stable Transport/transitions concerns as related to stability: None Orders to follow up on: inpatient orders Belongings check: Completed; Unsecured Report called to: Fouzia DOUGLAS in 4a unit. MD report called? yes Education provided to the patient/family: plan of care, safety Ginny Nazario RN - 11/21/2019 7:29 PM PDTI have relinquished care of this patient.Electronically signed by MISAEL White t 11/21/2019 7:29 PM Lore Schultz RN - 11/21/2019 2:57 PM PDTPt arrived on 5B.El ectronically signed by Lore Csae RN at 11/21/2019 2:57 PM PDTLore Case, R N - 11/21/2019 2:51 PM PDTBed: 5B3 Expected date: Expected time: Means of arrival: Comments: AC16 Report given. ED CONTINUOUS STILL OPERATOR to bring pt.Electronically signed by Holly Brandon RN at 0 11/21/2019 2:51 PM Holly Siddiqui RN - 11/21/2019 2:46 PM PDTRN Admission/Transfe r Note Reason for admission: JONO, Elevated Potassium, volume resuscitation. Pertinent physical findings (Focused assessment, Pain/discomfort, Neuro, Cards/tele and Res p assessment): Patient non-symptomatic with BP 92/59 currently. NSR, sinus tach on registered nurse cardiac telemetry with HR currently 105. Pertinent PMHx (See also Code Status, MAR, Results, Allergies, Medication reconciliation & Medical History): Stage IV renal cell carcinoma with mets. Getting CT scan today and found to have low BP. Restrictions: None. Psych/social assessment & interventions: No pertinent issues noted. No interventions needed . Safety risks (Identify patient triggers/safety concerns & effective interventions): fall ri sk Isolation status: None Legal status: Voluntary Medical/psychosocial stability: Moderately Stable Transport/transitions concerns as related to stability: None Orders to follow up on: Per obs admission orders. Belongings check: Completed; Unsecured Report called to: Paz DOUGLAS in 5B unit. MD report called? yes Education provided to the patient/family: Patient educated with plan of care for obs admiss ion. Leonardo Sethi PA-C - 11/21/2019 2:26 PM PDTIPAS(S) Handoff Note I received sign-out and accepted care of this patient from the departing resident and atten ding at 2:26 PM. Please see the primary providers note for complete elements of the histo ry, physical exam, and ED course. Illness Severity: Stable Patient Summary: Most recent vital signs: BP 93/60 | Pulse (!) 107 | Temp 36.4 C (Oral) | Wt 80.7 kg (1 78 lb) | SpO2 98% | BMI 31.53 kg/m | BSA 1.89 m Hank Altman is a 54 y.o. female with a PMHx of stage IV renal cell carcinoma with metas tases to the liver, breast, and lung (getting EPO/NEVO chemotherapy) presented to the ED wit h hypotension. Ms Altman was getting a previously scheduled (non-contrast) CT when her blood pressure was no juice to be 60s/40s without symptoms. She was brought to the infusion clinic where she remaine d hypotensive. [employer] was called and she was brought to the Emergency Department. Coming in for JONO & hyperkalemia (?secondary to ATN/hypotension) ED MD thinks history of being on midodrine but not currently Lab and imaging results: no leukocytosis or anemia (may reflect hemoconcentration), hyperkalemia (5.5) with elevated BUN (85) and Cr (3.2, baseline ~1.6), normal lactate, UA with hematuria and proteinuria but no nitrites or LE ECG without hyperkalemic changes CT of the chest/abdomen/pelvis shows: "1. Since 08/23/19, stable large infiltrative left renal cell carcinoma. Extent of renal ve in thrombus cannot be determined without IV contrast but appear similar. Extensive surroundi ng venous collaterals present. 2. Stable retroperitoneal foster metastases. Liver metastases are poorly visualized without contrast but are at least stable to minimally increased.. 3. New vertebral body L1 compression deformity. Cannot exclude underlying lesion, though no ne definitively visualized. Further compression of L2 pathologic fracture post vertebroplast y. 4. Stable pulmonary nodules. Stable bilateral lower lobe groundglass opacities which may be inflammatory as opposed to infectious given lack of change." Action plan (To Do): - IV fluids - Serial labs -> no current need for shift - monitoring tech ED Course Following Sign Out: Care signed out to the oncoming RADHA/MARKET INTELLIGENCE CONSULTANT/MD at the end of my shift. Mary Garcia PA-C arjuan m, Geraldine fang RN - 11/21/2019 1:25 PM PDTLabs drawn and sent. Patient aware of need for urine specime n, urine cup labeled in presence of patient and antiseptic towelette given to patient with i nstructions on proper technique to collect a clean catch specimen. Patient instructed to clark l when able to provide specimen. Sister at bedside. Call light in reach. Deng Daniels MD - 11/21/2019 12:27 PM PDT ED Shared Provider Note, co-authored by Dr. Antonio and DENG COPE MD: [facility] Hank Altman is a 54 y.o. female with hx of renal cell carcinoma, getting EPO/NEVO and w ent for planned infusion today. Today was having CT scan, was found to be hypotensive in the 60s/40s. She reports that she did not have any sxs associated with these blood pressures. 9 11 was called and she was transported via EMS. Here in the ED she feels well, reports that she feels hungry cause she hasn't eaten today. She is asymptomatic at this time and does not have any current complaints or concerns. Due to her hypotension, although w/out sxs, infusion clinic deferred chemotherapy, gave the pt IV fluids and called an [employer] with transported ot the ED. PCP: Lissette Milner PA-C Patient Active Problem List Diagnosis Date Noted Hyperthyroidism 11/22/2019 Hypotension, unspecified hypotension type 11/21/2019 Closed compression fracture of body of L1 vertebra (HCC) 11/21/2019 Hypothyroidism, unspecified type 11/21/2019 Renal cell carcinoma, unspecified laterality (HCC) 11/21/2019 Hypotension 08/31/2019 Proteinuria 08/30/2019 Hematuria 08/30/2019 JONO (acute kidney injury) (HCC) 08/30/2019 Elevated blood uric acid level 08/30/2019 Normocytic anemia 08/30/2019 Leukopenia 08/30/2019 Closed compression fracture of L2 lumbar vertebra, initial encounter ([facility]) 08/25/2019 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) 08/25/2019 Hyperkalemia 08/24/2019 Hypothyroidism 08/24/2019 Compression fracture of L2 vertebra (HCC) 08/24/2019 Renal cell adenocarcinoma (HCC) 08/23/2019 Hypercalcemia of malignancy 08/23/2019 Past Medical History Diagnosis Date Hodgkin's disease (HCC) 2001 CHOPP and radiation therapy Hypothyroidism Hypothyroidism Renal cell carcinoma (HCC) clear cell carcinoma of left kidney, 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, lungs, invasion of left pul monary artery, L2 metastatic spread Hypercalcemia of malignancy Pathologic compression fracture of lumbar vertebra, initial encounter ([facility]) Hypertension Past Surgical History Procedure Date C section 1988, 2000 Knee surgery 1980 Mediport insertion placed in left chest site in 2001 w/ removal in 2002 Medications Prior to Admission Medications Prescriptions Last Dose Informant Patient Reported? Taking? cholecalciferol 50,000 unit oral capsule 11/20/2019 at Unknown time No Yes Sig: Take 1 capsule by mouth once daily. Indications: vitamin D deficiency (high dose thera py) Patient taking differently: Take 50,000 Units by mouth every seven days. Indications: gonzales min D deficiency (high dose therapy) levothyroxine 175 mcg oral tablet 11/21/2019 at Unknown time No Yes Sig: Take 1 tablet by mouth before breakfast. lovastatin 20 mg oral tablet 11/20/2019 at Unknown time Yes Yes Sig: Take 20 mg by mouth once daily in the evening. Administer with evening meal. omeprazole 20 mg oral capsule,delayed release(DR/EC) 11/21/2019 at Unknown time No Yes Sig: Take 1 capsule by mouth two times daily. Administer 30 to 60 minutes before meals oxyCODONE (immediate release) 5 mg oral tablet 11/21/2019 at Unknown time No Yes Sig: Take 1 tablet by mouth every four hours as needed for breakthrough pain (1 to 2 tablet s PO every 4 hours as needed for breakthough pain). Patient taking differently: Take 15 mg by mouth every six hours as needed for breakthrough pain (1 to 2 tablets PO every 4 hours as needed for breakthough pain). Facility-Administered Medications: None Allergies No Known Allergies Social History Tobacco Use Smoking status: Never Smoker Smokeless tobacco: Never Used Substance Use Topics Alcohol use: Not Currently Drug use: Never Family History Problem Relation Diabetes Mother Diabetes Father Hypertension Sister Diabetes Sister Review of Systems Complete ROS performed and negative except as noted in HPI. ED Triage Vitals BP Temp Heart Rate Pulse - Plethysmograph Resp SpO2 11/21/19 1219 11/21/19 1220 11/21/19 1219 11/21/19 1219 11/21/19 1505 11/21/19 1219 (!) 88/58 36.4 C (!) 121 102 pulses/min 18 100 % Physical Exam Vitals signs and nursing note reviewed. Constitutional: General: She is not in acute distress. Appearance: She is well-developed. She is not diaphoretic. HENT: Head: Normocephalic and atraumatic. Eyes: General: No scleral icterus. Conjunctiva/sclera: Conjunctivae normal. Pupils: Pupils are equal, round, and reactive to light. Neck: Musculoskeletal: Normal range of motion and neck supple. Cardiovascular: Rate and Rhythm: Normal rate and regular rhythm. Heart sounds: Normal heart sounds. No murmur. Pulmonary: Effort: Pulmonary effort is normal. No respiratory distress. Breath sounds: Normal breath sounds. No stridor. No wheezing or rales. Chest: Chest wall: No tenderness. Abdominal: General: Bowel sounds are normal. Palpations: Abdomen is soft. There is no mass. Tenderness: There is no abdominal tenderness. There is no guarding or rebound. Musculoskeletal: Normal range of motion. General: No tenderness. Lymphadenopathy: Cervical: No cervical adenopathy. Skin: General: Skin is warm and dry. Findings: No rash. Neurological: Mental Status: She is alert and oriented to person, place, and time. Cranial Nerves: No cranial nerve deficit. Lab Results Results for orders placed or performed during the hospital encounter of 11/21/19 TROPONIN I, PLASMA Result Value Ref Range TROPONIN I 0.05 <0.80 ng/mL LACTATE Result Value Ref Range LACTATE 1.1 <=2.0 mmol/L UA, DIPSTICK ONLY Result Value Ref Range COLOR(UR) Yellow APPEARANCE Sl.Cloudy GLUCOSE(UR) 50.0 Negative, 50.0 mg/dL PROTEIN(LAB) >=500.0 (A) Negative, 30.0 mg/dL BILIRUBIN Negative Negative UROBILINOGEN <2.0 <2.0 mg/dL PH(UR) 7.0 5.0 - 8.0 BLOOD Large (A) Negative KETONES 5.0 (A) Negative mg/dL NITRITES Negative Negative LEUKOCYTE ESTERASE Negative Negative SPECIFIC GRAVITY 1.012 1.005 - 1.030 URINE, MICROSCOPIC EXAM Result Value Ref Range RED CELLS >1,000 (H) 0 - 3 /hpf WHITE CELLS 2 0 - 5 /hpf BACTERIA None None /hpf YEAST (LAB) None None /hpf SQUAMOUS EPITHELIAL None None, Few /hpf MUCOUS None None, Few /hpf NON-SQUAMOUS EPITH None None /hpf HYALINE CASTS 0 0 - 2 /lpf GRANULAR CASTS 0 0 - 2 /lpf CELLULAR CASTS 0 <=0 /lpf TRIPLE P04 CRYSTALS None None, Few /hpf CALCIUM OXALATE MILAN None None, Few /hpf URIC ACID CRYSTALS None None, Few /hpf AMORPHOUS CRYSTALS None None, Few /hpf T3 TOTAL, SERUM Result Value Ref Range T3, TOTAL 86 (L) 87 - 196 ng/dL TROPONIN I, PLASMA Result Value Ref Range TROPONIN I 0.08 <0.80 ng/mL COMPLETE METABOLIC SET (NA,K,CL,CO2,BUN,CREAT,GLUC,CA,AST,ALT,BILI TOTAL,ALK PHOS,ALB,PROT TOTAL) Result Value Ref Range GLUCOSE, PLASMA (LAB) 72 70 - 99 mg/dL BUN, PLASMA (LAB) 78 (H) 6 - 20 mg/dL CREATININE PLASMA (LAB) 2.92 (H) 0.60 - 1.10 mg/dL EGFR - STATELESS 20 (L) >60 mL/min EGFR NON -STATELESS 17 (L) >60 mL/min SODIUM, PLASMA (LAB) 136 136 - 145 mmol/L POTASSIUM, PLASMA (LAB) 5.0 3.4 - 5.0 mmol/L CHLORIDE, PLASMA (LAB) 110 (H) 97 - 108 mmol/L TOTAL CO2, PLASMA (LAB) 16 (L) 21 - 32 mmol/L CALCIUM, PLASMA (LAB) 8.1 (L) 8.6 - 10.2 mg/dL CALCIUM(ALB CORRECTED) 10.1 8.6 - 10.2 mg/dL BILIRUBIN TOTAL 0.5 0.3 - 1.2 mg/dL TOTAL PROTEIN, PLASMA (LAB) 5.0 (L) 6.4 - 8.2 g/dL ALBUMIN, PLASMA (LAB) 1.5 (L) 3.5 - 4.7 g/dL ALK PHOS 91 42 - 98 U/L AST(SGOT) 44 (H) <=41 U/L ALT (SGPT) 19 <=60 U/L ANION GAP 10 4 - 11 mmol/L ANION GAP(ALB CORRECTED) 16 (H) 4 - 11 mmol/L POTASSIUM CMNT No Hemo BILI T CMNT No Hemo AST CMNT No Hemo BUN/CREATININE RATIO 27 (H) 8 - 25 GLOBULIN LVL 3.5 2.3 - 3.5 gm/dL ALBUMIN/GLOBULIN RATIO 0.4 (L) 0.7 - 2.8 NT-PRO BNP Result Value Ref Range NT-PRO BNP 3,981 (H) <125 pg/mL COMPLETE METABOLIC SET (NA,K,CL,CO2,BUN,CREAT,GLUC,CA,AST,ALT,BILI TOTAL,ALK PHOS,ALB,PROT TOTAL) Result Value Ref Range GLUCOSE, PLASMA (LAB) 88 70 - 99 mg/dL BUN, PLASMA (LAB) 77 (H) 6 - 20 mg/dL CREATININE PLASMA (LAB) 3.13 (H) 0.60 - 1.10 mg/dL EGFR - STATELESS 19 (L) >60 mL/min EGFR NON -STATELESS 15 (L) >60 mL/min SODIUM, PLASMA (LAB) 134 (L) 136 - 145 mmol/L POTASSIUM, PLASMA (LAB) 5.8 (H) 3.4 - 5.0 mmol/L CHLORIDE, PLASMA (LAB) 111 (H) 97 - 108 mmol/L TOTAL CO2, PLASMA (LAB) 11 (L) 21 - 32 mmol/L CALCIUM, PLASMA (LAB) 8.4 (L) 8.6 - 10.2 mg/dL CALCIUM(ALB CORRECTED) 10.3 (H) 8.6 - 10.2 mg/dL BILIRUBIN TOTAL 0.5 0.3 - 1.2 mg/dL TOTAL PROTEIN, PLASMA (LAB) 5.2 (L) 6.4 - 8.2 g/dL ALBUMIN, PLASMA (LAB) 1.6 (L) 3.5 - 4.7 g/dL ALK PHOS 93 42 - 98 U/L AST(SGOT) 46 (H) <=41 U/L ALT (SGPT) 19 <=60 U/L ANION GAP 12 (H) 4 - 11 mmol/L ANION GAP(ALB CORRECTED) 18 (H) 4 - 11 mmol/L POTASSIUM CMNT No Hemo BILI T CMNT No Hemo AST CMNT No Hemo BUN/CREATININE RATIO 25 8 - 25 GLOBULIN LVL 3.6 (H) 2.3 - 3.5 gm/dL ALBUMIN/GLOBULIN RATIO 0.4 (L) 0.7 - 2.8 FREE T4 Result Value Ref Range FREE T4 3.3 (H) 0.6 - 1.2 ng/dL TSH Result Value Ref Range TSH 3.26 0.50 - 5.07 mIU/L SODIUM TOTAL, URINE Result Value Ref Range SODIUM CONC URINE 70 mmol/L URINE INTERVAL Random CREATININE, URINE Result Value Ref Range CREATININE CONC UR 47.30 mg/dL URINE INTERVAL Random BASIC METABOLIC SET (NA, K, CL, TCO2, BUN, CR, GLU, CA) Result Value Ref Range GLUCOSE, PLASMA (LAB) 108 (H) 70 - 99 mg/dL BUN, PLASMA (LAB) 76 (H) 6 - 20 mg/dL CREATININE PLASMA (LAB) 2.92 (H) 0.60 - 1.10 mg/dL EGFR - STATELESS 20 (L) >60 mL/min EGFR NON -STATELESS 17 (L) >60 mL/min SODIUM, PLASMA (LAB) 136 136 - 145 mmol/L POTASSIUM, PLASMA (LAB) 5.6 (H) 3.4 - 5.0 mmol/L CHLORIDE, PLASMA (LAB) 113 (H) 97 - 108 mmol/L TOTAL CO2, PLASMA (LAB) 13 (L) 21 - 32 mmol/L CALCIUM, PLASMA (LAB) 8.4 (L) 8.6 - 10.2 mg/dL ANION GAP 10 4 - 11 mmol/L POTASSIUM CMNT Sl Hemo BUN/CREATININE RATIO 26 (H) 8 - 25 BASIC METABOLIC SET (NA, K, CL, TCO2, BUN, CR, GLU, CA) Result Value Ref Range GLUCOSE, PLASMA (LAB) 114 (H) 70 - 99 mg/dL BUN, PLASMA (LAB) 75 (H) 6 - 20 mg/dL CREATININE PLASMA (LAB) 2.89 (H) 0.60 - 1.10 mg/dL EGFR - STATELESS 20 (L) >60 mL/min EGFR NON -STATELESS 17 (L) >60 mL/min SODIUM, PLASMA (LAB) 135 (L) 136 - 145 mmol/L POTASSIUM, PLASMA (LAB) 6.0 (HH) 3.4 - 5.0 mmol/L CHLORIDE, PLASMA (LAB) 111 (H) 97 - 108 mmol/L TOTAL CO2, PLASMA (LAB) 15 (L) 21 - 32 mmol/L CALCIUM, PLASMA (LAB) 8.7 8.6 - 10.2 mg/dL ANION GAP 9 4 - 11 mmol/L POTASSIUM CMNT No Hemo BUN/CREATININE RATIO 26 (H) 8 - 25 POTASSIUM, PLASMA Result Value Ref Range POTASSIUM, PLASMA (LAB) 5.4 (H) 3.4 - 5.0 mmol/L POTASSIUM CMNT No Hemo POTASSIUM, PLASMA Result Value Ref Range POTASSIUM, PLASMA (LAB) 5.7 (H) 3.4 - 5.0 mmol/L POTASSIUM CMNT No Hemo 12 LEAD ECG Result Value Ref Range VENTRICULAR RATE 102 bpm ATRIAL RATE 101 ms P-R INTERVAL 183 ms P AXIS 30 deg QRS DURATION 104 ms QT 344 ms QTC-BAZETT 447 ms R AXIS 230 deg T AXIS 11 deg ECG IMPRESSION Sinus tachycardia ECG IMPRESSION Inferior infarct, 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 18.5 TR VMAX (TRICUSPID VALVE) 3.4 EJECTION FRACTION RANGE MEAN VALUE 67.5 % 12 LEAD ECG Result Value Ref Range VENTRICULAR RATE 113 bpm ATRIAL RATE 113 ms P-R INTERVAL 179 ms P AXIS 34 deg QRS DURATION 91 ms QT 310 ms QTC-BAZETT 425 ms R AXIS 247 deg T AXIS 0 deg ECG IMPRESSION Sinus tachycardia ECG IMPRESSION Inferior infarct, old- ABNORMAL ECG - ECG IMPRESSION Electronically signed by: PRELIMINARY - Unconfirmed 12 LEAD ECG Result Value Ref Range VENTRICULAR RATE 104 bpm ATRIAL RATE 104 ms P-R INTERVAL 187 ms P AXIS 36 deg QRS DURATION 99 ms QT 327 ms QTC-BAZETT 431 ms R AXIS -90 deg T AXIS 6 deg ECG IMPRESSION Sinus tachycardia ECG IMPRESSION Inferior infarct, old- ABNORMAL ECG - ECG IMPRESSION Electronically signed by: PRELIMINARY - Unconfirmed CAPILLARY BLOOD GLUCOSE (NO CHG), POC Result Value Ref Range BLOOD GLUCOSE, POC 91 70 - 99 mg/dL CAPILLARY BLOOD GLUCOSE (NO CHG), POC Result Value Ref Range BLOOD GLUCOSE, POC 81 70 - 99 mg/dL CAPILLARY BLOOD GLUCOSE (NO CHG), POC Result Value Ref Range BLOOD GLUCOSE, POC 118 (H) 70 - 99 mg/dL CAPILLARY BLOOD GLUCOSE (NO CHG), POC Result Value Ref Range BLOOD GLUCOSE, POC 78 70 - 99 mg/dL CBC AND AUTO DIFF Result Value Ref Range WHITE CELL COUNT 3.36 (L) 3.50 - 10.80 K/cu mm RED CELL COUNT 3.92 (L) 4.00 - 5.20 M/cu mm HEMOGLOBIN 10.9 (L) 12.0 - 16.0 g/dL HEMATOCRIT 35.2 (L) 36.0 - 46.0 % MCV 89.8 80.0 - 100.0 fL MCHC 31.0 (L) 32.0 - 36.0 g/dL RDW SD 56.2 (H) 35.1 - 46.3 fL PLATELET COUNT 202 150 - 400 K/cu mm MPV 8.4 (L) 9.7 - 12.3 fL NRBC% 0.0 0.0 - 0.3 % NRBC# 0.00 0.00 - 0.02 K/cu mm NEUTROPHIL % 78.2 (H) 50.0 - 70.0 % LYMPHOCYTE % 16.1 (L) 18.0 - 42.0 % MONOCYTE % 4.2 3.5 - 9.0 % EOS % 0.6 (L) 1.0 - 3.0 % BASO % 0.3 0.0 - 2.0 % IG% 0.6 0.0 - 1.0 % NEUTROPHIL # 2.63 1.80 - 7.70 K/cu mm LYMPHOCYTE # 0.54 (L) 1.00 - 4.80 K/cu mm MONOCYTE # 0.14 0.10 - 0.90 K/cu mm EOS # 0.02 0.00 - 0.50 K/cu mm BASO # 0.01 0.00 - 0.10 K/cu mm IG# 0.02 0.00 - 0.10 K/cu mm ED COURSE AND MEDICAL DECISION MAKING: Hank Altman is a 54 y.o. female presenting from infusion clinic after [employer] was called lelo mireles to asymptomatic hypotension. On presentation pt chronically ill appearing, NAD, w/out sxs. VS reviewed, afebrile, notable tachycardia ,hypotensive in the 80s/50s (improved in ED with IVF), satting well on RA. Given the patient's history and exam, initial differential diagnosis includes but is not li mited to: Given clinical improvement with IVF, as well as new JONO, conisered hypovolemia/deh ydration as etiology of low BP. No bleeding on history or exam to suggest acute blood loss a nemia or hemorrhagic shock. No fevers/chills, no infectious sxs on exam, less likely to repr esent systemic infectious etiology. PE considered in the setting of hypercoagulable state/ac tive CA, however no CP, no SOB, satting well on RA no evidence of DVT on exam or hx. No CP, neg trop argues against ACS/trop. The patient received the following in the emergency department (including diagnostic work-u p, medications, interventions, consultations, and reassessments): Case discussed with ED obs who accepts pt for admission for further BP monitoring, trendin g JONO, and repeat labs. . ED Medication Administration from 11/21/2019 1210 to 11/21/2019 2117 Date/Time Order Dose Route Action 11/21/20191957 hydrocortisone sodium succinate (PF) (SOLU-CORTEF) injection 100 mg 100 mg intravenous Given 11/21/2019 1553 lactated ringers (LR) bolus 1,000 mL 1,000 mL intravenous New Bag 11/21/20191917 oxyCODONE (immediate release) (ROXICODONE) tablet 5 mg 5 mg oral Given 11/21/20191917 propylthiouraciL (PTU) tablet 200 mg 200 mg oral Given Admit Requested: Nov 21, 2019 2:25 PM IMPRESSION: I95.9 Hypotension, unspecified hypotension type N17.9 JONO (acute kidney injury) (HCC) S32.010A Closed compression fracture of body of L1 vertebra ([facility]) E87.5 Hyperkalemia E03.9 Hypothyroidism, unspecified type C64.9 Renal cell carcinoma, unspecified laterality ([facility]) E05.90 Hyperthyroidism E83.52 Hypercalcemia of malignancy S32.020A Closed compression fracture of L2 lumbar vertebra, initial encounter ([facility]) C64.2 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) E79.0 Elevated blood uric acid level D64.9 Normocytic anemia PLAN, DISPOSITION AND FOLLOW-UP: Admitted to ED obs, stable Current Discharge Medication List Luh Pearce RN - 11/21/2019 12:21 PM PDTBIBA from [facility] for hypotension. Pt was there for a CT scan (to check on progress of immunotherapy tx) when staff noticed she had low BP, 64/40. Not symptomatic . Improved to 76/48. Staff also noted large increase in creatinine from baseline today. HR 100, afebrile, no cough, CP, SOB, N/V/D. Arrives a/o x4, able to walk slowly. Electronically signed by Luh Reeves RN at 020 12:23 PM Abeba Sal RN - 11/21/2019 12:12 PM PDTBed: 16 Expected date: Expected time: Means of arrival: Comments: Sa maddy Sal RN - 11/21/2019 11:49 AM PDTPT coming from [facility] for hypotension, BP 60/30---->70/30 cbg 108mg/dL documente d in this encounter Miscellaneous Notes Plan of Care - Mar Rosenberg RN - 11/29/2019 10:35 AM PDTPt's PIV removed ( notifie d of bleeding with PIV removal), AVS reviewed and lovenox teaching done, pt verbalizes under standing of lovenox administration and states she feels comfortable self-adminstering or hav ing sister adminster lovenox BID at home. Pt DC'd in WC to sister's car to home in [place], [place]. andoff - Ellie Holguin RN - 11/28/2019 5:42 PM PDTNursing Handoff Patient Daily Goal: discharge tomorrow (11/28/19 0842) Patient Specific Preferences: Raise and lower HOB slowly 2/2 motion sickness. (1999) [facility] IP NURSE HANDOFF: Gonsales hospital course events: As per Dr. Uriostegui's note 11/23 evening patricio ds: Hank is a 54 y.o. female with prior history of Hodgkin's lymphoma in 2002 who has stage I V advanced renal cell carcinoma with multiple metastases including lung, liver as well as jana mbar spine. Patient had a recent kyphoplasty and was admitted with hypotension and JONO in t he setting of thyrotoxicosis. Patient was on the medicine floor and had a code called for a cute onset of lower extremity pain, swelling shortness of breath, tachycardia and hypotensio n and was brought to the ICU. She had a high PESI score and was started on vasopressor supp ort and stabilized to get a CT chest PE protocol. CT of the head was also ordered to evalua te for new metastases, MRI in August 2019 was negative for intracranial metastases. SAFETY Patient/Family Target: Patient will get out of bed safely Progress to Target: Improving As evidenced by: Patient is able to ambulate safely with her walker and 1 person assist. Hank is stable on her feet and was able to get out of bed to her chair x2 today and walked arount the unit. She also participated with PT and OT. Non-skid socks on, bed in low position, call light wi thin reach. COMFORT/ANXIETY/BEHAVIOR Patient/Family Target: Pain level will remain at or below 3/10 Progress to Target: Improving As evidenced by: Hank complained of a sore back upon awakening and had pain when getting up to ambulate; she had oxycodone mg x2 today. She has prn oxycodone available up to 10 mg if needed. Progress to Target: Improving NURSING ASSESSMENT & RECOMMENDATIONS FORWARD Nursing Assessment of Patient Stability Risk: Moderately stable Recommendations Forward: -- Manage pain; oxycodone; tylenol -- Encourage mobility; 1-person SBA with walker; Up to chair x2; walked in rosales -- Bowel meds given; BM x1 today -- Telemetry discontinued; Bedside pulse ox -- Renal diet; 2000mL fluid restriction; Compliant SPECIAL INSTRUCTIONS FOR ACTH STIMULATION TEST 10/31 AT 0430: Collect Serum ACTH and Cortisol Labs AT 0500: Give Cosyntropin Injection AT 0530: Collect Second Serum Cortisol AT 0600: Collect Final Serum Cortisol Barriers to discharge: Heparin teaching with patient and sister tomorrow prior to 10am disc harge lan of Care - Mary Siddiqui - 11/28/2019 3:49 PM PDTFormatting of this note might be different from the jennaa l. Occupational Therapy Evaluation and Treatment [id number] HANK CHANCEH Date of : 1965 Start of care: 11/21/2019 Date of onset: 11/21/2019 Referring/Attending Practitioner: Nikki Márquez MD Primary/Referral Diagnosis/ICD-9: I95.9 Hypotension, unspecified hypotension type N17.9 JONO (acute kidney injury) ([facility]) S32.010A Closed compression fracture of body of L1 vertebra ([facility]) E87.5 Hyperkalemia E03.9 Hypothyroidism, unspecified type C64.9 Renal cell carcinoma, unspecified laterality ([facility]) E05.90 Hyperthyroidism E83.52 Hypercalcemia of malignancy S32.020A Closed compression fracture of L2 lumbar vertebra, initial encounter ([facility]) C64.2 Renal cell carcinoma of left kidney ([facility]) E79.0 Elevated blood uric acid level D64.9 Normocytic anemia Insurance: Payor: [employer] / Plan: [employer] / Product Type: Indemnity / Service period: 11/28/2019 to 12/28/2019 Time in: 1500 Time out: 1530 Pt admitted on 11/21/2019, hospital day # 7. Pt seen on: 14A Precautions: mild fall risk, skin integrity risk Indication for Occupational Therapy Consult: Assess pt's level of function for ADLs and fun ctional mobility, educate pt and/or family on precautions and safety with ADL performance, d etermine adaptive equipment and safety techniques for discharge planning Brief Hospital Course: This is a 54 y/o F with PMH of remote Hodgkin's lymphoma s/p definit annalee CHOP + XRT complicated by chronic hypothyroidism along with a more recently diagnosed re nal cell c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, bones, and lungs who initially presented to the hospital from her oncology clinic with asymptomatic hy potension and was found to have thyrotoxicosis attributed to adverse effect of immuen checkp oint inhibitor and whose hospital course was complicated by a massive PE requiring systemic thrombolysis, anasarca in house Relevant Precautions:Mild fall risk, spinal for comfort (d/t prior compression fx), ski n integrity risk due to edema Past Medical History: Diagnosis Date Hodgkin's disease (HCC) 2002 CHOPP and radiation therapy Hypercalcemia of malignancy Hypertension Hypothyroidism Hypothyroidism Pathologic compression fracture of lumbar vertebra, initial encounter (HCC) Renal cell carcinoma (HCC) clear cell carcinoma of left kidney, 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, lungs, invasion of left pulm onary artery, L2 metastatic spread Past Surgical History Procedure Laterality Date C section 2000 Knee surgery Left 1980 Mediport insertion placed in left chest site in 2001 w/ removal in 2002 Present in Session: OT and patient Communication / Barriers: none Occupational Profile Reported by Patient Living Environment: patient staying with her sister and brother in law in single level home home with 1 step entry. Short distance from driveway to entry of home. Shower stall. Prior Level of Function: Patient has a front wheeled walker and was previously able to get around the house, perform activities of daily living and simple mobility. Limited appetite a nd overall malaise feeling leading up to this admission. Has not driven but owns a car. Has been staying with sister since prevalence of stairs. Fall History: none since dx in July 2020 Patient's current discharge goal: tomorrow to sister's home, patient would like to be able to return to work eventually. Subjective: Encountered in bed. "I just had a shower and it felt amazing." "If I feel any p ain it is where I had the kyphoplasty." Analysis of Occupational Performance Vitals: on room air Pain: denies ? Cognitive skills Level of alertness: Alert Orientation: x4 Quality of responses: appropriate Command followin-2-step Judgment: Good Insight: Good Memory: intact Sequencing: Good Attention / Concentration: intact Barriers to Learning: none Emotional regulation and social skills: Appropriate Motor and praxis skills Hand Dominance: right UE joint integrity with passive range of motion - Left: WFL - Right: WFL Strength: within functional limits bilaterally UE quality of movement - Left: functional for activities of daily living - Right: functional for activities of daily living Muscle tone: intact Edema: severe in LEs and moderate in UEs Skin Integrity: at risk Postural alignment: within functional limits Sensory perceptual skills VISION Uses Glasses: Yes reading Auditory: within functional limits Proprioception: NT Tactile: Intact to light touch and pressure bilaterally Activities of daily living: Self feeding: independent Grooming: seated independent UB dressing: independent LB dressing: unable to lift LEs or bend for feet access Toileting: modified independent Bathing: NT [facility] daily activity assessment [facility] DAILY ACTIVITY - How much help from another person does the patient currently need f or: Lower body dressing 2 - Alot Bathing 3 - Little Toileting 4 - None Upper body dressing 4 - None Personal grooming 4 - None Eating meals 4 - None [facility] Daily Activity Total Score 21 1 - Unable to do/total assistance = Total/Dependent Assist 2 - A lot = Maximum/Moderate Assistance 3 - A little = Minimal/Contact Guard Assist/Supervision 4 None = Modified independent/Independent Functional Transfer & Mobility For ADLs: Supine to sit: modified independent on the left side head of bed at 30 degrees Supine to sit: min assistance for left LE progression due to weakness Static sitting: independent Sit to stand: modified independent Transfer to chair: NT Toilet Transfers: NT Ambulation with ADLs: see PT record Activity tolerance: sufficient for simple activities of daily living Treatment Provided Educated on task modification, fall prevention, durable medical equipment and home setup mo dification for progressive independence with daily living tasks, reviewed edema reduction st rategies Ended session: Patient left in bed, call button in reach and nursing aware. Nurse informed of OT recs and pt performance. ? Assessment and Recommendation Hank Altman is a 54 y.o. female admitted for (see above). Patient currently able to mov e small household distances, limited by LE weakness L worse than right and edema. Patient wo uld benefit from family assist for safety during bathing and set up supervision for ease wit h tasks. Patient thinks she is on the mend and feels much better than she did at the beginni ng of her admission. Patient is safe to DC home with family assistance. Discharge recommendations below. ? Interpretation of [facility] Short Form Daily Activity: Score (in points) % of Functional Impairment, Limitation, Restriction 6 100% impaired, limited, restricted 7-8 At least 80%, but less than 100% impaired, limited restricted 9-13 At least 60%, but less than 80% impaired, limited restricted 14-19 At least 40%, but less than 60% impaired, limited restricted 20-22 At least 20%, but less than 40% impaired, limited restricted 23 At least 1%, but less than 20% impaired, limited restricted 24 0% impaired, limited restricted Barriers to therapeutic success: medical status Recommendations: ACTIVITY PLAN: *Nursing to re-assess per shift as needed.* - Lights on and curtains open during day hours. -up to a chair as tolerated - encourage daily participation in activities of daily living and provide necessary set up as needed to facilitate appropriate level of independence and engagement - Reinforce precautions and fall prevention COGNITIVE PYRAMID: - Reasoning & Judgment: Moderately Structured Environment - Collaborate on plan for the day - Problem solve collaboratively - Safety: Reinforce fall strategies that are working - Support patient s goals for ADL and mobility success - Breakdown information into tasks/steps - Help patient take ownership of things patient can do - Discuss daily, seasonal events Discharge Recommendations: Home with assist PRN (set up supervision during showering and during harder times of weakness sba ) DME recommended at discharge: bedside commode to be used at bedside at night, as a shower s eat and over toilet during the day. Eval Complexity: Evaluation Complexity (MODERATE): History of 3+ personal factors or comorbidities Examination using tests or measures for 3+ elements of body structure/function, activity li mitation or participation restriction Clinical presentation is evolving and changing characteristics Clinical decision making of moderate complexity PLAN: Evaluation and treatment completed this date; DC from OT Frequency: Planned Frequency: dc The above plan of care and goals were developed and reviewed with the patient. The skills o f this therapist are necessary to safely and effectively furnish a recognized therapy servic e whose goal is improvement of an impairment or functional limitation. Hank's knowledge of disease process: Good . The patient requires services that can be safely and effectively performed only by a quali fied therapist to address the aforementioned and highlighted problems and goals. Goals discussed and agreed upon with Hank and family. Time in: 1500 Time out: 1530 Patient was seen for a total of 30 minutes of direct one on one skilled OT which included Below are the OT charges from this session - OT Eval - Therapeutic Activity: 10 minutes Mary Siddiqui OTR/L lan of Care - Abeba Yates DPT - 11/28/2019 12:48 PM PDTFormatting of this note might be different from the or iginal. 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 States she is feeling well today. Ready to go home tomorr ow Pain: "its good today" Objective: Pt is supine in bed prior to PT. Pt is independent recalling spinal precautions . Pt is supervision supine > sit via log roll with head of bed flat. Pt is supervision sit <> stand to front wheeled walker. Pt ambulated 100' with front wheeled walker, stand by as sist, steady onofre with equal step length, no loss of balance. Pt takes 5 minute seated r est break. Heart rate decreases from 122 to 114. Pt is supervision to ambulate to/from sin k in room with front wheeled walker. Pt completed 10x bilateral lower extremity standing he el raise, 5x hip abduction, and 5x mini squat - pt limited by left knee pain. Pt completed 5x bilateral lower extremity seated LAQ, marching, and iso hip abduction/adduction. Pt is i ndependent sit > supine via log roll with head of bed flat. Pt is supine in bed at end of s ession with needs met, RN aware. Assessment: Pt is independent recalling and adhering to spinal precautions with functional mobility. Pt is supervision for ambulation with front wheeled walker and will have assist f rom sister at home. Pt is independent with seated and standing home exercise program with h andouts at home. Pt with no further acute PT needs. See care plan for goals. Activity Recommendations for Nursing partners: *Nursing to re-assess per shift as needed.* - Lights on and curtains open during day hours. - Up to chair for meals or 3x/day - Ambulate in rosales with front wheeled walker, supervision 3x/day DISCHARGE RECOMMENDATIONS: Home with assist PRN DME Needs: none ABEBA YATES, PT andoff - Robi Dowling RN - 11/27/2019 6:15 PM PDTNursing Handoff Patient Daily Goal: up to chair x3 (11/27/19 08) Patient Specific Preferences: Raise and lower HOB slowly 2/2 motion sickness. (1999) [facility] IP NURSE HANDOFF: [facility] hospital course events: As per Dr. Uriostegui's note 11/23 evening roun ds: Hank is a 54 y.o. female with prior history of Hodgkin's lymphoma in 2002 who has stage I V advanced renal cell carcinoma with multiple metastases including lung, liver as well as jana mbar spine. Patient had a recent kyphoplasty and was admitted with hypotension and JONO in t he setting of thyrotoxicosis. Patient was on the medicine floor and had a code called for a cute onset of lower extremity pain, swelling shortness of breath, tachycardia and hypotensio n and was brought to the ICU. She had a high PESI score and was started on vasopressor supp ort and stabilized to get a CT chest PE protocol. CT of the head was also ordered to evalua te for new metastases, MRI in August 2019 was negative for intracranial metastases. SAFETY Patient/Family Target: Patient will be free of fall during the shift. Progress to Target: Improving As evidenced by: Patient ambulated in her room using 1-person SBA and walker for assistance. She has a s teady gait but requires slight assistance when getting out of bed. Bed in low position, non- skid socks on, call light within reach. COMFORT/ANXIETY/BEHAVIOR Patient/Family Target: Pain level will remain at or below 3/10 Progress to Target: Improving As evidenced by: Patient has complained soar ness on her lower back. prn 5mg oxycodone and scheduled lidoc jose manuel patch was effective. Asleep well during the shift. Progress to Target: Improving As evidenced by: NURSING ASSESSMENT & RECOMMENDATIONS FORWARD Nursing Assessment of Patient Stability Risk: Moderately stable Recommendations Forward: -- Manage pain; oxycodone -- Encourage mobility; 1-person SBA with walker -- Telemetry + Bedside continuous pulse ox -- Renal diet; tolerating well -- CBG achs Barriers to discharge: Increased mobility Possible discharge on Thursday lan of Care - Neville Simmons, PT - 11/27/2019 3:21 PM PDTFormatting of this note might be different from the o riginal. Physical Therapy Evaluation 11/27/2019 3:21 PM Hospital Day: 6 [id number] HANK ALTMAN Date of : 1965 Start of care: 11/21/2019 Referring/Attending Practitioner: Nikki Márquez MD Primary/Referral Diagnosis/ICD-9: I95.9 Hypotension, unspecified hypotension type N17.9 JONO (acute kidney injury) ([facility]) S32.010A Closed compression fracture of body of L1 vertebra ([facility]) E87.5 Hyperkalemia E03.9 Hypothyroidism, unspecified type C64.9 Renal cell carcinoma, unspecified laterality ([facility]) E05.90 Hyperthyroidism E83.52 Hypercalcemia of malignancy S32.020A Closed compression fracture of L2 lumbar vertebra, initial encounter ([facility]) C64.2 Renal cell carcinoma of left kidney ([facility]) E79.0 Elevated blood uric acid level D64.9 Normocytic anemia Insurance: Payor: [facility] / Plan: [facility] / Product Type: Indemnity / Service period from: 11/27/2019 to 02/25/2020 Time in: 1455 Time out: 1515 Patient was seen for a total of 20 minutes of direct one on one skilled physical therapy wh ich included 15 minutes of therapeutic activity Patient seen on 14A Brief Hospital Course: This is a 54 y/o F with PMH of remote Hodgkin's lymphoma s/p defini tive CHOP + XRT c/b chronic hypothyroidism along with a more recently diagnosed renal cell c 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, bones, and lungs who initially presented to the hospital from her oncology clinic with asymptomatic hypotension and was found to have 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 and whose hospital course was complicated by a massive PE requiring systemic thrombolys is (per Dr Cooper, 11/25) Relevant Precautions: Mild fall risk, spinal for comfort (d/t prior compression fx) Indication for PT Evaluation: Instruction for safety with mobility following surgery or inj ury Past Medical History: Diagnosis Date Hodgkin's disease (HCC) 2002 Hypercalcemia of malignancy Hypertension Hypothyroidism Hypothyroidism Pathologic compression fracture of lumbar vertebra, initial encounter (HCC) Renal cell carcinoma (HCC) Past Surgical History: Procedure Laterality Date C SECTION KNEE SURGERY Left 1980 mediport insertion Subjective: Hank presents awake in bed, willing to work with PT. Living Environment: Lives With: alone Living Arrangements: house Transportation Available: family or friend will provide Living Environment Comment: plans to stay with her sister and sister's following dc ; they live in a single level home with no steps to enter Prior level of function: Bed Mobility/Transfers: independent Ambulation Skills: needs device Transfer Skills: needs device ADL Skills: needs assist Equipment available at home: front wheeled walker History of Falls: no Patient / Family Goal: return home Language: [place] Individuals present for session other than therapist and pt: none Pain: no pain reported Vital signs: mild tachycardia, 115's at rest, increased to 120's with activity. Cognitive Screen Level of alertness: awake and alert Orientation: x4 Quality of responses: answers questions appropriately Command following: follows multi step commands Judgment / safety awareness: fair Physical Assessment ROM: within functional limits Strength: grossly 4/5 bilateral lower extremities Edema: bilateral lower extremities Neurological Function Sensation: reports decreased bilateral lower extremities sensation d/t edema Muscle Tone: intact Proprioception: intact Gross Motor: intact Fine Motor: intact Balance: Sitting static: good, independent Sitting dynamic: good, independent Standing static: fair with front wheeled walker, contact guard assist Standing dynamic: fair with front wheeled walker, contact guard assist Functional Balance Grades: Normal Static: Patient able to maintain steady balance without handhold support Dynamic: Patient accepts maximal challenge and can shift weight easily within full range in all directions Good Static: Patient able to maintain balance without handhold support, limited postural sw ay Dynamic: Patient accepts moderate challenge; able to maintain balance while picking object off floor Fair Static: Patient able to maintain balance with handhold support; may require occasional minimal assistance Dynamic: Patient accepts minimal challenge; able to maintain balance while turning head/lamine nk Poor Static: Patient requires handhold support and moderate to maximal assistance to mainta in position Dynamic: Patient unable to accept challenge or move without loss of balance O Tabitha Dumont and Lia Yoon (2007). Physical rehabilitation: assessment and treatme nt (5th ed.). Johnson: Migue Rice [facility]. p.[phone] Mobility & Transfers: Supine to sit: minimum assist via log rolling with head of bed elevated, needs assist at b ilateral lower extremities Sit to supine: minimum assist via log rolling with assist at bilateral lower extremities Sit to stand: stand by assist to front wheeled walker Stand to sit: stand by assist Stand pivot transfer: Gait: able to ambulate 75ft with front wheeled walker at contact guard assist; demonstrates mild kyphotic posture with wide base of support; noted her left knee flexes during trunk pr ogression giving impression that her knee is buckling however, nuha knees did not buckle with no loss of balance noted. Level of Assistance Definition Safe Patient Mobility Term Independent Patient does not require any physical supervision or assistance from another pe rson or from an assistive device Independent Modified Independent Patient uses adaptive or assistive equipment Independent Supervsion Patient requires only supervision with therapist standing 15 ft away Independent Stand-by assistance Patient requires verbal or tactile cues from another person, the person is very close to the patient, but is not touching them Independent Contact guard assistance Patient requires support of another person touching them, or their gait belt Supervised Minimal assistance Patient able to perform 75% or more of the activity. Clinician provides assistance for 0-25% of the activity Semi Dependent Moderate assistance Patient able to perform 50-75% of the activity, clinician performs 25-5 0% of the activity Dependent Maximal assistance Patient able to perform 25-50% of activity, clinician performs 50-75% of activity Dependent Dependent Patient performs 0-25% of activity, clinician performs 75-100% of activity Depend ent Outcome Measure(s): [facility] BASIC MOBILITY Difficulty turning over in bed 3 - A Little - Minimal/Contact Guard Assist/Supervision Difficulty sitting/standing from chair w/ arms 3 - A Little - Minimal/Contact Guard Assist/ Supervision Difficulty moving from supine to sitting on edge of bed 3 - A Little - Minimal/contact Guar d Assist/Supervision Help needed moving from /to chair/wheelchair 3 - A Little - Minimal/Contact Guard Assist/S upervision Help needed walking in hospital room 3 - A Little - Minimal/Contact Guard assist/Supervisio n Help needed climbing 3-5 steps w/railing 2 - Alot - Maximum/Moderate Assistance [facility] Basic Mobility Total Score 17 Interpretation of [facility] Short Form - Basic Mobility: CMS Modifier (G-Code) Score (in points) % of Functional Impairment, Limitation, or Restriction CN 6 100% impaired, limited, restricted CM 7-9 At least 80%, but less than 100% impaired, limited, or restricted CL 10-14 At least 60%, but less than 80% impaired, limited, or restricted CK 15-19 At least 40%, but less than 60% impaired, limited, or restricted CJ 20-22 At least 20%, but less than 40% impaired, limited, or restricted CI 23 At least 1%, but less than 20% impaired, limited, or restricted CH 24 0% impaired, limited, or restricted *This score not officially observed but is implied based on other components of patient's m obility and may be an underestimate Treatment and education provided this date: - pt awake in bed, agreeable to PT - supine to sit minimum assist wit assist with bilateral lower extremities - sit to stand to front wheeled walker stand by assist - ambulated with front wheeled walker, contact guard assist - returned to supine, stand by assist Education provided: - safety with mobility - pacing with activity - spinal precautions for prior vertebral compression fx (per pt hx) Ended session: Pt back in bed with call light within reach, all needs met and RN updated on all findings. ASSESSMENT: Hank is a pleasant 54 y.o female who presents with above medical complications. Previousl y mod independent at baseline, Hank lives alone however, plans to discharge to her sister' s single level home where sister and her are available to assist 30/03. Uses a front wheeled walker for mobility. Currently she is near her baseline function and able to demonst rate ambulation with front wheeled walker. Anticipate she will be able to return home with a ssist, PT to follow. Personal factors/Comorbidities; High - 3 or more personal factors. Behavior: None Learning Factors: None. Social Issues: Medical conditions and Housing situation impacts discharge Medical Conditions Impacting Care: Multiple co-morbidities and Cardiac Body Systems Elements: High - 4 or more elements Body structures & functions: Strength, Cardiopulmonary status and Endurance Activity limitations: Impaired bed mobility, Impaired transfers, Impaired gait and Difficul ty with activities of daily living Participation restrictions: Community activities and Caregiver restrictions. Clinical Presentation: High - Unstable: Atypical presentation of condition and Expected slo w progression of recovery Clinical decision making: High Complexity: Multiple problems requiring prioritizing interve ntions and Clinical coordination of care Complexity: high Hank's knowledge of disease process: Good . The patient requires services that can be safely and effectively performed only by a quali fied therapist to address the aforementioned and highlighted problems and goals. PT PLAN: Plan to see patient to achieve highest level of mobility which includes bed mobil ity, transfer training, gait and balance training, patient and/or caregiver education, thera peutic exercise, and use of equipment or durable medical equipment needs. Frequency: 1 more visit Goals: Problem: PT Goals- Adult Goal: Functional Mobility Goal Description 1. Hank will be indep with supine to sit from a flat bed, no use of bed rails. 2. Hank will be indep sit to stand with front wheeled walker 3. Hank will ambulate 200 ft supervised with front wheeled walker 4. Hank will safely ascend/descend 1 steps stand by assist with front wheeled walker 5. Hank will be independent with spinal precautions for comfort Outcome: Gradual progress toward goal The above plan of care and goals were developed and reviewed with the patient. ACTIVITY PLAN: *Nursing to re-assess per shift as needed.* - Lights on and curtains open during day hours. - Up to chair for meals or 3x/day with front wheeled walker and 1 person assist. - Routine ambulation in hallway 3x/day with front wheeled walker and 1 person assist. -THANK YOU- DISCHARGE RECOMMENDATIONS: Home with assist PRN DME: none, has front wheeled walker Neville Simmons PT, DPT Pager [phone] Should this patient discharge from the hospital prior to the next physical therapy treatmen t, this note shall serve as the discharge summary. andoff - Anita Dowling RN - 11/27/2019 1:39 AM PDTNursing Handoff Patient Daily Goal: Improve mobility (11/26/19 2779) Patient Specific Preferences: Raise and lower HOB slowly 2/2 motion sickness. (1999) [facility] IP NURSE HANDOFF: [facility] hospital course events: As per Dr. Uriostegui's note 11/23 evening patricio ds: Hank is a 54 y.o. female with prior history of Hodgkin's lymphoma in 2002 who has stage I V advanced renal cell carcinoma with multiple metastases including lung, liver as well as jana mbar spine. Patient had a recent kyphoplasty and was admitted with hypotension and JONO in t he setting of thyrotoxicosis. Patient was on the medicine floor and had a code called for a cute onset of lower extremity pain, swelling shortness of breath, tachycardia and hypotensio n and was brought to the ICU. She had a high PESI score and was started on vasopressor supp ort and stabilized to get a CT chest PE protocol. CT of the head was also ordered to evalua te for new metastases, MRI in August 2019 was negative for intracranial metastases. SAFETY Patient/Family Target: Patient will get out of bed safely Progress to Target: Improving As evidenced by: Patient is able to stand-pivot to bedside commode using her walker and 1 person assist. A satya was able to get out of bed to commode x1 today. Non-skid socks on, bed in low position , call light within reach. COMFORT/ANXIETY/BEHAVIOR Patient/Family Target: Pain level will remain at or below 3/10 Progress to Target: Improving As evidenced by: Hank had oxycodone and lidocaine patch to lower back, pain was tolerable per pt. Slept well during the night. NURSING ASSESSMENT & RECOMMENDATIONS FORWARD Nursing Assessment of Patient Stability Risk: Moderately stable Recommendations Forward: -- Manage pain; oxycodone -- Encourage mobility; 1-person SBA with walker -- BSC for void needs -- Telemetry + Bedside continuous pulse ox; NSR today -- Transitioned from heparin gtt to lovenox today -- Renal diet; tolerating well --soft BP, IV bolus 250ml given during the shift. Monitor Barriers to discharge: Increased mobility Transition off heparin gtt andoff - Dora Nelson sa, RN - 11/26/2019 6:28 PM PDTNursing Handoff Patient Daily Goal: Improve mobility (11/26/19 2154) Patient Specific Preferences: Raise and lower HOB slowly 2/2 motion sickness. (1999) [facility] IP NURSE HANDOFF: [facility] hospital course events: As per Dr. Uriostegui's note 11/23 evening patricio ds: Hank is a 54 y.o. female with prior history of Hodgkin's lymphoma in 2002 who has stage I V advanced renal cell carcinoma with multiple metastases including lung, liver as well as jana mbar spine. Patient had a recent kyphoplasty and was admitted with hypotension and JONO in t he setting of thyrotoxicosis. Patient was on the medicine floor and had a code called for a cute onset of lower extremity pain, swelling shortness of breath, tachycardia and hypotensio n and was brought to the ICU. She had a high PESI score and was started on vasopressor supp ort and stabilized to get a CT chest PE protocol. CT of the head was also ordered to evalua te for new metastases, MRI in August 2019 was negative for intracranial metastases. SAFETY Patient/Family Target: Patient will get out of bed safely Progress to Target: Improving As evidenced by: Patient is able to stand-pivot to bedside commode using her walker and 1 person assist. A satya was able to get out of bed to commode x1 today. Non-skid socks on, bed in low position , call light within reach. COMFORT/ANXIETY/BEHAVIOR Patient/Family Target: Pain level will remain at or below 3/10 Progress to Target: Improving As evidenced by: Hank did not need any medication for pain management today. She has prn oxycodone avail able if needed. She was able to get out of bed to bsc and sat up in chair x1 today. RESTORATIVE MEASURES/SELF-MANAGEMENT Patient/Family Target: Increase out of bed activity Progress to Target: Improving As evidenced by: Hank safely ambulated with walker to bedside commode with one assist for line managemen t. She also sat in the chair today without any difficulties or complaints. NURSING ASSESSMENT & RECOMMENDATIONS FORWARD Nursing Assessment of Patient Stability Risk: Moderately stable Recommendations Forward: -- Manage pain; oxycodone -- Encourage mobility; 1-person SBA with walker; Up to chair x1 -- BSC for void needs -- Telemetry + Bedside continuous pulse ox; NSR today -- Transitioned from heparin gtt to lovenox today -- Renal diet; tolerating well Barriers to discharge: Increased mobility Transition off heparin gtt andoff - Vania Mathews RN - 11/26/2019 1:01 PM PDTNursing Handoff Patient Daily Goal: "get some sleep" (11/25/19 0800) Patient Specific Preferences: Raise and lower HOB slowly 2/2 motion sickness. (1999) [facility] IP NURSE HANDOFF: [facility] hospital course events: As per Dr. Uriostegui's note 11/23 evening roun ds: Hank is a 54 y.o. female with prior history of Hodgkin's lymphoma in 2002 who has stage I V advanced renal cell carcinoma with multiple metastases including lung, liver as well as jana mbar spine. Patient had a recent kyphoplasty and was admitted with hypotension and JONO in t he setting of thyrotoxicosis. Patient was on the medicine floor and had a code called for a cute onset of lower extremity pain, swelling shortness of breath, tachycardia and hypotensio n and was brought to the ICU. She had a high PESI score and was started on vasopressor supp ort and stabilized to get a CT chest PE protocol. CT of the head was also ordered to evalua te for new metastases, MRI in August 2019 was negative for intracranial metastases. COMFORT/ANXIETY/BEHAVIOR Patient/Family Target: Pain level will remain at or below 3/10 Progress to Target: Improving As evidenced by: Hank did not need any medication for pain management today. RESTORATIVE MEASURES/SELF-MANAGEMENT Patient/Family Target: Increase out of bed activity Progress to Target: Improving As evidenced by: Hank safely ambulated with walker to bedside commode with one assist for line managemen t. She also sat in the cardiac chair for three hours today without any difficulties or compl aints. NURSING ASSESSMENT & RECOMMENDATIONS FORWARD Nursing Assessment of Patient Stability Risk: Moderately stable ransfer Note - Juan Simpson MD - 11/26/2019 12:55 PM PDT54F with PMH of Hodgkins lymphoma as/p CHOPP and XRT c/b hypothyroidism, CKD3, and stage IV RCC on nivolumab/ipilimumab with mets to liver/lung/ bone with L2 pathologic fracture s/p kyphoplasty who presented on 11/20 from Onc clinic with asymptomatic hypotension thought secondary to thryotoxicosis but admitted to MICU on 11/[address] [facility] with syncopal event and tacchyarhythmia and worse hypotension and found to have mass annalee PE. In the MICU she was started on levo/vaso and started on heparin gtt empirically. Cardiology was consulted for formal bedside TTE which showed dilated RV and worse RV systolic function . She underwent CTA chest which showed bilat PEs with R heart strain and BNP/trop elevated. IR was consulted given massive PE, who felt that catheter-directed thrombolysis not the safe st/best option, so she underwent systemic alteplase (after CT head was neg for bleed/obvious mets). She also had hyperkalemia on arrival with her JONO which was temporized with insulin and myocardium stabilized with CaGluc. She finished systemic alteplase infusion and was restarted on heparin gtt after. She was co ntinued on stress dose steroids (100mg hydrocort IV q8h given she was in worse shock and was just weaned, from the thyrotoxicosis standpoint). 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 Her hyperkalemia resolved, and Cr was stable. Her fT4 came down as well appropriately. On AM she was weaned off pressors and SBP remained >90 per goal (she chronically has SBP in 80s in clinic). She was started on diuresis to offload RV failure as well. She was weaned t o hydrocort 40mg po bid per Endo recs with plan for wean per Endo recs. Aldosterone level 18 3, indicated no adrenal insufficiency component. She was transitioned to therapeutic lovenox (given renal function and hx of cancer) and off heparin gtt for her PE She remained stable off pressors, and was deemed stable for transfer to floor on 11/25. PENDING: -cont lovenox for PE -cont steroid wean per Endo recs: - 11/25 hydrocortisone 40 mg BID PO - 11/26 hydrocortisone 30 mg BID PO - 11/27 hydrocortisone 20 mg BID PO - 11/28 hydrocortisone 20 mg qday PO - 11/29 AM cortisol before hydrocortisone dosing if still inpatient (otherwise w ill check outpatient) -trend fT4 every other day and fT4 on discharge - labs 1 week post discharge in AM before taking hydrocortisone (orders in; will my chart patient) -outpt Endo consult placed already -cont diuresis -ctm UOP and Cr -Neurosurgery will arrange f/u in 6 weeks for L1 compression fracture -Holding chemo; Onc following andoff - Leigh Melendez RN - 11/25/2019 1:49 AM PDTNursing Handoff Patient Daily Goal: Hank would like to have her pain at a 3/10 or less (11/24/19) Patient Specific Preferences: Raise and lower HOB slowly 2/2 motion sickness. (1999) [facility] IP NURSE HANDOFF: [facility] hospital course events: As per Dr. Uriostegui's note 11/23 evening fabiánn ds: Hank is a 54 y.o. female with prior history of Hodgkin's lymphoma in 2002 who has stage I V advanced renal cell carcinoma with multiple metastases including lung, liver as well as jana mbar spine. Patient had a recent kyphoplasty and was admitted with hypotension and JONO in t he setting of thyrotoxicosis. Patient was on the medicine floor and had a code called for a cute onset of lower extremity pain, swelling shortness of breath, tachycardia and hypotensio n and was brought to the ICU. She had a high PESI score and was started on vasopressor supp ort and stabilized to get a CT chest PE protocol. CT of the head was also ordered to evalua te for new metastases, MRI in August 2019 was negative for intracranial metastases. SAFETY Patient/Family Target: Hank will have intact neurological assessments over night. Progress to Target: Improving As evidenced by: Federico neurological exam was stable over night. Neuro exam interval was changed to q4h per protocol. COMFORT/ANXIETY/BEHAVIOR Patient/Family Target: Patient specific pain goal is 3/10. She is able to rest/sleep comfortably at this level. Progress to Target: Deteriorating As evidenced by: Federico shoulder pain has improved with PRNs and dilaudid for brake through pain. However she woke this morning at 0300 with 7/10 left lower quadrant abdominal pain. Sharp, intermit tent, and crampy. Oxycodone 5 mg, and dilaudid 0.5 Gestational Age: <None> helped to decreas e her pain to a 5/10. Dr. Márquez came to the bedside to evaluate Hank. NURSING ASSESSMENT & RECOMMENDATIONS FORWARD Nursing Assessment of Patient Stability Risk: Moderately stable Recommendations Forward: * Hank prefers to keep on top of her pain management regimen. Ox ycodone 5 mg by mouth every four hours. Lidocaine patch to her lumbar spine, on from 2200 to 1000. Best position for sleeping is side lying. * Neuro checks every 4 hours. lan of Care - Carrie Paiz RD - 11/24/2019 2:58 PM PDTFormatting of this note might be different from the shaneka darling. Problem: Nutrition Interventions Intervention: Food and nutrient distribution type or amount Patient seen yesterday day on 4A just prior to ICU transfer. She reported her appetite was fair on a regular diet. Diet changed to Renal today. She stated her appetite has been decrea sed with cancer treatment since July and she is down from usual wt of 210 lbs (decrease of 15.2% of body wt over 4 months). She has not liked any ONS shakes because they are too sw eet but was willing to try a rome flavored Ensure Clear diluted with water. Hyperkalemia no juice. No phos available. Nutrition focused PE was not done to decrease risk of transmission of COVID-19 to vulnerable populations. Nutrition Dx: Severe protein calorie malnutrition in the context of chronic illness or inju ry related to cancer treatment as evidenced by: Intake of less than 75% of estimated energy requirements for more than/equal to 1 month Weight loss of Greater than 7.5% in 3 months, (actual 15.2% in 3 months) Status: New Nutrition Recs: - Continue Renal diet - Please check phos level and consider diet change to Regular, 2 gm K if it is WNL to prov sadie more food choices in this pt with decreased appetite - Offer Oral Nutritional Supplements with lower K and Phos such as Ensure Clear and Nepro - Encourage good PO intake - Monitor lytes, replete as needed - Bowel care prn Intervention: Nutrition Education (11/22) Provided pt with diet education on potassium content of foods. Reviewed foods high in potassium and suggested alternative low potassium foods. Patient already knew and has bee n avoiding foods high in K. Good questions and understanding. Expect good compliance for K but pt may need additional diet education if other renal restrictions will be needed after discharge. RD following, Leah Paiz, MS, RD, LD Pager #[phone] Admitting Dx: Hank Altman is a 56 y.o. female 54 yo woman with hx lymphoma and current stage IV RCC c/b L2 pathologic fracture s/p kyphoplasty 08/2019 who was found to have incide ntal L2 fracture on surveillance. Admitted with hypotension, JONO and hyperkalemia. (11/22) Tx to ICU with massive PE Past Medical History: Diagnosis Date Hodgkin's disease (HCC) 2001 CHOPP and radiation therapy Hypercalcemia of malignancy Hypertension Hypothyroidism Hypothyroidism Pathologic compression fracture of lumbar vertebra, initial encounter (HCC) Renal cell carcinoma (HCC) clear cell carcinoma of left kidney, 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, lungs, invasion of left pulm onary artery, L2 metastatic spread Diet: Renal PO Intake: 15-70% of meals prior to ICU tx Fluid Intake: Not r ecorded Pertinent Meds: levophed, vasopressen, prilosec, senna Labs incl: K 5.5, BUN 63, Cr 2.50 GI: hard BM x 1 (11/23) UOP: 1475 ml (11/22) I/O: net + 5.3 L since admit Ht: 62" Admit wt: 80.7 kg (pt reported) BMI: 32.8 kg/m2 IBW: 50.0 kg Adj BW: 57 .7 kg UBW: 95.5 kg Current Wt: 85.0 kg (bed wt, 11/20) Wt hx: 95.7 kg (08/16/19) Estimated Nutrition Needs: 5514-3695 kcals (25-30 kcal/kg Adj BW), 69-87 gm protein (1.2-1. 5 gm/kg Adj BW) ignificant Event - Yo Nataly harris RN - 11/23/2019 6:46 PM PDTRRT Call Summary Summary: Unit: 4A TRANS/URO/PL ([id number]) Room #: 18 (11/23/191821) Time Called: 175 (11/23/191821) Time Ended: 1829 (11/23/191821) Recommendations / Interventions: Primary Reason for Call: Code Blue Response (11/23/191821) Other Reason for Call: BP Low;Chest Pain;HR High;Increased Fi02 Needs;IV Start;Sp02 < 90%;T ransport to ICU (11/23/191821) Interventions: 12 Lead EKG;CXR;Fluid Bolus;IV Start;Labs Sent;Supplemental O2;EKG Monitorin g;NIBP Monitoring;SpO2 Monitoring (11/23/191821) Situation: Situation: [facility] called for code blue activation. Patient awake and communicative by the time [facility] [employer] arrives. Primary team at bedside and believes the patient may have vaso-vagaled. After wards, her HR was elevated, her BP was trending down, she required more oxygen and looked di aphoretic, complaining of chest pain. Labs were drawn, EKG and chest x-ray was taken, 1L LR started. Patient transferred to with [facility], MICU fellow and CPRN. Cards to consult. ( 11/23/191821) Background: Background: 54 year old female with a history of Hodgkins lymphoma (2002) c/b hypothyroidis m on levothyroxine, stage IV RCC with osseous mets on nivolumab and ipilimumab, admitted fro m clinic for evaluation of hypotension, hyperkalemia and worsening JONO (11/23/191821) Outcome/Personnel: Outcome: Transferred to ICU (11/23/191821) Physician Notified: Yes (MICU fellow, primary team) (11/23/191821) Caller: Infusion Clinic (11/21/19 1210) [facility] RN: NatalyElectronmary kay signed by Nataly Kaminski RN at 11/23/2019 6:49 PM PDTTran sfer Note - Leigh Ann Hussein DO - 11/23/2019 6:34 PM PDTBRIEF [facility]/TRANSFER NOTE Moose estrada called around 18:00 for acute-onset LLE pain, swelling, shortness of breath. Gonzales ls notable for new atrial fibrillation with RVR, rates between 110-140 bpm, and progressive hypotension (as low as SBP 70-80 mmHg). EKG with new RBBB. CXR, LLE US, troponin, BNP, CMP pending. Unfortunately unable to send to scanner for CTA ch est in s/o JONO. Patient received 1L LR. Evaluated by MICU team with concern for new pulmonar y embolism with R heart strain with finding of new RBBB and atrial fibrillation with RVR, de spite prophylactic heparin BID. Transferred to MICU for consideration of thrombolytic vs. he helen gtt. In brief, patient is a 54 yo F with h/o Hodgkin's lymphoma s/p CHOPP/RT in 2002 c/b hypothy roidism and stage IV RCC c/b L2 pathologic Fx s/p kyphoplasty who was admitted for hypotensi on (80/30-50 mmHg) and JONO, found to have elevated T4 and TSH concerning for thyrotoxicosis, likely related to immunotherapy (ipilimumab and nivolumab). Endocrinology following along w hile inpatient, with improved blood pressure and downtrending T4 and TSH following initiatio n of IV hydrocortisone and brief course of PTU, propanolol and cholestyramine. Hospital cour se now c/b acute hypoxic respiratory failure in s/o LLE pain, redness and swelling and new R BBB, concerning for pulmonary embolism. - Followup CXR, LLE US, troponin, BNP, CMP - TTE to evaluate R heart strain; unfortunately CTA chest contraindicated in s/o JONO - Remainder of plan per progress note dated 11/23/2019 Attending physician for GM1 (Dr. Segura) and receiving MICU team updated on care to date . Please contact with questions or concerns. CODE: Full code SDM(s): Amada Glenna (Sister) -- [phone] Leigh Ann Hussein DO PGY-2 | Internal Medicine [id number] signed by Leigh Ann Hussein DO at 11/23/2019 6:50 PM PDTPlan of Care - Nadiya Monreal MSW - 11/23/2019 6:34 PM PDTSW responded to code. SW provided emotional support to patient's sister. ILAN Lloyd, [facility] Evening/Weekend Social Work Pager: [phone] ignificant Event - Josh Ratliff, MISAEL - 11/23/2019 6:29 PM PDTWhile patient was ambulating supervised in e rosales with her walker, she stated that she felt a new significant pain in her left leg. I e xamined her left leg and it was becoming red, very warm to the touch compared to her right l eg and the swelling was greater. She was unable to ambulate back to bed so I quickly obtaine d a wheel chair and brought her back to her room. While attempting to transfer to bed she sl umped back into the wheelchair becoming unresponsive and lost consciousness. I attempted to palpate for a pulse which I could not feel. I then called a Code Blue and shouted for others to respond and placed a pulse oximeter on her. The team arrived and she regained consciousn ess. Patient was transferred to the ICU.Electronically signed by Josh Garvey RN at 6:46 PM PDTED Teaching Notes - Eulalia Antonio MD,MPH - 11/23/2019 4:00 PM Leo Antonio MD,MPH, Faculty Note: I saw and evaluated the patient and discussed the diagnosis, management, and interpretation of results with the resident. I performed and confirmed the gonsales portions of the service. I have reviewed and agree with the documentation in the provider note. andoff - Maria Luisa Maguire RN - 11/23/2019 12:43 PM PDTNursing Handoff Patient Daily Goal: Hank wants her pain to be managed at 10/17 (11/21/192124) [facility] IP NURSE HANDOFF: [facility] hospital course events: 11/20 went to oncology appt for scheduled infusion of immunotherapy but found to be hypotensive 60/40, tachycardia, hyperkalemia, an d hyponatremia. Also found acute renal injury with significantly elevated T4; image findings of a stable left renal vein thrombus and new L1 compression fracture on CT. HX: Hyperthyroidism, proteinuria, remote h/o Hodgkins 2002 s/p CHOPP + chest rt; actively m anaged with Stage IV RCC on ipo/nevo w/ mets to LN, Lung, Bone, & Liver c/b L2 compression f rx w/ hypercalcemia & hyperkalemia of malignancy As evidenced by: Pt ambulates safely in hallway with walker and supervision, denies any SOB or dizziness d espite lower BP's. On TELE, K+ remains high, last was 5.6. COMFORT/ANXIETY/BEHAVIOR Patient/Family Target: Hank will rate her pain manageable this shift Progress to Target: No Change As evidenced by: Hank wants her pain lowered to 2/10 but she rates her pain consistently at 4-6/10. Pain increases with ambulation. She has PRN oxy 5mg Q4h available, Lidocaine patch placed to low back over night and she stated relief from that. As evidenced by: PIV x2. NURSING ASSESSMENT & RECOMMENDATIONS FORWARD Nursing Assessment of Patient Stability Risk: Moderately unstable Recommendations Forward: - Endocrinology consult workup for immune checkpoint inhibitor-ind uced hyperthyroidism, f/u endocrine recommendations. -BP remains low but higher than previous, asymptomatic. 1 SBA with walker, pain with ambulation and does get fatigue easily. -TELE Hx: Yesterday - AM labs showing worsening creatinine, 1 L Bolus, Dextrose 50 given with 10 unit regular given, calcium gluconate. Follow up labs decreased and rechecked around 1400 Po tassium 6.0. EKG done. Another bolus, dextrose, insulin given. Last K+ (11/22 AM) 5.6. Monito r. Barriers to discharge: TBD. andoff - Lisa Krishnamurthy si, RN - 11/23/2019 5:30 AM PDTNursing Handoff Patient Daily Goal: Hank wants her pain to be managed at 2/10 (11/21/192124) [facility] IP NURSE HANDOFF: [facility] hospital course events: 11/20 went to oncology appt today for augustina eduled infusion of immunotherapy but found to be hypotensive 60/40, tachycardia, hyperkalem ia, and hyponatremia. Also found acute renal injury with significantly elevated T4; image fi ndings of a stable left renal vein thrombus and new L1 compression fracture on CT. HX: Hyperthyroidism, proteinuria, remote h/o Hodgkins 2002 s/p CHOPP + chest rt; actively m anaged with Stage IV RCC on ipo/nevo w/ mets to LN, Lung, Bone, & Liver c/b L2 compression f rx w/ hypercalcemia & hyperkalemia of malignancy COMFORT/ANXIETY/BEHAVIOR Patient/Family Target: Hank will rate her pain manageable this shift Progress to Target: No Change As evidenced by: Hank wants her pain lowered to 2/10 but she rates her pain consistently at 4-6/10. Pain increases with ambulation. She has PRN oxy 5mg Q4h available, received it at beginning of s hift last night and denied any need for it throughout the rest of night. Lidocaine patch michael cayetano to low back over night and she stated relief. NURSING ASSESSMENT & RECOMMENDATIONS FORWARD Nursing Assessment of Patient Stability Risk: Moderately unstable Recommendations Forward: - Endocrinology consult workup for immune checkpoint inhibitor-ind uced hyperthyroidism, f/u endocrine recommendations -BP remains low in the 90s, asymptomatic. 1 SBA with walker, pain with ambulation and does get fatigue easily. -tele Yesterday - AM labs showing worsening creatinine, 1 L Bolus, Dextrose 50 given with 10 unit regular given, calcium gluconate. Follow up labs decreased and recheck around 1400 Potassiu m 6.0. EKG done. Another bolus, dextrose, insulin given. Last K+ (11/22 AM) 5.6. Monitor. Barriers to discharge: TBD. andoff - Jr, Cody newton RN - 11/22/2019 4:00 PM PDTNursing Handoff Patient Daily Goal: Hank wants her pain to be managed at 2/10 (11/21/192124) [facility] IP NURSE HANDOFF: [facility] hospital course events: 11/20 Went to oncology appt today for augustina eduled infusion of immunotherapy but found to be hypotensive 60/40, tachycardia, hyperkalem ia, and hyponatremia. Also found acute renal injury with significantly elevated T4; image fi ndings of a stable left renal vein thrombus and new L1 compression fracture on CT. HX: Hyperthyroidism, proteinuria, remote h/o Hodgkins 2002 s/p CHOPP + chest rt; actively m anaged with Stage IV RCCon ipo/nevo w/ mets to LN, Lung, Bone, & Liver c/b L2 compression fr x w/ hypercalcemia & hyperkalemia of malignancy COMFORT/ANXIETY/BEHAVIOR Patient/Family Target: Hank will rate her pain manageable this shift Progress to Target: No Change As evidenced by: Hank wants her pain lowered to 2/10 but she rates her pain consistently at 4 to 6/10 wi th PRN 5 mg oxycodone q 4 hours. Lidocaine patch did not help. Pain increases with ambulatio n. NURSING ASSESSMENT & RECOMMENDATIONS FORWARD Nursing Assessment of Patient Stability Risk: Moderately unstable Recommendations Forward: - Endocrinology consult workup for immune checkpoint inhibitor-ind uced hyperthyroidism, f/u endocrine recommendations -BP remains low in the 90s, asymptomatic. 1 SBA with walker, pain with ambulation and does get fatigue easily. -tele AM labs showing worsening creatinine, 1 L Bolus, Dextrose 50 given with 10 unit regular giv en, calcium gluconate. Follow up labs decreased and recheck around 1400 Potassium 6.0. EKG d one. Another bolus, dextrose, insulin given. Last K 5.4. Scheduled to be rechecked at 2200. Monitor. Barriers to discharge: TBD. andoff - Day, MISAEL Fragoso - 11/21/2019 10:28 PM PDTNursing Handoff Patient Daily Goal: Hank wants her pain to be managed at 2/10 (11/21/192124) [facility] IP NURSE HANDOFF: [facility] hospital course events: 11/20 Went to oncology appt today for augustina eduled infusion of immunotherapy but found to be hypotension 60/40, tachycardia, hyperkalem ia, and hyponatremia. Also found acute renal injury with significantly elevated T4; image fi ndings of a stable left renal vein thrombus and new L1 compression fracture on CT. HX: Hyperthyroidism, proteinuria, remote h/o Hdogkins 2001 s/p CHOPP + chest rt; actively m anaged with Stage IV RCCon ipo/nevo w/ mets to LN, Lung, Bone, & Liver c/b L2 compression fr x w/ hypercalcemia & hyperkalemia of malignancy COMFORT/ANXIETY/BEHAVIOR Patient/Family Target: Hank will rate her pain manageable this shift Progress to Target: No Change As evidenced by: Hank wants her pain lowered to 2/10 but she rates her pain consistently at 5 to 6/10 wi th PRN 5 mg oxycodone q 4 hours. Lidocaine patch did not help. Pain increases with ambulatio n. NURSING ASSESSMENT & RECOMMENDATIONS FORWARD Nursing Assessment of Patient Stability Risk: Moderately unstable Recommendations Forward: - Endocrinology consult workup for immune checkpoint inhibitor-ind uced hyperthyroidism, f/u endocrine recommendations -BP remains low in the 80s, asymptomatic. 1 SBA with walker, pain with ambulation and does get fatigue easily. AM labs showing worsening creatinine, 1 L Bolus running, Dextrose 50 given with 10 unit reg ular given, Hanging calcium gluconate,. Follow up with labs at noon. Barriers to discharge: TBD. [facility] Devon Bañuelos - 11/21/2019 12:01 PM PDT12:00 PM 11/21/2019 M333, 7 min eta. 54 yof, coming from [facility], was there for infusion. Had low bp initialy of 64 /30, is now 73/50, pulse of 105, no fever. Spo2 is 100%, line started, fluids r unning. Hx o f kidney cancer. A/O x4. ransfer Note - Mary Garcia PA-C - 11/21/2019 11:59 AM PDTReferring Provider Name: WILLEM Haley Referring Provider Specialty/Clinic: Infusin clinic Callback required?: no Reason for calling: Hypotensive, tachycardia , renal failure after CT scan Patient brought to infusion clinic after CT Initial BP 74/57 with HR 106 [employer] called Just IV in Vitals same Dizzy but otherwise asymptomatic Baseline Cr ~1.5 Today Cr 3.8 Coming by ambulance after [employer] [facility] Miranda Mcconnell - 11/21/2019 11:48 AM PDTConnected ref with ED Charge RNElectronically s igned by Miranda Workman at 11/21/2019 11:48 AM PDTdocumented in this encounter Plan of Treatment + +------+--------+ + + | Name | Type | Priori | Associated Diagnoses | Order Schedule | | | | ty | | | + +------+--------+ + + | TSH | Lab | Routin | Hyperthyroidism | Expected: 12/05/2019 | | | | e | | (Approximate), | | | | | | Expires: 12/28/2020 | + +------+--------+ + + | FREE T4 | Lab | Routin | Hyperthyroidism | Expected: 12/05/2019 | | | | e | | (Approximate), | | | | | | Expires: 12/28/2020 | + +------+--------+ + + | CORTISOL, SERUM | Lab | Routin | Hyperthyroidism | Expected: 12/05/2019 | | | | e | | (Approximate), | | | | | | Expires: 12/28/2020 | + +------+--------+ + + | BASIC METABOLIC SET | Lab | Routin | Hyperthyroidism | Expected: 12/05/2019 | | (NA, K, CL, TCO2, | | e | | (Approximate), | | BUN, CR, GLU, CA) | | | | Expires: 12/28/2020 | + +------+--------+ + + | BASIC METABOLIC SET | Lab | Routin | JONO (acute kidney | Ordered: 11/29/2019 | | (NA, K, CL, TCO2, | | e | injury) (HCC) | | | BUN, CR, GLU, CA) | | | Hyperthyroidism | | + +------+--------+ + + | FREE T4 | Lab | Routin | JONO (acute kidney | Ordered: 11/29/2019 | | | | e | injury) (HCC) | | | | | | Hyperthyroidism | | + +------+--------+ + + documented as of this encounter Procedures + +--------+ + + + | Procedure Name | Priori | Date/Time | Associated Diagnosis | Comments | | | ty | | | | + +--------+ + + + | CAPILLARY BLOOD | Routin | 11/29/2019 | Hypotension, | Results for this | | GLUCOSE (NO CHG), | e | 9:24 AM | unspecified | procedure are in the | | POC | | PDT | hypotension type | results section. | + +--------+ + + + | CAPILLARY BLOOD | Routin | 11/29/2019 | Hypotension, | Results for this | | GLUCOSE (NO CHG), | e | 8:50 AM | unspecified | procedure are in the | | POC | | PDT | hypotension type | results section. | + +--------+ + + + | BENTON ACTH STM 60 | Routin | 11/29/2019 | | Results for this | | | e | 6:37 AM | | procedure are in the | | | | PDT | | results section. | + +--------+ + + + | BENTON ACTH STM 30 | Routin | 11/29/2019 | | Results for this | | | e | 6:06 AM | | procedure are in the | | | | PDT | | results section. | + +--------+ + + + | CORTISOL, SERUM | Routin | 11/29/2019 | | Results for this | | | e | 6:06 AM | | procedure are in the | | | | PDT | | results section. | + +--------+ + + + | BENTON ACTH STM 0 | Routin | 11/29/2019 | | Results for this | | | e | 5:28 AM | | procedure are in the | | | | PDT | | results section. | + +--------+ + + + | ACTH STIMULATION | Routin | 11/29/2019 | | Results for this | | TEST (0,30,60), | e | 5:28 AM | | procedure are in the | | SERUM | | PDT | | results section. | + +--------+ + + + | ACTH, PLASMA | Routin | 11/29/2019 | | Results for this | | | e | 5:28 AM | | procedure are in the | | | | PDT | | results section. | + +--------+ + + + | BASIC METABOLIC SET | Routin | 11/29/2019 | | Results for this | | (NA, K, CL, TCO2, | e | 5:28 AM | | procedure are in the | | BUN, CR, GLU, CA) | | PDT | | results section. | + +--------+ + + + | FREE T4 | Urgent | 11/29/2019 | | Results for this | | | | 5:28 AM | | procedure are in the | | | | PDT | | results section. | + +--------+ + + + | TSH | Routin | 11/29/2019 | JONO (acute kidney | Results for this | | | e | 5:28 AM | injury) (HCC) | procedure are in the | | | | PDT | Hyperthyroidism | results section. | + +--------+ + + + | CORTISOL, SERUM | Routin | 11/29/2019 | | Results for this | | | e | 5:28 AM | | procedure are in the | | | | PDT | | results section. | + +--------+ + + + | CAPILLARY BLOOD | Routin | 11/28/2019 | Hypotension, | Results for this | | GLUCOSE (NO CHG), | e | 10:49 PM | unspecified | procedure are in the | | POC | | PDT | hypotension type | results section. | + +--------+ + + + | CAPILLARY BLOOD | Routin | 11/28/2019 | Hypotension, | Results for this | | GLUCOSE (NO CHG), | e | 6:57 PM | unspecified | procedure are in the | | POC | | PDT | hypotension type | results section. | + +--------+ + + + | CAPILLARY BLOOD | Routin | 11/28/2019 | Hypotension, | Results for this | | GLUCOSE (NO CHG), | e | 2:13 PM | unspecified | procedure are in the | | POC | | PDT | hypotension type | results section. | + +--------+ + + + | CAPILLARY BLOOD | Routin | 11/28/2019 | Hypotension, | Results for this | | GLUCOSE (NO CHG), | e | 9:04 AM | unspecified | procedure are in the | | POC | | PDT | hypotension type | results section. | + +--------+ + + + | BASIC METABOLIC SET | Routin | 11/28/2019 | | Results for this | | (NA, K, CL, TCO2, | e | 3:31 AM | | procedure are in the | | BUN, CR, GLU, CA) | | PDT | | results section. | + +--------+ + + + | FREE T4 | Urgent | 11/28/2019 | | Results for this | | | | 3:31 AM | | procedure are in the | | | | PDT | | results section. | + +--------+ + + + | HB-LAB | Routin | 11/27/2019 | | Results for this | | HEPARIN,EITHER | e | 6:54 PM | | procedure are in the | | STD/LMW | | PDT | | results section. | + +--------+ + + + | CAPILLARY BLOOD | Routin | 11/27/2019 | Hypotension, | Results for this | | GLUCOSE (NO CHG), | e | 6:52 PM | unspecified | procedure are in the | | POC | | PDT | hypotension type | results section. | + +--------+ + + + | CAPILLARY BLOOD | Routin | 11/27/2019 | Hypotension, | Results for this | | GLUCOSE (NO CHG), | e | 2:12 PM | unspecified | procedure are in the | | POC | | PDT | hypotension type | results section. | + +--------+ + + + | CAPILLARY BLOOD | Routin | 11/27/2019 | Hypotension, | Results for this | | GLUCOSE (NO CHG), | e | 9:11 AM | unspecified | procedure are in the | | POC | | PDT | hypotension type | results section. | + +--------+ + + + | BASIC METABOLIC SET | Routin | 11/27/2019 | | Results for this | | (NA, K, CL, TCO2, | e | 3:25 AM | | procedure are in the | | BUN, CR, GLU, CA) | | PDT | | results section. | + +--------+ + + + | FREE T4 | Urgent | 11/27/2019 | | Results for this | | | | 3:25 AM | | procedure are in the | | | | PDT | | results section. | + +--------+ + + + | CARDIOLOGY | | 11/27/2019 | | Results for this | | | | 12:00 AM | | procedure are in the | | | | PDT | | results section. | + +--------+ + + + | CARDIOLOGY | | 11/27/2019 | | Results for this | | | | 12:00 AM | | procedure are in the | | | | PDT | | results section. | + +--------+ + + + | CAPILLARY BLOOD | Routin | 11/26/2019 | Hypotension, | Results for this | | GLUCOSE (NO CHG), | e | 7:11 PM | unspecified | procedure are in the | | POC | | PDT | hypotension type | results section. | + +--------+ + + + | HB-LAB | Urgent | 11/26/2019 | | Results for this | | HEPARIN,EITHER | | 9:10 AM | | procedure are in the | | STD/LMW | | PDT | | results section. | + +--------+ + + + | CBC (HEMOGRAM) ONLY | Urgent | 11/26/2019 | | Results for this | | | | 5:02 AM | | procedure are in the | | | | PDT | | results section. | + +--------+ + + + | CAPILLARY BLOOD | Routin | 11/26/2019 | Hypotension, | Results for this | | GLUCOSE (NO CHG), | e | 5:02 AM | unspecified | procedure are in the | | POC | | PDT | hypotension type | results section. | + +--------+ + + + | LIVER SET | Urgent | 11/26/2019 | | Results for this | | (AST,ALT,BILI | | 5:02 AM | | procedure are in the | | TOTAL,BILI | | PDT | | results section. | | DIRECT,ALK | | | | | | PHOS,ALB,PROT TOTAL) | | | | | + +--------+ + + + | BASIC METABOLIC SET | Routin | 11/26/2019 | | Results for this | | (NA, K, CL, TCO2, | e | 5:02 AM | | procedure are in the | | BUN, CR, GLU, CA) | | PDT | | results section. | + +--------+ + + + | CBC ONLY | Urgent | 11/26/2019 | | Results for this | | | | 5:02 AM | | procedure are in the | | | | PDT | | results section. | + +--------+ + + + | FREE T4 | Urgent | 11/26/2019 | | Results for this | | | | 5:02 AM | | procedure are in the | | | | PDT | | results section. | + +--------+ + + + | CARDIOLOGY | | 11/26/2019 | | Results for this | | | | 12:00 AM | | procedure are in the | | | | PDT | | results section. | + +--------+ + + + | HB-LAB | Urgent | 11/25/2019 | | Results for this | | HEPARIN,EITHER | | 8:34 PM | | procedure are in the | | STD/LMW | | PDT | | results section. | + +--------+ + + + | BASIC METABOLIC SET | Routin | 11/25/2019 | | Results for this | | (NA, K, CL, TCO2, | e | 4:49 PM | | procedure are in the | | BUN, CR, GLU, CA) | | PDT | | results section. | + +--------+ + + + | HB-LAB | Urgent | 11/25/2019 | | Results for this | | HEPARIN,EITHER | | 12:05 PM | | procedure are in the | | STD/LMW | | PDT | | results section. | + +--------+ + + + | BASIC METABOLIC SET | Routin | 11/25/2019 | | Results for this | | (NA, K, CL, TCO2, | e | 9:48 AM | | procedure are in the | | BUN, CR, GLU, CA) | | PDT | | results section. | + +--------+ + + + | CBC (HEMOGRAM) ONLY | Urgent | 11/25/2019 | | Results for this | | | | 3:53 AM | | procedure are in the | | | | PDT | | results section. | + +--------+ + + + | HB-LAB | Urgent | 11/25/2019 | | Results for this | | HEPARIN,EITHER | | 3:53 AM | | procedure are in the | | STD/LMW | | PDT | | results section. | + +--------+ + + + | TROPONIN I, PLASMA | Urgent | 11/25/2019 | | Results for this | | | | 3:53 AM | | procedure are in the | | | | PDT | | results section. | + +--------+ + + + | CBC ONLY | Urgent | 11/25/2019 | | Results for this | | | | 3:53 AM | | procedure are in the | | | | PDT | | results section. | + +--------+ + + + | FREE T4 | Urgent | 11/25/2019 | | Results for this | | | | 3:53 AM | | procedure are in the | | | | PDT | | results section. | + +--------+ + + + | BASIC METABOLIC SET | Routin | 11/25/2019 | | Results for this | | (NA, K, CL, TCO2, | e | 12:44 AM | | procedure are in the | | BUN, CR, GLU, CA) | | PDT | | results section. | + +--------+ + + + | HB-LAB | Urgent | 11/24/2019 | | Results for this | | HEPARIN,EITHER | | 6:38 PM | | procedure are in the | | STD/LMW | | PDT | | results section. | + +--------+ + + + | BASIC METABOLIC SET | Routin | 11/24/2019 | | Results for this | | (NA, K, CL, TCO2, | e | 4:52 PM | | procedure are in the | | BUN, CR, GLU, CA) | | PDT | | results section. | + +--------+ + + + | CO-OXIMETER PANEL, | Urgent | 11/24/2019 | | Results for this | | BLOOD | | 4:52 PM | | procedure are in the | | | | PDT | | results section. | + +--------+ + + + | BASIC METABOLIC SET | Urgent | 11/24/2019 | | Results for this | | (NA, K, CL, TCO2, | | 11:35 AM | | procedure are in the | | BUN, CR, GLU, CA) | | PDT | | results section. | + +--------+ + + + | CO-OXIMETER PANEL, | Urgent | 11/24/2019 | | Results for this | | BLOOD | | 11:35 AM | | procedure are in the | | | | PDT | | results section. | + +--------+ + + + | CAPILLARY BLOOD | Routin | 11/24/2019 | Hypotension, | Results for this | | GLUCOSE (NO CHG), | e | 10:00 AM | unspecified | procedure are in the | | POC | | PDT | hypotension type | results section. | + +--------+ + + + | APTT (ACT. PART. | Urgent | 11/24/2019 | | Results for this | | THROMBO TIME) | | 9:58 AM | | procedure are in the | | | | PDT | | results section. | + +--------+ + + + | VASC LAB VENOUS | Routin | 11/24/2019 | | Results for this | | DUPLEX LOWER | e | 9:16 AM | | procedure are in the | | EXTREMITY BILAT COMP | | PDT | | results section. | + +--------+ + + + | APTT (ACT. PART. | Urgent | 11/24/2019 | | Results for this | | THROMBO TIME) | | 6:05 AM | | procedure are in the | | | | PDT | | results section. | + +--------+ + + + | NT-PRO BNP | Urgent | 11/24/2019 | | Results for this | | | | 4:02 AM | | procedure are in the | | | | PDT | | results section. | + +--------+ + + + | CBC (HEMOGRAM) ONLY | Urgent | 11/24/2019 | | Results for this | | | | 4:02 AM | | procedure are in the | | | | PDT | | results section. | + +--------+ + + + | BASIC METABOLIC SET | Routin | 11/24/2019 | | Results for this | | (NA, K, CL, TCO2, | e | 4:02 AM | | procedure are in the | | BUN, CR, GLU, CA) | | PDT | | results section. | + +--------+ + + + | CBC ONLY | Urgent | 11/24/2019 | | Results for this | | | | 4:02 AM | | procedure are in the | | | | PDT | | results section. | + +--------+ + + + | APTT (ACT. PART. | Urgent | 11/24/2019 | | Results for this | | THROMBO TIME) | | 4:02 AM | | procedure are in the | | | | PDT | | results section. | + +--------+ + + + | FREE T4 | Urgent | 11/24/2019 | | Results for this | | | | 4:02 AM | | procedure are in the | | | | PDT | | results section. | + +--------+ + + + | CVL | Routin | 11/23/2019 | | Results for this | | | e | 11:29 PM | | procedure are in the | | | | PDT | | results section. | + +--------+ + + + | 12 LEAD ECG | Routin | 11/23/2019 | | Results for this | | | e | 11:29 PM | | procedure are in the | | | | PDT | | results section. | + +--------+ + + + | TROPONIN I, PLASMA | Urgent | 11/23/2019 | | Results for this | | | | 11:27 PM | | procedure are in the | | | | PDT | | results section. | + +--------+ + + + | BASIC METABOLIC SET | Urgent | 11/23/2019 | | Results for this | | (NA, K, CL, TCO2, | | 11:27 PM | | procedure are in the | | BUN, CR, GLU, CA) | | PDT | | results section. | + +--------+ + + + | CAPILLARY BLOOD | Routin | 11/23/2019 | Hypotension, | Results for this | | GLUCOSE (NO CHG), | e | 11:25 PM | unspecified | procedure are in the | | POC | | PDT | hypotension type | results section. | + +--------+ + + + | APTT (ACT. PART. | Urgent | 11/23/2019 | | Results for this | | THROMBO TIME) | | 10:48 PM | | procedure are in the | | | | PDT | | results section. | + +--------+ + + + | CT ABDOMEN W IV | Routin | 11/23/2019 | | Results for this | | CONTRAST | e | 9:51 PM | | procedure are in the | | | | PDT | | results section. | + +--------+ + + + | CTA CHEST PULMONARY | Urgent | 11/23/2019 | | Results for this | | EMBOLISM W CONTRAST | | 9:49 PM | | procedure are in the | | | | PDT | | results section. | + +--------+ + + + | CT HEAD WO CONTRAST | Urgent | 11/23/2019 | | Results for this | | | | 9:37 PM | | procedure are in the | | | | PDT | | results section. | + +--------+ + + + | X-RAY PORTABLE CHEST | Routin | 11/23/2019 | | Results for this | | 1 VIEW | e | 8:17 PM | | procedure are in the | | | | PDT | | results section. | + +--------+ + + + | ART LINE | Routin | 11/23/2019 | | Results for this | | | e | 7:48 PM | | procedure are in the | | | | PDT | | results section. | + +--------+ + + + | TRANSTHORACIC | Routin | 11/23/2019 | | Results for this | | ECHOCARDIOGRAM, | e | 6:54 PM | | procedure are in the | | ADULT | | PDT | | results section. | + +--------+ + + + | X-RAY PORTABLE CHEST | Urgent | 11/23/2019 | | Results for this | | 1 VIEW | | 6:29 PM | | procedure are in the | | | | PDT | | results section. | + +--------+ + + + | CBC (HEMOGRAM) ONLY | Urgent | 11/23/2019 | | Results for this | | | | 6:25 PM | | procedure are in the | | | | PDT | | results section. | + +--------+ + + + | CBC ONLY | Urgent | 11/23/2019 | | Results for this | | | | 6:25 PM | | procedure are in the | | | | PDT | | results section. | + +--------+ + + + | NT-PRO BNP | Routin | 11/23/2019 | | Results for this | | | e | 6:23 PM | | procedure are in the | | | | PDT | | results section. | + +--------+ + + + | HB-LAB | Urgent | 11/23/2019 | | Results for this | | HEPARIN,EITHER | | 6:23 PM | | procedure are in the | | STD/LMW | | PDT | | results section. | + +--------+ + + + | INR | Urgent | 11/23/2019 | | Results for this | | | | 6:23 PM | | procedure are in the | | | | PDT | | results section. | + +--------+ + + + | TROPONIN I, PLASMA | Routin | 11/23/2019 | | Results for this | | | e | 6:23 PM | | procedure are in the | | | | PDT | | results section. | + +--------+ + + + | COMPLETE METABOLIC | Routin | 11/23/2019 | | Results for this | | SET | e | 6:23 PM | | procedure are in the | | (NA,K,CL,CO2,BUN,CRE | | PDT | | results section. | | AT,GLUC,CA,AST,ALT,B | | | | | | MARTIN TOTAL,ALK | | | | | | PHOS,ALB,PROT TOTAL) | | | | | + +--------+ + + + | APTT (ACT. PART. | Urgent | 11/23/2019 | | Results for this | | THROMBO TIME) | | 6:23 PM | | procedure are in the | | | | PDT | | results section. | + +--------+ + + + | 12 LEAD ECG | Routin | 11/23/2019 | | Results for this | | | e | 6:08 PM | | procedure are in the | | | | PDT | | results section. | + +--------+ + + + | BASIC METABOLIC SET | Routin | 11/23/2019 | Hyperthyroidism | Results for this | | (NA, K, CL, TCO2, | e | 4:01 PM | | procedure are in the | | BUN, CR, GLU, CA) | | PDT | | results section. | + +--------+ + + + | RENIN, PLASMA | Routin | 11/23/2019 | | Results for this | | | e | 9:46 AM | | procedure are in the | | | | PDT | | results section. | + +--------+ + + + | ALDOSTERONE, SERUM | Routin | 11/23/2019 | | Results for this | | | e | 9:46 AM | | procedure are in the | | | | PDT | | results section. | + +--------+ + + + | CBC AND AUTO DIFF | Urgent | 11/23/2019 | | Results for this | | | | 4:46 AM | | procedure are in the | | | | PDT | | results section. | + +--------+ + + + | CBC, WITH | Urgent | 11/23/2019 | | Results for this | | DIFFERENTIAL | | 4:46 AM | | procedure are in the | | | | PDT | | results section. | + +--------+ + + + | BASIC METABOLIC SET | Routin | 11/23/2019 | | Results for this | | (NA, K, CL, TCO2, | e | 4:46 AM | | procedure are in the | | BUN, CR, GLU, CA) | | PDT | | results section. | + +--------+ + + + | FREE T4 | Urgent | 11/23/2019 | | Results for this | | | | 4:46 AM | | procedure are in the | | | | PDT | | results section. | + +--------+ + + + | TSH | Urgent | 11/23/2019 | | Results for this | | | | 4:46 AM | | procedure are in the | | | | PDT | | results section. | + +--------+ + + + | BASIC METABOLIC SET | Routin | 11/23/2019 | | Results for this | | (NA, K, CL, TCO2, | e | 1:54 AM | | procedure are in the | | BUN, CR, GLU, CA) | | PDT | | results section. | + +--------+ + + + | CARDIOLOGY | | 11/23/2019 | | Results for this | | | | 12:00 AM | | procedure are in the | | | | PDT | | results section. | + +--------+ + + + | CARDIOLOGY | | 11/23/2019 | | Results for this | | | | 12:00 AM | | procedure are in the | | | | PDT | | results section. | + +--------+ + + + | CARDIOLOGY | | 11/23/2019 | | Results for this | | | | 12:00 AM | | procedure are in the | | | | PDT | | results section. | + +--------+ + + + | CARDIOLOGY | | 11/23/2019 | | Results for this | | | | 12:00 AM | | procedure are in the | | | | PDT | | results section. | + +--------+ + + + | CARDIOLOGY | | 11/23/2019 | | Results for this | | | | 12:00 AM | | procedure are in the | | | | PDT | | results section. | + +--------+ + + + | POTASSIUM, PLASMA | Routin | 11/22/2019 | | Results for this | | | e | 9:40 PM | | procedure are in the | | | | PDT | | results section. | + +--------+ + + + | POTASSIUM, PLASMA | Routin | 11/22/2019 | | Results for this | | | e | 6:14 PM | | procedure are in the | | | | PDT | | results section. | + +--------+ + + + | CAPILLARY BLOOD | Routin | 11/22/2019 | Hypotension, | Results for this | | GLUCOSE (NO CHG), | e | 5:45 PM | unspecified | procedure are in the | | POC | | PDT | hypotension type | results section. | + +--------+ + + + | CAPILLARY BLOOD | Routin | 11/22/2019 | Hypotension, | Results for this | | GLUCOSE (NO CHG), | e | 5:14 PM | unspecified | procedure are in the | | POC | | PDT | hypotension type | results section. | + +--------+ + + + | 12 LEAD ECG | Routin | 11/22/2019 | | Results for this | | | e | 3:54 PM | | procedure are in the | | | | PDT | | results section. | + +--------+ + + + | BASIC METABOLIC SET | Routin | 11/22/2019 | | Results for this | | (NA, K, CL, TCO2, | e | 2:23 PM | | procedure are in the | | BUN, CR, GLU, CA) | | PDT | | results section. | + +--------+ + + + | BASIC METABOLIC SET | Routin | 11/22/2019 | | Results for this | | (NA, K, CL, TCO2, | e | 10:42 AM | | procedure are in the | | BUN, CR, GLU, CA) | | PDT | | results section. | + +--------+ + + + | TRANSTHORACIC | Urgent | 11/22/2019 | | Results for this | | ECHOCARDIOGRAM, | | 9:28 AM | | procedure are in the | | ADULT | | PDT | | results section. | + +--------+ + + + | CAPILLARY BLOOD | Routin | 11/22/2019 | Hypotension, | Results for this | | GLUCOSE (NO CHG), | e | 7:36 AM | unspecified | procedure are in the | | POC | | PDT | hypotension type | results section. | + +--------+ + + + | CAPILLARY BLOOD | Routin | 11/22/2019 | Hypotension, | Results for this | | GLUCOSE (NO CHG), | e | 7:19 AM | unspecified | procedure are in the | | POC | | PDT | hypotension type | results section. | + +--------+ + + + | SODIUM TOTAL, URINE | Routin | 11/22/2019 | | Results for this | | | e | 6:06 AM | | procedure are in the | | | | PDT | | results section. | + +--------+ + + + | CREATININE, URINE | Routin | 11/22/2019 | | Results for this | | | e | 6:06 AM | | procedure are in the | | | | PDT | | results section. | + +--------+ + + + | CBC AND AUTO DIFF | Urgent | 11/22/2019 | | Results for this | | | | 4:14 AM | | procedure are in the | | | | PDT | | results section. | + +--------+ + + + | CBC, WITH | Urgent | 11/22/2019 | | Results for this | | DIFFERENTIAL | | 4:14 AM | | procedure are in the | | | | PDT | | results section. | + +--------+ + + + | COMPLETE METABOLIC | Urgent | 11/22/2019 | | Results for this | | SET | | 4:14 AM | | procedure are in the | | (NA,K,CL,CO2,BUN,CRE | | PDT | | results section. | | AT,GLUC,CA,AST,ALT,B | | | | | | MARTIN TOTAL,ALK | | | | | | PHOS,ALB,PROT TOTAL) | | | | | + +--------+ + + + | FREE T4 | Urgent | 11/22/2019 | | Results for this | | | | 4:14 AM | | procedure are in the | | | | PDT | | results section. | + +--------+ + + + | TSH | Urgent | 11/22/2019 | | Results for this | | | | 4:14 AM | | procedure are in the | | | | PDT | | results section. | + +--------+ + + + | THYROID STIMULATING | Urgent | 11/21/2019 | | Results for this | | IMMUNOGLOBULIN, | | 7:26 PM | | procedure are in the | | SERUM | | PDT | | results section. | + +--------+ + + + | THYROID PEROXIDASE | Urgent | 11/21/2019 | | Results for this | | AB, SERUM | | 7:26 PM | | procedure are in the | | | | PDT | | results section. | + +--------+ + + + | NT-PRO BNP | Urgent | 11/21/2019 | | Results for this | | | | 7:09 PM | | procedure are in the | | | | PDT | | results section. | + +--------+ + + + | TROPONIN I, PLASMA | Urgent | 11/21/2019 | | Results for this | | | | 7:09 PM | | procedure are in the | | | | PDT | | results section. | + +--------+ + + + | COMPLETE METABOLIC | Urgent | 11/21/2019 | | Results for this | | SET | | 7:09 PM | | procedure are in the | | (NA,K,CL,CO2,BUN,CRE | | PDT | | results section. | | AT,GLUC,CA,AST,ALT,B | | | | | | MARTIN TOTAL,ALK | | | | | | PHOS,ALB,PROT TOTAL) | | | | | + +--------+ + + + | T3 TOTAL, SERUM | Urgent | 11/21/2019 | | Results for this | | | | 7:09 PM | | procedure are in the | | | | PDT | | results section. | + +--------+ + + + | 12 LEAD ECG | Routin | 11/21/2019 | | Results for this | | | e | 6:25 PM | | procedure are in the | | | | PDT | | results section. | + +--------+ + + + | UA, DIPSTICK ONLY | Urgent | 11/21/2019 | | Results for this | | | | 2:07 PM | | procedure are in the | | | | PDT | | results section. | + +--------+ + + + | URINE, MICROSCOPIC | Urgent | 11/21/2019 | | Results for this | | EXAM | | 2:07 PM | | procedure are in the | | | | PDT | | results section. | + +--------+ + + + | LACTATE | Urgent | 11/21/2019 | | Results for this | | | | 1:23 PM | | procedure are in the | | | | PDT | | results section. | + +--------+ + + + | 12 LEAD ECG | Routin | 11/21/2019 | | Results for this | | | e | 1:06 PM | | procedure are in the | | | | PDT | | results section. | + +--------+ + + + | X-RAY PORTABLE CHEST | Urgent | 11/21/2019 | | Results for this | | 1 VIEW | | 12:46 PM | | procedure are in the | | | | PDT | | results section. | + +--------+ + + + | ED INFORMATION | Routin | 11/21/2019 | | Results for this | | EXCHANGE | e | 12:11 PM | | procedure are in the | | | | PDT | | results section. | + +--------+ + + + | TROPONIN I, PLASMA | Urgent | 11/21/2019 | | Results for this | | | | 8:50 AM | | procedure are in the | | | | PDT | | results section. | + +--------+ + + + | CARDIOLOGY | | 11/21/2019 | | Results for this | | | | 12:00 AM | | procedure are in the | | | | PDT | | results section. | + +--------+ + + + | CARDIOLOGY | | 11/21/2019 | | Results for this | | | | 12:00 AM | | procedure are in the | | | | PDT | | results section. | + +--------+ + + + documented in this encounter Results CAPILLARY BLOOD GLUCOSE (NO CHG), POC (11/29/2019 9:24 AM PDT) + +-------+ + + + | Component | Value | Ref Range | Performed | Pathologist | | | | | At | Signature | + +-------+ + + + | BLOOD | 99 | 70 - 99 mg/dL | [facility] | | | GLUCOSE, | | | [facility] | | | POC | | | [place] | | | | | | OF CARE | | | | | | TESTS | | + +-------+ + + + + + | Specimen | + + | Blood | + + + + + + + | Performing | Address | City/State/Zipcode | Phone Number | | Organization | | | | + + + + + | [facility] | [address] | [place], [place] | | | K[facility]EN [facility] OF [place] | [facility] | [phone] | | | TESTS | | | | + + + + + CAPILLARY BLOOD GLUCOSE (NO CHG), POC (11/29/2019 8:50 AM PDT) + +--------+ + + + | Component | Value | Ref Range | Performed | Pathologist | | | | | At | Signature | + +--------+ + + + | BLOOD | 64 (L) | 70 - 99 mg/dL | [facility] - | | | GLUCOSE, | | | [place] | | | POC | | | [facility] | | | | | | OF CARE | | | | | | TESTS | | + +--------+ + + + + + | Specimen | + + | Blood | + + + + + + + | Performing | Address | City/State/Zipcode | Phone Number | | Organization | | | | + + + + + | [facility] | [address] | [place], [place] | | | [facility] OF [facility] | [address] | [address] | | | TESTS | | | | + + + + + BENTON ACTH STM 60 (11/29/2019 6:37 AM PDT) + +-------+ + + + | Component | Value | Ref Range | Performed | Pathologist | | | | | At | Signature | + +-------+ + + + | CORTISOL, | 29.1 | ug/dL | [facility] | | | 60 MINUTE | | | LABORATORY | | | | | | SERVICES, | | | | | | CORE | | + +-------+ + + + + + | Specimen | + + | Blood - Blood | | (substance) | + + + + + | Narrative | Performed At | + + + | Reference Range: Normal response at 30 or 60 minutes: peak greater | [facility] | | than 20 ug/dL. Check baseline serum cortisol and ACTH before | LABORATORY | | cosyntropin injection at 0500 on 11/29/2019. Drawn a serum cortisol 30 | SERVICES, CORE | | and 60 min post cosyntropin injection. Do not give AM hydrocortisone | | | dose until test is complete. | | + + + + + + + + | Performing | Address | City/State/Zipcode | Phone Number | | Organization | | | | + + + + + | [facility] | [address] | [place] [address] | | | SERVICES, CORE | [address] | | | + + + + + BENTON ACTH STM 30 (11/29/2019 6:06 AM PDT) + +-------+ + + + | Component | Value | Ref Range | Performed | Pathologist | | | | | At | Signature | + +-------+ + + + | CORTISOL, | 26.3 | ug/dL | [facility] | | | 30 MINUTE | | | LABORATORY | | | | | | SERVICES, | | | | | | CORE | | + +-------+ + + + + + | Specimen | + + | Blood - Blood | | (substance) | + + + + + | Narrative | Performed At | + + + | Reference Range: Normal response at 30 or 60 minutes: peak greater | [facility] | | than 20 ug/dL. Check baseline serum cortisol and ACTH before | LABORATORY | | cosyntropin injection at 0500 on 11/29/2019. Drawn a serum cortisol 30 | SERVICES, CORE | | and 60 min post cosyntropin injection. Do not give AM hydrocortisone | | | dose until test is complete. | | + + + + + + + + | Performing | Address | City/State/Zipcode | Phone Number | | Organization | | | | + + + + + | [facility] | [address] [facility] | [place] [address] | | | SERVICES, CORE | [address] | | | + + + + + CORTISOL, SERUM (11/29/2019 6:06 AM PDT) + +-------+ + + + | Component | Value | Ref Range | Performed | Pathologist | | | | | At | Signature | + +-------+ + + + | CORTISOL, | 26.4 | ug/dL | [facility] | | | [...] 3.4-16.8 ug/dL | LABORATORY | | | SERVICES, CORE | + + + + + + + + | Performing | Address | City/State/Zipcode | Phone Number | | Organization | | | | + + + + + | [facility] | [address] | [place] [address] | | | SERVICES, CORE | [address] | | | + + + + + TSH (11/29/2019 5:28 AM PDT) + + + + + + | Component | Value | Ref Range | Performed | Pathologist | | | | | At | Signature | + + + + + + | TSH | 33.20 (H) | 0.50 - 5.07 | [facility] [...] + + | [facility] | [address] | [place] [address] | | | SERVICES, CORE | [address] | | | + + + + + BENTON ACTH STM 0 (11/29/2019 5:28 AM PDT) + +-------+ + + + | Component | Value | Ref Range | Performed | Pathologist | | | | | At | Signature | + +-------+ + + + | CORTISOL, | 21.7 | ug/dL | [facility] | | | BASELINE | | | LABORATORY | | | [...] | | collect(3-5 pm) = 3.4-16.8 ug/dL Check baseline serum cortisol and | LABORATORY | | ACTH before cosyntropin injection at 0500 on 11/29/2019. Drawn a serum | SERVICES, CORE | | cortisol 30 and 60 min post cosyntropin injection. Do not give AM | | | hydrocortisone dose until test is complete. | | + + + + + + + + | Performing | Address | City/State/Zipcode | Phone Number | | Organization | | | | + + + + + | [facility] | [address] [facility] | [place] [address] | | | SERVICES, CORE | [address] | | | + + + + + BASIC METABOLIC SET (NA, K, CL, TCO2, BUN, CR, GLU, CA) (11/29/2019 5:28 AM PDT) + + + + + + | Component | Value | Ref Range | Performed | Pathologist | | | | | At | Signature | + + + + + + | GLUCOSE, | 76 | 70 - 99 mg/dL | [facility] | | | PLASMA | | | LABORATORY | | | (LAB) | | | SERVICES, | | | | | | CORE | | + + + + + + | BUN, PLASMA | 36 (H) | 6 - 20 mg/dL | [facility] | | | (LAB) | | | LABORATORY | | | | | | SERVICES, | | | | | | CORE | | + + + + + + | CREATININE | 1.38 (H) | 0.60 - 1.10 | [facility] | | | PLASMA | | mg/dL | LABORATORY | | | (LAB) | | | SERVICES, | | | | | | CORE | | + + + + + + | EGFR | 48 (L) | >60 mL/min | [facility] | | | - | | | LABORATORY | | | STATELESS | | | SERVICES, | | | | | | CORE | | + + + + + + | EGFR NON | 40 (L) | >60 mL/min | [facility] | | | -LISA | | | LABORATORY | | | RICAN | | | SERVICES, | | | | | | CORE | | + + + + + + | SODIUM, | 142 | 136 - 145 | [facility] | | | PLASMA | | mmol/L | LABORATORY | | | (LAB) | | | SERVICES, | | | | | | CORE | | + + + + + + | POTASSIUM, | 3.6 | 3.4 - 5.0 | [facility] | | | PLASMA | | mmol/L | LABORATORY | | | (LAB) | | | SERVICES, | | | | | | CORE | | + + + + + + | CHLORIDE, | 115 (H) | 97 - 108 mmol/L | [facility] | | | PLASMA | | | LABORATORY | | | (LAB) | | | SERVICES, | | | | | | CORE | | + + + + + + | TOTAL CO2, | 18 (L) | 21 - 32 mmol/L | [facility] | | | PLASMA | | | LABORATORY | | | (LAB) | | | SERVICES, | | | | | | CORE | | + + + + + + | CALCIUM, | 7.6 (L) | 8.6 - 10.2 | [facility] | | | PLASMA | | mg/dL | LABORATORY | | | (LAB) | | | SERVICES, | | | | | | CORE | | + + + + + + | ANION GAP | 9 | 4 - 11 mmol/L | [facility] | | | | | | LABORATORY | | | | | | SERVICES, | | | | | | CORE | | + + + + + + | POTASSIUM | No Hemo | | [facility] | | | CMNT | | | LABORATORY | | | | | | SERVICES, | | | | | | CORE | | + + + + + + | BUN/CREATIN | 26 (H) | 8 - 25 | [facility] | [...] MDRD equation recommended by the National | [facility] | | Kidney Disease Education Program. Estimated GFR Interpretive | LABORATORY | | Information: <60 mL/min/1.73 sq m Chronic Kidney | SERVICES, CORE | | Disease <15 mL/min/1.73 sq m Kidney Failure | | | Estimated GFR greater than 60 mL/min/1.73 sq m is of limited clinical | | | value. The MDRD equation is not valid in the following situations: | | | - Patients under 18 years [...] | + + + + + | [facility] | [address] | [place] [address] | | | SERVICES, CORE | [address] | | | + + + + + FREE T4 (11/29/2019 5:28 AM PDT) + +-------+ + + + | Component | Value | Ref Range | Performed | Pathologist | | | | | At | Signature | + +-------+ + + + | FREE T4 | 1.1 | 0.6 - 1.2 ng/dL | [facility] [...] | + + + + + | [facility] | [address] | [place] [address] | | | SERVICES, CORE | [address] | | | + + + + + ACTH, PLASMA (11/29/2019 5:28 AM PDT) + +-------+ + + + | Component | Value | Ref Range | Performed | Pathologist | | | | | At | Signature | + +-------+ + + + | ACTH,PLASMA | 15 | <=45 pg/mL | [facility] | | | | | | [facility] | | | | | | [facility] | | + +-------+ + + + + + | Specimen | + + | Blood - Blood | | (substance) | + + + + + | Narrative | Performed At | + + + | High doses of biotin (>5 mg/day) can interfere with this | [facility] - | | laboratory test. Falsely elevated or decreased lab values may be seen. | [facility] | | Patients should abstain from high dose biotin for 48 hours before | [place] | | having lab tests drawn. | | + + + + + + + + | Performing | Address | City/State/Zipcode | Phone Number | | Organization | | | | + + + + + | [facility] | [address] | [place] [address] | | | [place] | | | | + + + + + CORTISOL, SERUM (11/29/2019 5:28 AM PDT) + +-------+ + + + | Component | Value | Ref Range | Performed | Pathologist | | | | | At | Signature | + +-------+ + + + | CORTISOL, | 20.6 | ug/dL | [facility] | | | [...] | + + + + + | [facility] | [address] | [place] [address] | | | DWIGHT MARTINEZ | [address] | | | + + + + + CAPILLARY BLOOD GLUCOSE (NO CHG), POC (11/28/2019 10:49 PM PDT) + +-------+ + + + | Component | Value | Ref Range | Performed | Pathologist | | | | | At | Signature | + +-------+ + + + | BLOOD | 84 | 70 - 99 mg/dL | [facility] | | | GLUCOSE, | | | [facility] | | | POC | | | [facility] | | | | | | OF CARE | | | | | | TESTS | | + +-------+ + + + + + | Specimen | + + | Blood | + + + + + + + | Performing | Address | City/State/Zipcode | Phone Number | | Organization | | | | + + + + + | [facility] | [address] | [place], [place] | | | [facility] | [address] | [address] | | | TESTS | | | | + + + + + CAPILLARY BLOOD GLUCOSE (NO CHG), POC (11/28/2019 6:57 PM PDT) + +-------+ + + + | Component | Value | Ref Range | Performed | Pathologist | | | | | At | Signature | + +-------+ + + + | BLOOD | 81 | 70 - 99 mg/dL | [facility] - | | | GLUCOSE, | | | [place] | | | POC | | | [facility] | | | | | | OF CARE | | | | | | TESTS | | + +-------+ + + + + + | Specimen | + + | Blood | + + + + + + + | Performing | Address | City/State/Zipcode | Phone Number | | Organization | | | | + + + + + | [facility] | [address] | [place], [place] | | | [facility] | [address] | [address] | | | TESTS | | | | + + + + + CAPILLARY BLOOD GLUCOSE (NO CHG), POC (11/28/2019 2:13 PM PDT) + +-------+ + + + | Component | Value | Ref Range | Performed | Pathologist | | | | | At | Signature | + +-------+ + + + | BLOOD | 87 | 70 - 99 mg/dL | [facility] - | | | GLUCOSE, | | | [place] | | | POC | | | [facility] | | | | | | OF CARE | | | | | | TESTS | | + +-------+ + + + + + | Specimen | + + | Blood | + + + + + + + | Performing | Address | City/State/Zipcode | Phone Number | | Organization | | | | + + + + + | [facility] | [address] | [place], [place] | | | [facility] | [address] | [address] | | | TESTS | | | | + + + + + CAPILLARY BLOOD GLUCOSE (NO CHG), POC (11/28/2019 9:04 AM PDT) + +-------+ + + + | Component | Value | Ref Range | Performed | Pathologist | | | | | At | Signature | + +-------+ + + + | BLOOD | 87 | 70 - 99 mg/dL | [facility] - | | | GLUCOSE, | | | [place] | | | POC | | | [facility] | | | | | | OF CARE | | | | | | TESTS | | + +-------+ + + + + + | Specimen | + + | Blood | + + + + + + + | Performing | Address | City/State/Zipcode | Phone Number | | Organization | | | | + + + + + | [facility] | [address] | [place], [place] | | | [facility] | [address] | [address] | | | TESTS | | | | + + + + + BASIC METABOLIC SET (NA, K, CL, TCO2, BUN, CR, GLU, CA) (11/28/2019 3:31 AM PDT) + + + + + + | Component | Value | Ref Range | Performed | Pathologist | | | | | At | Signature | + + + + + + | GLUCOSE, | 107 (H) | 70 - 99 mg/dL | [facility] | | | PLASMA | | | LABORATORY | | | (LAB) | | | SERVICES, | | | | | | CORE | | + + + + + + | BUN, PLASMA | 49 (H) | 6 - 20 mg/dL | [facility] | | | (LAB) | | | LABORATORY | | | | | | SERVICES, | | | | | | CORE | | + + + + + + | CREATININE | 1.66 (H) | 0.60 - 1.10 | [facility] | | | PLASMA | | mg/dL | LABORATORY | | | (LAB) | | | SERVICES, | | | | | | CORE | | + + + + + + | EGFR | 39 (L) | >60 mL/min | [facility] | | | - | | | LABORATORY | | | STATELESS | | | SERVICES, | | | | | | CORE | | + + + + + + | EGFR NON | 32 (L) | >60 mL/min | [facility] | | | -LISA | | | LABORATORY | | | RICAN | | | SERVICES, | | | | | | CORE | | + + + + + + | SODIUM, | 141 | 136 - 145 | [facility] | | | PLASMA | | mmol/L | LABORATORY | | | (LAB) | | | SERVICES, | | | | | | CORE | | + + + + + + | POTASSIUM, | 4.0 | 3.4 - 5.0 | [facility] | | | PLASMA | | mmol/L | LABORATORY | | | (LAB) | | | SERVICES, | | | | | | CORE | | + + + + + + | CHLORIDE, | 114 (H) | 97 - 108 mmol/L | [facility] | | | PLASMA | | | LABORATORY | | | (LAB) | | | SERVICES, | | | | | | CORE | | + + + + + + | TOTAL CO2, | 20 (L) | 21 - 32 mmol/L | [facility] | | | PLASMA | | | LABORATORY | | | (LAB) | | | SERVICES, | | | | | | CORE | | + + + + + + | CALCIUM, | 7.4 (L) | 8.6 - 10.2 | [facility] | | | PLASMA | | mg/dL | LABORATORY | | | (LAB) | | | SERVICES, | | | | | | CORE | | + + + + + + | ANION GAP | 7 | 4 - 11 mmol/L | [facility] | | | | | | LABORATORY | | | | | | SERVICES, | | | | | | CORE | | + + + + + + | POTASSIUM | No Hemo | | [facility] | | | CMNT | | | LABORATORY | | | | | | SERVICES, | | | | | | CORE | | + + + + + + | BUN/CREATIN | 30 (H) | 8 - 25 | [facility] | [...] MDRD equation recommended by the National | [facility] | | Kidney Disease Education Program. Estimated GFR Interpretive | LABORATORY | | Information: <60 mL/min/1.73 sq m Chronic Kidney | SERVICES, CORE | | Disease <15 mL/min/1.73 sq m Kidney Failure | | | Estimated GFR greater than 60 mL/min/1.73 sq m is of limited clinical | | | value. The MDRD equation is not valid in the following situations: | | | - Patients under 18 years [...] | + + + + + | [facility] | [address] | [place] [address] | | | SERVICES, CORE | [address] | | | + + + + + FREE T4 (11/28/2019 3:31 AM PDT) + +---------+ + + + | Component | Value | Ref Range | Performed | Pathologist | | | | | At | Signature | + +---------+ + + + | FREE T4 | 1.3 (H) | 0.6 - 1.2 ng/dL | [facility] | | | | | | LABORATORY | | | | | | SERVICES, | | | | | | CORE | | + +---------+ + + + + + | Specimen | + + | Blood - Blood | | (substance) | + + + + + + + | Performing | Address | City/State/Zipcode | Phone Number | | Organization | | | | + + + + + | [facility] | [address] | [place] [address] | | | SERVICES, CORE | [address] | | | + + + + + HEPARIN, EITHER STANDARD / LMW, BLOOD (11/27/2019 6:54 PM PDT) + +-------+ + + + | Component | Value | Ref Range | Performed | Pathologist | | | | | At | Signature | + +-------+ + + + | HEPARIN, | 0.66 | U/mL | [facility] | | | STD LMW | | | LABORATORY | | | | | | SERVICES, | | | | | | CORE | | + +-------+ + + + + + | Specimen | + + | Blood - Blood | | (substance) | + + + + + | Narrative | Performed At | + + + | Collect 4 hours after enoxaparin dose on 11/26. Heparin, Either | [facility] | | STD/LMW - Therapeutic Ranges: Heparin, Unfractionated: 0.35 - 0.70 | LABORATORY | | U/mL Enoxaparin, LMWH: 0.70 - 1.20 U/mL Dalteparin, | SERVICES, CORE | | LMWH: 0.70 - 1.20 U/mL Tinzaparin, LMWH: | | | Therapeutic range not established. | | | Preliminary studies suggest range | | | similar to dalteparin. Clinical | | | correlation required. Heparin levels may be unreliable | | | for: Total bilirubin >28.8 | | | mg/dL Triglycerides >690 | | | mg/dL or Moderate to Gross | | | Hemolysis | | + + + + + + + + | Performing | Address | City/State/Zipcode | Phone Number | | Organization | | | | + + + + + | [facility] | [address] | [place] [address] | | | SERVICES, CORE | [address] | | | + + + + + CAPILLARY BLOOD GLUCOSE (NO CHG), POC (11/27/2019 6:52 PM PDT) + +-------+ + + + | Component | Value | Ref Range | Performed | Pathologist | | | | | At | Signature | + +-------+ + + + | BLOOD | 95 | 70 - 99 mg/dL | [facility] - | | | GLUCOSE, | | | [place] | | | POC | | | [facility] | | | | | | OF CARE | | | | | | TESTS | | + +-------+ + + + + + | Specimen | + + | Blood | + + + + + + + | Performing | Address | City/State/Zipcode | Phone Number | | Organization | | | | + + + + + | [facility] | [address] | [place], [place] | | | [facility] | [address] | [address] | | | TESTS | | | | + + + + + CAPILLARY BLOOD GLUCOSE (NO CHG), POC (11/27/2019 2:12 PM PDT) + +-------+ + + + | Component | Value | Ref Range | Performed | Pathologist | | | | | At | Signature | + +-------+ + + + | BLOOD | 89 | 70 - 99 mg/dL | [facility] - | | | GLUCOSE, | | | [place] | | | POC | | | [facility] | | | | | | OF CARE | | | | | | TESTS | | + +-------+ + + + + + | Specimen | + + | Blood | + + + + + + + | Performing | Address | City/State/Zipcode | Phone Number | | Organization | | | | + + + + + | [facility] | [address] | [place], [place] | | | [facility] | [facility] | [address] | | | TESTS | | | | + + + + + CAPILLARY BLOOD GLUCOSE (NO CHG), POC (11/27/2019 9:11 AM PDT) + +-------+ + + + | Component | Value | Ref Range | Performed | Pathologist | | | | | At | Signature | + +-------+ + + + | BLOOD | 88 | 70 - 99 mg/dL | [facility] - | | | GLUCOSE, | | | [place] | | | POC | | | [facility] | | | | | | OF CARE | | | | | | TESTS | | + +-------+ + + + + + | Specimen | + + | Blood | + + + + + + + | Performing | Address | City/State/Zipcode | Phone Number | | Organization | | | | + + + + + | [facility] | [address] | [place], [place] | | | [facility] | [address] | [address] | | | TESTS | | | | + + + + + BASIC METABOLIC SET (NA, K, CL, TCO2, BUN, CR, GLU, CA) (11/27/2019 3:25 AM PDT) + + + + + + | Component | Value | Ref Range | Performed | Pathologist | | | | | At | Signature | + + + + + + | GLUCOSE, | 103 (H) | 70 - 99 mg/dL | [facility] | | | PLASMA | | | LABORATORY | | | (LAB) | | | SERVICES, | | | | | | CORE | | + + + + + + | BUN, PLASMA | 55 (H) | 6 - 20 mg/dL | [facility] | | | (LAB) | | | LABORATORY | | | | | | SERVICES, | | | | | | CORE | | + + + + + + | CREATININE | 2.02 (H) | 0.60 - 1.10 | [facility] | | | PLASMA | | mg/dL | LABORATORY | | | (LAB) | | | SERVICES, | | | | | | CORE | | + + + + + + | EGFR | 31 (L) | >60 mL/min | [facility] | | | - | | | LABORATORY | | | STATELESS | | | SERVICES, | | | | | | CORE | | + + + + + + | EGFR NON | 25 (L) | >60 mL/min | [facility] | | | -LISA | | | LABORATORY | | | RICAN | | | SERVICES, | | | | | | CORE | | + + + + + + | SODIUM, | 138 | 136 - 145 | [facility] | | | PLASMA | | mmol/L | LABORATORY | | | (LAB) | | | SERVICES, | | | | | | CORE | | + + + + + + | POTASSIUM, | 4.0 | 3.4 - 5.0 | [facility] | | | PLASMA | | mmol/L | LABORATORY | | | (LAB) | | | SERVICES, | | | | | | CORE | | + + + + + + | CHLORIDE, | 112 (H) | 97 - 108 mmol/L | [facility] | | | PLASMA | | | LABORATORY | | | (LAB) | | | SERVICES, | | | | | | CORE | | + + + + + + | TOTAL CO2, | 17 (L) | 21 - 32 mmol/L | [facility] | | | PLASMA | | | LABORATORY | | | (LAB) | | | SERVICES, | | | | | | CORE | | + + + + + + | CALCIUM, | 7.3 (L) | 8.6 - 10.2 | [facility] | | | PLASMA | | mg/dL | LABORATORY | | | (LAB) | | | SERVICES, | | | | | | CORE | | + + + + + + | ANION GAP | 9 | 4 - 11 mmol/L | [facility] | | | | | | LABORATORY | | | | | | SERVICES, | | | | | | CORE | | + + + + + + | POTASSIUM | No Hemo | | [facility] | | | CMNT | | | LABORATORY | | | | | | SERVICES, | | | | | | CORE | | + + + + + + | BUN/CREATIN | 27 (H) | 8 - 25 | [facility] | [...] MDRD equation recommended by the National | [facility] | | Kidney Disease Education Program. Estimated GFR Interpretive | LABORATORY | | Information: <60 mL/min/1.73 sq m Chronic Kidney | SERVICES, CORE | | Disease <15 mL/min/1.73 sq m Kidney Failure | | | Estimated GFR greater than 60 mL/min/1.73 sq m is of limited clinical | | | value. The MDRD equation is not valid in the following situations: | | | - Patients under 18 years [...] | + + + + + | [facility] | [address] | [place] [address] | | | SERVICES, CORE | [address] | | | + + + + + FREE T4 (11/27/2019 3:25 AM PDT) + +---------+ + + + | Component | Value | Ref Range | Performed | Pathologist | | | | | At | Signature | + +---------+ + + + | FREE T4 | 1.5 (H) | 0.6 - 1.2 ng/dL | [facility] | | | | | | LABORATORY | | | | | | SERVICES, | | | | | | CORE | | + +---------+ + + + + + | Specimen | + + | Blood - Blood | | (substance) | + + + + + + + | Performing | Address | City/State/Zipcode | Phone Number | | Organization | | | | + + + + + | [facility] | [address] | [place] [address] | | | SERVICES, CORE | [address] | | | + + + + + CARDIOLOGY (11/27/2019 12:00 AM PDT) + + + | Narrative | Performed At | + + + | | | + + + CARDIOLOGY (11/27/2019 12:00 AM PDT) + + + | Narrative | Performed At | + + + | | | + + + CAPILLARY BLOOD GLUCOSE (NO CHG), POC (11/26/2019 7:11 PM PDT) + +-------+ + + + | Component | Value | Ref Range | Performed | Pathologist | | | | | At | Signature | + +-------+ + + + | BLOOD | 89 | 70 - 99 mg/dL | [facility] - | | | GLUCOSE, | | | [facility] | | | POC | | | [place] | | | | | | OF CARE | | | | | | TESTS | | + +-------+ + + + + + | Specimen | + + | Blood | + + + + + + + | Performing | Address | City/State/Zipcode | Phone Number | | Organization | | | | + + + + + | [facility] | [address] | [place], [place] | | | [facility] | [facility] | [phone] | | | TESTS | | | | + + + + + HEPARIN, EITHER STANDARD / LMW, BLOOD (11/26/2019 9:10 AM PDT) + +-------+ + + + | Component | Value | Ref Range | Performed | Pathologist | | | | | At | Signature | + +-------+ + + + | HEPARIN, | 0.73 | U/mL | [facility] | | | STD LMW | | | LABORATORY | | | | | | SERVICES, | | | | | | CORE | | + +-------+ + + + + + | Specimen | + + | Blood - Blood | | (substance) | + + + + + | Narrative | Performed At | + + + | Venous Disease Heparin Protocol Heparin level 6 hrs after every | [facility] | | heparin rate change; If heparin level within target range for 2 | LABORATORY | | consecutive results, recheck every AM Heparin, Either STD/LMW - | SERVICES, CORE | | Therapeutic Ranges: Heparin, Unfractionated: 0.35 - 0.70 U/mL | | | Enoxaparin, LMWH: 0.70 - 1.20 U/mL Dalteparin, LMWH: | | | 0.70 - 1.20 U/mL Tinzaparin, LMWH: Therapeutic | | | range not established. | | | Preliminary studies suggest range | | | similar to dalteparin. Clinical | | | correlation required. Heparin levels may be unreliable for: | | | Total bilirubin >28.8 mg/dL | | | Triglycerides >690 mg/dL | | | or Moderate to Gross Hemolysis | | + + + + + + + + | Performing | Address | City/State/Zipcode | Phone Number | | Organization | | | | + + + + + | [facility] | [address] | [place] [address] | | | SERVICES, CORE | [address] | | | + + + + + LIVER SET (AST,ALT,BILI TOTAL,BILI DIRECT,ALK PHOS,ALB,PROT TOTAL) (11/26/2019 5:02 AM PDT ) + +---------+ + + + | Component | Value | Ref Range | Performed | Pathologist | | | | | At | Signature | + +---------+ + + + | ALBUMIN, | 1.7 (L) | 3.5 - 4.7 g/dL | [facility] | | | PLASMA | | | LABORATORY | | | (LAB) | | | SERVICES, | | | | | | CORE | | + +---------+ + + + | BILIRUBIN | 0.5 | 0.3 - 1.2 mg/dL | [facility] | | | TOTAL | | | LABORATORY | | | | | | SERVICES, | | | | | | CORE | | + +---------+ + + + | BILIRUBIN | 0.2 | 0.0 - 0.3 mg/dL | [facility] | | | DIRECT | | | LABORATORY | | | | | | SERVICES, | | | | | | CORE | | + +---------+ + + + | ALK PHOS | 128 (H) | 42 - 98 U/L | [facility] | | | | | | LABORATORY | | | | | | SERVICES, | | | | | | CORE | | + +---------+ + + + | AST(SGOT) | 45 (H) | <=41 U/L | [facility] | | | | | | LABORATORY | | | | | | SERVICES, | | | | | | CORE | | + +---------+ + + + | ALT (SGPT) | 36 | <=60 U/L | [facility] | | | | | | LABORATORY | | | | | | SERVICES, | | | | | | CORE | | + +---------+ + + + | TOTAL | 5.0 (L) | 6.4 - 8.2 g/dL | [facility] | | | PROTEIN, | | | LABORATORY | | | PLASMA | | | SERVICES, | | | (LAB) | | | CORE | | + +---------+ + + + | AST CMNT | No Hemo | | [facility] | | | | | | LABORATORY | | | | | | SERVICES, | | | | | | CORE | | + +---------+ + + + | BILI T CMNT | No Hemo | | [facility] | | | | | | LABORATORY | | | | | | SERVICES, | | | | | | CORE | | + +---------+ + + + | BILI D CMNT | No Hemo | | [facility] | | | | | | LABORATORY | | | | | | SERVICES, | | | | | | CORE | | + +---------+ + + + | GLOBULIN | 3.3 | 2.3 - 3.5 gm/dL | [facility] | | | LVL | | | LABORATORY | | | | | | SERVICES, | | | | | | CORE | | + +---------+ + + + | ALBUMIN/NICOLETTE | 0.5 (L) | 0.7 - 2.8 | [facility] | | | BULIN RATIO | | | LABORATORY | | | | | | SERVICES, | | | | | | CORE | | + +---------+ + + + + + | Specimen | + + | Blood - Blood | | (substance) | + + + + + + + | Performing | Address | City/State/Zipcode | Phone Number | | Organization | | | | + + + + + | [facility] | [address] | [place] [address] | | | SERVICES, CORE | [address] | | | + + + + + CAPILLARY BLOOD GLUCOSE (NO CHG), POC (11/26/2019 5:02 AM PDT) + +-------+ + + + | Component | Value | Ref Range | Performed | Pathologist | | | | | At | Signature | + +-------+ + + + | BLOOD | 87 | 70 - 99 mg/dL | [facility] - | | | GLUCOSE, | | | [facility] | | | POC | | | [facility] | | | | | | OF CARE | | | | | | TESTS | | + +-------+ + + + + + | Specimen | + + | Blood | + + + + + + + | Performing | Address | City/State/Zipcode | Phone Number | | Organization | | | | + + + + + | [facility] | [address] | [place], [place] | | | K[facility]EN CAS[facility] OF [facility] | [facility] | [id number] | | | TESTS | | | | + + + + + CBC (HEMOGRAM) ONLY (11/26/2019 5:02 AM PDT) + + + + + + | Component | Value | Ref Range | Performed | Pathologist | | | | | At | Signature | + + + + + + | WHITE CELL | 5.71 | 3.50 - 10.80 | [facility] | | | COUNT | | K/cu mm | LABORATORY | | | | | | SERVICES, | | | | | | CORE | | + + + + + + | RED CELL | 3.04 (L) | 4.00 - 5.20 | [facility] | | | COUNT | | M/cu mm | LABORATORY | | | | | | SERVICES, | | | | | | CORE | | + + + + + + | HEMOGLOBIN | 8.5 (L) | 12.0 - 16.0 | [facility] | | | | | g/dL | LABORATORY | | | | | | SERVICES, | | | | | | CORE | | + + + + + + | HEMATOCRIT | 27.0 (L) | 36.0 - 46.0 % | [facility] | | | | | | LABORATORY | | | | | | SERVICES, | | | | | | CORE | | + + + + + + | MCV | 88.8 | 80.0 - 100.0 fL | [facility] | | | | | | LABORATORY | | | | | | SERVICES, | | | | | | CORE | | + + + + + + | MCHC | 31.5 (L) | 32.0 - 36.0 | [facility] | | | | | g/dL | LABORATORY | | | | | | SERVICES, | | | | | | CORE | | + + + + + + | RDW SD | 56.6 (H) | 35.1 - 46.3 fL | [facility] | | | | | | LABORATORY | | | | | | SERVICES, | | | | | | CORE | | + + + + + + | PLATELET | 134 (L) | 150 - 400 K/cu | [facility] | | | COUNT | | mm | LABORATORY | | | | | | SERVICES, | | | | | | CORE | | + + + + + + | MPV | 9.1 (L) | 9.7 - 12.3 fL | [...] | + + + + + | [facility] | [address] | [place] [address] | | | SERVICES, CORE | [address] | | | + + + + + BASIC METABOLIC SET (NA, K, CL, TCO2, BUN, CR, GLU, CA) (11/26/2019 5:02 AM PDT) + + + + + + | Component | Value | Ref Range | Performed | Pathologist | | | | | At | Signature | + + + + + + | GLUCOSE, | 88 | 70 - 99 mg/dL | [facility] | | | PLASMA | | | LABORATORY | | | (LAB) | | | SERVICES, | | | | | | CORE | | + + + + + + | BUN, PLASMA | 56 (H) | 6 - 20 mg/dL | [facility] | | | (LAB) | | | LABORATORY | | | | | | SERVICES, | | | | | | CORE | | + + + + + + | CREATININE | 2.29 (H) | 0.60 - 1.10 | [facility] | | | PLASMA | | mg/dL | LABORATORY | | | (LAB) | | | SERVICES, | | | | | | CORE | | + + + + + + | EGFR | 27 (L) | >60 mL/min | [facility] | | | - | | | LABORATORY | | | STATELESS | | | SERVICES, | | | | | | CORE | | + + + + + + | EGFR NON | 22 (L) | >60 mL/min | [facility] | | | -LISA | | | LABORATORY | | | RICAN | | | SERVICES, | | | | | | CORE | | + + + + + + | SODIUM, | 138 | 136 - 145 | [facility] | | | PLASMA | | mmol/L | LABORATORY | | | (LAB) | | | SERVICES, | | | | | | CORE | | + + + + + + | POTASSIUM, | 4.2 | 3.4 - 5.0 | [facility] | | | PLASMA | | mmol/L | LABORATORY | | | (LAB) | | | SERVICES, | | | | | | CORE | | + + + + + + | CHLORIDE, | 111 (H) | 97 - 108 mmol/L | [facility] | | | PLASMA | | | LABORATORY | | | (LAB) | | | SERVICES, | | | | | | CORE | | + + + + + + | TOTAL CO2, | 15 (L) | 21 - 32 mmol/L | [facility] | | | PLASMA | | | LABORATORY | | | (LAB) | | | SERVICES, | | | | | | CORE | | + + + + + + | CALCIUM, | 7.8 (L) | 8.6 - 10.2 | [facility] | | | PLASMA | | mg/dL | LABORATORY | | | (LAB) | | | SERVICES, | | | | | | CORE | | + + + + + + | ANION GAP | 12 (H) | 4 - 11 mmol/L | [facility] | | | | | | LABORATORY | | | | | | SERVICES, | | | | | | CORE | | + + + + + + | POTASSIUM | No Hemo | | [facility] | | | CMNT | | | LABORATORY | | | | | | SERVICES, | | | | | | CORE | | + + + + + + | BUN/CREATIN | 24 | 8 - 25 | [facility] | [...] MDRD equation recommended by the National | [facility] | | Kidney Disease Education Program. Estimated GFR Interpretive | LABORATORY | | Information: <60 mL/min/1.73 sq m Chronic Kidney | SERVICES, CORE | | Disease <15 mL/min/1.73 sq m Kidney Failure | | | Estimated GFR greater than 60 mL/min/1.73 sq m is of limited clinical | | | value. The MDRD equation is not valid in the following situations: | | | - Patients under 18 years [...] | + + + + + | [facility] | [address] | [place] [address] | | | SERVICES, CORE | [address] | | | + + + + + FREE T4 (11/26/2019 5:02 AM PDT) + +---------+ + + + | Component | Value | Ref Range | Performed | Pathologist | | | | | At | Signature | + +---------+ + + + | FREE T4 | 1.8 (H) | 0.6 - 1.2 ng/dL | [facility] | | | | | | LABORATORY | | | | | | SERVICES, | | | | | | CORE | | + +---------+ + + + + + | Specimen | + + | Blood - Blood | | (substance) | + + + + + + + | Performing | Address | City/State/Zipcode | Phone Number | | Organization | | | | + + + + + | [facility] | [address] | [place] [address] | | | DWIGHT MARTINEZ | [address] | | | + + + + + CARDIOLOGY (11/26/2019 12:00 AM PDT) + + + | Narrative | Performed At | + + + | | | + + + HEPARIN, EITHER STANDARD / LMW, BLOOD (11/25/2019 8:34 PM PDT) + +-------+ + + + | Component | Value | Ref Range | Performed | Pathologist | | | | | At | Signature | + +-------+ + + + | HEPARIN, | 1.00 | U/mL | [facility] | | | STD LMW | | | LABORATORY | | | | | | SERVICES, | | | | | | CORE | | + +-------+ + + + + + | Specimen | + + | Blood - Blood | | (substance) | + + + + + | Narrative | Performed At | + + + | Venous Disease Heparin Protocol Heparin level 6 hrs after every | [facility] | | heparin rate change; If heparin level within target range for 2 | LABORATORY | | consecutive results, recheck every AM Heparin, Either STD/LMW - | SERVICES, CORE | | Therapeutic Ranges: Heparin, Unfractionated: 0.35 - 0.70 U/mL | | | Enoxaparin, LMWH: 0.70 - 1.20 U/mL Dalteparin, LMWH: | | | 0.70 - 1.20 U/mL Tinzaparin, LMWH: Therapeutic | | | range not established. | | | Preliminary studies suggest range | | | similar to dalteparin. Clinical | | | correlation required. Heparin levels may be unreliable for: | | | Total bilirubin >28.8 mg/dL | | | Triglycerides >690 mg/dL | | | or Moderate to Gross Hemolysis | | + + + + + + + + | Performing | Address | City/State/Zipcode | Phone Number | | Organization | | | | + + + + + | [facility] | [address] | [place] [address] | | | SERVICES, CORE | [address] | | | + + + + + BASIC METABOLIC SET (NA, K, CL, TCO2, BUN, CR, GLU, CA) (11/25/2019 4:49 PM PDT) + + + + + + | Component | Value | Ref Range | Performed | Pathologist | | | | | At | Signature | + + + + + + | GLUCOSE, | 82 | 70 - 99 mg/dL | [facility] | | | PLASMA | | | LABORATORY | | | (LAB) | | | SERVICES, | | | | | | CORE | | + + + + + + | BUN, PLASMA | 62 (H) | 6 - 20 mg/dL | [facility] | | | (LAB) | | | LABORATORY | | | | | | SERVICES, | | | | | | CORE | | + + + + + + | CREATININE | 2.28 (H) | 0.60 - 1.10 | [facility] | | | PLASMA | | mg/dL | LABORATORY | | | (LAB) | | | SERVICES, | | | | | | CORE | | + + + + + + | EGFR | 27 (L) | >60 mL/min | [facility] | | | - | | | LABORATORY | | | STATELESS | | | SERVICES, | | | | | | CORE | | + + + + + + | EGFR NON | 22 (L) | >60 mL/min | [facility] | | | -LISA | | | LABORATORY | | | RICAN | | | SERVICES, | | | | | | CORE | | + + + + + + | SODIUM, | 137 | 136 - 145 | [facility] | | | PLASMA | | mmol/L | LABORATORY | | | (LAB) | | | SERVICES, | | | | | | CORE | | + + + + + + | POTASSIUM, | 4.5 | 3.4 - 5.0 | [facility] | | | PLASMA | | mmol/L | LABORATORY | | | (LAB) | | | SERVICES, | | | | | | CORE | | + + + + + + | CHLORIDE, | 112 (H) | 97 - 108 mmol/L | [facility] | | | PLASMA | | | LABORATORY | | | (LAB) | | | SERVICES, | | | | | | CORE | | + + + + + + | TOTAL CO2, | 15 (L) | 21 - 32 mmol/L | [facility] | | | PLASMA | | | LABORATORY | | | (LAB) | | | SERVICES, | | | | | | CORE | | + + + + + + | CALCIUM, | 7.8 (L) | 8.6 - 10.2 | [facility] | | | PLASMA | | mg/dL | LABORATORY | | | (LAB) | | | SERVICES, | | | | | | CORE | | + + + + + + | ANION GAP | 10 | 4 - 11 mmol/L | [facility] | | | | | | LABORATORY | | | | | | SERVICES, | | | | | | CORE | | + + + + + + | POTASSIUM | No Hemo | | [facility] | | | CMNT | | | LABORATORY | | | | | | SERVICES, | | | | | | CORE | | + + + + + + | BUN/CREATIN | 27 (H) | 8 - 25 | [facility] | | | INE RATIO | | [...] MDRD equation recommended by the National | [facility] | | Kidney Disease Education Program. Estimated GFR Interpretive | LABORATORY | | Information: <60 mL/min/1.73 sq m Chronic Kidney | SERVICES, CORE | | Disease <15 mL/min/1.73 sq m Kidney Failure | | | Estimated GFR greater than 60 mL/min/1.73 sq m is of limited clinical | | | value. The MDRD equation is not valid in the following situations: | | | - Patients under 18 years [...] | + + + + + | [facility] | [address] | [place] [address] | | | SERVICES, CORE | [address] | | | + + + + + HEPARIN, EITHER STANDARD / LMW, BLOOD (11/25/2019 12:05 PM PDT) + +-------+ + + + | Component | Value | Ref Range | Performed | Pathologist | | | | | At | Signature | + +-------+ + + + | HEPARIN, | 1.20 | U/mL | [facility] | | | STD LMW | | | LABORATORY | | | | | | SERVICES, | | | | | | CORE | | + +-------+ + + + + + | Specimen | + + | Blood - Blood | | (substance) | + + + + + | Narrative | Performed At | + + + | Venous Disease Heparin Protocol Heparin level 6 hrs after every | [facility] | | heparin rate change; If heparin level within target range for 2 | LABORATORY | | consecutive results, recheck every AM Heparin, Either STD/LMW - | SERVICES, CORE | | Therapeutic Ranges: Heparin, Unfractionated: 0.35 - 0.70 U/mL | | | Enoxaparin, LMWH: 0.70 - 1.20 U/mL Dalteparin, LMWH: | | | 0.70 - 1.20 U/mL Tinzaparin, LMWH: Therapeutic | | | range not established. | | | Preliminary studies suggest range | | | similar to dalteparin. Clinical | | | correlation required. Heparin levels may be unreliable for: | | | Total bilirubin >28.8 mg/dL | | | Triglycerides >690 mg/dL | | | or Moderate to Gross Hemolysis | | + + + + + + + + | Performing | Address | City/State/Zipcode | Phone Number | | Organization | | | | + + + + + | [facility] | [address] | [place] [address] | | | SERVICES, CORE | [address] | | | + + + + + BASIC METABOLIC SET (NA, K, CL, TCO2, BUN, CR, GLU, CA) (11/25/2019 9:48 AM PDT) + + + + + + | Component | Value | Ref Range | Performed | Pathologist | | | | | At | Signature | + + + + + + | GLUCOSE, | 112 (H) | 70 - 99 mg/dL | [facility] | | | PLASMA | | | LABORATORY | | | (LAB) | | | SERVICES, | | | | | | CORE | | + + + + + + | BUN, PLASMA | 63 (H) | 6 - 20 mg/dL | [facility] | | | (LAB) | | | LABORATORY | | | | | | SERVICES, | | | | | | CORE | | + + + + + + | CREATININE | 2.47 (H) | 0.60 - 1.10 | [facility] | | | PLASMA | | mg/dL | LABORATORY | | | (LAB) | | | SERVICES, | | | | | | CORE | | + + + + + + | EGFR | 24 (L) | >60 mL/min | [facility] | | | - | | | LABORATORY | | | STATELESS | | | SERVICES, | | | | | | CORE | | + + + + + + | EGFR NON | 20 (L) | >60 mL/min | [facility] | | | -LISA | | | LABORATORY | | | RICAN | | | SERVICES, | | | | | | CORE | | + + + + + + | SODIUM, | 137 | 136 - 145 | [facility] | | | PLASMA | | mmol/L | LABORATORY | | | (LAB) | | | SERVICES, | | | | | | CORE | | + + + + + + | POTASSIUM, | 4.8 | 3.4 - 5.0 | [facility] | | | PLASMA | | mmol/L | LABORATORY | | | (LAB) | | | SERVICES, | | | | | | CORE | | + + + + + + | CHLORIDE, | 112 (H) | 97 - 108 mmol/L | [facility] | | | PLASMA | | | LABORATORY | | | (LAB) | | | SERVICES, | | | | | | CORE | | + + + + + + | TOTAL CO2, | 16 (L) | 21 - 32 mmol/L | [facility] | | | PLASMA | | | LABORATORY | | | (LAB) | | | SERVICES, | | | | | | CORE | | + + + + + + | CALCIUM, | 7.9 (L) | 8.6 - 10.2 | [facility] | | | PLASMA | | mg/dL | LABORATORY | | | (LAB) | | | SERVICES, | | | | | | CORE | | + + + + + + | ANION GAP | 9 | 4 - 11 mmol/L | [facility] | | | | | | LABORATORY | | | | | | SERVICES, | | | | | | CORE | | + + + + + + | POTASSIUM | No Hemo | | [facility] | | | CMNT | | | LABORATORY | | | | | | SERVICES, | | | | | | CORE | | + + + + + + | BUN/CREATIN | 26 (H) | 8 - 25 | [facility] | [...] MDRD equation recommended by the National | [facility] | | Kidney Disease Education Program. Estimated GFR Interpretive | LABORATORY | | Information: <60 mL/min/1.73 sq m Chronic Kidney | SERVICES, CORE | | Disease <15 mL/min/1.73 sq m Kidney Failure | | | Estimated GFR greater than 60 mL/min/1.73 sq m is of limited clinical | | | value. The MDRD equation is not valid in the following situations: | | | - Patients under 18 years [...] | + + + + + | [facility] | [address] | [place] [address] | | | DWIGHT MARTINEZ | [address] | | | + + + + + HEPARIN, EITHER STANDARD / LMW, BLOOD (11/25/2019 3:53 AM PDT) + +-------+ + + + | Component | Value | Ref Range | Performed | Pathologist | | | | | At | Signature | + +-------+ + + + | HEPARIN, | 1.45 | U/mL | [facility] | | | STD LMW | | | LABORATORY | | | | | | SERVICES, | | | | | | CORE | | + +-------+ + + + + + | Specimen | + + | Blood - Blood | | (substance) | + + + + + | Narrative | Performed At | + + + | Venous Disease Heparin Protocol Heparin level 6 hrs after every | [facility] | | heparin rate change; If heparin level within target range for 2 | LABORATORY | | consecutive results, recheck every AM Heparin, Either STD/LMW - | SERVICES, CORE | | Therapeutic Ranges: Heparin, Unfractionated: 0.35 - 0.70 U/mL | | | Enoxaparin, LMWH: 0.70 - 1.20 U/mL Dalteparin, LMWH: | | | 0.70 - 1.20 U/mL Tinzaparin, LMWH: Therapeutic | | | range not established. | | | Preliminary studies suggest range | | | similar to dalteparin. Clinical | | | correlation required. Heparin levels may be unreliable for: | | | Total bilirubin >28.8 mg/dL | | | Triglycerides >690 mg/dL | | | or Moderate to Gross Hemolysis | | + + + + + + + + | Performing | Address | City/State/Zipcode | Phone Number | | Organization | | | | + + + + + | [facility] | [address] | [place] [address] | | | SERVICES, CORE | [address] | | | + + + + + CBC (HEMOGRAM) ONLY (11/25/2019 3:53 AM PDT) + + + + + + | Component | Value | Ref Range | Performed | Pathologist | | | | | At | Signature | + + + + + + | WHITE CELL | 8.55 | 3.50 - 10.80 | [facility] | | | COUNT | | K/cu mm | LABORATORY | | | | | | SERVICES, | | | | | | CORE | | + + + + + + | RED CELL | 3.42 (L) | 4.00 - 5.20 | [facility] | | | COUNT | | M/cu mm | LABORATORY | | | | | | SERVICES, | | | | | | CORE | | + + + + + + | HEMOGLOBIN | 9.5 (L) | 12.0 - 16.0 | [facility] | | | | | g/dL | LABORATORY | | | | | | SERVICES, | | | | | | CORE | | + + + + + + | HEMATOCRIT | 30.0 (L) | 36.0 - 46.0 % | [facility] | | | | | | LABORATORY | | | | | | SERVICES, | | | | | | CORE | | + + + + + + | MCV | 87.7 | 80.0 - 100.0 fL | [facility] | | | | | | LABORATORY | | | | | | SERVICES, | | | | | | CORE | | + + + + + + | MCHC | 31.7 (L) | 32.0 - 36.0 | [facility] | | | | | g/dL | LABORATORY | | | | | | SERVICES, | | | | | | CORE | | + + + + + + | RDW SD | 55.8 (H) | 35.1 - 46.3 fL | [facility] | | | | | | LABORATORY | | | | | | SERVICES, | | | | | | CORE | | + + + + + + | PLATELET | 166 | 150 - 400 K/cu | [facility] | | | COUNT | | mm | LABORATORY | | | | | | SERVICES, | | | | | | CORE | | + + + + + + | MPV | 8.5 (L) | 9.7 - 12.3 fL | [...] + + | [facility] | [address] | [place] [address] | | | SERVICES, CORE | [address] | | | + + + + + FREE T4 (11/25/2019 3:53 AM PDT) + +---------+ + + + | Component | Value | Ref Range | Performed | Pathologist | | | | | At | Signature | + +---------+ + + + | FREE T4 | 2.2 (H) | 0.6 - 1.2 ng/dL | [facility] | | | | | | LABORATORY | | | | | | SERVICES, | | | | | | CORE | | + +---------+ + + + + + | Specimen | + + | Blood - Blood | | (substance) | + + + + + + + | Performing | Address | City/State/Zipcode | Phone Number | | Organization | | | | + + + + + | [facility] | [address] | [place] [address] | | | SERVICES, CORE | [address] | | | + + + + + TROPONIN I, PLASMA (11/25/2019 3:53 AM PDT) + +-------+ + + + | Component | Value | Ref Range | Performed | Pathologist | | | | | At | Signature | + +-------+ + + + | TROPONIN I | 0.77 | <0.80 ng/mL | [facility] | | | | | [...] | + + + + + | [facility] | [address] | [place] [address] | | | SERVICES, CORE | [address] | | | + + + + + BASIC METABOLIC SET (NA, K, CL, TCO2, BUN, CR, GLU, CA) (11/25/2019 12:44 AM PDT) + + + + + + | Component | Value | Ref Range | Performed | Pathologist | | | | | At | Signature | + + + + + + | GLUCOSE, | 126 (H) | 70 - 99 mg/dL | [facility] | | | PLASMA | | | LABORATORY | | | (LAB) | | | SERVICES, | | | | | | CORE | | + + + + + + | BUN, PLASMA | 63 (H) | 6 - 20 mg/dL | [facility] | | | (LAB) | | | LABORATORY | | | | | | SERVICES, | | | | | | CORE | | + + + + + + | CREATININE | 2.63 (H) | 0.60 - 1.10 | [facility] | | | PLASMA | | mg/dL | LABORATORY | | | (LAB) | | | SERVICES, | | | | | | CORE | | + + + + + + | EGFR | 23 (L) | >60 mL/min | [facility] | | | - | | | LABORATORY | | | STATELESS | | | SERVICES, | | | | | | CORE | | + + + + + + | EGFR NON | 19 (L) | >60 mL/min | [facility] | | | -LISA | | | LABORATORY | | | RICAN | | | SERVICES, | | | | | | CORE | | + + + + + + | SODIUM, | 136 | 136 - 145 | [facility] | | | PLASMA | | mmol/L | LABORATORY | | | (LAB) | | | SERVICES, | | | | | | CORE | | + + + + + + | POTASSIUM, | 4.7 | 3.4 - 5.0 | [facility] | | | PLASMA | | mmol/L | LABORATORY | | | (LAB) | | | SERVICES, | | | | | | CORE | | + + + + + + | CHLORIDE, | 110 (H) | 97 - 108 mmol/L | [facility] | | | PLASMA | | | LABORATORY | | | (LAB) | | | SERVICES, | | | | | | CORE | | + + + + + + | TOTAL CO2, | 15 (L) | 21 - 32 mmol/L | [facility] | | | PLASMA | | | LABORATORY | | | (LAB) | | | SERVICES, | | | | | | CORE | | + + + + + + | CALCIUM, | 7.9 (L) | 8.6 - 10.2 | [facility] | | | PLASMA | | mg/dL | LABORATORY | | | (LAB) | | | SERVICES, | | | | | | CORE | | + + + + + + | ANION GAP | 11 | 4 - 11 mmol/L | [facility] | | | | | | LABORATORY | | | | | | SERVICES, | | | | | | CORE | | + + + + + + | POTASSIUM | No Hemo | | [facility] | | | CMNT | | | LABORATORY | | | | | | SERVICES, | | | | | | CORE | | + + + + + + | BUN/CREATIN | 24 | 8 - 25 | [facility] | [...] MDRD equation recommended by the National | [facility] | | Kidney Disease Education Program. Estimated GFR Interpretive | LABORATORY | | Information: <60 mL/min/1.73 sq m Chronic Kidney | SERVICES, CORE | | Disease <15 mL/min/1.73 sq m Kidney Failure | | | Estimated GFR greater than 60 mL/min/1.73 sq m is of limited clinical | | | value. The MDRD equation is not valid in the following situations: | | | - Patients under 18 years [...] | + + + + + | [facility] | [address] | [place] [address] | | | SERVICES, CORE | [address] | | | + + + + + HEPARIN, EITHER STANDARD / LMW, BLOOD (11/24/2019 6:38 PM PDT) + +-------+ + + + | Component | Value | Ref Range | Performed | Pathologist | | | | | At | Signature | + +-------+ + + + | HEPARIN, | 1.28 | U/mL | [facility] | | | STD LMW | | | LABORATORY | | | | | | SERVICES, | | | | | | CORE | | + +-------+ + + + + + | Specimen | + + | Blood - Blood | | (substance) | + + + + + | Narrative | Performed At | + + + | Heparin, Either STD/LMW - Therapeutic Ranges: Heparin, | [facility] | | Unfractionated: 0.35 - 0.70 U/mL Enoxaparin, LMWH: 0.70 | LABORATORY | | - 1.20 U/mL Dalteparin, LMWH: 0.70 - 1.20 U/mL | SERVICES, CORE | | Tinzaparin, LMWH: Therapeutic range not established. | | | Preliminary studies suggest range | | | similar to dalteparin. Clinical | | | correlation required. | | | Heparin levels may be unreliable for: | | | Total bilirubin >28.8 mg/dL | | | Triglycerides >690 mg/dL | | | or Moderate to Gross Hemolysis | | + + + + + + + + | Performing | Address | City/State/Zipcode | Phone Number | | Organization | | | | + + + + + | [facility] | [address] | [place] [address] | | | SERVICES, [place] | [address] | | | + + + + + CO-OXIMETER PANEL, BLOOD (11/24/2019 4:52 PM PDT) + + + + + + | Component | Value | Ref Range | Performed | Pathologist | | | | | At | Signature | + + + + + + | TOTAL | 11.7 (L) | 12.0 - 16.0 | [facility] | | | HEMOGLOBIN | | g/dL | LABORATORY | | | | | | SERVICES, | | | | | | CORE | | + + + + + + | OXYHEMOGLOB | 61.0 (L) | 95.0 - 98.0 % | [facility] | | | IN | | | LABORATORY | | | | | | SERVICES, | | | | | | CORE | | + + + + + + | CARBOXYHEMO | <1.0 | <1.6 % | [facility] | | | GLOBIN | | | LABORATORY | | | | | | SERVICES, | | | | | | CORE | | + + + + + + | METHEMOGLOB | <1.0 | <1.5 % | [facility] | | | IN | | | LABORATORY | | | | | | SERVICES, | | | | | | CORE | | + + + + + + | OXYGEN SAT, | 62.1 (L) | 92.0 - 98.0 % | [facility] | | | [place] | | | LABORATORY | | | | | | SERVICES, | | | | | | CORE | | + + + + + + | DEOXYHEMOGL | 37.2 | % | [facility] | | | OBIN | | | LABORATORY | | | | | | SERVICES, | | | | | | CORE | | + + + + + + + + | Specimen | + + | Blood - Blood | | (substance) | + + + + + | Narrative | Performed At | + + + | Carboxyhemoglobin reference ranges: | [facility] | | Nonsmoker: <1.6% Smokers (1-2 packs/day): 4-5% Smokers (>2 | LABORATORY | | packs/day): 8-9% Deoxyhemoglobin reference range : Arterial | [facility] CORE | | samples: <=2.0% Venous samples: 40-70%. | | + + + + + + + + | Performing | Address | City/State/Zipcode | Phone Number | | Organization | | | | + + + + + | [facility] | [address] | [place] [address] | | | [place], CORE | [address] | | | + + + + + BASIC METABOLIC SET (NA, K, CL, TCO2, BUN, CR, GLU, CA) (11/24/2019 4:52 PM PDT) + + + + + + | Component | Value | Ref Range | Performed | Pathologist | | | | | At | Signature | + + + + + + | GLUCOSE, | 110 (H) | 70 - 99 mg/dL | [facility] | | | PLASMA | | | LABORATORY | | | (LAB) | | | SERVICES, | | | | | | CORE | | + + + + + + | BUN, PLASMA | 62 (H) | 6 - 20 mg/dL | [facility] | | | (LAB) | | | LABORATORY | | | | | | SERVICES, | | | | | | CORE | | + + + + + + | CREATININE | 2.70 (H) | 0.60 - 1.10 | [facility] | | | PLASMA | | mg/dL | LABORATORY | | | (LAB) | | | SERVICES, | | | | | | CORE | | + + + + + + | EGFR | 22 (L) | >60 mL/min | [facility] | | | - | | | LABORATORY | | | STATELESS | | | SERVICES, | | | | | | CORE | | + + + + + + | EGFR NON | 18 (L) | >60 mL/min | [facility] | | | -LISA | | | LABORATORY | | | RICAN | | | SERVICES, | | | | | | CORE | | + + + + + + | SODIUM, | 138 | 136 - 145 | [facility] | | | PLASMA | | mmol/L | LABORATORY | | | (LAB) | | | SERVICES, | | | | | | CORE | | + + + + + + | POTASSIUM, | 5.2 (H) | 3.4 - 5.0 | [facility] | | | PLASMA | | mmol/L | LABORATORY | | | (LAB) | | | SERVICES, | | | | | | CORE | | + + + + + + | CHLORIDE, | 111 (H) | 97 - 108 mmol/L | [facility] | | | PLASMA | | | LABORATORY | | | (LAB) | | | SERVICES, | | | | | | CORE | | + + + + + + | TOTAL CO2, | 15 (L) | 21 - 32 mmol/L | [facility] | | | PLASMA | | | LABORATORY | | | (LAB) | | | SERVICES, | | | | | | CORE | | + + + + + + | CALCIUM, | 7.8 (L) | 8.6 - 10.2 | [facility] | | | PLASMA | | mg/dL | LABORATORY | | | (LAB) | | | SERVICES, | | | | | | CORE | | + + + + + + | ANION GAP | 12 (H) | 4 - 11 mmol/L | [facility] | | | | | | LABORATORY | | | | | | SERVICES, | | | | | | CORE | | + + + + + + | POTASSIUM | No Hemo | | [facility] | | | CMNT | | | LABORATORY | | | | | | SERVICES, | | | | | | CORE | | + + + + + + | BUN/CREATIN | 23 | 8 - 25 | [facility] | [...] MDRD equation recommended by the National | [facility] | | Kidney Disease Education Program. Estimated GFR Interpretive | LABORATORY | | Information: <60 mL/min/1.73 sq m Chronic Kidney | SERVICES, CORE | | Disease <15 mL/min/1.73 sq m Kidney Failure | | | Estimated GFR greater than 60 mL/min/1.73 sq m is of limited clinical | | | value. The MDRD equation is not valid in the following situations: | | | - Patients under 18 years [...] + + | [facility] | [address] | [place] [address] | | | SERVICES, CORE | [address] | | | + + + + + CO-OXIMETER PANEL, BLOOD (11/24/2019 11:35 AM PDT) + + + + + + | Component | Value | Ref Range | Performed | Pathologist | | | | | At | Signature | + + + + + + | TOTAL | 10.9 (L) | 12.0 - 16.0 | [facility] | | | HEMOGLOBIN | | g/dL | LABORATORY | | | | | | SERVICES, | | | | | | CORE | | + + + + + + | OXYHEMOGLOB | 61.0 (L) | 95.0 - 98.0 % | [facility] | | | IN | | | LABORATORY | | | | | | SERVICES, | | | | | | CORE | | + + + + + + | CARBOXYHEMO | 1.1 | <1.6 % | [facility] | | | GLOBIN | | | LABORATORY | | | | | | SERVICES, | | | | | | CORE | | + + + + + + | METHEMOGLOB | 1.2 | <1.5 % | [facility] | | | IN | | | LABORATORY | | | | | | SERVICES, | | | | | | CORE | | + + + + + + | OXYGEN SAT, | 62.4 (L) | 92.0 - 98.0 % | [facility] | | | YASMANI | | | LABORATORY | | | | | | SERVICES, | | | | | | CORE | | + + + + + + | DEOXYHEMOGL | 36.7 | % | [facility] | | | OBIN | | | LABORATORY | | | | | | SERVICES, | | | | | | CORE | | + + + + + + + + | Specimen | + + | Blood - Blood | | (substance) | + + + + + | Narrative | Performed At | + + + | Carboxyhemoglobin reference ranges: | [facility] | | Nonsmoker: <1.6% Smokers (1-2 packs/day): 4-5% Smokers (>2 | LABORATORY | | packs/day): 8-9% Deoxyhemoglobin reference range : Arterial | SERVICES, CORE | | samples: <=2.0% Venous samples: 40-70%. | | + + + + + + + + | Performing | Address | City/State/Zipcode | Phone Number | | Organization | | | | + + + + + | [facility] | [address] | [place] [address] | | | SERVICES, CORE | [address] | | | + + + + + BASIC METABOLIC SET (NA, K, CL, TCO2, BUN, CR, GLU, CA) (11/24/2019 11:35 AM PDT) + + + + + + | Component | Value | Ref Range | Performed | Pathologist | | | | | At | Signature | + + + + + + | GLUCOSE, | 121 (H) | 70 - 99 mg/dL | [facility] | | | PLASMA | | | LABORATORY | | | (LAB) | | | SERVICES, | | | | | | CORE | | + + + + + + | BUN, PLASMA | 63 (H) | 6 - 20 mg/dL | [facility] | | | (LAB) | | | LABORATORY | | | | | | SERVICES, | | | | | | CORE | | + + + + + + | CREATININE | 2.50 (H) | 0.60 - 1.10 | [facility] | | | PLASMA | | mg/dL | LABORATORY | | | (LAB) | | | SERVICES, | | | | | | CORE | | + + + + + + | EGFR | 24 (L) | >60 mL/min | [facility] | | | - | | | LABORATORY | | | STATELESS | | | SERVICES, | | | | | | CORE | | + + + + + + | EGFR NON | 20 (L) | >60 mL/min | [facility] | | | -LISA | | | LABORATORY | | | RICAN | | | SERVICES, | | | | | | CORE | | + + + + + + | SODIUM, | 137 | 136 - 145 | [facility] | | | PLASMA | | mmol/L | LABORATORY | | | (LAB) | | | SERVICES, | | | | | | CORE | | + + + + + + | POTASSIUM, | 5.5 (H) | 3.4 - 5.0 | [facility] | | | PLASMA | | mmol/L | LABORATORY | | | (LAB) | | | SERVICES, | | | | | | CORE | | + + + + + + | CHLORIDE, | 109 (H) | 97 - 108 mmol/L | [facility] | | | PLASMA | | | LABORATORY | | | (LAB) | | | SERVICES, | | | | | | CORE | | + + + + + + | TOTAL CO2, | 14 (L) | 21 - 32 mmol/L | [facility] | | | PLASMA | | | LABORATORY | | | (LAB) | | | SERVICES, | | | | | | CORE | | + + + + + + | CALCIUM, | 8.0 (L) | 8.6 - 10.2 | [facility] | | | PLASMA | | mg/dL | LABORATORY | | | (LAB) | | | SERVICES, | | | | | | CORE | | + + + + + + | ANION GAP | 14 (H) | 4 - 11 mmol/L | [facility] | | | | | | LABORATORY | | | | | | SERVICES, | | | | | | CORE | | + + + + + + | POTASSIUM | No Hemo | | [facility] | | | CMNT | | | LABORATORY | | | | | | SERVICES, | | | | | | CORE | | + + + + + + | BUN/CREATIN | 25 | 8 - 25 | [facility] | [...] MDRD equation recommended by the National | [facility] | | Kidney Disease Education Program. Estimated GFR Interpretive | LABORATORY | | Information: <60 mL/min/1.73 sq m Chronic Kidney | SERVICES, CORE | | Disease <15 mL/min/1.73 sq m Kidney Failure | | | Estimated GFR greater than 60 mL/min/1.73 sq m is of limited clinical | | | value. The MDRD equation is not valid in the following situations: | | | - Patients under 18 years [...] | + + + + + | [facility] | [address] | [place] [address] | | | SERVICES, CORE | [address] | | | + + + + + CAPILLARY BLOOD GLUCOSE (NO CHG), POC (11/24/2019 10:00 AM PDT) + +---------+ + + + | Component | Value | Ref Range | Performed | Pathologist | | | | | At | Signature | + +---------+ + + + | BLOOD | 122 (H) | 70 - 99 mg/dL | [facility] - | | | GLUCOSE, | | | [facility] | | | POC | | | [facility] | | | | | | OF CARE | | | | | | TESTS | | + +---------+ + + + + + | Specimen | + + | Blood | + + + + + + + | Performing | Address | City/State/Zipcode | Phone Number | | Organization | | | | + + + + + | [facility] | [address] | [place], [place] | | | [facility] | [address] | [phone] | | | TESTS | | | | + + + + + APTT (ACT. PART. THROMBO TIME) (11/24/2019 9:58 AM PDT) + + + + + + | Component | Value | Ref Range | Performed | Pathologist | | | | | At | Signature | + + + + + + | APTT | 38.7 (H) | 26.0 - 36.0 | [facility] | | | | | seconds | LABORATORY | | | | | | SERVICES, | | | | | | CORE | | + + + + + + + + | Specimen | + + | Blood - Blood | | (substance) | + + + + + | Narrative | Performed At | + + + | APTT values for monitoring heparin therapy may be affected by | [facility] | | specimens processed >1 hour after collection. APTT Therapeutic | LABORATORY | | Range: (75 - 120) sec Heparin | [facility]HEL[facility] CORE | | levels of 0.35 - 0.7 U/mL | | + + + + + + + + | Performing | Address | City/State/Zipcode | Phone Number | | Organization | | | | + + + + + | [facility] | [address] | [place] [address] | | | DWIGHT MARTINEZ | [address] | | | + + + + + VASC LAB VENOUS DUPLEX LOWER EXTREMITY BILAT COMP (11/24/2019 9:16 AM PDT) + + | Specimen | + + | | + + + + + | Narrative | Performed At | + + + | Bilateral: The duplex scanner was used to examine the deep and | [facility] | | superficial veins of the right and left lower extremities. The | RADIOLOGY VASC | | veins are patent bilaterally with normal flow and responses to | [facility] | | augmentation and compression maneuvers and no thrombus is noted. | | | Conclusions: A normal venous examination of the bilateral lower | | | extremities. No venous thrombosis was detected. I have | | | personally reviewed the images and, if necessary, edited the report. | | | I agree with the report as now presented. | | + + + + + | Procedure Note | + + | Service Account, [employer] In Interface - 11/24/2019 4:02 PM PDT Bilateral: The | | duplex scanner was used to examine the deep and superficial veins of the right and left | | lower extremities. The veins are patent bilaterally with normal flow and responses to | | augmentation and compression maneuvers and no thrombus is noted.Conclusions: A normal | | venous examination of the bilateral lower extremities. No venous thrombosis was | | detected.I have personally reviewed the images and, if necessary, edited the report. I | | agree with the report as now presented. | | | | | |I have personally reviewed the images and, if necessary, edited the report. I agree with t he report as now presented. | + + + +---------+ + + | Performing | Address | City/State/Zipcode | Phone Number | | Organization | | | | + +---------+ + + | [facility] | | | | | VASC US | | | | + +---------+ + + APTT (ACT. PART. THROMBO TIME) (11/24/2019 6:05 AM PDT) + + + + + + | Component | Value | Ref Range | Performed | Pathologist | | | | | At | Signature | + + + + + + | APTT | 106.6 (H) | 26.0 - 36.0 | [facility] | | | | | seconds | LABORATORY | | | | | | SERVICES, | | | | | | CORE | | + + + + + + + + | Specimen | + + | Blood - Blood | | (substance) | + + + + + | Narrative | Performed At | + + + | APTT values for monitoring heparin therapy may be affected by | [facility] | | specimens processed >1 hour after collection. APTT Therapeutic | LABORATORY | | Range: (75 - 120) sec Heparin | SERVICES, CORE | | levels of 0.35 - 0.7 U/mL | | + + + + + + + + | Performing | Address | City/State/Zipcode | Phone Number | | Organization | | | | + + + + + | [facility] | [address] | [place] [address] | | | SERVICES, CORE | [address] | | | + + + + + APTT (ACT. PART. THROMBO TIME) (11/24/2019 4:02 AM PDT) + + + + + + | Component | Value | Ref Range | Performed | Pathologist | | | | | At | Signature | + + + + + + | APTT | 148.8 (H) | 26.0 - 36.0 | [facility] | | | | | seconds | LABORATORY | | | | | | SERVICES, | | | | | | CORE | | + + + + + + + + | Specimen | + + | Blood - Blood | | (substance) | + + + + + | Narrative | Performed At | + + + | APTT values for monitoring heparin therapy may be affected by | [facility] | | specimens processed >1 hour after collection. APTT Therapeutic | LABORATORY | | Range: (75 - 120) sec Heparin | SERVICES, CORE | | levels of 0.35 - 0.7 U/mL | | + + + + + + + + | Performing | Address | City/State/Zipcode | Phone Number | | Organization | | | | + + + + + | [facility] | [address] | [place] [address] | | | SERVICES, CORE | [address] | | | + + + + + CBC (HEMOGRAM) ONLY (11/24/2019 4:02 AM PDT) + + + + + + | Component | Value | Ref Range | Performed | Pathologist | | | | | At | Signature | + + + + + + | WHITE CELL | 9.31 | 3.50 - 10.80 | [facility] | | | COUNT | | K/cu mm | LABORATORY | | | | | | SERVICES, | | | | | | CORE | | + + + + + + | RED CELL | 3.82 (L) | 4.00 - 5.20 | [facility] | | | COUNT | | M/cu mm | LABORATORY | | | | | | SERVICES, | | | | | | CORE | | + + + + + + | HEMOGLOBIN | 10.9 (L) | 12.0 - 16.0 | [facility] | | | | | g/dL | LABORATORY | | | | | | SERVICES, | | | | | | CORE | | + + + + + + | HEMATOCRIT | 33.3 (L) | 36.0 - 46.0 % | [facility] | | | | | | LABORATORY | | | | | | SERVICES, | | | | | | CORE | | + + + + + + | MCV | 87.2 | 80.0 - 100.0 fL | [facility] | | | | | | LABORATORY | | | | | | SERVICES, | | | | | | CORE | | + + + + + + | MCHC | 32.7 | 32.0 - 36.0 | [facility] | | | | | g/dL | LABORATORY | | | | | | SERVICES, | | | | | | CORE | | + + + + + + | RDW SD | 55.4 (H) | 35.1 - 46.3 fL | [facility] | | | | | | LABORATORY | | | | | | SERVICES, | | | | | | CORE | | + + + + + + | PLATELET | 238 | 150 - 400 K/cu | [facility] | | | COUNT | | mm | LABORATORY | | | | | | SERVICES, | | | | | | CORE | | + + + + + + | MPV | 8.5 (L) | 9.7 - 12.3 fL | [...] | + + + + + | [facility] | [address] | [place] [address] | | | MICHELLE, CORE | [address] | | | + + + + + BASIC METABOLIC SET (NA, K, CL, TCO2, BUN, CR, GLU, CA) (11/24/2019 4:02 AM PDT) + + + + + + | Component | Value | Ref Range | Performed | Pathologist | | | | | At | Signature | + + + + + + | GLUCOSE, | 157 (H) | 70 - 99 mg/dL | [facility] | | | PLASMA | | | LABORATORY | | | (LAB) | | | SERVICES, | | | | | | CORE | | + + + + + + | BUN, PLASMA | 61 (H) | 6 - 20 mg/dL | [facility] | | | (LAB) | | | LABORATORY | | | | | | SERVICES, | | | | | | CORE | | + + + + + + | CREATININE | 2.45 (H) | 0.60 - 1.10 | [facility] | | | PLASMA | | mg/dL | LABORATORY | | | (LAB) | | | SERVICES, | | | | | | CORE | | + + + + + + | EGFR | 25 (L) | >60 mL/min | [facility] | | | - | | | LABORATORY | | | STATELESS | | | SERVICES, | | | | | | CORE | | + + + + + + | EGFR NON | 20 (L) | >60 mL/min | [facility] | | | -LISA | | | LABORATORY | | | RICAN | | | SERVICES, | | | | | | CORE | | + + + + + + | SODIUM, | 134 (L) | 136 - 145 | [facility] | | | PLASMA | | mmol/L | LABORATORY | | | (LAB) | | | SERVICES, | | | | | | CORE | | + + + + + + | POTASSIUM, | 5.7 (H) | 3.4 - 5.0 | [facility] | | | PLASMA | | mmol/L | LABORATORY | | | (LAB) | | | SERVICES, | | | | | | CORE | | + + + + + + | CHLORIDE, | 111 (H) | 97 - 108 mmol/L | [facility] | | | PLASMA | | | LABORATORY | | | (LAB) | | | SERVICES, | | | | | | CORE | | + + + + + + | TOTAL CO2, | 13 (L) | 21 - 32 mmol/L | [facility] | | | PLASMA | | | LABORATORY | | | (LAB) | | | SERVICES, | | | | | | CORE | | + + + + + + | CALCIUM, | 8.1 (L) | 8.6 - 10.2 | [facility] | | | PLASMA | | mg/dL | LABORATORY | | | (LAB) | | | SERVICES, | | | | | | CORE | | + + + + + + | ANION GAP | 10 | 4 - 11 mmol/L | [facility] | | | | | | LABORATORY | | | | | | SERVICES, | | | | | | CORE | | + + + + + + | POTASSIUM | No Hemo | | [facility] | | | CMNT | | | LABORATORY | | | | | | SERVICES, | | | | | | CORE | | + + + + + + | BUN/CREATIN | 25 | 8 - 25 | [facility] | [...] MDRD equation recommended by the National | [facility] | | Kidney Disease Education Program. Estimated GFR Interpretive | LABORATORY | | Information: <60 mL/min/1.73 sq m Chronic Kidney | SERVICES, [facility] | | Disease <15 mL/min/1.73 sq m Kidney Failure | | | Estimated GFR greater than 60 mL/min/1.73 sq m is of limited clinical | | | value. The MDRD equation is not valid in the following situations: | | | - Patients under 18 years [...] | + + + + + | [facility] | [address] | [place] [address] | | | MICHELLE, DWIGHT | [address] | | | + + + + + FREE T4 (11/24/2019 4:02 AM PDT) + +---------+ + + + | Component | Value | Ref Range | Performed | Pathologist | | | | | At | Signature | + +---------+ + + + | FREE T4 | 2.4 (H) | 0.6 - 1.2 ng/dL | [facility] | | | | | | LABORATORY | | | | | | SERVICES, | | | | | | CORE | | + +---------+ + + + + + | Specimen | + + | Blood - Blood | | (substance) | + + + + + + + | Performing | Address | City/State/Zipcode | Phone Number | | Organization | | | | + + + + + | [facility] | [address] | [place] [address] | | | SERVICES, CORE | [address] | | | + + + + + NT-PRO BNP (11/24/2019 4:02 AM PDT) + + + + + + | Component | Value | Ref Range | Performed | Pathologist | | | | | At | Signature | + + + + + + | NT-PRO BNP | 12,502 (H) | <125 pg/mL | [facility] | | | | | [...] | + + + + + | [facility] | [address] | [place] [address] | | | SERVICES, DWIGHT | [address] | | | + + + + + CENTRAL LINE (11/23/2019 11:29 PM PDT) + + + | Narrative | Performed At | + + + | Mian Márquez MD 11/23/2019 11:36 PM CENTRAL LINE | | | Performed by: Mian Márquez MD Authorized by: Tg Uriostegui MD | | | Written consent obtained?: Yes Consent given by: Patient | | | Patient identity confirmed per policy: Yes Procedural pause: | | | Immediately prior to the procedure a pause per universal protocol | | | was called . Location performed: 7A Skin Preparation: | | | Chloraprep Protective barrier: Cap, Mask, Hand scrub, Gown, | | | Gloves and Full body drape Sterile Ultrasound Technique: Sterile | | | Ultrasound techniques (sterile gel, and sterile probe cover) used | | | Indications: Indications: Administration of medicationn | | | Diagnosis indicating procedure: Shock Responsible Provider: | | | Operators: Fellow Anesthesia: Anesthesia: Local | | | infiltration Local anesthetic: Lidocaine 1% w/o epinephrine | | | Anesthetic total (ml): 5 Procedure details: Monitoring: | | | EKG, SaO2, NIBP and Arterial line Insertion side: Left | | | Insertion site: Internal Jugular vein Insertion site | | | statement: With catheter tip targeted in SVC, see CXR report for | | | confirmation Vein rn clinical technique: Ultrasound Guidance | | | Techique: The standard Seldinger technique was used for vessel | | | cannulation Confirmed by: The wire was visualized with | | | ultrasound in the correct target vessel Catheter type: Triple | | | lumen Catheter size: 7 Fr Catheter length: 16 cm | | | Insertion depth: 16 cm Ports: All ports aspirated for blood | | | Ports flushed with: Saline Number of attempts: 1 | | | Fixation and Dressing: Line secured: Suture and Dressing | | | Applied The guide wire was removed without difficulties and intact | | | Dressing: Dressing applied prior of removal of full barrier | | | drape Complications: Complications: None Vital Signs: | | | Vital signs stable: Yes Verification: Verification: Line | | | verified by radiograph | | + + + 12 LEAD ECG (11/23/2019 11:29 PM PDT) + + + + + + | Component | Value | Ref Range | Performed | Pathologist | | | | | At | Signature | + + + + + + | VENTRICULAR | 134 | bpm | [facility] | | | RATE | | | OF | | | | | | CARDIOLOGY | | + + + + + + | ATRIAL RATE | 134 | ms | [facility] | | | | | | OF | | | | | | CARDIOLOGY | | + + + + + + | P-R | 164 | ms | [facility] | | | INTERVAL | | | OF | | | | | | CARDIOLOGY | | + + + + + + | P AXIS | -6 | deg | [facility] | | | | | | OF | | | | | | CARDIOLOGY | | + + + + + + | QRS | 105 | ms | [facility] | | | DURATION | | | OF | | | | | | CARDIOLOGY | | + + + + + + | QT | 293 | ms | [facility] | | | | | | OF | | | | | | CARDIOLOGY | | + + + + + + | QTC-BAMAURA | 438 | ms | [facility] | | | | | | OF | | | | | | CARDIOLOGY | | + + + + + + | R AXIS | 180 | deg | [facility] | | | | | | OF | | | | | | CARDIOLOGY | | + + + + + + | T AXIS | 80 | deg | [facility] | | | | | | OF | | | | | | CARDIOLOGY | | + + + + + + | ECG | Sinus tachycardia | | [facility] | | | IMPRESSION | | | OF | | | | | | CARDIOLOGY | | + + + + + + | ECG | Low voltage, precordial | | [facility] | | | IMPRESSION | leads | | OF | | | | | | CARDIOLOGY | | + + + + + + | ECG | Abnormal lateral Q waves | | [facility] | | | IMPRESSION | | | OF | | | | | | CARDIOLOGY | | + + + + + + | ECG | Indeterminate axis- | | [facility] | | | IMPRESSION | ABNORMAL ECG - | | OF | | | | | | CARDIOLOGY | | + + + + + + | ECG | Electronically signed | | [facility] | | | IMPRESSION | by: ALEJANDRA IQBAL | | OF | | | | 11-24-2019 17:01:20 | | CARDIOLOGY | | + + + + + + + + | Specimen | + + | | + + + + + | Narrative | Performed At | + + + | | | + + + + + + + + | Performing | Address | City/State/Zipcode | Phone Number | | Organization | | | | + + + + + | [facility] | [address] | [place], [place] | | | CARDIOLOGY | [address] | [phone] | | + + + + + TROPONIN I, PLASMA (11/23/2019 11:27 PM PDT) + + + + + + | Component | Value | Ref Range | Performed | Pathologist | | | | | At | Signature | + + + + + + | TROPONIN I | 1.27 (H) | <0.80 ng/mL | [facility] | | | | | [...] + + | [facility] | [address] | [place] [address] | | | SERVICES, CORE | [address] | | | + + + + + BASIC METABOLIC SET (NA, K, CL, TCO2, BUN, CR, GLU, CA) (11/23/2019 11:27 PM PDT) + + + + + + | Component | Value | Ref Range | Performed | Pathologist | | | | | At | Signature | + + + + + + | GLUCOSE, | 208 (H) | 70 - 99 mg/dL | [facility] | | | PLASMA | | | LABORATORY | | | (LAB) | | | SERVICES, | | | | | | CORE | | + + + + + + | BUN, PLASMA | 59 (H) | 6 - 20 mg/dL | [facility] | | | (LAB) | | | LABORATORY | | | | | | SERVICES, | | | | | | CORE | | + + + + + + | CREATININE | 2.43 (H) | 0.60 - 1.10 | [facility] | | | PLASMA | | mg/dL | LABORATORY | | | (LAB) | | | SERVICES, | | | | | | CORE | | + + + + + + | EGFR | 25 (L) | >60 mL/min | [facility] | | | - | | | LABORATORY | | | STATELESS | | | SERVICES, | | | | | | CORE | | + + + + + + | EGFR NON | 21 (L) | >60 mL/min | [facility] | | | -LISA | | | LABORATORY | | | RICAN | | | SERVICES, | | | | | | CORE | | + + + + + + | SODIUM, | 134 (L) | 136 - 145 | [facility] | | | PLASMA | | mmol/L | LABORATORY | | | (LAB) | | | SERVICES, | | | | | | CORE | | + + + + + + | POTASSIUM, | 5.5 (H) | 3.4 - 5.0 | [facility] | | | PLASMA | | mmol/L | LABORATORY | | | (LAB) | | | SERVICES, | | | | | | CORE | | + + + + + + | CHLORIDE, | 112 (H) | 97 - 108 mmol/L | [facility] | | | PLASMA | | | LABORATORY | | | (LAB) | | | SERVICES, | | | | | | CORE | | + + + + + + | TOTAL CO2, | 12 (L) | 21 - 32 mmol/L | [facility] | | | PLASMA | | | LABORATORY | | | (LAB) | | | SERVICES, | | | | | | CORE | | + + + + + + | CALCIUM, | 8.0 (L) | 8.6 - 10.2 | [facility] | | | PLASMA | | mg/dL | LABORATORY | | | (LAB) | | | SERVICES, | | | | | | CORE | | + + + + + + | ANION GAP | 10 | 4 - 11 mmol/L | [facility] | | | | | | LABORATORY | | | | | | SERVICES, | | | | | | CORE | | + + + + + + | POTASSIUM | No Hemo | | [facility] | | | CMNT | | | LABORATORY | | | | | | SERVICES, | | | | | | CORE | | + + + + + + | BUN/CREATIN | 24 | 8 - 25 | [facility] | [...] MDRD equation recommended by the National | [facility] | | Kidney Disease Education Program. Estimated GFR Interpretive | LABORATORY | | Information: <60 mL/min/1.73 sq m Chronic Kidney | SERVICES, CORE | | Disease <15 mL/min/1.73 sq m Kidney Failure | | | Estimated GFR greater than 60 mL/min/1.73 sq m is of limited clinical | | | value. The MDRD equation is not valid in the following situations: | | | - Patients under 18 years [...] | + + + + + | [facility] | [address] | [place] [address] | | | MICHELLE, DWIGHT | [address] | | | + + + + + CAPILLARY BLOOD GLUCOSE (NO CHG), POC (11/23/2019 11:25 PM PDT) + +---------+ + + + | Component | Value | Ref Range | Performed | Pathologist | | | | | At | Signature | + +---------+ + + + | BLOOD | 197 (H) | 70 - 99 mg/dL | [facility] - | | | GLUCOSE, | | | [facility] | | | POC | | | [facility] | | | | | | OF CARE | | | | | | TESTS | | + +---------+ + + + + + | Specimen | + + | Blood | + + + + + + + | Performing | Address | City/State/Zipcode | Phone Number | | Organization | | | | + + + + + | [facility] | [address] | [place], [place] | | | [facility] | [address] | [phone] | | | TESTS | | | | + + + + + APTT (ACT. PART. THROMBO TIME) (11/23/2019 10:48 PM PDT) + + + + + + | Component | Value | Ref Range | Performed | Pathologist | | | | | At | Signature | + + + + + + | APTT | >200.0 (H) | 26.0 - 36.0 | [facility] | | | | | seconds | LABORATORY | | | | | | SERVICES, | | | | | | CORE | | + + + + + + + + | Specimen | + + | Blood - Blood | | (substance) | + + + + + | Narrative | Performed At | + + + | APTT values for monitoring heparin therapy may be affected by | [facility] | | specimens processed >1 hour after collection. APTT Therapeutic | LABORATORY | | Range: (75 - 120) sec Heparin | SERVICES, CORE | | levels of 0.35 - 0.7 U/mL | | + + + + + + + + | Performing | Address | City/State/Zipcode | Phone Number | | Organization | | | | + + + + + | [facility] | [address] | [place] [address] | | | SERVICES, CORE | [address] | | | + + + + + CT ABDOMEN W IV CONTRAST (11/23/2019 9:51 PM PDT) + + | Specimen | + + | | + + + + + | Narrative | Performed At | + + + | EXAM: CT of the abdomen WITH contrast HISTORY: Evaluate renal | [facility] | | veins for tumor thrombus. COMPARISON: 11/21/2019 CT, 07/27/2019 CT. | RADIOLOGY VOICE | | TECHNIQUE: CT of the abdomen with intravenous contrast. Coronal | RECOGNITION 2 | | and sagittal reformats were created. FINDINGS: LOWER THORAX: | | | Pulmonary emboli. Bilateral lower lobe groundglass opacities and | | | atelectasis are unchanged. See separate chest CT report. LIVER: | | | Multiple large confluent and infiltrative hepatic metastatic lesions | | | are again noted, overall stable when compared to 07/27/2019 CT when | | | they were last imaged with contrast. Many of these are poorly | | | measured. One measurable lesion in segment 4 is 4.4 x 4.4 cm, | | | previously 4.8 x 4.6 cm. These lesions are relatively inconspicuous in | | | the portal venous phase (currently image) and would be best imaged in | | | the arterial phase in the future (using liver CT protocol). | | | Periportal edema is noted. BILIARY: There is diffuse gallbladder | | | wall thickening consistent with reactive edema. The gallbladder is | | | nondistended. PANCREAS: Unremarkable. SPLEEN: Unremarkable. | | | ADRENALS: Unremarkable. KIDNEYS/URETERS: The large infiltrative left | | | renal mass measures 11.0 x 9.1 x 13.3 cm, unchanged compared to prior | | | given differences in measuring technique. Multiple left perirenal | | | collaterals are noted. A 4 x 2.1 cm enhancing mass is seen at the | | | superior pole of the kidney superficial to Gerota's fascia, consistent | | | with extracapsular extension. The right kidney is unremarkable. | | | GI TRACT: Visualized portions are unremarkable. PERITONEUM: Small | | | volume of free fluid surrounds the left renal mass and extends into | | | the anterior and posterior pararenal space, abutting the lateral conal | | | fascia. A small amount of perisplenic fluid is noted. Central | | | mesenteric edema is noted. LYMPH NODES: Unchanged retroperitoneal | | | foster metastases, for example a periaortic metastatic node measures | | | 3.7 x 2.2 cm (axial 80). VESSELS: Tumor thrombus expands the left | | | renal vein and extends to the level of the cava, similar compared to | | | priors dating back to 07/27/2019. No IVC tumor is seen. BONES AND | | | SOFT TISSUES: Changes of vertebral body L2 pathologic fracture post | | | kyphoplasty and new unchanged compression deformity of L1 which may or | | | may not be pathologic. IMPRESSION: 1. Compared to 11/21/2019, | | | no significant change in the large infiltrative left renal cell | | | carcinoma with extension into the left renal vein and associated tumor | | | thrombus extending to the level of the IVC. No IVC tumor. 2. | | | Bulky hepatic metastases appear stable (see comment above). Stable | | | retroperitoneal lymphadenopathy. 3. Unchanged vertebral body L2 | | | pathologic fracture post kyphoplasty and new L1 compression deformity. | | | Critical results were discussed with Dr. Alejandra Sage and the | | | ICU team on 11/23/2019 10:04 PM by Lemuel Diego MD. I have | | | personally reviewed the images and, if necessary, edited the report. I | | | agree with the report as now presented. Final signature: Tom Palacios | | | MD Ruslan 11/24/2019 7:32 AM Preliminary: Lemuel Diego MD | | | Dictation initiated: Lemuel Diego MD 11/23/2019 9:55 PM | | + + + + + | Procedure Note | + + | Service Account, Radiant Res In Interface - 11/24/2019 7:33 AM PDT EXAM: CT of the | | abdomen WITH contrast HISTORY: Evaluate renal veins for tumor thrombus. COMPARISON: | | 11/21/2019 CT, 07/27/2019 CT. TECHNIQUE: CT of the abdomen with intravenous contrast. | | Coronal and sagittal reformats were created. FINDINGS: LOWER THORAX: Pulmonary emboli. | | Bilateral lower lobe groundglass opacities and atelectasis are unchanged. See separate | | chest CT report. LIVER: Multiple large confluent and infiltrative hepatic metastatic | | lesions are again noted, overall stable when compared to 07/27/2019 CT when they were | | last imaged with contrast. Many of these are poorly measured. One measurable lesion in | | segment 4 is 4.4 x 4.4 cm, previously 4.8 x 4.6 cm. These lesions are relatively | | inconspicuous in the portal venous phase (currently image) and would be best imaged in | | the arterial phase in the future (using liver CT protocol). Periportal edema is noted. | | BILIARY: There is diffuse gallbladder wall thickening consistent with reactive edema. | | The gallbladder is nondistended.PANCREAS: Unremarkable. SPLEEN: Unremarkable.ADRENALS: | | Unremarkable.KIDNEYS/URETERS: The large infiltrative left renal mass measures 11.0 x 9.1 | | x 13.3 cm, unchanged compared to prior given differences in measuring technique. | | Multiple left perirenal collaterals are noted. A 4 x 2.1 cm enhancing mass is seen at | | the superior pole of the kidney superficial to Gerota's fascia, consistent with | | extracapsular extension. The right kidney is unremarkable. GI TRACT: Visualized portions | | are unremarkable.PERITONEUM: Small volume of free fluid surrounds the left renal mass | | and extends into the anterior and posterior pararenal space, abutting the lateral conal | | fascia. A small amount of perisplenic fluid is noted. Central mesenteric edema is noted. | | LYMPH NODES: Unchanged retroperitoneal foster metastases, for example a periaortic | | metastatic node measures 3.7 x 2.2 cm (axial 80).VESSELS: Tumor thrombus expands the | | left renal vein and extends to the level of the cava, similar compared to priors dating | | back to 07/27/2019. No IVC tumor is seen. BONES AND SOFT TISSUES: Changes of vertebral | | body L2 pathologic fracture post kyphoplasty and new unchanged compression deformity of | | L1 which may or may not be pathologic. IMPRESSION: 1. Compared to 11/21/2019, no | | significant change in the large infiltrative left renal cell carcinoma with extension | | into the left renal vein and associated tumor thrombus extending to the level of the | | IVC. No IVC tumor. 2. Bulky hepatic metastases appear stable (see comment above). Stable | | retroperitoneal lymphadenopathy. 3. Unchanged vertebral body L2 pathologic fracture | | post kyphoplasty and new L1 compression deformity. Critical results were discussed with | | Dr. Alejandra Sage and the ICU team on 11/23/2019 10:04 PM by Lemuel Diego MD. I have | | personally reviewed the images and, if necessary, edited the report. I agree with the | | report as now presented. Final signature: Tom Mercer MD 11/24/2019 7:32 AM | | Preliminary: Lemuel Diego MD Dictation initiated: Lemuel Diego MD 11/23/2019 9:55 PM | |2. Bulky hepatic metastases appear stable (see comment above). Stable retroperitoneal lymph adenopathy. | | | |3. Unchanged vertebral body L2 pathologic fracture post kyphoplasty and new L1 compression deformity. | | | |Critical results were discussed with Dr. Alejandra Sage and the ICU team on 11/23/2019 10:04 PM by Lemuel Diego MD. | | | |I have personally reviewed the images and, if necessary, edited the report. I agree with th e report as now presented. | | | |Final signature: Tom Mercer MD 11/24/2019 7:32 AM | |Preliminary: Lemuel Diego MD | |Dictation initiated: Lemuel Diego MD 11/23/2019 9:55 PM | + + + +---------+ + + | Performing | Address | City/State/Zipcode | Phone Number | | Organization | | | | + +---------+ + + | [facility] | | | | | VOICE RECOGNITION 2 | | | | + +---------+ + + CTA CHEST PULMONARY EMBOLISM W CONTRAST (11/23/2019 9:49 PM PDT) + + | Specimen | + + | | + + + + + | Narrative | Performed At | + + + | EXAM: CTA CHEST PULMONARY EMBOLISM HISTORY: Evaluate for | [facility] | | pulmonary embolism versus tumor embolism. IR has requested CT down to | RADIOLOGY VOICE | | renal veins to evaluate for clot/tumor. COMPARISON: 11/21/2019 CT. | RECOGNITION 2 | | TECHNIQUE: Following uneventful administration of intravenous | | | contrast helical scanning was obtained of the chest and reviewed in | | | soft tissue and lung algorithm. Oblique 3D-MIP images were also | | | generated. CONTRAST: IOHEXOL 350 MG IODINE/ML INTRAVENOUS SOLUTION | | | 100 mL FINDINGS: Opacification is adequate for assessment | | | of pulmonary artery emboli. Extensive bilateral pulmonary emboli | | | extending from bilateral distal main pulmonary arteries into the | | | majority of bilateral lobar and segmental arteries, with heaviest clot | | | burden in the left pulmonary artery and branches. There is CT | | | evidence of right heart strain, with straightening/leftward bowing of | | | interventricular septum and reflux of contrast into the IVC. There | | | is normal three-vessel aortic branching. 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 No axillary | | | or hilar adenopathy. Visualized portions of the thyroid gland are | | | unremarkable. Scattered pulmonary nodules are unchanged, including | | | a right anterior middle lobe nodule measuring 4 mm (axial lung 102), | | | and a right lower lobe nodule measuring 4 mm (axial lung 75). | | | Scattered areas of bronchiectasis and radiation related | | | paramediastinal changes are also unchanged. No focal consolidation | | | or evidence of pulmonary edema. There is no pneumothorax. There is no | | | pleural effusion. Abdominal findings are detailed on report for | | | same-day CT abdomen. There is no acute osseous or soft tissue | | | abnormality. IMPRESSION: Extensive acute bilateral pulmonary | | | emboli involving both distal mainstem pulmonary arteries, multiple | | | bilateral lobar and segmental arteries with CT evidence of right heart | | | strain. No evidence of pulmonary infarct. Unchanged pulmonary | | | nodules, as described above. Abdominal findings are detailed on | | | report for same-day CT abdomen. Critical results were discussed | | | with Dr. Alejandra Sage and the ICU team on 11/23/2019 10:04 PM by | | | Lemuel Diego MD. I have personally reviewed the images and, if | | | necessary, edited the report. I agree with the report as now | | | presented. Final signature: Rachel Ba MD 11/24/2019 8:01 | | | AM Preliminary: Lemuel Diego MD Dictation initiated: Lemuel Tsang | | | MD Johnathon 11/23/2019 9:59 PM | | + + + + + | Procedure Note | + + | Service Account, Radiant Res In Interface - 11/24/2019 8:02 AM PDT EXAM: CTA CHEST | | PULMONARY EMBOLISM HISTORY: Evaluate for pulmonary embolism versus tumor embolism. IR | | has requested CT down to renal veins to evaluate for clot/tumor. COMPARISON: 11/21/2019 | | CT. TECHNIQUE: Following uneventful administration of intravenous contrast helical | | scanning was obtained of the chest and reviewed in soft tissue and lung algorithm. | | Oblique 3D-MIP images were also generated. CONTRAST: IOHEXOL 350 MG IODINE/ML | | INTRAVENOUS SOLUTION 100 mL FINDINGS: Opacification is adequate for assessment of | | pulmonary artery emboli. Extensive bilateral pulmonary emboli extending from bilateral | | distal main pulmonary arteries into the majority of bilateral lobar and segmental | | arteries, with heaviest clot burden in the left pulmonary artery and branches. There is | | CT evidence of right heart strain, with straightening/leftward bowing of | | interventricular septum and reflux of contrast into the IVC. There is normal | | three-vessel aortic branching. Multiple calcified mediastinal lymph nodes are present | | from treated lymphoma. No axillary or hilar adenopathy. Visualized portions of the | | thyroid gland are unremarkable. Scattered pulmonary nodules are unchanged, including a | | right anterior middle lobe nodule measuring 4 mm (axial lung 102), and a right lower | | lobe nodule measuring 4 mm (axial lung 75). Scattered areas of bronchiectasis and | | radiation related paramediastinal changes are also unchanged. No focal consolidation or | | evidence of pulmonary edema. There is no pneumothorax. There is no pleural effusion. | | Abdominal findings are detailed on report for same-day CT abdomen. There is no acute | | osseous or soft tissue abnormality. IMPRESSION: Extensive acute bilateral pulmonary | | emboli involving both distal mainstem pulmonary arteries, multiple bilateral lobar and | | segmental arteries with CT evidence of right heart strain. No evidence of pulmonary | | infarct. Unchanged pulmonary nodules, as described above. Abdominal findings are | | detailed on report for same-day CT abdomen. Critical results were discussed with . | | Alejandra Sage and the ICU team on 11/23/2019 10:04 PM by Lemuel Diego MD. I have | | personally reviewed the images and, if necessary, edited the report. I agree with the | | report as now presented. Final signature: Rachel Ba MD 11/24/2019 8:01 AM | | Preliminary: Lemuel Diego MD Dictation initiated: Lemuel Diego MD 11/23/2019 9:59 PM | |Extensive acute bilateral pulmonary emboli involving both distal mainstem pulmonary arterie s, multiple bilateral lobar and segmental arteries with CT evidence of right heart strain. N o evidence of pulmonary infarct. | | | |Unchanged pulmonary nodules, as described above. | | | |Abdominal findings are detailed on report for same-day CT abdomen. | | | |Critical results were discussed with Dr. Alejandra Sage and the ICU team on 11/23/2019 10:04 PM by Lemuel Diego MD. | | | |I have personally reviewed the images and, if necessary, edited the report. I agree with th e report as now presented. | | | |Final signature: Rachel Ba MD 11/24/2019 8:01 AM | |Preliminary: Lemuel Diego MD | |Dictation initiated: Lemuel Diego MD 11/23/2019 9:59 PM | + + + +---------+ + + | Performing | Address | City/State/Zipcode | Phone Number | | Organization | | | | + +---------+ + + | [facility] | | | | | VOICE RECOGNITION 2 | | | | + +---------+ + + CT HEAD WO CONTRAST (11/23/2019 9:37 PM PDT) + + | Specimen | + + | | + + + + + | Narrative | Performed At | + + + | EXAM: CT HEAD WITHOUT CONTRAST HISTORY: Evaluate for | [facility] | | mass/metastasis. 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 COMPARISON: 08/30/2019 MRI. | RECOGNITION 2 | | TECHNIQUE: CT of the head without intravenous contrast. FINDINGS: | | | BRAIN: No acute intracranial abnormality. No evidence of | | | hemorrhage, mass, or acute infarction. The ventricles are normal in | | | size and morphology. SOFT TISSUES: Unremarkable. SKULL AND SKULL | | | BASE: No fractures or destructive lesions. Mastoids and middle ears | | | are unremarkable. FACE/ORBITS: Visualized portions are unremarkable. | | | PARANASAL SINUSES: Visualized portions are unremarkable. | | | IMPRESSION: No acute intracranial abnormality. No CT evidence of | | | metastasis. I have personally reviewed the images and, if | | | necessary, edited the report. I agree with the report as now | | | presented. Final signature: Arsen Hernadez MD 11/24/2019 | | | 7:18 AM Preliminary: Lemuel Diego MD Dictation initiated: | | | Lemuel Diego MD 11/23/2019 9:53 PM | | + + + + + | Procedure Note | + + | Service Account, Radiant Res In Interface - 11/24/2019 7:19 AM PDT EXAM: CT HEAD | | WITHOUT CONTRAST HISTORY: Evaluate for mass/metastasis. Stage IV renal cell carcinoma | | with lung, liver, and lumbar spine metastases. COMPARISON: 08/30/2019 MRI. TECHNIQUE: CT | | of the head without intravenous contrast. FINDINGS: BRAIN: No acute intracranial | | abnormality. No evidence of hemorrhage, mass, or acute infarction. The ventricles are | | normal in size and morphology. SOFT TISSUES: Unremarkable.SKULL AND SKULL BASE: No | | fractures or destructive lesions. Mastoids and middle ears are unremarkable.FACE/ORBITS: | | Visualized portions are unremarkable.PARANASAL SINUSES: Visualized portions are | | unremarkable. IMPRESSION: No acute intracranial abnormality. No CT evidence of | | metastasis. I have personally reviewed the images and, if necessary, edited the report. | | I agree with the report as now presented. Final signature: Arsen Hernadez MD | | 11/24/2019 7:18 AM Preliminary: Lemuel Diego MD Dictation initiated: Lemuel Diego MD | | 11/23/2019 9:53 PM | |SKULL AND SKULL BASE: No fractures or destructive lesions. Mastoids and middle ears are unr emarkable. | |FACE/ORBITS: Visualized portions are unremarkable. | |PARANASAL SINUSES: Visualized portions are unremarkable. | | | |IMPRESSION: | | | |No acute intracranial abnormality. No CT evidence of metastasis. | | | |I have personally reviewed the images and, if necessary, edited the report. I agree with th e report as now presented. | | | |Final signature: Arsen Hernadez MD 11/24/2019 7:18 AM | |Preliminary: Lemuel Diego MD | |Dictation initiated: Lemuel Diego MD 11/23/2019 9:53 PM | + + + +---------+ + + | Performing | Address | City/State/Zipcode | Phone Number | | Organization | | | | + +---------+ + + | [facility] | | | | | VOICE RECOGNITION 2 | | | | + +---------+ + + X-RAY PORTABLE CHEST 1 VIEW (11/23/2019 8:17 PM PDT) + + | Specimen | + + | | + + + + + | Narrative | Performed At | + + + | EXAM: AR CHEST 1 VIEW HISTORY: L IJ line placement | [facility] | | COMPARISON: Earlier today FINDINGS: Left IJ catheter has been | RADIOLOGY VOICE | | placed with tip projecting in the upper superior vena cava at the | RECOGNITION 2 | | confluence of the brachiocephalic veins. Cardia mediastinal contours | | | are stable. Extensive mediastinal calcifications consistent with | | | history of treated Hodgkin's disease. The lungs are clear. There is no | | | pleural effusion or pneumothorax. IMPRESSION: Left IJ | | | catheter placed with tip at the confluence of the brachiocephalic | | | veins. No pneumothorax. Clear lungs. I have personally | | | reviewed the images and, if necessary, edited the report. I agree with | | | the report as now presented. Final signature: Jah Gilmore MD | | | 11/24/2019 9:01 AM Preliminary: Jah Gilmore MD Dictation | | | initiated: Jah Gilmore MD 11/24/2019 9:00 AM | | + + + + + | Procedure Note | + + | Service Account, [employer] Res In Interface - 11/24/2019 9:02 AM PDT EXAM: AR CHEST 1 | | VIEW HISTORY: L IJ line placement COMPARISON: Earlier today FINDINGS: Left IJ catheter | | has been placed with tip projecting in the upper superior vena cava at the confluence | | of the brachiocephalic veins. Cardia mediastinal contours are stable. Extensive | | mediastinal calcifications consistent with history of treated Hodgkin's disease. The | | lungs are clear. There is no pleural effusion or pneumothorax. IMPRESSION: Left IJ | | catheter placed with tip at the confluence of the brachiocephalic veins. No | | pneumothorax. Clear lungs. I have personally reviewed the images and, if necessary, | | edited the report. I agree with the report as now presented. Final signature: Jah | | MD Mando 11/24/2019 9:01 AM Preliminary: Jah Gilmore MD Dictation initiated: | | Jah Gilmore MD 11/24/2019 9:00 AM | |IMPRESSION: | | | |Left IJ catheter placed with tip at the confluence of the brachiocephalic veins. No pneumot horax. | | | |Clear lungs. | | | |I have personally reviewed the images and, if necessary, edited the report. I agree with th e report as now presented. | | | |Final signature: Jah Gilmore MD 11/24/2019 9:01 AM | |Preliminary: Jah Gilmore MD | |Dictation initiated: Jah Gilmore MD 11/24/2019 9:00 AM | + + + +---------+ + + | Performing | Address | City/State/Zipcode | Phone Number | | Organization | | | | + +---------+ + + | [facility] | | | | | VOICE RECOGNITION 2 | | | | + +---------+ + + ARTERIAL LINE (11/23/2019 7:48 PM PDT) + + + | Narrative | Performed At | + + + | Juan Grossman MD 11/23/2019 7:50 PM ARTERIAL LINE | | | Performed by: Juan Grossman MD Authorized by: Tg Uriostegui MD | | | Written consent obtained?: Yes Emergent situation Consent | | | given by: Patient Patient identity confirmed per policy: Yes | | | Procedural pause: Immediately prior to the procedure a pause per | | | universal protocol was called . Indications: Beat to beat | | | blood pressure monitoring and Frequent lab draws Diagnosis | | | indicating procedure: Shock, concern for PE Location performed: | | | 7A Operators: Resident Attending physically present: Yes | | | Resident name: Matt Grossman MD Skin Preparation: Chloraprep | | | Protective barrier: Cap, Mask, Hand scrub, Gloves and Partially | | | draped Sterile Ultrasound Used: Sterile Ultrasound Used | | | Anesthesia: Local infiltration Local anesthetic: Lidocaine 1% | | | Insertion side: Right Insertion site: Radial Catheter size: | | | 20g Number of attempts: 2 Line secured: StatLock and tape | | | Complications: None | | + + + TRANSTHORACIC ECHOCARDIOGRAM, ADULT (11/23/2019 6:54 PM PDT) + + + + + + | Component | Value | Ref Range | Performed | Pathologist | | | | | At | Signature | + + + + + + | EJECTION | 65 to 70 | | [facility] | | | FRACTION | | | OF | | | | | | CARDIOLOGY | | + + + + + + | EJECTION | 67.5 | % | [facility] | | | FRACTION | | | OF | | | RANGE MEAN | | | CARDIOLOGY | | | VALUE | | | | | + + + + + + + + | Specimen | + + | | + + + +---- + | Narrative | Per formed At | + +---- + | [facility] | [facility] OF | | [facility] [address] | | [place], [place] [address] Ph: | | | Pt Name: HANK ALTMAN | | | Study Date/Time 11/23/2019 / 6:54:37 PMMRN: [id number] | | | Most recent prior: 11/22/2019Acc #: [id number] | | | No. previous echos: 2DOB: 1965 54 years | | | Heart Rate: 75 bpmHeight: 62.0 in | | | Blood Pressure: 100/73 mm/HgWeight: 187.0 lb | | | Gender: FBSA: 1.86 m | | | Order ID: [id number] Study | | | Location: 7ASonographer: Darlene Ballesterosonographer 2:Fellow: Darlene | | | Kingsley Espitia Provider:Modalities Performed: Limited 2D.Study | | | Quality: Good.Exam Indication: FELLOW STUDY, PEHistory: 54 y.o. woman | | | admitted to the MICU for massive PE Patient history has been obtained | | | from the EHR Transthoracic Echocardiographic Report | | | + | | | ---------+ Final Impressions: | | | | | | | | | | | | | | | 1. The LV function is normal. | | | 2. RV cavity size | | | is severely enlarged. RV global systolic function is | | | severely reduced. | | | 3. The aortic valve is | | | trileaflet and mildly calcified. There is no | | | significant aortic valve stenosis. | | | 4. Compared to the most recent exam | | | dated 11/22/2019, there are no significant changes | | | of the LV function. RV is larger and RV dysfunction is more | | | prominent. | | | | | | | | | | | | + | | | + Description of Findings: Cardiac Rhythm: Uncertain.Left | | | Ventricle: Visually estimated left ventricular ejection fraction is 65 | | | - 70%. The interventricular septum is flattened in systole and | | | diastole consistent with right ventricular pressure and volume | | | overload. The LV diastolic filling pattern is normal. The LV function | | | is normal.Left Ventricular Wall Motion: Left ventricular systolic | | | thickening is normal in all segments.Right Ventricle: Right | | | ventricular cavity size is severely enlarged. The RV global systolic | | | function is severely reduced. Unable to calculate RVSP due to absence | | | of tricuspid regurgitation.Aortic Valve: The aortic valve is | | | trileaflet and mildly calcified. No indication of aortic valve | | | regurgitation.Mitral Valve: Mild mitral annular | | | calcification.Tricuspid Valve: The tricuspid valve is not well | | | visualized.Pulmonic Valve: The pulmonic valve is not well | | | visualized.Aorta: The ascending aorta is not well visualized.Venous: | | | The inferior vena cava is abnormal. The inferior vena cava was | | | dilated, with respiratory size variation less than 50%.Pericardium: No | | | pericardial effusion is seen. Report electronically signed by: | | | [id number] Annette Martinez MD, PhD (11/24/2019, 8:55:30 AM) Final | | | | | |Aortic Valve: The aortic valve is trileaflet and mildly calcified. No indication of | | |aortic valve regurgitation. | | |Mitral Valve: Mild mitral annular calcification. | | |Tricuspid Valve: The tricuspid valve is not well visualized. | | |Pulmonic Valve: The pulmonic valve is not well visualized. | | |Aorta: The ascending aorta is not well visualized. | | |Venous: The inferior vena cava is abnormal. The inferior vena cava was dilated, with | | |respiratory size variation less than 50%. | | |Pericardium: No pericardial effusion is seen. | | | | | |Report electronically signed by: [id number] Annette Martinez MD, PhD (11/24/2019, | | |8:55:30 AM) | | | | | | | | | | | | Final | | + +---- + + + | Procedure Note | + + | Interface, Cardiology Results - 11/24/2019 8:55 AM PDT [facility] Hello Agent | | [facility] [address] [place] [address] | | [place], [place] [address] Pt Name: HANK ALTMAN | | Study Date/Time 11/23/2019 / 6:54:37 PMMRN: [id number] [facility] | | recent prior: 11/22/2019Acc #: [id number] No. previous echos: 2DOB: | | 1965 54 years Heart Rate: 75 bpmHeight: 62.0 in Blood | | Pressure: 100/73 mm/HgWeight: 187.0 lb Gender: FBSA: | | 1.86 m | | Order ID: [id number] Study Location: 7ASonographer: Darlene | | SunnyriSonographer 2:Fellow: Kingsley Marcus Provider:Modalities Performed: | | Limited 2D.Study Quality: Good.Exam Indication: FELLOW STUDY, PEHistory: 54 y.o. woman | | admitted to the MICU for massive PE Patient history has been obtained from the EHR | | Transthoracic Echocardiographic | | Report+ + | | Final Impressions: | | | | 1. The LV function is | | normal. 2. RV cavity size is severely | | enlarged. RV global systolic function is severely reduced. | | 3. The aortic valve is trileaflet and mildly | | calcified. There is no significant aortic valve stenosis. | | 4. Compared to the most recent exam dated 11/22/2019, there | | are no significant changes of the LV function. RV is larger and RV | | dysfunction is more prominent. | | | | + + | | Description of Findings: Cardiac Rhythm: Uncertain.Left Ventricle: Visually estimated | | left ventricular ejection fraction is 65 - 70%. The interventricular septum is flattened | | in systole and diastole consistent with right ventricular pressure and volume overload. | | The LV diastolic filling pattern is normal. The LV function is normal.Left Ventricular | | Wall Motion: Left ventricular systolic thickening is normal in all segments.Right | | Ventricle: Right ventricular cavity size is severely enlarged. The RV global systolic | | function is severely reduced. Unable to calculate RVSP due to absence of tricuspid | | regurgitation.Aortic Valve: The aortic valve is trileaflet and mildly calcified. No | | indication of aortic valve regurgitation.Mitral Valve: Mild mitral annular | | calcification.Tricuspid Valve: The tricuspid valve is not well visualized.Pulmonic | | Valve: The pulmonic valve is not well visualized.Aorta: The ascending aorta is not well | | visualized.Venous: The inferior vena cava is abnormal. The inferior vena cava was | | dilated, with respiratory size variation less than 50%.Pericardium: No pericardial | | effusion is seen. Report electronically signed by: [id number] Annette Martinez MD, PhD | | (11/24/2019, 8:55:30 AM) Final | | | |+ + | | | | | |Description of Findings: | | | |Cardiac Rhythm: Uncertain. | |Left Ventricle: Visually estimated left ventricular ejection fraction is 65 - 70%. | |The interventricular septum is flattened in systole and diastole consistent with | |right ventricular pressure and volume overload. The LV diastolic filling pattern is | |normal. The LV function is normal. | |Left Ventricular Wall Motion: Left ventricular systolic thickening is normal in all | |segments. | |Right Ventricle: Right ventricular cavity size is severely enlarged. The RV global | |systolic function is severely reduced. Unable to calculate RVSP due to absence of | |tricuspid regurgitation. | |Aortic Valve: The aortic valve is trileaflet and mildly calcified. No indication of | |aortic valve regurgitation. | |Mitral Valve: Mild mitral annular calcification. | |Tricuspid Valve: The tricuspid valve is not well visualized. | |Pulmonic Valve: The pulmonic valve is not well visualized. | |Aorta: The ascending aorta is not well visualized. | |Venous: The inferior vena cava is abnormal. The inferior vena cava was dilated, with | |respiratory size variation less than 50%. | |Pericardium: No pericardial effusion is seen. | | | |Report electronically signed by: [id number] Annette Martinez MD, PhD (11/24/2019, | |8:55:30 AM) | | | | | | | | Final | + + + + + + + | Performing | Address | City/State/Zipcode | Phone Number | | Organization | | | | + + + + + | [facility] | [address] | [place], [place] | | | CARDIOLOGY | [address] | [phone] | | + + + + + X-RAY PORTABLE CHEST 1 VIEW (11/23/2019 6:29 PM PDT) + + | Specimen | + + | | + + + + + | Narrative | Performed At | + + + | EXAM: AR CHEST 1 VIEW HISTORY: Shortness of breath | [facility] | | COMPARISON: Radiograph 11/21/2019, FINDINGS: Cardiomediastinal | RADIOLOGY VOICE | | silhouette is unchanged. Redemonstration of extensive calcified | RECOGNITION 2 | | mediastinal lymph nodes related to treated Hodgkin's and prior | | | radiation. There is no focal consolidation. Lung volumes are low. | | | There is no pneumothorax, pleural effusion, or pulmonary edema. | | | Osseous structures are intact. IMPRESSION: Clear lungs. I | | | have personally reviewed the images and, if necessary, edited the | | | report. I agree with the report as now presented. Final | | | signature: Jah Gilmore MD 11/24/2019 9:59 AM Preliminary: | | | Omayra Azar MD Dictation initiated: Omayra Azar MD | | | 11/24/2019 8:13 AM | | + + + + + | Procedure Note | + + | Service Account, Radiant Res In Interface - 11/24/2019 10:00 AM PDT EXAM: AR CHEST 1 | | VIEW HISTORY: Shortness of breath COMPARISON: Radiograph 11/21/2019, FINDINGS: | | Cardiomediastinal silhouette is unchanged. Redemonstration of extensive calcified | | mediastinal lymph nodes related to treated Hodgkin's and prior radiation. There is no | | focal consolidation. Lung volumes are low. There is no pneumothorax, pleural effusion, | | or pulmonary edema. Osseous structures are intact. IMPRESSION: Clear lungs. I have | | personally reviewed the images and, if necessary, edited the report. I agree with the | | report as now presented. Final signature: Jah Gilmore MD 11/24/2019 9:59 AM | | Preliminary: Omayra Azar MD Dictation initiated: Omayra Azar MD 11/24/2019 | | 8:13 AM | | | |IMPRESSION: | | | |Clear lungs. | | | |I have personally reviewed the images and, if necessary, edited the report. I agree with th e report as now presented. | | | |Final signature: Jah Gilmore MD 11/24/2019 9:59 AM | |Preliminary: Omayra Azar MD | |Dictation initiated: Omayra Azar MD 11/24/2019 8:13 AM | + + + +---------+ + + | Performing | Address | City/State/Zipcode | Phone Number | | Organization | | | | + +---------+ + + | [facility] | | | | | VOICE RECOGNITION 2 | | | | + +---------+ + + CBC (HEMOGRAM) ONLY (11/23/2019 6:25 PM PDT) + + + + + + | Component | Value | Ref Range | Performed | Pathologist | | | | | At | Signature | + + + + + + | WHITE CELL | 8.41 | 3.50 - 10.80 | [facility] | | | COUNT | | K/cu mm | LABORATORY | | | | | | SERVICES, | | | | | | CORE | | + + + + + + | RED CELL | 4.00 | 4.00 - 5.20 | [facility] | | | COUNT | | M/cu mm | LABORATORY | | | | | | SERVICES, | | | | | | CORE | | + + + + + + | HEMOGLOBIN | 11.5 (L) | 12.0 - 16.0 | [facility] | | | | | g/dL | LABORATORY | | | | | | SERVICES, | | | | | | CORE | | + + + + + + | HEMATOCRIT | 35.3 (L) | 36.0 - 46.0 % | [facility] | | | | | | LABORATORY | | | | | | SERVICES, | | | | | | CORE | | + + + + + + | MCV | 88.3 | 80.0 - 100.0 fL | [facility] | | | | | | LABORATORY | | | | | | SERVICES, | | | | | | CORE | | + + + + + + | MCHC | 32.6 | 32.0 - 36.0 | [facility] | | | | | g/dL | LABORATORY | | | | | | SERVICES, | | | | | | CORE | | + + + + + + | RDW SD | 55.5 (H) | 35.1 - 46.3 fL | [facility] | | | | | | LABORATORY | | | | | | SERVICES, | | | | | | CORE | | + + + + + + | PLATELET | 262 | 150 - 400 K/cu | [facility] | | | COUNT | | mm | LABORATORY | | | | | | SERVICES, | | | | | | CORE | | + + + + + + | MPV | 8.6 (L) | 9.7 - 12.3 fL | [...] | 0.00 | 0.00 - 0.02 | [facility] | | | | | K/cu mm [...] | + + + + + | [facility] | [address] | [place] [address] | | | MICHELLE, CORE | [address] | | | + + + + + HEPARIN, EITHER STANDARD / LMW, BLOOD (11/23/2019 6:23 PM PDT) + +-------+ + + + | Component | Value | Ref Range | Performed | Pathologist | | | | | At | Signature | + +-------+ + + + | HEPARIN, | <0.10 | U/mL | [facility] | | | STD LMW | | | LABORATORY | | | | | | SERVICES, | | | | | | CORE | | + +-------+ + + + + + | Specimen | + + | Blood - Blood | | (substance) | + + + + + | Narrative | Performed At | + + + | Heparin, Either STD/LMW - Therapeutic Ranges: Heparin, | [facility] | | Unfractionated: 0.35 - 0.70 U/mL Enoxaparin, LMWH: 0.70 | LABORATORY | | - 1.20 U/mL Dalteparin, LMWH: 0.70 - 1.20 U/mL | SERVICES, CORE | | Tinzaparin, LMWH: Therapeutic range not established. | | | Preliminary studies suggest range | | | similar to dalteparin. Clinical | | | correlation required. | | | Heparin levels may be unreliable for: | | | Total bilirubin >28.8 mg/dL | | | Triglycerides >690 mg/dL | | | or Moderate to Gross Hemolysis | | + + + + + + + + | Performing | Address | City/State/Zipcode | Phone Number | | Organization | | | | + + + + + | [facility] | [address] | [place] [address] | | | SERVICES, CORE | [address] | | | + + + + + APTT (ACT. PART. THROMBO TIME) (11/23/2019 6:23 PM PDT) + + + + + + | Component | Value | Ref Range | Performed | Pathologist | | | | | At | Signature | + + + + + + | APTT | 25.2 (L) | 26.0 - 36.0 | [facility] | | | | | seconds | LABORATORY | | | | | | SERVICES, | | | | | | CORE | | + + + + + + + + | Specimen | + + | Blood - Blood | | (substance) | + + + + + | Narrative | Performed At | + + + | APTT values for monitoring heparin therapy may be affected by | [facility] | | specimens processed >1 hour after collection. APTT Therapeutic | LABORATORY | | Range: (75 - 120) sec Heparin | SERVICES, CORE | | levels of 0.35 - 0.7 U/mL | | + + + + + + + + | Performing | Address | City/State/Zipcode | Phone Number | | Organization | | | | + + + + + | [facility] | [address] | [place] [address] | | | SERVICES, CORE | [address] | | | + + + + + INR (11/23/2019 6:23 PM PDT) + +-------+ + + + | Component | Value | Ref Range | Performed | Pathologist | | | | | At | Signature | + +-------+ + + + | INR | 1.11 | 0.90 - 1.20 INR | [facility] | | | | | | LABORATORY | | | | | | SERVICES, | | | | | | CORE | | + +-------+ + + + + + | Specimen | + + | Blood - Blood | | (substance) | + + + + + | Narrative | Performed At | + + + | INR Therapeutic ranges for full anticoagulation: INR for Venous | [facility] | | Thromboembolism (2.0 - 3.0) INR INR for most | LABORATORY | | patients with mech. valves (2.5 - 3.5) INR | SERVICES, CORE | + + + + + + + + | Performing | Address | City/State/Zipcode | Phone Number | | Organization | | | | + + + + + | [facility] | [address] | [place] [address] | | | SERVICES, CORE | [address] | | | + + + + + TROPONIN I, PLASMA (11/23/2019 6:23 PM PDT) + +-------+ + + + | Component | Value | Ref Range | Performed | Pathologist | | | | | At | Signature | + +-------+ + + + | TROPONIN I | <0.02 | <0.80 ng/mL | [facility] | | | | | [...] | + + + + + | [facility] | [address] | [place] [address] | | | SERVICES, CORE | [address] | | | + + + + + COMPLETE METABOLIC SET (NA,K,CL,CO2,BUN,CREAT,GLUC,CA,AST,ALT,BILI TOTAL,ALK PHOS,ALB,PROT TOTAL) (11/23/2019 6:23 PM PDT) + + + + + + | Component | Value | Ref Range | Performed | Pathologist | | | | | At | Signature | + + + + + + | GLUCOSE, | 130 (H) | 70 - 99 mg/dL | [facility] | | | PLASMA | | | LABORATORY | | | (LAB) | | | SERVICES, | | | | | | CORE | | + + + + + + | BUN, PLASMA | 69 (H) | 6 - 20 mg/dL | [facility] | | | (LAB) | | | LABORATORY | | | | | | SERVICES, | | | | | | CORE | | + + + + + + | CREATININE | 2.76 (H) | 0.60 - 1.10 | [facility] | | | PLASMA | | mg/dL | LABORATORY | | | (LAB) | | | SERVICES, | | | | | | CORE | | + + + + + + | EGFR | 22 (L) | >60 mL/min | [facility] | | | - | | | LABORATORY | | | STATELESS | | | SERVICES, | | | | | | CORE | | + + + + + + | EGFR NON | 18 (L) | >60 mL/min | [facility] | | | -LISA | | | LABORATORY | | | RICAN | | | SERVICES, | | | | | | CORE | | + + + + + + | SODIUM, | 135 (L) | 136 - 145 | [facility] | | | PLASMA | | mmol/L | LABORATORY | | | (LAB) | | | SERVICES, | | | | | | CORE | | + + + + + + | POTASSIUM, | 5.9 (H) | 3.4 - 5.0 | [facility] | | | PLASMA | | mmol/L | LABORATORY | | | (LAB) | | | SERVICES, | | | | | | CORE | | + + + + + + | CHLORIDE, | 113 (H) | 97 - 108 mmol/L | [facility] | | | PLASMA | | | LABORATORY | | | (LAB) | | | SERVICES, | | | | | | CORE | | + + + + + + | TOTAL CO2, | 13 (L) | 21 - 32 mmol/L | [facility] | | | PLASMA | | | LABORATORY | | | (LAB) | | | SERVICES, | | | | | | CORE | | + + + + + + | CALCIUM, | 8.4 (L) | 8.6 - 10.2 | [facility] | | | PLASMA | | mg/dL | LABORATORY | | | (LAB) | | | SERVICES, | | | | | | CORE | | + + + + + + | CALCIUM(ALB | 10.2 | 8.6 - 10.2 | [facility] | | | CORRECTED) | | mg/dL | LABORATORY | | | | | | SERVICES, | | | | | | CORE | | + + + + + + | BILIRUBIN | 0.5 | 0.3 - 1.2 mg/dL | [facility] | | | TOTAL | | | LABORATORY | | | | | | SERVICES, | | | | | | CORE | | + + + + + + | TOTAL | 5.7 (L) | 6.4 - 8.2 g/dL | [facility] | | | PROTEIN, | | | LABORATORY | | | PLASMA | | | SERVICES, | | | (LAB) | | | CORE | | + + + + + + | ALBUMIN, | 1.8 (L) | 3.5 - 4.7 g/dL | [facility] | | | PLASMA | | | LABORATORY | | | (LAB) | | | SERVICES, | | | | | | CORE | | + + + + + + | ALK PHOS | 100 (H) | 42 - 98 U/L | [facility] | | | | | | LABORATORY | | | | | | SERVICES, | | | | | | CORE | | + + + + + + | AST(SGOT) | 63 (H) | <=41 U/L | [facility] | | | | | | LABORATORY | | | | | | SERVICES, | | | | | | CORE | | + + + + + + | ALT (SGPT) | 29 | <=60 U/L | [facility] | | | | | | LABORATORY | | | | | | SERVICES, | | | | | | CORE | | + + + + + + | ANION GAP | 9 | 4 - 11 mmol/L | [facility] | | | | | | LABORATORY | | | | | | SERVICES, | | | | | | CORE | | + + + + + + | ANION | 14 (H) | 4 - 11 mmol/L | [facility] | | | GAP(ALB | | | LABORATORY | | | CORRECTED) | | | SERVICES, | | | | | | CORE | | + + + + + + | POTASSIUM | Sl Hemo | | [facility] | | | CMNT | | | LABORATORY | | | | | | SERVICES, | | | | | | CORE | | + + + + + + | AST CMNT | Sl Hemo | | [facility] | | | | | | LABORATORY | | | | | | SERVICES, | | | | | | CORE | | + + + + + + | BUN/CREATIN | 25 | 8 - 25 | [facility] | | | INE RATIO | | | LABORATORY | | | | | | SERVICES, | | | | | | CORE | | + + + + + + | GLOBULIN | 3.9 (H) | 2.3 - 3.5 gm/dL | [facility] | | | LVL | | | LABORATORY | | | | | | SERVICES, | | | | | | CORE | | + + + + + + | ALBUMIN/NICOLETTE | 0.5 (L) | 0.7 - 2.8 | [facility] [...] Performed At | + + + | Sample hemolyzed. Results for LD, K, and AST may be inaccurate. | [facility] | | Refer to comment under test. GFR is estimated using the MDRD | LABORATORY | | equation recommended by the National Kidney Disease Education Program. | SERVICES, CORE | | Estimated GFR Interpretive Information: <60 mL/min/1.73 sq m | | | Chronic Kidney Disease <15 mL/min/1.73 sq m | | | Kidney Failure Estimated GFR greater than 60 | | | mL/min/1.73 sq m is of limited clinical value. The MDRD equation | | | is not valid in the following situations: - Patients under 18 years | | | of age - Severe malnutrition or obesity - Vegetarian diet - Rapidly | | | changing kidney function - Amputees, paraplegics, or other | | | muscle-wasting diseases | | + + + + + + + + | Performing | Address | City/State/Zipcode | Phone Number | | Organization | | | | + + + + + | [facility] | [address] | [place] [address] | | | SERVICES, CORE | [address] | | | + + + + + NT-PRO BNP (11/23/2019 6:23 PM PDT) + + + + + + | Component | Value | Ref Range | Performed | Pathologist | | | | | At | Signature | + + + + + + | NT-PRO BNP | 9,366 (H) | <125 pg/mL | [facility] | | | | | [...] | + + + + + | [facility] | [address] | [place] [address] | | | SERVICES, CORE | [address] | | | + + + + + 12 LEAD ECG (11/23/2019 6:08 PM PDT) + + + + + + | Component | Value | Ref Range | Performed | Pathologist | | | | | At | Signature | + + + + + + | VENTRICULAR | 106 | bpm | [facility] | | | RATE | | | OF | | | | | | CARDIOLOGY | | + + + + + + | ATRIAL RATE | 114 | ms | [facility] | | | | | | OF | | | | | | CARDIOLOGY | | + + + + + + | P-R | 107 | ms | [facility] | | | INTERVAL | | | OF | | | | | | CARDIOLOGY | | + + + + + + | P AXIS | -89 | deg | [facility] | | | | | | OF | | | | | | CARDIOLOGY | | + + + + + + | QRS | 154 | ms | [facility] | | | DURATION | | | OF | | | | | | CARDIOLOGY | | + + + + + + | QT | 344 | ms | [facility] | | | | | | OF | | | | | | CARDIOLOGY | | + + + + + + | QTC-CHRISTINE | 457 | ms | [facility] | | | | | | OF | | | | | | CARDIOLOGY | | + + + + + + | R AXIS | 100 | deg | [facility] | | | | | | OF | | | | | | CARDIOLOGY | | + + + + + + | T AXIS | 4 | deg | [facility] | | | | | | OF | | | | | | CARDIOLOGY | | + + + + + + | ECG | Atrial fibrillation | | [facility] | | | IMPRESSION | | | OF | | | | | | CARDIOLOGY | | + + + + + + | ECG | Right bundle branch | | [facility] | | | IMPRESSION | block | | OF | | | | | | CARDIOLOGY | | + + + + + + | 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, old- | | [facility] | | | IMPRESSION | ABNORMAL ECG - | | OF | | | | | | CARDIOLOGY | | + + + + + + | ECG | Electronically signed | | [facility] | | | IMPRESSION | by: JULIO LONG | | OF | | | | 11-23-2019 18:46:14 | | CARDIOLOGY | | + + + + + + + + | Specimen | + + | | + + + + + | Narrative | Performed At | + + + | | | + + + + + + + + | Performing | Address | City/State/Zipcode | Phone Number | | Organization | | | | + + + + + | [facility] | [address] | [place], [place] | | | CARDIOLOGY | [address] | [phone] | | + + + + + BASIC METABOLIC SET (NA, K, CL, TCO2, BUN, CR, GLU, CA) (11/23/2019 4:01 PM PDT) + + + + + + | Component | Value | Ref Range | Performed | Pathologist | | | | | At | Signature | + + + + + + | GLUCOSE, | 105 (H) | 70 - 99 mg/dL | [facility] | | | PLASMA | | | LABORATORY | | | (LAB) | | | SERVICES, | | | | | | CORE | | + + + + + + | BUN, PLASMA | 65 (H) | 6 - 20 mg/dL | [facility] | | | (LAB) | | | LABORATORY | | | | | | SERVICES, | | | | | | CORE | | + + + + + + | CREATININE | 2.78 (H) | 0.60 - 1.10 | [facility] | | | PLASMA | | mg/dL | LABORATORY | | | (LAB) | | | SERVICES, | | | | | | CORE | | + + + + + + | EGFR | 21 (L) | >60 mL/min | [facility] | | | - | | | LABORATORY | | | STATELESS | | | SERVICES, | | | | | | CORE | | + + + + + + | EGFR NON | 18 (L) | >60 mL/min | [facility] | | | -LISA | | | LABORATORY | | | RICAN | | | SERVICES, | | | | | | CORE | | + + + + + + | SODIUM, | 137 | 136 - 145 | [facility] | | | PLASMA | | mmol/L | LABORATORY | | | (LAB) | | | SERVICES, | | | | | | CORE | | + + + + + + | POTASSIUM, | 5.4 (H) | 3.4 - 5.0 | [facility] | | | PLASMA | | mmol/L | LABORATORY | | | (LAB) | | | SERVICES, | | | | | | CORE | | + + + + + + | CHLORIDE, | 114 (H) | 97 - 108 mmol/L | [facility] | | | PLASMA | | | LABORATORY | | | (LAB) | | | SERVICES, | | | | | | CORE | | + + + + + + | TOTAL CO2, | 16 (L) | 21 - 32 mmol/L | [facility] | | | PLASMA | | | LABORATORY | | | (LAB) | | | SERVICES, | | | | | | CORE | | + + + + + + | CALCIUM, | 8.6 | 8.6 - 10.2 | [facility] | | | PLASMA | | mg/dL | LABORATORY | | | (LAB) | | | SERVICES, | | | | | | CORE | | + + + + + + | ANION GAP | 7 | 4 - 11 mmol/L | [facility] | | | | | | LABORATORY | | | | | | SERVICES, | | | | | | CORE | | + + + + + + | POTASSIUM | No Hemo | | [facility] | | | CMNT | | | LABORATORY | | | | | | SERVICES, | | | | | | CORE | | + + + + + + | BUN/CREATIN | 23 | 8 - 25 | [facility] | [...] MDRD equation recommended by the National | [facility] | | Kidney Disease Education Program. Estimated GFR Interpretive | LABORATORY | | Information: <60 mL/min/1.73 sq m Chronic Kidney | SERVICES, CORE | | Disease <15 mL/min/1.73 sq m Kidney Failure | | | Estimated GFR greater than 60 mL/min/1.73 sq m is of limited clinical | | | value. The MDRD equation is not valid in the following situations: | | | - Patients under 18 years [...] | + + + + + | [facility] | [address] | [place] [id number] | | | SERVICES, [facility] | [address] | | | + + + + + RENIN, PLASMA (11/23/2019 9:46 AM PDT) + + + + + + | Component | Value | Ref Range | Performed | Pathologist | | | | | At | Signature | + + + + + + | RENIN | 22.4Comment: | ng/mL/hr | [facility] | | | PLASMA | INTERPRETIVE | | REG UNIV | | | | INFORMATION: Renin | | PTH - INTFC | | | | Activity Adult, Normal | | | | | | sodium diet: Supine | | | | | | ................. | | | | | | 0.2-1.6 ng/mL/hr | | | | | | Upright | | | | | | ................ 0.5-4.0 | | | | | | ng/mL/hr Children, | | | | | | Normal sodium diet, | | | | | | Supine: [place] (1-7 | | | | | | days) ..... 2.0-35.0 | | | | | | ng/mL/hr Cord blood | | | | | | ............. 4.0-32.0 | | | | | | ng/mL/hr 1-12 mos | | | | | | ............... 2.4-37.0 | | | | | | ng/mL/hr 13 mos-3 yrs | | | | | | ........... 1.7-11.2 | | | | | | ng/mL/hr 4-5 yrs | | | | | | ................ 1.0- | | | | | | 6.5 ng/mL/hr 6-10 yrs | | | | | | ............... 0.5- 5.9 | | | | | | ng/mL/hr 11-15 yrs | | | | | | .............. 0.5- 3.3 | | | | | | ng/mL/hr Children, | | | | | | normal sodium diet, | | | | | | Upright: 0-3 yrs | | | | | | ................ Not | | | | | | Available 4-5 yrs | | | | | | ................ Less | | | | | | than or equal to 15 | | | | | | ng/mL/hr 6-10 yrs | | | | | | ............... Less | | | | | | than or equal to 17 | | | | | | ng/mL/hr 11-15 yrs | | | | | | .............. Less than | | | | | | or equal to 16 ng/mL/hr | | | | | | Plasma renin activity | | | | | | measures enzyme ability | | | | | | to convert | | | | | | angiotensinogen to | | | | | | angiotensin I and is | | | | | | limited by the | | | | | | availability of | | | | | | angiotensinogen. Plasma | | | | | | renin activity is not an | | | | | | accurate indicator of | | | | | | enzyme activity when | | | | | | angiotensinogen is | | | | | | decreased. See | | | | | | Compliance Statement D: | | | | | | [email or web address] | | | | | | med by [facility] | | | | | | Formerly [facility],[address] [place] [address] | | | | | | [place] [address] | | | | | | [phone] | | | | | | [facility] center[facility]is MD, | | | | | | Lab. Director | | | | + + + + + + + + | Specimen | + + | Blood - Blood | | (substance) | + + + + + + + | Performing | Address | City/State/Zipcode | Phone Number | | Organization | | | | + + + + + | [facility] | [address] | [place], [place] | | | UNIV PTH - INTFC | | [id number] | | + + + + + ALDOSTERONE, SERUM (11/23/2019 9:46 AM PDT) + + + + + + | Component | Value | Ref Range | Performed | Pathologist | | | | | At | Signature | + + + + + + | ALDOSTERONE | 183.0Comment: | ng/dL | [facility] | | | SERUM | INTERPRETIVE | | REG UNIV | | | | INFORMATION: | | PTH - INTFC | | | | Aldosterone, Serum | | | | | | Reference intervals for | | | | | | age 15 and older: | | | | | | Upright ......... 4.0 | | | | | | - 31.0 ng/dL Supine | | | | | | .......... Less than | | | | | | or equal to 16.0 ng/dL | | | | | | Unspecified ..... Less | | | | | | than or equal to 31.0 | | | | | | ng/dL Normal serum | | | | | | levels of aldosterone | | | | | | are dependent on the | | | | | | sodium intake and | | | | | | whether the patient is | | | | | | upright or supine. High | | | | | | sodium intake will tend | | | | | | to suppress serum | | | | | | aldosterone, whereas low | | | | | | sodium intake will | | | | | | elevate serum | | | | | | aldosterone. The | | | | | | reference intervals for | | | | | | serum aldosterone are | | | | | | based on normal sodium | | | | | | intake. Access complete | | | | | | set of age- and/or | | | | | | gender-specific | | | | | | reference intervals for | | | | | | this test in the [facility] | | | | | | Laboratory Test | | | | | | Directory | | | | | | ([email or web address]).Performed | | | | | | by [id number] | | | | | | [place], [place] | | | | | | [id number] | | | | | | [phone].[employer]. | | | | | | [facility], Denis Pitts MD, | | | | | | Lab. Director | | | | + + + + + + + + | Specimen | + + | Blood - Blood | | (substance) | + + + + + + + | Performing | Address | City/State/Zipcode | Phone Number | | Organization | | | | + + + + + | [facility] | [address] | [place], [place] | | | [facility] | | [id number] | | + + + + + CBC AND AUTO DIFF (11/23/2019 4:46 AM PDT) + + + + + + | Component | Value | Ref Range | Performed | Pathologist | | | | | At | Signature | + + + + + + | WHITE CELL | 4.86 | 3.50 - 10.80 | [facility] | | | COUNT | | K/cu mm | LABORATORY | | | | | | SERVICES, | | | | | | CORE | | + + + + + + | RED CELL | 3.57 (L) | 4.00 - 5.20 | [facility] | | | COUNT | | M/cu mm | LABORATORY | | | | | | SERVICES, | | | | | | CORE | | + + + + + + | HEMOGLOBIN | 10.1 (L) | 12.0 - 16.0 | [facility] | | | | | g/dL | LABORATORY | | | | | | SERVICES, | | | | | | CORE | | + + + + + + | HEMATOCRIT | 31.2 (L) | 36.0 - 46.0 % | [facility] | | | | | | LABORATORY | | | | | | SERVICES, | | | | | | CORE | | + + + + + + | MCV | 87.4 | 80.0 - 100.0 fL | [facility] | | | | | | LABORATORY | | | | | | SERVICES, | | | | | | CORE | | + + + + + + | MCHC | 32.4 | 32.0 - 36.0 | [facility] | | | | | g/dL | LABORATORY | | | | | | SERVICES, | | | | | | CORE | | + + + + + + | RDW SD | 54.5 (H) | 35.1 - 46.3 fL | [facility] | | | | | | LABORATORY | | | | | | SERVICES, | | | | | | CORE | | + + + + + + | PLATELET | 187 | 150 - 400 K/cu | [facility] | | | COUNT | | mm | LABORATORY | | | | | | SERVICES, | | | | | | CORE | | + + + + + + | MPV | 8.4 (L) | 9.7 - 12.3 fL | [...] + + + + | NEUTROPHIL | 82.7 (H) | 50.0 - 70.0 % | [facility] | | | % | | | LABORATORY | | | | | | SERVICES, | | | | | | CORE | | + + + + + + | LYMPHOCYTE | 10.3 (L) | 18.0 - 42.0 % | [facility] | | | % | | | LABORATORY | | | | | | SERVICES, | | | | | | CORE | | + + + + + + | MONOCYTE % | 6.4 | 3.5 - 9.0 % | [facility] | | | | | | LABORATORY | | | | | | SERVICES, | | | | | | CORE | | + + + + + + | EOS % | 0.0 (L) | 1.0 - 3.0 % | [facility] | | | | | | LABORATORY | | | | | | SERVICES, | | | | | | CORE | | + + + + + + | BASO % | 0.2 | 0.0 - 2.0 % | [facility] [...] + + + + | NEUTROPHIL | 4.02 | 1.80 - 7.70 | [facility] | | | # | | K/cu mm | LABORATORY | | | | | | SERVICES, | | | | | | CORE | | + + + + + + | LYMPHOCYTE | 0.50 (L) | 1.00 - 4.80 | [facility] | | | # | | K/cu mm | LABORATORY | | | | | | SERVICES, | | | | | | CORE | | + + + + + + | MONOCYTE # | 0.31 | 0.10 - 0.90 | [facility] | | | | | K/cu mm | LABORATORY | | | | | | SERVICES, | | | | | | CORE | | + + + + + + | EOS # | 0.00 | 0.00 - 0.50 | [facility] | | | | | K/cu mm | LABORATORY | | | | | | SERVICES, | | | | | | CORE | | + + + + + + | BASO # | 0.01 | 0.00 - 0.10 | [facility] | | | | | K/cu mm | LABORATORY | | | | | | SERVICES, | | | | | | CORE | | + + + + + + | IG# | 0.02 | 0.00 - 0.10 | [facility] | [...] the IG count. Bands are | SERVICES, CORE | | included in the neutrophil count. | | + + + + + + + + | Performing | Address | City/State/Zipcode | Phone Number | | Organization | | | | + + + + + | [facility] [employer] | [address] | [place] [address] | | | SERVICES, CORE | [address] | | | + + + + + BASIC METABOLIC SET (NA, K, CL, TCO2, BUN, CR, GLU, CA) (11/23/2019 4:46 AM PDT) + + + + + + | Component | Value | Ref Range | Performed | Pathologist | | | | | At | Signature | + + + + + + | GLUCOSE, | 104 (H) | 70 - 99 mg/dL | [facility] | | | PLASMA | | | LABORATORY | | | (LAB) | | | SERVICES, | | | | | | CORE | | + + + + + + | BUN, PLASMA | 64 (H) | 6 - 20 mg/dL | [facility] | | | (LAB) | | | LABORATORY | | | | | | SERVICES, | | | | | | CORE | | + + + + + + | CREATININE | 2.59 (H) | 0.60 - 1.10 | [facility] | | | PLASMA | | mg/dL | LABORATORY | | | (LAB) | | | SERVICES, | | | | | | CORE | | + + + + + + | EGFR | 23 (L) | >60 mL/min | [facility] | | | - | | | LABORATORY | | | STATELESS | | | SERVICES, | | | | | | CORE | | + + + + + + | EGFR NON | 19 (L) | >60 mL/min | [facility] | | | -LISA | | | LABORATORY | | | RICAN | | | SERVICES, | | | | | | CORE | | + + + + + + | SODIUM, | 136 | 136 - 145 | [facility] | | | PLASMA | | mmol/L | LABORATORY | | | (LAB) | | | SERVICES, | | | | | | CORE | | + + + + + + | POTASSIUM, | 5.6 (H) | 3.4 - 5.0 | [facility] | | | PLASMA | | mmol/L | LABORATORY | | | (LAB) | | | SERVICES, | | | | | | CORE | | + + + + + + | CHLORIDE, | 114 (H) | 97 - 108 mmol/L | [facility] | | | PLASMA | | | LABORATORY | | | (LAB) | | | SERVICES, | | | | | | CORE | | + + + + + + | TOTAL CO2, | 14 (L) | 21 - 32 mmol/L | [facility] | | | PLASMA | | | LABORATORY | | | (LAB) | | | SERVICES, | | | | | | CORE | | + + + + + + | CALCIUM, | 8.5 (L) | 8.6 - 10.2 | [facility] | | | PLASMA | | mg/dL | LABORATORY | | | (LAB) | | | SERVICES, | | | | | | CORE | | + + + + + + | ANION GAP | 8 | 4 - 11 mmol/L | [facility] | | | | | | LABORATORY | | | | | | SERVICES, | | | | | | CORE | | + + + + + + | POTASSIUM | No Hemo | | [facility] | | | CMNT | | | LABORATORY | | | | | | SERVICES, | | | | | | CORE | | + + + + + + | BUN/CREATIN | 25 | 8 - 25 | [facility] | [...] MDRD equation recommended by the National | [facility] | | Kidney Disease Education Program. Estimated GFR Interpretive | LABORATORY | | Information: <60 mL/min/1.73 sq m Chronic Kidney | SERVICES, CORE | | Disease <15 mL/min/1.73 sq m Kidney Failure | | | Estimated GFR greater than 60 mL/min/1.73 sq m is of limited clinical | | | value. The MDRD equation is not valid in the following situations: | | | - Patients under 18 years [...] | + + + + + | [facility] | [address] | [place] [address] | | | SERVICES, CORE | [address] | | | + + + + + TSH (11/23/2019 4:46 AM PDT) + +-------+ + + + | Component | Value | Ref Range | Performed | Pathologist | | | | | At | Signature | + +-------+ + + + | TSH | 3.44 | 0.50 - 5.07 | [facility] | [...] | + + + + + | [facility] | [address] | [place] [address] | | | SERVICES, CORE | [address] | | | + + + + + FREE T4 (11/23/2019 4:46 AM PDT) + +---------+ + + + | Component | Value | Ref Range | Performed | Pathologist | | | | | At | Signature | + +---------+ + + + | FREE T4 | 2.7 (H) | 0.6 - 1.2 ng/dL | [facility] | | | | | | LABORATORY | | | | | | SERVICES, | | | | | | CORE | | + +---------+ + + + + + | Specimen | + + | Blood - Blood | | (substance) | + + + + + + + | Performing | Address | City/State/Zipcode | Phone Number | | Organization | | | | + + + + + | [facility] | [address] | [place] [address] | | | SERVICES, CORE | [address] | | | + + + + + BASIC METABOLIC SET (NA, K, CL, TCO2, BUN, CR, GLU, CA) (11/23/2019 1:54 AM PDT) + + + + + + | Component | Value | Ref Range | Performed | Pathologist | | | | | At | Signature | + + + + + + | GLUCOSE, | 112 (H) | 70 - 99 mg/dL | [facility] | | | PLASMA | | | LABORATORY | | | (LAB) | | | SERVICES, | | | | | | CORE | | + + + + + + | BUN, PLASMA | 69 (H) | 6 - 20 mg/dL | [facility] | | | (LAB) | | | LABORATORY | | | | | | SERVICES, | | | | | | CORE | | + + + + + + | CREATININE | 2.76 (H) | 0.60 - 1.10 | [facility] | | | PLASMA | | mg/dL | LABORATORY | | | (LAB) | | | SERVICES, | | | | | | CORE | | + + + + + + | EGFR | 22 (L) | >60 mL/min | [facility] | | | - | | | LABORATORY | | | STATELESS | | | SERVICES, | | | | | | CORE | | + + + + + + | EGFR NON | 18 (L) | >60 mL/min | [facility] | | | -LISA | | | LABORATORY | | | RICAN | | | SERVICES, | | | | | | CORE | | + + + + + + | SODIUM, | 137 | 136 - 145 | [facility] | | | PLASMA | | mmol/L | LABORATORY | | | (LAB) | | | SERVICES, | | | | | | CORE | | + + + + + + | POTASSIUM, | 5.5 (H) | 3.4 - 5.0 | [facility] | | | PLASMA | | mmol/L | LABORATORY | | | (LAB) | | | SERVICES, | | | | | | CORE | | + + + + + + | CHLORIDE, | 114 (H) | 97 - 108 mmol/L | [facility] | | | PLASMA | | | LABORATORY | | | (LAB) | | | SERVICES, | | | | | | CORE | | + + + + + + | TOTAL CO2, | 14 (L) | 21 - 32 mmol/L | [facility] | | | PLASMA | | | LABORATORY | | | (LAB) | | | SERVICES, | | | | | | CORE | | + + + + + + | CALCIUM, | 8.4 (L) | 8.6 - 10.2 | [facility] | | | PLASMA | | mg/dL | LABORATORY | | | (LAB) | | | SERVICES, | | | | | | CORE | | + + + + + + | ANION GAP | 9 | 4 - 11 mmol/L | [facility] | | | | | | LABORATORY | | | | | | SERVICES, | | | | | | CORE | | + + + + + + | POTASSIUM | No Hemo | | [facility] | | | CMNT | | | LABORATORY | | | | | | SERVICES, | | | | | | CORE | | + + + + + + | BUN/CREATIN | 25 | 8 - 25 | [facility] | [...] MDRD equation recommended by the National | [facility] | | Kidney Disease Education Program. Estimated GFR Interpretive | LABORATORY | | Information: <60 mL/min/1.73 sq m Chronic Kidney | SERVICES, CORE | | Disease <15 mL/min/1.73 sq m Kidney Failure | | | Estimated GFR greater than 60 mL/min/1.73 sq m is of limited clinical | | | value. The MDRD equation is not valid in the following situations: | | | - Patients under 18 years [...] | + + + + + | [facility] | [address] | [place] [address] | | | SERVICES, CORE | [address] | | | + + + + + CARDIOLOGY (11/23/2019 12:00 AM PDT) + + + | Narrative | Performed At | + + + | | | + + + CARDIOLOGY (11/23/2019 12:00 AM PDT) + + + | Narrative | Performed At | + + + | | | + + + CARDIOLOGY (11/23/2019 12:00 AM PDT) + + + | Narrative | Performed At | + + + | | | + + + CARDIOLOGY (11/23/2019 12:00 AM PDT) + + + | Narrative | Performed At | + + + | | | + + + CARDIOLOGY (11/23/2019 12:00 AM PDT) + + + | Narrative | Performed At | + + + | | | + + + POTASSIUM, PLASMA (11/22/2019 9:40 PM PDT) + +---------+ + + + | Component | Value | Ref Range | Performed | Pathologist | | | | | At | Signature | + +---------+ + + + | POTASSIUM, | 5.7 (H) | 3.4 - 5.0 | [facility] | | | PLASMA | | mmol/L | LABORATORY | | | (LAB) | | | SERVICES, | | | | | | CORE | | + +---------+ + + + | POTASSIUM | No Hemo | | [facility] | | | CMNT | | | LABORATORY | | | | | | SERVICES, | | | | | | CORE | | + +---------+ + + + + + | Specimen | + + | Blood - Blood | | (substance) | + + + + + + + | Performing | Address | City/State/Zipcode | Phone Number | | Organization | | | | + + + + + | [facility] | [address] | [place] [address] | | | SERVICES, CORE | [address] | | | + + + + + POTASSIUM, PLASMA (11/22/2019 6:14 PM PDT) + +---------+ + + + | Component | Value | Ref Range | Performed | Pathologist | | | | | At | Signature | + +---------+ + + + | POTASSIUM, | 5.4 (H) | 3.4 - 5.0 | [facility] | | | PLASMA | | mmol/L | LABORATORY | | | (LAB) | | | SERVICES, | | | | | | CORE | | + +---------+ + + + | POTASSIUM | No Hemo | | [facility] | | | CMNT | | | LABORATORY | | | | | | SERVICES, | | | | | | CORE | | + +---------+ + + + + + | Specimen | + + | Blood - Blood | | (substance) | + + + + + + + | Performing | Address | City/State/Zipcode | Phone Number | | Organization | | | | + + + + + | [facility] | [address] | [place] [address] | | | SERVICES, CORE | [address] | | | + + + + + CAPILLARY BLOOD GLUCOSE (NO CHG), POC (11/22/2019 5:45 PM PDT) + +-------+ + + + | Component | Value | Ref Range | Performed | Pathologist | | | | | At | Signature | + +-------+ + + + | BLOOD | 78 | 70 - 99 mg/dL | [facility] | | | GLUCOSE, | | | [facility] | | | POC | | | [facility] | | | | | | OF CARE | | | | | | TESTS | | + +-------+ + + + + + | Specimen | + + | Blood | + + + + + + + | Performing | Address | City/State/Zipcode | Phone Number | | Organization | | | | + + + + + | [facility] | [address] | [place], [place] | | | [facility] | [address] | [address] | | | TESTS | | | | + + + + + CAPILLARY BLOOD GLUCOSE (NO CHG), POC (11/22/2019 5:14 PM PDT) + +---------+ + + + | Component | Value | Ref Range | Performed | Pathologist | | | | | At | Signature | + +---------+ + + + | BLOOD | 118 (H) | 70 - 99 mg/dL | [facility] - | | | GLUCOSE, | | | [facility] | | | POC | | | [facility] | | | | | | OF CARE | | | | | | TESTS | | + +---------+ + + + + + | Specimen | + + | Blood | + + + + + + + | Performing | Address | City/State/Zipcode | Phone Number | | Organization | | | | + + + + + | [facility] | [address] | [place], [place] | | | [facility] | [address] | [address] | | | TESTS | | | | + + + + + 12 LEAD ECG (11/22/2019 3:54 PM PDT) + + + + + + | Component | Value | Ref Range | Performed | Pathologist | | | | | At | Signature | + + + + + + | VENTRICULAR | 104 | bpm | [facility] | | | RATE | | | OF | | | | | | CARDIOLOGY | | + + + + + + | ATRIAL RATE | 104 | ms | [facility] | | | | | | OF | | | | | | CARDIOLOGY | | + + + + + + | P-R | 187 | ms | [facility] | | | INTERVAL | | | OF | | | | | | CARDIOLOGY | | + + + + + + | P AXIS | 36 | deg | [facility] | | | | | | OF | | | | | | CARDIOLOGY | | + + + + + + | QRS | 99 | ms | [facility] | | | DURATION | | | OF | | | | | | CARDIOLOGY | | + + + + + + | QT | 327 | ms | [facility] | | | | | | OF | | | | | | CARDIOLOGY | | + + + + + + | QTC-BAZETT | 431 | ms | [facility] | | | | | | OF | | | | | | CARDIOLOGY | | + + + + + + | R AXIS | -90 | deg | [facility] | | | | | | OF | | | | | | CARDIOLOGY | | + + + + + + | T AXIS | 6 | deg | [facility] | | | | | | OF | | | | | | CARDIOLOGY | | + + + + + + | ECG | Sinus tachycardia | | [facility] | | | IMPRESSION | | | OF | | | | | | CARDIOLOGY | | + + + + + + | ECG | Consider Inferior | | [facility] | | | IMPRESSION | infarct, old- ABNORMAL | | OF | | | | ECG - | | CARDIOLOGY | | + + + + + + | ECG | Electronically signed | | [facility] | | | IMPRESSION | by: JULIO LONG | | OF | | | | 11-23-2019 17:13:12 | | CARDIOLOGY | | + + + + + + + + | Specimen | + + | | + + + + + | Narrative | Performed At | + + + | | | + + + + + + + + | Performing | Address | City/State/Zipcode | Phone Number | | Organization | | | | + + + + + | [facility] | [address] | [place], [place] | | | CARDIOLOGY | [address] | [address] | | + + + + + BASIC METABOLIC SET (NA, K, CL, TCO2, BUN, CR, GLU, CA) (11/22/2019 2:23 PM PDT) + + + + + + | Component | Value | Ref Range | Performed | Pathologist | | | | | At | Signature | + + + + + + | GLUCOSE, | 114 (H) | 70 - 99 mg/dL | [facility] | | | PLASMA | | | LABORATORY | | | (LAB) | | | SERVICES, | | | | | | CORE | | + + + + + + | BUN, PLASMA | 75 (H) | 6 - 20 mg/dL | [facility] | | | (LAB) | | | LABORATORY | | | | | | SERVICES, | | | | | | CORE | | + + + + + + | CREATININE | 2.89 (H) | 0.60 - 1.10 | [facility] | | | PLASMA | | mg/dL | LABORATORY | | | (LAB) | | | SERVICES, | | | | | | CORE | | + + + + + + | EGFR | 20 (L) | >60 mL/min | [facility] | | | - | | | LABORATORY | | | STATELESS | | | SERVICES, | | | | | | CORE | | + + + + + + | EGFR NON | 17 (L) | >60 mL/min | [facility] | | | -LISA | | | LABORATORY | | | RICAN | | | SERVICES, | | | | | | CORE | | + + + + + + | SODIUM, | 135 (L) | 136 - 145 | [facility] | | | PLASMA | | mmol/L | LABORATORY | | | (LAB) | | | SERVICES, | | | | | | CORE | | + + + + + + | POTASSIUM, | 6.0 (HH) | 3.4 - 5.0 | [facility] | | | PLASMA | | mmol/L | LABORATORY | | | (LAB) | | | SERVICES, | | | | | | CORE | | + + + + + + | CHLORIDE, | 111 (H) | 97 - 108 mmol/L | [facility] | | | PLASMA | | | LABORATORY | | | (LAB) | | | SERVICES, | | | | | | CORE | | + + + + + + | TOTAL CO2, | 15 (L) | 21 - 32 mmol/L | [facility] | | | PLASMA | | | LABORATORY | | | (LAB) | | | SERVICES, | | | | | | CORE | | + + + + + + | CALCIUM, | 8.7 | 8.6 - 10.2 | [facility] | | | PLASMA | | mg/dL | LABORATORY | | | (LAB) | | | SERVICES, | | | | | | CORE | | + + + + + + | ANION GAP | 9 | 4 - 11 mmol/L | [facility] | | | | | | LABORATORY | | | | | | SERVICES, | | | | | | CORE | | + + + + + + | POTASSIUM | No Hemo | | [facility] | | | CMNT | | | LABORATORY | | | | | | SERVICES, | | | | | | CORE | | + + + + + + | BUN/CREATIN | 26 (H) | 8 - 25 | [facility] | [...] MDRD equation recommended by the National | [facility] | | Kidney Disease Education Program. Estimated GFR Interpretive | LABORATORY | | Information: <60 mL/min/1.73 sq m Chronic Kidney | SERVICES, CORE | | Disease <15 mL/min/1.73 sq m Kidney Failure | | | Estimated GFR greater than 60 mL/min/1.73 sq m is of limited clinical | | | value. The MDRD equation is not valid in the following situations: | | | - Patients under 18 years [...] | + + + + + | [facility] | [address] | [place] [address] | | | SERVICES, CORE | [address] | | | + + + + + BASIC METABOLIC SET (NA, K, CL, TCO2, BUN, CR, GLU, CA) (11/22/2019 10:42 AM PDT) + + + + + + | Component | Value | Ref Range | Performed | Pathologist | | | | | At | Signature | + + + + + + | GLUCOSE, | 108 (H) | 70 - 99 mg/dL | [facility] | | | PLASMA | | | LABORATORY | | | (LAB) | | | SERVICES, | | | | | | CORE | | + + + + + + | BUN, PLASMA | 76 (H) | 6 - 20 mg/dL | [facility] | | | (LAB) | | | LABORATORY | | | | | | SERVICES, | | | | | | CORE | | + + + + + + | CREATININE | 2.92 (H) | 0.60 - 1.10 | [facility] | | | PLASMA | | mg/dL | LABORATORY | | | (LAB) | | | SERVICES, | | | | | | CORE | | + + + + + + | EGFR | 20 (L) | >60 mL/min | [facility] | | | - | | | LABORATORY | | | STATELESS | | | SERVICES, | | | | | | CORE | | + + + + + + | EGFR NON | 17 (L) | >60 mL/min | [facility] | | | -LISA | | | LABORATORY | | | RICAN | | | SERVICES, | | | | | | CORE | | + + + + + + | SODIUM, | 136 | 136 - 145 | [facility] | | | PLASMA | | mmol/L | LABORATORY | | | (LAB) | | | SERVICES, | | | | | | CORE | | + + + + + + | POTASSIUM, | 5.6 (H) | 3.4 - 5.0 | [facility] | | | PLASMA | | mmol/L | LABORATORY | | | (LAB) | | | SERVICES, | | | | | | CORE | | + + + + + + | CHLORIDE, | 113 (H) | 97 - 108 mmol/L | [facility] | | | PLASMA | | | LABORATORY | | | (LAB) | | | SERVICES, | | | | | | CORE | | + + + + + + | TOTAL CO2, | 13 (L) | 21 - 32 mmol/L | [facility] | | | PLASMA | | | LABORATORY | | | (LAB) | | | SERVICES, | | | | | | CORE | | + + + + + + | CALCIUM, | 8.4 (L) | 8.6 - 10.2 | [facility] | | | PLASMA | | mg/dL | LABORATORY | | | (LAB) | | | SERVICES, | | | | | | CORE | | + + + + + + | ANION GAP | 10 | 4 - 11 mmol/L | [facility] | | | | | | LABORATORY | | | | | | SERVICES, | | | | | | CORE | | + + + + + + | POTASSIUM | Sl Hemo | | [facility] | | | CMNT | | | LABORATORY | | | | | | SERVICES, | | | | | | CORE | | + + + + + + | BUN/CREATIN | 26 (H) | 8 - 25 | [facility] | [...] Performed At | + + + | Sample hemolyzed. Results for LD, K, and AST may be inaccurate. | [facility] | | Refer to comment under test. GFR is estimated using the MDRD | LABORATORY | | equation recommended by the National Kidney Disease Education Program. | SERVICES, CORE | | Estimated GFR Interpretive Information: <60 mL/min/1.73 sq m | | | Chronic Kidney Disease <15 mL/min/1.73 sq m | | | Kidney Failure Estimated GFR greater than 60 | | | mL/min/1.73 sq m is of limited clinical value. The MDRD equation | | | is not valid in the following situations: - Patients under 18 years | | | of age - Severe malnutrition or obesity - Vegetarian diet - Rapidly | | | changing kidney function - Amputees, paraplegics, or other | | | muscle-wasting diseases | | + + + + + + + + | Performing | Address | City/State/Zipcode | Phone Number | | Organization | | | | + + + + + | [facility] | [address] | [place] [address] | | | SERVICES, DWIGHT | [address] | | | + + + + + TRANSTHORACIC ECHOCARDIOGRAM, ADULT (11/22/2019 9:28 AM PDT) + + + + + + | Component | Value | Ref Range | Performed | Pathologist | | | | | At | Signature | + + + + + + | AOV VMN | 10.0 | | [facility] | | | (AORTIC | | | OF | | | VALVE) | | | CARDIOLOGY | | + + + + + + | BIPLANE, EF | 67 | | [facility] | | | | | | OF | | | | | | CARDIOLOGY | | + + + + + + | EJECTION | 65 to 70 | | [facility] | | | FRACTION | | | OF | | | | | | CARDIOLOGY | | + + + + + + | LA | 3.4 | | [facility] | | | DIMENSION | | | OF | | | | | | CARDIOLOGY | | + + + + + + | LVIDD | 4.8 | | [facility] | | | | | | OF | | | | | | CARDIOLOGY | | + + + + + + | RVSP | 62 | | [facility] | | | | | | OF | | | | | | CARDIOLOGY | | + + + + + + | RV TAPSE | 2.4 | | [facility] | | | | | | OF | | | | | | CARDIOLOGY | | + + + + + + | RV TDI S? | 18.5 | | [facility] | | | | | | OF | | | | | | CARDIOLOGY | | + + + + + + | TR VMAX | 3.4 | | [facility] | | | (TRICUSPID | | | OF | | | VALVE) | | | CARDIOLOGY | | + + + + + + | EJECTION | 67.5 | % | [facility] | | | FRACTION | | | OF | | | RANGE MEAN | | | CARDIOLOGY | | | VALUE | | | | | + + + + + + + + | Specimen | + + | | + + + ----+ + | Narrative | Performed At | + ----+ + | [facility] | [facility]PT [facility] | | [facility] [address] | CARDIOLOGY | | [place], [place] [address] Ph: | | | Pt Name: HANK ALTMAN | | | Study Date/Time 11/22/2019 / 9:28:58 AMMRN: [id number] | | | Most recent prior: 08/26/2019Acc #: [id number] | | | No. previous echos: 1DOB: 1965 54 years | | | Heart Rate: 109 bpmHeight: 63.0 in | | | Blood Pressure: 96/56 mm/HgWeight: 178.0 lb | | | Gender: FBSA: 1.84 m | | | Order ID: [id number] Study | | | Location: 4ASonographer: Noemi Cowan RCSReferring Provider: LISA Harmon | | | LAWRENCEModalities Performed: 2D, Color flow, Spectral Doppler and | | | Lumason contrast.Study Quality: This was a technically difficult | | | study, but image quality improved with echo contrast.Imaging | | | Limitations: Supine.Exam Indication: Hypotension/Volume statusHistory: | | | 54yoF with Hx of Hodgkin's lymphoma who was referred from infusion | | | clinic to ED on 11/20 for asymptomatic hypotension Patient history has | | | been obtained from the EHR Transthoracic Echocardiographic Report | | | + | | | ---------+ Final Impressions: | | | | | | | | | | | | | | | 1. The left ventricular size is normal. | | | 2. The LV function is | | | normal. | | | 3. Mild aortic stenosis (See comments below). | | | 4. RV cavity size is mildly | | | enlarged. RV global systolic function is mildly reduced. The | | | estimated right ventricular systolic pressure is moderately to | | | severely elevated (RVSP = 62.1 mmHg). | | | 5. Compared to the most recent exam | | | dated 08/26/2019, RVSP is lower. | | | | | | | | | + | | | + Description of Findings: Cardiac Rhythm: | | | Tachycardia.Left Ventricle: The left ventricular size is normal. | | | Visually estimated left ventricular ejection fraction is 65 - 70%. The | | | interventricular septum is flattened in systole and diastole | | | consistent with right ventricular pressure and volume overload. The LV | | | diastolic filling pattern is normal. The ejection fraction is 67.2 % | | | as measured by Acosta's biplane method. The LV function is normal. | | | Due to poor endocardial definition, ultrasound contrast was used | | | (Lumason).Left Ventricular Wall Motion: Left ventricular systolic | | | thickening is normal in all segments.Atria: Left atrial size is | | | normal. Normal right atrium.Right Ventricle: Right ventricular cavity | | | size is mildly enlarged. The RV global systolic function is mildly | | | reduced. TAPSE measures 2.4cm. The RV TDI s' velocity is | | | 18.5cm/sec.Aortic Valve: The aortic valve is trileaflet and mildly | | | calcified. No indication of aortic valve regurgitation. Mild aortic | | | stenosis.Mitral Valve: The mitral valve is structurally normal. No | | | evidence of mitral valve regurgitation.Tricuspid Valve: The tricuspid | | | valve is structurally normal. Trace tricuspid regurgitation. The | | | tricuspid regurgitant velocity is 3.43 m/s, and with an assumed right | | | atrial pressure of 15 mmHg, the estimated right ventricular systolic | | | pressure is moderately to severely elevated at 62.1 mmHg.Pulmonic | | | Valve: The pulmonic valve is structurally normal.Aorta: Visualized | | | portions of the ascending aorta and aortic root appear normal.Venous: | | | Inferior vena cava is normal with normal inspiratory | | | collapse.Pericardium: No pericardial effusion is seen.2D Measurements | | | Doppler Measurements 2D NL | | | Values Aortic MitralLVID(d) 4.77 (3.5-5.7cm) | | | Max Rakesh 2.12 Peak E cm | | | m/sLVID(s) 2.77 Mean grad 10.0 | | | Peak A cm | | | mmHgIVS(d) 0.69 (0.6-1.1cm) LVOT Rakesh 0.96 E/A Ratio | | | cm m/sLVPW(d) | | | 0.79 (0.6-1.1cm) LVOT VTI 0.170 TDI (E/e') cm | | | mLA A/Ps 2D 3.40 (2.7-3.9cm) | | | LVOT Diam 2.10 MV mn gd cm | | | cmLA vol A/L 28.9 (16-34) LVOT SV 32.1 MR | | | EROindex ml/m | | | indexed ml/m | | | LA vol MOD 50.5 (40-73ml) Tricuspid PulmonicBP | | | ml TR Vmax 3.43 PV VmaxLA vol MOD | | | 27.4 (16-34) m/sindex ml/m | | | RA Press 15 RVOT VTILVEDV 55.13 | | | mmHgindex ml/m | | | RVSP 62 PV mn gdBiplane EF 67.2 % | | | mmHg | | | Aorta: Index: | | | Ao Sinus 3.80 (2.1-3.5cm) 20.6 | | | cm | | | mm/m | | | Asc Ao 3.20 | | | 17.4 (prox) | | | cm mm/m | | | Evaluation of chamber size and geometry is accomplished through the | | | incorporation of linear, volumetric, and indexed values Report | | | electronically signed by: [id number] Silva Herrera MD (11/22/2019, | | | 11:04:06 AM) Final | | | | | | Aorta: Index: | | | Ao Sinus 3.80 (2.1-3.5cm) 20.6 | | | cm mm/m | | | Asc Ao 3.20 17.4 | | | (prox) cm mm/m | | |Evaluation of chamber size and geometry is accomplished through the incorporation of | | |linear, volumetric, and indexed values | | | | | |Report electronically signed by: [id number] Silva Herrera MD (11/22/2019, 11:04:06 AM) | | | | | | | | | | | | Final | | + ----+ + + + | Procedure Note | + + | Interface, Cardiology Results - 11/22/2019 11:[address] [facility] | | [facility] [address] [place] [address] | | [place], [place] [id number] Pt Name: HANK MONCADA | | [facility] Study Date/Time 11/22/2019 / 9:28:58 AMMRN: [id number] Most | | recent prior: 08/26/2019Acc #: [id number] No. previous echos: 1DOB: | | 1965 54 years Heart Rate: 109 bpmHeight: 63.0 in Blood | | Pressure: 96/56 mm/HgWeight: 178.0 lb Gender: FBSA: | | 1.84 m | | Order ID: [id number] Study Location: 4ASonographer: Noemi | | Camryn RCSReferring Provider: LISA STEELEModorem community hospital Performed: 2D, Color flow, | | Spectral Doppler and Lumason contrast.Study Quality: This was a technically difficult | | study, but image quality improved with echo contrast.Imaging Limitations: Supine.Exam | | Indication: Hypotension/Volume statusHistory: 54yoF with Hx of Hodgkin's lymphoma who | | was referred from infusion clinic to ED on 11/20 for asymptomatic hypotension Patient | | history has been obtained from the EHR Transthoracic Echocardiographic | | Report+ + | | Final Impressions: | | | | 1. The left ventricular | | size is normal. 2. The LV function is normal. | | 3. Mild aortic stenosis (See comments | | below). 4. RV cavity size is mildly enlarged. RV | | global systolic function is mildly reduced. The estimated right ventricular systolic | | pressure is moderately to severely elevated (RVSP = 62.1 mmHg). | | 5. Compared to the most recent exam dated 08/26/2019, RVSP is | | lower. | | | | + + | | Description of Findings: Cardiac Rhythm: Tachycardia.Left Ventricle: The left | | ventricular size is normal. Visually estimated left ventricular ejection fraction is 65 | | - 70%. The interventricular septum is flattened in systole and diastole consistent with | | right ventricular pressure and volume overload. The LV diastolic filling pattern is | | normal. The ejection fraction is 67.2 % as measured by Acosta's biplane method. The LV | | function is normal. Due to poor endocardial definition, ultrasound contrast was used | | (Lumason).Left Ventricular Wall Motion: Left ventricular systolic thickening is normal | | in all segments.Atria: Left atrial size is normal. Normal right atrium.Right Ventricle: | | Right ventricular cavity size is mildly enlarged. The RV global systolic function is | | mildly reduced. TAPSE measures 2.4cm. The RV TDI s' velocity is 18.5cm/sec.Aortic Valve: | | The aortic valve is trileaflet and mildly calcified. No indication of aortic valve | | regurgitation. Mild aortic stenosis.Mitral Valve: The mitral valve is structurally | | normal. No evidence of mitral valve regurgitation.Tricuspid Valve: The tricuspid valve | | is structurally normal. Trace tricuspid regurgitation. The tricuspid regurgitant | | velocity is 3.43 m/s, and with an assumed right atrial pressure of 15 mmHg, the | | estimated right ventricular systolic pressure is moderately to severely elevated at 62.1 | | mmHg.Pulmonic Valve: The pulmonic valve is structurally normal.Aorta: Visualized | | portions of the ascending aorta and aortic root appear normal.Venous: Inferior vena cava | | is normal with normal inspiratory collapse.Pericardium: No pericardial effusion is | | seen.2D Measurements Doppler Measurements 2D NL Values | | Aortic MitralLVID(d) 4.77 (3.5-5.7cm) Max Rakesh 2.12 Peak E cm | | m/sLVID(s) 2.77 Mean grad 10.0 Peak A | | cm mmHgIVS(d) 0.69 (0.6-1.1cm) LVOT Rakesh 0.96 E/A | | Ratio cm m/sLVPW(d) 0.79 (0.6-1.1cm) LVOT VTI | | 0.170 TDI (E/e') cm mLA A/Ps 2D 3.40 (2.7-3.9cm) | | LVOT Diam 2.10 MV mn gd cm cmLA vol A/L 28.9 | | (16-34) LVOT SV 32.1 MR EROindex ml/m | | indexed ml/m | | LA vol MOD 50.5 (40-73ml) Tricuspid PulmonicBP ml TR | | Vmax 3.43 PV VmaxLA vol MOD 27.4 (16-34) m/sindex ml/m | | RA Press 15 RVOT VTILVEDV 55.13 | | mmHgindex ml/m | | RVSP 62 PV mn gdBiplane EF 67.2 % mmHg | | Aorta: Index: | | Ao Sinus 3.80 (2.1-3.5cm) 20.6 cm | | mm/m | | Asc Ao 3.20 17.4 | | (prox) cm mm/m | | Evaluation of chamber size and geometry is accomplished through the incorporation of | | linear, volumetric, and indexed values Report electronically signed by: [id number] [facility] | | Javier ROACH (11/22/2019, 11:04:06 AM) Final | |Aorta: Visualized portions of the ascending aorta and aortic root appear normal. | |Venous: Inferior vena cava is normal with normal inspiratory collapse. | |Pericardium: No pericardial effusion is seen. | |2D Measurements Doppler Measurements | | | | 2D NL Values Aortic Mitral | |LVID(d) 4.77 (3.5-5.7cm) Max Rakesh 2.12 Peak E | | cm m/s | |LVID(s) 2.77 Mean grad 10.0 Peak A | | cm mmHg | |IVS(d) 0.69 (0.6-1.1cm) LVOT Rakesh 0.96 E/A Ratio | | cm m/s | |LVPW(d) 0.79 (0.6-1.1cm) LVOT VTI 0.170 TDI (E/e') | | cm m | |LA A/Ps 2D 3.40 (2.7-3.9cm) LVOT Diam 2.10 MV mn gd | | cm cm | |LA vol A/L 28.9 (16-34) LVOT SV 32.1 MR ERO | |index ml/m indexed ml/m | |LA vol MOD 50.5 (40-73ml) Tricuspid Pulmonic | |BP ml TR Vmax 3.43 PV Vmax | |LA vol MOD 27.4 (16-34) m/s | |index ml/m RA Press 15 RVOT VTI | |LVEDV 55.13 mmHg | |index ml/m RVSP 62 PV mn gd | |Biplane EF 67.2 % mmHg | | | | Aorta: Index: | | Ao Sinus 3.80 (2.1-3.5cm) 20.6 | | cm mm/m | | Asc Ao 3.20 17.4 | | (prox) cm mm/m | |Evaluation of chamber size and geometry is accomplished through the incorporation of | |linear, volumetric, and indexed values | | | |Report electronically signed by: [id number] Silva Herrera MD (11/22/2019, 11:04:06 AM) | | | | | | | | Final | + + + + + + + | Performing | Address | City/State/Zipcode | Phone Number | | Organization | | | | + + + + + | [facility] | [address] | [place], [place] | | | CARDIOLOGY | [address] | [phone] | | + + + + + CAPILLARY BLOOD GLUCOSE (NO CHG), POC (11/22/2019 7:36 AM PDT) + +-------+ + + + | Component | Value | Ref Range | Performed | Pathologist | | | | | At | Signature | + +-------+ + + + | BLOOD | 81 | 70 - 99 mg/dL | [facility] - | | | GLUCOSE, | | | [place] | | | POC | | | [place] | | | | | | OF CARE | | | | | | TESTS | | + +-------+ + + + + + | Specimen | + + | Blood | + + + + + + + | Performing | Address | City/State/Zipcode | Phone Number | | Organization | | | | + + + + + | [facility] | [address] | [place], [place] | | | [facility] | [facility] | [address] | | | TESTS | | | | + + + + + CAPILLARY BLOOD GLUCOSE (NO CHG), POC (11/22/2019 7:19 AM PDT) + +-------+ + + + | Component | Value | Ref Range | Performed | Pathologist | | | | | At | Signature | + +-------+ + + + | BLOOD | 91 | 70 - 99 mg/dL | [facility] - | | | GLUCOSE, | | | [place] | | | POC | | | [facility] | | | | | | OF CARE | | | | | | TESTS | | + +-------+ + + + + + | Specimen | + + | Blood | + + + + + + + | Performing | Address | City/State/Zipcode | Phone Number | | Organization | | | | + + + + + | [facility] | [address] | [place], [place] | | | [facility] | [address] | [address] | | | TESTS | | | | + + + + + CREATININE, URINE (11/22/2019 6:06 AM PDT) + +--------+ + + + | Component | Value | Ref Range | Performed | Pathologist | | | | | At | Signature | + +--------+ + + + | CREATININE | 47.30 | mg/dL | [facility] | | | CONC UR | | | LABORATORY | | | | | | SERVICES, | | | | | | CORE | | + +--------+ + + + | URINE | Random | | [facility] | | | INTERVAL | | | LABORATORY | | | | | | SERVICES, | | | | | | CORE | | + +--------+ + + + + + | Specimen | + + | Urine - Urine | | (substance) | + + + + + | Narrative | Performed At | + + + | Reference range based on 24 hour collection time. Patient results | [facility] | | are calculated from actual collection time. | LABORATORY | | | SERVICES, CORE | + + + + + + + + | Performing | Address | City/State/Zipcode | Phone Number | | Organization | | | | + + + + + | [facility] | [address] | [place] [address] | | | SERVICES, CORE | [address] | | | + + + + + SODIUM TOTAL, URINE (11/22/2019 6:06 AM PDT) + +--------+ + + + | Component | Value | Ref Range | Performed | Pathologist | | | | | At | Signature | + +--------+ + + + | SODIUM CONC | 70 | mmol/L | [facility] | | | URINE | | | LABORATORY | | | | | | SERVICES, | | | | | | CORE | | + +--------+ + + + | URINE | Random | | [facility] | | | INTERVAL | | | LABORATORY | | | | | | SERVICES, | | | | | | CORE | | + +--------+ + + + + + | Specimen | + + | Urine - Urine | | (substance) | + + + + + | Narrative | Performed At | + + + | Reference range based on 24 hour collection time. Patient results | [facility] | | are calculated from actual collection time. | LABORATORY | | | SERVICES, CORE | + + + + + + + + | Performing | Address | City/State/Zipcode | Phone Number | | Organization | | | | + + + + + | [facility] | [address] | [place] [address] | | | SERVICES, CORE | [address] | | | + + + + + CBC AND AUTO DIFF (11/22/2019 4:14 AM PDT) + + + + + + | Component | Value | Ref Range | Performed | Pathologist | | | | | At | Signature | + + + + + + | WHITE CELL | 3.36 (L) | 3.50 - 10.80 | [facility] | | | COUNT | | K/cu mm | LABORATORY | | | | | | SERVICES, | | | | | | CORE | | + + + + + + | RED CELL | 3.92 (L) | 4.00 - 5.20 | [facility] | | | COUNT | | M/cu mm | LABORATORY | | | | | | SERVICES, | | | | | | CORE | | + + + + + + | HEMOGLOBIN | 10.9 (L) | 12.0 - 16.0 | [facility] | | | | | g/dL | LABORATORY | | | | | | SERVICES, | | | | | | CORE | | + + + + + + | HEMATOCRIT | 35.2 (L) | 36.0 - 46.0 % | [facility] | | | | | | LABORATORY | | | | | | SERVICES, | | | | | | CORE | | + + + + + + | MCV | 89.8 | 80.0 - 100.0 fL | [facility] | | | | | | LABORATORY | | | | | | SERVICES, | | | | | | CORE | | + + + + + + | MCHC | 31.0 (L) | 32.0 - 36.0 | [facility] | | | | | g/dL | LABORATORY | | | | | | SERVICES, | | | | | | CORE | | + + + + + + | RDW SD | 56.2 (H) | 35.1 - 46.3 fL | [facility] | | | | | | LABORATORY | | | | | | SERVICES, | | | | | | CORE | | + + + + + + | PLATELET | 202 | 150 - 400 K/cu | [facility] | | | COUNT | | mm | LABORATORY | | | | | | SERVICES, | | | | | | CORE | | + + + + + + | MPV | 8.4 (L) | 9.7 - 12.3 fL | [...] + + + + | NEUTROPHIL | 78.2 (H) | 50.0 - 70.0 % | [facility] | | | % | | | LABORATORY | | | | | | SERVICES, | | | | | | CORE | | + + + + + + | LYMPHOCYTE | 16.1 (L) | 18.0 - 42.0 % | [facility] | | | % | | | LABORATORY | | | | | | SERVICES, | | | | | | CORE | | + + + + + + | MONOCYTE % | 4.2 | 3.5 - 9.0 % | [facility] | | | | | | LABORATORY | | | | | | SERVICES, | | | | | | CORE | | + + + + + + | EOS % | 0.6 (L) | 1.0 - 3.0 % | [facility] | | | | | | LABORATORY | | | | | | SERVICES, | | | | | | CORE | | + + + + + + | BASO % | 0.3 | 0.0 - 2.0 % | [facility] | | | | | | LABORATORY | | | | | | SERVICES, | | | | | | CORE | | + + + + + + | IG% | 0.6 | 0.0 - 1.0 % | [facility] | | | | | | LABORATORY | | | | | | SERVICES, | | | | | | CORE | | + + + + + + | NEUTROPHIL | 2.63 | 1.80 - 7.70 | [facility] | | | # | | K/cu mm | LABORATORY | | | | | | SERVICES, | | | | | | CORE | | + + + + + + | LYMPHOCYTE | 0.54 (L) | 1.00 - 4.80 | [facility] | | | # | | K/cu mm | LABORATORY | | | | | | SERVICES, | | | | | | CORE | | + + + + + + | MONOCYTE # | 0.14 | 0.10 - 0.90 | [facility] | | | | | K/cu mm | LABORATORY | | | | | | SERVICES, | | | | | | CORE | | + + + + + + | EOS # | 0.02 | 0.00 - 0.50 | [facility] | | | | | K/cu mm | LABORATORY | | | | | | SERVICES, | | | | | | CORE | | + + + + + + | BASO # | 0.01 | 0.00 - 0.10 | [facility] | | | | | K/cu mm | LABORATORY | | | | | | SERVICES, | | | | | | CORE | | + + + + + + | IG# | 0.02 | 0.00 - 0.10 | [facility] | [...] the IG count. Bands are | SERVICES, CORE | | included in the neutrophil count. | | + + + + + + + + | Performing | Address | City/State/Zipcode | Phone Number | | Organization | | | | + + + + + | [facility] | [address] | [place] [address] | | | SERVICES, CORE | [address] | | | + + + + + TSH (11/22/2019 4:14 AM PDT) + +-------+ + + + | Component | Value | Ref Range | Performed | Pathologist | | | | | At | Signature | + +-------+ + + + | TSH | 3.26 | 0.50 - 5.07 | [facility] | [...] + + | [facility] | [address] | [place] [address] | | | DWIGHT MARTINEZ | [address] | | | + + + + + FREE T4 (11/22/2019 4:14 AM PDT) + +---------+ + + + | Component | Value | Ref Range | Performed | Pathologist | | | | | At | Signature | + +---------+ + + + | FREE T4 | 3.3 (H) | 0.6 - 1.2 ng/dL | [facility] | | | | | | LABORATORY | | | | | | SERVICES, | | | | | | CORE | | + +---------+ + + + + + | Specimen | + + | Blood - Blood | | (substance) | + + + + + + + | Performing | Address | City/State/Zipcode | Phone Number | | Organization | | | | + + + + + | [facility] | [address] | [place] [address] | | | SERVICES, CORE | [address] | | | + + + + + COMPLETE METABOLIC SET (NA,K,CL,CO2,BUN,CREAT,GLUC,CA,AST,ALT,BILI TOTAL,ALK PHOS,ALB,PROT TOTAL) (11/22/2019 4:14 AM PDT) + + + + + + | Component | Value | Ref Range | Performed | Pathologist | | | | | At | Signature | + + + + + + | GLUCOSE, | 88 | 70 - 99 mg/dL | [facility] | | | PLASMA | | | LABORATORY | | | (LAB) | | | SERVICES, | | | | | | CORE | | + + + + + + | BUN, PLASMA | 77 (H) | 6 - 20 mg/dL | [facility] | | | (LAB) | | | LABORATORY | | | | | | SERVICES, | | | | | | CORE | | + + + + + + | CREATININE | 3.13 (H) | 0.60 - 1.10 | [facility] | | | PLASMA | | mg/dL | LABORATORY | | | (LAB) | | | SERVICES, | | | | | | CORE | | + + + + + + | EGFR | 19 (L) | >60 mL/min | [facility] | | | - | | | LABORATORY | | | STATELESS | | | SERVICES, | | | | | | CORE | | + + + + + + | EGFR NON | 15 (L) | >60 mL/min | [facility] | | | -LISA | | | LABORATORY | | | RICAN | | | SERVICES, | | | | | | CORE | | + + + + + + | SODIUM, | 134 (L) | 136 - 145 | [facility] | | | PLASMA | | mmol/L | LABORATORY | | | (LAB) | | | SERVICES, | | | | | | CORE | | + + + + + + | POTASSIUM, | 5.8 (H) | 3.4 - 5.0 | [facility] | | | PLASMA | | mmol/L | LABORATORY | | | (LAB) | | | SERVICES, | | | | | | CORE | | + + + + + + | CHLORIDE, | 111 (H) | 97 - 108 mmol/L | [facility] | | | PLASMA | | | LABORATORY | | | (LAB) | | | SERVICES, | | | | | | CORE | | + + + + + + | TOTAL CO2, | 11 (L) | 21 - 32 mmol/L | [facility] | | | PLASMA | | | LABORATORY | | | (LAB) | | | SERVICES, | | | | | | CORE | | + + + + + + | CALCIUM, | 8.4 (L) | 8.6 - 10.2 | [facility] | | | PLASMA | | mg/dL | LABORATORY | | | (LAB) | | | SERVICES, | | | | | | CORE | | + + + + + + | CALCIUM(ALB | 10.3 (H) | 8.6 - 10.2 | [facility] | | | CORRECTED) | | mg/dL | LABORATORY | | | | | | SERVICES, | | | | | | CORE | | + + + + + + | BILIRUBIN | 0.5 | 0.3 - 1.2 mg/dL | [facility] | | | TOTAL | | | LABORATORY | | | | | | SERVICES, | | | | | | CORE | | + + + + + + | TOTAL | 5.2 (L) | 6.4 - 8.2 g/dL | [facility] | | | PROTEIN, | | | LABORATORY | | | PLASMA | | | SERVICES, | | | (LAB) | | | CORE | | + + + + + + | ALBUMIN, | 1.6 (L) | 3.5 - 4.7 g/dL | [facility] | | | PLASMA | | | LABORATORY | | | (LAB) | | | SERVICES, | | | | | | CORE | | + + + + + + | ALK PHOS | 93 | 42 - 98 U/L | [facility] | | | | | | LABORATORY | | | | | | SERVICES, | | | | | | CORE | | + + + + + + | AST(SGOT) | 46 (H) | <=41 U/L | [facility] | | | | | | LABORATORY | | | | | | SERVICES, | | | | | | CORE | | + + + + + + | ALT (SGPT) | 19 | <=60 U/L | [facility] | | | | | | LABORATORY | | | | | | SERVICES, | | | | | | CORE | | + + + + + + | ANION GAP | 12 (H) | 4 - 11 mmol/L | [facility] | | | | | | LABORATORY | | | | | | SERVICES, | | | | | | CORE | | + + + + + + | ANION | 18 (H) | 4 - 11 mmol/L | [facility] | | | GAP(ALB | | | LABORATORY | | | CORRECTED) | | | SERVICES, | | | | | | CORE | | + + + + + + | POTASSIUM | No Hemo | | [facility] | | | CMNT | | | LABORATORY | | | | | | SERVICES, | | | | | | CORE | | + + + + + + | BILI T CMNT | No Hemo | | [facility] | | | | | | LABORATORY | | | | | | SERVICES, | | | | | | CORE | | + + + + + + | AST CMNT | No Hemo | | [facility] | | | | | | LABORATORY | | | | | | SERVICES, | | | | | | CORE | | + + + + + + | BUN/CREATIN | 25 | 8 - 25 | [facility] | | | INE RATIO | | | LABORATORY | | | | | | SERVICES, | | | | | | CORE | | + + + + + + | GLOBULIN | 3.6 (H) | 2.3 - 3.5 gm/dL | [facility] | | | LVL | | | LABORATORY | | | | | | SERVICES, | | | | | | CORE | | + + + + + + | ALBUMIN/NICOLETTE | 0.4 (L) | 0.7 - 2.8 | [facility] [...] MDRD equation recommended by the National | [facility] | | Kidney Disease Education Program. Estimated GFR Interpretive | LABORATORY | | Information: <60 mL/min/1.73 sq m Chronic Kidney | SERVICES, CORE | | Disease <15 mL/min/1.73 sq m Kidney Failure | | | Estimated GFR greater than 60 mL/min/1.73 sq m is of limited clinical | | | value. The MDRD equation is not valid in the following situations: | | | - Patients under 18 years [...] | + + + + + | [facility] | [address] | [place] [address] | | | SERVICES, [facility] | [address] | | | + + + + + THYROID STIMULATING IMMUNOGLOBULIN, SERUM (11/21/2019 7:26 PM PDT) + + + + + + | Component | Value | Ref Range | Performed | Pathologist | | | | | At | Signature | + + + + + + | THYROID | <0.10Comment: | <=0.54 IU/L | [facility] | | | STIMULATING | INTERPRETIVE | | REG UNIV | | | | INFORMATION: Thyroid | | PTH - [facility] | | | IMMUNOGLOBU | Stimulating | | | | | WON | Immunoglobulin | | | | | | | | | | | | (TSI)0.54 IU/L or | | | | | | less.........Consistent | | | | | | with healthy thyroid | | | | | | function or non-Graves | | | | | | thyroid or autoimmune | | | | | | disease. Those with | | | | | | healthy thyroid function | | | | | | typically have results | | | | | | less than 0.1 IU/L. 0.55 | | | | | | IU/L or | | | | | | greater......Consistent | | | | | | with Graves disease | | | | | | (autoimmune | | | | | | hyperthyroidism) This | | | | | | assay specifically | | | | | | detects thyroid | | | | | | stimulating | | | | | | autoantibodies. For | | | | | | diagnostic purposes, the | | | | | | results obtained from | | | | | | this assay should be | | | | | | used in combination with | | | | | | clinical examination, | | | | | | patient medical history, | | | | | | and other | | | | | | findings.Performed by | | | | | | [address] | | | | | [address], [facility],[place] | | | | | | [address] | | | | | | [phone].[employer]Pr[employer]ab. | | | | | | Denis willingham MD, | | | | | | Lab. Director | | | | + + + + + + + + | Specimen | + + | Blood - Blood | | (substance) | + + + + + + + | Performing | Address | City/State/Zipcode | Phone Number | | Organization | | | | + + + + + | [facility] | [address] | [place], [place] | | | UNIV PTH - [facility] | | [address] | | + + + + + THYROID PEROXIDASE AB, SERUM (11/21/2019 7:26 PM PDT) + + + + + + | Component | Value | Ref Range | Performed | Pathologist | | | | | At | Signature | + + + + + + | THYROID | 0.3Comment: Performed by | 0.0 - 9.0 IU/mL | [facility] | | | PEROXIDASE | [address] | | REG UNIV | | | AB | [facility], [facility],[place] | | PTH - INT[facility] | | | | [address] | | | | | | [phone].[employer]. | | | | | | Denis willingham MD, | | | | | | Lab. Director | | | | + + + + + + + + | Specimen | + + | Blood - Blood | | (substance) | + + + + + + + | Performing | Address | City/State/Zipcode | Phone Number | | Organization | | | | + + + + + | [facility] | [address] | [place], [place] | | | UNIV PTH - [facility] | | [address] | | + + + + + NT-PRO BNP (11/21/2019 7:09 PM PDT) + + + + + + | Component | Value | Ref Range | Performed | Pathologist | | | | | At | Signature | + + + + + + | NT-PRO BNP | 3,981 (H) | <125 pg/mL | [facility] | | | | | [...] + + | [facility] | [address] | [place] [address] | | | SERVICES, CORE | [address] | | | + + + + + COMPLETE METABOLIC SET (NA,K,CL,CO2,BUN,CREAT,GLUC,CA,AST,ALT,BILI TOTAL,ALK PHOS,ALB,PROT TOTAL) (11/21/2019 7:09 PM PDT) + + + + + + | Component | Value | Ref Range | Performed | Pathologist | | | | | At | Signature | + + + + + + | GLUCOSE, | 72 | 70 - 99 mg/dL | [facility] | | | PLASMA | | | LABORATORY | | | (LAB) | | | SERVICES, | | | | | | CORE | | + + + + + + | BUN, PLASMA | 78 (H) | 6 - 20 mg/dL | [facility] | | | (LAB) | | | LABORATORY | | | | | | SERVICES, | | | | | | CORE | | + + + + + + | CREATININE | 2.92 (H) | 0.60 - 1.10 | [facility] | | | PLASMA | | mg/dL | LABORATORY | | | (LAB) | | | SERVICES, | | | | | | CORE | | + + + + + + | EGFR | 20 (L) | >60 mL/min | [facility] | | | - | | | LABORATORY | | | STATELESS | | | SERVICES, | | | | | | CORE | | + + + + + + | EGFR NON | 17 (L) | >60 mL/min | [facility] | | | -LISA | | | LABORATORY | | | RICAN | | | SERVICES, | | | | | | CORE | | + + + + + + | SODIUM, | 136 | 136 - 145 | [facility] | | | PLASMA | | mmol/L | LABORATORY | | | (LAB) | | | SERVICES, | | | | | | CORE | | + + + + + + | POTASSIUM, | 5.0 | 3.4 - 5.0 | [facility] | | | PLASMA | | mmol/L | LABORATORY | | | (LAB) | | | SERVICES, | | | | | | CORE | | + + + + + + | CHLORIDE, | 110 (H) | 97 - 108 mmol/L | [facility] | | | PLASMA | | | LABORATORY | | | (LAB) | | | SERVICES, | | | | | | CORE | | + + + + + + | TOTAL CO2, | 16 (L) | 21 - 32 mmol/L | [facility] | | | PLASMA | | | LABORATORY | | | (LAB) | | | SERVICES, | | | | | | CORE | | + + + + + + | CALCIUM, | 8.1 (L) | 8.6 - 10.2 | [facility] | | | PLASMA | | mg/dL | LABORATORY | | | (LAB) | | | SERVICES, | | | | | | CORE | | + + + + + + | CALCIUM(ALB | 10.1 | 8.6 - 10.2 | [facility] | | | CORRECTED) | | mg/dL | LABORATORY | | | | | | SERVICES, | | | | | | CORE | | + + + + + + | BILIRUBIN | 0.5 | 0.3 - 1.2 mg/dL | [facility] | | | TOTAL | | | LABORATORY | | | | | | SERVICES, | | | | | | CORE | | + + + + + + | TOTAL | 5.0 (L) | 6.4 - 8.2 g/dL | [facility] | | | PROTEIN, | | | LABORATORY | | | PLASMA | | | SERVICES, | | | (LAB) | | | CORE | | + + + + + + | ALBUMIN, | 1.5 (L) | 3.5 - 4.7 g/dL | [facility] | | | PLASMA | | | LABORATORY | | | (LAB) | | | SERVICES, | | | | | | CORE | | + + + + + + | ALK PHOS | 91 | 42 - 98 U/L | [facility] | | | | | | LABORATORY | | | | | | SERVICES, | | | | | | CORE | | + + + + + + | AST(SGOT) | 44 (H) | <=41 U/L | [facility] | | | | | | LABORATORY | | | | | | SERVICES, | | | | | | CORE | | + + + + + + | ALT (SGPT) | 19 | <=60 U/L | [facility] | | | | | | LABORATORY | | | | | | SERVICES, | | | | | | CORE | | + + + + + + | ANION GAP | 10 | 4 - 11 mmol/L | [facility] | | | | | | LABORATORY | | | | | | SERVICES, | | | | | | CORE | | + + + + + + | ANION | 16 (H) | 4 - 11 mmol/L | [facility] | | | GAP(ALB | | | LABORATORY | | | CORRECTED) | | | SERVICES, | | | | | | CORE | | + + + + + + | POTASSIUM | No Hemo | | [facility] | | | CMNT | | | LABORATORY | | | | | | SERVICES, | | | | | | CORE | | + + + + + + | BILI T CMNT | No Hemo | | [facility] | | | | | | LABORATORY | | | | | | SERVICES, | | | | | | CORE | | + + + + + + | AST CMNT | No Hemo | | [facility] | | | | | | LABORATORY | | | | | | SERVICES, | | | | | | CORE | | + + + + + + | BUN/CREATIN | 27 (H) | 8 - 25 | [facility] | | | INE RATIO | | | LABORATORY | | | | | | SERVICES, | | | | | | CORE | | + + + + + + | GLOBULIN | 3.5 | 2.3 - 3.5 gm/dL | [facility] | | | LVL | | | LABORATORY | | | | | | SERVICES, | | | | | | CORE | | + + + + + + | ALBUMIN/NICOLETTE | 0.4 (L) | 0.7 - 2.8 | [facility] [...] MDRD equation recommended by the National | [facility] | | Kidney Disease Education Program. Estimated GFR Interpretive | LABORATORY | | Information: <60 mL/min/1.73 sq m Chronic Kidney | SERVICES, CORE | | Disease <15 mL/min/1.73 sq m Kidney Failure | | | Estimated GFR greater than 60 mL/min/1.73 sq m is of limited clinical | | | value. The MDRD equation is not valid in the following situations: | | | - Patients under 18 years [...] + + | [facility] | [address] | [place] [address] | | | SERVICES, CORE | [address] | | | + + + + + TROPONIN I, PLASMA (11/21/2019 7:09 PM PDT) + +-------+ + + + | Component | Value | Ref Range | Performed | Pathologist | | | | | At | Signature | + +-------+ + + + | TROPONIN I | 0.08 | <0.80 ng/mL | [facility] | | | | | [...] | + + + + + | [facility] | [address] | [place] [address] | | | SERVICES, [place] | [address] | | | + + + + + T3 TOTAL, SERUM (11/21/2019 7:09 PM PDT) + +--------+ + + + | Component | Value | Ref Range | Performed | Pathologist | | | | | At | Signature | + +--------+ + + + | T3, TOTAL | 86 (L) | 87 - 196 ng/dL | [facility] | | | | | | [facility] | | | | | | [place] | | + +--------+ + + + + + | Specimen | + + | Blood - Blood | | (substance) | + + + + + | Narrative | Performed At | + + + | High doses of biotin (>5 mg/day) can interfere with this | [facility] - | | laboratory test. Falsely elevated or decreased lab values may be seen. | [facility] - | | Patients should abstain from high dose biotin for 48 hours before | [place] | | having lab tests drawn. | | + + + + + + + + | Performing | Address | City/State/Zipcode | Phone Number | | Organization | | | | + + + + + | [facility] | [address] | [place] [address] | | | [place] | | | | + + + + + 12 LEAD ECG (11/21/2019 6:25 PM PDT) + + + + + + | Component | Value | Ref Range | Performed | Pathologist | | | | | At | Signature | + + + + + + | VENTRICULAR | 113 | bpm | [facility] | | | RATE | | | OF | | | | | | CARDIOLOGY | | + + + + + + | ATRIAL RATE | 113 | ms | [facility] | | | | | | OF | | | | | | CARDIOLOGY | | + + + + + + | P-R | 179 | ms | [facility] | | | INTERVAL | | | OF | | | | | | CARDIOLOGY | | + + + + + + | P AXIS | 34 | deg | [facility] | | | | | | OF | | | | | | CARDIOLOGY | | + + + + + + | QRS | 91 | ms | [facility] | | | DURATION | | | OF | | | | | | CARDIOLOGY | | + + + + + + | QT | 310 | ms | [facility] | | | | | | OF | | | | | | CARDIOLOGY | | + + + + + + | QTC-BAZETT | 425 | ms | [facility] | | | | | | OF | | | | | | CARDIOLOGY | | + + + + + + | R AXIS | 247 | deg | [facility] | | | | | | OF | | | | | | CARDIOLOGY | | + + + + + + | T AXIS | 0 | deg | [facility] | | | | | | OF | | | | | | CARDIOLOGY | | + + + + + + | ECG | Sinus tachycardia | | [facility] | | | IMPRESSION | | | OF | | | | | | CARDIOLOGY | | + + + + + + | ECG | Consider Inferior | | [facility] | | | IMPRESSION | infarct, old- ABNORMAL | | OF | | | | ECG - | | CARDIOLOGY | | + + + + + + | ECG | Electronically signed | | [facility] | | | IMPRESSION | by: JULIO LONG | | OF | | | | 11-23-2019 17:13:14 | | CARDIOLOGY | | + + + + + + + + | Specimen | + + | | + + + + + | Narrative | Performed At | + + + | | | + + + + + + + + | Performing | Address | City/State/Zipcode | Phone Number | | Organization | | | | + + + + + | [facility] | [address] | [place], [place] | | | CARDIOLOGY | [address] | [address] | | + + + + + URINE, MICROSCOPIC EXAM (11/21/2019 2:07 PM PDT) + + + + + + | Component | Value | Ref Range | Performed | Pathologist | | | | | At | Signature | + + + + + + | RED CELLS | >1000 (H) | 0 - 3 /hpf | [facility] | | | | | | [facility]ORATORY | | | | | | SERVICES, | | | | | | CORE | | + + + + + + | WHITE CELLS | 2 | 0 - 5 /hpf | [facility] | | | | | | LABORATORY | | | | | | SERVICES, | | | | | | CORE | | + + + + + + | BACTERIA | None | None /hpf | [facility] | | | | | | LABORATORY | | | | | | SERVICES, | | | | | | CORE | | + + + + + + | YEAST (LAB) | None | None /hpf | [facility] | | | | | | LABORATORY | | | | | | SERVICES, | | | | | | CORE | | + + + + + + | SQUAMOUS | None | None, Few /hpf | [facility] | | | EPITHELIAL | | | LABORATORY | | | | | | SERVICES, | | | | | | CORE | | + + + + + + | MUCOUS | None | None, Few /hpf | [facility] | | | | | | LABORATORY | | | | | | SERVICES, | | | | | | CORE | | + + + + + + | NON-SQUAMOU | None | None /hpf | [facility] | | | S EPITH | | | LABORATORY | | | | | | SERVICES, | | | | | | CORE | | + + + + + + | HYALINE | 0 | 0 - 2 /lpf | [facility] | | | CASTS | | | LABORATORY | | | | | | SERVICES, | | | | | | CORE | | + + + + + + | GRANULAR | 0 | 0 - 2 /lpf | [facility] | | | CASTS | | | LABORATORY | | | | | | SERVICES, | | | | | | CORE | | + + + + + + | CELLULAR | 0 | <=0 /lpf | [facility] | | | CASTS | | | LABORATORY | | | | | | SERVICES, | | | | | | CORE | | + + + + + + | TRIPLE P04 | None | None, Few /hpf | [facility] | | | CRYSTALS | | | LABORATORY | | | | | | SERVICES, | | | | | | CORE | | + + + + + + | CALCIUM | None | None, Few /hpf | [facility] | | | OXALATE | | | LABORATORY | | | MILAN | | | SERVICES, | | | | | | CORE | | + + + + + + | URIC ACID | None | None, Few /hpf | [facility] | | | CRYSTALS | | | LABORATORY | | | | | | SERVICES, | | | | | | CORE | | + + + + + + | AMORPHOUS | None | None, Few /hpf | [facility] | | | CRYSTALS | | | LABORATORY | | | | | | SERVICES, | | | | | | CORE | | + + + + + + + + | Specimen | + + | Urine - Urine | | (substance) | + + + + + + + | Performing | Address | City/State/Zipcode | Phone Number | | Organization | | | | + + + + + | [facility] | [address] | [place] [address] | | | SERVICES, CORE | [address] | | | + + + + + UA, DIPSTICK ONLY (11/21/2019 2:07 PM PDT) + + + + + + | Component | Value | Ref Range | Performed | Pathologist | | | | | At | Signature | + + + + + + | COLOR(UR) | Yellow | | [facility] | | | | | | LABORATORY | | | | | | SERVICES, | | | | | | CORE | | + + + + + + | APPEARANCE | Sl.Cloudy | | [facility] | | | | | | LABORATORY | | | | | | SERVICES, | | | | | | CORE | | + + + + + + | GLUCOSE(UR) | 50.0 | Negative, 50.0 | [facility] | | | | | mg/dL | LABORATORY | | | | | | SERVICES, | | | | | | CORE | | + + + + + + | PROTEIN(LAB | >=500.0 (A) | Negative, 30.0 | [facility] | | | ) | | mg/dL | LABORATORY | | | | | | SERVICES, | | | | | | CORE | | + + + + + + | BILIRUBIN | Negative | Negative | [facility] | | | | | | LABORATORY | | | | | | SERVICES, | | | | | | CORE | | + + + + + + | UROBILINOGE | <2.0 | <2.0 mg/dL | [facility] | | | N | | | LABORATORY | | | | | | SERVICES, | | | | | | CORE | | + + + + + + | PH(UR) | 7.0 | 5.0 - 8.0 | [facility] | | | | | | LABORATORY | | | | | | SERVICES, | | | | | | CORE | | + + + + + + | BLOOD | Large (A) | Negative | [facility] | | | | | | LABORATORY | | | | | | SERVICES, | | | | | | CORE | | + + + + + + | KETONES | 5.0 (A) | Negative mg/dL | [facility] | | | | | | LABORATORY | | | | | | SERVICES, | | | | | | CORE | | + + + + + + | NITRITES | Negative | Negative | [facility] | | | | | | LABORATORY | | | | | | SERVICES, | | | | | | CORE | | + + + + + + | LEUKOCYTE | Negative | Negative | [facility] | | | ESTERASE | | | LABORATORY | | | | | | SERVICES, | | | | | | CORE | | + + + + + + | SPECIFIC | 1.012Comment: Specific | 1.005 - 1.030 | [facility] | | | GRAVITY | Hammon performed by | | LABORATORY | | | | refractometry | | SERVICES, | | | | | | CORE | | + + + + + + + + | Specimen | + + | Urine - Urine | | (substance) | + + + + + + + | Performing | Address | City/State/Zipcode | Phone Number | | Organization | | | | + + + + + | [facility] | [address] | [place] [address] | | | SERVICES, CORE | [address] | | | + + + + + LACTATE (11/21/2019 1:23 PM PDT) + +-------+ + + + | Component | Value | Ref Range | Performed | Pathologist | | | | | At | Signature | + +-------+ + + + | LACTATE | 1.1 | <=2.0 mmol/L | [facility] | | | | [...] | + + + + + | [facility] | [address] | [place] [address] | | | SERVICES, CORE | [address] | | | + + + + + 12 LEAD ECG (11/21/2019 1:06 PM PDT) + + + + + + | Component | Value | Ref Range | Performed | Pathologist | | | | | At | Signature | + + + + + + | VENTRICULAR | 102 | bpm | [facility] | | | RATE | | | OF | | | | | | CARDIOLOGY | | + + + + + + | ATRIAL RATE | 101 | ms | [facility] | | | | | | OF | | | | | | CARDIOLOGY | | + + + + + + | P-R | 183 | ms | [facility] | | | INTERVAL | | | OF | | | | | | CARDIOLOGY | | + + + + + + | P AXIS | 30 | deg | [facility] | | | | | | OF | | | | | | CARDIOLOGY | | + + + + + + | QRS | 104 | ms | [facility] | | | DURATION | | | OF | | | | | | CARDIOLOGY | | + + + + + + | QT | 344 | ms | [facility] | | | | | | OF | | | | | | CARDIOLOGY | | + + + + + + | QTC-BAZETT | 447 | ms | [facility] | | | | | | OF | | | | | | CARDIOLOGY | | + + + + + + | R AXIS | 230 | deg | [facility] | | | | | | OF | | | | | | CARDIOLOGY | | + + + + + + | T AXIS | 11 | deg | [facility] | | | | | | OF | | | | | | CARDIOLOGY | | + + + + + + | ECG | Sinus tachycardia | | [facility] | | | IMPRESSION | | | OF | | | | | | CARDIOLOGY | | + + + + + + | ECG | Consider Inferior | | [facility] | | | IMPRESSION | infarct, old- ABNORMAL | | OF | | | | ECG - | | CARDIOLOGY | | + + + + + + | ECG | Electronically signed | | [facility] | | | IMPRESSION | by: JULIO LONG | | OF | | | | 11-23-2019 17:13:16 | | CARDIOLOGY | | + + + + + + + + | Specimen | + + | | + + + + + | Narrative | Performed At | + + + | | | + + + + + + + + | Performing | Address | City/State/Zipcode | Phone Number | | Organization | | | | + + + + + | [facility] | [address] | [place], [place] | | | CARDIOLOGY | [address] | [address] | | + + + + + X-RAY PORTABLE CHEST 1 VIEW (11/21/2019 12:46 PM PDT) + + | Specimen | + + | | + + + + + | Narrative | Performed At | + + + | EXAM: AR CHEST 1 VIEW HISTORY: low BP. History of remote | [facility] | | Hodgkin's lymphoma status post chemotherapy XRT and metastatic renal | RADIOLOGY VOICE | | cell carcinoma. COMPARISON: CT 11/21/2019, radiograph 08/26/2019 | RECOGNITION 2 | | FINDINGS: Cardiomediastinal silhouette is unchanged. There is | | | extensive calcified mediastinal lymph nodes related to treatment for | | | Hodgkin's lymphoma and prior radiation treatment. No new focal | | | consolidation. Trace bibasilar atelectasis. There is no pneumothorax, | | | pleural effusion, or pulmonary edema. Osseous structures are intact. | | | IMPRESSION: Trace bibasilar basilar atelectasis. See | | | separate report for same day CT of the chest, abdomen and pelvis for | | | additional details. I have personally reviewed the images and, if | | | necessary, edited the report. I agree with the report as now | | | presented. Final signature: Charlene Dinh MD 11/21/2019 1:11 PM | | | Preliminary: Omayra Azar MD Dictation initiated: Omayra | | | Janina Azar MD 11/21/2019 1:03 PM | | + + + + + | Procedure Note | + + | Service Account, Radiant Res In Interface - 11/21/2019 1:13 PM PDT EXAM: AR CHEST 1 | | VIEW HISTORY: low BP. History of remote Hodgkin's lymphoma status post chemotherapy XRT | | and metastatic renal cell carcinoma. COMPARISON: CT 11/21/2019, radiograph 08/26/2019 | | FINDINGS: Cardiomediastinal silhouette is unchanged. There is extensive calcified | | mediastinal lymph nodes related to treatment for Hodgkin's lymphoma and prior radiation | | treatment. No new focal consolidation. Trace bibasilar atelectasis. There is no | | pneumothorax, pleural effusion, or pulmonary edema. Osseous structures are intact. | | IMPRESSION: Trace bibasilar basilar atelectasis. See separate report for same day CT of | | the chest, abdomen and pelvis for additional details. I have personally reviewed the | | images and, if necessary, edited the report. I agree with the report as now presented. | | Final signature: Charlene Dinh MD 11/21/2019 1:11 PM Preliminary: Omayra Azar MD | | Dictation initiated: Omayra Azar MD 11/21/2019 1:03 PM | | | |Trace bibasilar basilar atelectasis. | | | |See separate report for same day CT of the chest, abdomen and pelvis for additional details . | | | |I have personally reviewed the images and, if necessary, edited the report. I agree with e report as now presented. | | | |Final signature: Charlene Dinh MD 11/21/2019 1:11 PM | |Preliminary: Omayra Azar MD | |Dictation initiated: Omayra Azar MD 11/21/2019 1:03 PM | + + + +---------+ + + | Performing | Address | City/State/Zipcode | Phone Number | | Organization | | | | + +---------+ + + | [facility] | | | | | VOICE RECOGNITION 2 | | | | + +---------+ + + ED INFORMATION EXCHANGE (11/21/2019 12:11 PM PDT) + + | Specimen | + + | | + + + + + | Narrative | Performed At | + + + | COLLECTIVE?NOTIFICATION?11/21/2019 12:10?HANK ALTMAN?MRN: | [facility]LECTIVE | | [id number] Criteria Met [facility] Security and Safety No | MEDICAL | | recent Security Events currently on file ED Care Guidelines There | [employer] | | are currently no ED Care Guidelines for this patient. Please check | | | your facility's medical records system. Prescription Drug | | | Report (12 Mo.) Rx Details Fill Date Drug Description Qty. | | | Prescriber MED 2019-11-10 OXYCODONE HCL 5 MG TABLET 90 [facility] | | | MD ANGEL 2 96.429 2019-10-25 OXYCODONE HCL 5 MG TABLET 90 | | | LISSETTE ORTIZ MD 2 96.429 2019-10-10 OXYCODONE HCL 10 MG TABLET | | | 60 [place] ORTIZ MD 2 60 2019-09-09 OXYCODONE HCL 5 MG TABLET 240 | | | LISSETTE MA 2 60 2019-08-31 OXYCODONE HCL 10 MG TABLET 60 | | | DOROTHY MAE PA-C 2 60 2019-08-22 OXYCODONE HCL 5 MG TABLET 84 | | | LIS[place]TE ORTIZ MD 2 90 2019-08-09 HYDROCODONE-ACETAMIN 5-325 MG | | | 112 [place] [place], [place] 2 2019-07-27 HYDROCODONE-ACETAMIN 5-325 MG | | | 30 GUERO SKAGGS MD 2 50 Rx Summary Metric Count CS II-V Rx | | | 8 CS-II Rx 8 Quantity Dispensed 766 Unique Prescribers 5 | | | Unique Pharmacies 3 Benzos 0 Opioids 8 Long Acting Opioids 0 | | | E.D. Visit Count (12 mo.) Facility Visits [facility] and | | | [facility] 2 [facility] 2 Total 4 Note: | | | Visits indicate total known visits. Recent Emergency Department | | | Visit Summary Date Facility [facility] State Type Diagnoses or Chief | | | Complaint Nov 21, 2019 [facility] [place] | | | [place] Emergency 10,800. AMR 33 Nov 04, 2019 [facility] | | | [place] Emergency FPC (current) use of opiate | | | analgesic Hypothyroidism, unspecified Hyperkalemia | | | Other [place] [facility] (current[facility] drug therapy Aug 24, 2019 [facility] | | | [facility] [place] Emergency 10,800. abnormal | | | labs 18,400. Malignant neoplasm of left kidney, except renal | | | pelvis 18,400. Wedge compression fracture of second lumbar | | | vertebra, init 18,400. Hyperkalemia 18,400. Hypercalcemia | | | Jul 27, 2019 [facility] [place] Emergency Other | | | long filler cigar roller machine (current) drug therapy Other specified disorders of | | | kidney and ureter Low back pain Hematuria, unspecified | | | Recent Inpatient Visit Summary Date Facility [facility] State Type | | | Diagnoses or Chief Complaint Aug 24, 2019 [facility] | | | [facility] [place] Inpatient 18,400. Hyperkalemia | | | 18,400. Wedge compression fracture of second lumbar vertebra, init | | | 18,400. Hypercalcemia 18,400. Malignant neoplasm of left | | | kidney, except renal pelvis Care Team Provider Specialty | | | Phone Fax Service Dates LISSETTE MA PA Physician Credit Support Specialist | | | Nov 07, 2019 - Current | | | Collective Portal This patient has registered at the [facility] | | [facility] Emergency Department For more information | | | visit: | | | [email or web address] | | | [email or web address] PLEASE NOTE: 1. Any care recommendations and | | | other clinical information are provided as guidelines or for | | | historical purposes only, and providers should exercise their own | | | clinical judgment when providing care. 2. You may only use this | | | information for purposes of treatment, payment or health care | | | operations activities, and subject to the limitations of applicable | | | Collective Policies. 3. You should consult directly with the | | | organization that provided a care guideline or other clinical | | | history with any questions about additional information or accuracy | | | or completeness of information provided. ? 2020 [employer] | | | [employer]. - www.[employer] | | + + + + + | Procedure Note | + + | Service Account, Rtf Results Inbound - 11/21/2019 12:12 PM PDT Formatting of this | | note might be different from the original.COLLECTIVE?NOTIFICATION?11/21/2019 12:10?[facility], | | HANK A? Met PDMPSecurity and SafetyNo recent Security Events | | currently on fileED Care GuidelinesThere are currently no ED Care Guidelines for this | | patient. Please check your facility's medical records system.Prescription Drug Report | | (12 Mo.)Rx DetailsFill Date Drug Description Qty. Prescriber MED 2019-11-10 OXYCODONE | | HCL 5 MG TABLET 90 LISSETTE ORTIZ MD 2 96.429 2019-10-25 OXYCODONE HCL 5 MG TABLET 90 | | LISSETTE ORTIZ MD 2 96.429 2019-10-10 OXYCODONE HCL 10 MG TABLET 60 LISSETTE ORTIZ | | 2 60 2019-09-09 OXYCODONE HCL 5 MG TABLET 240 LISSETTE MA 2 60 2019-08-31 | | OXYCODONE HCL 10 MG TABLET 60 DOROTHY MAE PA-C 2 60 2019-08-22 OXYCODONE HCL 5 MG | | TABLET 84 LISSETTE ORTIZ MD 2 90 2019-08-09 HYDROCODONE-ACETAMIN 5-325 MG 112 CLEVE | | [place] ALF 2 20 2019-07-27 HYDROCODONE-ACETAMIN 5-325 MG 30 GUERO SKAGGS MD 2 50 Rx | | SummaryMetric Count CS II-V Rx 8 CS-II Rx 8 Quantity Dispensed 766 Unique Prescribers 5 | | Unique Pharmacies 3 Benzos 0 Opioids 8 Long Acting Opioids 0 E.D. Visit Count (12 | | mo.)Facility Visits [facility] 2 [facility] 2 | | Total 4 Note: Visits indicate total known visits. Recent Emergency Department Visit | | SummaryDate Facility [facility] State Type Diagnoses or Chief Complaint Nov 21, 2019 [place] | | [facility] [place] Emergency 10,800. AMR 33 Nov 04, 2019 [facility] | | [facility] [place] Emergency director long term care (current) use of opiate analgesic | | Hypothyroidism, unspecified Hyperkalemia Other long filler cigar roller machine (current) drug therapy | | Aug 24, 2019 [facility] [place] Emergency 10,800. | | abnormal labs 18,400. Malignant neoplasm of left kidney, except renal pelvis | | 18,400. Wedge compression fracture of second lumbar vertebra, init 18,400. | | Hyperkalemia 18,400. Hypercalcemia Jul 27, 2019 [facility]. [place] | | Emergency Other long filler cigar roller machine (current) drug therapy Other specified disorders of | | kidney and ureter Low back pain Hematuria, unspecified Recent Inpatient Visit | | SummaryDate [facility] Type Diagnoses or Chief Complaint Aug 24, 2019 [place] | | [facility] [place] Inpatient 18,400. Hyperkalemia 18,400. | | Wedge compression fracture of second lumbar vertebra, init 18,400. Hypercalcemia | | 18,400. Malignant neoplasm of left kidney, except renal pelvis Care TeamProvider | | Specialty Phone Fax Service Dates LISSETTE MA PA Physician Credit Support Specialist [phone] | [phone] Nov 07, 2019 - Current Strut PortalThis patient has | | registered at the [facility] Emergency Department For more | | information visit: | | [email or web address] PLEASE | | NOTE: 1. Any care recommendations and other clinical information are provided as | | guidelines or for historical purposes only, and providers should exercise their own | | clinical judgment when providing care. 2. You may only use this information for | | purposes of treatment, payment or health care operations activities, and subject to the | | limitations of applicable Collective Policies. 3. You should consult directly with | | the organization that provided a care guideline or other clinical history with any | | questions about additional information or accuracy or completeness of information | | provided.? 2020 [employer]. - [employer] | |[facility] 2 | |Total 4 | |Note: Visits indicate total known visits. | | | |Recent Emergency Department Visit Summary | |Date Facility [facility] State Type Diagnoses or Chief Complaint | |Nov 21, 2019 [facility] [place] Emergency | | 10,800. AMR 33 | | | |Nov 04, 2019 [facility]. [place] Emergency | | FPC (current) use of opiate analgesic | | Hypothyroidism, unspecified | | Hyperkalemia | | Other [place] [facility] (current[facility] drug therapy | | | |Aug 24, 2019 [facility] [place] Emergency | | 10,800. abnormal labs | | 18,400. Malignant neoplasm of left kidney, except renal pelvis | | 18,400. Wedge compression fracture of second lumbar vertebra, init | | 18,400. Hyperkalemia | | 18,400. Hypercalcemia | | | |Jul 27, 2019 [facility] [place] Emergency | | Other [place] [facility] (current) drug therapy | | Other specified disorders of kidney and ureter | | Low back pain | | Hematuria, unspecified | | | | | | | |Recent Inpatient Visit Summary | |Date Facility [facility] State Type Diagnoses or Chief Complaint | |Aug 24, 2019 [facility] [place] Inpatient | | 18,400. Hyperkalemia | | 18,400. Wedge compression fracture of second lumbar vertebra, init | | 18,400. Hypercalcemia | | 18,400. Malignant neoplasm of left kidney, except renal pelvis | | | | | | | |Care Team | |Provider Specialty Phone Fax Service Dates | |LISSETTE MA PA Physician Credit Support Specialist Nov 07, 2019 - Curr ent | | | |Strut Portal | |This patient has registered at the [facility] and [facility] [place] [facility] | |For more information visit: [email or web address] | |PLEASE NOTE: | | 1. Any care recommendations and other clinical information are provided as guidelines or for historical purposes only, and providers should exercise their own clinical judgment whe n providing care. | | 2. You may only use this information for purposes of treatment, payment or health care o perations activities, and subject to the limitations of applicable Collective Policies. | | 3. You should consult directly with the organization that provided a care guideline or o ther clinical history with any questions about additional information or accuracy or complet eness of information provided. | | | |? 2020 [employer]. - www.[email or web address] | + + + + + + + | Performing | Address | City/State/Zipcode | Phone Number | | Organization | | | | + + + + + | [facility] | [address] | [place], [place] | [phone] | | TECHNOLOGIES | [address] | [address] | | + + + + + TROPONIN I, PLASMA (11/21/2019 8:50 AM PDT) + +-------+ + + + | Component | Value | Ref Range | Performed | Pathologist | | | | | At | Signature | + +-------+ + + + | TROPONIN I | 0.05 | <0.80 ng/mL | [facility] | | | | | [...] | + + + + + | [facility] | [address] | [place] [address] | | | SERVICES, CORE | [address] | | | + + + + + CARDIOLOGY (11/21/2019 12:00 AM PDT) + + + | Narrative | Performed At | + + + | | | + + + CARDIOLOGY (11/21/2019 12:00 AM PDT) + + + | Narrative | Performed At | + + + | | | + + + documented in this encounter Visit Diagnoses + + | Diagnosis | + + | Hypotension, unspecified hypotension type - Primary | + + | JONO (acute kidney injury) (HCC) Acute kidney failure, unspecified | + + | Closed compression fracture of body of L1 vertebra (HCC) | + + | Hyperkalemia Hyperpotassemia | + + | Hypothyroidism, unspecified type | + + | Renal cell carcinoma, unspecified laterality (HCC) | + + | Hyperthyroidism Thyrotoxicosis without mention of goiter or other cause, without | | mention of thyrotoxic crisis or storm | + + | Hypercalcemia of malignancy Hypercalcemia | + + | Closed compression fracture of L2 lumbar vertebra, initial encounter (HCC) | + + | 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) | + + | Elevated blood uric acid level Other abnormal blood chemistry | + + | Normocytic anemia Anemia, unspecified | + + | Adverse drug reaction Unspecified adverse effect of unspecified drug, medicinal and | | biological substance | + + documented in this encounter Administered Medications + +--------+ +--------+------+------+ | Medication Order | MAR | Action | Dose | Rate | Site | | | Action | Date | | | | + +--------+ +--------+------+------+ | acetaminophen (TYLENOL) tablet | Given | 11/28/19 | 500 mg | | | | 500 mg 500 mg, oral, EVERY 8 | | 20 9:16 | | | | | HOURS, First dose (after last | | PM PDT | | | | | modification) on [facility] 11/24/19 at | | | | | | | 1800, Until Discontinued | | | | | | + +--------+ +--------+------+------+ +-------+ +--------+---+---+ | Given | 11/28/19 | 500 mg | | | | | 20 3:09 | | | | | | PM PDT | | | | +-------+ +--------+---+---+ | Given | 11/27/19 | 500 mg | | | | | 20 9:18 | | | | | | PM PDT | | | | +-------+ +--------+---+---+ +---+---+ | | | +---+---+ + +-------+ +--------+---+---+ | acetaminophen (TYLENOL) tablet | Given | 11/23/19 | 650 mg | | | | 650 mg 650 mg, oral, EVERY 6 | | 20 4:23 | | | | | HOURS, First dose on Thu11/23/19 | | PM PDT | | | | | at 1645, Until Discontinued | | | | | | + +-------+ +--------+---+---+ +---+---+ | | | +---+---+ + +-------+ +--------+---+---+ | acetaminophen (TYLENOL) tablet | Given | 11/24/19 | 650 mg | | | | 650 mg 650 mg, oral, EVERY 4 | | 20 10:06 | | | | | HOURS NEEDED, Starting Wed | | AM PDT | | | | | 11/23/19 at 1821, Until Yazmin | | | | | | | 11/24/19 at 1234, mild pain, first | | | | | | | line, multimodal pain control | | | | | | + +-------+ +--------+---+---+ +---+---+ | | | +---+---+ + + + +-------+---+---+ | alteplase (ACTIVASE) IV bolus | Bolus | 11/24/19 | 10 mg | | | | from continuous infusion 10 mg | from | 20 12:51 | | | | | 10 mg, intravenous, ONCE, 1 dose, | Same Bag | AM PDT | | | | | 11/23/19 at 2315 | | | | | | + + + +-------+---+---+ +---+---+ | | | +---+---+ + +---------+ +-------+ +---+ | alteplase (ACTIVASE) IV | New Bag | 11/24/19 | 90 mg | 45 mL/hr | | | infusion 90 mg 90 mg, | | 20 12:56 | | | | | intravenous, ONCE, 1 dose, Wed | | AM PDT | | | | | 11/23/19 at 2315 | | | | | | + +---------+ +-------+ +---+ +---+---+ | | | +---+---+ + +-------+ +-------+---+---+ | atorvastatin (LIPITOR) tablet | Given | 11/28/19 | 20 mg | | | | 20 mg 20 mg, oral, EVERY | | 20 9:16 | | | | | EVENING, First dose on Mon | | PM PDT | | | | | 11/21/19 at 2100, Until | | | | | | | Discontinued | | | | | | + +-------+ +-------+---+---+ +-------+ +-------+---+---+ | Given | 11/27/19 | 20 mg | | | | | 20 9:18 | | | | | | PM PDT | | | | +-------+ +-------+---+---+ | Given | 11/26/19 | 20 mg | | | | | 20 9:31 | | | | | | PM PDT | | | | +-------+ +-------+---+---+ +---+---+ | | | +---+---+ + +---------+ +-----+---+---+ | calcium gluconate IV 1 gram in | New Bag | 11/22/19 | 1 g | | | | NS (PREMADE) 1 g, intravenous, | | 20 6:34 | | | | | ONCE, 1 dose, 11/22/19 at 0630 | | AM PDT | | | | + +---------+ +-----+---+---+ +---+---+ | | | +---+---+ + +-------+ +-----+---+---+ | cholestyramine (with sugar) | Given | 11/24/19 | 4 g | | | | (QUESTRAN) packet 4 g 4 g, oral, | | 20 6:40 | | | | | DAILY, First dose on Thu11/24/19 | | PM PDT | | | | | at 1200, Until Discontinued | | | | | | + +-------+ +-----+---+---+ +---+---+ | | | +---+---+ + +-------+ +-----+---+---+ | cholestyramine-aspartame | Given | 11/22/19 | 4 g | | | | (QUESTRAN LIGHT) packet 4 g 4 g, | | 20 8:34 | | | | | oral, FOUR TIMES DAILY, First | | AM PDT | | | | | dose on Thu11/21/19 at 2200, | | | | | | | Until Discontinued | | | | | | + +-------+ +-----+---+---+ +-------+ +-----+---+---+ | Given | 11/21/19 | 4 g | | | | | 20 11:42 | | | | | | PM PDT | | | | +-------+ +-----+---+---+ +---+---+ | | | +---+---+ + +-------+ +-----+---+---+ | cholestyramine-aspartame | Given | 11/23/19 | 4 g | | | | (QUESTRAN LIGHT) packet 4 g 4 g, | | 20 9:30 | | | | | oral, DAILY, First dose (after | | AM PDT | | | | | last modification) on Thu11/23/19 | | | | | | | at 0900, Until Discontinued | | | | | | + +-------+ +-----+---+---+ +---+---+ | | | +---+---+ + +-------+ +---------+---+---+ | cosyntropin (CORTROSYN) | Given | 11/29/19 | 0.25 mg | | | | injection 0.25 mg 0.25 mg, | | 20 5:42 | | | | | intravenous, ONCE, 1 dose, Tue | | AM PDT | | | | | 11/29/19 at 0500 | | | | | | + +-------+ +---------+---+---+ +---+---+ | | | +---+---+ + +-------+ +-------+---+---+ | dextrose 50 % in water IV 50 mL | Given | 11/22/19 | 50 mL | | | | 50 mL, intravenous, ONCE, 1 | | 20 6:24 | | | | | dose, 11/22/19 at 0630 | | AM PDT | | | | + +-------+ +-------+---+---+ +---+---+ | | | +---+---+ + +-------+ +-------+---+---+ | dextrose 50 % in water IV 50 mL | Given | 11/22/19 | 50 mL | | | | 50 mL, intravenous, ONCE, | | 20 4:33 | | | | | dose, Salinase 11/22/19 at 1700 | | PM PDT | | | | + +-------+ +-------+---+---+ +---+---+ | | | +---+---+ + +-------+ +-------+---+---+ | dextrose 50 % in water IV 50 mL | Given | 11/23/19 | 50 mL | | | | 50 mL, intravenous, ONCE, 1 | | 20 8:36 | | | | | dose, Michael 11/23/19 at 2030 | | PM PDT | | | | + +-------+ +-------+---+---+ +---+---+ | | | +---+---+ + +-------+ +-------+---+---------+ | enoxaparin (LOVENOX) injection | Given | 11/29/19 | 80 mg | | Abdomen | | 80 mg 80 mg, subcutaneous, EVERY | | 20 8:23 | | | | | 12 HOURS, First dose (after last | | AM PDT | | | | | modification) on Thu11/28/19 at | | | | | | | 0300, Until Discontinued | | | | | | + +-------+ +-------+---+---------+ +-------+ +-------+---+---------+ | Given | 11/28/19 | 80 mg | | Abdomen | | | 20 3:09 | | | | | | PM PDT | | | | +-------+ +-------+---+---------+ | Given | 11/28/19 | 80 mg | | Abdomen | | | 20 2:57 | | | | | | AM PDT | | | | +-------+ +-------+---+---------+ +---+---+ | | | +---+---+ + +-------+ +-------+---+---------+ | enoxaparin (LOVENOX) injection | Given | 11/27/19 | 90 mg | | Abdomen | | 90 mg 90 mg (rounded from 85 mg | | 20 3:24 | | | | | = 1 mg/kg | | PM PDT | | | | | 85 kg), subcutaneous, EVERY 24 | | | | | | | HOURS, First dose on 11/26/19 | | | | | | | at 1200, Until Discontinued | | | | | | + +-------+ +-------+---+---------+ +-------+ +-------+---+---------+ | Given | 11/26/19 | 90 mg | | Abdomen | | | 20 3:31 | | | | | | PM PDT | | | | +-------+ +-------+---+---------+ +---+---+ | | | +---+---+ + +-------+ +-------+---+---+ | furosemide (LASIX) injection 20 | Given | 11/25/19 | 20 mg | | | | mg 20 mg, intravenous, ONCE, 1 | | 20 3:12 | | | | | dose, Thu11/25/19 at 1230 | | PM PDT | | | | + +-------+ +-------+---+---+ +---+---+ | | | +---+---+ + +-------+ +-------+---+---+ | furosemide (LASIX) injection 20 | Given | 11/27/19 | 20 mg | | | | mg 20 mg, intravenous, ONCE, 1 | | 20 11:37 | | | | | dose, Laureen 11/27/19 at 1215 | | AM PDT | | | | + +-------+ +-------+---+---+ +---+---+ | | | +---+---+ + +-------+ +-------+---+---+ | furosemide (LASIX) injection 40 | Given | 11/25/19 | 40 mg | | | | mg 40 mg, intravenous, ONCE, 1 | | 20 8:36 | | | | | dose, Ania 11/25/19 at 1830 | | PM PDT | | | | + +-------+ +-------+---+---+ +---+---+ | | | +---+---+ + +-------+ +-------+---+---+ | furosemide (LASIX) injection 40 | Given | 11/26/19 | 40 mg | | | | mg 40 mg, intravenous, ONCE, 1 | | 20 10:42 | | | | | dose, 11/26/19 at 1015 | | AM PDT | | | | + +-------+ +-------+---+---+ +---+---+ | | | +---+---+ + + + +--------+---+---+ | heparin bolus from continuous | Bolus | 11/23/19 | 8,500 | | | | infusion 8,500 Units | from | 20 6:31 | Units | | | | intravenous, ONCE, 1 dose, Wed | Same Bag | PM PDT | | | | | 11/23/19 at 1845 | | | | | | + + + +--------+---+---+ +---+---+ | | | +---+---+ + + + + +-------+---+ | heparin in D5W 25,000 Units/250 | Rate/Dos | 11/24/19 | 1,550 | 15.5 | | | mL (100 Units/mL) IV infusion | e Verify | 20 12:00 | Units/hr | mL/hr | | | (RTU) 1-2,500 Units/hr (0.01-25 | | AM PDT | | | | | mL/hr), intravenous, CONTINUOUS, | | | | | | | Starting Thu11/23/19 at 1845, | | | | | | | Until Thu11/23/19 at 2234 | | | | | | + + + + +-------+---+ + + + +-------+---+ | Rate/Dose Verify | 11/23/19 | 1,550 | 15.5 | | | | 20 11:00 | Units/hr | mL/hr | | | | PM PDT | | | | + + + +-------+---+ | Rate/Dose Verify | 11/23/19 | 1,550 | 15.5 | | | | 20 10:00 | Units/hr | mL/hr | | | | PM PDT | | | | + + + +-------+---+ +---+---+ | | | +---+---+ + + + + +-------+---+ | heparin in D5W 25,000 Units/250 | Rate/Dos | 11/26/19 | 750 | 7.5 | | | mL (100 Units/mL) IV infusion | e Verify | 20 8:00 | Units/hr | mL/hr | | | (RTU) 1-2,500 Units/hr (0.01-25 | | AM PDT | | | | | mL/hr), intravenous, CONTINUOUS, | | | | | | | Starting Yazmin 11/24/19 at 1245, | | | | | | | Until 11/26/19 at 1004 | | | | | | + + + + +-------+---+ + + + +-------+---+ | Rate/Dose Verify | 11/26/19 | 750 | 7.5 | | | | 20 4:00 | Units/hr | mL/hr | | | | AM PDT | | | | + + + +-------+---+ | Rate/Dose Change | 11/26/19 | 750 | 7.5 | | | | 20 1:35 | Units/hr | mL/hr | | | | AM PDT | | | | + + + +-------+---+ +---+---+ | | | +---+---+ + +-------+ +--------+---+---------+ | heparin injection 5,000 Units | Given | 11/23/19 | 5,000 | | Abdomen | | 5,000 Units, subcutaneous, EVERY | | 20 9:04 | Units | | | | 12 HOURS, First dose on Tue | | AM PDT | | | | | 11/22/19 at 2100, Until | | | | | | | Discontinued | | | | | | + +-------+ +--------+---+---------+ +-------+ +--------+---+---------+ | Given | 11/22/19 | 5,000 | | Abdomen | | | 20 10:11 | Units | | | | | PM PDT | | | | +-------+ +--------+---+---------+ +---+---+ | | | +---+---+ + +-------+ +-------+---+---+ | hydrocortisone (CORTEF) tablet | Given | 11/28/19 | 20 mg | | | | 20 mg 20 mg, oral, TWICE DAILY, | | 20 8:35 | | | | | 2 doses, First dose on Thu | | AM PDT | | | | | 11/28/19 at 0900, Last dose on Thu | | | | | | | 11/28/19 at 2100 | | | | | | + +-------+ +-------+---+---+ +---+---+ | | | +---+---+ + +-------+ +-------+---+---+ | hydrocortisone (CORTEF) tablet | Given | 11/29/19 | 20 mg | | | | 20 mg 20 mg, oral, DAILY, First | | 20 9:42 | | | | | dose on 11/29/19 at 0900, | | AM PDT | | | | | Until Discontinued | | | | | | + +-------+ +-------+---+---+ +---+---+ | | | +---+---+ + +-------+ +-------+---+---+ | hydrocortisone (CORTEF) tablet | Given | 11/27/19 | 30 mg | | | | 30 mg 30 mg, oral, TWICE DAILY, | | 20 9:17 | | | | | 2 doses, First dose on Sun | | PM PDT | | | | | 11/27/19 at 0900, Last dose on Sun | | | | | | | 11/27/19 at 2100 | | | | | | + +-------+ +-------+---+---+ +-------+ +-------+---+---+ | Given | 11/27/19 | 30 mg | | | | | 20 8:21 | | | | | | AM PDT | | | | +-------+ +-------+---+---+ +---+---+ | | | +---+---+ + +-------+ +-------+---+---+ | hydrocortisone (CORTEF) tablet | Given | 11/26/19 | 40 mg | | | | 40 mg 40 mg, oral, TWICE DAILY, | | 20 9:30 | | | | | 1 dose, First dose (after last | | PM PDT | | | | | modification) on 11/26/19 at | | | | | | | 2100 | | | | | | + +-------+ +-------+---+---+ +---+---+ | | | +---+---+ + +-------+ +--------+---+---+ | hydrocortisone sodium succinate | Given | 11/22/19 | 100 mg | | | | (PF) (SOLU-CORTTWAN) injection 100 | | 20 11:21 | | | | | mg 100 mg, intravenous, EVERY 8 | | AM PDT | | | | | HOURS, First dose on 11/21/19 | | | | | | | at 1900, Until Discontinued | | | | | | + +-------+ +--------+---+---+ +-------+ +--------+---+---+ | Given | 11/22/19 | 100 mg | | | | | 20 3:43 | | | | | | AM PDT | | | | +-------+ +--------+---+---+ | Given | 11/21/19 | 100 mg | | | | | 20 7:58 | | | | | | PM PDT | | | | +-------+ +--------+---+---+ +---+---+ | | | +---+---+ + +-------+ +--------+---+---+ | hydrocortisone sodium succinate | Given | 11/22/19 | 100 mg | | | | (PF) (SOLU-CORTEF) injection 100 | | 20 10:11 | | | | | mg 100 mg, intravenous, EVERY | | PM PDT | | | | | 12 HOURS, 1 dose, First dose | | | | | | | (after last modification) on Tu | | | | | | | 11/22/19 at 2100 | | | | | | + +-------+ +--------+---+---+ +---+---+ | | | +---+---+ + +-------+ +--------+---+---+ | hydrocortisone sodium succinate | Given | 11/23/19 | 100 mg | | | | (PF) (SOLU-CORTEF) injection 100 | | 20 9:00 | | | | | mg 100 mg, intravenous, ONCE, 1 | | PM PDT | | | | | dose, 11/23/19 at 2130 | | | | | | + +-------+ +--------+---+---+ +---+---+ | | | +---+---+ + +-------+ +--------+---+---+ | hydrocortisone sodium succinate | Given | 11/24/19 | 100 mg | | | | (PF) (SOLU-CORTEF) injection 100 | | 20 1:41 | | | | | mg 100 mg, intravenous, EVERY 8 | | PM PDT | | | | | HOURS, First dose (after last | | | | | | | modification) on Yazmin 11/24/19 at | | | | | | | 0600, Until Discontinued | | | | | | + +-------+ +--------+---+---+ +-------+ +--------+---+---+ | Given | 11/24/19 | 100 mg | | | | | 20 6:00 | | | | | | AM PDT | | | | +-------+ +--------+---+---+ +---+---+ | | | +---+---+ + +-------+ +-------+---+---+ | hydrocortisone sodium succinate | Given | 11/23/19 | 50 mg | | | | (PF) (SOLU-CORTEF) injection 50 | | 20 9:04 | | | | | mg 50 mg, intravenous, EVERY 12 | | AM PDT | | | | | HOURS, First dose on Thu11/23/19 | | | | | | | at 0900, Until Discontinued | | | | | | + +-------+ +-------+---+---+ +---+---+ | | | +---+---+ + +-------+ +-------+---+---+ | hydrocortisone sodium succinate | Given | 11/25/19 | 50 mg | | | | (PF) (SOLU-CORTEF) injection 50 | | 20 6:07 | | | | | mg 50 mg, intravenous, EVERY 8 | | AM PDT | | | | | HOURS, First dose (after last | | | | | | | modification) on Thu11/24/19 at | | | | | | | 2200, Until Discontinued | | | | | | + +-------+ +-------+---+---+ +-------+ +-------+---+---+ | Given | 11/24/19 | 50 mg | | | | | 20 10:07 | | | | | | PM PDT | | | | +-------+ +-------+---+---+ +---+---+ | | | +---+---+ + +-------+ +-------+---+---+ | hydrocortisone sodium succinate | Given | 11/26/19 | 50 mg | | | | (PF) (SOLU-CORTEF) injection 50 | | 20 9:02 | | | | | mg 50 mg, intravenous, EVERY 12 | | AM PDT | | | | | HOURS, First dose (after last | | | | | | | modification) on Thu11/25/19 at | | | | | | | 2100, Until Discontinued | | | | | | + +-------+ +-------+---+---+ +-------+ +-------+---+---+ | Given | 11/25/19 | 50 mg | | | | | 20 8:36 | | | | | | PM PDT | | | | +-------+ +-------+---+---+ +---+---+ | | | +---+---+ + +-------+ +--------+---+---+ | HYDROmorphone (DILAUDID) | Given | 11/25/19 | 0.5 mg | | | | injection 0.2-0.5 mg 0.2-0.5 mg, | | 20 5:55 | | | | | intravenous, EVERY 2 HOURS | | PM PDT | | | | | NEEDED, Starting Thu11/23/19 at | | | | | | | 1849, Until 11/28/19 at 1155, | | | | | | | severe pain | | | | | | + +-------+ +--------+---+---+ +-------+ +--------+---+---+ | Given | 11/25/19 | 0.5 mg | | | | | 20 6:06 | | | | | | AM PDT | | | | +-------+ +--------+---+---+ | Given | 11/25/19 | 0.2 mg | | | | | 20 4:06 | | | | | | AM PDT | | | | +-------+ +--------+---+---+ +---+---+ | | | +---+---+ + +-------+ + +---+---+ | insulin regular (HUMULIN R) | Given | 11/22/19 | 10 Units | | | | injection 10 Units 10 Units, | | 20 6:29 | | | | | intravenous, ONCE, 1 dose, Tue | | AM PDT | | | | | 11/22/19 at 0630 | | | | | | + +-------+ + +---+---+ +---+---+ | | | +---+---+ + +-------+ + +---+---+ | insulin regular (HUMULIN R) | Given | 11/22/19 | 10 Units | | | | injection 10 Units 10 Units, | | 20 4:38 | | | | | intravenous, ONCE, 1 dose, Tue | | PM PDT | | | | | 11/22/19 at 1700 | | | | | | + +-------+ + +---+---+ +---+---+ | | | +---+---+ + +-------+ +---------+---+---+ | insulin regular (HUMULIN R) | Given | 11/23/19 | 5 Units | | | | injection 5 Units 5 Units, | | 20 8:36 | | | | | intravenous, ONCE, 1 dose, Wed | | PM PDT | | | | | 11/23/19 at 2030 | | | | | | + +-------+ +---------+---+---+ +---+---+ | | | +---+---+ + +---------+ +--------+---+---+ | iohexoL (OMNIPAQUE) 350 mg | IV Push | 11/23/19 | 100 mL | | | | iodine/mL injection 100 mL 100 | | 20 9:36 | | | | | mL, intravenous, PROCEDURE ONCE, | | PM PDT | | | | | 1 dose, 11/23/19 at 2200 | | | | | | + +---------+ +--------+---+---+ +---+---+ | | | +---+---+ + +---------+ + +---+---+ | lactated ringers (LR) bolus | New Bag | 11/21/19 | 1,000 mL | | | | 1,000 mL 1,000 mL, intravenous, | | 20 3:53 | | | | | ONCE, 1 dose, 11/21/19 at 1600 | | PM PDT | | | | + +---------+ + +---+---+ +---+---+ | | | +---+---+ + +---------+ + +---+---+ | lactated ringers (LR) bolus | New Bag | 11/22/19 | 1,000 mL | | | | 1,000 mL 1,000 mL, intravenous, | | 20 6:00 | | | | | ONCE, 1 dose, 11/22/19 at 0630 | | AM PDT | | | | + +---------+ + +---+---+ +---+---+ | | | +---+---+ + +---------+ + +---+---+ | lactated ringers (LR) bolus | New Bag | 11/22/19 | 1,000 mL | | | | 1,000 mL 1,000 mL, intravenous, | | 20 5:29 | | | | | ONCE, 1 dose, 11/22/19 at 1800 | | PM PDT | | | | + +---------+ + +---+---+ +---+---+ | | | +---+---+ + +---------+ + +---+---+ | lactated ringers (LR) bolus | New Bag | 11/23/19 | 1,000 mL | | | | 1,000 mL 1,000 mL, intravenous, | | 20 8:52 | | | | | ONCE, 1 dose, 11/23/19 at 2115 | | PM PDT | | | | + +---------+ + +---+---+ +---+---+ | | | +---+---+ + +---------+ + +---+---+ | lactated ringers (LR) bolus | New Bag | 11/23/19 | 1,500 mL | | | | 1,500 mL 1,500 mL, intravenous, | | 20 7:45 | | | | | ONCE, 1 dose, 11/23/19 at 2045 | | PM PDT | | | | + +---------+ + +---+---+ +---+---+ | | | +---+---+ + +---------+ +--------+---+---+ | lactated ringers (LR) bolus 250 | New Bag | 11/26/19 | 250 mL | | | | mL 250 mL, intravenous, ONCE, 1 | | 20 11:15 | | | | | dose, 11/26/19 at 2345 | | PM PDT | | | | + +---------+ +--------+---+---+ +---+---+ | | | +---+---+ + +---------+ +--------+---+---+ | lactated ringers (LR) bolus 500 | New Bag | 11/23/19 | 500 mL | | | | mL 500 mL, intravenous, ONCE, 1 | | 20 7:35 | | | | | dose, 11/23/19 at 1945 | | PM PDT | | | | + +---------+ +--------+---+---+ +---+---+ | | | +---+---+ + +---------+ +--------+-------+---+ | lactated ringers (LR) bolus 500 | New Bag | 11/25/19 | 500 mL | 999 | | | mL 500 mL, intravenous, ONCE, 1 | | 20 9:31 | | mL/hr | | | dose, Ania 11/25/19 at 2200 | | PM PDT | | | | + +---------+ +--------+-------+---+ +---+---+ | | | +---+---+ + +---------+ +--------+---+---+ | lactated ringers (LR) bolus 500 | New Bag | 11/25/19 | 500 mL | | | | mL 500 mL, intravenous, ONCE, 1 | | 20 10:30 | | | | | dose, Ania 11/25/19 at 2245 | | PM PDT | | | | + +---------+ +--------+---+---+ +---+---+ | | | +---+---+ + + + +---------+---+ + | lidocaine (LIDODERM) 5 % patch | Applied | 11/28/19 | 1 patch | | Midline | | 1 patch 1 patch, transdermal, | Patch | 20 10:52 | | | Back | | EVERY 24 HOURS, First dose on Tue | | PM PDT | | | | | 11/22/19 at 0015, Until | | | | | | | Discontinued | | | | | | + + + +---------+---+ + + + +---------+---+--------+ | Applied Patch | 11/28/19 | 1 patch | | Right | | | 20 12:06 | | | Lower | | | AM PDT | | | Back | + + +---------+---+--------+ | Applied Patch | 11/27/19 | 1 patch | | Left | | | 20 12:13 | | | Lower | | | AM PDT | | | Back | + + +---------+---+--------+ +---+---+ | | | +---+---+ + +-------+ +---+---+---+ | lidocaine PF (XYLOCAINE MPF) 20 | Given | 11/23/19 | | | | | mg/mL (2 %) injection 1 dose, | | 20 7:40 | | | | | Starting Thu11/23/19 at 1905, | | PM PDT | | | | | Until Thu11/23/19 at 1940 | | | | | | + +-------+ +---+---+---+ +---+---+ | | | +---+---+ + +-------+ +------+---+---+ | melatonin tablet 3 mg 3 mg, | Given | 11/21/19 | 3 mg | | | | oral, AT BEDTIME NEEDED, | | 20 11:33 | | | | | Starting 11/21/19 at 2004, | | PM PDT | | | | | Until 11/29/19 at 1720, | | | | | | | insomnia | | | | | | + +-------+ +------+---+---+ +---+---+ | | | +---+---+ + + + + +-------+---+ | norepinephrine (LEVOPHED) | Rate/Dos | 11/25/19 | 0.04 | 6.38 | | | 8mg/250 mL (0.032 mg/mL) IV | e Verify | 20 11:45 | mcg/kg/m | mL/hr | | | infusion (ADC) 0.02-0.2 | | AM PDT | in | | | | mcg/kg/min | | | | | | | 85 kg (3.1875-31.875 mL/hr, | | | | | | | rounded to 3.19-31.88 mL/hr), | | | | | | | intravenous, CONTINUOUS, Starting | | | | | | | 11/23/19 at 1915, Until Fri | | | | | | | 11/25/19 at 1154 | | | | | | + + + + +-------+---+ + + + +-------+---+ | Rate/Dose Change | 11/25/19 | 0.02 | 3.19 | | | | 20 11:05 | mcg/kg/m | mL/hr | | | | AM PDT | in | | | + + + +-------+---+ | Rate/Dose Verify | 11/25/19 | 0.04 | 6.38 | | | | 20 11:00 | mcg/kg/m | mL/hr | | | | AM PDT | in | | | + + + +-------+---+ +---+---+ | | | +---+---+ + + + + +-------+---+ | norepinephrine (LEVOPHED) | Rate/Dos | 11/26/19 | 0.02 | 3.19 | | | 8mg/250 mL (0.032 mg/mL) IV | e Change | 20 5:02 | mcg/kg/m | mL/hr | | | infusion (ADC) 0.02-0.2 | | AM PDT | in | | | | mcg/kg/min | | | | | | | 85 kg (3.1875-31.875 mL/hr, | | | | | | | rounded to 3.19-31.88 mL/hr), | | | | | | | intravenous, CONTINUOUS, Starting | | | | | | | 11/25/19 at 1200, Until Sat | | | | | | | 11/26/19 at 1418 | | | | | | + + + + +-------+---+ + + + +-------+---+ | Rate/Dose Verify | 11/26/19 | 0.04 | 6.38 | | | | 20 4:00 | mcg/kg/m | mL/hr | | | | AM PDT | in | | | + + + +-------+---+ | Rate/Dose Change | 11/26/19 | 0.04 | 6.38 | | | | 20 3:20 | mcg/kg/m | mL/hr | | | | AM PDT | in | | | + + + +-------+---+ + +---+ | | | + +---+ | norepinephrine IV infusion 1 | | | dose, Starting Thu11/23/19 at | | | 1819, Until Thu11/23/19 at 1820 | | + +---+ | | | + +---+ + +-------+ +-------+---+---+ | omeprazole (PRILOSEC) capsule | Given | 11/29/19 | 20 mg | | | | 20 mg 20 mg, oral, TWICE DAILY, | | 20 8:22 | | | | | First dose on 11/21/19 at | | AM PDT | | | | | 2100, Until Discontinued | | | | | | + +-------+ +-------+---+---+ +-------+ +-------+---+---+ | Given | 11/28/19 | 20 mg | | | | | 20 9:16 | | | | | | PM PDT | | | | +-------+ +-------+---+---+ | Given | 11/28/19 | 20 mg | | | | | 20 8:35 | | | | | | AM PDT | | | | +-------+ +-------+---+---+ +---+---+ | | | +---+---+ + +-------+ +------+---+---+ | ondansetron (ZOFRAN) injection | Given | 11/25/19 | 4 mg | | | | 4 mg 4 mg, intravenous, EVERY 12 | | 20 6:23 | | | | | HOURS NEEDED, Starting Tue | | AM PDT | | | | | 11/22/19 at 0848, Until Tue | | | | | | | 11/29/19 at 1720, nausea/vomiting, | | | | | | | first line | | | | | | + +-------+ +------+---+---+ +-------+ +------+---+---+ | Given | 11/23/19 | 4 mg | | | | | 20 8:13 | | | | | | PM PDT | | | | +-------+ +------+---+---+ | Given | 11/22/19 | 4 mg | | | | | 20 9:02 | | | | | | AM PDT | | | | +-------+ +------+---+---+ +---+---+ | | | +---+---+ + +-------+ +------+---+---+ | ondansetron (ZOFRAN) injection | Given | 11/23/19 | 4 mg | | | | 4 mg 4 mg, intravenous, ONCE, 1 | | 20 10:06 | | | | | dose, 11/23/19 at 2230 | | PM PDT | | | | + +-------+ +------+---+---+ +---+---+ | | | +---+---+ + +-------+ +------+---+---+ | oxyCODONE (immediate release) | Given | 11/23/19 | 5 mg | | | | (ROXICODONE) tablet 5 mg 5 mg, | | 20 2:51 | | | | | oral, EVERY 4 HOURS NEEDED, | | PM PDT | | | | | Starting 11/21/19 at 1703, | | | | | | | Until 11/23/19 at 2251, | | | | | | | moderate pain | | | | | | + +-------+ +------+---+---+ +-------+ +------+---+---+ | Given | 11/23/19 | 5 mg | | | | | 20 9:53 | | | | | | AM PDT | | | | +-------+ +------+---+---+ | Given | 11/22/19 | 5 mg | | | | | 20 7:27 | | | | | | PM PDT | | | | +-------+ +------+---+---+ +---+---+ | | | +---+---+ + +-------+ +------+---+---+ | oxyCODONE (immediate release) | Given | 11/29/19 | 5 mg | | | | (ROXICODONE) tablet 5-10 mg 5-10 | | 20 8:22 | | | | | mg, oral, EVERY 4 HOURS | | AM PDT | | | | | NEEDED, Starting Yazmin 11/24/19 at | | | | | | | 1032, Until e 11/29/19 at 1720, | | | | | | | moderate pain | | | | | | + +-------+ +------+---+---+ +-------+ +------+---+---+ | Given | 11/28/19 | 5 mg | | | | | 20 9:16 | | | | | | PM PDT | | | | +-------+ +------+---+---+ | Given | 11/28/19 | 5 mg | | | | | 20 3:09 | | | | | | PM PDT | | | | +-------+ +------+---+---+ +---+---+ | | | +---+---+ + +-------+ +------+---+---+ | polyethylene glycol (MIRALAX) | Given | 11/28/19 | 17 g | | | | packet 17 g 17 g, oral, TWICE | | 20 8:36 | | | | | DAILY, First dose (after last | | AM PDT | | | | | modification) on [facility] 11/24/19 at | | | | | | | 2200, Until Discontinued | | | | | | + +-------+ +------+---+---+ +-------+ +------+---+---+ | Given | 11/27/19 | 17 g | | | | | 20 11:37 | | | | | | AM PDT | | | | +-------+ +------+---+---+ | Given | 11/24/19 | 17 g | | | | | 20 10:07 | | | | | | PM PDT | | | | +-------+ +------+---+---+ +---+---+ | | | +---+---+ + +-------+ +--------+---+---+ | propylthiouraciL (PTU) tablet | Given | 11/21/19 | 200 mg | | | | 200 mg 200 mg, oral, ONCE, 1 | | 20 7:18 | | | | | dose, 11/21/19 at 1900 | | PM PDT | | | | + +-------+ +--------+---+---+ +---+---+ | | | +---+---+ + + + +---------+---+ + | scopolamine (TRANSDERM-SCOP) 1 | Applied | 11/29/19 | 1 patch | | Right | | mg over 3 days 1 patch 1 patch, | Patch | 20 7:50 | | | Post | | transdermal, ONCE, 1 dose, Tue | | AM PDT | | | Auricula | | 11/29/19 at 0500 | | | | | r | + + + +---------+---+ + +---+---+ | | | +---+---+ + +-------+ + +---+---+ | senna-docusate (SENOKOT S) | Given | 11/28/19 | 1 tablet | | | | 8.6-50 mg 1 tablet 1 tablet, | | 20 8:35 | | | | | oral, TWICE DAILY, First dose on | | AM PDT | | | | | 11/21/19 at 2145, Until | | | | | | | Discontinued | | | | | | + +-------+ + +---+---+ +-------+ + +---+---+ | Given | 11/27/19 | 1 tablet | | | | | 20 9:18 | | | | | | PM PDT | | | | +-------+ + +---+---+ | Given | 11/26/19 | 1 tablet | | | | | 20 9:30 | | | | | | PM PDT | | | | +-------+ + +---+---+ +---+---+ | | | +---+---+ + +---------+ +-------+---+---+ | sodium chloride (NS) 0.9 % | New Bag | 11/24/19 | 50 mL | | | | bolus 50 mL 50 mL, intravenous, | | 20 2:33 | | | | | ONCE, 1 dose, 11/23/19 at 2315 | | AM PDT | | | | + +---------+ +-------+---+---+ +---+---+ | | | +---+---+ + +-------+ +------+---+---+ | sodium zirconium (LOKELMA) 10 g | Given | 11/22/19 | 10 g | | | | oral powder 10 g, oral, ONCE, 1 | | 20 7:50 | | | | | dose, 11/22/19 at 1900 | | PM PDT | | | | + +-------+ +------+---+---+ +---+---+ | | | +---+---+ + +-------+ +------+---+---+ | sodium zirconium (LOKELMA) 10 g | Given | 11/24/19 | 10 g | | | | oral powder 10 g, oral, THREE | | 20 8:15 | | | | | TIMES DAILY, 6 doses, First dose | | PM PDT | | | | | on Yazmin 11/24/19 at 1100, Last dose | | | | | | | on Thu11/25/19 at 2200 | | | | | | + +-------+ +------+---+---+ +-------+ +------+---+---+ | Given | 11/24/19 | 10 g | | | | | 20 4:08 | | | | | | PM PDT | | | | +-------+ +------+---+---+ | Given | 11/24/19 | 10 g | | | | | 20 12:00 | | | | | | PM PDT | | | | +-------+ +------+---+---+ +---+---+ | | | +---+---+ + +---------+ +------+---+---+ | sulfur hexafluoride | IV Push | 11/22/19 | 5 mL | | | | microspheres (LUMASON) IV 1-2 mL | | 20 10:07 | | | | | 1-2 mL, intravenous, ONCE, 1 | | AM PDT | | | | | dose, Merissa 11/22/19 at 1045 | | | | | | + +---------+ +------+---+---+ +---+---+ | | | +---+---+ + + + + +---------+---+ | vasopressin 20 Units/100 mL | Rate/Dos | 11/24/19 | 0.02 | 6 mL/hr | | | (0.2 Unit/mL) in NS IV infusion | e Change | 20 10:53 | Units/mi | | | | (RTU) 0.03 Units/min (9 mL/hr), | | AM PDT | n | | | | intravenous, CONTINUOUS, Starting | | | | | | | 11/23/19 at 2115, Until Yazmin | | | | | | | 11/24/19 at 2104 | | | | | | + + + + +---------+---+ + + + +---------+---+ | Rate/Dose Verify | 11/24/19 | 0.03 | 9 mL/hr | | | | 20 10:00 | Units/mi | | | | | AM PDT | n | | | + + + +---------+---+ | Rate/Dose Verify | 11/24/19 | 0.03 | 9 mL/hr | | | | 20 8:00 | Units/mi | | | | | AM PDT | n | | | + + + +---------+---+ + +---+ | | | + +---+ | vasopressin IV infusion 1 | | | dose, Starting Thu11/23/19 at | | | 2046, Until Thu11/23/19 at 2052 | | + +---+ | | | + +---+ documented in this encounter
--- OUTSIDE RECORDS SUMMARY | ~2020-06-29 | XMS | Encounter Summary ---
Demographics + + + | Address | [address] | | | [place] [address] | + + + | Home Phone | | + + + | Preferred Language | Unknown | + + + | Marital Status | Single | + + + | Cheondoism Affiliation | CHR | + + + | Race | White | + + + | Ethnic Group | Not or | + + + Author + + + | Author | [facility] | + + + | Organization | [facility] | + + + | Address | Unknown | + + + | Phone | Unavailable | + + + Support + + +---------+ + | Name | Relationship | Address | Phone | + + +---------+ + | William Talavera | ECON | Unknown | | + + +---------+ + Care Team Providers + +------+ + | Care Inbound Telemarketer Name | Role | Phone | + +------+ + | Lissette Martinez PA-C | PCP | | + +------+ + Encounter Details +--------+ + + + + | Date | Type | Department | Care Team | Description | +--------+ + + + + | 05/06/ | Telephone | [facility] | Flavia Bailon MD | | | 2020 | | Clinics at S | [address] | | | | | [address] | [place], | | | | | [facility] | [place] [address] | | | | | Health and Healing, | [phone] | | | | | [address] | | | | | | [place], [place] | | | | | | [address] | | | | | | [phone] | | | +--------+ + + + [...]
--- OUTSIDE RECORDS SUMMARY | ~2020-06-29 | XMS | Encounter Summary ---
Demographics + + + | Address | [address] | | | [place] [address] | + + + | Home Phone | | + + + | Preferred Language | Unknown | + + + | Marital Status | Single | + + + | Episcopal Affiliation | CHR | + + + | Race | White | + + + | Ethnic Group | Not or | + + + Author + + + | Author | [facility] | + + + | Organization | [facility] | + + + | Address | Unknown | + + + | Phone | Unavailable | + + + Support + + +---------+ + | Name | Relationship | Address | Phone | + + +---------+ + | William Talavera | ECON | Unknown | | + + +---------+ + Care Team Providers + +------+ + | Care Program Therapist Name | Role | Phone | + +------+ + | Lissette Martinez PA-C | PCP | | + +------+ + Reason for Visit + + + | Reason | Comments | + + + | Medication | | | Administration | | + + + | Chemotherapy | | + + + Chemotherapy (Routine) + +---------+ + + + + | [...] | | | carcinoma of | [place] [address] | [address] | | | | | left kidney | [place] [address] | | | | | (HCC) | Ct | [facility] | | | | | Procedures | [place], | [facility] and | | | | | [place] INJ | [place] | Healing, | | | | | [address] | [address] | [address] | | | | | [place] | Phone: | [place], [place] | | | | | CH[facility],IV | [phone] | [address] | | | | | INFSN,1 [place] | Fax: | Phone: | | | | | [place] [facility],[place] | [phone] | [phone] | | | | | INFSN,ADDL | | Fax: | | | | | [place] | | [phone] | | | | | nivolumab | | | | | | | (OPDIVO) 480 | | | | | | | mg in | | | | | | | sodium | | | | | | | chloride | | | | | | | (NS) 0.9 % | | | | | | | IV q 28 | | | | | | | days | | | + +---------+ + + + + Encounter Details +--------+ + + + + | Date | Type | Department | Care Team | Description | +--------+ + + + + | 01/08/ | Hospital | [facility] | [address] | | | 2020 | Encounter | Clinics at S | [address] [place], [place] | | | | | [address] | [address] | | | | | [address] [facility] | | | | | | Health and Healing, | | | | | | [address] | | | | | | [place], [place] | | | | | | [address] | | | | | | [phone] | | | +--------+ + + + [...] + + + | Blood Pressure | 107/66 | 01/09/2020 10:14 AM | | | | | PDT | | + + + + + | Pulse | 133 | 01/09/2020 10:14 AM | | | | | PDT | | + + + + + | Temperature | 36.8 C (98.3 F) | 01/09/2020 10:14 AM | | | | | PDT | | + + + + + | Respiratory Rate | 16 | 01/09/2020 10:14 AM | | | | | PDT | | + + + + + | Oxygen Saturation | 99% | 01/09/2020 10:14 AM | | | | | PDT | | + + + + + | Inhaled Oxygen | - | - | | | Concentration | | | | + + + + + | Weight | 94.1 kg (207 lb 6.4 | 01/09/2020 10:14 AM | | | | oz) | PDT | | + + + + + | Height | - | - | | + + + + + | Body Mass Index | 37.93 | 11/21/2019 9:25 PM | | | [...] capsule by | 30 | 0 | 08/30/ | | | oral capsule,delayed | mouth two times | capsule | | 19 | | | release(DR/EC) | daily. Administer 30 | | | | | | | to 60 minutes | | | | | | | before meals | | | | | + + + +---------+ + + documented as of this encounter Progress Mary Lee - 01/09/2020 9:30 AM PDTFormatting of this note might be different from t he original. Assessment Patient has hx of met. Kidney cancer. Fever/Chills/Infection: No SOB / Cough: No Fatigue/Dizziness/Lightheaded: Yes - mild fatigue Signs/Symptoms Bleeding: No Neuropathy: No Mucositis: No Nausea/Vomiting: No Appetite: good. PO Fluid Intake: 2L fluid restriction. Diarrhea/Constipation: No Rash/Skin/Edema: Yes - pitting edema to BLE - pt states worse when driving in, then elevate s feet and decreases Urinary Issues: No Pain: No Lab PIV placed in starter with labs drawn. Good blood return noted prior to start of tx. Education For education provided, see education tab. Chemotherapy Allergies: Tila has No Known Allergies. Labs: Lab Results Component Value Date WBC 2.22 (L) 01/09/2020 HB 7.9 (L) 01/09/2020 HCT 26.5 (L) 01/09/2020 PLT 127 (L) 01/09/2020 BUN 14 01/09/2020 CR 0.85 01/09/2020 For Treatment Done in Clinic Today: see MAR Narrative: D1 C5. Patient was pre-medicated with Benadryl and Pepcid IV. Pt reports she had a rxn to Ipi in the past but has tolerated Nivolumab. Chemotherapy order reviewed, drug calculated and setup including rate, volume and duration were verified with 2nd RN per chemotherapy protocol. Patient s identity was confirmed usi ng at least 2 clinical identifiers at chair/bedside and infusion pump rate and IV lines from pump to patient were also verified with 2nd RN per chemotherapy protocol. Nivolumab was to lerated without complications. Positive blood return noted before and after completion of in fusion. For infusion details, see MAR. Discharge Line care provided, see Flowsheet for details. Patient was instructed to check out at the f ront desk prior to leaving the clinic. Patient d/c d via wheelchair in stable condition. N ext appointment scheduled No future appointments scheduled.. Mary Padron RN documented in this encou nter Plan of Treatment Not on filedocumented as [...] +-------+------+------+ | diphenhydrAMINE (BENADRYL) | Given | 01/09/20 | 25 mg | | | | injection 25 mg 25 mg, | | 20 10:42 | | | | | intravenous, ONCE, 1 dose, Mon | | AM PDT | | | | | 01/09/20 at 1000 | | | | | | + +--------+ +-------+------+------+ +---+---+ | | | +---+---+ + +-------+ +-------+---+---+ | famotidine (PEPCID) injection | Given | 01/09/20 | 20 mg | | | | 20 mg 20 mg, intravenous, ONCE, | | 20 10:44 | | | | | 1 dose, 01/09/20 at 1000 | | AM PDT | | | | + +-------+ +-------+---+---+ +---+---+ | | | +---+---+ + +---------+ +--------+-------+---+ | nivolumab (OPDIVO) 480 mg in | New Bag | 01/09/20 | 480 mg | 128 | | | sodium chloride (NS) 0.9 % IV | | 20 11:22 | | mL/hr | | | 480 mg, intravenous, Administer | | AM PDT | | | | | over 60 Minutes, ONCE, 1 dose, | | | | | | | 01/09/20 at 1000, Administer | | | | | | | through a low protein binding | | | | | | | 0.22 micron in-line filter., | | | | | | + +---------+ +--------+-------+---+ +---+---+ | | | +---+---+ documented in this encounter"
--- OUTSIDE RECORDS SUMMARY | ~2020-06-29 | XMS | Encounter Summary ---
Demographics + + + | Address | [address] | | | [place] [address] | + + + | Home Phone | | + + + | Preferred Language | Unknown | + + + | Marital Status | Single | + + + | Samaritan Affiliation | CHR | + + + [...] Team Providers + +------+ + | Care Grocery Specialist Name | Role | Phone | + +------+ + | Lissette Martinez PA-C PCP | | + +------+ + Encounter Details +--------+--------+ + + + | Date | Type | Department | Care Team | Description | +--------+--------+ + + + | 02/03/ | Travel | | | | | [...]
--- OUTSIDE RECORDS SUMMARY | ~2020-06-29 | XMS | Encounter Summary ---
Demographics + + + | Address | [address] | | | [place] [address] | + + + | Home Phone [...] Team Providers + +------+ + | Care Still Cleaner Tube Name | Role | Phone | + +------+ + | Lissette Martinez PA-C | PCP | | + +------+ + Encounter Details +--------+ + + + + | Date | Type | Department | Care Team | Description | +--------+ + + + + | 06/04/ | MyChart | [facility] | Lissette Jones, | RE: Virtual appt. | | 2019 | Encounter | Clinics at S | [place] [address] [address] | for Tessa Altman | | | | [address] | 06/05/2020 | | | | [facility] for | [place], [place] | | | | | Health and Healing, | [address] | | | | | [address] | [phone] | | | | | [place], [place] | | | | | | [address] | | | | | | [phone] | | | +--------+ + + + [...] this encounter Miscellaneous Notes Telephone Encounter - Malathi Navas RN - 06/05/2020 8:[address] Karen grant ent should be scheduled overbook today at 1245. Called patient and notified her she has been scheduled. documented in this encounter Plan of Treatment Not on filedocumented as of this encounter Visit Diagnoses Not on filedocumented in this encounter"
--- OUTSIDE RECORDS SUMMARY | ~2020-06-29 | XMS | Encounter Summary ---
Demographics + + + | Address | [address] | | | [place] [address] | + + + | Home Phone [...] Author + + + | Author | [facility] | | | and Shahram | + + + | Organization | [facility] | | | and Marcana [...] Team Providers + +------+ + | Care Operator Weapon Locating Radar Name | Role | Phone | + +------+ + | Lissette Martinez | PCP | | | RADHA | | | + +------+ + Reason for Referral Diagnostic/Screening (Routine) +--------+--------+ + + + + | Status | Reason | Specialty | Diagnoses / | Referred By | Referred To | | | | | Procedures | Contact | Contact | +--------+--------+ + + + + | Closed | | Radiology | Diagnoses | Riegert, | [address] | | | | | Secondary | Aileen M, | [place] | | | | | cancer of | [place] [address] | [place], | | | | | bone (HCC) | [address] | [place] [address] | | | | | Metastatic | [place], | Phone: | | | | | renal cell | [place] [address] | [phone] | | | | | carcinoma, | Phone: | Fax: | | | | | unspecified | [phone] | [phone] | | | | | laterality | Fax: | | | | | | (HCC) | [phone] | | | | | | Procedures | | | | | | | CT Treatment | | | | | | | Plan | | | | | | | Complex | | | +--------+--------+ + + + + Reason for Visit Diagnostic/Screening (Routine) +--------+--------+ + + + + | Status | Reason | Specialty | Diagnoses / | Referred By | Referred To | | | | | Procedures | Contact | Contact | +--------+--------+ + + + + | Closed | | Radiology | Diagnoses | Riegert, | [address] | | | | | Secondary | Aileen Cuello, | [place] | | | | | cancer of | [place] [address] | [place], | | | | | bone (HCC) | [address] | [place] [address] | | | | | Metastatic | [place], | Phone: | | | | | renal cell | [place] [address] | [phone] | | | | | carcinoma, | Phone: | Fax: | | | | | unspecified | [phone] | [phone] | | | | | laterality | Fax: | | | | | | (HCC) | [phone] | | | | | | Procedures | | | | | | | CT Treatment | | | | | | | Plan | | | | | | | Complex | | | +--------+--------+ + + + + Encounter Details +--------+ + + + + | Date | Type | Department | Care Team | Description | +--------+ + + + + | 12/12/ | Hospital | [facility] | Aileen Denson | Secondary cancer of | | 2020 | Encounter | [facility] [address] | [facility] | bone (HCC); | | | | [place], | [place], [place] | Metastatic renal | | | | [place] [address] | [address] | cell carcinoma, | | | | [phone] | | unspecified | | | | | | laterality (HCC) | +--------+ + + + + Social [...] + +--------+ + + + | CT TREATMENT PLAN | Routin | 12/13/2019 | Secondary cancer | Results for this | | COMPLEX | e | 1:55 PM | of bone (HCC) | procedure are in the | | | | PDT | Metastatic renal | results section. | | | | | cell carcinoma, | | | | | | unspecified | | | | | | laterality (HCC) | | + +--------+ + + + documented in this encounter Results CT Treatment Plan Complex (12/13/2019 1:55 PM PDT) + + | Specimen | + + | | + + + + + | Narrative | Performed At | + + + | This exam has been auto-finalized and the interpretation may exist | [facility] | | elsewhere in the chart. 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
--- OUTSIDE RECORDS SUMMARY | ~2020-06-29 | XMS | Encounter Summary ---
Demographics + + + | Address | [address] | | | [place] [address] | + + + | Home Phone [...] Author + + + | Author | [facility] | + + + | Organization | [facility] | + + + | Address | Unknown | + + + | Phone | Unavailable | + + + Support + + +---------+ + | Name | Relationship | Address | Phone | + + +---------+ + | William Talavera | ECON | Unknown | | + + +---------+ + Care Team Providers + +------+ + | Care Administrative Resident Name | Role | Phone | + +------+ + | Lissette Martinez PA-C | PCP | | + +------+ + Encounter Details +--------+ + + + + | Date | Type | Department | Care Team | Description | +--------+ + + + + | 01/08/ | Procedure | Radiology/Imaging | | | | 2019 | Pass | Lab at [facility] [address] | | | | | | [address] [facility] | | | | | | Health and Healing, | | | | | | [address] | | | | | | [place], [place] | | | | | | [address] | | | | | | [phone] | | | +--------+ + + + [...]
--- OUTSIDE RECORDS SUMMARY | ~2020-06-29 | XMS | Encounter Summary ---
Demographics + + + | Address | [address] | | | [place] [address] | + + + | Home Phone | | + + + | Preferred Language | Unknown | + + + | Marital Status | Single | + + + | Moravian Affiliation | CHR | + + + | Race | White | + + + | Ethnic Group | Not or | + + + Author + + + | Author | [facility] | + + + | Organization | [facility] | + + + | Address | Unknown | + + + | Phone | Unavailable | + + + Support + + +---------+ + | Name | Relationship | Address | Phone | + + +---------+ + | William Talavera | ECON | Unknown | | + + +---------+ + Care Team Providers + +------+ + | Care Post Office Markup Clerk Name | Role | Phone | [...] Pharmacy | | | | | | [address] | | | | | | [place], [place] | | | | | | [address] | | | | | | [phone] | | | +--------+ + + + [...]
--- OUTSIDE RECORDS SUMMARY | ~2020-06-29 | XMS | Encounter Summary ---
Demographics + + + | Address | [address] | | | [place] [address] | + + + | Home Phone | | + + + | Preferred Language | Unknown | + + + | Marital Status | Single | + + + | Orthodoxy Affiliation | CHR | + + + | Race | White | + + + | Ethnic Group | Not or | + + + Author + + + | Author | [facility] | + + + | Organization | [facility] | + + + | Address | Unknown | + + + | Phone | Unavailable | + + + Support + + +---------+ + | Name | Relationship | Address | Phone | + + +---------+ + | William Talavera | ECON | Unknown | | + + +---------+ + Care Team Providers + +------+ + | Care Cafe Attendant Name | Role | Phone | + +------+ + | Lissette Martinez PA-C | PCP | | + +------+ + Reason for Visit + +--------+ + | Reason | Onset | Comments | | | Date | | + +--------+ + | Care Coordination | 08/25/ | | | | 2019 | | + +--------+ + Encounter Details +--------+ + + + + | Date | Type | Department | Care Team | Description | +--------+ + + + + | 12/19/ | Telephone | [facility] | Lissette Jones, | Care Coordination | | 2019 | | Nate Correia | [address] | | | | | [address] | | | | | [place], [place] | [place], [place] | | | | | [address] | [address] | | | | | [phone] | [phone] | | | | | | | [...] this encounter Miscellaneous Notes Telephone Encounter - Ashlee Holley RN - 08/25/2019 10:59 AM PSTAdvised by research team rani t Pt's sister is Amada Manzanares is asking why they are at the ED, how long she will be there, what her care plan is going forward etc. She notes that they have not been contacted tiffany robertson what her next steps are for care. She asked for call back at [phone] but we do not h ave [facility] for Amada. Research notes that William is also point of contact. Chart review indicates that Pt is set to be admitted. Called William and explained that we sen t Tila to ED for hypotension, hyperkalemia, hypercalcemia. Explained that Pt appears to be still in ED waiting for placement and that inpatient team would direct care while admitted. Recommended that William follow up with them for plan. Advised her that we will follow up afte r discharge for oncology planning. William stated understanding and has no further questions at this time. documented in this encoun ter Plan of Treatment Not on filedocumented as of this encounter Visit Diagnoses Not on filedocumented in this encounter"
--- OUTSIDE RECORDS SUMMARY | ~2020-06-29 | XMS | Encounter Summary ---
Demographics + + + | Address | [address] | | | [place] [address] | + + + | Home Phone | | + + + | Preferred Language | Unknown | + + + | Marital Status | Single | + + + | Christian Affiliation | CHR | + + + | Race | White | + + + | Ethnic Group | Not or | + + + Author + + + | Author | [facility] | + + + | Organization | [facility] | + + + | Address | Unknown | + + + | Phone | Unavailable | + + + Support + + +---------+ + | Name | Relationship | Address | Phone | + + +---------+ + | William Talavera | ECON | Unknown | | + + +---------+ + Care Team Providers + +------+ + | Care Lip Of Shank Cutter Name | Role | Phone | + +------+ + | Lissette Martinez PA-C | PCP | | + +------+ + Encounter Details +--------+ + + + + | Date | Type | Department | Care Team | Description | +--------+ + + + + | 02/22/ | Abstract | Neurosurgery at | [facility], | | | 2019 | | [facility] [address] | Neurosurgery | | | | | [facility] | | | | | | Health and Healing, | | | | | | [facility] | | | | | | [place], [place] | | | | | | [address] | | | | | | [phone] | | | +--------+ + + + [...]
--- OUTSIDE RECORDS SUMMARY | ~2020-06-29 | XMS | Encounter Summary ---
Demographics + + + | Address | [address] | | | [place] [address] | + + + | Home Phone | | + + + | Preferred Language | Unknown | + + + | Marital Status | Single | + + + | Hoahaoism Affiliation | CHR | + + + | Race | White | + + + | Ethnic Group | Not or | + + + Author + + + | Author | [facility] | + + + | Organization | [facility] | + + + | Address | Unknown | + + + | Phone | Unavailable | + + + Support + + +---------+ + | Name | Relationship | Address | Phone | + + +---------+ + | William Talavera | ECON | Unknown | | + + +---------+ + Care Team Providers + +------+ + | Care Sight Effects Specialist Name | Role | Phone | + +------+ + | Lissette Martinez PA-C | PCP | | + +------+ + Reason for Visit +--------+--------+ + | Reason | Onset | Comments | | | Date | | +--------+--------+ + | Other | 10/03/ | 10/10 Appt time moved to 10:10, has Aflec paperwork been | | | 2020 | sent or is patient to rock picker? | +--------+--------+ + Encounter Details +--------+ + + + + | Date | Type | Department | Care Team | Description | +--------+ + + + + | 10/03/ | Telephone | [facility] | Lissette Jones, | Other (10/10 Appt time | | 2019 | | Clinics at S | [address] | moved to 10:10, has | | | | [facility] [address] | Aflec paperwork | | | | [facility] for | [place], [place] | been sent or is | | | | [facility] Healing, | [address] | patient to rock picker?) | | | | [place] [address] | [phone] | | | | | [place], [place] | | | | | | [address] | | | | | | [phone] | | | +--------+ + + + [...] this encounter Miscellaneous Notes Telephone Encounter - Guankao Joseph - 10/18/2019 12:57 PM PSTTeam Coordinator Documentat ion: Subject: Note TC: Received completed disability and faxed it to [employer]. A copy has been uploaded into thi s encounter and a copy has been mailed to the pt's home address. -->Note to RNC: HOMA elephone Encounter - Ellie Gold MA - 10/17/2019 12:29 PM PSTDisability paperwork complete. MD frida pires d on 10/18. Given to TC for faxing. TTelephone Encounter - Guanako Joseph - 10/12/2019 3:57 PM PSTTeam Coordinator Documentat ion: Subject: Note TC: Called and spoke with the pt about her disability ppw. She reported that her disabilit y started on 07/27/19. She is requesting to have the ppw reflect that she is not released ba ck to work. She would like her ppw faxed to [phone] and a copy to be mailed to her home address. Providing ppw to [place] to fill out medical portion. Will pursue MD signature once p pw is completed. -->Note to RNC: HOMA elephone Encounter - Guanako James - 10/03/2019 3:43 PM PSTTeam Coordinator Documentation: Subject: Note TC: Retrieved ppw and started filling it out. Will need to clarify what exactly the pt is requesting for her disability before ppw can be filled out all the way. Called and LVM with the pt requesting a CB to discuss further. -->Note to RNC: HMOA elephone Encounter - Sara Cox - 10/03/2019 2:41 PM PSTIntake calling in requesting PAS move patient's 9:45 appointment to 10:10 on 10/10, MD aware of time change. PAS called patient who is fine with appt time change, so PAS rescheduled 10/10 appt to 10:10. Patient asked after her Aflec paperwork she left at last appt to be filled out, has paperwo rk has been mailed to her or is she supposed to pick it up at her 10/10 appointment? Patient very agreeable to call back to advise and detailed voicemail okay. Routing to RNC documented in this encounter Plan of Treatment Not on filedocumented as of this encounter Visit Diagnoses Not on filedocumented in this encounter"
--- OUTSIDE RECORDS SUMMARY | ~2020-06-29 | XMS | Encounter Summary ---
Demographics + + + | Address | [address] | | | [place] [address] | + + + | Home Phone | | + + + | Preferred Language | Unknown | + + + | Marital Status | Single | + + + | Druze Affiliation | CHR | + + + [...] Team Providers + +------+ + | Care Storeroom Attendant Name | Role | Phone | + +------+ + | Lissette Martinez PA-C | PCP | | + +------+ + Reason for Visit + +--------+ + | Reason | Onset | Comments | | | Date | | + +--------+ + | Scheduling | 09/16/ | | | | 2019 | | + +--------+ + Encounter Details +--------+ + + + + | Date | Type | Department | Care Team | Description | +--------+ + + + + | 09/16/ | Telephone | [facility] | Lissette Jones, | Scheduling | | 2020 | | Clinics at S | [place] [address] [address] | | | | | [facility] [address] | | | | | [facility] | [place], [place] | | | | | Health and Healing, | [address] | | | | | [address] | [phone] | | | | | [place], [place] | | | | | | [address] | | | | | | [phone] | | | +--------+ + + + [...] Telephone Encounter - Giovanna Tomas RN - 09/19/2019 10:30 AM PSTEncounter routed to Dr. Jones to advise on lactulose mentioned in last provider note. elephone Encounter - Ammy White - 09/16/2019 11:21 AM PSTcal led Tila to confirm her appointment on Thursday09/19/19 and she stated when she checked out she asked about rx mentioned at her appointment but no one has contacted her. Tila stated Dr Jones mentioned she was going to prescribe a one time medication to reduce her potassium level prior to this Thursday appointment and it would be called into [facility] She asked at check out to be contacted regarding this but has not been contacted regarding this and no rx as of yet Please confirm this information and contact Tila [phone] with whether or not this is true documented in this encounter Plan of Treatment Not on filedocumented as of this encounter Visit Diagnoses Not on filedocumented in this encounter"
--- OUTSIDE RECORDS SUMMARY | ~2020-06-29 | XMS | Encounter Summary ---
Demographics + + + | Address | [address] | | | [place] [address] | + + + | Home Phone [...] Team Providers + +------+ + | Care Audio Visual Design Engineer Name | Role | Phone | + +------+ + | Lissette Martinez PA-C | PCP | | + +------+ + Reason for Visit + +--------+ + | Reason | Onset | Comments | | | Date | | + +--------+ + | Care Coordination | 04/02/ | | | | 2020 | | + +--------+ + Encounter Details +--------+ + + + + | Date | Type | Department | Care Team | Description | +--------+ + + + + | 04/02/ | Telephone | Radiation Oncology | Antwon Beard, | Care Coordination | | 2020 | | at [facility] [address] | [address] [facility] | | | | | [address] [place] | [facility] | | | | | [address], 4th floor | [place], [place] | | | | | [place], [place] | [address] | | | | | [address] | [phone] | | | | | [phone] | | | +--------+ + + + [...] this encounter Miscellaneous Notes Telephone Encounter - Promise Rodrigues - 04/11/2020 2:49 PM PDTTila called me back to jennifer rangel her MRI is on 04/19 @10:30am at [facility]. We scheduled her for a phone FUP on 04/20 @10am with Dr. Beard. Closing encounter. elephon e Encounter - CarlozalinePromise - 04/02/2020 3:38 PM PDTAliciandrew will be due for a new MRI and ph one FUP with Dr. Beard around 04/21/20. I called her today and let her know I have faxed the MRI order to [facility] and re quested she calls me once the MRI is scheduled so we can set her up for a phone FUP with Dr. Beard. I provided the contact information for [facility] and Tila confirmed she will clark l me back as soon as she schedules the MRI. Electronically signed by Promise Rodrigues at 020 3:43 PM PDTdocumented in this encounter Plan of Treatment Not on filedocumented as of this encounter Visit Diagnoses Not on filedocumented in this encounter"
--- OUTSIDE RECORDS SUMMARY | ~2020-06-29 | XMS | Encounter Summary ---
Demographics + + + | Address | [address] | | | [place] [address] | + + + | Home Phone [...] Author + + + | Author | [facility] | + + + | Organization | [facility] | + + + | Address | Unknown | + + + | Phone | Unavailable | + + + Support + + +---------+ + | Name | Relationship | Address | Phone | + + +---------+ + | William Talavera | ECON | Unknown | | + + +---------+ + Care Team Providers + +------+ + | Care Coil Inspector Name | Role | Phone | + +------+ + | Lissette Martinez PA-C | PCP | | + +------+ + Encounter Details +--------+--------+ + + + | Date | Type | Department | Care Team | Description | +--------+--------+ + + + | 05/06/ | Intake | Transfer Center | | | | 2020 | | [address] | | | | | | [place], | | | | | | [place] [address] | | | +--------+--------+ + + + [...]
--- OUTSIDE RECORDS SUMMARY | ~2020-06-29 | XMS | Encounter Summary ---
Demographics + + + | Address | [address] | | | [place] [address] | + + + | Home Phone [...] Author + + + | Author | [facility] | + + + | Organization | [facility] | + + + | Address | Unknown | + + + | Phone | Unavailable | + + + Support + + +---------+ + | Name | Relationship | Address | Phone | + + +---------+ + | William Talavera | ECON | Unknown | | + + +---------+ + Care Team Providers + +------+ + | Care Shipping And Receiving Name | Role | Phone | + [...] | | | carcinoma of | [place] [address] | [facility] [address] | | | | | left kidney | [address] | | | | | (HCC) | [address] | [facility] for | | | | | 09/19/19-05/08 | [place], | Health and | | | | | 12/2019 | [place] | Healing, | | | | | cycles 1-4 q | [address] | [address] | | | | | 21 days | Phone: | [place], [place] | | | | | Nivolumab - | [phone] | [address] | | | | | Ipilimumab | Fax: | Phone: | | | | | - cycles | [phone] | [phone] | | | | | 5-14 q14 | | Fax: | | | | | days | | [phone] | | | | | Procedures | | | | | | | IN INJ | | | | | | | NIVOLUMAB 1 | | | | | | | MG IN INJ | | | | | | | IPILIMUMAB, | | | | | | | 1 MG IN | | | | | | | CHM,IV | | | | | | | INFSN,1 HR | | | | | | | IN CHM,IV | | | | | | | INFSN,ADDL | | | | | | | HR IN CHM | | | | | | [...] + + | 10/10/ | Hospital | [facility] | [address] | | | 2020 | Encounter | Clinics at S | [address] [place], [place] | | | | | [facility] [address] | [address] | | | | | [facility] | | | | | | Health and Healing, | | | | | | [address] | | | | | | [place], [place] | | | | | | [address] | | | | | | [phone] | | | +--------+ + + + [...] tightness in her chest. Nivolumab nfusion stopped, certification officer provid er, paged, fluids started, and infusion [...] & affect appropriate a nd discharged with family/intermodal owner operator truck driver and ambulatory. Refer to MAR and [...] | | | | | | Until 10/10/19 at 1237, | | | | | [...] (NS) 0.9 % IV | | 20 1:41 | | mL/hr [...]
--- OUTSIDE RECORDS SUMMARY | ~2020-06-29 | XMS | Encounter Summary ---
Demographics + + + | Address | [address] | | | [place] [address] | + + + | Home Phone [...] Team Providers + +------+ + | Care Engineer Remote Control Diesel Name | Role | Phone | + [...] + + + | Authorized | | Neurology | Diagnoses | Chirag, | External | | | | | Brain | Antwon Aggarwal MD | Order | | | | | metastases | [address] | | | | | | ([facility]) | [place] | | | | | | Procedures | [facility] [place] | | | | | | CONSULT TO | [place], [place] | | | | | | NEUROLOGY | [address] | | | | | | | Phone: | | | | | | | [phone] | | | | | | | Fax: | | | | | | | [phone] | | + +--------+ + + + + Encounter Details +--------+ + + + + | Date | Type | Department | Care Team | Description | +--------+ + + + + | 06/06/ | Telephone | Radiation Oncology | Antwon Beard, | | | 2020 | | at [facility] [address] | [address] [facility] | | | | | [address] [place] | [facility] | | | | | [place], [facility] | [place], [place] | | | | | [place], [place] | [address] | | | | | [address] | [phone] | | | | | [phone] | | | +--------+ + + + [...] this encounter Miscellaneous Notes Telephone Encounter - Aubrey Smith RN - 06/11/2020 4:29 PM PDTCalled Tila to review dex taper instructions provided by Dr. Beard on 06/07: 2mg x 5 days 2mg every other day x 3 doses Tila is currently feeling well on 2mg daily. Encouraged her to call if symptoms worsen up on completion of her dexamethasone. elephone Encounter - Hemanth Campbell RN - 06/07/2020 4:47 PM PDTCalled patient at 1645 to let her know I have not officially heard back from Dr. Jones or Dr. Beard in regards to her dexamethasone taper. Will route to [facility]OU[facility] group and Promise to follow up tomorrow (06/08)Electronically s igned by Hemanth Cardenas RN at 06/07/2020 4:51 PM PDTTelephone Encounter - Hemanth Cardenas RN - 06/07/2020 12:[address] PDTReceived answers [address] Dr[address] Beard regarding patient's questions. Answers are in bold copied at the bottom of this note. Patient had a couple more questions of exactly when in Jun should she complete the brain MR I? She would like to complete the MRI and RT prior to and the weather getting b ad (if Dr. Beard decides on more RT). Does Dr. Jones want Dr. Beard to take over dexamethasone? Message out to Dr. Jones re dex ta per. If Dr. Jones agree for Mary to take over dex then Dr. Beard would like a slow taper of 5 days at 2mg once daily, then every other day at 2mg once daily for 3 doses. Additionally, patient requesting the neurology referral to be faxed to Neurology at [facility] in [place], [place]. Will place referral and Promise ZAMUDIO will fax. Questions/requests from patient: 1) Patient would like Dr. Beard to review head CT images from ED visit. --- REVIEWED. Appears to be some slight enlargement, but consistent with recent radiation . 2) Should she still get her next brain MRI in June 2020 as planned (this hasn't been augustina eduled yet) or should she complete this sooner due to the seizure she just had? Note: patient says Dr. Beard was going to do more brain radiation treatments depending on the results of this next brain MRI. Patient would still like to complete next round of rad iation if Dr. Beard thinks she should. --- I would still like to get the MRI in June, the seizure is MUCH more likely related t o the post-treatment swelling than progression of disease. So I'd like her brain to "relax" a little bit before we hit the tumor again (and cause more swelling). 3) Would like further dexamethasone instructions, patient aware that dexamethasone is not a prison medication. Note: Dr. Jones is aware of dose and has approved the 2mg daily dose of dexamethsone; patien t taking 20mg of PO cabozantinib which was recently reduced by Dr. Jones from 40mg daily due to side effects per pt report. -- Great. Does Dr. Jones want us to take over? If so, we can do a slow taper. 5 days at 2mg, then every other day for 3 doses 4) Patient wondering about future management of Keppra. Will she need a neuro referral fo r this? If neuro referral appropriate then does Dr. Beard have a neurologist he would recommend in the [facility]? -- Neuro referral would be great. I don't have a particular person in mind. We can send a r eferral to wherever is convenient? In the meantime, we can refill as needed Electronically s igned by Hemanth Cardenas RN at 06/07/2020 4:51 PM PDTTelephone Encounter - Hemanth Cardenas RN - 06/06/2020 2:18 PM PDTCalled patient to follow up on mychart she sent in letting us k now about a seizure she had yesterday. Background: 54 y.o. femalewith PMHx significant for classic Hodgkin's Disease (2001; prior CHOP and c onsolidative chest RT). In August of 2019 she was diagnosed with Stage IV renal cell carci noma, clear cell type, with findings of a 3.8 cm left renal mass (invaion of renal vein), a lytic L2 vertebral lesion (with fracture and 50% height loss) and multiple hepatic metastase s. She presented with a newly diagnosed single LEFT frontal brain metastasis which we treate d with SRS to 15 Gy on 03/07/20. Patient called in with seizure like activity back on 05/01/20 and was advised at that time t o monitor symptoms. Assessment: Patient reports to me the following. Had a seizure at home yesterday . Sister witnessed and describes it has whole body shaking, right side of face fluttering/twi tching, eyes rolled in back of head, both hands clenched, drooling, and LOC. Sister says this seizure lasted about 3--5 minutes in total. Sister called 911. Patient was taken to [facility] in [place], [place] Pt says she was DC'd within 4 hours of arriving to ED. She was given keppra 500mg BID and dexamethasone 2mg daily at discharge. Dr. Wolfe was called by ED MD who approved dex dose. Patient says head CT scan was completed and patient says she was told by the ED MD that her tumor had some possible swelling. Patient is home now and feeling good. She slept well last night and has no symptoms. She is taking the PO Keppra and PO dexamethasone as ordered. Questions/requests from patient: 1) Patient would like Dr. Beard to review head CT images from ED visit. 2) Should she still get her next brain MRI in June 2020 as planned (this hasn't been augustina eduled yet) or should she complete this sooner due to the seizure she just had? Note: patient says Dr. Beard was going to do more brain radiation treatments depending on the results of this next brain MRI. Patient would still like to complete next round of radi ation if Dr. Beard thinks she should. 3) Would like further dexamethasone instructions, patient aware that dexamethasone is not a prison medication. Note: Dr. Jones is aware of dose and has approved the 2mg daily dose of dexamethsone; patien t taking 20mg of PO cabozantinib which was recently reduced by Dr. Jones from 40mg daily due to side effects per pt report. 4) Patient wondering about future management of Keppra. Will she need a neuro referral for this? If neuro referral appropriate then does Dr. Beard have a neurologist he would recommend in the [facility]? Plan: Will route to Dr. Beard and Promise ZAMUDIO for advice. documented in this encounter Plan of Treatment Not on filedocumented as of this encounter Visit Diagnoses + + | Diagnosis | + + | Brain metastases (HCC) - Primary Secondary malignant neoplasm of brain and spinal | | cord | + + documented in this encounter
--- OUTSIDE RECORDS SUMMARY | ~2020-06-29 | XMS | Encounter Summary ---
Demographics + + + | Address | [address] | | | [place] [address] | + + + | Home Phone [...] Author + + + | Author | [facility] | + + + | Organization | [facility] | + + + | Address | Unknown | + + + | Phone | Unavailable | + + + Support + + +---------+ + | Name | Relationship | Address | Phone | + + +---------+ + | William Talavera | ECON | Unknown | | + + +---------+ + Care Team Providers + +------+ + | Care Fuse Cup Expander Name | Role | Phone | + +------+ + | Lissette Martinez PA-C | PCP | | + +------+ + Reason for Referral Consultation (Routine) +--------+--------+ + + + + | Status | Reason | Specialty | Diagnoses / | Referred By | Referred To | | | | | Procedures | Contact | Contact | +--------+--------+ + + + + | Closed | | Radiation | Diagnoses | Vuky, | External | | | | Oncology | Kidney | Lissette | Order | | | | | cancer, | [place] [address] [address] | | | | | | primary, | [facility] | | | | | | with | Ct | | | | | | metastasis | [place] | | | | | | from kidney | [place] | | | | | | to other | [address] | | | | | | site, left | Phone: | | | | | | ([facility]) | [phone] | | | | | | Procedures | Fax: | | | | | | CONSULT TO | [phone] | | | | | | RADIATION | | | | | | | ONCOLOGY | | | +--------+--------+ + + + + Reason for Visit + +--------+ + | Reason | Onset | Comments | | | Date | | + +--------+ + | Lab Results | 11/01/ | | | | 2020 | | + +--------+ + Encounter Details +--------+ + + + + | Date | Type | Department | Care Team | Description | +--------+ + + + + | 11/01/ | Telephone | [facility] | Lissette Jones, | Lab Results | | 2019 | | Clinics at S | [place] [address] [address] | | | | | [place] [address] | | | | | [facility] | [place], [place] | | | | | [facility] and Healing, | [address] | | | | | [address] | [phone] | | | | | [place], [place] | | | | | | [address] | | | | | | [phone] | | | +--------+ + + + [...] Telephone Encounter - Giovanna Tomas RN - 11/07/2019 4:31 PM PSTReviewed lab results with Dr. Jones -- she will check K+ again when pt is here on 11/20. Call to pt to advise of plan, she was agreeable. elephone Encounter - Guanako Joseph - 11/07/2019 4:20 PM PSTTeam Coordinator Documentation: Subject: Note TC: Lab results received and forwarded to the RNC via outlook. -->Note to RNC: CHEYENNEPedro elephone Encounter - Guanako James - 11/07/2019 10:28 AM PSTTeam Coordinator Documentation: Subject: Note TC: Lab orders faxed off off to [facility] in [place], [place]. Will fu later this evening on results. -->Note to RNC: HOMA ddendum Note - Giovanna Tomas RN - 11/07/2019 9:55 AM PST Addended by: GIOVANNA TOMAS RN on: 11/07/2019 09:55 AM Modules accepted: Orders elephone Encounter - Giovanna Saldivar RN - 11/07/2019 9:33 AM PSTCalled pt who reports she went to ED over weekend wher e they administered IVF and 2 doses kayexolate. She vomited after last kayexolate dose and r eports nausea for 1.5 days following ED visit. Confirms she is taking lasix as prescribed. F atigue is ongoing and not improved after ED visit. Denies cardiac symptoms including SOB, ch est pain or irregular heartbeat. Discussed with Dr. Jones who would like pt to have labs drawn today or tomorrow and IVF loca lly, if indicated. Spoke to pt -- she will have labs drawn this afternoon. CMP orders routed to TC. Electronic ally signed by Giovanna Tomas RN at 11/07/2019 9:54 AM PSTTelephone Encounter - Ashlee Dow RN - 11/04/2019 6:58 PM PST. Karen returned page. Per her, re-order kayexolate 60 mL x 4 day s if Pt not symptomatic, and then recheck labs on Thursday. If symptomatic, instruct Pt to go to ED. TC to Pt. Per her, she is feeling very fatigued but denies any arrhythmias, tachycardia, ch est pain, SOB. She states that her pharmacy is closed for the night. Advised Pt that best op tion is to go to local ED and advise them that her potassium is 5.7. Pt agreed to do this no w and has no further questions at this time. [facility] to follow up after discharge. 20 7:08 PM PSTTelephone Encounter - Ashlee Dow RN - 11/04/2019 6:[address] Jones elephone Encounter - Ashlee Dow RN - 11/04/2019 6:45 PM PSTFaxed lab results forwarded to Dr. Jones by email.Electr onically signed by Ashlee Dow RN at 11/04/2019 6:47 PM PSTTelephone Encounter - Eden Joseph - 11/04/2019 6:44 PM PSTTeam Coordinator Documentation: Subject: Note TC: Lab results received and forwarded to the [facility] via outlook. -->Note to RNC: FYI elephone Encounter - Ashlee Bashir RN - 11/04/2019 6:43 PM PSTAfter multiple requests, advised by lab that their leo ariza kept getting errors. Finally obtained results including potassium 5.[address] Jay Jay driver. elephone Encounter - Ellie Crawley MA - 11/04/2019 4:30 PM PSTCalled [facility] to get an update on lab resul t status they stated labs are processing now and should result within the hour. If we do not receive the fax by 5:45 call them back and they will force them through. Electronically sig sharifa by Ellie Johns MA at 11/04/2019 4:47 PM PSTAddendum Note - Ellie Johns MA - 2019 1:18 PM PST Addended by: ELLIE JOHNS MA on: 11/04/2019 01:18 PM Modules accepted: Orders elephone Encounter - Ellie Johns MA - 11/04/2019 1:08 PM PSTCalled [facility] in [place], [place] (P. ; F. [phone]). Pt has not come in today yet to get labs drawn. Called and spoke with pt to get clarification on when they would be going in to get labs. P t stated she will be going in at 3:00pm today 11/04 to get her labs drawn. Also put in a new order for Radiation Oncology at [facility] Fx: [phone]. Routing to Obey Peña for faxing. elephone Encounter - Guanako De Dios - 11/03/2019 3:59 PM PSTTeam Coordinator Documentation: Subject: Note TC: Lab orders received and faxed off as requested. -->Note to RNC: FYI ddendum Note - Trent Dow RN - 11/03/2019 3:52 PM PST Addended by: ASHLEE DOW RN on: 11/03/2019 03:52 PM Modules accepted: Orders elephone Encounter - Guanako De Dios - 11/03/2019 11:27 AM PSTTeam Coordinator Documentation: Subject: Note TC: Per RNC request, called pt and clarified that she would like lab orders sent to [facility] in [place], [place] (P. [phone]; F. [phone]). -->Note to RNC: HOMA ddendum Note - Trent Dow RN - 11/03/2019 11:15 AM PST Addended by: ASHLEE DOW RN on: 11/03/2019 11:15 AM Modules accepted: Orders elephone Encounter - Guanako De Dios - 11/03/2019 9:46 AM PSTTeam Coordinator Documentation: Subject: Note TC: Received a request to fax off lab orders. Per review of this pt's chart in the open or ders tab there are no lab orders present. Routing to the RNC/C.C. to enter orders. -->Note to RNC: HOMA elephone Encounter - Florentino on Giovanna DOUGLAS - 11/01/2019 12:02 PM PSTReceived critical lab value from central lab. K= 6.[address] Jones verbally notified. Pt will have labs redrawn on 11/04. RNC to f/u wit h results. documented in th is encounter Plan of Treatment + +------+--------+ + + | Name | Type | Priori | Associated Diagnoses | Order Schedule | | | | ty | | | + +------+--------+ + + | COMPLETE METABOLIC | Lab | Urgent | Kidney cancer, | Expected: 11/03/2019 | | SET | | | primary, with | (Approximate), | | (NA,K,CL,CO2,BUN,CRE | | | metastasis from | Expires: 12/01/2020 | | AT,GLUC,CA,AST,ALT,B | | | kidney to other | | | MARTIN TOTAL,ALK | | | site, left (HCC) | | | PHOS,ALB,PROT TOTAL) | | | | | + +------+--------+ + + | COMPLETE METABOLIC | Lab | Routin | Kidney cancer, | 2-3 times per week | | SET | | e | primary, with | for 20 Occurrences | | (NA,K,CL,CO2,BUN,CRE | | | metastasis from | starting 11/07/2019 | | AT,GLUC,CA,AST,ALT,B | | | kidney to other | until 12/07/2020 | | MARTIN TOTAL,ALK | | | site, left (HCC) | | | PHOS,ALB,PROT TOTAL) | | | | | + +------+--------+ + + documented as of this encounter Visit Diagnoses + + | Diagnosis | + + | Kidney cancer, primary, 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
--- OUTSIDE RECORDS SUMMARY | ~2020-06-29 | XMS | Encounter Summary ---
Demographics + + + | Address | [address] | | | [place] [address] | + + + | Home Phone | | + + + | Preferred Language | Unknown | + + + | Marital Status | Single | + + + | Scientology Affiliation | CHR | + + + | Race | White | + + + | Ethnic Group | Not or | + + + Author + + + | Author | [facility] | + + + | Organization | [facility] | + + + | Address | Unknown | + + + | Phone | Unavailable | + + + Support + + +---------+ + | Name | Relationship | Address | Phone | + + +---------+ + | William Talavera | ECON | Unknown | | + + +---------+ + Care Team Providers + +------+ + | Care Broom Builder Name | Role | Phone | + [...] Ct Scan | | | | | Renal cell | Lissette, | [facility] [address] | | | | | carcinoma of | [place] [address] | | | | | left kidney | [facility] | [facility] for | | | | | ([facility]) | Ct | Health and | | | | | Procedures | [place], | Healing, | | | | | CT CHEST, | [place] | [address], | | | | | ABDOMEN AND | [address] | 3rd Floor | | | | | PELVIS W IV | Phone: | [place], [place] | | | | | CONTRAST NE | [phone] | [address] | | | | | CAT SCAN OF | Fax: | Phone: | | | | | CHEST | [phone] | [phone] | | | | | CONTRAST NE | | Fax: | | | | | CT | | [phone] | | | | | ABDOMEN&PELV | | | | | | | IS | | | | | | | W/CONTRAST | | | +--------+--------+ + + + + Diagnostic Testing (Routine) + +--------+ + + + + | Status | Reason | Specialty | Diagnoses / | Referred By | Referred To | | | | | Procedures | Contact | Contact | + +--------+ + + + + | New Request | | Radiology | Diagnoses | Vuky, | [place] | | | | | Renal cell | [place], | [facility] & | | | | | carcinoma of | [place] [address] [address] | [employer] | | | | | left kidney | [facility] | [address] | | | | | (HCC) | Ct | [facility] | | | | | Procedures | [place], | [facility] | | | | | CT CHEST, | [place] | [place], [place] | | | | | ABDOMEN AND | [address] | [address] | | | | | PELVIS W IV | Phone: | Phone: | | | | | CONTRAST | [phone] | [phone] | | | | | | Fax: | | | | | | | [phone] | | + +--------+ + + + [...] Ct Scan | | | | | Renal cell | Lissette, | [facility] [address] | | | | | carcinoma of | [place] [address] [address] | | | | | left kidney | [facility] | Center for | | | | | ([facility]) | Ct | Health and | | | | | Procedures | [place], | Healing, | | | | | CT CHEST, | [place] | [address], | | | | | ABDOMEN AND | [address] | 3rd Floor | | | | | PELVIS W IV | Phone: | [place], [place] | | | | | CONTRAST NE | [phone] | [address] | | | | | CAT SCAN OF | Fax: | Phone: | | | | | CHEST | [phone] | [phone] | | | | | CONTRAST NE | | Fax: | | | | | CT | | [phone] | | | | | ABDOMEN&PELV | | | | | | | IS | | | | | | | W/CONTRAST | | | +--------+--------+ + + + + Encounter Details +--------+ + + + + | Date | Type | Department | Care Team | Description | +--------+ + + + + | 03/12/ | Hospital | Radiology/Imaging | Lissette Jones, | | | 2020 | Encounter | Lab at [facility] [address] | [address] | | | | | [facility] for | [address] [address] | | | | | Health and [facility], | [place], [place] | | | | | [place] [address], [facility] | [address] | | | | | Floor [place], [place] | [phone] | | | | | [address] | | | | | | [phone] | | | +--------+ + + + [...] + + + +---------+ + + | apixaban 5 mg oral | Take 1 tablet by | 60 | 3 | 03/16/20 | | | tablet | mouth two times | tablet | | 20 | | | | daily. | | | | | + + [...] | CT CHEST, ABDOMEN | Routin | 03/12/2020 | Renal cell | Results for this | | AND PELVIS W IV | e | 12:47 PM | carcinoma of left | procedure are in the | | CONTRAST | | PDT | kidney (HCC) | results section. | + +--------+ + + + documented in this encounter Results CT CHEST, ABDOMEN AND PELVIS W IV CONTRAST (03/12/2020 12:47 PM PDT) + + | Specimen | + + | | + + + + + | Narrative | Performed At | + + + | EXAM: CT of the chest, abdomen and pelvis WITH intravenous contrast. | [facility] | | HISTORY: Metastatic left-sided renal cell carcinoma diagnosed | RADIOLOGY VOICE | | July 2019 after presenting with left-sided back pain. | RECOGNITION 2 | | Biopsy-proven hepatic metastases. On systemic treatment. 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 COMPARISON: CT of 11/23/2019. | | | TECHNIQUE: CT of the chest, abdomen and pelvis WITH intravenous | | | contrast. Coronal and sagittal reformats were generated and reviewed. | | | FINDINGS: CHEST: The heart and great vessels are unremarkable. | | | Stable calcified mediastinal masses may again represent treated | | | lymphoma. No other findings of thoracic adenopathy. No pleural fluid. | | | Stable paramediastinal scarring with a sharp lateral margin in | | | both lungs, right greater than left, likely represents chronic post | | | radiation change. New multifocal pulmonary opacities with a | | | predominantly groundglass morphology are nonspecific, possibly | | | reflecting medication related pneumonitis, metastatic disease, or | | | intercurrent infection. LIVER: The liver is enlarged and largely | | | replaced by multiple partially confluent hepatic metastases. Tumor | | | morphology somewhat limits object measurements, although progression | | | is suspected. For example, a relatively circumscribed lesion in | | | segment 8 (axial image 89) now measures 7.0 x 5.3 cm compared to 5.9 x | | | 4.6 cm previously. BILIARY: Unremarkable. PANCREAS: Unremarkable. | | | SPLEEN: Unremarkable. ADRENALS: Unremarkable. KIDNEYS/URETERS: | | | The left kidney remains largely replaced by a irregular infiltrative | | | tumor. Tumor is slightly smaller and less enhancing, now measuring | | | 10.5 x 6.7 cm (axial image 136) compared to 11.0 x 9.1 cm previously. | | | Tumor thrombus continues to extend into the left renal vein, but does | | | not reach the inferior vena cava. Normal right kidney. PELVIC | | | ORGANS/BLADDER: Unremarkable. GI TRACT: Unremarkable. PERITONEUM: | | | No free air. New small volume ascites is nonspecific. LYMPH | | | NODES: No lymphadenopathy. VESSELS: Unremarkable. BONES AND SOFT | | | TISSUES: Stable appearance of presumed malignant anterior collapse of | | | L2, with changes of prior vertebral plasty reidentified. | | | IMPRESSION: Since 08/23/2019, new multifocal pulmonary opacities | | | with a predominantly groundglass morphology are nonspecific, possibly | | | reflecting medication related pneumonitis, metastatic disease, or | | | intercurrent infection. Since 11/23/2019, somewhat mixed evolution | | | of disease with the primary tumor in the left kidney looking improved | | | but with extensive liver metastases appearing worse. I have | | | personally reviewed the images and, if necessary, edited the report. I | | | agree with the report as now presented. Final signature: Shashank | | | Gregor Calderon MD 03/12/2020 1:11 PM Preliminary: Shashank Calderon MD | | | Dictation initiated: Shashank Calderon MD 03/12/2020 12:51 PM | | + + + + + | Procedure Note | + + | Service Account, Radiant Res In Interface - 03/12/2020 1:29 PM PDT EXAM: CT of the | | chest, abdomen and pelvis WITH intravenous contrast. HISTORY: Metastatic left-sided | | renal cell carcinoma diagnosed July 2019 after presenting with left-sided back pain. | | Biopsy-proven hepatic metastases. On systemic treatment. Remote history of treated | | lymphoma. COMPARISON: CT of 11/23/2019. TECHNIQUE: CT of the chest, abdomen and pelvis | | WITH intravenous contrast. Coronal and sagittal reformats were generated and reviewed. | | FINDINGS: CHEST: The heart and great vessels are unremarkable. Stable calcified | | mediastinal masses may again represent treated lymphoma. No other findings of thoracic | | adenopathy. No pleural fluid. Stable paramediastinal scarring with a sharp lateral | | margin in both lungs, right greater than left, likely represents chronic post radiation | | change. New multifocal pulmonary opacities with a predominantly groundglass morphology | | are nonspecific, possibly reflecting medication related pneumonitis, metastatic disease, | | or intercurrent infection. LIVER: The liver is enlarged and largely replaced by | | multiple partially confluent hepatic metastases. Tumor morphology somewhat limits object | | measurements, although progression is suspected. For example, a relatively | | circumscribed lesion in segment 8 (axial image 89) now measures 7.0 x 5.3 cm compared to | | 5.9 x 4.6 cm previously.BILIARY: Unremarkable.PANCREAS: Unremarkable. SPLEEN: | | Unremarkable.ADRENALS: Unremarkable. KIDNEYS/URETERS: The left kidney remains largely | | replaced by a irregular infiltrative tumor. Tumor is slightly smaller and less | | enhancing, now measuring 10.5 x 6.7 cm (axial image 136) compared to 11.0 x 9.1 cm | | previously. Tumor thrombus continues to extend into the left renal vein, but does not | | reach the inferior vena cava. Normal right kidney.PELVIC ORGANS/BLADDER: Unremarkable. | | GI TRACT: Unremarkable.PERITONEUM: No free air. New small volume ascites is nonspecific. | | LYMPH NODES: No lymphadenopathy.VESSELS: Unremarkable. BONES AND SOFT TISSUES: Stable | | appearance of presumed malignant anterior collapse of L2, with changes of prior | | vertebral plasty reidentified. IMPRESSION: Since 08/23/2019, new multifocal pulmonary | | opacities with a predominantly groundglass morphology are nonspecific, possibly | | reflecting medication related pneumonitis, metastatic disease, or intercurrent | | infection. Since 11/23/2019, somewhat mixed evolution of disease with the primary tumor | | in the left kidney looking improved but with extensive liver metastases appearing worse. | | I have personally reviewed the images and, if necessary, edited the report. I agree | | with the report as now presented. Final signature: Shashank Calderon MD 03/12/2020 1:11 | | PM Preliminary: Shashank Calderon MD Dictation initiated: Shashank Caldeorn MD | | 03/12/2020 12:51 PM | |BONES AND SOFT TISSUES: Stable appearance of presumed malignant anterior collapse of L2, wi th changes of prior vertebral plasty reidentified. | | | |IMPRESSION: | | | |Since 08/23/2019, new multifocal pulmonary opacities with a predominantly groundglass morph ology are nonspecific, possibly reflecting medication related pneumonitis, metastatic diseas e, or intercurrent infection. | | | |Since 11/23/2019, somewhat mixed evolution of disease with the primary tumor in the left kid megan looking improved but with extensive liver metastases appearing worse. | | | |I have personally reviewed the images and, if necessary, edited the report. I agree with th e report as now presented. | | | |Final signature: Shashank Calderon MD 03/12/2020 1:11 PM | |Preliminary: Shashank Calderon MD | |Dictation initiated: Shashank Calderon MD 03/12/2020 12:51 PM | + + + +---------+ + [...] of left kidney (HCC) | + + documented in this encounter Administered Medications + +---------+ +--------+------+------+ | Medication Order | MAR | Action | Dose | Rate | Site | | | Action | Date | | | | + +---------+ +--------+------+------+ | iohexoL (OMNIPAQUE) 350 mg | IV Push | 03/12/20 | 100 mL | | | | iodine/mL injection 100 mL 100 | | 20 12:48 | | | | | mL, intravenous, ONCE, 1 dose, | | PM PDT | | | | | 03/12/20 at 1330 | | | | | | + +---------+ +--------+------+------+ +---+---+ | | | +---+---+ documented in this encounter"
--- OUTSIDE RECORDS SUMMARY | ~2020-06-29 | XMS | Encounter Summary ---
Demographics + + + | Address | [address] | | | [place] [address] | + + + | Home Phone [...] Author + + + | Author | [facility] | + + + | Organization | [facility] | + + + | Address | Unknown | + + + | Phone | Unavailable | + + + Support + + +---------+ + | Name | Relationship | Address | Phone | + + +---------+ + | William Talavera | ECON | Unknown | | + + +---------+ + Care Team Providers + +------+ + | Care Weed Inspector Name | Role | Phone | [...] | | 2018 | | Services at [facility] | | Preparation | | | | [address] | | | | | | [place] | | | | | | [facility], [address] [place] [address] | | | | | | [place], [place] | | | | | | [address] | | | | | | [phone] | | | +--------+ + + + [...] advised to communicate to provider to call [phone] with questions. Pt was given pre-procedure instructions: [...] accompany them on public tra nsportation. Call [phone] with any questions. documented in this enc ounter Plan of Treatment Not on filedocumented as of this encounter Visit Diagnoses Not on filedocumented in this encounter"
--- OUTSIDE RECORDS SUMMARY | ~2020-06-29 | XMS | Encounter Summary ---
Demographics + + + | Address | [address] | | | [place] [address] | + + + | Home Phone [...] Team Providers + +------+ + | Care Semiconductor Wafers Etcher Stripper Name | Role | Phone | + +------+ + | Lissette Martinez PA-C | PCP | | + +------+ + Reason for Referral Diagnostic Testing (Routine) + +--------+ + + + + | Status | Reason | Specialty | Diagnoses / | Referred By | Referred To | | | | | Procedures | Contact | Contact | + +--------+ + + + + | New Request | | Radiology | Diagnoses | [place], | External | | | | | Brain | Antwon Aggarwal MD | Order | | | | | metastases | [address] | | | | | | (HCC) | [place] | | | | | | Procedures | Digna Sanches | | | | | | MRI BRAIN | [place], [place] | | | | | | TUMOR | [address] | | | | | | EVALUATION | Phone: | | | | | | [facility]WO CONTRAST | [phone] | | | | | | | Fax: | | | | | | | [phone] | | + +--------+ + + + + Reason for Visit + + + | Reason | Comments | + + + | Follow-up visit | | + + + Office Visit - E/M Services (Routine) +--------+--------+ + + + + | [...] | | | | | carcinoma, | [address] | [address] [facility] | | | | | unspecified | Angelito Rosa | [facility] | | | | | laterality | [address] | [address], | | | | | (HCC) | [place], [place] | [place] | | | | | Procedures | [address] | [address] | | | | | [place] PHONE E/M | Phone: | Phone: | | | | | BY LIP | [phone] | [phone] | | | | | 11-20 MIN | Fax: | Fax: | | | | | [place] 6wk | [phone] | [phone] | | | | | TelehealthOV | | | +--------+--------+ + + + + Encounter Details +--------+ + + + + | Date | Type | Department | Care Team | Description | +--------+ + + + + | 04/20/ | Telephone-S | Radiation Oncology | Antwon Beard, | Follow-up visit | | 2020 | cheduled | at [facility] [address] | [address] | | | | | [address] | [facility] | | | | | Juju, [facility] floor | [place], [place] | | | | | [place], [place] | [address] | | | | | [address] | [phone] | | | | | [phone] | | | +--------+ + + + [...] documented as of this encounter Progress Notes Antwon Beard MD - 04/20/2020 10:00 AM PDTFormatting of this note might be different fro m the original. Radiation Oncology Follow Up Note Identification: 54 y.o. female with PMHx significant for classic Hodgkin's Disease (2001; p rior CHOP and consolidative chest RT). In August of 2019 she was diagnosed with Stage IV r enal cell carcinoma, clear cell type, with findings of a 3.8 cm left renal mass (invaion of renal vein), a lytic L2 vertebral lesion (with fracture and 50% height loss) and multiple he patic metastases. She presented with a newly diagnosed single LEFT frontal brain metastasis which we treated with SRS to 15 Gy on 03/07/20. Subjective: Tila Altman has follow up visit today via telephone per COVID-19 precaution sukhwinder measures. LAST TREATMENT 03/12/2020: F/u with Dr. Jones, discussed CT CAP, which demonstrated slightly smaller Lt kidn ey lesions, new disease pulmonary opacities with groundglass appearance might be pneumonitis , progression in liver. Plan to taper steroids over 10 days. Recommend cabozantinib at low er dose 4 mg, can consider increasing after 1 mo if toxicity is tolerable; start cabo post s teroid taper. PE: plan to d/c lovenox and switch to enoxaparin. RTC/virtual or phone in 6 weeks 03/30/2020: Received cabozantinib MRI BRAIN [facility] 04/19/2020 ([facility]) COMPARISON: 02/17/2020, 08/30/2019 IMPRESSION: 1. Again, in the inferior left precentral gyrus, there is a multiloculated mass which toda y measures 2.7 x 2.2 in transverse dimension with a cranial caudal height of 2.7 cm. It is of uniform high-signal on both T1 and T2-weighted images, suggesting late subacute hemorrha ge of a metastatic lesion. Mild associated edema is present. 2. No new or additional brain lesions are identified. No new complicating process is appr eciated. 3. Symmetric brain atrophy 4. Left maxillary sinus mucosal thickening No HAs. Notes a little bit of speech concerns (word finding); speech got better. No sensory or motor deficits. Mind is much clearer. Cabozantinib (notes fatigue and decreased appetite), but improved mental clarity. Current Outpatient Medications Medication Sig apixaban 5 mg oral tablet Take 1 tablet by mouth two times daily. cabozantinib 40 mg oral tablet Take 1 tablet by mouth once daily. Indications: renal ce ll carcinoma cholecalciferol 50,000 unit oral capsule Take 1 capsule by mouth every seven days. Simi cations: vitamin D deficiency (high dose therapy) dexAMETHasone 2 mg oral tablet Starting 03/16: decrease down to 2mg two times daily for 5 days, then decrease down to 2mg once daily for 5 days then stop. Keep extra tabs on hand and call [facility] clinic with any symptoms as discussed. Indications: fluid accumulation in th e brain furosemide (LASIX) 20 mg oral tablet Take [...] No current facility-administered medications for this visit. Objective: (telephone visit - exam limited) Pain Score: 0/10 Lab/Imaging: as above in HPI Assessment/Plan: Continues on Cabozantinib under Dr. Jones's care. -- Doing very well on the regimen. Brain: intracranial findings stable: -- Plan to re-evaluate brain in 2-3 months in [facility] -- Planned for second stage of SRS to brain to follow- Patient agrees to a telephone encounter for today's visit. They understand they may be resp onsible for the balance after insurance processes the claim. The visit took place via telephone with the provider located at the distant site of [facility]. T he patient stated they were located at the originating site of home and were in the state of [place] at the time of the telephone visit. The names of all additional persons participatin g in the telephone visit and their roles are: N/A. Time spent on the call: 25 min. The patients encounter was accomplished via a telephone call today due to COVID-19 precauti onary measures to limit the patient's unnecessary exposure. I, Rosibel William, am functioning as a scribe for Dr. Antwon Beard MD at 2:17 PM on 020. I prepared the chart for today s visit. I have reviewed and verified the above scribed note of my visit with this patient as report ed by Rosibel William. Antwon Beard MD RADIATION ONCOLOGY AT [address] [place], [address] [place] [id number] documented in this en counter Plan of Treatment + +---------+--------+ + + | Name | Type | Priori | Associated Diagnoses | Order Schedule | | | | ty | | | + +---------+--------+ + + | MRI BRAIN TUMOR | Imaging | Routin | Brain metastases | Expected: 07/21/2020 | | EVALUATION [facility] | | e | (HCC) | (Approximate), | | CONTRAST | | | | Expires: 05/21/2021 | + +---------+--------+ + + documented as of this encounter Visit Diagnoses + + | Diagnosis | + + | Brain metastases (HCC) - Primary Secondary malignant neoplasm of brain and spinal | | cord | + + documented in this encounter"
--- OUTSIDE RECORDS SUMMARY | ~2020-06-29 | XMS | Encounter Summary ---
Demographics + + + | Address | [address] | | | [place] [address] | + + + | Home Phone | | + + + | Preferred Language | Unknown | + + + | Marital Status | Single | + + + | Pentecostal Affiliation | CHR | + + + | Race | White | + + + | Ethnic Group | Not or | + + + Author + + + | Author | [facility] | + + + | Organization | [facility] | + + + | Address | Unknown | + + + | Phone | Unavailable | + + + Support + + +---------+ + | Name | Relationship | Address | Phone | + + +---------+ + | William Talavera | ECON | Unknown | | + + +---------+ + Care Team Providers + +------+ + | Care Laser Engineer Name | Role | Phone | [...] + + + + | 10/10/ | Clinical | Laboratory at [facility] | | Lab Draw | | 2020 | Support | [address] | | | | | Staff | [facility] | | | | | | and Healing, | | | | | | [address] | | | | | | [place], [place] | | | | | | [address] | | | | | | [phone] | | | +--------+ + + + [...] documented as of this encounter Progress Notes Hui Saxena RN - 10/10/2019 9:00 AM PSTPIV started per protocol for labs and treateme nt. CBC, CMP, TSH, free T4 and cortisol drawn via PIV and sent to lab. Pt tolerated without incident. Pt discharged to provider visit. documented in this en counter Plan of Treatment Not on filedocumented as of this encounter Procedures + +--------+ + + + | Procedure Name | Priori | Date/Time | Associated Diagnosis | Comments | | | ty | | | | + +--------+ + + + | FREE T4 - OLP | Routin | 10/10/2019 | Renal cell | Results for this | | | e | 9:08 AM | carcinoma of left | procedure are in the | | | | PST | kidney (HCC) | results section. | + +--------+ + + + | TSH - OLP | Routin | 10/10/2019 | Renal cell | Results for this | | | e | 9:08 AM | carcinoma of left | procedure are in the | | | | PST | kidney (HCC) | results section. | + +--------+ + + + | CORTISOL, SERUM - | Routin | 10/10/2019 | Renal cell | Results for this | | OLP | e | 9:08 AM | carcinoma of left | procedure are in the | | | | PST | kidney (HCC) | results section. | + +--------+ + + + | CBC AND AUTO DIFF - | Routin | 10/10/2019 | Renal cell | Results for this | | [facility] | e | 9:08 AM | carcinoma of left | procedure are in the | | | | PST | kidney ([facility]) | results section. | + +--------+ + + + | COMPLETE METABOLIC | Routin | 10/10/2019 | Renal cell | Results for this | | PANEL - OLP | e | 9:08 AM | carcinoma of left | procedure are in the | | | | PST | kidney ([facility]) | results section. | + +--------+ + + + | CBC WITH AUTO DIFF - | Routin | 10/10/2019 | Renal cell | Results for this | | OLP | e | 9:08 AM | carcinoma of left | procedure are in the | | | | PST | kidney ([facility]) | results section. | + +--------+ + + + | [facility] - COMPLETE | Routin | 10/10/2019 | Renal cell | Results for this | | METABOLIC SET | e | 9:08 AM | carcinoma of left | procedure are in the | | | | PST | kidney ([facility]) | results section. | + +--------+ + + + | FREE T4 | Routin | 10/10/2019 | Renal cell | Results for this | | | e | 9:08 AM | carcinoma of left | procedure are in the | | | | PST | kidney ([facility]) | results section. | + +--------+ + + + | TSH | Routin | 10/10/2019 | Renal cell | Results for this | | | e | 9:08 AM | carcinoma of left | procedure are in the | | | | PST | kidney ([facility]) | results section. | + +--------+ + + + | CORTISOL, SERUM | Routin | 10/10/2019 | Renal cell | Results for this | | | e | 9:08 AM | carcinoma of left | procedure are in the | | | | PST | kidney ([facility]) | results section. | + +--------+ + + + documented in this encounter Results CORTISOL, SERUM (10/10/2019 9:08 AM PST) + +-------+ + + + | Component | Value | Ref Range | Performed | Pathologist | | | | | At | Signature | + +-------+ + + + | CORTISOL, | 21.9 | ug/dL | [facility] | | | [...] | + + + + + | [facility] | [address] | [place] [address] | | | [place]INE[place] | [address] | | | + + + + + FREE T4 (10/10/2019 9:08 AM PST) + +-------+ + + + | Component | Value | Ref Range | Performed | Pathologist | | | | | At | Signature | + +-------+ + + + | FREE T4 | 1.2 | 0.6 - 1.2 ng/dL | [facility] [...] | + + + + + | [facility] | [address] | [place] [address] | | | SERVICES, CORE | [address] | | | + + + + + TSH (10/10/2019 9:08 AM PST) + + + + + + | Component | Value | Ref Range | Performed | Pathologist | | | | | At | Signature | + + + + + + | TSH | 18.40 (H) | 0.50 - 5.07 | [facility] [...] + | [facility] | [address] | [place] [address] | | | SERVICES, [facility] | [address] | | | + + + + + [facility] - COMPLETE METABOLIC SET (10/10/2019 9:08 AM PST) + + + + + + | Component | Value | Ref Range | Performed | Pathologist | | | | | At | Signature | + + + + + + | GLUCOSE, | 93 | 70 - 99 mg/dL | [facility] | | | PLASMA | | | LABORATORY | | | (LAB) | | | SERVICES, | | | | | | [facility] | | | | | | HEALTH [...] + + + + | CREATININE | 1.37 (H) | 0.60 - 1.10 | [facility] [...] | | | LABORATORY | | | [place] | | | SERVICES, | | | [...] + + + + | SODIUM, | 132 (L) | 136 - 145 | [facility] [...] + + + + | CHLORIDE, | 102 | 97 - 108 mmol/L | [facility] | | | PLASMA | | | LABORATORY | | | (LAB) | | | SERVICES, | | | | | | [facility] | [facility] + | | | | | | [facility]AL[facility] | | + + + + + + | TOTAL CO2, | 21 | 21 - 32 mmol/L | [facility] | | | PLASMA | | | LABORATORY | | | (LAB) | | | SERVICES, | | | | | | [facility] | | [facility] + | | | | | | HEALING | | + + + + + + | CALCIUM, | 8.3 (L) | 8.6 - 10.2 | [facility] | | | PLASMA | | mg/dL | LABORATORY | | | (LAB) | | | SERVICES, | | | | | | [facility] | [facility] | [facility] + | | | | | | [facility]ALING | | + + + + + + | CALCIUM(ALB | 9.7 | 8.6 - 10.2 | [facility] | | | CORRECTED) | | mg/dL | LABORATORY | | | | | | SERVICES, | | | | | | [facility] | | [facility] + | | | | | | HEALING | | + + + + + + | BILIRUBIN | 0.6 | 0.3 - 1.2 mg/dL | [facility] | | | TOTAL | | | LABORATORY | | | | | | SERVICES, | | | | | | [facility] | [facility] | [facility] + | | | | | | HEALING | | + + + + + + | TOTAL | 5.8 (L) | 6.4 - 8.2 g/dL | [facility] | | | PROTEIN, | | | LABORATORY | | | PLASMA | | | SERVICES, | | | (LAB) | | | [facility] | | | [facility] + | | | | | | HEALING | | + + + + + + | ALBUMIN, | 2.2 (L) | 3.5 - 4.7 g/dL | [facility] | | | PLASMA | | | LABORATORY | | | (LAB) | | | SERVICES, | | | | | | [facility] | | [facility] | [facility] + | | | | | | [facility]ALING | | + + + + + + | ALK PHOS | 120 (H) | 42 - 98 U/L | [facility] | | | | | | LABORATORY | | | | | | SERVICES, | | | | | | [facility] | [facility] + | | | | | | HEALING | | + + + + + + | AST(SGOT) | 57 (H) | <=41 U/L | [facility] | | | | | | LABORATORY | | | | | | SERVICES, | | | | | | [facility] | [facility] | [facility] + | | | | | | HEALING | | + + + + + + | ALT (SGPT) | 22 | <=60 U/L | [facility] | | [...] + + + + | ANION | 13 (H) | 4 - 11 mmol/L | [...] + + + + | ALBUMIN/NICOLETTE | 0.6 (L) | 0.9 - 2.0 | [facility] | | | BULIN RATIO | | | LABORATORY | | | | | | SERVICES, | | | | | | [facility] | | | | | | HEALTH [...] | + + + + + | [facility] | [address] | [place] [address] | | | SERVICES, [facility] | | | | | HE[facility] + HEALING | | | | + + + + + CBC AND AUTO DIFF - CH (10/10/2019 9:08 AM PST) + + + + + + | Component | Value | Ref Range | Performed | Pathologist | | | | | At | Signature | + + + + + + | WHITE CELL | 4.61 | 3.50 - 10.80 | [facility] | | | COUNT | | K/cu mm | LABORATORY | | | | | | SERVICES, | | | | | | [facility] | [facility] + | | | | | | [facility]ALING | | + + + + + + | RED CELL | 4.23 | 4.00 - 5.20 | [facility] | | | COUNT | | M/cu mm | LABORATORY | | | | | | SERVICES, | | | | | | [facility] | [facility] | [facility] + | | | | | | [facility]ALING | | + + + + + + | HEMOGLOBIN | 11.8 (L) | 12.0 - 16.0 | [facility] | | | | | g/dL | LABORATORY | | | | | | SERVICES, | | | | | | [facility] | [facility] + | | | | | | [facility]ALING | | + + + + + + | HEMATOCRIT | 37.3 | 36.0 - 46.0 % | [facility] | | | | | | LABORATORY | | | | | | SERVICES, | | | | | | [facility] | [facility] + | | | | | | [facility]ALING | | + + + + + + | MCV | 88.2 | 80.0 - 100.0 fL | [facility] | | | | | | LABORATORY | | | | | | SERVICES, | | | | | | [facility] | [facility] + | | | | | | [facility]ALING | | + + + + + + | MCHC | 31.6 (L) | 32.0 - 36.0 | [facility] | | | | | g/dL | LABORATORY | | | | | | SERVICES, | | | | | | [facility] | [facility] + | | | | | | HEALING | | + + + + + + | RDW SD | 54.2 (H) | 35.1 - 46.3 fL | [facility] | | | | | | LABORATORY | | | | | | SERVICES, | | | | | | [facility] + | | | | | | [facility]ALING | | + + + + + + | PLATELET | 228 | 150 - 400 K/cu | [facility] [...] + + + + | NEUTROPHIL | 61.5 | 50.0 - 70.0 % | [facility] | | | % | | | LABORATORY | | | | | | SERVICES, | | | | | | [facility] | [facility] + | | | | | | HEALING | | + + + + + + | LYMPHOCYTE | 20.2 | 18.0 - 42.0 % | [facility] | | | % | | | LABORATORY | | | | | | SERVICES, | | | | | | [facility] | | [facility] + | | | | | | HEALING | | + + + + + + | MONOCYTE % | 9.8 (H) | 3.5 - 9.0 % | [facility] | | | | | | LABORATORY | | | | | | SERVICES, | | | | | | [facility] | | [facility] + | | | | | | HEALING | | + + + + + + | EOS % | 5.9 (H) | 1.0 - 3.0 % | [facility] | | | | | | LABORATORY | | | | | | SERVICES, | | | | | | [facility] | [facility] + | | | | | | HEALING | | + + + + + + | BASO % | 2.4 (H) | 0.0 - 2.0 % | [facility] | | | | | | LABORATORY | | | | | | SERVICES, | | | | | | [facility] | | [facility] + | | | | | | HEALING | | + + + + + + | IG% | 0.2 | 0.0 - 1.0 % | [facility] | | | | | | LABORATORY | | | | | | SERVICES, | | | | | | [facility] | | [facility] + | | | | | | HEALING | | + + + + + + | NEUTROPHIL | 2.84 | 1.80 - 7.70 | [facility] | | | # | | K/cu mm | LABORATORY | | | | | | SERVICES, | | | | | | [facility] | | [facility] + | | | | | | HEALING | | + + + + + + | NEUTROPHIL | 2.84Comment: Preliminary | 1.80 - 7.70 | [facility] [...] + + + + | LYMPHOCYTE | 0.93 (L) | 1.00 - 4.80 | [facility] | | | # | | K/cu mm | LABORATORY | | | | | | SERVICES, | | | | | | [facility] | | [facility] + | | | | | | HEALING | | + + + + + + | MONOCYTE # | 0.45 | 0.10 - 0.90 | [facility] | | | | | K/cu mm | LABORATORY | | | | | | SERVICES, | | | | | | [facility] | | [facility] + | | | | | | HEALING | | + + + + + + | EOS # | 0.27 | 0.00 - 0.50 | [facility] | | | | | K/cu mm | LABORATORY | | | | | | SERVICES, | | | | | | [facility] | | [facility] | [facility] + | | | | | | HEALING | | + + + + + + | BASO # | 0.11 (H) | 0.00 - 0.10 | [facility] | [...] | included in the neutrophil count. 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
--- OUTSIDE RECORDS SUMMARY | ~2020-06-29 | XMS | Encounter Summary ---
Demographics + + + | Address | [address] | | | [place] [address] | + + + | Home Phone | | + + + | Preferred Language | Unknown | + + + | Marital Status | | + + + | Mandaen Affiliation | 1013 | + + + | Race | or Other | + + + | Ethnic Group | Not or | + + + Author + + + | Author | [facility] | | | and Shahram | + + + | Organization | [facility] | | | and Marcana [...] Team Providers + +------+ + | Care Sign Painter Helper Name | Role | Phone | + [...] | Secondary | Aileen M, | [place] | | | | | cancer of | MD [address] | [place], | | | | | bone (HCC) | [address] | [place] [address] | | | | | Metastatic | [place], | Phone: | | | | | renal cell | [place] [address] | [phone] | | | | | carcinoma, | Phone: | Fax: | | | | | unspecified | [phone] | [phone] | | | | | laterality | Fax: | | | | | | (HCC) | [phone] | | | | | | Procedures [...] | +--------+ + + + + | 12/07/ | Orders Only | [facility] J[facility] | Aileen Denson | Metastatic renal | | 2020 | | [facility] | MD Khushboo [address] | cell carcinoma, | | | | [facility] [address] | [place], [place] | unspecified | | | | [facility] | [address] | laterality (HCC) | | | | [place] [address] | | (Primary Dx); | | | | [phone] | | Secondary cancer of | | | | | | bone (HCC) | +--------+ + + + + [...] Not on filedocumented as of this encounter Results CT Treatment Plan Complex [...] + | Diagnosis | + + | Metastatic renal cell carcinoma, unspecified laterality (HCC) - Primary | + + | 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
--- OUTSIDE RECORDS SUMMARY | ~2020-06-29 | XMS | Encounter Summary ---
Demographics + + + | Address | [address] | | | [place] [address] | + + + | Home Phone | | + + + | Preferred Language | Unknown | + + + | Marital Status | Single | + + + | Zoroastrian Affiliation | CHR | + + + | Race | White | + + + | Ethnic Group | Not or | + + + Author + + + | Author | [facility] | + + + | Organization | [facility] | + + + | Address | Unknown | + + + | Phone | Unavailable | + + + Support + + +---------+ + | Name | Relationship | Address | Phone | + + +---------+ + | William Talavera | ECON | Unknown | | + + +---------+ + Care Team Providers + +------+ + | Care Powerhouse Oiler Name | Role | Phone | + +------+ + | Lissette Martinez PA-C | PCP | | + +------+ + Encounter Details +--------+ + + + + | Date | Type | Department | Care Team | Description | +--------+ + + + + | 01/05/ | Telephone-S | [facility] at | Vikki Damico | | | 2019 | [place] | [facility] [address] | | | | | [facility] | [facility] | | | | | Health and Healing, | [place], [place] | | | | | [facility] | [address] | | | | | [place], [place] | [phone] | | | | | [address] | | | | | | [phone] | | | +--------+ + + + [...] documented as of this encounter Progress Notes Vikki Damico PA - 01/06/2020 11:00 AM PDTPatient agrees to a telephone encounter for today's visit. They understand they may be responsible for the balance after insurance proc esses the claim. The visit took place via telephone with the provider located at the distant site of [facility]. T he patient stated they were located at the originating site of home and were in the state of [place] at the time of the telephone visit. The names of all persons participating in the rhiannon visit and their roles are: Felix Esquivel MA; Vikki Damico PA-C. Time spent on the call: 15 min. The patients encounter was accomplished via a telephone call today due to COVID-19 precauti onary measures to limit the patient's unnecessary exposure. ED FOLLOW-UP Subjective: Tila Altman presents to clinic today for a routine ED follow up visit. She is a current stage IV RCC pt which is c/b L2 pathologic fracture s/p kyphoplasty 08/2019 w ho was found to have incidental L1 fracture on surveillance CT on 11/21/19. She had presented to ED from oncology clinic for hypotension. Today, Tila reports she is doing okay overall. She completed radiation treatments last we . She feels the radiation has helped a lot with wht initial back pain and it is now decrea sed. She still does have some pain and this is controlled with oxycodone. She was off her ox ycodone for about a day when waiting for her refill and reports worsening pain, described as tightness in low back muscles. Tila denies pain, numbness, and tingling to her BLEs. She does report generalized weaknes s in her legs, giving the example of needing help getting out of chair, however she feels th is may be due to pain. She reports difficult going up stairs (she has 2 into her house), par ticularly when stepping up with her left leg, but this is improving. She denies new focal we akness. Denies bowel and bladder incontinence. Would like to discuss activity restrictions. Assesment: Tila Altman is a 54 y.o. female with Hodgkin's disease, Hypercalcemia of mal ignancy, Hypertension, Hypothyroidism, Hypothyroidism, Pathologic compression fracture of jana mbar vertebra, initial encounter, and Renal cell carcinoma. Plan: Advised on gradual resumption of activities. Discussed utilizing caution as oxycodone may m padmini her feel able to increase activity too much. Advised on concerning neurologic signs and symptoms for which she should call our office. RTC prn for reassessment. Should the patient have any questions or concerns they will contact the clinic. [facility] [address] Mailcode: [place] [address] documented in this encounter Plan of Treatment Not on filedocumented as of this encounter Visit Diagnoses + + | Diagnosis | + + | Closed fracture of first lumbar vertebra, unspecified fracture morphology, initial | | encounter ([facility]) - Primary | + + documented in this encounter"
--- OUTSIDE RECORDS SUMMARY | ~2020-06-29 | XMS | Encounter Summary ---
Demographics + + + | Address | [address] | | | [place] [address] | + + + | Home Phone | | + + + | Preferred Language | Unknown | + + + | Marital Status | Single | + + + | Spiritism Affiliation | CHR | + + + | Race | White | + + + | Ethnic Group | Not or | + + + Author + + + | Author | [facility] | + + + | Organization | [facility] | + + + | Address | Unknown | + + + | Phone | Unavailable | + + + Support + + +---------+ + | Name | Relationship | Address | Phone | + + +---------+ + | William Talavera | ECON | Unknown | | + + +---------+ + Care Team Providers + +------+ + | Care Solar Installation Crew Supervisor Name | Role | Phone | + +------+ + | Lissette Martinez PA-C | PCP | | + +------+ + Encounter Details +--------+------+ + + + | Date | Type | Department | Care Team | Description | +--------+------+ + + + | 09/12/ | Lab | Laboratory at [facility] | | Renal cell carcinoma | | 2020 | | [address] | | of left kidney | | | | [facility] | | ([facility]) | | | | and Healing, | | | | | | [address] | | | | | | [place], [place] | | | | | | [address] | | | | | | [phone] | | | +--------+------+ + + + Social History + +-------+ [...] +--------+ + + + | [facility] - URINE, | Routin | 09/12/2019 | Renal cell | Results for this | | MICROSCOPIC | e | 11:41 AM | carcinoma of left | procedure are in the | | | | PST | kidney (HCC) | results section. | + +--------+ + + + | UA, DIPSTICK ONLY | Routin | 09/12/2019 | Renal cell | Results for this | | | e | 11:41 AM | carcinoma of left | procedure are in the | | | | PST | kidney ([facility]) | results section. | + +--------+ + + + | CBC AND AUTO DIFF | Routin | 09/12/2019 | Renal cell | Results for this | | | e | 11:34 AM | carcinoma of left | procedure are in the | | | | PST | kidney ([facility]) | results section. | + +--------+ + + + | CBC, WITH | Routin | 09/12/2019 | Renal cell | Results for this | | DIFFERENTIAL | e | 11:34 AM | carcinoma of left | procedure are in the | | | | PST | kidney ([facility]) | results section. | + +--------+ + + + | COMPLETE METABOLIC | Routin | 09/12/2019 | Renal cell | Results for this | | SET | e | 11:34 AM | carcinoma of left | procedure are in the | | (NA,K,CL,CO2,BUN,CRE | | PST | kidney (HCC) | results section. | | AT,GLUC,CA,AST,ALT,B | | | | | | MARTIN TOTAL,ALK | | | | | | PHOS,ALB,PROT TOTAL) | | | | | + +--------+ + + + documented in this encounter Results UA, DIPSTICK ONLY (09/12/2019 11:41 AM PST) + + + + + + | Component | Value | Ref Range | Performed | Pathologist | | | | | At | Signature | + + + + + + | COLOR(UR) | Ctarina (A) | Light Yellow, | [facility] | | | | | Yellow, Dark | LABORATORY | | | | | Yellow | SERVICES, | | | | | | [facility] + | | | | | | HEALING | | + + + + + + | APPEARANCE | Cloudy (A) | Clear | [facility] | | | | | | LABORATORY | | | | | | SERVICES, | | | | | | [facility] | [facility] + | | | | | | HEALING | | + + + + + + | GLUCOSE(UR) | 100.0 | Negative, 100.0 | [facility] | | | | | mg/dL | LABORATORY | | | | | | SERVICES, | | | | | | [facility] | | | | [facility] + | | | | | | HEALING | | + + + + + + | PROTEIN(LAB | =>300.0 (A) | Negative, | [facility] | | | ) | | Trace, 15.0 | LABORATORY | | | | | mg/dL | SERVICES, | | | | | | [facility] | | | | [facility] + | | | | | | HEALING | | + + + + + + | BILIRUBIN | Small (A) | Negative | [facility] | | | | | | LABORATORY | | | | | | SERVICES, | | | | | | [facility] | | [facility] + | | | | | | HEALING | | + + + + + + | UROBILINOGE | 0.2 | 0.2 , 1.0 | [facility] | | | N | | mg/dL | LABORATORY | | [...] + + + + | KETONES | Negative | Negative mg/dL | [facility] | | [...] + + + + | SPECIFIC | 1.025 | 1.005 - 1.030 | [facility] | | | GRAVITY | | | LABORATORY | | | | | | SERVICES, | | | | | | [facility] | [facility] | [facility] + | | | | | | HEALING | | + + + + + + + + | Specimen | + + | Urine - Urine | | specimen collection, | | clean catch | | (procedure) | + + + + + | Narrative | Performed At | + + + | Positive bilirubin dipstick results are not confirmed by an | [facility] | | alternate method. Suggest serum total bilirubin and/or liver function | LABORATORY | | panel if clinically indicated. | SERVICES, | | | [facility] | | | [facility]ALTH + | | | HEALING | + + + + + + + + | Performing | Address | City/State/Zipcode | Phone Number | | Organization | | | | + + + + + | [facility] | [address] | [place] [address] | | | [facility] | | | | | HE[facility] + HEALING | | | | + + + + + [facility] - URINE, MICROSCOPIC (09/12/2019 11:41 AM PST) + +---------+ + + + | Component | Value | Ref Range | Performed | Pathologist | | | | | At | Signature | + +---------+ + + + | RED CELLS | 400 (H) | 0 - 3 /hpf | [facility] | | | | | | LABORATORY | | | | | | [facility], | | | | | | [facility] | [facility] + | | | | | | HEALING | | + +---------+ + + + | WHITE CELLS | 1 | 0 - 5 /hpf | [facility] | | | | | | LABORATORY | | | | | | SERVICES, | | | | | | [facility] | [facility] + | | | | | | HEALING | | + +---------+ + + + | BACTERIA | Few (A) | None /hpf | [facility] | | | | | | LABORATORY | | | | | | SERVICES, | | | | | | [facility] | [facility] + | | | | | | HEALING | | + +---------+ + + + | YEAST (LAB) | None | None /hpf | [facility] | | | | | | LABORATORY | | | | | | SERVICES, | | | | | | [facility] | | | [facility] + | | | | | | HEALING | | + +---------+ + + + | SQUAMOUS | Few | None, Few /hpf | [facility] | | | EPITHELIAL | | | LABORATORY | | | | | | SERVICES, | | | | | | [facility] | | [facility] + | | | | | | HEALING | | + +---------+ + + + | MUCOUS | None | None, Few /hpf | [facility] | | | | | | LABORATORY | | | | | | SERVICES, | | | | | | [facility] | | [facility] + | | | | | | HEALING | | + +---------+ + + + | NON-SQUAMOU | None | None /hpf | [facility] | | | S EPITH | | | LABORATORY | | | | | | SERVICES, | | | | | | [facility] | | | | | | [facility] + | | | | | | HEALING | | + +---------+ + + + | HYALINE | 0 | 0 - 2 /lpf | [facility] | | | CASTS | | | LABORATORY | | | | | | SERVICES, | | | | | | [facility] | | | | | | [facility] + | | | | | | HEALING | | + +---------+ + + + | GRANULAR | 0 | 0 - 2 /lpf | [facility] | | | CASTS | | | LABORATORY | | | | | | SERVICES, | | | | | | [facility] | | | | | | [facility] + | | | | | | HEALING | | + +---------+ + + + | CELLULAR | 0 | <=0 /lpf | [facility] | | | CASTS | | | LABORATORY | | | | | | SERVICES, | | | | | | [facility] | | | [facility] + | | | | | | HEALING | | + +---------+ + + + | TRIPLE P04 | None | None, Few /hpf | [facility] | | | CRYSTALS | | | LABORATORY | | | | | | SERVICES, | | | | | | [facility] | | | | | | [facility] + | | | | | | HEALING | | + +---------+ + + + | CALCIUM | None | None, Few /hpf | [facility] | | | OXALATE | | | LABORATORY | | | MILAN | | | SERVICES, | | | | | | [facility] | | | | | | [facility] + | | | | | | HEALING | | + +---------+ + + + | URIC ACID | None | None, Few /hpf | [facility] | | | CRYSTALS | | | LABORATORY | | | | | | SERVICES, | | | | | | [facility] | | | | | | [facility] + | | | | | | HEALING | | + +---------+ + + + | AMORPHOUS | None [...] + | Urine - Urine | | specimen collection, | | clean catch | | (procedure) | + + + + + + + | Performing | Address | City/State/Zipcode | Phone Number | | Organization | | | | + + + + + | [facility] | [address] | [place] [address] | | | SERVICES, [facility] | | | | | HE[facility] + HEALING | | | | + + + + + CBC AND AUTO DIFF (09/12/2019 11:34 AM PST) + + + + + + | Component | Value | Ref Range | Performed | Pathologist | | | | | At | Signature | + + + + + + | WHITE CELL | 4.02 | 3.50 - 10.80 | [facility] | | | COUNT | | K/cu mm | LABORATORY | | | | | | SERVICES, | | | | | | [facility] | | | | | [facility] + | | | | | | HEALING | | + + + + + + | RED CELL | 4.12 | 4.00 - 5.20 | [facility] | [...] + + + + | HEMATOCRIT | 37.2 | 36.0 - 46.0 % | [facility] | | | | | | LABORATORY | | | | | | SERVICES, | | | | | | [facility] | | | | | | [facility] + | | | | | | HEALING | | + + + + + + | MCV | 90.3 | 80.0 - 100.0 fL | [facility] | | | | | | LABORATORY | | | | | | SERVICES, | | | | | | [facility] | | | | | | [facility] + | | | | | | HEALING | | + + + + + + | MCHC | 30.9 (L) | 32.0 - 36.0 | [facility] [...] + + + + | PLATELET | 195 | 150 - 400 K/cu | [facility] [...] + + + + | NEUTROPHIL | 75.7 (H) | 50.0 - 70.0 % | [facility] | | | % | | | LABORATORY | | | | | | SERVICES, | | | | | | [facility] | | | | | | [facility] + | | | | | | HEALING | | + + + + + + | LYMPHOCYTE | 12.4 (L) | 18.0 - 42.0 % | [facility] | | | % | | | LABORATORY | | | | | | SERVICES, | | | | | | [facility] | | | | | | [facility] + | | | | | | HEALING | | + + + + + + | MONOCYTE % | 9.2 (H) | 3.5 - 9.0 % | [facility] | | | | | | LABORATORY | | | | | | SERVICES, | | | | | | [facility] | | | | | | [facility] + | | | | | | HEALING | | + + + + + + | EOS % | 1.2 | 1.0 - 3.0 % | [facility] | | | | | | LABORATORY | | | | | | SERVICES, | | | | | | [facility] | | | | | | [facility] + | | | | | | HEALING | | + + + + + + | BASO % | 1.0 | 0.0 - 2.0 % | [facility] | | | | | | LABORATORY | | | | | | SERVICES, | | | | | | [facility] | | | | | | [facility] + | | | | | | HEALING | | + + + + + + | IG% | 0.5 | 0.0 - 1.0 % | [facility] | | | | | | LABORATORY | | | | | | SERVICES, | | | | | | [facility] | | | | | | [facility] + | | | | | | HEALING | | + + + + + + | NEUTROPHIL | 3.04 | 1.80 - 7.70 | [facility] | | | # | | K/cu mm | LABORATORY | | | | | | SERVICES, | | | | | | [facility] | | | | | | [facility] + | | | | | | HEALING | | + + + + + + | NEUTROPHIL | 3.04Comment: Preliminary | 1.80 - 7.70 | [facility] [...] + + + | MONOCYTE # | 0.37 | 0.10 - 0.90 | [facility] | | | | | K/cu mm | LABORATORY | | | | | | SERVICES, | | | | | | [facility] | | | | | [facility] + | | | | | | HEALING | | + + + + + + | EOS # | 0.05 | 0.00 - 0.50 | [facility] | | | | | K/cu mm | LABORATORY | | | | | | SERVICES, | | | | | | [facility] | | [facility] | | | [facility] + | | | | | | HEALING | | + + + + + + | BASO # | 0.04 | 0.00 - 0.10 | [facility] | [...] | included in the neutrophil count. | [facility] | | | [facility]ALTH + | | | HEALING | + + + + + + + + | Performing | Address | City/State/Zipcode | Phone Number | | Organization | | | | + + + + + | [facility] | [address] | [place] [address] | | | SERVICES, [facility] | | | | | [facility] + [facility]AL[facility] | | | | + + + + + COMPLETE METABOLIC SET (NA,K,CL,CO2,BUN,CREAT,GLUC,CA,AST,ALT,BILI TOTAL,ALK PHOS,ALB,PROT TOTAL) (09/12/2019 11:34 AM PST) + + + + + [...] + + + | BUN, PLASMA | 23 (H) | 6 - 20 mg/dL | [facility] | | | (LAB) | | | LABORATORY | | | | | | SERVICES, | | | | | | [facility] | | | | | | [facility] + | | | | | | HEALING | | + + + + + + | CREATININE | 1.31 (H) | 0.60 - 1.10 | [facility] | | | PLASMA | | mg/dL | LABORATORY | | | (LAB) | | | SERVICES, | | | | | | [facility] | | | | | [facility] + | | | | | | HEALING | | + + + + + + | EGFR | 51 (L) | >60 mL/min | [facility] | | | - | | | LABORATORY | | | COLOMBIAN | | | SERVICES, | | | | | | [facility] | | | | | | [facility] + | | | | | | HEALING | | + + + + + + | EGFR NON | 42 (L) | >60 mL/min | [facility] | [...] + + + + | CHLORIDE, | 104 | 97 - 108 mmol/L | [facility] | | | PLASMA | | | LABORATORY | | | (LAB) | | | SERVICES, | | | | | | [facility] | | | | | | [facility] + | | | | | | HEALING | | + + + + + + | TOTAL CO2, | 25 | 21 - 32 mmol/L | [facility] | | | PLASMA | | | LABORATORY | | | (LAB) | | | SERVICES, | | | | | | [facility] | | | | | | [facility] + | | | | | | HEALING | | + + + + + + | CALCIUM, | 10.5 (H) | 8.6 - 10.2 | [facility] | | | PLASMA | | mg/dL | LABORATORY | | | (LAB) | | | SERVICES, | | | | | | [facility] | | | | | [facility] + | | | | | | HEALING | | + + + + + + | CALCIUM(ALB | 11.6 (H) | 8.6 - 10.2 | [facility] | | | CORRECTED) | | mg/dL | LABORATORY | | | | | | SERVICES, | | | | | | [facility] | | | | | [facility] + | | | | | | HEALING | | + + + + + + | BILIRUBIN | 0.7 | 0.3 - 1.2 mg/dL | [facility] | | | TOTAL | | | LABORATORY | | | | | | SERVICES, | | | | | | [facility] | | | | | | [facility] + | | | | | | HEALING | | + + + + + + | TOTAL | 6.5 | 6.4 - 8.2 g/dL | [facility] | | | PROTEIN, | | | LABORATORY | | | PLASMA | | | SERVICES, | | | (LAB) | | | [facility] | | | | | [facility] + | | | | | | HEALING | | + + + + + + | ALBUMIN, | 2.6 (L) | 3.5 - 4.7 g/dL | [...] + + + + | AST(SGOT) | 45 [...] + + + + | ANION | 12 (H) | 4 - 11 [...] + + + + | BUN/CREATIN | 18 | 8 - 25 | [facility] | [...] + + + + | ALBUMIN/NICOLETTE | 0.7 (L) | 0.9 - 2.0 | [facility] | | | BULIN RATIO | | | LABORATORY | | | | | | SERVICES, | | | | | | [facility] | | | | | | [...] + + | Performing | Address | City/State[facility] | Phone Number | | Organization | | | | + + + + + | [facility] | [address] | [place] [address] | | | SERVICES, [facility] | | | | | [facility] + HEALING | | | | + + + + + documented in this encounter Visit Diagnoses + + | Diagnosis | + + | 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) | + + documented in this encounter"
--- OUTSIDE RECORDS SUMMARY | ~2020-06-29 | XMS | Encounter Summary ---
Demographics + + + | Address | [address] | | | [place] [address] | + + + | Home Phone [...] + + + | Author | [facility] | + + + | Organization | [facility] | + + + | Address | Unknown | + + + | Phone | Unavailable | + + + Support + + +---------+ + | Name | Relationship | Address | Phone | + + +---------+ + | William Talavera | ECON | Unknown | | + + +---------+ + Care Team Providers + +------+ + | Care Client Partner Name | Role | Phone | + +------+ + | Lissette Martinez PA-C | PCP | | + +------+ + Reason for Visit + + + | Reason | Comments | + + + | Medical nutrition | | | therapy | | + + + Consultation (Routine) + +--------+ + + + + | Status | Reason | Specialty | Diagnoses / | Referred By | Referred To | | | | | Procedures | Contact | Contact | + +--------+ + + + + | New Request | | Nutrition | Diagnoses | Karen, | [place], | | | | | Kidney | Lissette, | KESHA Aragon | | | | | cancer, | [place] [address] [address] | [address] | | | | | primary, | [address] | [address] | | | | | with | [address] | [place], [place] | | | | | metastasis | [place], | [address] | | | | | from kidney | [place] | Phone: | | | | | to other | [address] | [phone] | | | | | site, left | Phone: | Fax: | | | | | (HCC) | [phone] | [phone] | | | | | Procedures | Fax: | | | | | | CONSULT TO | [phone] | | | | | | ADULT | | | | | | | MEDICAL | | | | | | | NUTRITIONAL | | | | | | | THERAPY | | | + +--------+ + + + + Encounter Details +--------+ + + + + | Date | Type | Department | Care Team | Description | +--------+ + + + + | 12/22/ | Telephone-S | Hematology/Medical | Margo eRid RD | Medical nutrition | | 2020 | cheduled | Oncology at [facility] | [address] | therapy | | | | [address] | [place], [place] | | | | | [facility] | [address] | | | | | and Healing, | [phone] | | | | | [address] | | | | | | [place], [place] | | | | | | [address] | | | | | | [phone] | | | +--------+ + + + [...] documented as of this encounter Progress Notes Margo Reid, RD - 12/23/2019 2:30 PM PDT Referred by: Lissette Jones MD Referred for diagnosis: RCC Visit type: Initial Spent 20 minutes via phone consult with patient. 54 year old, female Nutrition Assessment: Questions/ Information desired today: Nutrition suggestions. Past Medical History: Diagnosis Date Hodgkin's disease [...] site in 2001 w/ removal in 2002 Current therapy treatment plan: nivo/ipi Medications: Current Medication List Name Sig CHOLECALCIFEROL (VITAMIN D3) 1,250 MCG (50,000 UNIT) CAPSULE Take 1 capsule by mouth every seven days. Indications: vitamin D deficiency (high dose therapy) ENOXAPARIN 80 MG/0.8 ML SUBCUTANEOUS SYRINGE Inject 0.8 mL under the skin (SUBC) every twel ve hours. Indications: anticoagulation treatment LEVOTHYROXINE 100 MCG TABLET Take 1 tablet by mouth before breakfast. LOVASTATIN 20 MG TABLET Take 20 mg by mouth once daily in the evening. Administer with even ing meal. OMEPRAZOLE 20 MG CAPSULE,DELAYED RELEASE Take 1 capsule by mouth two times daily. Administe r 30 to 60 minutes before meals OXYCODONE 5 MG TABLET Take 1 tablet by mouth every four hours as needed for breakthrough pa in. POLYETHYLENE GLYCOL 3350 17 GRAM/DOSE ORAL POWDER Mix 17 g in liquid and drink two times da corby. Indications: constipation SENNOSIDES 8.6 MG-DOCUSATE SODIUM 50 MG TABLET Take 1 tablet by mouth two times daily. Simi cations: constipation Dietary Supplements: Vitamin D 50,000 x 1/week Nutrition related labs to note: Lab Results Component Value Date NA 142 12/12/2019 K 3.6 12/12/2019 CL 110 12/12/2019 BICARB 22 12/12/2019 BUN 17 12/12/2019 CR 1.09 12/12/2019 GLU 82 12/12/2019 CA 8.1 12/12/2019 AST 36 12/12/2019 ALT 13 12/12/2019 AP 89 12/12/2019 TBILI 1.0 12/12/2019 TP 5.7 12/12/2019 ALB 2.1 12/12/2019 ANIONGAP 10 12/12/2019 ANIONALBCOR 14 12/12/2019 ANTHROPOMETRICS: Ht Readings from Last 1 Encounters: 11/21/19 1.575 m (5' 2") Wt Readings from Last 3 Encounters: 11/28/19 88.6 kg (195 lb 4.8 oz) 11/21/19 80.9 kg (178 lb 6.4 oz) 11/01/19 84.8 kg (187 lb) Last 1 Encounter BMI Readings: Date BMI 11/21/2019 35.72 kg/m2 Adj BW 59.6kg Started lasix about a week ago Started RT to back. SYMPTOMS: Appetite has improved. Taste has improved but still notices changes. BM are regular. Dry mouth. Chews on sugar free speermint gum. Also has Biotene mouth rinse FOOD INTAKE: less than usual [place] milk is ok. Lactose free milk (fairlife milk) Cheese if mixed into something is ok. Eating about 3 meals/day; although most often tries to eat 5 small meals/day Apples are good as snacks. Fluid intake: mostly water, dairy does not do well, no soda, fruit juices (citrus stuff min sn't taste like it should - more bitter tasting) OJ - bitter Tomato - metallic taste Breads (not sure if yeast in bread but doesn't agree) - tingling/burning sensation. Pasta is ok Sorbet FOOD ALLERGIES: No FOOD INTOLERANCES: No Nutrition Diagnosis: Increased nutrient needs as evidenced by need for vitamin D, cancer nu trition guidelines. ESTIMATED NUTRITION NEEDS: 3428-6048 (25-30 kcal/kg); 60-90 gm protein (1-1.5 gm/kg); 1788 mL fluid (30 mL/kg) NUTRITION INTERVENTION and RECOMMENDATIONS EDUCATION PROVIDED: Nutrition suggestions 1) Reviewed patient specific nutrition goals Provided some nutrition intake suggestions; continue frequent eating. - included protein intake goal and hydration - provided information regarding taste changes. Sent via [employer]. PLAN: PATIENT GOALS: 1. Weight stability 2. Adequate kcal, protein, and hydration RD contact information provided. Will continue to follow. Margo ROWANO LD Outpatient Adult Oncology Dietitian P documented in this enc ounter Plan of Treatment Not on filedocumented as of this encounter Visit Diagnoses + + | Diagnosis | + + | Renal cell carcinoma, unspecified laterality (HCC) - Primary | + + documented in this encounter
--- OUTSIDE RECORDS SUMMARY | ~2020-06-29 | XMS | Encounter Summary ---
Demographics + + + | Address | [address] | | | [place] [address] | + + + | Home Phone | | + + + | Preferred Language | Unknown | + + + | Marital Status | Single | + + + | Confucianist Affiliation | CHR | + + + [...] Team Providers + +------+ + | Care [employer] Developer Name | Role | Phone | + +------+ + | Lissette Martinez PA-C | PCP | | + +------+ + Encounter Details +--------+ + + + + | Date | Type | Department | Care Team | Description | +--------+ + + + + | 03/21/ | Pharmacy | Pharmacy @ [facility] | | | | 2019 | Visit | [address] | | | | | | [address] Mailcode: | | | | | | [facility] | | | | | | [facility], | | | | | | [address] | | | | | | [place], [place] | | | | | | [address] | | | +--------+ + + + [...]
--- OUTSIDE RECORDS SUMMARY | ~2020-06-29 | XMS | Encounter Summary ---
Demographics + + + | Address | [address] | | | [place] [address] | + + + | Home Phone | | + + + | Preferred Language | Unknown | + + + | Marital Status | | + + + | Alevism Affiliation | 1013 | + + + | Race | or Other | + + + | Ethnic Group | Not or | + + + Author + + + | Author | [facility] | | | and Shahram | + + + | Organization | [facility] | | | and [...] Team Providers + +------+ + | Care Frit Burner Name | Role | Phone | + +------+ + | Lissette Martinez | PCP | | | RADHA | | | + +------+ + Encounter Details +--------+ + + + + | Date | Type | Department | Care Team | Description | +--------+ + + + + | 12/06/ | Hospital | [facility] | Aileen Denson | | | 2020 | Encounter | MED CTR RADIATION | MD [address] | | | | | ONCOLOGY [address] | [facility], [place] | | | | | [facility], | [address] | | | | | [place] [address] | | | | | | [phone] | | | +--------+ + + + [...]
--- OUTSIDE RECORDS SUMMARY | ~2020-06-29 | XMS | Encounter Summary ---
Demographics + + + | Address | [address] | | | [place] [address] | + + + | Home Phone [...] Team Providers + +------+ + | Care Corn Lab Technician Name | Role | Phone | + +------+ + | Lsisette Martinez PA-C | PCP | | + +------+ + Reason for Visit + +--------+ + | Reason | Onset | Comments | | | Date | | + +--------+ + | RT Treatment Summary | 03/07/ | | | | 2020 | | + +--------+ + Encounter Details +--------+ + + + + | Date | Type | Department | Care Team | Description | +--------+ + + + + | 03/07/ | Documentati | Radiation Oncology | Antwon Beard, | RT Treatment Summary | | 2020 | on | at [facility] [address] | MD [address] | | | | | [address] [place] | [facility] | | | | | [place], 4th floor | [place], [place] | | | | | [place], [place] | [address] | | | | | [address] | [phone] | | | | | [phone] | | | +--------+ + + + [...] this encounter Miscellaneous Notes Telephone Encounter - Antwon Beard MD - 03/12/2020 8:23 AM PDT documented in this encounter Plan of Treatment Not on filedocumented as of this encounter Visit Diagnoses Not on filedocumented in this encounter"
--- OUTSIDE RECORDS SUMMARY | ~2020-06-29 | XMS | Encounter Summary ---
Demographics + + + | Address | [address] | | | [place] [address] | + + + | Home Phone [...] Author + + + | Author | [facility] | + + + | Organization | [facility] | + + + | Address | Unknown | + + + | Phone | Unavailable | + + + Support + + +---------+ + | Name | Relationship | Address | Phone | + + +---------+ + | William Talavera | ECON | Unknown | | + + +---------+ + Care Team Providers + +------+ + | Care Radio Artist Name | Role | Phone | [...] [address] | | | | | [address] [place] | | | | | | [address] | | | | | | [place], [place] | | | | | | [address] | | | | | | [phone] | | | +--------+ + + + [...] Temperature | 36.6 C (97.8 F) | 03/06/2020 9:09 AM | | | | | PDT [...]
--- OUTSIDE RECORDS SUMMARY | ~2020-06-29 | XMS | Encounter Summary ---
Demographics + + + | Address | [address] | | | [place] [address] | + + + | Home Phone | | + + + | Preferred Language | Unknown | + + + | Marital Status | Single | + + + | Temple Affiliation | CHR | + + + | Race | White | + + + | Ethnic Group | Not or | + + + Author + + + | Author | [facility] | + + + | Organization | [facility] | + + + | Address | Unknown | + + + | Phone | Unavailable | + + + Support + + +---------+ + | Name | Relationship | Address | Phone | + + +---------+ + | William Talavera | ECON | Unknown | | + + +---------+ + Care Team Providers + +------+ + | Care Public Relations Coordinator Name | Role | Phone | [...] | | Authorization | | | | [place], [place] | | | | | | [address] | | | +--------+ + + + [...]
--- OUTSIDE RECORDS SUMMARY | ~2020-06-29 | XMS | Encounter Summary ---
Demographics + + + | Address | [address] | | | [place] [address] | + + + | Home Phone | | + + + | Preferred Language | Unknown | + + + | Marital Status | Single | + + + | Sabianist Affiliation | CHR | + + + [...] Team Providers + +------+ + | Care Hand Tire Trimmer Name | Role | Phone | + +------+ + | Lissette Martinez PA-C | PCP | | + +------+ + Encounter Details +--------+ + + + + | Date | Type | Department | Care Team | Description | +--------+ + + + + | 03/19/ | Pharmacy | Pharmacy @ [facility] | | | | 2020 | Visit | [address] | | | | | | [address] Mailcode: | | | | | | [facility] | | | | | | and Healing, | | | | | | [address] | | | | | | [place], [place] | | | | | | [address] | | | +--------+ + + + [...]
--- OUTSIDE RECORDS SUMMARY | ~2020-06-29 | XMS | Encounter Summary ---
Demographics + + + | Address | [address] | | | [place] [address] | + + + | Home Phone | | + + + | Preferred Language | Unknown | + + + | Marital Status | | + + + | Cheondoism Affiliation | 1013 | + + + | Race | or Other | + + + | Ethnic Group | Not or | + + + Author + + + | Author | [facility] | | | and Shahram | + + + | Organization | [facility] | | | and Marcana [...] Providers + +------+ + | Care Supervisor Hydrochloric Area Name | Role | Phone | + +------+ + PCP | Unavailable | + +------+ + Encounter Details +--------+ + + + + | Date | Type | Department | Care Team | Description | +--------+ + + + + | 09/12/ | Hospital | [facility] | | | | 2008 - | Encounter | MED CTR CANCER | | | | | | CENTER [address] | | | | 10/07/ | | [place] | | | | 2008 | | [address] | | | | | | [phone] | | | +--------+ + + + [...]
--- OUTSIDE RECORDS SUMMARY | ~2020-06-29 | XMS | Encounter Summary ---
Demographics + + + | Address | [address] | | | [place] [address] | + + + | Home Phone [...] + + + | Author | [facility] | + + + | Organization | [facility] | + + + | Address | Unknown | + + + | Phone | Unavailable | + + + Support + + +---------+ + | Name | Relationship | Address | Phone | + + +---------+ + | William Talavera | ECON | Unknown | | + + +---------+ + Care Team Providers + +------+ + | Care Senior Product Development Scientist Name | Role | Phone | + [...] | neoplasm of | RADHA Curran | [address] | | | | | unspecified | [place] | [address] | | | | | kidney, | Family | [place], | | | | | except renal | Medicine | [place] [address] | | | | | pelvis | [address] | Phone: | | | | | Procedures | [address] | [phone] | | | | | [place] NEW | [place], | Fax: | | | | | PATIENT | [place] [address] | [phone] | | | | | [place] | Phone: | | | | | | EST PATIENT | [phone] | | | | | | L[place] | Fax: | | | | | | | [phone] | | + +---------+ + + + + Encounter Details +--------+---------+ + + + | Date | Type | Department | Care Team | Description | +--------+---------+ + + + | 10/10/ | Office | [facility] | Lissette Jones, | Renal cell | | 2020 | Visit | Clinics at S | [place] [address] [address] | carcinoma, | | | | [facility] [address] | unspecified | | | | [facility] for | [facility], [place] | laterality (HCC) | | | | Health and Healing, | [address] | (Primary Dx) | | | | [address] | [phone] | | | | | [place], [place] | | | | | | [address] | | | | | | [phone] | | | +--------+---------+ + + + [...] + + + | Blood Pressure | 98/58 | 10/10/2019 10:13 AM | | | | | PST | | + + + + + | Pulse | 115 | 10/10/2019 10:13 AM | | | | | PST | | + + + + + | Temperature | 36.3 C (97.4 F) | 10/10/2019 10:13 AM | | | | | PST | | + + + + + | Respiratory Rate | 16 | 10/10/2019 10:13 AM | | | | | PST | | + + + + + | Oxygen Saturation | 99% | 10/10/2019 10:13 AM | | | | | PST | | + + + + + | Inhaled Oxygen | - | - | | | Concentration | | | | + + + + + | Weight | 86.6 kg (191 lb) | 10/10/2019 10:13 AM | | | | | PST | | + + + + + | Height | - | - | | + + + + + | Body Mass Index | 34.27 | 09/19/2019 9:15 AM | | | | | PST [...] encounter Progress Notes Lissette Jones MD - 10/10/2019 10:10 AM PSTFormatting of this note might be different fr om the original. FOLLOW-UP NOTE Patient: Tila Altman Date: 10/10/2019 : 1965 AGE: 54 y.o. Attending Physician: [...] S/p L2 kyphoplasty 08/29/2019, treatment for hypercalcemia Interval History Tila Altman presents today for cycle 2 of ipi/nivo. Aniket reports fatigue, nausea and fe w days of diarrhea-symptoms improved or resolved after 10 days. Back pain is well controlled . Impression/Plan Tila Altman is a 54 y.o. 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 She has a remote h/o Hodgkins s/p CHOPP and RT with resultant hypothyroidism Hypercalcemia- resolved, now hypocalcemic Hypothyroidism- increase synthroid 150mcg po qday, TSH 18.4 Hyperkalemia- resolved Pain - continue oxycodone prn Repeat UA, cbc, cmp today Cycle 2 ipi/nivo today RTC 3 weeks Medications: Current Outpatient Medications Medication Sig acetaminophen 500 mg oral tablet Take 2 tablets by mouth three times daily as needed fo r mild pain. cholecalciferol 50,000 unit oral capsule Take 1 capsule by mouth once daily. Indication s: vitamin D deficiency (high dose therapy) levothyroxine 137 mcg oral tablet Take 1 tablet by mouth before breakfast. lovastatin 20 mg oral tablet Take 20 mg by mouth once daily in the evening. Administer with evening meal. omeprazole 20 mg oral capsule,delayed release(DR/EC) Take 1 capsule by mouth two times daily. Administer 30 to 60 minutes before meals oxyCODONE (immediate release) 10 mg oral tablet Take 0.5-1 tablets by mouth every six h ours as needed for severe pain. polyethylene glycol 17 gram oral powder in packet Mix 1 packet and take orally once [address] as needed. senna-docusate 8.6-50 mg oral tablet Take 2 tablets by mouth two times daily. No current facility-administered medications for this visit. Review of Systems: A 13 point review of systems was performed and is negative except as above in the HPI. Pain score: ECOG Status: 1 - No physically strenuous activity, but ambulatory and able to carry out lig ht or sedentary work e.g. office work, light house work). Physical Examination: Constitutional NAD HEENT Normocephalic, atraumatic. PERRL/EOMI Neck supple Hematologic/Lymphatic No palpable cervical, supraclavicular, axillary, or inguinal lymphade nopathy. Respiratory chest clear, no wheezing, rales, normal symmetric air entry, chest is clear wit hout rales or wheezing Cardiovascular S1, S2 normal, no murmur, click, rub or gallop, regular rate and rhythm, no pedal edema, no JVD. Abdomen Abdomen is soft without significant tenderness, masses, organomegaly or guarding. Bowel sounds normal. Integumentary Warm and dry. No rash or unusual ecchymoses. Neurologic normal without focal findings, mental status, speech normal, alert and oriented x iii, BRITANY, reflexes normal and symmetric. Psychiatric Coherent speech. Appropriate mood/affect. Laboratory: LAB RESULTS: Clinical Three Knife Trimmer on 10/10/2019 Component Date Value WHITE CELL COUNT 10/10/2019 4.61 RED CELL COUNT 10/10/2019 4.23 HEMOGLOBIN 10/10/2019 11.8* HEMATOCRIT 10/10/2019 37.3 MCV 10/10/2019 88.2 MCHC 10/10/2019 31.6* RDW SD 10/10/2019 54.2* PLATELET COUNT 10/10/2019 228 MPV 10/10/2019 8.4* NRBC% 10/10/2019 0.0 NRBC# 10/10/2019 0.00 NEUTROPHIL % 10/10/2019 61.5 LYMPHOCYTE % 10/10/2019 20.2 MONOCYTE % 10/10/2019 9.8* EOS % 10/10/2019 5.9* BASO % 10/10/2019 2.4* IG% 10/10/2019 0.2 NEUTROPHIL # 10/10/2019 2.84 NEUTROPHIL # Prelim 10/10/2019 2.84 LYMPHOCYTE # 10/10/2019 0.93* MONOCYTE # 10/10/2019 0.45 EOS # 10/10/2019 0.27 BASO # 10/10/2019 0.11* IG# 10/10/2019 0.01 GLUCOSE, PLASMA (LAB) 10/10/2019 93 BUN, PLASMA (LAB) 10/10/2019 36* CREATININE PLASMA (LAB) 10/10/2019 1.37* EGFR - IRANIAN 10/10/2019 48* EGFR NON -IRANIAN 10/10/2019 40* SODIUM, PLASMA (LAB) 10/10/2019 132* POTASSIUM, PLASMA (LAB) 10/10/2019 5.0 CHLORIDE, PLASMA (LAB) 10/10/2019 102 TOTAL CO2, PLASMA (LAB) 10/10/2019 21 CALCIUM, PLASMA (LAB) 10/10/2019 8.3* CALCIUM(ALB CORRECTED) 10/10/2019 9.7 BILIRUBIN TOTAL 10/10/2019 0.6 TOTAL PROTEIN, PLASMA (L* 10/10/2019 5.8* ALBUMIN, PLASMA (LAB) 10/10/2019 2.2* ALK PHOS 10/10/2019 120* AST(SGOT) 10/10/2019 57* ALT (SGPT) 10/10/2019 22 ANION GAP 10/10/2019 9 ANION GAP(ALB CORRECTED) 10/10/2019 13* POTASSIUM CMNT 10/10/2019 No Hemo BILI T CMNT 10/10/2019 No Hemo AST CMNT 10/10/2019 No Hemo BUN/CREATININE RATIO 10/10/2019 26* GLOBULIN LVL 10/10/2019 3.6* ALBUMIN/GLOBULIN RATIO 10/10/2019 0.6* Lissette Jones MD documented in this e ncounter Plan of Treatment Not on filedocumented as of this encounter Procedures + +--------+ + + + | Procedure Name | Priori | Date/Time | Associated Diagnosis | Comments | | | ty | | | | + +--------+ + + + | ADMINISTER | Routin | 10/10/2019 | | | | CHEMOTHERAPY PER | e | 10:59 AM | | | | TREATMENT PARAMETERS | | PST | | | + +--------+ + + + documented in this encounter Visit Diagnoses + + | Diagnosis | + + | Renal cell carcinoma, unspecified laterality (HCC) - Primary | + + documented in this encounter"
--- OUTSIDE RECORDS SUMMARY | ~2020-06-29 | XMS | Encounter Summary ---
Demographics + + + | Address | [address] | | | [place] [address] | + + + | Home Phone [...] Author + + + | Author | [facility] | + + + | Organization | [facility] | + + + | Address | Unknown | + + + | Phone | Unavailable | + + + Support + + +---------+ + | Name | Relationship | Address | Phone | + + +---------+ + | William Talavera | ECON | Unknown | | + + +---------+ + Care Team Providers + +------+ + | Care Case Reviewer Name | Role | Phone | + +------+ + | Lissette Martinez PA-C | PCP | | + +------+ + Encounter Details +--------+ + + + + | Date | Type | Department | Care Team | Description | +--------+ + + + + | 02/22/ | Procedure | Diagnostic Imaging | | | | 2019 | Pass | Services at [facility] | | | | | | [address] | | | | | | [address] | | | | | | [facility] | | | | | | [place], [place] | | | | | | [address] | | | | | | [phone] | | | +--------+ + + + [...]
--- OUTSIDE RECORDS SUMMARY | ~2020-06-29 | XMS | Encounter Summary ---
Demographics + + + | Address | [address] | | | [place] [address] | + + + | Home Phone [...] Author + + + | Author | [facility] | + + + | Organization | [facility] | + + + | Address | Unknown | + + + | Phone | Unavailable | + + + Support + + +---------+ + | Name | Relationship | Address | Phone | + + +---------+ + | William Talavera | ECON | Unknown | | + + +---------+ + Care Team Providers + +------+ + | Care Surveyor Geophysical Prospecting Name | Role | Phone | + [...] | neoplasm of | RADHA Curran | [address] | | | | | unspecified | [place] | [address] | | | | | kidney, | Family | [place], | | | | | except renal | Medicine | [place] [address] | | | | | pelvis | [address] | Phone: | | | | | Procedures | [address] | [phone] | | | | | [place] NEW | [place], | Fax: | | | | | PATIENT | [place] [address] | [phone] | | | | | [place] | Phone: | | | | | | EST PATIENT | [phone] | | | | | | LEVEL [place] | Fax: | | | | | | | [phone] | | + +---------+ + + + + Encounter Details +--------+ + + + + | Date | Type | Department | Care Team | Description | +--------+ + + + + | 06/18/ | Video/TeleH | [facility] | Melania Garcia, | Left without seen | | 2020 | ealth-Sched | Clinics at S | PA-C [address] | | | | uled | [facility] [address] | | | | | [facility] | [place], [place] | | | | | Health and Healing, | [address] | | | | | [address] | [phone] | | | | | [facility] [place] | | | | | | [address] | | | | | | [phone] | | | +--------+ + + + [...]
--- OUTSIDE RECORDS SUMMARY | ~2020-06-29 | XMS | Encounter Summary ---
Demographics + + + | Address | [address] | | | [place] [address] | + + + | Home Phone | | + + + | Preferred Language | Unknown | + + + | Marital Status | Single | + + + | Nondenominational Affiliation | CHR | + + + | Race | White | + + + | Ethnic Group | Not or | + + + Author + + + | Author | [facility] | + + + | Organization | [facility] | + + + | Address | Unknown | + + + | Phone | Unavailable | + + + Support + + +---------+ + | Name | Relationship | Address | Phone | + + +---------+ + | William Talavera | ECON | Unknown | | + + +---------+ + Care Team Providers + +------+ + | Care Nickel Plater Name | Role | Phone | + +------+ + | Lissette Martinez PA-C | PCP | | + +------+ + Reason for Visit Consultation (Urgent) +--------+--------+ + + + + | [...] | | | | | carcinoma, | [address] | [address] | | | | | unspecified | [address] | [address] | | | | | laterality | [address] | [address] [place], | | | | | ([facility]) | [place], [place] | [place] | | | | | Procedures | [address] | [address] | | | | | CONSULT TO | Phone: | Phone: | | | | | RADIATION | [phone] | [phone] | | | | | ONCOLOGY | Fax: | Fax: | | | | | Consult and | [phone] | [phone] | | | | | OVs | | | +--------+--------+ + + + + Encounter Details +--------+ + + + + | Date | Type | Department | Care Team | Description | +--------+ + + + + | 02/23/ | Video/TeleH | Radiation Oncology | Antwon Beard, | | | 2020 | ealth-Sched | at [address] | [address] [facility] | | | | zb[address] | [address] | [facility] | | | | | [place], 4th floor | [place], [place] | | | | | [place], [place] | [address] | | | | | [address] | [phone] | | | | | [phone] | | | +--------+ + + + [...] encounter Progress Notes Antwon Beard MD - 02/24/2020 9:00 AM PDTFormatting of this note might be different fro m the original. RADIATION ONCOLOGY CONSULTATION Requesting Provider: Kwabena Sanchez MD Treating Provider(s): Kwabena Sanchez MD Jacqueline E Herman, PA-C Jacqueline Vuky, MD Seunggu Han, MD, PhD Identification/Chief Complaint: .metastatic renal clear cell carcinoma now with a single br ain metastasis History of Present Illness: Tila Altman is a 54 year old female with PMHx significant for classic Hodgkin's Disease (2001; prior CHOP and consolidative chest RT). In August of 2019 she was diagnosed with S tage IV renal cell carcinoma, clear cell type, with findings of a 3.8 cm left renal mass (in vaion of renal vein), a lytic L2 vertebral lesion (with fracture and 50% height loss) and mu ltiple hepatic metastases. She now resents with a newly diagnosed single LEFT frontal brain metastasis. Onc Hx (in brief): 07/27/2019 CT AP scan with findings of a LT sided renal mass invading the renal vein with associated large retroperitoneal lymph nodes and liver nodules. 08/16/2020 Ultrasound-guided liver biopsy was notable for metastatic renal cell carcinoma, clear cell type (poitive for Pax8 and CA-9). 08/23/2019 Bone scan with findings of a lytic lesion in the left/anterior aspect of L2 and an adjacent hot lesion on the right side of L2 vertebral body. 08/23/2019 CT CAP with findings of the 3.5 x 1.8 cm LEFT kidney mass, left renal invasion, confluent hepatic metastases, 3.6 x 2.4 cm PA node, and a lytic lesion in the L2 vertebral body with associated pathological compression fracture with 50% height loss. 08/27/[address] head without evidence of intracranial abnormality. 08/29/2019 Kyphoplasty for her L2 metastasis 08/30/2019 MRI brain without intracranial abnormality. Dr. Jones has managed her since that time. She was treated for her hypercalcemia, and initia juice on Ipilimumab/Nivolumab since 09/19/2019. She has completed 3 cycles to date, with her co urse complicated by hypothyroidism (started on synthroid 150 mcg po qD) She presented to [facility] ED on 02/22/2020 with findings of left facial weakness and se izure. She was found on contrasted CT to have the following new LEFT frontal brain metastasi s. Today Speech is still slurred. Steroids: Dex 4mg po BID Sister: James (on video visit today) MRI: scheduled for 02/26 Prior RT on back: Gabbs's (Dianna: 10 treatments) -- Improved back symptoms, still feels soreness - but no pain Referred for evaluation for possible radiotherapy to her LEFT frontal metastasis. -- Evaluation planned later today in concert with Dr. Bustos. Pertinent Positives in ROS: right facial and leg weakness, slurred speech, back pain Prior radiation: chest RT (2001), Palliative RT (Gabbs to L2 vertebral body) Pacemaker: N/A The patient is being seen today in consultation for consideration of radiotherapy options. Past Medical History: Patient Active Problem List Diagnosis Date Noted Adverse drug reaction 11/24/2019 Overview Note: Checkpoint inhibitors Hyperthyroidism 11/22/2019 Hypotension, unspecified hypotension type 11/21/2019 Closed compression fracture of body of L1 vertebra (HCC) 11/21/2019 Hypothyroidism, unspecified type 11/21/2019 Renal cell carcinoma, unspecified laterality ([facility]) 11/21/2019 Hypotension 08/31/2019 Proteinuria 08/30/2019 Hematuria 08/30/2019 JONO (acute kidney injury) (HCC) 08/30/2019 Elevated blood uric acid level 08/30/2019 Normocytic anemia 08/30/2019 Leukopenia 08/30/2019 Closed compression fracture of L2 lumbar vertebra, initial encounter ([facility]) 08/25/2019 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) 08/25/2019 Hyperkalemia 08/24/2019 Hypothyroidism 08/24/2019 Compression fracture of L2 vertebra (HCC) 08/24/2019 Renal cell adenocarcinoma (HCC) 08/23/2019 Hypercalcemia of malignancy 08/23/2019 Past Medical History: Diagnosis Date Hodgkin's disease (HCC) 2001 CHOPP and radiation therapy Hypercalcemia of malignancy Hypertension Hypothyroidism Hypothyroidism Pathologic compression fracture of lumbar vertebra, initial encounter ([facility]) Renal cell carcinoma (HCC) clear cell carcinoma of left kidney, 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, lungs, invasion of left pulm onary artery, L2 metastatic spread Past Surgical History Procedure Laterality Date C section 19882000 Knee surgery Left 1981 Mediport insertion placed in left chest site in 2001 w/ removal in 2002 Medications Current Outpatient Medications Medication Sig cholecalciferol 50,000 unit oral capsule Take 1 capsule by mouth every seven days. Simi cations: vitamin D deficiency (high dose therapy) dexAMETHasone 4 mg oral tablet Take 4 [...] No current facility-administered medications for this visit. 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: [email or web address] Social Needs Financial resource strain: Not on [...] file Gets together: Not on file Attends denominational service: Not on file Active member of club or organization: Not on file Attends meetings of clubs or organizations: Not on file Relationship status: Not on file Other Topics Concern Not on file Social History Narrative Lives in [place], 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 They filled the Department's 11 orga n system Review of Systems questionnaire on paper. The ROS was all negative except as repor juice above in the HPI. Physical Exam: General: WDWN female in NAD RIGHT facial weakness (most pronounces in mid and lower face, slurred speech Pain Score: 2/10 (back) Chest: Normal respiratory effort. LABORATORY: Lab Results Component Value Date NA 140 02/13/2020 K 3.9 02/13/2020 CL 106 02/13/2020 BICARB 24 02/13/2020 BUN 17 02/13/2020 EGFRAFRICAN >60 02/13/2020 EGFRNONAFR 52 02/13/2020 CR 1.09 02/13/2020 GLU 92 02/13/2020 CA 8.4 02/13/2020 ANIONGAP 10 02/13/2020 ANIONALBCOR 12 02/13/2020 Lab Results Component Value Date WBC 2.12 02/13/2020 HB 9.7 02/13/2020 HCT 32.0 02/13/2020 PLT 145 02/13/2020 MCV 100.0 02/13/2020 RDW 57.8 02/13/2020 IMAGING: as above in HPI PATHOLOGY: As above in HPI KARNOFSKY PERFORMANCE SCORE: 70% Unable to do active work, cares for self I saw this patient for 35 minutes in consultation with >50% spent in patient counseling or coordination of care. ASSESSMENT: 54 year old female with PMHx significant for classic Hodgkin's Disease (2001; p rior CHOP and consolidative chest RT). In August of 2019 she was diagnosed with Stage IV r enal cell carcinoma, clear cell type, with findings of a 3.8 cm left renal mass (invaion of renal vein), a lytic L2 vertebral lesion (with fracture and 50% height loss) and multiple he patic metastases. She now resents with a newly diagnosed single LEFT frontal brain metastasi s. RECOMMENDATIONS: New LEFT Frontal Met: Evaluation by NSGY After the visit, Dr. Bustos and I reviewed her images and discussed her treatment options. Nivia mireles will formally evaluate her on Thursday. MRI brain planned for 02/27/2020 Tentatively, if not resection candidate, will plan for SBRT: 27 Gy in 3 fractions. She poe s family nearby ([place]) and will remain on steroids while we plan Tx. CT simulation with mask immobilization Planned for tomorrow following MRI. Visit with Dr. Bustos to follow. Recommendations TBD. Tentatively Dr. Bustos and I are leaning towards SBRT, but we will finali ze plans on Thursday. The patient is aware. . The risks and benefits of radiation therapy were discussed in detail with the patient. The patient expressed an understanding of these risks and has agreed to proceed with the propose d treatment. Informed consent will be obtained. Simulation will be scheduled: 02/26 at 9am. The visit took place via secure, synchronous audio and video technology with the provider sharri pelayo located at the distant site of [facility]. The patient stated they were located at the [facility] site of [place] and were in the state [facility] at the time of the virtual visit. T he names of all additional persons participating in the virtual visit and their roles are: N /A. I have spent a total of 35 minutes on this patient's care today. This time includes the vi rtual visit [id number] time with the patient as well as time spent reviewing patient recor ds, coordinating/communicating with care teams and documenting the patient visit. Antwon Beard MD, PhD [facility] Radiation Medicine CC: A copy of this note has been sent to the referring provider, Dr. Sanchez. Linn Brady RN - 02/24/2020 9:00 AM PDTNursing Note: Spoke with Tila Altman for telephonic rooming. Patient verified her name, , and allergies. I updated her medication list and added rudy ent-reported VS. Tila will call back if she has any questions or difficulty preparing for VV. documented in this e ncounter Plan of Treatment Not on filedocumented as of this encounter Visit Diagnoses + + | Diagnosis | + + | Brain metastases (HCC) - Primary Secondary malignant neoplasm of brain and spinal | | cord | + + documented in this encounter"
--- OUTSIDE RECORDS SUMMARY | ~2020-06-29 | XMS | Encounter Summary ---
Demographics + + + | Address | [address] | | | [place] [address] | + + + | Home Phone | | + + + | Preferred Language | Unknown | + + + | Marital Status | Single | + + + | Religion Affiliation | CHR | + + + | Race | White | + + + | Ethnic Group | Not or | + + + Author + + + | Author | [facility] | + + + | Organization | [facility] | + + + | Address | Unknown | + + + | Phone | Unavailable | + + + Support + + +---------+ + | Name | Relationship | Address | Phone | + + +---------+ + | William Talavera | ECON | Unknown | | + + +---------+ + Care Team Providers + +------+ + | Care Steamblaster Name | Role | Phone | + +------+ + | Lissette Martinez PA-C | PCP | | + +------+ + Reason for Visit + +--------+ + | Reason | Onset | Comments | | | Date | | + +--------+ + | Refill Request | 02/27/ | | | | 2020 | | + +--------+ + Encounter Details +--------+--------+ + + + | Date | Type | Department | Care Team | Description | +--------+--------+ + + + | 02/27/ | Refill | [facility] | Lissette Garza, | Refill Request | | 2020 | | Clinics at S | [place] [address] | | | | | [place] [address] | | | | | [facility] for | [place], [place] | | | | | Health and Healing, | [address] | | | | | [address] | [phone] | | | | | [place], [place] | | | | | | [address] | | | | | | [phone] | | | +--------+--------+ + + + [...] Telephone Encounter - Ariana Garcia MA - 02/28/2020 4:10 PM PDTFormatting of this not e might be different from the original. Last appointment with Hipolito Garza MD was on 02/13/20. Next appointment with Hipolito garza MD is scheduled on 03/12/20. Last [facility] progress note reviewed. Is there documentation to indicate that medication being r equested has been changed or discontinued? No Allergy list reviewed--Is the medication being requested on the patient's current allergy l ist? No Previous Prescription Details copied below: Date and Time Department Ordering Authorizing 02/28/2020 4:16 PM [facility] Ariana Garcia MA Unknown Outpatient Medication Detail Disp Refills scopolamine 1 mg over 3 days transdermal patch 3 day Class: Historical Med Order: [id number] Per [facility] policy, routing encounter to [facility] for review and approval. elephone Encounter - Anai Jimenez - 02/28/2020 11:48 AM PDTRx Refill: Routing encounter to [place] thanh for proce ssing.. Pharmacy Name: [facility] Phone #: [phone] -->MA : Please review prescription refill request. Thank you. documented in this encount er Plan of Treatment Not on filedocumented as of this encounter Visit Diagnoses Not on filedocumented in this encounter"
--- OUTSIDE RECORDS SUMMARY | ~2020-06-29 | XMS | Encounter Summary ---
Demographics + + + | Address | [address] | | | [place] [address] | + + + | Home Phone | | + + + | Preferred Language | Unknown | + + + | Marital Status | Single | + + + | Evangelical Affiliation | CHR | + + + [...] Team Providers + +------+ + | Care Inspector Coated Fabrics Name | Role | Phone | + +------+ + | Lissette Martinez PA-C | PCP | | + +------+ + Reason for Visit + +--------+ + | Reason | Onset | Comments | | | Date | | + +--------+ + | Care Coordination | 11/02/ | | | | 2020 | | + +--------+ + Encounter Details +--------+ + + + + | Date | Type | Department | Care Team | Description | +--------+ + + + + | 11/02/ | Telephone | [facility] | Lissette Jones, | Care Coordination | | 2019 | | Clinics at S | [place] [address] | | | | | [place] [address] | | | | | [facility] for | [place], [place] | | | | | Health and Healing, | [address] | | | | | [facility] [address] | [phone] | | | | | [place], [place] | | | | | | [address] | | | | | | [phone] | | | +--------+ + + + [...] Encounter - Giovanna Tomas RN - 11/07/2019 11:22 AM PSTCall to Heather to inquire ab out authorization process. Heather states no authorization required from [facility], pt is okay to schedule. They will reach out to Tila today to get consult set up. elephone Encounter - Opal Guanako - 0 10:45 AM PSTTeam Coordinator Documentation: Subject: Note TC: Called and spoke with Heather. She reported that she received the referral, but they ar e needing auth phillip. Informed Heather that this office would not be responsible for getting auth. Heather stated that their office does not do auth for incoming referrals and requested this office to complete it. Called [facility] and spoke with Omkar to clarify this process. Per Tiago bryan, [facility] would not be responsible for requesting auth in this case. She noted that [facility] is responsible to obtaining auth for inbound referrals received to ensure that services rendere d will be covered by the health plan. Called Heather back and relayed this info. Heather sta juice that she would notify the pt. She had no further questions. -->Note to RNC: HOMA elephone Encounter - Irene Santiago - 11/07/2019 8:46 AM PSTGeneral Message: What is your request today?: Heather called, they received the referral. Heather was robert mcintyre to see if we are working on authorization for the patient or if they need to do this. They would like this expedited. Is it ok to leave a confidential voicemail?: Heather approves confidential and detailed mes sages left on answering machine and voicemail. Routed to TC elephone Encounter - Guanako Romo - 11/04/2019 1:35 PM PSTTeam Coordinator Documentation: Subject: Note TC: Referral received and faxed off to [facility] -->Note to RNC: HOMA elephone Encounter - Guanako James - 11/03/2019 9:49 AM PSTTeam Coordinator Documentation: Subject: Note TC: Per review of the chart there is no referral in place. Routing to RNC/CJaysonCJayson to enter re ferral as appropriate. -->Note to JESSICA: HOMA elephone Encounter - Irene Santiago - 11/02/2019 2:28 PM PSTGeneral Message: What is your request today?: pt called, she said when she was in yesterday Dr. Jones said sh e will send the Radiation Referral to [facility] in [place]. Pt called [facility] today and they still have not received the referral. Please fax referr al and insurance authoriation to: [phone]. [facility] phone number: [phone]. Please call pt to let her know when it has been sent so pt can call them to schedule Is it ok to leave a confidential voicemail?: Patient approves confidential and detailed mes sages left on answering machine and voicemail. Routed to TC and RNC documented in this encounte r Plan of Treatment Not on filedocumented as of this encounter Visit Diagnoses Not on filedocumented in this encounter"
--- OUTSIDE RECORDS SUMMARY | ~2020-06-29 | XMS | Encounter Summary ---
Demographics + + + | Address | [address] | | | [place] [address] | + + + | Home Phone | | + + + | Preferred Language | Unknown | + + + | Marital Status | | + + + | Scientology Affiliation | 1013 | + + + | Race | or Other | + + + | Ethnic Group | Not or | + + + Author + + + | Author | [facility] | | | and Shahram | + + + | Organization | [facility] | | | and [...] Team Providers + +------+ + | Care Laboratory Immunologist Name | Role | Phone | + [...] [address] | | | | | [address] | [place] [address] | | | | | [place] [address] | | | | | | [phone] | | | +--------+ + + + [...] | + +--------+ + + + | VAS LOWER EXTREMITY | Routin | 08/28/2019 | | Results for this | | VENOUS BILATERAL | e | 12:00 AM | | procedure are in the | | | | PST | | results section. | + +--------+ + + + documented in this encounter Results VAS Lower Extremity Venous Bilateral (08/28/2019 12:00 AM PST) + + | Specimen | [...]
--- OUTSIDE RECORDS SUMMARY | ~2020-06-29 | XMS | Encounter Summary ---
Demographics + + + | Address | [address] | | | [place] [address] | + + + | Home Phone | | + + + | Preferred Language | Unknown | + + + | Marital Status | | + + + | Confucianist Affiliation | 1013 | + + + | Race | or Other | + + + | Ethnic Group | Not or | + + + Author + + + | Author | [facility] | | | and Shahram | + + + | Organization | [facility] | | | and Marcana [...] Team Providers + +------+ + | Care Scalp Treatment Specialist Name | Role | Phone | + +------+ + | Lissette Martinez | PCP | | | RADHA | | | + +------+ + Reason for Visit +--------+--------+ + | Reason | Onset | Comments | | | Date | | +--------+--------+ + | Other | 11/20/ | | | | 2020 | | +--------+--------+ + Encounter Details +--------+ + + + + | Date | Type | Department | Care Team | Description | +--------+ + + + + | 11/20/ | Telephone | [facility] | Erlinda Baptiste RN | Other | | 2019 | | [facility] | | | | | | [facility] [address] | | | | | | [address] | | | | | | [place] [address] | | | | | | [phone] | | | +--------+ + + + [...] this encounter Miscellaneous Notes Telephone Encounter - Erlinda Baptiste RN - 11/21/2019 9:26 AM PDTAlicia was screened for h ereditary cancers and base on the information she provided there are no red flags to indicat e further genetic testing at this time.Electronically signed by Erlinda Baptiste RN at 020 9:26 AM PDTdocumented in this encounter Plan of Treatment Not on filedocumented as of this encounter Visit Diagnoses Not on filedocumented in this encounter"
--- OUTSIDE RECORDS SUMMARY | ~2020-06-29 | XMS | Encounter Summary ---
Demographics + + + | Address | [address] | | | [place] [address] | + + + | Home Phone [...] Team Providers + +------+ + | Care Cardiac Cath Lab Manager Name | Role | Phone | + +------+ + | Lissette Martinez PA-C | PCP | | + +------+ + Encounter Details +--------+ + + + + | Date | Type | Department | Care Team | Description | +--------+ + + + + | 03/29/ | MyChart | [facility] | Senthil Landry | Cabozantinib Handout | | 2020 | Encounter | Clinics at S | [address] | | | | | [place] | [facility] | | | | | [facility] for | [address] [place], [place] | | | | | Health and Healing, | [address] | | | | | [address] | | | | | | [facility] [place] | | | | | | [address] | | | | | | [phone] | | | +--------+ + + + [...]
--- OUTSIDE RECORDS SUMMARY | ~2020-06-29 | XMS | Encounter Summary ---
Demographics + + + | Address | [address] | | | [place] [address] | + + + | Home Phone | | + + + | Preferred Language | Unknown | + + + | Marital Status | Single | + + + | Restoration Affiliation | CHR | + + + [...] Team Providers + +------+ + | Care Apple Packing Header Name | Role | Phone | + +------+ + | Lissette Martinez PA-C PCP | | + +------+ + Encounter Details +--------+--------+ + + + | Date | Type | Department | Care Team | Description | +--------+--------+ + + + | 10/31/ | Travel | | | | | [...]
--- OUTSIDE RECORDS SUMMARY | ~2020-06-29 | XMS | Encounter Summary ---
Demographics + + + | Address | [address] | | | [place] [address] | + + + | Home Phone | | + + + | Preferred Language | Unknown | + + + | Marital Status | | + + + | Sikhism Affiliation | 1013 | + + + | Race | or Other | + + + | Ethnic Group | Not or | + + + Author + + + | Author | [facility] | | | and Shahram | + + + | Organization | [facility] | | | and [...] Team Providers + +------+ + | Care Lead Ingot Molder Name | Role | Phone | + +------+ + PCP | Unavailable | + +------+ + Encounter Details +--------+ + + + + | Date | Type | Department | Care Team | Description | +--------+ + + + + | 05/01/ | Hospital | [facility] | | | | 2004 - | Encounter | MED CTR GENERIC OP | | | | | | CONV DEPT [address] | | | | 07/30/ | | [place], | | | | 2004 | | [place] [address] | | | | | | [phone] | | | +--------+ + + + [...]
--- OUTSIDE RECORDS SUMMARY | ~2020-06-29 | XMS | Encounter Summary ---
Demographics + + + | Address | [address] | | | [place] [address] | + + + | Home Phone | | + + + | Preferred Language | Unknown | + + + | Marital Status | Single | + + + | Hindu Affiliation | CHR | + + + [...] Team Providers + +------+ + | Care Metropolitan Editor Name | Role | Phone | + [...] | Medical Diagnosis | | | | [address] | [facility] | | | | | Ishan, 4th floor | [place], [place] | | | | | [place], [place] | [address] | | | | | [address] | [phone] | | | | | [phone] | | | +--------+ + + + [...] while she was on the phone w ith me and said it would be sufficient information for her submission to [facility]. I told her if they should need anything else to please call us and we would be happy to pro vide more documentation for her. documented in this encounter Plan of Treatment Not on filedocumented as of this encounter Visit Diagnoses Not on filedocumented in this encounter"
--- OUTSIDE RECORDS SUMMARY | ~2020-06-29 | XMS | Encounter Summary ---
Demographics + + + | Address | [address] | | | [place] [address] | + + + | Home Phone [...] Team Providers + +------+ + | Care Game Programer Name | Role | Phone | + +------+ + | Lissette Martinez PA-C | PCP | | + +------+ + Reason for Visit + +--------+ + | Reason | Onset | Comments | | | Date | | + +--------+ + | Disability Paperwork | 02/28/ | work leave letter | | | 2020 | | + +--------+ + Encounter Details +--------+ + + + + | Date | Type | Department | Care Team | Description | +--------+ + + + + | 02/28/ | Documentati | Radiation Oncology | Antwon Beard, | Disability Paperwork | | 2020 | on | at [facility] [address] | [place] [address] | (work leave letter) | | | | [address] | [facility] | | | | | Ishan, 4th floor | [place], [place] | | | | | [place], [place] | [address] | | | | | [address] | [phone] | | | | | [phone] | | | +--------+ + + + [...] Telephone Encounter - Hemanth Cardenas RN - 02/29/2020 1:25 PM PDTRevised work leave jana goddard from 02/29/2020 has been signed and faxed to at [facility]. . Received confirmation that fax went through. Will leave copy at RN desk and front desk supervisor in an envelope for patient to picking belt operator on first day of radiation treatment, 03/06/2020. Sander painting signed by Hemanth Cardenas RN at 02/29/2020 1:57 PM PDTdocumented in this encounter Plan of Treatment Not on filedocumented as of this encounter Visit Diagnoses Not on filedocumented in this encounter"
--- OUTSIDE RECORDS SUMMARY | ~2020-06-29 | XMS | Encounter Summary ---
Demographics + + + | Address | [address] | | | [place] [address] | + + + | Home Phone [...] Team Providers + +------+ + | Care Maternal Child Nurse Name | Role | Phone | + +------+ + | Lissette Martinez PA-C PCP | | + +------+ + Encounter Details +--------+--------+ + + + | Date | Type | Department | Care Team | Description | +--------+--------+ + + + | 03/16/ | Travel | | | | | [...]
--- OUTSIDE RECORDS SUMMARY | ~2020-06-29 | XMS | Encounter Summary ---
Demographics + + + | Address | [address] | | | [place] [address] | + + + | Home Phone [...] Team Providers + +------+ + | Care Signal Operator Technical Name | Role | Phone | + [...] | | | | | carcinoma, | [address] | [address] | | | | | unspecified | [address] | [facility] | | | | | laterality | [address] | [address] [place], | | | | | ([facility]) | [place] | [place] | | | | | Procedures | [address] | [address] | | | | | SIMULATION | Phone: | Phone: | | | | | IMAGING | [phone] | [phone] | | | | | SBRT | Fax: | Fax: | | | | | | [phone] | [phone] | +--------+--------+ + + + + Reason [...] | | | | | carcinoma, | [address] | [address] [facility] | | | | | unspecified | [address] | [facility] | | | | | laterality | [address] | [address] [place], | | | | | ([facility]) | [place] | [place] | | | | | Procedures | [address] | [address] | | | | | SIMULATION | Phone: | Phone: | | | | | IMAGING | [phone] | [phone] | | | | | SBRT | Fax: | Fax: | | | | | | [phone] | [phone] | +--------+--------+ + + + + Encounter Details +--------+ + + + + | Date | Type | Department | Care Team | Description | +--------+ + + + + | 02/26/ | Hospital | Radiation Oncology | | | | 2020 | Encounter | at [facility] [address] | | | | | | [address] [place] | | | | | | [address] | | | | | | [place], [place] | | | | | | [address] | | | | | | [phone] | | | +--------+ + + + [...]
--- OUTSIDE RECORDS SUMMARY | ~2020-06-29 | XMS | Encounter Summary ---
Demographics + + + | Address | [address] | | | [place] [address] | + + + | Home Phone [...] Team Providers + +------+ + | Care Geotechnical Field Technician Name | Role | Phone | [...] Hem | | | | Oncology | | Lissette, | Treatment | | | | | [place]calce[place] | [place] [address] | [address] | | | | | a of | [place] [address] | | | | | malignancy | Ct | Center for | | | | | Renal cell | [facility], | [facility] and | | | | | adenocarcino | [place] | Healing, | | | | | ma (HCC) | [address] | [address] | | | | | Procedures | Phone: | [place], [place] | | | | | [place] | [phone] | [address] | | | | | PAMIDRONATE | Fax: | Phone: | | | | | DISODIUM, | [phone] | [phone] | | | | | PER 30 MG | | Fax: | | | | | [place] | | [phone] | | | | | THR/PRPH/DX | | | | | | | INJ,SC/IM | | | | | | | Pamidronate | | | | | | | every 4 | | | | | | | weeks x 12 | | | | | | | cycles | | | +--------+---------+ + + + + Encounter Details +--------+ + + + + | Date | Type | Department | Care Team | Description | +--------+ + + + + | 12/11/ | Hospital | [facility] | [address] | | | 2020 | Encounter | Clinics at S | Ave [place], [place] | | | | | [address] | [address] | | | | | [facility] | | | | | [facility] and He[facility], | | | | | | [address] | | | | | | [place], [place] | | | | | | [address] | | | | | | [phone] | | | +--------+ + + + [...] this encounter Last Filed Vital Signs + +---------+ + + | Vital Sign | Reading | Time Taken | Comments | + +---------+ + + | Blood Pressure | 112/56 | 12/12/2019 9:45 AM | | | | | PDT | | + +---------+ + + | Pulse | 100 | 12/12/2019 9:45 AM | | | | | PDT | | + +---------+ + + | Temperature | - | - | | + +---------+ + + | Respiratory Rate | - | - | | + +---------+ + + | Oxygen Saturation | 100% | 12/12/2019 9:45 AM | | | | | PDT | | + +---------+ + + | Inhaled Oxygen | - | - | | | Concentration | | | | + +---------+ + + | Weight | - | - | | + +---------+ + + | Height | - | - | | + +---------+ + + | Body Mass Index | - | - | | + +---------+ + + documented in this encounter Functional [...] documented as of this encounter Progress Notes Bebe Islas RN - 12/12/2019 10:20 AM PDTFormatting of this note might be different from t silva original. Nurse Note Name: Tila Altman Date: 12/12/2019 Physician: Karen Allergies: Tila has No Known Allergies. 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 Lab Results Component Value Date WBC 5.71 11/26/2019 HB 8.5 (L) 11/26/2019 HCT 27.0 (L) 11/26/2019 PLT 134 (L) 11/26/2019 BUN 36 (H) 11/29/2019 CR 1.38 (H) 11/29/2019 PIV placed by IVT. Positive blood return on IV line prior and after infusion. Medication in fused with 250ml NS sidearm bag. Pt tolerated without incident. PIV d/c'd and intact. P t Alert & Oriented x3, No acute distress, Mood & affect appropriate and Recent & remote tone ry intact and discharged via wheel chair. Refer to MAR and Onc Lines and Transfusions doc flowsheet for treatment details. documented in this encou nter Plan of [...] +-------+------+------+ | diphenhydrAMINE (BENADRYL) | Given | 12/12/19 | 25 mg | | | | injection 25 mg 25 mg, | | 20 10:52 | | | | | intravenous, ONCE, 1 dose, Mon | | AM PDT | | | | | 12/12/19 at 1030 | | | | | | + +--------+ +-------+------+------+ +---+---+ | | | +---+---+ + +-------+ +-------+---+---+ | famotidine (PEPCID) injection | Given | 12/12/19 | 20 mg | | | | 20 mg 20 mg, intravenous, ONCE, | | 20 10:52 | | | | | 1 dose, 12/12/19 at 1030 | | AM PDT | | | | + +-------+ +-------+---+---+ +---+---+ | | | +---+---+ + +---------+ +--------+-------+---+ | nivolumab (OPDIVO) 480 mg in | New Bag | 12/12/19 | 480 mg | 128 | | | sodium chloride (NS) 0.9 % IV | | 20 11:29 | | mL/hr | | | 480 mg, intravenous, Administer | | AM PDT | | | | | over 60 Minutes, ONCE, 1 dose, | | | | | | | 12/12/19 at 1030, Administer | | | | | | | through a low protein binding | | | | | | | 0.22 micron in-line filter., | | | | | | + +---------+ +--------+-------+---+ +---+---+ | | | +---+---+ documented in this encounter"
--- OUTSIDE RECORDS SUMMARY | ~2020-06-29 | XMS | Encounter Summary ---
Demographics + + + | Address | [address] | | | [place] [address] | + + + | Home Phone [...] Team Providers + +------+ + | Care Set Up Mold Technician Name | Role | Phone | + +------+ + | Lissette Martinez PA-C | PCP | | + +------+ + Reason for Visit Other (Routine) +--------+---------+ + + + + | Status | Reason | Specialty | Diagnoses / | Referred By | Referred To | | | | | Procedures | Contact | Contact | +--------+---------+ + + + + | Closed | Other | Hematology & | Diagnoses | Vuky, | Hem Faculty | | | | Oncology | Malignant | Lissette, | [address] | | | | | neoplasm of | [place] [address] | | | | | left kidney, | [facility] | Center for | | | | | except | Ct | Health and | | | | | renal pelvis | [place], | Healing, | | | | | Procedures | [place] | [address] | | | | | Study IRB: | [id number] | [place], [place] | | | | | | Phone: | [address] | | | | | Study Title: | [phone] | Phone: | | | | | | Fax: | [phone] | | | | | PD-INHIBITOR | [phone] | Fax: | | | | | (NIVOLUMAB) | | [phone] | | | | | AND | | | | | | | IPILIMUMAB | | | | | | | FOLLOWED BY | | | | | | | NIVOLUMAB | | | | | | | VS. VEGF TKI | | | | | | | | | | | | | | CABOZANTINIB | | | | | | | WITH | | | | | | | NIVOLUMAB: A | | | | | | | PHASE III | | | | | | | TRIAL IN | | | | | | | METASTATIC | | | | | | | UNTREATED | | | | | | | RENAL CELL | | | | | | | CANCER | | | | | | | [PDIGREE] | | | +--------+---------+ + + + + Encounter Details +--------+------+ + + + | Date | Type | Department | Care Team | Description | +--------+------+ + + + | 11/01/ | Lab | Laboratory at [facility] | | Kidney cancer, | | 2019 | | [address] | | primary, with | | | | Center for [facility] | | metastasis from | | | | and Healing, | | kidney to other | | | | [address] | | site, left ([facility]) | | | | [place], [place] | | | | | | [address] | | | | | | [phone] | | | +--------+------+ + + + [...] +--------+ + + + | [facility] - BASIC | Routin | 11/01/2019 | Kidney cancer, | Results for this | | METABOLIC SET | e | 10:13 AM | primary, with | procedure are in the | | | | PST | metastasis from | results section. | | | | | kidney to other | | | | | | site, left (HCC) | | + +--------+ + + + documented in this encounter Results [facility] - BASIC METABOLIC SET (11/01/2019 10:13 [...] | | | LABORATORY | | | CHINESE | | | SERVICES, | | | [...] MDRD equation recommended by the National | [facility] | | Kidney Disease Education Program. 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
--- OUTSIDE RECORDS SUMMARY | ~2020-06-29 | XMS | Encounter Summary ---
Demographics + + + | Address | [address] | | | [place] [address] | + + + | Home Phone | | + + + | Preferred Language | Unknown | + + + | Marital Status | | + + + | Nondenominational Affiliation | 1013 | + + + | Race | or Other | + + + | Ethnic Group | Not or | + + + Author + + + | Author | [facility] | | | and Shahram | + + + | Organization | [facility] | | | and Marcana | [...] Team Providers + +------+ + | Care Terrazzo Worker Helper Name | Role | Phone | [...] | | IMAGING [address] | [address] | | | | | [address] | [place] [address] | | | | | [place] [address] | | | | | | [phone] | | | +--------+ + + + [...] | + +--------+ + + + | US GUIDED LIVER | Routin | 08/16/2019 | | Results for this | | BIOPSY | e | 12:00 AM | | procedure are in the | | | | PST | | results section. | + +--------+ + + + documented in this encounter Results US Guided Liver Biopsy (08/16/2019 12:00 AM PST) + + | Specimen [...]
--- OUTSIDE RECORDS SUMMARY | ~2020-06-29 | XMS | Encounter Summary ---
Demographics + + + | Address | [address] | | | [place] [address] | + + + | Home Phone [...] + + + | Author | [facility] | + + + | Organization | [facility] | + + + | Address | Unknown | + + + | Phone | Unavailable | + + + Support + + +---------+ + | Name | Relationship | Address | Phone | + + +---------+ + | William Talavera | ECON | Unknown | | + + +---------+ + Care Team Providers + +------+ + | Care Mold Filler Name | Role | Phone | + [...] | | | | cancer, | [place] [address] [address] | | | | | | primary, | [facility] | | | | | | with | Ct | | | | | | metastasis | [place] | | | | | | from kidney | [place] | | | | | | to other | [address] | | | | | | site, left | Phone: | | | | | | ([facility]) | [phone] | | | | | | Procedures | Fax: | | | | | | CONSULT TO | [phone] | | | | | | RADIATION [...] | | Clinics at S | [place] [address] | | | | | [address] | | | | | [address] [facility] for | [place], [place] | | | | | Health and Healing, | [address] | | | | | [address] | [phone] | | | | | [place], [place] | | | | | | [address] | | | | | | [phone] | | | +--------+ + + + [...] orders faxed off off to [facility] in [place], [place]. Will fu later this evening on [...] has no further questions at this time. [facility] to follow up after discharge. 20 [...] Crawley MA - 11/04/2019 4:30 PM PSTCalled [facility] an [facility] [...] Johns MA - 11/04/2019 1:08 PM PSTCalled [facility] [place] (P. [phone]; F. [phone]). Pt has not come in today yet to get labs drawn. Called and spoke with pt to get clarification on when they would be going in to get labs. P t stated she will be going in at 3:00pm today 11/04 to get her labs drawn. Also put in a new order for Radiation Oncology at [facility] Fx: [phone]. Routing to Obey Peña for faxing. elephone [...] she would like lab orders sent to [facility] in [place], [place] (P. [phone]; F. [phone]). -->Note to RNC: HOMA ddendum Note - [...]
--- OUTSIDE RECORDS SUMMARY | ~2020-06-29 | XMS | Encounter Summary ---
Demographics + + + | Address | [address] | | | [place] [address] | + + + | Home Phone [...] Providers + +------+ + | Care Senior Linux Systems Engineer Name | Role | Phone | + +------+ + | Lissette Martinez PA-C | PCP | | + +------+ + Encounter Details +--------+ + + + + | Date | Type | Department | Care Team | Description | +--------+ + + + + | 08/22/ | Irrigation Equipment Remover | [facility] | Lissette Jones, | Kidney cancer, | | 2019 | | Clinics at S | [place] [address] | primary, with | | | | [address] | [address] | metastasis from | | | | [facility] for | [facility] [place] | kidney to other | | | | Health and Healing, | [address] | site, left (HCC) | | | | [address] | [phone] | (Primary Dx) | | | | [place], [place] | | | | | | [address] | | | | | | [phone] | | | +--------+ + + + [...] Miscellaneous Notes Telephone Encounter - Jose Luis Larsen - 08/22/2019 3:46 PM PSTCbc wth documented in this [facility] Plan of Treatment + +------+--------+ + + | Name | Type | Priori | Associated Diagnoses | Order Schedule | | | | ty | | | + +------+--------+ + + | 12 LEAD ECG | ECG | Routin | Kidney cancer, | Ordered: 08/22/2019 | | | | e | primary, with | | | | | | metastasis from | | | | | | kidney to other | | | | | | site, left (HCC) | | + +------+--------+ + + documented as of this encounter Results ADRIANA SANTIAGO ONLY (08/23/2019 12:02 PM PST) + + + + + + | Component | Value | Ref Range | Performed | Pathologist | | | | | At | Signature | + + + + + + | COLOR(UR) | Catrina (A) | Light Yellow, | [facility] | | | | | Yellow, Dark | LABORATORY | | | | | Yellow | SERVICES, | | | | | | CENTER FOR | | | | | | HEALTH + | | | | | | HEALING | | + + + + + + | APPEARANCE | Sl.Cloudy (A) | Clear | [facility] | | [...] + + + + | SPECIFIC | 1.020 | 1.005 - 1.030 | [facility] | | | GRAVITY | | | LABORATORY | | | | | | SERVICES, | | | | | | [facility]ENTER FOR | | | | | | HEALTH + | | | | | | HEALING | | + + + + + + + + | Specimen | + + | Urine | + + + + + | Narrative | Performed At | + + + | Positive bilirubin dipstick results are not confirmed by an | [facility] | | alternate method. Suggest serum total bilirubin and/or liver function | LABORATORY | | panel if clinically indicated. | SERVICES, | | | [facility] | | | HEALTH + | | | HEALING | + + + + + + + + | Performing | Address | City/State/Zipcode | Phone Number | | Organization | | | | + + + + + | [facility] | [address] | [place] [address] | | | [facility] FOR | | | | | HEALTH + HEALING | | | | + + + + + FREE T4 (08/23/2019 12:02 PM PST) + +-------+ + + + | [...] | + + + + + | [facility] | [address] | [place] [address] | | | SERVICES, CORE | [address] | | | + + + + + TSH (08/23/2019 12:02 PM PST) + + + + + + | Component | Value | Ref Range | Performed | Pathologist | | | | | At | Signature | + + + + + + | TSH | 21.90 (H) | 0.50 - 5.07 | [facility] [...] | + + + + + | [facility] | [address] | [place] [address] | | | SERVICES, CORE | [address] | | | + + + + + COMPLETE METABOLIC SET (NA,K,CL,CO2,BUN,CREAT,GLUC,CA,AST,ALT,BILI TOTAL,ALK PHOS,ALB,PROT TOTAL) (08/23/2019 12:02 PM PST) + + + + + + | Component | Value | Ref Range | Performed | Pathologist | | | | | At | Signature | + + + + + + | GLUCOSE, | 99 | 70 - 99 mg/dL | [facility] | | | PLASMA | | | LABORATORY | | | (LAB) | | | SERVICES, | | | | | | [facility] | | | | | | HEALTH + | | | | | | HEALING | | + + + + + + | BUN, PLASMA | 51 (H) | 6 - 20 mg/dL | [facility] | | | (LAB) | | | LABORATORY | | | | | | SERVICES, | | | | | | [facility] FOR | | | | | | HEALTH + | | | | | | HEALING | | + + + + + + | CREATININE | 2.12 (H) | 0.60 - 1.10 | [facility] | | | PLASMA | | mg/dL | LABORATORY | | | (LAB) | | | SERVICES, | | | | | | [facility] | | | | | | HEALTH + | | | | | | HEALING | | + + + + + + | EGFR | 29 (L) | >60 mL/min | [facility] | | | - | | | LABORATORY | | | [place] | | | SERVICES, | | | | | | [facility] | | | | | | HEALTH + | | | | | | HEALING | | + + + + + + | EGFR NON | 24 (L) | >60 mL/min | [...] + + + | TOTAL CO2, | 24 | 21 - 32 mmol/L | [facility] | | | PLASMA | | | LABORATORY | | | (LAB) | | | SERVICES, | | | | | | [facility] FOR | | | | | | HEALTH + | | | | | | HEALING | | + + + + + + | CALCIUM, | 12.9 (H) | 8.6 - 10.2 | [facility] | | | PLASMA | | mg/dL | LABORATORY | | | (LAB) | | | SERVICES, | | | | | | [facility] | | | | | | HEALTH + | | | | | | HEALING | | + + + + + + | CALCIUM(ALB | 13.6 (H) | 8.6 - 10.2 | [facility] [...] + + + + | TOTAL | 6.9 | 6.4 - 8.2 g/dL | [facility] | | | PROTEIN, | | | LABORATORY | | | PLASMA | | | SERVICES, | | | (LAB) | | | [facility] FOR | | | | | | HEALTH + | | | | | | HEALING | | + + + + + + | ALBUMIN, | 3.1 (L) | 3.5 - 4.7 g/dL | [...] + + + + | AST(SGOT) | 42 (H) | <=41 U/L | [facility] | | | | | | LABORATORY | | | | | | SERVICES, | | | | | | [facility] FOR | | | | | | HEALTH + | | | | | | HEALING | | + + + + + + | ALT (SGPT) | 21 | <=60 U/L | [facility] | | [...] + + + + | ANION | 10 | 4 - 11 mmol/L [...] MDRD equation recommended by the National | [facility] | | Kidney Disease Education Program. 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
--- OUTSIDE RECORDS SUMMARY | ~2020-06-29 | XMS | Encounter Summary ---
Demographics + + + | Address | [address] | | | [place] [address] | + + + | Home Phone | | + + + | Preferred Language | Unknown | + + + | Marital Status | Single | + + + | Jainism Affiliation | CHR | + + + [...] Providers + +------+ + | Care Administrative Receptionist Name | Role | Phone | + +------+ + | Lissette Martinez PA-C | PCP | | + +------+ + Encounter Details +--------+ + + + + | Date | Type | Department | Care Team | Description | +--------+ + + + + | 08/30/ | Pharmacy | Outpatient Retail | | | | 2019 | Visit | [facility] | | | | | | [address] | | | | | | [place], [place] | | | | | | [address] | | | | | | [phone] | | | +--------+ + + + [...]
--- OUTSIDE RECORDS SUMMARY | ~2020-06-29 | XMS | Encounter Summary ---
Demographics + + + | Address | [address] | | | [place] [address] | + + + | Home Phone | | + + + | Preferred Language | Unknown | + + + | Marital Status | | + + + | Yarsani Affiliation | 1013 | + + + | Race | or Other | + + + | Ethnic Group | Not or | + + + Author + + + | Author | [facility] | | | and Shahram | + + + | Organization | [facility] | | | and [...] Team Providers + +------+ + | Care Floor Worker Name | Role | Phone | + +------+ + PCP | Unavailable | + +------+ + Encounter Details +--------+ + + + + | Date | Type | Department | Care Team | Description | +--------+ + + + + | 10/26/ | Hospital | [facility] | | | | 2003 - | Encounter | [facility] | | | | | | CENTER [address] | | | | 02/18/ | | [place] | | | | 2003 | | [address] | | | | | | [phone] | | | +--------+ + + + [...]
--- OUTSIDE RECORDS SUMMARY | ~2020-06-29 | XMS | Encounter Summary ---
Demographics + + + | Address | [address] | | | [place] [address] | + + + | Home Phone [...] Team Providers + +------+ + | Care Appeals Rn Name | Role | Phone | + +------+ + | Lissette Martinez PA-C PCP | | + +------+ + Encounter Details +--------+--------+ + + + | Date | Type | Department | Care Team | Description | +--------+--------+ + + + | 02/12/ | Travel [...] in contact | No / Unsure | 02/13/2020 9:18 AM | | with someone who was [...]
--- OUTSIDE RECORDS SUMMARY | ~2020-06-29 | XMS | Encounter Summary ---
Demographics + + + | Address | [address] | | | [place] [address] | + + + | Home Phone [...] Team Providers + +------+ + | Care Informatics Application Analyst Name | Role | Phone | + +------+ + | Lissette Martinez PA-C | PCP | | + +------+ + Reason for Visit Consultation (Urgent) + +--------+ + + + + | Status | Reason | Specialty | Diagnoses / | Referred By | Referred To | | | | | Procedures | Contact | Contact | + +--------+ + + + + | Authorized | | Neurological | Diagnoses | Karen, | Akash, | | | | Surgery | Kidney | Lissette, | Stephanie Aggarwal MD | | | | | cancer, | [address] | [address] [facility] | | | | | primary, | [place] | [facility] | | | | | with | Ct | Rd | | | | | metastasis | [place], | [place], [place] | | | | | from kidney | [place] | [address] | | | | | to other | [address] | Phone: | | | | | site, left | Phone: | [phone] | | | | | ([facility]) | [phone] | Fax: | | | | | Procedures | Fax: | [phone] | | | | | CONSULT TO | [phone] | | | | | | NEUROSURGERY | | | | | | | MA NEW | | | | | | | PATIENT | | | | | | | LEVEL V MA | | | | | | | EST PATIENT | | | | | | | LEVEL V | | | + +--------+ + + + + Encounter Details +--------+ + + + + | Date | Type | Department | Care Team | Description | +--------+ + + + + | 02/26/ | Telephone-S | Neurosurgery at | Stephanie Bustos MD | | | 2019 | cheduled | [facility] [address] | [address] [facility] | | | | | [facility] for | [facility] | | | | | Health and Healing, | [place], [place] | | | | | Building | [address] | | | | | floor [place], [place] | [phone] | | | | | [address] | | | | | | [phone] | | | +--------+ + + + [...] documented as of this encounter Progress Notes Stephanie Bustos MD - 02/27/2020 2:00 PM PDTTELEPHONE VISIT Patient agrees to a telephone encounter for today's visit. They understand they may be resp onsible for the balance after insurance processes the claim. I had the pleasure of having a phone visit with Tila Altman today. 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 Last Thursday (5 days ago) she developed sudden onset of speech hesitancy and right face weakness, and a new seizure. A stroke evalu ation at [place] ED discovered a hemorrhagic mass in the left frontal lobe. Since then she's had ongoing speech hesitancy and right facial droop, but otherwise no jeff tional symptoms. She cannot say whether her symptoms have improved or not since presentatio n. Assessment and Plan: We reviewed the imaging findings, and the finding of metastatic focus in the left frontal lobe with hemorrhage and surrounding edema that explains her symptoms. There was likely a hemorrhagic event last week that accounts for the sudden onset of symptom s. We reviewed the treatment options including the indication for radiotherapy to the lesio n, with or without surgery. Although surgery would likely achieve alleviation of mass effec t and potentially improve the course of her symptom recovery, the overall tumor control woul d likely be equivalent exterminator helper with or without surgical resection given the size of the tu mor. She expressed that she is hesitant to pursue surgery unless absolutely necessary and w ould like to proceed with radiotherapy. We discussed that should there be treatment failure or additional larger lesions appear in the future, surgery may become necessary and she exp ressed understanding. I spent 15 minutes on the phone with the patient of which greater than 50% was spent counse ling the patient regarding the details of their condition and current management. I answere d all questions and the patient expressed understanding at the conclusion of this visit. In addition, I instructed the patient to call the office should any issues or concerns arise. The visit took place via telephone with the provider located at the distant site of [facility]. T he patient stated they were located at the originating site of home and were in the state of [place] at the time of the telephone visit. The names of all persons participating in the cesar jurado visit and their roles are: myself and the patient Ms. Tila Altman. The patients encounter was accomplished via a telephone call today due to COVID-19 precauti onary measures to limit the patient's unnecessary exposure. Stephanie Bustos MD Pipefitter Helper Department of Neurological Surgery Surgical Co-director, Neuro-Oncology Clinical Research [facility] documented in this encounter Plan of Treatment Not on filedocumented as of this encounter Visit Diagnoses + + | Diagnosis | + + | Brain tumor (HCC) - Primary Neoplasm of unspecified nature of brain | + + documented in this encounter"
--- OUTSIDE RECORDS SUMMARY | ~2020-06-29 | XMS | Encounter Summary ---
Demographics + + + | Address | [address] | | | [place] [address] | + + + | Home Phone [...] Team Providers + +------+ + | Care Medicinal Chemist Name | Role | Phone | + +------+ + | Lissette Martinez PA-C PCP | | + +------+ + Encounter Details +--------+--------+ + + + | Date | Type | Department | Care Team | Description | +--------+--------+ + + + | 05/04/ | Travel | | | | | [...]
--- OUTSIDE RECORDS SUMMARY | ~2020-06-29 | XMS | Encounter Summary ---
Demographics + + + | Address | [address] | | | [place] [address] | + + + | Home Phone | | + + + | Preferred Language | Unknown | + + + | Marital Status | Single | + + + | Latter-Day Affiliation | CHR | + + + [...] Team Providers + +------+ + | Care Child Care Teacher Name | Role | Phone | + +------+ + | Lissette Martinez PA-C | PCP | | + +------+ + Encounter Details +--------+ + + + + | Date | Type | Department | Care Team | Description | +--------+ + + + + | 05/29/ | Telephone | [facility] | Lissette Jones, | | | 2019 | | Clinics at S | [place] [address] | | | | | [place] [address] | | | | | [facility] for | [place], [place] | | | | | Health and Healing, | [address] | | | | | [facility] | [phone] | | | | | [place], [place] | | | | | | [address] | | | | | | [phone] | | | +--------+ + + + [...] this encounter Miscellaneous Notes Telephone Encounter - Lito Keyes - 05/29/2020 6:[address] Jones, Please confirm if you are reqeusting VV 12:45pm 3-4 weeks (OB) or Virtual 06/05 @12:45 pm (O B)? Routing to and RNC do cumented in this encounter Plan of Treatment Not on filedocumented as of this encounter Visit Diagnoses Not on filedocumented in this encounter"
--- OUTSIDE RECORDS SUMMARY | ~2020-06-29 | XMS | Encounter Summary ---
Demographics + + + | Address | [address] | | | [place] [address] | + + + | Home Phone [...] Team Providers + +------+ + | Care Primary Therapist Name | Role | Phone | + +------+ + | Lissette Martinez PA-C | PCP | | + +------+ + Reason for Visit + +--------+ + | Reason | Onset | Comments | | | Date | | + +--------+ + | Refill Request | 03/16/ | | | | 2020 | | + +--------+ + Encounter Details +--------+--------+ + + + | Date | Type | Department | Care Team | Description | +--------+--------+ + + + | 03/16/ | Refill | [facility] | Lissette Jones, | Refill Request | | 2020 | | Clinics at S | [place] [address] | | | | | [place] [address] | | | | | [facility] for | [place], [place] | | | | | Health and Healing, | [address] | | | | | Building [address] | [phone] | | | | | [place], [place] | | | | | | [address] | | | | | | [phone] | | | +--------+--------+ + + + [...] this encounter Miscellaneous Notes Telephone Encounter - Doreen Chinchilla MA - 03/19/2020 3:52 PM PDT Last appointment with Lissette Jones MD was on 03/12/2020 . Next appointment with Lissette Jones MD is scheduled on 04/02/2020. Last LIP progress note reviewed. Is there documentation to indicate that medication being r equested has been changed or discontinued? No Allergy list reviewed--Is the medication being requested on the patient's current allergy l ist? No Previous Prescription Details copied below: Date and Time Department Ordering/Authorizing 02/13/2020 10:43 AM [facility] Lissette Jones MD Outpatient Medication Detail Disp Refills oxyCODONE (immediate release) 5 mg oral tablet 120 tablet 0 Sig: Take 1 tablet by mouth every four hours as needed. Sent to pharmacy as: oxyCODONE 5 mg tablet (ROXICODONE) Class: eRx Earliest Fill Date: 02/13/2020 Route: oral Order: [id number] E-Prescribing Status: Receipt confirmed by pharmacy (02/13/2020 10:43 AM PDT) Start Date Earliest Fill Date Feb 13, 2020 Feb 13, 2020 Date and Time Department Ordering/Authorizing 11/28/2019 4:50 PM [facility] Lissette Jaime, DO Outpatient Medication Detail Disp Refills enoxaparin 80 mg/0.8 mL subcutaneous syringe (Discontinued) 48 mL 0 Sig: Inject 0.8 mL under the skin (SUBC) every twelve hours. Indications: anticoagulation t reatment Sent to pharmacy as: enoxaparin 80 mg/0.8 mL subcutaneous syringe (LOVENOX) Class: eRx Route: subcutaneous Reason for Discontinue: Reorder Order: [id number] Start Date End Date Nov 28, 2019 Dec 26, 2019 Controlled Substance Requested: Routing to RN Coordinator for review prior to sending to [facility] Rebolledoally signed by Doreen Chinchilla MA at 03/19/2020 3:58 PM PDTTelephone Encounter - Carlo Navas - 03/19/2020 3:40 PM PDTPatient calls, states that [facility] in [facility] have sent a request from Oxycodone on Thursday, but they have not received the prescripti on yet. She only has about 2 days' worth left. This request is for Lovenox; please refill the patient's Oxycodone as well NANCI. Routing to [facility] Routing to Prescriber as FYI Medication Refill Request Ambulatory Oncology What is the name of the provider for this prescription refill request?: Medication prescrib ed by any other LIP Have you already contacted your pharmacy to refill?: Yes, but this pharm acy will not send a request for this category of medication and redirected patient to contac t clinic directly. Name of medication: Lovenox Dose: 80 mg Frequency - How often are you taking it?: every 12 hrs How much of the prescription do you have left - When will you run out?: none Pharmacy the patient wants the prescription refilled at: [id number] - [place], [place] - [address] [phone] Is it ok to leave a confidential voicemail?: Patient approves confidential and detailed mes sages left on answering machine and voicemail. Patient reminded of Clinic Refill Policy: 48-72 business hours to process refill requests. Medication Refill Request Ambulatory Oncology What is the name of the provider for this prescription refill request?: Medication prescrib ed by any other LIP Have you already contacted your pharmacy to refill?: Yes, but this pharm acy will not send a request for this category of medication and redirected patient to [facility] directly. Name of medication: Oxycodone Dose: 5 mg Frequency - How often are you taking it?: 1 every 4 hours as needed How much of the prescription do you have left - When will you run out?: 2 days' worth left Pharmacy the patient wants the prescription refilled at: [id number] - [place], [place] - [address] [phone] Is it ok to leave a confidential voicemail?: Patient approves confidential and detailed mes sages left on answering machine and voicemail. Patient reminded of Clinic Refill Policy: 48-72 business hours to process refill requests. elephone Encounter - Anai Toribio - 03/16/2020 4:36 PM PDTRx Refill: Routing encounter to [facility] law for processing.. Pharmacy Name: [facility] Phone #: [phone] -->SAMSON : Please review prescription refill request. Thank you. documented in this encount er Plan of Treatment Not on filedocumented as of this encounter Visit Diagnoses Not on filedocumented in this encounter"
--- OUTSIDE RECORDS SUMMARY | ~2020-06-29 | XMS | Encounter Summary ---
Demographics + + + | Address | [address] | | | [place] [address] | + + + | Home Phone [...] Author + + + | Author | [facility] | + + + | Organization | [facility] | + + + | Address | Unknown | + + + | Phone | Unavailable | + + + Support + + +---------+ + | Name | Relationship | Address | Phone | + + +---------+ + | William Talavera | ECON | Unknown | | + + +---------+ + Care Team Providers + +------+ + | Care Ophthalmic Technician Apprentice Name | Role | Phone | + +------+ + | Lissette Martinez PA-C | PCP | | + +------+ + Encounter Details +--------+ + + + + | Date | Type | Department | Care Team | Description | +--------+ + + + + | 11/27/ | Pharmacy | Outpatient Retail | | | | 2019 | Visit | Clinic Pharmacy | | | | | | [address] | | | | | | [place], [place] | | | | | | [address] | | | | | | [phone] | | | +--------+ + + + [...]
--- OUTSIDE RECORDS SUMMARY | ~2020-06-29 | XMS | Encounter Summary ---
Demographics + + + | Address | [address] | | | [place] [address] | + + + | Home Phone | | + + + | Preferred Language | Unknown | + + + | Marital Status | | + + + | Jew Affiliation | 1013 | + + + | Race | or Other | + + + | Ethnic Group | Not or | + + + Author + + + | Author | [facility] | | | and Shahram | + + + | Organization | [facility] | | | and [...] Team Providers + +------+ + | Care Checkering Machine Adjuster Name | Role | Phone | + +------+ + PCP | Unavailable | + +------+ + Encounter Details +--------+ + + + + | Date | Type | Department | Care Team | Description | +--------+ + + + + | 10/31/ | Hospital | [facility] | | | | 2004 - | Encounter | MED CTR GENERIC OP | | | | | | CONV DEPT [address] | | | | 01/29/ | | [place], | | | | 2004 | | [place] [address] | | | | | | [phone] | | | +--------+ + + + [...]
--- OUTSIDE RECORDS SUMMARY | ~2020-06-29 | XMS | Encounter Summary ---
Demographics + + + | Address | [address] | | | [place] [address] | + + + | Home Phone | | + + + | Preferred Language | Unknown | + + + | Marital Status | Single | + + + | Caodaism Affiliation | CHR | + + + | Race | White | + + + | Ethnic Group | Not or | + + + Author + + + | Author | [facility] | + + + | Organization | [facility] | + + + | Address | Unknown | + + + | Phone | Unavailable | + + + Support + + +---------+ + | Name | Relationship | Address | Phone | + + +---------+ + | William Talavera | ECON | Unknown | | + + +---------+ + Care Team Providers + +------+ + | Care Production Technologist Name | Role | Phone | + +------+ + | Lissette Martinez PA-C | PCP | | + +------+ + Encounter Details +--------+ + + + + | Date | Type | Department | Care Team | Description | +--------+ + + + + | 12/26/ | Pharmacy | Outpatient Retail | | | | 2019 | Visit | Clinic Pharmacy | | | | | | [address] | | | | | | [address] [place], [place] | | | | | | [address] | | | | | | [phone] | | | +--------+ + + + [...]
--- OUTSIDE RECORDS SUMMARY | ~2020-06-29 | XMS | Encounter Summary ---
Demographics + + + | Address | [address] | | | [place] [address] | + + + | Home Phone | | + + + | Preferred Language | Unknown | + + + | Marital Status | | + + + | Adventism Affiliation | 1013 | + + + | Race | or Other | + + + | Ethnic Group | Not or | + + + Author + + + | Author | [facility] | | | and Shahram | + + + | Organization | [facility] | | | and [place]ana [...] Team Providers + +------+ + | Care Electrical Instrument Technician Name | Role | Phone | + +------+ + | Lissette Martinez | PCP | | | RADAH | | | + +------+ + Encounter [...] | | | [address] | [place] [address] | | | | | [place] [address] | | | | | | [phone] | | | +--------+ + + + [...] +--------+ + + + | MRI BRAIN W WO | Routin | 08/30/2019 | | Results for this | | CONTRAST | e | 12:00 AM | | procedure are in the | | | | PST | | results section. | + +--------+ + + + documented in this encounter Results MRI Brain w wo Contrast (08/30/2019 12:00 AM PST) + + | Specimen [...]
--- OUTSIDE RECORDS SUMMARY | ~2020-06-29 | XMS | Encounter Summary ---
Demographics + + + | Address | [address] | | | [place] [address] | + + + | Home Phone [...] Team Providers + +------+ + | Care Wardrobe Attendant Name | Role | Phone | + +------+ + | Lissette Martinez PA-C PCP | | + +------+ + Encounter Details +--------+--------+ + + + | Date | Type | Department | Care Team | Description | +--------+--------+ + + + | 09/19/ | Travel | | | | | [...]
--- OUTSIDE RECORDS SUMMARY | ~2020-06-29 | XMS | Encounter Summary ---
Demographics + + + | Address | [address] | | | [place] [address] | + + + | Home Phone | | + + + | Preferred Language | Unknown | + + + | Marital Status | | + + + | Rastafarian Affiliation | 1013 | + + + | Race | or Other | + + + | Ethnic Group | Not or | + + + Author + + + | Author | [facility] | | | and Shahram | + + + | Organization | [facility] | | | and [...] Team Providers + +------+ + | Care Salesperson Parts Name | Role | Phone | + +------+ + PCP | Unavailable | + +------+ + Encounter Details +--------+ + + + + | Date | Type | Department | Care Team | Description | +--------+ + + + + | 10/31/ | Hospital | [facility] | | | | 2004 - | Encounter | MED CTR GENERIC OP | | | | | | CONV DEPT [address] | | | | 01/29/ | | [place], | | | | 2004 | | [place] [address] | | | | | | [phone] | | | +--------+ + + + [...]
--- OUTSIDE RECORDS SUMMARY | ~2020-06-29 | XMS | Encounter Summary ---
Demographics + + + | Address | [address] | | | [place] [address] | + + + | Home Phone [...] Team Providers + +------+ + | Care Slab Lifting Engineer Name | Role | Phone | [...] [address] | | | | | | [address] [place] | | | | | | [address] | | | | | | [place], [place] | | | | | | [address] | | | | | | [phone] | | | +--------+ + + + [...]
--- OUTSIDE RECORDS SUMMARY | ~2020-06-29 | XMS | Encounter Summary ---
Demographics + + + | Address | [address] | | | [place] [address] | + + + | Home Phone | | + + + | Preferred Language | Unknown | + + + | Marital Status | Single | + + + | Congregation Affiliation | CHR | + + + [...] Providers + +------+ + | Care Community Worker Name | Role | Phone | + +------+ + | Lissette Martinez PA-C | PCP | | + +------+ + Reason for Visit + +--------+ + | Reason | Onset | Comments | | | Date | | + +--------+ + | Covid19 Screening | 02/09/ | | | | 2020 | | + +--------+ + Encounter Details +--------+ + + + + | Date | Type | Department | Care Team | Description | +--------+ + + + + | 02/09/ | Telephone | [facility] | Lissette Jones, | Covid19 Screening | | 2019 | | [address] | [address] | | | | | [address] | | | | | [place], [place] | [place], [place] | | | | | [address] | [address] | | | | | [phone] | [phone] | | | | | | | [...] this encounter Miscellaneous Notes Telephone Encounter - Hilario Duarte MA - 02/10/2020 9:35 AM PDTKCI COVID-19 24 hr Screen Symptoms: Cough: No Fever: No Sore Throat: No Shortness of Breath: No Exposure Assessment: Tested for COVID-19: No Contact with COVID-19 Positive or Suspected Individual: No documented in this encou nter Plan of Treatment Not on filedocumented as of this encounter Visit Diagnoses Not on filedocumented in this encounter"
--- OUTSIDE RECORDS SUMMARY | ~2020-06-29 | XMS | Encounter Summary ---
Demographics + + + | Address | [address] | | | [place] [address] | + + + | Home Phone | | + + + | Preferred Language | Unknown | + + + | Marital Status | Single | + + + | Sabianism Affiliation | CHR | + + + | Race | White | + + + | Ethnic Group | Not or | + + + Author + + + | Author | [facility] | + + + | Organization | [facility] | + + + | Address | Unknown | + + + | Phone | Unavailable | + + + Support + + +---------+ + | Name | Relationship | Address | Phone | + + +---------+ + | William Talavera | ECON | Unknown | | + + +---------+ + Care Team Providers + +------+ + | Care Auto Design Checker Name | Role | Phone | + +------+ + | Lissette Martinez PA-C | PCP | | + +------+ + Encounter Details +--------+ + + + + | Date | Type | Department | Care Team | Description | +--------+ + + + + | 05/01/ | MyChart | Radiation Oncology | Antwon Beard, | RE: Tessa Altman | | 2019 | Encounter | at [facility] [address] | [address] | | | | | [address] [place] | [facility] | | | | | [place], [facility] floor | [place], [place] | | | | | [facility] [place] | [address] | | | | | [address] | [phone] | | | | | [phone] | | | +--------+ + + + [...]
--- OUTSIDE RECORDS SUMMARY | ~2020-06-29 | XMS | Encounter Summary ---
Demographics + + + | Address | [address] | | | [place] [address] | + + + | Home Phone | | + + + | Preferred Language | Unknown | + + + | Marital Status | Single | + + + | Confucianism Affiliation | CHR | + + + | Race | White | + + + | Ethnic Group | Not or | + + + Author + + + | Author | [facility] | + + + | Organization | [facility] | + + + | Address | Unknown | + + + | Phone | Unavailable | + + + Support + + +---------+ + | Name | Relationship | Address | Phone | + + +---------+ + | William Talavera | ECON | Unknown | | + + +---------+ + Care Team Providers + +------+ + | Care Log Sorter Name | Role | Phone | + [...] | | Clinics at S | [place] [address] | | | | | [place] [address] | | | | | [facility] for | [facility], [place] | | | | | Health and Healing, | [address] | | | | | [facility] | [phone] | | | | | [place], [place] | | | | | | [address] | | | | | | [phone] | | | +--------+ + + + [...] process. Heather states no authorization required from [facility], pt is okay to schedule. They will [...] requested this office to complete it. Called [facility] and spoke with Omkar to clarify this process. Per Tiago bryan, [facility] would not be responsible for requesting auth in this case. She noted that [facility] is responsible to obtaining auth for inbound referrals received to ensure that services rendere d will be covered by the health plan. Called Heather back and relayed this info. Heather sta juice that she would notify the pt. She had no further questions. -->Note to RNC: HOMA elephone Encounter - Irene aSntiago - 11/07/2019 8:46 AM PSTGeneral Message: What [...] e will send the Radiation Referral to [facility] in [place]. Pt called [facility] today and they still have not received the referral. Please fax referr al and insurance authoriation to: [phone]. [facility] phone number: [phone]. Please call pt to let her know [...]
--- OUTSIDE RECORDS SUMMARY | ~2020-06-29 | XMS | Encounter Summary ---
Demographics + + + | Address | [address] | | | [place] [address] | + + + | Home Phone | | + + + | Preferred Language | Unknown | + + + | Marital Status | Single | + + + | Shinto Affiliation | CHR | + + + [...] Team Providers + +------+ + | Care Agency Cashier Name | Role | Phone | [...] Closed | | Radiology | Diagnoses | Macy | [address] Scan | | | | | Renal mass | MD Ash | s [address] | | | | | Procedures | [address] | [address] | | | | | US BIOPSY | [facility] | Digna REID | | | | | LIVER WITH | Rd | [facility], | | | | | GUIDANCE | [place], [place] | 10th Floor | | | | | ABDOMEN | [address] | [place], [place] | | | | | BIOPSY | Phone: | [phone] | | | | | REQUEST MO | [phone] | Phone: | | | | | BIOPSY OF | Fax: | [phone] | | | | | LIVER, | [phone] | Fax: | | | | | NEEDLE, | | [phone] | | | | | PERCUTANEOUS | | | | | | | MO SONO | | | | | | | GUIDE FOR | | | | | | | NEEDLE | | | | | | | PLACEMENT | | | +--------+--------+ + + + + Reason for Visit AUTH/CERT +--------+--------+ + + + + | [...] | +--------+ + + + + | 08/16/ | Hospital | [facility] [address] | Monica Wylie MD | | | 2019 | Encounter | [address] | [address] | | | | | [address] [facility] | Digna S[place], | | | | | [place], [place] | [place] [address] | | | | | [address] | [phone] | | | | | [phone] | | | +--------+ + + + [...] + + + | Blood Pressure | 89/52 | 08/16/2019 5:41 PM | | | | | PST | | + + + + + | Pulse | 91 | 08/16/2019 5:41 PM | | | | | PST | | + + + + + | Temperature | 36.5 C (97.7 F) | 08/16/2019 4:00 PM | | | | | PST | | + + + + + | Respiratory Rate | 23 | 08/16/2019 5:41 PM | | | | | PST | | + + + + + | Oxygen Saturation | 100% | 08/16/2019 5:41 PM | | | | | PST | | + + + + + | Inhaled Oxygen | - | - | | | Concentration | | | | + + + + + | Weight | 95.7 kg (211 lb) | 08/16/2019 1:10 PM | | | | | PST | | + + + + + | Height | 157.5 cm (5' 2") | 08/16/2019 1:10 PM | | | | | PST | | + + + + + | Body Mass Index | 38.59 | 08/16/2019 1:10 PM | | | | | PST | | + + + + + documented in this encounter Discharge Instructions Instructions Sheri Tomas RN - 08/15/2019[place] Care Instructions: Liver Biopsy Diet and Medications: Resume your normal diet and take your usual medications unless the [facility] care provider who ordered your biopsy instructed otherwise. Do not start taking blood thinners or antiplatelet medications without clear instructions f rom the health care provider who ordered your biopsy. If you need medication for pain after your procedure, take prescription or [id number] pain medications as instructed by the health care provider who ordered your biopsy. Contact the provider who ordered your biopsy if you think your pain medication is not working or yo u have any questions about your pain medication. Puncture Site Care: Keep the puncture site clean and dry. If you have a bandage or dressing over your puncture site, you may remove it 24 hours after your procedure. You may shower on ce you have removed your bandage or dressing. Activity: When you return home, rest quietly and limit your activity for the remainder of day. No strenuous activity, such as heavy lifting or athletics, for 24 hours. You may ret urn to work the day after your procedure, as long as you do not need to do any heavy lifting or vigorous activity. When should I call someone? Notify your health care provider or the Diagnostic Radiology Department if you develop any of the following problems: ? Chills or a fever ? Dizziness or trouble breathing ? Nausea and vomiting that won t stop ? Pain in the chest or shoulder ? Increasing abdominal swelling or bloating ? Blood in the stool ? Increased pain, redness, swelling, or drainage at your puncture site ? Excessive bright red bleeding from your puncture site How to Reach Us: Thursday thru Thursday 8:00 am to 5:00 pm: Call and ask to speak with a [facility] radiology nurse. After 4:30 pm: Call the [facility] tower hoist operator at and ask to have the [facility] resident public relations supervisor paged. If you feel you require immediate care, please go to the nearest Emergency Room or call 911 . Follow-up Care: Follow-up care is an important part of your treatment and safety. Be sure to make and go to all appointments with the health care provider who ordered your procedure. Results: Please contact the health care provider who ordered your procedure to discuss any results. documented in this encounter Medications at Time [...] | + +--------+ + + + | PROCEDURE NOTE | Routin | 08/16/2019 | | Results for this | | | e | 6:11 PM | | procedure are in the | | | | PST | | results section. | + +--------+ + + + | US BIOPSY LIVER WITH | Urgent | 08/16/2019 | Renal mass | Results for this | | GUIDANCE | | 4:11 PM | | procedure are in the | | | | PST | | results section. | + +--------+ + + + | SURGICAL PATHOLOGY | Routin | 08/16/2019 | | Results for this | | | e | 4:04 PM | | procedure are in the | | | | PST | | results section. | + +--------+ + + + documented in this encounter Results PROCEDURE NOTE (08/16/2019 6:11 PM PST)US BIOPSY LIVER WITH GUIDANCE (08/16/2019 4:11 PM PST) + + | Specimen | + + | | + + + + + | Narrative | Performed At | + + + | PROCEDURE: US-GUIDED LIVER BIOPSY. HISTORY: History of | [facility] | | Hodgkin's lymphoma in 2002 now with large left renal tumor and liver | RADIOLOGY VOICE | | lesions. Focused history and physical exam: Vital signs stable, | RECOGNITION 2 | | heart rate regular, lungs clear to auscultation. No significant | | | changes in relevant past or current medical conditions. Patient | | | condition is appropriate for current procedure, will proceed with | | | procedure. I agree with the Sedation/Analgesia plan as documented in | | | EPIC. COMPARISON: Outside CT 07/27/2019 TECHNIQUE: After | | | a procedures, alternatives, risks, and questions (PARQ) conference, | | | written and oral consent was obtained from the patient. A Team Pause | | | was performed. The liver was scanned, and a point was marked on the | | | skin, overlying the hypoechoic lesion within the dome of the right | | | hepatic lobe. The area was prepped and draped in sterile fashion. | | | Several ml of 1% buffered lidocaine was used for local anesthesia. | | | Under ultrasound guidance, a 17-gauge coaxial needle was advanced to | | | the lesion and subsequently 3 18-g core biopsies were obtained. The | | | specimen was submitted in formalin to pathology. The patient | | | tolerated the procedure without complication and returned to [facility] PCU | | | for post-procedure monitoring. Moderate sedation was supervised by | | | the attending radiologist and administered by the radiology nurse | | | using 1 mg Versed IV and 100 mcg Fentanyl IV. Sedation start time | | | 1521. Sedation stop time 1540. FINDINGS: The liver | | | demonstrates diffusely heterogeneous echogenicity with multiple | | | hypoechoic lesions within the right hepatic lobe. The main portal vein | | | measures up to 8 mm in diameter. The gallbladder contains layering | | | sludge. Procedure image demonstrates the needle tip within a | | | hypoechoic lesion within the right hepatic. Post procedure imaging | | | shows no hematoma. IMPRESSION: Ultrasound-guided liver | | | biopsy of a hypoechoic right hepatic lobe lesion. Attestation | | | statement: By my electronic signature below, I, the attending | | | radiologist, was present for the entire procedure as described in this | | | note. I have personally reviewed the images and, if necessary, | | | edited the report. I agree with the report as now presented. | | | Final signature: Monica Wylie MD 08/16/2019 5:18 PM Preliminary: | | | Norbert Jones MD 08/16/2019 4:06 PM Dictation initiated: Norbert | | | MD Robert 08/16/2019 4:03 PM | | + + + + + | Procedure Note | + + | Service Account, Radiant Res In Interface - 08/16/2019 5:19 PM PST PROCEDURE: | | US-GUIDED LIVER BIOPSY. HISTORY: History of Hodgkin's lymphoma in 2002 now with large | | left renal tumor and liver lesions. Focused history and physical exam: Vital signs | | stable, heart rate regular, lungs clear to auscultation. No significant changes in | | relevant past or current medical conditions. Patient condition is appropriate for | | current procedure, will proceed with procedure. I agree with the Sedation/Analgesia plan | | as documented in EPIC. COMPARISON: Outside CT 07/27/2019 TECHNIQUE: After a | | procedures, alternatives, risks, and questions (PARQ) conference, written and oral | | consent was obtained from the patient. A Team Pause was performed. The liver was | | scanned, and a point was marked on the skin, overlying the hypoechoic lesion within the | | dome of the right hepatic lobe. The area was prepped and draped in sterile fashion. | | Several ml of 1% buffered lidocaine was used for local anesthesia. Under ultrasound | | guidance, a 17-gauge coaxial needle was advanced to the lesion and subsequently 3 18-g | | core biopsies were obtained.The specimen was submitted in formalin to pathology. The | | patient tolerated the procedure without complication and returned to 11B PCU for | | post-procedure monitoring. Moderate sedation was supervised by the attending radiologist | | and administered by the radiology nurse using 1 mg Versed IV and 100 mcg Fentanyl IV. | | Sedation start time 1521. Sedation stop time 1540. FINDINGS: The liver demonstrates | | diffusely heterogeneous echogenicity with multiple hypoechoic lesions within the right | | hepatic lobe. The main portal vein measures up to 8 mm in diameter. The gallbladder | | contains layering sludge. Procedure image demonstrates the needle tip within a | | hypoechoic lesion within the right hepatic. Post procedure imaging shows no hematoma. | | IMPRESSION: Ultrasound-guided liver biopsy of a hypoechoic right hepatic lobe lesion. | | Attestation statement: By my electronic signature below, I, the attending radiologist, | | was present for the entire procedure as described in this note. I have personally | | reviewed the images and, if necessary, edited the report. I agree with the report as now | | presented. Final signature: Monica Wylie MD 08/16/2019 5:18 PM Preliminary: Norbert | | MD Robert 08/16/2019 4:06 PM Dictation initiated: Norbert Jones MD 08/16/2019 4:03 | | PM | | | |Attestation statement: By my electronic signature below, I, the attending radiologist, was present for the entire procedure as described in this note. | | | |I have personally reviewed the images and, if necessary, edited the report. I agree with th e report as now presented. | | | |Final signature: Monica Wylie MD 08/16/2019 5:18 PM | |Preliminary: Norbert Jones MD 08/16/2019 4:06 PM | |Dictation initiated: Norbert MD Robert 08/16/2019 4:03 PM | + + + +---------+ + + | Performing | Address | City/State/Zipcode | Phone Number | | Organization | | | | + +---------+ + + | [facility] | | | | | VOICE RECOGNITION 2 | | | | + +---------+ + + SURGICAL PATHOLOGY (08/16/2019 4:04 PM PST) + + + + + + | Component | Value | Ref Range | Performed | Pathologist | | | | | At | Signature | + + + + + + | Clinical | History of Hodkin | | [facility] | | | History | lymphoma, now with left | | DEPARTMENT | | | | renal mass and liver | | OF | | | | lesions. Concern for | | PATHOLOGY | | | | lymphoma vs RCC mets | | | | + + + + + + | Final | Liver mass, needle | | [facility] | Electronically | | Pathologic | biopsy: Metastatic | | DEPARTMENT | signed by | | Diagnosis | renal cell carcinoma, | | OF | Arnold | | | clear cell type [see | | PATHOLOGY | Neri on | | | comment] Comment: The | | | 08/18/2019 at | | | malignant cell | | | 9:36 AM | | | population is positive | | | | | | for PAX8 and CA-9 while | | | | | | negative for CK7, | | | | | | HepPar-1, Arginase, | | | | | | Glypican 3, p63 and | | | | | | MARY-3 consistent with | | | | | | renal cell carcinoma. A | | | | | | reticulin stain was | | | | | | performed and | | | | | | reviewed.Paulina Mcmillan | | | | | | MD [place] - Pathology | | | | | | ResidentChristian | | | | | | MD Neri, PhD | | | | | | | | | | | | PathologistPathology, | | | | | | [facility] | | | | | | [facility] Flow | | | | | | cytometry reviewed | | | | | | by:Marshal Meyer MD - | | | | | | Hematopathology | | | | | | FellowJoanna | | | | | | MD Geovanny - | | | | | | HematopathologistPatholo | | | | | | gy, [facility] | | | | | | Science UniversityMy | | | | | | electronic signature | | | | | | indicates that I have | | | | | | personally reviewed all | | | | | | diagnostic slides, the | | | | | | gross and/or microscopic | | | | | | portion of this report | | | | | | and formulated the final | | | | | | diagnosis.Flow | | | | | | cytometric analysis:A | | | | | | limited flow cytometric | | | | | | analysis identifies | | | | | | nearly all cells as | | | | | | lymphocytes with | | | | | | approximately 1% | | | | | | polyclonal B-cells and | | | | | | greater than 90% T-cells | | | | | | with reversed CD4:CD8 | | | | | | ratio of 0.2:1 without | | | | | | antigenic aberrancy. A | | | | | | Sánchez stained cytospin | | | | | | preparation of material | | | | | | submitted for flow | | | | | | cytometric analysis is | | | | | | reviewed.Antibodies | | | | | | Tested CD2 CD3 CD4 CD5 | | | | | | CD7 CD8 CD10 CD19 CD20 | | | | | | CD23 CD25 CD34 CD45 CD56 | | | | | | CD103 sKappa sLambda | | | | | | | | | | + + + + + + | Gross | Received is one specimen | | [facility] | | | Description | in 2 containers labeled | | DEPARTMENT | | | | with the patient's name | | OF | | | | (initials AA) and | | PATHOLOGY | | | | medical record number | | | | | | [id number].A. Liver, : | | | | | | Received in formalin | | | | | | labeled "VARGAS" are 3 core | | | | | | fragments of العلي-pink | | | | | | soft tissue ranging from | | | | | | 0.2 to 1.3 cm long each | | | | | | by 0.1 cm diameter. | | | | | | Submitted entirely, | | | | | | wrapped, in A1-A2.Also | | | | | | received in 10 mL of | | | | | | saline is 1 core of العلي | | | | | | soft tissue, 1.6 cm long | | | | | | by 0.1 cm diameter. | | | | | | Submitted entirely in | | | | | | RPMI for flow | | | | | | cytometry.MILINDK | | | | + + + + + + | Ancillary | Analyte specific | | [facility] | | | Information | reagents are used in | | DEPARTMENT | | | | many laboratory tests | | OF | | | | necessary for standard | | PATHOLOGY | | | | medical care. This test | | | | | | was developed and its | | | | | | performance | | | | | | characteristics | | | | | | determined by [facility] | | | | | | laboratories. It has not | | | | | | been cleared or | | | | | | approved by the US Food | | | | | | and Drug Administration | | | | | | (FDA). FDA does not | | | | | | require this test to go | | | | | | through premarket FDA | | | | | | review. This test is | | | | | | used for clinical | | | | | | purposes. It should not | | | | | | be regarded as | | | | | | investigational or for | | | | | | research. This | | | | | | laboratory is certified | | | | | | under the Clinical | | | | | | Laboratory Improvement | | | | | | Amendments (CLIA) as | | | | | | qualified to perform | | | | | | high complexity clinical | | | | | | laboratory testing. If | | | | | | immunohistochemical | | | | | | analysis (IHC) was | | | | | | performed concurrently | | | | | | with flow cytometry, the | | | | | | IHC was done to allow | | | | | | assessment of | | | | | | immunoarchitecture, | | | | | | which is not supplied by | | | | | | flow cytometry. Flow | | | | | | cytometry enables better | | | | | | assessment of clonality | | | | | | and antigen aberrancy | | | | | | than IHC. Appropriate | | | | | | positive controls and/or | | | | | | negative controls were | | | | | | used for all stains, | | | | | | including | | | | | | immunohistochemical | | | | | | stains, special stains, | | | | | | and in situ | | | | | | hybridization, and these | | | | | | reacted appropriately. | | | | + + + + + + + + | Specimen | + + | Tissue - Liver | | structure (body | | structure) | + + + + + + + | Performing | Address | City/State/Zipcode | Phone Number | | Organization | | | | + + + + + | [facility] | [address] | [place] [address] | | | PATHOLOGY | [address] | | | + + + + + documented in this encounter Visit Diagnoses + + | Diagnosis | + + | Renal mass Unspecified disorder of kidney and ureter | + + documented in this encounter Administered Medications + +--------+---------+------+------+------+ | Medication Order | MAR | Action | Dose | Rate | Site | | | Action | Date | | | | + +--------+---------+------+------+------+ + +---+ | acetaminophen (TYLENOL) tablet | | | 325-650 mg 325-650 mg, oral, | | | EVERY 4 HOURS NEEDED, Starting | | | Thu08/16/19 at 1557, Until Wed | | | 08/17/19 at 0011, mild pain, | | | multimodal pain control | | + +---+ | | | + +---+ + +-------+ +--------+---+---+ | fentaNYL (SUBLIMAZE) injection | Given | 08/16/20 | 50 mcg | | | | 25-50 mcg 25-50 mcg, | | 19 4:05 | | | | | intravenous, EVERY 1 HOUR | | PM PST | | | | | NEEDED, Starting Thu08/16/19 at | | | | | | | 1557, Until Thu08/17/19 at 0011, | | | | | | | severe pain | | | | | | + +-------+ +--------+---+---+ +---+---+ | | | +---+---+ + +-------+ +---------+---+---+ | fentaNYL (SUBLIMAZE) injection | Given | 08/16/20 | 100 mcg | | | | intravenous, INTRAPROCEDURE PRN, | | 19 3:21 | | | | | Starting Thu08/16/19 at 1521, | | PM PST | | | | | Until Thu08/16/19 at 1521 | | | | | | + +-------+ +---------+---+---+ +---+---+ | | | +---+---+ + +-------+ +---------+---+---+ | HYDROcodone-acetaminophen | Given | 08/16/20 | 2 | | | | (NORCO) 5-325 mg tablet 1-2 | | 19 5:30 | tablets | | | | tablet 1-2 tablet, oral, EVERY 4 | | PM PST | | | | | HOURS NEEDED, Starting Tue | | | | | | | 08/16/19 at 1557, Until Wed | | | | | | | 08/17/19 at 0011, moderate pain | | | | | | + +-------+ +---------+---+---+ +---+---+ | | | +---+---+ + +-------+ +------+---+---+ | midazolam (PF) (VERSED) | Given | 08/16/20 | 1 mg | | | | injection intravenous, | | 19 3:21 | | | | | INTRAPROCEDURE PRN, Starting Tue | | PM PST | | | | | 08/16/19 at 1521, Until Tue | | | | | | | 08/16/19 at 1521 | | | | | | + +-------+ +------+---+---+ + +---+ | | | + +---+ | ondansetron (ZOFRAN) injection | | | 4 mg 4 mg, intravenous, | | | NEEDED, 1 dose, Starting Thu | | | 08/16/19 at 1557, Until Thu | | | 08/17/19 at 0011, | | | nausea/vomiting, first line | | + +---+ | | | + +---+ documented in this encounter
--- OUTSIDE RECORDS SUMMARY | ~2020-06-29 | XMS | Encounter Summary ---
Demographics + + + | Address | [address] | | | [place] [address] | + + + | Home Phone [...] Team Providers + +------+ + | Care Farm Mechanic Name | Role | Phone | + [...]
--- OUTSIDE RECORDS SUMMARY | ~2020-06-29 | XMS | Encounter Summary ---
Demographics + + + | Address | [address] | | | [place] [address] | + + + | Home Phone [...] Team Providers + +------+ + | Care Cleaner Name | Role | Phone | + [...] | Radiology | Diagnoses | Vuky, | | | | | | Kidney | [place] | | | | | | cancer, | [place] [address] | | | | | | primary, | [place] | | | | | | with | Ct | | | | | | metastasis | [place], | | | | | | from kidney | [place] | | | | | | to other | [address] | | | | | | site, left | Phone: | | | | | | (HCC) | [phone] | | | | | | Procedures | Fax: | | | | | | [facility]ONE &/OR | [phone] | | | | | | JOINT | | | | | | | IMAGING | | | | | | | TOMOGRAPHIC | | | | | | | (SPECT) | | | + +--------+ + + [...] | | | Kidney | [place], | [facility] [address] | | | | | cancer, | [place] [address] | [address] | | | | | primary, | [place] | [address] | | | | | with | Ct | [place], | | | | | metastasis | [place], | Basement | | | | | from kidney | [place] | [place], [place] | | | | | to other | [address] | [address] | | | | | site, left | Phone: | Phone: | | | | | (HCC) | [phone] | [phone] | | | | | Procedures | Fax: | Fax: | | | | | [facility]ONE &/OR | [phone] | [phone] | | | | | JOINT | | | | | | | IMAGING | | | | | | | WHOLE BODY | | | | | | | MA BONE | | | | | | [...] | | 2019 | Encounter | at [facility] [address] | [address] | | | | | [address] | [address] | | | | | [place], | [facility] [place] | | | | | [place], | [address] | | | | | [place] [address] | [phone] | | | | | [phone] | | | +--------+ + + + [...] | + +--------+ + + + | ORDERS OTHER | | 08/23/2019 | | Results for this [...] | | | + +---------+ + + ORDERS OTHER (08/23/2019 12:00 AM PST) + + + | Narrative | Performed At | + + + | | | + + + documented in this encounter Visit Diagnoses + + | Diagnosis | + + | Kidney cancer, primary, 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
--- OUTSIDE RECORDS SUMMARY | ~2020-06-29 | XMS | Encounter Summary ---
Demographics + + + | Address | [address] | | | [place] [address] | + + + | Home Phone | | + + + | Preferred Language | Unknown | + + + | Marital Status | | + + + | Yarsanism Affiliation | 1013 | + + + | Race | or Other | + + + | Ethnic Group | Not or | + + + Author + + + | Author | [facility] | | | and [place] | + + + | Organization | [facility] | | | and [...] Team Providers + +------+ + | Care Hot Mill Worker Name | Role | Phone | + +------+ + PCP | Unavailable | + +------+ + Encounter Details +--------+ + + + + | Date | Type | Department | Care Team | Description | +--------+ + + + + | 04/08/ | Hospital | [facility] | | | | 2003 - | Encounter | [facility] | | | | | | CENTER [address] | | | | 07/12/ | | [place] | | | | 2003 | | [address] | | | | | | [phone] | | | +--------+ + + + [...]
--- OUTSIDE RECORDS SUMMARY | ~2020-06-29 | XMS | Encounter Summary ---
Demographics + + + | Address | [address] | | | [place] [address] | + + + | Home Phone | | + + + | Preferred Language | Unknown | + + + | Marital Status | Single | + + + | Mormon Affiliation | CHR | + + + [...] Team Providers + +------+ + | Care Tail Board Man Name | Role | Phone | + [...] | | | Kidney | Lissette, | [facility] [address] | | | | | cancer, | [place] [address] | | | | | primary, | [facility] | | | | with | Ct | Health and | | | | | metastasis | [place], | Healing, | | | | | from kidney | [place] | Building [address], | | | | | to other | [address] | 3rd Floor | | | | | site, left | Phone: | [place], [place] | | | | | ([facility]LY [facility]) | [phone] | [address] | | | | | Procedures | Fax: | Phone: | | | | | CT CHEST, | [phone] | [phone] | | | | | ABDOMEN AND | | Fax: | | | | | PELVIS WO IV | | [phone] | | | | | CONTRAST | | | | | | | CT CHEST, | | | | | | | ABDOMEN AND | | | | | | | PELVIS W IV | | | | | | | CONTRAST PA | | | | | | | CAT SCAN OF | | | | | | | CHEST | | | | | | | CONTRAST PA | | | | | | | CT | | | | | | | ABDOMEN&PELV | | | | | | | IS | | | | | | | W/CONTRAST | | | | | | | PA CT | | | | | | | SCAN,THORAX, | | | | | | | W/O CONTRAST | | | | | | | PA CT ABD | | | | | | | & PELVIS W/O | | | | | | | CONTRAST | | | +--------+--------+ + + + + Encounter Details +--------+ + + + + | Date | Type | Department | Care Team | Description | +--------+ + + + + | 11/20/ | Ancillary | [facility] | Lissette Jones, | | | 2020 | Orders | Clinics at S | [place] [address] | | | | | [facility] [address] | | | | | [facility] | [place], [place] | | | | | Health and Healing, | [address] | | | | | [place] [address] | [phone] | | | | | [place], [place] | | | | | | [address] | | | | | | [phone] | | | +--------+ + + + [...] filedocumented as of this encounter Results CT CHEST, ABDOMEN AND PELVIS WO IV CONTRAST (11/21/2019 10:43 AM PDT) + + | Specimen | + + | | + + + + + | Narrative | Performed At | + + + | EXAM: CT of the chest, abdomen and pelvis without intravenous | [facility] | | contrast. HISTORY: metastatic kidney cancer COMPARISON: CT | RADIOLOGY VOICE | | 08/23/2019 TECHNIQUE: CT of the chest, abdomen and pelvis | RECOGNITION 2 | | without intravenous contrast. Coronal and sagittal reformats were | | | generated and created. FINDINGS: Lack of intravenous contrast | | | limits evaluation of the solid organs and vasculature. CHEST: The | | | heart and great vessels are unremarkable. 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 | | | Scattered pulmonary nodules are unchanged. For example right anterior | | | middle lobe nodule measures 4 mm, previously 5 mm (lung 85), right | | | lower lobe nodule measures 4 mm, previously 6 mm (lung 93). Areas of | | | scattered areas of bronchiectasis and radiation related | | | paramediastinal changes are unchanged. Bilateral lower lobe | | | groundglass opacities are unchanged since 08/23/2019. No pleural | | | fluid. LIVER: Liver appears diffusely infiltrated by tumor but | | | this is not well evaluated or measured on this noncontrast scan. | | | Overall, the appearance is similar compared to the prior though there | | | may be some progression of the right lobe of the liver posteriorly. | | | BILIARY: Layering sludge in the gallbladder. No biliary dilation. | | | PANCREAS: Unremarkable. SPLEEN: Unremarkable. ADRENALS: | | | Unremarkable. KIDNEYS/URETERS: Large infiltrative left renal mass | | | measures 11.8 x 9.7 cm (axial 128), previously 13.1 x 10.1 cm. Extent | | | of left renal vein thrombus cannot be determined in the setting of no | | | contrast. Multiple collaterals surrounding the left kidney are | | | redemonstrated. The right kidney is unremarkable. PELVIC | | | ORGANS/BLADDER: Unremarkable. GI TRACT: Unremarkable. PERITONEUM: | | | Trace pelvic free fluid. LYMPH NODES: Stable retroperitoneal | | | foster metastases. For example periaortic node measures 3.6 x 2.2 cm | | | (133), previously 3.6 x 2.4 cm. VESSELS: Tumor thrombus expands the | | | left renal vein up to the cava at least, similar to prior, but overall | | | difficult to assess without IV contrast. BONES AND SOFT TISSUES: | | | Postsurgical changes of vertebral body L2 pathologic fracture post | | | kyphoplasty. There is new compression deformity of L1. IMPRESSION: | | | 1. Since 08/23/19, stable large infiltrative left renal cell | | | carcinoma. Extent of renal vein thrombus cannot be determined without | | | IV contrast but appear similar. Extensive surrounding venous | | | collaterals present. 2. Stable retroperitoneal foster metastases. | | | Liver metastases are poorly visualized without contrast but are at | | | least stable to minimally increased.. 3. New vertebral body L1 | | | compression deformity. Cannot exclude underlying lesion, though none | | | definitively visualized. Further compression of L2 pathologic fracture | | | post vertebroplasty. 4. Stable pulmonary nodules. Stable | | | bilateral lower lobe groundglass opacities which may be inflammatory | | | as opposed to infectious given lack of change. I have personally | | | reviewed the images and, if necessary, edited the report. I agree with | | | the report as now presented. Final signature: Tom Mercer MD | | | 11/21/2019 1:12 PM Preliminary: Melissa Jasso MD Dictation | | | initiated: Melissa Jasso MD 11/21/2019 11:17 AM | | + + + + + | Procedure Note | + + | Service Account, Radiant Res In Interface - 11/21/2019 1:13 PM PDT EXAM: CT of the | | chest, abdomen and pelvis without intravenous contrast. HISTORY: metastatic kidney | | cancer COMPARISON: CT 08/23/2019 TECHNIQUE: CT of the chest, abdomen and pelvis without | | intravenous contrast. Coronal and sagittal reformats were generated and created. | | FINDINGS: Lack of intravenous contrast limits evaluation of the solid organs and | | vasculature. CHEST: The heart and great vessels are unremarkable. 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 Scattered pulmonary nodules | | are unchanged. For example right anterior middle lobe nodule measures 4 mm, previously 5 | | mm (lung 85), right lower lobe nodule measures 4 mm, previously 6 mm (lung 93). Areas | | of scattered areas of bronchiectasis and radiation related paramediastinal changes are | | unchanged. Bilateral lower lobe groundglass opacities are unchanged since 08/23/2019. No | | pleural fluid. LIVER: Liver appears diffusely infiltrated by tumor but this is not well | | evaluated or measured on this noncontrast scan. Overall, the appearance is similar | | compared to the prior though there may be some progression of the right lobe of the | | liver posteriorly.BILIARY: Layering sludge in the gallbladder. No biliary | | dilation.PANCREAS: Unremarkable. SPLEEN: Unremarkable.ADRENALS: | | Unremarkable.KIDNEYS/URETERS: Large infiltrative left renal mass measures 11.8 x 9.7 cm | | (axial 128), previously 13.1 x 10.1 cm. Extent of left renal vein thrombus cannot be | | determined in the setting of no contrast. Multiple collaterals surrounding the left | | kidney are redemonstrated. The right kidney is unremarkable.PELVIC ORGANS/BLADDER: | | Unremarkable. GI TRACT: Unremarkable.PERITONEUM: Trace pelvic free fluid. LYMPH NODES: | | Stable retroperitoneal foster metastases. For example periaortic node measures 3.6 x 2.2 | | cm (133), previously 3.6 x 2.4 cm.VESSELS: Tumor thrombus expands the left renal vein up | | to the cava at least, similar to prior, but overall difficult to assess without IV | | contrast. BONES AND SOFT TISSUES: Postsurgical changes of vertebral body L2 pathologic | | fracture post kyphoplasty. There is new compression deformity of L1. IMPRESSION: 1. | | Since 08/23/19, stable large infiltrative left renal cell carcinoma. Extent of renal | | vein thrombus cannot be determined without IV contrast but appear similar. Extensive | | surrounding venous collaterals present. 2. Stable retroperitoneal foster metastases. | | Liver metastases are poorly visualized without contrast but are at least stable to | | minimally increased.. 3. New vertebral body L1 compression deformity. Cannot exclude | | underlying lesion, though none definitively visualized. Further compression of L2 | | pathologic fracture post vertebroplasty. 4. Stable pulmonary nodules. Stable bilateral | | lower lobe groundglass opacities which may be inflammatory as opposed to infectious | | given lack of change. I have personally reviewed the images and, if necessary, edited | | the report. I agree with the report as now presented. Final signature: Tom Mercer | | 11/21/2019 1:12 PM Preliminary: Melissa Jasso MD Dictation initiated: Melissa | | MD Louisa 11/21/2019 11:17 AM | |1. Since 08/23/19, stable large infiltrative left renal cell carcinoma. Extent of renal vei n thrombus cannot be determined without IV contrast but appear similar. Extensive surroundin g venous collaterals present. | | | |2. Stable retroperitoneal foster metastases. Liver metastases are poorly visualized without contrast but are at least stable to minimally increased.. | | | |3. New vertebral body L1 compression deformity. Cannot exclude underlying lesion, though no ne definitively visualized. Further compression of L2 pathologic fracture post vertebroplast y. | | | |4. Stable pulmonary nodules. Stable bilateral lower lobe groundglass opacities which may be inflammatory as opposed to infectious given lack of change. | | | |I have personally reviewed the images and, if necessary, edited the report. I agree with e report as now presented. | | | |Final signature: Tom Mercer MD 11/21/2019 1:12 PM | |Preliminary: Melissa Jasso MD | |Dictation initiated: Melissa Jasso MD 11/21/2019 11:17 AM | + + + +---------+ + [...]
--- OUTSIDE RECORDS SUMMARY | ~2020-06-29 | XMS | Encounter Summary ---
Demographics + + + | Address | [address] | | | [place] [address] | + + + | Home Phone [...] + + | Author | [facility] | + + + | Organization | [facility] | + + + | Address | Unknown | + + + | Phone | Unavailable | + + + Support + + +---------+ + | Name | Relationship | Address | Phone | + + +---------+ + | William Talavera | ECON | Unknown | | + + +---------+ + Care Team Providers + +------+ + | Care Home Health Care Provider Name | Role | Phone | + +------+ + | Lissette Martinez PA-C | PCP | | + +------+ + Reason for Visit + +--------+ + | Reason | Onset | Comments | | | Date | | + +--------+ + | Prescription | 12/05/ | | | | 2020 | | + +--------+ + Encounter Details +--------+ + + + + | Date | Type | Department | Care Team | Description | +--------+ + + + + | 12/05/ | Telephone | [facility] | Lissette Jones, | Prescription | | 2020 | | Clinics at S | [place] [address] | | | | | [facility] [address] | | | | | [facility] | [place], [place] | | | | | Health and Healing, | [address] | | | | | [address] | [phone] | | | | | [place], [place] | | | | | | [address] | | | | | | [phone] | | | +--------+ + + + [...] this encounter Miscellaneous Notes Telephone Encounter - Kemi Rolle RN - 12/06/2019 4:35 PM PDTTC to Tila Patient is wanting refill of her scopolamine patches- I asked Tila to call her pharmacy as they will have all of the information needed to refi ll these. She agreed P DTTelephone Encounter - Tanya Márquez - 12/06/2019 2:05 PM PDTPt lvm at 11:56am on 12/06/19 Pt ask for a prescription of nausea patches the 4 pack. Pt asks for a call back. PAS didn't see rx on medication list documented in this encounter Plan of Treatment Not on filedocumented as of this encounter Visit Diagnoses Not on filedocumented in this encounter"
--- OUTSIDE RECORDS SUMMARY | ~2020-06-29 | XMS | Encounter Summary ---
Demographics + + + | Address | [address] | | | [place] [address] | + + + | Home Phone [...] Team Providers + +------+ + | Care Dairy Products Maker Name | Role | Phone | + [...] | neoplasm of | RADHA Curran | [address] | | | | | unspecified | [place] | [address] | | | | | kidney, | Family | [place], | | | | | except renal | Medicine | [place] [address] | | | | | pelvis | [address] | Phone: | | | | | Procedures | [address] | [phone] | | | | | [place] NEW | [place], | Fax: | | | | | PATIENT | [place] [address] | [phone] | | | | | [place] | Phone: | | | | | | EST PATIENT | [phone] | | | | | | LEVEL V | Fax: | | | | | | | [phone] | | + +---------+ + + + + Encounter Details +--------+ + + + + | Date | Type | Department | Care Team | Description | +--------+ + + + + | 06/18/ | Video/TeleH | [facility] | Melania Garcia, | Left without seen | | 2020 | ealth-Sched | Clinics at S | PA-C [address] | | | | uled | [facility] [address] | | | | | [facility] | [place], [place] | | | | | Health and Healing, | [address] | | | | | [address] | [phone] | | | | | [facility] [place] | | | | | | [address] | | | | | | [phone] | | | +--------+ + + + [...]
--- OUTSIDE RECORDS SUMMARY | ~2020-06-29 | XMS | Encounter Summary ---
Demographics + + + | Address | [address] | | | [place] [address] | + + + | Home Phone | | + + + | Preferred Language | Unknown | + + + | Marital Status | Single | + + + | Episcopalian Affiliation | CHR | + + + [...] Providers + +------+ + | Care Radio Program Checker Name | Role | Phone | [...] + + | 08/24/ | Hospital | [facility] | [address] | | | 2019 | Encounter | Clinics at S | [place], [place] | | | | | [facility] [address] | [address] | | | | | [facility] | | | | | | Health and Healing, | | | | | | [address] | | | | | | [place], [place] | | | | | | [address] | | | | | | [phone] | | | +--------+ + + + [...] and left in place. Pt Alert & [place] ed x3, No acute distress and Mood [...]
--- OUTSIDE RECORDS SUMMARY | ~2020-06-29 | XMS | Encounter Summary ---
Demographics + + + | Address | [address] | | | [place] [address] | + + + | Home Phone | | + + + | Preferred Language | Unknown | + + + | Marital Status | Single | + + + | Baptism Affiliation | CHR | + + + [...] Team Providers + +------+ + | Care Research Physicist Name | Role | Phone | + +------+ + | Lissette Martinez PA-C | PCP | | + +------+ + Encounter Details +--------+ + + + + | Date | Type | Department | Care Team | Description | +--------+ + + + + | 10/07/ | [facility] | [facility] | Lissette Jones, | | | 2019 | | Clinics at S | [place] [address] | | | | | [facility] [address] | | | | | [facility] | [place], [place] | | | | | Health and Healing, | [address] | | | | | [address] | [phone] | | | | | [place], [place] | | | | | | [address] | | | | | | [phone] | | | +--------+ + + + [...]
--- OUTSIDE RECORDS SUMMARY | ~2020-06-29 | XMS | Encounter Summary ---
Demographics + + + | Address | [address] | | | [place] [address] | + + + | Home Phone [...] Team Providers + +------+ + | Care Plant Maintenance Engineer Name | Role | Phone | + +------+ + PCP | Unavailable | + +------+ + Encounter Details +--------+ + + + + | Date | Type | Department | Care Team | Description | +--------+ + + + + | 05/05/ | Results | | Other, Faculty | | | 2001 | Only | | [phone] | | +--------+ + + + + [...] | + +--------+ + + + | HEMATOPATHOLOGY | Routin | 05/05/2002 | | Results for this | | | e | | | procedure are in the | | | | | | results section. | + +--------+ + + + documented in this encounter Results HEMATOPATHOLOGY (05/05/2002) + + + + + + | Component | Value | Ref Range | Performed | Pathologist | | | | | At | Signature | + + + + + + | HEMATOPATHO | SOURCE OF SPECIMEN:A | | [facility] | | | LOGY | Right Jugular Lymph Node | | DEPARTMENT | | | | Clinical History:The | | OF | | | | patient is a 36 year old | | PATHOLOGY | | | | female with cervical | | | | | | and | | | | | | mediastinallymphadenopat | | | | | | hy. Final Pathologic | | | | | | Diagnosis:Right jugular | | | | | | lymph node ([id number]):- | | | | | | Classic Hodgkin's | | | | | | disease, nodular | | | | | | sclerosis type Case | | | | | | reviewed by:Petr Davila | | | | | | Lily Dhaliwal / | | | | | | HematopathologistT:05/11 | | | | | | :kcSlide to be | | | | | | returned under separate | | | | | | cover I have reviewed | | | | | | all diagnostic slides | | | | | | and other materials and | | | | | | have editedall portions | | | | | | of this report as part | | | | | | of my pathologic | | | | | | assessment and | | | | | | finaldiagnosis. | | | | | | | | | | | | | | | | | | | | | | | | Gross | | | | | | Description:Received | | | | | | from Dr. Demarcus Gray, | | | | | | [facility] | | | | | | [facility], [place] | | | | | | is a portion of fresh | | | | | | tissue for flow | | | | | | cytometric analysis, | | | | | | oneparaffin block, and | | | | | | one hematoxylin and | | | | | | eosin stained slide | | | | | | [id number] for | | | | | | pathologic evaluation. | | | | | | Microscopic | | | | | | Description:The section | | | | | | reveals a nodular | | | | | | lymphoid proliferation | | | | | | surrounded | | | | | | bywell-developed | | | | | | fibrotic bands. | | | | | | Numerous classic | | | | | | Joseluis-Debbie cells | | | | | | andtheir variants are | | | | | | identified in the | | | | | | background of small | | | | | | lymphocytes andsmall | | | | | | numbers of eosinophils | | | | | | and plasma cells. | | | | | | Immunohistochemical | | | | | | Analysis: | | | | | | Immunohistochemical | | | | | | stains are performedwith | | | | | | the paraffin tissue | | | | | | with antibodies against | | | | | | CD45, CD3, CD20, CD15, | | | | | | andCD30. | | | | | | Joseluis-Debbie cells | | | | | | and their variants are | | | | | | positive for CD15, | | | | | | CD30,and are negative | | | | | | for CD45, CD3, and CD20. | | | | | | The findings are | | | | | | consistent withclassic | | | | | | Hodgkin's disease. | | | | | | Immunologic | | | | | | Analysis:Flow cytometric | | | | | | analysis is performed | | | | | | with antibody | | | | | | combinations | | | | | | including:CD56/CD4/CD3/C | | | | | | D8, CD10/CD23/CD19/CD5, | | | | | | surface | | | | | | kappa/surfacelambda/CD20 | | | | | | /CD22. T-cells are | | | | | | detect at 44% with | | | | | | CD4:CD8 ratio of | | | | | | 5:1.B-cells are detected | | | | | | about 7%. No evidence | | | | | | of monoclonal surface | | | | | | lightchain expression. | | | | | | (Analyte specific | | | | | | reagents are used in | | | | | | many laboratory tests | | | | | | necessary forstandard | | | | | | medical care and | | | | | | generally do not require | | | | | | FDA approval. This | | | | | | testwas developed and | | | | | | its performance | | | | | | characteristics | | | | | | determined by | | | | | | [facility]. It | | | | | | has not been cleared or | | | | | | approved by the [place] Food | | | | | | and | | | | | | DrugAdministration.)Renmeaghan | | | | | | arelis Diagnostician: | | | | | | Petr Dhaliwal | | | | | | LilyPathologistJohni | | | | | | mert Signed | | | | | | 05/12/2002Comment: | | | | | | SOURCE OF SPECIMEN: | | | | | | Right Jugular Lymph Node | | | | + + + + + + + + | Specimen | + + | | + + + + + | Narrative | Performed At | + + + | Ordered by Isaac Mancera | [facility] | | | DEPARTMENT OF | | | PATHOLOGY | + + + + + + + + | Performing | Address | City/State/Zipcode | Phone Number | | Organization | | | | + + + + + | [facility] DEPARTMENT OF | [address] | [place] [address] | | | PATHOLOGY | [address] | | | + + + + + | [facility] DEPARTMENT OF | [address] | [place] [address] | | | PATHOLOGY | [address] | | | + + + + + documented in this encounter Visit Diagnoses Not on filedocumented in this encounter"
--- OUTSIDE RECORDS SUMMARY | ~2020-06-29 | XMS | Encounter Summary ---
Demographics + + + | Address | [address] | | | [place] [address] | + + + | Home Phone [...] Author + + + | Author | [facility] | | | and [place] | + + + | Organization | [facility] [...] Team Providers + +------+ + | Care Computer Information Systems Professor Name | Role | Phone | + +------+ + PCP | Unavailable | + +------+ + Encounter Details +--------+ + + + + | Date | Type | Department | Care Team | Description | +--------+ + + + + | 06/02/ | Hospital | [facility] | | | | 2002 - | Encounter | [facility] | | | | | | CENTER [address] | | | | 09/02/ | | [place] | | | | 2002 | | [address] | | | | | | [phone] | | | +--------+ + + + [...]
--- OUTSIDE RECORDS SUMMARY | ~2020-06-29 | XMS | Encounter Summary ---
Demographics + + + | Address | [address] | | | [place] [address] | + + + | Home Phone | | + + + | Preferred Language | Unknown | + + + | Marital Status | Single | + + + | Hinduism Affiliation | CHR | + + + [...] Team Providers + +------+ + | Care Athlete Manager Name | Role | Phone | [...] | | | | cancer, | [place] [address] [address] | [address] | | | | | primary, | [address] | [address] | | | | | with | Ct | [place], [place] | | | | | metastasis | [place], | [address] | | | | | from kidney | [place] | Phone: | | | | | to other | [address] | [phone] | | | | | site, left | Phone: | Fax: | | | | | (HCC) | [phone] | [phone] | | | | | Procedures | Fax: | | | | | | CONSULT TO | [phone] | | | | | | ADULT [...] 12/22/ | Telephone-S | Hematology/Medical | [address] | Medical nutrition | | 2020 | cheduled | Oncology at [facility] | [address] | therapy | | | | [address] | [place], [place] | | | | | [facility] | [address] | | | | | and Healing, | [phone] | | | | | [address] | | | | | | [place], [place] | | | | | | [address] | | | | | | [phone] | | | +--------+ + + + [...] mouth rinse FOOD INTAKE: less than usual [place] milk is ok. Lactose free milk (fairlife [...] cancer nu trition guidelines. ESTIMATED NUTRITION NEEDS: 9635-8248 (25-30 kcal/kg); 60-90 gm protein (1-1.5 gm/kg); 1788 mL fluid (30 mL/kg) NUTRITION INTERVENTION and RECOMMENDATIONS EDUCATION PROVIDED: Nutrition suggestions 1) Reviewed patient specific nutrition goals Provided some nutrition intake suggestions; continue frequent eating. - included protein intake goal and hydration - provided information regarding taste changes. Sent via [employer]form. PLAN: PATIENT GOALS: 1. Weight stability 2. [...]
--- OUTSIDE RECORDS SUMMARY | ~2020-06-29 | XMS | Encounter Summary ---
Demographics + + + | Address | [address] | | | [place] [address] | + + + | Home Phone | | + + + | Preferred Language | Unknown | + + + | Marital Status | | + + + | Taoism Affiliation | 1013 | + + + | Race | or Other | + + + | Ethnic Group | Not or | + + + Author + + + | Author | [facility] | | | and Shahram | + + + | Organization | [facility] | | | and Marcana [...] Team Providers + +------+ + | Care Livestock Auctioneer Name | Role | Phone | + [...] | | | [address] | [place] [address] | | | | | [place] [address] | | | | | | [phone] | | | +--------+ + + + [...] | + +--------+ + + + | IR KYPHOPLASTY | Routin | 08/29/2019 | | Results for this | | LUMBAR | e | 12:00 AM | | procedure are in the | | | | PST | | results section. | + +--------+ + + + documented in this encounter Results IR Kyphoplasty Lumbar (08/29/2019 12:00 AM PST) + + | Specimen [...]
--- OUTSIDE RECORDS SUMMARY | ~2020-06-29 | XMS | Encounter Summary ---
Demographics + + + | Address | [address] | | | [place] [address] | + + + | Home Phone | | + + + | Preferred Language | Unknown | + + + | Marital Status | | + + + | Faith Affiliation | 1013 | + + + | Race | or Other | + + + | Ethnic Group | Not or | + + + Author + + + | Author | [facility] | | | and Shahram | + + + | Organization | [facility] | | | and Marcana [...] Team Providers + +------+ + | Care Vice Provost Name | Role | Phone | + [...] | Secondary | Aileen M, | [place] | | | | | cancer of | [place] [address] | [place], | | | | | bone (HCC) | [address] | [place] [address] | | | | | Metastatic | [place], | Phone: | | | | | renal cell | [place] [id number] | [phone] | | | | | carcinoma, | Phone: | Fax: | | | | | unspecified | [phone] | [phone] | | | | | laterality | Fax: | | | | | | (HCC) | [phone] | | | | | | Procedures [...] | Secondary | Aileen Cuello, | [place] | | | | | cancer of | [place] [address] | [place], | | | | | bone (HCC) | [address] | [place] [address] | | | | | Metastatic | [place], | Phone: | | | | | renal cell | [place] [id number] | [phone] | | | | | carcinoma, | Phone: | Fax: | | | | | unspecified | [phone] | [phone] | | | | | laterality | Fax: | | | | | | (HCC) | [phone] | | | | | | Procedures [...] + + | 12/12/ | Hospital | [facility] | Aileen Denson | Secondary cancer of | | 2020 | Encounter | [facility] [address] | MMD [address] | bone (HCC); | | | | [place], | [place], [place] | 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
--- OUTSIDE RECORDS SUMMARY | ~2020-06-29 | XMS | Encounter Summary ---
Demographics + + + | Address | [address] | | | [place] [address] | + + + | Home Phone [...] Team Providers + +------+ + | Care Pattern Puncher Name | Role | Phone | + +------+ + | Lissette Martinez PA-C | PCP | | + +------+ + Encounter Details +--------+ + + + + | Date | Type | Department | Care Team | Description | +--------+ + + + + | 11/01/ | Pharmacy | Pharmacy @ [facility] | | | | 2019 | Visit | [address] | | | | | | [address] Mailcode: | | | | | | [facility] | | | | | | and Healing, | | | | | | [address] | | | | | | [place], [place] | | | | | | [address] | | | +--------+ + + + [...]
--- OUTSIDE RECORDS SUMMARY | ~2020-06-29 | XMS | Encounter Summary ---
Demographics + + + | Address | [address] | | | [place] [address] | + + + | Home Phone [...] Author + + + | Author | [facility] | | | and Shahram | + + + | Organization | [facility] | | | and Marcana | [...] Providers + +------+ + | Care Client Retention Specialist Name | Role | Phone | + +------+ + PCP | Unavailable | + +------+ + Encounter Details +--------+ + + + + | Date | Type | Department | Care Team | Description | +--------+ + + + + | 08/29/ | Hospital | [facility] | | | | 2001 - | Encounter | MED CTR CANCER | | | | | | CENTER [address] | | | | 12/26/ | | [place] | | | | 2002 | | [address] | | | | | | [phone] | | | +--------+ + + + [...]
--- OUTSIDE RECORDS SUMMARY | ~2020-06-29 | XMS | Encounter Summary ---
Demographics + + + | Address | [address] | | | [place] [address] | + + + | Home Phone | | + + + | Preferred Language | Unknown | + + + | Marital Status | Single | + + + | Pentecostalism Affiliation | CHR | + + + [...] Team Providers + +------+ + | Care Land Clearer Name | Role | Phone | + [...] | | Clinics at S | [place] [address] | | | | | [address] | | | | | [facility] | [place], [place] | | | | | Health and Healing, | [address] | | | | | [place] [address] | [phone] | | | | | [place], [place] | | | | | | [address] | | | | | | [phone] | | | +--------+--------+ + + + [...] and Time Department Ordering/Authorizing 12/14/2019 12:54 PM [facility] Lissette Jones MD Outpatient Medication Detail Disp Refills oxyCODONE (immediate release) 5 mg oral tablet 60 tablet 0 Sig: Take 1 tablet by mouth every four hours as needed for breakthrough pain. Sent to pharmacy as: oxyCODONE 5 mg tablet (ROXICODONE) Class: eRx Earliest Fill Date: 12/14/2019 Route: oral Order: [id number] E-Prescribing Status: Receipt confirmed by pharmacy (12/14/2019 12:54 PM PDT) Controlled Substance Requested: Routing to RN Coordinator for review prior to sending to SOLEDAD Vásquez documented in this encounter Plan of Treatment Not on filedocumented as of this encounter Visit Diagnoses Not on filedocumented in this encounter"
--- OUTSIDE RECORDS SUMMARY | ~2020-06-29 | XMS | Encounter Summary ---
Demographics + + + | Address | [address] | | | [place] [address] | + + + | Home Phone [...] Team Providers + +------+ + | Care Canvas Cutter Hand Name | Role | Phone | + +------+ + | Lissette Martinez PA-C | PCP | | + +------+ + Reason for Visit AUTH/CERT +--------+--------+ + [...] + + + + | 11/20/ | Clinical | Laboratory at [facility] | | | | 2019 | Support | [address] | | | | | Staff | [facility] | | | | | | and Healing, | | | | | | [address] | | | | | | [place], [place] | | | | | | [address] | | | | | | [phone] | | | +--------+ + + + [...] documented as of this encounter Progress Notes Leah Iglesias RN - 11/21/2019 8:20 AM PDTCBC and CMP were drawn via 24g PIV right AC. Pt tolerated without incident. Pt discharged to provider visit. documented in this encounter Plan of Treatment Not on filedocumented as of this encounter Procedures + +--------+ + + + | Procedure Name | Priori | Date/Time | Associated Diagnosis | Comments | | | ty | | | | + +--------+ + + + | FREE T4 - OLP | Routin | 11/21/2019 | Renal cell | Results for this | | | e | 8:50 AM | carcinoma of left | procedure are in the | | | | PDT | kidney (HCC) | results section. | + +--------+ + + + | TSH - OLP | Routin | 11/21/2019 | Renal cell | Results for this | | | e | 8:50 AM | carcinoma of left | procedure are in the | | | | PDT | kidney (HCC) | results section. | + +--------+ + + + | CORTISOL, SERUM - | Routin | 11/21/2019 | Renal cell | Results for this | | OLP | e | 8:50 AM | carcinoma of left | procedure are in the | | | | PDT | kidney (HCC) | results section. | + +--------+ + + + | CBC AND AUTO DIFF - | Routin | 11/21/2019 | Renal cell | Results for this | | [facility] | e | 8:50 AM | carcinoma of left | procedure are in the | | | | PDT | kidney (HCC) | results section. | + +--------+ + + + | COMPLETE METABOLIC | Routin | 11/21/2019 | Renal cell | Results for this | | PANEL - OLP | e | 8:50 AM | carcinoma of left | procedure are in the | | | | PDT | kidney ([facility]) | results section. | + +--------+ + + + | CBC WITH AUTO DIFF - | Routin | 11/21/2019 | Renal cell | Results for this | | OLP | e | 8:50 AM | carcinoma of left | procedure are in the | | | | PDT | kidney (HCC) | results section. | + +--------+ + + + | [facility] - COMPLETE | Routin | 11/21/2019 | Renal cell | Results for this | | METABOLIC SET | e | 8:50 AM | carcinoma of left | procedure are in the | | | | PDT | kidney (HCC) | results section. | + +--------+ + + + | FREE T4 | Routin | 11/21/2019 | Renal cell | Results for this | | | e | 8:50 AM | carcinoma of left | procedure are in the | | | | PDT | kidney (HCC) | results section. | + +--------+ + + + | TSH | Routin | 11/21/2019 | Renal cell | Results for this | | | e | 8:50 AM | carcinoma of left | procedure are in the | | | | PDT | kidney (HCC) | results section. | + +--------+ + + + | CORTISOL, SERUM | Routin | 11/21/2019 | Renal cell | Results for this | | | e | 8:50 AM | carcinoma of left | procedure are in the | | | | PDT | kidney (HCC) | results section. | + +--------+ + + + documented in this encounter Results CORTISOL, SERUM (11/21/2019 8:50 AM PDT) + +-------+ + + + | Component | Value | Ref Range | Performed | Pathologist | | | | | At | Signature | + +-------+ + + + | CORTISOL, | 37.4 | ug/dL | [facility] | | | [...] | + + + + + | [facility] | [address] | [place] [address] | | | [address] | [address] | | | + + + + + FREE T4 (11/21/2019 8:50 AM PDT) + +---------+ + + + | Component | Value | Ref Range | Performed | Pathologist | | | | | At | Signature | + +---------+ + + + | FREE T4 | 4.2 (H) | 0.6 - 1.2 ng/dL | [...] [facility] | [address] | [place] [address] | | | SERVICES, CORE | [address] | | | + + + + + TSH (11/21/2019 8:50 AM PDT) + + + + + + | Component | Value | Ref Range | Performed | Pathologist | | | | | At | Signature | + + + + + + | TSH | 6.77 (H) | 0.50 - 5.07 | [facility] [...] [facility] | [address] | [place] [address] | | | SERVICES, CORE | [address] | | | + + + + + [facility] - COMPLETE METABOLIC SET (11/21/2019 8:50 AM PDT) + + + + + [...] SERVICES, | | | | | | [facility] | | | | | | HEALTH + | | | | | | HEALING | | + + + + + + | BUN, PLASMA | 87 (H) | 6 - 20 mg/dL | [facility] | | | (LAB) | | | LABORATORY | | | | | | SERVICES, | | | | | | [facility] | [facility] + | | | | | | HEALING | | + + + + + + | CREATININE | 3.20 (H) | 0.60 - 1.10 | [facility] | | | PLASMA | | mg/dL | LABORATORY | | | (LAB) | | | SERVICES, | | | | | | [facility] | | | | | [facility] + | | | | | | HEALING | | + + + + + + | EGFR | 18 (L) | >60 mL/min | [facility] | | | - | | | LABORATORY | | | [place] | | | SERVICES, | | | [...] + + + + | CHLORIDE, | 103 | 97 - 108 mmol/L | [facility] [...] + + + + | CALCIUM, | 9.4 | 8.6 - 10.2 | [facility] | | | PLASMA | | mg/dL | LABORATORY | | | (LAB) | | | SERVICES, | | | | | | [facility] | | | | | | [facility] + | | | | | | HEALING | | + + + + + + | CALCIUM(ALB | 11.1 (H) | 8.6 - 10.2 | [facility] [...] + + + + | TOTAL | 6.0 (L) | 6.4 - 8.2 g/dL | [facility] | | | PROTEIN, | | | LABORATORY | | | PLASMA | | | SERVICES, | | | (LAB) | | | [facility] | | | | | | HEALTH + | | | | | | HEALING | | + + + + + + | ALBUMIN, | 1.9 (L) | 3.5 - 4.7 g/dL | [facility] | | | PLASMA | | | LABORATORY | | | (LAB) | | | SERVICES, | | | | | | [facility] | | | | | | [facility] + | | | | | | HEALING | | + + + + + + | ALK PHOS | 107 (H) | 42 - 98 U/L | [facility] | | | | | | LABORATORY | | | | | | SERVICES, | | | | | | [facility] | | | | | | HE[facility] + | | | | | | HEALING | | + + + + + + | AST(SGOT) | 54 (H) | <=41 U/L | [facility] | | | | | | LABORATORY | | | | | | SERVICES, | | | | | | [facility] | | | | | | [facility] + | | | | | | HEALING | | + + + + + + | ALT (SGPT) | 23 | <=60 U/L | [facility] | | [...] + + + + | ANION | 17 (H) | 4 - 11 mmol/L | [...] + + + + | GLOBULIN | 4.1 (H) | 2.3 - 3.5 gm/dL | [...] MDRD equation recommended by the National | [facility] | | Kidney Disease Education [...] | + + + + + | [facility] | [address] | [place] [address] | | | [facility] | | | | | HEALTH + HEALING | | | | + + + + + CBC AND AUTO DIFF - [facility] (11/21/2019 8:50 AM PDT) + + + + + + | Component | Value | Ref Range | Performed | Pathologist | | | | | At | Signature | + + + + + + | WHITE CELL | 5.64 | 3.50 - 10.80 | [facility] | | | COUNT | | K/cu mm | LABORATORY | | | | | | SERVICES, | | | | | | [facility] | | | | | | HEALTH + | | | | | | HEALING | | + + + + + + | RED CELL | 4.43 | 4.00 - 5.20 | [facility] | | | COUNT | | M/cu mm | LABORATORY | | | | | | SERVICES, | | | | | | [facility] | | | | | | [facility] + | | | | | | HEALING | | + + + + + + | HEMOGLOBIN | 12.6 | 12.0 - 16.0 | [facility] | | | | | g/dL | LABORATORY | | | | | | SERVICES, | | | | | | [facility] | | | | | | [facility] + | | | | | | HEALING | | + + + + + + | HEMATOCRIT | 39.4 | 36.0 - 46.0 % | [facility] | | | | | | LABORATORY | | | | | | SERVICES, | | | | | | [facility] | | | | | | [facility] + | | | | | | HEALING | | + + + + + + | MCV | 88.9 | 80.0 - 100.0 fL | [facility] | | | | | | LABORATORY | | | | | | SERVICES, | | | | | | [facility] | | | | | | [facility] + | | | | | | HEALING | | + + + + + + | MCHC | 32.0 | 32.0 - 36.0 | [facility] | [...] + + + + | PLATELET | 221 | 150 - 400 K/cu | [facility] | | | COUNT | | mm | LABORATORY | | | | | | SERVICES, | | | | | | [facility] | | | | | | [facility] + | | | | | | HEALING | | + + + + + + | MPV | 8.3 (L) | 9.7 - 12.3 fL | [...] + + + + | NEUTROPHIL | 71.8 (H) | 50.0 - 70.0 % | [facility] | | | % | | | LABORATORY | | | | | | SERVICES, | | | | | | [facility] | | | | | | [facility] + | | | | | | HEALING | | + + + + + + | LYMPHOCYTE | 13.5 (L) | 18.0 - 42.0 % | [facility] | | | % | | | LABORATORY | | | | | | SERVICES, | | | | | | [facility] | | | | | | [facility] + | | | | | | HEALING | | + + + + + + | MONOCYTE % | 8.2 | 3.5 - 9.0 % | [facility] | | | | | | LABORATORY | | | | | | SERVICES, | | | | | | [facility] | | | | | [facility] + | | | | | | HEALING | | + + + + + + | EOS % | 4.6 (H) | 1.0 - 3.0 % | [facility] | | | | | | LABORATORY | | | | | | SERVICES, | | | | | | [facility] | | | | | | [facility] + | | | | | | HEALING | | + + + + + + | BASO % | 1.4 | 0.0 - 2.0 % | [facility] [...] + + + + | NEUTROPHIL | 4.05 | 1.80 - 7.70 | [facility] | | | # | | K/cu mm | LABORATORY | | | | | | SERVICES, | | | | | | [facility] | | | | | | HE[facility] + | | | | | | HEALING | | + + + + + + | NEUTROPHIL | 4.05Comment: Preliminary | 1.80 - 7.70 | [facility] [...] + + + + | LYMPHOCYTE | 0.76 (L) | 1.00 - 4.80 | [facility] | | | # | | K/cu mm | LABORATORY | | | | | | SERVICES, | | | | | | [facility] | | | | | | HE[facility] + | | | | | | HEALING | | + + + + + + | MONOCYTE # | 0.46 | 0.10 - 0.90 | [facility] | | | | | K/cu mm | LABORATORY | | | | | | SERVICES, | | | | | | [facility] | | | | | | [facility] + | | | | | | HEALING | | + + + + + + | EOS # | 0.26 | 0.00 - 0.50 | [facility] | | | | | K/cu mm | LABORATORY | | | | | | SERVICES, | | | | | | [facility] | | | | | | HE[facility] + | | | | | | HEALING | | + + + + + + | BASO # | 0.08 | 0.00 - 0.10 | [facility] | | | | | K/cu mm | LABORATORY | | | | | | SERVICES, | | | | | | [facility] | | | | | | HEALTH + | | | | | | HEALING | | + + + + + + | IG# | 0.03 | 0.00 - 0.10 | [...] + + + | [facility] | [address] | [place] [address] | | | [facility] | | | | | HEALTH + HEALING | | | | + + + + + documented in this encounter Visit Diagnoses + + | Diagnosis | + + | 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
--- OUTSIDE RECORDS SUMMARY | ~2020-06-29 | XMS | Encounter Summary ---
Demographics + + + | Address | [address] | | | [place] [address] | + + + | Home Phone [...] Team Providers + +------+ + | Care Broommaking Supervisor Name | Role | Phone | + +------+ + | Lissette Martinez PA-C | PCP | | + +------+ + Encounter Details +--------+ + + + + | Date | Type | Department | Care Team | Description | +--------+ + + + + | 06/29/ | Telephone | [facility] | Yasemin Álvarez, | | | 2020 | | Clinics at S | FORENSIC ACCOUNTANT [address] | | | | | [address] | [address] [place], | | | | | [address] [facility] | [place] [address] | | | | | Health and Healing, | [phone] | | | | | [address] | | | | | | [place], [place] | | | | | | [address] | | | | | | [phone] | | | +--------+ + + + [...] this encounter Miscellaneous Notes Telephone Encounter - Jana Ochoa RN - 2020 2:25 PM PDTCall back to [facility] per request from Bharti Álvarez. Report received from research coordinator that patient is expe riencing yellowing of the eyes, lack of ability to eat and rapid deterioration. If this is a ccurate Bharti Martinez would like patient to be evaluated in the ED. No answer. VM left with clini c number and request to call back as well as recommendations for ED eval if this report is a ccurate. Call to patient directly. Patient states her eyes are yellow and she noticed this about a w [place] ago but did not discuss with Dr Jones at her last visit. No recent labs. Patient speech w as very slow and she was having difficulty finding words. Patient states she feels better th an yesterday but worse than when she saw Dr Jones for VV on 06/26. When patient was asked in which way she felt worse she stated "difficulty concentrating" long pause "difficulty concen trating" long pause "difficulty concentrating. Patient also reports fall yesterday but was unable to answer if she hit her head or experie nced any injury. This RN asked 3 times about injury and patient was unable to answer. Tabby trejo states the cause of her fall was "slipping." Discussed with patient that based on discussion with provider Bharti Álvarez patient should be evaluated in the ED NANCI. Patient agreed and will go to the [facility] ED in [place] Called report to Gabriela DOUGLAS at [facility] ED documented in this encounter Plan of Treatment Not on filedocumented as of this encounter Visit Diagnoses Not on filedocumented in this encounter
--- OUTSIDE RECORDS SUMMARY | ~2020-06-29 | XMS | Encounter Summary ---
Demographics + + + | Address | [address] | | | [place] [address] | + + + | Home Phone [...] Author + + + | Author | [facility] | + + + | Organization | [facility] | + + + | Address | Unknown | + + + | Phone | Unavailable | + + + Support + + +---------+ + | Name | Relationship | Address | Phone | + + +---------+ + | William Talavera | ECON | Unknown | | + + +---------+ + Care Team Providers + +------+ + | Care Senior Net Web Developer Name | Role | Phone | + +------+ + | Lissette Martinez PA-C | PCP | | + +------+ + Encounter Details +--------+ + + + + | Date | Type | Department | Care Team | Description | +--------+ + + + + | 08/31/ | Pharmacy | Outpatient Retail | | | | 2019 | Visit | [facility] | | | | | | [address] | | | | | | [place], [place] | | | | | | [address] | | | | | | [phone] | | | +--------+ + + + [...]
--- OUTSIDE RECORDS SUMMARY | ~2020-06-29 | XMS | Encounter Summary ---
Demographics + + + | Address | [address] | | | [place] [address] | + + + | Home Phone [...] Team Providers + +------+ + | Care District Court Reporter Name | Role | Phone | + +------+ + | Lissette Martinez PA-C | PCP | | + +------+ + Encounter Details +--------+ + + + + | Date | Type | Department | Care Team | Description | +--------+ + + + + | 06/11/ | MyChart | [facility] | Lissette Jones, | RE: Tessa Altman | | 2020 | Encounter | Clinics at S | [place] [address] | | | | | [address] | | | | | [facility] | [place], [place] | | | | | Health and Healing, | [address] | | | | | [facility] [address] | [phone] | | | | | [facility] [place] | | | | | | [address] | | | | | | [phone] | | | +--------+ + + + [...] this encounter Miscellaneous Notes Telephone Encounter - Tanya Márquez - 06/14/2020 4:36 PM PDTPt wants to know if labs are ne eded prior to VV on Thursday. PAS advised per RNC no labs, ARLENE will order If needed. FYI Docum entation elephone Encounter - Lito Keyes - 06/14/2020 4:33 PM PDTCall to patient, agreed to scheduled [facility] on 06/18 @ 11:20 am. FYI. elephone Encounter - Ashlee Holley RN - 06/13/2020 7:38 AM PDTRecords received and fo rwarded to provider under other encounter. Reviewed and noted she was discharged on Decadron 2 mg daily "for a couple of weeks" #14 tabs, and Levetiracetam 500 mg BID #60 tabs ref 2. Encounter routed to Dr. Jones and Melania for input. documented in this encounter Plan of Treatment Not on filedocumented as of this encounter Visit Diagnoses Not on filedocumented in this encounter
--- OUTSIDE RECORDS SUMMARY | ~2020-06-29 | XMS | Encounter Summary ---
Demographics + + + | Address | [address] | | | [place] [address] | + + + | Home Phone | | + + + | Preferred Language | Unknown | + + + | Marital Status | | + + + | Yazidi Affiliation | 1013 | + + + | Race | or Other | + + + | Ethnic Group | Not or | + + + Author + + + | Author | [facility] | | | and Shahram | + + + | Organization | [facility] | | | and Marcana | [...] Team Providers + +------+ + | Care Data Scientist Name | Role | Phone | + +------+ + PCP | Unavailable | + +------+ + Encounter Details +--------+ + + + + | Date | Type | Department | Care Team | Description | +--------+ + + + + | 05/07/ | Hospital | [facility] | | | | 2006 | Encounter | MED CTR CANCER | | | | | | CENTER [address] | | | | | | [place] | | | | | | [address] | | | | | | [phone] | | | +--------+ + + + [...]
--- OUTSIDE RECORDS SUMMARY | ~2020-06-29 | XMS | Encounter Summary ---
Demographics + + + | Address | [address] | | | [place] [address] | + + + | Home Phone [...] + + + | Author | [facility] | + + + | Organization | [facility] | + + + | Address | Unknown | + + + | Phone | Unavailable | + + + Support + + +---------+ + | Name | Relationship | Address | Phone | + + +---------+ + | William Talavera | ECON | Unknown | | + + +---------+ + Care Team Providers + +------+ + | Care Drill Press Operator Numerical Control Name | Role | Phone | + [...] +--------+--------+ + + + + Encounter Details +--------+---------+ + + + | Date | Type | Department | Care Team | Description | +--------+---------+ + + + | 11/20/ | Office | [facility] | KarenLissette, | Renal cell | | 2020 | Visit | Clinics at S | [place] [address] | carcinoma, | | | | [place] [address] | unspecified | | | | [facility] for | [place], [place] | laterality (HCC) | | | | Health and Healing, | [address] | (Primary Dx) | | | | [place] [address] | [phone] | | | | | [place], [place] | | | | | | [address] | | | | | | [phone] | | | +--------+---------+ + + + [...] + + + | Blood Pressure | 64/30 | 11/21/2019 9:15 AM | | | | | PDT | | + + + + + | Pulse | 38 | 11/21/2019 9:15 AM | | | | | PDT | | + + + + + | Temperature | 36.6 C (97.8 F) | 11/21/2019 9:15 AM | | | | | PDT | | + + + + + | Respiratory Rate | 12 | 11/21/2019 9:15 AM | | | | | PDT | | + + + + + | Oxygen Saturation | 99% | 11/21/2019 9:15 AM | | | | | PDT | | + + + + + | Inhaled Oxygen | - | - | | | Concentration | | | | + + + + + | Weight | 80.9 kg (178 lb 6.4 | 11/21/2019 9:15 AM | | | | oz) | PDT | | + + + + + | Height | - | - | | + + + + + | Body Mass Index | 31.6 | 10/10/2019 11:16 AM | | | [...] + documented as of this encounter Progress Lissette Dejesus MD - 11/21/2019 8:55 AM PDTFormatting of this note might be different fr om the original. FOLLOW-UP NOTE Patient: Tila Altman Date: 11/21/2019 : 1965 AGE: 54 y.o. Attending Physician: [...] kyphoplasty 08/29/2019, treatment for hypercalcemia Ipi/Nivo 09/19/2019- present Interval History Tila returns today for follow up visit. She is here for cycle 4. She did report fatigue a nd anorexia post 3rd cycle lasting for about 2 weeks but now just tired. She continues to lo se weight due to anorexia but denies nausea except for when she goes on long car trips. Impression/Plan Tila Altman is a 54 y.o. 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 She has a remote h/o Hodgkins s/p CHOPP and RT with resultant hypothyroidism Hypotensive- ? Adrenal insufficiency, other etiology? Cortisol pending, will hold ipi/nivo, give fluids 2L and ordered CT scan today prior to fluids. Discussed ER/admission but since she felt "fine" she did not want admission; will try to work up and administered fluids firs t Hypothyroidism- on synthroid 150mcg po qday, await TSH Hyperkalemia-? Adrenal insufficiency, renal insufficiency Pain - continue oxycodone prn Medications: Current Outpatient Medications Medication Sig cholecalciferol 50,000 unit oral capsule Take 1 capsule by mouth once daily. Indication s: vitamin D deficiency (high dose therapy) furosemide (LASIX) 20 mg oral tablet Take 1 tablet by mouth once daily. levothyroxine 175 mcg oral tablet Take 1 [...] hours as needed for breakthough p ain). No current facility-administered medications for this visit. [...] speech. Appropriate mood/affect. Laboratory: LAB RESULTS: Clinical Change Director on 11/21/2019 Component Date Value WHITE CELL COUNT 11/21/2019 5.64 RED CELL COUNT 11/21/2019 4.43 HEMOGLOBIN 11/21/2019 12.6 HEMATOCRIT 11/21/2019 39.4 MCV 11/21/2019 88.9 MCHC 11/21/2019 32.0 RDW SD 11/21/2019 55.8* PLATELET COUNT 11/21/2019 221 MPV 11/21/2019 8.3* NRBC% 11/21/2019 0.0 NRBC# 11/21/2019 0.00 NEUTROPHIL % 11/21/2019 71.8* LYMPHOCYTE % 11/21/2019 13.5* MONOCYTE % 11/21/2019 8.2 EOS % 11/21/2019 4.6* BASO % 11/21/2019 1.4 IG% 11/21/2019 0.5 NEUTROPHIL # 11/21/2019 4.05 NEUTROPHIL # Prelim 11/21/2019 4.05 LYMPHOCYTE # 11/21/2019 0.76* MONOCYTE # 11/21/2019 0.46 EOS # 11/21/2019 0.26 BASO # 11/21/2019 0.08 IG# 11/21/2019 0.03 Lissette Jones MD documented in this e ncounter Plan of Treatment Not on filedocumented as of this encounter Visit Diagnoses + + | Diagnosis | + + | Renal cell carcinoma, unspecified laterality (HCC) - Primary | + + documented in this encounter
--- OUTSIDE RECORDS SUMMARY | ~2020-06-29 | XMS | Encounter Summary ---
Demographics + + + | Address | [address] | | | [place] [address] | + + + | Home Phone [...] Author + + + | Author | [facility] | | | and Shahram | + + + | Organization | [facility] | | | and Marcana [...] Team Providers + +------+ + | Care Assistant Professor Of Forestry Name | Role | Phone | + +------+ + PCP | Unavailable | + +------+ + Encounter Details +--------+ + + + + | Date | Type | Department | Care Team | Description | +--------+ + + + + | 10/23/ | Hospital | [facility] | | | | 2006 - | Encounter | MED CTR CANCER | | | | | | CENTER [address] | | | | 11/04/ | | [place] | | | | 2006 | | [address] | | | | | | [phone] | | | +--------+ + + + [...]
--- OUTSIDE RECORDS SUMMARY | ~2020-06-29 | XMS | Encounter Summary ---
Demographics + + + | Address | [address] | | | [place] [address] | + + + | Home Phone [...] Providers + +------+ + | Care Shipping Hand Name | Role | Phone | [...]
--- OUTSIDE RECORDS SUMMARY | ~2020-06-29 | XMS | Encounter Summary ---
Demographics + + + | Address | [address] | | | [place] [address] | + + + | Home Phone | | + + + | Preferred Language | Unknown | + + + | Marital Status | | + + + | Temple Affiliation | 1013 | + + + | Race | or Other | + + + | Ethnic Group | Not or | + + + Author + + + | Author | [facility] | | | and Shahram | + + + | Organization | [facility] | | | and Marcana [...] Team Providers + +------+ + | Care Show Host Or Hostess Name | Role | Phone | + +------+ + PCP | Unavailable | + +------+ + Encounter Details +--------+ + + + + | Date | Type | Department | Care Team | Description | +--------+ + + + + | 10/31/ | Hospital | [facility] | | | | 2004 - | Encounter | MED CTR GENERIC OP | | | | | | CONV DEPT [address] | | | | 01/29/ | | [address] [place], | | | | 2004 | | [place] [address] | | | | | | [phone] | | | +--------+ + + + [...]
--- OUTSIDE RECORDS SUMMARY | ~2020-06-29 | XMS | Encounter Summary ---
Demographics + + + | Address | [address] | | | [place] [address] | + + + | Home Phone | | + + + | Preferred Language | Unknown | + + + | Marital Status | | + + + | Denominational Affiliation | 1013 | + + + | Race | or Other | + + + | Ethnic Group | Not or | + + + Author + + + | Author | [facility] | | | and Shahram | + + + | Organization | [facility] | | [...] Team Providers + +------+ + | Care Funding Specialist Name | Role | Phone | + +------+ + PCP | Unavailable | + +------+ + Encounter Details +--------+ + + + + | Date | Type | Department | Care Team | Description | +--------+ + + + + | 11/06/ | Hospital | [facility] | | | | 2005 - | Encounter | MED CTR GENERIC OP | | | | | | CONV DEPT [address] | | | | 12/05/ | | [place], | | | | 2005 | | [place] [address] | | | | | | [phone] | | | +--------+ + + + [...]
--- OUTSIDE RECORDS SUMMARY | ~2020-06-29 | XMS | Encounter Summary ---
Demographics + + + | Address | [address] | | | [place] [address] | + + + | Home Phone [...] Team Providers + +------+ + | Care Lighting Fixture Installer Name | Role | Phone | + [...] | | Kidney | Lissette, | [address] | | | | | cancer, | [place] [address] | | | | | primary, | [place] | Center for | | | | | with | Ct | Health and | | | | | metastasis | [place], | Healing, | | | | | from kidney | [place] | [address], | | | | | to other | [address] | 3rd Floor | | | | | site, left | Phone: | [place], [place] | | | | | ([facility]) | [phone] | [address] | | | | | Procedures | Fax: | Phone: | | | | | CT CHEST, | [phone] | [phone] | | | | | ABDOMEN AND | | Fax: | | | | | PELVIS WO IV | | [phone] | | | | | CONTRAST | | | | | | | CT CHEST, | | | | | | | ABDOMEN AND | | | | | | | PELVIS W IV | | | | | | | CONTRAST MA | | | | | | | CAT SCAN OF | | | | | | | CHEST | | | | | | | CONTRAST MA | | | | | | | CT | | | | | | | ABDOMEN&PELV | | | | | | | IS | | | | | | | W/CONTRAST | | | | | | | MA CT | | | | | | | SCAN,THORAX, | | | | | | | W/O CONTRAST | | | | | | | MA CT ABD | | | | | | | & PELVIS W/O | | | | | | | CONTRAST | | | +--------+--------+ + + + + Encounter Details +--------+ + + + + | Date | Type | Department | Care Team | Description | +--------+ + + + + | 11/20/ | Ancillary | [facility] | Lissette Jones, | | | 2020 | Orders | Clinics at S | [place] [address] | | | | | [place] [address] | | | | | [facility] | [place], [place] | | | | | Health and Healing, | [address] | | | | | [place] [address] | [phone] | | | | | [place], [place] | | | | | | [address] | | | | | | [phone] | | | +--------+ + + + [...]
--- OUTSIDE RECORDS SUMMARY | ~2020-06-29 | XMS | Encounter Summary ---
Demographics + + + | Address | [address] | | | [place] [address] | + + + | Home Phone [...] Team Providers + +------+ + | Care Artist And Repertoire Manager Name | Role | Phone | [...] | Radiology | Diagnoses | Vuky, | [place] | | | | | Renal cell | Lissette | [facility] & | | | | | carcinoma of | [place] [address] | [employer] | | | | | left kidney | [place] | [address] | | | | | (HCC) | Ct | [place] | | | | | Procedures | [facility], | ROAD | | | | | CT CHEST, | [place] | [place], [place] | | | | | ABDOMEN AND | [address] | [address] | | | | | PELVIS W IV | Phone: | Phone: | | | | | CONTRAST | [phone] | [phone] | | | | | | Fax: | | | | | | | [phone] | | + +--------+ + + + [...] Hematology & | Diagnoses | Brown, | Karen, | | | | Oncology | Malignant | Lissette | Lissette, | | | | | neoplasm of | E, [place]-C | [place] [address] [address] | | | | | unspecified | [place] | [address] | | | | | kidney, | Family | [place], | | | | | except renal | Medicine | [place] [address] | | | | | pelvis | [address] | Phone: | | | | | Procedures | Pepe Frank | [phone] | | | | | [place] NEW | Tim, | Fax: | | | | | PATIENT | [place] [address] | [phone] | | | | | LEVEL V [place] | Phone: | | | | | | EST PATIENT | [phone] | | | | | | LEVEL V | Fax: | | | | | | | [phone] | | + +---------+ + + + + Encounter Details +--------+ + + + + | Date | Type | Department | Care Team | Description | +--------+ + + + + | 01/08/ | Telephone-S | [facility] | Lissette Jones, | | | 2019 | gregorduled | Clinics at S | [place] [address] [address] | | | | | [place] [address] | | | | | [facility] for | [place], [place] | | | | | Health and Healing, | [address] | | | | | [facility] | [phone] | | | | | [place], [place] | | | | | | [address] | | | | | | [phone] | | | +--------+ + + + [...] encounter Progress Notes Lissette Jones MD - 01/09/2020 8:55 AM PDTFormatting of this note might be different fr om the original. TELEPHONE VISIT Patient agrees to a telephone encounter for today's visit. They understand they may be resp onsible for the balance after insurance processes the claim. SUBJECTIVE/BACKGROUND CC: No chief complaint on file. Stage IV clear cell carcinoma of kidney [...] unclear reason for hypotension, d/c on midodrine 08/2019 MRI brain negative for metastatic disease Hodgkins disease 2001 s/p CHOPP and also chest RT Current Treatment S/p L2 kyphoplasty 08/29/2019, treatment for hypercalcemia Ipi/Nivo 09/19/2019- x 3 cycles completed 11/20; switched to maintenance nivolumab 12/12/2019 S/p RT to lumbar spine completed 12/30/2019 HPI: The left leg is weaker- less strength and more swollen. She completed RT 12/30/19 to spine - pain has decreased but still present, she feels that back pain is more muscular in nature. Endocrinology is managing levothyroxine which is now 100mcg po qday. For pain, she's taking oxycodone 5mg q 6 hours which currently is well controlled. ROS: See HPI. Medications and allergies and pt reported vitals reviewed and updated in Epic. OBJECTIVE ECOG 1 ASSESSMENT/PLAN Stage IV clear cell carcinoma of kidney with metastatic disease to bone, liver, lung and LN . She has a remote h/o Hodgkins (2001 and 2002) s/p CHOPP and RT with resultant hypothyroidis m S/p 3 cycles of ipi/nivo with thyrotoxicosis, JONO/hypotension requiring hospital admission and development of PE Will d/c ipi, resume nivo and on maintenance 12/12/2019 Thyroid- manage by endocrine PE- continue LMWH, consider switching in 3-4 weeks to apixaban (trial recently reported non inferiority with apixaban) Will need repeat imaging for evaluation - can perform this locally RT locally for spine- completed Cycle 5 of nivo today (and q 4 weeks) Please see AVS for additional instructions related to this visit. Lissette Jones MD Time spent on the call: 15 min. The patients encounter was accomplished via a telephone call today due to COVID-19 precauti onary measures to limit the patient's unnecessary exposure. documented in this e ncounter Plan of Treatment Not on filedocumented as of this encounter Procedures + +--------+ + + + | Procedure Name | Priori | Date/Time | Associated Diagnosis | Comments | | | ty | | | | + +--------+ + + + | ADMINISTER | Routin | 01/09/2020 | | | | CHEMOTHERAPY PER | e | 9:44 AM | | | | TREATMENT PARAMETERS [...]
--- OUTSIDE RECORDS SUMMARY | ~2020-06-29 | XMS | Encounter Summary ---
Demographics + + + | Address | [address] | | | [place] [address] | + + + | Home Phone [...] Author | [facility] | + + + | Organization | [facility] | + + + | Address | Unknown | + + + | Phone | Unavailable | + + + Support + + +---------+ + | Name | Relationship | Address | Phone | + + +---------+ + | William Talavera | ECON | Unknown | | + + +---------+ + Care Team Providers + +------+ + | Care Weld Lay Out Worker Name | Role | Phone | [...] | | | | Hypercalcemi | [place] [address] | [address] | | | | | a of | [address] [address] | | | | | malignancy | Ct | Center for | | | | | Renal cell | [facility], | [facility] and | | | | | adenocarcino | [place] | Healing, | | | | | ma (HCC) | [address] | [address] | | | | | Procedures | Phone: | [place], [place] | | | | | [place] | [phone] | [address] | | | | | PAMIDRONATE | Fax: | Phone: | | | | | DISODIUM, | [phone] | [phone] | | | | | PER 30 MG | | Fax: | | | | | [place] | | [phone] | | | | | THR/PRPH/DX | [...] + + | 10/31/ | Hospital | [facility] | [address] | | | 2020 | Encounter | Clinics at S | [address] [place], [place] | | | | | [place] [address] | [address] | | | | | [facility] | | | | | | Health and Healing, | | | | | | [address] | | | | | | [place], [place] | | | | | | [address] | | | | | | [phone] | | | +--------+ + + + [...] + + + | Blood Pressure | 104/63 | 10/31/2019 3:00 PM | | | | | PST | | + + + + + | Pulse | 122 | 10/31/2019 3:00 PM | | | | | PST | | + + + + + | Temperature | 36.4 C (97.6 F) | 10/31/2019 11:47 AM | | | | | PST | | + + + + + | Respiratory Rate | - | - | | + + + + + | Oxygen Saturation | 100% | 10/31/2019 11:47 AM | | | | | PST [...] documented as of this encounter Progress Notes Straughter, SudhaYINA - 10/31/2019 10:20 AM PSTMs. Agapito is tachycardic, though her recen t HR has been in the low 100's, for this visit has been as high as 122, without new or worse jimbo symptoms and otherwise stable (for her-she has been hypotensive in the 80-90/upper 40-l ow 60's) blood pressure. EKG performed showing tachycardia with vague mention of possible anterior and posterior inf arct. Patient is resting comfortably in the chair with her legs elevated. She denies any such sym ptoms such as SOB, chest pain or tightness, dizziness, headache, palpitations, abdominal steph n. She does report occasional non-productive cough, but otherwise reports stable health with out new symptoms. Upon assessment, she appears a bit dusky, but in NAD, respirations are =, even and unlabore d, her breath sounds are a bit dampened, but without adventitious auscultation. She is not i ll appearing. She has a very rapid, irregular/regular heartbeat without murmur. She is witho ut use of accessory muscles. + for bilateral upper extremity swelling, +2 bilateral lower extremity swelling, NO facial swelling. No ascites noted, her abdomen is protuberant, but soft with present and hypoactive bowel sounds. She appears to be safe for discharge with close monitoring and perhaps a trop onin level, and strict instructions. Her RN is attempting to contact Dr. Jones for her viewing of the EKG to allow for discharge vs. Further instructions. Patient tolerated her treatment without incident today.Electronica lly signed by YINA Colón at 10/31/2019 5:32 PM Leonora Lindsey, RN - 020 10:20 AM PSTChemotherapy Nurse Note Name: Tila Altman Date: 10/31/2019 Physician: Karen Allergies: Tila has No Known Allergies. Diagnosis: Renal cell Significant Other: Family at chairside Nursing Assessment: Fever: no; Diarrhea:No Constipation: no SOB / Cough: no; Rash: no Edema: no; Mucositis: no; Urinary: no; Neuropathy: no; S/S Bleeding: no; Severity (1=Not at all, 2=A little, 3=Quite a bit, 4=Very much) Nausea and/or Vomitin Fatigue: 0 Pain: 0 Narrative: Patient here for C3 Nivolumab/Yervoy. She reports tolerating first infusion fine but pain in chest half way through second infusion during Opdivo. Discussed this with Dr. Jones and will premedicate prior to todays infusion with 25mg IV benadryl and run opdivo over 1 hour. Well tolerated. Waited 30 minutes between drugs for monitoring ( Yervoy over 30 min utes). Will send message to Dr. Jones if wants to add benadryl to next cycle. Medication infused with 250ml NS sidearm bag. Pt tolerated without incident. 1 liter NS bolus, BP responded but HR remained elevated. EKG as per Dr. Jones and sinus tach ycardia, asymptomatic. Also discussed hyperkalemia with Dr. Jones. Plan for troponin and repe at [facility]. As per Md do not need to have pt wait for results. Will stay with family in [facility] and 9:30 am clinic appointment tomorrow. Will also increase her synthroid (md to se nd to pharm). Reviewed plan with Ms. Barragan and her family who verbalized understanding. PIV d/c'd and intact. 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 Refer to MAR and Onc Lines and Transfusions doc flowsheet for treatment details.Electronica lly signed by Leonora Ribera RN at 10/31/2019 6:17 PM PSTdocumented in this encounter Miscellaneous Notes Addendum Note - Kushal Vegas PharmD - 10/31/2019 10:20 AM PST Encounter addended by: Kushal Vegas PharmD on: 11/07/2019 11:31 AM Actions taken: Order list changed, Treatment plan modified documented in this encounter Plan of Treatment + +------+--------+ + + | Name | Type | Priori | Associated Diagnoses | Order Schedule | | | | ty | | | + +------+--------+ + + | 12 LEAD ECG | ECG | Routin | Renal cell | Ordered: 10/31/2019 | | | | e | carcinoma of left | | | | | | kidney (HCC) | | + +------+--------+ + + documented as of this encounter Procedures + +--------+ + + + | Procedure Name | Priori | Date/Time | Associated Diagnosis | Comments | | | ty | | | | + +--------+ + + + | [facility] - BASIC | Routin | 10/31/2019 | Renal cell | Results for this | | METABOLIC SET | e | 5:08 PM | carcinoma of left | procedure are in the | | | | PST | kidney (HCC) | results section. | + +--------+ + + + | TROPONIN I, PLASMA | Routin | 10/31/2019 | Renal cell | Results for this | | | e | 5:08 PM | carcinoma of left | procedure are in the | | | | PST | kidney (HCC) | results section. | + +--------+ + + + documented in this encounter Results TROPONIN I, PLASMA (10/31/2019 5:08 PM PST) + +-------+ + + + [...] [facility] | [address] | [place] [address] | | | SERVICES, CORE | [address] | | | + + + + + [facility] - BASIC METABOLIC SET (10/31/2019 5:08 PM PST) + + + + + + | Component | Value | Ref Range | Performed | Pathologist | | | | | At | Signature | + + + + + + | GLUCOSE, | 74 | 70 - 99 mg/dL | [facility] | | | PLASMA | | | LABORATORY | | | (LAB) | | | SERVICES, | | | | | | CORE | | + + + + + + | BUN, PLASMA | 50 (H) | 6 - 20 mg/dL | [facility] | | | (LAB) | | | LABORATORY | | | | | | SERVICES, | | | | | | CORE | | + + + + + + | CREATININE | 1.60 (H) | 0.60 - 1.10 | [facility] | | | PLASMA | | mg/dL | LABORATORY | | | (LAB) | | | SERVICES, | | | | | | CORE | | + + + + + + | EGFR | 40 (L) | >60 mL/min | [facility] | | | - | | | LABORATORY | | | ETHIOPIAN | | | SERVICES, | | | | | | CORE | | + + + + + + | EGFR NON | 33 (L) | >60 mL/min | [facility] | | | -LISA | | | LABORATORY | | | RICAN | | | SERVICES, | | | | | | CORE | | + + + + + + | SODIUM, | 133 (L) | 136 - 145 | [facility] | | | PLASMA | | mmol/L | LABORATORY | | | (LAB) | | | SERVICES, | | | | | | CORE | | + + + + + + | POTASSIUM, | 6.2 (HH) | 3.4 - 5.0 | [facility] [...] + + + | ANION GAP | 6 | 4 - 11 mmol/L | [facility] | | | | | | LABORATORY | | | | | | SERVICES, | | | | | | CORE | | + + + + + + | BUN/CREATIN | 31 (H) | 8 - 25 | [facility] [...] MDRD equation recommended by the National | [facility] | | Kidney Disease Education Program. Estimated [...] + | [facility] | [address] | [place] [address] | | | SERVICES, DWIGHT | [place] [...] +-------+------+------+ | diphenhydrAMINE (BENADRYL) | Given | 10/31/19 | 25 mg | | | | injection 25 mg 25 mg, | | 20 1:29 | | | | | intravenous, ONCE, 1 dose, Mon | | PM PST | | | | | 10/31/19 at 1400 | | | | | | + +--------+ +-------+------+------+ +---+---+ | | | +---+---+ + +---------+ +-------+-------+---+ | ipilimumab (YERVOY) 85 mg in | New Bag | 10/31/19 | 85 mg | 134 | | | sodium chloride (NS) 0.9 % IV 85 | | 20 4:05 | | mL/hr | | | mg [...] | | | | | | | 10/31/19 at 1215, Administer | | | | | | [...] 260 mg in | New Bag | 10/31/19 | 260 mg | 252 | | | sodium chloride (NS) 0.9 % IV | | 20 2:35 | | mL/hr | | | 260 [...] | | | | | | | 10/31/19 at 1145, Administer | | | | | | | through a low protein binding | | | | | | | 0.22 micron in-line filter., | | | | | | + +---------+ +--------+-------+---+ +---+---+ | | | +---+---+ + +---------+ + +---+---+ | sodium chloride (NS) 0.9 % | New Bag | 10/31/19 | 1,000 mL | | | | bolus 1,000 mL 1,000 mL, | | 20 12:19 | | | | | intravenous, ONCE, 1 dose, Mon | | PM PST | | | | | 10/31/19 at 1145 | | | | | | + +---------+ + +---+---+ +---+---+ | | | +---+---+ documented in this encounter"
--- OUTSIDE RECORDS SUMMARY | ~2020-06-29 | XMS | Encounter Summary ---
Demographics + + + | Address | [address] | | | [place] [address] | + + + | Home Phone [...] Team Providers + +------+ + | Care Asphalt Machine Operator Name | Role | Phone [...] | 10/10/ | Clinical | Laboratory at [facility] | | Lab Draw | | 2020 | Support | [address] | | | | | Staff | [facility] | | | | | | and Healing, | | | | | | Building [address] | | | | | | [place], [place] | | | | | | [address] | | | | | | [phone] | | | +--------+ + + + [...] | | | | PST | kidney ([facility]) | results section. | + +--------+ + + + | COMPLETE METABOLIC | Routin | 10/10/2019 | Renal cell | Results for this | | PANEL - OLP | e | 9:08 AM | carcinoma of left | procedure are in the | | | | PST | kidney ([facility]) | results section. | + +--------+ + + + | CBC WITH AUTO DIFF - | Routin | 10/10/2019 | Renal cell | Results for this | | OLP | e | 9:08 AM | carcinoma of left | procedure are in the | | | | PST | kidney ([facility]) | results section. | + +--------+ + + + | [facility] - COMPLETE | Routin | 10/10/2019 | Renal cell | Results for this | | METABOLIC SET | e | 9:08 AM | carcinoma of left | procedure are in the | | | | PST | kidney ([facility]) | results section. | + +--------+ + + + | FREE T4 | Routin | 10/10/2019 | Renal cell | Results for this | | | e | 9:08 AM | carcinoma of left | procedure are in the | | | | PST | kidney ([facility]) | results section. | + +--------+ + + + | TSH | Routin | 10/10/2019 | Renal cell | Results for this | | | e | 9:08 AM | carcinoma of left | procedure are in the | | | | PST | kidney ([facility]) | results section. | + +--------+ + + + | CORTISOL, SERUM | Routin | 10/10/2019 | Renal cell | Results for this | | | e | 9:08 AM | carcinoma of left | procedure are in the | | | | PST | kidney ([facility]) | results section. | + [...] + | [facility] | [address] | [place] [address] | | | DWIGHT MARTINEZ | [address] [...] | + + + + + | [facility] | [address] | [place] [address] | | | SERVICES, CORE | [address] [...] [facility] | [address] | [place] [address] | | | SERVICES, [facility] | [address] | | | + [...] SERVICES, | | | | | | [facility] | | | | | | [...] | | | LABORATORY | | | DJIBOUTIAN | | | SERVICES, | | | [...] SERVICES, | | | | | | [facility] | | | | | | [...] | + + + + + | [facility] [place] | [address] | [place] [address] | | | SERVICES, [place] [facility] | | | | | HEALTH [...] | included in the neutrophil count. 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
--- OUTSIDE RECORDS SUMMARY | ~2020-06-29 | XMS | Encounter Summary ---
Demographics + + + | Address | [address] | | | [place] [address] | + + + | Home Phone [...] Providers + +------+ + | Care Sales Office Manager Name | Role | Phone | + +------+ + | Lissette Martinez PA-C | PCP | | + +------+ + Encounter Details +--------+ + + + + | Date | Type | Department | Care Team | Description | +--------+ + + + + | 11/01/ | Trench Pipe Layer | [facility] | Lissette Jones, | Kidney cancer, | | 2020 | | Clinics at S | [place] [address] | primary, with | | | | [place] | metastasis from | | | | [facility] for | [facility] [place] | kidney to other | | | | Health and Healing, | [address] | site, left (HCC) | | | | [address] | [phone] | (Primary Dx) | | | | [place], [place] | | | | | | [address] | | | | | | [phone] | | | +--------+ + + + [...] on filedocumented as of this encounter Results [facility] - BASIC METABOLIC SET (11/01/2019 10:13 AM [...] | | | LABORATORY | | | [facility] | | | SERVICES, | | | [...] [facility] | [address] | [place] [address] | | | SERVICES, [place] [facility] | | | | | HEALTH + HEALING | | | | + + + + + documented in this encounter Visit Diagnoses + + | Diagnosis | + + | Kidney cancer, primary, 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
--- OUTSIDE RECORDS SUMMARY | ~2020-06-29 | XMS | Encounter Summary ---
Demographics + + + | Address | [address] | | | [place] [address] | + + + | Home Phone [...] Team Providers + +------+ + | Care Finish Mixer Name | Role | Phone | + +------+ + | Lissette Martinez PA-C | PCP | | + +------+ + Reason for Visit + +--------+ + | Reason | Onset | Comments | | | Date | | + +--------+ + | Post-discharge | 12/13/ | | | follow-up | 2020 | | + +--------+ + Encounter Details +--------+ + + + + | Date | Type | Department | Care Team | Description | +--------+ + + + + | 12/13/ | Telephone | [facility] Primary Care | Yeni, | Post-discharge | | 2020 | | at [facility] | DO L[address] | follow-up | | | | [address] | [address] [facility] | | | | | Loop Physician's | [place], [place] | | | | | [place], 3rd floor | [address] | | | | | [place], [place] | [phone] | | | | | [address] | | | | | | [phone] | | | +--------+ + + + [...] this encounter Miscellaneous Notes Telephone Encounter - Richi Salvador - 12/15/2019 9:10 AM PDTDischarge summary faxed.Electr onically signed by Richi Salvador at 12/15/2019 9:10 AM PDTTelephone Encounter - Clarita Jaime DO - 12/14/2019 3:58 PM PDTPaged by PAS to return call from patient's PCP, REDD Morton, in [place], [place] with post-discharge questions. Lissette Martinez asked if it would be reasonable to start patient on a diuretic (Lasix 20 m g daily) given that she has had a 16 lb weight gain since discharge. I said yes as she is surekha win still having R sided HF sxs from resolving PE. Lissette noted that patient had persis tent PND (has been present since discharge), but otherwise no SOB, worsening GARCIA, CP, or sym ptoms concerning for a new cardiac event. I recommended Lissette check labs in 1 week post diuretic initiation to ensure kidney function and K stable. Also recommended that if edema does not improve with diuretic or persists after 2 - 3 months post-discharge, a repeat TTE s perryuld be obtained with possible follow-up at [facility] pending results. Lissette also asked about thyroid medication - recent TSH elevated, but T4 WNL. I asked h er to make sure labs get to Peggy Yoon who will manage thyroid medication going forward . Routing to Vivi Márquez as she is the attending on record to make sure she doesn't have jeff tional recommendations. Routing to Peggy Yoon to make sure thyroid labs get followed up. Routing to [facility] to see if they are able to fax my 11/29/2019 discharge summary to Holly Martinez's office in [place], [place]. For reference, Lissette Martinez's number is [phone]. Lissette Jaime DO Internal Medicine, PGY2 Pager [phone] documented in this encounter Plan of Treatment Not on filedocumented as of this encounter Visit Diagnoses Not on filedocumented in this encounter"
--- OUTSIDE RECORDS SUMMARY | ~2020-06-29 | XMS | Encounter Summary ---
Demographics + + + | Address | [address] | | | [place] [address] | + + + | Home Phone [...] Team Providers + +------+ + | Care Practice Business Asst Name | Role | Phone | + +------+ + | Lissette Martinez PA-C | PCP | | + +------+ + Encounter Details +--------+ + + + + | Date | Type | Department | Care Team | Description | +--------+ + + + + | 11/15/ | Sales And Service Consultant | [facility] | Lissette Jones, | | | 2019 | | Clinics at S | [place] [address] | | | | | [address] | | | | | [facility] for | [place], [place] | | | | | Health and Healing, | [address] | | | | | [address] | [phone] | | | | | [place], [place] | | | | | | [address] | | | | | | [phone] | | | +--------+ + + + [...]
--- OUTSIDE RECORDS SUMMARY | ~2020-06-29 | XMS | Encounter Summary ---
Demographics + + + | Address | [address] | | | [place] [address] | + + + | Home Phone [...] Team Providers + +------+ + | Care Neuropsychiatric Aide Name | Role | Phone | [...] Pharmacy | | | | | | [address] | | | | | | [place], [place] | | | | | | [address] | | | | | | [phone] | | | +--------+ + + + [...]
--- OUTSIDE RECORDS SUMMARY | ~2020-06-29 | XMS | Encounter Summary ---
Demographics + + + | Address | [address] | | | [place] [address] | + + + | Home Phone [...] + + + | Author | [facility] | + + + | Organization | [facility] | + + + | Address | Unknown | + + + | Phone | Unavailable | + + + Support + + +---------+ + | Name | Relationship | Address | Phone | + + +---------+ + | William Talavera | ECON | Unknown | | + + +---------+ + Care Team Providers + +------+ + | Care Box Toe Cementer Name | Role | Phone | + +------+ + | Lissette Martinez PA-C | PCP | | + +------+ + Encounter Details +--------+ + + + + | Date | Type | Department | Care Team | Description | +--------+ + + + + | 05/31/ | MyChart | [facility] | Lissette Jones, | RE: Rx refill - A. | | 2020 | Encounter | Clinics at S | [place] [address] | [place] | | | | [place] [address] | | | | | [facility] for | [place], [place] | | | | | Health and Healing, | [address] | | | | | [address] | [phone] | | | | | [facility] [place] | | | | | | [address] | | | | | | [phone] | | | +--------+ + + + [...] this encounter Miscellaneous Notes Telephone Encounter - Chinchilla DouglasSAMSON poe - 06/04/2020 12:45 PM PDT Last appointment with Lissette Jones MD was on 05/22/2020 . Next appointment with Lissette Jones MD is scheduled on 06/26/2020. Last LIP progress note reviewed. Is there documentation to indicate that medication being r equested has been changed or discontinued? No Allergy list reviewed--Is the medication being requested on the patient's current allergy l ist? No Previous Prescription Details copied below: Date and Time Department Ordering/Authorizing 04/23/2020 9:10 AM [facility] Lissette Jones MD Outpatient Medication Detail Disp Refills oxyCODONE (immediate release) 5 mg oral tablet 120 tablet 0 Sig: Take 1 tablet by mouth every four hours as needed for severe pain. Sent to pharmacy as: oxyCODONE 5 mg tablet (ROXICODONE) Class: eRx Earliest Fill Date: 04/23/2020 Route: oral Order: [id number] E-Prescribing Status: Receipt confirmed by pharmacy (04/23/2020 9:10 AM PDT) Start Date Earliest Fill Date Apr 23, 2020 Apr 23, 2020 Per [facility] policy, routing encounter to [facility] for review and approval documented in this encounter Plan of Treatment Not on filedocumented as of this encounter Visit Diagnoses Not on filedocumented in this encounter"
--- OUTSIDE RECORDS SUMMARY | ~2020-06-29 | XMS | Encounter Summary ---
Demographics + + + | Address | [address] | | | [place] [address] | + + + | Home Phone [...] Team Providers + +------+ + | Care Grain Drier Name | Role | Phone | + [...] + + | 11/20/ | Hospital | Radiology/Imaging | Karen Lissette, | | | 2019 | Encounter | Lab at [facility] [address] | [place] [address] [address] | | | | | [facility] for | [address] | | | | | Health and [facility], | [place], [place] | | | | | [address] | [address] | | | | | Floor [place], [place] | [phone] | | | | | [address] | | | | | | [phone] | | | +--------+ + + + [...] | CT CHEST, ABDOMEN | Routin | 11/21/2019 | Kidney cancer, | Results for this | | AND PELVIS WO IV | e | 10:43 AM | primary, with | procedure are in the | | CONTRAST | | PDT | metastasis from | results section. | | | | | kidney to other | | | | | | site, left (HCC) | | + +--------+ + + + | CREATININE, POC | Routin | 11/21/2019 | Kidney cancer, | Results for this | | | e | 10:16 AM | primary, with | procedure are in the | | | | PDT | metastasis from | results section. | [...] | | | + +---------+ + + SURYA BARRETT (11/21/2019 10:16 AM PDT) + +---------+ + + + | Component | Value | Ref Range | Performed | Pathologist | | | | | At | Signature | + +---------+ + + + | CREATININE, | 3.7 (H) | 0.6 - 1.1 mg/dL | [facility], | | | POC | | | POINT OF | | | | | | CARE TESTS | | + +---------+ + + + + + | Specimen | + + | Blood - Blood | | (substance) | + + + + + + + | Performing | Address | City/State/Zipcode | Phone Number | | Organization | | | | + + + + + | [facility] | [address] | [place] [address] | | | OF CARE TESTS | | | | + + + + + documented in this encounter Visit Diagnoses + + | Diagnosis | + + | Kidney cancer, primary, 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
--- OUTSIDE RECORDS SUMMARY | ~2020-06-29 | XMS | Encounter Summary ---
Demographics + + + | Address | [address] | | | [place] [address] | + + + | Home Phone | | + + + | Preferred Language | Unknown | + + + | Marital Status | Single | + + + | Congregational Affiliation | CHR | + + + [...] Team Providers + +------+ + | Care Nursing Officer Name | Role | Phone | [...] | | | | | cancer, | [address] | [address] | | | | | primary, | [address] | [facility] | | | | | with | Ct | Hospital, | | | | | metastasis | [facility], | 10th Floor | | | | | from kidney | [place] | [place], [place] | | | | | to other | [address] | [address] | | | | | site, left | Phone: | Phone: | | | | | (HCC) | [phone] | [phone] | | | | | Procedures | Fax: | Fax: | | | | | CT CHEST, | [phone] | [phone] | | | | | ABDOMEN AND | | | | | | | PELVIS WO IV | | | | | | | CONTRAST | | | | | | | CT CHEST, | | | | | | | ABDOMEN AND | | | | | | | PELVIS W IV | | | | | | | CONTRAST GA | | | | | | | CAT SCAN OF | | | | | | | CHEST | | | | | | | CONTRAST GA | | | | | | | CT | | | | | | | ABDOMEN&PELV | | | | | | | IS | | | | | | | W/CONTRAST | | | | | | | GA CT | | | | | | | SCAN,THORAX, | | | | | | | W/O CONTRAST | | | | | | | GA CT ABD | | | | | | | & PELVIS W/O | | | | | | | CONTRAST | | | +--------+--------+ + + + + Encounter Details +--------+ + + + + | Date | Type | Department | Care Team | Description | +--------+ + + + + | 08/23/ | Hospital | Diagnostic Imaging | Lissette Jones, | Canceled (Patient | | 2019 | Encounter | Services at [facility] | [address] | Condition Change) | | | | [address] | [address] | | | | | [facility] | [place], [place] | | | | | [facility], [address] [place] [address] | [address] | | | | | [place], [place] | [phone] | | | | | [address] | | | | | | [phone] | | | +--------+ + + + [...]
--- OUTSIDE RECORDS SUMMARY | ~2020-06-29 | XMS | Encounter Summary ---
Demographics + + + | Address | [address] | | | [place] [address] | + + + | Home Phone [...] Team Providers + +------+ + | Care Mid Level Project Manager Name | Role | Phone | + +------+ + | Lissette Martinez PA-C | PCP | | + +------+ + Encounter Details +--------+ + + + + | Date | Type | Department | Care Team | Description | +--------+ + + + + | 06/29/ | Telephone | [facility] | Yasemin Álvarez, | | | 2020 | | Clinics at S | PASSENGER SERVICE AGENT [address] | | | | | [address] | [address] [place], | | | | | [address] | [place] [address] | | | | | Health and Healing, | [phone] | | | | | Building [address] | | | | | | [place], [place] | | | | | | [address] | | | | | | [phone] | | | +--------+ + + + [...] and she noticed this about a [place] ago but did not discuss with Dr [...] Patient agreed and will go to the [facility] ED in [place] Called report to Gabriela DOUGLAS at [facility] ED documented in this encounter Plan of Treatment Not on filedocumented as of this encounter Visit Diagnoses Not on filedocumented in this encounter
--- OUTSIDE RECORDS SUMMARY | ~2020-06-29 | XMS | Encounter Summary ---
Demographics + + + | Address | [address] | | | [place] [address] | + + + | Home Phone | | + + + | Preferred Language | Unknown | + + + | Marital Status | Single | + + + | Buddhist Affiliation | CHR | + + + [...] Team Providers + +------+ + | Care Life Skills Educator Name | Role | Phone | + +------+ + | Lissette Martinez PA-C | PCP | | + +------+ + Encounter Details +--------+ + + + + | Date | Type | Department | Care Team | Description | +--------+ + + + + | 12/26/ | Pharmacy | Pharmacy @ | | | | 2019 | Visit | [facility] | | | | | | [place] [address] | | | | | | [facility] [address] | | | | | | [place] [address] | | | +--------+ + + + [...]
--- OUTSIDE RECORDS SUMMARY | ~2020-06-29 | XMS | Encounter Summary ---
Demographics + + + | Address | [address] | | | [place] [address] | + + + | Home Phone [...] Author + + + | Author | [facility] | + + + | Organization | [facility] | + + + | Address | Unknown | + + + | Phone | Unavailable | + + + Support + + +---------+ + | Name | Relationship | Address | Phone | + + +---------+ + | William Talavera | ECON | Unknown | | + + +---------+ + Care Team Providers + +------+ + | Care Chief Human Resources Officer Name | Role | Phone | [...] Pharmacy | | | | | | [address] | | | | | | [place], [place] | | | | | | [address] | | | | | | [phone] | | | +--------+ + + + [...]
--- OUTSIDE RECORDS SUMMARY | ~2020-06-29 | XMS | Encounter Summary ---
Demographics + + + | Address | [address] | | | [place] [address] | + + + | Home Phone [...] Team Providers + +------+ + | Care Graduating Machine Operator Name | Role | Phone | + +------+ + PCP | Unavailable | + +------+ + Reason for Referral Diagnostic Testing (Urgent) +--------+--------+ + + + + | Status | Reason | Specialty | Diagnoses / | Referred By | Referred To | | | | | Procedures | Contact | Contact | +--------+--------+ + + + + | Closed | | Radiology | Diagnoses | [place], | Rad Ct Scan | | | | | Renal mass | MD Ash | [facility] [address] | | | | | Procedures | [address] | [address] | | | | | US BIOPSY | [facility] | [facility] [place] | | | | | LIVER WITH | Rd | [facility], | | | | | GUIDANCE | [facility] [place] | 10th Floor | | | | | ABDOMEN | [address] | [facility] [place] | | | | | BIOPSY | Phone: | [address] | | | | | REQUEST [place] | [phone] | Phone: | | | | | BIOPSY OF | Fax: | [phone] | | | | | LIVER, | [phone] | Fax: | | | | | NEEDLE, | | [phone] | | | | | PERCUTANEOUS | | | | | | | [place] RAFAEL | | | | | | | GUIDE FOR | | | | | | | NEEDLE | | | | | | | PLACEMENT | | | +--------+--------+ + + + + Encounter Details +--------+ + + + + | Date | Type | Department | Care Team | Description | +--------+ + + + + | 08/08/ | Waistband Setter Lockstitch | [facility] | Ash Cavazos MD | Renal mass (Primary | | 2019 | | Clinics at S | [address] | Dx) | | | | [address] | [address] [place], | | | | | [facility] for | [place] [address] | | | | | Health and Healing, | [phone] | | | | | [address] | | | | | | [place], [place] | | | | | | [address] | | | | | | [phone] | | | +--------+ + + + [...] this encounter Miscellaneous Notes Telephone Encounter - Ash Cavazos MD - 08/08/2019 12:40 PM PSTID: Ms. Tila Altman is a 54 y.o. female who a referral to the hematology Clinic has been submitted for possible recurre nt lymphoma Brief History: Ms. Altman has a history of Hodgkin lymphoma in 2001. Per available outside n otes, she was treated with CHOPP and radiation to her neck. Her chemotherapy is unusual for the treatment of Hodgkin lymphoma. She presented to her primary care physician for lower back pain on 07/11/19. The pain was r ated as a 8 out of 10 and associated with spasms. Her back pain was treated with physical t herapy. And muscle relaxant. Unfortunately the pain did not resolve. She had a CT scan of her abdomen and pelvis on 07/27/2019. The left kidney was noted to be significantly enlarg ed measuring 16.1 x 12.7 x 12.9 cm. There was an abnormal enhancement pattern. There is po ssible tumor thrombus. There was separate adenopathy measuring 6.7 cm x 3.0 cm. Numerous h epatic lesions were seen as well. The findings were concerning for recurrence of her lympho ma or possibly a renal cell carcinoma. Plan: 1) Submit a a request to radiology for image guided needle core biopsy 2) schedule in the hematology clinic pending pathology results Ash Cavazos MD. PhD Box Sorter Hematology and Medical Oncology documented in this enc nter Plan of Treatment Not on filedocumented as of this encounter Results US BIOPSY LIVER WITH GUIDANCE (08/16/2019 4:11 PM [...] without complication and returned to 11B PCU | | | for post-procedure monitoring. [...] 08/16/2019 4:06 PM | |Dictation initiated: Norbert Jones MD 08/16/2019 4:03 PM | + + + [...] Diagnosis | + + | Renal mass - Primary Unspecified disorder of kidney and ureter | + + documented in this encounter"
--- OUTSIDE RECORDS SUMMARY | ~2020-06-29 | XMS | Encounter Summary ---
Demographics + + + | Address | [address] | | | [place] [address] | + + + | Home Phone [...] Team Providers + +------+ + | Care Foot Gatherer Name | Role | Phone | + +------+ + | Lissette Martinez PA-C | PCP | | + +------+ + Reason for Visit + +--------+ + | Reason | Onset | Comments | | | Date | | + +--------+ + | Appointment | 05/20/ | | | | 2019 | | + +--------+ + Encounter Details +--------+ + + + + | Date | Type | Department | Care Team | Description | +--------+ + + + + | 05/20/ | Telephone | [facility] | Lissette Jones, | Appointment | | 2020 | | Clinics at S | [place] [address] [address] | | | | | [address] | | | | | [facility] for | [place], [place] | | | | | Health and Healing, | [address] | | | | | [address] | [phone] | | | | | [place], [place] | | | | | | [address] | | | | | | [phone] | | | +--------+ + + + [...] Notes Telephone Encounter - Lito Keyes - 05/20/2020 1:29 PM PDT Patient scheduled as requested. [email or web address] message notifying patient of appointment. FYI. Anjel snow signed by Lito Keyes at 05/20/2020 1:31 PM PDTdocumented in this encounter Plan of Treatment Not on filedocumented as of this encounter Visit Diagnoses Not on filedocumented in this encounter"
--- OUTSIDE RECORDS SUMMARY | ~2020-06-29 | XMS | Encounter Summary ---
Demographics + + + | Address | [address] | | | [place] [address] | + + + | Home Phone [...] Team Providers + +------+ + | Care Clinical Appeals Specialist Name | Role | Phone | [...] | | | | | carcinoma, | [address] | [address] | | | | | unspecified | Angelito Rosa | [facility] | | | | | laterality | [address] | Rd [place], | | | | | ([facility]) | [place] | [place] | | | | | Procedures | [address] | [address] | | | | | SIMULATION | Phone: | Phone: | | | | | IMAGING | [phone] | [phone] | | | | | SBRT | Fax: | Fax: | | | | | | [phone] | [phone] | +--------+--------+ + + + + Encounter Details +--------+ + + + + | Date | Type | Department | Care Team | Description | +--------+ + + + + | 02/23/ | Transcribe | Radiation Oncology | Antwon Beard, | | | 2020 | Orders | at [facility] [address] | [address] [facility] | | | | | Lisa Easley | [facility] | | | | | Ish[place], [address] [place] [address] | [place], [place] | | | | | [place], [place] | [address] | | | | | [address] | [phone] | | | | | [phone] | | | +--------+ + + + [...] on filedocumented as of this encounter Results SIMULATION IMAGING (02/27/2020 8:40 [...]
--- OUTSIDE RECORDS SUMMARY | ~2020-06-29 | XMS | Encounter Summary ---
Demographics + + + | Address | [address] | | | [place] [address] | + + + | Home Phone | | + + + | Preferred Language | Unknown | + + + | Marital Status | Single | + + + | Taoism Affiliation | CHR | + + + [...] Team Providers + +------+ + | Care Hazardous Waste Technician Name | Role | Phone | [...] | | | Kidney | Lissette, | [facility] [address] | | | | | cancer, | [place] [address] [address] | Pavilion | | | | | primary, | [address] | [address] | | | | | with | Ct | [place], | | | | | metastasis | [place], | Basement | | | | | from kidney | [place] | [place], [place] | | | | | to other | [address] | [address] | | | | | site, left | Phone: | Phone: | | | | | (HCC) | [phone] | [phone] | | | | | Procedures | Fax: | Fax: | | | | | NM BONE &/OR | [phone] | [phone] | | | | | JOINT | | | | | | | IMAGING | | | | | | | WHOLE BODY | | | | | | | AR BONE | | | | | | [...] | | Kidney | Lissette, | [address] | | | | | cancer, | [place] [address] [address] | Pavilion | | | | | primary, | [address] | [address] | | | | | with | Ct | [place], | | | | | metastasis | [place], | Basement | | | | | from kidney | [place] | [place], [place] | | | | | to other | [address] | [address] | | | | | site, left | Phone: | Phone: | | | | | (HCC) | [phone] | [phone] | | | | | Procedures | Fax: | Fax: | | | | | NM BONE &/OR | [phone] | [phone] | | | | | JOINT | | | | | | | IMAGING | | | | | | | WHOLE BODY | | | | | | | AR BONE | | | | | | [...] | | 2019 | Encounter | at [facility] [address] | [place] [address] | | | | | [address] | [address] | | | | | [place], | [place] | | | | | Basement [place], | [address] | | | | | [place] [address] | [phone] | | | | | [phone] | | | +--------+ + + + [...]
--- OUTSIDE RECORDS SUMMARY | ~2020-06-29 | XMS | Encounter Summary ---
Demographics + + + | Address | [address] | | | [place] [address] | + + + | Home Phone [...] Team Providers + +------+ + | Care Casing Trimmer Name | Role | Phone | [...] [address] | | | | | | [address] [place] | | | | | | [address] | | | | | | [place], [place] | | | | | | [address] | | | | | | [phone] | | | +--------+ + + + [...]
--- OUTSIDE RECORDS SUMMARY | ~2020-06-29 | XMS | Encounter Summary ---
Demographics + + + | Address | [address] | | | [place] [address] | + + + | Home Phone [...] + + + | Author | [facility] | + + + | Organization | [facility] | + + + | Address | Unknown | + + + | Phone | Unavailable | + + + Support + + +---------+ + | Name | Relationship | Address | Phone | + + +---------+ + | William Talavera | ECON | Unknown | | + + +---------+ + Care Team Providers + +------+ + | Care Electric Vehicle Electrician Name | Role | Phone | + [...] | | Clinics at S | [place] [address] [address] | 6 week follow up) | | | | [facility] [address] | | | | | [facility] for | [place], [place] | | | | | Health and Healing, | [address] | | | | | [address] | [phone] | | | | | [place], [place] | | | | | | [address] | | | | | | [phone] | | | +--------+ + + + [...]
--- OUTSIDE RECORDS SUMMARY | ~2020-06-29 | XMS | Encounter Summary ---
Demographics + + + | Address | [address] | | | [place] [address] | + + + | Home Phone | | + + + | Preferred Language | Unknown | + + + | Marital Status | | + + + | Zoroastrianism Affiliation | 1013 | + + + | Race | or Other | + + + | Ethnic Group | Not or | + + + Author + + + | Author | [facility] | | | and Shahram | + + + | Organization | [facility] | | | and [place] | [...] Team Providers + +------+ + | Care Cisco Certified Network Associate Name | Role | Phone | + +------+ + PCP | Unavailable | + +------+ + Encounter Details +--------+ + + + + | Date | Type | Department | Care Team | Description | +--------+ + + + + | 06/04/ | Hospital | [facility] | | | | 2005 - | Encounter | [facility] CAN[facility] | | | | | | CENTER [address] | | | | 09/02/ | | [place] | | | | 2005 | | [address] | | | | | | [phone] | | | +--------+ + + + [...]
--- OUTSIDE RECORDS SUMMARY | ~2020-06-29 | XMS | Encounter Summary ---
Demographics + + + | Address | [address] | | | [place] [address] | + + + | Home Phone [...] Team Providers + +------+ + | Care Resource Specialist Teacher Name | Role | Phone | [...]
--- OUTSIDE RECORDS SUMMARY | ~2020-06-29 | XMS | Encounter Summary ---
Demographics + + + | Address | [address] | | | [place] [address] | + + + | Home Phone | | + + + | Preferred Language | Unknown | + + + | Marital Status | | + + + | Hoahaoism Affiliation | 1013 | + + + | Race | or Other | + + + | Ethnic Group | Not or | + + + Author + + + | Author | [facility] | | | and Shahram | + + + | Organization | [facility] | | | and [place] [...] Team Providers + +------+ + | Care Commutator Assembler Name | Role | Phone | [...] + + | 11/20/ | Telephone | [facility] | Erlinda Baptiste RN | Other | | 2019 | | [facility] | | | | | | [facility] [address] | | | | | | [address] | | | | | | [place] [address] | | | | | | [phone] | | | +--------+ + + + [...]
--- OUTSIDE RECORDS SUMMARY | ~2020-06-29 | XMS | Encounter Summary ---
Demographics + + + | Address | [address] | | | [place] [address] | + + + | Home Phone [...] Team Providers + +------+ + | Care Appraiser Irrigation Tax Name | Role | Phone | + +------+ + | Lissette Martinez PA-C | PCP | | + +------+ + Reason for Visit + +--------+ + | Reason | Onset | Comments | | | Date | | + +--------+ + | Appointment | 06/05/ | In Hospital | | Cancelled By Patient | 2020 | | + +--------+ + Encounter Details +--------+ + + + + | Date | Type | Department | Care Team | Description | +--------+ + + + + | 06/05/ | Telephone | [facility] | Lissette Jones, | Appointment | | 2019 | | Clinics at S | [place] [address] [address] | Cancelled By Patient | | | | [facility] [address] | (In Hospital) | | | | [facility] for | [place], [place] | | | | | Health and [facility], | [address] | | | | | Building [address] | [phone] | | | | | [place], [place] | | | | | | [address] | | | | | | [phone] | | | +--------+ + + + [...] Notes Telephone Encounter - Anai Jimenez - 06/11/2020 10:35 AM PDTTeam Coordinator Documentatio n: Subject: Note TC: Received ov notes/ labs from [facility]. All medical records uploaded to patients me kacie tab. -->Note to RNC: HOMA elephone Encounter - Anai Toribio - 06/08/2020 4:11 PM PDTTeam Coordinator Documentation: Subject: Note TC: Faxed medical record request to [facility]- will update when records are obtained -->Note to RNC: Liveectronically signed by Anai Jimenez at 06/08/2020 4:12 PM PDTTequoc tierney Encounter - Ashlee Holley RN - 06/08/2020 3:[address] [facility]. Per them, Pt staci ramos on 06/05. Encounter to request records including notes, labs, reports and images by faxing request to [phone] Call to Pt to check in after discharge. No answer and mailbox full. Call to sister, William. Per her, Pt is doing better, and is currently out running errands wit h granddaughter. Advised William that we tried to call Pt but her VM is full. She will ask Pt t o call back but will likely be after we close. Advised her Thursday is ok since we are primari ly just checking in on her and she will be following up with Dr. Beard. William stated underst anding, said she would relay this to Pt. and has no further questions at this time. elephone Encounter - Ashlee Joyce RN - 06/08/2020 3:41 PM PDTPer other encounter, Dr. Beard to follow after discha rge and manage dex. See 06/[address] Beard. elephone Encounter - Sara Horan - 06/05/2020 2 :50 PM PDTCall transferred from [place] SHAHZAD Atkins at [facility] ED in [place] calling in requesting to speak with Dr.V mcgraw. When PAS stated would get to Physician Consult Line to page , stated that he had to go and disconnected call before PAS could get call back number or transfer to cons ult line Routing to RNC as FYI el ephone Encounter - Malathi Navas RN - 06/05/2020 2:26 PM PDTI called patient sister and LVM that we are concerned about Tila. Asked William to call our office when knows what is going on and Tila doing better. elephone Encounter - Carlo Woods - 06/05/2020 12:25 PM PDTPatient's sister William calls, reports that the patient i s in the ER and will not make her appointment at 12:45 pm today. Routing to RNC and MD docum ented in this encounter Plan of Treatment Not on filedocumented as of this encounter Visit Diagnoses Not on filedocumented in this encounter"
--- OUTSIDE RECORDS SUMMARY | ~2020-06-29 | XMS | Encounter Summary ---
Demographics + + + | Address | [address] | | | [place] [address] | + + + | Home Phone [...] Providers + +------+ + | Care Public Information Coordinator Name | Role | Phone | [...] | | | | | metastases | [address] | | | | | | ([facility]) | [place] | | | | | | Procedures | Digna Sanches | | | | | | CONSULT TO | [place], [place] | | | | | | NEUROLOGY | [address] | | | | | | | Phone: | | | | | | | [phone] | | | | | | | Fax: | | | | | | | [phone] | | + +--------+ + + + + Encounter Details +--------+ + + + + | Date | Type | Department | Care Team | Description | +--------+ + + + + | 06/06/ | Telephone | Radiation Oncology | Antwon Beard, | | | 2020 | | at [facility] [address] | [address] [facility] | | | | | [place] [address] [place] | [facility] | | | | | [place], [facility] floor | [place], [place] | | | | | [place], [place] | [address] | | | | | [address] | [phone] | | | | | [phone] | | | +--------+ + + + [...] of her dexamethasone. elephone Encounter - Hemanth Campblel RN - 06/07/2020 4:47 PM PDTCalled patient [...] referral to be faxed to Neurology at [facility] in [place], [place]. Will place referral and Promise ZAMUDIO [...] patient aware that [place] is not a [place] medication. Note: Dr. Jones is aware of [...] a neurologist he would recommend in the [facility]? -- Neuro referral would be great. I [...] Sister called 911. Patient was taken to [facility] in [place], [place] Pt says she was DC'd within [...] patient aware that dexamethasone is not a [place] medication. Note: Dr. Jones is aware of [...] a neurologist he would recommend in the [facility]? Plan: Will route to Dr. Beard and [...]
--- OUTSIDE RECORDS SUMMARY | ~2020-06-29 | XMS | Encounter Summary ---
Demographics + + + | Address | [address] | | | [place] [address] | + + + | Home Phone [...] Team Providers + +------+ + | Care Cost Manager Name | Role | Phone | + +------+ + | Lissette Martinez PA-C | PCP | | + +------+ + Encounter Details +--------+ + + + + | Date | Type | Department | Care Team | Description | +--------+ + + + + | 04/17/ | MyChart | [facility] | Lissette Jones, | Rx refill | | 2019 | Encounter | Clinics at S | [place] [address] [address] | | | | | [facility] [address] | | | | | [facility] for | [place], [place] | | | | | Health and Healing, | [address] | | | | | [address] | [phone] | | | | | [facility] [place] | | | | | | [address] | | | | | | [phone] | | | +--------+ + + + [...] this encounter Miscellaneous Notes Telephone Encounter - Sara Horan - 04/20/2020 2:56 PM PDTPatient left voicemail at 1 :23pm Patient states she sent message on 04/17 concerning a need for refill but has not heard back and she will run out of medication tomorrow (does not specify med in vm). Requests call back to . [phone] Routing to RNC / MD (Urgent due to patient reporting medication tomorrow)Electronically sig sharifa by Sara Horan at 04/20/2020 2:59 PM PDTTelephone Encounter - Chinchilla DouglasSAMSON poe - 04/17/2020 4:15 PM PDT Last appointment with Lissette Jones MD was on 03/12/2020. Next appointment with Lissette Jones MD is scheduled on 04/23/2020. Last LIP progress note reviewed. Is there documentation to indicate that medication being r equested has been changed or discontinued? No Allergy list reviewed--Is the medication being requested on the patient's current allergy l ist? No Previous Prescription Details copied below: Date and Time Department Ordering/Authorizing 03/19/2020 5:25 PM [facility] Lissette Jones MD Outpatient Medication Detail Disp Refills oxyCODONE (immediate release) 5 mg oral tablet 120 tablet 0 Sig: Take 1 tablet by mouth every four hours as needed. Sent to pharmacy as: oxyCODONE 5 mg tablet (ROXICODONE) Class: eRx Earliest Fill Date: 03/19/2020 Route: oral Order: [id number] E-Prescribing Status: Receipt confirmed by pharmacy (03/19/2020 5:25 PM PDT) Start Date Earliest Fill Date Mar 19, 2020 Mar 19, [address] [facility] policy, routing encounter to [facility] for review and approval elephone Encounter - Ariana Montes RN - 0 04/17/2020 3:49 PM [facility]TRouted to [facility] documented in this encounter Plan of Treatment Not on filedocumented as of this encounter Visit Diagnoses Not on filedocumented in this encounter"
--- OUTSIDE RECORDS SUMMARY | ~2020-06-29 | XMS | Encounter Summary ---
Demographics + + + | Address | [address] | | | [place] [address] | + + + | Home Phone [...] | Author | [facility] | + + + | Organization | [facility] | + + + | Address | Unknown | + + + | Phone | Unavailable | + + + Support + + +---------+ + | Name | Relationship | Address | Phone | + + +---------+ + | William Talavera | ECON | Unknown | | + + +---------+ + Care Team Providers + +------+ + | Care Senior Clinical Data Manager Name | Role | Phone | + +------+ + | Lissette Martinez PA-C | PCP | | + +------+ + Reason for Visit + +--------+ + | Reason | Onset | Comments | | | Date | | + +--------+ + | Lab Results | 09/20/ | K and TSH | | | 2020 | | + +--------+ + Encounter Details +--------+ + + + + | Date | Type | Department | Care Team | Description | +--------+ + + + + | 09/20/ | Telephone | [facility] | Lissette Jones, | Lab Results (K and | | 2019 | | Clinics at S | [place] [address] | TSH) | | | | [facility] [address] | | | | | [facility] | [place], [place] | | | | | Health and Healing, | [address] | | | | | [facility] 2 | [phone] | | | | | [place], [place] | | | | | | [address] | | | | | | [phone] | | | +--------+ + + + [...] this encounter Miscellaneous Notes Telephone Encounter - Guanako Joseph - 09/22/2019 1:13 PM PSTTeam Coordinator Documentat ion: Subject: Note TC: Lab results faxed off as requested. -->Note to RNC: HOMA elephone Encounter - Niesha Montemayor RN - 09/20/2019 3:57 PM PSTCall to Tila at Dr. Jones's request. Notified her of normal K level and that there is no need to take Kayexalate. I also inquired as to who is managing her thyroid function as TSH and Free T4 are abnormal. She reports Christine Martinez is managing. I let her know I have released the results for her review in [facility], but we will also fax the labs to Ms. Martinez for follow up. We discussed that immune therapy can affect thyroid function, but this result is not d/t tr eatment. We will continue to monitor the levels. Routing to . documented in this enc ounter Plan of Treatment Not on filedocumented as of this encounter Visit Diagnoses Not on filedocumented in this encounter"
--- OUTSIDE RECORDS SUMMARY | ~2020-06-29 | XMS | Encounter Summary ---
Demographics + + + | Address | [address] | | | [place] [address] | + + + | Home Phone [...] Team Providers + +------+ + | Care Clam Digger Name | Role | Phone | + +------+ + | Lissette Martinez PA-C | PCP | | + +------+ + Encounter Details +--------+ + + + + | Date | Type | Department | Care Team | Description | +--------+ + + + + | 10/07/ | Terrazzo Polisher Helper | [facility] | Lissette Jones, | | | 2019 | | Clinics at S | [place] [address] | | | | | [facility] [address] | | | | | [facility] for | [place], [place] | | | | | Health and Healing, | [address] | | | | | [address] | [phone] | | | | | [place], [place] | | | | | | [address] | | | | | | [phone] | | | +--------+ + + + [...]
--- OUTSIDE RECORDS SUMMARY | ~2020-06-29 | XMS | Encounter Summary ---
Demographics + + + | Address | [address] | | | [place] [address] | + + + | Home Phone | | + + + | Preferred Language | Unknown | + + + | Marital Status | Single | + + + | Mandaen Affiliation | CHR | + + + [...] Team Providers + +------+ + | Care Prompt Care Rn Name | Role | Phone | + +------+ + | Lissette Martinez PA-C PCP | | + +------+ + Encounter Details +--------+--------+ + + + | Date | Type | Department | Care Team | Description | +--------+--------+ + + + | 09/12/ | Travel | | | | | [...]
--- OUTSIDE RECORDS SUMMARY | ~2020-06-29 | XMS | Encounter Summary ---
Demographics + + + | Address | [address] | | | [place] [address] | + + + | Home Phone [...] Author + + + | Author | [facility] | + + + | Organization | [facility] | + + + | Address | Unknown | + + + | Phone | Unavailable | + + + Support + + +---------+ + | Name | Relationship | Address | Phone | + + +---------+ + | William Talavera | ECON | Unknown | | + + +---------+ + Care Team Providers + +------+ + | Care District Home Economics Agent Name | Role | Phone | + +------+ + | Lissette Martinez PA-C | PCP | | + +------+ + Reason for Visit + +--------+ + | Reason | Onset | Comments | | | Date | | + +--------+ + | Radiology Order | 02/12/ | | | | 2020 | | + +--------+ + Encounter Details +--------+ + + + + | Date | Type | Department | Care Team | Description | +--------+ + + + + | 02/12/ | Telephone | [facility] | Lissette Jones, | Radiology Order | | 2020 | | Clinics at S | [place] [address] [address] | | | | | [facility] [address] | | | | | [facility] for | [place], [place] | | | | | Health and [facility], | [address] | | | | | [place] [address] | [phone] | | | | | [place], [place] | | | | | | [address] | | | | | | [phone] | | | +--------+ + + + [...] Notes Telephone Encounter - Anai Jimenez - 02/16/2020 1:40 PM PDTTeam Coordinator Documentatio n: Subject: Note TC: Called and LV to let patient know that orders were received and that she needs to call the [facility] to schedule her CT scan. Will call patient back in a coup le of hours if she does not call back -->Note to RNC: HOMA elephone Encounter - Anai Toribio - 02/14/2020 4:06 PM PDTTeam Coordinator Documentation: Subject: Note TC: Faxed CT order to [facility] Will call them to follow up tomorrow to remind them to schedule patient (they did not reach out to patient last time) -->Note to RNC: HOMA elephone Encounter - Lito Dumont - 02/14/2020 1:27 PM PDTCall to patient, is asking to find out if insurance wi ll give clearance to have scans done local as she would rather not have ot make the drive up to [place] unless insurance does not give authorization. Can we get auth for local scans and notify legal records clerk once approval has come through?Electro nically signed by Lito Keyes at 02/14/2020 1:29 PM PDTTelephone Encounter - Khushboo Jimenez - 02/14/2020 12:19 PM PDTTeam Coordinator Documentation: Subject: Note TC: [facility] messaged back "location updated" for patients CT scan order. Routing to Dr. Jones/ Philip PRATT/ Mike legal records clerk to have patient scheduled for CT scan -->Note to RNCasey: HOMA elephone Encounter - Anai Toribio - 02/13/2020 10:57 AM PDTTeam Coordinator Documentation: Subject: Note TC: Sent [employer] message to retrieve auth for [facility], will update when [employer] messages back -->Note to RNC: Homa documented in this encount er Plan of Treatment Not on filedocumented as of this encounter Visit Diagnoses Not on filedocumented in this encounter
--- OUTSIDE RECORDS SUMMARY | ~2020-06-29 | XMS | Encounter Summary ---
Demographics + + + | Address | [address] | | | [place] [address] | + + + | Home Phone [...] Providers + +------+ + | Care Manager In Home Name | Role | Phone | + [...] + + + | Authorized | | Radiology | Diagnoses | Vuky, | External | | | | | Renal cell | Lissette | Order | | | | | carcinoma [place] | [place] [address] [address] | | | | | | left kidney | [place] | | | | | | (HCC) | Ct | | | | | | Procedures | ELIZABETH, | | | | | | CT CHEST, | [place] | | | | | | ABDOMEN AND | [address] | | | | | | PELVIS W IV | Phone: | | | | | | CONTRAST NH | [phone] | | | | | | CAT SCAN OF | Fax: | | | | | | CHEST | [phone] | | | | | | CONTRAST NH | | | | | | | CT | | | | | | | ABDOMEN&PELV | | | | | | | IS | | | | | | | W/CONTRAST | | | + +--------+ + + + + Reason for Visit + +--------+ + | Reason | Onset | Comments | | | Date | | + +--------+ + | Care Coordination | 04/25/ | | | | 2020 | | + +--------+ + Encounter Details +--------+ + + + + | Date | Type | Department | Care Team | Description | +--------+ + + + + | 04/25/ | Telephone | [facility] | Lissette Jones, | Care Coordination | | 2020 | | Clinics at S | [place] [address] [address] | | | | | [facility] [address] | | | | | [facility] for | [place], [place] | | | | | Health and Healing, | [address] | | | | | [facility] 2 | [phone] | | | | | [place], [place] | | | | | | [address] | | | | | | [phone] | | | +--------+ + + + [...] Notes Telephone Encounter - Anai Jimenez - 05/29/2020 11:44 AM PDTTeam Coordinator Documentatio n: Subject: Note TC: Armindaxed CT order to [facility], will update when patients completes CT and r eport is obtained w/ images -->Note to RNC: HOMA elephone Encounter - Lito Dumont - 05/09/2020 3:33 PM PDTCall to patient, agreed to scheduled virtual with MD crescencio sewell 05/15 @ 12:20 pm. HOMA. e lephone Encounter - Jessica Paiz - 05/08/2020 11:02 AM PDTamber w/ [facility] w dr myles calling in states their MD would like pt to be seen sooner than 06/26 b/c "pt isnt do ing very well" LIZZ calles'meaghan Certified Nutritionist but Certified Nutritionist adv she does not have say and req PAS to route MD / RNC yonny Fritz very agreeable to call back PAS confirmed call back ph# [phone] Routing to RNC / elephon e Ness - Anai Jimenez - 05/01/2020 2:01 PM PDTTeam Coordinator Documentation: Subject: Note TC: [facility] responded "The website is still not showing the finalized auth number. I called Sukumar and was able to confirm full approval with complete authorization number. I have updated the shell, Pt is all set to proceed. Thank you." Post-poning encounter to fax CT order mid-May for patients f/u in June -->Note to RNC: HOMA elephone Encounter - Theodora claraAnai - 04/26/2020 3:31 PM PDTTeam Coordinator Documentation: Subject: Note TC: Sent message to [facility] to obtain authorization, will update when [facility] responds -->Note to RNC: HOMA elephone Encounter - W[place] on, Tess Sewell MA - 04/25/2020 2:47 PM PDTFormatting of this note might be different from t silva original. From [place] 04/23: MD Eden Roberts [place] [facility] Pool; P Hem [place] Schedule Please schedule CT in 06/2020 [facility] [place], [place] Phone/virtual visit with me after that Lab ordered and faxed to [facility] in [place], [place] . CT ordered, TC p lease auth and fax (due 06/2020). [employer] message sent to pt. documented in this encounter Plan of Treatment + +---------+--------+ + + | Name | Type | Priori | Associated Diagnoses | Order Schedule | | | | ty | | | + +---------+--------+ + + | CT CHEST, ABDOMEN | Imaging | Routin | Renal cell | Expected: 06/07/2020 | | AND PELVIS W IV | | e | carcinoma of left | (Approximate), | | CONTRAST | | | kidney (HCC) | Expires: 05/26/2021 | + +---------+--------+ + + | COMPLETE METABOLIC | Lab | Routin | Renal cell | Expected: 05/14/2020 | | SET | | e | carcinoma of left | (Approximate), | | (NA,K,CL,CO2,BUN,CRE | | | kidney (HCC) | Expires: 05/26/2021 | | AT,GLUC,CA,AST,ALT,B | | | | | | MARTIN TOTAL,ALK | | | | | | PHOS,ALB,PROT TOTAL) | | | | | + +---------+--------+ + + documented as of this encounter Visit Diagnoses + + | Diagnosis | + + | 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) - Primary | + + documented in this encounter
--- OUTSIDE RECORDS SUMMARY | ~2020-06-29 | XMS | Encounter Summary ---
Demographics + + + | Address | [address] | | | [place] [address] | + + + | Home Phone [...] Team Providers + +------+ + | Care Mail Rider Name | Role | Phone | + [...] | Radiology | Diagnoses | Vuky, | [place] | | | | | Kidney | Lissette, | [facility] & | | | | | cancer, | [address] | [employer] | | | | | primary, | [place] | [address] [facility] | | | | | with | Ct | [place]MANU[place] REILLY | | | | | metastasis | [place], | ROAD | | | | | from kidney | [place] | [place], [place] | | | | | to other | [address] | [address] | | | | | site, left | Phone: | Phone: | | | | | (HCC) | [phone] | [phone] | | | | | Procedures | Fax: | | | | | | CT CHEST, | [phone] | | | | | | ABDOMEN AND | | | | | | | PELVIS W IV | | | | | | | CONTRAST | | | + +--------+ + + [...] neoplasm of | E, [place] | [place] [address] [address] | | | | | unspecified | [place] | [address] | | | | | kidney, | Family | [place], | | | | | except renal | Medicine | [place] [address] | | | | | pelvis | [address] | Phone: | | | | | Procedures | [address] | [phone] | | | | | [place] NEW | [place], | Fax: | | | | | PATIENT | [place] [address] | [phone] | | | | | LEVEL V [place] | Phone: | | | | | | EST PATIENT | [phone] | | | | | | LEVEL V | Fax: | | | | | | | [phone] | | + +---------+ + + + + Encounter Details +--------+ + + + + | Date | Type | Department | Care Team | Description | +--------+ + + + + | 06/26/ | Video/TeleH | [facility] | Lissette Jones, | | | 2019 | ealth-Sched | Clinics at S | [place] [address] [address] | | | | uled | [facility] [address] | | | | | [facility] for | [place], [place] | | | | | Health and Healing, | [address] | | | | | Building [address] | [phone] | | | | | [place], [place] | | | | | | [address] | | | | | | [phone] | | | +--------+ + + + [...] encounter Progress Notes Lissette Jones MD - 06/26/2020 9:40 AM PDTFormatting of this note might be different fr om the original. The visit took place via secure, synchronous audio and video technology with the provider v irtually located at the distant site of [facility]. The patient stated they were located at the [facility] site of home and were in the state of [place] at the time of the virtual visit. The n da of all additional persons participating in the virtual visit and their roles are: shiv alvares. I have spent a total of 32 minutes on this patient's care today. This time includes the vi rtual visit [id number] time with the patient as well as time spent reviewing patient recor ds, coordinating/communicating with care teams and documenting the patient visit. FOLLOW-UP NOTE Patient: Tila Altman Date: 06/26/2020 : 1965 AGE: 54 y.o. Attending Physician: [...] to L frontal brain metastases completed 03/07/2020 Admitted 06/2020 for seizures Cabozantinib- 03/30/2020 Multiple doses held due dehydration Decreased dose to 20mg 04/23/2020 MRI 04/19/2020 L frontal gyrus tumor 2.3 cm Interval History Tila returns today for follow up visit. She wants to have CT prior to due to concern for traveling to [place] and to coordinate with Dr. Beard's appitment. She feels "puffy" in face although she stopped taking decadron 04/23. She's also putting out less urine in past 1-2 days. She's taking keppra and hasn't experienced another seizure since hospital ization. She plans on RT with Dr. Beard end of 06/2020. She can walk without a walker, she reports "feeling pretty good". She's not up and about because there's nothing to do but was able to go to a baseball game and walks every day with her sister. Impression/Plan Tila Altman is a 54 y.o. [...] might be pneumonitis, but progression in liver Cabozantinib initiated at lower dose 40mg given current performance status- complains of an orexia (lack of appetite), fatigue and weight loss MRI brain 04/19/2020- 2.7x 2.2x 2.7 cm hemorrhagic metastases on L, mild edema, no new lesio ns, repeat MRI in 2 months Resume cabo 20mg po qday, I reviewed scan from OSH- liver lesions likely progressed (I was not able to directly compare) and primary renal cell stable Seizure x 2 in , off decadron, on keppra and planning RT with Dr. Beard ([facility]) Next CT scan should be done at [facility] 07/2020(before ); she wants to coordinate w [facility] Dr. Beard Medications: Current Outpatient Medications Medication Sig apixaban 5 mg oral tablet Take 1 tablet by mouth two times daily. cabozantinib 20 mg oral tablet Take 20 mg by mouth once daily. cholecalciferol 50,000 unit oral capsule Take 1 capsule by mouth every seven days. Simi cations: vitamin D deficiency (high dose therapy) dexAMETHasone 2 mg oral tablet furosemide (LASIX) 20 mg oral tablet Take 1 tablet by mouth once daily. (Patient taking differently: Take 20 mg by mouth as needed. Patient says she takes this as needed will talk with Dr. Jones about this.) Iron, Carbonyl 45 mg elemental oral tablet Take by mouth. levETIRAcetam 500 mg oral tablet Take 500 mg by mouth two times daily. levothyroxine 100 mcg oral tablet Take 1 [...] visit. Latest known visit with results is: Video/TeleHealth-Scheduled on 05/22/2020 Component Date Value GENETRAILS COMPREHENSIVE* 08/16/2019 See Interpretation. SAMPLE TESTED 08/16/2019 Value:This result contains rich text formatting which cannot be displayed here. INTERPRETATION 08/16/2019 Value:This result contains rich text formatting which cannot be displayed here. DNA SUMMARY 08/16/2019 Value:This result contains rich text formatting which cannot be displayed here. RNA SUMMARY 08/16/2019 Value:This result contains rich text formatting which cannot be displayed here. DISCLAIMER 08/16/2019 Value:This result contains rich text formatting which cannot be displayed here. Lissette Jones MD d ocumented in this encounter Plan of Treatment + +---------+--------+ + + | Name | Type | Priori | Associated Diagnoses | Order Schedule | | | | ty | | | + +---------+--------+ + + | CT CHEST, ABDOMEN | Imaging | Routin | Kidney cancer, | Expected: | | AND PELVIS W IV | | e | primary, with | 06/26/2020, Expires: | | CONTRAST | | | metastasis from | 07/27/2021 | | | | | kidney to [...]
--- OUTSIDE RECORDS SUMMARY | ~2020-06-29 | XMS | Encounter Summary ---
Demographics + + + | Address | [address] | | | [place] [address] | + + + | Home Phone [...] Providers + +------+ + | Care Auto Tester Name | Role | Phone | [...] Pharmacy | | | | | | [address] | | | | | | Loop [place], [place] | | | | | | [address] | | | | | | [phone] | | | +--------+ + + + [...]
--- OUTSIDE RECORDS SUMMARY | ~2020-06-29 | XMS | Encounter Summary ---
Demographics + + + | Address | [address] | | | [place] [address] | + + + | Home Phone [...] Author + + + | Author | [facility] | | | and Shahram | + + + | Organization | [facility] | | | and [...] Providers + +------+ + | Care Floor Scrubber Name | Role | Phone | + [...] | | | [address] | [place] [address] | | | | | [place] [address] | | | | | | [phone] | | | +--------+ + + + [...]
--- OUTSIDE RECORDS SUMMARY | ~2020-06-29 | XMS | Encounter Summary ---
Demographics + + + | Address | [address] | | | [place] [address] | + + + | Home Phone [...] + + + | Author | [facility] | + + + | Organization | [facility] | + + + | Address | Unknown | + + + | Phone | Unavailable | + + + Support + + +---------+ + | Name | Relationship | Address | Phone | + + +---------+ + | William Talavera | ECON | Unknown | | + + +---------+ + Care Team Providers + +------+ + | Care Case Investigator Name | Role | Phone | + +------+ + | Lissette Martinez PA-C | PCP | | + +------+ + Encounter Details +--------+ + + + + | Date | Type | Department | Care Team | Description | +--------+ + + + + | 01/08/ | Procedure | Radiology/Imaging | | | | 2019 | Pass | Lab at [facility] [address] | | | | | | [facility] | | | | | | Health and Healing, | | | | | | [address] | | | | | | [place], [place] | | | | | | [address] | | | | | | [phone] | | | +--------+ + + + [...]
--- OUTSIDE RECORDS SUMMARY | ~2020-06-29 | XMS | Encounter Summary ---
Demographics + + + | Address | [address] | | | [place] [address] | + + + | Home Phone [...] Team Providers + +------+ + | Care Balance Engineer Name | Role | Phone | [...]
--- OUTSIDE RECORDS SUMMARY | ~2020-06-29 | XMS | Encounter Summary ---
Demographics + + + | Address | [address] | | | [place] [address] | + + + | Home Phone [...] Team Providers + +------+ + | Care Surgical Resident Name | Role | Phone | [...] | | | carcinoma [place] | [place] [address] [address] | [facility] [address] | | | | | left kidney | [place] [address] | | | | | (HCC) | Ct | Center for | | | | | Procedures | [facility] and | | | | | PA INJ | [place] | Healing, | | | | | NIVOLUMAB 1 | [address] | Building 2 | | | | | MG PA | Phone: | [place], [place] | | | | | CHM,IV | [phone] | [address] | | | | | INFSN,1 HR | Fax: | Phone: | | | | | PA CHM,IV | [phone] | [phone] | | | | | INFSN,ADDL | | Fax: | | | | | HR | | [phone] | | | | | nivolumab | [...] Encounter | Clinics at S | [address] [place], [place] | | | | | [facility] [address] | [address] | | | | | [address] [facility] | | | | | | Health and Healing, | | | | | | Building [address] | | | | | | [place], [place] | | | | | | [address] | | | | | | [phone] | | | +--------+ + + + [...] as of this encounter Progress Notes Gabriela Meelndez RN - 02/13/2020 10:30 AM PDTChemotherapy Nurse [...] this time. Vascular Access: PIV placed by SUPERVISOR LEAD BURNING - IVT 22 gauge - positive blood return Per Orders: For Treatment Done in Clinic Today: see MAR Labs results reviewed and met protocol parameters. Order from Dr Jones in chart to proceed w [facility] treatment today. Pre-medications of Pepcid , Benadryl [...] | | | | | | | 02/13/20 at 1030, Administer | | | | | | | through a low protein binding | | | | | | | 0.22 micron in-line filter., | | | | | | + +---------+ +--------+-------+---+ +---+---+ | | | +---+---+ documented in this encounter"
--- OUTSIDE RECORDS SUMMARY | ~2020-06-29 | XMS | Encounter Summary ---
Demographics + + + | Address | [address] | | | [place] [address] | + + + | Home Phone [...] Team Providers + +------+ + | Care Domain Architect Name | Role | Phone | + +------+ + | Lissette Martinez PA-C | PCP | | + +------+ + Encounter Details +--------+ + + + + | Date | Type | Department | Care Team | Description | +--------+ + + + + | 05/29/ | MyChart | Neurosurgery at | Stephanie Bustos MD | Provider Departure | | 2020 | Encounter | [facility] [address] | [address] | | | | | [facility] for | [facility] | | | | | Health and Healing, | [place], [place] | | | | | | [address] | | | | | floor [place], [place] | [phone] | | | | | [address] | | | | | | [phone] | | | +--------+ + + + [...]
--- OUTSIDE RECORDS SUMMARY | ~2020-06-29 | XMS | Encounter Summary ---
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, | [place] | | | | | cancer of | [place] [address] | [place], | | | | | bone (HCC) | [address] | [place] [address] | | | | | Metastatic | [place], | Phone: | | | | | renal cell | [place] [address] | [phone] | | | | | carcinoma, | Phone: | Fax: | | | | | unspecified | [phone] | [phone] | | | | | laterality | Fax: | | | | | | (HCC) | [phone] | | | | | | Procedures [...] CTR RADIATION | MD Khushboo [address] | cell carcinoma, | | | | [facility] [address] | [place], [place] | unspecified | | | | [facility] | [address] | laterality (HCC) | | | | [place] [address] | | (Primary Dx); | | | | [phone] | | Secondary cancer of | | [...]
--- OUTSIDE RECORDS SUMMARY | ~2020-06-29 | XMS | Encounter Summary ---
Demographics + + + | Address | [address] | | | [place] [address] | + + + | Home Phone [...] Team Providers + +------+ + | Care Envelope Folding Machine Adjuster Name | Role | Phone | + +------+ + | Lissette Martinez PA-C | PCP | | + +------+ + Encounter Details +--------+ + + + + | Date | Type | Department | Care Team | Description | +--------+ + + + + | 02/23/ | MyChart | Diagnostic Imaging | | MRI Screening Form | | 2020 | Encounter | Services [address] | | | | | | [address] | | | | | | [place], [place] | | | | | | [address] | | | +--------+ + + + [...]
--- OUTSIDE RECORDS SUMMARY | ~2020-06-29 | XMS | Encounter Summary ---
Demographics + + + | Address | [address] | | | [place] [address] | + + + | Home Phone | | + + + | Preferred Language | Unknown | + + + | Marital Status | Single | + + + | Lutheran Affiliation | CHR | + + + [...] Team Providers + +------+ + | Care Monorail Hooker Name | Role | Phone | + [...] | | | | | [place], | | | | | | [place] [address] | | | +--------+--------+ + + + [...]
--- OUTSIDE RECORDS SUMMARY | ~2020-06-29 | XMS | Encounter Summary ---
Demographics + + + | Address | [address] | | | [place] [address] | + + + | Home Phone [...] Team Providers + +------+ + | Care Concession Stand Attendant Name | Role | Phone | [...] + + | 03/12/ | Clinical | Laboratory at [facility] | | Lab Draw | | 2020 | Support | [address] | | | | | Staff | [facility] | | | | | | and Healing, | | | | | | [address] | | | | | | [place], [place] | | | | | | [address] | | | | | | [phone] | | | +--------+ + + + [...] + documented as of this encounter Progress Anisa Palmer, MISAEL - 03/12/2020 9:00 AM PDTPatient ambulatory to Phlebotomy lab. After one failed attempt by this RN. 24 gauge PIV placed in patient s left forearm, using an IV start kit. PIV with scant blood return, flushes without difficulty.PIV flushed with 40 mL NS without any problems. Sterile transparent dressing applied. Patient tolerated proc edure well. Right AC accessed with a 23 gauge butterfly needle. Labs drawn and sent. Tolerated proced ure well. Site dressed with sterile gauze and Coban. Patient d/c'd to remaining appointments. documented in this encoun ter Plan of [...] | | | | PDT | kidney ([facility]) | results section. | + +--------+ + + + | [facility] - COMPLETE | Routin | 03/12/2020 | Renal cell | Results for this | | METABOLIC SET | e | 9:13 AM | carcinoma of left | procedure are in the | | | | PDT | kidney ([facility]) | results section. | + +--------+ + + + | FREE T4 | Routin | 03/12/2020 | Renal cell | Results for this | | | e | 9:13 AM | carcinoma of left | procedure are in the | | | | PDT | kidney ([facility]) | results section. | + +--------+ + + + | TSH | Routin | 03/12/2020 | Renal cell | Results for this | | | e | 9:13 AM | carcinoma of left | procedure are in the | | | | PDT | kidney (HCC) | results section. | + +--------+ + + + documented in this encounter Results FREE T4 (03/12/2020 9:13 AM PDT) + [...] | + + + + + | [facility] | [address] | [place] [address] | | | SERVICES, CORE | PARK [...] [facility] | [address] | [place] [address] | | | SERVICES, CORE | [address] | | | + + + + + [facility] - COMPLETE METABOLIC SET (03/12/2020 9:13 AM PDT) + +---------+ + [...] SERVICES, | | | | | | [facility] | | | | | | HEALTH [...] | | | LABORATORY | | | [place] | | | SERVICES, | | | [...] MDRD equation recommended by the National | [facility] | | Kidney Disease Education Program. Estimated [...] | + + + + + | [facility] | [address] | [place] [address] | | | SERVICES, [facility] | | | | | HEALTH + HEALING | | | | + + + + + CBC AND AUTO DIFF - [facility] (03/12/2020 9:13 AM PDT) + + + + + [...] | included in the neutrophil count. 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
--- OUTSIDE RECORDS SUMMARY | ~2020-06-29 | XMS | Encounter Summary ---
Demographics + + + | Address | [address] | | | [place] [address] | + + + | Home Phone [...] Team Providers + +------+ + | Care Palliative Care Specialist Name | Role | Phone | [...] | | | | | cancer, | [address] | [address] [facility] | | | | | primary, | [place] | [facility] | | | | | with | Ct | Rd | | | | | metastasis | [place], | [place], [place] | | | | | from kidney | [place] | [address] | | | | | to other | [address] | Phone: | | | | | site, left | Phone: | [phone] | | | | | ([facility]) | [phone] | Fax: | | | | | Procedures | Fax: | [phone] | | | | | CONSULT TO | [phone] | | | | | | NEUROSURGERY | | | | | | | CT NEW | | | | | | | PATIENT | | | | | | | LEVEL V CT | | | | | | [...] | [facility] [address] | [address] [facility] | | | | | [facility] for | [facility] | | | | | Health and Healing, | [place], [place] | | | | | Building | [address] | | | | | floor [place], [place] | [phone] | | | | | [address] | | | | | | [phone] | | | +--------+ + + + [...] new seizure. A stroke evalu ation at [place] ED discovered a hemorrhagic mass in the [...] tumor control woul d likely be equivalent tank terminal gauger with or without surgical resection given the [...] provider located at the distant site of [facility]. T he patient stated they were located at the originating site of home and were in the state of [place] at the time of the telephone visit. The names of all persons participating in the cesar jurado visit and their roles are: myself and the patient Ms. Tila Altman. The patients encounter was accomplished via a telephone call today due to COVID-19 precauti onary measures to limit the patient's unnecessary exposure. Stephanie Bustos MD Trolley Car Operator Department of Neurological Surgery Surgical Co-director, Neuro-Oncology Clinical Research [facility] documented in this encounter Plan of Treatment Not on filedocumented as of this encounter Visit Diagnoses + + | Diagnosis | + + | Brain tumor (HCC) - Primary Neoplasm of unspecified nature of brain | + + documented in this encounter"
--- OUTSIDE RECORDS SUMMARY | ~2020-06-29 | XMS | Encounter Summary ---
Demographics + + + | Address | [address] | | | [place] [address] | + + + | Home Phone | | + + + | Preferred Language | Unknown | + + + | Marital Status | Single | + + + | Latter Day Affiliation | CHR | + + + [...] Team Providers + +------+ + | Care Account Analyst Name | Role | Phone | [...] | | | | | Digna Sanches [place], | | | | | | [place] [address] | | | +--------+--------+ + + + [...]
--- OUTSIDE RECORDS SUMMARY | ~2020-06-29 | XMS | Encounter Summary ---
Demographics + + + | Address | [address] | | | [place] [address] | + + + | Home Phone [...] Author + + + | Author | [facility] | + + + | Organization | [facility] | + + + | Address | Unknown | + + + | Phone | Unavailable | + + + Support + + +---------+ + | Name | Relationship | Address | Phone | + + +---------+ + | William Talavera | ECON | Unknown | | + + +---------+ + Care Team Providers + +------+ + | Care Legal File Clerk Name | Role | Phone | [...] + + | 11/20/ | Office | [facility] | KarenLissette, | Renal cell | | 2020 | Visit | Clinics at S | [place] [address] [address] | carcinoma, | | | | [facility] [address] | unspecified | | | | [facility] for | [place], [place] | laterality (HCC) | | | | Health and Healing, | [address] | (Primary Dx) | | | | [place] [address] | [phone] | | | | | [place], [place] | | | | | | [address] | | | | | | [phone] | | | +--------+---------+ + + + [...] speech. Appropriate mood/affect. Laboratory: LAB RESULTS: Clinical Offset Assistant Press Operator on 11/21/2019 Component Date Value WHITE CELL [...]
--- OUTSIDE RECORDS SUMMARY | ~2020-06-29 | XMS | Encounter Summary ---
Demographics + + + | Address | [address] | | | [place] [address] | + + + | Home Phone | | + + + | Preferred Language | Unknown | + + + | Marital Status | | + + + | Lutheran Affiliation | 1013 | + + + | Race | or Other | + + + | Ethnic Group | Not or | + + + Author + + + | Author | [facility] | | | and Shahram | + + + | Organization | [facility] [...] Team Providers + +------+ + | Care Broadcast Producer Name | Role | Phone | + [...] | | | [address] | [place] [address] | | | | | [place] [address] | | | | | | [phone] | | | +--------+ + + + [...]
--- OUTSIDE RECORDS SUMMARY | ~2020-06-29 | XMS | Encounter Summary ---
Demographics + + + | Address | [address] | | | [place] [address] | + + + | Home Phone | | + + + | Preferred Language | Unknown | + + + | Marital Status | Single | + + + | Protestant Affiliation | CHR | + + + [...] Team Providers + +------+ + | Care Acquisitions Librarian Name | Role | Phone | + [...] Request | | Nutrition | Diagnoses | Vuvilla, | [place], | | | | | Kidney | Lissette, | KESHA Aragon | | | | | cancer, | [place] [address] [address] | [address] | | | | | primary, | [address] | [address] | | | | | with | Ct | [place], [place] | | | | | metastasis | [place], | [address] | | | | | from kidney | [place] | Phone: | | | | | to other | [address] | [phone] | | | | | site, left | Phone: | Fax: | | | | | ([facility]) | [phone] | [phone] | | | | | Procedures | Fax: | | | | | | CONSULT TO | [phone] | | | | | | ADULT [...] neoplasm of | E, [place]-C | [place] [address] | | | | | unspecified | [place] | [address] | | | | | kidney, | Family | [place], | | | | | except renal | Medicine | [place] [address] | | | | | pelvis | [address] | Phone: | | | | | Procedures | Pepe Frank | [phone] | | | | | CO NEW | Tim, | Fax: | | | | | PATIENT | [place] [address] | [phone] | | | | | LEVEL V CO | Phone: | | | | | | EST PATIENT | [phone] | | | | | | LEVEL V | Fax: | | | | | | | [phone] | | + +---------+ + + + + Encounter Details +--------+---------+ + + + | Date | Type | Department | Care Team | Description | +--------+---------+ + + + | 10/31/ | Office | [facility] | Lissette Ortiz, | Kidney cancer, | | 2020 | Visit | Clinics at S | [place] [address] [address] | primary, with | | | | [facility] [address] | metastasis from | | | | [facility] for | [place], [place] | kidney to other | | | | Health and Healing, | [address] | site, left (HCC) | | | | [address] | [phone] | (Primary Dx) | | | | [place], [place] | | | | | | [address] | | | | | | [phone] | | | +--------+---------+ + + + [...] + + + | Blood Pressure | 89/55 | 10/31/2019 10:41 AM | | | | | PST | | + + + + + | Pulse | 106 | 10/31/2019 10:41 AM | | | | | PST | | + + + + + | Temperature | - | - | | + + + + + | Respiratory Rate | - | - | | + + + + + | Oxygen Saturation | 100% | 10/31/2019 10:41 AM | | | | | PST | | + + + + + | Inhaled Oxygen | - | - | | | Concentration | | | | + + + + + | Weight | 83.1 kg (183 lb 3.2 | 10/31/2019 10:41 AM | | | | oz) | PST | | + + + + + | Height | - | - | | + + + + + | Body Mass Index | 32.45 | 10/10/2019 11:16 AM | | | [...] as of this encounter Progress Notes Lissette Ortiz MD - 10/31/2019 9:45 AM PSTFormatting of this note might be different fr om the original. FOLLOW-UP NOTE Patient: Tila Altman Date: 10/31/2019 : 1965 AGE: 54 y.o. Attending Physician: Lissette Ortiz MD Diagnosis Stage IV clear cell carcinoma [...] 08/29/2019, treatment for hypercalcemia Interval History Tila returns today for follow up visit. She reports ongoing weight loss of another 8 poun ds due to change in taste sensation. She's using oxycodone for abdominal pain, back pain is controlled. She reports ongoing motion sickness using dramamine. Impression/Plan Tila Altman is a 54 y.o. [...] prn Repeat UA, cbc, cmp today Cycle 3 ipi/nivo today RTC 3 weeks for cycle [address] CT post 4 weeks Medications: Current Outpatient Medications Medication Sig cholecalciferol 50,000 unit oral capsule Take 1 capsule by mouth once daily. Indication s: vitamin D deficiency (high dose therapy) levothyroxine 150 mcg oral tablet Take 1 tablet by [...] speech. Appropriate mood/affect. Laboratory: LAB RESULTS: Clinical Thin Film Technician on 10/31/2019 Component Date Value WHITE CELL COUNT 10/31/2019 4.86 RED CELL COUNT 10/31/2019 4.37 HEMOGLOBIN 10/31/2019 12.2 HEMATOCRIT 10/31/2019 38.6 MCV 10/31/2019 88.3 MCHC 10/31/2019 31.6* RDW SD 10/31/2019 56.3* PLATELET COUNT 10/31/2019 249 MPV 10/31/2019 8.7* NRBC% 10/31/2019 0.0 NRBC# 10/31/2019 0.00 NEUTROPHIL % 10/31/2019 69.7 LYMPHOCYTE % 10/31/2019 12.6* MONOCYTE % 10/31/2019 9.5* EOS % 10/31/2019 5.3* BASO % 10/31/2019 2.1* IG% 10/31/2019 0.8 NEUTROPHIL # 10/31/2019 3.39 NEUTROPHIL # Prelim 10/31/2019 3.39 LYMPHOCYTE # 10/31/2019 0.61* MONOCYTE # 10/31/2019 0.46 EOS # 10/31/2019 0.26 BASO # 10/31/2019 0.10 IG# 10/31/2019 0.04 GLUCOSE, PLASMA (LAB) 10/31/2019 81 BUN, PLASMA (LAB) 10/31/2019 54* CREATININE PLASMA (LAB) 10/31/2019 1.60* EGFR - [place] 10/31/2019 40* EGFR NON -[place] 10/31/2019 33* SODIUM, PLASMA (LAB) 10/31/2019 129* POTASSIUM, PLASMA (LAB) 10/31/2019 5.5* CHLORIDE, PLASMA (LAB) 10/31/2019 101 TOTAL CO2, PLASMA (LAB) 10/31/2019 19* CALCIUM, PLASMA (LAB) 10/31/2019 8.1* CALCIUM(ALB CORRECTED) 10/31/2019 9.6 BILIRUBIN TOTAL 10/31/2019 0.5 TOTAL PROTEIN, PLASMA (L* 10/31/2019 6.0* ALBUMIN, PLASMA (LAB) 10/31/2019 2.1* ALK PHOS 10/31/2019 109* AST(SGOT) 10/31/2019 51* ALT (SGPT) 10/31/2019 24 ANION GAP 10/31/2019 9 ANION GAP(ALB CORRECTED) 10/31/2019 13* POTASSIUM CMNT 10/31/2019 No Hemo BILI T CMNT 10/31/2019 No Hemo AST CMNT 10/31/2019 No Hemo BUN/CREATININE RATIO 10/31/2019 34* GLOBULIN LVL 10/31/2019 3.9* ALBUMIN/GLOBULIN RATIO 10/31/2019 0.5* TSH 10/31/2019 13.70* FREE T4 10/31/2019 1.2 CORTISOL, TOTAL SERUM 10/31/2019 24.1 Lissette Ortiz MD documented in this e ncounter Miscellaneous Notes Addendum Note - Lissette Ortiz MD - 10/31/2019 9:45 AM PST Addended by: KATEY ORTIZ MD on: 10/31/2019 05:04 PM Modules accepted: Orders documented in this encounter Plan of Treatment Not on filedocumented as of this encounter Procedures + +--------+ + + + | Procedure Name | Priori | Date/Time | Associated Diagnosis | Comments | | | ty | | | | + +--------+ + + + | ADMINISTER | Routin | 10/31/2019 | | | | CHEMOTHERAPY PER | e | 11:03 AM | | | | TREATMENT PARAMETERS | | PST | | | + +--------+ + + + | ADMINISTER | Routin | 10/31/2019 | | | | CHEMOTHERAPY PER | e | 10:51 AM | | | | TREATMENT PARAMETERS | | PST | | | + +--------+ + + + documented in this encounter Visit Diagnoses + + | Diagnosis | + + | Kidney cancer, primary, 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
--- OUTSIDE RECORDS SUMMARY | ~2020-06-29 | XMS | Encounter Summary ---
Demographics + + + | Address | [address] | | | [place] [address] | + + + | Home Phone [...] Providers + +------+ + | Care Vice President Biostatistics Name | Role | Phone | + +------+ + | Lissette Martinez PA-C | PCP | | + +------+ + Reason for Referral Consultation (Urgent) + +--------+ + + + + | Status | Reason | Specialty | Diagnoses / | Referred By | Referred To | | | | | Procedures | Contact | Contact | + +--------+ + + + + | Authorized | | Neurological | Diagnoses | [place]uvilla, | Akash, | | | | Surgery | Kidney | Lissette, | Stephanie Aggarwal MD | | | | | cancer, | [address] | [address] [facility] | | | | | primary, | [address] | [facility] | | | | | with | Ct | Rd | | | | | metastasis | [place], | [place], [place] | | | | | from kidney | [place] | [address] | | | | | to other | [address] | Phone: | | | | | site, left | Phone: | [phone] | | | | | (HCC) | [phone] | Fax: | | | | | Procedures | Fax: | [phone] | | | | | CONSULT TO | [phone] | | | | | | NEUROSURGERY | | | | | | | MI NEW | | | | | | | PATIENT | | | | | | | LEVEL V MI | | | | | | | EST PATIENT | | | | | | | LEVEL V | | | + +--------+ + + + + Consultation (Urgent) + +--------+ + + + + | Status | Reason | Specialty | Diagnoses / | Referred By | Referred To | | | | | Procedures | Contact | Contact | + +--------+ + + + + | Canceled | | Neurological | Diagnoses | [place]uv[place], | Akash, | | | | Surgery | Kidney | Lissette, | Stephanie Aggarwal MD | | | | | cancer, | [address] | [address] [facility] | | | | | primary, | [address] | [address] | | | | | with | Ct | Rd | | | | | metastasis | [facility], | [facility], [place] | | | | | from kidney | [place] | [address] | | | | | to other | [address] | Phone: | | | | | site, left | Phone: | [phone] | | | | | ([facility]) | [phone] | Fax: | | | | | Procedures | Fax: | [phone] | | | | | CONSULT TO | [phone] | | | | | | NEUROSURGERY | | | + +--------+ + + + + Diagnostic Testing (Urgent) + +--------+ + + + + | Status | Reason | Specialty | Diagnoses / | Referred By | Referred To | | | | | Procedures | Contact | Contact | + +--------+ + + + + | New Request | | Radiology | Diagnoses | Vuky, | [place] | | | | | Kidney | Lissette, | Health & | | | | | cancer, | [address] | [employer] | | | | | primary, | [address] | [address] [facility] | | | | | with | Ct | [address] | | | | | metastasis | [facility], | ROAD | | | | | from kidney | [place] | [place], [place] | | | | | to other | [address] | [address] | | | | | site, left | Phone: | Phone: | | | | | (HCC) | [phone] | [phone] | | | | | Procedures | Fax: | | | | | | MRI BRAIN | [phone] | | | | | | TUMOR | | | | | | | EVALUATION | | | | | | | WWO CONTRAST | | | + +--------+ + + + + Reason for Visit + +--------+ + | Reason | Onset | Comments | | | Date | | + +--------+ + | Emergency room | 02/22/ | scan showed tumor | | admission, followed | 2020 | | | by release | | | + +--------+ + Encounter Details +--------+ + + + + | Date | Type | Department | Care Team | Description | +--------+ + + + + | 02/22/ | Telephone | [facility] | Lissette Jones, | Emergency room | | 2020 | | Clinics at S | [place] [address] [address] | admission, followed | | | | [facility] [address] | by release (scan | | | | [facility] for | [place], [place] | showed tumor) | | | | [employer], | [address] | | | | | [address] | [phone] | | | | | [place], [place] | | | | | | [address] | | | | | | [phone] | | | +--------+ + + + [...] Telephone Encounter - Ashlee Holley RN - 02/24/2020 1:52 PM PDTCall to Pt to confirm that s he has been in contact with neuro. Per her, she had telephone consult today and will see the m after MRI on Thursday. The patient stated understanding and has no further questions at this time. elephone Encounter - Ashlee Joyce RN - 02/23/2020 5:39 PM PDTUrgent referral placed for Neurosurgery consult. From: Lissette Jones <[email or web address]> Sent: February 4:27 PM To: Mateo Jean <[email or web address]>; Mike Perez <[email or web address]>; Ashlee Holley <[email or web address] Cc: Stephanie Bustos <[email or web address]>; Paris Palomo <[email or web address]> Subject: RE: new urgent referral Thanks Mateo! RNC Can you get referral to Dr. Bustos with MRI brain? JV From: Mateo Jean <[email or web address]> Sent: February 4:14 PM To: Lissette Jones <[email or web address]> Cc: Stephanie Bustos <[email or web address]>; Paris Palomo <[email or web address]> Subject: RE: new urgent referral Thanks for the referral. I am unfortunately out of town for the next couple of weeks. My partner Dr. Bustos told me can see the patient next week and would be happy to take care of he shelley Galindo elephone Encounter - Lito Diaz - 02/23/2020 3:51 PM PDTPAS received approval from dept slot supervisor the next a vail won't be until March. Call to patient, agreeable to MRI on Monday 02/26 @ 6 a m.LIZZ went over check-in process to wait outside of building for call from Radiology. LIZZ al so went over visitor rules, one healthy visitor allowed during scan appt.. Patient wanted to know from Dr. Jones if she would need to stay in town after MRI as she was told there is a p ossibility of surgery depending on MRI results. Would like a call back to confirm. Sander painting signed by Lito Keyes at 02/23/2020 3:56 PM PDTTelephone Encounter - Kenneth Jimenez - 02/23/2020 3:24 PM PDTTeam Coordinator Documentation: Subject: Note TC: Obtained ED notes/labs. Forwarded to Mike PEREZ/ Karen. Waiting on CT report and images, will update encounter when those are obtained -->Note to RNC: HOMA elephone Encounter - Anai Toribio - 02/23/2020 2:49 PM PDTTeam Coordinator Documentation: Subject: Note TC: Called [facility] for Labs/reports from ED visit last night. Faxed image push reques t for CT scan. Will update encounter with med records/ image report -->Note to RNC: Homa elephone Encounter - Ashlee Holley RN - 02/23/2020 1:28 PM PDTVerbal order received for urgent Brain MRI to evaluate new met found during OSH ED visit. Dr. Jones would like follow up by neuro at [facility], and will reach out to them via email. Encounter routed to daily sales audit clerk for urgent MRI scheduling. elephone Encounter - Tanya Márquez - 02/23/2020 11:22 AM PDTP t calling to report ER visit at [facility] for possible stroke last night. 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 Pt states that treating ER doctor did reach out and talked to [facility] parking regulation enforcement officer provider. Pt agreeable to call back to discuss this. documented in this encounter Plan of Treatment + +---------+--------+ + + | Name | Type | Priori | Associated Diagnoses | Order Schedule | | | | ty | | | + +---------+--------+ + + | MRI BRAIN TUMOR | Imaging | Urgent | Kidney cancer, | Expected: 02/23/2020 | | EVALUATION WWO | | | primary, with | (Approximate), | | CONTRAST | | | metastasis from | Expires: 03/24/2021 | | | | | kidney to [...]
--- OUTSIDE RECORDS SUMMARY | ~2020-06-29 | XMS | Encounter Summary ---
Demographics + + + | Address | [address] | | | [place] [address] | + + + | Home Phone [...] Team Providers + +------+ + | Care Contract Negotiation Specialist Name | Role | Phone | [...] | [facility] [address] | [place]igna S[place], | | | | | [facility] | [place] [address] | | | | | Health and Healing, | [phone] | | | | | [address] | | | | | | [place], [place] | | | | | | [address] | | | | | | [phone] | | | +--------+ + + + [...]
--- OUTSIDE RECORDS SUMMARY | ~2020-06-29 | XMS | Encounter Summary ---
Demographics + + + | Address | [address] | | | [place] [address] | + + + | Home Phone [...] Team Providers + +------+ + | Care Parish Visitor Name | Role | Phone | + +------+ + | Lissette Martinez PA-C PCP | | + +------+ + Encounter Details +--------+--------+ + + + | Date | Type | Department | Care Team | Description | +--------+--------+ + + + | 10/ | Travel | | | | | [...]
--- OUTSIDE RECORDS SUMMARY | ~2020-06-29 | XMS | Encounter Summary ---
Demographics + + + | Address | [address] | | | [place] [address] | + + + | Home Phone [...] Team Providers + +------+ + | Care It Specialist Name | Role | Phone | [...] | | Clinics at S | [place] [address] [address] | | | | | [facility] [address] | | | | | [facility] for | [place], [place] | | | | | Health and Healing, | [address] | | | | | [address] | [phone] | | | | | [place], [place] | | | | | | [address] | | | | | | [phone] | | | +--------+ + + + [...] Please confirm this information and contact Tila [phone] with whether or not this is true documented in this encounter Plan of Treatment Not on filedocumented as of this encounter Visit Diagnoses Not on filedocumented in this encounter"
--- OUTSIDE RECORDS SUMMARY | ~2020-06-29 | XMS | Encounter Summary ---
Demographics + + + | Address | [address] | | | [place] [address] | + + + | Home Phone [...] + + + | Author | [facility] | | | and Shahram | + + + | Organization | [facility] | | | and Marcana [...] Team Providers + +------+ + | Care Academic Specialist Name | Role | Phone | [...] | | | [address] | [place] [address] | | | | | [place] [address] | | | | | | [phone] | | | +--------+ + + + [...]
--- OUTSIDE RECORDS SUMMARY | ~2020-06-29 | XMS | Encounter Summary ---
Demographics + + + | Address | [address] | | | [place] [address] | + + + | Home Phone [...] Phone | + + +---------+ + | Willaim Talavera | ECON | Unknown | | + + +---------+ + Care Team Providers + +------+ + | Care Leather Goods Maker Name | Role | Phone | [...] cell | Kwabena Nettles MD | [address] | | | | | carcinoma, | [address] | | | | | unspecified | [address] | Center for | | | | | laterality | [address] | Health and | | | | | (HCC) | [place], [place] | Healing, | | | | | staging | [address] | [address], | | | | | kidney | Phone: | 3rd Floor | | | | | cancer | [phone] | [facility] [place] | | | | | Procedures | Fax: | [address] | | | | | MRI BRAIN | [phone] | Phone: | | | | | WWO CONTRAST | | [phone] | | | | | CA MRI | | Fax: | | | | | BRAIN COMBO | | [phone] | +--------+--------+ + + + + Reason [...] cell | Kwabena Nettles MD | [address] | | | | | carcinoma, | [address] | | | | | unspecified | [address] | Center for | | | | | laterality | [address] | Health and | | | | | (HCC) | [place], [place] | Healing, | | | | | staging | [address] | [address], | | | | | kidney | Phone: | 3rd Floor | | | | | cancer | [phone] | [place], [place] | | | | | Procedures | Fax: | [address] | | | | | MRI BRAIN | [phone] | Phone: | | | | | WWO CONTRAST | | [phone] | | | | | CA MRI | | Fax: | | | | | BRAIN COMBO | | [phone] | +--------+--------+ + + + + Encounter Details +--------+ + + + + | Date | Type | Department | Care Team | Description | +--------+ + + + + | 02/26/ | Hospital | Diagnostic Imaging | Kwabena Sanchez, | | | 2019 | Encounter | Services at [facility] | [address] | | | | | [address] | [facility] [address] | | | | | Digna Calvin | [place], [place] | | | | | [facility] | [address] | | | | | [place], [place] | [phone] | | | | | [address] | | | | | | [phone] | | | +--------+ + + + [...]
--- OUTSIDE RECORDS SUMMARY | ~2020-06-29 | XMS | Encounter Summary ---
Demographics + + + | Address | [address] | | | [place] [address] | + + + | Home Phone [...] + + | Author | [facility] | | | and Shahram | + + + | Organization | [facility] | | | and Marcana [...] Team Providers + +------+ + | Care Trimmer Helper Name | Role | Phone | + +------+ + PCP | Unavailable | + +------+ + Encounter Details +--------+ + + + + | Date | Type | Department | Care Team | Description | +--------+ + + + + | 04/08/ | Hospital | [facility] | | | | 2003 - | Encounter | [facility] | | | | | | CENTER [address] | | | | 07/12/ | | [place]ANE[place] Solis | | | | 2003 | | [address] | | | | | | [phone] | | | +--------+ + + + [...]
--- OUTSIDE RECORDS SUMMARY | ~2020-06-29 | XMS | Encounter Summary ---
Demographics + + + | Address | [address] | | | [place] [address] | + + + | Home Phone [...] Team Providers + +------+ + | Care Washhouse Hand Name | Role | Phone | [...] | | Oncology | Renal cell | Lissette | Treatment | | | | | [place] | [place] [address] [address] | [facility] [address] | | | | | left kidney | [facility] | [address] | | | | | (HCC) | Ct | [facility] for | | | | | 09/19/19-05/08 | [place], | Health and | | | | | 12/2019 | [place] | Healing, | | | | | cycles 1-4 q | [phone] | [address] | | | | | 21 days | Phone: | [place], [place] | | | | | Nivolumab - | [phone] | [address] | | | | | Ipilimumab | Fax: | Phone: | | | | | - cycles | [phone] | [phone] | | | | | 5-14 q14 | | Fax: | | | | | days | | [phone] | | | | | Procedures | | | | | | | TX INJ | | | | | | | NIVOLUMAB 1 | | | | | | | MG TX INJ | | | | | | | IPILIMUMAB, | | | | | | | 1 MG TX | | | | | | | CHM,IV | | | | | | | INFSN,1 HR | | | | | | | TX CHM,IV | | | | | | | INFSN,ADDL | | | | | | | HR TX CHM | | | | | | [...] | +--------+ + + + + | 09/19/ | Hospital | [facility] | [address] | | | 2020 | Encounter | Clinics at S | [place], [place] | | | | | [facility] [address] | [address] | | | | | [facility] | | | | | | Health and Healing, | | | | | | [address] | | | | | | [place], [place] | | | | | | [address] | | | | | | [phone] | | | +--------+ + + + [...] + + + | Blood Pressure | 92/58 | 09/19/2019 9:15 AM | | | | | PST | | + + + + + | Pulse | 107 | 09/19/2019 9:15 AM | | | | | PST | | + + + + + | Temperature | 36.4 C (97.5 F) | 09/19/2019 9:15 AM | | | | | PST | | + + + + + | Respiratory Rate | 18 | 09/19/2019 9:15 AM | | | | | PST | | + + + + + | Oxygen Saturation | 100% | 09/19/2019 9:15 AM | | | | | PST | | + + + + + | Inhaled Oxygen | - | - | | | Concentration | | | | + + + + + | Weight | 89.1 kg (196 lb 6 | 09/19/2019 9:15 AM | | | | oz) | PST | | + + + + + | Height | 159 cm (5' 2.6") | 09/19/2019 9:15 AM | | | | | PST | | + + + + + | Body Mass Index | 35.23 | 09/19/2019 9:15 AM | | | [...] encounter Progress Notes Leah Iglesias RN - 09/19/2019 9:20 AM PSTChemotherapy Nurse Note Name: Tila Altman Date: 09/19/2019 Physician: Karen Allergies: Tila has No Known Allergies. Diagnosis: Renal Cell Significant Other: Daughter,sister Nursing Assessment: Fever: no; Diarrhea:No Constipation: Yes, Patient encouraged to increase fluids, ambulation and PRN Due to pain me ds, has stool softners at home SOB / Cough: no; Rash: no Edema: no; Mucositis: no; Urinary: no; Neuropathy: no; S/S Bleeding: yes - Blood in urine secondary to diagnosis; Severity (1=Not at all, 2=A little, 3=Quite a bit, 4=Very much) Nausea and/or Vomitin due to lack of appetite Fatigue: 2 Pain: 0 Narrative: Patient here for 1st cycle Ipy/Nivo. Patient oriented to unit and treatment rou ana. New chemotherapy medication patient information and packet given and educated for 15 mins. Positive blood return on IV line prior and after infusion. Medication infused with 250ml N S sidearm bag. Pt tolerated without incident. PIV d/c'd and intact. 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 | + +--------+ + + + | TSH - OLP | Routin | 09/19/2019 | Renal cell | Results for this | | | e | 9:08 AM | carcinoma of left | procedure are in the | | | | PST | kidney (HCC) | results section. | + +--------+ + + + | CORTISOL, SERUM - | Routin | 09/19/2019 | Renal cell | Results for this | | OLP | e | 9:08 AM | carcinoma of left | procedure are in the | | | | PST | kidney (HCC) | results section. | + +--------+ + + + | CBC AND AUTO DIFF - | Routin | 09/19/2019 | Renal cell | Results for this | | [facility] | e | 9:08 AM | carcinoma of left | procedure are in the | | | | PST | kidney (HCC) | results section. | + +--------+ + + + | COMPLETE METABOLIC | Routin | 09/19/2019 | Renal cell | Results for this | | PANEL - OLP | e | 9:08 AM | carcinoma of left | procedure are in the | | | | PST | kidney (HCC) | results section. | + +--------+ + + + | CBC WITH AUTO DIFF - | Routin | 09/19/2019 | Renal cell | Results for this | | OLP | e | 9:08 AM | carcinoma of left | procedure are in the | | | | PST | kidney ([facility]) | results section. | + +--------+ + + + | [facility] - COMPLETE | Routin | 09/19/2019 | Renal cell | Results for this | | METABOLIC SET | e | 9:08 AM | carcinoma of left | procedure are in the | | | | PST | kidney ([facility]) | results section. | + +--------+ + + + | FREE T4 | Routin | 09/19/2019 | Renal cell | Results for this | | | e | 9:08 AM | carcinoma of left | procedure are in the | | | | PST | kidney ([facility]) | results section. | + +--------+ + + + | TSH | Routin | 09/19/2019 | Renal cell | Results for this | | | e | 9:08 AM | carcinoma of left | procedure are in the | | | | PST | kidney ([facility]) | results section. | + +--------+ + + + | CORTISOL, SERUM | Routin | 09/19/2019 | Renal cell | Results for this | | | e | 9:08 AM | carcinoma of left | procedure are in the | | | | PST | kidney (HCC) | results section. | + +--------+ + + + documented in this encounter Results CORTISOL, SERUM (09/19/2019 9:08 AM PST) + +-------+ + + + | Component | Value | Ref Range | Performed | Pathologist | | | | | At | Signature | + +-------+ + + + | CORTISOL, | 19.6 | ug/dL | [facility] | | | [...] | + + + + + | [facility] | [address] | [place] [address] | | | SERVICES, CORE | [address] | | | + + + + + FREE T4 (09/19/2019 9:08 AM PST) + +---------+ + + + [...] | + + + + + | [facility] | [address] | [place] [address] | | | SERVICES, CORE | [address] | | | + + + + + TSH (09/19/2019 9:08 AM PST) + + + + + + | Component | Value | Ref Range | Performed | Pathologist | | | | | At | Signature | + + + + + + | TSH | 13.40 (H) | 0.50 - 5.07 | [facility] [...] | + + + + + | [facility] | [address] | [place] [address] | | | SERVICES, CORE | [address] | | | + + + + + [facility] - COMPLETE METABOLIC SET (09/19/2019 9:08 AM PST) + + + + + + | Component | Value | Ref Range | Performed | Pathologist | | | | | At | Signature | + + + + + + | GLUCOSE, | 92 | 70 - 99 mg/dL | [facility] [...] + + + + | CREATININE | 1.33 (H) | 0.60 - 1.10 | [facility] | | | PLASMA | | mg/dL | LABORATORY | | | (LAB) | | | SERVICES, | | | | | | [facility] | [facility] | | [facility] + | | | | | | HEALING | | + + + + + + | EGFR | 50 (L) | >60 mL/min | [facility] | | | - | | | LABORATORY | | | MAURITIAN | | | SERVICES, | | | | | | [facility] | [facility] | | | | [facility] + | | | | | | HEALING | | + + + + + + | EGFR NON | 41 (L) | >60 mL/min | [facility] | [...] + + + + | CALCIUM(ALB | 9.8 | 8.6 - 10.2 | [facility] | [...] + + + + | TOTAL | 6.4 | 6.4 - 8.2 g/dL | [facility] | | | PROTEIN, | | | LABORATORY | | | PLASMA | | | SERVICES, | | | (LAB) | | | [facility] | | | | | | [facility] + | | | | | | HEALING | | + + + + + + | ALBUMIN, | 2.5 (L) | 3.5 - 4.7 g/dL | [facility] | | | PLASMA | | | LABORATORY | | | (LAB) | | | SERVICES, | | | | | | [facility] | | | | | | [facility] + | | | | | | HEALING | | + + + + + + | ALK PHOS | 116 (H) | 42 - 98 U/L | [...] + + + | ALT (SGPT) | 15 | <=60 U/L | [facility] | | [...] + + + + | BUN/CREATIN | 17 | 8 - 25 | [facility] | [...] MDRD equation recommended by the National | [facility] | | Kidney Disease Education Program. [...] LABORATORY | [address] | [place] [address] | | | SERVICES, [facility] | | | | | HEALTH + HEALING | | | | + + + + + CBC AND AUTO DIFF - [facility] (09/19/2019 9:08 AM PST) + + + + + + | Component | Value | Ref Range | Performed | Pathologist | | | | | At | Signature | + + + + + + | WHITE CELL | 3.47 (L) | 3.50 - 10.80 | [facility] | | | COUNT | | K/cu mm | LABORATORY | | | | | | SERVICES, | | | | | | [facility] | | | | | | [facility] + | | | | | | HEALING | | + + + + + + | RED CELL | 4.06 | 4.00 - 5.20 | [facility] | | | COUNT | | M/cu mm | LABORATORY | | | | | | SERVICES, | | | | | | [facility] | | | | | | [facility] + | | | | | | HEALING | | + + + + + + | HEMOGLOBIN | 11.4 (L) | 12.0 - 16.0 | [facility] | | | | | g/dL | LABORATORY | | | | | | SERVICES, | | | | | | [facility] | | | | | | [facility] + | | | | | | HEALING | | + + + + + + | HEMATOCRIT | 36.5 | 36.0 - 46.0 % | [facility] | | | | | | LABORATORY | | | | | | SERVICES, | | | | | | [facility] | | | | | | [facility] + | | | | | | HEALING | | + + + + + + | MCV | 89.9 | 80.0 - 100.0 fL | [facility] | | | | | | LABORATORY | | | | | | SERVICES, | | | | | | [facility] | | | | | | [facility] + | | | | | | HEALING | | + + + + + + | MCHC | 31.2 (L) | 32.0 - 36.0 | [facility] | | | | | g/dL | LABORATORY | | | | | | SERVICES, | | | | | | [facility] | | | [facility] | | [facility] + | | | | | | HEALING | | + + + + + + | RDW SD | 54.3 (H) | 35.1 - 46.3 fL | [facility] | | | | | | LABORATORY | | | | | | SERVICES, | | | | | | [facility] | | | | | | [facility] + | | | | | | HEALING | | + + + + + + | PLATELET | 245 | 150 - 400 K/cu | [facility] [...] + + + + | NEUTROPHIL | 69.5 | 50.0 - 70.0 % | [facility] | | | % | | | LABORATORY | | | | | | SERVICES, | | | | | | [facility] | | | | | | [facility] + | | | | | | HEALING | | + + + + + + | LYMPHOCYTE | 13.3 (L) | 18.0 - 42.0 % | [facility] | | | % | | | LABORATORY | | | | | | SERVICES, | | | | | | [facility] | | | | | | [facility] + | | | | | | HEALING | | + + + + + + | MONOCYTE % | 11.2 (H) | 3.5 - 9.0 % | [facility] | | | | | | LABORATORY | | | | | | SERVICES, | | | | | | [facility] | | | | | | [facility] + | | | | | | HEALING | | + + + + + + | EOS % | 3.7 (H) | 1.0 - 3.0 % | [facility] | | | | | | LABORATORY | | | | | | SERVICES, | | | | | | [facility] | | | | | | [facility] + | | | | | | HEALING | | + + + + + + | BASO % | 1.7 | 0.0 - 2.0 % | [facility] [...] + + + + | NEUTROPHIL | 2.41 | 1.80 - 7.70 | [facility] | | | # | | K/cu mm | LABORATORY | | | | | | SERVICES, | | | | | | [facility] | | | | | | HE[facility] + | | | | | | HEALING | | + + + + + + | NEUTROPHIL | 2.41Comment: Preliminary | 1.80 - 7.70 | [facility] [...] + + + + | LYMPHOCYTE | 0.46 (L) | 1.00 - 4.80 | [facility] | | | # | | K/cu mm | LABORATORY | | | | | | SERVICES, | | | | | | [facility] | | | | | | [facility] + | | | | | | HEALING | | + + + + + + | MONOCYTE # | 0.39 | 0.10 - 0.90 | [facility] | | | | | K/cu mm | LABORATORY | | | | | | SERVICES, | | | | | | [facility] | | | | | | [facility] + | | | | | | HEALING | | + + + + + + | EOS # | 0.13 | 0.00 - 0.50 | [facility] | | | | | K/cu mm | LABORATORY | | | | | | SERVICES, | | | | | | [facility] | | | | | | [facility] + | | | | | | HEALING | | + + + + + + | BASO # | 0.06 | 0.00 - 0.10 | [facility] | [...] JEANETTE OLIVAREZ | [address] | [place] [address] | | | [facility] | | | | | [...] | | | + +---------+ +-------+-------+------+ | ipilimumab (YERVOY) 90 mg in | New Bag | 09/19/19 | 90 mg | 136 | | | sodium chloride (NS) 0.9 % IV | | 11:32 | | mL/hr | | | mg (rounded from 91.4 mg = 1 | | AM PST | | | | | mg/kg | | | | | | | 91.4 kg Treatment plan recorded | | | | | | | weight), intravenous, Administer | | | | | | | over 30 Minutes, ONCE, 1 dose, | | | | | | | 09/19/19 at 0945, Administer | | | | | | [...] +---+---+ + +---------+ +--------+-------+---+ | nivolumab (OPDIVO) 280 mg in | New Bag | 09/19/19 | 280 mg | 256 | | | sodium chloride (NS) 0.9 % IV | | 20 10:18 | | mL/hr | | | 280 mg (rounded from 274.2 mg = 3 | | AM PST | | | | | mg/kg | | | | | | | 91.4 kg Treatment plan recorded | | | | | | | weight), intravenous, Administer | | | | | | | over 30 Minutes, ONCE, 1 dose, | | | | | | | 09/19/19 at 0915, Administer | | | | | | | through a low protein binding | | | | | | | 0.22 micron in-line filter., | | | | | | + +---------+ +--------+-------+---+ +---+---+ | | | +---+---+ documented in this encounter
--- OUTSIDE RECORDS SUMMARY | ~2020-06-29 | XMS | Encounter Summary ---
Demographics + + + | Address | [address] | | | [place] [address] | + + + | Home Phone | | + + + | Preferred Language | Unknown | + + + | Marital Status | Single | + + + | Synagogue Affiliation | CHR | + + + [...] Team Providers + +------+ + | Care Filling Separator Name | Role | Phone | + [...] | | [facility] [address] [facility] | | | | | [address] [facility] [address] for | Rd [place], [place] | | | | | Health and Healing, | [address] | | | | | [address] | | | | | | [facility] [place] | | | | | | [address] | | | | | | [phone] | | | +--------+ + + + [...]
--- OUTSIDE RECORDS SUMMARY | ~2020-06-29 | XMS | Encounter Summary ---
Demographics + + + | Address | [address] | | | [place] [address] | + + + | Home Phone [...] Team Providers + +------+ + | Care Sand Caster Name | Role | Phone | + [...]
--- OUTSIDE RECORDS SUMMARY | ~2020-06-29 | XMS | Encounter Summary ---
Demographics + + + | Address | [address] | | | [place] [address] | + + + | Home Phone [...] Team Providers + +------+ + | Care Network Services Project Manager Name | Role | Phone [...] + + | 12/13/ | Telephone | [facility] Primary Care | Yeni, | Post-discharge | | 2020 | | at [facility] | DO [address] | follow-up | | | | [address] | [address] [facility] | | | | | Loop Physician's | [place], [place] | | | | | [place], 3rd floor | [address] | | | | | [place], [place] | [phone] | | | | | [address] | | | | | | [phone] | | | +--------+ + + + [...] call from patient's PCP, REDD Morton, in [place], [place] with post-discharge questions. Lissette Martinez asked [...] perryuld be obtained with possible follow-up at [facility] pending results. Lissette also asked about thyroid [...] thyroid labs get followed up. Routing to [facility] to see if they are able to fax my 11/29/2019 discharge summary to Holly Martinez's office in [place], [place]. For reference, Lissette Martinez's number is [phone]. Lissette Jaime DO Internal Medicine, PGY2 Pager [phone] documented in this encounter Plan of Treatment Not on filedocumented as of this encounter Visit Diagnoses Not on filedocumented in this encounter"
--- OUTSIDE RECORDS SUMMARY | ~2020-06-29 | XMS | Encounter Summary ---
Demographics + + + | Address | [address] | | | [place] [address] | + + + | Home Phone [...] Team Providers + +------+ + | Care Mechanic Assistant Name | Role | Phone | [...] | | | | | cancer, | [address] | [address] | | | | | primary, | [facility] | [facility] | | | | | with | Ct | Hospital, | | | | | metastasis | [facility], | 10th Floor | | | | | from kidney | [place] | [place], [place] | | | | | to other | [address] | [address] | | | | | site, left | Phone: | Phone: | | | | | (HCC) | [phone] | [phone] | | | | | Procedures | Fax: | Fax: | | | | | CT CHEST, | [phone] | [phone] | | | | | ABDOMEN AND | | | | | | | PELVIS WO IV | | | | | | | CONTRAST | | | | | | | CT CHEST, | | | | | | | ABDOMEN AND | | | | | | | PELVIS W IV | | | | | | | CONTRAST [place] | | | | | | | CAT SCAN OF | | | | | | | CHEST | | | | | | | CONTRAST NM | | | | | | | CT | | | | | | | ABDOMEN&PELV | | | | | | | IS | | | | | | | W/CONTRAST | | | | | | | NM CT | | | | | | | SCAN,THORAX, | | | | | | | W/O CONTRAST | | | | | | | NM CT ABD | | | | | [...] | 2019 | Encounter | Services at [facility] | [address] | | | | | [address] | [address] | | | | | [facility]ign[facility] | [place], [place] | | | | | [address] | [address] | | | | | [place], [place] | [phone] | | | | | [address] | | | | | | [phone] | | | +--------+ + + + [...]
--- OUTSIDE RECORDS SUMMARY | ~2020-06-29 | XMS | Encounter Summary ---
Demographics + + + | Address | [address] | | | [place] [address] | + + + | Home Phone [...] + + + | Author | [facility] | | | and Shahram | + + + | Organization | [facility] | | | and [...] Team Providers + +------+ + | Care Art Gallery Internship Name | Role | Phone | + +------+ + PCP | Unavailable | + +------+ + Encounter Details +--------+ + + + + | Date | Type | Department | Care Team | Description | +--------+ + + + + | 05/07/ | Hospital | [facility] | | | | 2006 | Encounter | [facility] | | | | | | CENTER [address] | | | | | | [place] | | | | | | [address] | | | | | | [phone] | | | +--------+ + + + [...]
--- OUTSIDE RECORDS SUMMARY | ~2020-06-29 | XMS | Encounter Summary ---
Demographics + + + | Address | [address] | | | [place] [address] | + + + | Home Phone [...] Team Providers + +------+ + | Care Night Baker Name | Role | Phone | + [...] | | | carcinoma of | [place] [address] | | | | | | left kidney | [facility] | | | | | | (HCC) | Ct | | | | | | Procedures | [place], | | | | | | CT CHEST, | [place] | | | | | | ABDOMEN AND | [address] | | | | | | PELVIS W IV | Phone: | | | | | | CONTRAST [place] | [phone] | | | | | | CAT SCAN OF | Fax: | | | | | | CHEST | [phone] | | | | | | CONTRAST [...] | | Clinics at S | [place] [address] [address] | | | | | [facility] [address] | | | | | [facility] for | [place], [place] | | | | | Health and Healing, | [address] | | | | | [facility] 2 | [phone] | | | | | [place], [place] | | | | | | [address] | | | | | | [phone] | | | +--------+ + + + [...] Subject: Note TC: Armindaxed CT order to [facility], will update when patients completes CT and r eport is obtained w/ images -->Note to RNC: HOMA elephone Encounter - Lito Dumont - 05/09/2020 3:33 PM PDTCall to patient, agreed to scheduled virtual with MD crescencio sewell 05/15 @ 12:20 pm. HOMA. e lephone Encounter - Jessica Paiz - 05/08/2020 11:02 AM PDTamber w/ [facility] w dr myles calling in states their MD would like pt to be seen sooner than 06/26 b/c "pt isnt do ing very well" LIZZ calles'meaghan Jammer Hooker but Jammer Hooker adv she does not have say and req PAS to route MD / RNC yonny Fritz very agreeable to call back PAS confirmed call back ph# [phone] Routing to RNC / elephon e Ness - Anai Jimenez - 05/01/2020 2:01 PM PDTTeam Coordinator Documentation: Subject: Note TC: [facility] responded "The website is still not showing [...] Documentation: Subject: Note TC: Sent message to [facility] to obtain authorization, will update when [facility] responds -->Note to RNC: HOMA elephone Encounter - Wats on, Tess Sewell MA - 04/25/2020 2:47 PM PDTFormatting of this note might be different from t silva original. From [place] 04/23: MD Eden Roberts Sewell Onc Isaiah Pool; P Hem Sewell Schedule Please schedule CT in 06/2020 [facility] [place], [place] Phone/virtual visit with me after that Lab ordered and faxed to [facility] in [place], [place] . CT ordered, TC p lease auth and fax (due 06/2020). [employer] message sent to pt. documented in this [...]
--- OUTSIDE RECORDS SUMMARY | ~2020-06-29 | XMS | Encounter Summary ---
Demographics + + + | Address | [address] | | | [place] [address] | + + + | Home Phone [...] Team Providers + +------+ + | Care Yard Pilot Name | Role | Phone | + +------+ + | Lissette Martinez PA-C | PCP | | + +------+ + Encounter Details +--------+ + + + + | Date | Type | Department | Care Team | Description | +--------+ + + + + | 08/30/ | Procedure | Diagnostic Imaging | | | | 2018 | Pass | Services at [facility] | | | | | | [address] | | | | | | [facility]ign[facility] | | | | | | [facility] | | | | | | [place], [place] | | | | | | [address] | | | | | | [phone] | | | +--------+ + + + [...]
--- OUTSIDE RECORDS SUMMARY | ~2020-06-29 | XMS | Encounter Summary ---
Demographics + + + | Address | [address] | | | [place] [address] | + + + | Home Phone [...] Providers + +------+ + | Care Product Safety Tester Name | Role | Phone | + +------+ + | Lissette Martinez PA-C | PCP | | + +------+ + Encounter Details +--------+ + + + + | Date | Type | Department | Care Team | Description | +--------+ + + + + | 04/17/ | MyChart | [facility] | Lissette Jones, | Rx refill | | 2019 | Encounter | Clinics at S | [place] [address] | | | | | [facility] [address] | | | | | [facility] for | [place], [place] | | | | | Health and Healing, | [address] | | | | | [address] | [phone] | | | | | [facility] [place] | | | | | | [address] | | | | | | [phone] | | | +--------+ + + + [...] in vm). Requests call back to . [phone] Routing to RNC / MD (Urgent due [...] and Time Department Ordering/Authorizing 03/19/2020 5:25 PM [facility] Lissette Jones MD Outpatient Medication Detail Disp Refills oxyCODONE (immediate release) 5 mg oral tablet 120 tablet 0 Sig: Take 1 tablet by mouth every four hours as needed. Sent to pharmacy as: oxyCODONE 5 mg tablet (ROXICODONE) Class: eRx Earliest Fill Date: 03/19/2020 Route: oral Order: [id number] E-Prescribing Status: Receipt confirmed by pharmacy (03/19/2020 5:25 PM PDT) Start Date Earliest Fill Date Mar 19, 2020 Mar 19, 2020 Per [facility] policy, routing encounter to [facility] for review and approval elephone Encounter - Ariana Montes RN - 0 04/17/2020 3:49 PM PDTRouted to [facility] [employer] [facility] documented in this encounter Plan of Treatment Not on filedocumented as of this encounter Visit Diagnoses Not on filedocumented in this encounter"
--- OUTSIDE RECORDS SUMMARY | ~2020-06-29 | XMS | Encounter Summary ---
Demographics + + + | Address | [address] | | | [place] [address] | + + + | Home Phone | | + + + | Preferred Language | Unknown | + + + | Marital Status | | + + + | Sabianist Affiliation | 1013 | + + + | Race | or Other | + + + | Ethnic Group | Not or | + + + Author + + + | Author | [facility] | | | and Shahram | + + + | Organization | [facility] | | | and Marcana | [...] Team Providers + +------+ + | Care Guest Request Runner Name | Role | Phone | + [...] | | | | | [place] [address] | | | | | | [phone] | | | +--------+ + + + [...] Dickson RN - 12/14/2019 11:37 AM PDT [facility] Interdisciplinary Team Navigational Checklist ? Top Priority Discipline EPIC Order Entered Consult Scheduled Consult Complete Comments: *Medical Oncology x *Radiation Oncology Dr. Janiya Velazco 12/13/19 x *Patient Navigation x *Nurse Navigator *Social Service Survivorship Nurse Breast Health Genetics Surgical Input *Nursing assessment *Pharmacy assessment Nutrition Rehab: PT OT Speech & Language Palliative Care Clinical Trials Involvement Instrumentation Specialist Visit Financial Assistance Interdisciplinary Consults Completed Date: documented in this en counter Plan of Treatment Not on filedocumented as of this encounter Visit Diagnoses Not on filedocumented in this encounter"
--- OUTSIDE RECORDS SUMMARY | ~2020-06-29 | XMS | Encounter Summary ---
Demographics + + + | Address | [address] | | | [place] [address] | + + + | Home Phone [...] + + + | Author | [facility] | | | and Shahram | + + + | Organization | [facility] | | [...] Providers + +------+ + | Care Electric Distribution Engineer Name | Role | Phone | [...] | | | [address] | [place] [address] | | | | | [place] [address] | | | | | | [phone] | | | +--------+ + + + [...]
--- OUTSIDE RECORDS SUMMARY | ~2020-06-29 | XMS | Encounter Summary ---
Demographics + + + | Address | [address] | | | [place] [address] | + + + | Home Phone [...] Team Providers + +------+ + | Care Gas Operation Manager Name | Role | Phone | [...] (work leave letter) | | | | [address] | [facility] | | | | | [place], 4th floor | [place], [place] | | | | | [place], [place] | [address] | | | | | [address] | [phone] | | | | | [phone] | | | +--------+ + + + [...] leave copy at RN desk and front end web designer in an envelope for patient to parts picker on first day of radiation treatment, 03/06/2020. Sander painting signed by Hemanth Cardenas RN at 02/29/2020 1:57 PM PDTdocumented in this encounter Plan of Treatment Not on filedocumented as of this encounter Visit Diagnoses Not on filedocumented in this encounter"
--- OUTSIDE RECORDS SUMMARY | ~2020-06-29 | XMS | Encounter Summary ---
Demographics + + + | Address | [address] | | | [place] [address] | + + + | Home Phone [...] Team Providers + +------+ + | Care Welfare Eligibility Worker Name | Role | Phone | [...] | | Authorization | | | | [place], [place] | | | | | | [address] | | | +--------+ + + + [...]
--- OUTSIDE RECORDS SUMMARY | ~2020-06-29 | XMS | Encounter Summary ---
Demographics + + + | Address | [address] | | | [place] [address] | + + + | Home Phone [...] Providers + +------+ + | Care Communications Equipment Operator Name | Role | Phone | [...] [address] | | | | | [facility] for | [facility] | | | | | Health and Healing, | [place], [place] | | | | | [facility] | [address] | | | | | [place], [place] | [phone] | | | | | [address] | | | | | | [phone] | | | +--------+ + + + [...] provider located at the distant site of [facility]. T he patient stated they were located at the originating site of home and were in the state of [place] at the time of the telephone visit. [...] the clinic. [facility] [address] Mailcode: [place] [address] documented in this encounter Plan of Treatment Not on filedocumented as of this encounter Visit Diagnoses + + | Diagnosis | + + | Closed fracture of first lumbar vertebra, unspecified fracture morphology, initial | | encounter ([facility]) - Primary | + + documented in this encounter"
--- OUTSIDE RECORDS SUMMARY | ~2020-06-29 | XMS | Encounter Summary ---
Demographics + + + | Address | [address] | | | [place] [address] | + + + | Home Phone | | + + + | Preferred Language | Unknown | + + + | Marital Status | | + + + | Moravian Affiliation | 1013 | + + + | Race | or Other | + + + | Ethnic Group | Not or | + + + Author + + + | Author | [facility] | | | and Shahram | + + + | Organization | [facility] | | | and Marcana [...] Providers + +------+ + | Care Machine Setter Name | Role | Phone | + [...] | | | | 2010 | | [address] | | | | | | [phone] | | | +--------+ + + + [...]
--- OUTSIDE RECORDS SUMMARY | ~2020-06-29 | XMS | Encounter Summary ---
Demographics + + + | Address | [address] | | | [place] [address] | + + + | Home Phone [...] Team Providers + +------+ + | Care Paper Testing Supervisor Name | Role | Phone | [...] | | | | cancer, | [place] [address] | | | | | | primary, | [place] | | | | | | with | Ct | | | | | | metastasis | [place], | | | | | | from kidney | [place] | | | | | | to other | [address] | | | | | | site, left | Phone: | | | | | | (HCC) | [phone] | | | | | | Procedures | Fax: | | | | | | [place] &/[place] | [phone] | | | | | | JOINT [...] + + | 08/23/ | Ancillary | [facility] | Lissette Jones, | | | 2019 | Orders | Clinics at S | [place] [address] | | | | | [facility] [address] | [address] | | | | | [facility] | [place], [place] | | | | | Health and Healing, | [address] | | | | | [address] | [phone] | | | | | [place], [place] | | | | | | [address] | | | | | | [phone] | | | +--------+ + + + [...] on filedocumented as of this encounter Results NM BONE [...]
--- OUTSIDE RECORDS SUMMARY | ~2020-06-29 | XMS | Encounter Summary ---
Demographics + + + | Address | [address] | | | [place] [address] | + + + | Home Phone [...] Phone | + + +---------+ + | Willima Talavera | ECON | Unknown | | + + +---------+ + Care Team Providers + +------+ + | Care Bulk Driver Name | Role | Phone | + +------+ + | Lissette Martinez PA-C | PCP | | + +------+ + Encounter Details +--------+ + + + + | Date | Type | Department | Care Team | Description | +--------+ + + + + | 03/26/ | Pharmacy | [facility] | | | | 2020 | Visit | & [facility] | | | | | | [address] | | | | | | Mailcode: [place] | | | | | | [facility] and | | | | | | Healing, [address] | | | | | | [place], [place] | | | | | | [address] | | | | | | [phone] | | | +--------+ + + + [...]
--- OUTSIDE RECORDS SUMMARY | ~2020-06-29 | XMS | Encounter Summary ---
Demographics + + + | Address | [address] | | | [place] [address] | + + + | Home Phone [...] Providers + +------+ + | Care District Plant Engineer Name | Role | Phone | [...] | | | | | cancer, | [address] | [address] | | | | | primary, | [place] | [facility] | | | | | with | Ct | Hospital, | | | | | metastasis | [facility], | 10th Floor | | | | | from kidney | [place] | [place], [place] | | | | | to other | [address] | [address] | | | | | site, left | Phone: | Phone: | | | | | (HCC) | [phone] | [phone] | | | | | Procedures | Fax: | Fax: | | | | | CT CHEST, | [phone] | [phone] | | | | | ABDOMEN AND | | | | | | | PELVIS WO IV | | | | | | | CONTRAST | | | | | | | CT CHEST, | | | | | | | ABDOMEN AND | | | | | | | PELVIS W IV | | | | | | | CONTRAST MI | | | | | | | CAT SCAN OF | | | | | | | CHEST | | | | | | | CONTRAST MI | | | | | | | CT | | | | | | | ABDOMEN&PELV | | | | | | | IS | | | | | | | W/CONTRAST | | | | | | | MI CT | | | | | | | SCAN,THORAX, | | | | | | | W/O CONTRAST | | | | | | | MI CT ABD | | | | | [...] | 2019 | Encounter | Services at [facility] | [address] | Condition Change) | | | | [address] | [address] | | | | | [facility] | [place], [place] | | | | | [facility], [address] [place] [address] | [address] | | | | | [place], [place] | [phone] | | | | | [address] | | | | | | [phone] | | | +--------+ + + + [...]
--- OUTSIDE RECORDS SUMMARY | ~2020-06-29 | XMS | Clinical Summary ---
Demographics + + + | Address | [address] | | | [place] [address] | + + + | Home Phone | | + + + | Preferred Language | Unknown | + + + | Marital Status | | + + + | Yazidism Affiliation | 1013 | + + + | Race | or Other | + + + | Ethnic Group | Not or | + + + Author + + + | Author | [facility] | | | and Shahram | + + + | Organization | [facility] | [...] Team Providers + +------+ + | Care Glass Unloading Equipment Tender Name | Role | Phone | + +------+ + | Lissette Martinez | PCP | | | RADHA | | | + +------+ + Allergies No Known Allergies Medications + + + +---------+------+------+-------+ | Medication | Sig | Dispensed | Refills | Star | End | Statu | | | | | | t | Date | s | | | | | | Date | | | + + + +---------+------+------+-------+ | cholecalciferol | Take 50,000 Units by | | 0 | 12/2 | | Activ | | (D3-50) 1.25 mg | mouth Once a week. | | | 5/20 | | e | | (50,000 units) | | | | 19 | | | | capsule | | | | | | | + + + +---------+------+------+-------+ | enoxaparin | Inject 80 mg under | | 0 | 03/2 | | Activ | | (LOVENOX) 80 mg/0.8 | the skin every 12 | | | 3/20 | | e | | mL injection | hours. | | | 20 | | | + + + +---------+------+------+-------+ | levothyroxine | Take 100 mcg by | | 0 | 03/2 | | Activ | | (SYNTHROID) 100 mcg | mouth. | | | 4/20 | | e | | tablet | | | | 20 | | | + + + +---------+------+------+-------+ | lovastatin | Take 20 mg by mouth. | | 0 | | | Activ | | (MEVACOR) 20 mg | | | | | | e | | tablet | | | | | | | + + + +---------+------+------+-------+ | omeprazole | Take 20 mg by mouth. | | 0 | 12/2 | | Activ | | (PRILOSEC) 20 mg | | | | 4/20 | | e | | capsule | | | | 19 | | | + + + +---------+------+------+-------+ | oxyCODONE | Take 5 mg by mouth | | 0 | 03/0 | | Activ | | (ROXICODONE) 5 mg | every 6 hours as | | | 5/20 | | e | | tablet | needed. | | | 20 | | | + + + +---------+------+------+-------+ | polyethylene | Take 17 g by mouth. | | 0 | 03/2 | | Activ | | glycol (MIRALAX) | | | | 4/20 | | e | | powder | | | | 20 | | | + + + +---------+------+------+-------+ | scopolamine | | | 0 | 03/3 | | Activ | | (TRANSDERM-SCOP) 1 | | | | 1/20 | | e | | mg/3 days patch | | | | 20 | | | + + + +---------+------+------+-------+ | docusate-senna | Take 1 tablet by | | 0 | 03/2 | | Activ | | (SENOKOT-S) 50-8.6 | mouth. | | | 4/20 | | e | | mg per tablet | | | | 20 | | | + + + +---------+------+------+-------+ | potassium chloride | Take 10 mEq by mouth | | 0 | 04/2 | | Activ | | (KLOR-CON) 10 mEq | Daily. | | | 09/26 | | e | | CR tablet | | | | 20 | | | + + + +---------+------+------+-------+ Active Problems + + + | Problem | Noted Date | + + + | Closed compression fracture of body of L1 vertebra | 11/21/2019 | + + + | JONO (acute kidney injury) | 08/30/2019 | + + + | Renal cell carcinoma of left kidney | 08/25/2019 | + + + | Compression fracture of L2 vertebra | 08/24/2019 | + + + | Hyperkalemia | 08/24/2019 | + + + | Hypercalcemia of malignancy | 08/23/2019 | + + + Family History + + +------+ + | Medical History | Relation | Name | Comments | + + +------+ + | Cancer | Maternal | | | | | Aunt | | | + + +------+ + | Cancer | Paternal | | | | | Aunt | | | + + +------+ + | Cancer | Paternal | | | | | Aunt | | | + + +------+ + + +------+--------+ + | Relation | Name | Status | Comments | + +------+--------+ + | Maternal Aunt | | | | + +------+--------+ + | Paternal Aunt | | | | + +------+--------+ + | Paternal Aunt | | | | + +------+--------+ + Social History + +-------+ +--------+------+ | [...] + + + | Blood Pressure | 102/55 | 12/29/2019 11:17 AM | | | | | PDT | | + + + + + | Pulse | 99 | 12/29/2019 11:17 AM | | | | | PDT | | + + + + + | Temperature | 36.7 C (98.1 F) | 12/29/2019 11:17 AM | | | | | PDT | | + + + + + | Respiratory Rate | 20 | 12/29/2019 11:17 AM | | | | | PDT | | + + + + + | Oxygen Saturation | 99% | 12/29/2019 11:17 AM | | | | | PDT | | + + + + + | Inhaled Oxygen | - | - | | | Concentration | | | | + + + + + | Weight | 92.3 kg (203 lb 7.8 | 12/29/2019 11:17 AM | | | | oz) | PDT | | + + + + + | Height | 157.5 cm (5' 2") | 12/07/2019 12:51 PM | | | | | PDT | | + + + + + | Body Mass Index | 37.22 | 12/07/2019 12:51 PM | | | | | PDT | | + + + + + Plan of Treatment + + + + + | Health Maintenance | Due Date | Last | Comments | | | | Done | | + + + + + | Hepatitis C | | | | | Screening | 3 | | | + + + + + | Med Mgmt: Cr | | | | | | 3 | | | + + + + + | Med Mgmt: HCT | | | | | | 3 | | | + + + + + | Med Mgmt: HGB | | | | | | 3 | | | + + + + + | Med Mgmt: K | | | | | | 3 | | | + + + + + | Med Mgmt: PLT | | | | | | 3 | | | + + + + + | Med Mgmt: RBC | | | | | | 3 | | | + + + + + | Med Mgmt: TSH | | | | | | 3 | | | + + + + + | Med Mgmt: Vit D | | | | | | 3 | | | + + + + + | Med Mgmt: eGFR | | | | | | 3 | | | + + + + + | Medication | | | | | Management | 3 | | | + + + + + | Vaccine: | | | | | Pneumococcal 19-64 | 9 | | | | (1 of 3 - PCV13) | | | | + + + + + | Cervical Cancer | | | | | Screening (Pap) | 3 | | | + + + + + | Colorectal Cancer | | | | | Screening | 3 | | | | (Colonoscopy) | | | | + + + + + | Vaccine: Zoster (1 | | | | | of 2) | 3 | | | + + + + + | Breast Cancer | | | | | Screening | 8 | | | + + + + + | Vaccine: Influenza | | 06/16/20 | | | (#1) | 0 | 19, | | [...] + + + | Vaccine: | | 08/15/20 | | | Dtap/Tdap/Td (3 - | 5 | 15, | | | Td) | | 01/23/20 | | | | | 12 | | + + + + + Results Not on filefrom Last 3 Months Insurance +-------+--------+ +--------+ +---------+------+ | Payer | Benefi | Subscriber | Effect | Phone | Address | Type | | | t Plan | ID | annalee | | | | | | / | | Dates | | | | | | Group | | | | | | +-------+--------+ +--------+ +---------+------+ | GEHA | GEHA | [id number] | | [phone] | | PPO | | | [employer]ETNA | | 020-Pr | 6 | | | | | PPO | | esent | | | | +-------+--------+ +--------+ +---------+------+ + +--------+ +--------+ + + | Guarantor Name | Accoun | Relation to | Date | Phone | Billing Address | | | t Type | Patient | of | | | | | | | | | | + +--------+ +--------+ + + | Tila Altman Bety | Person | Self [birth year] | [address] | | | al/Fam | | 1965 | [phone] | [place] [address] | | | corby | | | 4 (Home) | | + +--------+ +--------+ + + Advance Directives + + + + + | Type | Date Recorded | Patient | Explanation | | | | Network Internship | | + + + + + | Power of | | | | | Sheet Manager | | | | + + + + + | Advance | 12/13/2019 1:01 | | | | Directive | PM | | | + + + + +
--- OUTSIDE RECORDS SUMMARY | ~2020-06-29 | XMS | Encounter Summary ---
Demographics + + + | Address | [address] | | | [place] [address] | + + + | Home Phone [...] Team Providers + +------+ + | Care Tone Cabinet Assembler Name | Role | Phone | [...] | Renal mass | MD Ash | [facility] [address] | | | | | Procedures | [address] | [address] | | | | | US BIOPSY | [facility] | [facility] [place] | | | | | LIVER WITH | Rd | [facility], | | | | | GUIDANCE | [facility] [place] | 10th Floor | | | | | ABDOMEN | [address] | [facility] [place] | | | | | BIOPSY | Phone: | [phone] | | | | | REQUEST PA | [phone] | Phone: | | | | | BIOPSY OF | Fax: | [phone] | | | | | LIVER, | [phone] | Fax: | | | | | NEEDLE, | | [phone] | | | | | PERCUTANEOUS | | | | | | | PA RAFAEL | | | | | | | GUIDE FOR | | | | | | | NEEDLE | | | | | | | PLACEMENT | | | +--------+--------+ + + + + Encounter Details +--------+ + + + + | Date | Type | Department | Care Team | Description | +--------+ + + + + | 08/08/ | Hearing Officer | [facility] | Ash Cavazos MD | Renal mass (Primary | | 2019 | | Clinics at S | [address] | Dx) | | | | [facility] [address] | [facility] [place], | | | | | [facility] for | [place] [address] | | | | | Health and Healing, | [phone] | | | | | [address] | | | | | | [place], [place] | | | | | | [address] | | | | | | [phone] | | | +--------+ + + + [...] pending pathology results Ash Cavazos MD. PhD Master [facility] documented in this [...]
--- OUTSIDE RECORDS SUMMARY | ~2020-06-29 | XMS | Encounter Summary ---
Demographics + + + | Address | [address] | | | [place] [address] | + + + | Home Phone [...] Team Providers + +------+ + | Care Seat Cover Maker Name | Role | Phone | + +------+ + | Lissette Martinez PA-C | PCP | | + +------+ + Encounter Details +--------+ + + + + | Date | Type | Department | Care Team | Description | +--------+ + + + + | 02/22/ | Abstract | Neurosurgery at | [employer], | | | 2019 | | [facility] [address] | Neurosurgery | | | | | [facility] | | | | | | Health and Healing, | | | | | | [facility] | | | | | | [place], [place] | | | | | | [address] | | | | | | [phone] | | | +--------+ + + + [...]
--- OUTSIDE RECORDS SUMMARY | ~2020-06-29 | XMS | Encounter Summary ---
Demographics + + + | Address | [address] | | | [place] [address] | + + + | Home Phone [...] + + + | Author | [facility] | + + + | Organization | [facility] | + + + | Address | Unknown | + + + | Phone | Unavailable | + + + Support + + +---------+ + | Name | Relationship | Address | Phone | + + +---------+ + | William Talavera | ECON | Unknown | | + + +---------+ + Care Team Providers + +------+ + | Care Merchandising Execution Manager Name | Role | Phone | + +------+ + | Lissette Martinez PA-C | PCP | | + +------+ + Encounter Details +--------+ + + + + | Date | Type | Department | Care Team | Description | +--------+ + + + + | 06/06/ | Lab | [facility] [address] | Unknown . | | | 2020 | Requisition | [address] | | | | | | [place], [place] | | | | | | [address] | | | +--------+ + + + [...] as of this encounter Plan of Treatment + +------+--------+ + + | Name | Type | Priori | Associated Diagnoses | Date/Time | | | | ty | | | + +------+--------+ + + | [facility] PROCESS ONLY | Lab | Routin | Encounter for | 08/16/2019 4:04 PM | | | | e | other screening for | PST | | | | | genetic and | | | | | | chromosomal | | | | | | anomalies | | + +------+--------+ + + documented as of this encounter Visit Diagnoses + + | Diagnosis | + + | Encounter for other screening for genetic and chromosomal anomalies | + + documented in this encounter"
--- OUTSIDE RECORDS SUMMARY | ~2020-06-29 | XMS | Encounter Summary ---
Demographics + + + | Address | [address] | | | [place] [address] | + + + | Home Phone [...] Team Providers + +------+ + | Care Geriatric Nurse Assistant Name | Role | Phone | [...] | neoplasm of | RADHA Curran | [address] | | | | | unspecified | [place] | [address] | | | | | kidney, | Family | [place], | | | | | except renal | Medicine | [place] [address] | | | | | pelvis | [address] | Phone: | | | | | Procedures | [address] | [phone] | | | | | [place] NEW | Tmi, | Fax: | | | | | PATIENT | [place] [address] | [phone] | | | | | L[place]EL [place] | Phone: | | | | | | EST PATIENT | [phone] | | | | | | LEVEL V | Fax: | | | | | | | [phone] | | + +---------+ + + + + Encounter Details +--------+---------+ + + + | Date | Type | Department | Care Team | Description | +--------+---------+ + + + | 09/12/ | Office | [facility] | Lissette Jones, | Renal cell carcinoma | | 2020 | Visit | Clinics at S | [place] [address] | of left kidney | | | | [place] [address] | (HCC) (Primary Dx) | | | | [facility] for | [place], [place] | | | | | Health and Healing, | [address] | | | | | [address] | [phone] | | | | | [place], [place] | | | | | | [address] | | | | | | [phone] | | | +--------+---------+ + + + [...] + + + | Blood Pressure | 104/62 | 09/12/2019 10:05 AM | | | | | PST | | + + + + + | Pulse | 111 | 09/12/2019 10:05 AM | | | | | PST | | + + + + + | Temperature | 36.3 C (97.3 F) | 09/12/2019 10:05 AM | | | | | PST | | + + + + + | Respiratory Rate | - | - | | + + + + + | Oxygen Saturation | 99% | 09/12/2019 10:05 AM | | | | | PST | | + + + + + | Inhaled Oxygen | - | - | | | Concentration | | | | + + + + + | Weight | 91.4 kg (201 lb 9.6 | 09/12/2019 10:05 AM | | | | oz) | PST | | + + + + + | Height | - | - | | + + + + + | Body Mass Index | 36.87 | 08/28/2019 12:14 AM | | | | | PST [...] encounter Progress Notes Lissette Jones MD - 09/12/2019 10:10 AM PSTFormatting of this note might be different fr om the original. FOLLOW-UP NOTE Patient: Tila Altman Date: 09/12/2019 : 1965 AGE: 54 y.o. Attending Physician: [...] hypercalcemia Interval History Tila Altman presents today to discuss treatment options. She is s/p hospitalization for T2 compression fracture pain (s/p kyphoplasty) and also IVF and pamidronate therapy for hyp ercalcemia. Pain is now controlled with prn oxycodone, she is able to get around with walker and take care of herself. Her pain is more muscular "achiness" now. Impression/Plan Tila Altman is a 54 y.o. woman with Tila Altman is a 54 y.o. 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 She has a remote h/o Hodgkins s/p CHOPP and RT with resultant hypothyroidism Hypercalcemia- resolved, now hypocalcemic Hypothyroidism- synthroid 137mcg po qday Hyperkalemia- lactulose x 1, repeat next week Pain - continue oxycodone prn Repeat UA, cbc, cmp today Initiate nivo/ipi (she isn't eligible for clinical trial due to proteinuria) Medications: Current Outpatient Medications Medication Sig acetaminophen 500 mg oral tablet Take 2 tablets by mouth three times daily as needed fo r mild pain. cholecalciferol 50,000 unit oral capsule Take 1 capsule by mouth once daily. Indication s: vitamin D deficiency (high dose therapy) lactulose 10 gram/15 mL oral solution Take 15 mL by mouth once for 1 dose. levothyroxine 137 mcg oral tablet Take 1 [...] Coherent speech. Appropriate mood/affect. Laboratory: LAB RESULTS: Lab on 09/12/2019 Component Date Value GLUCOSE, PLASMA (LAB) 09/12/2019 107* BUN, PLASMA (LAB) 09/12/2019 23* CREATININE PLASMA (LAB) 09/12/2019 1.31* EGFR - SYRIAN 09/12/2019 51* EGFR NON -SYRIAN 09/12/2019 42* SODIUM, PLASMA (LAB) 09/12/2019 138 POTASSIUM, PLASMA (LAB) 09/12/2019 5.7* CHLORIDE, PLASMA (LAB) 09/12/2019 104 TOTAL CO2, PLASMA (LAB) 09/12/2019 25 CALCIUM, PLASMA (LAB) 09/12/2019 10.5* CALCIUM(ALB CORRECTED) 09/12/2019 11.6* BILIRUBIN TOTAL 09/12/2019 0.7 TOTAL PROTEIN, PLASMA (L* 09/12/2019 6.5 ALBUMIN, PLASMA (LAB) 09/12/2019 2.6* ALK PHOS 09/12/2019 120* AST(SGOT) 09/12/2019 45* ALT (SGPT) 09/12/2019 19 ANION GAP 09/12/2019 9 ANION GAP(ALB CORRECTED) 09/12/2019 12* POTASSIUM CMNT 09/12/2019 No Hemo BILI T CMNT 09/12/2019 No Hemo AST CMNT 09/12/2019 No Hemo BUN/CREATININE RATIO 09/12/2019 18 GLOBULIN LVL 09/12/2019 3.9* ALBUMIN/GLOBULIN RATIO 09/12/2019 0.7* RED CELLS 09/12/2019 400* WHITE CELLS 09/12/2019 1 BACTERIA 09/12/2019 Few* YEAST (LAB) 09/12/2019 None SQUAMOUS EPITHELIAL 09/12/2019 Few MUCOUS 09/12/2019 None NON-SQUAMOUS EPITH 09/12/2019 None HYALINE CASTS 09/12/2019 0 GRANULAR CASTS 09/12/2019 0 CELLULAR CASTS 09/12/2019 0 TRIPLE P04 CRYSTALS 09/12/2019 None CALCIUM OXALATE MILAN 09/12/2019 None URIC ACID CRYSTALS 09/12/2019 None AMORPHOUS CRYSTALS 09/12/2019 None COLOR(UR) 09/12/2019 Catrina* APPEARANCE 09/12/2019 Cloudy* GLUCOSE(UR) 09/12/2019 100.0 PROTEIN(LAB) 09/12/2019 =>300.0 * BILIRUBIN 09/12/2019 Small* UROBILINOGEN 09/12/2019 0.2 PH(UR) 09/12/2019 7.0 BLOOD 09/12/2019 Large* KETONES 09/12/2019 Negative NITRITES 09/12/2019 Negative LEUKOCYTE ESTERASE 09/12/2019 Negative SPECIFIC GRAVITY 09/12/2019 1.025 WHITE CELL COUNT 09/12/2019 4.02 RED CELL COUNT 09/12/2019 4.12 HEMOGLOBIN 09/12/2019 11.5* HEMATOCRIT 09/12/2019 37.2 MCV 09/12/2019 90.3 MCHC 09/12/2019 30.9* RDW SD 09/12/2019 55.8* PLATELET COUNT 09/12/2019 195 MPV 09/12/2019 8.4* NRBC% 09/12/2019 0.0 NRBC# 09/12/2019 0.00 NEUTROPHIL % 09/12/2019 75.7* LYMPHOCYTE % 09/12/2019 12.4* MONOCYTE % 09/12/2019 9.2* EOS % 09/12/2019 1.2 BASO % 09/12/2019 1.0 IG% 09/12/2019 0.5 NEUTROPHIL # 09/12/2019 3.04 NEUTROPHIL # Prelim 09/12/2019 3.04 LYMPHOCYTE # 09/12/2019 0.50* MONOCYTE # 09/12/2019 0.37 EOS # 09/12/2019 0.05 BASO # 09/12/2019 0.04 IG# 09/12/2019 0.02 Lissette Jones MD documented in this e ncounter Plan of Treatment Not on filedocumented as of this encounter Results UA, DIPSTICK ONLY (09/12/2019 [...] | + + + + + | [facility] | [address] | [place] [address] | | | [facility] | | | | | HEALTH [...] LABORATORY | | | | | | [facility], | | | | | | CENTER [...] LABORATORY | [address] | [place] [address] | | | SERVICES, CENTER FOR | [...] | | | LABORATORY | | | SYRIAN | | | SERVICES, | | | [...] | + + + + + | [facility] | [address] | [place] [address] | | | SERVICES, [facility] | | | | | HEALTH + HEALING | | | | + + + + + documented in this encounter Visit Diagnoses + + | Diagnosis | + + | 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) - Primary | + + documented in this encounter
--- OUTSIDE RECORDS SUMMARY | ~2020-06-29 | XMS | Encounter Summary ---
Demographics + + + | Address | [address] | | | [place] [address] | + + + | Home Phone [...] Team Providers + +------+ + | Care Jersey Knitter Name | Role | Phone | + [...] | | Clinics at S | [place] [address] | Adjustment | | | | [place] [address] | | | | | [facility] for | [place], [place] | | | | | Health and Healing, | [address] | | | | | [address] | [phone] | | | | | [place], [place] | | | | | | [address] | | | | | | [phone] | | | +--------+ + + + [...] PST Addended by: GIOVANNA TOMAS RN on: 10/11/2019 02:17 PM Modules accepted: Orders elephone Encounter - Giovanna Saldivar RN - 10/11/2019 2:14 PM PSTRx sent to local pharmacy. Pt notified via [employer] ectronically signed by Giovanna Tomas RN at 10/11/2019 2:17 PM PSTTelephone Encounter - Giovanna Tomas RN - 10/11/2019 1:10 PM PSTTSH 18.4 on 10/10/19. Called pt who confirms she is taking le vothyroxine 137 mcg daily. Advised pt Dr. Jones would likely want to increase her dose and we can notify her when new script sent via Simple. Pt would like script to be sent to [facility] in [place]. Routed to Dr. Jones for review. P M PSTdocumented in this encounter Plan of Treatment Not on filedocumented as of this encounter Visit Diagnoses Not on filedocumented in this encounter"
--- OUTSIDE RECORDS SUMMARY | ~2020-06-29 | XMS | Encounter Summary ---
Demographics + + + | Address | [address] | | | [place] [address] | + + + | Home Phone | | + + + | Preferred Language | Unknown | + + + | Marital Status | Single | + + + | Voodoo Affiliation | CHR | + + + [...] Team Providers + +------+ + | Care Glue Mill Operator Name | Role | Phone | [...] | | Clinics at S | [place] [address] | | | | | [place] [address] | | | | | [facility] for | [place], [place] | | | | | Health and Healing, | [address] | | | | | [address] | [phone] | | | | | [place], [place] | | | | | | [address] | | | | | | [phone] | | | +--------+--------+ + + + [...] Jones MD is scheduled on 02/13/20. Last [facility] progress note reviewed. Is there documentation to indicate that medication being r equested has been changed or discontinued? No Allergy list reviewed--Is the medication being requested on the patient's current allergy l ist? No Previous Prescription Details copied below: Date and Time Department Ordering/Authorizing 01/02/2020 9:34 AM [facility] Lissette Jones MD Outpatient Medication Detail Disp Refills OXYCODONE (IMMEDIATE RELEASE) 5 mg oral tablet 60 tablet 0 Sig: Take 1 tablet by mouth every four hours as needed for breakthrough pain. Sent to pharmacy as: oxyCODONE 5 mg tablet (ROXICODONE) Class: eRx Earliest Fill Date: 01/02/2020 Route: oral Order: [id number] E-Prescribing Status: Receipt confirmed by pharmacy (01/02/2020 9:34 AM PDT) Per [facility] policy, routing encounter to [facility] for review and approval. elephone [...] your pharmacy to refill?: Yes, but the [facility]'s pharmacy has not received a response back. Name of medication: Oxycodone Dose: 5 mg Frequency - How often are you taking it?: 1 tablet every 4 hours as needed How much of the prescription do you have left - When will you run out?: none left Pharmacy the patient wants the prescription refilled at: [facility] in [place] Is it ok to leave a confidential [...]
--- OUTSIDE RECORDS SUMMARY | ~2020-06-29 | XMS | Encounter Summary ---
Demographics + + + | Address | [address] | | | [place] [address] | + + + | Home Phone [...] Team Providers + +------+ + | Care Wood Cabinetmaker Name | Role | Phone | + +------+ + | Lissette Martinez PA-C | PCP | | + +------+ + Encounter Details +--------+ + + + + | Date | Type | Department | Care Team | Description | +--------+ + + + + | 11/07/ | MyChart | [facility] | Lissette Jones, | RE: Rx refill | | 2020 | Encounter | Clinics at S | [place] [address] | | | | | [place] [address] | | | | | [facility] for | [place], [place] | | | | | Health and Healing, | [address] | | | | | [address] | [phone] | | | | | [place], [place] | | | | | | [address] | | | | | | [phone] | | | +--------+ + + + [...] Telephone Encounter - Ariana Garcia MA - 11/09/2019 2:49 PM PSTFormatting of this not e might be different from the original. Last appointment with Hipolito Jones MD was on 11/01/19. Next appointment with Hipolito Jones MD is scheduled on 11/21/19. Last LIP progress note reviewed. Is there documentation to indicate that medication being r equested has been changed or discontinued? No Allergy list reviewed--Is the medication being requested on the patient's current allergy l ist? No Previous Prescription Details copied below: Date and Time Department Ordering/Authorizing 10/17/2019 2:04 PM Hematology/Medical Oncology at [facility] Lissette mcgraw MD Outpatient Medication Detail Disp Refills oxyCODONE (immediate release) 5 mg oral tablet 90 tablet 0 Sig: Take 1 tablet by mouth every four hours as needed for breakthrough pain (1 to 2 tablet s PO every 4 hours as needed for breakthough pain). Sent to pharmacy as: oxyCODONE 5 mg tablet (ROXICODONE) Class: eRx Earliest Fill Date: 10/17/2019 Route: oral Order: [id number] E-Prescribing Status: Receipt confirmed by pharmacy (10/17/2019 2:05 PM PST) Controlled Substance Requested: Routing to RN Coordinator for review prior to sending to [facility] V[facility] elephone Encounter - Irene Graham - 11/09/2019 11:25 AM PSTMedication Refill Request Ambulatory Oncology What is the name of the provider for this prescription refill request?: Karen Medication prescribed by [facility] Palliative Care LIP Name of medication: oxyCODONE (immediate release) *pt states per the The Tech[employer] message, she called her pharmacy. Her pharmacy said since she poe s no refills she needs to call us directly. Dose: 5 mg oral tablet Frequency - How often are you taking it?: 4 tablets/day How much of the prescription do you have left - When will you run out?: 6-8 tablets left Pharmacy the patient wants the prescription refilled at: [id number] - [facility], [place] - [address] [facility] [phone] Is it ok to leave a confidential voicemail?: Patient approves confidential and detailed mes sages left on answering machine and voicemail. Patient reminded of Clinic Refill Policy: 48-72 business hours to process refill requests. Routed to [facility] documented in this encounte r Plan of Treatment Not on filedocumented as of this encounter Visit Diagnoses Not on filedocumented in this encounter"
--- OUTSIDE RECORDS SUMMARY | ~2020-06-29 | XMS | Encounter Summary ---
Demographics + + + | Address | [address] | | | [place] [address] | + + + | Home Phone [...] Team Providers + +------+ + | Care Campaign Associate Name | Role | Phone | + +------+ + | Lissette Martinez PA-C | PCP | | + +------+ + Encounter Details +--------+ + + + + | Date | Type | Department | Care Team | Description | +--------+ + + + + | 02/22/ | Procedure | Diagnostic Imaging | | | | 2019 | Pass | Services at [facility] | | | | | | [address] | | | | | | [place] | | | | | | [facility] | | | | | | [place], [place] | | | | | | [address] | | | | | | [phone] | | | +--------+ + + + [...]
--- OUTSIDE RECORDS SUMMARY | ~2020-06-29 | XMS | Encounter Summary ---
Demographics + + + | Address | [address] | | | [place] [address] | + + + | Home Phone | | + + + | Preferred Language | Unknown | + + + | Marital Status | | + + + | Christianity Affiliation | 1013 | + + + | Race | or Other | + + + | Ethnic Group | Not or | + + + Author + + + | Author | [facility] | | | and Shahram | + + + | Organization | [facility] | | | and [place] | [...] Team Providers + +------+ + | Care Vmware Systems Administrator Name | Role | Phone | + [...] | | | [address] | [place] [address] | | | | | [place] [address] | | | | | | [phone] | | | +--------+ + + + [...] +--------+ + + + | NM BONE SCAN SPECT | Routin | 08/23/2019 | | Results for this | | CT | e | 12:05 AM | | procedure are in the | | | | PST | | results section. | + +--------+ + + + documented in this encounter Results NM Bone Scan SPECT CT (08/23/2019 12:05 AM PST) + + | Specimen | [...]
--- OUTSIDE RECORDS SUMMARY | ~2020-06-29 | XMS | Encounter Summary ---
Demographics + + + | Address | [address] | | | [place] [address] | + + + | Home Phone [...] Team Providers + +------+ + | Care Cushion Spring Assembler Name | Role | Phone | [...] | neoplasm of | RADHA Curran | [address] | | | | | unspecified | [place] | [address] | | | | | kidney, | Family | [place], | | | | | except renal | Medicine | [place] [address] | | | | | pelvis | [address] | Phone: | | | | | Procedures | [address] | [phone] | | | | | [place] NEW | [place], | Fax: | | | | | PATIENT | [place] [address] | [phone] | | | | | LEVEL V [place] | Phone: | | | | | | EST PATIENT | [phone] | | | | | | LEVEL V | Fax: | | | | | | | [phone] | | + +---------+ + + + + Encounter Details +--------+---------+ + + + | Date | Type | Department | Care Team | Description | +--------+---------+ + + + | 08/23/ | Office | [facility] | Lissette Jones, | Renal cell carcinoma | | 2019 | Visit | Clinics at S | [place] [address] | of left kidney | | | | [place] [address] | (HCC) (Primary Dx) | | | | [facility] for | [place], [place] | | | | | Health and Healing, | [address] | | | | | [address] | [phone] | | | | | [place], [place] | | | | | | [address] | | | | | | [phone] | | | +--------+---------+ + + + [...]
--- OUTSIDE RECORDS SUMMARY | ~2020-06-29 | XMS | Encounter Summary ---
Demographics + + + | Address | [address] | | | [place] [address] | + + + | Home Phone | | + + + | Preferred Language | Unknown | + + + | Marital Status | | + + + | Hindu Affiliation | 1013 | + + + | Race | or Other | + + + | Ethnic Group | Not or | + + + Author + + + | Author | [facility] | | | and Shahram | + + + | Organization | [facility] | | [...] Team Providers + +------+ + | Care Battery Container Inspector Name | Role | Phone | [...] | | | [address] | [place] [address] | | | | | [place] [address] | | | | | | [phone] | | | +--------+ + + + [...]
--- OUTSIDE RECORDS SUMMARY | ~2020-06-29 | XMS | Encounter Summary ---
Demographics + + + | Address | [address] | | | [place] [address] | + + + | Home Phone [...] Team Providers + +------+ + | Care Medical Housekeeper Name | Role | Phone | + [...] | | 2020 | Support | at [facility] [address] | [address] | | | | Staff | [address] | [address] [place], [place] | | | | | [place] floor | [address] | | | | | [place], [place] | | | | | | [address] | | | | | | [phone] | | | +--------+ + + + [...] of this encounter Progress Notes Sharmila De eLon RN - 03/06/2020 10:30 AM PDTRT unable [...]
--- OUTSIDE RECORDS SUMMARY | ~2020-06-29 | XMS | Encounter Summary ---
Demographics + + + | Address | [address] | | | [place] [address] | + + + | Home Phone | | + + + | Preferred Language | Unknown | + + + | Marital Status | | + + + | Episcopalian Affiliation | 1013 | + + + | Race | or Other | + + + | Ethnic Group | Not or | + + + Author + + + | Author | [facility] | | | and Shahram | + + + | Organization | [facility] | | | and Marcana [...] Team Providers + +------+ + | Care Corrugator Machine Operator Name | Role | Phone | + +------+ + | Lissette Martinez | PCP | | | RADHA | | | + +------+ + Reason for Visit Evaluate & Treat (Routine) +--------+--------+ + + + + | Status | Reason | Specialty | Diagnoses / | Referred By | Referred To | | | | | Procedures | Contact | Contact | +--------+--------+ + + + + | Closed | | Radiation | Diagnoses | Juan, | Janiya, | | | | Oncology | Malignant | Lissette | Aileen Cuello MD | | | | | neoplasm of | Mary, | [address] | | | | | left kidney, | PA-C [address] | | | | | except | [place] | [place], | | | | | renal pelvis | Ave | [place] [address] | | | | | (HCC) | Tim, | Phone: | | | | | [address] | [place] | [phone] | | | | | Procedures | [address] | Fax: | | | | | [place] OFFICE | Phone: | [phone] | | | | | OUTPATIENT | [phone] | | | | | | VISIT 25 | Fax: | | | | | | MINUTES | [phone] | | +--------+--------+ + + + + Encounter Details +--------+ + + + + | Date | Type | Department | Care Team | Description | +--------+ + + + + | 12/06/ | Hospital | [facility] | Aileen Denson | Renal cell carcinoma | | 2020 | Encounter | [facility] | MD Khushboo [address] | of left kidney | | | | ONCOLOGY CLINIC [address] | [place], [place] | (FORMERLY [facility]) (Primary Dx); | | | | [address] | [address] | Compression fracture | | | | [place] [address] | | of L2 vertebra, | | | | [phone] | | initial encounter | | | | | | (FORMERLY [facility]) | +--------+ + + + + Social [...] + | Blood Pressure | 96/53 | 12/07/2019 12:51 PM | | | | | PDT | | + + + + + | Pulse | 107 | 12/07/2019 12:51 PM | | | | | PDT | | + + + + + | Temperature | 37.3 C (99.1 F) | 12/07/2019 12:51 PM | | | | | PDT | | + + + + + | Respiratory Rate | 18 | 12/07/2019 12:51 PM | | | | | PDT | | + + + + + | Oxygen Saturation | 99% | 12/07/2019 12:51 PM | | | | | PDT | | + + + + + | Inhaled Oxygen | - | - | | | Concentration | | | | + + + + + | Weight | 93.1 kg (205 lb 4 | 12/07/2019 12:51 PM | | | | oz) | PDT | | + + + + + | Height | 157.5 cm (5' 2") | 12/07/2019 12:51 PM | | | | | PDT | | + + + + + | Body Mass Index | 37.54 | 12/07/2019 12:51 PM | | | | | PDT | | + + + + + documented in this encounter Discharge Instructions Patient Instructions Leia Mcdowell RN - 12/07/2019 1:00 PM PDTPlan: We would do a radiation planning session, this consists of having a CT scan. This scan is u sed to plan the radiation treatment. Radiation treatment would consist of 10 treatments of r adiation therapy, this would be over a two week period Thursday-Thursday, about 15 minute sessio ns each. Our office will call you to schedule this CT scan, and will work with you to accommodate yo ur schedule. This would be done next week. We will work to get your treatment started the second week of December to try and ensure it is completed before your next immunotherapy session. Anticipating treatment to the L1 and L2 area. Radiation will go through the spinal cord, so me radiation will come through the intestines, which can cause some abdominal bloating, loos e stool, skin discoloration tanning or pinkness to skin can happen, as well as mild nausea i s a possibility. It will be a high priority to stay off the kidney. documented in this encounter Medications at Time [...] mg by mouth. | | 0 | / | | | (PRILOSEC) 20 mg | | | | 19 | | | capsule | | | | | | + + + +---------+ + + | oxyCODONE | Take 5 mg by mouth | | 0 | /01/24 | | | (ROXICODONE) 5 mg | [...] documented as of this encounter Progress Notes Aileen Denson MD - 12/07/2019 1:00 PM PDT Radiation Oncology Consultation Chief Complaint: Tila Altman is a 54 y.o. female seen today as a new patient at the request of Jasen Martinez* for evaluation and consideration of radiotherapeutic treatment. The primary encounter diagnosis was 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). A diagnosis of Compression fracture of L2 vertebra, initial encounter (HCC) was also pertinent to this v isit. History of Present Illness: Tila developed left-sided back pain in June, initially evaluated by a chiropractor anish rios. An urgent care visit and treatment with Flexeril was also ineffective. Paola mojica presented to the emergency department on 07/27/[address] CT was performed . 07/27/2019 CT Abdomen and pelvis with large L sided renal lesion invading into renal vein, large retroperitoneal lymph node and also liver lesions. 08/16/2019 liver biopsy- clear cell carcinoma of kidney 08/23/19 Bone scan: Lytic lesion at L2, no other suspicious lesions. 08/24/2019 CT scan -large confluent of hepatic metastases, L sided renal mass measuring up to 3.5 cm, malignant appearing periaortic lymph nodes measuring up to 3.6 cm lytic lesion at L2 with pathologic compression fracture. 08/24- 09/01/2019 hospitalization for hypotension, hypercalcemia and pain 08/27/2019 CT head: No acute findings 08/29/2019 L2 kyphoplasty 08/30/2019 MRI brain negative for metastatic disease 11/21/2019 Hospitalization at [facility] for hypotension, found to have massive pulmonary embloism . 11/21/2019 CT chest/abdomen/pelvis at [facility] stable left renal mass. Stable retroperitoneal ad enopathy. Liver lesions poorly visualized without IV contrast, stable to slightly increased. New L1 compression deformity with possible underlying lesion. Further compression fractur e of L2, status post kyphoplasty. Stable pulmonary nodules, inflammatory versus malignant. Current Treatment : Continues immunotherapy at [facility] with ipilimumab/nivolulmab on trail every 3 weeks, next rishi atment is 12/12/19. She has completed at least 3 cycles. Reports that she now has a dull throb or ache in the lower back, same area as before. Repor ts that the pain has been stable over the last couple of months. Became aware of an addition al small L1 fracture at last hospitalization. Reports leg weakness has only come on more sin ce hospitalization, has been trying to regain this strength. Denies any radiation of pain do wn the legs, privates, or issues with urination. Ambulates with a walker. She as lost at [address] 30 lbs over the past 1.5 yrs. Oncology history also notable for Hodgkins disease 2001 s/p CHOP and mantel XRT to 3600 cGy . Review of systems: Constitutional: Reports energy level has been gradually increasing after being hospitalized . Reports that appetite has improved. Denies fatigue. Denies high fevers, shaking chills, an orexia, nausea, vomiting, weight loss, or night sweats. Ear, Nose, Mouth, Throat: Denies odynophagia, dysphagia, or tinnitus. Cardiovascular: Reports dyspnea with moderate exertion, resolves with rest. Denies shortnes s of breath, dyspnea on exertion, chest pain, palpitations or orthopnea. Respiratory: Reports morning cough and sputum production, clear in color, ongoing issue not new. Denies hemoptysis. Gastrointestinal: Denies abdominal pain, constipation, diarrhea, melena, or bright red bloo d per rectum. Genitourinary: Reports less urine output than she would expect, on 2000 ml liquid restricti on. Denies hematuria or dysuria. Musculoskeletal: Denies joint pain or tenderness. Neurologic: Denies headache, visual changes, or numbness/tingling of the extremities. Endocrine: Reports peripheral edema in bilateral lower extremities, reports she has been re taining fluids, only one kidney working right now, and has had some weight gain due to this since her hospitalization. Denies heat/cold intolerance. Hematologic: Reports bruises easily, currently on Lovenox injections. Denies spontaneous br uising or bleeding. Integumentary: Denies rash, wounds or other skin concerns. Pain: Reports lower back pain, rates it 4/10 on scale of 0-10, taking oxycodone, takes one tablet every 4-5 hours and this provides the relief needed per patient. Note: Patient there today for renal cell carcinoma with spine mets. My chart: Pending Pain assessment: Location: lower back Pain Level: PAIN PROG PAIN LEVEL: 4 Pain Quality: Constant, Dull, Aching Current pain regimen: oxycodone 5 mg tablet every 4-5 hours. Questionnaires: Have you ever had radiation treatment: yes Comments: in 2003 on her chest Do you have a pacemaker or ICD: no Are you claustrophobic? no Do you have a connective tissue disorder such as Lupus, Scleroderma, or other: no Do you have the ability to become : no No current outpatient medications on file. No current facility-administered medications for this visit. Allergies Not on File Intolerance Not on File No past medical history on file. Past Surgical History: Procedure Laterality Date LIVER BIOPSY 08/16/2019 Procedure: US GUIDED LIVER BIOPSY - Location: [facility] No family history on file. Social History Socioeconomic History Marital status: Single Spouse name: Not on file Number of children: Not on file Years of education: Not on file Highest education level: Not on file Occupational History Not on file Social Needs Financial resource strain: Not on file Food insecurity: Worry: Not on file Inability: Not on file Transportation needs: Medical: Not on file Non-medical: Not on file Tobacco Use Smoking status: Not on file Substance and Sexual Activity Alcohol use: Not on file Drug use: Not on file Sexual activity: Not on file Lifestyle Physical activity: Days per week: Not on file Minutes per session: Not on file Stress: Not on file Relationships Social connections: Talks on phone: Not on file Gets together: Not on file Attends jew service: Not on file Active member of club or organization: Not on file Attends meetings of clubs or organizations: Not on file Relationship status: Not on file Intimate partner violence: Fear of current or ex partner: Not on file Emotionally abused: Not on file Physically abused: Not on file Forced sexual activity: Not on file Other Topics Concern Not on file Social History Narrative Not on file Physical Exam: Vitals: 12/07/19 1251 BP: 96/53 Pulse: 107 Resp: 18 Temp: 37.3 C (99.1 F) PainSc: 4 12/07/19 93.1 kg (205 lb 4 oz) General: Healthy appearing adult female in no acute medical distress. KPS: 60 HEENT: Pupils equal, round and reactive to light. No conjunctival icterus or injection. EOM I. Oral, moist mucus membranes. Lymphatic: No cervical, supraclavicular or axillary lymphadenopathy. Cardiovascular: Mild tachycardia noted and rhythm, no murmur. Pulmonary: fine crackles in bilateral bases noted. Breath sounds heard throughout, no adven titial sounds or increased work of breathing at rest. Extremities: +3 pitting edema in bilateral lower extremities. Upper and lower extremities w arm and well perfused with no upper edema. Neurologic: Alert, oriented and appropriated in conversation. CN II-IX grossly intact. Moves all 4 extremities normally with supported and cautious gait. Psychiatric: Appropriate. Imaging: Imaging studies were directly visualized and my assessment of pertinent finding are detaile d above in the HPI. Pathology: 08/16/2019 liver biopsy Liver mass, needle biopsy: Metastatic renal cell carcinoma, clear cell type [see comment] Comment: The malignant cell population is positive for PAX8 and CA-9 while negative for CK 7, HepPar-1, Arginase, Glypican 3, p63 and MARY-3 consistent with renal cell carcinoma. A r eticulin stain was performed and reviewed. Assessment: ICD-10-CM ICD-9-CM 1. 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) C64.2 189.0 2. Compression fracture of L2 vertebra, initial encounter ([facility]) S32.020A 805.4 Today I met with Tila and reviewed the above outlined history, diagnostic work-up and rishi atment to date. She remains in very high spirits, but is bothered by increasing lumbar pain and some lower extremity weakness. Weakness is also felt to be more related to decondition ing and suha neurologic compromise. We reviewed the role of palliative radiation in decrea sing pain from metastatic skeletal lesions, additionally radiation to decrease her risk for progressive disease at that site and risk for neurologic compromise. She continues on syste khalif therapy with ipilimumab and nivolumab, on clinical trial at [facility]. We will plan to inter digitate treatment between cycles, however she will likely need to miss 1 cycle. Recommend a course of 30 Gy in 10 fractions, spanning 2 weeks. The procedures involved in preparation and treatment planning for external beam irradiation were discussed in detail including the process of simulation and treatment delivery. A det priti discussion regarding the potential short and long-term side effects of radiation treat ment occurred next. Tila verbalized understanding of the treatment recommendation and wish es to proceed to simulation when appropriate. Plan/Patient Instruction: Plan: We would do a radiation planning session, this consists of having a CT scan. This scan is u sed to plan the radiation treatment. Radiation treatment would consist of 10 treatments of r adiation therapy, this would be over a two week period Thursday-Thursday, about 15 minute sessio ns each. Our office will call you to schedule this CT scan, and will work with you to accommodate yo ur schedule. This would be done next week. We will work to get your treatment started the second week of December to try and ensure it is completed before your next immunotherapy session. Anticipating treatment to the L1 and L2 area. Radiation will go through the spinal cord, so me radiation will come through the intestines, which can cause some abdominal bloating, loos e stool, skin discoloration tanning or pinkness to skin can happen, as well as mild nausea i s a possibility. It will be a high priority to stay off the kidney. The information found at www.rtanswers.org was advised for further information specific to radiation therapy. Tila was encouraged to call our clinic with any further questions or c oncerns. Thank you for allowing me to participate in the care of Tila. If you should have any ques tions regarding this evaluation, please do not hesitate to contact me. Aileen Denson M.D. Radiation Oncologist Department of Radiation Oncology [facility] Office: [phone] signed by Aileen Denson MD at 05/31/2020 10:41 AM P DTdocumented in this encounter Plan of Treatment Not on filedocumented as of this encounter Visit Diagnoses + + | Diagnosis | + + | 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) - Primary | + + | Compression fracture of L2 vertebra, initial encounter (HCC) | + + documented in this encounter
--- OUTSIDE RECORDS SUMMARY | ~2020-06-29 | XMS | Encounter Summary ---
Demographics + + + | Address | [address] | | | [place] [address] | + + + | Home Phone [...] Team Providers + +------+ + | Care Python Web Developer Name | Role | Phone [...] Roshan | Adjustment | | | | [address] [place] | [address] | (dexamethasone | | | | Pavilion, 4th floor | [place], [place] | taper) | | | | [place], [place] | [address] | | | | | [address] | [phone] | | | | | [phone] | | | +--------+ + + + [...] 03/15/2020 4:11 PM PDTSpoke with Tila via Bedloo. Gave her the verbal instructions for dexamethasone taper. Tila requested that I send her these instructions via [employer] which I did. Also eRx'd 2mg dexamethasone tabs to [facility]. No further questions. TTelephone Encounter - Hemanth Cardenas RN - 03/14/2020 11:09 AM PDTCalled patient, antonino lassitere r, left voicemail to return call. Need [...]
--- OUTSIDE RECORDS SUMMARY | ~2020-06-29 | XMS | Encounter Summary ---
Demographics + + + | Address | [address] | | | [place] [address] | + + + | Home Phone [...] Team Providers + +------+ + | Care Digital Designer Name | Role | Phone | + +------+ + | Lissette Martinez PA-C | PCP | | + +------+ + Encounter Details +--------+ + + + + | Date | Type | Department | Care Team | Description | +--------+ + + + + | 11/28/ | Telephone | [facility] | Farrukh Hall MD | | | 2020 | | [facility] | [address] | | | | | [facility] | [address] [place], | | | | | [address] | [place] [address] | | | | | [address] | [phone] | | | | | [facility] | | | | | | Physician's | | | | | | Pav[facility] [place], | | | | | | [place] [address] | | | | | | [phone] | | | +--------+ + + + [...] this encounter Miscellaneous Notes Telephone Encounter - Dima Conn - 11/29/2019 3:56 PM PDT----- Message from Dima Frederick enedelia sent at 11/29/2019 3:55 PM PDT ----- Regarding: RE: Schedule Follow Up Have pt scheduled for 12/15 at 9:[address] Hall. LVM informing pt of appt and ask that s he call back to confirm ----- Message ----- From: Maggy Newell Sent: 11/28/2019 1:07 PM PDT To: Peggy Yoon MD, Farrukh Hall MD, # Subject: RE: Schedule Follow Up [facility], Please see Dr. Yoon' and Isabel's instructions below for followup. Thank you! Maggy ----- Message ----- From: Farrukh Hall MD Sent: 11/23/2019 2:40 PM PDT To: Peggy Yoon MD, [facility] Subject: RE: Schedule Follow Up Agree. ----- Message ----- From: Peggy Yoon MD Sent: 11/23/2019 2:03 PM PDT To: Farrukh Hall MD, [facility] Subject: Schedule Follow Up Please schedule follow up with me or Dr Hall who saw her in patient within 1 month Okay to do phone appointment if COVID concerns Do not need new patient slot since we saw her inpatient documented in this encount er Plan of Treatment Not on filedocumented as of this encounter Visit Diagnoses Not on filedocumented in this encounter"
--- OUTSIDE RECORDS SUMMARY | ~2020-06-29 | XMS | Encounter Summary ---
Demographics + + + | Address | [address] | | | [place] [address] | + + + | Home Phone | | + + + | Preferred Language | Unknown | + + + | Marital Status | | + + + | Methodist Affiliation | 1013 | + + + | Race | or Other | + + + | Ethnic Group | Not or | + + + Author + + + | Author | [facility] | | | and Shahram | + + + | Organization | [facility] | | [...] Team Providers + +------+ + | Care Graves Registration Specialist Name | Role | Phone | [...] | | | [address] | [place] [address] | | | | | [place] [address] | | | | | | [phone] | | | +--------+ + + + [...] + | CT HEAD WO CONTRAST | Routin | 08/27/2019 | | Results for this | | | e | 12:00 AM | | procedure are in the | | | | PST | | results section. | + +--------+ + + + documented in this encounter Results CT Head wo Contrast (08/27/2019 12:00 AM PST) + + | Specimen [...]
--- OUTSIDE RECORDS SUMMARY | ~2020-06-29 | XMS | Encounter Summary ---
Demographics + + + | Address | [address] | | | [place] [address] | + + + | Home Phone [...] Team Providers + +------+ + | Care Casting Chipper Name | Role | Phone | + +------+ + | Lissette Martinez PA-C | PCP | | + +------+ + Reason for Visit +--------+--------+ + | Reason | Onset | Comments | | | Date | | +--------+--------+ + | Other | 10/14/ | Patient left voicemail requesting call back about a | | | 2020 | prescription | +--------+--------+ + Encounter Details +--------+--------+ + + + | Date | Type | Department | Care Team | Description | +--------+--------+ + + + | 10/14/ | Refill | [facility] | KarenLissette, | Other (Patient left | | 2019 | | [facility] | [place] [address] [address] | voicemail requesting | | | | [facility] [address] | call back about a | | | | [facility] for | [place], [place] | prescription ) | | | | [facility], | [address] | | | | | [place] [address] | [phone] | | | | | [place], [place] | | | | | | [address] | | | | | | [phone] | | | +--------+--------+ + + + [...] Telephone Encounter - Giovanna Tomas RN - 10/17/2019 2:38 PM PSTCalled to advise pt we sent o brandin new script for 5 mg oxyCODONE. Left voicemail and asked she call with further questions. elephone Encounter - Giovanna Tomas RN - 10/17/2019 12:44 PM PSTCall [facility] [place] Pharmacists state s Dr. Jones can send over new script for oxyCODONE 5 mg and should be covered by insurance. Routed to Dr Jones for review. elephone Encounter - Ellie Johns MA - 10/14/2019 5:21 PM PSTReturned call to pt to get more information about what prescription she has questions about. Pt stated Dr. Jones renewed her oxyCODONE on 10/10. Pt states the prescription that was sent i n was for oxyCODONE (immediate release) 10 mg oral tablet pt has had reaction from this dosa ge and prefers oxyCODONE 5 mg white tablet. Pt called pharmacy to ask if she can return the medication but they told pt that is not an option and to reach out to her provider to reque st a different dosage. Pt also wondering where she can dispose of the oxyCODONE (immediate release) 10 mg oral tab let as she will not be taking them. I let pt know I was unsure of where and that I would ask and see what I can find out. elephone Encounter - Sara Horan - 10/14/2019 12:27 PM PSTPatient left voicemail at 10:56am Patient requests call back, states needs to talk about a prescription. PAS called patient back and left voicemail requesting call back for clarification, but stat ed would get message with patients request for call back to team. Routing to C documented in this encounter Plan of Treatment Not on filedocumented as of this encounter Visit Diagnoses Not on filedocumented in this encounter"
--- OUTSIDE RECORDS SUMMARY | ~2020-06-29 | XMS | Encounter Summary ---
Demographics + + + | Address | [address] | | | [place] [address] | + + + | Home Phone [...] Team Providers + +------+ + | Care Registered Diet Technician Name | Role | Phone | [...] | Medical Diagnosis | | | | [place] [address] | [facility] | | | | | [address], [address]th floor | [place], [place] | | | | | [place], [place] | [address] | | | | | [address] | [phone] | | | | | [phone] | | | +--------+ + + + [...] be sufficient information for her submission to [facility]. I told her if they should need anything else to please call us and we would be happy to pro vide more documentation for her. documented in this encounter Plan of Treatment Not on filedocumented as of this encounter Visit Diagnoses Not on filedocumented in this encounter"
--- OUTSIDE RECORDS SUMMARY | ~2020-06-29 | XMS | Encounter Summary ---
Demographics + + + | Address | [address] | | | [place] [address] | + + + | Home Phone [...] Team Providers + +------+ + | Care Bank Clerk Name | Role | Phone | [...] | 07/10/ | Telephone | Pharmacy @ [facility] | Remy Bess, | Oral Chemo | | 2020 | | [address] | Sarah [address] [facility] | (Cabdianaantinib) | | | | Colin Frank Mailcode: | Frederick Sawyer | | | | | [facility] | [place], [place] | | | | | and [place], | [address] | | | | | Building [address] | | | | | | [place], [place] | | | | | | [address] | | | +--------+ + + + [...] Subject: Note TC: Faxed lab orders to [facility] in [place] -->Note to RNC: FYI ddendum Note - Zunilda Padilla RN - 04/02/2020 3:26 PM PDT Addended by: ZUNILDA PADILLA RN on: 04/02/2020 03:26 PM Modules accepted: Orders elephone Encount er - Zunilda Padilla RN - 04/02/2020 3:24 PM PDT -->[facility] TC: Please fax cbc and cmp lab orders to [facility] in [facility]. elephone Encounter - Zunilda Padilla RN - 04/02/2020 3:04 PM PDTCalled Tila-she has follow up set up for 04/23. Asked her to have labs drawn prior to her follow up appt. Patient requesting to hav e labs drawn locally in [facility] lab. Lab orders in place.Electronically sign ed by Zunilda Padilla RN at 04/02/2020 3:24 PM PDTAddendum [...] Prescription: The prescription will be filled at [facility] Special[facility] pharmacy. The patient will have the [...] updated. No significant drug interactions identified using [employer] resource. Monitoring/Supportive Care: The following labs and/or [...] - Care Planning:: 25 Minutes Spent Called [facility] and confirmed that they received the prescription. They have processed it through the insurance and plan to ship to the patient to arrive on Thursday, 03/30. elephone E Pina Dela Cruz PharmD - 03/26/2020 2:34 PM PDTPharmacy Documentation O ral Chemotherapy - Prescription Transferred:: 10 Minutes Spent Prescription for cabozantinib transferred to [facility]. The patient needs to b [...] 03/21/21. The medication must be filled at [facility] specialty pharmacy [phone]. PharmD please reroute the Rx elephone Encounter [...] submitted fr CABOMETYX 40MG T LEONEL through [employer] [facility] via [employer] gonsales: ANCLYRLH documented [...]
--- OUTSIDE RECORDS SUMMARY | ~2020-06-29 | XMS | Encounter Summary ---
Demographics + + + | Address | [address] | | | [place] [address] | + + + | Home Phone [...] Team Providers + +------+ + | Care Party Coordinator Name | Role | Phone | + +------+ + PCP | Unavailable | + +------+ + Encounter Details +--------+ + + + + | Date | Type | Department | Care Team | Description | +--------+ + + + + | 05/05/ | Results | | Other, Faculty | | | 2001 | Only | | [phone] | | +--------+ + + + + [...] | | | | | lymph node ([id number]):- | | | | | | Classic [...] Gray, | | | | | | [facility] | | | | | | Group, [place] | | | | | | is a portion of fresh | | | | | | tissue for flow | | | | | | cytometric analysis, | | | | | | oneparaffin block, and | | | | | | one hematoxylin and | | | | | | eosin stained slide | | | | | | [id number] for | | | | | | [...] | + + + + + | [facility] DEPARTMENT OF | [address] [facility] | [place] [address] | | | PATHOLOGY | [address] | | | + + + + + | [facility] DEPARTMENT OF | [address] [facility] | [place] [address] | | | PATHOLOGY | [address] | | | + + + + + documented in this encounter Visit Diagnoses Not on filedocumented in this encounter"
--- OUTSIDE RECORDS SUMMARY | ~2020-06-29 | XMS | Encounter Summary ---
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[facility] & | | | | | carcinoma of | [place] [address] | [employer] | | | | | left kidney | [place] | [address] | | | | | (HCC) | Ct | EMANUEL REILLY | | | | | Procedures | [facility], | ROAD | | | | | CT CHEST, | [place] | [place], [place] | | | | | ABDOMEN AND | [address] | [address] | | | | | PELVIS W IV | Phone: | Phone: | | | | | CONTRAST | [phone] | [phone] | | | | | | Fax: | | | | | | | [phone] | | + +--------+ + + + [...] neoplasm of | E, [place]-C | [place] [address] | | | | | unspecified | [place] | [address] | | | | | kidney, | Family | [place], | | | | | except renal | Medicine | [place] [address] | | | | | pelvis | [address] | Phone: | | | | | Procedures | Pepe Frank | [phone] | | | | | [place] NEW | [place], | Fax: | | | | | PATIENT | [place] [address] | [phone] | | | | | LEVEL [place] | Phone: | | | | | | EST PATIENT | [phone] | | | | | | LEVEL V | Fax: | | | | | | | [phone] | | + +---------+ + + + + Encounter Details +--------+ + + + + | Date | Type | Department | Care Team | Description | +--------+ + + + + | 01/08/ | Telephone-S | [facility] | Lissette Jones, | | | 2019 | gregorduled | Clinics at S | [place] [address] | | | | | [place] [address] | | | | | [facility] | [place], [place] | | | | | Health and Healing, | [address] | | | | | [facility] 2 | [phone] | | | | | [place], [place] | | | | | | [address] | | | | | | [phone] | | | +--------+ + + + [...]
--- OUTSIDE RECORDS SUMMARY | ~2020-06-29 | XMS | Encounter Summary ---
Demographics + + + | Address | [address] | | | [place] [address] | + + + | Home Phone [...] Team Providers + +------+ + | Care Monitoring And Evaluation Advisor Name | Role | Phone | + [...] | | | | cancer, | [place] [address] | | | | | | primary, | [address] | | | | | | with | Ct | | | | | | metastasis | [place], | | | | | | from kidney | [place] | | | | | | to other | [address] | | | | | | site, left | Phone: | | | | | | (HCC) | [phone] | | | | | | Procedures | Fax: | | | | | | [place] BONE &/[place] | [phone] | | | | | | JOINT [...] + + | 08/23/ | Ancillary | [facility] | Lissette Jones, | | | 2019 | Orders | Clinics at S | [place] [address] | | | | | [place] [address] | [address] | | | | | [facility] | [place], [place] | | | | | Health and Healing, | [address] | | | | | [address] | [phone] | | | | | [place], [place] | | | | | | [address] | | | | | | [phone] | | | +--------+ + + + [...]
--- OUTSIDE RECORDS SUMMARY | ~2020-06-29 | XMS | Encounter Summary ---
Demographics + + + | Address | [address] | | | [place] [address] | + + + | Home Phone | | + + + | Preferred Language | Unknown | + + + | Marital Status | | + + + | Catholic Affiliation | 1013 | + + + | Race | or Other | + + + | Ethnic Group | Not or | + + + Author + + + | Author | [facility] | | | and Shahram | + + + | Organization | [facility] | | | and [...] Team Providers + +------+ + | Care Coach Cleaner Name | Role | Phone | + +------+ + | Lissette Martinez | PCP | | | RADHA | | | + +------+ + Reason for Visit + + + | Reason | Comments | + + + | Under Treatment | | + + + Encounter Details +--------+ + + + + | Date | Type | Department | Care Team | Description | +--------+ + + + + | 12/28/ | Hospital | [facility] | Aileen Denson | Secondary cancer of | | 2020 | Encounter | [facility] | [place] Khushboo [address] | bone (HCC) (Primary | | | | ONCOLOGY CLINIC [address] | [facility] [place] | Dx) | | | | [address] | [address] | | | | | [place] [address] | | | | | | [phone] | | | +--------+ + + + [...] + + + +---------+ + + | potassium chloride | Take 10 mEq by mouth | | 0 | 12/27/19 | | | (KLOR-CON) 10 mEq | Daily. | | | 20 | | | CR tablet | | | | | | + + + +---------+ + + | scopolamine | | | 0 | 12/06/19 | | | (TRANSDERM-SCOP) 1 | | | | 20 | | | mg/3 days patch | | | | | | + + + +---------+ + + documented as of this encounter Progress Notes Aileen Denson MD - 12/29/2019 9:45 AM PDT Radiation Oncology Weekly On Treatment Note Diagnosis: ICD-10-CM ICD-9-CM 1. 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 Corre ctions were applied as necessary. No Known Allergies Current Outpatient Medications on File Prior to Encounter Medication Sig Dispense Refill cholecalciferol (D3-50) 1.25 mg (50,000 units) capsule Take 50,000 Units by mouth Once a week. docusate-senna (SENOKOT-S) 50-8.6 mg per tablet Take 1 tablet by mouth. enoxaparin (LOVENOX) 80 mg/0.8 mL injection Inject 80 mg under the skin every 12 hours. levothyroxine (SYNTHROID) 100 mcg tablet Take 100 mcg by mouth. lovastatin (MEVACOR) 20 mg tablet Take 20 mg by mouth. omeprazole (PRILOSEC) 20 mg capsule Take 20 mg by mouth. oxyCODONE (ROXICODONE) 5 mg tablet Take 5 mg by mouth every 6 hours as needed. polyethylene glycol (MIRALAX) powder Take 17 g by mouth. potassium chloride (KLOR-CON) 10 mEq CR tablet Take 10 mEq by mouth Daily. scopolamine (TRANSDERM-SCOP) 1 mg/3 days patch No current facility-administered medications on file prior to encounter. Wt Readings from Last 3 Encounters: 12/29/19 92.3 kg (203 lb 7.8 oz) 12/22/19 93.2 kg (205 lb 7.5 oz) 12/07/19 93.1 kg (205 lb 4 oz) Pain assessment: Location: lower back Pain Level: PAIN PROG PAIN LEVEL: 1 Pain Quality: Aching, dull Current pain regimen: oxycodone Vitals: 12/29/19 1117 BP: 102/55 Pulse: 99 Resp: 20 Temp: 36.7 C (98.1 F) SpO2: 99% Weight: 92.3 kg (203 lb 7.8 oz) Physical Exam Constitutional: She appears well-developed and well-nourished. Neurological: She is alert. Skin: No rash noted. No erythema. Psychiatric: She has a normal mood and affect. Nurse Assessment and Toxicity Grading: Toxicity Flowsheet 12/29/2019 Diarrhea 0 - Grade 0 Nausea 0 - Grade 0 Vomiting 0 - Grade 0 Fatigue 1 - Grade 1 Anorexia 0 - Grade 0 Karnofsky Performance Score 70% Physician Assessment: 12/29/2019: Tila is scheduled to complete radiation tomorrow. She has tolerated treatmen t quite well. He experienced mild nausea at the beginning however this is improved this ivania fairchild Denies any changes in bowels. Reports improved spinal pain since starting radiation. Disposition: Continue radiation treatment as planned. Follow-up with medical oncology at [facility] as directed. Follow-up in my office will be opened, on an as-needed basis. Aileen Denson MD Radiation Oncologist documented in this encounter Plan of Treatment Not on filedocumented as of this encounter Procedures + +--------+ + + + | Procedure Name | Priori | Date/Time | Associated Diagnosis | Comments | | | ty | | | | + +--------+ + + + | IMAGING REPORT - | | 08/24/2019 | | Results for this | | EXTERNAL SCAN | | 12:00 AM | | procedure are in the | | | | PST | | results section. | + +--------+ + + + | IMAGING REPORT - | | 08/16/2019 | | Results for this | | EXTERNAL SCAN | | 12:00 AM | | procedure are in the | | | | PST | | results section. | + +--------+ + + + | PATHOLOGY - EXTERNAL | | 08/16/2019 | | Results for this | | SCAN | | 12:00 AM | | procedure are in the | | | | PST | | results section. | + +--------+ + + + documented in this encounter Results IMAGING REPORT - EXTERNAL SCAN (08/24/2019 12:00 AM PST) + + + | Narrative | Performed At | + + + | Ordered by an | | | unspecified provider. | | + + + PATHOLOGY - EXTERNAL SCAN (08/16/2019 12:00 AM PST) + + + | Narrative | Performed At | + + + | Ordered by an | | | unspecified provider. | | + + + IMAGING REPORT - EXTERNAL SCAN (08/16/2019 12:00 AM PST) + + + | Narrative | Performed At | + + + | Ordered by an | | | unspecified provider. | | + + + documented in this encounter Visit Diagnoses + + | Diagnosis | + + | Secondary cancer of bone (HCC) - Primary Secondary malignant neoplasm of bone and | | bone marrow | + + documented in this encounter"
--- OUTSIDE RECORDS SUMMARY | ~2020-06-29 | XMS | Encounter Summary ---
Demographics + + + | Address | [address] | | | [place] [address] | + + + | Home Phone [...] Team Providers + +------+ + | Care Asbestos Worker Helper Name | Role | Phone [...] [address] | | | | | [address] [place] | [facility] | | | | | [place], 4th floor | [place], [place] | | | | | [place], [place] | [address] | | | | | [address] | [phone] | | | | | [phone] | | | +--------+ + + + [...]
--- OUTSIDE RECORDS SUMMARY | ~2020-06-29 | XMS | Encounter Summary ---
Demographics + + + | Address | [address] | | | [place] [address] | + + + | Home Phone [...] Providers + +------+ + | Care Electric Meter Tester Name | Role | Phone | [...] | neoplasm of | RADHA Curran | [address] | | | | | unspecified | [place] | [address] | | | | | kidney, | Family | [place], | | | | | except renal | Medicine | [place] [address] | | | | | pelvis | [address] | Phone: | | | | | Procedures | [address] | [phone] | | | | | [place] NEW | [place], | Fax: | | | | | PATIENT | [place] [address] | [phone] | | | | | LEVEL [place] | Phone: | | | | | | EST PATIENT | [phone] | | | | | | LEVEL V | Fax: | | | | | | | [phone] | | + +---------+ + + + + Encounter Details +--------+---------+ + + + | Date | Type | Department | Care Team | Description | +--------+---------+ + + + | 03/12/ | Office | [facility] | Lissette Jones, | Renal cell carcinoma | | 2020 | Visit | Clinics at S | [place] [address] | of left kidney | | | | [place] [address] | [address] | (HCC) (Primary Dx) | | | | [facility] | [place], [place] | | | | | Health and Healing, | [address] | | | | | [address] | [phone] | | | | | [place], [place] | | | | | | [address] | | | | | | [phone] | | | +--------+---------+ + + + [...] speech. Appropriate mood/affect. Laboratory: LAB RESULTS: Clinical Security Flex Utility Officer on 03/12/2020 Component Date Value WHITE CELL [...]
--- OUTSIDE RECORDS SUMMARY | ~2020-06-29 | XMS | Encounter Summary ---
Demographics + + + | Address | [address] | | | [place] [address] | + + + | Home Phone | | + + + | Preferred Language | Unknown | + + + | Marital Status | | + + + | Taoist Affiliation | 1013 | + + + | Race | or Other | + + + | Ethnic Group | Not or | + + + Author + + + | Author | [facility] | | | and Shahram | + + + | Organization | [facility] | | | and Marcana [...] Team Providers + +------+ + | Care Reel System Operator Name | Role | Phone | [...] | | | [address] [place] | [place] [address] | | | | | [place] [address] | | | | | | [phone] | | | +--------+ + + + [...]
--- OUTSIDE RECORDS SUMMARY | ~2020-06-29 | XMS | Encounter Summary ---
Demographics + + + | Address | [address] | | | [place] [address] | + + + | Home Phone [...] Team Providers + +------+ + | Care Fundraising Manager Name | Role | Phone | [...] | neoplasm of | RADHA Curran | [address] | | | | | unspecified | [place] | [address] | | | | | kidney, | Family | [place], | | | | | except renal | Medicine | [place] [address] | | | | | pelvis | [address] | Phone: | | | | | Procedures | [address] | [phone] | | | | | [place] NEW | [place], | Fax: | | | | | PATIENT | [place] [address] | [phone] | | | | | L[place]EL [place] | Phone: | | | | | | EST PATIENT | [phone] | | | | | | LEVEL V | Fax: | | | | | | | [phone] | | + +---------+ + + + + Encounter Details +--------+---------+ + + + | Date | Type | Department | Care Team | Description | +--------+---------+ + + + | 02/12/ | Office | [facility] | Lissette Jones, | Renal cell carcinoma | | 2020 | Visit | Clinics at S | [place] [address] | of left kidney | | | | [place] [address] | [address] | (HCC) (Primary Dx) | | | | [facility] for | [place], [place] | | | | | Health and Healing, | [address] | | | | | [address] | [phone] | | | | | [place], [place] | | | | | | [address] | | | | | | [phone] | | | +--------+---------+ + + + [...] | Blood Pressure | 110/54 | 02/13/2020 9:50 AM | | | | | PDT | | + + + + + | Pulse | 95 | 02/13/2020 9:50 AM | | | | | PDT | | + + + + + | Temperature | 36.7 C (98 F) | 02/13/2020 9:50 AM | | | | | PDT | | + + + + + | Respiratory Rate | 14 | 02/13/2020 9:50 AM | | | | | PDT | | + + + + + | Oxygen Saturation | 100% | 02/13/2020 9:50 AM | | | | | PDT | | + + + + + | Inhaled Oxygen | - | - | | | Concentration | | | | + + + + + | Weight | 91 kg (200 lb 9.6 | 02/13/2020 9:50 AM | | | | oz) | PDT | | + + + + + | Height | 157.5 cm (5' 2") | 02/13/2020 9:50 AM | | | | | PDT | | + + + + + | Body Mass Index | 36.69 | 02/13/2020 9:50 AM | | | [...] encounter Progress Notes Lissette Jones MD - 02/13/2020 9:45 AM PDTFormatting of this note might be different fr om the original. FOLLOW-UP NOTE Patient: Tila Altman Date: 02/13/2020 : 1965 AGE: 54 y.o. Attending Physician: [...] today for follow up visit. She reports continued improvement in strength alt rdoney this has remarkably declined since her diagnosis- she is unable to lift her right leg above a foot and is able to walk but with wide based gait. Pain is controlled with current p ain medication. She was unable to get approval of CT scan prior to this appointment. Impression/Plan Tila Altman is a 54 y.o. [...] TSH Pain - continue oxycodone prn CT pending- will see if we can order prior to next cycle either locally or [facility]. Medications: Current Outpatient Medications Medication Sig cholecalciferol 50,000 unit oral capsule Take 1 capsule by mouth every seven days. Simi cations: vitamin D deficiency (high dose therapy) enoxaparin 80 mg/0.8 mL subcutaneous syringe Inject 0.8 mL under the skin (SUBC) every twelve hours. Indications: anticoagulation treatment furosemide (LASIX) 20 mg oral tablet Take 1 tablet by mouth once daily. levothyroxine 100 mcg oral tablet Take [...] four hours as needed for breakthrough pain. polyethylene glycol 17 gram/dose oral powder Mix 17 g in liquid and drink two times [place] ly. Indications: constipation (Patient not taking: Reported on 01/09/2020) senna-docusate 8.6-50 mg oral tablet Take 1 tablet by mouth two times daily. Indication s: constipation (Patient not taking: Reported on 01/09/2020) No current facility-administered medications for this visit. [...] speech. Appropriate mood/affect. Laboratory: LAB RESULTS: Clinical Construction Consultant on 02/13/2020 Component Date Value WHITE CELL COUNT 02/13/2020 2.12* RED CELL COUNT 02/13/2020 3.20* HEMOGLOBIN 02/13/2020 9.7* HEMATOCRIT 02/13/2020 32.0* MCV 02/13/2020 100.0 MCHC 02/13/2020 30.3* RDW SD 02/13/2020 57.8* PLATELET COUNT 02/13/2020 145* MPV 02/13/2020 8.8* NRBC% 02/13/2020 0.0 NRBC# 02/13/2020 0.00 NEUTROPHIL % 02/13/2020 76.4* LYMPHOCYTE % 02/13/2020 8.0* MONOCYTE % 02/13/2020 9.4* EOS % 02/13/2020 3.8* BASO % 02/13/2020 1.9 IG% 02/13/2020 0.5 NEUTROPHIL # 02/13/2020 1.62* NEUTROPHIL # Prelim 02/13/2020 1.62* LYMPHOCYTE # 02/13/2020 0.17* MONOCYTE # 02/13/2020 0.20 EOS # 02/13/2020 0.08 BASO # 02/13/2020 0.04 IG# 02/13/2020 0.01 Lissette Jones MD documented in this [...]
--- OUTSIDE RECORDS SUMMARY | ~2020-06-29 | XMS | Encounter Summary ---
Demographics + + + | Address | [address] | | | [place] [address] | + + + | Home Phone [...] Team Providers + +------+ + | Care Supply Chain Engineer Name | Role | Phone | + +------+ + | Lissette Martinez PA-C | PCP | | + +------+ + Reason for Visit + +--------+ + | Reason | Onset | Comments | | | Date | | + +--------+ + | faxed communication | 12/28/ | [facility] | | | 2020 | | + +--------+ + Encounter Details +--------+ + + + + | Date | Type | Department | Care Team | Description | +--------+ + + + + | 12/28/ | Telephone | [facility] Primary Care | Yeni, | faxed communication | | 2020 | | at [facility] | [address] | [facility]) | | | | [address] | [address] [facility] | | | | | Loop Physician's | [address] [place], [place] | | | | | [place], 3rd floor | [address] | | | | | [place], [place] | [phone] | | | | | [address] | | | | | | [phone] | | | +--------+ + + + [...] this encounter Miscellaneous Notes Telephone Encounter - Festus Bone MA - 12/29/2019 10:24 AM PDTUploaded Prescriber Respons e form into media tab as a PDF to be filled then faxed. documented in this encounter Plan of Treatment Not on filedocumented as of this encounter Visit Diagnoses Not on filedocumented in this encounter"
--- OUTSIDE RECORDS SUMMARY | ~2020-06-29 | XMS | Clinical Summary ---
Demographics + + + | Address | [address] | | | [place] [address] | + + + | Home Phone [...] Team Providers + +------+ + | Care Brush Fabrication Supervisor Name | Role | Phone | + +------+ + | Lissette Martinez PA-C | PCP | | + +------+ + Source Comments JEANETTE is fully live on both [facility] and [facility] InPatient.[facility] Allergies No Known Allergies Medications + + [...] mouth once daily. | tablet | | 420 | | e | | | | | | 20 | | | + + + +---------+------+------+-------+ +---+ + | | Additional | | | InformationPatient | | | taking differently: | | | 20 mg oral | | | NEEDED, Patient says | | | she takes this as | | | needed will talk | | | with Dr. Jones about | | | this., Reported on | | | 06/06/2020 2:29 PM | +---+ + + + +--------+---+------+---+-------+ | Iron, Carbonyl 45 | Take by mouth. | | 0 | | | Activ | | mg elemental oral | | | | | | e | | tablet | | | | | | | + + +--------+---+------+---+-------+ | apixaban 5 mg oral | Take 1 tablet by | 60 | 3 | 07/ | | Activ | | tablet | mouth two times | tablet | | 0/20 | | e | | | daily. | | | 20 | | | + + +--------+---+------+---+-------+ | cabozantinib 20 mg | Take 20 mg by mouth | 30 | 3 | 09/1 | | Activ | | oral tablet | once daily. | tablet | | 5/20 | | e | | | | | | 20 | | | + + +--------+---+------+---+-------+ | oxyCODONE | Take 1 tablet by | 120 | 0 | 09/2 | | Activ | | (immediate release) | mouth every four | tablet | | 8/20 | | e | | 5 mg oral tablet | hours as needed for | | | 20 | | | | | severe pain. | | | | | | + + +--------+---+------+---+-------+ | dexAMETHasone 2 mg | | | 0 | 07/0 | | Activ | | oral tablet | | | | 9/20 | | e | | | | | | 20 | | | + + +--------+---+------+---+-------+ | levETIRAcetam 500 | Take 500 mg by mouth | | 0 | | | Activ | | mg oral tablet | two times daily. | | | | | e | + + +--------+---+------+---+-------+ Active Problems + + + | Problem [...] + + | 06/29/ | Telephone | Hematology & | Yasemin Álvarez, | | | 2019 | | Oncology | [employer] | | +--------+ + + + + | 06/26/ | Video/TeleH | Hematology & | Lissette Jones, | | | 2019 | kendalh-Sched | Oncology | MD | | | | uled | | | | +--------+ + + + + | 06/18/ | Video/TeleH | Hematology & | Melania Garcia, | Left without seen | 2019 | ealth-Sched | Oncology | PA-C | | | | uled | | | | +--------+ + + + + | 06/11/ | MyChart | Hematology & | Lissette Jones, | RE: Tessa Altman | 2019 | Encounter | Oncology | MD | | +--------+ + + + + | 06/06/ | Telephone | Radiation Oncology | Antwon Beard, | | 2019 | | | MD | | +--------+ + + + + | 06/06/ | MyChart | Radiation Oncology | Antwon Beard, Mel Altman | 2019 | Encounter | | MD | | +--------+ + + + + | 06/05/ | Telephone | Hematology & | Lissette Jones, | Appointment | 2019 | | Oncology | MD | Cancelled By Patient | | | | | | (In Hospital) | +--------+ + + + + | 06/04/ | MyChart | Hematology & | Lissette Jones, | RE: Virtual appt. | 2019 | Encounter | Oncology | MD | for ThoJayson Altman | | | | | | 06/05/2020 | +--------+ + + + + | 05/31/ | MyChart | Hematology & | Lissette Jones, | RE: Rx refill - A. | 2019 | Encounter | Oncology | MD | [facility] | +--------+ + + + + | 05/29/ | Telephone | Hematology & | Lissette Jones, | | | 2019 | | Oncology | | | +--------+ + + + + | 05/29/ | MyChart | Neurological Surgery | Stephanie Bustos MD | Provider Departure | | 2019 | Encounter | | | | +--------+ + + + + | 05/22/ | Video/TeleH | Hematology & | Lissette Jones, | | | 2019 | ealth-Sched | Oncology | | | | | ulzbigniew | | | | +--------+ + + + + | 05/20/ | Telephone | Hematology & | Lissette Jones, | Appointment | | 2019 | | Oncology | | | +--------+ + + + + | 05/15/ | Video/TeleH | Hematology & | Lissette Jones, | | | 2019 | ealth-Sched | Fidelia | | | | | ulzbigniew | | | | +--------+ + + + + | 05/15/ | Telephone | Hematology & | Lissette Jones, | Care Coordination | 2019 | | Oncology | | | +--------+ + + + + | 05/06/ | Telephone | Hematology & | Flavia Bailon MD | | | 2019 | | Oncology | | | +--------+ + + + + | 05/06/ | Intake | | | | | 2019 | | | | | +--------+ + + + + | 05/01/ | Telephone | Radiation Oncology | Jaboin, Antwon J, | Seizure, NOS | 2019 | | | MD | | +--------+ + + + + | 05/01/ | MyChart | Radiation Oncology | Antwon Beard, | RE: Tessa Altman | 2019 | Encounter | | MD | | +--------+ + + + + | 04/25/ | Telephone | Hematology & | Lissette Jones, | Care Coordination | 2019 | | Oncology | MD | | +--------+ + + + + | 04/23/ | Video/TeleH | Hematology & | Lissette Jones, | No Show | 2019 | ealth-Sched | Oncology | MD | | | | ulzbigniew | | | | +--------+ + + + + | 04/20/ | Telephone-S | Radiation Oncology | Antwon Beard, | Follow-up visit | | 2019 | cheduled | | MD | | +--------+ + + + + | 04/17/ | MyChart | Hematology & | Lissette Jones, | Rx refill | 2019 | Encounter | Oncology | | | +--------+ + + + + | 04/02/ | Telephone | Radiation Oncology | Antwon Beard, | Care Coordination | | 2019 | | | MD | | +--------+ + + + + | 03/31/ | Telephone | Hematology & | Lissette Jones, | Appointment (virtual | 2019 | | Oncology | | 6 week follow up) | +--------+ + + + + | 03/29/ | MyChart | Hematology & | Senthil Landry | Cabozantinib Handout | | 2020 | Encounter | Oncology | Juanita Maurice [...] | | + +--------+ + + + from [...] + +--------+ | GEHA | GEHA | [id number] | 09/07/19 | [phone] | [address] | Indemn | | | | | 18-Pre | 6 | [id number] [place] | linneay | | | | | sent | | [place] | | | | | | | | [address] | | +-------+--------+ +--------+ + +--------+ + +--------+ +--------+ + + | Guarantor Name | Accoun | Relation to | Date | Phone | Billing Address | | | t Type | Patient | of | | | | | | | | | | + +--------+ +--------+ + + | Tila Altman | Person | Self | [birth year] | [address] | | | al/Fam | | 1965 | [phone] | [place] [address] | | | corby | | | [...]
--- OUTSIDE RECORDS SUMMARY | ~2020-06-29 | XMS | Clinical Summary ---
Demographics + + + | Address | [address] | | | [place] [address] | + + + | Home Phone | | + + + | Preferred Language | Unknown | + + + | Marital Status | | + + + | Jain Affiliation | 1013 | + + + | Race | or Other | + + + | Ethnic Group | Not or | + + + Author + + + | Author | [facility] | | | and Shahram | + + + | Organization | [facility] | | | and Marcana | [...] Providers + +------+ + | Care Senior Patrol Agent Name | Role | Phone | [...] +--------+ +---------+------+ | GEHA | GEHA | [phone] | | [phone] | | PPO | [...] | 1965 | [phone] | [place] [address] | | | corby | | | 4 (Home) | | + +--------+ +--------+ + + Advance Directives + + + + + | Type | Date Recorded | Patient | Explanation | | | | Sinter Feeder | | + + + + + | Power of | | | | | Bag Making Machine Operator | | | | + + + + + | Advance | 12/13/2019 1:01 | | | | Directive | PM | | | + + + + +
--- OUTSIDE RECORDS SUMMARY | ~2020-06-29 | XMS | Encounter Summary ---
Demographics + + + | Address | [address] | | | [place] [address] | + + + | Home Phone [...] Team Providers + +------+ + | Care Dispatcher Radioactive Waste Disposal Name | Role | Phone | + [...] | | | | cancer, | [place] [address] | [facility] | | | | | primary, | [place] | [address] | | | | | with | Ct | Research | | | | | metastasis | [place] [address] | | | | | from kidney | [place] | [place], [place] | | | | | to other | [address] | [address] | | | | | site, left | Phone: | Phone: | | | | | (HCC) | [phone] | [phone] | | | | | Procedures | Fax: | Fax: | | | | | MRI BRAIN | [phone] | [phone] | | | | | TUMOR | | | | | | | EVALUATION | | | | | | | WWO CONTRAST | | | | | | | DC MRI | | | | | | [...] | | Kidney | Lissette, | [address] | | | | | cancer, | [place] [address] | [facility] | | | | | primary, | [place] | [address] | | | | | with | Ct | Frederick Navas, | | | | | metastasis | [place], | [place] | | | | | from kidney | [place] | [place], [place] | | | | | to other | [address] | [address] | | | | | site, left | Phone: | Phone: | | | | | (HCC) | [phone] | [phone] | | | | | Procedures | Fax: | Fax: | | | | | NM BONE &/OR | [phone] | [phone] | | | | | JOINT | | | | | | | IMAGING | | | | | | | WHOLE BODY | | | | | | | DC BONE | | | | | | [...] | neoplasm of | E, PA-C | [address] | | | | | unspecified | [place] | [address] | | | | | kidney, | Family | [place], | | | | | except renal | Medicine | [place] [address] | | | | | pelvis | [address] | Phone: | | | | | Procedures | Pepe Frank | [phone] | | | | | DC NEW | Tim, | Fax: | | | | | PATIENT | [place] [address] | [phone] | | | | | LEVEL V DC | Phone: | | | | | | EST PATIENT | [phone] | | | | | | LEVEL V | Fax: | | | | | | | [phone] | | + +---------+ + + + + Encounter Details +--------+---------+ + + + | Date | Type | Department | Care Team | Description | +--------+---------+ + + + | 08/22/ | Office | [facility] | Lissette Jones, | Kidney cancer, | | 2019 | Visit | Clinics at [facility] | [place] [address] [address] | primary, with | | | | [facility] [address] | metastasis from | | | | [facility] for | [place], [place] | kidney to other | | | | [facility], | [address] | site, left (HCC) | | | | [address] | [phone] | (Primary Dx) | | | | [place], [place] | | | | | | [address] | | | | | | [phone] | | | +--------+---------+ + + + [...] 54 y.o. 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 woman who presents today to [facility] treatment options for metastatic kidney cancer. 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
--- OUTSIDE RECORDS SUMMARY | ~2020-06-29 | XMS | Encounter Summary ---
Demographics + + + | Address | [address] | | | [place] [address] | + + + | Home Phone [...] Providers + +------+ + | Care Medical Staff Director Name | Role | Phone | [...] | neoplasm of | RADHA Curran | [address] | | | | | unspecified | [place] | [address] | | | | | kidney, | Family | [place], | | | | | except renal | Medicine | [place] [address] | | | | | pelvis | [address] | Phone: | | | | | Procedures | [address] | [phone] | | | | | [place] NEW | Tim, | Fax: | | | | | PATIENT | [place] [address] | [phone] | | | | | L[place] | Phone: | | | | | | EST PATIENT | [phone] | | | | | | LEVEL V | Fax: | | | | | | | [phone] | | + +---------+ + + + + Encounter Details +--------+ + + + + | Date | Type | Department | Care Team | Description | +--------+ + + + + | 05/22/ | Video/TeleH | [facility] | Lissette Jones, | | | 2020 | ealth-Sched | Clinics at S | [place] [address] | | | | uled | [facility] [address] | | | | | [facility] | [place], [place] | | | | | [facility] and Healing, | [address] | | | | | Building [address] | [phone] | | | | | [place], [place] | | | | | | [address] | | | | | | [phone] | | | +--------+ + + + [...] encounter Progress Notes Lissette Jones MD - 05/22/2020 12:45 PM PDTFormatting of this note might be different fr om the original. The visit took place via secure, synchronous audio and video technology with the provider v irtmary jo located at the distant site of [facility]. The patient stated they were located at the [facility] site of [place] and were in the state of [place] at the time of the virtual visit. The n da of all additional persons participating in the virtual visit and their roles are: shiv nt. I have spent a total of 22 minutes on this patient's care today. This time includes the vi rtual visit ahmy-vg-calo time with the patient as well as time spent reviewing patient recor ds, coordinating/communicating with care teams and documenting the patient visit. FOLLOW-UP NOTE Patient: Tila Altman Date: 05/22/2020 : 1965 AGE: 54 y.o. Attending Physician: [...] Tila returns today for follow up visit. She's been off cabo for a few weeks and she's gai jimbo weight, mouth sores have resolved, and fatigue has improved. She wants to try to restar t cabo but at reduced dose. Impression/Plan Tila Altman is a 54 y.o. [...] directly compare) and primary renal cell stable Next CT scan should be done at [facility] 07/2020 RTC 3-4 weeks for toxicity follow up Medications: Current Outpatient Medications Medication Sig apixaban [...] | + +--------+ + + + | GENETRAILS | Routin | 08/16/2019 | Kidney cancer, | Results for this | | COMPREHENSIVE SOLID | e | 4:04 PM | primary, with | procedure are in the | | TUMOR PANEL | | PST | metastasis from | results section. | | | | | kidney to other | | | | | | site, left (HCC) | | + +--------+ + + + documented in this encounter Results GENETILS COMPREHENSIVE SOLID TUMOR PANEL (08/16/2019 4:04 PM PST) + + + + + + | Component | Value | Ref Range | Performed | Pathologist | | | | | At | Signature | + + + + + + | GENETRAILS | See Interpretation. | | [facility] | | | COMPREHENSI | | | DIAGNOSTIC | | | VE SOLID | | | | | | TUMOR PANEL | | | LABORATORIE | | | | | | S | | + + + + + + | SAMPLE | Liver mass | | [facility] | | | TESTED | | | DIAGNOSTIC | | | | | | | | | | | | LABORATORIE | | | | | | S | | + + + + + + | INTERPRETAT | DIAGNOSIS REPORTED: | | [facility] | | | ION | Metastatic renal cell | | DIAGNOSTIC | | | | carcinoma, Clear cell | | | | | | typeMICROSATELLITE | | LABORATORIE | | | | INSTABILITY STATUS: | | S | | | | Negative (SHANNON)ESTIMATED | | | | | | TUMOR MUTATION BURDEN | | | | | | (TMB): = 4.9 | | | | | | mutations/Mb.Comment: | | | | | | Based on comparison with | | | | | | TCGA exome data, this | | | | | | TMB value is at the 75th | | | | | | percentile for this | | | | | | cancer type. However, | | | | | | the clinical | | | | | | significance of this | | | | | | value has not been fully | | | | | | established. GENOMIC | | | | | | ALTERATIONSAlteration(s) | | | | | | of Strong Clinical | | | | | | Significance (Tier | | | | | | I*)BAP1 p.E375*. BAP1 | | | | | | is a deubiquitinating | | | | | | enzyme that binds to | | | | | | BRCA1. Based on | | | | | | pre-clinical studies, | | | | | | cells with loss of BAP1 | | | | | | activity show increased | | | | | | sensitivity to PARP | | | | | | inhibitors and agents | | | | | | that cause double-strand | | | | | | DNA breaks (e.g. | | | | | | radiation and some | | | | | | chemotherapeutics). VHL | | | | | | p.G104fs*51. The VHL | | | | | | gene product is a tumor | | | | | | suppressor protein that | | | | | | is involved in the | | | | | | degradation of HIF1?, | | | | | | which is a director content marketing | | | | | | factor important in | | | | | | promoting the expression | | | | | | of VEGF, EPO, TGF? and | | | | | | PDGF?. Loss of VHL | | | | | | function is common in | | | | | | clear cell RCC. Germline | | | | | | VHL mutations are | | | | | | linked to Von | | | | | | Hippel-Lindau disease; | | | | | | however, the germline | | | | | | status of the mutation | | | | | | in this case cannot be | | | | | | determined from tumor | | | | | | DNA. Correlation with | | | | | | clinical and family | | | | | | history may be | | | | | | helpful.Note: Both BAP1 | | | | | | and VHL mutations are | | | | | | commonly found in clear | | | | | | cell renal cell | | | | | | carcinomas | | | | | | (ccRCC).Alteration(s) of | | | | | | Potential Clinical | | | | | | Significance (Tier | | | | | | II*)KRAS Amplification | | | | | | (~12 copies). KRAS is | | | | | | an important growth | | | | | | factor signaling | | | | | | intermediate. The | | | | | | clinical significance of | | | | | | this amplification in | | | | | | ccRCC is unknown, but | | | | | | consideration might be | | | | | | given to a MEK inhibitor | | | | | | trial.MAPK1 | | | | | | p.C124_A842zvm. MAPK1 | | | | | | encodes ERK2 kinase, | | | | | | which plays a central | | | | | | role in the MAPK | | | | | | signaling pathway. This | | | | | | mutation would predict | | | | | | for loss of | | | | | | function.MDM2 | | | | | | Amplification (~17 | | | | | | copies). There are | | | | | | ongoing clinical trials | | | | | | of drugs that target | | | | | | MDM2, which negatively | | | | | | regulates TP53 activity | | | | | | ([id number], | | | | | | [id number]). No gene | | | | | | fusions or clinically | | | | | | informative splice | | | | | | alterations identified | | | | | | in the genes listed in | | | | | | RNA summary | | | | | | field.*Genomic variants | | | | | | classified in accordance | | | | | | with recommendations by | | | | | | AMP/ASCO/CAP (PMID: | | | | | | [id number]).CLINICAL | | | | | | TRIALS RELATED TO THE | | | | | | ALTERATIONS IN THIS | | | | | | TUMOR [id number] - A | | | | | | Phase II Trial of the | | | | | | PARP Inhibitor, | | | | | | Niraparib, in BAP1 and | | | | | | Other DNA Damage | | | | | | Response (DDR) Pathway | | | | | | Deficient Neoplasms | | | | | | ([id number])Phase: | | | | | | Phase 2 | | | | | | Location(s): [place]Gene(s): | | | | | | RAD50, CHEK2, PALB2, | | | | | | BRIP1, WRN, ARID1A, | | | | | | BAP1, FEN1, UGE888A, | | | | | | PRKDC, PTEN, RAD51, | | | | | | RPA1, POLD1, PARP1, ZOEY, | | | | | | ATR, BACH1, ATRX, | | | | | | BARD1, BLM, IDH1, IDH, | | | | | | IDH2, CDK2, CDK4, CHEK1, | | | | | | MRE11, NBN, RAD52, | | | | | | SLX4, BRCA, BRCA1, | | | | | | BRCA2, WLS17Qwsivppb(s): | | | | | | Drug(s): | | | | | | [id number] - A | | | | | | Phase 1b Study of | | | | | | [id number] in Combination | | | | | | With Paclitaxel in | | | | | | Wild-Type TP53 Advanced | | | | | | or Metastatic Solid | | | | | | Tumors Including | | | | | | Estrogen-Receptor | | | | | | Positive Breast | | | | | | CancerPhase: Phase 1 | | | | | | Location(s): | | | | | | [place]Gene(s): Wild-Type | | | | | | TP53, ESR1, MDM2, MDM4, | | | | | | YJMK9Y5, KJLP8F9, | | | | | | CY, AMUM3O8, | | | | | | XZ0Oxomcpsg(s): ER | | | | | | Negative, ERBB2 | | | | | | LossDrug(s): | | | | | | [id number] - | | | | | | A Multicenter Phase I/II | | | | | | Trial of A Novel MDM2 | | | | | | Inhibitor(APG-115) With | | | | | | or Without Augusta | | | | | | Chemotherapy in P53 | | | | | | Wild-Type Salivary Gland | | | | | | CarcinomaPhase: Phase | | | | | | 1/Phase 2 | | | | | | Location(s): [place], | | | | | | [place]Gene(s): Wild-Type | | | | | | TP53, LZP3Rthurpql(s): | | | | | | Drug(s): Carboplatin, | | | | | | [id number] - A | | | | | | Phase 1b/2, Open Label, | | | | | | Dose Escalation and | | | | | | Expansion Study of the | | | | | | Glutaminase Inhibitor | | | | | | Telaglenastat (CB-839) | | | | | | in Combination With | | | | | | CDK4/6 Inhibitor | | | | | | Palbociclib in Patients | | | | | | With Advanced or | | | | | | Metastatic Solid | | | | | | TumorsPhase: Phase | | | | | | 1/Phase 2 | | | | | | Location(s): [place], | | | | | | GAGene(s): CDK4, CDK6, | | | | | | KRAS, Wild-Type RB1, | | | | | | CDKN2B, CDKN2A, | | | | | | GTOB7OP4, PBRM1, MLH1, | | | | | | PMS2, MSH6, | | | | | | KYQ6Rlseyvlt(s): KRAS | | | | | | G12, KRAS G13, KRAS Q61, | | | | | | AXFK6AZ7 Increased | | | | | | Expression, PBRM1 Loss, | | | | | | TMB High, Microsatellite | | | | | | instabilityDrug(s): | | | | | | Palbociclib, | | | | | | Telaglenastat, | | | | | | [id number] | | | | | | 831 - Talazoparib and | | | | | | Avelumab in Genomically | | | | | | Defined Metastatic Renal | | | | | | Cell CarcinomaPhase: | | | | | | Phase 2 | | | | | | Location(s): [place], | | | | | | [place]Gene(s): VHL, FH, | | | | | | SDHA, SDHB, SDHC, SDHD, | | | | | | CD274, PDCD1, BRIP1, | | | | | | AKUV4AT1, | | | | | | TEYC6Fyokueak(s): FH | | | | | | Loss, SDHA Loss, SDHB | | | | | | Loss, SDHC Loss, SDHD | | | | | | LossDrug(s): | | | | | | Talazoparib, Avelumab, | | | | | | [id number] - | | | | | | A Phase I Open-label | | | | | | Dose Escalation Trial of | | | | | | [id number] as | | | | | | Monotherapy and in | | | | | | Combination With | | | | | | Trametinib in Patients | | | | | | With KRAS Mutated | | | | | | Advanced or Metastatic | | | | | | Solid TumorsPhase: Phase | | | | | | 1 Location(s): | | | | | | [place], [place], NCGene(s): | | | | | | KRASGenotype(s): KRAS | | | | | | U91Pcdf(s): | | | | | | [id number] - | | | | | | Phase 1/2 Open-label | | | | | | Study of Combination | | | | | | Therapy With the MEK | | | | | | Inhibitor, Cobimetinib, | | | | | | Immune Checkpoint | | | | | | Blockade, Atezolizumab, | | | | | | and the AUTOphagy | | | | | | Inhibitor, | | | | | | Hydroxychloroquine in | | | | | | KRAS-mutated Advanced | | | | | | MalignanciesPhase: Phase | | | | | | 1/Phase 2 | | | | | | Location(s): [place]Gene(s): | | | | | | CSF3, NTRK1, MLH1, PMS2, | | | | | | MSH6, MSH2, MAP2K1, | | | | | | MAP2K2, KRAS, BRAF, | | | | | | HRAS, NRAS, CD274, | | | | | | PDCD1, BYUT5YV4, GNA11, | | | | | | GNAQ, CY, | | | | | | C0AFBspdbbko(s): | | | | | | Drug(s): Cobimetinib, | | | | | | Atezolizumab, | | | | | | Hydroxychloroquine, | | | | | | Ampicillin, Mefloquine, | | | | | | Yivllmh-6-Azhjqhmia, | | | | | | Methotrexate, | | | | | | Cyclosporine, | | | | | | Prednisone, Cimetidine, | | | | | | Cobimetinib + | | | | | | [id number] | | | | | | - A Mvnfl-ch-Pyzja, | | | | | | Phase 1a/1b, Open Label, | | | | | | Dose-Escalation and | | | | | | Expansion Study to | | | | | | Investigate the Safety, | | | | | | Pharmacokinetics, and | | | | | | Antitumor Activity of | | | | | | the MANE Dimer Inhibitor | | | | | | [id number] in Patients | | | | | | With Advanced or | | | | | | Refractory TumorsPhase: | | | | | | Phase 1 | | | | | | Location(s): [place], | | | | | | [place]Gene(s): MAP2K1, RAF1, | | | | | | BRAF, KRASGenotype(s): | | | | | | BRAF Oncogenic | | | | | | Mutations, BRAF fusion, | | | | | | NRAS G12, NRAS | | | | | | Q64Bvkp(s): | | | | | | Diethyltoluamide, | | | | | | Mitomycin | | | | + + + + + + | DNA SUMMARY | Test information: The | | [facility] | | | | following genes were | | DIAGNOSTIC | | | | negative in this | | | | | | analysis, unless | | LABORATORIE | | | | otherwise listed | | S | | | | above.Assay QC: | | | | | | Estimated tumor content | | | | | | in material tested: | | | | | | 20%Average read depth: | | | | | | 1192 per targeted gene | | | | | | regionThis test is | | | | | | designed to detect | | | | | | alterations in the above | | | | | | panel of genes, which | | | | | | are known to play a role | | | | | | in cancer growth. Each | | | | | | specimen is examined | | | | | | microscopically and | | | | | | genomic DNA is extracted | | | | | | from dissected, | | | | | | tumor-rich areas. | | | | | | Mutations are screened | | | | | | by massively parallel | | | | | | sequencing using a | | | | | | combination of | | | | | | multiplexed PCR and | | | | | | sequencing on an | | | | | | Illumina platform. The | | | | | | panel covers target | | | | | | exons and portions of | | | | | | flanking intronic | | | | | | sequences for all of the | | | | | | listed genes, with the | | | | | | exception of a few minor | | | | | | coverage gaps (further | | | | | | information available | | | | | | upon request). The | | | | | | minimum detectable | | | | | | variant allele fraction | | | | | | (VAF) ranges between 2% | | | | | | and 5%, depending on | | | | | | sequence read depth. The | | | | | | minimum required | | | | | | coverage is 250 reads | | | | | | per gene segment (limit | | | | | | of detection = 5% VAF). | | | | | | It should be noted in | | | | | | regard to insertions and | | | | | | deletions that this | | | | | | test is biased toward | | | | | | shorter alterations. | | | | | | Gene copy loss is | | | | | | reported when there are | | | | | | <0.5 copies (corrected | | | | | | for tumor fraction) and | | | | | | copy gain is reported | | | | | | for >5 copies. | | | | | | Microsatellite | | | | | | instability: Short | | | | | | repeat sequences | | | | | | included in the panel | | | | | | are analyzed using a | | | | | | custom algorithm. This | | | | | | tumor has a score of | | | | | | 0.89%. A score >5% is | | | | | | required for | | | | | | MSI-high.MSI Total | | | | | | Uwszy=079 MSI Somatic | | | | | | Sites=2 MSI Percent | | | | | | Somatic=0.89%Tumor | | | | | | mutation burden (TMB) is | | | | | | based on the total | | | | | | number of nonsynonymous | | | | | | variants (including VUS) | | | | | | that are deemed | | | | | | unlikely to be germline | | | | | | based on allele fraction | | | | | | and review of public | | | | | | databases (e.g. dbSNP, | | | | | | ExaC, etc.). TMB is | | | | | | calculated as the number | | | | | | of variants/0.61 Mb | | | | | | (the size of this panel) | | | | | | and reported as | | | | | | mutations/Mb. Based on | | | | | | the publication by | | | | | | Samstein et al. (PMID: | | | | | | [id number]), a TMB in the | | | | | | top 20th percentile is | | | | | | significantly correlated | | | | | | with a benefit of | | | | | | immune checkpoint | | | | | | inhibitor therapy for | | | | | | the following cancers: | | | | | | Bladder Carcinoma (?16.4 | | | | | | mutations/Mb); Head & | | | | | | Neck Squamous Carcinoma | | | | | | (?9.8 mutations/Mb); | | | | | | Lung Adenocarcinoma | | | | | | (?13.1 mutations/Mb); | | | | | | Cutaneous Melanoma | | | | | | (?18.0 mutations/Mb). | | | | | | For all other cancers, | | | | | | the clinical | | | | | | significance of the top | | | | | | 20th percentile or any | | | | | | other cut-off has not | | | | | | been fully | | | | | | established.Additional | | | | | | Details on Mutations | | | | | | Identified:Gene | | | | | | Transcript cDNA Mena | | | | | | Genome Chrom Start End | | | | | | Ref Mena BAP1 IEPA5751.1 | | | | | | c.1123G>T hg19 chr3 | | | | | | [id number] C A | | | | | | VHL EVLO7653.1 | | | | | | c.311_323del hg19 chr3 | | | | | | 54774041 [id number] | | | | | | TGGCACGGGCCGCC T MAPK1 | | | | | | PQGJ98539.1 c.571_588del | | | | | | hg19 chr22 [id number] | | | | | | [id number] | | | | | | CTGGAGCCCTGTACCAACG C | | | | + + + + + + | RNA SUMMARY | No gene fusions or | | [facility] | | | | clinically informative | | DIAGNOSTIC | | | | splice alterations | | | | | | identified in the genes | | LABORATORIE | | | | listed below. Fusion | | S | | | | Gene Panel QC:Estimated | | | | | | tumor content in | | | | | | material tested: | | | | | | 20%Total on-target | | | | | | unique reads: | | | | | | 359,999Fusion Gene Panel | | | | | | Information: This test | | | | | | is designed to detect | | | | | | fusions involving the | | | | | | genes listed above, and | | | | | | is agnostic with respect | | | | | | to fusion partners. | | | | | | EGFRvIII and splice | | | | | | variants causing MET | | | | | | exon 14 skipping are | | | | | | also tested. All of the | | | | | | ems driver genes are known | | | | | | to play a role in cancer | | | | | | growth, and most of | | | | | | them are actionable with | | | | | | one or more targeted | | | | | | therapies. Submitted | | | | | | samples are examined | | | | | | microscopically and | | | | | | genomic RNA is extracted | | | | | | and purified from | | | | | | dissected, tumor-rich | | | | | | areas. Sequencing | | | | | | libraries are prepared | | | | | | from cDNA using an | | | | | | amplicon-based | | | | | | methodology and are | | | | | | sequenced by massively | | | | | | parallel sequencing on | | | | | | an [employer] | | | | | | [employer]. The gene | | | | | | fusions can be detected | | | | | | to the range of | | | | | | approximately 1-5% of | | | | | | input cells. | | | | + + + + + + | DISCLAIMER | This test was developed | | [facility] | | | | and its performance | | DIAGNOSTIC | | | | characteristics | | | | | | determined by the [facility] | | LABORATORIE | | | | [facility] | | S | | | | Laboratories. It has | | | | | | not been cleared or | | | | | | approved by the Food and | | | | | | Drug Administration. | | | | | | FDA approval is not | | | | | | required for the | | | | | | clinical use of the | | | | | | test, and therefore | | | | | | validation was done as | | | | | | required under the | | | | | | requirements of the | | | | | | Clinical Laboratory | | | | | | Improvement Act of 1988 | | | | | | (CLIA). The [facility] | | | | | | Diagnostics | | | | | | Laboratories are fully | | | | | | licensed by the state of | | | | | | [place] under CLIA and | | | | | | are accredited by the | | | | | | [employer] | | | | | | Path[employer] (CAP). | | | | | | Medicaid Eligibility Specialist: | | | | | | Richard Lobo, | | | | | | Lily, Ph.D.Reviewed | | | | | | and electronically | | | | | | signed by Solis Bundy | | | | | | MD Juwan06/19/2020 | | | | | | 5:46 PM | | | | + + + + + + + + | Specimen | + + | Slide-Block - | | Slide-Block | + + + + + + + | Performing | Address | City/State/Zipcode | Phone Number | | Organization | | | | + + + + + | [facility] | [address] 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
--- OUTSIDE RECORDS SUMMARY | ~2020-06-29 | XMS | Encounter Summary ---
Demographics + + + | Address | [address] | | | [place] [address] | + + + | Home Phone | | + + + | Preferred Language | Unknown | + + + | Marital Status | Single | + + + | Denominational Affiliation | CHR | + + + [...] Providers + +------+ + | Care Assistant Quality Manager Name | Role | Phone | [...] | neoplasm of | RADHA Curran | [address] | | | | | unspecified | [place] | [address] | | | | | kidney, | Family | [place], | | | | | except renal | Medicine | [place] [address] | | | | | pelvis | [address] | Phone: | | | | | Procedures | [address] | [phone] | | | | | [place] | [place], | Fax: | | | | | PATIENT | [place] [address] | [phone] | | | | | LEVEL V [place] | Phone: | | | | | | EST PATIENT | [phone] | | | | | | LEVEL V | Fax: | | | | | | | [phone] | | + +---------+ + + + + Encounter Details +--------+ + + + + | Date | Type | Department | Care Team | Description | +--------+ + + + + | 08/23/ | Hospital | [facility] | [address] | | | 2019 | Encounter | Clinics at [address] | [address] [place], [place] | | | | | [facility] [address] | [address] | | | | | [address] [facility] | | [facility], | | | | | | [address] | | | | | | [place], [place] | | | | | | [address] | | | | | | [phone] | | | +--------+ + + + [...]
--- OUTSIDE RECORDS SUMMARY | ~2020-06-29 | XMS | Encounter Summary ---
Demographics + + + | Address | [address] | | | [place] [address] | + + + | Home Phone [...] Team Providers + +------+ + | Care Extruder Name | Role | Phone | + +------+ + | Lissette Martinez PA-C | PCP | | + +------+ + Encounter Details +--------+ + + + + | Date | Type | Department | Care Team | Description | +--------+ + + + + | 11/07/ | Documentati | [facility] | Lissette Jones, | | | 2019 | on | Nate Correia | [address] | | | | | [place] [address] | | | | | [place], [place] | [facility], [place] | | | | | [address] | [address] | | | | | [phone] | [phone] | | | | | | | [...] | BASIC METABOLIC SET | Routin | 11/07/2019 | | Results for this | | (NA, K, CL, TCO2, | e | | | procedure are in the | | BUN, CR, GLU, CA) | | | | results section. | + +--------+ + + + | COMPLETE METABOLIC | Routin | 11/04/2019 | | Results for this | | [...] K, CL, TCO2, BUN, CR, GLU, CA) (11/07/2019) + +-------+ + + + | Component | Value | Ref Range | Performed | Pathologist | | | | | At | Signature | + +-------+ + + + | GLUCOSE, | 92 | 65 - 110 mg/dL | NON [facility] | | | PLASMA | | | LAB | | | (LAB) | | | | | + +-------+ + + + | BUN, PLASMA | 29.6 | 6.0 - 28.6 | NON [facility] | | | (LAB) | | mg/dL | LAB | | + +-------+ + + + | CREATININE | 1.59 | 0.70 - 1.33 | NON [facility] | | | PLASMA | | mg/dL | LAB | | | (LAB) | | | | | + +-------+ + + + | SODIUM, | 132 | 132 - 143 | NON [facility] | | | PLASMA | | mmol/L | LAB | | | (LAB) | | | | | + +-------+ + + + | POTASSIUM, | 4.9 | 3.6 - 5.1 | NON [facility] | | | PLASMA | | mmol/L | LAB | | | (LAB) | | | | | + +-------+ + + + | CHLORIDE, | 105 | 95 - 112 mmol/L | NON [facility] | | | PLASMA | | | LAB | | | (LAB) | | | | | + +-------+ + + + | TOTAL CO2, | 17 | 19 - 31 mmol/L | NON [facility] | | | PLASMA | | | LAB | | | (LAB) | | | | | + +-------+ + + + | CALCIUM, | 8.0 | 8.5 - 10.3 | NON [facility] [...] COMPLETE METABOLIC SET (NA,K,CL,CO2,BUN,CREAT,GLUC,CA,AST,ALT,BILI TOTAL,ALK PHOS,ALB,PROT TOTAL) (11/04/2019) + +-------+ + + + | Component | Value | Ref Range | Performed | Pathologist | | | | | At | Signature | + +-------+ + + + | GLUCOSE, | 101 | 65 - 110 mg/dL | NON [facility] | | | PLASMA | | | LAB | | | (LAB) | | | | | + +-------+ + + + | BUN, PLASMA | 26.7 | 6.0 - 28.6 | NON [facility] | | | (LAB) | | mg/dL | LAB | | + +-------+ + + + | CREATININE | 1.46 | 0.71 - 1.33 | NON [facility] | | | PLASMA | | mg/dL | LAB | | | (LAB) | | | | | + +-------+ + + + | TOTAL | 5.0 | 6.0 - 8.3 g/dL | NON [facility] | | | PROTEIN, | | | LAB | | | PLASMA | | | | | | (LAB) | | | | | + +-------+ + + + | ALBUMIN, | 2.4 | 3.5 - 5.0 g/dL | NON [facility] | | | PLASMA | | | LAB | | | (LAB) | | | | | + +-------+ + + + | CALCIUM, | 9.1 | 8.5 - 10.3 | NON [facility] | | | PLASMA | | mg/dL | LAB | | | (LAB) | | | | | + +-------+ + + + | BILIRUBIN | 0.6 | 0.0 - 1.2 | NON [facility] | | | TOTAL | | Transcutaneous | LAB | | | | | Bilirubinometer | | | + +-------+ + + + | ALK PHOS | 99 | 31 - 130 U/L | NON [facility] | | | | | | LAB | | + +-------+ + + + | AST(SGOT) | 39 | 13 - 39 U/L | NON [facility] | | | | | | LAB | | + +-------+ + + + | SODIUM, | 135 | 132 - 143 | NON [facility] | | | PLASMA | | mmol/L | LAB | | | (LAB) | | | | | + +-------+ + + + | POTASSIUM, | 5.7 | 3.6 - 5.1 | NON [facility] | | | PLASMA | | mmol/L | LAB | | | (LAB) | | | | | + +-------+ + + + | CHLORIDE, | 106 | 95 - 112 mmol/L | [facility] | | | PLASMA | | | LAB | | | (LAB) | | | | | + +-------+ + + + | TOTAL CO2, | 21 | 19 - 31 mmol/L | NON [facility] | | | PLASMA | | | LAB | | | (LAB) | | | | | + +-------+ + + + | ALT (SGPT) | 15 | 7 - 52 U/L | NON [facility] | | | | | | LAB | | + +-------+ + + + | A/G RATIO | 0.9 | 1.1 - 2.4 | [facility] [...] | + +---------+ + + | NON [facility] LAB | | | | + +---------+ + + documented in this encounter Visit Diagnoses Not on filedocumented in this encounter"
--- OUTSIDE RECORDS SUMMARY | ~2020-06-29 | XMS | Encounter Summary ---
Demographics + + + | Address | [address] | | | [place] [address] | + + + | Home Phone [...] Providers + +------+ + | Care Retail Director Name | Role | Phone | + +------+ + | Lissette Martinez PA-C | PCP | | + +------+ + Encounter Details +--------+ + + + + | Date | Type | Department | Care Team | Description | +--------+ + + + + | 12/21/ | Documentati | [facility] Primary Care | Yeni, | | | 2019 | on | at [facility] | DO Lissette [address] | | | | | [address] | [facility] | | | | | Loop Physician's | [place], [place] | | | | | Ishan, [address] [place] [address] | [address] | | | | | [place], [place] | [phone] | | | | | [address] | | | | | | [phone] | | | +--------+ + + + [...] results for easy review and scanned to media tab. Electronically signed by Jose Luis Mcnamara [...]
--- OUTSIDE RECORDS SUMMARY | ~2020-06-29 | XMS | Encounter Summary ---
Demographics + + + | Address | [address] | | | [place] [address] | + + + | Home Phone [...] Team Providers + +------+ + | Care Optics Technical Officer Name | Role | Phone | [...] | neoplasm of | RADHA Curran | [address] | | | | | unspecified | [place] | [address] | | | | | kidney, | Family | [place], | | | | | except renal | Medicine | [place] [address] | | | | | pelvis | [address] | Phone: | | | | | Procedures | [address] | [phone] | | | | | [place] NEW | Tim, | Fax: | | | | | PATIENT | [place] [address] | [phone] | | | | | LEVEL V AL | Phone: | | | | | | EST PATIENT | [phone] | | | | | | LEVEL V | Fax: | | | | | | | [phone] | | + +---------+ + + + + Encounter Details +--------+ + + + + | Date | Type | Department | Care Team | Description | +--------+ + + + + | 05/22/ | Video/TeleH | [facility] | Lissette Jones, | | | 2020 | ealth-Sched | Clinics at S | [place] [address] | | | | uled | [facility] | | | | | [facility] | [place], [place] | | | | | Health and Healing, | [address] | | | | | [address] | [phone] | | | | | [place], [place] | | | | | | [address] | | | | | | [phone] | | | +--------+ + + + [...] jo located at the distant site of [facility]. The patient stated they were located at the [facility] site [place] and were in the state of [place] at the time of the virtual visit. The n da of all additional persons participating in the virtual visit and their roles are: shiv nt. I have spent a total of 22 minutes on this patient's care today. 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 MAPK1 | | | | | | [...] activity | | | | | | ([id number], | | | | | | [id number]). No gene | | | | | [...] (PMID: | | | | | | [id number]).CLINICAL | | | | | | TRIALS RELATED TO THE | | | | | | ALTERATIONS IN THIS | | | | | | TUMOR [id number] - A | | | | | | Phase II Trial of the | | | | | | PARP Inhibitor, | | | | | | Niraparib, in BAP1 and | | | | | | Other DNA Damage | | | | | | Response (DDR) Pathway | | | | | | Deficient Neoplasms | | | | | | (WQ-GAX-LBO-001)Phase: | | | | | | Phase 2 | | | | | | Location(s): [place]Gene(s): | | | | | | RAD50, CHEK2, PALB2, | | | | | | BRIP1, WRN, ARID1A, | | | | | | BAP1, FEN1, CDA372M, | | | | | | PRKDC, [...] | | | | | | BRCA2, XSC15Jaztxtxc(s): | | | | | | Drug(s): | | | | | | [id number] - A | | | | | [...] MDM4, | | | | | | WFVB6S2, RHXP1V4, | | | | | | CY, CHDH5X6, | | | | | | NT8Pfmqvywz(s): ER | | | | | | Negative, ERBB2 | | | | | | LossDrug(s): | | | | | | [id number] - | | | | | | A Multicenter Phase I/II | | | | | | Trial of A Novel MDM2 | | | | | | Inhibitor(APG-115) With | | | | | | or Without [place] | | | | | | Chemotherapy in P53 | | | | | | Wild-Type Salivary Gland | | | | | | CarcinomaPhase: Phase | | | | | | 1/Phase 2 | | | | | | Location(s): [place], | | | | | | [place]Gene(s): Wild-Type | | | | | | TP53, ZBJ3Poceldgh(s): | | | | | | Drug(s): Carboplatin, | | | | | | [id number] - A | | | | | [...] CDKN2A, | | | | | | DUCQ8IA4, PBRM1, MLH1, | | | | | | PMS2, MSH6, | | | | | | SMO7Eofoweky(s): KRAS | | | | | | G12, KRAS G13, KRAS Q61, | | | | | | FFXK1CU5 Increased | | | | | | Expression, PBRM1 Loss, | | | | | | TMB High, Microsatellite | | | | | | instabilityDrug(s): | | | | | | Palbociclib, | | | | | | Telaglenastat, | | | | | | [id number] | | | | | | 831 [...] BRIP1, | | | | | | YMJY6KR4, | | | | | | MQDI7Cvyfxheo(s): FH | | | | | | Loss, SDHA Loss, SDHB | | | | | | Loss, SDHC Loss, SDHD | | | | | | LossDrug(s): | | | | | | Talazoparib, Avelumab, | | | | | | [id number] - | | | | | | A Phase I Open-label | | | | | | Dose Escalation Trial of | | | | | | BI 5601000 as | | | | | | [...] KRAS | | | | | | P10Kpii(s): | | | | | | [id number] - | | | | | | [...] | | | | | | PDCD1, IEBW3DV5, GNA11, | | | | | | GNAQ, CY, | | | | | | Z2BKQsyarnxt(s): | | | | | | Drug(s): Cobimetinib, | | | | | | Atezolizumab, | | | | | | Hydroxychloroquine, | | | | | | Ampicillin, Mefloquine, | | | | | | Dazafez-8-Dtrwqddgr, | | | | | | Methotrexate, | | | | | | Cyclosporine, | | | | | | Prednisone, Cimetidine, | | | | | | Cobimetinib + | | | | | | [id number] | | | | | | - A Jzfuo-iw-Pjzqj, | | | | | | Phase [...] NRAS | | | | | | A34Nkfi(s): | | | | | | Diethyltoluamide, [...] Total | | | | | | Mjody=415 MSI Somatic | | | | | [...] (PMID: | | | | | | [id number]), a TMB in the | | | [...] | | | | Ref Mena BAP1 HOWV0390.1 | | | | | | c.1123G>T hg19 chr3 | | | | | | [id number] C A | | | | | | VHL VFQX4803.1 | | | | | | c.311_323del hg19 chr3 | | | | | | [id number] | | | | | | TGGCACGGGCCGCC T MAPK1 | | | | | | NCPZ82321.1 c.571_588del | | | | | | hg19 chr22 [id number] | | | | | | [id number] | | | | | | CTGGAGCCCTGTACCAACG [...] the | | | | | | m48/m60 tank driver genes are known | | | [...] | | | | | | an Saavn | | | | | | VkoiMht591/[employer]. The gene | | | | | | fusions can be detected | | | | | | to the range of | | | | | | approximately 1-5% of | | | | | | input cells. | | | | + + + + + + | DISCLAIMER | This test was developed | | [facility] | | | | and its performance | | DIAGNOSTIC | | | | characteristics | | | | | | determined by the [facility] | | LABORATORIE | | | | [facility] | | S | | [...] | | | | | (CLIA). The [facility] | | | | | | Diagnostics | | | | | | Laboratories are fully | | | | | | licensed by the state of | | | | | | [place] under CLIA and | | | | | | are accredited by the | | | | | | [employer] [place] | | | | | | Pathologists (CAP). | | | | | | Woven Label Designer: | | | | | | Richard [...] | CH[facility]IS | [address] | [place] [address] | | | DIAGNOSTIC | [address] [...]
--- OUTSIDE RECORDS SUMMARY | ~2020-06-29 | XMS | Encounter Summary ---
Demographics + + + | Address | [address] | | | [place] [address] | + + + | Home Phone | | + + + | Preferred Language | Unknown | + + + | Marital Status | | + + + | Religion Affiliation | 1013 | + + + | Race | or Other | + + + | Ethnic Group | Not or | + + + Author + + + | Author | [facility] | | | and Shahram | + + + | Organization | [facility] | | | and Marcana [...] Providers + +------+ + | Care Community Mental Health Social Worker Name | Role | Phone | + +------+ + PCP | Unavailable | + +------+ + Encounter Details +--------+ + + + + | Date | Type | Department | Care Team | Description | +--------+ + + + + | 11/11/ | Hospital | [facility] | | | | 2007 - | Encounter | MED CTR CANCER | | | | | | CENTER [address] | | | | 12/05/ | | [place] | | | | 2007 | | [address] | | | | | | [phone] | | | +--------+ + + + [...]
--- OUTSIDE RECORDS SUMMARY | ~2020-06-29 | XMS | Encounter Summary ---
Demographics + + + | Address | [address] | | | [place] [address] | + + + | Home Phone [...] Providers + +------+ + | Care Assistant Curator Name | Role | Phone | + [...] | | Clinics at S | [place] [address] | | | | | [facility] [address] | | | | | [facility] | [place], [place] | | | | | Health and Healing, | [address] | | | | | [address] | [phone] | | | | | [place], [place] | | | | | | [address] | | | | | | [phone] | | | +--------+ + + + [...] 1:29 PM PDT Patient scheduled as requested. Me[employer] message notifying patient of appointment. FYI. Anjel snow signed by Lito Keyes at 05/20/2020 1:31 PM PDTdocumented in this encounter Plan of Treatment Not on filedocumented as of this encounter Visit Diagnoses Not on filedocumented in this encounter"
--- OUTSIDE RECORDS SUMMARY | ~2020-06-29 | XMS | Encounter Summary ---
Demographics + + + | Address | [address] | | | [place] [address] | + + + | Home Phone [...] Team Providers + +------+ + | Care Ornithology Teacher Name | Role | Phone | [...] | neoplasm of | RADHA Curran | [address] | | | | | unspecified | [place] | [address] | | | | | kidney, | Family | [place], | | | | | except renal | Medicine | [place] [address] | | | | | pelvis | [address] | Phone: | | | | | Procedures | [address] | [phone] | | | | | [place] NEW | [place], | Fax: | | | | | PATIENT | [place] [address] | [phone] | | | | | LEVEL V MD | Phone: | | | | | | EST PATIENT | [phone] | | | | | | LEVEL V | Fax: | | | | | | | [phone] | | + +---------+ + + + + Encounter Details +--------+---------+ + + + | Date | Type | Department | Care Team | Description | +--------+---------+ + + + | 10/10/ | Office | [facility] | Lissette Jones, | 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, [place] | laterality (HCC) | | | | Health and Healing, | [address] | (Primary Dx) | | | | Building [address] | [phone] | | | | | [place], [place] | | | | | | [address] | | | | | | [phone] | | | +--------+---------+ + + + [...] speech. Appropriate mood/affect. Laboratory: LAB RESULTS: Clinical Police Judge on 10/10/2019 Component Date Value WHITE CELL [...] CREATININE PLASMA (LAB) 10/10/2019 1.37* EGFR - ENGLISH 10/10/2019 48* EGFR NON -ENGLISH 10/10/2019 40* SODIUM, PLASMA (LAB) 10/10/2019 132* [...] 10/10/2019 3.6* ALBUMIN/GLOBULIN RATIO 10/10/2019 0.6* Lissette Jonse MD documented in this e ncounter Plan [...]
--- OUTSIDE RECORDS SUMMARY | ~2020-06-29 | XMS | Encounter Summary ---
Demographics + + + | Address | [address] | | | [place] [address] | + + + | Home Phone [...] Team Providers + +------+ + | Care Protection Agent Name | Role | Phone | + +------+ + | Lissette Martinez PA-C | PCP | | + +------+ + Encounter Details +--------+ + + + + | Date | Type | Department | Care Team | Description | +--------+ + + + + | 12/22/ | MyChart | Hematology/Medical | Margo Reid, KESHA | nutrition summary | | 2020 | Encounter | Oncology at [facility] | [address] | | | | | [address] | [facility] [place] | | | | | [facility] | [address] | | | | | and Healing, | [phone] | | | | | [address] | | | | | | [place], [place] | | | | | | [address] | | | | | | [phone] | | | +--------+ + + + [...]
--- OUTSIDE RECORDS SUMMARY | ~2020-06-29 | XMS | Encounter Summary ---
Demographics + + + | Address | [address] | | | [place] [address] | + + + | Home Phone [...] + + + | Author | [facility] | + + + | Organization | [facility] | + + + | Address | Unknown | + + + | Phone | Unavailable | + + + Support + + +---------+ + | Name | Relationship | Address | Phone | + + +---------+ + | William Talavera | ECON | Unknown | | + + +---------+ + Care Team Providers + +------+ + | Care Supplier Relationship Director Name | Role | Phone | + +------+ + | Lissette Martinez PA-C | PCP | | + +------+ + Reason for Visit + +--------+ + | Reason | Onset | Comments | | | Date | | + +--------+ + | Appointment Question | 11/14/ | | | | 2020 | | + +--------+ + Encounter Details +--------+--------+ + + + | Date | Type | Department | Care Team | Description | +--------+--------+ + + + | 11/14/ | Refill | [facility] | Jay JayHolly driverline, | Appointment Question | | 2020 | | Clinics at S | [place] [address] | | | | | [facility] [address] | | | | | [facility] | [place], [place] | | | | | Health and Healing, | [address] | | | | | [address] | [phone] | | | | | [place], [place] | | | | | | [address] | | | | | | [phone] | | | +--------+--------+ + + + [...] Telephone Encounter - Giovanna Tomas RN - 11/15/2019 2:[address] Jones to sign. E lectronically signed by Giovanna Tomas RN at 11/15/2019 2:32 PM PDTTelephone Encounter - Carlo Navas - 11/15/2019 2:00 PM PDTPatient calls regarding her upcoming infusion on Thursday. States that last time, the MD prescribed her a small circular clear patch that sticks behin d the ear to help with nausea (patient has a 3-hour drive from [place], gets motion sickne ss normally and it's exacerbated by the chemo). Asks for another one for this appointment, please - would like to pick it up at the [facility] in [place] before they leave for [place] on Saturday 11/18. Routing to RNC and MD docum ented in this encounter Plan of Treatment Not on filedocumented as of this encounter Visit Diagnoses Not on filedocumented in this encounter"
--- OUTSIDE RECORDS SUMMARY | ~2020-06-29 | XMS | Encounter Summary ---
Demographics + + + | Address | [address] | | | [place] [address] | + + + | Home Phone | | + + + | Preferred Language | Unknown | + + + | Marital Status | | + + + | Amish Affiliation | 1013 | + + + | Race | or Other | + + + | Ethnic Group | Not or | + + + Author + + + | Author | [facility] | | | and Shahram | + + + | Organization | [facility] | | | and [...] Team Providers + +------+ + | Care Marketing Operations Coordinator Name | Role | Phone | + +------+ + | Lissette Martinez | PCP | | | RADHA | | | + +------+ + Encounter Details +--------+ + + + + | Date | Type | Department | Care Team | Description | +--------+ + + + + | 12/12/ | Documentati | [facility] | Florin Roach, | | | 2020 | on | MED CTR MEDICAL | [facility] | | | | | [facility] [address] | | | | | [address] | | | | | | [place] [address] | | | | | | [phone] | | | +--------+ + + + [...]
--- OUTSIDE RECORDS SUMMARY | ~2020-06-29 | XMS | Encounter Summary ---
Demographics + + + | Address | [address] | | | [place] [address] | + + + | Home Phone | | + + + | Preferred Language | Unknown | + + + | Marital Status | | + + + | Rastafari Affiliation | 1013 | + + + | Race | or Other | + + + | Ethnic Group | Not or | + + + Author + + + | Author | [facility] | | | and Shahram | + + + | Organization | [facility] | | | and Marcana [...] Team Providers + +------+ + | Care Actuarial Mathematician Name | Role | Phone | + [...] | | | [address] | [place] [address] | | | | | [place] [address] | | | | | | [phone] | | | +--------+ + + + [...]
--- OUTSIDE RECORDS SUMMARY | ~2020-06-29 | XMS | Encounter Summary ---
Demographics + + + | Address | [address] | | | [place] [address] | + + + | Home Phone [...] Providers + +------+ + | Care Service Liaison Representative Name | Role | Phone | + +------+ + | Lissette Martinez PA-C | PCP | | + +------+ + Encounter Details +--------+ + + + + | Date | Type | Department | Care Team | Description | +--------+ + + + + | 12/26/ | Pharmacy | Pharmacy @ | | | | 2019 | Visit | [facility] | | | | | | [place] [address] | | | | | | [facility] | | | | | | [place] [address] | | | +--------+ + + + [...]
--- OUTSIDE RECORDS SUMMARY | ~2020-06-29 | XMS | Encounter Summary ---
Demographics + + + | Address | [address] | | | [place] [address] | + + + | Home Phone [...] Team Providers + +------+ + | Care Etl Software Engineer Name | Role | Phone | [...] | at [facility] [address] | [address] [facility] | | | | | [address] [place] | [facility] | | | | | [address], 4th floor | [place], [place] | | | | | [place] | [address] | | | | | [address] | [phone] | | | | | [phone] | | | +--------+ + + + [...] her MRI is on 04/19 @10:30am at [facility]. We scheduled her for a phone FUP on 04/20 @10am with Dr. Beard. Closing encounter. elephon e Encounter - CarlozalinePromise - 04/02/2020 3:38 PM PDTAliciandrew will be due for a new MRI and ph one FUP with Dr. Beard around 04/21/20. I called her today and let her know I have faxed the MRI order to [facility] and re quested she calls me once the MRI is scheduled so we can set her up for a phone FUP with Dr. Beard. I provided the contact information for [facility] and Tila confirmed she will clark l me back as soon as she schedules the MRI. Electronically signed by Promise Rodrigues at 020 3:43 PM PDTdocumented in this encounter Plan of Treatment Not on filedocumented as of this encounter Visit Diagnoses Not on filedocumented in this encounter"
--- OUTSIDE RECORDS SUMMARY | ~2020-06-29 | XMS | Encounter Summary ---
Demographics + + + | Address | [address] | | | [place] [address] | + + + | Home Phone [...] Team Providers + +------+ + | Care Specialty Development Consultant Name | Role | Phone | [...]
--- OUTSIDE RECORDS SUMMARY | ~2020-06-29 | XMS | Encounter Summary ---
Demographics + + + | Address | [address] | | | [place] [address] | + + + | Home Phone [...] Team Providers + +------+ + | Care Instructional Technology Instructor Name | Role | Phone | + [...]
--- OUTSIDE RECORDS SUMMARY | ~2020-06-29 | XMS | Encounter Summary ---
Demographics + + + | Address | [address] | | | [place] [address] | + + + | Home Phone [...] Team Providers + +------+ + | Care Out Of School Hours Care Worker Name | Role | Phone | + +------+ + | Lissette Martinez PA-C PCP | | + +------+ + Encounter Details +--------+--------+ + + + | Date | Type | Department | Care Team | Description | +--------+--------+ + + + | 03/12/ | Travel [...]
--- OUTSIDE RECORDS SUMMARY | ~2020-06-29 | XMS | Encounter Summary ---
Demographics + + + | Address | [address] | | | [place] [address] | + + + | Home Phone [...] + + + | Author | [facility] | | | and Shahram | + + + | Organization | [facility] [...] Team Providers + +------+ + | Care Fireman Name | Role | Phone | + +------+ + PCP | Unavailable | + +------+ + Encounter Details +--------+ + + + + | Date | Type | Department | Care Team | Description | +--------+ + + + + | 06/04/ | Hospital | [facility] | | | | 2005 - | Encounter | [facility] | | | | | | [facility] [address] | | | | 09/02/ | | [place] | | | | 2005 | | [phone] | | | | | | [phone] | | | +--------+ + + + [...]
--- OUTSIDE RECORDS SUMMARY | ~2020-06-29 | XMS | Encounter Summary ---
Demographics + + + | Address | [address] | | | [place] [address] | + + + | Home Phone [...] + + + | Author | [facility] | + + + | Organization | [facility] | + + + | Address | Unknown | + + + | Phone | Unavailable | + + + Support + + +---------+ + | Name | Relationship | Address | Phone | + + +---------+ + | William Talavera | ECON | Unknown | | + + +---------+ + Care Team Providers + +------+ + | Care Shoe Salesperson Name | Role | Phone | + +------+ + | Lissette Martinez PA-C | PCP | | + +------+ + Encounter Details +--------+ + + + + | Date | Type | Department | Care Team | Description | +--------+ + + + + | 03/26/ | Pharmacy | Pharmacy @ [facility] | | | | 2019 | Visit | [address] | | | | | | Colin Frank Mailcode: | | | | | | [facility] | | | | | | and Healing, | | | | | | Building 2 | | | | | | [place], [place] | | | | | | [address] | | | +--------+ + + + [...]
--- OUTSIDE RECORDS SUMMARY | ~2020-06-29 | XMS | Encounter Summary ---
Demographics + + + | Address | [address] | | | [place] [address] | + + + | Home Phone [...] Author + + + | Author | [facility] | + + + | Organization | [facility] | + + + | Address | Unknown | + + + | Phone | Unavailable | + + + Support + + +---------+ + | Name | Relationship | Address | Phone | + + +---------+ + | William Talavera | ECON | Unknown | | + + +---------+ + Care Team Providers + +------+ + | Care Mica Paster Name | Role | Phone | + [...] | 2020 | | Nate Correia | [address] | | | | | [address] | | | | | [place], [place] | [place], [place] | | | | | [address] | [address] | | | | | [phone] | [phone] | | | | | | | [...]
--- OUTSIDE RECORDS SUMMARY | ~2020-06-29 | XMS | Encounter Summary ---
Demographics + + + | Address | [address] | | | [place] [address] | + + + | Home Phone | | + + + | Preferred Language | Unknown | + + + | Marital Status | Single | + + + | Buddhism Affiliation | CHR | + + + [...] Team Providers + +------+ + | Care Passenger Service Representative Name | Role | Phone | + +------+ + | Lissette Martinez PA-C | PCP | | + +------+ + Encounter Details +--------+------+ + + + | Date | Type | Department | Care Team | Description | +--------+------+ + + + | 08/23/ | Lab | Laboratory at [facility] | | Kidney cancer, | | 2019 | | [address] | | primary, with | | | | [place] [facility] | | metastasis from | | | | and Healing, | | kidney to other | | | | Building 2 | | site, left (HCC) | | | | [facility] [place] | | | | | | [address] | | | | | | [phone] | | | +--------+------+ + + + [...] MARTIN TOTAL,ALK | | | site, left ([facility]) | | | PHOS,ALB,PROT TOTAL) | | [...] | | | | | site, left ([facility]) | | + +--------+ + [...] SERVICES, | | | | | | [facility] | | | | | | HEALTH [...] + + + + + | [facility] | [address] | [place] [address] | | | SERVICES, [facility] | | | | | HEALTH + HEALING | | | | + + + + + ADRIANA SANTIAGO ONLY (08/23/2019 12:02 PM PST) [...] | + + + + + | [facility] | [address] | [place] [address] | | | SERVICES, [place] [facility] | | | | | HEALTH [...] [facility] | [address] | [place] [address] | | | SERVICES, CORE | PARK [...] utilizing a similar TSH assay, and | MICHELLE, DWIGHT | | should be interpreted with caution. | | + + + + + + + + | Performing | Address | City/State/Zipcode | Phone Number | | Organization | | | | + + + + + | [facility] | [address] | [place] [address] | | | DWIGHT MARTINE[place] | [place] [...] | | | LABORATORY | | | [place] | | | SERVICES, | | | [...] MDRD equation recommended by the National | [facility] | | Kidney Disease Education Program. [...] + + + + + | [facility] | [address] | [place] [address] | | | [facility] | | | | | HEALTH + HEALING | | | | + + + + + documented in this encounter Visit Diagnoses + + | Diagnosis | + + | Kidney cancer, primary, 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
--- OUTSIDE RECORDS SUMMARY | ~2020-06-29 | XMS | Encounter Summary ---
Demographics + + + | Address | [address] | | | [place] [address] | + + + | Home Phone [...] Team Providers + +------+ + | Care Reworker Name | Role | Phone | + [...] | | | neoplasm of | RADHA Curarn | [address] | | | | | unspecified | [place] | [address] | | | | | kidney, | Family | [place], | | | | | except renal | Medicine | [place] [address] | | | | | pelvis | [address] | Phone: | | | | | Procedures | [address] | [phone] | | | | | [place] NEW | [place], | Fax: | | | | | PATIENT | [place] [address] | [phone] | | | | | LEVEL V [place] | Phone: | | | | | | EST PATIENT | [phone] | | | | | | LEVEL V | Fax: | | | | | | | [phone] | | + +---------+ + + + + Encounter Details +--------+---------+ + + + | Date | Type | Department | Care Team | Description | +--------+---------+ + + + | 11/01/ | Office | [facility] | Lissette Jones, | Kidney cancer, | | 2020 | Visit | Clinics at S | [place] [address] [address] | primary, with | | | | [facility] [address] | metastasis from | | | | [facility] for | [facility] [place] | kidney to other | | | | Health and Healing, | [address] | site, left (HCC) | | | | Building 2 | [phone] | (Primary Dx) | | | | [place], [place] | | | | | | [address] | | | | | | [phone] | | | +--------+---------+ + + + [...] + + + | Blood Pressure | 89/53 | 11/01/2019 11:11 AM | | | | | PST | | + + + + + | Pulse | 115 | 11/01/2019 11:11 AM | | | | | PST | | + + + + + | Temperature | 36.6 C (97.9 F) | 11/01/2019 11:11 AM | | | | | PST | | + + + + + | Respiratory Rate | 16 | 11/01/2019 11:11 AM | | | | | PST | | + + + + + | Oxygen Saturation | 100% | 11/01/2019 11:11 AM | | | | | PST | | + + + + + | Inhaled Oxygen | - | - | | | Concentration | | | | + + + + + | Weight | 84.8 kg (187 lb) | 11/01/2019 11:11 AM | | | | | PST | | + + + + + | Height | - | - | | + + + + + | Body Mass Index | 33.13 | 10/10/2019 11:16 AM | | | [...] encounter Progress Notes Lissette Jones MD - 11/01/2019 10:55 AM PSTFormatting of this note might be different fr om the original. FOLLOW-UP NOTE Patient: Tila Altman Date: 11/01/2019 : 1965 AGE: 54 y.o. Attending Physician: [...] for follow up visit. She is s/p 3rd cycle yesterday. She's feeling fin e but was mildly hypotensive and tachycardic- post IVF BP improved but she was still tachyca rdic, EKG with sinus tachycardia only. K elevated. Impression/Plan Tila Altman is a 54 y.o. [...] UA, cbc, cmp today Cycle 3 ipi/nivo yesterday HyperK- she's experienced this before- will give her lasix 20mg qday and kayexalate and rec heck bmp in a few days RTC 3 weeks for cycle [address] CT post 4 weeks Medications: Current Outpatient Medications Medication Sig cholecalciferol 50,000 unit oral capsule Take 1 capsule by mouth once daily. Indication s: vitamin D deficiency (high dose therapy) levothyroxine 175 mcg oral tablet Take 1 [...] hours as needed for breakthough p ain). scopolamine 1 mg over 3 days transdermal patch 3 day Apply 1 patch to skin every sevent y-two hours. No current facility-administered medications for this visit. [...] visit. Latest known visit with results is: Hospital Outpatient Visit on 10/31/2019 Component Date Value TROPONIN I 10/31/2019 <0.02 GLUCOSE, PLASMA (LAB) 10/31/2019 74 BUN, PLASMA (LAB) 10/31/2019 50* CREATININE PLASMA (LAB) 10/31/2019 1.60* EGFR - SUDANESE 10/31/2019 40* EGFR NON -SUDANESE 10/31/2019 33* SODIUM, PLASMA (LAB) 10/31/2019 133* POTASSIUM, PLASMA (LAB) 10/31/2019 6.2* CHLORIDE, PLASMA (LAB) 10/31/2019 111* TOTAL CO2, PLASMA (LAB) 10/31/2019 16* CALCIUM, PLASMA (LAB) 10/31/2019 7.8* ANION GAP 10/31/2019 6 BUN/CREATININE RATIO 10/31/2019 31* Lissette Jones MD documented in this e ncounter Plan of Treatment Not on filedocumented as of this encounter Procedures + +--------+ + + + | Procedure Name | Priori | Date/Time | Associated Diagnosis | Comments | | | ty | | | | + +--------+ + + + | LAB REPORTS | | 11/04/2019 | | Results for this | | | | 12:00 AM | | procedure are in the | | | | PST | | results section. | + +--------+ + + + documented in this encounter Results LAB REPORTS (11/04/2019 12:00 AM PST) + + + | [...]
--- OUTSIDE RECORDS SUMMARY | ~2020-06-29 | XMS | Encounter Summary ---
Demographics + + + | Address | [address] | | | [place] [address] | + + + | Home Phone [...] Team Providers + +------+ + | Care Vp Director Of Creative Strategy Name | Role | Phone | + [...] | neoplasm of | RADHA Curran | [address] | | | | | unspecified | [place] | [address] | | | | | kidney, | Family | [place], | | | | | except renal | Medicine | [place] [address] | | | | | pelvis | [address] | Phone: | | | | | Procedures | [address] | [phone] | | | | | [place] NEW | [place], | Fax: | | | | | PATIENT | [place] [address] | [phone] | | | | | LEVEL V [place] | Phone: | | | | | | EST PATIENT | [phone] | | | | | | LEVEL V | Fax: | | | | | | | [phone] | | + +---------+ + + + + Encounter Details +--------+ + + + + | Date | Type | Department | Care Team | Description | +--------+ + + + + | 04/23/ | Video/TeleH | [facility] Cancer | Lissette Jones, | No Show | | 2020 | ealth-Sched | Clinics at S | [place] [address] | | | | uled | [facility] [address] | | | | | [facility] for | [place], [place] | | | | | Health and Healing, | [address] | | | | | Building 2 | [phone] | | | | | [place], [place] | | | | | | [address] | | | | | | [phone] | | | +--------+ + + + [...] provider located at the distant site of [facility]. T he patient stated they were [...] patient's unnecessary exposure. FOLLOW-UP NOTE Patient: Tila Atlman Date: 04/23/2020 : 1965 AGE: 54 y.o. [...] Keep extra tabs on hand and call [facility] clinic with any symptoms as [...]
--- OUTSIDE RECORDS SUMMARY | ~2020-06-29 | XMS | Encounter Summary ---
Demographics + + + | Address | [address] | | | [place] [address] | + + + | Home Phone [...] Providers + +------+ + | Care Field Case Manager Name | Role | Phone | + +------+ + | Lissette Martinez PA-C | PCP | | + +------+ + Encounter Details +--------+ + + + + | Date | Type | Department | Care Team | Description | +--------+ + + + + | 03/19/ | Pharmacy | Pharmacy @ [facility] | | | | 2020 | Visit | [address] | | | | | | [address] Mailcode: | | | | | | [facility] | | | | | | and Healing, | | | | | | Building 2 | | | | | | [place], [place] | | | | | | [address] | | | +--------+ + + + [...]
--- OUTSIDE RECORDS SUMMARY | ~2020-06-29 | XMS | Encounter Summary ---
Demographics + + + | Address | [address] | | | [place] [address] | + + + | Home Phone | | + + + | Preferred Language | Unknown | + + + | Marital Status | Single | + + + | Catholic Affiliation | CHR | + + [...] Providers + +------+ + | Care Product Marketing Specialist Name | Role | Phone | [...] | | | | | cancer, | [address] | [address] | | | | | primary, | [address] | [address] | | | | | with | Ct | Hospital, | | | | | metastasis | [facility], | 10th Floor | | | | | from kidney | [place] | [place], [place] | | | | | to other | [address] | [address] | | | | | site, left | Phone: | Phone: | | | | | (HCC) | [phone] | [phone] | | | | | Procedures | Fax: | Fax: | | | | | CT CHEST, | [phone] | [phone] | | | | | ABDOMEN AND | | | | | | | PELVIS WO IV | | | | | | | CONTRAST | | | | | | | CT CHEST, | | | | | | | ABDOMEN AND | | | | | | | PELVIS W IV | | | | | | | CONTRAST OH | | | | | | | CAT SCAN OF | | | | | | | CHEST | | | | | | | CONTRAST [place] | | | | | | | CT | | | | | | | ABDOMEN&PELV | | | | | | | IS | | | | | | | W/CONTRAST | | | | | | | [place] CT | | | | | | | SCAN,THORAX, | | | | | | | W/O CONTRAST | | | | | | | [place] CT ABD | | | | | [...] Orders | Clinics at S | [place] [address] | | | | | [facility] [address] | | | | | [facility] for | [place], [place] | | | | | Health and Healing, | [address] | | | | | [facility] 2 | [phone] | | | | | [place], [place] | | | | | | [address] | | | | | | [phone] | | | +--------+ + + + [...] | | + +---------+ + + | [facility] | | | | | VOICE RECOGNITION 2 | | | | + +---------+ + + documented in this encounter Visit Diagnoses + + | Diagnosis | + + | Kidney cancer, primary, 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
--- OUTSIDE RECORDS SUMMARY | ~2020-06-29 | XMS | Encounter Summary ---
Demographics + + + | Address | [address] | | | [place] [address] | + + + | Home Phone | | + + + | Preferred Language | Unknown | + + + | Marital Status | Single | + + + | Mu-Ism Affiliation | CHR | + + + [...] Team Providers + +------+ + | Care Urban And Regional Planner Name | Role | Phone | + +------+ + | Lissette Martinez PA-C | PCP | | + +------+ + Encounter Details +--------+ + + + + | Date | Type | Department | Care Team | Description | +--------+ + + + + | 11/28/ | Pharmacy | Outpatient Retail | | | | 2019 | Visit | Clinic Pharmacy | | | | | | [address] | | | | | | [place], [place] | | | | | | [address] | | | | | | [phone] | | | +--------+ + + + [...]
--- OUTSIDE RECORDS SUMMARY | ~2020-06-29 | XMS | Encounter Summary ---
Demographics + + + | Address | [address] | | | [place] [address] | + + + | Home Phone [...] Team Providers + +------+ + | Care Secretary Of Police Name | Role | Phone | + [...] | neoplasm of | RADHA Curran | [address] | | | | | unspecified | [place] | [address] | | | | | kidney, | Family | [place], | | | | | except renal | Medicine | [place] [address] | | | | | pelvis | [address] | Phone: | | | | | Procedures | [address] | [phone] | | | | | [place] NEW | [place], | Fax: | | | | | PATIENT | [place] [address] | [phone] | | | | | LEVEL V [place] | Phone: | | | | | | EST PATIENT | [phone] | | | | | | LEVEL V | Fax: | | | | | | | [phone] | | + +---------+ + + + + Encounter Details +--------+ + + + + | Date | Type | Department | Care Team | Description | +--------+ + + + + | 04/23/ | Video/TeleH | [facility] | Lissette Jones, | No Show | | 2020 | ealth-Sched | Clinics at S | [place] [address] | | | | uled | [facility] [address] | [address] | | | | | [facility] for | [place], [place] | | | | | Health and Healing, | [address] | | | | | Building 2 | [phone] | | | | | [place], [place] | | | | | | [address] | | | | | | [phone] | | | +--------+ + + + [...] provider located at the distant site of [facility]. T he patient stated they [...] Keep extra tabs on hand and call [facility] clinic with any symptoms as discussed. [...]
--- OUTSIDE RECORDS SUMMARY | ~2020-06-29 | XMS | Encounter Summary ---
Demographics + + + | Address | [address] | | | [place] [address] | + + + | Home Phone [...] Providers + +------+ + | Care Water Fitness Instructor Name | Role | Phone | + +------+ + | Lissette Martinez PA-C | PCP | | + +------+ + Encounter Details +--------+ + + + + | Date | Type | Department | Care Team | Description | +--------+ + + + + | 08/24/ | Resource Paraprofessional | Hematology | Lissette Jones, | | | 2019 | | Oncology Study [address] | [address] | | | | | [address] | [address] | | | | | Mailcode: CH7M | [place], [place] | | | | | [facility] | [address] | | | | | and [place], | [phone] | | | | | [facility] | | | | | | Floor [place], [place] | | | | | | [address] | | | | | | [phone] | | | +--------+ + + + [...]
--- OUTSIDE RECORDS SUMMARY | ~2020-06-29 | XMS | Encounter Summary ---
Demographics + + + | Address | [address] | | | [place] [address] | + + + | Home Phone [...] Providers + +------+ + | Care Business Systems Manager Name | Role | Phone | + +------+ + | Lissette Martinez PA-C PCP | | + +------+ + Encounter Details +--------+--------+ + + + | Date | Type | Department | Care Team | Description | +--------+--------+ + + + | 02/26/ | Travel [...]
--- OUTSIDE RECORDS SUMMARY | ~2020-06-29 | XMS | Encounter Summary ---
Demographics + + + | Address | [address] | | | [place] [address] | + + + | Home Phone [...] Author + + + | Author | [facility] | | | and Shahram | + + + | Organization | [facility] | | | and [...] Team Providers + +------+ + | Care Language Arts Teacher Name | Role | Phone | + +------+ + | Lissette Martinez | PCP | | | RADHA | | | + +------+ + Reason for Referral Evaluate & Treat (Routine) +--------+ + + + + + | Status | Reason | Specialty | Diagnoses / | Referred By | Referred To | | | | | Procedures | Contact | Contact | +--------+ + + + + + | Closed | Specialty | Physical | Diagnoses | Janiya, | [facility] | | | Services | Therapy | Impaired | Aileen Cuello, | HOSPITAL | | | Required | | mobility | [place] [address] | PHYSICAL | | | | | Metastatic | [address] | THERAPY [address] | | | | | renal cell | [place], | [place] | | | | | carcinoma, | [place] [address] | [place], [place] | | | | | unspecified | Phone: | [address] | | | | | laterality | [phone] | Phone: | | | | | (HCC) | Fax: | [phone] | | | | | Secondary | [phone] | Fax: | | | | | cancer of | | [phone] | | | | | bone (HCC) | | | | | | | Procedures | | | | | | | PT SAH | | | +--------+ + + + + + Encounter Details +--------+ + + + + | Date | Type | Department | Care Team | Description | +--------+ + + + + | 12/26/ | Orders Only | [facility] | Aileen Denson | Impaired mobility | | 2019 | | [facility] RAD[facility]ATION | MD Khushboo [address] | (Primary Dx); | | | | ONCOLOGY CLINIC [address] | [place], [place] | Metastatic renal | | | | [facility] | [address] | cell carcinoma, | | | | [place] [address] | | unspecified | | | | [phone] | | laterality (HCC); | | | | | | Secondary cancer of | | [...] of this encounter Plan of Treatment + + +--------+ + + | Name | Type | Priori | Associated Diagnoses | Order Schedule | | | | ty | | | + + +--------+ + + | Eric | Outpatient | Routin | Impaired mobility | Ordered: 12/27/2019 | | Hospital Physical | Referral | e | Metastatic renal | | | Therapy, External - | | | cell carcinoma, | | | AMB Referral | | | unspecified | | | | | | laterality (HCC) | | | | | | Secondary cancer of | | | | | | bone (HCC) | | + + +--------+ + + documented as of this encounter Visit Diagnoses + + | Diagnosis | + + | Impaired mobility - Primary Other ill-defined conditions | + + | Metastatic renal cell carcinoma, unspecified laterality (HCC) | + + | 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
--- OUTSIDE RECORDS SUMMARY | ~2020-06-29 | XMS | Encounter Summary ---
Demographics + + + | Address | [address] | | | [place] [address] | + + + | Home Phone [...] + + + | Author | [facility] | + + + | Organization | [facility] | + + + | Address | Unknown | + + + | Phone | Unavailable | + + + Support + + +---------+ + | Name | Relationship | Address | Phone | + + +---------+ + | William Talavera | ECON | Unknown | | + + +---------+ + Care Team Providers + +------+ + | Care Tool Dresser Name | Role | Phone | + +------+ + | Lissette Martinez PA-C | PCP | | + +------+ + Reason for Visit + +--------+ + | Reason | Onset | Comments | | | Date | | + +--------+ + | Care Coordination | 08/23/ | | | | 2019 | | + +--------+ + Encounter Details +--------+ + + + + | Date | Type | Department | Care Team | Description | +--------+ + + + + | 08/23/ | Telephone | [facility] | Lissette Jones, | Care Coordination | | 2019 | | Clinics at S | [place] [address] | | | | | [facility] [address] | | | | | [facility] for | [place], [place] | | | | | Health and [facility] Er, | [address] | | | | | [facility] 2 | [phone] | | | | | [place], [place] | | | | | | [address] | | | | | | [phone] | | | +--------+ + + + [...] Addendum Note - Giovanna Tomas RN - 08/23/2019 5:20 PM PST Addended by: GIOVANNA TOMAS RN on: 05:20 PM Modules accepted: Orders elephone Encounter - Giovanna Saldivar RN - 08/23/2019 5:09 [address]Dr. Jones noted elevated serum calcium. She would like pt to have another liter of NS and pamidronate tomorrow. Hydration orders placed in infusion plan and Dr. Jones will enter pamidronate and request urgent authorization this evening. Routed to schedulers to add pt on to infusion tomorrow. elephone Encounter - Giovanna Tomas RN - 08/23/2019 12:[address] Jones, call from lab with critical CMP results. MD requests pt be added on for 1 L hy dration and CMP recheck post hydration. Pt scheduled in infusion at [address] Jones will see her while she's receiving fluids. El ectronically signed by Giovanna Tomas RN at 08/23/2019 1:16 PM PSTdocumented in this encounter Plan of Treatment Not on filedocumented as of this encounter Visit Diagnoses Not on filedocumented in this encounter"
--- OUTSIDE RECORDS SUMMARY | ~2020-06-29 | XMS | Encounter Summary ---
Demographics + + + | Address | [address] | | | [place] [address] | + + + | Home Phone [...] Author + + + | Author | [facility] | | | and Shahram | + + + | Organization | [facility] | | | and [...] Team Providers + +------+ + | Care Bingo Manager Name | Role | Phone | + +------+ + | Lissette Martinez | PCP | | | RADHA | | | + +------+ + Encounter Details +--------+ + + + + | Date | Type | Department | Care Team | Description | +--------+ + + + + | 12/29/ | Documentati | KIRAN BOWENS JAMIL | Aileen Denson | | | 2020 | on | MED CTR RADIATION | MD [facility] [address] | | | | | ONCOLOGY CLINIC [address] | [place], [place] | | | | | W [facility] | [address] | | | | | [place] [address] | | | | | | [phone] | | | +--------+ + + + [...] encounter Progress Notes Aileen Denson MD - 12/30/2019 1:31 PM PDT Radiation Treatment Summary Diagnosis: ICD-10-CM ICD-9-CM 1. 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) C64.2 189.0 Treatment Dates: Tial Bety Agapito was treated in our clinic between the dates of 12/01/2002 - 01/02/2003 and - 12/30/2019. Intent: Palliative Treatment Technique: 3 Field Plan Treatment Site: Spine, Lumbar Prescription and Treatment Summary: Course: Spine Plan ID Energy Fractions Dose per Fraction (cGy) Dose Correction (cGy) Total Dose Delivered (cGy) Elapsed Days L spine 10X 10 / 10 300 0 3,000 11 Pain: Location: NA Pain Level: PAIN PROG PAIN LEVEL: 0 Chemotherapy: Concurrent systemic therapy ipilimumab/nivolulmab on trail every 3 weeks at [facility]. Assessment: Tila Altman completed the planned course of course of external beam radiation therapy without any unexpected complications or breaks. Treatment tolerance: good. Disease response to treatment: Disease regression and/or disease related symptom improveme nt. Disposition: 1. Follow-up in our clinic: open as needed 2. Follow-up with medical oncology at [facility]. Coordination of care will be arranged between providers for future visits. Tila Altman was encouraged to call our clinic with any further questions or concerns. Thank you for allowing me to participate in her care. If you should have any questions rega rding this treatment summary, please do not hesitate to contact me. Aileen Denson MD Radiation Oncologist Department of Radiation Oncology [facility] documented in this encounter Plan of Treatment Not on filedocumented as of this encounter Visit Diagnoses + + | Diagnosis | + + | 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
--- OUTSIDE RECORDS SUMMARY | ~2020-06-29 | XMS | Encounter Summary ---
Demographics + + + | Address | [address] | | | [place] [address] | + + + | Home Phone [...] Team Providers + +------+ + | Care Copy Editor Name | Role | Phone | [...] | | | carcinoma of | [place] [address] | [address] | | | | | left kidney | [place] [address] | | | | | (HCC) | Ct | Center for | | | | | Procedures | [facility] and | | | | | [place] INJ | [place] | Healing, | | | | | NIVOLUMAB 1 | [address] | [address] | | | | | MG AL | Phone: | [place], [place] | | | | | CHM,IV | [phone] | [address] | | | | | INFSN,1 HR | Fax: | Phone: | | | | | AL CHM,IV | [phone] | [phone] | | | | | INFSN,ADDL | | Fax: | | | | | HR | | [phone] | | | | | nivolumab | [...] Encounter | Clinics at S | Ave [place], [place] | | | | | [address] | [address] | | | | | [address] [facility] | | | | | | Health and Healing, | | | | | | Building 2 | | | | | | [place], [place] | | | | | | [address] | | | | | | [phone] | | | +--------+ + + + [...] this time. Vascular Access: PIV placed by TUB RIDER - IVT 22 gauge - positive blood return Per Orders: For Treatment Done in Clinic Today: see MAR Labs results reviewed and met protocol parameters. Order from Dr Jones in chart to proceed w [facility] treatment today. Pre-medications of Pepcid , [...]
--- OUTSIDE RECORDS SUMMARY | ~2020-06-29 | XMS | Encounter Summary ---
Demographics + + + | Address | [address] | | | [place] [address] | + + + | Home Phone [...] [facility] | | | and Shahram | + + + | Organization | [facility] | | | and [...] Team Providers + +------+ + | Care Bait Digger Name | Role | Phone | [...] | | | [address] | [place] [address] | | | | | [place] [address] | | | | | | [phone] | | | +--------+ + + + [...]
--- OUTSIDE RECORDS SUMMARY | ~2020-06-29 | XMS | Encounter Summary ---
Demographics + + + | Address | [address] | | | [place] [address] | + + + | Home Phone [...] Author | [facility] | | | and Shahram | + + + | Organization | [facility] | | [...] Team Providers + +------+ + | Care Circulator Name | Role | Phone | + +------+ + PCP | Unavailable | + +------+ + Encounter Details +--------+ + + + + | Date | Type | Department | Care Team | Description | +--------+ + + + + | 11/11/ | Hospital | [facility] | | | | 2007 - | Encounter | MED CTR CANCER | | | | | | CENTER [address] | | | | 12/05/ | | [place] | | | | 2007 | | [address] | | | | | | [phone] | | | +--------+ + + + [...]
--- OUTSIDE RECORDS SUMMARY | ~2020-06-29 | XMS | Encounter Summary ---
Demographics + + + | Address | [address] | | | [place] [address] | + + + | Home Phone | | + + + | Preferred Language | Unknown | + + + | Marital Status | | + + + | Episcopal Affiliation | 1013 | + + + | Race | or Other | + + + | Ethnic Group | Not or | + + + Author + + + | Author | [facility] | | | and Shahram | + + + | Organization | [facility] | | | and Marcana [...] Providers + +------+ + | Care Wood Science Professor Name | Role | Phone | + +------+ + PCP | Unavailable | + +------+ + Encounter Details +--------+ + + + + | Date | Type | Department | Care Team | Description | +--------+ + + + + | 09/12/ | Hospital | [facility] | | | | 2008 - | Encounter | MED CTR CANCER | | | | | | CENTER [address] | | | | 10/07/ | | [place] | | | | 2008 | | [address] | | | | | | [phone] | | | +--------+ + + + [...]
--- OUTSIDE RECORDS SUMMARY | ~2020-06-29 | XMS | Encounter Summary ---
Demographics + + + | Address | [address] | | | [place] [address] | + + + | Home Phone [...] | + + +---------+ + | William Talaevra | ECON | Unknown | | + + +---------+ + Care Team Providers + +------+ + | Care Bull Bucker Name | Role | Phone | + [...] Pharmacy | | | | | | [address] | | | | | | [place], [place] | | | | | | [address] | | | | | | [phone] | | | +--------+ + + + [...]
--- OUTSIDE RECORDS SUMMARY | ~2020-06-29 | XMS | Encounter Summary ---
Demographics + + + | Address | [address] | | | [place] [address] | + + + | Home Phone [...] Author | [facility] | + + + | Organization | [facility] | + + + | Address | Unknown | + + + | Phone | Unavailable | + + + Support + + +---------+ + | Name | Relationship | Address | Phone | + + +---------+ + | William Talavera | ECON | Unknown | | + + +---------+ + Care Team Providers + +------+ + | Care Petrophysicist Name | Role | Phone | + [...] | | | | | metastases | [address] | [address] | | | | | ([facility]) | [address] | [address] | | | | | Procedures | [address] | [address] [place], | | | | | SIMULATION | [place] | [place] | | | | | IMAGING | [address] | [address] | | | | | | Phone: | Phone: | | | | | | [phone] | [phone] | | | | | | Fax: | Fax: | | | | | | [phone] | [phone] | +--------+--------+ + + + + Encounter Details +--------+ + + + + | Date | Type | Department | Care Team | Description | +--------+ + + + + | 03/06/ | Transcribe | Radiation Oncology | Antwon Beard, | | | 2020 | Orders | at [facility] [address] | [address] [facility] | | | | | [address] [place] | [facility] | | | | | [place], [place] floor | [place], [place] | | | | | [place], [place] | [address] | | | | | [address] | [phone] | | | | | [phone] | | | +--------+ + + + [...]
--- OUTSIDE RECORDS SUMMARY | ~2020-06-29 | XMS | Encounter Summary ---
Demographics + + + | Address | [address] | | | [place] [address] | + + + | Home Phone [...] Team Providers + +------+ + | Care Machinist Bench Name | Role | Phone | + +------+ + | Lissette Martinez PA-C | PCP | | + +------+ + Reason for Visit + +--------+ + | Reason | Onset | Comments | | | Date | | + +--------+ + | Care Coordination | 05/15/ | | | | 2020 | | + +--------+ + Encounter Details +--------+ + + + + | Date | Type | Department | Care Team | Description | +--------+ + + + + | 05/15/ | Telephone | [facility] | Lissette Jones, | Care Coordination | | 2019 | | Clinics at S | [place] [address] [address] | | | | | [facility] | | | | | [facility] for | [place], [place] | | | | | Health and [facility], | [address] | | | | | [facility] | [phone] | | | | | [place], [place] | | | | | | [address] | | | | | | [phone] | | | +--------+ + + + [...] this encounter Miscellaneous Notes Telephone Encounter - Tess Mar MA - 05/23/2020 3:36 PM PDTSpoke with radiology r equesting CT comparison as requested by Dr. Jones. They will be folloing up with this request via [email or web address] e-mail P DTTelephone Encounter - Anai Jimenez - 05/23/2020 2:32 PM PDTTeam Coordinator Documentati on: Subject: Note TC: Images from [place]'s scan on 05/06 available on [employer] -->Note to RNC: HOMA elephone Encounter - Wats on, Tess Moran MA - 05/23/2020 2:23 PM PDT documented in this encounter Plan of Treatment Not on filedocumented as of this encounter Visit Diagnoses Not on filedocumented in this encounter"
--- OUTSIDE RECORDS SUMMARY | ~2020-06-29 | XMS | Encounter Summary ---
Demographics + + + | Address | [address] | | | [place] [address] | + + + | Home Phone [...] | Author | [facility] | | | and Shahram | + + + | Organization | [facility] | | | and Marcana [...] Team Providers + +------+ + | Care Patternmaker Plastics Name | Role | Phone | + +------+ + PCP | Unavailable | + +------+ + Encounter Details +--------+ + + + + | Date | Type | Department | Care Team | Description | +--------+ + + + + | 06/02/ | Hospital | [facility] | | | | 2002 - | Encounter | MED CTR CANCER | | | | | | CENTER [address] | | | | 09/02/ | | [place] | | | | 2002 | | [address] | | | | | | [phone] | | | +--------+ + + + [...]
--- OUTSIDE RECORDS SUMMARY | ~2020-06-29 | XMS | Encounter Summary ---
Demographics + + + | Address | [address] | | | [place] [address] | + + + | Home Phone [...] Team Providers + +------+ + | Care Site Superintendent Name | Role | Phone | + +------+ + | Lissette Martinez PA-C | PCP | | + +------+ + Encounter Details +--------+------+ + + + | Date | Type | Department | Care Team | Description | +--------+------+ + + + | 08/23/ | Lab | Laboratory at [facility] | | Kidney cancer, | | 2019 | | [address] | | primary, with | | | | [facility] | | metastasis from | | | | and Healing, | | kidney to other | | | | Building 2 | | site, left (HCC) | | | | [facility] [place] | | | | | | [address] | | | | | | [phone] | | | +--------+------+ + + + [...] MARTIN TOTAL,ALK | | | site, left ([facility]) | | | PHOS,ALB,PROT TOTAL) | | [...] | | | | | site, left ([facility]) | | + +--------+ + + + [...] SERVICES, | | | | | | [facility] | | | | | | [...] | + + + + + | [facility] | [address] | [place] [address] | | | SERVICES, [facility] | | | | | HEALTH [...] [facility] | [address] | [place] [address] | | | SERVICES, [facility] | | | | | HEALTH [...] [facility] | [address] | [place] [address] | | | SERVICES, CORE | PARK [...] [facility] | [address] | [place] [address] | | | DWIGHT MARTINEZ | MELBA [...] | | | LABORATORY | | | LITHUANIAN | | | SERVICES, | | | [...] MDRD equation recommended by the National | [facility] | | Kidney Disease [...] + + + + + | [facility] | [address] | [place] [address] | | | [facility] | | | | | HEALTH + HEALING | | | | + + + + + documented in this encounter Visit Diagnoses + + | Diagnosis | + + | Kidney cancer, primary, 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
--- OUTSIDE RECORDS SUMMARY | ~2020-06-29 | XMS | Encounter Summary ---
Demographics + + + | Address | [address] | | | [place] [address] | + + + | Home Phone [...] Team Providers + +------+ + | Care Instrument Fitter Name | Role | Phone | + [...] | | | carcinoma of | [place] [address] | | | | | left kidney | [place] | Center for | | | | | ([facility]) | Ct | Health and | | | | | Procedures | [place], | Healing, | | | | | CT CHEST, | [place] | Building [address], | | | | | ABDOMEN AND | [address] | 3rd Floor | | | | | PELVIS W IV | Phone: | [place], [place] | | | | | [address] | [phone] | [address] | | | | | CAT SCAN OF | Fax: | Phone: | | | | | CHEST | [phone] | [phone] | | | | | CONTRAST CT | | Fax: | | | | | CT | | [phone] | | | | | ABDOMEN&PELV | [...] | Radiology | Diagnoses | Vuky, | Stark | | | | | Renal cell | [place], | [facility] & | | | | | carcinoma of | [place] [address] | [employer] | | | | | left kidney | [place] | [address] | | | | | (HCC) | Ct | [facility] | | | | | Procedures | [place], | [facility] | | | | | CT CHEST, | [place] | [place], [place] | | | | | ABDOMEN AND | [address] | [address] | | | | | PELVIS W IV | Phone: | Phone: | | | | | CONTRAST | [phone] | [phone] | | | | | | Fax: | | | | | | | [phone] | | + +--------+ + + + [...] | | | carcinoma of | [place] [address] | [address] | | | | | left kidney | [facility] | Center for | | | | | ([facility]) | Ct | Health and | | | | | Procedures | [place], | Healing, | | | | | CT CHEST, | [place] | Building 1, | | | | | ABDOMEN AND | [address] | 3rd Floor | | | | | PELVIS W IV | Phone: | [place], [place] | | | | | [address] | [phone] | [address] | | | | | CAT SCAN OF | Fax: | Phone: | | | | | CHEST | [phone] | [phone] | | | | | CONTRAST CT | | Fax: | | | | | CT | | [phone] | | | | | ABDOMEN&PELV | [...] | 2020 | Encounter | Lab at [facility] [address] | [address] | | | | | [facility] | [address] | | | | | Health and [facility], | [place], [place] | | | | | [place] [address], [facility] | [address] | | | | | Floor [place], [place] | [phone] | | | | | [address] | | | | | | [phone] | | | +--------+ + + + [...]
--- OUTSIDE RECORDS SUMMARY | ~2020-06-29 | XMS | Encounter Summary ---
Demographics + + + | Address | [address] | | | [place] [address] | + + + | Home Phone [...] Team Providers + +------+ + | Care Craft Coordinator Name | Role | Phone | + +------+ + | Lissette Martinez PA-C | PCP | | + +------+ + Encounter Details +--------+ + + + + | Date | Type | Department | Care Team | Description | +--------+ + + + + | 12/25/ | Pharmacy | Outpatient Retail | | | | 2019 | Visit | Clinic Pharmacy | | | | | | [address] | | | | | | [place], [place] | | | | | | [address] | | | | | | [phone] | | | +--------+ + + + [...]
--- OUTSIDE RECORDS SUMMARY | ~2020-06-29 | XMS | Encounter Summary ---
Demographics + + + | Address | [address] | | | [place] [address] | + + + | Home Phone [...] Team Providers + +------+ + | Care Security And Compliance Project Manager Name | Role | Phone | + +------+ + | Lissette Martinez PA-C | PCP | | + +------+ + Encounter Details +--------+ + + + + | Date | Type | Department | Care Team | Description | +--------+ + + + + | 11/22/ | Procedure | Diagnostic Imaging | | | | 2019 | Pass | Services at [facility] | | | | | | [address] | | | | | | [place] | | | | | | [address] | | | | | | [place], [place] | | | | | | [address] | | | | | | [phone] | | | +--------+ + + + [...]
--- OUTSIDE RECORDS SUMMARY | ~2020-06-29 | XMS | Encounter Summary ---
Demographics + + + | Address | [address] | | | [place] [address] | + + + | Home Phone [...] Team Providers + +------+ + | Care Wireless Development Manager Name | Role | Phone | [...] | | Clinics at S | [place] [address] [address] | | | | | [place] [address] | | | | | [facility] for | [place], [place] | | | | | Health and Healing, | [address] | | | | | Building 2 | [phone] | | | | | [place], [place] | | | | | | [address] | | | | | | [phone] | | | +--------+ + + + [...] RN - 11/01/2019 2:33 PM PSTCall [facility]. Confirmed rx is for levothyroxine 175 mcg tab daily. elephone Encounter - Belem Ovalles RN - 11/01/2019 10:07 AM PSTRouted to [facility] - renal cell [place] patient. elephone Encounter - Irene Graham - 11/01/2019 9:40 AM PSTGener al Message: What is your request today?: Herbert ([facility]) called with a question on [...]
--- OUTSIDE RECORDS SUMMARY | ~2020-06-29 | XMS | Encounter Summary ---
Demographics + + + | Address | [address] | | | [place] [address] | + + + | Home Phone | | + + + | Preferred Language | Unknown | + + + | Marital Status | | + + + | Advent Affiliation | 1013 | + + + | Race | or Other | + + + | Ethnic Group | Not or | + + + Author + + + | Author | [facility] | | | and Shahram | + + + | Organization | [facility] | | | [...] Team Providers + +------+ + | Care Branch Specialist Name | Role | Phone | [...] | | | ONCOLOGY CLINIC [address] | [place], [place] | | | | | [address] [facility] | [address] | | | | | [place] [address] | | | | | | [phone] | | | +--------+ + + + [...] left kidney (HCC) C64.2 189.0 Treatment Dates: Tila Bety Agapito was treated in our clinic [...] ipilimumab/nivolulmab on trail every 3 weeks at [facility]. Assessment: Tila Altman completed the planned course of course of external beam radiation therapy without any unexpected complications or breaks. Treatment tolerance: good. Disease response to treatment: Disease regression and/or disease related symptom improveme nt. Disposition: 1. Follow-up in our clinic: open as needed 2. Follow-up with medical oncology at [facility]. Coordination of care will be arranged between providers for future visits. Tila Altman was encouraged to call our clinic with any further questions or concerns. Thank you for allowing me to participate in her care. If you should have any questions rega rding this treatment summary, please do not hesitate to contact me. Aileen Denson MD Radiation Oncologist Department of Radiation Oncology [facility] documented in this encounter Plan of Treatment Not on filedocumented as of this encounter Visit Diagnoses + + | Diagnosis | + + | 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
--- OUTSIDE RECORDS SUMMARY | ~2020-06-29 | XMS | Encounter Summary ---
Demographics + + + | Address | [address] | | | [place] [address] | + + + | Home Phone | | + + + | Preferred Language | Unknown | + + + | Marital Status | Single | + + + | Bahai Affiliation | CHR | + + + [...] Team Providers + +------+ + | Care Materials Branch Chief Name | Role | Phone | + [...] | | | | | carcinoma, | [address] | [address] | | | | | unspecified | [address] | [facility] | | | | | laterality | [address] | [address] [place], | | | | | ([facility]) | [place] | [place] | | | | | Procedures | [address] | [address] | | | | | SIMULATION | Phone: | Phone: | | | | | IMAGING | [phone] | [phone] | | | | | SBRT | Fax: | Fax: | | | | | | [phone] | [phone] | +--------+--------+ + + + + Reason [...] | | | | | carcinoma, | [address] | [address] [facility] | | | | | unspecified | [address] | [facility] | | | | | laterality | [address] | [address] [place], | | | | | ([facility]) | [place] | [place] | | | | | Procedures | [address] | [address] | | | | | SIMULATION | Phone: | Phone: | | | | | IMAGING | [phone] | [phone] | | | | | SBRT | Fax: | Fax: | | | | | | [phone] | [phone] | +--------+--------+ + + + + Encounter Details +--------+ + + + + | Date | Type | Department | Care Team | Description | +--------+ + + + + | 02/26/ | Hospital | Radiation Oncology | | | | 2020 | Encounter | at [facility] [address] | | | | | [address] | | | | | | [address] | | | | | | [place], [place] | | | | | | [address] | | | | | | [phone] | | | +--------+ + + + [...]
--- OUTSIDE RECORDS SUMMARY | ~2020-06-29 | XMS | Encounter Summary ---
Demographics + + + | Address | [address] | | | [place] [address] | + + + | Home Phone [...] Team Providers + +------+ + | Care Simulation Analyst Name | Role | Phone | [...] | | 2020 | Support | at [facility] [address] | [address] | | | | Staff | [address] | Rd [place], [place] | | | | | [place], [facility] floor | [address] | | | | | [place], [place] | | | | | | [address] | | | | | | [phone] | | | +--------+ + + + [...]
--- OUTSIDE RECORDS SUMMARY | ~2020-06-29 | XMS | Encounter Summary ---
Demographics + + + | Address | [address] | | | [place] [address] | + + + | Home Phone [...] Providers + +------+ + | Care Sock Mender Name | Role | Phone | + +------+ + | Lissette Martinez PA-C | PCP | | + +------+ + Encounter Details +--------+ + + + + | Date | Type | Department | Care Team | Description | +--------+ + + + + | 03/26/ | Pharmacy | Pharmacy @ [facility] | | | | 2019 | Visit | [address] | | | | | | [address] Mailcode: | | | | | | [facility] | | | | | | and Healing, | | | | | | [address] | | | | | | [place], [place] | | | | | | [address] | | | +--------+ + + + [...]
--- OUTSIDE RECORDS SUMMARY | ~2020-06-29 | XMS | Encounter Summary ---
Demographics + + + | Address | [address] | | | [place] [address] | + + + | Home Phone [...] Team Providers + +------+ + | Care Tent Assembler Name | Role | Phone | + +------+ + | Lissette Martinez PA-C | PCP | | + +------+ + Encounter Details +--------+ + + + + | Date | Type | Department | Care Team | Description | +--------+ + + + + | 08/22/ | Pharmacy | Pharmacy @ [facility] | | | | 2019 | Visit | [address] | | | | | | [address] Mailcode: | | | | | | [facility] | | | | | | and Healing, | | | | | | [address] | | | | | | [place], [place] | | | | | | [address] | | | +--------+ + + + [...]
--- OUTSIDE RECORDS SUMMARY | ~2020-06-29 | XMS | Encounter Summary ---
Demographics + + + | Address | [address] | | | [place] [address] | + + + | Home Phone [...] Team Providers + +------+ + | Care Zipper Slide Attacher Name | Role | Phone | + [...] | 2019 | | Nate Correia | [address] | | | | | [address] | | | | | [place], [place] | [place], [place] | | | | | [address] | [address] | | | | | [phone] | [phone] | | | | | | | [...]
--- OUTSIDE RECORDS SUMMARY | ~2020-06-29 | XMS | Encounter Summary ---
Demographics + + + | Address | [address] | | | [place] [address] | + + + | Home Phone [...] Team Providers + +------+ + | Care Carburizing Furnace Operator Name | Role | Phone | [...] | | | | | metastases | [address] | [address] | | | | | ([facility], [facility]IN [facility]) | Angelito Rosa | [address] | | | | | Procedures | [address] | [address] [place], | | | | | SIMULATION | [place] | [place] | | | | | IMAGING | [address] | [address] | | | | | | Phone: | Phone: | | | | | | [phone] | [phone] | | | | | | Fax: | Fax: | | | | | | [phone] | [phone] | +--------+--------+ + + + + Encounter Details +--------+ + + + + | Date | Type | Department | Care Team | Description | +--------+ + + + + | 03/06/ | Transcribe | Radiation Oncology | Antwon Beard, | | | 2020 | Orders | at [facility] [address] | [address] [facility] | | | | | [address] | [facility] | | | | | [place], [facility] | [place], [place] | | | | | [place], [place] | [address] | | | | | [address] | [phone] | | | | | [phone] | | | +--------+ + + + [...]
--- OUTSIDE RECORDS SUMMARY | ~2020-06-29 | XMS | Encounter Summary ---
Demographics + + + | Address | [address] | | | [place] [address] | + + + | Home Phone [...] Providers + +------+ + | Care Cisco Unified Communications Engineer Name | Role | Phone | [...] Description | +--------+--------+ + + + | 12/25/ | Refill | [facility] | Yeni, | Refill Request | | 2019 | | at [facility] | DO [address] | | | | | [address] | [address] | | | | | [address] | Rd [place], [place] | | | | | [place], [address] [place] [address] | [address] | | | | | [place], [place] | [phone] | | | | | [address] | | | | | | [phone] | | | +--------+--------+ + + + [...]
--- OUTSIDE RECORDS SUMMARY | ~2020-06-29 | XMS | Encounter Summary ---
Demographics + + + | Address | [address] | | | [place] [address] | + + + | Home Phone [...] Team Providers + +------+ + | Care Dicer Machine Operator Name | Role | Phone | + +------+ + | Lissette Martinez PA-C | PCP | | + +------+ + Encounter Details +--------+ + + + + | Date | Type | Department | Care Team | Description | +--------+ + + + + | 11/01/ | Pharmacy | Pharmacy @ [facility] | | | | 2019 | Visit | [address] | | | | | | [address] Mailcode: | | | | | | [facility] | | | | | | and Healing, | | | | | | [address] | | | | | | [place], [place] | | | | | | [address] | | | +--------+ + + + [...]
--- OUTSIDE RECORDS SUMMARY | ~2020-06-29 | XMS | Encounter Summary ---
Demographics + + + | Address | [address] | | | [place] [address] | + + + | Home Phone [...] Team Providers + +------+ + | Care Buckle Assembler Name | Role | Phone | + +------+ + | Lisestte Martinez PA-C | PCP | | + +------+ + Encounter Details +--------+ + + + + | Date | Type | Department | Care Team | Description | +--------+ + + + + | 11/22/ | Procedure | Diagnostic Imaging | | | | 2019 | Pass | Services at [facility] | | | | | | [address] | | | | | | Digna REID | | | | | | [address] | | | | | | [place], [place] | | | | | | [address] | | | | | | [phone] | | | +--------+ + + + [...]
--- OUTSIDE RECORDS SUMMARY | ~2020-06-29 | XMS | Encounter Summary ---
Demographics + + + | Address | [address] | | | [place] [address] | + + + | Home Phone [...] Team Providers + +------+ + | Care English Language Learner Tutor Name | Role | Phone | + +------+ + | Lissette Martinez PA-C | PCP | | + +------+ + Reason for Visit + +--------+ + | Reason | Onset | Comments | | | Date | | + +--------+ + | Refill Request | 01/22/ | | | | 2020 | | + +--------+ + Encounter Details +--------+--------+ + + + | Date | Type | Department | Care Team | Description | +--------+--------+ + + + | 01/22/ | Refill | [facility] | Lissette Jones, | Refill Request | | 2020 | | Clinics at S | [place] [address] | | | | | [address] | | | | | [facility] for | [place], [place] | | | | | Health and Healing, | [address] | | | | | [address] | [phone] | | | | | [place], [place] | | | | | | [address] | | | | | | [phone] | | | +--------+--------+ + + + [...] Telephone Encounter - Ariana Garcia MA - 01/24/2020 8:18 AM PDTFormatting of this not e might [...] copied below: Date and Time Department Ordering/Authorizing 12/26/2019 2:16 PM [facility] Primary Care at [facility] Laurel Morales MD Outpatient Medication Detail Disp Refills enoxaparin 80 mg/0.8 mL subcutaneous syringe 48 mL 0 Sig: Inject 0.8 mL under the skin (SUBC) every twelve hours. Indications: anticoagulation t reatment Sent to pharmacy as: enoxaparin 80 mg/0.8 mL subcutaneous syringe (LOVENOX) Class: eRx Route: subcutaneous Order: [id number] Per [facility] policy, routing encounter to [facility] for review and approval. elephone Encounter - Anai Jimenez - 01/23/2020 10:44 AM PDTRx Refill: Routing encounter to [facility] for proce ssing.. Pharmacy Name: [facility] Phone #: [phone] -->MA : Please review prescription refill request. Thank you. documented in this encount er Plan of Treatment Not on filedocumented as of this encounter Visit Diagnoses Not on filedocumented in this encounter"
--- OUTSIDE RECORDS SUMMARY | ~2020-06-29 | XMS | Encounter Summary ---
Demographics + + + | Address | [address] | | | [place] [address] | + + + | Home Phone | | + + + | Preferred Language | Unknown | + + + | Marital Status | | + + + | Mosque Affiliation | 1013 | + + + | Race | or Other | + + + | Ethnic Group | Not or | + + + Author + + + | Author | [facility] | | | and Shahram | + + + | Organization | [facility] | | [...] Team Providers + +------+ + | Care Golf Course Mechanic Name | Role | Phone | [...] + + | 12/21/ | Hospital | [facility] | Aileen Denson | 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
--- OUTSIDE RECORDS SUMMARY | ~2020-06-29 | XMS | Encounter Summary ---
Demographics + + + | Address | [address] | | | [place] [address] | + + + | Home Phone | | + + + | Preferred Language | Unknown | + + + | Marital Status | | + + + | Spiritism Affiliation | 1013 | + + + | Race | or Other | + + + | Ethnic Group | Not or | + + + Author + + + | Author | [facility] | | | and Shahram | + + + | Organization | [facility] | | | and Marcana [...] Team Providers + +------+ + | Care Glued Wood Tester Name | Role | Phone | [...] W | | | | | | [place], | | | | | | [place] [address] | | | | | | [phone] | | | +--------+ + + + [...] Wallis OT - 12/27/2019 11:33 AM [facility] [address] [place] [address] Oncology Rehab Screening Date: 12/27/2019 Patient Information [...] LE edema when appropriate. Patient lives in [place]; could receive tx at [facility]. Patient is agreeable to this plan. [...]
--- OUTSIDE RECORDS SUMMARY | ~2020-06-29 | XMS | Encounter Summary ---
Demographics + + + | Address | [address] | | | [place] [address] | + + + | Home Phone [...] Team Providers + +------+ + | Care Cement Finisher Apprentice Name | Role | Phone | + +------+ + | Lissette Martinez PA-C | PCP | | + +------+ + Reason for Visit + +--------+ + | Reason | Onset | Comments | | | Date | | + +--------+ + | Lab Results | 01/08/ | [facility] | | | 2020 | | + +--------+ + Encounter Details +--------+ + + + + | Date | Type | Department | Care Team | Description | +--------+ + + + + | 01/08/ | Documentati | NON-[facility] | Yeni, | Lab Results | | 2020 | on | Department | [address] | ([facility]) | | | | | [address] [facility] | | | | | | Rd [place], [place] | | | | | | [address] | | | | | | [phone] | | | | | | | [...]
--- OUTSIDE RECORDS SUMMARY | ~2020-06-29 | XMS | Encounter Summary ---
Demographics + + + | Address | [address] | | | [place] [address] | + + + | Home Phone [...] Author + + + | Author | [facility] | | | and Shahram | + + + | Organization | [facility] [...] Team Providers + +------+ + | Care Granite Sandblaster Apprentice Name | Role | Phone | [...] | | | [address] [place] | [place] [address] | | | | | [place] [address] | | | | | | [phone] | | | +--------+ + + + [...]
--- OUTSIDE RECORDS SUMMARY | ~2020-06-29 | XMS | Encounter Summary ---
Demographics + + + | Address | [address] | | | [place] [address] | + + + | Home Phone [...] Team Providers + +------+ + | Care Thread Twister Name | Role | Phone | + +------+ + | Lissette Martinez PA-C | PCP | | + +------+ + Reason for Visit Chemotherapy (Routine) + +---------+ + + + [...] | | | carcinoma of | [place] [address] | [address] [address] | | | | | left kidney | [address] | | | | | (HCC) | Ct | Center for | | | | | Procedures | [facility] | [facility] and | | | | | MD INJ | [place] | Healing, | | | | | NIVOLUMAB 1 | [address] | [address] | | | | | MG MD | Phone: | [place], [place] | | | | | CHM,IV | [phone] | [address] | | | | | INFSN,1 HR | Fax: | Phone: | | | | | MD CHM,IV | [phone] | [phone] | | | | | INFSN,ADDL | | Fax: | | | | | HR | | [phone] | | | | | nivolumab | [...] + + | 03/12/ | Hospital | [facility] | [address] | | | 2020 | Encounter | Clinics at S | Ave [place], [place] | | | | | [address] | [address] | | | | | [address] [facility] for | | | | | | Health and Healing, | | | | | | Building 2 | | | | | | [place], [place] | | | | | | [address] | | | | | | [phone] | | | +--------+ + + + [...] capsule by | 30 | 0 | 12/24/20 | | | oral capsule,delayed | mouth [...]
--- OUTSIDE RECORDS SUMMARY | ~2020-06-29 | XMS | Encounter Summary ---
Demographics + + + | Address | [address] | | | [place] [address] | + + + | Home Phone [...] Team Providers + +------+ + | Care Cartridge Assembling Machine Adjuster Name | Role | Phone [...] Authorized | | Radiology | Diagnoses | Chirag, | External | | | | | Brain | Antwon Aggarwal MD | Order | | | | | metastases | [address] | | | | | | (HCC) | [place] | | | | | | Procedures | [address] | | | | | | MRI BRAIN | [place], [place] | | | | | | TUMOR | [address] | | | | | | EVALUATION | Phone: | | | | | | WWO CONTRAST | [phone] | | | | | | | Fax: | | | | | | | [phone] | | + +--------+ + + + + Reason for Visit + +--------+ + | Reason | Onset | Comments | | | Date | | + +--------+ + | On Treatment Visit | | | | (OTV) | | | + +--------+ + | On Treatment Visit | 03/07/ | | | (OTV) | 2020 | | + +--------+ + Encounter Details +--------+---------+ + + + | Date | Type | Department | Care Team | Description | +--------+---------+ + + + | 03/07/ | Office | Radiation Oncology | Jaboin, Antwon J, | Brain metastases | | 2020 | Visit | at [facility] [address] | [address] | (HCC) (Primary Dx); | | | | [address] | [facility] [address] | Encounter for | | | | Pavilion, 4th floor | [facility] [place] | radiotherapy | | | | [place], [place] | [address] | | | | | [address] | [phone] | | | | | [phone] | | | +--------+---------+ + + + [...] + + + | Blood Pressure | 155/80 | 03/07/2020 4:47 PM | | | | | PDT | | + + + + + | Pulse | 105 | 03/07/2020 4:47 PM | | | | | PDT | | + + + + + | Temperature | 36.5 C (97.7 F) | 03/07/2020 4:47 PM | | | | | PDT | | + + + + + | Respiratory Rate | 16 | 03/07/2020 4:47 PM | | | | | PDT | | + + + + + | Oxygen Saturation | 99% | 03/07/2020 4:47 PM | | | [...] documented as of this encounter Progress Notes Sergey Pablo MA - 03/07/2020 5:00 PM PDT Nursing Note Patient here for an On Treatment Visit. Vitals/Pain Level: BP 155/80 (BP Location: Left upper arm, Patient Position: Sitting) | Pu lse 105 | Temp 36.5 C (97.7 F) (Temporal) | Resp 16 | SpO2 99% Pain Score: Wt Readings from Last 3 Encounters: 02/13/20 91 kg (200 lb 9.6 oz) 01/09/20 94.1 kg (207 lb 6.4 oz) 11/28/19 88.6 kg (195 lb 4.8 oz) Recent Labs 02/13/20 0924 WBC 2.12* HB 9.7* HCT 32.0* PLT 145* BUN 17 CR 1.09 NA 140 K 3.9 Antwon Talbot MD - 03/07/2020 5:00 PM PDT Radiation Oncology - On Treatment Visit Note ID: [id number] y.o. female with PMHx significant for classic Hodgkin's Disease (2001; prior CHOP an d consolidative chest RT). In August of 2019 she was diagnosed with Stage IV renal cell ca rcinoma, clear cell type, with findings of a 3.8 cm left renal mass (invaion of renal vein), a lytic L2 vertebral lesion (with fracture and 50% height loss) and multiple hepatic metast ases. She presented with a newly diagnosed single LEFT frontal brain metastasis which we shawn l treat with SRS to 15 Gy on 03/07/20. She is here today during treatment for an on treatment visit. Planned Total RT Dose: 15 Gy. Current Fraction: 1 of 1. Concurrent Chemotherapy: Nivo + Ipi SUBJECTIVE: Doing well today. OBJECTIVE: Vital Signs: There were no vitals taken for this visit. Pain Score: Wt Readings from Last 3 Encounters: 02/13/20 91 kg (200 lb 9.6 oz) 01/09/20 94.1 kg (207 lb 6.4 oz) 11/28/19 88.6 kg (195 lb 4.8 oz) Tila Altman's mode of transportation is ambulatory. Skin: no erythema. LABS: Recent Labs 12/12/19 0908 01/09/20 0849 02/13/20 0924 WBC 2.70* 2.22* 2.12* RBC 2.83* 2.58* 3.20* HB 8.2* 7.9* 9.7* HCT 27.7* 26.5* 32.0* PLT 224 127* 145* NEUTROPERC 67.8 69.3 76.4* LYMPHPERC 12.6* 7.7* 8.0* MONOPERC 10.0* 12.6* 9.4* BASOPERC 1.1 0.9 1.9 EOSPERC 8.1* 9.0* 3.8* Recent Labs 12/12/19 0908 01/09/20 0849 02/13/20 0924 NA 142 142 140 K 3.6 3.8 3.9 CL 110* 107 106 BICARB 22 24 24 BUN 17 14 17 CR 1.09 0.85 1.09 GLU 82 94 92 CA 8.1* 8.2* 8.4* AST 36 38 60* ALT 13 15 25 AP 89 109* 161* TBILI 1.0 0.8 1.0 TP 5.7* 6.1* 7.0 ALB 2.1* 2.4* 3.1* ASSESSMENT/PLAN: Tolerated treatment today. The patient's chart and films were reviewed. Return in 6 weeks for MRI brain Hold onto mask, and re-Tx to follow. I, Rosibel William, am functioning as a scribe for Dr. Antwon Beard MD at 8:31 AM on 03/07/20 20. I prepared the chart for today s visit. I have reviewed and verified the above scribed note of my visit with this patient as report ed by Rosibel William. Atnwon Beard MD RADIATION ONCOLOGY AT [address], 4th Floor [place] [phone] documented in this en counter Plan of Treatment + +---------+--------+ + + | Name | Type | Priori | Associated Diagnoses | Order Schedule | | | | ty | | | + +---------+--------+ + + | MRI BRAIN TUMOR | Imaging | Routin | Brain metastases | Expected: 04/21/2020 | | EVALUATION WWO | | e | (HCC) | (Approximate), | | CONTRAST | | | | Expires: 04/07/2021 | + +---------+--------+ + + documented as [...] + + documented in this encounter Results OUTSIDE RADIOLOGY - MRI (04/19/2020) + + + | Narrative | Performed At | + + + | | | + + + documented in this encounter Visit Diagnoses + + | Diagnosis | + + | Brain metastases (HCC) - Primary Secondary malignant neoplasm of brain and spinal | | cord | + + | Encounter for radiotherapy Radiotherapy | + + documented in this encounter"
--- OUTSIDE RECORDS SUMMARY | ~2020-06-29 | XMS | Encounter Summary ---
Demographics + + + | Address | [address] | | | [place] [address] | + + + | Home Phone [...] Team Providers + +------+ + | Care Mission Manager Name | Role | Phone | + +------+ + | Lissette Martinez PA-C | PCP | | + +------+ + Encounter Details +--------+ + + + + | Date | Type | Department | Care Team | Description | +--------+ + + + + | 08/22/ | Pharmacy | Pharmacy @ [facility] | | | | 2019 | Visit | [address] | | | | | | [address] Mailcode: | | | | | | [facility] | | | | | | and Healing, | | | | | | [address] 2 | | | | | | [place], [place] | | | | | | [address] | | | +--------+ + + + [...]
--- OUTSIDE RECORDS SUMMARY | ~2020-06-29 | XMS | Encounter Summary ---
Demographics + + + | Address | [address] | | | [place] [address] | + + + | Home Phone [...] + + + | Author | [facility] | + + + | Organization | [facility] | + + + | Address | Unknown | + + + | Phone | Unavailable | + + + Support + + +---------+ + | Name | Relationship | Address | Phone | + + +---------+ + | William Talavera | ECON | Unknown | | + + +---------+ + Care Team Providers + +------+ + | Care Board Handler Name | Role | Phone | [...] | 03/12/ | Clinical | Laboratory at [facility] | | Lab Draw | | 2020 | Support | [address] | | | | | Staff | [facility] | | | | | | and Healing, | | | | | | [address] | | | | | | [place], [place] | | | | | | [address] | | | | | | [phone] | | | +--------+ + + + [...] | | | | PDT | kidney ([facility]) | results section. | + +--------+ + + + | [facility] - COMPLETE | Routin | 03/12/2020 | Renal cell | Results for this | | METABOLIC SET | e | 9:13 AM | carcinoma of left | procedure are in the | | | | PDT | kidney ([facility]) | results section. | + +--------+ + + + | FREE T4 | Routin | 03/12/2020 | Renal cell | Results for this | | | e | 9:13 AM | carcinoma of left | procedure are in the | | | | PDT | kidney ([facility]) | results section. | + +--------+ [...] | + + + + + | [facility] | [address] | [place] [address] | | | SERVICES, CORE | PARK [...] [facility] | [address] | [place] [address] | | | SERVICES, CORE | MELBA [...] SERVICES, | | | | | | [facility] | | | | | | [...] | | | LABORATORY | | | ENGLISH | | | SERVICES, | | | [...] MDRD equation recommended by the National | [facility] | | Kidney Disease Education Program. [...] | + + + + + | [facility] | [address] | [place] [address] | | | SERVICES, [facility] | | | | | HEALTH [...] | included in the neutrophil count. | [facility] | | | HEALTH + | | | HEALING | + + + + + + + + | Performing | Address | City/State/Zipcode | Phone Number | | Organization | | | | + + + + + | [facility] | [address] | [place] [address] | | | [facility], [facility] | | | | | HEALTH + HEALING | | | | + + + + + documented in this encounter Visit Diagnoses + + | Diagnosis | + + | 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
--- OUTSIDE RECORDS SUMMARY | ~2020-06-29 | XMS | Encounter Summary ---
Demographics + + + | Address | [address] | | | [place] [address] | + + + | Home Phone [...] Team Providers + +------+ + | Care Sound Engineer Name | Role | Phone | + +------+ + | Lissette Martinez PA-C | PCP | | + +------+ + Encounter Details +--------+ + + + + | Date | Type | Department | Care Team | Description | +--------+ + + + + | 08/22/ | Therapeutic Consultant | [facility] | Lissette Jones, | Kidney cancer, | | 2019 | | Clinics at S | [place] [address] | primary, with | | | | [address] | metastasis from | | | | [facility] for | [facility] [place] | kidney to other | | | | Health and Healing, | [address] | site, left (HCC) | | | | [address] | [phone] | (Primary Dx) | | | | [place], [place] | | | | | | [address] | | | | | | [phone] | | | +--------+ + + + [...] 3:46 PM PSTCbc wth documented in this [facility] Plan of Treatment + +------+--------+ + + [...] clinically indicated. | SERVICES, | | | [facility] | | | HEALTH + | | | HEALING | + + + + + + + + | Performing | Address | City/State/Zipcode | Phone Number | | Organization | | | | + + + + + | [facility] | [address] | [place] [address] | | | [facility] | | | | | [...] | + + + + + | [facility] | [address] | [place] [address] | | | SERVICES, CORE | PARK [...] [facility] | [address] | [place] [address] | | | SERVICES, CORE | MELBA [...] SERVICES, | | | | | | [facility] | | | | | | [...] | | | LABORATORY | | | [facility] | | | SERVICES, | | | [...] MDRD equation recommended by the National | [facility] | | Kidney Disease Education Program. Estimated [...] | + + + + + | [facility] | [address] | [place] [address] | | | [facility] | | | | | HEALTH + HEALING | | | | + + + + + documented in this encounter Visit Diagnoses + + | Diagnosis | + + | Kidney cancer, primary, 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
--- OUTSIDE RECORDS SUMMARY | ~2020-06-29 | XMS | Encounter Summary ---
Demographics + + + | Address | [address] | | | [place] [address] | + + + | Home Phone [...] Team Providers + +------+ + | Care Framing Mill Operator Helper Name | Role | Phone | [...] Pharmacy | | | | | | [address] | | | | | | [place], [place] | | | | | | [address] | | | | | | [phone] | | | +--------+ + + + [...]
--- OUTSIDE RECORDS SUMMARY | ~2020-06-29 | XMS | Encounter Summary ---
Demographics + + + | Address | [address] | | | [place] [address] | + + + | Home Phone [...] Team Providers + +------+ + | Care Bottling Room Worker Name | Role | Phone | [...]
--- OUTSIDE RECORDS SUMMARY | ~2020-06-29 | XMS | Encounter Summary ---
Demographics + + + | Address | [address] | | | [place] [address] | + + + | Home Phone [...] Team Providers + +------+ + | Care Food Photographer Name | Role | Phone | + [...] | [address] | [facility] [place] | | | | | [place] for [facility] | [address] | | | | | and Healing, | [phone] | | | | | [address] | | | | | | [place], [place] | | | | | | [address] | | | | | | [phone] | | | +--------+ + + + [...]
--- OUTSIDE RECORDS SUMMARY | ~2020-06-29 | XMS | Encounter Summary ---
Demographics + + + | Address | [address] | | | [place] [address] | + + + | Home Phone [...] Team Providers + +------+ + | Care Ship Superintendent Name | Role | Phone | [...]
--- OUTSIDE RECORDS SUMMARY | ~2020-06-29 | XMS | Encounter Summary ---
Demographics + + + | Address | [address] | | | [place] [address] | + + + | Home Phone | | + + + | Preferred Language | Unknown | + + + | Marital Status | | + + + | Buddhism Affiliation | 1013 | + + + | Race | or Other | + + + | Ethnic Group | Not or | + + + Author + + + | Author | [facility] | | | and Shahram | + + + | Organization | [facility] [...] Team Providers + +------+ + | Care Analytics Consultant Name | Role | Phone | + +------+ + PCP | Unavailable | + +------+ + Encounter Details +--------+ + + + + | Date | Type | Department | Care Team | Description | +--------+ + + + + | 07/17/ | [facility] | [facility] | Dick Yan | | | 1999 | Encounter | MED CTR GENERIC OP | MD Jodie | | | | | CONV DEPT [address] | | | | | | [place], | | | | | | [place] [address] | | | | | | [phone] | | | +--------+ + + + [...]
--- OUTSIDE RECORDS SUMMARY | ~2020-06-29 | XMS | Encounter Summary ---
Demographics + + + | Address | [address] | | | [place] [address] | + + + | Home Phone [...] Providers + +------+ + | Care Manager Psychiatry Name | Role | Phone | + [...] | | | | | Digna [place]anches [place], | | | | | | [place] [address] | | | +--------+--------+ + + + [...]
--- OUTSIDE RECORDS SUMMARY | ~2020-06-29 | XMS | Encounter Summary ---
Demographics + + + | Address | [address] | | | [place] [address] | + + + | Home Phone [...] Author + + + | Author | [facility] | | | and Shahram | + + + | Organization | [facility] | | | and [...] Team Providers + +------+ + | Care Harbor Engineer Name | Role | Phone | + +------+ + PCP | Unavailable | + +------+ + Encounter Details +--------+ + + + + | Date | Type | Department | Care Team | Description | +--------+ + + + + | 10/31/ | Hospital | [facility] | | | | 2004 - | Encounter | MED CTR GENERIC OP | | | | | | CONV DEPT [address] | | | | 01/29/ | | [place], | | | | 2004 | | [place] [address] | | | | | | [phone] | | | +--------+ + + + [...]
--- OUTSIDE RECORDS SUMMARY | ~2020-06-29 | XMS | Encounter Summary ---
Demographics + + + | Address | [address] | | | [place] [address] | + + + | Home Phone [...] Team Providers + +------+ + | Care Election Judge Name | Role | Phone | + [...] | | | | MRI BRAIN | [place], [place] | | | | | | TUMOR | [address] | | | | | | EVALUATION | Phone: | | | | | | WWO CONTRAST | [phone] | | | | | | | Fax: | | | | | | | [phone] | | + +--------+ + + + [...] (HCC) (Primary Dx); | | | | [address] | [address] | Encounter for | | | | Pavilion, 4th floor | [facility], [place] | radiotherapy | | | | [place], [place] | [address] | | | | | [address] | [phone] | | | | | [phone] | | | +--------+---------+ + + + [...] William. Antwon Beard MD RADIATION ONCOLOGY AT [address] [place]e [place], 4th Floor [place] [phone] documented in this en counter Plan of [...]
--- OUTSIDE RECORDS SUMMARY | ~2020-06-29 | XMS | Encounter Summary ---
Demographics + + + | Address | [address] | | | [place] [address] | + + + | Home Phone [...] Team Providers + +------+ + | Care Dish Up Person Name | Role | Phone | [...] | | Clinics at S | [place] [address] [address] | Refill Request | | | | [facility] [address] | | | | | [facility] | [place], [place] | | | | | Health and Healing, | [address] | | | | | Building [address] | [phone] | | | | | [place], [place] | | | | | | [address] | | | | | | [phone] | | | +--------+--------+ + + + [...] routed to Dr. Jones to resign eRx. [facility] n[facility] will follow up as needed. elephone Encounter - Sara Delgadillo - 02/03/2020 9:35 AM PDTPatient calling in, states that she will be running o ut of Oxycodone 5 Mg by tomorrow morning, but she just spoke with her pharmacy, [facility], and they do not have script yet. PAS sees "Print Prescription" for medication on 01/31, so reassured patient that medication in final stages and will get urgent message to team that patient needs to fruit or nut picker prescripti on today; patient very appreciative. Routing [...] and Time Department Ordering/Authorizing 01/19/2020 9:52 AM [facility] Lissette Jones MD Outpatient Medication Detail Disp Refills oxyCODONE (immediate release) 5 mg oral tablet 60 tablet 0 Sig: Take 1 tablet by mouth every four hours as needed for breakthrough pain. Sent to pharmacy as: oxyCODONE 5 mg tablet (ROXICODONE) Class: eRx Earliest Fill Date: 01/19/2020 Route: oral Order: [id number] E-Prescribing Status: Receipt confirmed by pharmacy (01/19/2020 9:52 AM PDT) Per [facility] policy, routing encounter to [facility] for review and approval. elephone Encounter [...] category of medication [facility] Name of medication: Oxycodone Dose: 5 mg Frequency - How often are you taking it?: 4 tablets per day How much of the prescription do you have left - When will you run out?: 3 days' worth left Pharmacy the patient wants the prescription refilled at: [facility][id number] - [place], [place] - [address] [phone] Is it ok to leave a confidential [...]
--- OUTSIDE RECORDS SUMMARY | ~2020-06-29 | XMS | Encounter Summary ---
Demographics + + + | Address | [address] | | | [place] [address] | + + + | Home Phone [...] Team Providers + +------+ + | Care [employer] Name | Role | Phone | + +------+ + | Lissette Martinez PA-C | PCP | | + +------+ + Encounter Details +--------+ + + + + | Date | Type | Department | Care Team | Description | +--------+ + + + + | 06/11/ | MyChart | [facility] | Lissette Jones, | RE: Tessa Altman | | 2020 | Encounter | Clinics at S | [place] [address] | | | | | [facility] [address] | | | | | [facility] | [place], [place] | | | | | Health and Healing, | [address] | | | | | [facility] [address] | [phone] | | | | | [facility] [place] | | | | | | [address] | | | | | | [phone] | | | +--------+ + + + [...] PDTCall to patient, agreed to scheduled virtual [facility] PA on 06/18 @ 11:20 am. FYI. [...]
--- OUTSIDE RECORDS SUMMARY | ~2020-06-29 | XMS | Encounter Summary ---
Demographics + + + | Address | [address] | | | [place] [address] | + + + | Home Phone | | + + + | Preferred Language | Unknown | + + + | Marital Status | | + + + | Protestant Affiliation | 1013 | + + + | Race | or Other | + + + | Ethnic Group | Not or | + + + Author + + + | Author | [facility] | | | and Shahram | + + + | Organization | [facility] | [...] Providers + +------+ + | Care Livestock Slaughterer Name | Role | Phone | + [...] | | | | carcinoma, | [place] [address] | [place], [place] | | | | | unspecified | Phone: | [address] | | | | | laterality | [phone] | Phone: | | | | | (HCC) | Fax: | [phone] | | | | | Secondary | [phone] | Fax: | | | | | cancer of | | [phone] | | | | | bone (HCC) | | | | | | | Procedures | | | | | | | PT SAH | | | +--------+ + + + + + Encounter Details +--------+ + + + + | Date | Type | Department | Care Team | Description | +--------+ + + + + | 12/26/ | [facility] Only | [facility] | Aileen Denson | Impaired mobility | | 2019 | | MED CTR RADIATION | MD Khushboo [address] | (Primary Dx); | | | | ONCOLOGY CLINIC [address] | [place], [place] | Metastatic renal | | | | [facility] | [address] | cell carcinoma, | | | | [place] [address] | | unspecified | | | | [phone] | | laterality (HCC); | | | [...]
--- OUTSIDE RECORDS SUMMARY | ~2020-06-29 | XMS | Encounter Summary ---
Demographics + + + | Address | [address] | | | [place] [address] | + + + | Home Phone [...] Team Providers + +------+ + | Care Classification Officer Name | Role | Phone | [...]
--- OUTSIDE RECORDS SUMMARY | ~2020-06-29 | XMS | Encounter Summary ---
Demographics + + + | Address | [address] | | | [place] [address] | + + + | Home Phone [...] Team Providers + +------+ + | Care Ornamental Bronze Worker Name | Role | Phone | + +------+ + | Lissette Martinez PA-C | PCP | | + +------+ + Encounter Details +--------+ + + + + | Date | Type | Department | Care Team | Description | +--------+ + + + + | 08/24/ | Pharmacy | Pharmacy @ [facility] | | | | 2019 | Visit | [address] | | | | | | [address] Mailcode: | | | | | | [facility] | | | | | | and Healing, | | | | | | Building 2 | | | | | | [place], [place] | | | | | | [address] | | | +--------+ + + + [...]
--- OUTSIDE RECORDS SUMMARY | ~2020-06-29 | XMS | Encounter Summary ---
Demographics + + + | Address | [address] | | | [place] [address] | + + + | Home Phone [...] Team Providers + +------+ + | Care Wire Twisting Machine Operator Name | Role | Phone [...]
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
--- OUTSIDE RECORDS SUMMARY | ~2020-06-29 | XMS | Encounter Summary ---
Demographics + + + | Address | [address] | | | [place] [address] | + + + | Home Phone [...] Team Providers + +------+ + | Care Inpatient Coder Name | Role | Phone | + +------+ + | Lissette Martinez PA-C | PCP | | + +------+ + Reason for Visit + + + | Reason | Comments | + + + | Lab Draw | PIV | + + + Encounter Details +--------+ + + + + | Date | Type | Department | Care Team | Description | +--------+ + + + + | 02/12/ | Clinical | Laboratory at [facility] | | Lab Draw (PIV) | | 2020 | Support | [address] | | | | | Staff | [facility] | | | | | | and Healing, | | | | | | [address] | | | | | | [place], [place] | | | | | | [address] | | | | | | [phone] | | | +--------+ + + + [...] + documented as of this encounter Progress Odalys Mandujano RN - 02/13/2020 9:00 AM PDT22 gauge PIV placed in patient s right antecubit al space by VAT, using an IV start kit. PIV with excellent blood return. Labs drawn and sen t. PIV flushed with 10 mL NS without any problems. Sterile transparent dressing applied. Jaxson leti tolerated procedure well. documented in this encoun ter Plan of [...] + + documented in this encounter Results [facility] - COMPLETE METABOLIC SET (02/13/2020 9:24 AM PDT) + +---------+ + + + | Component | Value | Ref Range | Performed | Pathologist | | | | | At | Signature | + +---------+ + + + | GLUCOSE, | 92 [...] | | | LABORATORY | | | [place] | | | SERVICES, | | | [...] +---------+ + + + | CHLORIDE, | 106 | 97 - 108 mmol/L | [facility] [...] +---------+ + + + | CALCIUM, | 8.4 [...] +---------+ + + + | CALCIUM(ALB | 9.1 | 8.6 - 10.2 | [facility] | [...] +---------+ + + + | TOTAL | 7.0 | 6.4 - 8.2 g/dL | [facility] | | | PROTEIN, | | | LABORATORY | | | PLASMA | | | SERVICES, | | | (LAB) | | | [facility] | | | | | | HEALTH + | | | | | | HEALING | | + +---------+ + + + | ALBUMIN, | 3.1 [...] + + + | ALK PHOS | 161 (H) | 42 - 98 U/L | [facility] | | | | | | LABORATORY | | | | | | SERVICES, | | | | | | [facility] | | | | | | HE[facility] + | | | | | | HEALING | | + +---------+ + + + | AST(SGOT) | 60 (H) | <=41 U/L | [facility] | | | | | | LABORATORY | | | | | | SERVICES, | | | | | | [facility] | | | | | | HEALTH + | | | | | | HEALING | | + +---------+ + + + | ALT (SGPT) | 25 | <=60 U/L | [facility] | | [...] +---------+ + + + | GLOBULIN | 3.9 (H) | 2.3 - 3.5 gm/dL | [facility] | | | LVL | | | LABORATORY | | | | | | SERVICES, | | | | | | [facility] | | | | | | HEALTH + | | | | | | HEALING | | + +---------+ + + + | ALBUMIN/NICOLETTE | 0.8 | 0.7 - 2.8 | [facility] | [...] MDRD equation recommended by the National | [facility] | | Kidney Disease Education [...] | + + + + + | [facility] | [address] | [place] [address] | | | SERVICES, [place] [facility] | | | | | HEALTH + HEALING | | | | + + + + + CBC AND AUTO DIFF - [facility] (02/13/2020 9:24 AM PDT) + + + + + + | Component | Value | Ref Range | Performed | Pathologist | | | | | At | Signature | + + + + + + | WHITE CELL | 2.12 (L) | 3.50 - 10.80 | [facility] | | | COUNT | | K/cu mm | LABORATORY | | | | | | SERVICES, | | | | | | [facility] | | | | | | HEALTH + | | | | | | HEALING | | + + + + + + | RED CELL | 3.20 (L) | 4.00 - 5.20 | [facility] | | | COUNT | | M/cu mm | LABORATORY | | | | | | SERVICES, | | | | | | [facility] | | | | | | HEALTH + | | | | | | HEALING | | + + + + + + | HEMOGLOBIN | 9.7 (L) | 12.0 - 16.0 | [facility] | | | | | g/dL | LABORATORY | | | | | | SERVICES, | | | | | | [facility] | | | | | | [facility] + | | | | | | HEALING | | + + + + + + | HEMATOCRIT | 32.0 (L) | 36.0 - 46.0 % | [facility] | | | | | | LABORATORY | | | | | | SERVICES, | | | | | | [facility] | | | | | | [facility] + | | | | | | HEALING | | + + + + + + | MCV | 100.0 | 80.0 - 100.0 fL | [facility] | | | | | | LABORATORY | | | | | | SERVICES, | | | | | | [facility] | | | | | | HEALTH + | | | | | | HEALING | | + + + + + + | MCHC | 30.3 (L) | 32.0 - 36.0 | [facility] | | | | | g/dL | LABORATORY | | | | | | SERVICES, | | | | | | [facility] | | | | | | HEALTH + | | | | | | HEALING | | + + + + + + | RDW SD | 57.8 (H) | 35.1 - 46.3 fL | [facility] | | | | | | LABORATORY | | | | | | SERVICES, | | | | | | [facility] | | | | | | [facility] + | | | | | | HEALING | | + + + + + + | PLATELET | 145 (L) | 150 - 400 K/cu | [facility] | | | COUNT | | mm | LABORATORY | | | | | | SERVICES, | | | | | | [facility] | | | | | | HEALTH + | | | | | | HEALING | | + + + + + + | MPV | 8.8 (L) | 9.7 - 12.3 fL | [...] + + + + | NEUTROPHIL | 76.4 (H) | 50.0 - 70.0 % | [facility] | | | % | | | LABORATORY | | | | | | SERVICES, | | | | | | [facility] | | | | | | HEALTH + | | | | | | HEALING | | + + + + + + | LYMPHOCYTE | 8.0 (L) | 18.0 - 42.0 % | [...] + + + | EOS % | 3.8 (H) | 1.0 - 3.0 % | [facility] | | | | | | LABORATORY | | | | | | SERVICES, | | | | | | [facility] | | | | | | HEALTH + | | | | | | HEALING | | + + + + + + | BASO % | 1.9 | 0.0 - 2.0 % | [facility] [...] + + + + | NEUTROPHIL | 1.62 (L) | 1.80 - 7.70 | [facility] | | | # | | K/cu mm | LABORATORY | | | | | | SERVICES, | | | | | | [facility] | | | | | | HEALTH + | | | | | | HEALING | | + + + + + + | NEUTROPHIL | 1.62 (L)Comment: | 1.80 - 7.70 | [facility] | | | # Prelim | Preliminary automated | K/cu mm | LABORATORY | | | | neutrophil result. | | SERVICES, | | | | Refer to Neutrophil # | | CENTER FOR | | | | for final neutrophil | | HEALTH + | | | | result, which may differ | | HEALING | | | | from this preliminary | | | | | | value. | | | | + + [...] + + + | MONOCYTE # | 0.20 | 0.10 - 0.90 | [facility] | [...] JEANETTE OLIVAREZ | [address] | [place] [address] | | | SERVICES, [facility] | | | | | HEALTH + HEALING | | | | + + + + + documented in this encounter Visit Diagnoses + + | Diagnosis | + + | 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
--- OUTSIDE RECORDS SUMMARY | ~2020-06-29 | XMS | Encounter Summary ---
Demographics + + + | Address | [address] | | | [place] [address] | + + + | Home Phone [...] Team Providers + +------+ + | Care Electro Tech Name | Role | Phone | + [...]
--- OUTSIDE RECORDS SUMMARY | ~2020-06-29 | XMS | Encounter Summary ---
Demographics + + + | Address | [address] | | | [place] [address] | + + + | Home Phone | | + + + | Preferred Language | Unknown | + + + | Marital Status | | + + + | Jainism Affiliation | 1013 | + + + | Race | or Other | + + + | Ethnic Group | Not or | + + + Author + + + | Author | [facility] | | | and Shahram | + + + | Organization | [facility] | | | and [...] Team Providers + +------+ + | Care Quill Machine Tender Name | Role | Phone [...] | | | [address] | [place] [address] | | | | | [place] [address] | | | | | | [phone] | | | +--------+ + + + [...]
--- OUTSIDE RECORDS SUMMARY | ~2020-06-29 | XMS | Encounter Summary ---
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
--- OUTSIDE RECORDS SUMMARY | ~2020-06-29 | XMS | Encounter Summary ---
Demographics + + + | Address | [address] | | | [place] [address] | + + + | Home Phone [...] Providers + +------+ + | Care Electric Accounting Machine Operator Name | Role | Phone [...] 2019 | on | Nate Correia | [address] | | | | | [address] | | | | | [place], [place] | [facility] [place] | | | | | [address] | [address] | | | | | [phone] | | | | | | | [...] | + +---------+ + + | NON [facility] | | | | + +---------+ + + documented in this encounter Visit Diagnoses Not on filedocumented in this encounter"
--- OUTSIDE RECORDS SUMMARY | ~2020-06-29 | XMS | Encounter Summary ---
Demographics + + + | Address | [address] | | | [place] [address] | + + + | Home Phone [...] Author + + + | Author | [facility] | + + + | Organization | [facility] | + + + | Address | Unknown | + + + | Phone | Unavailable | + + + Support + + +---------+ + | Name | Relationship | Address | Phone | + + +---------+ + | William Talavera | ECON | Unknown | | + + +---------+ + Care Team Providers + +------+ + | Care Process Specialist Name | Role | Phone | [...] | | | | | [address] [facility] | | | | | | [address] [place], [place] | | | | | | [address] | | | | | | [phone] | | | | | | | [...]
--- OUTSIDE RECORDS SUMMARY | ~2020-06-29 | XMS | Encounter Summary ---
Demographics + + + | Address | [address] | | | [place] [address] | + + + | Home Phone [...] Team Providers + +------+ + | Care Hemotherapist Name | Role | Phone | + [...] | | | | MRI BRAIN | [place], [place] | | | | | | TUMOR | [address] | | | | | | EVALUATION | Phone: | | | | | | WWO CONTRAST | [phone] | | | | | | | Fax: | | | | | | | [phone] | | + +--------+ + + + [...] | | | | | carcinoma, | [address] | [address] [facility] | | | | | unspecified | [address] | [facility] | | | | | laterality | [address] | [address], | | | | | (HCC) | [place], [place] | [place] | | | | | Procedures | [address] | [address] | | | | | ME PHONE E/M | Phone: | Phone: | | | | | BY LIP | [phone] | [phone] | | | | | 11-20 MIN | Fax: | Fax: | | | | | Mod[place] 6wk | [phone] | [phone] | | | | | TelehealthOV | [...] [address] | | | | | [address] | [facility] | | | | | Juju, [facility] floor | [place], [place] | | | | | [place], [place] | [address] | | | | | [address] | [phone] | | | | | [phone] | | | +--------+ + + + [...] 03/30/2020: Received cabozantinib MRI BRAIN WWO 04/19/2020 ([facility]) COMPARISON: 02/17/2020, 08/30/2019 IMPRESSION: 1. Again, [...] Keep extra tabs on hand and call [facility] clinic with any symptoms as discussed. 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 They understand they may be resp onsible for the balance after insurance processes the claim. The visit took place via telephone with the provider located at the distant site of [facility]. T he patient stated they were located at the originating site of home and were in the state of [place] at the time of the telephone visit. [...] William. Antwon Beard MD RADIATION ONCOLOGY AT [address], [address]th [place] [address] documented in this en counter Plan of [...]
--- OUTSIDE RECORDS SUMMARY | ~2020-06-29 | XMS | Encounter Summary ---
Demographics + + + | Address | [address] | | | [place] [address] | + + + | Home Phone [...] Providers + +------+ + | Care Primary Health Organisation Manager Name | Role | Phone | [...] | neoplasm of | RADHA Curran | [address] | | | | | unspecified | [place] | [address] | | | | | kidney, | Family | [place], | | | | | except renal | Medicine | [place] [address] | | | | | pelvis | [address] | Phone: | | | | | Procedures | [address] | [phone] | | | | | [place] NEW | [place], | Fax: | | | | | PATIENT | [place] [address] | [phone] | | | | | LEVEL V MA | Phone: | | | | | | EST PATIENT | [phone] | | | | | | LEVEL V | Fax: | | | | | | | [phone] | | + +---------+ + + + + Encounter Details +--------+ + + + + | Date | Type | Department | Care Team | Description | +--------+ + + + + | 12/11/ | Telephone-S | [facility] | Lissette Otriz, | | | 2019 | cheduled | Clinics at S | [place] [address] | | | | | [facility] [address] | | | | | [facility] for | [place], [place] | | | | | Health and Healing, | [address] | | | | | Building 2 | [phone] | | | | | [place], [place] | | | | | | [address] | | | | | | [phone] | | | +--------+ + + + [...] encounter Progress Notes Lissette Ortiz MD - 12/12/2019 9:10 AM PDTFormatting of this note might be [...] unclear reason for hypotension, d/c on midodrine 08/2019MRI brain negative for metastatic disease 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 Initial CT with evidence of stable disease; she was found to be hyperthyroid, developed worsening re spiratory symptoms, CT with PE. She has been discharged on sq lovenox with the adjustment of levothyroxine. She's feeling much better except for swelling of RLE. She has RT appointment in a few weeks ROS: See HPI. Medications and allergies and pt reported vitals reviewed and updated in Epic. 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 She has a remote h/o Hodgkins s/p CHOPP and RT with resultant hypothyroidism S/p 3 cycles of ipi/nivo with thyrotoxicosis, JONO/hypotension requiring hospital admission and development of PE Will d/c ipi, resume nivo and on maintenance Thyroid- manage by endocrine PE- continue LMWH, consider switching in 3-4 weeks to apixaban (trial recently reported non inferiority with apixaban) RTC 4 weeks RT locally for spine Please see AVS for additional instructions related to this visit. Lissette Ortiz MD Time spent on the call: 15 min. The patients encounter was accomplished via a telephone call today due to COVID-19 precauti onary measures to limit the patient's unnecessary exposure. documented in this e ncounter Miscellaneous Notes Addendum Note - Lissette Ortiz MD - 12/12/2019 10:15 AM PDT Addended by: KATEY ORTIZ MD on: 12/12/2019 10:15 AM Modules accepted: Orders documented in this encounter Plan of Treatment Not on filedocumented as of this encounter Procedures + +--------+ + + + | Procedure Name | Priori | Date/Time | Associated Diagnosis | Comments | | | ty | | | | + +--------+ + + + | ADMINISTER | Routin | 12/12/2019 | | | | CHEMOTHERAPY PER | e | 10:15 AM | | | | TREATMENT PARAMETERS | | PDT | | | + +--------+ + + + documented in this encounter Visit Diagnoses Not on filedocumented in this encounter"
--- OUTSIDE RECORDS SUMMARY | ~2020-06-29 | XMS | Encounter Summary ---
Demographics + + + | Address | [address] | | | [place] [address] | + + + | Home Phone [...] Team Providers + +------+ + | Care Wool Shearer Name | Role | Phone | + +------+ + | Lissette Martinez PA-C | PCP | | + +------+ + Reason for Referral Consultation (Urgent) +--------+--------+ + + + + [...] | | | | | carcinoma, | [address] | [address] | | | | | unspecified | [address] | [place] | | | | | laterality | [address] | Rd [place], | | | | | ([facility]) | [place], [place] | [place] | | | | | Procedures | [address] | [address] | | | | | CONSULT TO | Phone: | Phone: | | | | | RADIATION | [phone] | [phone] | | | | | ONCOLOGY | Fax: | Fax: | | | | | Consult and | [phone] | [phone] | | | | | OVs | | | +--------+--------+ + + + + Consultation (Urgent) + +--------+ + + + + | Status | Reason | Specialty | Diagnoses / | Referred By | Referred To | | | | | Procedures | Contact | Contact | + +--------+ + + + + | Canceled | | Neurological | Diagnoses | Santoli, | Cetas, | | | | Surgery | Renal cell | Kwabena Nettles MD | MD Mateo | | | | | carcinoma, | [address] | [address] | | | | | unspecified | [address] | Avenue | | | | | laterality | [address] | [place], [place] | | | | | ([facility]) | [place], [place] | [address] | | | | | Procedures | [address] | Phone: | | | | | CONSULT TO | Phone: | [phone] | | | | | NEUROSURGERY | [phone] | Fax: | | | | | | Fax: | [phone] | | | | | | [phone] | | + +--------+ + + + + Diagnostic Testing (Urgent) +--------+--------+ + + + [...] cell | Kwabena Nettles MD | [address] | | | | | carcinoma, | [address] | [address] | | | | | unspecified | [address] | Center for | | | | | laterality | [address] | Health and | | | | | (HCC) | [place] | Healing, | | | | | staging | [address] | Building 1, | | | | | kidney | Phone: | 3rd Floor | | | | | cancer | [phone] | [place], [place] | | | | | Procedures | Fax: | [address] | | | | | MRI BRAIN | [phone] | Phone: | | | | | WWO CONTRAST | | [phone] | | | | | AR MRI | | Fax: | | | | | BRAIN COMBO | | [phone] | +--------+--------+ + + + + Encounter Details +--------+ + + + + | Date | Type | Department | Care Team | Description | +--------+ + + + + | 02/22/ | Coke Still Cleaner | [facility] | Kwabena Sanchez, | Renal cell | | 2020 | | [place] [place] | [address] | carcinoma, | | | | [address], | [address] | unspecified | | | | [place], [place] | [place], [place] | laterality (HCC) | | | | [address] | [address] | (Primary Dx) | | | | [phone] | [phone] | | | | | | | [...] this encounter Miscellaneous Notes Telephone Encounter - Kwabena Sanchez MD - 02/23/2020 7:48 AM PDT [email or web address] [place] [facility] [address] [place] [address], [address] [place] [address] tel [phone] fax [phone] TELEPHONE NOTE Patient: Tila Altman Date: 02/23/2020 : 1965 AGE: 54 y.o. Attending Physician: Kwabena Sanchez MD Chief Complaint: Brain metastasis Interval History: Called overnight by [facility] ED with patient on imaging having new brain metastasis. Impression: Brain metastasis Plan: Decadron started and patient discharged home from ED. MRI brain ordered. Will consult lamont rosurgery and radiation therapy. Kwabena Sanchez MD Department of Oncology/Hematology [facility] at [place] [address] [address] documented in this e ncounter Plan of Treatment Not on filedocumented as of this encounter Results MRI BRAIN WWO CONTRAST [...] necessary, edited the report. I agree with alen mireles report as now presented. | | | [...]
--- OUTSIDE RECORDS SUMMARY | ~2020-06-29 | XMS | Encounter Summary ---
Demographics + + + | Address | [address] | | | [place] [address] | + + + | Home Phone [...] Team Providers + +------+ + | Care Labeling Specialist Name | Role | Phone | [...] | | | | | carcinoma, | [address] | [address] | | | | | unspecified | [address] | [address] | | | | | laterality | [address] | Rd [place], | | | | | ([facility]) | [place], [place] | [place] | | | | | Procedures | [address] | [address] | | | | | CONSULT TO | Phone: | Phone: | | | | | RADIATION | [phone] | [phone] | | | | | ONCOLOGY | Fax: | Fax: | | | | | Consult and | [phone] | [phone] | | | | | OVs | | | +--------+--------+ + + + + Encounter Details +--------+ + + + + | Date | Type | Department | Care Team | Description | +--------+ + + + + | 02/23/ | Video/TeleH | Radiation Oncology | Antwon Beard, | | | 2020 | ealth-Sched | at [facility] [address] | [address] [facility] | | | | zbigniew | [address] | [facility] | | | | | [place], 4th floor | [place], [place] | | | | | [place], [place] | [address] | | | | | [address] | [phone] | | | | | [phone] | | | +--------+ + + + [...] 150 mcg po qD) She presented to [facility] ED on 02/22/2020 with findings of left facial weakness and se izure. She was found on contrasted CT to have the following new LEFT frontal brain metastasi s. Today Speech is still slurred. Steroids: Dex 4mg po BID Sister: James (on video visit today) MRI: scheduled for 02/26 Prior RT on back: [place] (Dianna: 10 treatments) -- Improved back symptoms, still feels soreness - but no pain Referred for evaluation for possible radiotherapy to her LEFT frontal metastasis. -- Evaluation planned later today in concert with Dr. Bustos. Pertinent Positives in ROS: right facial and leg weakness, slurred speech, back pain Prior radiation: chest RT (2001), Palliative RT ([place] to L2 vertebral body) Pacemaker: N/A The patient is being seen today in consultation for consideration of radiotherapy options. Past Medical History: Patient Active Problem List Diagnosis Date Noted Adverse drug reaction 11/24/2019 Overview Note: Checkpoint inhibitors Hyperthyroidism 11/22/2019 Hypotension, unspecified hypotension type 11/21/2019 Closed compression fracture of body of L1 vertebra (HCC) 11/21/2019 Hypothyroidism, unspecified type 11/21/2019 Renal cell carcinoma, unspecified laterality ([facility]) 11/21/2019 Hypotension 08/31/2019 Proteinuria 08/30/2019 Hematuria 08/30/2019 JONO (acute kidney injury) (HCC) 08/30/2019 Elevated blood uric acid level 08/30/2019 Normocytic anemia 08/30/2019 Leukopenia 08/30/2019 Closed compression fracture of L2 lumbar vertebra, initial encounter ([facility]) 08/25/2019 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) 08/25/2019 Hyperkalemia 08/24/2019 Hypothyroidism 08/24/2019 Compression fracture of L2 vertebra (HCC) 08/24/2019 Renal cell adenocarcinoma (HCC) 08/23/2019 Hypercalcemia of malignancy 08/23/2019 Past Medical History: Diagnosis Date Hodgkin's disease (HCC) 2001 CHOPP and radiation therapy Hypercalcemia of malignancy Hypertension Hypothyroidism Hypothyroidism Pathologic compression fracture of lumbar vertebra, initial encounter ([facility]) Renal cell carcinoma (HCC) clear cell carcinoma [...] on file Occupational History 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 She poe s family nearby ([place]) and will remain on steroids while we [...] pelayo located at the distant site of [facility]. The patient stated they were located at the [facility] site [place] and were in the state [facility] at the time of the virtual visit. T he names of all additional persons participating in the virtual visit and their roles are: N /A. I have spent a total of 35 minutes on this patient's care today. This time includes the vi rtual visit [id number] time with the patient as well as time spent reviewing patient recor ds, coordinating/communicating with care teams and documenting the patient visit. Antwon Beard MD, PhD [employer] Radiation Medicine CC: A copy of this [...]
--- OUTSIDE RECORDS SUMMARY | ~2020-06-29 | XMS | Encounter Summary ---
Demographics + + + | Address | [address] | | | [place] [address] | + + + | Home Phone [...] Team Providers + +------+ + | Care E Commerce Web Developer Name | Role | Phone [...] Pharmacy | | | | | | [address] | | | | | | [place], [place] | | | | | | [address] | | | | | | [phone] | | | +--------+ + + + [...]
--- OUTSIDE RECORDS SUMMARY | ~2020-06-29 | XMS | Encounter Summary ---
Demographics + + + | Address | [address] | | | [place] [address] | + + + | Home Phone [...] Team Providers + +------+ + | Care Student Worker Name | Role | Phone | + +------+ + | Lissette Martinez PA-C | PCP | | + +------+ + Encounter Details +--------+ + + + + | Date | Type | Department | Care Team | Description | +--------+ + + + + | 08/24/ | Supervisor Coke Handling | Hematology | Lissette Jones, | | | 2019 | | Oncology Study [address] | [address] | | | | | [address] | [address] | | | | | Mailcode: CH7M | [place], [place] | | | | | [facility] | [address] | | | | | and [place], | [phone] | | | | | [facility] | | | | | | Floor [place], [place] | | | | | | [address] | | | | | | [phone] | | | +--------+ + + + [...]
--- OUTSIDE RECORDS SUMMARY | ~2020-06-29 | XMS | Encounter Summary ---
Demographics + + + | Address | [address] | | | [place] [address] | + + + | Home Phone [...] + | Author | [facility] | | | and Shahram | + + + | Organization | [facility] | | | and Marcana [...] Team Providers + +------+ + | Care Parimutuel Ticket Cashier Name | Role | Phone | + +------+ + | Lissette Martinez | PCP | | | RADHA | | | + +------+ + Encounter Details +--------+ + + + + | Date | Type | Department | Care Team | Description | +--------+ + + + + | 12/11/ | Hospital | [facility] | Aileen Denson | | | 2020 | Encounter | MED CTR RADIATION | MD Khushboo [address] | | | | | ONCOLOGY [address] | [facility] | | | | | [facility], | [address] | | | | | [place] [address] | | | | | | [phone] | | | +--------+ + + + [...]
--- OUTSIDE RECORDS SUMMARY | ~2020-06-29 | XMS | Encounter Summary ---
Demographics + + + | Address | [address] | | | [place] [address] | + + + | Home Phone [...] Team Providers + +------+ + | Care Refining Still Operator Name | Role | Phone | [...] | | | | | carcinoma, | [address] | [address] | | | | | unspecified | [address] | [address] | | | | | laterality | [address] | Rd [place], | | | | | ([facility]) | [place], [place] | [place] | | | | | Procedures | [address] | [address] | | | | | CONSULT TO | Phone: | Phone: | | | | | RADIATION | [phone] | [phone] | | | | | ONCOLOGY | Fax: | Fax: | | | | | Consult and | [phone] | [phone] | | | | | OVs | [...] | | | | | carcinoma, | [address] | [address] | | | | | unspecified | [address] | Avenue | | | | | laterality | [address] | [place], [place] | | | | | ([facility]) | [place], [place] | [address] | | | | | Procedures | [address] | Phone: | | | | | CONSULT TO | Phone: | [phone] | | | | | NEUROSURGERY | [phone] | Fax: | | | | | | Fax: | [phone] | | | | | | [phone] | | + +--------+ + + + [...] cell | Kwabena Nettles MD | [address] | | | | | carcinoma, | [address] | [address] | | | | | unspecified | [address] | Center for | | | | | laterality | [address] | Health and | | | | | (HCC) | [place] | Healing, | | | | | staging | [address] | Building 1, | | | | | kidney | Phone: | 3rd Floor | | | | | cancer | [phone] | [place], [place] | | | | | Procedures | Fax: | [address] | | | | | MRI BRAIN | [phone] | Phone: | | | | | WWO CONTRAST | | [phone] | | | | | PA MRI | | Fax: | | | | | BRAIN COMBO | | [phone] | +--------+--------+ + + + + Encounter Details +--------+ + + + + | Date | Type | Department | Care Team | Description | +--------+ + + + + | 02/22/ | Polishing Machine Operator | [facility] | Kwabena Sanchez, | Renal cell | | 2020 | | [facility] [place] | [address] | carcinoma, | | | | [address], | [address] | unspecified | | | | [place], [place] | [place], [place] | laterality (HCC) | | | | [address] | [address] | (Primary Dx) | | | | [phone] | [phone] | | | | | | | [...] encounter Miscellaneous Notes Telephone Encounter - Kwabena Sancehz MD - 02/23/2020 7:48 AM PDT [email or web address] [place] [facility] [address] [place] [address], [address] [place] [address] tel [phone] fax [phone] TELEPHONE NOTE Patient: Tila Altman Date: 02/23/2020 : 1965 AGE: 54 y.o. Attending Physician: Kawbena Sanchez MD Chief Complaint: Brain metastasis Interval History: Called overnight by [facility] ED with patient on imaging having new brain metastasis. Impression: Brain metastasis Plan: Decadron started and patient discharged home from ED. MRI brain ordered. Will consult [facility] rosurgery and radiation therapy. Kwabena Sanchez MD Department of Oncology/Hematology [facility] at [place] [address] [address] documented in this e ncounter Plan of [...]
--- OUTSIDE RECORDS SUMMARY | ~2020-06-29 | XMS | Encounter Summary ---
Demographics + + + | Address | [address] | | | [place] [address] | + + + | Home Phone [...] Team Providers + +------+ + | Care Extension Division Director Name | Role | Phone | [...] | neoplasm of | RADHA Curran | [address] | | | | | unspecified | [place] | [address] | | | | | kidney, | Family | [place], | | | | | except renal | Medicine | [place] [address] | | | | | pelvis | [address] | Phone: | | | | | Procedures | [address] | [phone] | | | | | CT NEW | [place], | Fax: | | | | | PATIENT | [place] [address] | [phone] | | | | | LEVEL V CT | Phone: | | | | | | EST PATIENT | [phone] | | | | | | LEVEL V | Fax: | | | | | | | [phone] | | + +---------+ + + + + Encounter Details +--------+---------+ + + + | Date | Type | Department | Care Team | Description | +--------+---------+ + + + | 11/01/ | Office | [facility] | Lissette Jones, | Kidney cancer, | | 2020 | Visit | Clinics at S | [place] [address] | primary, with | | | | [facility] [address] | metastasis from | | | | [facility] for | [facility], [place] | kidney to other | | | | Health and Healing, | [address] | site, left (HCC) | | | | [address] | [phone] | (Primary Dx) | | | | [place], [place] | | | | | | [address] | | | | | | [phone] | | | +--------+---------+ + + + [...] CREATININE PLASMA (LAB) 10/31/2019 1.60* EGFR - UKRAINIAN 10/31/2019 40* EGFR NON -UKRAINIAN 10/31/2019 33* SODIUM, PLASMA (LAB) 10/31/2019 133* [...]
--- OUTSIDE RECORDS SUMMARY | ~2020-06-29 | XMS | Encounter Summary ---
Demographics + + + | Address | [address] | | | [place] [address] | + + + | Home Phone [...] Team Providers + +------+ + | Care Device Engineer Name | Role | Phone | [...] | | Clinics at S | [place] [address] [address] | | | | | [address] | | | | | [facility] for | [place], [place] | | | | | Health and Healing, | [address] | | | | | Building 2 | [phone] | | | | | [place], [place] | | | | | | [address] | | | | | | [phone] | | | +--------+--------+ + + + [...] and Time Department Ordering/Authorizing 02/13/2020 10:43 AM [facility] Lissette Jones MD Outpatient Medication Detail Disp Refills oxyCODONE (immediate release) 5 mg oral tablet 120 tablet 0 Sig: Take 1 tablet by mouth every four hours as needed. Sent to pharmacy as: oxyCODONE 5 mg tablet (ROXICODONE) Class: eRx Earliest Fill Date: 02/13/2020 Route: oral Order: [id number] E-Prescribing Status: Receipt confirmed by pharmacy (02/13/2020 10:43 AM PDT) Start Date Earliest Fill Date Feb 13, 2020 Feb 13, 2020 Date and Time Department Ordering/Authorizing 11/28/2019 4:50 PM [facility] Lissette Jaime, DO Outpatient Medication Detail Disp Refills enoxaparin 80 mg/0.8 mL subcutaneous syringe (Discontinued) 48 mL 0 Sig: Inject 0.8 mL under the skin (SUBC) every twelve hours. Indications: anticoagulation t reatment Sent to pharmacy as: enoxaparin 80 mg/0.8 mL subcutaneous syringe (LOVENOX) Class: eRx Route: subcutaneous Reason for Discontinue: Reorder Order: [id number] Start Date End Date Nov 28, 2019 Dec 26, 2019 Controlled Substance Requested: Routing to RN Coordinator for review prior to sending to [facility] Rebolledoally signed by Doreen Chinchilla MA at 03/19/2020 3:58 PM PDTTelephone Encounter - Carlo Navas - 03/19/2020 3:40 PM PDTPatient calls, states that [facility] have sent a request from Oxycodone on [...] the patient wants the prescription refilled at: [facility] #[id number] - [place], [place] - [address] [phone] Is it ok to leave a confidential [...] category of medication and redirected patient to [facility] directly. Name of medication: Oxycodone Dose: 5 mg Frequency - How often are you taking it?: 1 every 4 hours as needed How much of the prescription do you have left - When will you run out?: 2 days' worth left Pharmacy the patient wants the prescription refilled at: [facility] #[id number] - [place], [place] - [address] [phone] Is it ok to leave a confidential voicemail?: Patient approves confidential and detailed mes sages left on answering machine and voicemail. Patient reminded of Clinic Refill Policy: 48-72 business hours to process refill requests. elephone Encounter - Anai Toribio - 03/16/2020 4:36 PM PDTRx Refill: Routing encounter to SAMSON law for processing.. Pharmacy Name: [facility] Phone #: [phone] -->SAMSON : Please review prescription refill request. Thank you. documented in this encount er Plan of Treatment Not on filedocumented as of this encounter Visit Diagnoses Not on filedocumented in this encounter"
--- OUTSIDE RECORDS SUMMARY | ~2020-06-29 | XMS | Encounter Summary ---
Demographics + + + | Address | [address] | | | [place] [address] | + + + | Home Phone [...] Providers + +------+ + | Care Nursing Scheduler Name | Role | Phone | + [...] | 2019 | | Nate Correia | [address] | | | | | [address] | | | | | [place], [place] | [place], [place] | | | | | [address] | [address] | | | | | [phone] | [phone] | | | | | | | [...] care. She asked for call back at [phone] but we do not h ave [facility] for Amada. Research notes that William is [...]
--- OUTSIDE RECORDS SUMMARY | ~2020-06-29 | XMS | Encounter Summary ---
Demographics + + + | Address | [address] | | | [place] [address] | + + + | Home Phone [...] Team Providers + +------+ + | Care Multimedia Engineer Name | Role | Phone | + +------+ + | Lissette Martinez PA-C | PCP | | + +------+ + Encounter Details +--------+ + + + + | Date | Type | Department | Care Team | Description | +--------+ + + + + | 03/21/ | Pharmacy | Pharmacy @ [facility] | | | | 2019 | Visit | [address] | | | | | | [address] Frank Mailcode: | | | | | | [facility] | | | | | | and Healing, | | | | | | Building 2 | | | | | | [place], [place] | | | | | | [address] | | | +--------+ + + + [...]
--- OUTSIDE RECORDS SUMMARY | ~2020-06-29 | XMS | Encounter Summary ---
Demographics + + + | Address | [address] | | | [place] [address] | + + + | Home Phone [...] Author + + + | Author | [facility] | | | and Shahram | + + + | Organization | [facility] [...] Team Providers + +------+ + | Care Dealer Development Manager Name | Role | Phone [...] | | | [address] | [place] [address] | | | | | [place] [address] | | | | | | [phone] | | | +--------+ + + + [...]
--- OUTSIDE RECORDS SUMMARY | ~2020-06-29 | XMS | Encounter Summary ---
Demographics + + + | Address | [address] | | | [place] [address] | + + + | Home Phone [...] Team Providers + +------+ + | Care Hydroelectric Station Chief Name | Role | Phone | + +------+ + | Lissette Martinez PA-C | PCP | | + +------+ + Encounter Details +--------+ + + + + | Date | Type | Department | Care Team | Description | +--------+ + + + + | 06/06/ | MyChart | Radiation Oncology | Antwon Beard | A. Huth | | 2020 | Encounter | at [facility] [address] | [address] | | | | | [address] | [facility] | | | | | [place], [facility] floor | [place], [place] | | | | | [place], [place] | [address] | | | | | [address] | [phone] | | | | | [phone] | | | +--------+ + + + [...]
--- OUTSIDE RECORDS SUMMARY | ~2020-06-29 | XMS | Encounter Summary ---
Demographics + + + | Address | [address] | | | [place] [address] | + + + | Home Phone [...] Team Providers + +------+ + | Care Coordinator Of Genetic Services Name | Role | Phone | + [...] Pharmacy | | | | | | [address] | | | | | | [place], [place] | | | | | | [address] | | | | | | [phone] | | | +--------+ + + + [...]
--- OUTSIDE RECORDS SUMMARY | ~2020-06-29 | XMS | Encounter Summary ---
Demographics + + + | Address | [address] | | | [place] [address] | + + + | Home Phone [...] Team Providers + +------+ + | Care Biotechnologist Name | Role | Phone | + [...] | | | | | Digna Sanches [place], | | | | | | [place] [address] | | | +--------+--------+ + + + [...]
--- OUTSIDE RECORDS SUMMARY | ~2020-06-29 | XMS | Encounter Summary ---
Demographics + + + | Address | [address] | | | [place] [address] | + + + | Home Phone [...] Team Providers + +------+ + | Care Cso Name | Role | Phone | + [...] | 07/10/ | Telephone | Pharmacy @ [facility] | Remy Bess, | Oral Chemo | | 2020 | | [address] | [address] [facility] | (Cabdianaantinib) | | | | [address] Frank Mailcode: | [address] | | | | | [facility] | [place] [employer], [place] | | | | | and [place], | [address] | | | | | Building 2 | | | | | | [place], [place] | | | | | | [address] | | | +--------+ + + + [...] Subject: Note TC: Faxed lab orders to [facility] in [place] -->Note to RNC: FYI ddendum Note - Zunilda Padilla RN - 04/02/2020 3:26 PM PDT Addended by: ZUNILDA PADILLA RN on: 04/02/2020 03:26 PM Modules accepted: Orders elephone Encount er - Zunilda Padilla RN - 04/02/2020 3:24 PM PDT -->[facility] TC: Please fax cbc and cmp lab orders to [facility] in [facility]. elephone Encounter - Zunilda Padilla RN - 04/02/2020 3:04 PM PDTCalled Tila-she has follow up set up for 04/23. Asked her to have labs drawn prior to her follow up appt. Patient requesting to hav e labs drawn locally in [facility] at [facility] lab. Lab orders in place.Electronically sign ed by Zunilda Padilla RN at 04/02/2020 3:24 PM PDTAddendum Note - Zunilda Padlila RN - 04/02/2020 3:03 PM PDT Addended [...] Prescription: The prescription will be filled at [facility]. The patient will have [...] updated. No significant drug interactions identified using Compliance Assurance resource. Monitoring/Supportive Care: The following labs and/or [...] - Care Planning:: 25 Minutes Spent Called [facility] and confirmed that they received the prescription. They have processed it through the insurance and plan to ship to the patient to arrive on Thursday, 03/30. elephone E Pina Dela Cruz PharmD - 03/26/2020 2:34 PM PDTPharmacy Documentation O ral Chemotherapy - Prescription Transferred:: 10 Minutes Spent Prescription for cabozantinib transferred to [facility]. The patient needs to [...] 03/21/21. The medication must be filled at [facility] specialty pharmacy [phone]. PharmD please reroute the Rx elephone Encounter [...] submitted fr CABOMETYX 40MG T LEONEL through [employer] [facility] via [employer] gonsales: ANCLYRLH documented [...]
--- OUTSIDE RECORDS SUMMARY | ~2020-06-29 | XMS | Encounter Summary ---
Demographics + + + | Address | [address] | | | [place] [address] | + + + | Home Phone [...] Team Providers + +------+ + | Care Posting Machine Operator Name | Role | Phone [...] [address] | | | | | [facility] for | [facility] | | | | | Health and Healing, | [place], [place] | | | | | | [address] | | | | | floor [place], [place] | [phone] | | | | | [address] | | | | | | [phone] | | | +--------+ + + + [...]
--- OUTSIDE RECORDS SUMMARY | ~2020-06-29 | XMS | Encounter Summary ---
Demographics + + + | Address | [address] | | | [place] [address] | + + + | Home Phone [...] + | Author | [facility] | | | and Shahram | + + + | Organization | [facility] | | | and Marcana [...] Providers + +------+ + | Care Contract Engineer Name | Role | Phone | + +------+ + PCP | Unavailable | + +------+ + Encounter Details +--------+ + + + + | Date | Type | Department | Care Team | Description | +--------+ + + + + | 12/27/ | Hospital | [facility] | | | | 2002 - | Encounter | MED CTR CANCER | | | | | | CENTER [address] | | | | 05/04/ | | [place] | | | | 2002 | | [address] | | | | | | [phone] | | | +--------+ + + + [...]
--- OUTSIDE RECORDS SUMMARY | ~2020-06-29 | XMS | Encounter Summary ---
Demographics + + + | Address | [address] | | | [place] [address] | + + + | Home Phone [...] Team Providers + +------+ + | Care Evaporator Name | Role | Phone | + [...] | | Clinics at S | [place] [address] | Cancelled By Patient | | | | [facility] | (In Hospital) | | | | [facility] for | [place], [place] | | | | | Health and [facility], | [address] | | | | | Building 2 | [phone] | | | | | [place], [place] | | | | | | [address] | | | | | | [phone] | | | +--------+ + + + [...] reports and images by faxing request to [phone] Call to Pt to check in after [...] 06/05/2020 2 :50 PM PDTCall transferred from [place] SHAHZAD Atkins at [facility] ED in [place] calling in requesting to speak with Dr.V [...]
--- OUTSIDE RECORDS SUMMARY | ~2020-06-29 | XMS | Encounter Summary ---
Demographics + + + | Address | [address] | | | [place] [address] | + + + | Home Phone [...] | Author | [facility] | | | and Shahram | + + + | Organization | [facility] | | | and Marcana [...] Providers + +------+ + | Care Cook Ice Cream Name | Role | Phone | + +------+ + PCP | Unavailable | + +------+ + Encounter Details +--------+ + + + + | Date | Type | Department | Care Team | Description | +--------+ + + + + | 08/29/ | Hospital | [facility] | | | | 2001 - | Encounter | MED CTR CANCER | | | | | | CENTER [address] | | | | 12/26/ | | [place] | | | | 2002 | | [address] | | | | | | [phone] | | | +--------+ + + + [...]
--- OUTSIDE RECORDS SUMMARY | ~2020-06-29 | XMS | Encounter Summary ---
Demographics + + + | Address | [address] | | | [place] [address] | + + + | Home Phone [...] Team Providers + +------+ + | Care Car Wash Attendant Name | Role | Phone | + +------+ + | Lissette Martinez PA-C | PCP | | + +------+ + Encounter Details +--------+ + + + + | Date | Type | Department | Care Team | Description | +--------+ + + + + | 06/04/ | MyChart | [facility] | Lissette Jones, | RE: Virtual appt. | | 2019 | Encounter | Clinics at S | [place] [address] | for Tessa Altman | | | | [facility] | 06/05/2020 | | | | [facility] for | [place], [place] | | | | | Health and Healing, | [address] | | | | | Building 2 | [phone] | | | | | [place], [place] | | | | | | [address] | | | | | | [phone] | | | +--------+ + + + [...]
--- OUTSIDE RECORDS SUMMARY | ~2020-06-29 | XMS | Encounter Summary ---
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 Follow-up with medical oncology at [facility] as directed. Follow-up in my office [...]
--- OUTSIDE RECORDS SUMMARY | ~2020-06-29 | XMS | Encounter Summary ---
Demographics + + + | Address | [address] | | | [place] [address] | + + + | Home Phone [...] Team Providers + +------+ + | Care Head Of Academic Technology Name | Role | Phone | + +------+ + | Lissette Martinez PA-C | PCP | | + +------+ + Encounter Details +--------+ + + + + | Date | Type | Department | Care Team | Description | +--------+ + + + + | 11/01/ | Signal Fitter | [facility] | Lissette Jones, | Kidney cancer, | | 2020 | | Clinics at S | [place] [address] | primary, with | | | | [address] | metastasis from | | | | [facility] for | [place] [place] [place] [place] | kidney to other | | | | Health and Healing, | [address] | site, left (HCC) | | | | Building 2 | [phone] | (Primary Dx) | | | | [place], [place] | | | | | | [address] | | | | | | [phone] | | | +--------+ + + + [...] | | | LABORATORY | | | PRYDEINIG | | | SERVICES, | | | [...] JEANETTE OLIVAREZ | [address] | [place] [address] | | | SERVICES, [facility] | | | | | HEALTH + HEALING | | | | + + + + + documented in this encounter Visit Diagnoses + + | Diagnosis | + + | Kidney cancer, primary, 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
--- OUTSIDE RECORDS SUMMARY | ~2020-06-29 | XMS | Encounter Summary ---
Demographics + + + | Address | [address] | | | [place] [address] | + + + | Home Phone [...] Team Providers + +------+ + | Care Customs House Broker Name | Role | Phone | [...] | | | | cancer, | [place] [address] [address] | [address] | | | | | primary, | [address] | [address] | | | | | with | Ct | [place], [place] | | | | | metastasis | [place], | [address] | | | | | from kidney | [place] | Phone: | | | | | to other | [address] | [phone] | | | | | site, left | Phone: | Fax: | | | | | ([facility]) | [phone] | [phone] | | | | | Procedures | Fax: | | | | | | CONSULT TO | [phone] | | | | | | ADULT [...] neoplasm of | E, [place]-C | [place] [address] | | | | | unspecified | [place] | [address] | | | | | kidney, | Family | [place], | | | | | except renal | Medicine | [place] [address] | | | | | pelvis | [address] | Phone: | | | | | Procedures | [address] | [phone] | | | | | [place] NEW | Tim, | Fax: | | | | | PATIENT | [place] [address] | [phone] | | | | | LEVEL [place] | Phone: | | | | | | EST PATIENT | [phone] | | | | | | LEVEL V | Fax: | | | | | | | [phone] | | + +---------+ + + + + Encounter Details +--------+---------+ + + + | Date | Type | Department | Care Team | Description | +--------+---------+ + + + | 10/31/ | Office | [facility] | Lissette Ortiz, | Kidney cancer, | | 2020 | Visit | Clinics at S | [place] [address] | primary, with | | | | [address] | metastasis from | | | | [facility] for | [place], [place] | kidney to other | | | | Health and Healing, | [address] | site, left (HCC) | | | | Building 2 | [phone] | (Primary Dx) | | | | [place], [place] | | | | | | [address] | | | | | | [phone] | | | +--------+---------+ + + + [...] speech. Appropriate mood/affect. Laboratory: LAB RESULTS: Clinical Mud Jack Operator on 10/31/2019 Component Date Value WHITE CELL [...] CREATININE PLASMA (LAB) 10/31/2019 1.60* EGFR - ARMENIAN 10/31/2019 40* EGFR NON -ARMENIAN 10/31/2019 33* SODIUM, PLASMA (LAB) 10/31/2019 129* [...]
--- OUTSIDE RECORDS SUMMARY | ~2020-06-29 | XMS | Encounter Summary ---
Demographics + + + | Address | [address] | | | [place] [address] | + + + | Home Phone [...] Team Providers + +------+ + | Care Staff Field Engineer Name | Role | Phone | + +------+ + | Lissette Martinez PA-C | PCP | | + +------+ + Encounter Details +--------+ + + + + | Date | Type | Department | Care Team | Description | +--------+ + + + + | 08/09/ | Cytology Manager | [facility] | Ash Cavazos MD | Renal mass (Primary | | 2019 | | Clinics at S | [address] | Dx) | | | | [address] | [address] S[place], | | | | | Colin [facility] | [place] [address] | | | | | Health and Healing, | [phone] | | | | | Building [address] | | | | | | [place], [place] | | | | | | [address] | | | | | | [phone] | | | +--------+ + + + [...]
--- OUTSIDE RECORDS SUMMARY | ~2020-06-29 | XMS | Encounter Summary ---
Demographics + + + | Address | [address] | | | [place] [address] | + + + | Home Phone [...] Team Providers + +------+ + | Care Bomb Technician Name | Role | Phone | [...] | | | | US BIOPSY | [facility] | Digna REID | | | | | LIVER WITH | Rd | [facility], | | | | | GUIDANCE | [place], [place] | 10th Floor | | | | | ABDOMEN | [address] | [place], [place] | | | | | BIOPSY | Phone: | [phone] | | | | | REQUEST [place] | [phone] | Phone: | | | | | BIOPSY OF | Fax: | [phone] | | | | | LIVER, | [phone] | Fax: | | | | | NEEDLE, | | [phone] | | | | | PERCUTANEOUS | | | | | | | [place] SONO | | | | | | [...] + + | 08/16/ | Hospital | [facility] [address] | Monica Wylie MD | | | 2019 | Encounter | [address] | [address] | | | | | [facility] [facility] | Digna S[place], | | | | | [place], [place] | [place] [address] | | | | | [address] | [phone] | | | | | [phone] | | | +--------+ + + + [...] Discharge Instructions Instructions Sheri Tomas RN - 08/15/2019[place] Care Instructions: Liver Biopsy Diet and Medications: Resume your normal diet and take your usual medications unless the [facility] care provider who ordered your biopsy instructed otherwise. Do not start taking blood thinners or antiplatelet medications without clear instructions f rom the health care provider who ordered your biopsy. If you need medication for pain after your procedure, take prescription or fhlv-pkm-ujwuaep pain medications as instructed by the health [...] Call and ask to speak with a [facility] radiology nurse. After 4:30 pm: Call the [facility] production honing machine operator at and ask to have the [facility] resident photonics technician paged. If you feel you require immediate [...] the procedure without complication and returned to [facility] PCU | | | for post-procedure monitoring. [...] now | | presented. Final signature: Monica yWlie MD 08/16/2019 5:18 PM Preliminary: Norbert | [...] PathologistPathology, | | | | | | [facility] | | | | | [...] | | | | | | gy, [facility] & | | | | | | [...] number | | | | | | [id number].A. Liver, : | | | | | [...] | | | | | determined by [facility] | | | | | [...] | + + + + + | [facility] | [address] | [place] [address] | | | PATHOLOGY | [address] [...]
--- OUTSIDE RECORDS SUMMARY | ~2020-06-29 | XMS | Encounter Summary ---
Demographics + + + | Address | [address] | | | [place] [address] | + + + | Home Phone [...] Providers + +------+ + | Care Supervisor Blast Furnace Name | Role | Phone | + [...] | | | carcinoma of | [place] [address] | | | | | left kidney | [address] | Center for | | | | | ([facility]) | Ct | Health and | | | | | Procedures | [place], | Healing, | | | | | CT CHEST, | [place] | Building [address], | | | | | ABDOMEN AND | [address] | 3rd Floor | | | | | PELVIS W IV | Phone: | [place], [place] | | | | | [place] | [phone] | [address] | | | | | CAT SCAN OF | Fax: | Phone: | | | | | CHEST | [phone] | [phone] | | | | | [place] | | Fax: | | | | | CT | | [phone] | | | | | ABDOMEN&PELV | [...] | | Clinics at S | [place] [address] | | | | | [address] | | | | | [facility] for | [place], [place] | | | | | Health and Healing, | [address] | | | | | [address] | [phone] | | | | | [place], [place] | | | | | | [address] | | | | | | [phone] | | | +--------+ + + + [...] shawn ling to get it done at [facility]. Obtained authorization for scan to be [...] Confirms they should go to fax number [phone]. LIZZ relays that we are still working [...] Placed f or CT scan locally --> [facility] TC: Please fax CT orders to [facility] in [facility] --> [facility] Handicapped Teacher: Please schedule follow up for the week [...] MD Ariana Roberts RN Cc[facility] Sched ule Caller: Unspecified (Today, 10:49 AM) [...] and fax to [facility] in [facility] as requested. Informed her she should receive [...] not a vailable that day. Please advise surveyor mine. Patient is also due for a CT. Asks if the CT can be done locally, at [facility]. Routing to Schedule Routing to RNC documented i n this encounter Plan of Treatment Not on filedocumented as of this encounter Visit Diagnoses + + | Diagnosis | + + | 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
--- OUTSIDE RECORDS SUMMARY | ~2020-06-29 | XMS | Encounter Summary ---
Demographics + + + | Address | [address] | | | [place] [address] | + + + | Home Phone [...] Team Providers + +------+ + | Care American Sign Language Teacher Name | Role | Phone | [...] | | | | [place], | [place] [address] [address] | [facility] | | | | | primary, | [address] | Myron Calvin | | | | | with | Ct | Research | | | | | metastasis | ELIZABETH Pura | | | | | from kidney | [place] | [place], [place] | | | | | to other | [address] | [address] | | | | | site, left | Phone: | Phone: | | | | | (HCC) | [phone] | [phone] | | | | | Procedures | Fax: | Fax: | | | | | MRI BRAIN | [phone] | [phone] | | | | | TUMOR | | | | | | | EVALUATION | | | | | | | WWO CONTRAST | | | | | | | NV MRI | | | | | | [...] | | Kidney | Lissette, | [address] | | | | | cancer, | [place] [address] [address] | [address] | | | | | primary, | [address] | [address] | | | | | with | Ct | Frederick Navas, | | | | | metastasis | ELIZABETH, | [place] | | | | | from kidney | [place] | [place], [place] | | | | | to other | [address] | [address] | | | | | site, left | Phone: | Phone: | | | | | (HCC) | [phone] | [phone] | | | | | Procedures | Fax: | Fax: | | | | | NM BONE &/OR | [phone] | [phone] | | | | | JOINT | | | | | | | IMAGING | | | | | | | WHOLE BODY | | | | | | | NV BONE | | | | | | [...] | neoplasm of | E, PA-C | [address] | | | | | unspecified | [place] | [address] | | | | | kidney, | Family | [place], | | | | | except renal | Medicine | [place] [address] | | | | | pelvis | [address] | Phone: | | | | | Procedures | [address] | [phone] | | | | | NV NEW | Tim, | Fax: | | | | | PATIENT | [place] [address] | [phone] | | | | | LEVEL V [place] | Phone: | | | | | | EST PATIENT | [phone] | | | | | | LEVEL V | Fax: | | | | | | | [phone] | | + +---------+ + + + + Encounter Details +--------+---------+ + + + | Date | Type | Department | Care Team | Description | +--------+---------+ + + + | 08/22/ | Office | [facility] | Lissette Jones, | Kidney cancer, | | 2019 | Visit | Clinics at S | [place] [address] [address] | primary, with | | | | [facility] [address] | [address] | metastasis from | | | | [facility] [place] for | [place], [place] | kidney to other | | | | Health and Healing, | [address] | site, left (HCC) | | | | [address] | [phone] | (Primary Dx) | | | | [place], [place] | | | | | | [address] | | | | | | [phone] | | | +--------+---------+ + + + [...] 54 y.o. 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
--- OUTSIDE RECORDS SUMMARY | ~2020-06-29 | XMS | Encounter Summary ---
Demographics + + + | Address | [address] | | | [place] [address] | + + + | Home Phone [...] | Author | [facility] | | | and Shahram | + + + | Organization | [facility] | | | and [...] Team Providers + +------+ + | Care Seaming Inspector Name | Role | Phone | + +------+ + PCP | Unavailable | + +------+ + Encounter Details +--------+ + + + + | Date | Type | Department | Care Team | Description | +--------+ + + + + | 11/06/ | Hospital | [facility] | | | | 2005 - | Encounter | MED CTR GENERIC OP | | | | | | CONV DEPT [address] | | | | 12/05/ | | [place], | | | | 2005 | | [place] [address] | | | | | | [phone] | | | +--------+ + + + [...]
--- OUTSIDE RECORDS SUMMARY | ~2020-06-29 | XMS | Encounter Summary ---
Demographics + + + | Address | [address] | | | [place] [address] | + + + | Home Phone [...] Team Providers + +------+ + | Care Parts Interpreter Name | Role | Phone | + [...] Ros[address] Mack | | | | | [facility] | Digna Sanches [place], | | | | | [address] | [place] [address] | | | | | [address] | [phone] | | | | | [facility] | | | | | | Physician's | | | | | | Pavilion [place], | | | | | | [place] [address] | | | | | | [phone] | | | +--------+ + + + [...]
--- OUTSIDE RECORDS SUMMARY | ~2020-06-29 | XMS | Encounter Summary ---
Demographics + + + | Address | [address] | | | [place] [address] | + + + | Home Phone [...] Providers + +------+ + | Care Guest Relations Agent Name | Role | Phone | [...]
--- OUTSIDE RECORDS SUMMARY | ~2020-06-29 | XMS | Encounter Summary ---
Demographics + + + | Address | [address] | | | [place] [address] | + + + | Home Phone [...] Team Providers + +------+ + | Care Arcade Attendant Name | Role | Phone | [...] | | | [place]oplasm [place] | [place] [address] | [address] | | | | | left kidney, | [place] | Center for | | | | | except | Ct | Health and | | | | | renal pelvis | [place], | Healing, | | | | | Procedures | [place] | [address] | | | | | Study IRB: | [id number] | [place], [place] | | | | | | Phone: | [phone] | | | | | Study Title: | [phone] | Phone: | | | | | | Fax: | [phone] | | | | | PD-INHIBITOR | [phone] | Fax: | | | | | (NIVOLUMAB) | | [phone] | | | | | AND | [...] | 11/01/ | Lab | Laboratory at [facility] | | Kidney cancer, | | 2019 | | [address] | | primary, with | | | | Center for [facility] | | metastasis from | | | | and Healing, | | kidney to other | | | | Building [address] | | site, left ([facility]) | | | | [place], [place] | | | | | | [address] | | | | | | [phone] | | | +--------+------+ + + + [...] + + documented in this encounter Results [facility] - BASIC METABOLIC SET (11/01/2019 10:13 [...] | | | LABORATORY | | | J[place]ANIAN | | | SERVICES, | | | [...] + + + + + | JEANETTE [facility] | [address] | [place] [address] | | | SERVICES, [facility] | | | | | HEALTH + HEALING | | | | + + + + + documented in this encounter Visit Diagnoses + + | Diagnosis | + + | Kidney cancer, primary, 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
--- OUTSIDE RECORDS SUMMARY | ~2020-06-29 | XMS | Encounter Summary ---
Demographics + + + | Address | [address] | | | [place] [address] | + + + | Home Phone [...] Team Providers + +------+ + | Care Sybase Developer Name | Role | Phone | [...] 2020 | sent or is patient to picker/puller? | +--------+--------+ + Encounter Details +--------+ + + + + | Date | Type | Department | Care Team | Description | +--------+ + + + + | 10/03/ | Telephone | [facility] | Lissette Jones, | Other (10/10 Appt time | | 2019 | | Clinics at S | [address] | moved to 10:10, has | | | | [facility] [address] | Aflec paperwork | | | | [facility] for | [place], [place] | been sent or is | | | | Health and Healing, | [address] | patient to picker/puller?) | | | | [place] [address] | [phone] | | | | | [place], [place] | | | | | | [address] | | | | | | [phone] | | | +--------+ + + + [...] Notes Telephone Encounter - Guanako Joseph - 10/18/2019 12:57 PM PSTTeam Coordinator Documentat ion: Subject: Note TC: Received completed disability and faxed it to [employer]. A copy has been uploaded into thi [...] She would like her ppw faxed to [phone] and a copy to be mailed to [...] CB to discuss further. -->Note to RNC: HOMA elephone Encounter - Sara Cox - 10/03/2019 [...]
--- OUTSIDE RECORDS SUMMARY | ~2020-06-29 | XMS | Encounter Summary ---
Demographics + + + | Address | [address] | | | [place] [address] | + + + | Home Phone [...] | Author | [facility] | | | and Shahram | + + + | Organization | [facility] | | | and Marcana [...] Team Providers + +------+ + | Care Customer Contact Representative Name | Role | Phone | + +------+ + PCP | Unavailable | + +------+ + Encounter Details +--------+ + + + + | Date | Type | Department | Care Team | Description | +--------+ + + + + | 05/01/ | Hospital | [facility] | | | | 2004 - | Encounter | MED CTR GENERIC OP | | | | | | CONV DEPT [address] | | | | 07/30/ | | [place], | | | | 2004 | | [place] [address] | | | | | | [phone] | | | +--------+ + + + [...]
--- OUTSIDE RECORDS SUMMARY | ~2020-06-29 | XMS | Encounter Summary ---
Demographics + + + | Address | [address] | | | [place] [address] | + + + | Home Phone [...] Team Providers + +------+ + | Care Test And Balance Engineer Name | Role | Phone [...] | | Clinics at S | [place] [address] [address] | Refill Request | | | | [facility] [address] | [address] | | | | | [facility] for | [place], [place] | | | | | Health and Healing, | [address] | | | | | [facility] | [phone] | | | | | [place], [place] | | | | | | [address] | | | | | | [phone] | | | +--------+--------+ + + + [...] 12/20/2019 1:00 PM PDTPharmacy and Karen's last offi ce visit note confirm pt will receive Nivolumab every 28 days. Pt is currently scheduled for next treatment on 01/01, which is a week too early. Will change appt to reflect [facility] plan changes. ddendum Note - Ellie Gold MA - 12/14/2019 12:16 PM PDT Addended by: ELLIE JOHNS MA on: 12/14/2019 12:16 P M Modules accepted: Orders elephone Encounter - Ellie Johns MA - 12/14/2019 12:11 PM PDTCalled [facility] pharmacy confirmed they did not r eceived the Rx for oxyCODONE (immediate release) 5 mg oral tablet. cholecalciferol 50,000 unit oral capsule was received by the [place] [facility]. I will Pend both Rx to be sent to [facility] pharmacy. elephone Encounter - Jessica Paiz - 12/14/2019 9:25 AM PDTP atient calling in w/ questions re her recent Rx and where they were sent. Patient req if sen t to [employer] [id number] [place], [place] - [address] [phone] Patient very agreeable to call back PAS confirmed call back ph# [phone] Routing to RNC elephone Giovanna Del Castillo RN - 12/13/2019 3:[address] Jones -- pt switching to Nivolumab s vikki agent every 4 weeks. RNC to f/u with scheduling once Nivolumab has been authorized by managed care. documented in this encounter Plan of Treatment Not on filedocumented as of this encounter Visit Diagnoses Not on filedocumented in this encounter"
--- OUTSIDE RECORDS SUMMARY | ~2020-06-29 | XMS | Encounter Summary ---
Demographics + + + | Address | [address] | | | [place] [address] | + + + | Home Phone [...] Providers + +------+ + | Care Cardiac Exercise Physiologist Name | Role | Phone | + [...] Request | | 2019 | | at [facility] | DO [address]ette [address] | | | | | [address] | [address] | | | | | Loop Physician[address] | Rd [place], [place] | | | | | [place], [address] [place] [address] | [address] | | | | | [place], [place] | [phone] | | | | | [address] | | | | | | [phone] | | | +--------+--------+ + + + [...]
--- OUTSIDE RECORDS SUMMARY | ~2020-06-29 | XMS | Encounter Summary ---
Demographics + + + | Address | [address] | | | [place] [address] | + + + | Home Phone [...] Providers + +------+ + | Care Clothing Busheler Name | Role | Phone | + [...] Pharmacy | | | | | | [address] | | | | | | [place], [place] | | | | | | [address] | | | | | | [phone] | | | +--------+ + + + [...]
--- OUTSIDE RECORDS SUMMARY | ~2020-06-29 | XMS | Encounter Summary ---
Demographics + + + | Address | [address] | | | [place] [address] | + + + | Home Phone [...] Providers + +------+ + | Care Manager Of Environmental Services Name | Role | Phone | [...] + + | 11/20/ | Hospital | [facility] | [address] | | | 2020 | Encounter | Clinics at S | [place], [place] | | | | | [facility] [address] | [address] | | | | | [facility] for | | | | | | Health and Healing, | | | | | | Building [address] | | | | | | [place], [place] | | | | | | [address] | | | | | | [phone] | | | +--------+ + + + [...] encounter Progress Notes Bebe Islas RN - 11/21/2019 9:48 AM PDTPt arrived hypotensive. Previous vitals at 0915 a t the clinic was 64/30 HR38. Patinet was sent to infusion floor with no communication about pervious BP.On arrival on infusion floor VS 77/47 HR 103.Pt stated she had some weakness but denies dizziness, and SOB. PIV that was placed in CT had been removed prior to arriving in the floor. RAW STOCK MACHINE LOADER called to place IV and assess pt. RAW STOCK MACHINE LOADER stated to activate AMS. CANDY PULLER Straughter andrew t chair side. AMS arrived, and it was decided pt would be taken to the [facility] ED. MD Karen alvares paged at 1115 and did not call back until 1205 and stated she was aware of pt BP and c ondition prior to sending her to the infusion floor. traSudha esposito YINA - 11/21/2019 9:48 AM PDTPatient very h [...] | | | LABORATORY | | | SURIN[facility] | | | SERVICES, | | | [...] MDRD equation recommended by the National | [facility] | | Kidney Disease Education Program. Estimated [...] + | JEANETTE OLIVAREZ | [address] | [place] [address] | | | [facility] | | | | | HEALTH + HEALING | | | | + + + + + documented in this encounter Visit Diagnoses + + | Diagnosis | + + | 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
--- OUTSIDE RECORDS SUMMARY | ~2020-06-29 | XMS | Encounter Summary ---
Demographics + + + | Address | [address] | | | [place] [address] | + + + | Home Phone [...] Team Providers + +------+ + | Care Crane Service Technician Name | Role | Phone | [...] Pharmacy | | | | | | [address] | | | | | | Loop [place], [place] | | | | | | [address] | | | | | | [phone] | | | +--------+ + + + [...]
--- OUTSIDE RECORDS SUMMARY | ~2020-06-29 | XMS | Encounter Summary ---
Demographics + + + | Address | [address] | | | [place] [address] | + + + | Home Phone [...] Team Providers + +------+ + | Care Color Specialist Name | Role | Phone | + +------+ + | Lissette Martinez PA-C | PCP | | + +------+ + Encounter Details +--------+ + + + + | Date | Type | Department | Care Team | Description | +--------+ + + + + | 11/22/ | Procedure | Diagnostic Imaging | | | | 2019 | Pass | Services at [facility] | | | | | | [address] | | | | | | Digna REID | | | | | | [address] | | | | | | [place], [place] | | | | | | [address] | | | | | | [phone] | | | +--------+ + + + [...]
--- OUTSIDE RECORDS SUMMARY | ~2020-06-29 | XMS | Encounter Summary ---
Demographics + + + | Address | [address] | | | [place] [address] | + + + | Home Phone [...] Providers + +------+ + | Care Data Collection Interviewer Name | Role | Phone | + [...] | neoplasm of | RADHA Curran | [address] | | | | | unspecified | [place] | [address] | | | | | kidney, | Family | [place], | | | | | except renal | Medicine | [place] [address] | | | | | pelvis | [address] | Phone: | | | | | Procedures | [address] | [phone] | | | | | [place] NEW | Tim, | Fax: | | | | | PATIENT | [place] [address] | [phone] | | | | | LEVEL V [place] | Phone: | | | | | | EST PATIENT | [phone] | | | | | | LEVEL V | Fax: | | | | | | | [phone] | | + +---------+ + + + + Encounter Details +--------+---------+ + + + | Date | Type | Department | Care Team | Description | +--------+---------+ + + + | 09/12/ | Office | [facility] | Lissette Jones, | Renal cell carcinoma | | 2020 | Visit | Clinics at S | [place] [address] [address] | of left kidney | | | | [facility] [address] | (HCC) (Primary Dx) | | | | [facility] for | [place], [place] | | | | | Health and Healing, | [address] | | | | | [address] | [phone] | | | | | [place], [place] | | | | | | [address] | | | | | | [phone] | | | +--------+---------+ + + + [...] as of this encounter Progress Notes Lissette Joens MD - 09/12/2019 10:10 AM PSTFormatting of [...] CREATININE PLASMA (LAB) 09/12/2019 1.31* EGFR - KITTITIAN 09/12/2019 51* EGFR NON -KITTITIAN 09/12/2019 42* SODIUM, PLASMA (LAB) 09/12/2019 138 [...] [facility] | [address] | [place] [address] | | | [facility] | | | | [...] LABORATORY | | | | | | [facility], | | | | | [...] LABORATORY | [address] | [place] [address] | | | SERVICES, [facility] FOR | [...] | | | LABORATORY | | | KITTITIAN | | | SERVICES, | | | [...] | [facility] | [address] | [place] [address] | | | SERVICES, [facility] | | | | | HEALTH + HEALING | | | | + + + + + documented in this encounter Visit Diagnoses + + | Diagnosis | + + | 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) - Primary | + + documented in this encounter
--- OUTSIDE RECORDS SUMMARY | ~2020-06-29 | XMS | Encounter Summary ---
Demographics + + + | Address | [address] | | | [place] [address] | + + + | Home Phone [...] Providers + +------+ + | Care Land Sales Agent Name | Role | Phone | + +------+ + | Lissette Matrinez PA-C | PCP | | + +------+ [...] + + | 11/20/ | Hospital | [facility] | [address] | | | 2020 | Encounter | Clinics at S | [place], [place] | | | | | [facility] [address] | [address] | | | | | [facility] for | | | | | | Health and Healing, | | | | | | [address] | | | | | | [place], [place] | | | | | | [address] | | | | | | [phone] | | | +--------+ + + + [...] removed prior to arriving in the floor. SUPERVISOR STAVE FINISHING called to place IV and assess pt. SUPERVISOR STAVE FINISHING stated to activate AMS. PRINT INSPECTOR Straughter andrew t chair side. AMS arrived, and it was decided pt would be taken to the [facility] ED. MD Karen alvares paged at [...] | | | LABORATORY | | | [place] | | | SERVICES, | | | [...] recommended by the National | [facility] | | Kidney Disease Education [...] JEANETTE OLIVAREZ | [address] | [place] [address] | | | [facility] | | | | | HEALTH + HEALING | | | | + + + + + documented in this encounter Visit Diagnoses + + | Diagnosis | + + | 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
--- OUTSIDE RECORDS SUMMARY | ~2020-06-29 | XMS | Encounter Summary ---
Demographics + + + | Address | [address] | | | [place] [address] | + + + | Home Phone [...] Team Providers + +------+ + | Care Radiology Interventional Physician Name | Role | Phone | + [...] | 10/31/ | Clinical | Laboratory at [facility] | | Lab Draw | | 2020 | Support | [address] | | | | | Staff | [facility] | | | | | | and Healing, | | | | | | [address] | | | | | | [place], [place] | | | | | | [address] | | | | | | [phone] | | | +--------+ + + + [...] + + + + + | [facility] | [address] | [place] [address] | | | DWIGHT MARTINE[address] | [address] [...] + + + + + | [facility] | [address] | [place] [address] | | | SERVICES, CORE | PARK [...] [facility] | [address] | [place] [address] | | | SERVICES, CORE | [address] | | | + + + + + [facility] - COMPLETE METABOLIC SET (10/31/2019 9:10 AM [...] SERVICES, | | | | | | [facility] | | | | | | [...] | | | LABORATORY | | | [place] | | | SERVICES, | | | | | | [facility] FOR | | | | | | HEALTH + | | | | | | HEALING | | + + + + + + | EGFR NON | 33 (L) | >60 mL/min | [facility] | | | -[place] | | | LABORATORY | | | [...] SERVICES, | | | | | | [facility] | | | | | | [...] | + + + + + | [employer] | [address] | [place] [address] | | | SERVICES, [facility] [facility] | | | | | HEALTH [...] | included in the neutrophil count. | [facility] | | | HEALTH + | | | HEALING | + + + + + + + + | Performing | Address | City/State/Zipcode | Phone Number | | Organization | | | | + + + + + | [facility] | [address] | [place] [address] | | | [facility] | | | | | HEALTH + HEALING | | | | + + + + + documented in this encounter Visit Diagnoses + + | Diagnosis | + + | 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
--- OUTSIDE RECORDS SUMMARY | ~2020-06-29 | XMS | Encounter Summary ---
Demographics + + + | Address | [address] | | | [place] [address] | + + + | Home Phone [...] + +------+ + | Care Audio Visual Arts Director Name | Role | Phone | [...] | neoplasm of | RADHA Curran | [address] | | | | | unspecified | [place] | [address] | | | | | kidney, | Family | [place], | | | | | except renal | Medicine | [place] [address] | | | | | pelvis | [address] | Phone: | | | | | Procedures | [address] | [phone] | | | | | [place] NEW | [place], | Fax: | | | | | PATIENT | [place] [address] | [phone] | | | | | LEVEL V [place] | Phone: | | | | | | EST PATIENT | [phone] | | | | | | LEVEL V | Fax: | | | | | | | [phone] | | + +---------+ + + + + Encounter Details +--------+ + + + + | Date | Type | Department | Care Team | Description | +--------+ + + + + | 05/15/ | Video/TeleH | [facility] | Lissette Jones, | | | 2020 | ealth-Sched | Clinics at S | [place] [address] [address] | | | | uled | [facility] [address] | | | | | [facility] for | [place], [place] | | | | | Health and Healing, | [address] | | | | | [address] | [phone] | | | | | [place], [place] | | | | | | [address] | | | | | | [phone] | | | +--------+ + + + [...] jo located at the distant site of [facility]. The patient stated they were located at the [facility] site of [place] and were in the state of [place] at the time of the virtual visit. The n da of all additional persons participating in the virtual visit and their roles are: shiv nt. I have spent a total of 20 minutes on this patient's care today. This time includes the vi rtual visit [id number] time with the patient as well as [...]
--- OUTSIDE RECORDS SUMMARY | ~2020-06-29 | XMS | Encounter Summary ---
Demographics + + + | Address | [address] | | | [place] [address] | + + + | Home Phone [...] Team Providers + +------+ + | Care Dressage Instructor Name | Role | Phone | [...] | | | | Hypercalcemi | [place] [address] | [address] | | | | | a of | [address] | | | | | malignancy | Ct | Center for | | | | | Renal cell | [facility], | [facility] and | | | | | adenocarcino | [place] | Healing, | | | | | ma (HCC) | [address] | [address] | | | | | Procedures | Phone: | [place], [place] | | | | | [place] | [phone] | [address] | | | | | PAMIDRONATE | Fax: | Phone: | | | | | DISODIUM, | [phone] | [phone] | | | | | PER 30 MG | | Fax: | | | | | [place] | | [phone] | | | | | THR/PRPH/DX | [...] + + | 12/11/ | Hospital | [facility] | [address] | | | 2020 | Encounter | Clinics at S | Ave [place], [place] | | | | | [address] | [address] | | | | | [facility] | | | | | Health and Healing, | | | | | | [address] | | | | | | [place], [place] | | | | | | [address] | | | | | | [phone] | | | +--------+ + + + [...] this note might be different from t sliva original. Nurse Note Name: Tila Altman Date: [...]
--- OUTSIDE RECORDS SUMMARY | ~2020-06-29 | XMS | Encounter Summary ---
Demographics + + + | Address | [address] | | | [place] [address] | + + + | Home Phone [...] Providers + +------+ + | Care Product Support Rep Name | Role | Phone | + +------+ + | Lissette Martinez PA-C | PCP | | + +------+ + Encounter Details +--------+ + + + + | Date | Type | Department | Care Team | Description | +--------+ + + + + | 12/21/ | Documentati | [facility] Primary Care | Yeni, | | | 2019 | on | at [facility] | DO Lissette [address] | | | | | [address] | [address] [facility] | | | | | Loop Physician's | [place], [place] | | | | | Ishan, [address] [place] [address] | [address] | | | | | [place], [place] | [phone] | | | | | [address] | | | | | | [phone] | | | +--------+ + + + [...]
--- OUTSIDE RECORDS SUMMARY | ~2020-06-29 | XMS | Encounter Summary ---
Demographics + + + | Address | [address] | | | [place] [address] | + + + | Home Phone [...] Team Providers + +------+ + | Care X Ray Nurse Name | Role | Phone | + +------+ + | Lissette Martinez PA-C | PCP | | + +------+ + Encounter Details +--------+ + + + + | Date | Type | Department | Care Team | Description | +--------+ + + + + | 08/24/ | Telephone | [facility] | Lissette Jones, | | | 2018 | | [facility] | [address] | | | | | [address] | | | | | [place], [place] | [place], [place] | | | | | [address] | [address] | | | | | [phone] | [phone] | | | | | | | [...] be disch arged soon. Encounter routed to trip rider to move Pt 09/[address] [...] to advise Pt of need for ED. arnp, maya Puri call for medical transport after Dr. Jones sees Pt. Called report to ED. Carlton Onc to foll ow up after discharge. ele phone Encounter - Ellie Johns MA - 08/24/2019 12:50 PM PSTCalled pt and advised them Dr. Jones sent an Rx for levothroxine to [facility] pharmacy and to citrus picker after infusion today. Pt st ated understanding. ele phone Encounter - Ashlee Holley RN - 08/24/2019 11:42 AM PSTEncounter sent to trip rider for s yohanant appts. New Treatment Planning Patient to start the following treatment (No abbreviations): pamidronate Treatment is given every 4 weeks for TBD cycles Additional appointments needed: N/A Additional Scheduling Instructions Offer Chemo Class Provider visit frequency: 4 week(s) Ok to see GLAZIER HELPER/PA: Yes The following treatments/appointments may be scheduled at a [facility] Site: per Pt preference elephone Encounter - Ashlee Joyce RN - 08/24/2019 11:[address] Jones. Per her, ok to override for d ental clearance and for high potassium. Entered RN communication orders for today's infusion . Dr. Jones to follow up on post treatment lab results. Per Dr. Jones, new prescription sent to pharmacy for increased Synthroid. Carlton to advise P t of need to citrus picker new script during infusion.Electronically signed by Ashlee Holley RN at 1 10/25/2018 11:41 AM PSTTelephone Encounter - Ashlee Holley RN - 08/24/2019 10:01 AM PSTReceive d below email from Dr. Jones and, after clarifying Pt identifiers, called infusion for appt. From: Lissette Jones Sent: Saturday, August 24, 2019 10:17 AM To: Mike Marcano <[email or web address]> Subject: RE: RE: Tila Altman_08/24/19 Yes correct. We were going to give her fluids and then recheck BMP Also she should also get pamidronate From: Mike Marcano Sent: Saturday, August 24, 2019 9:59 AM To: Mike Marcano <[email or web address]>; Lissette Jones <[email or web address]> Subject: RE: RE: Tila Altman_08/24/19 Hi, I think I ve found her 63. Correct? Looks like her K+ is high too at 6. Sure she shouldn t go to ED? Otherwise, I ll see wh at I can do. Do you have orders in? ThanksAshlee From: Mike Onc Sent: Saturday, August 24, 2019 9:57 AM To: Lissette Jones <[email or web address]>; Mike Onc <[email or web address]> Subject: RE: RE: Tila Altman_08/24/19 Hi JV, Can you give me a MRN or ? Ashlee Woodruff From: Lissette Jones Sent: Saturday, August 24, 2019 9:44 AM To: Carlton Onc <[email or web address]> Subject: RE: Tila Altman_08/24/19 Hi- checking to see if we can give pamidronate today for this patient, she has symptomatic hypercalcemia Plan in place [place] plan for pamidronate in place. Per systems planner, Pt already scheduled for 1 pm today fo r fluids per conversation with research coordinator, Jose Luis Larsen. Confirmed with Dr. Mitesh christensen that Pt is to receive 1L NS and pamidronate followed by CMP. Called [facility] and obtained urgent auth. Called Pt and advised her that I would send educationa l information via [employer]. Requested Pt review information and call with questions. Pt denies any dental pain or known need for dental work but states that she has not had a d ental evaluation done in 2 years. Explained potential for related jaw necrosis. Message sent to Dr. Jones for ok to override need for dental evaluation and instruction rela juice to potassium level 6.0 on 08/23. Mike Onc will follow up pending provider response.Esme ctronically signed by Ashlee Holley RN at 08/24/2019 11:07 AM PSTdocumented in this encounter Plan of Treatment Not on filedocumented as of this encounter Visit Diagnoses Not on filedocumented in this encounter"
--- OUTSIDE RECORDS SUMMARY | ~2020-06-29 | XMS | Encounter Summary ---
Demographics + + + | Address | [address] | | | [place] [address] | + + + | Home Phone [...] Providers + +------+ + | Care Legal Receptionist Name | Role | Phone | + +------+ + | Lissette Martinez PA-C | PCP | | + +------+ + Encounter Details +--------+ + + + + | Date | Type | Department | Care Team | Description | +--------+ + + + + | 11/22/ | Procedure | Diagnostic Imaging | | | | 2019 | Pass | Services at [facility] | | | | | | [address] | | | | | | [place]igna [place] | | | | | | [address] | | | | | | [place], [place] | | | | | | [address] | | | | | | [phone] | | | +--------+ + + + [...]
--- OUTSIDE RECORDS SUMMARY | ~2020-06-29 | XMS | Encounter Summary ---
Demographics + + + | Address | [address] | | | [place] [address] | + + + | Home Phone [...] Team Providers + +------+ + | Care Equine Pharmacology Technician Name | Role | Phone | [...] [address] | | | | | [address] | [facility] | | | | | Ishan, [facility] floor | [place], [place] | | | | | [facility] [place] | [address] | | | | | [address] | [phone] | | | | | [phone] | | | +--------+ + + + [...]
--- OUTSIDE RECORDS SUMMARY | ~2020-06-29 | XMS | Encounter Summary ---
Demographics + + + | Address | [address] | | | [place] [address] | + + + | Home Phone [...] + | Author | [facility] | | | and Shahram | + + + | Organization | [facility] | | | and [...] + +------+ + | Care Manager Of Warehouse Name | Role | Phone | + [...] | | | [address] | [place] [address] | | | | | [place] [address] | | | | | | [phone] | | | +--------+ + + + [...] + + + | NM BONE SCAN WHOLE | Routin | 08/23/2019 | | Results for this | | BODY | e | 12:00 AM | | procedure are in the | | | | PST | | results section. | + +--------+ + + + documented in this encounter Results NM Bone Scan Whole Body (08/23/2019 12:00 AM PST) + + | Specimen [...]
--- OUTSIDE RECORDS SUMMARY | ~2020-06-29 | XMS | Encounter Summary ---
Demographics + + + | Address | [address] | | | [place] [address] | + + + | Home Phone [...] Team Providers + +------+ + | Care Fork Assembler Name | Role | Phone | + +------+ + | Lissette Martinez PA-C | PCP | | + +------+ + Encounter Details +--------+ + + + + | Date | Type | Department | Care Team | Description | +--------+ + + + + | 11/15/ | Senior Application Security Consultant | [facility] | Lissette Jones, | | | 2019 | | Clinics at S | [place] [address] [address] | | | | | [address] | | | | | [address] [facility] for | [place], [place] | | | | | Health and Healing, | [address] | | | | | [address] | [phone] | | | | | [place], [place] | | | | | | [address] | | | | | | [phone] | | | +--------+ + + + [...]
--- OUTSIDE RECORDS SUMMARY | ~2020-06-29 | XMS | Encounter Summary ---
Demographics + + + | Address | [address] | | | [place] [address] | + + + | Home Phone [...] Team Providers + +------+ + | Care Hospital Chief Financial Officer Name | Role | Phone | [...] + + | 08/24/ | Office | [facility] | Jay JayvillaLissette, | Renal cell carcinoma | | 2019 | Visit | Clinics at S | [place] [address] [address] | of left kidney | | | | [address] | [address] | (HCC) (Primary Dx) | | | | Shaw [facility] for | [place], [place] | | | | | Health and [facility], | [address] | | | | | [place] [address] | [phone] | | | | | [place], [place] | | | | | | [address] | | | | | | [phone] | | | +--------+---------+ + + + [...] CREATININE PLASMA (LAB) 08/23/2019 2.12* EGFR - VENEZUELAN 08/23/2019 29* EGFR NON -VENEZUELAN 08/23/2019 24* SODIUM, PLASMA (LAB) 08/23/2019 137 [...]
--- OUTSIDE RECORDS SUMMARY | ~2020-06-29 | XMS | Encounter Summary ---
Demographics + + + | Address | [address] | | | [place] [address] | + + + | Home Phone [...] Team Providers + +------+ + | Care Animal Science Professor Name | Role | Phone [...] | | Clinics at S | [place] [address] [address] | | | | | [address] | | | | | Shaw [facility] for | [place] [employer], [place] | | | | | Health and Healing, | [address] | | | | | [address] | [phone] | | | | | [place], [place] | | | | | | [address] | | | | | | [phone] | | | +--------+--------+ + + + [...] Jones MD is scheduled on 02/13/20. Last [facility] progress note reviewed. Is there documentation to indicate that medication being r equested has been changed or discontinued? No Allergy list reviewed--Is the medication being requested on the patient's current allergy l ist? No Previous Prescription Details copied below: Date and Time Department Ordering/Authorizing 12/26/2019 2:16 PM [facility] Primary Care at [facility] Laurel Morales MD Outpatient Medication Detail Disp Refills enoxaparin 80 mg/0.8 mL subcutaneous syringe 48 mL 0 Sig: Inject 0.8 mL under the skin (SUBC) every twelve hours. Indications: anticoagulation t reatment Sent to pharmacy as: enoxaparin 80 mg/0.8 mL subcutaneous syringe (LOVENOX) Class: eRx Route: subcutaneous Order: [id number] Per [facility] policy, routing encounter to [facility] for review and approval. elephone Encounter - Anai Jimenez - 01/23/2020 10:44 AM PDTRx Refill: Routing encounter to [place] [facility] for proce ssing.. Pharmacy Name: [facility] Phone #: [phone] -->MA : Please review prescription refill request. Thank you. documented in this encount er Plan of Treatment Not on filedocumented as of this encounter Visit Diagnoses Not on filedocumented in this encounter"
--- OUTSIDE RECORDS SUMMARY | ~2020-06-29 | XMS | Encounter Summary ---
Demographics + + + | Address | [address] | | | [place] [address] | + + + | Home Phone [...] Team Providers + +------+ + | Care Planner Name | Role | Phone | [...] [address] | | | | | [facility] | [place]igna [place], | | | | | [address] | [place] [address] | | | | | [address] | [phone] | | | | | Physician's Pavilion | | | | | | Physician's | | | | | | Pavilion [place], | | | | | | [place] [address] | | | | | | [phone] | | | +--------+ + + + [...] MD, # Subject: RE: Schedule Follow Up Sc Clinic PAS, Please see Dr. Yoon' and [...]
--- OUTSIDE RECORDS SUMMARY | ~2020-06-29 | XMS | Encounter Summary ---
Demographics + + + | Address | [address] | | | [place] [address] | + + + | Home Phone [...] + + + | Author | [facility] | | | and Shahram | + + + | Organization | 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
--- OUTSIDE RECORDS SUMMARY | ~2020-06-29 | XMS | Encounter Summary ---
Demographics + + + | Address | [address] | | | [place] [address] | + + + | Home Phone [...] Team Providers + +------+ + | Care Automotive Dismantler Name | Role | Phone | + [...] | | Clinics at S | [place] [address] [address] | | | | | [address] | | | | | Shaw [facility] for | [place], [place] | | | | | Health and Healing, | [address] | | | | | [address] | [phone] | | | | | [place], [place] | | | | | | [address] | | | | | | [phone] | | | +--------+ + + + [...]
--- OUTSIDE RECORDS SUMMARY | ~2020-06-29 | XMS | Encounter Summary ---
Demographics + + + | Address | [address] | | | [place] [address] | + + + | Home Phone [...] Team Providers + +------+ + | Care Building Maintenance Custodian Name | Role | Phone | + [...] Encounter | Clinics at S | [place] [address] [address] | Tab | | | | [address] | | | | | Shaw [facility] for | [place], [place] | | | | | Health and Healing, | [address] | | | | | [facility] 2 | [phone] | | | | | [place], [place] | | | | | | [address] | | | | | | [phone] | | | +--------+ + + + [...] her that prescription has been transferred to [facility]. Explained that once the [...] Asks for it to be sent to [facility] in [place] Routing to [facility] and Rx docum ented in this encounter Plan of Treatment Not on filedocumented as of this encounter Visit Diagnoses Not on filedocumented in this encounter"
--- OUTSIDE RECORDS SUMMARY | ~2020-06-29 | XMS | Encounter Summary ---
Demographics + + + | Address | [address] | | | [place] [address] | + + + | Home Phone [...] Providers + +------+ + | Care Leather Cutter Name | Role | Phone | [...] | | Clinics at S | [place] [address] [address] | Refill Request | | | | [address] | | | | | Shaw [facility] for | [place], [place] | | | | | Health and Healing, | [address] | | | | | [address] | [phone] | | | | | [place], [place] | | | | | | [address] | | | | | | [phone] | | | +--------+--------+ + + + [...] routed to Dr. Jones to resign eRx. Gonzales O nc will follow up as needed. elephone Encounter - Sara Delgadillo - 02/03/2020 9:35 AM PDTPatient calling in, states that she will be running o ut of Oxycodone 5 Mg by tomorrow morning, but she just spoke with her pharmacy, [facility], and they do not have script yet. PAS sees "Print Prescription" for medication on 01/31, so reassured patient that medication in final stages and will get urgent message to team that patient needs to last picker prescripti on today; patient very appreciative. [...] and Time Department Ordering/Authorizing 01/19/2020 9:[address] [facility] Lissette Jones MD Outpatient Medication Detail Disp Refills oxyCODONE (immediate release) 5 mg oral tablet 60 tablet 0 Sig: Take 1 tablet by mouth every four hours as needed for breakthrough pain. Sent to pharmacy as: oxyCODONE 5 mg tablet (ROXICODONE) Class: eRx Earliest Fill Date: 01/19/2020 Route: oral Order: [id number] E-Prescribing Status: Receipt confirmed by pharmacy (01/19/2020 9:52 AM PDT) Per [facility] policy, routing encounter to [facility] for review and approval. elephone Encounter - aCrlo Navas - 01/31/2020 2:58 PM PDTPatient left [...] category of medication [facility] Name of medication: Oxycodone Dose: 5 mg Frequency - How often are you taking it?: 4 tablets per day How much of the prescription do you have left - When will you run out?: 3 days' worth left Pharmacy the patient wants the prescription refilled at: [id number] - [place], [place] - [address] [phone] Is it ok to leave a confidential [...]
--- OUTSIDE RECORDS SUMMARY | ~2020-06-29 | XMS | Encounter Summary ---
Demographics + + + | Address | [address] | | | [place] [address] | + + + | Home Phone | | + + + | Preferred Language | Unknown | + + + | Marital Status | | + + + | Uatsdin Affiliation | 1013 | + + + | Race | or Other | + + + | Ethnic Group | Not or | + + + Author + + + | Author | [facility] | | | and Shahram | + + + | Organization | [facility] | | [...] Team Providers + +------+ + | Care Parquetry Layer Name | Role | Phone | + +------+ + | Lissette Martinez | PCP | | | RADHA | | | + +------+ + Encounter Details +--------+ + + + + | Date | Type | Department | Care Team | Description | +--------+ + + + + | 12/06/ | Hospital | [facility] | Aileen Denson | | | 2020 | Encounter | MED CTR RADIATION | MD [address] | | | | | ONCOLOGY [address] | [facility], [place] | | | | | [facility], | [address] | | | | | [place] [address] | | | | | | [phone] | | | +--------+ + + + [...]
--- OUTSIDE RECORDS SUMMARY | ~2020-06-29 | XMS | Clinical Summary ---
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
--- OUTSIDE RECORDS SUMMARY | ~2020-06-29 | XMS | Encounter Summary ---
Demographics + + + | Address | [address] | | | [place] [address] | + + + | Home Phone [...] Providers + +------+ + | Care Lead Burner Apprentice Name | Role | Phone | [...] | neoplasm of | RADHA Curran | [address] | | | | | unspecified | [place] | [address] | | | | | kidney, | Family | [place], | | | | | except renal | Medicine | [place] [address] | | | | | pelvis | [address] | Phone: | | | | | Procedures | [address] | [phone] | | | | | [place] NEW | [place], | Fax: | | | | | PATIENT | [place] [address] | [phone] | | | | | LEVEL V GA | Phone: | | | | | | EST PATIENT | [phone] | | | | | | LEVEL V | Fax: | | | | | | | [phone] | | + +---------+ + + + + Encounter Details +--------+ + + + + | Date | Type | Department | Care Team | Description | +--------+ + + + + | 08/23/ | Hospital [facility] | [address] | | | 2019 | Encounter | Clinics at S | [address] [place], [place] | | | | | [address] | [address] | | | | | [address] [place] for | | | | | | Health and Healing, | | | | | | [address] | | | | | | [place], [place] | | | | | | [address] | | | | | | [phone] | | | +--------+ + + + [...]
--- OUTSIDE RECORDS SUMMARY | ~2020-06-29 | XMS | Encounter Summary ---
Demographics + + + | Address | [address] | | | [place] [address] | + + + | Home Phone [...] Providers + +------+ + | Care Machine Printer Hose Name | Role | Phone | + [...] [address] | | | | | [address] | [facility] | | | | | Ishan, [facility] floor | [place], [place] | | | | | [place], [place] | [address] | | | | | [address] | [phone] | | | | | [phone] | | | +--------+ + + + [...]
--- OUTSIDE RECORDS SUMMARY | ~2020-06-29 | XMS | Encounter Summary ---
Demographics + + + | Address | [address] | | | [place] [address] | + + + | Home Phone [...] Team Providers + +------+ + | Care Finisher Hot Strip Name | Role | Phone | + +------+ + | Lissette Martinez PA-C | PCP | | + +------+ + Encounter Details +--------+ + + + + | Date | Type | Department | Care Team | Description | +--------+ + + + + | 03/26/ | Pharmacy | [facility] | | | | 2020 | Visit | [facility] | | | | | | [address] | | | | | | Mailcode: [place] | | | | | | [facility] and | | | | | | Healing, [address] | | | | | | [place], [place] | | | | | | [address] | | | | | | [phone] | | | +--------+ + + + [...]
--- OUTSIDE RECORDS SUMMARY | ~2020-06-29 | XMS | Encounter Summary ---
Demographics + + + | Address | [address] | | | [place] [address] | + + + | Home Phone [...] Team Providers + +------+ + | Care Kiln Burner Name | Role | Phone | [...]
--- OUTSIDE RECORDS SUMMARY | ~2020-06-29 | XMS | Encounter Summary ---
Demographics + + + | Address | [address] | | | [place] [address] | + + + | Home Phone [...] Team Providers + +------+ + | Care Ironworker Name | Role | Phone | + [...] | | Clinics at S | [place] [address] [address] | Adjustment | | | | [address] | | | | | [facility] for | [place], [place] | | | | | Health and Healing, | [address] | | | | | Building [address] | [phone] | | | | | [place], [place] | | | | | | [address] | | | | | | [phone] | | | +--------+ + + + [...] sent to local pharmacy. Pt notified via [employer] El ectronically signed by Giovanna Tomas RN at 10/11/2019 2:17 PM PSTTelephone Encounter - Giovanna Tomas RN - 10/11/2019 1:10 PM PSTTSH 18.4 on 10/10/19. Called pt who confirms she is taking le vothyroxine 137 mcg daily. Advised pt Dr. Jones would likely want to increase her dose and we can notify her when new script sent via [employer]. Pt would like script to be sent to [facility] in [place]. Routed to Dr. Jones for review. P M PSTdocumented in this encounter Plan of Treatment Not on filedocumented as of this encounter Visit Diagnoses Not on filedocumented in this encounter"
--- OUTSIDE RECORDS SUMMARY | ~2020-06-29 | XMS | Encounter Summary ---
Demographics + + + | Address | [address] | | | [place] [address] | + + + | Home Phone [...] Team Providers + +------+ + | Care Equalizer Operator Name | Role | Phone | [...] | | | | | metastases | [address] | [address] | | | | | ([facility]) | Angelito Rosa | [address] | | | | | Procedures | [address] | [address] [place], | | | | | SIMULATION | [place] | [place] | | | | | IMAGING | [address] | [address] | | | | | | Phone: | Phone: | | | | | | [phone] | [phone] | | | | | | Fax: | Fax: | | | | | | [phone] | [phone] | +--------+--------+ + + + + Reason [...] | | | | | metastases | [address] | [address] [facility] | | | | | ([facility]) | Angelito Rosa | [address] | | | | | Procedures | [address] | [address] [place], | | | | | SIMULATION | [place] | [place] | | | | | IMAGING | [address] | [address] | | | | | | Phone: | Phone: | | | | | | [phone] | [phone] | | | | | | Fax: | Fax: | | | | | | [phone] | [phone] | +--------+--------+ + + + + Encounter Details +--------+ + + + + | Date | Type | Department | Care Team | Description | +--------+ + + + + | 03/06/ | Hospital | Radiation Oncology | | | | 2020 | Encounter | at [facility] [address] | | | | | | [address] | | | | | | [address] | | | | | | [place], [place] | | | | | | [address] | | | | | | [phone] | | | +--------+ + + + [...]
--- OUTSIDE RECORDS SUMMARY | ~2020-06-29 | XMS | Encounter Summary ---
Demographics + + + | Address | [address] | | | [place] [address] | + + + | Home Phone | | + + + | Preferred Language | Unknown | + + + | Marital Status | | + + + | Holiness Affiliation | 1013 | + + + | Race | or Other | + + + | Ethnic Group | Not or | + + + Author + + + | Author | [facility] [place] [facility] | | | and Shahram | + + + | Organization | [facility] [place] [facility] | [...] Providers + +------+ + | Care Supervisor Functional Testing Name | Role | Phone | + [...] | | | [address] | [place] [address] | | | | | [place] [address] | | | | | | [phone] | | | +--------+ + + + [...]
--- OUTSIDE RECORDS SUMMARY | ~2020-06-29 | XMS | Encounter Summary ---
Demographics + + + | Address | [address] | | | [place] [address] | + + + | Home Phone [...] Team Providers + +------+ + | Care Laborer Shellfish Processing Name | Role | Phone | + [...]
--- OUTSIDE RECORDS SUMMARY | ~2020-06-29 | XMS | Encounter Summary ---
Demographics + + + | Address | [address] | | | [place] [address] | + + + | Home Phone | | + + + | Preferred Language | Unknown | + + + | Marital Status | | + + + | Evangelical Affiliation | 1013 | + + + | Race | or Other | + + + | Ethnic Group | Not or | + + + Author + + + | Author | [facility] | | | and Shahram | + + + | Organization | [facility] | | | and Marcana [...] Team Providers + +------+ + | Care Wort Extractor Name | Role | Phone | + +------+ + PCP | Unavailable | + +------+ + Encounter Details +--------+ + + + + | Date | Type | Department | Care Team | Description | +--------+ + + + + | 05/18/ | Hospital | [facility] | | | | 2001 - | Encounter | MED CTR CANCER | | | | | | CENTER [address] | | | | 08/16/ | | [place] | | | | 2001 | | [address] | | | | | | [phone] | | | +--------+ + + + [...]
--- OUTSIDE RECORDS SUMMARY | ~2020-06-29 | XMS | Encounter Summary ---
Demographics + + + | Address | [address] | | | [place] [address] | + + + | Home Phone [...] Team Providers + +------+ + | Care Flame Cutting Supervisor Name | Role | Phone | [...] | | | | | carcinoma, | [address] | [address] | | | | | unspecified | Angelito Rosa | [facility] | | | | | laterality | [address] | [address] [place], | | | | | ([facility]) | [place] | [place] | | | | | Procedures | [address] | [address] | | | | | SIMULATION | Phone: | Phone: | | | | | IMAGING | [phone] | [phone] | | | | | SBRT | Fax: | Fax: | | | | | | [phone] | [phone] | +--------+--------+ + + + + Encounter Details +--------+ + + + + | Date | Type | Department | Care Team | Description | +--------+ + + + + | 02/23/ | Transcribe | Radiation Oncology | Antwon Beard, | | | 2020 | Orders | at [facility] [address] | [address] [facility] | | | | | [address] | [facility] | | | | | Ish[place], [address] [place] [address] | [place], [place] | | | | | [place], [place] | [address] | | | | | [address] | [phone] | | | | | [phone] | | | +--------+ + + + [...]
--- OUTSIDE RECORDS SUMMARY | ~2020-06-29 | XMS | Encounter Summary ---
Demographics + + + | Address | [address] | | | [place] [address] | + + + | Home Phone [...] Team Providers + +------+ + | Care Event Specialist Product Demonstrator Name | Role | Phone | + +------+ + | Lissette Martinez PA-C | PCP | | + +------+ + Encounter Details +--------+ + + + + | Date | Type | Department | Care Team | Description | +--------+ + + + + | 05/29/ | Telephone | [facility] | Lissette Jones, | | | 2019 | | Clinics at S | [place] [address] [address] | | | | | [address] | | | | | [facility] for | [place], [place] | | | | | Health and Healing, | [address] | | | | | [facility] 2 | [phone] | | | | | [place], [place] | | | | | | [address] | | | | | | [phone] | | | +--------+ + + + [...]
--- OUTSIDE RECORDS SUMMARY | ~2020-06-29 | XMS | Encounter Summary ---
Demographics + + + | Address | [address] | | | [place] [address] | + + + | Home Phone | | + + + | Preferred Language | Unknown | + + + | Marital Status | | + + + | Sabianism Affiliation | 1013 | + + + | Race | or Other | + + + | Ethnic Group | Not or | + + + Author + + + | Author | [facility] | | | and Shahram | + + + | Organization | [facility] | | | and [...] Team Providers + +------+ + | Care Grout Pump Operator Name | Role | Phone | + +------+ + PCP | Unavailable | + +------+ + Encounter Details +--------+ + + + + | Date | Type | Department | Care Team | Description | +--------+ + + + + | 12/27/ | Hospital | [facility] | | | | 2002 - | Encounter | MED CTR CANCER | | | | | | CENTER [address] | | | | 05/04/ | | [place] | | | | 2002 | | [address] | | | | | | [phone] | | | +--------+ + + + [...]
--- OUTSIDE RECORDS SUMMARY | ~2020-06-29 | XMS | Encounter Summary ---
Demographics + + + | Address | [address] | | | [place] [address] | + + + | Home Phone [...] Team Providers + +------+ + | Care Insulation Supervisor Name | Role | Phone | [...] | | Clinics at S | [place] [address] [address] | | | | | [address] | [address] | | | | | [facility] for | [place], [place] | | | | | Health and Healing, | [address] | | | | | [address] | [phone] | | | | | [place], [place] | | | | | | [address] | | | | | | [phone] | | | +--------+--------+ + + + [...] nausea (patient has a 3-hour drive from [place], gets motion sickne ss normally and it's exacerbated by the chemo). Asks for another one for this appointment, please - would like to pick it up at the [facility] in [place] before they leave for [place] on Saturday 11/18. Routing to RNC and MD docum ented in this encounter Plan of Treatment Not on filedocumented as of this encounter Visit Diagnoses Not on filedocumented in this encounter"
--- OUTSIDE RECORDS SUMMARY | ~2020-06-29 | XMS | Encounter Summary ---
Demographics + + + | Address | [address] | | | [place] [address] | + + + | Home Phone [...] Team Providers + +------+ + | Care Logging Shovel Operator Name | Role | Phone | [...] | | Clinics at S | [place] [address] [address] | | | | | [address] | | | | | [facility] for | [place], [place] | | | | | Health and Healing, | [address] | | | | | Building 2 | [phone] | | | | | [place], [place] | | | | | | [address] | | | | | | [phone] | | | +--------+ + + + [...]
--- OUTSIDE RECORDS SUMMARY | ~2020-06-29 | XMS | Encounter Summary ---
Demographics + + + | Address | [address] | | | [place] [address] | + + + | Home Phone [...] Team Providers + +------+ + | Care Mcat Instructor Name | Role | Phone | [...] | | Clinics at S | [place] [address] | | | | | [address] | [address] | | | | | [facility] for | [place], [place] | | | | | Health and Healing, | [address] | | | | | Building [address] | [phone] | | | | | [place], [place] | | | | | | [address] | | | | | | [phone] | | | +--------+ + + + [...] RN - 11/01/2019 2:33 PM PSTCall to [facility] in [facility]. Confirmed rx is for levothyroxine 175 mcg tab daily. elephone Encounter - Belem Ovalles RN - 11/01/2019 10:07 AM PSTRouted to [facility] - renal cell CA patient. elephone Encounter - Irene Graham - 11/01/2019 9:40 AM PSTGener al Message: What is your request today?: Herbert ([facility]) called with a question on the [...]
--- OUTSIDE RECORDS SUMMARY | ~2020-06-29 | XMS | Encounter Summary ---
Demographics + + + | Address | [address] | | | [place] [address] | + + + | Home Phone [...] Team Providers + +------+ + | Care Cod Clerk Name | Role | Phone | [...] | | | carcinoma of | [place] [address] | [address] | | | | | left kidney | [place] | Center for | | | | | ([facility]) | Ct | Health and | | | | | Procedures | [place], | Healing, | | | | | CT CHEST, | [place] | Building 1, | | | | | ABDOMEN AND | [address] | 3rd Floor | | | | | PELVIS W IV | Phone: | [place], [place] | | | | | [place] | [phone] | [address] | | | | | CAT SCAN OF | Fax: | Phone: | | | | | CHEST | [phone] | [phone] | | | | | [place] | | Fax: | | | | | [place] | | [phone] | | | | | ABDOMEN&PELV | [...] | | Clinics at S | [place] [address] | | | | | [address] | [address] | | | | | [facility] for | [place], [place] | | | | | Health and Healing, | [address] | | | | | Building 2 | [phone] | | | | | [place], [place] | | | | | | [address] | | | | | | [phone] | | | +--------+ + + + [...] shawn ling to get it done at [facility]. Obtained authorization for scan to be done [...] Confirms they should go to fax number [phone]. LIZZ relays that we are still working [...] Placed f or CT scan locally --> [facility] TC: Please fax CT orders to [facility] --> [facility] Demonstration Agent: Please schedule follow up for the week [...] MD Ariana Roberts RN Cc: [facility]; [facility] Sched ule Caller: Unspecified (Today, 10:49 AM) [...] will clarify CT orders and fax to [facility] in [facility] as requested. Informed her she should receive a call from [facility] to lai mireles. She is in agreement with this plan and has no further questions at this time. Routed to Dr. Jones for advisement. 20 12:04 PM PDTTelephone Encounter - Carlo Navas - 01/18/2020 10:46 AM PDTPatient calls, asks to schedule next Lab/MD/Infusion appointment. She is due on 02/05, and Dr. Jones is not a vailable that day. Please advise diesel powerplant supervisor. Patient is also due for a CT. Asks if the CT can be done locally, at [facility] in [facility]. Routing to Schedule Routing to RNC documented i n this encounter Plan of Treatment Not on filedocumented as of this encounter Visit Diagnoses + + | Diagnosis | + + | 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
--- OUTSIDE RECORDS SUMMARY | ~2020-06-29 | XMS | Encounter Summary ---
Demographics + + + | Address | [address] | | | [place] [address] | + + + | Home Phone [...] Team Providers + +------+ + | Care Professional Soccer Player Name | Role | Phone | + [...] | | Clinics at S | [place] [address] [address] | | | | | [address] | [address] | | | | | [facility] for | [place], [place] | | | | | Health and [facility], | [address] | | | | | [place] [address] | [phone] | | | | | [place], [place] | | | | | | [address] | | | | | | [phone] | | | +--------+ + + + [...] and that she needs to call the [facility] to schedule her CT scan. Will [...] have ot make the drive up to [place] unless insurance does not give authorization. Can we get auth for local scans and notify apparel designer once approval has come through?Electro nically signed by Lito Keyes at 02/14/2020 1:29 PM PDTTelephone Encounter - Khushboo Jimenez - 02/14/2020 12:19 PM PDTTeam Coordinator Documentation: Subject: Note TC: [facility] messaged back "location updated" for patients CT scan order. Routing to Dr. Jones/ Philip PRATT/ Mike apparel designer to have patient scheduled for CT scan -->Note to RNCasey: HOMA elephone Encounter - Anai Toribio - 02/13/2020 10:57 AM PDTTeam Coordinator Documentation: Subject: Note TC: Sent [employer] message to retrieve auth for [facility], will update when [employer] messages back -->Note to RNC: Homa documented in this encount er Plan of Treatment Not on filedocumented as of this encounter Visit Diagnoses Not on filedocumented in this encounter
--- OUTSIDE RECORDS SUMMARY | ~2020-06-29 | XMS | Encounter Summary ---
Demographics + + + | Address | [address] | | | [place] [address] | + + + | Home Phone [...] Author + + + | Author | [facility] | | | and Shahram | + + + | Organization | [facility] | | | and Marcana [...] Team Providers + +------+ + | Care Black Jack Dealer Name | Role | Phone | + [...] | | | [address] | [place] [address] | | | | | [place] [address] | | | | | | [phone] | | | +--------+ + + + [...]
--- OUTSIDE RECORDS SUMMARY | ~2020-06-29 | XMS | Encounter Summary ---
Demographics + + + | Address | [address] | | | [place] [address] | + + + | Home Phone [...] Author + + + | Author | [facility] | | | and Shahram | + + + | Organization | [facility] | [...] Team Providers + +------+ + | Care Lion Trainer Name | Role | Phone | [...] | | | | | [address] | [place] [address] | | | | | [place] [address] | | | | | | [phone] | | | +--------+ + + + [...]
--- OUTSIDE RECORDS SUMMARY | ~2020-06-29 | XMS | Encounter Summary ---
Demographics + + + | Address | [address] | | | [place] [address] | + + + | Home Phone [...] Team Providers + +------+ + | Care Content Management Specialist Name | Role | Phone | [...] + + | 09/20/ | Telephone | [facility] | Lissette Jones, | Lab Results (K and | | 2019 | | Clinics at S | [place] [address] [address] | T[facility]) | | | | [address] | | | | | [facility] for | [place], [place] | | | | | Health and Healing, | [address] | | | | | [facility] 2 | [phone] | | | | | [place], [place] | | | | | | [address] | | | | | | [phone] | | | +--------+ + + + [...] released the results for her review in [employer], but we will also fax the labs [...]
--- OUTSIDE RECORDS SUMMARY | ~2020-06-29 | XMS | Encounter Summary ---
Demographics + + + | Address | [address] | | | [place] [address] | + + + | Home Phone [...] Providers + +------+ + | Care Computer Systems Analyst Name | Role | Phone | [...] [address] | Adjustment | | | | [address] | [facility] [address] | (dexamethasone | | | | Pavilion, 4th floor | [place], [place] | taper) | | | | [place], [place] | [address] | | | | | [address] | [phone] | | | | | [phone] | | | +--------+ + + + [...] 03/15/2020 4:11 PM PDTSpoke with Tila via [employer]. Gave her the verbal instructions for dexamethasone taper. Tila requested that I send her these instructions via [employer] which I did. Also eRx'd 2mg dexamethasone tabs to [facility] pharmacy. No further questions. TTelephone Encounter - [...]
--- OUTSIDE RECORDS SUMMARY | ~2020-06-29 | XMS | Encounter Summary ---
Demographics + + + | Address | [address] | | | [place] [address] | + + + | Home Phone [...] Providers + +------+ + | Care Guest Services Lead Name | Role | Phone | + [...] | | | carcinoma [place] | [place] [address] [address] | [address] | | | | | left kidney | [address] | [address] | | | | | (HCC) | Ct | Center for | | | | | 09/19/19-05/08 | [place], | Health and | | | | | 12/2019 | [place] | Healing, | | | | | cycles 1-4 q | [address] | Building 2 | | | | | 21 days | Phone: | [place], [place] | | | | | Nivolumab - | [phone] | [address] | | | | | Ipilimumab | Fax: | Phone: | | | | | - cycles | [phone] | [phone] | | | | | 5-14 q14 | | Fax: | | | | | days | | [phone] | | | | | Procedures | | | | | | | OR INJ | | | | | | | NIVOLUMAB 1 | | | | | | | MG OR INJ | | | | | | | IPILIMUMAB, | | | | | | | 1 MG OR | | | | | | | CHM,IV | | | | | | | INFSN,1 HR | | | | | | | OR CHM,IV | | | | | | | INFSN,ADDL | | | | | | | HR OR CHM | | | | | | [...] + + | 10/10/ | Hospital | [facility] | [address] | | | 2020 | Encounter | Clinics at S | Ave [place], [place] | | | | | [facility] [address] | [address] | | | | | [facility] for | | | | | | Health and Healing, | | | | | | Building 2 | | | | | | [place], [place] | | | | | | [address] | | | | | | [phone] | | | +--------+ + + + [...] tightness in her chest. Nivolumab nfusion stopped, customer solutions representative provid er, paged, fluids started, and infusion [...] & affect appropriate a nd discharged with family/over the road driver and ambulatory. Refer to MAR and [...]
--- OUTSIDE RECORDS SUMMARY | ~2020-06-29 | XMS | Encounter Summary ---
Demographics + + + | Address | [address] | | | [place] [address] | + + + | Home Phone [...] Team Providers + +------+ + | Care Carton Inspector Name | Role | Phone | [...] | | | | cancer, | [place] [address] [address] | | | | | | primary, | [place] | | | | | | with | Ct | | | | | | metastasis | [place], | | | | | | from kidney | [place] | | | | | | to other | [address] | | | | | | site, left | Phone: | | | | | | (HCC) | [phone] | | | | | | Procedures | Fax: | | | | | | [place] BONE &/[place] | [phone] | | | | | | JOINT [...] | | | Kidney | [place], | [facility] [address] | | | | | cancer, | [place] [address] [address] | [address] | | | | | primary, | [place] | [address] | | | | | with | Ct | [place]as, | | | | | metastasis | [place], | Basement | | | | | from kidney | [place] | [place], [place] | | | | | to other | [address] | [address] | | | | | site, left | Phone: | Phone: | | | | | (HCC) | [phone] | [phone] | | | | | Procedures | Fax: | Fax: | | | | | [place] BONE &/[place] | [phone] | [phone] | | | | | JOINT | | | | | | | IMAGING | | | | | | | WHOLE BODY | | | | | | | OR BONE | | | | | | [...] | | 2019 | Encounter | at [facility] [address] | [address] | | | | | [address] | [address] | | | | | [place]as, | [facility] [place] | | | | | [place], | [address] | | | | | [place] [address] | [phone] | | | | | [phone] | | | +--------+ + + + [...]
--- OUTSIDE RECORDS SUMMARY | ~2020-06-29 | XMS | Encounter Summary ---
Demographics + + + | Address | [address] | | | [place] [address] | + + + | Home Phone [...] Team Providers + +------+ + | Care Register In Chancery Name | Role | Phone | + [...] | 12/11/ | Clinical | Laboratory at [facility] | | Lab Draw | | 2020 | Support | [address] | | | | | Staff | [facility] | | | | | | and Healing, | | | | | | [address] | | | | | | [place], [place] | | | | | | [address] | | | | | | [phone] | | | +--------+ + + + [...] | | | | PDT | kidney ([facility]) | results section. | + +--------+ + + + | [facility] - COMPLETE | Routin | 12/12/2019 | Renal cell | Results for this | | METABOLIC SET | e | 9:08 AM | carcinoma of left | procedure are in the | | | | PDT | kidney ([facility]) | results section. | + +--------+ + + + | FREE T4 | Routin | 12/12/2019 | Renal cell | Results for this | | | e | 9:08 AM | carcinoma of left | procedure are in the | | | | PDT | kidney ([facility]) | results section. | + +--------+ + [...] [facility] | [address] | [place] [address] | | | SERVICES, CORE | [address] [...] | + + + + + | [facility] | [address] | [place] [address] | | | SERVICES, CORE | MELBA [...] | + + + + + | [facility] | [address] | [place] [address] | | | SERVICES, CORE | [address] | | | + + + + + H - COMPLETE METABOLIC SET (12/12/2019 9:08 AM [...] | | | LABORATORY | | | NIUEAN | | | SERVICES, | | | [...] | [facility] | [address] | [place] [address] | | | SERVICES, [place] FOR | | | | | HEALTH + HEALING | | | | + + + + + CBC AND AUTO DIFF - [facility] (12/12/2019 9:08 AM PDT) + + + [...] | + + + + + | [facility] | [address] | [place] [address] | | | [facility] | | | | | HEALTH + HEALING | | | | + + + + + documented in this encounter Visit Diagnoses + + | Diagnosis | + + | 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
--- OUTSIDE RECORDS SUMMARY | ~2020-06-29 | XMS | Encounter Summary ---
Demographics + + + | Address | [address] | | | [place] [address] | + + + | Home Phone [...] Providers + +------+ + | Care Wood Room Hand Name | Role | Phone | + +------+ + | Lissette Martinez PA-C | PCP | | + +------+ + Encounter Details +--------+ + + + + | Date | Type | Department | Care Team | Description | +--------+ + + + + | 03/20/ | Pharmacy | Pharmacy @ [facility] | | | | 2020 | Visit | [address] | | | | | | [address] Mailcode: | | | | | | [facility] | | | | | | and Healing, | | | | | | Building 2 | | | | | | [place], [place] | | | | | | [address] | | | +--------+ + + + [...]
--- OUTSIDE RECORDS SUMMARY | ~2020-06-29 | XMS | Encounter Summary ---
Demographics + + + | Address | [address] | | | [place] [address] | + + + | Home Phone [...] + + + | Author | [facility] | | | and Shahram | + + + | Organization | [facility] | | | and Marcana [...] Team Providers + +------+ + | Care Operations General Agent Name | Role | Phone | [...] W | | | | | | [place], | | | | | | [place] [address] | | | | | | [phone] | | | +--------+ + + + [...] Wallis OT - 12/27/2019 11:33 AM [facility] [address] [place] [address] Oncology Rehab Screening Date: 12/27/2019 Patient Information [...] LE edema when appropriate. Patient lives in [place]; could receive tx at [facility]. Patient is agreeable to this plan. Onc [...]
--- OUTSIDE RECORDS SUMMARY | ~2020-06-29 | XMS | Encounter Summary ---
Demographics + + + | Address | [address] | | | [place] [address] | + + + | Home Phone [...] Team Providers + +------+ + | Care Bottom Liner Name | Role | Phone | + +------+ + | Lissette Martinez PA-C | PCP | | + +------+ + Encounter Details +--------+ + + + + | Date | Type | Department | Care Team | Description | +--------+ + + + + | 02/23/ | MyChart | Diagnostic Imaging | | MRI Screening Form | | 2020 | Encounter | Services [address] | | | | | | [address] | | | | | | [place], [place] | | | | | | [address] | | | +--------+ + + + [...]
--- OUTSIDE RECORDS SUMMARY | ~2020-06-29 | XMS | Encounter Summary ---
Demographics + + + | Address | [address] | | | [place] [address] | + + + | Home Phone [...] Team Providers + +------+ + | Care Silk Winding Machine Operator Name | Role | Phone | + +------+ + | Lissette Martinez PA-C | PCP | | + +------+ + Encounter Details +--------+ + + + + | Date | Type | Department | Care Team | Description | +--------+ + + + + | 01/08/ | Clinical | Laboratory at [facility] | | | | 2020 | Support | [address] | | | | | Staff | [facility] | | | | | | and Healing, | | | | | | [address] | | | | | | [place], [place] | | | | | | [address] | | | | | | [phone] | | | +--------+ + + + [...] | | | PDT | kidney ([facility]) | results section. | + +--------+ + + + documented in this encounter Results [facility] - COMPLETE METABOLIC SET [...] | | | LABORATORY | | | [place] | | | SERVICES, | | | [...] LABORATORY | [address] | [place] [address] | | | SERVICES, [facility] | | | | | HEALTH [...] | + + + + + | [facility] | [address] | [place] [address] | | | [facility] | | | | | HEALTH + HEALING | | | | + + + + + documented in this encounter Visit Diagnoses + + | Diagnosis | + + | 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
--- OUTSIDE RECORDS SUMMARY | ~2020-06-29 | XMS | Encounter Summary ---
Demographics + + + | Address | [address] | | | [place] [address] | + + + | Home Phone [...] Team Providers + +------+ + | Care Dewaxer Name | Role | Phone | + +------+ + | Lissette Martinez PA-C | PCP | | + +------+ + Encounter Details +--------+ + + + + | Date | Type | Department | Care Team | Description | +--------+ + + + + | 11/22/ | Industrial Photographer | Jamarcus Guillen | Peggy Yoon, | Hypothyroidism, | | 2020 | | Diabetes Health | [address] | unspecified type | | | | [facility] | [address] | (Primary Dx); | | | | [address] | [place], [place] | [place] | | | | [address] | [address] | insufficiency ([facility]) | | | | Physician's Pavilion | [phone] | | | | | Physician's | | | | | | [facility], | | | | | | [place] [address] | | | | | | [phone] | | | +--------+ + + + [...]
--- OUTSIDE RECORDS SUMMARY | ~2020-06-29 | XMS | Encounter Summary ---
Demographics + + + | Address | [address] | | | [place] [address] | + + + | Home Phone [...] Team Providers + +------+ + | Care Civil Engineering Professional Name | Role | Phone | + +------+ + | Lissette Martinez PA-C | PCP | | + +------+ + Encounter Details +--------+ + + + + | Date | Type | Department | Care Team | Description | +--------+ + + + + | 01/08/ | Clinical | Laboratory at [facility] | | | | 2020 | Support | [address] | | | | | Staff | [facility] | | | | | | and Healing, | | | | | | [address] | | | | | | [place], [place] | | | | | | [address] | | | | | | [phone] | | | +--------+ + + + [...] | | | | PDT | kidney ([facility]) | results section. | + +--------+ + + + documented in this encounter Results [facility] - COMPLETE METABOLIC SET (01/09/2020 8:49 [...] | | | LABORATORY | | | [facility] | | | SERVICES, | | | [...] MDRD equation recommended by the National | [facility] | | Kidney Disease Education Program. Estimated [...] LABORATORY | [address] | [place] [address] | | | SERVICES, [facility] | | | | | HEALTH [...] | + + + + + | [facility] | [address] | [place] [address] | | | [facility] | | | | | HEALTH + HEALING | | | | + + + + + documented in this encounter Visit Diagnoses + + | Diagnosis | + + | 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
--- OUTSIDE RECORDS SUMMARY | ~2020-06-29 | XMS | Encounter Summary ---
Demographics + + + | Address | [address] | | | [place] [address] | + + + | Home Phone [...] Providers + +------+ + | Care Kinesiology Internship Name | Role | Phone | [...] | neoplasm of | RADHA Curran | [address] | | | | | unspecified | [place] | [address] | | | | | kidney, | Family | [place], | | | | | except renal | Medicine | [place] [address] | | | | | pelvis | [address] | Phone: | | | | | Procedures | [address] | [phone] | | | | | [place] NEW | [place], | Fax: | | | | | PATIENT | [place] [address] | [phone] | | | | | LEVEL V [place] | Phone: | | | | | | EST PATIENT | [phone] | | | | | | LEVEL V | Fax: | | | | | | | [phone] | | + +---------+ + + + + Encounter Details +--------+ + + + + | Date | Type | Department | Care Team | Description | +--------+ + + + + | 12/11/ | Telephone-S | [facility] | Lissette Ortiz, | | | 2019 | cheduled | Clinics at S | [place] [address] [address] | | | | | [facility] [address] | | | | | [facility] for | [place], [place] | | | | | Health and Healing, | [address] | | | | | [address] | [phone] | | | | | [place], [place] | | | | | | [address] | | | | | | [phone] | | | +--------+ + + + [...]
--- OUTSIDE RECORDS SUMMARY | ~2020-06-29 | XMS | Encounter Summary ---
Demographics + + + | Address | [address] | | | [place] [address] | + + + | Home Phone [...] Team Providers + +------+ + | Care Patient Ombudsperson Name | Role | Phone | + [...] at S | [place] [address] [address] | voicemail requesting | | | | [facility] [address] | call back about a | | | | [facility] for | [place], [place] | prescription ) | | | | Health and Healing, | [address] | | | | | [place] [address] | [phone] | | | | | [place], [place] | | | | | | [address] | | | | | | [phone] | | | +--------+--------+ + + + [...] RN - 10/17/2019 12:44 PM [facility] [place] Pharmacists state s Dr. Jones can send [...]
--- OUTSIDE RECORDS SUMMARY | ~2020-06-29 | XMS | Encounter Summary ---
Demographics + + + | Address | [address] | | | [place] [address] | + + + | Home Phone [...] Team Providers + +------+ + | Care Pipeline Integrity Engineer Name | Role | Phone | [...] fracture of | Roshan Frederick | [place] | | | | | L2 lumbar | Digna Rebolledo | Antonio Coreas | | | | | vertebra, | [place], [place] | [place], [place] | | | | | initial | [address] | [address] Phone: | | | | | encounter | Phone: | [phone] | | | | | ([facility]) Renal | [phone] | | | | | | cell | Fax: | | | | | | carcinoma of | [phone] | | | | | | left [...] + + | 08/24/ | Hospital | [address] | Aleksey Sanchez, | | | 2019 - | Encounter | [facility] Kesha | [address] | | | | | [address] [place] [address] | [facility] | | | 09/01/ | | [place], [place] | [place], [place] | | | 2018 | | [address] | [address] | | | | | [phone] | [phone] | | | | | | | | | | | | Charlie Graham, | | | | | | [address] | | | | | | [facility] | | | | | | [place], [place] | | | | | | [address] | | | | | | [phone] | | | | | | | | | | | | Yunier Velez MD | | | | | | [address] | | | | | | [place], | | | | | | [place] [address] | | | | | | [phone] | | | | | | | | | | | | Madhav Ghotra MD | | | | | | [address] | | | | | | [place], | | | | | | [place] [address] | | | | | | [phone] | | | | | | | | | | | | Celeste Cerda MD | | | | | | [address] [facility] | | | | | | [facility] | | | | | | [place], [place] | | | | | | [address] | | | | | | [phone] | | | | | | | | | | | | Najma Bryant MD | | | | | | [address] [facility] | | | | | | [facility], | | | | | | [place] [address] | | | | | | [phone] | | | | | | | [...] daily. F/up with PCP in 1 w [place] to review BP trends. - continue to [...] - referral placed to Rad Oncology in [place], [place] - f/up with Oncology on 09/13/19 [...] 125 -> 137mcg at last Onc appt. -bdeechibflemedaqnhtkv562yke daily Pulmonary HTN TTE110/27 w/ RVSP of [...] Milner PA-C. Go on 09/09/2019. Specialty: Physician Bowling Pin Refinisher Why: For hospital follow-up and repeat lab work. Your appt is scheduled at 3pm Contact information [facility] [address] [place] [address] Lissette Ortiz MD. Go on 09/13/2019. Why: You have an appointment at 9:15 AM. Contact information HEM FACULTY [facility] - Hematology/Medical Oncology [facility], [address] [place], [place] [address] Future Appointments Provider Department Dept Phone Center 09/06/2019 6:00 PM RAD OP MRI3 Diagnostic Imaging Services at [facility] [phone] RADIOLOGY 09/13/2019 9:15 AM Lissette Ortiz [facility] at: 10th Floor Hematology/Medical Oncology [phone] HemOn Referrals: CONSULT TO RADIATION ONCOLOGY Referral to [place] [facility]iation On[facility] department 54yo F with h/o [...] to: Primary Care Provider Lissette Milner PA-C [facility] [address] [place] [facility] [place] [address] Call: Lissette Milner PA-C If you have any of the following: Difficulty breathing or unusual shortness of breath Excessive bleeding, drainage at the operative site Fevers, chills, increased pain that is not relieved by pain medications Persistent nausea or vomiting Discharging Provider: Kylie Sexton PA-C I spent more than 39 minutes floor / unit time of which greater than 50% was spent counseli ng the patient regarding discharge instructions, medications and follow up plans. Kylie Sexton PA-C Instructor of Medicine Clinical Hospitalist Service [facility] Pager [phone] [facility] [address] [place] [address] documented in this enc ounter Discharge Instructions Discharge Instr - AVS First Page Shelli Prescott PA - 08/31/2019 4:01 PM PSTWho to Call : HOW TO REACH YOUR MEDICAL TEAM WITH QUESTIONS, CONCERNS, OR NEW SYMPTOMS: Thank you for en trusting your care to [facility] Internal Medicine. If you have any problems or concerns before yo u are able to follow up with your Primary Care Provider, please call and ask the printing press operator apprentice to page the attending physician who was caring for you at discharge. If that ph ysician is not available, ask the printing press operator apprentice to page the physician on-call for the [...] ur labs checked every 72 hours at [facility] (have labs drawn 09/02, 09/05, and [...] A referral was also sent to the [place] [facility] department for consideration of radiation [...] Attending Physician: Najma Bryant MD Patient Name: [facility] Day: 6 Interval Events: - NAEO, VS: [...] now stabilize d and transferring back to [facility] service. Problem List: Hypotension Present on [...] - place referral to Rad Onc in [place] on discharge - continue oxycodone5-10mg po q4h [...] 125 -> 137mcg at last Onc appt. -ryydjjqseetubjxuhcuja167rbl daily Pulmonary HTN TTE 08/26 w/ RVSP [...] and BP stable. I spent 40 minutes tchg-xy-vsyx with the patient of which greater than 50% was spent counse ling the patient about hypotension, pain management, kyphoplasty,TLS, JONO in reviewing dayday dao chart notes/data, as well as coordination of care with Interventional Neuroradiology, O ncology, nursing, and case management. Shelli Prescott PA-C Instructor of Medicine Clinical Hospitalist Service [facility] Pager [phone] Associated attestation - Najma Bryant MD - [...] Horacio's). Jo Ann Bryant MD Clinical Hospitalist [facility] Pager [phone] Yrn Clemens MD - 08/30/2019 12:34 PM [...] prior to the procedure. Yrn Clemens MD Qi Specialist - Skull base and Cerebrovascular Neurosurgery Department of Neurological Asphalt Paving SuperintendentQi Specialist - Interventional Neuroradiology Felipe Key Department of Interventional Radiology [facility] 1 2:36 PM Shelli Arriaga PA - 08/29/2019 4:59 PM PSTFormatting of this note might be d ifferent from the original. CLINICAL HOSPITALIST SERVICE PROGRESS NOTE Author: REDD Valencia Attending Physician: Najma Bryant MD Patient Name: [facility] Day: 5 Interval Events: - NAEO, VS: [...] now stabilize d and transferring back to [facility] service. Problem List: Hypotension Present on [...] - place referral to Rad Onc in [place] on discharge - continue oxycodone5-10mg po q4h [...] 125 -> 137mcg at last Onc appt. -ibbjauotjpcmtbswkpvuc311flc daily Pulmonary HTN TTE 08/26 w/ RVSP of 75, mildly thickened and dilated RV. No prior ECHO available for perez og. RVSP raised concern for PE, though given RA hypertrophy this is more likely chronic. -stable on RA; CTM. FEN: Regular diet, low K and low Ca Prophy: SC heparin Code status: Full DISPO: Pending clinical course. I spent 45 minutes hgqo-gs-pviq with the patient of which greater than 50% was spent counse ling the patient about hypotension, DVT/PE, pain management, kyphoplasty, in reviewing [facility] chart notes/data, as well as coordination of care with Interventional Neuroradiology, O ncology, nursing, and case management. SOLEDAD ValenciaC Instructor of Medicine Clinical Hospitalist Service [facility] Pager [phone] Associated attestation - Najma Bryant MD - [...] (HCC) Jo Ann Bryant MD Clinical Hospitalist [facility] Pager [phone] Neda Gaines MD - 08/29/2019 12:24 PM PSTFormatting of this note might be different from t he original. INPATIENT ONCOLOGY FOLLOW-UP CONSULT NOTE Length of stay: 5 Reason for Consult: clear cell renal carcinoma Requesting Provider: Dr. Graham Outpatient Service Tech/Oncologist: Dr. Ortiz Interval events: --asymptomatic from hypotension [...] (Hitesh Gaines MD-PhD Hem/Onc Fellow, PGY4 Pager: [phone] signed by Richard Puga MD at 08/29/2019 [...] tomorrow. Jo Ann Bryant MD Clinical Hospitalist [facility] Pager [phone] Shelli Arriaga PA - 08/28/2019 3:21 PM PST CLINICAL HOSPITALIST SERVICE PROGRESS NOTE Author: REDD Valencia Attending Physician: Najma Bryant MD Patient Name: [facility] Day: 4 Interval Events: - transferred from [...] done while she is here. [place] [address] [place] and difficult [...] now stabilize d and transferring back to [facility] service. Problem List: Hypotension Present on [...] fatigue. Had received 3L IVF and pamidro ikra prior to admission to hospital medicine service.PTH [...] March which would be helpful to determine house director nicity, awaiting records. - daily CMP - K restricted diet - requested labs from 03/2019 to determine baseline Cr (P:[phone] if no records by Massiel angelo) - [...] 125 -> 137mcg at last Onc appt. -tphpkszcmbiuilrulbjpc309cts daily. Pulmonary HTN TTE 08/26 w/ RVSP of 75, mildly thickened and dilated RV. No prior ECHO available for perez rison. RVSP raised concern for PE, though given RA hypertrophy this is more likely chronic. -stable on RA; CTM. FEN: Regular diet, low K and low Ca Prophy: Hold for upcoming procedure Code status: Full DISPO: Pending clinical course. I spent 45 minutes lxmd-bg-dmko with the patient of which greater than 50% was spent counse ling the patient about hypotension, DVT/PE, adrenal insufficiency, in reviewing pertinent art notes/data, as well as coordination of care with Interventional Neuroradiology, nursing, and case management. Shelli Prescott PA-C Instructor of Medicine Clinical Hospitalist Service [facility] Pager [phone] hen, Celeste King MD - 1 10/28/2018 10:55 PM PST CLINICAL HOSPITALIST SERVICE PROGRESS NOTE PATIENT'S NAME/MRN: Hank Moncada [facility]/[id number] HOSPITAL DAY: #3 MICU Transfer Note INTERVAL EVENTS: Patient is 54 y/o female with history of Hodgkin's lymphoma s/p CHOP and XRT c/b post-radia tion hypothyroidism, recently diagnosed stage IV RCC c/b liver, lung, and osseous metastatic disease, initially admitted to [facility] service on 08/24 for hypotension, JONO, [...] for hypotension, stabilized now transferring back to [facility] service. Hypotension Present on admission, transferred [...] infusions done closer to home, such as [facility]). - consider Rad Onc or [facility]-IR consultation [...] RA; CTM. CODE status: Full Thromboembolic prophylaxis: [facility] Dispo plans: pending medical stability I spent 65 minutes in the care of this patient while on the medical unit today of which gre ater than 50% was spent counseling and coordinating care for the patient. Aliyah Cerda Division of Hospital Medicine Pager [phone] Madhav Downey MD - 08/27/2019 4:52 PM [...] Ghotra MD Division Pulmonary-Critical Care Medicine Mailcode [facility]-67 Pager [phone]/ [facility] DEPARTMENT: [facility], [facility]- [phone] Place of Service: - Date of Service: 08/27/2019 CSN: [id number] Modifiers: Resident Involved: yes abine Gauthier, DO - 1 10/28/2018 6:32 AM PST [facility] MEDICAL ICU - PROGRESS NOTE Hospital Day: [...] -- -- 88 HCO3 -- -- 18* [id number] -- -- 419 VBGPH 7.28* 7.24* 7.29* [...] Primary Surrogate Decision Maker William Talavera sister [phone] Secondary Surrogate Decision Maker Amada Manzanares sister [...] Ghotra MD Division Pulmonary-Critical Care Medicine Mailcode [facility]-67 Pager [phone]/ [facility] DEPARTMENT: [facility], [facility]- [phone] Place of Service: [facility] Date of Service: 08/26/2019 CSN: [id number] Modifiers: Resident Involved: yes erri Sosa - 08/08 9:05 AM PSTTransthoracic echocardiogram completed. Final report to follow. abine Gauthier DO - 6:51 AM PST [facility] MEDICAL ICU - PROGRESS NOTE Hospital Day: [...] (Dosing Weight) intravenous CONTINUOUS 0.1 mcg/kg/min (08/26/19 6295) Current Facility-Administered Medications Medication Dose Route Frequency [...] Primary Surrogate Decision Maker William Talavera sister [phone] Secondary Surrogate Decision Maker Amada Manzanares sister This patient was staffed with Dr. Ghotra, attending physician. Sabine Gauthier DO 08/26/2019, 6:51 AM Template created by [employer] 2017 harlie Portillo MD - 08/25/2019 11:27 PM PSTAttending Attestation: I have seen and examined the patient personally, and have reviewed and revised (when necess sukhwinder) the note by the house director. Hank Chang is a 54 y.o. woman [...] results, speaking with primary and/or ot her program consultant teams. Charlie Portillo MD Qi Specialistoil expert [facility] Division of Pulmonary & Critical Care Medicine Pager: [phone] troup, Yunier Peña MD - 08/25/2019 8:13 PM PST Addendum: Have spoken with MICU who will accept patient in setting of progressive hypotension. Below includes transfer summary to MICU with problem list of active medical issues. Yunier Velez MD Qi Specialist, Department of Hospital Medicine Perioperative Medicine Clinic, Clinical Hospitalist & Medical Teaching Services [facility] Pager [phone] 08/25/2019 9:00 PM [facility] Graphics Edit Technician Progress Note: Events prior to note: -was [...] for h/h < 7 Yunier Velez MD Qi Specialist, Department of Hospital Medicine Perioperative Medicine Clinic, Clinical Hospitalist & Medical Teaching Services [facility] Pager [phone] 08/25/2019 8:54 PM [facility] DEPARTMENT: Hosp ([facility]) - [phone] Place of Service: IP - [phone] [facility] [phone] Modifiers:GC Resident Involved: No Service: PRIMARY HOSPITALIST Suggested CPT: 33184 Prolonged Service Nzwx-fh-Tbkc 1st Hour (30-74 min beyond initial/sub) I [...] Attending Physician: Charlie Graham MD Patient Name: [facility] Day: 1 Interval Events: - presented to ED from opt Oncology appt for HoTN, hyperCa and hyperK in s/o clear cell curt al carcinoma - labs at [facility]: K 6, Cr 2.12, Ca [...] EKG w/o peaked T waves and normal NM interval, continues on telemetry w/o events. Un [...] Pending clinical course. I spent 45 minutes qbax-tk-gcwl with the patient of which greater than 50% was spent counse ling the patient about RCC, pathological fracture, pain mgmt, JONO, hyper K/Ca, in reviewing pertinent chart notes/data, as well as coordination of care with Oncology, nursing, and case management. REDD Valencia-C Instructor of Medicine Clinical Hospitalist Service [facility] Pager [phone] Associated attestation - Charlie Graham MD - [...] eval. Tessa Graham MD Clinical Hospitalist Service [facility] Pager [phone] I spent 38 minutes taking care of this patient while on the medical unit coordinating care and counseling regarding the above medical problems. documented in this encounter H&P Notes Tiesha Lopez, - 08/25/2019 9:11 PM PSTFormatting of this note might be different from t he original. 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 [facility] [...] Oncologic History: Oncologist Dr. 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 -continue telemetry -EKG [...] use of mehnaz inhibitor, atenolol, with hypoten ajnice on admission in setting of decreased PO [...] therapy Yunier Velez MD Clinical Hospitalist Services [facility] Pager [phone] [facility] DEPARTMENT: Hosp ([facility]) Modifiers:GC Resident Involved: No Service: PRIMARY HOSPITALIST Suggested CPT: 10042 Initial Visit Comp/High Complexity 70 min I [...] care per Hospitalist service Yrn Clemens MD Qi Specialist - Skull base and Cerebrovascular Neurosurgery Department of Neurological Asphalt Paving SuperintendentQi Specialist - Interventional Neuroradiology Felipe Key Department of Interventional Radiology [facility] 4 :27 PM Pavan Robles MD [...] see CXR report for confirma tion Vein director trial technique: Ultrasound Guidance Techique: The modified Seldinger technique (a sxvdommr-divb-suv-tcivxl-ygnk-kccw-through -the-catheter) was used for vessel cannulation Confirmed [...] present for this procedure. Charlie Portillo MD Qi Specialistoil expert [facility] [place] Division of Pulmonary & Critical Care Medicine Pager: [phone] Pavan Ramos MD - 08/26/2019 2:18 AM [...] present for this procedure. Charlie Portillo MD Qi Specialistoil expert [facility] Division of Pulmonary & Critical Care Medicine Pager: [phone] documented in this encounter Consult Notes Benito [...] up Benito Ovalles MD Endocrinology Fellow Pager: [phone] 08/30/2019 2:26 PM Luh Hobson MD - 7:58 AM PST [facility] [place] INTERVENT[facility]AL NEURORADIOLOGY at [facility] INTERVENTIONAL [place] HISTORY AND PHYSICAL NAME: Hank Altman : [...] ed. Luh Guevara MD Neurosurgery PGY1 [facility] Interventional Neuroradiology Tg Dennis MD - 2:24 [...] assistance. Abbie Mack MD Endocrinology Fellow Pager [phone] This patient's assessment and plan was discussed with attending program consultant Dr. Tg mcgowan who agrees with above [...] Note Reason for Consult: Hypotension Consult Attending: gT Lacy MD Requesting Attending: Madhav Ghotra MD [...] follow. Abbie Mack MD Endocrinology Fellow Pager [phone] This patient's assessment and plan was discussed with attending program consultant Dr. Tg cmgowan who agrees with above assessment and recommendations. 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 Tg Lacy MD Qi Specialist Division of Endocrinology Pager [phone] Carla Mercer, PharmD - 08/25/2019 5:50 PM [...] regarding this information please contact pharmacy, pager [phone] Thank you, Carla Mercer PharmD, BCPS Anisa Hernandez MD - 08/25/2019 9:43 AM PST INPATIENT ONCOLOGY INITIAL CONSULT NOTE Consultation Date: 08/25/2019 Reason for Consult: clear cell renal carcinoma Requesting Provider: Dr. Graham Outpatient Service Tech/Oncologist: Dr. Ortiz HPI: Hank Altman is a [...] was subsequently referred to medical oncology at [facility], Dr. Ortiz, and had her first appt [...] Oncologic History: Oncologist Dr. 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 We spoke to the [facility], who accepted patient to their service. [...] being fallon juice for renal cell adenocarcinoma [facility] 2 infusion room brought in for fluids [...] 3:33 PM PSTAshlee DOUGLAS - Oncology - 33081 Patient being treated for renal cell adenocarcinoma [facility] 2 infusion room brought in for fluids [...] Discharge 09/01/2019 10:00 AM Hospital Day: 8 [id number] HANK ALTMAN Date of : 1965 Start of care: 08/24/2019 Referring/Attending Practitioner: Najma Bryant MD Primary/Referral Diagnosis/ICD-9: E83.52 Hypercalcemia of malignancy E87.5 Hyperkalemia S32.020A Closed compression fracture of L2 lumbar vertebra, initial encounter (HCC) C64.2 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) Insurance: Payor: [employer] / Plan: [employer] / Product Type: Indemnity / Service period [...] reports independent, drives, 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 Patient / Family Goal: to go home [...] 90 degrees), long arc quadriceps. Outcome Measure: [facility] BASIC MOBILITY Difficulty turning over in bed [...] A Little - Minimal/Contact Guard Assist/Superv ision [facility] Basic Mobility Total Score 23 Interpretation of [facility] Short Form - Basic Mobility: CMS Modifier [...] Handoff Patient Daily Goal: "Sleep tonight." (08/29/19 9611) Patient Specific Preferences: pain mangement (08/28/19 5242) [facility] IP NURSE HANDOFF: [facility] hospital course events: [...] Handoff Patient Daily Goal: "Sleep tonight." (08/29/19 0007) Patient Specific Preferences: pain mangement (08/28/19 6048) [facility] IP NURSE HANDOFF: [facility] hospital course events: [...] (08/29/192111) Patient Specific Preferences: pain mangement (08/28/19 7042) [facility] IP NURSE HANDOFF: [facility] hospital course events: [...] -Daughter and son staying with family in [place]; may need to consult CM/SW for help with arrangements Barriers to discharge: -DC today depending on labs and BP andoff - Odette Montoya RN - 08/30/2019 5:35 PM PSTNursing Handoff Patient Daily Goal: "Sleep tonight." (08/29/192111) Patient Specific Preferences: pain mangement (08/28/19 3742) [facility] IP NURSE HANDOFF: [facility] hospital course events: [...] Abarca, MS, RD, LD, CNSC Pager #: [phone] Nutrition Assessment: Admitting Dx: Hank Altman is [...] 4.5, Cr 1.42, BUN 26 Pertinent Meds: 89811 units cholecalciferol weekly, levothyroxine Last BM: 08/29 Skin: back incision Admit Ht: 62" | Admit Wt: 94.6 kg | Admit BMI: 38.1 kg/m2 | IBW: 50 kg | Admit %IBW: 189% | Admit AdjBW: 61.2 kg Wt Readings from Last 10 Encounters: 08/28/19 98.7 kg (217 lb 8 oz) 08/24/19 94.6 kg (208 lb 8.9 oz) 08/16/19 95.7 kg (211 lb) Estimated needs: 2580-7590 kcal/day (MSJx1.1-1.3); 75-100 g protein/day (1.5-2 g/kg [...] Patient Specific Preferences: pain mangement (08/28/19 0742) [facility] IP NURSE HANDOFF: [facility] hospital course events: [...] -Daughter and son staying with family in [place]; may need to consult CM/SW for help with arrangements Barriers to discharge: Brain Tumor MRI pending EGFR >30 - currently at 27 CT to r/o PE pending kidney labs? indy - Vicenta Vallejo RN - 08/29/2019 2:38 [...] Patient Specific Preferences: pain mangement (08/28/19 0742) [facility] IP NURSE HANDOFF: [facility] hospital course events: [...] -Daughter and son staying with family in [place]; may need to consult CM/SW for help [...] Pain management. Move slowly with ambulation (08/26/191999) [facility] IP NURSE HANDOFF: [facility] hospital course events: [...] -Daughter and son staying with family in [place]; may need to consult CM/SW for help with arrangements Barriers to discharge: -Oncology and endocrine work up -Kidney values -Pituitary MRI andoff - Yvette Pizarro ma RN - 08/27/2019 11:30 PM PSTNursing Handoff Patient Daily Goal: Sleep! pain management (08/27/191999) Patient Specific Preferences: Pain management. Move slowly with ambulation (08/26/191999) [facility] IP NURSE HANDOFF: [facility] hospital course events: [...] to provide relief. RESTORATIVE MEASURES/SELF-MANAGEMENT Patient/Family Target: Hank will be [...] Pain management. Move slowly with ambulation (08/26/191999) [facility] IP NURSE HANDOFF: [facility] hospital course events: [...] to rise without assistance. COMFORT/ANXIETY/BEHAVIOR Patient/Family Target: Hank will [...] Pain management. Move slowly with ambulation (08/26/191999) [facility] IP NURSE HANDOFF: [facility] hospital course events: 54 y.o. woman w/ metastatic RCC admitted to the MICU for fluid refractory hypotension. Patient's hospital course has been complicate d by ongoing hyperkalemia, metabolic acidosis, hypotension with MAPs<65, unclear urine outpu t, despite aggressive IVF resuscitation with clinical signs of volume overload SAFETY Patient/Family Target: aHnk will be able to safely mobilize to [...] give 2000 units per day if preferred) Ktcx-cem-piypaflvv-related knowledge deficit r/t lack of prior exposure to nutrition-relate d information evidenced by change in condition with possible need for renal diet education. Odette Dhaliwal, KESHA Pgr #[phone] Hank Altman is a 54 y.o. female [...] Est needs ICU, BMI >30, using IBW: 4359-8997 kcal (22-25/kg), 100 g pro (2g/kg) lan [facility] Lissette Salcido - 08/26/2019 10:45 AM PSTPTNote: Consult from ED, admitted to MICU with ongoing m edical stabilization and work-up. Not appropriate for physical therapy, signing off. Nursing able to mobilize as appropriate per safe patient mobility check, please re-consult when med ically stable. Christine Salcido, [id number] signed by Lissette Salcido at 08/26/2019 10:47 AM P STPlan of Hank Leach, PT - 08/25/2019 11:22 AM PSTContact Note for Physical Th erapy Urgent orders received, chart reviewed. Checked in with nurse who reports pt is hypotensive , trending downwards. PT will hold for now and check back tomorrow. Hank Vizcarra, PT DPT Pager [phone] D Teaching Notes - Aleksey Sanchez MD - 08/25/2019 1:10 AM Annika Sanchez MD, Faculty Note: I saw and evaluated the patient and discussed the diagnosis, management, and interpretation of results with the resident. I performed and confirmed the gonsales portions of the service. I have reviewed and agree with the documentation in the provider note. Aleksey Sanchez MD [facility] Miranda Carver - 08/24/2019 6:01 PM [id number] - c1 54 yof back pain & prev lower lumbar FX; hi gh calcium values; hr 87 sat 100 bp 111/53 & IV est; eta 6 [facility] - Adriane Dillon - 08/24/2019 3:32 PM PSTConne cted ref to MISAEL Vivas (ed RN) C/o hypotension documented in this encounter Plan of Treatment + + [...] [facility] | [address] | [place] [address] | | | SERVICES, CORE | PARK [...] | + + + + + | [facility] | [address] | [place] [address] | | | SERVICES, CORE | DIGNA [...] [facility] | [address] | [place] [address] | | | SERVICES, CORE | PARK [...] | + + + + + | [facility] | [address] | [place] [address] | | | SERVICES, CORE | PARK [...] | | | LABORATORY | | | NIGERIAN | | | SERVICES, | | | [...] MDRD equation recommended by the National | [facility] | | Kidney Disease Education Program. Estimated [...] | + + + + + | [facility] | [address] | [place] [address] | | | SERVICES, CORE | DIGNA [...] [facility] | [address] | [place] [address] | | | SERVICES, CORE | PARK [...] | | | LABORATORY | | | NIGERIAN | | | SERVICES, | | | [...] MDRD equation recommended by the National | [facility] | | Kidney Disease Education Program. Estimated [...] [facility] | [address] | [place] [address] | | | SERVICES, CORE | PARK [...] | + + + + + | [facility] | [address] | [place] [address] | | | SERVICES, CORE | PARK [...] [facility] | [address] | [place] [address] | | | SERVICES, CORE | PARK [...] [facility] | [address] | [place] [address] | | | SERVICES, CORE | PARK [...] | + + + + + | [facility] | [address] | [place] [address] | | | SERVICES, CORE | PARK [...] [facility] | [address] | [place] [address] | | | SERVICES, CORE | PARK [...] + | [facility] | [address] | [place] [address] | | | SERVICES, CORE | PARK [...] | + + + + + | [facility] | [address] | [place] [address] | | | SERVICES, CORE | PARK [...] | | | LABORATORY | | | NIGERIAN | | | SERVICES, | | | [...] <60 mL/min/1.73 sq m Chronic Kidney | MICHELLE, CORE | | Disease <15 mL/min/1.73 sq [...] | + + + + + | [facility] | [address] | [place] [address] | | | DWIGHT MARTINEZ | PARK [...] [facility] | [address] | [place] [address] | | | SERVICES, CORE | [address] | | | + + + + + MRI BRAIN TUMOR EVALUATION WWO CONTRAST (08/30/2019 12:28 PM PST) + + | Specimen | + + | | + + + + + | Narrative | Performed At | + + + | EXAM: MR BRAIN TUMOR FOLLOW UP WWO HISTORY: 54yo F with h/o | [facility] | | Hodgkins, new dx of RCC, [...] | | | POC | | | [facility] | | | | | | OF [...] [facility] | [address] | [place], [place] | | | JOCELYNE POINT OF CARE | [facility] | [address] | | | TESTS | | | [...] (L) | 70 - 99 mg/dL | [facility] - | | | GLUCOSE, | | [...] [facility] | [address] | [place], [place] | | | [facility] | [facility] | [address] | | | TESTS | | | [...] | + + + + + | [facility] | [address] | [place] [address] | | | SERVICES, CORE | PARK [...] | + + + + + | [facility] | [address] | [place] [address] | | | SERVICES, CORE | PARK [...] [facility] | [address] | [place] [address] | | | SERVICES, CORE | PARK [...] | | | LABORATORY | | | NIGERIAN | | | SERVICES, | | | [...] [facility] | [address] | [place] [address] | | | SERVICES, CORE | PARK [...] | + + + + + | [facility] | [address] | [place] [address] | | | MICHELLE, DWIGHT | DIGNA [...] [facility] | [address] | [place] [address] | | | SERVICES, CORE | PARK [...] LD may be inaccurate. Refer to | [facility] | | comment under test. | LABORATORY | | | SERVICES, CORE | + + + + + + + + | Performing | Address | City/State/Zipcode | Phone Number | | Organization | | | | + + + + + | [facility] | [address] | [place] [address] | | | SERVICES, CORE | PARK [...] [facility] | [address] | [place] [address] | | | MICHELLE, DWIGHT | DIGNA [...] | | | LABORATORY | | | NIGERIAN | | | SERVICES, | | | [...] MDRD equation recommended by the National | [facility] | | Kidney Disease Education Program. Estimated [...] | + + + + + | [facility] | [address] | [place] [address] | | | SERVICES, CORE | PARK [...] [facility] | [address] | [place] [address] | | | SERVICES, CORE | PARK [...] | + + + + + | [facility] | [address] | [place] [address] | | | MICHELLE, DWIGHT | DIGNA [...] | + + + + + | [facility] | [address] | [place] [address] | | | SERVICES, CORE | DIGNA [...] SURGEON: Yrn Clemens | | | Lily BAD CREDIT COLLECTOR SURGEONS: ANESTHESIA: Moderate sedation was | | [...] | | A 10 gauge 12 cm [place] needle was then introduced to the right | | | pedicle using an AP projection and lateral fluoroscopy. The needle | | | was gently tapped with a mallet into the central portion of the body. | | | A curved curet was then used to create a channel across midline of | | | the vertebral body. The [place] kyphoplasty balloon was then inserted | | | and inflated. The Jose G bone cement delivery system was used. | | | The [place] radiopacifier and bone cement was mixed. The [...] Dictation initiated: Yrn Clemens MD 08/29/2019 4:28 PM | | [...] | REPORT PRIMARY SURGEON: Yrn Clemens M.D. BAD CREDIT COLLECTOR SURGEONS: ANESTHESIA:Moderate | | sedation was directly [...] A 10 gauge 12 cm | | [place] needle was then introduced to the right pedicle using an AP projection and | | lateral fluoroscopy. The needle was gently tapped with a mallet into the central | | portion of the body. A curved curet was then used to create a channel across midline of | | the vertebral body. The [place] kyphoplasty balloon was then inserted and inflated. [...] | | PM | |vertebral body. The Jose G kyphoplasty balloon was then inserted and inflated. The Stryke r bone cement delivery system was used. The Jose G radiopacifier and bone cement was mixed . [...] | | | service Yrn Clemens MD Qi Specialist - | | | Skull base and Cerebrovascular Neurosurgery Department of | | | Neurological Asphalt Paving SuperintendentQi Specialist - Interventional | | | Neuroradiology Felipe [place] Department of Interventional | | | Radiology [facility] | | + + + CBC AND [...] | + + + + + | [facility] | [address] | [place] [address] | | | SERVICES, DWIGHT | DIGNA [...] | | | | | | , [facility] & | | | | | | [facility] | | | | | | electronic [...] CD56 | | | | | | ALEXI Pimentel | | | | | | | [...] | | | | | determined by [facility] | | | | | | laboratories. [...] | + + + + + | [facility] | [address] | [place] [address] | | | PATHOLOGY | [address] [...] | + + + + + | [facility] | [address] | [place] [address] | | | SERVICES, | [address] [...] [facility] | [address] | [place] [address] | | | SERVICES, | [address] [...] | + + + + + | [facility] | [address] | [place] [address] | | | SERVICES, | [address] [...] [facility] | [address] | [place] [address] | | | SERVICES, CORE | PARK [...] | + + + + + | [facility] | [address] | [place] [address] | | | SERVICES, CORE | DIGNA [...] | | | LABORATORY | | | NIGERIAN | | | SERVICES, | | | [...] | 18 | 8 - 25 | [facility] | | | INE RATIO | | [...] MDRD equation recommended by the National | [facility] | | Kidney Disease Education Program. Estimated [...] | + + + + + | [facility] | [address] | [place] [address] | | | SERVICES, CORE | DIGNA [...] | + + + + + | [facility] | [address] | [place] [address] | | | SERVICES, CORE | DIGNA [...] Note | + + | Service Account, ChinoFlirq In Interface - 08/28/2019 3:30 PM PST [...] | | + +---------+ + + | [facility] | | | | | [facility] | | | | + +---------+ [...] [facility] | [address] | [place] [address] | | | SERVICES, CORE | PARK [...] | + + + + + | [facility] | [address] | [place] [address] | | | SERVICES, CORE | DIGNA [...] | | | LABORATORY | | | NIGERIAN | | | SERVICES, | | | [...] | + + + + + | [facility] | [address] | [place] [address] | | | SERVICES, DWIGHT | DIGNA [...] + + | [facility] | [address] | [place] [address] | | | SERVICES, CORE | PARK [...] | + + + + + | [facility] | [address] | [place] [address] | | | SERVICES, CORE | PARK [...] | | | LABORATORY | | | NIGERIAN | | | SERVICES, | | | [...] | + + + + + | [facility] | [address] | [place] [address] | | | DWIGHT MARTINEZ | DIGNA [...] 20 ug/dL. | LABORATORY | | | DWIGHT MARTINEZ | + + + + + + + + | Performing | Address | City/State/Zipcode | Phone Number | | Organization | | | | + + + + + | [facility] | [address] | [place] [address] | | | SERVICES, DWIGHT | PARK [...] + + | [facility] | [address] | [place] [address] | | | SERVICES, CORE | DIGNA [...] | + + + + + | [facility] | [address] | [place] [address] | | | SERVICES, CORE | DIGNA [...] | + + + + + | [facility] - | [address] | [place] [address] | | | [place] | | | [...] | | Follicular: 4-9 mIU/mL | | [place] | | | | Midcycle: 5-23 mIU/mL [...] + | [facility] | [address] | [place] [address] | | | [place] | | | | + + + [...] + + + | Test performed in [facility] Core lab. New reference range in effect | [facility] | | 2-6-18. | LABORATORY | | | SERVICES, CORE | + + + + + + + + | Performing | Address | City/State/Zipcode | Phone Number | | Organization | | | | + + + + + | [facility] | [address] | [place] [address] | | | MICHELLE, DWIGHT | DIGNA [...] | | | | | | by [email or web address] | | | | | | Franko Dia, [facility],[place] | | | | | | [address] | | | | | | [phone].[email or web address]. | | | | | | bear river valley hospitalDenis MD, | | | | | | [...] [facility] | [address] | [place], [place] | | | [facility] | | [address] | | + + + + + [...] + | [facility] | [address] | [place] [address] | | | [place] | | | | + + + [...] | | | LABORATORY | | | NIGERIAN | | | SERVICES, | | | [...] | + + + + + | [facility] [employer] [facility] | [address] | [place] [address] | | | MICHELLE, DWIGHT | [address] | | | [...] | + + + + + | [facility] | [address] | [place] [address] | | | SERVICES, CORE | DIGNA [...] | + + + + + | [facility] | [address] | [place] [address] | | | SERVICES, CORE | DIGNA [...] [facility] | [address] | [place] [address] | | | SERVICES, CORE | PARK [...] | | | LABORATORY | | | NIGERIAN | | | SERVICES, | | | [...] MDRD equation recommended by the National | [facility] | | Kidney Disease Education Program. Estimated [...] [facility] | [address] | [place] [address] | | | SERVICES, CORE | PARK [...] [facility] | [address] | [place] [address] | | | DWIGHT MARTINEZ | DIGNA [...] | | | LABORATORY | | | NIGERIAN | | | SERVICES, | | | [...] | + + + + + | [facility] | [address] | [place] [address] | | | SERVICES, CORE | PARK [...] | | | LABORATORY | | | NIGERIAN | | | SERVICES, | | | [...] [facility] | [address] | [place] [address] | | | SERVICES, CORE | PARK [...] | + + + + + | [facility] | [address] | [place] [address] | | | SERVICES, CORE | DIGNA [...] | | | LABORATORY | | | NIGERIAN | | | SERVICES, | | | [...] MDRD equation recommended by the National | [facility] | | Kidney Disease Education Program. Estimated [...] | + + + + + | [facility] | [address] | [place] [address] | | | SERVICES, CORE | DIGNA [...] + | [facility] | [address] | [place] [address] | | | SERVICES, CORE | PARK [...] | + + + + + | [facility] | [address] | [place] [address] | | | SERVICES, CORE | DIGNA [...] [facility] | [address] | [place], [place] | | | KAREN CASANOVA OF CARE | [address] | [address] | | | TESTS | | | [...] Performed At | + ----+ + | [facility] | [facility] DEPT OF | | [facility] Adult Echocardiography Laboratory [address] | CARDIOLOGY | | [address], [place] [address] Ph: | | | Pt Name: HANK ALTMAN | | | Study Date/Time 08/26/2019 / 7:53:21 AMMRN: [id number] | | | Most recent prior: -Acc #: [id number] | | | No. previous echos: 0DOB: 1965 54 years Heart | | | Rate: 99 bpmHeight: 62.0 in Blood | | | Pressure: 105/67 mm/HgWeight: 225.5 lb | | | Gender: FBSA: 2.01 m | | | Order ID: [id number] Study | | | Location: Sonographer: Terri Sosa [facility] AE, [facility] | | | Provider: YUNIER Leonard Performed: [...] Report | | | electronically signed by: [id number] Eliana An MD (08/26/2019, | | | 11:24:45 AM) Final | | | cm mm/m | | | Asc Ao 3.60 17.9 | | | (prox) cm mm/m | | |Evaluation of chamber size and geometry is accomplished through the incorporation of | | |linear, volumetric, and indexed values | | | | | |Report electronically signed by: [id number] Eliana An MD (08/26/2019, 11:24:45 AM) | | | | | | | | | | | | Final | | + ----+ + + + | Procedure Note | + + | Interface, Cardiology Results - 08/26/2019 11:24 AM [facility] | | [facility] Echocardiography Laboratory [facility] [facility] | | [place], [place] [address] Pt Name: HANK MONCADA | | [facility] Study Date/Time 08/26/2019 / 7:53:21 AMMRN: [id number] Most | | recent prior: -Acc #: [id number] No. previous echos: 0DOB: 1965 | | 54 years Heart Rate: 99 bpmHeight: 62.0 in Blood Pressure: | | 105/67 mm/HgWeight: 225.5 lb Gender: FBSA: 2.01 m | | Order ID: [id number] Study Location: Sonographer: Terri | | [facility] AE, PEReferring Provider: YUNIER Leonard Performed: 2D, Color | [...] and indexed values Report electronically signed by: [id number] | | Eliana An MD (08/26/2019, 11:24:45 [...] | | | |Report electronically signed by: [id number] Eliana An MD (08/26/2019, 11:24:45 AM) | | | | | | | | Final | + + + + + + + | Performing | Address | City/State/Zipcode | Phone Number | | Organization | | | | + + + + + | [facility] | [address] | [place], [place] | | | CARDIOLOGY | [address] | [address] | | + + + + + X-RAY PORTABLE CHEST 1 VIEW (08/26/2019 5:25 AM PST) + + | Specimen | + + | | + + + + + | Narrative | Performed At | + + + | EXAM: NM CHEST 1 VIEW HISTORY: confirm central line [...] Dinh MD 08/26/2019 8:10 AM Preliminary: Charlene | | | MD Fabrizio Dictation initiated: Charlene Dinh MD 08/26/2019 | | | 8:08 AM | | + + + + + | Procedure Note | + + | Service Account, Radiant Res In Interface - 08/26/2019 8:11 AM PST EXAM: NM CHEST 1 | | VIEW HISTORY: confirm [...] | | | | | determined by [employer] | | | | | | [employer]. See | | | | | | Compliance Statement B: | | | | | | [employer]/CSPerformed | | | | | | by [email or web address] | | | | | | Franko Dia [facility],[place] | | | | | | [id number] | | | | | | [phone].[employer]. | | | | | | comDenis MD, | | | | | | [...] [facility] | [address] | [place], [place] | | | [facility] | | [address] | | + + + + + [...] [facility] | [address] | [place], [place] | | | KAREN [facility] OF KATHERINE | [facility] | [address] | | | TESTS | | | [...] | + + + + + | [facility] | [address] | [place] [address] | | | SERVICES, CORE | PARK [...] | + + + + + | [facility] | [address] | [place] [address] | | | SERVICES, CORE | PARK [...] | + + + + + | [facility] | [address] | [place] [address] | | | SERVICES, DWIGHT | DIGNA [...] | | | LABORATORY | | | NIGERIAN | | | SERVICES, | | | [...] | + + + + + | [facility] [employer] [facility] | [address] | [place] [address] | | | SERVICES, DWIGHT | DIGNA [...] [facility] | [address] | [place] [address] | | | SERVICES, CORE | PARK [...] | + + + + + | [facility] | [address] | [place] [address] | | | SERVICES, CORE | PARK [...] | + + + + + | [facility] | [address] | [place] [address] | | | DWIGHT MARTINEZ | DIGNA [...] 82 | 70 - 99 mg/dL | [facility] - | | | GLUCOSE, | | [...] [facility] | [address] | [place], [place] | | | [facility] | [address] | [address] | | | TESTS | | | | + + + + + TORO MOSES (08/26/2019 4:08 AM PST) + + + [...] report | | | for confirmation Vein director trial technique: Ultrasound Guidance | | | Techique: The modified Seldinger technique (a | | | pclktmmy-aoui-ptz-dckemu-bkyr-yakz-ptuexkn-zxd-mwsfmmad) was used for | | | vessel [...] | | | LABORATORY | | | NIGERIAN | | | SERVICES, | | | [...] MDRD equation recommended by the National | [facility] | | Kidney Disease Education Program. Estimated [...] | + + + + + | [facility] | [address] | [place] [address] | | | SERVICES, CORE | PARK [...] [facility] | [address] | [place] [address] | | | SERVICES, CORE | [address] | | | + + + + + ADRIANA SANTIAGO ONLY (08/26/2019 12:23 AM PST) + + [...] | [facility] | | | GRAVITY | Morrill performed by | | LABORATORY | | [...] [facility] | [address] | [place] [address] | | | SERVICES, CORE | PARK [...] | + + + + + | [facility] | [address] | [place] [address] | | | SERVICES, CORE | DIGNA [...] | + + + + + | [facility] | [address] | [place] [address] | | | SERVICES, CORE | DIGNA [...] | + + + + + | [facility] | [address] | [place] [address] | | | SERVICES, DWIGHT | [address] | | | + + + + + BG-SURYA YORK (08/25/2019 8:56 PM PST) + + + + + + | Component | Value | Ref Range | Performed | Pathologist | | | | | At | Signature | + + + + + + | TOTAL CO2 | 22 (L) | 23 - 29 mmol/L | [facility] - | | | [...] [facility] | [address] | [place], [place] | | | [facility] | [address] | [address] | | | TESTS | | | [...] | | POC | | ng/mL | [facility] | | | | | | KAREN [...] - [facility] | [address] | [place], [place] | | | JOCELYNE POINT OF CARE | [address] | [address] | | | TESTS | | | [...] | + + + + + | [facility] | [address] | [place] [address] | | | SERVICES, CORE | DIGNA [...] | | | LABORATORY | | | NIGERIAN | | | SERVICES, | | | [...] MDRD equation recommended by the National | [facility] | | Kidney Disease Education Program. Estimated [...] | + + + + + | [facility] | [address] | [place] [address] | | | SERVICES, CORE | PARK [...] | + + + + + | [facility] | [address] | [place] [address] | | | SERVICES, CORE | PARK [...] | + + + + + | [facility] | [address] | [place] [address] | | | SERVICES, CORE | PARK [...] | + + + + + | [facility] | [address] | [place] [address] | | | SERVICES, CORE | DIGNA [...] + + + + | QTC-BANESHATT | 429 | ms | [facility] DEPT [...] DEPT OF | [address] | [place], [place] | | | CARDIOLOGY | [address] | [address] | | + + + + + [...] | + + + + + | [facility] | [address] | [place] [address] | | | SERVICES, CORE | PARK [...] | + + + + + | [facility] | [address] | [place] [address] | | | SERVICES, CORE | PARK [...] | | | LABORATORY | | | DWIGHT MARTINEZ | + + + + + + + + | Performing | Address | City/State/Zipcode | Phone Number | | Organization | | | | + + + + + | [facility] | [address] | [place] [address] | | | DWIGHT MARTINEZ | [address] | | | + + + + + 12 LEAD ECG (08/25/2019 5:13 PM PST) + + + + + + | Component | Value | Ref Range | Performed | Pathologist | | | | | At | Signature | + + + + + + | VENTRICULAR | 93 | bpm | [facility] | | [...] + + + + | QTC-BANESHATT | 420 | ms | [facility] DEPT [...] DEPT OF | [address] | [place], [place] | | | CARDIOLOGY | [address] | [address] | | + + + + + CHEM 8 W/H&H,POC (08/25/2019 5:08 PM PST) + + + [...] | | POC | | mmol/L | [facility] | | | | | | KAREN [...] MARQUAM | | | | | | [place], POINT | | [...] FRENCH | [address] | [place], [place] | | | JOCELYNE POINT OF CARE | [address] | [address] | | | TESTS | | | [...] [facility] | [address] | [place] [address] | | | SERVICES, CORE | PARK [...] | | | LABORATORY | | | NIGERIAN | | | SERVICES, | | | [...] MDRD equation recommended by the National | [facility] | | Kidney Disease Education Program. Estimated [...] | + + + + + | [facility] | [address] | [place] [address] | | | SERVICES, CORE | PARK [...] | + + + + + | [facility] | [address] | [place] [address] | | | SERVICES, CORE | DIGNA [...] [facility] | [address] | [place] [address] | | | DWIGHT MARTINEZ | [address] | | | + + + + + MAGNESIUM, PLASMA (08/25/2019 5:36 AM PST) + +-------+ + + + | Component | Value | Ref Range | Performed | Pathologist | | | | | At | Signature | + +-------+ + + + | MAGNESIUM,P | 1.7 | 1.6 - 2.6 mg/dL | [facility] | | | LASMA | | | [...] [facility] | [address] | [place] [address] | | | SERVICES, CORE | PARK [...] | | | LABORATORY | | | NIGERIAN | | | SERVICES, | | | | | | CORE | | + + + + + + | EGFR NON | 29 (L) | >60 mL/min | [facility] | | | -LSIA | | | LABORATORY | | | [...] MDRD equation recommended by the National | [facility] | | Kidney Disease Education Program. Estimated [...] + + | [facility] | [address] | [place] [address] | | | SERVICES, CORE | PARK [...] [facility] | [address] | [place] [address] | | | SERVICES, CORE | PARK [...] | + + + + + | [facility] | [address] | [place] [address] | | | SERVICES, CORE | DIGNA [...] [facility] | [address] | [place] [address] | | | SERVICES, | [address] [...] | + + + + + | [facility] | [address] | [place] [address] | | | MICHELLE, DWIGHT | [address] | | | + + + + + CHEM 8 W/H&H,POC (08/24/2019 10:12 PM PST) + + + + + + | Component | Value | Ref Range | Performed | Pathologist | | | | | At | Signature | + + + + + + | SODIUM, POC | 137 | 134 - 143 | [facility] - | | | | | mmol/L | [facility] | | | | | | KAREN CASANOVA | | | | | | OF CARE | | | | | | TESTS | | + + + + + + | POTASSIUM, | 5.5 (H) | 3.4 - 5.0 | [facility] - | | | POC | | mmol/L | [facility] | | | | | | KAREN [...] FRENCH | [address] | [place], [place] | | | KAREN CASANOVA OF KATHERINE | [facility] | [address] | | | TESTS | | | [...] [facility] | [address] | [place] [address] | | | SERVICES, CORE | PARK [...] | + + + + + | [facility] | [address] | [place] [address] | | | SERVICES, CORE | DIGNA [...] [facility] | [address] | [place] [address] | | | SERVICES, CORE | DIGNA [...] | | | LABORATORY | | | NIGERIAN | | | SERVICES, | | | [...] MDRD equation recommended by the National | [facility] | | Kidney Disease Education Program. Estimated GFR Interpretive | LABORATORY | | Information: <60 mL/min/1.73 sq m Chronic Kidney | SERVICES, [facility] | | Disease <15 mL/min/1.73 sq m [...] | + + + + + | [facility] | [address] | [place] [address] | | | MICHELLE, DWIGHT | DIG[address] [...] | + + + + + | [facility] | [address] | [place] [address] | | | SERVICES, CORE | DIGNA [...] | + + + + + | [facility] | [address] | [place] [address] | | | SERVICES, CORE | PARK [...] | + + + + + | [facility] [employer] | [address] | [place] [address] | | | SERVICES, CORE | DIGNA [...] | + + + + + | [facility] | [address] | [place] [address] | | | SERVICES, CORE | DIGNA [...] + + + + | QTC-BAMAURA | 436 | ms | [facility] [...] + + + | ECG | Prolonged NM interval | | [facility] | | [...] DEPT OF | [address] | [place], [place] | | | CARDIOLOGY | [address] | [address] | | + + + + + ED INFORMATION EXCHANGE (08/24/2019 6:17 PM PST) + + | Specimen | + + | | + + + + + | Narrative | Performed At | + + + | COLLECTIVE?NOTIFICATION?08/24/2019 18:16?HANK ALTMAN?MRN: | [facility]LECTIVE | | [id number] Criteria Met PDMP Security and Safety No [...] Qty. | | | Prescriber CS MED 2019-08-22 OXYCODONE HCL 5 MG TABLET [...] E.D. Visit Count (12 mo.) Facility Visits [facility] and | | | [facility] 1 [facility] 1 Total 2 Note: | | | Visits indicate total known visits. Recent Emergency Department | | | Visit Summary Date Facility City State Type Diagnoses or Chief | | | Complaint Aug 24, 2019 [facility] [place] | | | [place] Emergency 10,800. abnormal labs Jul 27, 2019 [facility] | | | [place] Emergency Other halfway (current) drug | | | therapy Other specified disorders of kidney and ureter Low | | | back pain Hematuria, unspecified Recent Inpatient | | | Visit Summary No recorded inpatient visits. Care Team There is | | | not a care team on record at this time. Plango Portal This | | | patient has registered at the [facility] | | | Emergency Department For more information visit: | | | [email or web address] | | | [email or web address] PLEASE NOTE: 1. Any care recommendations [...] or completeness of information provided. ? 2019 [employer] | | | giftee. - [email or web address] | | + + + + + [...] HYDROCODONE-ACETAMIN 5-325 MG | | [address] [place], [place] 2 20 2019-07-27 HYDROCODONE-ACETAMIN 5-325 MG 30 GUERO SKAGGS | | 2 50 Rx SummaryMetric Count CS II-V Rx 3 CS-II Rx 3 Quantity Dispensed 226 Unique | | Prescribers 3 [facility] 2 Benzos 0 Opioids 3 Long Acting Opioids 0 E.D. Visit | | Count (12 mo.)Facility Visits [facility] 1 [facility] | | Hospital 1 Total 2 Note: Visits indicate total known visits. Recent Emergency | | Department Visit SummaryDate Facility City State Type Diagnoses or Chief Complaint Dec | | 2018 [facility] [place] Emergency 10,800. abnormal | | labs Jul 27, 2019 [facility] [place] Emergency Other terminal computer operator (current) | | drug therapy Other specified disorders of kidney and ureter Low back pain | | Hematuria, unspecified Recent Inpatient Visit SummaryNo recorded inpatient visits. Care | | TeamThere is not a care team on record at this time. Plango PortalThis patient has | | registered at the [facility] Emergency Department For more | | information visit: | | [email or web address] PLEASE | | NOTE: 1. Any care [...] completeness of information | | provided.? 2019 [employer]. - [email or web address] | |Benzos 0 | |Opioids 3 | |Long Acting Opioids 0 | | | | | | | |E.D. Visit Count (12 mo.) | |Facility Visits | |[facility] 1 | |[facility] 1 | |Total 2 | |Note: Visits indicate total known visits. | | | |Recent Emergency Department Visit Summary | |Date Facility City State Type Diagnoses or Chief Complaint | |Aug 24, 2019 [facility] [place] Emergency | | 10,800. abnormal labs | | | |Jul 27, 2019 [facility]. [place] Emergency | | Other halfway (current) drug therapy | | Other specified disorders of kidney and ureter | | Low back pain | | Hematuria, unspecified | | | | | | | |Recent Inpatient Visit Summary | |No recorded inpatient visits. | | | |Care Team | |There is not a care team on record at this time. | |[employer] | |This patient has registered at the [facility] Emergency Departmen t | |For more information visit: [email or web address] | |PLEASE NOTE: | | 1. Any [...] information provided. | | | |? 2019 [employer]. - [email or web address] | + + + + + + + | Performing | Address | City/State/Zipcode | Phone Number | | Organization | | | | + + + + + | [facility] | [address] | [place], [place] | [phone] | | TECHNOLOGIES | [address] | [address] | | + + + + + [...] | | | MEALS, First dose on [facility] 09/01/19 | | | | | | [...] 4:28 | | | | | dose, 08/26/19 at 0245 | | AM PST | [...] | | | | 20 doses, Starting Thu08/29/19 | | | | | | | at 1340, Until Thu08/29/19 at | | | | | | [...] 100 mg | | | | (PF) (TATUM) injection 100 | | 19 10:25 | [...] | | | infiltration, ONCE, 1 dose, Thu | | AM PST | | [...] PST | | | | | Until [facility] 09/01/19 at 2103, | | | | [...] | | | | 20 doses, Starting Thu08/29/19 | | | | | | | at 1340, Until Thu08/29/19 at | | | | | | [...] | | | | | NEEDED, Starting Thu08/25/19 at | | AM PST | | | | | 0341, Until Thu08/25/19 at 2022, | | | | | [...] | | | | | modification) on [facility] 08/25/19 at | | | | [...] | | | oral, ONCE, 1 dose, [facility] 08/25/19 | | AM PST | [...]
--- OUTSIDE RECORDS SUMMARY | ~2020-06-29 | XMS | Encounter Summary ---
Demographics + + + | Address | [address] | | | [place] [address] | + + + | Home Phone [...] Providers + +------+ + | Care Behavioral School Counselors Name | Role | Phone | + [...] [address] | | | | | [facility] | Digna Sanches [place], | | | | | [address] | [place] [address] | | | | | [address] | [phone] | | | | | [facility] | | | | | | Physician's | | | | | | Pavilion [place], | | | | | | [place] [address] | | | | | | [phone] | | | +--------+ + + + [...]
--- OUTSIDE RECORDS SUMMARY | ~2020-06-29 | XMS | Encounter Summary ---
Demographics + + + | Address | [address] | | | [place] [address] | + + + | Home Phone [...] + + + | Author | [facility] | | | and Shahram | + + + | Organization | [facility] | [...] Team Providers + +------+ + | Care Human Geography Instructor Name | Role | Phone | + +------+ + PCP | Unavailable | + +------+ + Encounter Details +--------+ + + + + | Date | Type | Department | Care Team | Description | +--------+ + + + + | 05/18/ | Hospital | [facility] | | | | 2001 - | Encounter | MED CTR CANCER | | | | | | CENTER [address] | | | | 08/16/ | | [place] | | | | 2001 | | [address] | | | | | | [phone] | | | +--------+ + + + [...]
--- OUTSIDE RECORDS SUMMARY | ~2020-06-29 | XMS | Encounter Summary ---
Demographics + + + | Address | [address] | | | [place] [address] | + + + | Home Phone [...] Team Providers + +------+ + | Care Utility Teller Name | Role | Phone | + [...] | 12/11/ | Clinical | Laboratory at [facility] | | Lab Draw | | 2020 | Support | [address] | | | | | Staff | [facility] | | | | | | and Healing, | | | | | | [address] | | | | | | [place], [place] | | | | | | [address] | | | | | | [phone] | | | +--------+ + + + [...] | | PDT | kidney ([facility]) | results section. | + +--------+ + + + | [facility] - COMPLETE | Routin | 12/12/2019 | Renal cell | Results for this | | METABOLIC SET | e | 9:08 AM | carcinoma of left | procedure are in the | | | | PDT | kidney ([facility]) | results section. | + +--------+ + + + | FREE T4 | Routin | 12/12/2019 | Renal cell | Results for this | | | e | 9:08 AM | carcinoma of left | procedure are in the | | | | PDT | kidney ([facility]) | results section. | + +--------+ + [...] [facility] | [address] | [place] [address] | | | SERVICES, CORE | PARK [...] + + + | [facility] | [address] | [place] [address] | | | SERVICES, CORE | MELBA [...] + | [employer] | [address] | [place] [address] | | | SERVICES, CORE | PARK [...] | LABORATORY | | | [place] | | | SERVICES, | | | [...] LABORATORY | [address] | [place] [address] | | | SERVICES, [place] [facility] | | | | | HEALTH [...] | + + + + + | [employer] | [address] | [place] [address] | | | [facility] | | | | | HEALTH + HEALING | | | | + + + + + documented in this encounter Visit Diagnoses + + | Diagnosis | + + | 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
--- OUTSIDE RECORDS SUMMARY | ~2020-06-29 | XMS | Encounter Summary ---
Demographics + + + | Address | [address] | | | [place] [address] | + + + | Home Phone [...] Team Providers + +------+ + | Care Physical Science Technician Name | Role | Phone | [...] | 11/20/ | Clinical | Laboratory at [facility] | | | | 2019 | Support | [address] | | | | | Staff | [facility] | | | | | | and Healing, | | | | | | [address] | | | | | | [place], [place] | | | | | | [address] | | | | | | [phone] | | | +--------+ + + + [...] | | PDT | kidney ([facility]) | results section. | + [...] + + + + + | [facility] | [address] [facility] | [place] [address] | | | DWIGHT MARTINEZ | PARK [...] [facility] | [address] | [place] [address] | | | SERVICES, CORE | PARK [...] [facility] | [address] | [place] [address] | | | SERVICES, CORE | MELBA [...] SERVICES, | | | | | | [facility] | | | | | | [...] equation recommended by the National | [facility] | | Kidney Disease [...] + + + + + | [facility] | [address] | [place] [address] | | | [facility] | | | | | HEALTH [...] SERVICES, | | | | | | [facility] | | | | | | [...] JEANETTE OLIVAREZ | [address] | [place] [address] | | | [facility] | | | | | HEALTH + HEALING | | | | + + + + + documented in this encounter Visit Diagnoses + + | Diagnosis | + + | 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
--- OUTSIDE RECORDS SUMMARY | ~2020-06-29 | XMS | Encounter Summary ---
Demographics + + + | Address | [address] | | | [place] [address] | + + + | Home Phone [...] Team Providers + +------+ + | Care Category Director Name | Role | Phone | + +------+ + | Lissette Martinez PA-C | PCP | | + +------+ + Encounter Details +--------+------+ + + + | Date | Type | Department | Care Team | Description | +--------+------+ + + + | 09/12/ | Lab | Laboratory at [facility] | | Renal cell carcinoma | | 2020 | | [address] | | of left kidney | | | | [facility] | | ([facility]) | | | | and Healing, | | | | | | [address] | | | | | | [place], [place] | | | | | | [address] | | | | | | [phone] | | | +--------+------+ + + + [...] | | | PST | kidney ([facility]) | results section. | + +--------+ + + + | CBC AND AUTO DIFF | Routin | 09/12/2019 | Renal cell | Results for this | | | e | 11:34 AM | carcinoma of left | procedure are in the | | | | PST | kidney ([facility]) | results section. | + +--------+ + + + | CBC, WITH | Routin | 09/12/2019 | Renal cell | Results for this | | DIFFERENTIAL | e | 11:34 AM | carcinoma of left | procedure are in the | | | | PST | kidney ([facility]) | results section. | + [...] | + + + + + | [facility] | [address] | [place] [address] | | | [facility] | | | | | [...] LABORATORY | | | | | | [facility], | | | | | | [...] LABORATORY | [address] | [place] [address] | | | SERVICES, [facility] FOR | [...] LABORATORY | [address] | [place] [address] | | | SERVICES, [facility] | | | | | HEALTH [...] | | | LABORATORY | | | [facility] | | | SERVICES, | | | [...] SERVICES, | | | | | | [facility] | | | | | | [...] + + | Performing | Address | City/State/[facility] Cent[facility]ode | Phone Number | | Organization | | | | + + + + + | [facility] | [address] | [place] [address] | | | SERVICES, [facility] | | | | | HEALTH + HEALING | | | | + + + + + documented in this encounter Visit Diagnoses + + | Diagnosis | + + | 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) | + + documented in this encounter"
--- OUTSIDE RECORDS SUMMARY | ~2020-06-29 | XMS | Encounter Summary ---
Demographics + + + | Address | [address] | | | [place] [address] | + + + | Home Phone [...] Providers + +------+ + | Care Sales Team Recruiter Name | Role | Phone | + +------+ + | Lissette Martinez PA-C | PCP | | + +------+ + Encounter Details +--------+ + + + + | Date | Type | Department | Care Team | Description | +--------+ + + + + | 08/24/ | Pharmacy | Pharmacy @ [facility] | | | | 2019 | Visit | [address] | | | | | | [address] Mailcode: | | | | | | [facility] | | | | | | and Healing, | | | | | | [address] | | | | | | [place], [place] | | | | | | [address] | | | +--------+ + + + [...]
--- OUTSIDE RECORDS SUMMARY | ~2020-06-29 | XMS | Encounter Summary ---
Demographics + + + | Address | [address] | | | [place] [address] | + + + | Home Phone [...] Author + + + | Author | [facility] | | | and Shahram | + + + | Organization | [facility] | | | and Marcana | [...] Team Providers + +------+ + | Care Cane Stripper Name | Role | Phone | + +------+ + PCP | Unavailable | + +------+ + Encounter Details +--------+ + + + + | Date | Type | Department | Care Team | Description | +--------+ + + + + | 10/23/ | Hospital | [facility] | | | | 2006 - | Encounter | MED CTR CANCER | | | | | | CENTER [address] | | | | 11/04/ | | [place] | | | | 2006 | | [address] | | | | | | [phone] | | | +--------+ + + + [...]
--- OUTSIDE RECORDS SUMMARY | ~2020-06-29 | XMS | Encounter Summary ---
Demographics + + + | Address | [address] | | | [place] [address] | + + + | Home Phone [...] Providers + +------+ + | Care Game Farm Helper Name | Role | Phone | [...] | | | | | [place], | | | | | | [place] [address] | | | +--------+--------+ + + + [...]
--- OUTSIDE RECORDS SUMMARY | ~2020-06-29 | XMS | Encounter Summary ---
Demographics + + + | Address | [address] | | | [place] [address] | + + + | Home Phone [...] Team Providers + +------+ + | Care Artifacts Conservator Name | Role | Phone | + [...] | | | carcinoma of | [place] [address] [address] | [address] | | | | | left kidney | [address] | | | | | (HCC) | Ct | Center for | | | | | Procedures | [facility] | [facility] | | | | | [place] IN[place] | [place] | Healing, | | | | | [address] | [address] | [address] | | | | | [place] | Phone: | [place], [place] | | | | | CHM,IV | [phone] | [address] | | | | | INFSN,1 HR | Fax: | Phone: | | | | | [place] CHM,IV | [phone] | [phone] | | | | | INFSN,ADDL | | Fax: | | | | | [place] | | [phone] | | | | | nivolumab | [...] + + | 03/12/ | Hospital | [facility] | [address] | | | 2020 | Encounter | Clinics at S | [address] [place], [place] | | | | | [place] | [address] | | | | | [address] Center for | | | | | | Health and Healing, | | | | | | [address] | | | | | | [place], [place] | | | | | | [address] | | | | | | [phone] | | | +--------+ + + + [...]
--- OUTSIDE RECORDS SUMMARY | ~2020-06-29 | XMS | Encounter Summary ---
Demographics + + + | Address | [address] | | | [place] [address] | + + + | Home Phone [...] Providers + +------+ + | Care Chief Underwriter Name | Role | Phone | + +------+ + | Lissette Martinez PA-C | PCP | | + +------+ + Encounter Details +--------+ + + + + | Date | Type | Department | Care Team | Description | +--------+ + + + + | 10/29/ | Color Strainer | [facility] | Lissette Jones, | | | 2019 | | Clinics at S | [place] [address] | | | | | [place] | | | | | [address] [facility] for | [place], [place] | | | | | Health and Healing, | [address] | | | | | [address] | [phone] | | | | | [place], [place] | | | | | | [address] | | | | | | [phone] | | | +--------+ + + + [...]
--- OUTSIDE RECORDS SUMMARY | ~2020-06-29 | XMS | Encounter Summary ---
Demographics + + + | Address | [address] | | | [place] [address] | + + + | Home Phone [...] Team Providers + +------+ + | Care Risk Investigator Name | Role | Phone | [...] | | | | | | [place], [place] | | | | | | [address] | | | +--------+ + + + [...]
--- OUTSIDE RECORDS SUMMARY | ~2020-06-29 | XMS | Encounter Summary ---
Demographics + + + | Address | [address] | | | [place] [address] | + + + | Home Phone [...] Team Providers + +------+ + | Care Plate Preparer Name | Role | Phone | [...] | | | | neoplasm of | [place]ran | [address] | | | | | unspecified | [place] | [address] | | | | | kidney, | Family | [place], | | | | | except renal | Medicine | [place] [address] | | | | | pelvis | [address] | Phone: | | | | | Procedures | [address] | [phone] | | | | | [place] NEW | Ace, | Fax: | | | | | PATIENT | [place] [address] | [phone] | | | | | [place] | Phone: | | | | | | EST PATIENT | [phone] | | | | | | LEVEL V | Fax: | | | | | | | [phone] | | + +---------+ + + + + Encounter Details +--------+---------+ + + + | Date | Type | Department | Care Team | Description | +--------+---------+ + + + | 02/12/ | Office | [facility] | Lissette Jones, | Renal cell carcinoma | | 2020 | Visit | Clinics at S | [place] [address] | of left kidney | | | | [place] [address] | (HCC) (Primary Dx) | | | | [facility] for | [place], [place] | | | | | Health and Healing, | [address] | | | | | [address] | [phone] | | | | | [place], [place] | | | | | | [address] | | | | | | [phone] | | | +--------+---------+ + + + [...] speech. Appropriate mood/affect. Laboratory: LAB RESULTS: Clinical Civil Engineering Technician on 02/13/2020 Component Date Value WHITE CELL [...]
--- OUTSIDE RECORDS SUMMARY | ~2020-06-29 | XMS | Encounter Summary ---
Demographics + + + | Address | [address] | | | [place] [address] | + + + | Home Phone [...] Author | [facility] | | | and Shahram | + + + | Organization | [facility] | | | and Marcana [...] Providers + +------+ + | Care Wet End Helper Name | Role | Phone | [...] | | renal pelvis | Ave | [place] [address] | | | | | (HCC) | Tim, | Phone: | | | | | [address] | [place] | [phone] | | | | | Procedures | [address] | Fax: | | | | | [place] OFFICE | Phone: | [phone] | | | | | OUTPATIENT | [phone] | | | | | | VISIT 25 | Fax: | | | | | | MINUTES | [phone] | | +--------+--------+ + + + + Encounter Details +--------+ + + + + | Date | Type | Department | Care Team | Description | +--------+ + + + + | 12/06/ | Hospital | [facility] | Aileen Denson | Renal cell carcinoma | | 2020 | Encounter | MED [facility] RADIATION | MD Kh[place]o [address] | of left kidney | | | | ONCOLOGY CLINIC [address] | [place], [place] | ([facility]) (Primary Dx); | | | | [address] | [address] | Compression fracture | | | | [place] [address] | | of L2 vertebra, | | | | [phone] | | initial encounter | | | | | | ([facility]) | +--------+ + + + + Social [...] negative for metastatic disease 11/21/2019 Hospitalization at [facility] for hypotension, found to have massive pulmonary embloism . 11/21/2019 CT chest/abdomen/pelvis at [facility] stable left renal mass. Stable retroperitoneal ad enopathy. Liver lesions poorly visualized without IV contrast, stable to slightly increased. New L1 compression deformity with possible underlying lesion. Further compression fractur e of L2, status post kyphoplasty. Stable pulmonary nodules, inflammatory versus malignant. Current Treatment : Continues immunotherapy at [facility] with ipilimumab/nivolulmab on trail every 3 weeks, [...] Procedure: US GUIDED LIVER BIOPSY - Location: [facility] No family history on file. [...] file Gets together: Not on file Attends yazdanism service: Not on file Active member of [...] Compression fracture of L2 vertebra, initial encounter ([facility]) S32.020A 805.4 Today I met with Tila [...] ipilimumab and nivolumab, on clinical trial at [facility]. We will plan to inter digitate treatment [...] M.D. Radiation Oncologist Department of Radiation Oncology [facility] Office: [phone] signed by Aileen Denson MD at 05/31/2020 [...]
--- OUTSIDE RECORDS SUMMARY | ~2020-06-29 | XMS | Encounter Summary ---
Demographics + + + | Address | [address] | | | [place] [address] | + + + | Home Phone [...] Team Providers + +------+ + | Care Spar Finisher Name | Role | Phone | [...] at [facility] [address] | MD [address] [facility] | | | | | [address] | [facility] | | | | | [place], [facility] | [place], [place] | | | | | [place], [place] | [address] | | | | | | [phone] | | | | | [phone] | | | +--------+ + + + [...] last brain MRI was on 04/19/2020 at [facility] radiology and then had a phone follow [...] PM PDTAttempted to reach patient regarding incoming Insight Plus message sent to Dr. Beard today. Would like to discuss "seizure activity" further. Called patient, No answer, mailbox was full, not able to accept messages. Will reply back to Insight Plus message for patient to call [facility] and also route Insight Plus message to Dr. Leelectronically signed by Hemanth Cardenas RN at 05/01/2020 2:58 PM PDT documented in this encounter Plan of Treatment Not on filedocumented as of this encounter Visit Diagnoses Not on filedocumented in this encounter
--- OUTSIDE RECORDS SUMMARY | ~2020-06-29 | XMS | Encounter Summary ---
Demographics + + + | Address | [address] | | | [place] [address] | + + + | Home Phone [...] Team Providers + +------+ + | Care Nib Finisher Name | Role | Phone | [...] | | | carcinoma of | [place] [address] [address] | [address] | | | | | left kidney | [place] [address] | | | | | (HCC) | Ct | Center for | | | | | Procedures | [place], | [facility] and | | | | | [place] INJ | [place] | Healing, | | | | | [address]UMAB [address] | [address] | [address] | | | | | MG [place] | Phone: | [place], [place] | | | | | CHM,IV | [phone] | [address] | | | | | INFSN,1 HR | Fax: | Phone: | | | | | [place] CHM,IV | [phone] | [phone] | | | | | INFSN,ADDL | | Fax: | | | | | [place] | | [phone] | | | | | nivolumab | [...] Encounter | Clinics at S | Ave [place], [place] | | | | | [address] | [address] | | | | | [address] [facility] | | | | | | Health and Healing, | | | | | | [address] | | | | | | [place], [place] | | | | | | [address] | | | | | | [phone] | | | +--------+ + + + [...]
--- OUTSIDE RECORDS SUMMARY | ~2020-06-29 | XMS | Encounter Summary ---
Demographics + + + | Address | [address] | | | [place] [address] | + + + | Home Phone | | + + + | Preferred Language | Unknown | + + + | Marital Status | | + + + | Anglican Affiliation | 1013 | + + + | Race | or Other | + + + | Ethnic Group | Not or | + + + Author + + + | Author | [facility] | | | and Shahram | + + + | Organization | [facility] | | | and [...] Team Providers + +------+ + | Care Cold Rolling Supervisor Name | Role | Phone | [...] | | | [address] | [place] [address] | | | | | [place] [address] | | | | | | [phone] | | | +--------+ + + + [...]
--- OUTSIDE RECORDS SUMMARY | ~2020-06-29 | XMS | Encounter Summary ---
Demographics + + + | Address | [address] | | | [place] [address] | + + + | Home Phone [...] + +------+ + | Care Computer Information Science Professor Name | Role | Phone [...] | | Clinics at S | [place] [address] [address] | | | | | [address] | [address] | | | | | [facility] for | [place], [place] | | | | | Health and Healing, | [address] | | | | | [address] | [phone] | | | | | [place], [place] | | | | | | [address] | | | | | | [phone] | | | +--------+ + + + [...] visit frequency: 21 day(s) Ok to see OCTAVE BOARD ASSEMBLER/PA: Yes The following treatments/appointments may be scheduled at a [facility] Site: n/a Treatment Room Assessment LINE ACCESS INFO: PIVs OK. Vein assessment done on KM by 09/12. Specialized equipment needed: n/a Isolation needed: no Mobility issues: Independent with ADLs Toileting issues: Independent Psych/Social issues: none SNF/Living Facility: N/A Communication Analyst needed for future appointments: No Patient is participating in a Clinical Trial: No documented in this encount er Plan of Treatment Not on filedocumented as of this encounter Visit Diagnoses Not on filedocumented in this encounter"
--- OUTSIDE RECORDS SUMMARY | ~2020-06-29 | XMS | Encounter Summary ---
Demographics + + + | Address | [address] | | | [place] [address] | + + + | Home Phone [...] Team Providers + +------+ + | Care Glost Tile Shader Name | Role | Phone | + [...] | | Clinics at S | [place] [address] [address] | | | | | [address] | [address] | | | | | [facility] for | [place], [place] | | | | | Health and [facility], | [address] | | | | | [facility] | [phone] | | | | | [place], [place] | | | | | | [address] | | | | | | [phone] | | | +--------+ + + + [...]
--- OUTSIDE RECORDS SUMMARY | ~2020-06-29 | XMS | Encounter Summary ---
Demographics + + + | Address | [address] | | | [place] [address] | + + + | Home Phone [...] Team Providers + +------+ + | Care Char Conveyor Tender Name | Role | Phone | [...]
--- OUTSIDE RECORDS SUMMARY | ~2020-06-29 | XMS | Encounter Summary ---
Demographics + + + | Address | [address] | | | [place] [address] | + + + | Home Phone [...] Providers + +------+ + | Care Production Consultant Name | Role | Phone | [...] | | Clinics at S | [place] [address] [address] | Refill Request | | | | [address] | [address] | | | | | [facility] for | [place], [place] | | | | | Health and Healing, | [address] | | | | | [facility] 2 | [phone] | | | | | [place], [place] | | | | | | [address] | | | | | | [phone] | | | +--------+--------+ + + + [...] Johns MA - 12/14/2019 12:11 PM PDTCalled pharmacy confirmed they did not r eceived the Rx for oxyCODONE (immediate release) 5 mg oral tablet. cholecalciferol 50,000 unit oral capsule [facility]. I will Pend both Rx to be sent to pharmacy. elephone Encounter - Jessica Paiz - 12/14/2019 9:25 AM PDTP atient calling in w/ questions re her recent Rx and where they were sent. Patient req if sen t to [employer] [id number] [place], [place] - [address] [phone] Patient very agreeable to call back PAS confirmed call back ph# [phone] Routing to [facility] elephone Giovanna Del Castillo [...]
--- OUTSIDE RECORDS SUMMARY | ~2020-06-29 | XMS | Encounter Summary ---
Demographics + + + | Address | [address] | | | [place] [address] | + + + | Home Phone [...] Team Providers + +------+ + | Care Attendant Coin Operated Laundry Name | Role | Phone | + [...] | | Clinics at S | [place] [address] [address] | | | | | [address] | [address] | | | | | [facility] for | [place], [place] | | | | | Health and Healing, | [address] | | | | | [address] | [phone] | | | | | [place], [place] | | | | | | [address] | | | | | | [phone] | | | +--------+ + + + [...]
--- OUTSIDE RECORDS SUMMARY | ~2020-06-29 | XMS | Encounter Summary ---
Demographics + + + | Address | [address] | | | [place] [address] | + + + | Home Phone [...] Providers + +------+ + | Care Flight Operations Engineer Name | Role | Phone | [...] Encounter | Clinics at S | [place] [address] [address] | [place] | | | | [address] | | | | | [facility] for | [place], [place] | | | | | Health and Healing, | [address] | | | | | [address] | [phone] | | | | | [facility] [place] | | | | | | [address] | | | | | | [phone] | | | +--------+ + + + [...] AM [facility] Lissette Jones MD Outpatient Medication Detail Disp Refills oxyCODONE (immediate release) 5 mg oral tablet 120 tablet 0 Sig: Take 1 tablet by mouth every four hours as needed for severe pain. Sent to pharmacy as: oxyCODONE 5 mg tablet (ROXICODONE) Class: eRx Earliest Fill Date: 04/23/2020 Route: oral Order: [id number] E-Prescribing Status: Receipt confirmed by pharmacy (04/23/2020 9:10 AM PDT) Start Date Earliest Fill Date Apr 23, 2020 Apr 23, 2020 Per [facility] policy, routing encounter to [facility] for review and approval documented in this encounter Plan of Treatment Not on filedocumented as of this encounter Visit Diagnoses Not on filedocumented in this encounter"
--- OUTSIDE RECORDS SUMMARY | ~2020-06-29 | XMS | Encounter Summary ---
Demographics + + + | Address | [address] | | | [place] [address] | + + + | Home Phone | | + + + | Preferred Language | Unknown | + + + | Marital Status | | + + + | Congregation Affiliation | 1013 | + + + | Race | or Other | + + + | Ethnic Group | Not or | + + + Author + + + | Author | [facility] | | | and Shahram | + + + | Organization | [facility] | | | and Marcana [...] Team Providers + +------+ + | Care Bleach Range Operator Name | Role | Phone | [...] | | | [address] | [place] [address] | | | | | [place] [address] | | | | | | [phone] | | | +--------+ + + + [...]
--- OUTSIDE RECORDS SUMMARY | ~2020-06-29 | XMS | Encounter Summary ---
Demographics + + + | Address | [address] | | | [place] [address] | + + + | Home Phone [...] Team Providers + +------+ + | Care Statistical Developer Name | Role | Phone | [...] | | | | | [place]a [place], | | | | | | [place] [address] | | | +--------+--------+ + + + [...]
--- OUTSIDE RECORDS SUMMARY | ~2020-06-29 | XMS | Encounter Summary ---
Demographics + + + | Address | [address] | | | [place] [address] | + + + | Home Phone [...] Providers + +------+ + | Care Field Naturalist Name | Role | Phone | + [...] | | | | | cancer, | [address] | [address] [facility] | | | | | primary, | [place] | [facility] | | | | | with | Ct | Rd | | | | | metastasis | [place], | [place], [place] | | | | | from kidney | [place] | [address] | | | | | to other | [address] | Phone: | | | | | site, left | Phone: | [phone] | | | | | (HCC) | [phone] | Fax: | | | | | Procedures | Fax: | [phone] | | | | | CONSULT TO | [phone] | | | | | | NEUROSURGERY | | | | | | | [place] NEW | | | | | | | PATIENT | | | | | | | [place] | | | | | | | [...] | | | | | cancer, | [address] | [address] [facility] | | | | | primary, | [address] | [place] | | | | | with | Ct | Rd | | | | | metastasis | [facility], | [facility] [place] | | | | | from kidney | [place] | [address] | | | | | to other | [address] | Phone: | | | | | site, left | Phone: | [phone] | | | | | ([facility]) | [phone] | Fax: | | | | | Procedures | Fax: | [phone] | | | | | CONSULT TO | [phone] | | | | | | NEUROSURGERY [...] | Radiology | Diagnoses | [place], | [place] | | | | | Kidney | [place], | Health & | | | | | cancer, | [address] | [employer] | | | | | primary, | [address] | [address] [facility] | | | | | with | Ct | [address] | | | | | metastasis | [facility], | ROAD | | | | | from kidney | [place] | [place], [place] | | | | | to other | [address] | [address] | | | | | site, left | Phone: | Phone: | | | | | (HCC) | [phone] | [phone] | | | | | Procedures | Fax: | | | | | | MRI BRAIN | [phone] | | | | | | TUMOR [...] | | Clinics at S | [place] [address] [address] | admission, followed | | | | [address] | by release (scan | | | | [facility] for | [place], [place] | showed tumor) | | | | [employer] | [address] | | | | | [address] | [phone] | | | | | [place], [place] | | | | | | [address] | | | | | | [phone] | | | +--------+ + + + [...] placed for Neurosurgery consult. From: Lissette Jones <[email or web address]> Sent: February 4:27 PM To: Mateo Jean <[email or web address]>; Mike Perez <[email or web address]>; Ashlee Holley <[email or web address]> Cc: Stephanie Bustos <[email or web address]>; Paris Palomo <[email or web address]> Subject: RE: new urgent referral Thanks Mateo! [facility] Can you get referral to Dr. Bustos with MRI brain? JV From: Mateo Jean <[email or web address]> Sent: February 4:14 PM To: Lissette Jones <[email or web address]> Cc: Stephanie Bustos <[email or web address]>; Paris Palomo <[email or web address]> Subject: RE: new urgent referral Thanks for the referral. I am unfortunately out of town for the next couple of weeks. My partner Dr. Bustos told me can see the patient next week and would be happy to take care of he shelley Galindo elephone Encounter - Lito Diaz - 02/23/2020 3:51 PM PDTPAS received approval from dept toxicology supervisor the next a vail won't be [...] would like follow up by neuro at [facility], and will reach out to them via email. Encounter routed to medical appointment scheduler for urgent MRI scheduling. elephone Encounter - Tanya Márquez - 02/23/2020 11:22 AM PDTP t calling to report ER visit at [facility] for possible stroke last night. 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 Pt states that treating ER doctor did reach out and talked to [facility] communications technologist provider. Pt agreeable to call back to [...]
--- OUTSIDE RECORDS SUMMARY | ~2020-06-29 | XMS | Encounter Summary ---
Demographics + + + | Address | [address] | | | [place] [address] | + + + | Home Phone [...] Team Providers + +------+ + | Care Gasfitter Name | Role | Phone | + [...] | | Diabetes & | | MD Rdaha | [address] | | | | Metabolism | Hyperthyroid | [address] | Pavilion | | | | | ism | [address] | Loop | | | | | Procedures | Rd | Physician's | | | | | CONSULT TO | [place], [place] | Pavilion | | | | | ENDOCRINOLOG | [address] | Physician's | | | | | Y MS NEW | Phone: | Pavilion | | | | | PATIENT | [phone] | [place], [place] | | | | | LEVEL V MS | Fax: | [address] | | | | | EST PATIENT | [phone] | Phone: | | | | | LEVEL V | | [phone] | | | | | | | Fax: | | | | | | | [phone] | + +--------+ + + + + [...] + + | 11/20/ | Hospital | [facility] [address] | Eulalia Antonio, | | | 2019 - | Encounter | [address] | SHREYAS ROACH [address] | | | | | [place], [place] | [address] | | | 11/28/ | | [address] | [place], [place] | | | 2019 | | [phone] | [address] | | | | | | [phone] | | | | | | | | | | | | Lisa Steele, | | | | | | REDD-Casey [address] | | | | | | [address] | | | | | | [place], [place] | | | | | | [address] | | | | | | [phone] | | | | | | | | | | | | Jose Luis Segura | | | | | | MD Jasen [address] | | | | | | [address] | | | | | | [place], [place] | | | | | | [address] | | | | | | [phone] | | | | | | | | | | | | Tg Uriostegui MD | | | | | | [address] | | | | | | [facility], | | | | | | [place] [address] | | | | | | [phone] | | | | | | | | | | | | Lisa Sullivan MD | | | | | | [address] [facility] | | | | | | [facility], | | | | | | [place] [address] | | | | | | [phone] | | | | | | | | | | | | Nikki Márquez MD | | | | | | [address] [facility] | | | | | | [facility], | | | | | | [place] [address] | | | | | | [phone] | | | | | | | | | | | | Medina Thapa MD [address] | | | | | | [facility] | | | | | | [facility], [place] | | | | | | [address] | | | | | | [phone] | | | | | | | [...] DO - 11/29/2019 11:20 AM PDT [facility] Discharge Summary Discharging Provider: Lissette Jaime [...] was transferred to the MICU 11/22 after CANDY BAR ATTENDANT for a syncopal event 2/2 tacchyarhythmia and [...] heart strain # BL LE edema - [place] to be 2/2 to L renal vein [...] 8:20 AM LAB ONC RN Laboratory at [facility] [phone] PHLEBOTOMY 12/12/2019 8:55 AM Lissette Ortiz Hematology/Medical Oncology at [facility] g Arrive at: 10th Floor Hematology/Medical Oncology [phone] HemOnc 12/12/2019 10:20 AM Gen Onc Hematology/Medical Oncology at [facility] [phone] HemOnc 01/02/2020 9:00 AM LAB ONC RN Laboratory at [facility] [phone] PHLEBOTOMY 01/02/2020 9:45 AM Lissette Ortiz Hematology/Medical Oncology at [facility] ng Arrive at: 10th Floor Hematology/Medical Oncology [phone] HemOnc 01/02/2020 10:10 AM Gen Onc Hematology/Medical Oncology at [facility] [phone] HemOnc 01/06/2020 11:00 AM Vikki Damico [facility] at [facility] [phone] [facility] [place] Schedule the following appointment(s) when you get home Lissette Milner PA-C . Specialty: Physician Scheduling Representative Contact information [address] [place] [id number] Discharge Physical Exam: Last 24 hour min/max [...] Lissette Jaime, DO Internal Medicine, PGY2 Pager [phone] Associated attestation - Nikki Márquez MD - 11/29/2019 4:18 PM PDTA resident assisted [facility] documenting this service. I saw the patient and reviewed and verified all information doc umented by the resident, and made modifications to such information, when appropriate. Nikki Márquez MD [employer] Clinical and Teaching Hospitalist Services [facility] Pager [phone] I spent 37 minutes [id number] with the patient of which 58% was spent counseling the mare ent or in coordination of care surrounding discharge planning. documented in this encounter Discharge Instructions Discharge Instr - AVS First Page Lissette Jaime DO - 11/29/2019 7:02 AM PDTWho to Clark l: HOW TO REACH YOUR MEDICAL TEAM WITH QUESTIONS, CONCERNS, OR NEW SYMPTOMS: Thank you for e ntrusting your care to [facility] Internal Medicine. If you have any problems or concerns before y ou are able to follow up with your Primary Care Provider, please call and ask the bag machine operator helper to page the attending physician who was caring for you at discharge. If that p hysician is not available, ask the bag machine operator helper to page the physician on-call [...] hear from them please call them at [phone] to set up an appointment. You primitivo [...] labs to georgi Jaime DO ([facility] at [facility]) and Peggy Yoon MD (Endocrinology at [facility]) to e nsure these get appropriate [...] sent through Care Everywhere.enoxaparin (Eng vincenzo)Enoxaparin (Lovenox) (Belarusian)documented in this encounter Medications at Time of [...] MD - 11/29/2019 11:20 AM PDT [facility] Progress Note PATIENT: HANK ALTMAN : 1965 ADMIT DATE: 11/21/2019 12:12 PM DISCH DATE: 11/29/2019 11:20 AM RESPONDING PROVIDER #: [phone] Dear Provider, The dietitian notes patient meets [...] to disease process. Thank you, Odette [email or web address] Query created by: Odette Sotelo on 01/09/2020 [...] Date 11/28/19 0700 - 11/29/19 0659 Shift 4643-2756 [phone] 24 Hour Total INTAKE P.O. 100 100 [...] lymphoma s/p definitive CHOP + XRT c/b health care legal assistant josh hypothyroidism along with a more recently [...] - 11/28/2019 2:46 PM PDTA resident assisted [facility] documenting this service. I saw the patient [...] for discharge tomorrow am. Nikki Márquez MD [employer] Clinical and Teaching Hospitalist Services [facility] [place] Pager [phone] I spent 26 minutes in the care [...] Awaiting transfer to floor. LISA SULLIVAN MD [facility] [address] [place] [address] pJuan ramires MD - 11/26/2019 10:20 AM PDT [facility] MEDICAL ICU - PROGRESS NOTE Hospital [...] Primary Surrogate Decision Maker Amada Manzanares sister [phone] Secondary Surrogate Decision Maker William jay This [...] of renal cell carcinoma with hyperkalemia --> [facility] ed Hyperkalemia --> Medically manage Hem-Onc: Tumor [...] Code status/Family: Full code TG URIOSTEGUI MD [facility] [address] [place] [address] I spent 25 min in [...] kg (178 lb 6.4 oz) Mechanical Ventilation [place] body weight: 50.1 kg (110 lb 7.2 oz) Adjusted ideal body weight: 64.1 kg (141 lb 3.6 oz) , -- SpO2: 98 % (11/25/191999) Last PaO2/FiO2 ratio: Plateau: Driving Pressure: PAO2/FIO2 RATIO Date/Time Value Ref Range Status 08/26/2019 10:20 AM 419 >300 mmHg Final Lab Results Component Value Date PH 7.33 (L) 08/26/2019 PCO2 34 08/26/2019 PO2 88 08/26/2019 HCO3 18 (L) 08/26/2019 [id number] 97.2 08/26/2019 FIO2 0.21 08/26/2019 [id number] 419 08/26/2019 Lab Results Component Value Date VBGEXCESS -5.9 (L) 08/26/2019 VBGPH 7.29 (L) 08/26/2019 VBGPCO2 42 08/26/2019 VBGPO2 35 08/26/2019 VBGHCO3 20 (L) 08/26/2019 Up to Last 5 ABGs in 72 hours: No results for input(s): PH, PCO2, PO2, HCO3, IFHPD4PIQ, A6BRQIEV, N6LESFUKB, FIO2 in the l ast 72 hours. Lab Results Component Value Date PH 7.33 (L) 08/26/2019 PCO2 34 08/26/2019 PO2 88 08/26/2019 HCO3 18 (L) 08/26/2019 [id number] 97.2 08/26/2019 FIO2 0.21 08/26/2019 [id number] 419 08/26/2019 Recent Labs 11/21/19 1909 11/22/19 [...] Lab Results Lab Test Name Value Date [id number] 5.6 08/26/2019 Lab Results Lab Test Name Value Date URICACID 3.5 09/01/2019 Lab Results Lab Test Name Value Date FREET4 2.2 11/25/2019 TSH 3.44 11/23/2019 TPOAB 0.3 11/21/2019 [id number] 86 11/21/2019 Lab Results Component Value Date [...] 45 min with pt. LISA SULLIVAN MD [facility] [address] [facility] [address] [place] [address] Megha Wiggins MD - 11/24 6:46 AM PDT [facility] MEDICAL ICU - PROGRESS NOTE Hospital [...] Gross for the last 4 days Intake 95211.87 ml Output 4490 ml Net since Admission [...] trial diuresis as above. No indications for pipe bending machine operator. - Q12 BMP - ensure at least [...] Primary Surrogate Decision Maker Amada Manzanares sister [phone] Secondary Surrogate Decision Maker William jay This [...] status/Family: Currently full code TG URIOSTEGUI MD [facility] [address] [place] [address] I spent 25 min in [...] kg (178 lb 6.4 oz) Mechanical Ventilation [place] body weight: 50.1 kg (110 lb 7.2 oz) Adjusted ideal body weight: 64.1 kg (141 lb 3.6 oz) , -- SpO2: 99 % (11/24/191999) Last PaO2/FiO2 ratio: Plateau: Driving Pressure: PAO2/FIO2 RATIO Date/Time Value Ref Range Status 08/26/2019 10:20 AM 419 >300 mmHg Final Lab Results Component Value Date PH 7.33 (L) 08/26/2019 PCO2 34 08/26/2019 PO2 88 08/26/2019 HCO3 18 (L) 08/26/2019 Q2EMNWID 97.2 08/26/2019 FIO2 0.21 08/26/2019 [id number] 419 08/26/2019 Lab Results Component Value Date VBGEXCESS -5.9 (L) 08/26/2019 VBGPH 7.29 (L) 08/26/2019 VBGPCO2 42 08/26/2019 VBGPO2 35 08/26/2019 VBGHCO3 20 (L) 08/26/2019 Up to Last 5 ABGs in 72 hours: No results for input(s): PH, PCO2, PO2, HCO3, ZIZIC5TSR, J4CUDYEX, P5TRNDABY, FIO2 in the l ast 72 hours. Lab Results Component Value Date PH 7.33 (L) 08/26/2019 PCO2 34 08/26/2019 PO2 88 08/26/2019 HCO3 18 (L) 08/26/2019 [id number] 97.2 08/26/2019 FIO2 0.21 08/26/2019 [id number] 419 08/26/2019 Recent Labs 11/21/19 1909 11/22/19 [...] Lab Results Lab Test Name Value Date [id number] 5.6 08/26/2019 Lab Results Lab Test Name Value Date URICACID 3.5 09/01/2019 Lab Results Lab Test Name Value Date FREET4 2.4 11/24/2019 TSH 3.44 11/23/2019 TPOAB 0.3 11/21/2019 [id number] 86 11/21/2019 Lab Results Component Value Date [...] goals. Kassidy Chinchilla MD Hematology Oncology Fellow [id number] Associated attestation - Jacky Brand MD - 11/25/2019 8:29 AM PDTI reviewed history and physical examination of the patient and discussed her management with the fellow. I rev iewed the fellow's note and agree with the documented findings and plan of care. Jacky Brand MD [facility] [address] [place] [address] Cris Dinh MD - 11/24/2019 10:23 AM [...] is exclusive of procedures. Cris Dinh MD [facility] [address] [place] [address] oemi Cowan - 8:29 AM PDTTransthoracic echocardiogram completed. Final report to follow.John ically signed by Noemi Cowan at 11/24/2019 8:29 AM Megha Wiggins MD - 11/24/2019 8:09 AM PDT [facility] MEDICAL ICU - PROGRESS NOTE Hospital [...] Primary Surrogate Decision Maker Amada Manzanares sister [phone] Secondary Surrogate Decision Maker William jay This [...] Assoc. Prof. Pulm Crit Care | [facility] [address] | Mailcode: UHN-[id number] | [facility] [address] | Time spent in critical care 20 [...] and fluid resuscitation. Echocar diography performed by roving teller showed reduced RV function and normal LV [...] radiology has been paged. TG URIOSTEGUI MD [facility] [address] [place] [address] I spent 95 min in critical care. Including time spent at [facility], in discussion with int erventional radiology and [...] kg (178 lb 6.4 oz) Mechanical Ventilation [place] body weight: 50.1 kg (110 lb 7.2 oz) Adjusted ideal body weight: 64.1 kg (141 lb 3.6 oz) , -- SpO2: 100 % (11/23/192099) Last PaO2/FiO2 ratio: Plateau: Driving Pressure: PAO2/FIO2 RATIO Date/Time Value Ref Range Status 08/26/2019 10:20 AM 419 >300 mmHg Final Lab Results Component Value Date PH 7.33 (L) 08/26/2019 PCO2 34 08/26/2019 PO2 88 08/26/2019 HCO3 18 (L) 08/26/2019 [id number] 97.2 08/26/2019 FIO2 0.21 08/26/2019 [id number] 419 08/26/2019 Lab Results Component Value Date VBGEXCESS -5.9 (L) 08/26/2019 VBGPH 7.29 (L) 08/26/2019 VBGPCO2 42 08/26/2019 VBGPO2 35 08/26/2019 VBGHCO3 20 (L) 08/26/2019 Up to Last 5 ABGs in 72 hours: No results for input(s): PH, PCO2, PO2, HCO3, NDIYS8NAG, H3NCMUCY, T9QIKMTOA, FIO2 in the l ast 72 hours. Lab Results Component Value Date PH 7.33 (L) 08/26/2019 PCO2 34 08/26/2019 PO2 88 08/26/2019 HCO3 18 (L) 08/26/2019 [id number] 97.2 08/26/2019 FIO2 0.21 08/26/2019 [id number] 419 08/26/2019 Recent Labs 11/21/19 1909 11/22/19 [...] (H) 08/25/2019 Lab Results Component Value Date [id number] 5.6 08/26/2019 Lab Results Component Value Date URICACID 3.5 09/01/2019 Lab Results Component Value Date FREET4 2.7 11/23/2019 TSH 3.44 11/23/2019 TPOAB 0.3 11/21/2019 [id number] 86 11/21/2019 Lab Results Component Value Date [...] who agrees with the findings. Darlene Espitia Precision Agriculture Technician Associated attestation - Sina Barrientos MD - [...] the patient regarding treatment options and recommendations. [facility] Database Repository: IRB [id number] No Known Allergies Current Facility-Administered Medications Medication [...] PO2 88 08/26/2019 HCO3 18 (L) 08/26/2019 Y2EOKVDS 97.2 08/26/2019 FIO2 0.21 08/26/2019 [id number] 419 08/26/2019 Imaging: EKG findings: LBBB present: [...] our service with any questions. REDD ANGEL-Casey [facility] [address] [phone] eigh Ann Hussein DO - 11/23/2019 2:33 [...] Date 11/23/19 0700 - 11/24/19 0659 Shift 0604-9955 7527-0164 5639-5123 24 Hour Total INTAKE I.V. 10 10 [...] prophylaxis: Heparin BID -- Lines/catheters: PIVX1 -- PT/OT/UNDERWATER TRAPPER: N/A Disposition: Pending clinical course; if able to maintain blood pressures through evening a nd tomorrow afternoon, with improving thyroid serologies, can discharge to home as early as tomorrow afternoon. CODE: Full code SDM(s): Amada Manzanares (Sister) -- [phone] Leigh Ann Hussein, DO PGY-2 | Internal Medicine [id number] Associated attestation - Jose Luis Segura MD [...] is agreeable with our plans. Jose Luis Seguar MD [employer] Division of Hospital Medicine Teaching Attending I [...] for 11/22 - cholestyramine 4g once daily #JNOO on CKD IIIb #Hematuria #Proteinuria FeNa 3.2% [...] Primary Surrogate Decision Maker Amada Manzanares sister [phone] Secondary Surrogate Decision Maker William jay Disposition: Home when medically stable Pt seen and discussed with Dr. Segura and team. Odette Palacios MD Internal Medicine, PGY-1 Pager [phone] Noemi Horn - 11/22/2019 10:07 AM PDTTransthoracic [...] in AM. Cristopher Cooper MD Resident physician [facility] Dept [place] [phone] Internal Medicine History and Physical Attending Physician: [...] metastatic renal cell carcinoma (clear cell type). 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 Dixon Amaya MD PGY2 [id number] signed by Nikki Márquez MD at 11/27/2019 [...] well, discharge mid week. Nikki Márquez MD [employer] Clinical and Teaching Hospitalist Services [facility] Pager [phone] I spent 38 minutes in the care of this patient. Greater than 50% of the time was spent cou nseling and coordination of care, including treatment of PE, discharge planning. Juan Grossman MD - 11/23/2019 10:53 PM PDTFormatting of this note might be different f rom the original. 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 VDWZ=[id number], Class V. -IR consulted, appreciate recs: -feel [...] Primary Surrogate Decision Maker Amada Manzanares sister [phone] Secondary Surrogate Decision Maker William Talavera sister [...] was sent to the emergency department. 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 Jose Luis Segura MD [employer] Division of Hospital Medicine Teaching Attending I [...] IV LR 1L (1L was administered in CANDY BAR ATTENDANT) - Repeat BMP with improvement in serum [...] Primary Surrogate Decision Maker Amada Manzanares sister [phone] Secondary Surrogate Decision Maker William jay This patient will be staffed with attending physician, Dr. Flores within 24 hours. Plea se refer to excellent internet architect H&P for full problem based plan. Pavan Ramos MD Internal Medicine, PGY-2 Pager: [phone] awrLisa jha PA-C - 11/21/2019 2:37 PM [...] infusion clinic where she remained h ypotensive. CANDY BAR ATTENDANT was called and she was brought to [...] swollen today. 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 History [...] see CXR report for confirma tion Vein candy dipper hand technique: Ultrasound Guidance Techique: The standard Seldinger [...] critical care time . TG URIOSTEGUI MD [facility] [address] [place] [address] Juan Grossman MD - 11/23/2019 7:48 PM [...] critical care time . TG URIOSTEGUI MD [facility] [address] [place] [phone] documented in this encounter Consult Notes Abbie [...] If it i s done outside of [facility] please have results routed to her inbox. Anticipate levothyroxine shawn l need to be restarted at a decreased dose. Abbie Mack MD Endocrinology Fellow Pager [phone] Patient discussed with attending cable braider Dr. Regan Funk. alla, Nash Osorio [facility] - 11/27/2019 8:09 PM PDTForm [...] and make recommendations. Please page clinical pharmacist (#[phone]) or call central inpatient pharmacy ([phone]) with questions Thank you for the consult, Nash Dodge, PharmD Pager#: [phone] Subjective/Objective: Allergies: Patient has no known allergies. [...] Added to top of note ranci Soler [facility] - 11/26/2019 12:24 PM PDTFormatting [...] and make recommendations. Please page clinical pharmacist (#[phone]) or call central inpatient pharmacy ([phone]) with questions Allergies: Patient has no known [...] BP 90-100 still on norepi but off FLEET SALES ASSOCIATE 11/25: T4 1.8 off norepi BP 90/40 received IVF boluses which improved BP, transferring to sc oor - if continues to be hemodynamically [...] peripherally . Peggy Yoon Endocrine Fellow Pager [phone] I have staffed the patient with consult [...] BP 90-100 still on norepi but off FLEET SALES ASSOCIATE - can dc cholestyramine since having issues [...] to follow. Peggy Yoon Endocrine Fellow Pager [phone] I have staffed the patient with consult [...] - labs 1 week post discharge at [facility] (labs ordered by Peggy Yoon) - outpatient endocrine consult already placed Thank you for this consult. The endocrine consult team will continue to follow. 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, lungs, invasion of left pulm onary artery, L2 metastatic spread Patient Active Problem List Diagnosis Date Noted Hyperthyroidism 11/22/2019 Hypotension, unspecified hypotension type 11/21/2019 Closed compression fracture of body of L1 vertebra ([facility]) 11/21/2019 Hypothyroidism, unspecified type 11/21/2019 Renal cell carcinoma, unspecified laterality ([facility]) 11/21/2019 Hypotension 08/31/2019 Proteinuria 08/30/2019 Hematuria 08/30/2019 JONO (acute kidney injury) ([facility]) 08/30/2019 Elevated blood uric acid level 08/30/2019 Normocytic anemia 08/30/2019 Leukopenia 08/30/2019 Closed compression fracture of L2 lumbar vertebra, initial encounter ([facility]) 08/25/2019 Renal cell carcinoma of left kidney ([facility]) 08/25/2019 Hyperkalemia 08/24/2019 Hypothyroidism 08/24/2019 Compression fracture of L2 vertebra ([facility]) 08/24/2019 Renal cell adenocarcinoma ([facility]) 08/23/2019 Hypercalcemia of malignancy 08/23/2019 Surgical History: [...] 0659 11/23/19 07 - 11/24/19 0659 Shift 9636-0784 24 Hour Total 3512-1443 7879-0155 3329-0964 24 Hour Total INTAKE P.O. 620 580 580 I.V. 10 10 1000 1010 IV Piggyback 1000 Shift Total 1630 10 1580 1590 OUTPUT Urine(mL/kg/hr) 300(0.4) 1625(0.8) 850(1.3) 325 1175 Shift Total(mL/kg) 300(3.5) 1625(19.1) 850(10) 325(3.8) 1175(13.8) Weight (kg) 85 85 85 85 85 85 Date 11/23/19 07 - 11/24/19 0659 Shift 1044-6791 1861-1157 6908-7463 24 Hour Total INTAKE P.O. 580 580 [...] edited the note accordingly. Shaggy Michaels MD [employer] of Vascular and Interventional Radiology [facility] Department of Interventional Radiology [facility] Radha Beach MD - 11/23/2019 8:57 [...] Radha Beach MD PGY3 Internal Medicine pager [phone] I have staffed the patient with consult [...] hyperthyroidism and stabilization Peggy Yoon MD (pager [phone]) - RN please page primary team first Endocrinology Fellow Reason for Consult: hyperthyroidism Consult Attending: Isabel Requesting Attending: Jose Luis Segura MD Brief HPI: Patient Hodgkins Lymphoma [phone]. Patient had radiation to chest under chin to under tran ast bone. Radiation caused low thyroid. Patient has been on thyroid medication since 2002. 3 weeks ago dosage increased to 175 mcg from 150/135 mcg. No labs to check thyroid since [facility] that change. Patient has lost 30 pounds [...] non contrast imaging. Only imaging is at [facility]. No extra doses of thyroid medication [...] Hall MD Endocrinology, Diabetes and Clinical Nutrition [address] [place] [id number] Tres Sharp MD - 11/22/2019 8:51 [...] kidney #Metastatic disease to bone, liver, lung, MS LN #Hematuria #Chronic L renal vein thrombosis [...] and plan of care. Jacky Brand MD [facility] 4A [address] [place] [address] Karrie ROACH, Peggy - 11/21/2019 6:08 PM [...] blood pressure. Renal cell carcinoma on chemotherapy CANDY BAR ATTENDANT due to hypotension Asymptoamtic hypotension Tachycardic Pedal [...] 24-72 hours Peggy Yoon Endocrine Fellow Pager [phone] signed by Farrukh Hall MD at 11/22/2019 [...] for input(s): FIO2, PH, PCO2, PO2, HCO3, VZIPZ3FAN, L1GZSRNH, G5UGIMCRS in the l ast 720 hours. CSF [...] with staff Dennis Roa MD Neurosurgery PGY3 [id number] Risk and Morbidity Patient Risk Modifiers - Including but not limited to. Age: 54 y.o. female DNR: Full Code Transfer status/urgency : From Outside Hospital : From [facility] ER: Patient Acuity: 2 (11/21/19 122) [...] Eye Response: 4-->(E4) spontaneous (11/21/19 1220) Score (Joffre Coma Scale): 15 (11/21/19 1220) Comatose State: If GCS<9 Then patient by definition is in a comatose state Score (Joffre Coma Scale) Min: 15 Max: 15 Loss [...] 08/30/2019 Hematuria 08/30/2019 JONO (acute kidney injury) ([facility]) 08/30/2019 Elevated blood uric acid level 08/30/2019 Normocytic anemia 08/30/2019 Leukopenia 08/30/2019 Closed compression fracture of L2 lumbar vertebra, initial encounter ([facility]) 08/25/2019 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) 08/25/2019 Hyperkalemia 08/24/2019 Hypothyroidism 08/24/2019 Compression fracture of L2 vertebra ([facility]) 08/24/2019 Renal cell adenocarcinoma (HCC) 08/23/2019 Hypercalcemia [...] of care as documented. Horacio Coleman MD [place] Department of Neurological Surgery Formerly [facility] [place] Tres Dennis MD - 11/21/2019 5:20 PM [...] c/ns, localizing infectious symptoms per ED provider. CANDY BAR ATTENDANT was called, and transferred to the emergency [...] voice recognition software. Occasional wr jacob-word or "grohg-a-hvux" substitutions may have occurred due to the [...] and plan of care. Jacky Brand MD [facility] 4A [address] [place] [address] Aroldo Whyte - 11/21/2019 4:52 PM PDTFormatting of this note might be different from the sterling marley. Pharmacy Services: Team Otr Truck Driver Admission Medication Reconciliation I have reviewed the [...] Product Dose Route Frequency N/A Additional Information: Xdzwxdfmawfpuzn28,000 units cap, taking 1 cap once a week, last dose taken yesterday 11/19. Other medications last dose taken was this morning 11/20. Lovastatin 20mg tablet, last dose taken lasts night 11/19. No other OTCs, vitamins, eye/ear drops were reported. Confirmed with patient, MORIS. Allergies: No Known Allergies Pharmacy Preferences: [facility] #[id number] [place] [address] Hours: 9am-7pm Mon-fri / 9am-6pm Sat / 10am-5pm Sun E-Prescribing: Yes E-Prescribing Control Substances: Yes [facility] Building [address] [facility] Room [address] [place] [address] Hours: 8am-6pm Mon-thu E-Prescribing: Yes E-Prescribing Control Substances: Yes [facility] [address], [address] [place] [address] Hours: 8am-9pm Mon-fri; 9-5:30pm Sat-sun E-Prescribing: Yes [...] PDTAgree with plan as outlined by pharmacy delivery driver/internet architect/analytical lab technician. Samy Joseph, Pharm.D., [facility] Clinical Pharmacist, [place] [phone] documented in this encounter ED Notes Ginny [...] of arrival: Comments: AC16 Report given. ED DIRECTOR OF ONCOLOGY to bring pt.Electronically signed by Holly Brandon RN at 0 11/21/2019 2:51 PM Holly Siddiqui RN - 11/21/2019 2:46 PM PDTRN Admission/Transfe r Note Reason for admission: JONO, Elevated Potassium, volume resuscitation. Pertinent physical findings (Focused assessment, Pain/discomfort, Neuro, Cards/tele and Res p assessment): Patient non-symptomatic with BP 92/59 currently. NSR, sinus tach on classroom monitor with HR currently 105. Pertinent PMHx (See [...] infusion clinic where she remaine d hypotensive. CANDY BAR ATTENDANT was called and she was brought to [...] -> no current need for shift - ekg monitor ED Course Following Sign Out: Care signed out to the oncoming RADHA/ASBESTOS SURVEYOR/MD at the end of my shift. Mary [...] by Dr. Antonio and DENG COPE MD: [facility] Hank Altman is a 54 [...] the pt IV fluids and called an CANDY BAR ATTENDANT with transported ot the ED. PCP: Lissette [...] fracture of L2 lumbar vertebra, initial encounter ([facility]) 08/25/2019 Renal cell carcinoma of left [...] compression fracture of lumbar vertebra, initial encounter ([facility]) Hypertension Past Surgical History Procedure Date C [...] (H) 0.60 - 1.10 mg/dL EGFR - ALBANIAN 20 (L) >60 mL/min EGFR NON -ALBANIAN 17 (L) >60 mL/min SODIUM, PLASMA (LAB) [...] (H) 0.60 - 1.10 mg/dL EGFR - ALBANIAN 19 (L) >60 mL/min EGFR NON -ALBANIAN 15 (L) >60 mL/min SODIUM, PLASMA (LAB) [...] (H) 0.60 - 1.10 mg/dL EGFR - ALBANIAN 20 (L) >60 mL/min EGFR NON -ALBANIAN 17 (L) >60 mL/min SODIUM, PLASMA (LAB) [...] (H) 0.60 - 1.10 mg/dL EGFR - ALBANIAN 20 (L) >60 mL/min EGFR NON -ALBANIAN 17 (L) >60 mL/min SODIUM, PLASMA (LAB) [...] y.o. female presenting from infusion clinic after CANDY BAR ATTENDANT was called lelo mireles to asymptomatic hypotension. [...] compression fracture of body of L1 vertebra ([facility]) E87.5 Hyperkalemia E03.9 Hypothyroidism, unspecified type C64.9 Renal cell carcinoma, unspecified laterality ([facility]) E05.90 Hyperthyroidism E83.52 Hypercalcemia of malignancy S32.020A Closed compression fracture of L2 lumbar vertebra, initial encounter ([facility]) C64.2 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) E79.0 Elevated blood uric acid level D64.9 Normocytic anemia PLAN, DISPOSITION AND FOLLOW-UP: Admitted to ED obs, stable Current Discharge Medication List Luh Pearce RN - 11/21/2019 12:21 PM PDTBIBA from [facility] for hypotension. Pt was there for [...] - 11/21/2019 11:49 AM PDTPT coming from [facility] for hypotension, BP 60/30---->70/30 cbg 108mg/dL [...] WC to sister's car to home in [place]. andoff - Ellie Holguin RN - 11/28/2019 5:42 PM PDTNursing Handoff Patient Daily Goal: discharge tomorrow (11/28/19 0842) Patient Specific Preferences: Raise and lower HOB slowly 2/2 motion sickness. (1999) [facility] IP NURSE HANDOFF: [facility] [...] jennaa l. Occupational Therapy Evaluation and Treatment [id number] HANK CHANCEH Date of : 1965 Start of care: 11/21/2019 Date of onset: 11/21/2019 Referring/Attending Practitioner: Nikki Márquez MD Primary/Referral Diagnosis/ICD-9: I95.9 Hypotension, unspecified hypotension type N17.9 JONO (acute kidney injury) ([facility]) S32.010A Closed compression fracture of body of L1 vertebra ([facility]) E87.5 Hyperkalemia E03.9 Hypothyroidism, unspecified type C64.9 Renal cell carcinoma, unspecified laterality ([facility]) E05.90 Hyperthyroidism E83.52 Hypercalcemia of malignancy S32.020A Closed compression fracture of L2 lumbar vertebra, initial encounter ([facility]) C64.2 Renal cell carcinoma of left kidney ([facility]) E79.0 Elevated blood uric acid level D64.9 Normocytic anemia Insurance: Payor: [employer] / Plan: [employer] / Product Type: Indemnity / Service period: [...] feet access Toileting: modified independent Bathing: NT [facility] daily activity assessment [facility] DAILY ACTIVITY - How much help from another person does the patient currently need f or: Lower body dressing 2 - Alot Bathing 3 - Little Toileting 4 - None Upper body dressing 4 - None Personal grooming 4 - None Eating meals 4 - None [facility] Daily Activity Total Score 21 1 - [...] assistance. Discharge recommendations below. ? Interpretation of [facility] Short Form Daily Activity: Score (in points) [...] lower HOB slowly 2/2 motion sickness. (1999) [facility] IP NURSE HANDOFF: [facility] [...] Evaluation 11/27/2019 3:21 PM Hospital Day: 6 [id number] HANK ALTMAN Date of : 1965 Start of care: 11/21/2019 Referring/Attending Practitioner: Nikki Márquez MD Primary/Referral Diagnosis/ICD-9: I95.9 Hypotension, unspecified hypotension type N17.9 JONO (acute kidney injury) ([facility]) S32.010A Closed compression fracture of body of L1 vertebra ([facility]) E87.5 Hyperkalemia E03.9 Hypothyroidism, unspecified type C64.9 Renal cell carcinoma, unspecified laterality ([facility]) E05.90 Hyperthyroidism E83.52 Hypercalcemia of malignancy S32.020A Closed compression fracture of L2 lumbar vertebra, initial encounter ([facility]) C64.2 Renal cell carcinoma of left kidney ([facility]) E79.0 Elevated blood uric acid level D64.9 Normocytic anemia Insurance: Payor: [facility] / Plan: [facility] / Product Type: Indemnity / [...] Patient / Family Goal: return home Language: macanese Individuals present for session other than therapist [...] rehabilitation: assessment and treatme nt (5th ed.). Fannin: Migue iRce [facility]. p.254 Mobility & Transfers: Supine to [...] 75-100% of activity Depend ent Outcome Measure(s): [facility] BASIC MOBILITY Difficulty turning over in [...] w/railing 2 - Alot - Maximum/Moderate Assistance [facility] Basic Mobility Total Score 17 Interpretation of [facility] Short Form - Basic Mobility: CMS [...] wheeled walker Neville Simmons PT, DPT Pager [phone] Should this patient discharge from the hospital prior to the next physical therapy treatmen t, this note shall serve as the discharge summary. andoff - Anita Dowling RN - 11/27/2019 1:39 AM PDTNursing Handoff Patient Daily Goal: Improve mobility (11/26/19 2819) Patient Specific Preferences: Raise and lower HOB slowly 2/2 motion sickness. (1999) [facility] IP NURSE HANDOFF: [facility] [...] Handoff Patient Daily Goal: Improve mobility (11/26/19 7436) Patient Specific Preferences: Raise and lower HOB slowly 2/2 motion sickness. (1999) [facility] IP NURSE HANDOFF: [facility] [...] lower HOB slowly 2/2 motion sickness. (1999) [facility] IP NURSE HANDOFF: [facility] [...] admitted to MICU on 11/[address] CANDY BAR ATTENDANT with syncopal event and tacchyarhythmia and worse [...] lower HOB slowly 2/2 motion sickness. (1999) [facility] IP NURSE HANDOFF: [facility] [...] following, Leah Paiz, MS, RD, LD Pager #[phone] Admitting Dx: Hank Altman is a 54 [...] hx: 95.7 kg (08/16/19) Estimated Nutrition Needs: 5095-0257 kcals (25-30 kcal/kg Adj BW), 69-87 gm [...] Monitorin g;NIBP Monitoring;SpO2 Monitoring (11/23/191821) Situation: Situation: CANDY BAR ATTENDANT called for code blue activation. Patient awake and communicative by the time CANDY BAR ATTENDANT arrives. Primary team at bedside and believes the patient may have vaso-vagaled. After wards, her HR was elevated, her BP was trending down, she required more oxygen and looked di aphoretic, complaining of chest pain. Labs were drawn, EKG and chest x-ray was taken, 1L LR started. Patient transferred to with CANDY BAR ATTENDANT, MICU fellow and CPRN. Cards to consult. [...] team) (11/23/191821) Caller: Infusion Clinic (11/21/19 1210) CANDY BAR ATTENDANT RN: NatalyElectronmary kay signed by Nataly Kaminski RN at 11/23/2019 6:49 PM PDTTran sfer Note - Leigh Ann Hussein DO - 11/23/2019 6:34 PM PDTBRIEF CANDY BAR ATTENDANT/TRANSFER NOTE Moose estrada called around 18:00 for [...] MICU for consideration of thrombolytic vs. he ehlen gtt. In brief, patient is a 54 [...] Full code SDM(s): Amada Glenna (Sister) -- [phone] Leigh Ann Hussein DO PGY-2 | Internal Medicine [id number] signed by Leigh Ann Hussein DO at 11/23/2019 6:50 PM PDTPlan of Care - Nadiya Monreal MSW - 11/23/2019 6:34 PM PDTSW responded to code. SW provided emotional support to patient's sister. ILAN Lloyd, [facility] Evening/Weekend Social Work Pager: [phone] ignificant Event - Josh Ratliff, MISAEL - [...] pain to be managed at 10/17 (11/21/192124) [facility] IP NURSE HANDOFF: [facility] [...] pain to be managed at 2/10 (11/21/192124) [facility] IP NURSE HANDOFF: [facility] [...] pain to be managed at 2/10 (11/21/192124) [facility] IP NURSE HANDOFF: [facility] [...] pain to be managed at 2/10 (11/21/192124) [facility] IP NURSE HANDOFF: [facility] [...] labs at noon. Barriers to discharge: TBD. [facility] Devon Bañuelos - 11/21/2019 12:01 PM PDT12:00 PM 11/21/2019 M333, 7 min eta. 54 yof, coming from [facility], was there for infusion. Had low [...] CT Initial BP 74/57 with HR 106 CANDY BAR ATTENDANT called Just IV in Vitals same Dizzy but otherwise asymptomatic Baseline Cr ~1.5 Today Cr 3.8 Coming by ambulance after CANDY BAR ATTENDANT [facility] Miranda Mcconnell - 11/21/2019 11:48 AM [...] [facility] | [address] | [place], [place] | | | [facility] | [facility] | [address] | | | TESTS | | | [...] (L) | 70 - 99 mg/dL | [facility] - | | | GLUCOSE, | [...] [facility] | [address] | [place], [place] | | | [facility] | [address] | [address] | | | TESTS | | | [...] [facility] | [address] | [place] [address] | | | SERVICES, CORE | PARK [...] + | [facility] | [address] | [place] [address] | | | SERVICES, CORE | PARK [...] [facility] | [address] | [place] [address] | | | SERVICES, CORE | PARK [...] [facility] | [address] | [place] [address] | | | SERVICES, CORE | MELBA [...] | + + + + + | [facility] | [address] | [place] [address] | | | SERVICES, CORE | PARK [...] | + + + + + | [facility] | [address] | [place] [address] | | | SERVICES, CORE | PARK [...] | + + + + + | [facility] | [address] | [place] [address] | | | SERVICES, CORE | PARK [...] - | | | | | [facility] | | + +-------+ + [...] | + + + + + | [facility] - | [id number] | [place] [address] | | | [place] | | | | + + + [...] | + + + + + | [facility] | [address] | [place] [address] | | | DWIGHT MARTINEZ | MELBA [...] [facility] | [address] | [place], [place] | | | [facility]EN [facility] OF CARE | [address] | [address] | | | TESTS | | | [...] - [facility] | [address] | [place], [place] | | | [facility] | [address] | [address] | | | TESTS | | | [...] [facility] | [address] | [place], [place] | | | [facility]ARE | [address] | [address] | | | TESTS | | | [...] [facility] | [address] | [place], [place] | | | [facility] | [address] | [address] | | | TESTS | | | [...] MDRD equation recommended by the National | [facility] | | Kidney Disease Education Program. [...] | + + + + + | [facility] | [address] | [place] [address] | | | SERVICES, CORE | PARK [...] (H) | 0.6 - 1.2 ng/dL | [facility] | | | | | | [...] [facility] | [address] | [place] [address] | | | SERVICES, CORE | PARK [...] | + + + + + | [facility] | [address] | [place] [address] | | | SERVICES, CORE | MELBA [...] [facility] | [address] | [place], [place] | | | [facility] | [address] | [address] | | | TESTS | | | [...] [facility] | [address] | [place], [place] | | | [facility] | [facility] | [address] | | | TESTS | | | [...] [facility] | [address] | [place], [place] | | | [facility] | [address] | [address] | | | TESTS | | | [...] | + + + + + | [facility] | [address] | [place] [address] | | | SERVICES, CORE | PARK [...] [facility] | [address] | [place] [address] | | | SERVICES, CORE | PARK [...] [facility] | [address] | [place], [place] | | | [facility] | [facility] | [address] | | | TESTS | | | [...] | + + + + + | [facility] | [address] | [place] [address] | | | SERVICES, CORE | PARK [...] | + + + + + | [facility] | [address] | [place] [address] | | | SERVICES, CORE | PARK [...] 87 | 70 - 99 mg/dL | [facility] - | | | GLUCOSE, | | [...] [facility] | [address] | [place], [place] | | | [facility] | [facility] | [address] | | | TESTS | | | [...] | + + + + + | [facility] | [address] | [place] [address] | | | SERVICES, CORE | MELBA [...] | + + + + + | [facility] | [address] | [place] [address] | | | SERVICES, CORE | PARK [...] [facility] | [address] | [place] [address] | | | DWIGHT MARTINEZ | MELBA [...] | + + + + + | [facility] | [address] | [place] [address] | | | SERVICES, CORE | MELBA [...] 27 (H) | 8 - 25 | [facility] | [...] MDRD equation recommended by the National | [facility] | | Kidney Disease Education Program. [...] | + + + + + | [facility] | [address] | [place] [address] | | | SERVICES, CORE | MELBA [...] | + + + + + | [facility] | [address] | [place] [address] | | | SERVICES, CORE | MELBA [...] MDRD equation recommended by the National | [facility] | | Kidney Disease Education Program. [...] | + + + + + | [facility] | [address] | [place] [address] | | | DWIGHT MARTINEZ | MELBA [...] [facility] | [address] | [place] [address] | | | SERVICES, CORE | PARK [...] [facility] | [address] | [place] [address] | | | SERVICES, CORE | PARK [...] [facility] | [address] | [place] [address] | | | SERVICES, CORE | PARK [...] | + + + + + | [facility] | [address] | [place] [address] | | | SERVICES, CORE | MELBA [...] MDRD equation recommended by the National | [facility] | | Kidney Disease Education Program. [...] | + + + + + | [facility] | [address] | [place] [address] | | | SERVICES, CORE | MELBA [...] | + + + + + | [facility] | [address] | [place] [address] | | | SERVICES, DWIGHT | MELBA [...] [facility] | [address] | [place] [address] | | | MICHELLE, CORE | MELBA [...] MDRD equation recommended by the National | [facility] | | Kidney Disease Education Program. [...] [facility] | [address] | [place] [address] | | | SERVICES, CORE | PARK [...] [facility] | [address] | [place] [address] | | | SERVICES, CORE | PARK [...] | + + + + + | [facility] | [address] | [place] [address] | | | SERVICES, CORE | MELBA [...] (H) | 70 - 99 mg/dL | [facility] - | | | GLUCOSE, | [...] [facility] | [address] | [place], [place] | | | [facility] | [address] | [phone] | | | TESTS | | | [...] | + + + + + | [facility] | [address] | [place] [address] | | | DWIGHT MARTINEZ | MELBA [...] Note | + + | Service Account, Cost Effective Data Res In Interface - 11/24/2019 4:02 PM [...] [facility] | [address] | [place] [address] | | | SERVICES, CORE | PARK [...] [facility] | [address] | [place] [address] | | | SERVICES, CORE | PARK [...] [facility] | [address] | [place] [address] | | | MICHELLE, CORE | PARK [...] MDRD equation recommended by the National | [facility] | | Kidney Disease Education Program. Estimated GFR Interpretive | LABORATORY | | Information: <60 mL/min/1.73 sq m Chronic Kidney | SERVICES, [facility] | | Disease <15 mL/min/1.73 sq m [...] | + + + + + | [facility] | [address] | [place] [address] | | | MICHELLE, DWIGHT | MELBA [...] | + + + + + | [facility] | [address] | [place] [address] | | | SERVICES, CORE | PARK [...] | + + + + + | [facility] | [address] | [place] [address] | | | SERVICES, DWIGHT | MELBA [...] report for | | | confirmation Vein candy dipper hand technique: Ultrasound Guidance | | | Techique: [...] [facility] | [address] | [place], [place] | | | CARDIOLOGY | [address] | [address] | | + + + + + [...] [facility] | [address] | [place] [address] | | | SERVICES, CORE | PARK [...] MDRD equation recommended by the National | [facility] | | Kidney Disease Education Program. [...] | + + + + + | [facility] | [address] | [place] [address] | | | MICHELLE, DWIGHT | MELBA [...] (H) | 70 - 99 mg/dL | [facility] - | | | GLUCOSE, | [...] [facility] | [address] | [place], [place] | | | [facility]NE POINT OF CARE | [address] | [address] | | | TESTS | | | [...] | + + + + + | [facility] | [address] | [place] [address] | | | SERVICES, CORE | PARK [...] |Critical results were discussed with Dr. Alejandra Saeg and the ICU team on 11/23/2019 10:04 [...] At | + + + | EXAM: MS CHEST 1 VIEW HISTORY: L IJ line [...] the report as now presented. Final signature: Jha Gilmore MD | | | 11/24/2019 9:01 AM Preliminary: Jah Gilmore MD Dictation | | | initiated: Jah Gilmore MD 11/24/2019 9:00 AM | | + + + + + | Procedure Note | + + | Service Account, Cost Effective Data Res In Interface - 11/24/2019 9:02 AM PDT EXAM: MS CHEST 1 | | VIEW HISTORY: L [...] At | + +---- + | [facility] | [facility] DEPT OF | | [facility] Adult Echocardiography [facility] [address] | | [place] [address] Ph: | | | Pt Name: HANK ALTMAN | | | Study Date/Time 11/23/2019 / 6:54:37 PMMRN: [id number] | | | Most recent prior: 11/22/2019Acc #: [id number] | | | No. previous echos: 2DOB: 1965 54 years | | | Heart Rate: 75 bpmHeight: 62.0 in | | | Blood Pressure: 100/73 mm/HgWeight: 187.0 lb | | | Gender: FBSA: 1.86 m | | | Order ID: [id number] Study | | | Location: 7ASonographer: Darlene [...] Report electronically signed by: | | | [id number] Annette Martinez MD, PhD (11/24/2019, 8:55:30 AM) [...] | | | |Report electronically signed by: [id number] Annette Martinez MD, PhD (11/24/2019, | | |8:55:30 AM) | | | | | | | | | | | | Final | | + +---- + + + | Procedure Note | + + | Interface, Cardiology Results - 11/24/2019 8:55 AM PDT Formerly [facility] [place] | | [facility] Echocardiography Laboratory [address] [place] [address] | | [place], [place] [address] Pt Name: HANK ALTMAN | | Study Date/Time 11/23/2019 / 6:54:37 PMMRN: [id number] [facility] | | recent prior: 11/22/2019Acc #: [id number] No. previous echos: 2DOB: | | 1965 54 years Heart Rate: 75 bpmHeight: 62.0 in Blood | | Pressure: 100/73 mm/HgWeight: 187.0 lb Gender: FBSA: | | 1.86 m | | Order ID: [id number] Study Location: 7ASonographer: Darlene | | SunnyriSonographer [...] effusion is seen. Report electronically signed by: [id number] Annette Martinez MD, PhD | | (11/24/2019, [...] | | | |Report electronically signed by: [id number] Annette Martinez MD, PhD (11/24/2019, | |8:55:30 AM) | | | | | | | | Final | + + + + + + + | Performing | Address | City/State/Zipcode | Phone Number | | Organization | | | | + + + + + | [facility] | [address] | [place], [place] | | | CARDIOLOGY | [address] | [address] | | + + + + + X-RAY PORTABLE CHEST 1 VIEW (11/23/2019 6:29 PM PDT) + + | Specimen | + + | | + + + + + | Narrative | Performed At | + + + | EXAM: MS CHEST 1 VIEW HISTORY: Shortness of breath [...] Interface - 11/24/2019 10:00 AM PDT EXAM: MS CHEST 1 | | VIEW HISTORY: Shortness [...] Omayra Azar MD | |Dictation initiated: Omayra Aazr MD 11/24/2019 8:13 AM | + + [...] [facility] | [address] | [place] [address] | | | MICHELLE, CORE | MELBA [...] [facility] | [address] | [place] [address] | | | SERVICES, CORE | MELBA [...] 25.2 (L) | 26.0 - 36.0 | [facility] | | | | | seconds | [...] [facility] | [address] | [place] [address] | | | SERVICES, CORE | PARK [...] | + + + + + | [facility] | [address] | [place] [address] | | | SERVICES, CORE | PARK [...] | + + + + + | [facility] | [address] | [place] [address] | | | SERVICES, CORE | MELBA [...] | + + + + + | [facility] | [address] | [place] [address] | | | SERVICES, CORE | PARK [...] | + + + + + | [facility] | [address] | [place] [address] | | | SERVICES, CORE | MELBA [...] DEPT OF | [address] | [place], [place] | | | CARDIOLOGY | [address] | [address] | | + + + + + [...] MDRD equation recommended by the National | [facility] | | Kidney Disease Education Program. [...] | + + + + + | [facility] | [address] | [place] [id number] | | | SERVICES, [facility] | [address] | | | + [...] | | | | | | Supine: [place] (1-7 | | | | | | [...] D: | | | | | | [email or web address] | | | | | | med by [facility] | | | | | | Formerly [facility],[address] [place] [address] | | | | | | [place] [address] | | | | | | [phone].Swapbox. | | | | | | [facility] center[facility]is MD, | | | | [...] [facility] | [address] | [place], [place] | | | UNIV PTH - INTFC | | [address] | | + + + + + [...] | | | this test in the [facility] | | | | | | Laboratory Test | | | | | | Directory | | | | | | ([email or web address].Pirq).Performed | | | | | | by [facility],[address] | | | | | | [place], [place] | | | | | | [address] | | | | | | [phone].Holidulab. | | | | | | [facility], Denis Pitts MD, | | [...] [facility] | [address] | [place], [place] | | | UNIV PTH - INTFC | | [address] | | + + + + + [...] | + + + + + | [facility] | [address] | [place] [address] | | | SERVICES, CORE | MELBA [...] MDRD equation recommended by the National | [facility] | | Kidney Disease Education Program. [...] | + + + + + | [facility] | [address] | [place] [address] | | | SERVICES, CORE | PARK [...] | + + + + + | [facility] | [address] | [place] [address] | | | SERVICES, CORE | PARK [...] [facility] | [address] | [place] [address] | | | SERVICES, CORE | PARK [...] MDRD equation recommended by the National | [facility] | | Kidney Disease Education Program. [...] | + + + + + | [facility] | [address] | [place] [address] | | | SERVICES, CORE | PARK [...] [facility] | [address] | [place] [address] | | | SERVICES, CORE | PARK [...] | + + + + + | [facility] | [address] | [place] [address] | | | SERVICES, CORE | MELBA [...] [facility] | [address] | [place], [place] | | | K[facility]EN [facility] OF CARE | [address] | [address] | | | TESTS | | | [...] [facility] | [address] | [place], [place] | | | J[place]NE [place] OF CARE | [address] | [address] | | | TESTS | | | [...] + + + + + | [facility] | [address] | [place], [place] | | | CARDIOLOGY | [address] | [address] | | + + + + + [...] | + + + + + | [facility] | [address] | [place] [address] | | | SERVICES, CORE | MELBA [...] | + + + + + | [facility] | [address] | [place] [address] | | | SERVICES, DWIGHT | MELBA [...] At | + ----+ + | [facility] | [facility] DEPT OF | | [facility] Adult Echocardiography Laboratory [address] | CARDIOLOGY | | [place], [place] [address] Ph: | | | Pt Name: HANK ALTMAN | | | Study Date/Time 11/22/2019 / 9:28:58 AMMRN: [id number] | | | Most recent prior: 08/26/2019Acc #: [id number] | | | No. previous echos: 1DOB: 1965 54 years | | | Heart Rate: 109 bpmHeight: 63.0 in | | | Blood Pressure: 96/56 mm/HgWeight: 178.0 lb | | | Gender: FBSA: 1.84 m | | | Order ID: [id number] Study | | | Location: 4ASonographer: Noemi [...] Report | | | electronically signed by: [id number] Silva Herrera MD (11/22/2019, | | | [...] | | | |Report electronically signed by: [id number] Silva Herrera MD (11/22/2019, 11:04:06 AM) | | | | | | | | | | | | Final | | + ----+ + + + | Procedure Note | + + | Interface, Cardiology Results - 11/22/2019 11:04 AM PDT [facility] | | [facility] Echocardiography Laboratory [address] [place] [address] | | [place], [place] [address] Pt Name: HANK MONCADA | | [facility] Study Date/Time 11/22/2019 / 9:28:58 AMMRN: [id number] Most | | recent prior: 08/26/2019Acc #: [id number] No. previous echos: 1DOB: | | 1965 54 years Heart Rate: 109 bpmHeight: 63.0 in Blood | | Pressure: 96/56 mm/HgWeight: 178.0 lb Gender: FBSA: | | 1.84 m | | Order ID: [id number] Study Location: 4ASonographer: Nomei | | Camryn RCSReferring Provider: LISA STEELEModst. mark's hospital Performed: 2D, Color flow, | | [...] and indexed values Report electronically signed by: [id number] [facility] | | Javier ROACH (11/22/2019, 11:04:06 [...] | | | |Report electronically signed by: [id number] Silva Herrera MD (11/22/2019, 11:04:06 AM) | | | | | | | | Final | + + + + + + + | Performing | Address | City/State/Zipcode | Phone Number | | Organization | | | | + + + + + | [facility] DEPT OF | [address] | [place], [place] | | | CARDIOLOGY | [address] | [address] | | + + + + + [...] [facility] | [address] | [place], [place] | | | KAREN CASANOVA OF KATHERINE | [facility] | [address] | | | TESTS | | | | + + + + + CAPILLARY BLOOD GLUCOSE (NO CHG), POC (11/22/2019 7:19 AM PDT) + +-------+ + + + | Component | Value | Ref Range | Performed | Pathologist | | | | | At | Signature | + +-------+ + + + | BLOOD | 91 | 70 - 99 mg/dL | [facility] - | | | GLUCOSE, | [...] [facility] | [address] | [place], [place] | | | [facility] [place] OF [facility] | [address] | [address] | | | TESTS | | | [...] | + + + + + | [facility] | [address] | [place] [address] | | | SERVICES, CORE | [address]EL[address] [...] | + + + + + | [facility] | [address] | [place] [address] | | | SERVICES, CORE | PARK [...] | + + + + + | [facility] | [address] | [place] [address] | | | SERVICES, CORE | [address] [...] [facility] | [address] | [place] [address] | | | DWIGHT MARTINEZ | [address] [...] [facility] | [address] | [place] [address] | | | SERVICES, CORE | PARK [...] MDRD equation recommended by the National | [facility] | | Kidney Disease Education Program. [...] | + + + + + | [facility] | [address] | [place] [address] | | | SERVICES, [facility] | [address] | | | + [...] | Stimulating | | | | | WNO | Immunoglobulin | | | | | [...] by | | | | | | [facility],[address] | | | | | | [place]o Dia, [facility],[place] | | | | | | [address] | | | | | | [phone].Holidulab. | | | | | | Denis [...] [facility] | [address] | [place], [place] | | | UNIV PTH - INTFC | | [address] | | + + + + + [...] | [facility] | | | PEROXIDASE | [facility] | | REG UNIV | | | AB | [facility], [facility] | | PTH - INTFC | | | | [address] | | | | | | [phone].Holidulab. | | | | | | Denis [...] [facility] | [address] | [place], [place] | | | UNIV PTH - INTFC | | [address] | | + + + + + [...] [facility] | [address] | [place] [address] | | | SERVICES, CORE | [address] | | | + + + [...] MDRD equation recommended by the National | [facility] | | Kidney Disease Education Program. [...] [facility] | [address] | [place] [address] | | | SERVICES, CORE | PARK [...] | + + + + + | [facility] | [address] | [place] [address] | | | SERVICES, DWIGHT | [address] [...] + | [facility] - | [address] | [place] [address] | | | [place] | | | | + + + [...] DEPT OF | [address] | [place], [place] | | | CARDIOLOGY | [address] | [address] | | + + + + + [...] [facility] | [address] | [place] [address] | | | SERVICES, CORE | [address] [...] | [facility] | | | GRAVITY | [place] performed by | | LABORATORY | | [...] [facility] | [address] | [place] [address] | | | SERVICES, CORE | PARK [...] | + + + + + | [facility] | [address] | [place] [address] | | | SERVICES, CORE | [address] | | | + + + + + 12 LEAD ECG (11/21/2019 1:06 PM PDT) + + + + + + | Component | Value | Ref Range | Performed | Pathologist | | | | | At | Signature | + + + + + + | VENTRICULAR | 102 | bpm | [facility] DEPT | | | RATE | [...] DEPT OF | [address] | [place], [place] | | | CARDIOLOGY | [address] | [address] | | + + + + + X-RAY PORTABLE CHEST 1 VIEW (11/21/2019 12:46 PM PDT) + + | Specimen | + + | | + + + + + | Narrative | Performed At | + + + | EXAM: MS CHEST 1 VIEW HISTORY: low BP. History [...] Interface - 11/21/2019 1:13 PM PDT EXAM: MS CHEST 1 | | VIEW HISTORY: low [...] COLLECTIVE?NOTIFICATION?11/21/2019 12:10?HANK ALTMAN?MRN: | COLLECTIVE | | [id number] Criteria Met [facility] Security and Safety No | MEDICAL | [...] Visit Count (12 mo.) Facility Visits [facility] and | | | [facility] 2 [facility] 2 Total 4 Note: | | | Visits indicate total known visits. Recent Emergency Department | | | Visit Summary Date Facility [facility] State Type Diagnoses or Chief | | | Complaint Nov 21, 2019 [facility] [place] | | | [place] Emergency 10,800. AMR 33 Nov 04, 2019 [facility] | | | [place] Emergency prison (current) use of opiate | | | analgesic Hypothyroidism, unspecified Hyperkalemia | | | Other jail (current) drug therapy Aug 24, 2019 [facility] | | | [facility] [place] Emergency 10,800. abnormal | | | labs 18,400. Malignant neoplasm of left kidney, except renal | | | pelvis 18,400. Wedge compression fracture of second lumbar | | | vertebra, init 18,400. Hyperkalemia 18,400. Hypercalcemia | | | Jul 27, 2019 [facility] 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 Inpatient 18,400. Hyperkalemia | | | 18,400. Wedge compression fracture of second lumbar vertebra, init | | | 18,400. Hypercalcemia 18,400. Malignant neoplasm of left | | | kidney, except renal pelvis Care Team Provider Specialty | | | Phone Fax Service Dates LISSETTE MA PA Physician Scheduling Representative | | | Nov 07, 2019 - Current | | | Collective Portal This patient has registered at the [facility] | | [facility] Emergency Department For more information | | | visit: | | | [email or web address] | | | [email or web address] PLEASE NOTE: 1. Any care recommendations [...] or completeness of information provided. ? 2020 studdex | | | [employer]. - www.[employer] | | + + + + + | Procedure Note | + + | Service Account, Rtf Results Inbound - 11/21/2019 12:12 PM PDT Formatting of this | | note might be different from the original.COLLECTIVE?NOTIFICATION?11/21/2019 12:10?[facility], | | HANK A? Met PDMPSecurity [...] Visit Count (12 | | mo.)Facility Visits [facility] 2 [facility] 2 | | Total 4 Note: Visits indicate total known visits. Recent Emergency Department Visit | | SummaryDate Facility [facility] State Type Diagnoses or Chief Complaint Nov 21, 2019 [place] | | [facility] [place] Emergency 10,800. 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 Emergency 10,800. | | abnormal labs 18,400. Malignant neoplasm of left kidney, except renal pelvis | | 18,400. Wedge compression fracture of second lumbar vertebra, init 18,400. | | Hyperkalemia 18,400. Hypercalcemia Jul 27, 2019 [facility]. 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 Inpatient 18,400. Hyperkalemia 18,400. | | Wedge compression fracture of second lumbar vertebra, init 18,400. Hypercalcemia | | 18,400. Malignant neoplasm of left kidney, except renal pelvis Care TeamProvider | | Specialty Phone Fax Service Dates LISSETTE MA PA Physician Scheduling Representative ([phone] | | [phone] Nov 07, 2019 - Current [employer] PortalThis patient has | | registered at the [facility] Emergency Department For more | | information visit: | | [email or web address] PLEASE | | NOTE: 1. Any care [...] completeness of information | | provided.? 2020 [employer]. - [email or web address] | |[facility] 2 | |Total 4 | |Note: Visits indicate total known visits. | | | |Recent Emergency Department Visit Summary | |Date Facility [facility] State Type Diagnoses or Chief Complaint | |Nov 21, 2019 [facility] [place] Emergency | | 10,800. AMR 33 | | | |Nov 04, [address] [facility]. [place] Emergency | | prison (current) use of opiate analgesic | | Hypothyroidism, unspecified | | Hyperkalemia | | Other jail (current) drug therapy | | | |Aug 24, 2019 [facility] [place] Emergency | | 10,800. abnormal labs | | 18,400. Malignant neoplasm of left kidney, except renal pelvis | | 18,400. Wedge compression fracture of second lumbar vertebra, init | | 18,400. Hyperkalemia | | 18,400. Hypercalcemia | | | |Jul 27, 2019 [facility] [place] Emergency | | Other jail (current) drug therapy | | Other specified disorders of kidney and ureter | | Low back pain | | Hematuria, unspecified | | | | | | | |Recent Inpatient Visit Summary | |Date Facility [facility] State Type Diagnoses or Chief Complaint | |Aug 24, 2019 [facility] [place] Inpatient | | 18,400. Hyperkalemia | | 18,400. Wedge compression fracture of second lumbar vertebra, init | | 18,400. Hypercalcemia | | 18,400. Malignant neoplasm of left kidney, except renal pelvis | | | | | | | |Care Team | |Provider Specialty Phone Fax Service Dates | |LISSETTE MA PA Physician Scheduling Representative Nov 07, 2019 - Curr ent | | | |[employer] Portal | |This patient has registered at the [facility] and [facility] [place] Emergency Departmen t | |For more information visit: [email or web address] | |PLEASE NOTE: | | 1. Any [...] information provided. | | | |? 2020 [employer]. - www.[employer] | + + + + + + + | Performing | Address | City/State/Zipcode | Phone Number | | Organization | | | | + + + + + | [facility] | [address] | [place], [place] | [phone] | | [employer] | [address] | [address] | | + + + + + [...] | + + + + + | [facility] | [address] | [place] [address] | | | SERVICES, CORE | [address] [...] | | | | | modification) on [facility] 11/24/19 at | | | | [...] | | | | | modification) on [facility] 11/24/19 at | | | | [...]
--- OUTSIDE RECORDS SUMMARY | ~2020-06-29 | XMS | Encounter Summary ---
Demographics + + + | Address | [address] | | | [place] [address] | + + + | Home Phone [...] Team Providers + +------+ + | Care Barge Engineer Name | Role | Phone | + +------+ + | Lissette Martinez PA-C | PCP | | + +------+ + Encounter Details +--------+ + + + + | Date | Type | Department | Care Team | Description | +--------+ + + + + | 11/07/ | MyChart | [facility] | Lissette Jones, | RE: Rx refill | | 2020 | Encounter | Clinics at S | [place] [address] [address] | | | | [place] [address] | | | | | [facility] | [place], [place] | | | | | [facility] and Healing, | [address] | | | | | [address] | [phone] | | | | | [place], [place] | | | | | | [address] | | | | | | [phone] | | | +--------+ + + + [...] Ordering/Authorizing 10/17/2019 2:04 PM Hematology/Medical Oncology at [facility] Lissette mcgraw MD Outpatient Medication Detail Disp [...] Earliest Fill Date: 10/17/2019 Route: oral Order: [id number] E-Prescribing Status: Receipt confirmed by pharmacy (10/17/2019 2:05 PM PST) Controlled Substance Requested: Routing to RN Coordinator for review prior to sending to SOLEDAD Vásquez elephone Encounter - Irene Graham - 11/09/2019 11:25 AM PSTMedication Refill Request Ambulatory Oncology What is the name of the provider for this prescription refill request?: Karen Medication prescribed by [facility] Palliative Care LIP Name of medication: oxyCODONE (immediate release) *pt states per the TrenStar message, she called her pharmacy. Her pharmacy said since she poe s no refills she needs to call us directly. Dose: 5 mg oral tablet Frequency - How often are you taking it?: 4 tablets/day How much of the prescription do you have left - When will you run out?: 6-8 tablets left Pharmacy the patient wants the prescription refilled at: [id number] - [facility], [place] - [address] [phone] Is it ok to leave a confidential voicemail?: Patient approves confidential and detailed mes sages left on answering machine and voicemail. Patient reminded of Clinic Refill Policy: 48-72 business hours to process refill requests. Routed to [facility] documented in this encounte r Plan of Treatment Not on filedocumented as of this encounter Visit Diagnoses Not on filedocumented in this encounter"
--- OUTSIDE RECORDS SUMMARY | ~2020-06-29 | XMS | Encounter Summary ---
Demographics + + + | Address | [address] | | | [place] [address] | + + + | Home Phone [...] Providers + +------+ + | Care Manager Emergency Name | Role | Phone | + +------+ + | Lissette Martinez PA-C | PCP | | + +------+ + Encounter Details +--------+ + + + + | Date | Type | Department | Care Team | Description | +--------+ + + + + | 08/24/ | Telephone | [facility] | Lissette Jones, | | | 2018 | | [facility] | [address] | | | | | [place] [address] | | | | | [place], [place] | [place], [place] | | | | | [address] | [address] | | | | | [phone] | [phone] | | | | | | | [...] be disch arged soon. Encounter routed to scheduler maintenance to move Pt 09/[address] [...] to advise Pt of need for ED. helper metal hanging, maya Puri call for medical transport after Dr. Jones sees Pt. Called report to ED. [facility] to foll ow up after discharge. ele phone Encounter - Ellie Johns MA - 08/24/2019 12:50 PM PSTCalled pt and advised them Dr. Jones sent an Rx for levothroxine to [facility] pharmacy and to belt picker after infusion today. Pt st ated understanding. ele phone Encounter - Ashlee Holley RN - 08/24/2019 11:42 AM PSTEncounter sent to scheduler maintenance for s yohanant appts. New Treatment Planning Patient to start the following treatment (No abbreviations): pamidronate Treatment is given every 4 weeks for TBD cycles Additional appointments needed: N/A Additional Scheduling Instructions Offer Chemo Class Provider visit frequency: 4 week(s) Ok to see CHEMICAL INSTRUMENTATION OFFICER/PA: Yes The following treatments/appointments may be scheduled at a [facility] Site: per Pt preference elephone Encounter - Ashlee Joyce RN - 08/24/2019 11:[address] Jones. Per her, ok to override for d ental clearance and for high potassium. Entered RN communication orders for today's infusion . Dr. Jones to follow up on post treatment lab results. Per Dr. Jones, new prescription sent to pharmacy for increased Synthroid. [facility] to advise P t of need to belt picker new script during infusion.Electronically signed by Ashlee Holley RN at 1 10/25/2018 11:41 AM PSTTelephone Encounter - Ashlee Holley RN - 08/24/2019 10:01 AM PSTReceive d below email from Dr. Jones and, after clarifying Pt identifiers, called infusion for appt. From: Lissette Jones Sent: Saturday, August 24, 2019 10:17 AM To: Mike Marcano <[email or web address]> Subject: RE: RE: Tila Altman_08/24/19 Yes correct. We were going to give her fluids and then recheck BMP Also she should also get pamidronate From: Mike Marcano Sent: Saturday, August 24, 2019 9:59 AM To: Mike Marcano <[email or web address]>; Lissette Jonse <[email or web address]> Subject: RE: RE: Tila Altman_08/24/19 Hi, I think I ve found her 61. Correct? Looks like her K+ is high too at 6. Sure she shouldn t go to ED? Otherwise, I ll see wh at I can do. Do you have orders in? ThanksAshlee From: Mike Onc Sent: Saturday, August 24, 2019 9:57 AM To: Lissette Jones <[email or web address]>; Mike Onc <[email or web address]> Subject: RE: RE: Tila Altman_08/24/19 Hi JV, Can you give me a MRN or ? Ashlee Woodruff From: Lissette Jones Sent: Saturday, August 24, 2019 9:44 AM To: [facility] [email or web address]> Subject: RE: Tila Altman_08/24/19 Hi- checking to see if we can give pamidronate today for this patient, she has symptomatic hypercalcemia Plan in place Graff plan for pamidronate in place. Per sewing inspector, Pt already scheduled for 1 pm today fo r fluids per conversation with research coordinator, Jose Luis Larsen. Confirmed with Dr. Mitesh christensen that Pt is to receive 1L NS and pamidronate followed by [facility]. Called [facility] and obtained urgent auth. Called Pt and advised her that I would send educationa l information via [employer]. Requested Pt review information and call with [...]
--- OUTSIDE RECORDS SUMMARY | ~2020-06-29 | XMS | Encounter Summary ---
Demographics + + + | Address | [address] | | | [place] [address] | + + + | Home Phone [...] Team Providers + +------+ + | Care Well Cleaner Name | Role | Phone | [...] | 2019 | Encounter | Lab at [facility] [address] | [place] [address] [address] | | | | | [facility] for | [address] | | | | | Health and 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
--- OUTSIDE RECORDS SUMMARY | ~2020-06-29 | XMS | Encounter Summary ---
Demographics + + + | Address | [address] | | | [place] [address] | + + + | Home Phone [...] Team Providers + +------+ + | Care Trade Show Manager Name | Role | Phone | [...] fracture of | Roshan Frederick | [place] | | | | | L2 lumbar | Digna Rebolledo | Antonio Coreas | | | | | vertebra, | [place], [place] | [place], [place] | | | | | initial | [address] | [address] Phone: | | | | | encounter | Phone: | [phone] | | | | | ([facility]) Renal | [phone] | | | | | | cell | Fax: | | | | | | carcinoma of | [phone] | | | | | | left [...] + + | 08/24/ | Hospital | [address] | Aleksey Sanchez, | | | 2019 - | Encounter | [facility] Kesha | [address] | | | | | [address] [place] [address] | [facility] | | | 09/01/ | | [place], [place] | [place], [place] | | | 2018 | | [address] | [address] | | | | | [phone] | [phone] | | | | | | | | | | | | Charlie Graham, | | | | | | [address] | | | | | | [facility] | | | | | | [place], [place] | | | | | | [address] | | | | | | [phone] | | | | | | | | | | | | Yunier Velez MD | | | | | | [address] | | | | | | Digna [place]ledo [place], | | | | | | [place] [address] | | | | | | [phone] | | | | | | | | | | | | Madhav Ghotra MD | | | | | | [address] | | | | | | Digna Rebolledo [place], | | | | | | [place] [address] | | | | | | [phone] | | | | | | | | | | | | Celeste Cerda MD | | | | | | [address] [facility] | | | | | | [facility] | | | | | | [place], [place] | | | | | | [address] | | | | | | [phone] | | | | | | | | | | | | Najma Bryant MD | | | | | | [address] [facility] | | | | | | [facility], | | | | | | [place] [address] | | | | | | [phone] | | | | | | | [...] daily. F/up with PCP in 1 w galena to review BP trends. - continue to [...] - referral placed to Rad Oncology in [place], [place] - f/up with Oncology on 09/13/19 [...] 125 -> 137mcg at last Onc appt. -oljtchpoycqpgkdyhsccc573puv daily Pulmonary HTN TTE110/27 w/ RVSP of [...] Milner PA-C. Go on 09/09/2019. Specialty: Physician Licensing Services Clerk Why: For hospital follow-up and repeat lab work. Your appt is scheduled at 3pm Contact information [facility] [address] [place] [address] Lissette Ortiz MD. Go on 09/13/2019. Why: You have an appointment at 9:15 AM. Contact information HEM FACULTY [facility] - Hematology/Medical Oncology [facility], Building [address] [place], [place] [address] Future Appointments Provider Department Dept Phone Center 09/06/2019 6:00 PM RAD OP MRI3 Diagnostic Imaging Services at [facility] [phone] RADIOLOGY 09/13/2019 9:15 AM Liss[facility] Ortiz [facility] at: 10th Floor Hematology/Medical Oncology [phone] HemOn Referrals: CONSULT TO RADIATION ONCOLOGY Referral to [facility] department 54yo F with h/o [...] to: Primary Care Provider Lissette Milner PA-C [facility] [address] [facility] [place] [address] Call: Lissette Milner PA-C If you have [...] PA-C Instructor of Medicine Clinical Hospitalist Service [facility] [place] Pager [phone] [facility] [address]C [address] [place] [address] documented in this enc ounter Discharge Instructions Discharge Instr - AVS First Page Shelli Prescott PA - 08/31/2019 4:01 PM PSTWho to Call : HOW TO REACH YOUR MEDICAL TEAM WITH QUESTIONS, CONCERNS, OR NEW SYMPTOMS: Thank you for en trusting your care to [facility] Internal Medicine. If you have any problems or concerns before yo u are able to follow up with your Primary Care Provider, please call and ask the word processor operator to page the attending physician who was caring for you at discharge. If that ph ysician is not available, ask the word processor operator to page the physician on-call for [...] ur labs checked every 72 hours at [facility] (have labs drawn 09/02, 09/05, and [...] A referral was also sent to [facility] for consideration of radiation [...] Attending Physician: Najma Bryant MD Patient Name: [facility] Day: 6 Interval Events: - [...] now stabilize d and transferring back to [facility] service. Problem List: Hypotension Present on admission, [...] - place referral to Rad Onc in [place] on discharge - continue oxycodone5-10mg po q4h [...] 125 -> 137mcg at last Onc appt. -bybbmowkwtlhfogwmjrdy247olt daily Pulmonary HTN TTE 08/26 w/ RVSP [...] and BP stable. I spent 40 minutes pskc-xb-ibcq with the patient of which greater than 50% was spent counse ling the patient about hypotension, pain management, kyphoplasty,TLS, JONO in reviewing dayday dao chart notes/data, as well as coordination of care with Interventional Neuroradiology, O ncology, nursing, and case management. Shelli Prescott PA-C Instructor of Medicine Clinical Hospitalist Service [facility] Pager [phone] Associated attestation - Najma Bryant MD - [...] Horacio's). Jo Ann Bryant MD Clinical Hospitalist [facility] [place] Pager [phone] Yrn Clemens MD - 08/30/2019 12:34 PM [...] prior to the procedure. Yrn Clemens MD Summer Associate - Skull base and Cerebrovascular Neurosurgery Department of Neurological Montessori Program DirectorSummer Associate - Interventional Neuroradiology Felipe Key Department of Interventional Radiology [facility] 1 2:36 PM Shelli Arriaga PA - 08/29/2019 4:59 PM PSTFormatting of this note might be d ifferent from the original. CLINICAL HOSPITALIST SERVICE PROGRESS NOTE Author: REDD Valencia Attending Physician: Najma Bryant MD Patient Name: [facility] Day: 5 Interval Events: - [...] now stabilize d and transferring back to [facility] service. Problem List: Hypotension Present on admission, [...] - place referral to Rad Onc in [place] on discharge - continue oxycodone5-10mg po q4h [...] 125 -> 137mcg at last Onc appt. -glfrchtkuaacnfdwvxmrk505kbu daily Pulmonary HTN TTE 08/26 w/ RVSP of 75, mildly thickened and dilated RV. No prior ECHO available for perez og. RVSP raised concern for PE, though given RA hypertrophy this is more likely chronic. -stable on RA; CTM. FEN: Regular diet, low K and low Ca Prophy: SC heparin Code status: Full DISPO: Pending clinical course. I spent 45 minutes kmfh-pf-uovk with the patient of which greater than 50% was spent counse ling the patient about hypotension, DVT/PE, pain management, kyphoplasty, in reviewing [facility] chart notes/data, as well as coordination of care with Interventional Neuroradiology, O ncology, nursing, and case management. SOLEDAD ValenciaC Instructor of Medicine Clinical Hospitalist Service [facility] [place] Pager [phone] Associated attestation - Najma Bryant MD - [...] (HCC) Jo Ann Bryant MD Clinical Hospitalist [facility] Pager [phone] Neda Gaines MD - 08/29/2019 12:24 PM PSTFormatting of this note might be different from t he original. INPATIENT ONCOLOGY FOLLOW-UP CONSULT NOTE Length of stay: 5 Reason for Consult: clear cell renal carcinoma Requesting Provider: Dr. Graham Outpatient Log Inspector/Oncologist: Dr. Ortiz Interval events: --asymptomatic from hypotension [...] (Hitesh Gaines MD-PhD Hem/Onc Fellow, PGY4 Pager: [phone] signed by Richard Puga MD at 08/29/2019 [...] tomorrow. Jo Ann Bryant MD Clinical Hospitalist [facility] [place] Pager [phone] Shelli Arriaga PA - 08/28/2019 3:21 PM PST CLINICAL HOSPITALIST SERVICE PROGRESS NOTE Author: REDD Valencia Attending Physician: Najma Bryant MD Patient Name: [facility] Day: 4 Interval Events: - [...] done while she is here. [facility] and difficult [...] now stabilize d and transferring back to [facility] service. Problem List: Hypotension Present on admission, [...] March which would be helpful to determine director voice nicity, awaiting records. - daily CMP - K restricted diet - requested labs from 03/2019 to determine baseline Cr (P:[phone] if no records by Massiel angelo) - [...] 125 -> 137mcg at last Onc appt. -vksgcfrgplitlyxxgfacw010blu daily. Pulmonary HTN TTE 08/26 w/ RVSP of 75, mildly thickened and dilated RV. No prior ECHO available for perez rison. RVSP raised concern for PE, though given RA hypertrophy this is more likely chronic. -stable on RA; CTM. FEN: Regular diet, low K and low Ca Prophy: Hold for upcoming procedure Code status: Full DISPO: Pending clinical course. I spent 45 minutes henp-pg-mnjw with the patient of which greater than 50% was spent counse ling the patient about hypotension, DVT/PE, adrenal insufficiency, in reviewing pertinent art notes/data, as well as coordination of care with Interventional Neuroradiology, nursing, and case management. Shelli Prescott PA-C Instructor of Medicine Clinical Hospitalist Service [facility] Pager [phone] hen, Celeste King MD - 1 10/28/2018 10:55 PM PST CLINICAL HOSPITALIST SERVICE PROGRESS NOTE PATIENT'S NAME/MRN: Hank Moncada [facility]/[id number] HOSPITAL DAY: #3 MICU Transfer Note INTERVAL EVENTS: Patient is 54 y/o female with history of Hodgkin's lymphoma s/p CHOP and XRT c/b post-radia tion hypothyroidism, recently diagnosed stage IV RCC c/b liver, lung, and osseous metastatic disease, initially admitted to [facility] service on 08/24 for hypotension, JONO, hypercalcemia, [...] for hypotension, stabilized now transferring back to [facility] service. Hypotension Present on admission, transferred to [...] infusions done closer to home, such as [facility]). - consider Rad Onc or [facility] [...] RA; CTM. CODE status: Full Thromboembolic prophylaxis: [facility] Dispo plans: pending medical stability I spent 65 minutes in the care of this patient while on the medical unit today of which gre ater than 50% was spent counseling and coordinating care for the patient. Aliyah Cerda Division of Hospital Medicine Pager [phone] Madhav Downey MD - 08/27/2019 4:52 PM [...] Ghotra MD Division Pulmonary-Critical Care Medicine Mailcode [facility]-67 Pager [phone]/ [facility] DEPARTMENT: [facility], [facility]- [phone] Place of Service: - Date of Service: 08/27/2019 CSN: [id number] Modifiers: Resident Involved: yes abine Gauthier, DO - 1 10/28/2018 6:[address] [facility] MEDICAL ICU - PROGRESS NOTE Hospital [...] -- -- 88 HCO3 -- -- 18* [id number] -- -- 419 VBGPH 7.28* 7.24* 7.29* [...] Primary Surrogate Decision Maker William Talavera sister [phone] Secondary Surrogate Decision Maker Amada Manzanares sister [...] Ghotra MD Division Pulmonary-Critical Care Medicine Mailcode [facility]-67 Pager [phone]/ [facility] DEPARTMENT: [facility], [facility]- [phone] Place of Service: [facility] Date of Service: 08/26/2019 CSN: [id number] Modifiers: Resident Involved: yes erri Sosa - 08/08 9:05 AM PSTTransthoracic echocardiogram completed. Final report to follow. abine Gauthier DO - 6:[address] [facility] MEDICAL ICU - PROGRESS NOTE Hospital [...] (Dosing Weight) intravenous CONTINUOUS 0.1 mcg/kg/min (08/26/19 9865) Current Facility-Administered Medications Medication Dose Route Frequency [...] Primary Surrogate Decision Maker William Talavera sister [phone] Secondary Surrogate Decision Maker Amada Manzanares sister This patient was staffed with Dr. Ghotra, attending physician. Sabine Gauthier DO 08/26/2019, 6:51 AM Template created by [employer] 2017 harlie Portillo MD - 08/25/2019 11:27 PM PSTAttending Attestation: I have seen and examined the patient personally, and have reviewed and revised (when necess sukhwinder) the note by the wash house supervisor. Hank Chang is a 54 y.o. woman [...] results, speaking with primary and/or ot her medical sales consultant teams. Charlie Portillo MD Summer Associatecar icer [facility] Division of Pulmonary & Critical Care Medicine Pager: [phone] troup, Yunier Peña MD - 08/25/2019 8:13 PM PST Addendum: Have spoken with MICU who will accept patient in setting of progressive hypotension. Below includes transfer summary to MICU with problem list of active medical issues. Yunier Velez MD Summer Associate, Department of Hospital Medicine Perioperative Medicine Clinic, Clinical Hospitalist & Medical Teaching Services [facility] [place] Pager [phone] 08/25/2019 9:00 PM [facility] Principal Database Developer Progress Note: Events prior to note: -was [...] for h/h < 7 Yunier Velez MD Summer Associate, Department of Hospital Medicine Perioperative Medicine Clinic, Clinical Hospitalist & Medical Teaching Services [facility] Pager [phone] 08/25/2019 8:54 PM [facility] DEPARTMENT: Hosp ([facility]) - [phone] Place of Service: IP - [id number] [facility] [phone] Modifiers:GC Resident Involved: No Service: PRIMARY HOSPITALIST Suggested CPT: 83051 Prolonged Service Uvra-vr-Jntd 1st Hour (30-74 min beyond initial/sub) I [...] Attending Physician: Charlie Graham MD Patient Name: [facility] Day: 1 Interval Events: - presented to ED from opt Oncology appt for HoTN, hyperCa and hyperK in s/o clear cell curt al carcinoma - labs at [facility] center: K 6, Cr 2.12, Ca corrected [...] EKG w/o peaked T waves and normal MI interval, continues on telemetry w/o events. Un [...] Pending clinical course. I spent 45 minutes bbdq-yl-qpjx with the patient of which greater than 50% was spent counse ling the patient about RCC, pathological fracture, pain mgmt, JONO, hyper K/Ca, in reviewing pertinent chart notes/data, as well as coordination of care with Oncology, nursing, and case management. REDD Valencia-C Instructor of Medicine Clinical Hospitalist Service [facility] [place] Pager [phone] Associated attestation - Charlie Graham MD - [...] eval. Tessa Graham MD Clinical Hospitalist Service [facility] [place] Pager [phone] I spent 38 minutes taking care of this patient while on the medical unit coordinating care and counseling regarding the above medical problems. documented in this encounter H&P Notes Tiesha Lopez, - 08/25/2019 9:11 PM PSTFormatting of this note might be different from t he original. 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 oncology group group on 08/07 8 where she had initial appointment with laboratory studies showing evidence of hyperkalemi a (K of 6), renal insufficiency (Cr 2.12), hypercalcemia (albumin corrected calcium to 13.6) raising concern for hypercalcemia of malignancy. [facility] 1L IVF [...] Oncologic History: Oncologist Dr. Lissette Ortiz MD (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 -continue telemetry -EKG [...] therapy Yunier Velez MD Clinical Hospitalist Services [facility] Pager [phone] [facility] DEPARTMENT: Hosp ([facility]) Modifiers:GC Resident Involved: No Service: PRIMARY HOSPITALIST Suggested CPT: 35603 Initial Visit Comp/High Complexity 70 min I [...] care per Hospitalist service Yrn Clemens MD Summer Associate - Skull base and Cerebrovascular Neurosurgery Department of Neurological Montessori Program DirectorSummer Associate - Interventional Neuroradiology Felipe Key Department of Interventional Radiology [facility] 4 :27 PM Pavan Robles MD - [...] see CXR report for confirma tion Vein corporate quality engineer technique: Ultrasound Guidance Techique: The modified Seldinger technique (a aeugfbuw-fmzb-xuy-zbhxts-oqtp-ktpy-through -the-catheter) was used for vessel cannulation Confirmed [...] present for this procedure. Charlie Portillo MD Summer Associatecar icer [facility] Cystic Fibrosis [place] Division of Pulmonary & Critical Care Medicine Pager: [phone] Pavna Ramos MD - 08/26/2019 2:18 AM PSTAssociated [...] present for this procedure. Charlie Portillo MD Summer Associatecar icer [facility] Division of Pulmonary & Critical Care Medicine Pager: [phone] documented in this encounter Consult Notes Benito [...] up Benito Ovalles MD Endocrinology Fellow Pager: [phone] 08/30/2019 2:26 PM Luh Hobson MD - 7:58 AM PST [facility] [place] INTERVENTIONAL NEURORADIOLOGY at [facility] INTERVENTIONAL [place] HISTORY AND PHYSICAL NAME: Hank Altman : [...] ed. Luh Guevara MD Neurosurgery PGY1 [facility] Interventional Neuroradiology Tg Dennis MD - [...] assistance. Abbie Mack MD Endocrinology Fellow Pager [phone] This patient's assessment and plan was discussed with attending tool straightener Dr. Tg mcgowan who agrees with above [...] follow. Abbie Mack MD Endocrinology Fellow Pager [phone] This patient's assessment and plan was discussed with attending tool straightener Dr. 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 Tg Lacy MD Summer Associate Division of Endocrinology Pager [phone] Carla Mercer, PharmD - 08/25/2019 5:50 PM [...] regarding this information please contact pharmacy, pager [phone] Thank you, Carla Mercer PharmD, BCPS Anisa Hernandez MD - 08/25/2019 9:43 AM PST INPATIENT ONCOLOGY INITIAL CONSULT NOTE Consultation Date: 08/25/2019 Reason for Consult: clear cell renal carcinoma Requesting Provider: Dr. Graham Outpatient Log Inspector/Oncologist: Dr. Ortiz HPI: Hank Altman is a [...] was subsequently referred to medical oncology at [facility], Dr. Ortiz, and had her first appt [...] Oncologic History: Oncologist Dr. Lissette Ortiz MD (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 ED Shared Provider Note, co-authored by Aleksey Snachez MD and Chelita Logan MD: HPI Mrs. 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 [facility], who accepted patient to [...] being fallon juice for renal cell adenocarcinoma [facility] 2 infusion room brought in for [...] 3:33 PM PSTAshlee DOUGLAS - Oncology - [id number] Patient being treated for renal cell adenocarcinoma [facility] 2 infusion room brought in for [...] Discharge 09/01/2019 10:00 AM Hospital Day: 8 [id number] HANK ALTMAN Date of : 1965 Start of care: 08/24/2019 Referring/Attending Practitioner: Najma Bryant MD Primary/Referral Diagnosis/ICD-9: E83.52 Hypercalcemia of malignancy E87.5 Hyperkalemia S32.020A Closed compression fracture of L2 lumbar vertebra, initial encounter (HCC) C64.2 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) Insurance: Payor: Tier 3 / Plan: Tier 3 / Product Type: Indemnity / Service period [...] reports independent, drives, 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 Patient / Family Goal: to go home [...] 90 degrees), long arc quadriceps. Outcome Measure: [facility] BASIC MOBILITY Difficulty turning over in [...] A Little - Minimal/Contact Guard Assist/Superv ision [facility] Basic Mobility Total Score 23 Interpretation of [facility] Short Form - Basic Mobility: CMS [...] Handoff Patient Daily Goal: "Sleep tonight." (08/29/19 0593) Patient Specific Preferences: pain mangement (08/28/19 9039) [facility] IP NURSE HANDOFF: [facility] [...] Handoff Patient Daily Goal: "Sleep tonight." (08/29/19 5432) Patient Specific Preferences: pain mangement (08/28/19 5783) [facility] IP NURSE HANDOFF: [facility] hospital course [...] (08/29/192111) Patient Specific Preferences: pain mangement (08/28/19 4342) [facility] IP NURSE HANDOFF: [facility] hospital course [...] -Daughter and son staying with family in [place]; may need to consult CM/SW for help with arrangements Barriers to discharge: -DC today depending on labs and BP andoff - Odette Montoya RN - 08/30/2019 5:35 PM PSTNursing Handoff Patient Daily Goal: "Sleep tonight." (08/29/192111) Patient Specific Preferences: pain mangement (08/28/19 6742) [facility] IP NURSE HANDOFF: [facility] hospital course [...] Abarca, MS, RD, LD, CNSC Pager #: [phone] Nutrition Assessment: Admitting Dx: Hank [place] is [...] 4.5, Cr 1.42, BUN 26 Pertinent Meds: 08403 units cholecalciferol weekly, levothyroxine Last BM: 08/29 Skin: back incision Admit Ht: 62" | Admit Wt: 94.6 kg | Admit BMI: 38.1 kg/m2 | IBW: 50 kg | Admit %IBW: 189% | Admit AdjBW: 61.2 kg Wt Readings from Last 10 Encounters: 08/28/19 98.7 kg (217 lb 8 oz) 08/24/19 94.6 kg (208 lb 8.9 oz) 08/16/19 95.7 kg (211 lb) Estimated needs: 5546-2425 kcal/day (MSJx1.1-1.3); 75-100 g protein/day (1.5-2 g/kg [...] Patient Specific Preferences: pain mangement (08/28/19 0742) [facility] IP NURSE HANDOFF: [facility] hospital course [...] -Daughter and son staying with family in [place]; may need to consult CM/SW for help [...] Patient Specific Preferences: pain mangement (08/28/19 0742) [facility] IP NURSE HANDOFF: [facility] hospital course [...] -Daughter and son staying with family in [place]; may need to consult CM/SW for help [...] Pain management. Move slowly with ambulation (08/26/191999) [facility] IP NURSE HANDOFF: [facility] hospital course [...] -Daughter and son staying with family in [place]; may need to consult CM/SW for help with arrangements Barriers to discharge: -Oncology and endocrine work up -Kidney values -Pituitary MRI andoff - Yvette Pizarro ma RN - 08/27/2019 11:30 PM PSTNursing Handoff Patient Daily Goal: Sleep! pain management (08/27/191999) Patient Specific Preferences: Pain management. Move slowly with ambulation (08/26/191999) [facility] IP NURSE HANDOFF: [facility] hospital course [...] Pain management. Move slowly with ambulation (08/26/191999) [facility] IP NURSE HANDOFF: [facility] hospital course [...] Pain management. Move slowly with ambulation (08/26/191999) [facility] IP NURSE HANDOFF: [facility] hospital course [...] give 2000 units per day if preferred) Vyqb-pih-iwbqwwtps-related knowledge deficit r/t lack of prior exposure to nutrition-relate d information evidenced by change in condition with possible need for renal diet education. Odette Dhaliwal, KESHA Pgr #[id number] Hank Altman is a 54 y.o. female [...] Est needs ICU, BMI >30, using IBW: 8955-8971 kcal (22-25/kg), 100 g pro (2g/kg) lan [facility] Lissette Salcido - 08/26/2019 10:45 AM PSTPTNote: Consult from ED, admitted to MICU with ongoing m edical stabilization and work-up. Not appropriate for physical therapy, signing off. Nursing able to mobilize as appropriate per safe patient mobility check, please re-consult when med ically stable. Christine Salcido, [id number] signed by Lissette Salcido at 08/26/2019 10:47 AM P STPlan of Hank Leach, PT - 08/25/2019 11:22 AM PSTContact Note for Physical Th erapy Urgent orders received, chart reviewed. Checked in with nurse who reports pt is hypotensive , trending downwards. PT will hold for now and check back tomorrow. Hank Vizcarra, PT DPT Pager [phone] D Teaching Notes - Aleksey Sanchez MD - 08/25/2019 1:10 AM Annika Sanchez MD, Faculty Note: I saw and evaluated the patient and discussed the diagnosis, management, and interpretation of results with the resident. I performed and confirmed the gonsales portions of the service. I have reviewed and agree with the documentation in the provider note. Aleksey Sanchez MD [facility] Miranda Carver - 08/24/2019 6:01 PM [id number] - c1 54 yof back pain & prev lower lumbar FX; hi gh calcium values; hr 87 sat 100 bp 111/53 & IV est; [facility]a [facility] - Adriane Dillon - 08/24/2019 3:32 PM [...] [facility] | [address] | [place] [address] | | | SERVICES, CORE | PARK [...] | + + + + + | [facility] | [address] | [place] [address] | | | SERVICES, CORE | DIGNA [...] [facility] | [address] | [place] [address] | | | SERVICES, CORE | PARK [...] | + + + + + | [facility] | [address] | [place] [address] | | | SERVICES, CORE | PARK [...] | | | LABORATORY | | | CHADIAN | | | SERVICES, | | | [...] MDRD equation recommended by the National | [facility] | | Kidney Disease Education Program. Estimated [...] | + + + + + | [facility] | [address] | [place] [address] | | | SERVICES, CORE | DIGNA [...] [facility] | [address] | [place] [address] | | | SERVICES, CORE | PARK [...] | | | LABORATORY | | | CHADIAN | | | SERVICES, | | | [...] recommended by the National | [facility] | | Kidney Disease Education Program. [...] [facility] | [address] | [place] [address] | | | SERVICES, CORE | PARK [...] | + + + + + | [facility] | [address] | [place] [address] | | | SERVICES, CORE | PARK [...] [facility] | [address] | [place] [address] | | | SERVICES, CORE | PARK [...] [facility] | [address] | [place] [address] | | | SERVICES, CORE | PARK [...] | + + + + + | [facility] | [address] | [place] [address] | | | SERVICES, CORE | PARK [...] [facility] | [address] | [place] [address] | | | SERVICES, CORE | PARK [...] LABORATORY | [address] | [place] [address] | | | SERVICES, CORE | PARK [...] [facility] | [address] | [place] [address] | | | SERVICES, CORE | PARK [...] | | | LABORATORY | | | CHADIAN | | | SERVICES, | | | [...] | + + + + + | [facility] | [address] | [place] [address] | | | DWIGHT MARTINEZ | PARK [...] [facility] | [address] | [place] [address] | | | SERVICES, CORE | DIGNA [...] [facility] | [address] | [place], [place] | | | JOCELYNE POINT OF CARE | [facility] | [address] | | | TESTS | | | [...] (L) | 70 - 99 mg/dL | [facility] - | | | GLUCOSE, | [...] [facility] | [address] | [place], [place] | | | KAREN CASANOVA OF [facility] | [facility] | [phone] | | | TESTS | | | [...] [facility] | [address] | [place] [address] | | | SERVICES, CORE | PARK [...] | + + + + + | [facility] | [address] | [place] [address] | | | SERVICES, CORE | PARK [...] [facility] | [address] | [place] [address] | | | SERVICES, CORE | PARK [...] | | | LABORATORY | | | CHADIAN | | | SERVICES, | | | [...] [facility] | [address] | [place] [address] | | | SERVICES, CORE | PARK [...] | + + + + + | [facility] | [address] | [place] [address] | | | MICHELLE, DWIGHT | DIGNA [...] [facility] | [address] | [place] [address] | | | SERVICES, CORE | PARK [...] [facility] | [address] | [place] [address] | | | SERVICES, CORE | PARK [...] [facility] | [address] | [place] [address] | | | MICHELLE, DWIGHT | DIGNA [...] | | | LABORATORY | | | CHADIAN | | | SERVICES, | | | [...] recommended by the National | [facility] | | Kidney Disease Education Program. [...] [facility] | [address] [facility] | [place] [address] | | | SERVICES, CORE | PARK [...] [facility] | [address] | [place] [address] | | | SERVICES, CORE | PARK [...] | + + + + + | [facility] | [address] | [place] [address] | | | MICHELLE, DWIGHT | DIGNA [...] | + + + + + | [facility] | [address] [facility] [address] | [place] [address] | | | SERVICES, CORE | DIGNA [...] SURGEON: Yrn Clemens | | | Lily [employer] RELATIONS MANAGER SURGEONS: ANESTHESIA: Moderate sedation was | | [...] | | A 10 gauge 12 cm [place] needle was then introduced to the right | | | pedicle using an AP projection and lateral fluoroscopy. The needle | | | was gently tapped with a mallet into the central portion of the body. | | | A curved curet was then used to create a channel across midline of | | | the vertebral body. The [place] kyphoplasty balloon was then inserted | | | and inflated. The Jose G bone cement delivery system was used. | | | The [place] radiopacifier and bone cement was mixed. The [...] | REPORT PRIMARY SURGEON: Yrn Clemens M.D. FOUNDATION RELATIONS MANAGER SURGEONS: ANESTHESIA:Moderate | | sedation was directly [...] A 10 gauge 12 cm | | [place] needle was then introduced to the right pedicle using an AP projection and | | lateral fluoroscopy. The needle was gently tapped with a mallet into the central | | portion of the body. A curved curet was then used to create a channel across midline of | | the vertebral body. The [place] kyphoplasty balloon was then inserted and inflated. [...] Yrn Clemens MD | |Dictation initiated: Yrn Celmens MD 08/29/2019 4:28 PM | + + [...] | | | service Yrn Clemens MD Summer Associate - | | | Skull base and Cerebrovascular Neurosurgery Department of | | | Neurological Montessori Program DirectorSummer Associate - Interventional | | | Neuroradiology Felipe Key Department of Interventional | | | Radiology [facility] | | + + + CBC AND [...] [facility] | [address] | [place] [address] | | | SERVICES, DWIGHT | DIGNA [...] | | | | | | , [facility] & | | | | | | [facility] | | | | | [...] | + + + + + | [facility] | [address] | [place] [address] | | | PATHOLOGY | [address] [...] | + + + + + | [facility] | [address] | [place] [address] | | | SERVICES, | [address] [...] [facility] | [address] | [place] [address] | | | SERVICES, | [address] [...] | + + + + + | [facility] | [address] | [place] [address] | | | SERVICES, | [address] [...] [facility] | [address] | [place] [address] | | | SERVICES, CORE | PARK [...] | + + + + + | [facility] | [address] | [place] [address] | | | SERVICES, CORE | DIGNA [...] | | | LABORATORY | | | CHADIAN | | | SERVICES, | | | [...] | 18 | 8 - 25 | [facility] | | | INE RATIO | | [...] recommended by the National | [facility] | | Kidney Disease Education Program. [...] | + + + + + | [facility] | [address] [facility] [address] | [place] [address] | | | SERVICES, CORE | DIGNA [...] | + + + + + | [facility] | [address] | [place] [address] | | | SERVICES, CORE | DIGNA [...] Note | + + | Service Account, ChinoMedlert In Interface - 08/28/2019 3:30 PM PST [...] [facility] | | | | | [facility] US | | | | + +---------+ [...] [facility] | [address] | [place] [address] | | | SERVICES, CORE | PARK [...] | + + + + + | [facility] | [address] | [place] [address] | | | SERVICES, CORE | DIGNA [...] | | | LABORATORY | | | CHADIAN | | | SERVICES, | | | [...] | + + + + + | [facility] | [address] | [place] [address] | | | SERVICES, DWIGHT | DIGNA [...] + + | [facility] | [address] [facility] | [place] [address] | | | SERVICES, CORE | PARK [...] [facility] | [address] [address] | [place] [address] | | | SERVICES, CORE | PARK [...] | | | LABORATORY | | | CHADIAN | | | SERVICES, | | | [...] | + + + + + | [facility] | [address] | [place] [address] | | | DWIGHT MARTINEZ | DIGNA [...] [facility] | [address] | [place] [address] | | | SERVICES, DWIGHT | PARK [...] + + | [facility] | [address] [facility] [address] | [place] [address] | | | SERVICES, CORE | DIGNA [...] | + + + + + | [facility] | [address] | [place] [address] | | | SERVICES, CORE | DIGNA [...] | + + + + + | [facility] - | [address] | [place] [address] | | | [place] | | | [...] + | [facility] - | [address] | [place] [address] | | | [place] | | | | + + + [...] + + + | Test performed in [facility] Core lab. New reference range in effect | [facility] | | 2-6-18. | LABORATORY | | | SERVICES, CORE | + + + + + + + + | Performing | Address | City/State/Zipcode | Phone Number | | Organization | | | | + + + + + | [facility] | [address] | [place] [address] | | | MICHELLE, DWIGHT | DIGNA [...] | | | | | | by [employer],[address] | | | | | | Franko Dia, [facility] | | | | | | [phone] | | | | | | [phone].Skip Hoplab. | | | | | | tooele valley hospitalDenis MD, | | | | [...] [facility] | [address] | [place], [place] | | | [facility] | | [address] | | + + + + + [...] + | [facility] | [address] | [place] [address] | | | [place] | | | | + + + [...] | | | LABORATORY | | | CHADIAN | | | SERVICES, | | | [...] + | [facility] | [address] | [place] [address] | | | MICHELLE, DWIGHT | PARK [...] | + + + + + | [facility] | [address] [facility] | [place] [address] | | | SERVICES, CORE | DIGNA [...] [facility] | [address] [facility] [address] [address] | [place] [address] | | | SERVICES, CORE | DIGNA [...] [facility] | [address] | [place] [address] | | | SERVICES, CORE | PARK [...] | | | LABORATORY | | | CHADIAN | | | SERVICES, | | | [...] recommended by the National | [facility] | | Kidney Disease Education Program. [...] [facility] | [address] | [place] [address] | | | SERVICES, CORE | PARK [...] [facility] | [address] | [place] [address] | | | DWIGHT MARTINEZ | DIGNA [...] | | | LABORATORY | | | CHADIAN | | | SERVICES, | | | [...] [facility] | [address] | [place] [address] | | | SERVICES, CORE | PARK [...] | | | LABORATORY | | | CHADIAN | | | SERVICES, | | | [...] [facility] | [address] | [place] [address] | | | SERVICES, CORE | PARK [...] | + + + + + | [facility] | [address] [address] | [place] [address] | | | SERVICES, CORE | DIGNA [...] | | | LABORATORY | | | CHADIAN | | | SERVICES, | | | [...] recommended by the National | [facility] | | Kidney Disease Education Program. [...] | + + + + + | [facility] | [address] | [place] [address] | | | SERVICES, CORE | DIGNA [...] LABORATORY | [address] | [place] [address] | | | SERVICES, CORE | PARK [...] | + + + + + | [facility] | [address] | [place] [address] | | | SERVICES, CORE | DIGNA [...] [facility] | [address] | [place], [place] | | | KAREN CASANOVA OF CARE | [address] | [address] | | | TESTS | | | [...] Performed At | + ----+ + | [facility] | [facility] DEPT OF | | [facility] Adult Echocardiography Laboratory [address] | CARDIOLOGY | | [place], [place] [address] Ph: | | | Pt Name: HANK ALTMAN | | | Study Date/Time 08/26/2019 / 7:53:21 AMMRN: [id number] | | | Most recent prior: -Acc #: [id number] | | | No. previous echos: 0DOB: 1965 54 years Heart | | | Rate: 99 bpmHeight: 62.0 in Blood | | | Pressure: 105/67 mm/HgWeight: 225.5 lb | | | Gender: FBSA: 2.01 m | | | Order ID: [id number] Study | | | Location: Sonographer: Terri Sosa [facility] AE, [facility] | | | Provider: YUNIER Leonard Performed: [...] Report | | | electronically signed by: [id number] Eliana An MD (08/26/2019, | | | 11:24:45 AM) Final | | | cm mm/m | | | Asc Ao 3.60 17.9 | | | (prox) cm mm/m | | |Evaluation of chamber size and geometry is accomplished through the incorporation of | | |linear, volumetric, and indexed values | | | | | |Report electronically signed by: [id number] Eliana An MD (08/26/2019, 11:24:45 AM) | | | | | | | | | | | | Final | | + ----+ + + + | Procedure Note | + + | Interface, Cardiology Results - 08/26/2019 11:24 AM [facility] | | [facility] Echocardiography Laboratory [facility] [facility] | | [place], [place] [address] Pt Name: HANK MONCADA | | [facility] Study Date/Time 08/26/2019 / 7:53:21 AMMRN: [id number] Most | | recent prior: -Acc #: [id number] No. previous echos: 0DOB: 1965 | | 54 years Heart Rate: 99 bpmHeight: 62.0 in Blood Pressure: | | 105/67 mm/HgWeight: 225.5 lb Gender: FBSA: 2.01 m | | Order ID: [id number] Study Location: Sonographer: Terri | | [facility] AE, PEReferring Provider: YUNIER Leonard Performed: [...] and indexed values Report electronically signed by: [id number] | | Eliana An MD (08/26/2019, 11:24:45 [...] | | | |Report electronically signed by: [id number] Eliana An MD (08/26/2019, 11:24:45 AM) | | | | | | | | Final | + + + + + + + | Performing | Address | City/State/Zipcode | Phone Number | | Organization | | | | + + + + + | [facility] | [address] | [place], [place] | | | CARDIOLOGY | [address] | [address] | | + + + + + X-RAY PORTABLE CHEST 1 VIEW (08/26/2019 5:25 AM PST) + + | Specimen | + + | | + + + + + | Narrative | Performed At | + + + | EXAM: MI CHEST 1 VIEW HISTORY: confirm central line [...] Interface - 08/26/2019 8:11 AM PST EXAM: MI CHEST 1 | | VIEW HISTORY: confirm [...] | | | | | determined by [employer] | | | | | | [employer]. See | | | | | | Compliance Statement B: | | | | | | [employer] Software/CSPerformed | | | | | | by [employer],[address] | | | | | | Franko Dia [facility] | | | | | | [address] | | | | | | [phone].[employer]. | | | | | | comDenis [...] [facility] | [address] | [place], [place] | | | [facility] | | [address] | | + + + + + [...] [facility] | [address] | [place], [place] | | | KAREN CASANOVA OF KATHERINE | [facility] | [address] | | | TESTS | | | [...] [facility] | [address] | [place] [address] | | | SERVICES, CORE | PARK [...] [facility] | [address] | [place] [address] | | | SERVICES, CORE | PARK [...] | + + + + + | [facility] | [address] | [place] [address] | | | SERVICES, DWIGHT | DIGNA [...] | | | LABORATORY | | | CHADIAN | | | SERVICES, | | | [...] + | [facility] | [address] [facility] [address] [address] | [place] [address] | | | SERVICES, DWIGHT | DIGNA [...] [facility] | [address] | [place] [address] | | | SERVICES, CORE | PARK [...] [facility] | [address] | [place] [address] | | | SERVICES, CORE | PARK [...] [facility] | [address] | [place] [address] | | | DWIGHT MARTINEZ | DIGNA [...] 82 | 70 - 99 mg/dL | [facility] - | | | GLUCOSE, | [...] [facility] | [address] | [place], [place] | | | KAREN CASANOVA OF [facility] | [address] | [address] | | | TESTS | | | [...] report | | | for confirmation Vein corporate quality engineer technique: Ultrasound Guidance | | | Techique: The modified Seldinger technique (a | | | tzsgoupo-vdhd-ikd-uwvyvd-wxfs-lzfr-lepaaul-shc-rlamxccw) was used for | | | vessel [...] | | | LABORATORY | | | CHADIAN | | | SERVICES, | | | [...] recommended by the National | [facility] | | Kidney Disease Education Program. [...] [facility] | [address] | [place] [address] | | | SERVICES, CORE | PARK [...] [facility] | [address] | [place] [address] | | | SERVICES, CORE | DIGNA [...] | [facility] | | | GRAVITY | Mantee performed by | | LABORATORY | | [...] [facility] | [address] | [place] [address] | | | SERVICES, CORE | PARK [...] | + + + + + | [facility] | [address] | [place] [address] | | | SERVICES, CORE | DIGNA [...] | + + + + + | [facility] | [address] | [place] [address] | | | SERVICES, CORE | DIGNA [...] | + + + + + | [facility] | [address] [facility] [address] | [place] [address] | | | SERVICES, DWIGHT | PARK [...] [facility] | [address] | [place], [place] | | | KAREN CASANOVA OF CARE | [address] | [address] | | | TESTS | | | [...] - [facility] | [address] | [place], [place] | | | JOCELYNE POINT OF CARE | [address] | [address] | | | TESTS | | | [...] | + + + + + | [facility] | [address] [facility] [address] [address] | [place] [address] | | | SERVICES, CORE | DIGNA [...] | | | LABORATORY | | | CHADIAN | | | SERVICES, | | | [...] MDRD equation recommended by the National | [facility] | | Kidney Disease Education Program. Estimated [...] | + + + + + | [facility] | [address] | [place] [address] | | | SERVICES, CORE | PARK [...] | + + + + + | [facility] | [address] | [place] [address] | | | SERVICES, CORE | PARK [...] [facility] | [address] | [place] [address] | | | SERVICES, CORE | PARK [...] | + + + + + | [facility] | [address] | [place] [address] | | | SERVICES, CORE | DIGNA [...] DEPT OF | [address] | [place], [place] | | | CARDIOLOGY | [address] | [address] | | + + + + + [...] | + + + + + | [facility] | [address] | [place] [address] | | | SERVICES, CORE | PARK [...] | + + + + + | [facility] | [address] | [place] [address] | | | SERVICES, CORE | PARK [...] | + + + + + | [facility] | [address] | [place] [address] | | | DWIGHT MARTINEZ | DIGNA [...] DEPT OF | [address] | [place], [place] | | | CARDIOLOGY | [address] | [address] | | + + + + + [...] [facility] | [address] | [place], [place] | | | JOCELYNE POINT OF CARE | [address] | [address] | | | TESTS | | | [...] [facility] | [address] | [place] [address] | | | SERVICES, CORE | PARK [...] | | | LABORATORY | | | CHADIAN | | | SERVICES, | | | [...] MDRD equation recommended by the National | [facility] | | Kidney Disease Education Program. Estimated [...] | + + + + + | [facility] | [address] | [place] [address] | | | SERVICES, CORE | PARK [...] | + + + + + | [facility] | [address] | [place] [address] | | | SERVICES, CORE | DIGNA [...] [facility] | [address] | [place] [address] | | | DWIGHT MARTINEZ | DIGNA [...] [facility] | [address] | [place] [address] | | | SERVICES, CORE | PARK [...] | | | LABORATORY | | | CHADIAN | | | SERVICES, | | | [...] recommended by the National | [facility] | | Kidney Disease Education Program. [...] + + | [facility] | [address] [facility] | [place] [address] | | | SERVICES, CORE | PARK [...] [facility] | [address] | [place] [address] | | | SERVICES, CORE | PARK [...] | + + + + + | [facility] | [address] | [place] [address] | | | SERVICES, CORE | DIGNA [...] [facility] | [address] | [place] [address] | | | SERVICES, | [address] [...] [facility] | [address] | [place] [address] | | | MICHELLE, DWIGHT | DIGNA [...] [facility] | [address] | [place], [place] | | | KAREN CASANOVA OF KATHERINE | [facility] | [id number] | | | TESTS | | | [...] [facility] | [address] | [place] [address] | | | SERVICES, CORE | PARK [...] | + + + + + | [facility] | [address] | [place] [address] | | | SERVICES, CORE | DIGNA [...] [facility] | [address] | [place] [address] | | | SERVICES, CORE | DIGNA [...] | | | LABORATORY | | | CHADIAN | | | SERVICES, | | | [...] recommended by the National | [facility] | | Kidney Disease Education Program. Estimated GFR Interpretive | LABORATORY | | Information: <60 mL/min/1.73 sq m Chronic Kidney | [place], [facility] [place] | | Disease <15 mL/min/1.73 sq m [...] [facility] | [address] [address] | [place] [address] | | | MICHELLE, DWIGHT | DIGNA [...] | + + + + + | [facility] | [address] | [place] [address] | | | SERVICES, CORE | DIGNA [...] | + + + + + | [facility] | [address] | [place] [address] | | | SERVICES, CORE | PARK [...] + | [facility] Infinit | [address] | [place] [address] | | | SERVICES, CORE | DIGNA [...] [facility] LABORATORY | [address] | [place] [address] | | | SERVICES, CORE | DIGNA [...] + + + | ECG | Prolonged MI interval | | [facility] | | [...] DEPT OF | [address] | [place], [place] | | | CARDIOLOGY | [address] | [address] | | + + + + + ED INFORMATION EXCHANGE (08/24/2019 6:17 PM PST) + + | Specimen | + + | | + + + + + | Narrative | Performed At | + + + | COLLECTIVE?NOTIFICATION?08/24/2019 18:16?HANK ALTMAN?MRN: | [facility] | | [id number] Criteria Met PDMP Security and Safety No [...] E.D. Visit Count (12 mo.) Facility Visits [facility] and | | | [facility] 1 [facility] 1 Total 2 Note: | | | Visits indicate total known visits. Recent Emergency Department | | | Visit Summary Date Facility City State Type Diagnoses or Chief | | | Complaint Aug 24, 2019 [facility] [place] | | | [place] Emergency 10,800. abnormal labs Jul 27, 2019 [facility] | | | [place] [facility] [place] Emergency Other jail (current) drug | | | therapy Other specified disorders of kidney and ureter Low | | | back pain Hematuria, unspecified Recent Inpatient | | | Visit Summary No recorded inpatient visits. Care Team There is | | | not a care team on record at this time. zerved Portal This | | | patient has registered at the [facility] | | | Emergency Department For more information visit: | | | [email or web address] | | | [email or web address] PLEASE NOTE: 1. Any care recommendations [...] or completeness of information provided. ? 2019 [employer]am[employer] | | | [employer] - [email or web address] | | + + + + + [...] Visit | | Count (12 mo.)Facility Visits [facility] 1 GUSTAVO Dykes | | Hospital 1 Total 2 Note: Visits indicate total known visits. Recent Emergency | | Department Visit SummaryDate Facility City State Type Diagnoses or Chief Complaint Dec | | 2018 [facility] [place] Emergency 10,800. 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 Care | | TeamThere is not a care team on record at this time. zerved PortalThis patient has | | registered at the [facility] Emergency Department For more | | information visit: | | [email or web address] PLEASE | | NOTE: 1. Any care [...] completeness of information | | provided.? 2019 [employer]. - [email or web address] | |Benzos 0 | |Opioids 3 | |Long Acting Opioids 0 | | | | | | | |E.D. Visit Count (12 mo.) | |Facility Visits | |[facility] 1 | |[facility] 1 | |Total 2 | |Note: Visits indicate total known visits. | | | |Recent Emergency Department Visit Summary | |Date Facility City State Type Diagnoses or Chief Complaint | |Aug 24, 2019 [facility] [place] Emergency | | 10,800. abnormal labs | | | |Jul 27, 2019 [facility] [place] Emergency | | Other jail (current) drug therapy | | Other specified disorders of kidney and ureter | | Low back pain | | Hematuria, unspecified | | | | | | | |Recent Inpatient Visit Summary | |No recorded inpatient visits. | | | |Care Team | |There is not a care team on record at this time. | |PassKit | |This patient has registered at the [facility] Emergency Departmen t | |For more information visit: [email or web address] | |PLEASE NOTE: | | 1. Any [...] information provided. | | | |? 2019 [employer]. - [email or web address] | + + + + + + + | Performing | Address | City/State/Zipcode | Phone Number | | Organization | | | | + + + + + | [facility] | [address] | [place], [place] | [phone] | | [employer] | [address] | [address] | | + + + + + [...] | | | MEALS, First dose on [facility] 09/01/19 | | | | | | [...] PST | | | | | Until [facility] 09/01/19 at 2103, | | | | [...] | | | | | modification) on [facility] 08/25/19 at | | | | | [...] | | | oral, ONCE, 1 dose, [facility] 08/25/19 | | AM PST | | [...]
--- OUTSIDE RECORDS SUMMARY | ~2020-06-29 | XMS | Encounter Summary ---
Demographics + + + | Address | [address] | | | [place] [address] | + + + | Home Phone [...] Team Providers + +------+ + | Care Zoo Keeper Name | Role | Phone | [...] | | | | | cancer, | [address] | [address] | | | | | primary, | [facility] | [facility] | | | | | with | Ct | Hospital, | | | | | metastasis | [facility], | 10th Floor | | | | | from kidney | [place] | [place], [place] | | | | | to other | [address] | [address] | | | | | site, left | Phone: | Phone: | | | | | (HCC) | [phone] | [phone] | | | | | Procedures | Fax: | Fax: | | | | | CT CHEST, | [phone] | [phone] | | | | | ABDOMEN AND [...] Orders | Clinics at S | [place] [address] [address] | | | | | [facility] [address] | | | | | [facility] for | [place], [place] | | | | | Health and Healing, | [address] | | | | | [facility] 2 | [phone] | | | | | [place], [place] | | | | | | [address] | | | | | | [phone] | | | +--------+ + + + [...] | | + +---------+ + + | [facility] | | | | | VOICE RECOGNITION 2 | | | | + +---------+ + + documented in this encounter Visit Diagnoses + + | Diagnosis | + + | Kidney cancer, primary, 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
--- OUTSIDE RECORDS SUMMARY | ~2020-06-29 | XMS | Encounter Summary ---
Demographics + + + | Address | [address] | | | [place] [address] | + + + | Home Phone [...] Team Providers + +------+ + | Care Technical Product Manager Name | Role | Phone | + +------+ + | Lissette Martinez PA-C | PCP | | + +------+ + Encounter Details +--------+ + + + + | Date | Type | Department | Care Team | Description | +--------+ + + + + | 08/09/ | Pacs Administrator | [facility] | Ash Cavazos MD | Renal mass (Primary | | 2019 | | Clinics at S | [address] | Dx) | | | | [facility] [address] | Digna Sanches [place], | | | | | [facility] | [place] [address] | | | | | Health and Healing, | [phone] | | | | | [address] | | | | | | [place], [place] | | | | | | [address] | | | | | | [phone] | | | +--------+ + + + [...]
--- OUTSIDE RECORDS SUMMARY | ~2020-06-29 | XMS | Encounter Summary ---
Demographics + + + | Address | [address] | | | [place] [address] | + + + | Home Phone [...] Team Providers + +------+ + | Care Tierce Filler Name | Role | Phone | [...] education; | | 2020 | | at [facility] [address] | [address] [facility] | Medication Refill | | | | [address] [place] | [facility] | (refilled | | | | Pavilion, 4th floor | [place], [place] | dexamethasone); | | | | [place], [place] | [address] | Letter Encounter | | | | [address] | [phone] | (work leave letter) | | | | [phone] | | | +--------+ + + + [...] Pace RN - 03/02/2020 11:09 AM PDTCalled Pharmacy in [facility] and spoke with Sammy the pharmacist. Confirmed [...] a refill sent to her preferred pharmacy, [id number] - [place], [place] - [address] [phone] . William would like a call back today to discuss this further. Please review and advise. elephone Ness - Hemanth Cardenas RN - 02/27/2020 1:50 PM PDTNursing Note: Spoke with Tial Altman today to give site specific radiation treatment education. Julianne alvares is alert and oriented with some slow/slurred speech noted which is her current baseline. The patient lives in [place], [place] and plans on staying at her Aunt's house in [facility] during her RT course and plans [...] of information discussed. Sent mychart message with [facility] daytime and afterhours phone numbers. Reviewed whe n to call for side effects. Patient said she will NOT require anxiolytics for her RT. Refilled current prescription for dexamethasone 4mg BID to [facility]. Patient will discuss tapering instructions with Dr. Beard at [facility], routed to Dr. Beard for reminder to d jodi taper at [facility]. Patient requesting work leave letter. Will type up and have Dr. Jaboin theodore. Waiting on fax# for patient's work. 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 Will fax signed letter once receive [...]
--- OUTSIDE RECORDS SUMMARY | ~2020-06-29 | XMS | Encounter Summary ---
Demographics + + + | Address | [address] | | | [place] [address] | + + + | Home Phone [...] Team Providers + +------+ + | Care Stress Engineer Name | Role | Phone | [...] education; | | 2020 | | at [facility] [address] | [address] [facility] | Medication Refill | | | | [address] [place] | [facility] | (refilled | | | | Pavilion, 4th floor | [place], [place] | dexamethasone); | | | | [place], [place] | [address] | Letter Encounter | | | | [address] | [phone] | (work leave letter) | | | | [phone] | | | +--------+ + + + [...] Pace RN - 03/02/2020 11:09 AM PDTCalled [facility] in [facility] and spoke with Sammy [...] refill sent to her preferred pharmacy, [id number] - [place], [place] - [address] [phone] . William would like a call back today to discuss this further. Please review and advise. elephone Ness - Hemanth Cardenas RN - 02/27/2020 1:50 PM PDTNursing Note: Spoke with Tila Altman today to give site specific radiation treatment education. Julianne alvares is alert and oriented with some slow/slurred speech noted which is her current baseline. The patient lives in [place], [place] and plans on staying at her Aunt's house in [facility] during her RT course and plans to [...] of information discussed. Sent mychart message with [facility] daytime and afterhours phone numbers. Reviewed whe n to call for side effects. Patient said she will NOT require anxiolytics for her RT. Refilled current prescription for dexamethasone 4mg BID to [facility]. Patient will discuss tapering instructions with Dr. Beard at [facility], routed to Dr. Beard for reminder to d jodi taper at [facility]. Patient requesting work leave letter. Will type up and have Dr. Jaboin theodore. Waiting on fax# for patient's work. 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 Will fax signed letter once receive [...]
--- OUTSIDE RECORDS SUMMARY | ~2020-06-29 | XMS | Encounter Summary ---
Demographics + + + | Address | [address] | | | [place] [address] | + + + | Home Phone [...] Team Providers + +------+ + | Care Jewelry Repairer Name | Role | Phone | [...] | | | | [place] | [place] [address] [address] | [address] | | | | | a of | [facility] | [address] | | | | | malignancy | Ct | Center for | | | | | Renal cell | [facility], | [facility] and | | | | | adenocarcino | [place] | Healing, | | | | | ma (HCC) | [address] | [address] | | | | | Procedures | Phone: | [place], [place] | | | | | [place] | [phone] | [address] | | | | | PAMIDRONATE | Fax: | Phone: | | | | | DISODIUM, | [phone] | [phone] | | | | | PER 30 MG | | Fax: | | | | | [place] | | [phone] | | | | | THR/PRPH/DX | [...] + + | 10/31/ | Hospital | [facility] | [address] | | | 2020 | Encounter | Clinics at S | [address] [place], [place] | | | | | [facility] [address] | [address] | | | | | [facility] | | | | | | Health and Healing, | | | | | | Building [address] | | | | | | [place], [place] | | | | | | [address] | | | | | | [phone] | | | +--------+ + + + [...] Jones. Plan for troponin and repe at [facility]. As per Md do not need to have pt wait for results. Will stay with family in [facility] and 9:30 am clinic appointment tomorrow. Will also increase her synthroid (md to se nd to pharm). Reviewed plan with Ms. Barragan and her family who verbalized understanding. PIV d/c'd and intact. 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 Refer to MAR [...] [facility] | [address] | [place] [address] | | | SERVICES, CORE | PARK [...] | | | LABORATORY | | | [place] | | | SERVICES, | | | [...] MDRD equation recommended by the National | [facility] | | Kidney Disease Education Program. [...] JEANETTE OLIVAREZ | [address] | [place] [address] | | | SERVICES, DWIGHT | MELBA [...]
--- OUTSIDE RECORDS SUMMARY | ~2020-06-29 | XMS | Encounter Summary ---
Demographics + + + | Address | [address] | | | [place] [address] | + + + | Home Phone | | + + + | Preferred Language | Unknown | + + + | Marital Status | | + + + | Voodoo Affiliation | 1013 | + + + | Race | or Other | + + + | Ethnic Group | Not or | + + + Author + + + | Author | [facility] | | | and Shahram | + + + | Organization | [facility] | | | and Marcana [...] Providers + +------+ + | Care Air Technician Name | Role | Phone | [...] | | | [address] | [place] [address] | | | | | [place] [address] | | | | | | [phone] | | | +--------+ + + + [...]
--- OUTSIDE RECORDS SUMMARY | ~2020-06-29 | XMS | Encounter Summary ---
Demographics + + + | Address | [address] | | | [place] [address] | + + + | Home Phone [...] Team Providers + +------+ + | Care Chiropractor Assistant Name | Role | Phone | + +------+ + | Lissette Martinez PA-C | PCP | | + +------+ + Encounter Details +--------+ + + + + | Date | Type | Department | Care Team | Description | +--------+ + + + + | 03/16/ | Pharmacy | Pharmacy @ [facility] | | | | 2020 | Visit | [address] | | | | | | [address] Mailcode: | | | | | | [facility] | | | | | | and Healing, | | | | | | [address] | | | | | | [place], [place] | | | | | | [address] | | | +--------+ + + + [...]
--- OUTSIDE RECORDS SUMMARY | ~2020-06-29 | XMS | Encounter Summary ---
Demographics + + + | Address | [address] | | | [place] [address] | + + + | Home Phone [...] Team Providers + +------+ + | Care Polymerization Oven Tender Name | Role | Phone | + +------+ + | Lissette Martinez PA-C | PCP | | + +------+ + Encounter Details +--------+ + + + + | Date | Type | Department | Care Team | Description | +--------+ + + + + | 10/29/ | Appian Developer | [facility] | Lissette Jones, | | | 2019 | | Clinics at S | [place] [address] [address] | | | | | [facility] [address] | | | | | [facility] for | [place], [place] | | | | | Health and Healing, | [address] | | | | | [address] | [phone] | | | | | [place], [place] | | | | | | [address] | | | | | | [phone] | | | +--------+ + + + [...]
--- OUTSIDE RECORDS SUMMARY | ~2020-06-29 | XMS | Encounter Summary ---
Demographics + + + | Address | [address] | | | [place] [address] | + + + | Home Phone [...] Team Providers + +------+ + | Care Asian Studies Program Chair Name | Role | Phone | + [...] [address] | | | | | | [address] [place] | | | | | | [address] | | | | | | [place], [place] | | | | | | [address] | | | | | | [phone] | | | +--------+ + + + [...]
--- OUTSIDE RECORDS SUMMARY | ~2020-06-29 | XMS | Encounter Summary ---
Demographics + + + | Address | [address] | | | [place] [address] | + + + | Home Phone [...] Team Providers + +------+ + | Care Keypuncher Name | Role | Phone | + [...] | 02/12/ | Clinical | Laboratory at [facility] | | Lab Draw (PIV) | | 2020 | Support | [address] | | | | | Staff | [facility] | | | | | | and Healing, | | | | | | [address] | | | | | | [place], [place] | | | | | | [address] | | | | | | [phone] | | | +--------+ + + + [...] + + documented in this encounter Results [facility] - COMPLETE METABOLIC SET (02/13/2020 9:24 AM [...] | | | LABORATORY | | | [place] | | | SERVICES, | | | [...] MDRD equation recommended by the National | [facility] | | Kidney Disease Education [...] | + + + + + | [facility] | [address] | [place] [address] | | | SERVICES, [place] [facility] | | | | | HEALTH [...] JEANETTE OLIVAREZ | [address] | [place] [address] | | | SERVICES, [facility] [...]
--- OUTSIDE RECORDS SUMMARY | ~2020-06-29 | XMS | Encounter Summary ---
Demographics + + + | Address | [address] | | | [place] [address] | + + + | Home Phone [...] Team Providers + +------+ + | Care Easement Man Name | Role | Phone | [...] + + | 08/24/ | Office | [facility] | Jay JayvillaLissette, | Renal cell carcinoma | | 2019 | Visit | Clinics at S | [place] [address] [address] | of left kidney | | | | [facility] [address] | [address] | (HCC) (Primary Dx) | | | | [facility] | [place], [place] | | | | | Health and [facility], | [address] | | | | | [place] [address] | [phone] | | | | | [place], [place] | | | | | | [address] | | | | | | [phone] | | | +--------+---------+ + + + [...] bolus 1,000 mL 1,000 mL intravenous ONCE Khusbhoo Roberts 1,000 mL at 08/24/19 1539 Review [...] CREATININE PLASMA (LAB) 08/23/2019 2.12* EGFR - [place] 08/23/2019 29* EGFR NON -[place] 08/23/2019 24* SODIUM, PLASMA (LAB) 08/23/2019 137 [...]
--- OUTSIDE RECORDS SUMMARY | ~2020-06-29 | XMS | Encounter Summary ---
Demographics + + + | Address | [address] | | | [place] [address] | + + + | Home Phone [...] Providers + +------+ + | Care Product Merchandiser Name | Role | Phone | + [...] | 10/31/ | Clinical | Laboratory at [facility] | | Lab Draw | | 2020 | Support | [address] | | | | | Staff | [facility] | | | | | | and Healing, | | | | | | [address] | | | | | | [place], [place] | | | | | | [address] | | | | | | [phone] | | | +--------+ + + + [...] | PST | kidney ([facility]) | results section. | + +--------+ + + + | COMPLETE METABOLIC | Routin | 10/31/2019 | Renal cell | Results for this | | PANEL - OLP | e | 9:10 AM | carcinoma of left | procedure are in the | | | | PST | kidney ([facility]) | results section. | + +--------+ + + + | CBC WITH AUTO DIFF - | Routin | 10/31/2019 | Renal cell | Results for this | | OLP | e | 9:10 AM | carcinoma of left | procedure are in the | | | | PST | kidney ([facility]) | results section. | + +--------+ + + + | [facility] - COMPLETE | Routin | 10/31/2019 | Renal cell | Results for this | | METABOLIC SET | e | 9:10 AM | carcinoma of left | procedure are in the | | | | PST | kidney ([facility]) | results section. | + +--------+ + + + | FREE T4 | Routin | 10/31/2019 | Renal cell | Results for this | | | e | 9:10 AM | carcinoma of left | procedure are in the | | | | PST | kidney ([facility]) | results section. | + +--------+ + + + | TSH | Routin | 10/31/2019 | Renal cell | Results for this | | | e | 9:10 AM | carcinoma of left | procedure are in the | | | | PST | kidney ([facility]) | results section. | + +--------+ + + + | CORTISOL, SERUM | Routin | 10/31/2019 | Renal cell | Results for this | | | e | 9:10 AM | carcinoma of left | procedure are in the | | | | PST | kidney ([facility]) | results section. | + +--------+ [...] + + + | [facility] | [address] | [place] [address] | | | DWIGHT MARTINEZ | MELBA [...] + + + | [facility] | [address] | [place] [address] | | | SERVICES, CORE | PARK [...] [facility] | [address] | [place] [address] | | | SERVICES, CORE | MELBA [...] SERVICES, | | | | | | [facility] | | | | | [...] SERVICES, | | | | | | [facility] | | | | | [...] | + + + + + | [facility] | [address] | [place] [address] | | | SERVICES, [facility] | | | | | HEALTH [...] | included in the neutrophil count. | [facility] | | | HEALTH + | | | HEALING | + + + + + + + + | Performing | Address | City/State/Zipcode | Phone Number | | Organization | | | | + + + + + | [facility] | [address] | [place] [address] | | | [facility] | | | | | HEALTH + HEALING | | | | + + + + + documented in this encounter Visit Diagnoses + + | Diagnosis | + + | 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
--- OUTSIDE RECORDS SUMMARY | ~2020-06-29 | XMS | Encounter Summary ---
Demographics + + + | Address | [address] | | | [place] [address] | + + + | Home Phone [...] + + + | Author | [facility] | | | and Shahram | + + + | Organization | [facility] | | [...] Team Providers + +------+ + | Care Finished Yarn Examiner Name | Role | Phone | + +------+ + | Lissette Martinez | PCP | | | RADHA | | | + +------+ + Encounter Details +--------+ + + + + | Date | Type | Department | Care Team | Description | +--------+ + + + + | 12/12/ | [facility]ati [facility] | Florin Roach, | | | 2020 | on | [facility] | HAND TIRE TRIMMER | | | | | [facility] [address] | | | | | | [address] | | | | | | [place] [address] | | | | | | [phone] | | | +--------+ + + + [...]
--- OUTSIDE RECORDS SUMMARY | ~2020-06-29 | XMS | Encounter Summary ---
Demographics + + + | Address | [address] | | | [place] [address] | + + + | Home Phone [...] Providers + +------+ + | Care Cutter Grinder Name | Role | Phone | [...] | Radiology | Diagnoses | [place], | [place] | | | | | Kidney | [place], | [facility] & | | | | | cancer, | [address] | [employer] | | | | | primary, | [address] | [address] [facility] | | | | | with | Ct | [place]EL [place]ILL[place] | | | | | metastasis | [place], | ROAD | | | | | from kidney | [place] | [place], [place] | | | | | to other | [address] | [address] | | | | | site, left | Phone: | Phone: | | | | | (HCC) | [phone] | [phone] | | | | | Procedures | Fax: | | | | | | CT CHEST, | [phone] | | | | | | ABDOMEN [...] neoplasm of | E, [place]-C | [place] [address] [address] | | | | | unspecified | [place] | [address] | | | | | kidney, | Family | [place], | | | | | except renal | Medicine | [place] [address] | | | | | pelvis | [address] | Phone: | | | | | Procedures | [address] | [phone] | | | | | [place] NEW | [place], | Fax: | | | | | PATIENT | [place] [address] | [phone] | | | | | LEVEL V [place] | Phone: | | | | | | EST PATIENT | [phone] | | | | | | LEVEL V | Fax: | | | | | | | [phone] | | + +---------+ + + + + Encounter Details +--------+ + + + + | Date | Type | Department | Care Team | Description | +--------+ + + + + | 06/26/ | Video/TeleH | [facility] | [place] Jones, | | | 2019 | ealth-Sched | Clinics at S | [place] [address] | | | | uled | [place] [address] | | | | | [facility] for | [place], [place] | | | | | Health and Healing, | [address] | | | | | Building [address] | [phone] | | | | | [place], [place] | | | | | | [address] | | | | | | [phone] | | | +--------+ + + + [...] irtually located at the distant site of [facility]. The patient stated they were located at the [facility] site of home and were in the state of [place] at the time of the virtual visit. The n da of all additional persons participating in the virtual visit and their roles are: shiv alvares. I have spent a total of 32 minutes on this patient's care today. This time includes the vi rtual visit [id number] time with the patient as well as [...] to due to concern for traveling to [place] and to coordinate with Dr. Beard's appitment. [...] keppra and planning RT with Dr. Beard ([facility]) Next CT scan should be done at [facility] 07/2020(before ); she wants to coordinate w [facility] Dr. Beard Medications: Current Outpatient Medications [...]
--- OUTSIDE RECORDS SUMMARY | ~2020-06-29 | XMS | Encounter Summary ---
Demographics + + + | Address | [address] | | | [place] [address] | + + + | Home Phone [...] Team Providers + +------+ + | Care Veneer Stacker Name | Role | Phone | + [...]
--- OUTSIDE RECORDS SUMMARY | ~2020-06-29 | XMS | Encounter Summary ---
Demographics + + + | Address | [address] | | | [place] [address] | + + + | Home Phone [...] Team Providers + +------+ + | Care Cpa Tax Name | Role | Phone | [...] | | Clinics at S | [place] [address] [address] | | | | | [place] [address] | | | | | [facility] for | [place], [place] | | | | | Health and Healing, | [address] | | | | | [address] | [phone] | | | | | [place], [place] | | | | | | [address] | | | | | | [phone] | | | +--------+--------+ + + + [...] garza MD is scheduled on 03/12/20. Last [facility] progress note reviewed. Is there documentation to indicate that medication being r equested has been changed or discontinued? No Allergy list reviewed--Is the medication being requested on the patient's current allergy l ist? No Previous Prescription Details copied below: Date and Time Department Ordering Authorizing 02/28/2020 4:[address] [facility] Ariana Garcia MA Unknown Outpatient Medication Detail Disp Refills scopolamine 1 mg over 3 days transdermal patch 3 day Class: Historical Med Order: [id number] Per [facility] policy, routing encounter to [facility] for review and approval. elephone Encounter - Anai Jimenez - 02/28/2020 11:48 AM PDTRx Refill: Routing encounter to [place] thanh for proce ssing.. Pharmacy Name: [facility] Phone #: [phone] -->MA : Please review prescription refill request. Thank you. documented in this encount er Plan of Treatment Not on filedocumented as of this encounter Visit Diagnoses Not on filedocumented in this encounter"
--- OUTSIDE RECORDS SUMMARY | ~2020-06-29 | XMS | Encounter Summary ---
Demographics + + + | Address | [address] | | | [place] [address] | + + + | Home Phone [...] Team Providers + +------+ + | Care Shaper Machine Hand Name | Role | Phone | [...] | | Clinics at S | [place] [address] [address] | | | | | [place] [address] | | | | | [facility] for | [place], [place] | | | | | Health and [facility], | [address] | | | | | [facility] | [phone] | | | | | [place], [place] | | | | | | [address] | | | | | | [phone] | | | +--------+ + + + [...] be folloing up with this request via [employer]box e-mail P DTTelephone Encounter - Anai Jimenez - 05/23/2020 2:32 PM PDTTeam Coordinator Documentati on: Subject: Note TC: Images from [place]'s scan on 05/06 available on Barcoding -->Note to RNC: HOMA elephone Encounter - Wats on, Tess Moran MA - 05/23/2020 2:23 PM PDT documented in this encounter Plan of Treatment Not on filedocumented as of this encounter Visit Diagnoses Not on filedocumented in this encounter"
--- OUTSIDE RECORDS SUMMARY | ~2020-06-29 | XMS | Encounter Summary ---
Demographics + + + | Address | [address] | | | [place] [address] | + + + | Home Phone [...] Team Providers + +------+ + | Care Bronc Buster Name | Role | Phone | + [...]
--- OUTSIDE RECORDS SUMMARY | ~2020-06-29 | XMS | Encounter Summary ---
Demographics + + + | Address | [address] | | | [place] [address] | + + + | Home Phone [...] Team Providers + +------+ + | Care Basket Mender Name | Role | Phone | [...]
--- OUTSIDE RECORDS SUMMARY | ~2020-06-29 | XMS | Encounter Summary ---
Demographics + + + | Address | [address] | | | [place] [address] | + + + | Home Phone [...] Team Providers + +------+ + | Care Cytology Laboratory Manager Name | Role | Phone | [...] + + | 12/28/ | Telephone | [facility] Primary Care | Yeni, | faxed communication | | 2020 | | at [facility] | [place] [address] | [facility] | | | | [address] | [address] [facility] | | | | | Loop Physician's | [address] [facility], [place] | | | | | [place], 3rd floor | [address] | | | | | [place], [place] | [phone] | | | | | [address] | | | | | | [phone] | | | +--------+ + + + [...]
[~2020-06-29 16:02] MED LIST changes: +CABOMETYX20 MG PO; +KEPPRA500 MG PO
--- OUTSIDE RECORDS SUMMARY | 2020-06-29 16:04 | XMS ---
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 E.Dung. VISIT COUNT (12 MO.) [address] TOTAL 8 NOTE: Visits indicate total known visits. ED/UCC VISIT TRACKING (12 MO.) 2020 16:02 [facility] [place] TYPE: Emergency COMPLAINT: - ALTERED LOC 06/05/2020 11:06 [facility] [place] TYPE: Emergency COMPLAINT: - SEIZURE DIAGNOSES: - Pure hypercholesterolemia, unspecified - Malignant neoplasm of unspecified kidney, except renal pelvis - alf (current) use of opiate analgesic - Unspecified convulsions - Hypothyroidism, unspecified - Other [facility] (current) drug therapy - Secondary malignant neoplasm of brain 05/06/2020 11:58 [facility] [place] TYPE: Emergency COMPLAINT: - WEAKNESS 02/22/2020 22:48 [facility] [place] TYPE: Emergency COMPLAINT: - STROKE SYPMTOMS DIAGNOSES: - Hypothyroidism, unspecified - Malignant neoplasm of unspecified kidney, except renal pelvis - Other medical terminologist (current) drug therapy - Secondary malignant neoplasm of brain - Facial weakness 11/21/2019 12:12 [facility] TYPE: Emergency DIAGNOSES: 61640. AMR 33 60633. Hypotension, unspecified 55891. 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 abnormal labs 24296. Malignant neoplasm of left kidney, except renal pelvis 52918. Wedge compression fracture of second lumbar vertebra, initial 76433. Hyperkalemia 12178. Hypercalcemia 07/27/2019 08:03 [facility] [place] TYPE: Emergency COMPLAINT: - BACK PAIN, NON INJ DIAGNOSES: - Other [facility] (current) drug therapy - Other specified disorders of kidney and ureter - Low back pain - Hematuria, unspecified INPATIENT VISIT TRACKING (12 MO.) 05/06/2020 11:59 [facility] [place] TYPE: Observation COMPLAINT: - DEHYDRATION DIAGNOSES: - intermediate project manager (current) use of anticoagulants - Gastro-esophageal reflux disease without esophagitis - Personal history of pulmonary embolism - Tachycardia, unspecified - Hypothyroidism, unspecified - Other medical terminologist (current) drug therapy - Malignant neoplasm of unspecified kidney, except renal pelvis - Acute kidney failure, unspecified - Contact with and (suspected) exposure to other viral communic - Dehydration 11/21/2019 12:12 [facility] TYPE: General Medicine DIAGNOSES: 62316. Wedge compression fracture of second lumbar vertebra, initial 29252. Hyperuricemia without signs of inflammatory arthritis and top 40747. Malignant neoplasm of left kidney, except renal pelvis 53085. Anemia, unspecified 44172. Hypothyroidism, unspecified 07803. Hypercalcemia 09196. Hyperkalemia 75610. Acute kidney failure, unspecified 37329. Hypotension, unspecified 47234. Thyrotoxicosis, unspecified without thyrotoxic crisis or stor 29131. Wedge compression fracture of first lumbar vertebra, initial 33266. Malignant neoplasm of unspecified kidney, except renal pelvis 08/24/2019 18:16 [facility] TYPE: Inpatient DIAGNOSES: 41232. Hyperkalemia 26923. Wedge compression fracture of second lumbar vertebra, initial 70096. Hypercalcemia 20152. Malignant neoplasm of left kidney, except renal pelvis [email or web address]
[2020-06-29] MEDS ORDERED: ELIQUIS5 MG PO (16:16)
[2020-06-29] MEDS ORDERED: DEXAMETHASONE4 MG PO (17:19)
--- NOTE | 2020-06-29 22:00 | NUR ---
PATIENT ARRIVED VIA STRETCHER. ABLE TO TRANSFER WITH 2PA TO [facility]. PATIENT VOIDED 225 MLS CONCENTRATED URINE. PATIENT THEN TRANSFERED INTO BED. APPEARS WEAK AND MOVES SLOWLY. PATIENT IS ORIENTED. HOWEVER SHE DOES HAVE SOME WORD SEARCHING THAT IS NOT NORMAL FOR HER ACCORDING TO HER FAMILY AT THE BEDSIDE. VS STABLE. PATIENT REPORTS GOOD PAIN CONTROL AND NO NAUSEA. IV FLUIDS STARTED PER ORDER, SITE WNL X2. PATIENT HAD SOME SIPS OF WATER AND JELLO. FAMILY AT BEDSIDE. NO NEEDS AT THIS TIME.
--- NOTE | 2020-06-30 00:02 | NUR ---
PATIENT'S FAMILY HAS GONE HOME FOR THE NIGHT. PATIENT RESTING IN BED, EYES CLOSED. VS STABLE. HR 90'S, SR. TOLERATING ROOM AIR. ALLOWED PATIENT TO REST. CALL LIGHT IN REACH.
--- NOTE | 2020-06-30 02:00 | NUR ---
PATIENT APPEARS TO BE SLEEPING SOUNDLY. VS STABLE. CALL LIGHT IN REACH.
--- NOTE | 2020-06-30 05:00 | NUR ---
PATIENT UP TO BSC. 2PA. PATIENT MOVES SLOWLY BUT IS ABLE TO TRANSFER WELL. PATIENT VOIDED 300 MLS CONCENTRATED URINE. IV FLUIDS INFUSING PER ORDER, SITE WNL. PATIENT DENIES ANY NEEDS AT THIS TIME. DISCUSSED PLAN OF CARE FOR THIS MONRING. PATIENT IS ALERT AND ORIENTED, ASK APPROPRIATE QUESTIONS. CALL LIGHT IN REACH.
--- NOTE | 2020-06-30 05:30 | NUR ---
WITH THE HELP OF MISAEL TOMAS WE HELPED PT TO THE BSC. WITH THE HELP OF MISAEL SHAH WE HELPED HER BACK TO BED. BEDSIDE TABLE AND CALL LIGHT IN REACH.
--- NOTE | 2020-06-30 06:40 | NUR ---
SCHEUDLED MEDS PROVIDED TO PATIENT. PATIENT APPEARED TO BE SLEEPING BUT WOKE EASILY WHEN RN ENTERED ROOM. PATIENT DENIED ANY OTHER NEEDS. ABLE TO SWALLOW PILLS WITHOUT ISSUES. NO NAUSEA. PAIN 5/10, GOAL 4/10. SCHEDULED OXY PROVIDED.
--- NOTE | 2020-06-30 07:45 | NUR ---
REPORT RECIEVED FROM ALYSSA DOUGLAS. PT IN BED SLEEPING AT THIS TIME. VISUALIZED CHEST RISE AND FALL. CALL LIGHT AT BEDSIDE.
--- NOTE | 2020-06-30 10:45 | NUR ---
IN ROOM TO GIVE PT PAIN MEDICATION. PT RATING LOWER BACK PAIN 6/10. PT JUST COMPLETED AMBULATING IN THE [place] WITH WALKER WITH PHYSICAL THERAPY PRESENT. PT TOLERATED WELL. DENIES SOB. REMOVED 18 G IV FROM GARRICK, UNABLE TO FLUSH. UPON REMOVAL OF IV, TUBING PAST HUB KINKED. PT RECLINED IN CHAIR RESTING. CALL LIGHT WITHIN REACH.
--- NOTE | 2020-06-30 12:28 | NUR ---
PT UP IN CHAIR EATING LUNCH AND WATCHING TELEVISION. SON IN ROOM. NO COMPLAINTS AT THIS TIME.
--- NOTE | 2020-06-30 14:00 | NUR ---
PT TRANSFERRED TO MED-SURG TO RM 107 VIA CHAIR. REPORT GIVEN TO MICHELLE DOUGLAS. PT HAS BEEN AFEBRILE AND VSS. LUNG SOUNDS REMAIN DIMINISHED IN BILAT BASES. PT WORKING WELL WITH INCENTIVE SPIROMETER. PT IS W/OUT COMPLAINT AT THIS TIME. SON PRESENT.
--- NOTE | 2020-06-30 14:16 | NUR ---
PATIENT ARRIVED VIA CHAIR FROM CCU WITH NURSE MACK, PATIENT'S SON IS WITH PATIENT. PATIENT UP TO BATHROOM WITH ONE PERSON ASSIST AND USING FWW WELL.
--- NOTE | 2020-06-30 17:11 | NUR ---
PATIENT SITTING UP IN BED FOR DINNER, FAMILY IN ROOM HELPING PATIENT. 5MG OXYCODONE GIVEN FOR 6/10 CHRONIC LOWER BACK PAIN.
--- NOTE | 2020-06-30 17:45 | EKG ---
[facility] [address] [facility] [place] [address] Signed Normal sinus rhythm Left axis deviation Inferior infarct (cited on or before 04-NOV-2019) Possible Anterior infarct (cited on or before 04-NOV-2019) Abnormal ECG When compared with ECG of 22-FEB-2020 23:31, T wave inversion no longer evident in Anterior leads T wave inversion now evident in Lateral leads Confirmed by LO CAMP MD ([id number]) on 06/30/2020 5:45:30 PM Electronically Signed By: LO CAMP MD 06/30/20 1745 PATIENT NAME: HANK HER ANTWAN Electrocardiogram DATE OF : 61 PHYSICIAN: LO CAMP MD REPORT #: [id number] REPORT IS CONFIDENTIAL AND NOT TO BE RELEASED WITHOUT AUTHORIZATION
--- NOTE | 2020-06-30 20:00 | NUR ---
V/S OVERALL ARE WDL. ABD SOUNDS ARE HYPOACTIVE, UPPER LOBES ARE CLEAR AND DIMINISHED. LOWER LOBES HAVE CRACKLES PRESENT. PT SO FAR DENIES SOB. BILATERAL FEET HAVE +2 EDEMA, UBALDO. LOWER LEGS HAVE +2 EDEMA, UBALDO. UPPER ARMS HAVE GENERALIZED EDEMA. ABDOMEN HAS ASCITIES PRESENT, SKIN APPEARS JAUNDICE. PT IS AAOX4 AT THIS TIME.
--- NOTE | 2020-06-30 20:58 | NUR ---
FRESH ICE WATER GIVEN TO PT. PER HER REQUEST KLEENEX WAS GIVEN TO HER WELL. BEDSIDE TABLE AND CALL LIGHT IN REACH. PT NEEDS NOTHING MORE AT THIS TIME.
--- NOTE | 2020-06-30 21:01 | NUR ---
PERSONNEL RESEARCH PSYCHOLOGIST ROUNDING NOTE. PT RESTING IN BED DRINKNING JUICE, WATCHING TV. DENIES QUESTIONS, CONCERNS, OR NEEDS AT THIS TIME. CALL LIGHT IN REACH. WHITE BOARD UPDATED.
--- NOTE | 2020-06-30 22:30 | NUR ---
THIS INJECTION MAINTENANCE TECHNICIAN AND FLOAT INJECTION MAINTENANCE TECHNICIAN DECEMBER HELPED PATIENT USE THE BATHROOM USING WALKER. PATIENT IS BACK IN BED. CALL LIGHT AND SIDE TABLE WITHIN REACH. NO OTHER NEEDS AT THIS TIME.
--- NOTE | 2020-06-30 23:06 | NUR ---
PT SLEEPING AT THIS TIME, NO NEW CONCERNS NOTED.
--- NOTE | 2020-06-30 23:50 | PATH ---
[facility] [address] [place], [place] [address] Signed ORDERING PHYSICIAN: Sammy ROACH, Bob Rico PATIENT NAME: HANK HER GENDER: F : 1965 Prior History: DATE CASE NUM ADEQUACY DIAGNOSIS HPV RESULTS PHYSICIAN The 5 most recent reports are included. This history does not include results of pap smears performed at another laboratory. SPECIMEN(S): No Source Given MOLECULAR PATHOLOGY RESULTS: SARS-CoV-2 Not Detected ADDITIONAL NOTES.: The Prichard Fusion SARS-CoV-2 Assay is a multiplex real-time PCR (RT-PCR) in vitro diagnostic test intended for the qualitative detection of RNA from SARS-CoV-2 from individuals who meet COVID-19 clinical and/or epidemiological criteria. In general, SARS-CoV-2 RNA can be detected during the acute phase of infection. Positive results indicate the presence of SARS-CoV-2 RNA. Clinical correlation with patient history and other diagnostic information is necessary to determine patient infection status. Positive results do not rule out bacterial infection or co-infection with other viruses. Negative results do not preclude SARS-CoV-2 infection and should not be used as the sole basis for patient management decisions. Negative results must be combined with other clinical observations, patient history, and epidemiological information. The Prichard Fusion SARS-CoV-2 Assay is not yet approved or cleared by the [place] FDA. When there are no FDA-approved or cleared tests available, and other criteria are met, FDA can make tests available under an emergency access mechanism called an Emergency Use Authorization (EUA). The EUA for this test is supported by the [place] of Health and Human Service's (HHS's) declaration that circumstances exist to justify the emergency use of in vitro diagnostics for the detection and/or diagnosis of the virus that causes COVID-19. This EUA will remain in effect for the duration of the COVID-19 declaration justifying emergency of IVDs, unless it is terminated or PATIENT NAME: HANK HER PATHOLOGY DATE OF : 61 REPORT #: [id number] PHYSICIAN: JAMARCUS TARANGO PCP: CAMRYN MA PA-C REPORT IS CONFIDENTIAL AND NOT TO BE RELEASED WITHOUT AUTHORIZATION [facility] [address] [facility] [place], [place] [address] Signed revoked by FDA, after which the test may no longer be used. The Prichard Fusion SARS-CoV-2 Assay is for use only under EUA in US laboratories certified under the Clinical Laboratory Improvement Amendments of 1988 (CLIA) to perform high complexity tests. [facility] is certified under CLIA to perform high complexity clinical laboratory testing. PERFORMING LABORATORY.: Molecular testing was performed by [facility] [place] [address] (Content Editor: Heriberto Calvo D.O.; CLIA#: [id number]) Diagnostician: System Interface Pathologist Electronically Signed 06/30/2020 Copies: ~ PATIENT NAME: HANK HER PATHOLOGY DATE OF : [birth year] REPORT #: [id number] PHYSICIAN: JAMARCUS TARANGO PCP: CAMRYN MA PA-C REPORT IS CONFIDENTIAL AND NOT TO BE RELEASED WITHOUT AUTHORIZATION
--- NOTE | 2020-07-01 01:04 | NUR ---
PT AT THIS TIME IS SLEEPING. NO NEW CONCERNS NOTED.
--- NOTE | 2020-07-01 03:57 | NUR ---
PT AT THIS TIME IS STILL SLEEPING. NO NEW CONCERNS NOTED AT THIS TIME.
--- NOTE | 2020-07-01 05:30 | NUR ---
V/S ARE WDL, OVERALL PT SEEMS A BIT MORE EDEMATOUS THIS MORNING THAN SHE DID AT START OF SHIFT. RLL HAD SOME CRACKLES PRESENT, ALL OTHER LOBES WERE CLEAR AND DIMINISHED. JAUNDICE PRESENT ALL OVER, ASCITIES PRESENT IN ABDOMEN. PERIPHEERAL EDEMA SOMEWHAT INCREASED THIS MORNING MENTIONED ABOVE. URINE OUTPUT IS JUST ADEQUATE OVERALL. PT BACK IN BED SLEEPING. PT AAOX4.
--- NOTE | 2020-07-01 05:41 | NUR ---
HELPED PT TO THE BATHROOM AND BACK TO BED WITH HER FWW. BEDSIDE TABLE AND CALL LIGHT IN REACH. EMPTIED GARBAGES. PT NEEDS NOTHING MORE AT THIS TIME.
--- NOTE | 2020-07-01 07:00 | NUR ---
Report from MISAEL Haq. Patient lying in bed. This nurse introduces self. Patient given menu to order breakfast. States she would also like to shower today. Denies other needs. Call light in reach, bed rails up X2.
--- NOTE | 2020-07-01 09:59 | NUR ---
PATIENT SAID SHE WOULD LIKE TO TAKE A SHOWER AROUND ELEVEN O CLOCK. SHE IS SET UP FOR A SHOWER. PATIENT IS NOW SLEEPING.
--- NOTE | 2020-07-01 11:06 | NUR ---
Assessment completed. Pain is currently tolerable. AM medications given, takes without difficulty. Denies other needs at this time. Call light in reach, Bed rails up X2.
--- NOTE | 2020-07-01 11:11 | NUR ---
Ambulating in rosales with PT at this time. IV converted to SL for PT and shower.
--- NOTE | 2020-07-01 13:18 | NUR ---
UPDATED ON PHONE OF REPORT FROM CCU KARLENE DOUGLAS THAT PT HAS BEEN IN SINUS RHYTHM SINCE MONITORING. NEW ORDER TO D/C AT THIS TIME
--- NOTE | 2020-07-01 13:58 | NUR ---
Sitting up in recliner. States pain is tolerable at this time, but she is sore. Family in room with patient. New bag of IV fluids initiated. Call light in reach.
--- NOTE | 2020-07-01 16:17 | NUR ---
PATIENT DID HER OWN SHOWER I DID STAY IN THE BATHROOM IN CASE SHE NEEDED ME. ALSO THIS MORNING WHILE PATIEN WAS WALKING WITH PT I FOLLOWED WITH THE WHEELCHAIR.
--- NOTE | 2020-07-01 16:34 | NUR ---
Sitting up in recliner, eyes closed and no signs of discomfort at this time. Call light in reach.
--- NOTE | 2020-07-01 17:01 | NUR ---
Worked with PT today. Up in chair for most of today. Labs improving. Pain controlled with scheduled medications. Family members in intermittently to see patient.
--- NOTE | 2020-07-01 19:30 | NUR ---
RECEIVED REPORT AT 1900, FOUND PT IN BED WITH FAMILY AT BEDSIDE. PT HAD NO NEEDS.
--- NOTE | 2020-07-01 20:23 | NUR ---
RESP THER ROUNDING NOTE. PT UP TO BATHROOM WITH GARMENT FOLDER ASSISTANCE. WHITE BOARD UPDATED. GARMENT FOLDER REMAINS IN ROOM WITH PT. FAMILY AT BEDSIDE.
--- NOTE | 2020-07-01 21:00 | NUR ---
V/S ARE WDL, PT IS AAOX4, PT HOWEVER IS STILL SLOW TO RESPOND AND SEEMS VERY FLAT IN AFFECT. NEW IV WAS STARTED DUE TO A LEAKING OLD ONE. UPPER LOBES WERE CLEAR, LOWER LOBES ARE VERY DIMINISHED. OVERALL HER EDEMA IS UNCHANGED FROM THIS MORNING. WILL CONTINUE TO MONITOR.
--- NOTE | 2020-07-01 23:05 | NUR ---
PT AT THIS TIME IS SLEEPING. NO NEW COCNERNS NOTED.
--- NOTE | 2020-07-02 01:06 | NUR ---
PT IS SLEEPING AT THIS TIME. NO NEW CONCERNS NOTED.
--- NOTE | 2020-07-02 03:39 | NUR ---
PT STILL SLEEPING AT THIS TIME. NO NEW CONCERNS NOTED.
--- NOTE | 2020-07-02 05:00 | NUR ---
SECOND ASSESSMENT WAS OVERALL THE SAME THE FIST. NO NEW CONCERNS WERE NOTED. URINE OUTPUT IS NOT GREAT BUT ADEQUATE SO FAR. PO INTAKE NEEDS TO IMPROVE OVERALL. EDEMA IS UNCHANGED, ALL LOBES WERE DIMINISHED AT THIS TIME.
--- NOTE | 2020-07-02 06:52 | NUR ---
PT IS SLEEPING AT THIS TIME. NO NEW CONCERNS NOTED.
--- NOTE | 2020-07-02 07:48 | NUR ---
REPORT RECEIVED FROM MASHA DOUGLAS, CONSTRUCTION TEACHER. WHITE BOARD UPDATED. ALL QUESTIONS ANSWERED. PATIENT AWAKE LYING IN BED. NEW IVF BAG SCANNED AND INFUSING INTO RAC IV. REPORTS NO PAIN AT THIS TIME. ENCOURAGED TO CALL WHEN SHE NEEDS ANYTHING.
--- NOTE | 2020-07-02 08:08 | NUR ---
SBA WITH FWW TO BATHROOM. PATIENT REPORTS SHE DOES NOT HAVE ANY SPUTUM WITH OCCASIONAL COUGHING. SLOW, STEADY GAIT. BLINDS OPENED IN ROOM. BELONGINGS WITHIN REACH. CALL LIGHT NEXT TO PATIENT.
--- NOTE | 2020-07-02 09:57 | NUR ---
PATIENT IS IN CHAIR IN ROOM. VITALS AND I&O ARE DONE. CALL LIGHT WITHIN REACH. NO OTHER NEEDS AT THIS TIME.
--- NOTE | 2020-07-02 10:15 | NUR ---
ASSISTED PATIENT FROM BATHROOM TO CHAIR. BILAT LEGS ELEVATED. PLAN TO DISCHARGE LATER TODAY. IV SALINE LOCKED.
--- NOTE | 2020-07-02 10:45 | NUR ---
WORKING WITH PHYSICAL THERAPY NOW.
--- NOTE | 2020-07-02 11:53 | NUR ---
SPOKE WITH DR CAMP REGARDING PATIENTS DISCHARGE. PATIENT LIVES WITH SISTER AND UBALDO AND HAS HELP DAILY AT HOME. PATIENT IS UP AND ABLE TO AMBULATE. THEY DO NOT FORSEE NEED FOR FURTHER THERAPY SHE IS BASELINE. SHE HAS WALKER AND ALL NEEDED EQUIPMENT AT HOME, THEY HAVE DISCUSSED POSSIBLE SHOWER CHAIR. FAMILY IS LOOKING INTO THIS. NO KNOWN NEEDS FROM CASE MANAGEMENT AT THIS TIME FOR SAFE DISCHARGE.
== END 2020-07-02 11:55 | disposition home or self-care (01) | DRG 683 ==
LOC: ED 16:02 → CCU 20:29 → MS 06-30 13:55
PROVIDERS: ADMIT Internal Medicine; ATTEND Internal Medicine
DX: N17.9 Acute kidney failure, unspecified (principal); C64.9 Malignant neoplasm of unspecified kidney, except renal pelvis; C78.7 Secondary malignant neoplasm of liver and intrahepatic bile duct; C79.31 Secondary malignant neoplasm of brain; Z20.828 Contact with and (suspected) exposure to other viral communicable diseases; E86.0 Dehydration; E16.2 Hypoglycemia, unspecified; E03.9 Hypothyroidism, unspecified; I10 Essential (primary) hypertension; E78.5 Hyperlipidemia, unspecified; R56.9 Unspecified convulsions; Z91.81 History of falling; Z86.711 Personal history of pulmonary embolism; Z79.899 Other long term (current) drug therapy; Z79.01 Long term (current) use of anticoagulants; Z85.72 Personal history of non-Hodgkin lymphomas; Z79.891 Long term (current) use of opiate analgesic; Z79.52 Long term (current) use of systemic steroids
CPT/HCPCS: 36415; 71045; 80048; 80053; 81001; 82140; 83605; 83690; 83735; 84100; 85025; 85610; 93005; 93010; 96361; 96374; 97110; 97116; 97162; 97165; 99285-25; C9803; J3475; J3480; J7030

== ENCOUNTER 2020-09-25 22:19 | Observation (INO) | payer OTHER ==
[~2020-09-25] VITALS: Ht 157.5 cm; Wt 76.7 kg
[~2020-09-25 22:19] MED LIST changes: +DEXAMETHASONE4 MG PO
--- OUTSIDE RECORDS SUMMARY | 2020-09-25 22:22 | XMS ---
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 E.DJayson VISIT COUNT (12 MO.) [address] [place] [address] [place] TOTAL 7 NOTE: Visits indicate total known visits. ED/UCC VISIT TRACKING (12 MO.) 09/25/2020 22:20 [place] [place] TYPE: Emergency COMPLAINT: - MULTIPLE COMPLAINTS 2020 16:02 [place] [place] TYPE: Emergency COMPLAINT: - ALTERED LOC 06/05/2020 11:06 [facility] [place] TYPE: Emergency COMPLAINT: - SEIZURE DIAGNOSES: - Pure hypercholesterolemia, unspecified - Malignant neoplasm of unspecified kidney, except renal pelvis - half-way (current) use of opiate analgesic - Unspecified convulsions - Hypothyroidism, unspecified - Other watermelon harvesting supervisor (current) drug therapy - Secondary malignant neoplasm of brain 05/06/2020 11:58 [facility] [place] TYPE: Emergency COMPLAINT: - WEAKNESS 02/22/2020 22:48 [facility] [place] TYPE: Emergency COMPLAINT: - STROKE SYPMTOMS DIAGNOSES: - Hypothyroidism, unspecified - Malignant neoplasm of unspecified kidney, except renal pelvis - Other half-way (current) drug therapy - Secondary malignant neoplasm of brain - Facial weakness 11/21/2019 12:12 [facility] TYPE: Emergency DIAGNOSES: 54046. AMR 33 [id number]. Hypotension, unspecified 49712. Acute kidney failure, unspecified 11/04/2019 19:37 [place] [place] TYPE: Emergency COMPLAINT: - POTASSIUM PROBLEM DIAGNOSES: - half-way (current) use of opiate analgesic - Hypothyroidism, unspecified - Hyperkalemia - Other watermelon harvesting supervisor (current) drug therapy INPATIENT VISIT TRACKING (12 MO.) 2020 20:29 [facility] [place] TYPE: Medical Surgical COMPLAINT: - ACUTE KIDNEY INJURY DIAGNOSES: - Hypoglycemia, unspecified - Other half-way (current) drug therapy - Essential (primary) hypertension - Acute kidney failure, unspecified - Personal history of non-Hodgkin lymphomas - Secondary malignant neoplasm of brain - exterminator helper termite (current) use of opiate analgesic - half-way (current) use of systemic steroids - Hypothyroidism, unspecified - Malignant neoplasm of unspecified kidney, except renal pelvis - exterminator helper termite (current) use of anticoagulants - Contact with and (suspected) exposure to other viral communicable diseases - Secondary malignant neoplasm of liver and intrahepatic bile duct - Personal history of pulmonary embolism - Hyperlipidemia, unspecified - Unspecified convulsions - History of falling - Dehydration 05/06/2020 11:59 [facility] [place] TYPE: Observation COMPLAINT: - DEHYDRATION DIAGNOSES: - exterminator helper termite (current) use of anticoagulants - Gastro-esophageal reflux disease without esophagitis - Personal history of pulmonary embolism - Tachycardia, unspecified - Hypothyroidism, unspecified - Other half-way (current) drug therapy - Malignant neoplasm of unspecified kidney, except renal pelvis - Acute kidney failure, unspecified - Contact with and (suspected) exposure to other viral communicable diseases - Dehydration 11/21/2019 12:12 [facility] TYPE: General Medicine DIAGNOSES: 77207. Wedge compression fracture of second lumbar vertebra, initial encounter for closed fracture 06432. Hyperuricemia without signs of inflammatory arthritis and tophaceous disease 17820. Malignant neoplasm of left kidney, except renal pelvis 09236. Anemia, unspecified 71986. Hypothyroidism, unspecified 49754. Hypercalcemia 14650. Hyperkalemia 22672. Acute kidney failure, unspecified 70129. Hypotension, unspecified 35306. Thyrotoxicosis, unspecified without thyrotoxic crisis or storm 42846. Wedge compression fracture of first lumbar vertebra, initial encounter for closed fracture 34806. Malignant neoplasm of unspecified kidney, except renal pelvis [email or web address]
--- NOTE | 2020-09-26 01:00 | NUR ---
PT TO ROOM 116 VIA STRETCHER AND ED NURSE. 4 PERSON ASSIST TO TRANSFER FROM STRETCHER TO BED. PT ALERT AND RESPONSIVE ANSWERING QUESTIONS APPROPRIATELY. ORDERS RECEIVED. IV DRIP DC'D. PT REMOVED OWN OXYGEN AND DID NOT WISH TO PUT IT BACK ON WHEN ASKED BY MULTIPLE STAFF. HAGEN PATENT. PT DENIES PAIN OR NAUSEA. DENIES DIFFICULTY BREATHING. RR EVEN AND UNLABORED. PT ABLE TO ASSIST IN REPOSITIONING SELF TO RIGHT SIDE WITH PILLOWS. WARM BLANKETS PROVIDED. VISITORS X 3 IN ROOM. PT AND VISITORS ORIENTED TO ROOM AND NURSE CALL LIGHT. NO QUESTIONS OR CONCERNS AT THIS TIME.
--- NOTE | 2020-09-26 01:30 | NUR ---
FAMILY EXPRESSED CONCERN THAT PT HAD NOT TAKEN HER USUAL PAIN MEDICATION FOR "BACK PAIN". PT AGREED TO TAKE PRN FOR PAIN. OFFERED IV MORPHINE THAT WAS WHAT WAS ORDERED. FAMILY MENTIONED THAT THE PT'S CHILDREN DID NOT WANT PT TO HAVE MORPHINE. PT REPORTS OXYCODONE USE AT HOME AND FELT LIKE SHE COULD "SWALLOW A PILL". DR. DORAN CALLED. NEW TELEPHONE ORDERS RECEIVED VERIFIED WITH READ BACK METHOD. PRN ADMINISTERED WITH SIPS OF WATER. NO SWALLOWING ISSUES NOTED. PIV IN PT LEFT WRIST PULLED WHEN PT REPOSITIONING SELF IN BED. TIP INTACT. SITE COVERED WITH GAUZE. PT CLEANED UP AND LINENS CHANGED. BLANKETS AND PILLOWS PROVIDED FOR FAMILY WELL COFFEE AND WATER.
--- NOTE | 2020-09-26 03:18 | NUR ---
PATIENT ALERT AND RESPONSIVE. ASSISTED TO REPOSITION IN BED WITH PILLOWS. WATER PROVIDED. PT AGREES SHE IS COMFORTABLE AT THIS TIME. FAMILY REMAINS IN ROOM. NO FURTHER NEEDS.
--- NOTE | 2020-09-26 04:30 | NUR ---
PT RESTING ON LEFT SIDE. AWAKENS WHEN THIS RN ENTERS ROOM. DENIES PAIN OR SOB AT THIS TIME. FAMILY IN ROOM.
--- NOTE | 2020-09-26 05:26 | NUR ---
CALL LIGHT ANSWERED. PT REPORTS SHE FEELS LIKE SHE NEEDS TO VOID. HAGEN WITH 10 ML CONCENTRATED URINE. BLADDER SCANNED FOR 175 ML. PT AND HAGEN CATH REPOSITIONED. SIPS OF WATER PROVIDED. BLE MOTTLED. FINGER TIPS CYANOTIC. RESPIRATIONS 36. PT DENIES PAIN OR AIR HUNGER. FAMILY IN ROOM. NO FURTHER NEEDS.
--- NOTE | 2020-09-26 06:51 | NUR ---
PT REQUESTING HAGEN CATH BE REMOVED. HAGEN REMOVED. CUATE CARE DONE. UP TO BSC WITH 3PA AND GAIT BELT. PT ABLE TO BEAR WEIGHT AND PIVOT TX. PT INCONTINENT OF LOOSE STOOL BUT UNABLE TO VOID. CUATE CARE DONE BY STAFF. CLEAN BRIEF PLACED. BACK TO BED, CHITRA POOR. PT REQUESTING OXYGEN. 15L/NRB PLACED. RESPIRATIONS 36. HOB ELEVATED. EDUCATION PROVIDED TO FAMILY REGARDING MORPHINE USE TO REDUCE RESPIRATORY EFFORT. FAMILY RECEPTIVE. 1MG MORPHINE ADMINISTERED. PT STATES "I FEEL BETTER". FAMILY/PT DENY FURTHER NEEDS AT THIS TIME.
--- NOTE | 2020-09-26 07:27 | NUR ---
Patient resting in bed, alert and oriented x4. Patient reports her pain and breathing efforts have improved since most recent dose of morphine. Family members at bedside visiting. No needs reported at this time. Encouraged patient and family to call if they have any needs. Patient is currently on room air, respirations are non labored at this time. Patient's skin is dusky.
--- NOTE | 2020-09-26 07:38 | EKG ---
[facility] [address] [facility] [place], [place] [address] Signed Sinus tachycardia Left axis deviation Pulmonary disease pattern Inferior infarct (cited on or before 04-NOV-2019) Abnormal ECG When compared with ECG of 29-JUN-2020 16:11, QRS voltage has decreased Confirmed by LO CAMP MD ([id number]) on 09/26/2020 7:37:45 AM Electronically Signed By: LO CAMP MD 09/26/20 0738 PATIENT NAME: HANK HER ANTWAN Electrocardiogram DATE OF : 61 PHYSICIAN: LO CAMP MD REPORT #: [id number] REPORT IS CONFIDENTIAL AND NOT TO BE RELEASED WITHOUT AUTHORIZATION
--- NOTE | 2020-09-26 08:39 | NUR ---
Patient resting on right lateral side. No notable distress, respirations are non labored. Family reports patient appears comfortable to them. No needs at this time. Bereavement tray ordered at this time.
--- NOTE | 2020-09-26 09:30 | NUR ---
PATIENT CALLED FOR ASSISTANCE TO BSC. 2PA WITH OTHER AIDE. PATIENT BECAME VERY WINDED DURING TRANSFER, ASKED FOR O2. PATIENT A LITTLE PAINFUL, PROCESS TREATER NOTIFIED. PATIENT TUCKED BACK IN BED. CALL LIGHT IN REACH
--- NOTE | 2020-09-26 10:05 | NUR ---
Met with patient and her son this morning. Pt reports that her pain is being managed well, she feels like the staff members are doing a good job taking care of her. She nor her son have any complaints, requests, or concerns at this time.
--- NOTE | 2020-09-26 10:38 | NUR ---
In to check on patient. Patient resting in bed, oxygen removed and sitting on top of patient's head. This RN asked patient if she was having difficulty breathing, pt replied "no". Patient reports she is aware her oxygen is placed on her head. Patient declined oxygen at this time from this RN. Patient appears comfortable. Patient denies pain medication at this time. Family at bedside verbalized there are no current needs. Call light within reach. Coffee/water at bedside.
--- NOTE | 2020-09-26 10:56 | NUR ---
OFFERED THE FAMILY MORE CHAIRS AND FOR NOW THEY ARE FINE. THEY WILL LET US KNOW IF THEY NEED ANYTHING.
--- NOTE | 2020-09-26 11:33 | NUR ---
In to check with patient. Patient in bed resting, on room air, respirations 26/min. Patient continues to declined oxygen use. Patient declining pain/anxiety medications as well. Family at bedside. No reported needs. Patient repors she is comfortable at this time. Personal supplies and call light within reach.
--- NOTE | 2020-09-26 14:22 | NUR ---
CONNECTED WITH PTS' FATHER IN RM. HE SEEMS REALISTIC ABOUT PT'S CONDITION. SAID SHE NEVER COMPLAINS-HAS BEEN FIGHTING THIS FOR MANY YEARS. TRYING TO BE STRONG FOR HIS FAMILY. ENTERED PT'S -SHE IS SLEEPING, OTHER FAMILY IN . FEEL CONFIDENT THAT THEY KNOW PT'S POC AND FEEL SHE IS COMFORTABLE AT THE MOMENT. LEFT G.POST AND BLESSING. WILL FOLLOW
--- NOTE | 2020-09-26 15:24 | NUR ---
In to check on patient. Patient continues to rest, respiration 34/min. Patient appears comfortable, no distress noted. Family at bedside and reports they feel patient is comfortable at this time and does not need any medications. Coffee and water replenished. No needs at this time. Personal supplies and call light within reach.
--- NOTE | 2020-09-26 16:00 | NUR ---
2PA BEDBATH FOR PATIENT. ROOM TIDIED. BRIEF IS DRY. MOUTH SWABS AT BEDSIDE.
--- NOTE | 2020-09-26 17:05 | NUR ---
Patient resting, eyes closed, respirations 30/min, appears a bit more shallow. Patient appears comfortable. No notable air hunger, pt is on room air. Family remains at bedside. No needs at this time. Personal supplies and call light within reach. Family declines needs.
--- NOTE | 2020-09-26 17:59 | NUR ---
Pt. is on comfort care only. Pt. family has been with her all day. 2 CNAs gave pt. bed bath, changed linens and gown. picked up room. no other needs at this time. call light with in reach
--- NOTE | 2020-09-26 19:40 | NUR ---
SHIFT REPORT FROM NURSE JEAN. PT RESTING, EVEN BREATHING. MULTIPLE FAMILY MEMBERS IN ROOM. FAMILY DENIES NEEDS AT THIS TIME.
--- NOTE | 2020-09-26 20:33 | NUR ---
ROUNDED CHARGE. ASSISTED PRIMARY RN TO REPOSITION pt TO RIGHT SIDE WITH PILLOWS. ATTENDS DRY AT THIS TIME. FAMILY IN ROOM, FAMILY DENIES ANY NEEDS AT THIS TIME. pt WITH EYES CLOSED, BREATHING LABORED AFTER REPOSTIONING. PRIMARY RN TO MEDICATE pt AT THIS TIME.
--- NOTE | 2020-09-26 20:38 | NUR ---
IN ROOM TO CHECK PT DEPENDS. PT REMAINS DRY IN DEPENDS. REPOSITIONED PATIENT TO A SLIGHT RIGHT TILT. PT DID FURROW BROW AND MAKE FACIAL INDICATIONS THAT THE REPOSITIONING WAS PAINFUL. PT'S FAMILY NOTED THAT PT HAS BEEN APPEARING MORE RESTLESS SO REQUEST PRN PAIN MEDS. PRN MORPHINE 2MG IV ADMINISTERED. ORAL CARE PERFORMED, CHAPSTICK APPLIED TO LIPS. NO FURTHER APPARENT NEEDS AT THIS TIME. PT'S FAMILY TO NOTIFY THIS NURSE OF NEEDS.
--- NOTE | 2020-09-26 22:33 | NUR ---
CHECKED ON PT. WORK OF BREATHING REMAINS INCREASED; PT REMAINS DROWSY. PT'S SISTER SLEEPING IN RECLINER AT BEDSIDE. PT'S SISTER AWAKES THIS NURSE ENTERS ROOM. WILL CONTINUE TO MONITOR.
--- NOTE | 2020-09-27 00:59 | NUR ---
IN ROOM WITH MANUFACTURING ENGINEERING DIRECTOR TO REPOSITION PATIENT AND ADMINISTER 2MG MORPHINE. PT CONTINUES TO BE DRY IN DEPENDS. PT REPOSITIONED TO LEFT TILT. PT AWAKES BRIEFLY WITH REPOSITIONING, MUMBLES INAUDIBLY, MOANS DURING TURNING. PT'S SISTER SLEEPING ON COUCH IN ROOM.
--- NOTE | 2020-09-27 02:35 | NUR ---
CHECKED ON PT. PT SLEEPING, EYES CLOSED, EVEN UNLABORED BREATHING. WORK OF BREATHING IMPROVED. PT'S SISTER AWAKES THIS NURSE ENTERS ROOM. PT APPEARS TO BE COMFORTABLE AT THIS TIME. WILL CONTINUE TO MONITOR.
--- NOTE | 2020-09-27 05:26 | NUR ---
IN TO CHECK ON PT. PT WORK OF BREATHING INCREASED, PT DID NOT RESPOND TO ORAL CARE. 2MG IV MORPHINE ADMINISTERED AT THIS TIME D/T INCREASED WORK OF BREATHING. DISCUSSED WITH PT'S SISTER WHO AGREED TO MEDS AT THIS TIME. PT'S SISTER AT BEDSIDE. WILL CONTINUE TO MONITOR.
--- NOTE | 2020-09-27 07:30 | NUR ---
REPORT RECEIVED FROM KIKO. PT HAS BEEN RECEIVING PAIN MEDICATION AND Q3H TURN. PT VERBALLY UNRESPONSIVE IN LATER HALF OF SHIFT. PROCEEDING WITH CURRENT COMFORT CARE. FAMILY REMAINS IN ROOM W/ PT.
--- NOTE | 2020-09-27 08:30 | NUR ---
IN TO REPOSITION PT AND GIVE 3 MG IV MORHPINE. PT REPOSITIONED FROM BACK TO LEFT SIDE W/ PILLOWS. PT VERBALLY UNRESPONSIVE, DOES NOT OPEN EYES TO SOUND OR TOUCH. WOB AND RR INCREASED. FAMILY IN ROOM WITH PT. REFRESHED ICE WATER PITCHER PER REQUEST. ASKED IF FMAILY WOULD LIKE TO SEE PASTORAL CARE THIS AM, FAMILY AGREED. NO OTHER NEEDS AT THIS TIME.
--- NOTE | 2020-09-27 09:10 | NUR ---
MED REC COMPLETE
--- NOTE | 2020-09-27 09:13 | NUR ---
DR. CAMP CONFIRMED PT HAS @ 0957 WITH FAMILY IN ROOM. WILL NOTIFY PASTORAL CARE. FAMILY GIVEN TIME WITH PT.
--- NOTE | 2020-09-27 10:00 | NUR ---
PASTORAL CARE HAS BEEN IN TO SEE PT AND FAMILY. RAC IV REMOVED. PT REPOSITIONED ON BACK AND AWAITING MORTICIAN ARRIVAL.
--- NOTE | 2020-09-27 11:15 | NUR ---
ASSISTED PASTORAL CARE IN PREPARING PT TO DEPART [facility] TO [facility]. PT FAMILY DEPARTED PRIOR TO. PT BELONGINGS SENT WITH FAMILY.
--- NOTE | 2020-09-27 11:31 | NUR ---
NOTIFIED BY [facility] WILL OF PT'S PASSING. FAMILY IN RM AND STANDING IN HALLWAY. ENTERED RM, MET WITH FAMILY, GAVE COMFORT, GUIDANCEHAD PRAYER WITH FAMILY. FAMILY REQUESED TIME TO MAKE DECISIONS-INFORMED THEM OF WHAT WAS NEEDED BY STAFF TO ASSIST. GAVE FAMILY TIME, WHEN READY DECIDED TO USE [employer]. PT IS TO BE CREMATED. FAMILY REMAINED UNTIL ARRIVAL OF MORTICIAN. RNS KRISTIAN MARTINEZ AND [facility] WILL ASSISTED IN TRANSFER OF BODY TO STRETCHER. THEY WERE VERY RESPECTFUL AND UNDERSTOOD SACREDNESS OF WHAT WE WERE DOING. ESCORTED BODY TO VEHICLE, EXCHANGED PAPERWORK
== END 2020-09-27 09:13 ==
LOC: ED 22:19 → MS 22:21
PROVIDERS: ADMIT Internal Medicine; ATTEND Internal Medicine
DX: J96.01 Acute respiratory failure with hypoxia (principal); J18.9 Pneumonia, unspecified organism; J91.8 Pleural effusion in other conditions classified elsewhere; A41.9 Sepsis, unspecified organism; C64.9 Malignant neoplasm of unspecified kidney, except renal pelvis; C78.7 Secondary malignant neoplasm of liver and intrahepatic bile duct; C79.31 Secondary malignant neoplasm of brain; Z66 Do not resuscitate; E16.2 Hypoglycemia, unspecified; N17.9 Acute kidney failure, unspecified; D69.6 Thrombocytopenia, unspecified; D64.9 Anemia, unspecified; E03.9 Hypothyroidism, unspecified; E78.5 Hyperlipidemia, unspecified; R56.9 Unspecified convulsions; I25.2 Old myocardial infarction; Z51.5 Encounter for palliative care; Z85.72 Personal history of non-Hodgkin lymphomas; Z87.311 Personal history of (healed) other pathological fracture; Z86.711 Personal history of pulmonary embolism; Z79.01 Long term (current) use of anticoagulants; Z92.3 Personal history of irradiation; Z20.822 Contact with and (suspected) exposure to COVID-19; Z79.899 Other long term (current) drug therapy
CPT/HCPCS: 51702; 71045; 80053; 81001; 83605; 83735; 84100; 85025; 85610; 93005; 93010; 96375; 96376; 99285-25; C9803; G0378; J2270; J2543; J7121; U0003